=== PATIENT | male | born 1945 | race Caucasian/White ===

== ENCOUNTER 2022-11-19 08:33 | Outpatient (OUT) | payer MEDICARE, OTHER, SELFPAY ==
--- NOTE | 2022-11-19 08:50 | CT_ITS ---
The [address] [address] Patient Name: KIMMY MCARTHUR MRN: [id number] date: 1945 Sex: M Assigned Patient Location: CT Current Patient Location: CT Accession/Order Number: [id number] Exam Date: 11/19/2022 08:43 Report Date: 11/19/2022 11:11 At the request of: TIMOTEO AWAN Procedure: CT lung screening low-dose EXAMINATION: CT lung screening low-dose HISTORY: History Of Tobacco Dependence Z87.891 COMPARISON: 01/06/2022, 2016 TECHNIQUE: Axial, Coronal, and Sagittal images were created without the administration of IV contrast material. Dose reduction techniques were achieved by using automated exposure control and/or adjustment of mA and/or kV according to patient size and/or use of iterative reconstruction technique. FINDINGS: LUNGS: Moderate diffuse centrilobular and mild paraseptal emphysema. Scattered punctate pulmonary nodules the largest having both a solid and groundglass component measuring 6.9 x 5.5 mm in the right middle lobe axial image 113, grossly stable accounting for differences in slice selection from the 2017 exam. No significant new pulmonary nodule or mass PLEURA: No mass, effusion, or pneumothorax. VASCULATURE: No abnormality. RAE: No mass or pathologic adenopathy. MEDIASTINUM: No mass or pathologic adenopathy. CARDIAC: No enlargement or pericardial effusion. Moderate coronary atherosclerosis. Calcifications in contour deformity along the posterior left ventricle, grossly stable from the prior exam measuring 3.2 cm likely representing remote infarct. AORTA: No aortic aneurysm. Extensive atherosclerosis CHEST WALL: No mass or axillary adenopathy BONES: No bone lesion or fracture. LIMITED ABDOMEN: Surgical clips from cholecystectomy. 2 cm soft tissue density medial upper left renal pole, July 10, 2021 indeterminate previously. Cyst OTHER: Negative. CT/CT lung screening low-dose IMPRESSION: Stable emphysema and subcentimeter pulmonary nodules LUNG SCREENING: Lung-RADS Category 2- Benign Appearance or Behavior. Nodules with a very low likelihood of becoming a clinically active cancer due to size or lack of growth. 2. Continue annual screening with LDCT in 12 months. Electronically authenticated by: MIGUEL PLASCENCIA Date: 11/19/2022 11:11
== END 2022-11-19 08:34 | disposition home or self-care (01) ==
LOC: CT 08:33
PROVIDERS: PCP Nurse Practitioner; Visit Provider Nurse Practitioner
DX: Z87.891 Personal history of nicotine dependence (principal)
CPT/HCPCS: 71271

== ENCOUNTER 2022-12-13 12:24 | Outpatient (OUT) | payer MEDICARE, OTHER, SELFPAY ==
[2022-12-13 12:41] LABS: Basophils Percent Auto 0.7 % (0.2-2.0); Eosinophils Absolute Auto 0.3 10^3/uL (0.0-0.7); Eosinophils Percent Auto 4.9 % (0.9-7.0); Hematocrit 36.5 % (42.0-54.0); Hemoglobin 12.3 g/dL (14.0-18.0); Immature Granulocytes Abs Auto 0.03 10^3/uL (0.00-0.03); Immature Granulocytes Pct Auto 0.5 % (0.0-0.5); Lymphocytes Absolute Auto 1.5 10^3/uL (1.2-3.8); Lymphocytes Percent Auto 26.3 % (20.5-60.0); Mean Corpuscular HGB Conc 33.7 g/dL (29.9-35.2); Mean Corpuscular Hemoglobin 31.1 pg (25.9-34.0); Mean Corpuscular Volume 92.2 fL (80.0-94.0); Mean Platelet Volume 9.9 fL (9.5-13.5); Monocytes Absolute Auto 0.4 10^3/uL (0.3-0.8); Monocytes Percent Auto 6.6 % (1.7-12.0); Neutrophils Absolute Auto 3.5 10^3/uL (1.4-6.5); Platelet Count 147 10^3/uL (150-450); Red Blood Count 3.96 10^6/uL (4.70-6.10); Red Cell Distribution Width 12.9 % (11.0-15.0); White Blood Count 5.7 10^3/uL (4.0-11.0)
[2022-12-13 13:15] LABS: Estimated Average Glucose 166 mg/dL; Glycohemoglobin A1C 7.4 % (4.5-6.2)
[2022-12-13 13:36] LABS: Free T4 0.88 ng/dL (0.76-1.46)
[2022-12-13 13:41] LABS: Alanine Aminotransferase 23 U/L (16-63); Albumin Globulin Ratio 1.1; Albumin Level 3.4 g/dL (3.4-5.0); Alkaline Phosphatase 101 U/L (46-116); Anion Gap 10.7; Aspartate Amino Transferase 13 U/L (15-37); BUN Creatinine Ratio 21.3; Bilirubin Total 0.5 mg/dL (0.2-1.0); Calcium 8.5 mg/dL (8.5-10.1); Carbon Dioxide 27.7 mmol/L (21.0-32.0); Chloride 103 mmol/L (98-107); Estimated GFR (African America >60 (>=60); Estimated GFR (Non-African Ame >60 (>=60); Glucose 206 mg/dL (74-106); Potassium 4.4 mmol/L (3.5-5.1); Sodium 137 mmol/L (136-145); Thyroid Stimulating Hormone 2.277 uIU/mL (0.358-3.740); Total Protein 6.4 g/dL (6.4-8.2)
== END 2022-12-13 12:25 | disposition home or self-care (01) ==
LOC: LAB 12:25
PROVIDERS: PCP Nurse Practitioner; Visit Provider Nurse Practitioner
DX: E11.9 Type 2 diabetes mellitus without complications (principal); R53.83 Other fatigue; D64.9 Anemia, unspecified
CPT/HCPCS: 36415; 80053; 83036; 83540; 84439; 84443; 85025

== ENCOUNTER 2022-12-13 12:54 | Outpatient (OUT) | payer MEDICARE, OTHER, SELFPAY ==
--- NOTE | 2022-12-13 13:51 | CA_ITS ---
Patient: KIMMY MCARTHUR Exam Date: 12/13/2022 : 1945 Gender:M Ordering : MARCO CONDON Admission #: [id number] Family : ELO Boyce [facility] Order #: [id number] CLICK HERE TO VIEW EXAM ECHOCARDIOGRAM REPORT PROCEDURE: CA ECHO DOPPLER COMPLETE INDICATIONS: Nonrheumatic Mitral valve regurgitation COMPARISON: None. DESCRIPTION: COMPLETE ECHOCARDIOGRAM Real-time transthoracic echocardiography with 2D, M-mode, spectral and color flow Doppler performed. QUALITY: Technical quality was good. LEFT VENTRICLE: Mild dilatation. Proximal septal hypertrophy (sigmoid septum). LV EF: Global left ventricular systolic function is normal; visually estimated ejection fraction is 55 to 60%. The basal inferior, inferolateral and anterolateral vasquez are akinetic and aneurysmal. DIASTOLIC: Grade 2, moderate diastolic dysfunction. ATRIAL SEPTUM: Inadequately seen. LEFT ATRIUM: Severe dilatation. RIGHT ATRIUM: Mild dilatation. RIGHT VENTRICLE: Normal chamber size. Normal right ventricular systolic function. TRICUSPID VALVE: Normal mobility and thickness. Mild to moderate regurgitation. Mild pulmonary hypertension. RVSP 43mmHg MITRAL VALVE: Normal mobility and thickness. No evidence of mitral valve stenosis. Mild mitral annular calcification. Moderate mitral regurgitation. AORTIC VALVE: Normal trileaflet appearance. No visible sclerosis. Normal leaflet mobility. No evidence of aortic valve stenosis. No aortic regurgitation. AORTIC ROOT: Normal diameter and appearance. PULMONIC VALVE: Normal thickness and mobility. No stenosis. No regurgitation. PERICARDIUM: No evidence of pericardial effusion. IVC: Collapses with inspirations. Mild dilatation measuring 2.4cm. CONCLUSION: 1. Global ventricular systolic function is normal; visually estimated ejection fraction is 55 to 60% 2. Segmental wall motion abnormalities are seen 3. Grade 2, moderate diastolic dysfunction 4. Biatrial enlargement 5. Right ventricle is normal in size and systolic function 6. Mild to moderate tricuspid regurgitation; right ventricular systolic pressure is mildly elevated 7. Moderate mitral regurgitation Adult Echocardiography Procedure Report Left Ventricle LVEDD (3.7 - 5.6 cm): 5.86 cm LVESD (2.2 - 4.0 cm): 5.18 cm LVIVS thickness (0.6 - 1.2 cm): 1.38 cm LVPW thickness (0.5 - 1.0 cm): 0.91 cm e': 0.09 m/s E - e': 9.59 LVOT Max Gradient: 2.93 mm[Hg] LVOT Area (cm2): 0.86 m/s Peak Velocity (LVOT): 0.86 m/s Mean Velocity (LVOT): 0.62 m/s LVOT Diameter 1.90 cm Left Ventricular Ejection Fraction: 62.02 % Left Atrium LA Volume Index (2D A2C): 52.24 ml/m2 Left Atrium Systolic Dimension: 4.25 cm Mitral Valve MV E to A Ratio: 0.96 Mitral Valve A-Wave Peak Velocity: 0.86 m/s Mitral Valve E-Wave Peak Velocity: 0.83 m/s Right Ventricle RV Internal Diastolic Dimension: 3.37 cm Aorta AO Root Diam: 3.40 cm Ascending Ao Diam: 2.99 cm Aortic Valve AoV Area (Peak Jeramy): 1.92 cm2, 1.92 cm2 AoV Area (VTI): 1.84 cm2, 1.84 cm2 Peak Velocity(Antegrade Flow): 1.26 m/s Peak Gradient(Antegrade Flow): 6.34 mm[Hg] Mean Velocity(Antegrade Flow): 0.89 m/s Mean Gradient(Antegrade Flow): 3.58 mm[Hg] Velocity Time Integral: 35.54 cm Tricuspid Valve Peak Velocity (Regurgitant Flow): 2.78 m/s, 2.83 m/s, 2.96 m/s Pulmonic Valve Mean Gradient: 1.88 mm[Hg], 1.32 mm[Hg] Mean Velocity: 0.64 m/s, 0.54 m/s Peak Velocity: 0.84 m/s Peak Gradient: 3.52 mm[Hg], 2.16 mm[Hg] Right Atrium Right Atrium Systolic Pressure: 51.87 ml, 51.87 ml Dictated by: Natasha Campo M.D. on 12/17/2022 at 14:16 Approved by: Natasha Campo M.D. on 12/17/2022 at 14:45
== END 2022-12-13 12:55 | disposition home or self-care (01) ==
LOC: CARD 12:55
PROVIDERS: PCP Nurse Practitioner; Visit Provider Nurse Practitioner
DX: I34.0 Nonrheumatic mitral (valve) insufficiency (principal); I08.1 Rheumatic disorders of both mitral and tricuspid valves
CPT/HCPCS: 93306; 93356

== ENCOUNTER 2023-01-12 06:26 | Outpatient (OUT) | payer MEDICARE, OTHER, SELFPAY ==
--- NOTE | 2023-01-12 06:15 | NM_ITS ---
Patient: KIMMY MCARTHUR Exam Date: 01/12/2023 : 1945 Gender:M Ordering : DR JING CAMPO M.D. Admission #: [id number] Family : ELO Boyce [facility] Order #: [id number] CLICK HERE TO VIEW EXAM RADIOLOGY REPORT PROCEDURE: NM TONE PERF SPECT REST STR COMPARISON: None. INDICATIONS: CORONARY ARTERY DISEASE TECHNIQUE: Exam Description: Stress/Rest one day protocol gated SPECT Rest Imagin.1 mCi Tc-99m Cardiolite IV on 01/12/2023 Stress Imaging 30.9 mCi Tc-99m Cardiolite IV on 01/12/2023 Exercise Protocol: 0.4 mg Lexiscan given IV Heart Rate (bpm): Rest: 54 Max: 77 PMHR: 53 Blood Pressure: Rest: 114/68 Max: 128/66 Symptoms: Rest and peak stress ECG findings were normal and the exercise portion of the study was normal per attending physician Dr. Campo . For more details please see separate cardiac stress test report. FINDINGS: QUALITY OF STUDY: Good. PERFUSION DEFECT: LOCATION: Basal inferior. Mid-inferior. Apical inferior. SIZE: Medium (3-4 segments). SEVERITY: Moderate. TYPE: Mixed. WALL MOTION: Mild hypokinesis: LV SIZE: Enlarged; EDV 127 mL. TID / TCD: None; 0.9 LVEF: Abnormal. Calculated EF 52%. SUMMARY: Myocardial perfusion imaging study has ABNORMAL findings. CONCLUSION: 1. Moderate size moderate severity defect in the inferior wall, RCA distribution with mild redistribution on rest imaging possibly representing some reversible ischemia 2. Dilated left ventricle end-diastolic volume 127 milliliters 3. Low left ventricular ejection fraction of 52% 4. Normal exercise test Dictated by: James Sorto MD on 01/14/2023 at 08:01 Approved by: James Sorto MD on 01/14/2023 at 08:04
[2023-01-12] MEDS: REGADENOSON 0.4 MG/5 ML SYRINGE IV (08:14)
--- NOTE | 2023-01-13 | PCN_ITS ---
CARDIAC STRESS TEST Requesting Physician:? Procedure Date:? 01/13/2023 INDICATION FOR STRESS TEST:? Abnormal prior testing. METHODS:? After risks, benefits and alternatives were explained, written informed consent was obtained.? The patient was brought to the stress lab in a resting and fasting state.? He was connected to the appropriate hemodynamic and electrocardiographic monitoring. Lexiscan 0.4 mg was infused intravenously.? The patient was monitored for the standard duration, then discharged in a stable state.? He was to be transferred to Radiology for nuclear imaging.? There were no complications.? STRESS TEST INFORMATION:? HEMODYNAMICS:? Resting heart rate was 54 beats per minute, increasing to a maximum of 77 beats per minute. Resting blood pressure was 114/68, with a maximum blood pressure of 128/66.? ELECTROCARDIOGRAPHY:? Resting EKG:? Sinus bradycardia, 54 beats per minute, possible inferolateral infarct, age indeterminate.? ST-T wave abnormalities in the inferolateral leads.? Abnormal EKG. During infusion and recovery:? No significant ST-T wave changes are noted.? Infrequent premature ventricular contractions are seen.? FINAL IMPRESSIONS: 1.? No ischemic EKG changes seen on Lexiscan Pharmacological Stress Test in a patient with an abnormal resting EKG. 2.? Nuclear images are to be read, interpreted and reported in a separate dictation. [facility]
== END 2023-01-12 06:27 | disposition home or self-care (01) ==
LOC: NM 06:26
PROVIDERS: PCP Nurse Practitioner; Visit Provider Internal Medicine Interventional Cardiology
DX: R93.1 Abnormal findings on diagnostic imaging of heart and coronary circulation (principal); I25.10 Atherosclerotic heart disease of native coronary artery without angina pectoris
CPT/HCPCS: 78452; 93017; A9500; J2785

== ENCOUNTER 2023-02-22 08:19 | Outpatient (OUT) | payer MEDICARE, OTHER, SELFPAY ==
[2023-02-22 09:04] LABS: Basophils Absolute Auto 0.1 10^3/uL (0.0-0.1); Eosinophils Absolute Auto 0.3 10^3/uL (0.0-0.7); Eosinophils Percent Auto 5.1 % (0.9-7.0); Hematocrit 40.2 % (42.0-54.0); Hemoglobin 13.3 g/dL (14.0-18.0); Immature Granulocytes Abs Auto 0.04 10^3/uL (0.00-0.03); Immature Granulocytes Pct Auto 0.7 % (0.0-0.5); Lymphocytes Absolute Auto 1.8 10^3/uL (1.2-3.8); Lymphocytes Percent Auto 30.3 % (20.5-60.0); Mean Corpuscular HGB Conc 33.1 g/dL (29.9-35.2); Mean Corpuscular Hemoglobin 30.6 pg (25.9-34.0); Mean Corpuscular Volume 92.4 fL (80.0-94.0); Mean Platelet Volume 10.2 fL (9.5-13.5); Monocytes Absolute Auto 0.4 10^3/uL (0.3-0.8); Monocytes Percent Auto 7.5 % (1.7-12.0); Neutrophils Absolute Auto 3.3 10^3/uL (1.4-6.5); Neutrophils Percent Auto 55.4 % (43.0-75.0); Platelet Count 169 10^3/uL (150-450); Red Blood Count 4.35 10^6/uL (4.70-6.10); Red Cell Distribution Width 12.5 % (11.0-15.0); White Blood Count 5.9 10^3/uL (4.0-11.0)
[2023-02-22 09:13] LABS: Anion Gap 9.7; Calcium 8.9 mg/dL (8.5-10.1); Carbon Dioxide 32.3 mmol/L (21.0-32.0); Chloride 104 mmol/L (98-107); Estimated GFR (African America >60 (>=60); Estimated GFR (Non-African Ame >60 (>=60); Glucose 187 mg/dL (74-106); Sodium 142 mmol/L (136-145)
== END 2023-02-22 08:20 | disposition home or self-care (01) ==
LOC: LAB 08:20
PROVIDERS: PCP Nurse Practitioner; Visit Provider Internal Medicine Interventional Cardiology
DX: Z01.818 Encounter for other preprocedural examination (principal)
CPT/HCPCS: 36415; 80048; 85025

== ENCOUNTER 2023-09-30 09:40 | Emergency (ER) | payer MEDICARE, OTHER, SELFPAY ==
[2023-09-30] VITALS (19 sets, daily range): BP systolic 109–157; BP diastolic 60–92; PULSE 52–154; TEMP 36.4; O2SAT 94–98; BMI 23.7
--- NOTE | 2023-09-30 09:50 | XR_ITS ---
The [address] [address] Patient Name: KIMMY MCARTHUR MRN: [id number] date: 1945 Sex: M Assigned Patient Location: ER Current Patient Location: ER Accession/Order Number: [id number] Exam Date: 09/30/2023 09:55 Report Date: 09/30/2023 10:09 At the request of: GEO MORALES Procedure: XR chest 1V EXAMINATION: XR chest 1V HISTORY: Arrhythmia , chest pressure, difficulty taking deep breath COMPARISON: XR chest 09/10/2018 FINDINGS: LUNGS: No significant pulmonary parenchymal abnormalities. VASCULATURE: No increased pulmonary vasculature. PLEURA: No pneumothorax, effusion, or pleural thickening. CARDIAC: No cardiomegaly or cardiac silhouette abnormality. MEDIASTINUM: No visible mass or adenopathy. BONES: No fracture or visible bone lesion. OTHER: Negative. XR/XR chest 1V IMPRESSION: 1. No acute cardiopulmonary process. Stable chest. Electronically authenticated by: SANJAY REECE Date: 09/30/2023 10:09
--- NOTE | 2023-09-30 09:50 | ECG_ITS ---
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
--- NOTE | 2023-09-30 09:50 | ED.GENADUL1 ---
HPI HPI - General Adult General Chief complaint: Chest Pain Stated complaint: SOB, CHEST PAIN Time Seen by Provider: 09/30/23 09:48 Source: patient and family Mode of arrival: walk-in Limitations: no limitations History of Present Illness HPI narrative: Patient here complaining of palpitations. He states it woke him from sleep at approximately 6 AM and has not gotten better. He said recently he has been having some spells that only lasted about 1 minute that were similar today. He does have a history of coronary disease. He had 5 stents placed approximately 20 years ago and he had a new coronary stent last approximately 2 years ago. He has never had atrial fibrillation or arrhythmia. He does take Plavix on a daily basis. He is not having any pain pressure or discomfort in the chest neck or jaw. He does not use oxygen at home he has not been sick with recent viral illnesses or fever. Related Data Home Medications ?Medication ?Instructions ?Recorded ?Confirmed blood sugar diagnostic (OneTouch 09/30/23 09/30/23 Verio test strips) carvedilol 12.5 mg tablet 12.5 mg PO Q12H 09/30/23 09/30/23 clopidogrel 75 mg tablet 75 mg PO DAILY 09/30/23 09/30/23 dapagliflozin propanediol 10 mg 10 mg PO DAILY 09/30/23 09/30/23 tablet (Farxiga) ferrous sulfate 325 mg (65 mg 325 mg PO AC 09/30/23 09/30/23 iron) tablet (FeroSul) insulin detemir U-100 100 unit/mL 35 unit subcut DAILY 09/30/23 09/30/23 (3 mL) subcutaneous pen (Levemir FlexPen) ramipril 5 mg capsule 5 mg PO DAILY 09/30/23 09/30/23 simvastatin 40 mg tablet 40 mg PO DAILY 09/30/23 09/30/23 tamsulosin 0.4 mg capsule 0.4 mg PO DAILY 09/30/23 09/30/23 Allergies Allergy/AdvReac Type Severity Reaction Status Date / Time No Known Drug Allergies Allergy Verified 09/30/23 09:47 Opioid HPI Opioid Management Most Recent Opioid Data: No Data to Display Exam Narrative Exam Narrative: Seen initially on arrival he is awake alert pleasant his is here with him. Skin is warm and dry mucous memories are moist and pink. He says he feels like he swallowed air. He does admit that it is a discomfort in his mid chest. He does not have any nausea vomiting or diaphoresis. He is awake alert Opdyke x 3. His lungs were clear with no wheeze rales or rhonchi. Heart sounds are tachycardic with irregularity consistent with his atrial fibrillation with RVR noted on his twelve-lead monitor. He has no abdominal pain or tenderness. His extremities show no evidence of phlebitis cellulitis swelling or edema. Cognition and neurological function is completely normal. Constitutional Vital Signs, click to edit/add: Last Vital Signs Temp 97.5 F L 09/30/23 09:43 Pulse 70 09/30/23 09:43 Resp 18 09/30/23 09:43 BP 157/92 H 09/30/23 09:43 Pulse Ox 98 09/30/23 09:43 O2 Del Method Room Air 09/30/23 09:43 Course Vital Signs Vital signs: Vital Signs Temperature 97.5 F L 09/30/23 09:43 Pulse Rate 70 09/30/23 09:43 Respiratory Rate 18 09/30/23 09:43 Blood Pressure 157/92 H 09/30/23 09:43 Pulse Oximetry 98 09/30/23 09:43 Oxygen Delivery Method Room Air 09/30/23 09:43 Temperature 97.5 F L 09/30/23 09:43 Pulse Rate 70 09/30/23 09:43 Respiratory Rate 18 09/30/23 09:43 Blood Pressure 157/92 H 09/30/23 09:43 Pulse Oximetry 98 09/30/23 09:43 Oxygen Delivery Method Room Air 09/30/23 09:43 Medical Decision Making [facility] Narrative Medical decision making narrative: This patient with known coronary disease presents with new onset atrial fibrillation. He does take Plavix. He was given 20 mg Cardizem bolus followed by a drip at 10 mg/h. Approximately 10 or 15 minutes after the drip he converted to a sinus rhythm. A repeat twelve-lead EKG was done at that time and shows T wave inversion lead III and aVF and sharp symmetrical T waves lead V2 V3. We will start him on heparin at this time. I contacted his educational consultant in [place] because his troponin is now elevated at 108. He agrees with the need for transfer and the use of heparin. Lab Data Labs: Lab Results 09/30/23 Range/Units 09:50 WBC 8.8 (4.0-11.0) 10^3/uL RBC 4.83 (4.70-6.10) 10^6/uL Hgb 14.7 (14.0-18.0) g/dL Hct 44.2 (42.0-54.0) % MCV 91.5 (80.0-94.0) fL MCH 30.4 (25.9-34.0) pg MCHC 33.3 (29.9-35.2) g/dL RDW 12.9 (11.0-15.0) % Plt Count 166 (150-450) 10^3/uL MPV 10.2 (9.5-13.5) fL Neut % (Auto) 67.0 (43.0-75.0) % Lymph % (Auto) 22.4 (20.5-60.0) % [place] % (Auto) 6.2 (1.7-12.0) % Eos % (Auto) 3.1 (0.9-7.0) % Baso % (Auto) 0.7 (0.2-2.0) % Neut # (Auto) 5.9 (1.4-6.5) 10^3/uL Lymph # (Auto) 2.0 (1.2-3.8) 10^3/uL [place]dwell # (Auto) 0.6 (0.3-0.8) 10^3/uL Eos # (Auto) 0.3 (0.0-0.7) 10^3/uL Baso # (Auto) 0.1 (0.0-0.1) 10^3/uL Abs Immat Gran (auto) 0.05 H (0.00-0.03) 10^3/uL Imm/Tot Granulo (auto) 0.6 H (0.0-0.5) % Sodium 142 (136-145) mmol/L Potassium 4.0 (3.5-5.1) mmol/L Chloride 106 (98-107) mmol/L Carbon Dioxide 27.2 (21.0-32.0) mmol/L Anion Gap 12.8 BUN 17.0 (7.0-18.0) mg/dL Creatinine 1.00 (0.70-1.30) mg/dL Est GFR ( Amer) >60 (>=60) Est GFR (Non-Af Amer) >60 (>=60) BUN/Creatinine Ratio 17.0 Glucose 135 H (74-106) mg/dL Calcium 8.6 (8.5-10.1) mg/dL Total Bilirubin 0.7 (0.2-1.0) mg/dL AST 16 (15-37) U/L ALT 25 (16-63) U/L Alkaline Phosphatase 93 (46-116) U/L Troponin I High Sens 108.7 H* (4.0-76.1) pg/mL NT-Pro-B Natriuret Pep 2900.0 H* (<=1800.0) pg/mL Total Protein 6.9 (6.4-8.2) g/dL Albumin 3.6 (3.4-5.0) g/dL Globulin 3.3 g/dL Albumin/Globulin Ratio 1.1 Discharge Plan Discharge Chief Complaint: Chest Pain Clinical Impression: Non-ST elevated myocardial infarction (non-STEMI) Patient Disposition: [facility] Time of Disposition Decision: 10:53 Mode of Transportation: EMS Prescriptions / Home Meds: No Action clopidogrel 75 mg tablet 75 mg PO DAILY simvastatin 40 mg tablet 40 mg PO DAILY carvedilol 12.5 mg tablet 12.5 mg PO Q12H Print Language: Kinyarwanda Referrals: Marisol Boyce CLINICAL ADMINISTRATIVE COORDINATOR [Primary Care Provider] - 1 week
--- OUTSIDE RECORDS SUMMARY | 2023-09-30 09:55 | XMS_ITS | CCD ---
Author Organization [facility] Care Team Providers Care Javascript Web Developer Name Role Phone MARISOL BOYCE Primary Care Physician Unavaila ble AICHHOLZ, LAST MARKER MARISOL Admitting Unavailable AICHHOLZ, LAST MARKER MARISOL Attending Unavailable AICHHOLZ, LAST MARKER MARISOL Primary Care Unavailable AICHHOLZ, LAST MARKER MARISOL Consulting Unavailable AICHHOLZ, LAST MARKER MARISOL Admitting Unavailable AICHHOLZ, LAST MARKER MARISOL Attending Unavailable AICHHOLZ, LAST MARKER MARISOL Primary Care Unavailable AICHHOLZ, LAST MARKER MARISOL Consulting Unavailable DR SANJAY REECE Consulting Unavailable ROSEANNA, MARCO Admitting Unavailable ROSEANNA, MARCO Attending Unavailable AICHHOLZ, LAST MARKER MARISOL Primary Care Unavailable ROSEANNA, MARCO Consulting Unavailable AICHHOLZ, LAST MARKER MARISOL Admitting Unavailable AICHHOLZ, LAST MARKER MARISOL Attending Unavailable AICHHOLZ, LAST MARKER MARISOL Primary Care Unavailable AICHHOLZ, LAST MARKER MARISOL Consulting Unavailable FLOR, DWAIN Admitting Unavailable FLOR, DWAIN Attending Unavailable AICHHOLZ, LAST MARKER MARISOL Primary Care Unavailable FLOR, DWAIN Consulting Unavailable ELTAHAWY, EHAB Admitting Unavailable ELTAHAWY, EHAB Attending Unavailable ROSEANNA, MARCO Attending Unavailable ROSEANNA, MARCO Attending Unavailable ELTAHAWY, EHAB Referring Unavailable ELTAHAWY, EHAB Referring Unavailable ELTAHAWY, EHAB Referring Unavailable ELTAHAWY, EHAB Attending Unavailable ELTAHAWY, EHAB Attending Unavailable ELTAHAWY, EHAB Attending Unavailable Aichholz HEEL DIPPER, Marisol Unavailable Jessie QUINTANA, Prabhjot Primary Care Provider [phone] ELLA BECKER Referring Unavailable MARISOL BOYCE Primary Care Unavailable MARISOL BOYCE Referring Unavailable MARISOL BOYCE Primary Care Unavailable MARISOL BOYCE Primary Care Physician ELLA BECKER Attending Unavailable Deja Perez Attending Unavailable MRAISOL BOYCE Attending Unavailable MARISOL BOYCE Attending Unavailable MARISOL BOYCE Attending Unavailable Medications Current Medications Medication Drug Class(es) Dates Sig (Normalized) Sig (Original) aspirin 81 mg oral tablet (5 sources) Platelet Aggregation Inhibitor, Nonsteroidal Anti-inflammatory Drug Start: 03-12-2013 take 81 mg by mouth once daily aspirin 81 mg, Oral, Daily, Refills(s) 0, Blood Thinner Start Date: 03/12/13 Status: Ordered take 1 tablet by mouth in the mo rning aspirin 81 MG EC tablet Take 81 mg by mouth in the morning. 0 Active atorvastatin 80 mg oral tablet (2 sources) HMG-CoA Reductase Inhibitor take 1 tablet by mouth in the morning atorvastatin (Lipitor) 80 MG tablet Take 80 mg by mouth in the morning. 0 Active carvedilol 12.5 mg oral tablet (2 sources) alpha-Adrenergic Denice, beta-Adrenergic Denice take 6.25 mg by mouth in the morning carvedilol (Coreg) 12.5 MG tablet Take 6.25 mg by mouth in the morning and 6.25 mg at noon. 0 Active ciprofloxacin 500 mg oral tablet (2 sources) Quinolone Antimicrobial Start: 03-13-20 20 take 1 mg by mouth every twelve hours Cipro 500 mg Tab mg tab(s), Oral, q12hr, Refills(s) 0 Start Date: 03/13/20 Status: Ordered clopidogrel 75 mg oral tablet (5 sources) P2Y12 Platelet Inhibitor Start: 03-12-20 13 End: 06-23-19 24 take 1 tablet by mouth in the morning clopidogrel (Plavix) 75 MG tablet Indications: Coronary artery disease involving [place] coronary artery of [place] heart without angina pectoris (CMS/HCC) , PAD (peripheral artery disease) (CMS/HCC) Take 1 tablet (75 mg) by mouth in the morning. 90 tablet 1 03/25/2023 06/23/2023 Active dapagliflozin 10 mg oral tablet (1 source) Sodium-Glucose Cotransporter 2 Inhibitor Start: 07-11-19 24 take 1 tablet by mouth once daily Farxiga 10 mg oral tablet 10 mg = 1 tab(s), Oral, Daily, Refills(s) 0 Start Date: 07/11/23 Status: Ordered ferrous sulfate 325 mg oral tablet (2 sources) Start: 04-11-19 End: 07-10-19 take 1 tablet by mouth in the morning ferrous sulfate 325 (65 Fe) MG tablet Indications: Iron deficiency anemia, unspecified iron deficiency anemia type Take 1 tablet (325 mg) by mouth in the morning and 1 tablet (325 mg) before bedtime. 180 tablet 1 04/11/2023 07/10/2023 Active 3 ml insulin detemir 100 unt/ml pen injector (5 sources) Insulin Analog Start: 06-13-19 Levemir FlexTouch 100 units/mL subcutaneous solution Refills(s) 0 Start Date: 06/12/20 Status: Ordered Start: 06-12-2020 Levemir FlexTo uch 100 units/mL subcutaneous solution Refills(s) 0 Start Date: 06/12/20 Status: Ordered inject 50 [IU] by lane bcutaneous injection at bedtime insulin detemir (Levemir) 100 UNIT/ML injection Inject 50 Units under the skin at bedtime 0 Active 3 ml insulin glargine 100 unt/ml pen injector (2 sources) Insulin Analog Start: 03-22-2023 insulin glargine (Basaglar KwikPen) 100 UNIT/ML pen Indications: Type 2 diabetes mellitus without complication, with long-term current use of insulin ([facility]) Up to 50 units daily 15 each 1 03/22/2023 Active metFORMIN hydrochloride 1000 mg oral tablet (4 sources) Biguanide Start: 03-12-2013 take 1000 mg by mouth twice daily metformin 1,000 mg, Oral, BID, Refills(s) 0, High blood sugar Start Date: 03/12/13 Status: Ordered Metoprolol (3 sources) beta-Adrenergic Denice Start: 03-12-2013 metoprolol Oral, Daily, Refills(s) 0, High blood pressure Start Date: 03/12/13 Status: Ordered omeprazole 20 mg delayed release oral capsule (2 sources) Proton Pump Inhibitor take 1 capsule by mouth before mealtime omeprazole (PriLOSEC) [address] capsule Take 20 mg by mouth in the morning. Take before meals. Do not crush or chew.. 0 Active ramipril 5 mg oral tablet (5 sources) Angiotensin Converting Enzyme Inhibitor Start: 03-12-2013 take 5 mg by mouth once daily ramipril 5 mg, Oral, Daily, Refills(s) 0, High blood pressure Start Date: 03/12/13 Status: Ordered take 1 capsule by mouth in the m orning ramipril (Altace) 5 MG capsule Take 5 mg by mouth in the morning. 0 Active simvastatin 40 mg oral tablet (3 sources) HMG-CoA Reductase Inhibitor Start: 03-12-2013 take 40 mg by mouth once daily at bedtime simvastatin 40 mg, Oral, Once a day (at bedtime), Refills(s) 0, High cholesterol Start Date: 03/12/13 Status: Ordered SITagliptin 100 mg oral tablet (1 source) Dipeptidyl Peptidase 4 Inhibitor Start: 03-12-2013 take 100 mg by mouth once daily Januvia 100 mg, Oral, Daily, Refill(s) 0, High blood sugar Start Date: 03/12/13 Status: Ordered tamsulosin hydrochloride 0.4 mg oral capsule (5 sources) alpha-Adrenergic Denice Start: 06-18-2022 take 1 capsule by mouth once daily tamsulosin 0.4 mg Cap 0.4 mg = 1 cap(s), Oral, Daily, # 90 cap(s), Refills(s) 3, Pharmacy: [facility] #[id number], 77.8, kg, 06/18/22 9:54:00 EDT, Weight Dosing Start Date: 06/18/22 Status: Ordered Start: 06-18-2021 take 1 capsule by [facility] once daily tamsulosin 0.4 mg Cap 0.4 mg = 1 cap(s), Oral, Daily, # 90 cap(s), Refills(s) 3, Pharmacy: [facility] #[id number], 183, cm, 06/12/20 10:33:00 EDT, Height/Length Dosing, 84.5, kg, 06/12/20 10:33:00 EDT, Weight Dosing Start Date: 06/18/21 Status: Ordered take 1 capsule by [facility] every twenty-four hours at bedtime tamsulosin (Flomax) 0.4 MG 24 hr capsule Take 0.4 mg by mouth at bedtime 0 Active Completed/Discontinued Medications Medication Drug Class(es) Dates Sig (Normalized) Sig (Original) tadalafil 10 mg oral tablet (1 source) Phosphodiesterase 5 Inhibitor Start: 07-11-2023 Cialis 10 mg Tab See Instructions, PRN for erectile dysfunction, 1-2 tab(s) 30-60mins prior to sexual activity. do not exceed 20mg in 48 hrs., # 10 tab(s), Refills(s) 5, Pharmacy: [facility] #[id number], 182, cm, 07/11/23 14:01:00 EDT, Height/Length Dosing, 76, kg, 07/11/23 14:01:00 EDT, Weight Dosing Start Date: 07/11/23 Status: Ordered Problems Active Problems Problem Classification Problem Date Documented Da te Episodic/Chronic Allergic reactions (3 sources) Contact dermatitis due to plants 03-12-2020 Episodic Coronary atherosclerosis and other heart disease (17 sources) Coronary arteriosclerosis; Translations: [History of myocardial infarction] Onset: 06-11-2022 03-12-2020 Chronic Deficiency and other anemia (3 sources) Anemia 03-12-2020 Episodic Deficiency and other anemia (6 sources) Iron deficiency anemia, unspecified; Translations: [IRON DEFICIENCY ANEMIA UNSPECIFIED] Onset: 06-11-2022 Episodic Deficiency and other anemia (2 sources) Iron deficiency anemia; Translations: [Iron deficiency anemia, unspecified] Onset: 04-11-2023 04-11-2023 Episodic Diabetes mellitus without complication (11 sources) Diabetes mellitus; Translations: [Type 2 diabetes mellitus without complications] Onset: 01-06-2022 03-12-2020 Chronic Disorders of lipid metabolism (4 sources) Hyperlipidemia; Translations: [Hyperlipidemia, unspecified] Onset: 06-19-2022 03-12-2020 Chronic Essential hypertension (5 sources) Essential (primary) hypertension; Translations: [Essential hypertension] Onset: 04-30-2022 Chronic Genitourinary symptoms and ill-defined conditions (3 sources) Post-micturition incontinence 03-13-2020 Chronic Genitourinary symptoms and ill-defined conditions (13 sources) Incomplete emptying of bladder; Translations: [Nocturia] Onset: 01-05-2022 03-13-2020 Episodic Heart valve disorders (13 sources) Mitral valve regurgitation; Translations: [Nonrheumatic mitral (valve) insufficiency] Onset: 10-14-2021 03-12-2020 Chronic Hyperplasia of prostate (7 sources) Benign prostatic hypertrophy with outflow obstruction; Translations: [Benign prostatic hyperplasia with lower urinary tract symptoms] Onset: 06-18-2021 Chronic Malaise and fatigue (3 sources) Fatigue 03-12-2020 Episodic Mood disorders (3 sources) Depressive disorder 03-12-2020 Chronic Other aftercare (1 source) Long-term current use of drug therapy; Translations: [long-term (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 of antithrombotics/anti platelets] Onset: 06-18-2022 Episodic Other aftercare (1 source) 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; Translations: [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] Onset: 05-04-2023 Episodic Other and unspecified benign neoplasm (3 sources) Adenomatous polyp of colon 03-12-2020 Episodic Other circulatory disease (2 sources) Disorder of arteries and arterioles, unspecified; Translations: [Disorder of arteries and arterioles, unspecified] Onset: 06-25-2022 Chronic Other connective tissue disease (3 sources) Bursitis of elbow 03-12-2020 Episodic Other diseases of kidney and ureters (2 sources) Urinary tract obstruction; Translations: [Other obstructive and reflux uropathy] Onset: 06-18-2021 Episodic Other diseases of kidney and ureters (1 source) Other obstructive and reflux uropathy; Translations: [Other obstructive and reflux uropathy] Onset: 07-06-2023 Episodic Other inflammatory condition of skin (3 sources) Granuloma annulare 03-12-2020 Episodic Other injuries and conditions due to external causes (3 sources) At low risk for fall 03-12-2020 Episodic Other lower respiratory disease (3 sources) Snoring 03-12-2020 Episodic Other male genital disorders (7 sources) Impotence; Translations: [Male erectile dysfunction, unspecified] Onset: 06-18-2022 03-12-2020 Chronic Other male genital disorders (3 sources) Pain in testicle 03-13-2020 Episodic Other nutritional; endocrine; and metabolic disorders (1 source) Overweight in adulthood with body mass index of 25 or more but less than 30; Translations: [Body mass index (BMI) 25.0-25.9, adult] Onset: 06-18-2021 Episodic Other nutritional; endocrine; and metabolic disorders (3 sources) Body mass index 25-29 - overweight 06-18-2021 Episodic Other screening for suspected conditions (not mental disorders or infectious disease) (3 sources) Abnormal result of other cardiovascular function study; Translations: [Encounter for screening for malignant neoplasm of prostate] Onset: 02-09-2023 Episodic Other skin disorders (3 sources) Night sweats 03-12-2020 Episodic Other skin disorders (3 sources) Papule of skin 03-12-2020 Episodic Pancreatic disorders (not diabetes) (3 sources) Pseudocyst of pancreas 03-12-2020 Episodic Peripheral and visceral atherosclerosis (2 sources) Peripheral vascular disease, unspecified; Translations: [Peripheral vascular disease, unspecified] Onset: 03-25-2023 03-25-2023 Chronic Residual codes; unclassified (3 sources) Obstructive sleep apnea syndrome 03-12-2020 Chronic Residual codes; unclassified (3 sources) Family history of cancer; Translations: [Family history of malignant neoplasm of prostate] Onset: 06-18-2021 Episodic Residual codes; unclassified (3 sources) Family history of prostate cancer 03-13-2020 Episodic Residual codes; unclassified (1 source) Family history of malignant neoplasm of prostate; Translations: [Family history of malignant neoplasm of prostate] Onset: 07-06-2023 Episodic Screening and history of mental health and substance abuse codes (3 sources) Ex-smoker 03-13-2020 Episodic Spondylosis; intervertebral disc disorders; other back problems (3 sources) Lumbar spondylosis 03-12-2020 Chronic Spondylosis; intervertebral disc disorders; other back problems (2 sources) Backache; Translations: [Lumbosacral pain] Onset: 04-11-2023 04-11-2023 Episodic Unclassified (3 sources) Asymptomatic microscopic hematuria 03-13-2020 Unclassified (3 sources) Peripheral arterial disease 03-12-2020 Unclassified (2 sources) Patient encounter status 06-18-2022 Unclassified (1 source) POST COVID-19 CONDITION UNSPECIFIED; Translations: [POST COVID-19 CONDITION UNSPECIFIED] Onset: 06-19-2022 Unclassified (1 source) Post covid-19 condition, unspecified; Translations: [Post covid-19 condition, unspecified] Onset: 04-30-2022 Past or Other Problems Problem Classification Problem Date Documented Da te Episodic/Chronic Abdominal pain (1 source) Epigastric pain; Translations: [EPIGASTRIC PAIN] Onset: 01-09-2022 Episodic Other circulatory disease (2 sources) Orthostatic hypotension; Translations: [Orthostatic hypotension] Onset: 04-30-2022 Episodic Other gastrointestinal disorders (1 source) Diarrhea, unspecified; Translations: [DIARRHEA UNSPECIFIED] Onset: 01-09-2022 Episodic Other lower respiratory disease (3 sources) Other forms of dyspnea; Translations: [OTHER FORMS OF DYSPNEA] Onset: 04-30-2022 Episodic Other nutritional; endocrine; and metabolic disorders (1 source) Abnormal weight loss; Translations: [ABNORMAL WEIGHT LOSS] Onset: 01-09-2022 Episodic Unclassified (1 source) Post covid-19 condition, unspecified; Translations: [Post covid-19 condition, unspecified] Onset: 06-25-2022 Results Test Name Value Interpretation Reference Range Facility Screenson 07-14-2023 Screens [id number]# 1.00TIFF Normal [facility] Screens [id number]# 1.00TIFF [facility] Ambulatory Visit Summaryon 0 07-11-2023 Ambulatory Visit Summary JARON MCARTHUR :1945 Visit Date:07/11/2023 Ambulatory Visit Instructions Your Diagnosis BPH with urinary obstruction ED (erectile dysfunction) Family history of prostate cancer Prostate cancer screening Other obstructive and reflux uropathy Your Care Team Attending Physician - ELLA BECKER PA-C Primary Care Physician - MARISOL BOYCE CNP This Is Your Medications List aspirin clopidogrel dapagliflozin (Farxiga 10 mg oral tablet) insulin detemir (Levemir FlexTouch 100 units/mL subcutaneous solution) metoprolol ramipril simvastatin tamsulosin (tamsulosin 0.4 mg Cap) Procedures Performed Iliofemoral vein stent (02/26/2020), Injection of sacroiliac joint (08/03/2019), Cataract, Cholecystectomy, Placement of stent in cardiac conduit, Shoulder replacement. Discharge Vitals Temperature (Temporal Artery) 36.7 ?C Heart Rate (Peripheral) 67 Respiratory Rate 16 Blood Pressure 135/71 Height 182 cm Height 72 in Weight 76 kg Weight 167.2 lb BMI 22.94 What to do next Scheduled Follow-Up Appointments Tuesday 10:45 AM EDT With: Chris QUINTANA, Deja Henry Where: [facility] Ed Sigala [facility] Lab Reportson 07-11-2023 Lab Reports [id number] .00TIFF Normal [facility] Lab Reports [id number] .00TIFF Normal [facility] Patient Educationon 07-11-19 Patient Education Urology Erectile Dysfunction Erectile dysfunction (ED) is the inability to get or keep an erection in order to have sexual intercourse. ED is considered a symptom of an underlying disorder and is not considered a disease. ED may include: ? Inability to get an erection. ? Lack of enough hardness of the erection to allow penetration. ? Loss of erection before sex is finished. What are the causes? This condition may be caused by: ? Physical causes, such as: ? Artery problems. This may include heart disease, high blood pressure, atherosclerosis, and diabetes. ? Hormonal problems, such as low testosterone. ? Obesity. ? Nerve problems. This may include back or pelvic injuries, multiple sclerosis, Parkinson's disease, spinal cord injury, and stroke. ? Certain medicines, such as: ? Pain relievers. ? Antidepressants. ? Blood pressure medicines and water pills (diuretics). ? Cancer medicines. ? Antihistamines. ? Muscle relaxants. ? Lifestyle factors, such as: ? Use of drugs such as marijuana, cocaine, or opioids. ? Excessive use of alcohol. ? Smoking. ? Lack of physical activity or exercise. ? Psychological causes, such as: ? Anxiety or stress. ? Sadness or depression. ? Exhaustion. ? Fear about sexual performance. ? Guilt. What are the signs or symptoms? Symptoms of this condition include: ? Inability to get an erection. ? Lack of enough hardness of the erection to allow penetration. ? Loss of the erection before sex is finished. ? Sometimes having normal erections, but with frequent unsatisfactory episodes. ? Low sexual satisfaction in either partner due to erection problems. ? A curved penis occurring with erection. The curve may cause pain, or the penis may be too curved to allow for intercourse. ? Never having nighttime or morning erections. How is this diagnosed? This condition is often diagnosed by: ? Performing a physical exam to find other diseases or specific problems with the penis. ? Asking you detailed questions about the problem. ? Doing tests, such as: ? Blood tests to check for diabetes mellitus or high cholesterol, or to measure hormone levels. ? Other tests to check for underlying health conditions. ? An ultrasound exam to check for scarring. ? A test to check blood flow to the penis. ? Doing a sleep study at home to measure nighttime erections. How is this treated? This condition may be treated by: ? Medicines, such as: ? Medicine taken by mouth to help you achieve an erection (oral medicine). ? Hormone replacement therapy to replace low testosterone levels. ? Medicine that is injected into the penis. Your health care provider may instruct you how to give yourself these injections at home. ? Medicine that is delivered with a short applicator tube. The tube is inserted into the opening at the tip of the penis, which is the opening of the urethra. A tiny pellet of medicine is put in the urethra. The pellet dissolves and enhances erectile function. This is also called MUSE (medicated urethral system for erections) therapy. ? Vacuum pump. This is a pump with a ring on it. The pump and ring are placed on the penis and used to create pressure that helps the penis become erect. ? Penile implant surgery. In this procedure, you may receive: ? An inflatable implant. This consists of cylinders, a pump, and a reservoir. The cylinders can be inflated with a fluid that helps to create an erection, and they can be deflated after intercourse. ? A semi-rigid implant. This consists of two silicone rubber rods. The rods provide some rigidity. They are also flexible, so the penis can both curve downward in its normal position and become straight for sexual intercourse. ? Blood vessel surgery to improve blood flow to the penis. During this procedure, a blood vessel from a different part of the body is placed into the penis to allow blood to flow around (bypass) damaged or blocked blood vessels. ? Lifestyle changes, such as exercising more, losing weight, and quitting smoking. Follow these instructions at home: Medicines ? Take [id number] and prescription medicines only as told by your health care provider. Do not increase the dosage without first discussing it with your health care provider. ? If you are using self-injections, do injections as directed by your health care provider. Make sure you avoid any veins that are on the surface of the penis. After giving an injection, apply pressure to the injection site for 5 minutes. ? Talk to your health care provider about how to prevent headaches while taking ED medicines. These medicines may cause a sudden headache due to the increase in blood flow in your body. General instructions ? Exercise regularly, as directed by your health care provider. Work with your health care provider to lose weight, if needed. ? Do not use any products that contain nicotine or tobacco. These products include cig (more content not included)... Normal [facility] Urology Office/Clinic Noteon 07-11-2023 Urology Office/Clinic Note Chief Complaint 1 yr f/u w/ PSA HPI Staff Dr. Perez pt here for 1 yr with PSA. Previous DX: asymptomatic microscopic hematuria, BPH with urinary obstruction, ED, family history of prostate cancer, incomplete bladder emptying, nocturia, post-void dribbling, testicle pain, urinary urgency. Flomax 0.4 mg qd. PSA: 05/29/20 - 3.11 06/08/21 - 3.45 06/23/22- 3.19 Dysuria: denies Incomplete bladder emptying: denies Hematuria: denies Frequency: denies Urgency: denies Nocturia: 1x a night Stream: steady Leaking: denies Post void dripping: denies Wearing pads/ Depends: denies Urge incontinence: denies Stress incontinence: denies Incontinence without Sensory Awareness: denies Abdominal pain: denies Flank pain: denies Sexual complaints: _ Review of Systems PHQ Score Initial Depression Screen Score: 0 SCORE no fever, chills, malaise, myalgia. no rash/lesions. no chest pain, palpitations, or SOB. no abdominal pain, nausea, vomiting. no unilateral calf swelling, redness, pain Physical Exam Vitals & Measurements T: 36.7 ?C(Temporal Artery) HR: 67(Peripheral) RR: 16 BP: 135/71 HT: 72 in HT: 182 cm WT: 76 kg WT: 167.2 lb BMI: 22.94 General: nontoxic, NAD Mouth: moist mucosa Lungs: normal respiratory effort Cardio: regular rate, good distal perfusion Abdomen: nondistended, no suprapubic distention or tenderness, no CVA tenderness Neurologic: Grossly normal Skin: No rashes or suspicious lesions Assessment/Plan UA completed in office today shows no microhematuria or signs of infection. shows glucose but he's on Farxiga so this is expected. 1. BPH with urinary obstruction (N40.1: Benign prostatic hyperplasia with lower urinary tract symptoms) IPSS 3 (2) QOL 1 Pt is currently taking Flomax and is highly satisfied with overall symptom control. We discussed treatment options including medication (Flomax, Proscar, etc) and procedures (TURP, Rezum, Urolift) including risks and benefits of each option. Pt prefers to continue with no changes at this time. Ordered: Body Mass Index (BMI) documented 3008F Complex E&M Add on G2211 Current tobacco non-user 1036F Depression Screening Negative 3352F E&M of Est. Patient Moderate 30-39 Min 05089 Influenza immunization status assessed 1030F Medication list documented in medical record 1159F Most recent diastolic blood pressure <80 mm Hg 3078F Patient screen for fall risk: no falls in last year or 1 fall with no injury in last year 1101F Review of all meds by a prescribing practitioner or clinical pharmacist documented in EHR 1160F Systolic BP 130-139 mm Hg (Most Recent) 3075F Urnls Dip Stick Auto w/o Microscopy POC 11874 2. ED (erectile dysfunction) (N52.9: Male erectile dysfunction, unspecified) KAYE 2 not interested in med management at last ov. reports this has changed. 's health has improved and they'd like to try. previously he tried Viagra 100mg which worked about 50% but caused intolerable headache and was very expensive. Today we discussed all treatment options for ED including oral medications, erectile pumps, intracorporeal injection, and surgical options. We reviewed all of his contributing factors including those that are within his control to change and those which are not. Pt has decided that he would like to try oral medications - risks/benefits, side effects,interactions, and proper use discussed We will start with Cialis 10mg PRN, he can increase to 20mg PRN. He knows not to exceed 20mg per 48hrs. Ordered: Body Mass Index (BMI) documented 3008F Complex E&M Add on G2211 Current tobacco non-user 1036F Depression Screening Negative 3352F E&M of Est. Patient Moderate 30-39 Min 17268 Influenza immunization status assessed 1030F Medication list documented in medical record 1159F Most recent diastolic blood pressure <80 mm Hg 3078F Patient screen for fall risk: no falls in last year or 1 fall with no injury in last year 1101F Review of all meds by a prescribing practitioner or clinical pharmacist documented in EHR 1160F Systolic BP 130-139 mm Hg (Most Recent) 3075F Urnls Dip Stick Auto w/o Microscopy POC 52087 3. Family history of prostate cancer (Z80.42: Family history of malignant neoplasm of prostate) father. PSA: 05/29/20 - 3.11 06/08/21 - 3.45 06/23/22 - 3.14 June 2023 verbal report given ([facility] faxin report over) - 1.13, 34% free RWR discussed dc'ing PSAs. pt opted to continue PSA checks annually and only act if PSA should rise significantly. he still wishes to follow this plan. PSA ordered and printed for pt for next year. Ordered: Body Mass Index (BMI) documented 3008F Complex E&M Add on G2211 Current tobacco non-user 1036F Depression Screening Negative 3352F E&M of Est. Patient Moderate 30-39 Min 07784 Influenza immunization status assessed 1030F Medication list documented in medical record 1159F Most recent diastolic blood pressure <80 mm Hg 3078F Patient screen for fall (more content not included)... Normal [facility] Comment on above: Result Comment: Elec tronically Signed By: ELLA BECKER PA-C\.dominique\Date and Time Signed: 07/11/23 16:23 EDT FREE AND TOTAL PSAon 07-05- 024 % FREE PSA 34.9 Normal [facility] Comment on above: Result Comment: Percent Free PSA has been reported to have the greatest clinical utility when total PSA values are between 4.0 and 10.0 ng/mL. For men with a total PSA in this range, Percent Free PSA values of >25% are strongly associated with normal or benign prostate conditions. Percent Free PSA levels of <10% suggest that prostate cancer is more likely than BPH. For values between 10% and 25%, there is overlap of prostate cancer and BPH. Performed By: #### F TPSA #### [facility] ([id number]) [address] [address] [place] [address] FREE PSA 1.13 ng/mL Normal [facility] Comment on above: Performed By: #### F TPSA #### [facility] ([id number]) [address] [address] [place] [address] PROSTATIC SPEC ANT 3.24 ng/mL Normal 0.00-4.00 [facility] Comment on above: Result Comment: The method used for this test is Magali Flinqer DXI chemiluminescent immunoassay. Values obtained by different assay methods cannot be used interchangeably. Performed By: #### F TPSA #### [facility] ([id number]) [address] [address] CBC AND AUTO DIFFon 05-04-19 24 ABSOLUTE BASOPHIL 0.0 X10E9/L Normal 0.0-0.2 [facility] Comment on above: Performed By: #### 2 498-4, 39358-8, 227-4, CBCA, CMP #### [facility] ([id number]) [address] [address] ABSOLUTE NEUTROPHIL 3.8 X10E9/L Normal 1.5-6.6 [facility] Comment on above: Performed By: #### 2 498-4, 83094-7, 2275-4, CBCA, CMP #### [facility] ([id number]) [address] [address] Basophils/100 WBC (Bld) 0.7 % Normal [facility] Comment on above: Performed By: #### 2 498-4, 03148-4, 2276-4, CBCA, CMP #### [facility] ([id number]) [address] [address] [place] [address] Eosinophils (Bld) [#/Vol] 0.3 10*3/uL Normal 0.0-0.4 [facility] Comment on above: Performed By: #### 2 498-4, 36033-0, 2275-4, CBCA, CMP #### [facility] ([id number]) [address] [address] Eosinophils/100 WBC (Bld) 4.1 % Normal [facility] Comment on above: Performed By: #### 2 498-4, 88389-4, 2275-06, CBCA, CMP #### [facility] ([id number]) [address] [address] Erythrocyte distribution width (RBC) [Ratio] 13.4 % Normal 11.5-15.0 [facility] Comment on above: Performed By: #### 2 498-4, 99094-3, 2275-06, CBCA, CMP #### [facility] ([id number]) [address] [address] Hematocrit (Bld) [Volume fraction] 39.3 % Normal 39-49 [facility] Comment on above: Performed By: #### 2 498-4, 71233-0, 2275-06, CBCA, CMP #### [facility] ([id number]) [address] [address] Hemoglobin (Bld) [Mass/Vol] 13.5 g/dL Normal 13.0-17.0 [facility] Comment on above: Performed By: #### 2 498-4, 00300-9, 2275-4, CBCA, CMP #### [facility] ([id number]) [address] [address] Lymphocytes (Bld) [#/Vol] 2.4 10*3/uL Normal 1.0-3.5 [facility] Comment on above: Performed By: #### 2 498-4, 41689-9, 2275-06, CBCA, CMP #### [facility] ([id number]) [address] [place] [address] Lymphocytes/100 WBC (Bld) 34.3 % Normal [facility] Comment on above: Performed By: #### 2 498-4, 96924-4, 2275-06, CBCA, CMP #### [facility] ([id number]) [address] [place] [address] MCH (RBC) [Entitic mass] 30.6 pg Normal 27-34 [facility] Comment on above: Performed By: #### 2 498-4, 41988-8, 2275-06, CBCA, CMP #### [facility] ([id number]) [address] [place] [address] MCHC (RBC) [Mass/Vol] 34.3 g/dL Normal 32-36 [facility] Comment on above: Performed By: #### 2 498-4, 50678-9, 2275-06, CBCA, CMP #### [facility] ([id number]) [address] [place] [address] MCV (RBC) [Entitic vol] 89 fL Normal 80-100 [facility] Comment on above: Performed By: #### 2 498-4, 62647-9, 2275-06, CBCA, CMP #### [facility] ([id number]) [address] [place] [address] Monocytes (Bld) [#/Vol] 0.5 10*3/uL Normal 0-0.9 [facility] Comment on above: Performed By: #### 2 498-4, 56435-8, 2276-4, CBCA, CMP #### [facility] ([id number]) [address] [place] [address] Monocytes/100 WBC (Bld) 7.3 % Normal [facility] Comment on above: Performed By: #### 2 498-4, 20833-7, 2275-4, CBCA, CMP #### [facility] ([id number]) [address] [place] [address] Neutrophils/100 WBC (Bld) 53.6 % Normal [facility] Comment on above: Performed By: #### 2 498-4, 47224-1, 2275-4, CBCA, CMP #### [facility] ([id number]) [address] [place] [address] Platelet mean volume (Bld) [Entitic vol] 8.1 fL Normal 7-12 [facility] Comment on above: Performed By: #### 2 498-4, 03253-7, 2275-4, CBCA, CMP #### [facility] ([id number]) [address] [place] [address] Platelets (Bld) [#/Vol] 169 10*3/uL Normal 150-450 [facility] Comment on above: Performed By: #### 2 498-4, 67029-1, 2275-4, CBCA, CMP #### [facility] ([id number]) [address] [place] [address] RBC COUNT 4.41 X10E12/L Normal 4.10-5.70 [facility] Comment on above: Performed By: #### 2 498-4, 31714-7, 2275-4, CBCA, CMP #### [facility] ([id number]) [address] [place] [address] WBC (Bld) [#/Vol] 7.0 10*3/uL Normal 4.0-11.0 [facility] Comment on above: Performed By: #### 2 498-4, 47344-1, 227-4, CBCA, CMP #### [facility] ([id number]) [address] [place] [address] COMPREHENSIVE METABOLIC PANE Aaron 05-04-2023 Albumin [Mass/Vol] 4.0 g/dL Normal 3.2-5.3 [facility] Comment on above: Performed By: #### 2 498-4, 04668-7, 2275-4, CBCA, CMP #### [facility] ([id number]) [address] [place] [address] ALP [Catalytic activity/Vol] 89 U/L Normal 39-130 [facility] Comment on above: Performed By: #### 2 498-4, 09183-2, 2275-4, CBCA, CMP #### [facility] ([id number]) [address] [place] [address] ALT [Catalytic activity/Vol] 15 U/L Normal 0-40 [facility] Comment on above: Performed By: #### 2 498-4, 55487-0, 2275-4, CBCA, CMP #### [facility] ([id number]) [address] [place] [address] Anion gap [Moles/Vol] 9 mmol/L Normal 5-15 [facility] Comment on above: Performed By: #### 2 498-4, 81266-6, 227-4, CBCA, CMP #### [facility] ([id number]) [address] [place] [address] AST [Catalytic activity/Vol] 13 U/L Normal 0-41 [facility] Comment on above: Performed By: #### 2 498-4, 17754-0, 227-4, CBCA, CMP #### [facility] ([id number]) [address] [address] [place] [address] Bilirubin [Mass/Vol] 1.1 mg/dL Normal 0.3-1.2 [facility] Comment on above: Performed By: #### 2 498-4, 13323-0, 2275-4, CBCA, CMP #### [facility] ([id number]) [address] [address] [place] [address] Calcium [Mass/Vol] 8.9 mg/dL Normal 8.5-10.5 [facility] Comment on above: Performed By: #### 2 498-4, 15335-5, 2275-06, CBCA, CMP #### [facility] ([id number]) [address] [address] [place] [address] Chloride [Moles/Vol] 104 mmol/L Normal 98-109 [facility] Comment on above: Performed By: #### 2 498-4, 62608-6, 2275-06, CBCA, CMP #### [facility] ([id number]) [address] [address] [place] [address] CO2 [Moles/Vol] 28 mmol/L Normal 22-32 [facility] Comment on above: Performed By: #### 2 498-4, 99046-1, 2275-4, CBCA, CMP #### [facility] ([id number]) [address] [address] [place] [address] Creatinine [Mass/Vol] 0.80 mg/dL Normal 0.60-1.30 [facility] Comment on above: Result Comment: METH OD TRACEABLE TO IDMS STANDARD Performed By: #### 2 498-4, 14599-5, 2275-4, CBCA, CMP #### [facility] ([id number]) [address] [address] [place] [address] eGFR (CKD-EPI) NON-RACE DEPENDENT >90 Normal >59 [facility] Comment on above: Result Comment: Reported eGFR is based on the CKD-EPI 2020 equation that does not use a race coefficient. Performed By: #### 2 498-4, 69800-0, 2275-4, CBCA, CMP #### [facility] ([id number]) [address] [place] [address] Glucose [Mass/Vol] 90 mg/dL Normal 65-99 [facility] Comment on above: Performed By: #### 2 498-4, 23226-9, 2275-4, CBCA, CMP #### [facility] ([id number]) [address] [place] [address] Potassium [Moles/Vol] 3.2 mmol/L Low 3.5-5.0 [facility] Comment on above: Performed By: #### 2 498-4, 89742-6, 2275-4, CBCA, CMP #### [facility] ([id number]) [address] [place] [address] Protein [Mass/Vol] 6.3 g/dL Normal 6.0-8.0 [facility] Comment on above: Performed By: #### 2 498-4, 30600-2, 2275-, CBCA, CMP #### [facility] ([id number]) [address] [place] [address] Sodium [Moles/Vol] 141 mmol/L Normal 134-146 [facility] Comment on above: Performed By: #### 2 498-4, 15983-1, 2275-4, CBCA, CMP #### [facility] ([id number]) [address] [place] [address] Urea nitrogen [Mass/Vol] 20 mg/dL Normal 5-27 [facility] Comment on above: Performed By: #### 2 498-4, 48416-8, 2276-4, CBCA, CMP #### [facility] ([id number]) [address] [place] [address] Comprehensive metabolic pane [facility] 05-04-2023 Albumin [Mass/Vol] 4.0 g/dL 3.2 - 5.3 g/dL [facility] ALP [Catalytic activity/Vol] 89 U/L 39 - 130 U/L [facility] ALT No additional P-5'-P [Catalytic activity/Vol] 15 U/L 0 - 40 U/L [facility] Anion gap [Moles/Vol] 9 mmol/L 5 - 15 mmol/L [facility] AST [Catalytic activity/Vol] 13 U/L 0 - 41 U/L [facility] Bilirubin [Mass/Vol] 1.1 mg/dL 0.3 - 1 .2 mg/dL [facility] Calcium [Mass/Vol] 8.9 mg/dL 8.5 - 10. 5 mg/dL [facility] Chloride [Moles/Vol] 104 mmol/L 98 - 10 9 mmol/L [facility] CO2 [Moles/Vol] 28 mmol/L 22 - 32 mmol/L [facility] Creatine [Mass/Vol] 0.80 mg/dL 0.60 - 1 .30 mg/dL [facility] Comment on above: METHOD TRACEABLE TO [facility] STANDARD GFR/1.73 sq M.predicted among non-blacks MDRD (S/P/Bld) [Vol rate/Area] mL/min/{1.73_m2} - [facility] Comment on above: Reported eGFR is based on the CKD-EPI 2020 equation that does not use a race coefficient. PERFORMED AT [facility] [address],[place] [address] Glucose [Mass/Vol] 90 mg/dL 65 - 99 mg/dL [facility] Potassium [Moles/Vol] 3.2 mmol/L Low 3.5 - 5.0 mmol/L [facility] Protein [Mass/Vol] 6.3 g/dL 6.0 - 8.0 g/dL [facility] Sodium [Moles/Vol] 141 mmol/L 134 - 146 mmol/L [facility] Urea nitrogen [Mass/Vol] 20 mg/dL 5 - 27 mg/dL [facility] FERRITINon 05-04-2023 Ferritin [Mass/Vol] 99 ng/mL Normal 24-336 [facility] Comment on above: Performed By: #### 2 498-4, 58002-8, 2275-4, CBCA, CMP #### [facility] ([id number]) [address] [place] [address] HGB A1C (GLYCO-HGB)on 2023 Glucose [Mass/Vol] 226 mg/dL Normal [facility] Comment on above: Performed By: #### 2 498-4, 39853-9, 2275-06, CBCA, CMP #### [facility] ([id number]) [address] [place] [address] HbA1c (Bld) [Mass fraction] 9.5 % High 4.4-5.6 [facility] Comment on above: Result Comment: NOTE ADA Guidelines Result HgbA1c Normal : less than 5.7 % Prediabetes : 5.7 % to 6.4 % Diabetes : > 6.4 % Use with caution in patients with abnormal hemoglobin variants as the half-life of red blood cells and in vivo glycation rates are affected. Performed By: #### 2 498-4, 06240-9, 4, CBCA, CMP #### [facility] ([id number]) [address] [place] [address] IRONon 05-04-2023 Iron [Mass/Vol] 54 ug/dL Normal 50-212 [facility] Comment on above: Performed By: #### 2 498-4, 40369-0, 2275-4, CBCA, CMP #### [facility] ([id number]) [address] [place] [address] Lipid 1996 panelon Cholesterol [Mass/Vol] 104 mg/dL Low 150-200 [facility] Comment on above: Performed By: #### 2 498-4, 10561-0, 4, CBCA, CMP #### [facility] ([id number]) [address] [place] [address] Cholesterol in HDL [Mass/Vol] 42 mg/dL Normal >39 [facility] Comment on above: Result Comment: HDL <40 mg/dL - High Risk HDL > or = 40mg/dL- Desirable HDL >60 mg/dL - Negative Risk Performed By: #### 2 498-4, 25947-7, 2275-06, CBCA, CMP #### [facility] ([id number]) [address] [place] [address] Cholesterol in LDL [Mass/Vol] 37 mg/dL Normal <130 [facility] Comment on above: Result Comment: LDL <100 mg/dL - Desirable LDL >160 mg/dL - High Risk Performed By: #### 2 498-4, 18614-3, 4, CBCA, CMP #### [facility] ([id number]) [address] [place] [address] Cholesterol in VLDL [Mass/Vol] 25 mg/dL Normal 0-30 [facility] Comment on above: Performed By: #### 2 498-4, 12249-1, 2275-4, CBCA, CMP #### [facility] ([id number]) [address] [place] [address] CHOLESTEROL:HDL 2.5 Normal 1.0-5.0 [facility] Comment on above: Performed By: #### 2 498-4, 45114-9, 2276-4, CBCA, CMP #### [facility] ([id number]) [address] [facility] [place] [address] Triglyceride [Mass/Vol] 127 mg/dL Normal 27-150 [facility] Comment on above: Performed By: #### 2 498-4, 31963-8, 2276-4, CBCA, CMP #### [facility] ([id number]) [address] [place] [address], [facility] [address] [place] [address] MICROALBUMIN - ALBUMIN:CREAT ININE URINE RATIOon 05-04-2023 ALB/CREAT RATIO NOT CALCULATED Normal 0.0-30.0 [facility] Comment on above: Result Comment: Result for Albumin/Creatinine Ratio cannot be reliably calculated because urine albumin and or urine creatinine is below the detection limit of the assay. Performed By: #### M ALBU #### [facility] ([id number]) [address] [facility], [address] [place] [address] Albumin DL <= 20 mg/L (U) [Mass/Vol] mg/dL Normal 0.0-1.9 [facility] Comment on above: Performed By: #### M ALBU #### [facility] ([id number]) [address] [place] [address] URINE CREAT 108.56 mg/dL Normal [facility] Comment on above: Performed By: #### M ALBU #### [facility] ([id number]) [address] [place] [address], [facility] [address] [place] [address] No Panel Informationon 05-04 Interpretation and review of laboratory results Abnormal [facility] URINALYSISon 05-04-2023 Bilirubin Ql (U) Negative Normal NEG [facility] Comment on above: Performed By: #### M ALBU #### [facility] ([id number]) [address] [place] [address] [address] [place] [address] BLOOD/HGB Negative Normal NEG [facility] Comment on above: Performed By: #### M ALBU #### [facility] ([id number]) [address] [place] [address] Color (U) YELLOW Normal YELLOW [facility] Comment on above: Performed By: #### M ALBU #### [facility] ([id number]) [address] [place] [address] Glucose Ql (U) >1000 Abnormal NEG [facility] Comment on above: Performed By: #### M ALBU #### [facility] ([id number]) [address] [place] [address] Hyaline casts LM Ql (Urine sed) 1 /lpf Normal 0-2 [facility] Comment on above: Performed By: #### M ALBU #### [facility] ([id number]) [address] [place] [address] Ketones Ql (U) Negative Normal NEG [facility] Comment on above: Performed By: #### M ALBU #### [facility] ([id number]) [address] [place] [address] Leukocyte esterase Test strip Ql (U) Negative Normal NEG [facility] Comment on above: Result Comment: HIGH CONCENTRATIONS OF GLUCOSE MAY DECREASE THE REACTIVITY OF THE DIPSTICK LEUKOCYTE TEST PAD. Performed By: #### M ALBU #### [facility] ([id number]) [address] [place] [address] MUCOUS PRESENT Abnormal NONE [facility] Comment on above: Performed By: #### M ALBU #### [facility] ([id number]) [address] [place] [address] Nitrite Ql (U) Negative Normal NEG [facility] Comment on above: Performed By: #### M ALBU #### [facility] ([id number]) [address] [facility], [address] [place] [address] pH (U) 5.5 [pH] Normal 5.0-8.5 [facility] Comment on above: Performed By: #### M ALBU #### [facility] ([id number]) [address] [facility], [address] [place] [address] Protein Ql (U) Trace Abnormal NEG [facility] Comment on above: Performed By: #### M ALBU #### [facility] ([id number]) [address] [facility] [address] [place] [address] R.B.CELLS 1 /hpf Normal 0-5 [facility] Comment on above: Performed By: #### M ALBU #### [facility] ([id number]) [address] [place] [address] [address] [place] [address] Specific gravity (U) [Rel density] 1.023 Normal 1.003-1.035 [facility] Comment on above: Performed By: #### M ALBU #### [facility] ([id number]) [address] [place] [address] [address] [place] [address] SQUAMOUS EPITHELIUM <1 Normal 0-5 [facility] Comment on above: Performed By: #### M ALBU #### [facility] ([id number]) [address] [place] [address], [address] [place] [address] TURBIDITY CLEAR Normal CLEAR [facility] Comment on above: Performed By: #### M ALBU #### [facility] ([id number]) [address] [place] [address] [address] [place] [address] Urobilinogen (U) [Mass/Vol] mg/dL Normal <1.1 [facility] Comment on above: Performed By: #### M ALBU #### [facility] ([id number]) [address] [place] [address], [address] [place] [address] W.B.CELLS 1 /hpf Normal 0-5 [facility] Comment on above: Performed By: #### M MARTINEZ #### [facility] ([id number]) [address] [place] [address], [address] [place] [address] Urinalysis, manual onlyon Epithelial cells Auto (Urine sed) [#/Area] <1 [facility] Glucose (U) [Mass/Vol] mg/dL Abnormal Negative mg/dL [facility] Hemoglobin Auto test strip Ql (U) Negative Negative [facility] Hyaline casts (Urine sed) [#/Area] 1 /[LPF] [facility] Ketones (U) [Mass/Vol] Negative Negative mg/dL [facility] Leukocyte esterase Auto test strip Ql (U) Negative Negative [facility] Healthcare Comment on above: HIGH CONCENTRATIONS OF GLUCOSE MAY DECREASE THE REACTIVITY OF THE DIPSTICK LEUKOCYTE TEST PAD. Mucus Ql (Urine sed) PRESENT Abnormal NONE [facility] Nitrite Auto test strip Ql (U) Negative Negative [facility] Protein (U) [Mass/Vol] Trace Abnormal Negative mg/dL [facility] RBC Auto (Urine sed) [#/Area] 1 [facility] Specific gravity Refractometry automated (U) [Rel density] 1.023 1.003 - 1.035 [facility] Turbidity Ql (U) CLEAR CLEAR [facility] Urobilinogen Qn (U) <1.1 NINF [facility] WBC Auto (Urine sed) [#/Area] 1 [facility] Healthcare Office Visiton 04-18-2023 Follow-up visit [id number] Jaron Mcarthur 1945 M Date Provider Department Center 04/18/2023 Kacie-NATASHA CAMPO CARD [facility] Family History Problem Relation Age of Onset Cancer Father Diabetes Father Family Status - Relation Status Age at Father Level of Service:27200 [place] OFFICE/OUTPATIENT ESTABLISHED LOW MDM 20 MIN Normal [facility] Ynes 02-28-2023 ANES - Attestation signed by Natasha Campo MD at 02/28/2023 11:53 AM Natasha Campo MD, MPH, [facility], [facility], [facility] Interventional Cardiology Pager Email: [email or web address] Patient: Jaron Mcarthur Procedure Information Date/Time: 02/28/23929 Procedure: TRANSESOPHAGEAL ECHO (HARMONY) Location: [facility] Heart and Vascular Center Vascular Lab Clinical information reviewed: Tobacco Med Hx Surg Hx Fam Hx Physical Exam Airway Mallampati: III TM distance: <3 FB Neck ROM: full Cardiovascular Rhythm: regular Rate: normal Dental Pulmonary - normal exam Abdominal - normal exam Abdomen: soft Anesthesia Plan ASA 3 other (Conscious sedation) Anesthetic plan and risks discussed with patient. Use of blood products discussed with patient who consented to blood products. Plan discussed with fellow. Additional Equipment Requests Normal [facility] ANES - Attestation signed by Cecilia Peralta MD at 02/28/2023 6:33 PM By using the attestations below, the signing clinician agrees that I have read and verify that the documentation has been personally reviewed by me and ensure that the documentation accurately reflects the encounter. GC: I personally saw this patient on the day of the encounter, performed the menjivar portion(s) of the service and participated in the management and confirm the resident's documentation. Please note there may be an additional personal documentation from me. Patient: Jaron Mcarthur Procedure Information Date/Time: 02/28/23929 Procedure: TRANSESOPHAGEAL ECHO (HARMONY) Location: [facility] Heart and Vascular Center Vascular Lab Clinical information reviewed: upads Physical Exam Airway Mallampati: III TM distance: <3 FB Neck ROM: full Cardiovascular Rhythm: regular Rate: normal Dental Pulmonary - normal exam Abdominal - normal exam Abdomen: soft Anesthesia Plan ASA 3 other (Conscious sedation) Anesthetic plan and risks discussed with patient. Use of blood products discussed with patient who consented to blood products. Plan discussed with fellow. Additional Equipment Requests Normal [facility] HPon 02-28-2023 - Attestation signed by Natasha Campo MD at 02/28/2023 11:53 AM Natasha Campo MD, MPH, [facility], [facility], [facility] Interventional Cardiology Pager Email: [email or web address] History Of Present Illness Jaron Mcarthur is a 77 y.o. male for elective HARMONY and heart catheterization for Moderate to severe MR and moderate perfusion defect in the inferior wall. Past medical history of coronary artery disease and remote stent placement Was seen in cardiology clinic for MR assessment in 12/29/22. He currently is asymptomatic with no chest pain, shortness of breath or other cardiovascular symptoms, overall. He was asymptomatic prior to his previous cardiac problems. He was ordered stress test due to Segmental wall motion abnormalities seen on TTE 11/2022. Stress test in 01/14/23 was positive for moderate size inferior wall perfusion defect. Past Medical History He has a past medical history of Carotid artery disorder ([facility]), Coronary artery disease, Diabetes mellitus ([facility]), Heart valve disease, Hypertension, and PAD (peripheral artery disease) ([facility]). Surgical History He has a past surgical history that includes CTA aorta and bilateral iliofemoral runoff w and/or wo IV contrast (02/11/2020); CTA neck w and wo IV contrast (03/08/2021); Cataract extraction; Cholecystectomy; Shoulder surgery; Cardiac catheterization; Vascular surgery; and Carotid endarterectomy. Social History He reports that he quit smoking about 3 years ago. His smoking use included cigarettes. He has been exposed to tobacco smoke. He has never used smokeless tobacco. He reports current alcohol use. He reports that he does not use drugs. Allergies Patient has no known allergies. Medications Medications Prior to Admission Medication Sig Dispense Refill Last Dose aspirin 81 mg EC tablet Take 81 mg by mouth in the morning. atorvastatin (Lipitor) 80 mg tablet Take 1 tablet (80 mg) by mouth at bedtime. 90 tablet 3 carvedilol (Coreg) 12.5 mg tablet Take 1 tablet (12.5 mg) by mouth with breakfast and with evening meal. 180 tablet 3 clopidogrel (Plavix) 75 mg tablet Take 1 tablet (75 mg) by mouth once daily as directed. 90 tablet 3 ferrous sulfate 325 (65 Fe) MG tablet FeroSul 325 mg (65 mg iron) tablet TAKE 1 TABLET BY MOUTH TWICE DAILY insulin detemir (Levemir FlexPen) 100 unit/mL (3 mL) pen 35 Units at bedtime. metFORMIN (Glucophage) 1,000 mg tablet Take 1,000 mg by mouth with breakfast. ramipril (Altace) 5 mg capsule Take 1 capsule (5 mg) by mouth once daily as directed. 90 capsule 3 tamsulosin (Flomax) 0.4 mg 24 hr capsule Take 0.4 mg by mouth in the morning. Review of Systems All other systems reviewed and are negative. Physical Exam Constitutional: Appearance: Normal appearance. HENT: Head: Normocephalic and atraumatic. Mouth/Throat: Mouth: Mucous membranes are moist. Eyes: Pupils: Pupils are equal, round, and reactive to light. Cardiovascular: Rate and Rhythm: Normal rate and regular rhythm. Pulmonary: Effort: Pulmonary effort is normal. Abdominal: General: Abdomen is flat. Skin: General: Skin is warm. Capillary Refill: Capillary refill takes less than 2 seconds. Neurological: General: No focal deficit present. Mental Status: He is alert and oriented to person, place, and time. Last Recorded Vitals Blood pressure 140/72, pulse 60, resp. rate 16, SpO2 95 %. Assessment/Plan Coronary atherosclerosis - silent ischemia in the past Mitral valve regurgitation; moderate Moderate diastolic dysfunction Essential hypertension Diabetes mellitus Moderate COPD Peripheral arterial disease s/p surgical and endovascular intervention with Dr. Javed Tobacco dependence syndrome Positive stress test - plan for coronary angiogram for further assessment - procedure's risks and benefits of the procedure was explained in details and he agreed to proceed forward with the testing - further recs pending cath results Normal [facility] HP - Attestation signed by Cecilia Peralta MD at 02/28/2023 6:32 PM By using the attestations below, the signing clinician agrees that I have read and verify that the documentation has been personally reviewed by me and ensure that the documentation accurately reflects the encounter. GC: I personally saw this patient on the day of the encounter, performed the menjivar portion(s) of the service and participated in the management and confirm the resident's documentation. Please note there may be an additional personal documentation from me. History Of Present Illness Jaron Mcarthur is a 77 y.o. male for elective HARMONY and heart catheterization for Moderate to severe MR and moderate perfusion defect in the inferior wall. Past Medical History He has a past medical history of Carotid artery disorder ([facility]), Coronary artery disease, Diabetes mellitus ([facility]), Heart valve disease, Hypertension, and PAD (peripheral artery disease) ([facility]). Surgical History He has a past surgical history that includes CTA aorta and bilateral iliofemoral runoff w and/or wo IV contrast (02/11/2020); CTA neck w and wo IV contrast (03/08/2021); Cataract extraction; Cholecystectomy; Shoulder surgery; Cardiac catheterization; Vascular surgery; and Carotid endarterectomy. Social History He reports that he quit smoking about 3 years ago. His smoking use included cigarettes. He has been exposed to tobacco smoke. He has never used smokeless tobacco. He reports current alcohol use. He reports that he does not use drugs. Allergies Patient has no known allergies. Medications (Not in a hospital admission) Vascular US ankle brachial index (FADY) without exercise 03/03/2022 [id number] Final Review of Systems All other systems reviewed and are negative. Physical Exam Constitutional: Appearance: Normal appearance. HENT: Head: Normocephalic and atraumatic. Mouth/Throat: Mouth: Mucous membranes are moist. Eyes: Pupils: Pupils are equal, round, and reactive to light. Cardiovascular: Rate and Rhythm: Normal rate and regular rhythm. Pulmonary: Effort: Pulmonary effort is normal. Abdominal: General: Abdomen is flat. Skin: General: Skin is warm. Capillary Refill: Capillary refill takes less than 2 seconds. Neurological: General: No focal deficit present. Mental Status: He is alert and oriented to person, place, and time. Last Recorded Vitals Blood pressure 144/59, pulse 55, resp. rate 17, SpO2 98 %. Assessment/Plan Active Problems: There are no active Hospital Problems. Risks and benefits of the procedure was explained in details and he agreed to proceed forward with the testing. [facility] Fly 02-28-2023 [place] RN educated pt on d/ c instructions. RN encouraged pt to voice any questions or concerns. Pt verbalizes no questions or concerns at this time. Pt was wheeled off of unit with all of belongings. [facility] NURSNOTE Bedside swallow stud y completed and passed. [facility] Orders Onlyon 02-09-2023 Orders Only [id number] Jaron Mcarthur 1945 Date Provider Department Center 02/09/2023 JENNIFFER GAYTAN Family History Problem Relation Age of Onset Cancer Father Diabetes Father Family Status - Relation Status Age at Father [facility] Office Visiton 12-29-2022 Follow-up visit [id number] Jaron Mcarthur 1945 Date Provider Department Center 12/29/2022 NATASHA FAGAN Family History Problem Relation Age of Onset Cancer Father Diabetes Father Family Status - Relation Status Age at Father Level of Service:71362 [place] OFFICE/OUTPATIENT ESTABLISHED MOD MDM 30-39 MIN [facility] Office Visiton 09-20-2022 Follow-up visit [id number] Jaron Mcarthur 1945 Date Provider Department Center 09/20/2022 NATASHA FAGAN Family History Problem Relation Age of Onset Cancer Father Diabetes Father Family Status - Relation Status Age at Father Level of Service:77702 [place] OFFICE/OUTPATIENT ESTABLISHED MOD MDM 30-39 MIN [facility] Orders Onlyon 09-20-2022 Orders Only [id number] Jaron Mcarthur 1945 Date Provider Department Center 09/20/2022 JENNIFFER GAYTAN Family History Problem Relation Age of Onset Cancer Father Diabetes Father Family Status - Relation Status Age at Father [facility] 36on 08-16-2022 36 Patient's PCP's office called and wanted to know if there was any objection from a cardiac standpoint on starting him on Farxiga. Please advise. Thanks. [facility] Office Visiton 06-25-2022 Follow-up visit [id number] Jaron Mcarthur 1945 M Date Provider Department Center 06/25/2022 MARCO GASPAR CARD [facility] Family History Problem Relation Age of Onset Cancer Father Diabetes Father Family Status - Relation Status Age at Father Level of Service:02551 [place] OFFICE/OUTPATIENT ESTABLISHED MOD MDM 30-39 MIN Reason for Visit and Comments: Follow-up [006764] - Echo follow up - no other symptoms Normal [facility] Orders Onlyon 06-24-2022 Orders Only [id number] Jaron Mcarthur [place] 1945 M Date Provider Department Center 06/24/2022 KACEY HERRERA MP ORTHO MPORTHO Family History Problem Relation Age of Onset Cancer Father Diabetes Father Family Status - Relation Status Age at Father Normal [facility] CBC AUTO DIFFon 06-11-2022 BASO # 0.0 103/ul Normal 0.0-0.1 [facility] Comment on above: Performed By: #### C BC #### [facility] [address] [place] [address] Dr. Enoch Stein Basophils/100 WBC (Bld) 0.6 % Normal 0.2-2.0 [facility] Comment on above: Performed By: #### C BC #### [facility] [address] [place] [address] Dr. Enoch Stein EO # 0.2 103/ul Normal 0.0-0.7 [facility] Comment on above: Performed By: #### C BC #### [facility] [address] [place] [address] Dr. Enoch Stein Eosinophils/100 WBC (Bld) 2.9 % Normal 0.9-7.0 [facility] Comment on above: Performed By: #### C BC #### [facility] [address] [place] [address] Dr. Enoch Stein Erythrocyte distribution width (RBC) [Ratio] 13.7 % Normal 11.0-15.0 [facility] Comment on above: Performed By: #### C BC #### [facility] [address] [place] [address] Dr. Enoch Stein Hematocrit (Bld) [Volume fraction] 35.6 % Critically low 42.0-54.0 [facility] Comment on above: Performed By: #### C BC #### [facility] [address] [place] [address] Dr. Enoch Stein Hemoglobin (Bld) [Mass/Vol] 11.7 g/dL Critically low 14.0-18.0 [facility] Comment on above: Performed By: #### C BC #### [facility] [address] [place] [address] Dr. Enoch Stein IG # 0.03 10e3/ul Normal 0.00-0.03 [facility] Comment on above: Performed By: #### C BC #### [facility] [address] [place] [address] Dr. Enoch Stein IG % 0.5 % Normal 0.0-0.5 [facility] Comment on above: Performed By: #### C BC #### [facility] [address] [place] [address] Dr. Enoch Stein LYMPH # 2.2 103/ul Normal 1.2-3.8 [facility] Comment on above: Performed By: #### C BC #### [facility] [address] [place] [address] Dr. Enoch Stein Lymphocytes/100 WBC (Bld) 35.4 % Normal 20.5-60.0 [facility] Comment on above: Performed By: #### C BC #### [facility] [address] [place] [address] Dr. Enoch Stein MANUAL DIFF REQ NO Normal [facility] Comment on above: Performed By: #### C BC #### [facility] [address] [place] [address] Dr. Enoch Stein MCH (RBC) [Entitic mass] 30.5 pg Normal 25.9-34.0 [facility] Comment on above: Performed By: #### C BC #### [facility] [address] [place] [address] Dr. Enoch Stein MCHC (RBC) [Mass/Vol] 32.9 g/dL Normal 29.9-35.2 [facility] Comment on above: Performed By: #### C BC #### [facility] [address] [address] [address] Enoch Stein MCV (RBC) [Entitic vol] 92.7 fL Normal 80.0-94.0 [facility] Comment on above: Performed By: #### C BC #### [facility] [address] [address] [address] Enoch Stein MONO # 0.5 103/ul Normal 0.3-0.8 [facility] Comment on above: Performed By: #### C BC #### [facility] [address] [address] [address] Enoch Stein Monocytes/100 WBC (Bld) 7.6 % Normal 1.7-12.0 [facility] Comment on above: Performed By: #### C BC #### [facility] [address] [address] [address] Enoch Stein NEUT # 3.3 103/ul Normal 1.4-6.5 [facility] Comment on above: Performed By: #### C BC #### [facility] [address] [address] [address] Enoch Stein Neutrophils/100 WBC (Bld) 53.0 % Normal 43.0-75.0 [facility] Comment on above: Performed By: #### C BC #### [facility] [address] [address] [address] Enoch Stein Platelet mean volume (Bld) [Entitic vol] 9.4 fL Critically low 9.5-13.5 [facility] Comment on above: Performed By: #### C BC #### [facility] [address] [address] [address] Enoch Stein PLT 225 103/ul Normal 150-450 [facility] Comment on above: Performed By: #### C BC #### [facility] [address] [address] [address] Enoch Stein RBC 3.84 106/ul Critically low 4.70-6.10 [facility] Comment on above: Performed By: #### C BC #### [facility] [address] [place], [place] [address] Dr. Enoch Stein WBC 6.2 103/ul Normal 4.0-11.0 [facility] Comment on above: Performed By: #### C BC #### [facility] [address] [place], [place] [address] Dr. Enoch Stein ECHOCARDIO M/2D COMPLETEon 0 06-11-2022 ECHOCARDIO M/2D COMPLETE Patient: JARON MCARTHUR Exam Date: 06/11/2022 : 1945 Gender:M Ordering : MARCO CONDON Admission #: [id number] Family : ELO BOYCE LAST MARKER Order #: [id number] CLICK HERE TO VIEW EXAM ECHOCARDIOGRAM REPORT PROCEDURE: CARDIO PULMONARY ECHOCARDIO M/2D COMP INDICATIONS: Dyspnea on exertion, post-COVID chronic dyspnea, [place], PTCA, hypertension, diabetes COMPARISON: None. DESCRIPTION: COMPLETE ECHOCARDIOGRAM Real-time transthoracic echocardiography with 2D, M-mode, spectral and color flow Doppler performed. QUALITY: Technical quality was good. LEFT VENTRICLE: Normal chamber size. Proximal septal hypertrophy (sigmoid septum). LV EF: Normal left ventricular ejection fraction, (>55%). DIASTOLIC: Grade II diastolic dysfunction. ATRIAL SEPTUM: Visually appears intact. LEFT ATRIUM: Mild dilatation. RIGHT ATRIUM: Normal chamber size. RIGHT VENTRICLE: Normal chamber size. Normal right ventricular systolic function. TRICUSPID VALVE: Normal mobility and thickness. Mild regurgitation. Doppler studies reveal moderately (45-60) elevated right sided pressures. RVSP 52 mmHg MITRAL VALVE: Normal mobility and thickness. No evidence of mitral valve stenosis. Moderate to severe mitral regurgitation. AORTIC VALVE: Normal trileaflet appearance. No visible sclerosis. Normal leaflet mobility. No evidence of aortic valve stenosis. No aortic regurgitation. AORTIC ROOT: Normal diameter and appearance. PULMONIC VALVE: Normal thickness and mobility. No stenosis. PERICARDIUM: No evidence of pericardial effusion. IVC: Collapses with inspirations. CONCLUSION: Global left ventricular systolic function is normal; visually estimated ejection fraction is 55 to 60%. No significant wall motion abnormalities. Grade II diastolic dysfunction. The left atrium is mildly dilated. The right ventricle is normal in size and systolic function. Mild tricuspid regurgitation. Moderately elevated right-sided pressures. Moderate to severe mitral regurgitation; the severity of the mitral regurgitation may be underestimated. Consider transesophageal echocardiography as clinically warranted. Adult Echocardiography Procedure Report Left Ventricle LVEDD (3.7 - 5.6 cm): 5.75 cm LVESD (2.2 - 4.0 cm): 4.48 cm LVIVS thickness (0.6 - 1.2 cm): 1.52 cm LVPW thickness (0.5 - 1.0 cm): 0.82 cm e': 0.08 m/s E - e': 8.94 LVOT Max Gradient: 3.32 mm[Hg], 3.32 mm[Hg] Peak Velocity (LVOT): 0.91 m/s, 0.91 m/s Mean Velocity (LVOT): 0.59 m/s, 0.59 m/s LVOT Diameter 2.24 cm Left Atrium LA Volume Index (2D A2C): 75.51 ml, 75.51 ml Left Atrium Systolic Dimension: 4.40 cm Mitral Valve MV E to A Ratio: 0.72, 0.79 Mitral Valve A-Wave Peak Velocity: 0.99 m/s, 0.92 m/s Mitral Valve E-Wave Peak Velocity: 0.71 m/s, 0.72 m/s Right Ventricle Aorta AO Root Diam: 3.59 cm Aortic Valve AoV Area (Peak Jeramy): 2.97 cm2, 3.04 cm2, 2.90 cm2 AoV Area (VTI): 2.67 cm2, 2.66 cm2, 2.68 cm2 Peak Velocity(Antegrade Flow): 1.19 m/s, 1.24 m/s, 1.19 m/s, 1.24 m/s Peak Gradient(Antegrade Flow): 5.64 mm[Hg], 6.19 mm[Hg], 5.64 mm[Hg], 6.19 mm[Hg] Mean Velocity(Antegrade Flow): 0.88 m/s, 0.88 m/s, 0.88 m/s, 0.88 m/s Mean Gradient(Antegrade Flow): 3.46 mm[Hg], 3.48 mm[Hg], 3.46 mm[Hg], 3.48 mm[Hg] Velocity Time Integral: 30.53 cm, 30.23 cm, 30.53 cm, 30.23 cm Tricuspid Valve Peak Velocity (Regurgitant Flow): 4.16 m/s, 3.48 m/s Peak Velocity: 0.49 m/s Pulmonic Valve Peak Velocity: 1.05 m/s, 1.00 m/s Peak Gradient: 4.42 mm[Hg], 4.01 mm[Hg] Right Atrium Right Atrium Systolic Pressure: 41.59 ml, 41.59 ml Dictated by: Natasha Campo M.D. on 06/11/2022 at 14:27 Approved by: Natasha Campo M.D. on 06/11/2022 at 14:32 Normal [facility] FERRITINon 06-11-2022 Ferritin [Mass/Vol] 52.0 ng/mL Normal 26.0-388.0 [facility] Comment on above: Performed By: #### F ERR, IRON, VITB12 #### [facility] [address] [place] [address] Dr. Enoch Stein GLYCOHEMOGLOBIN A1Con 2022 ADA RECOMMENDATION SEE BELOW Normal [facility] Comment on above: Result Comment: ADA RECOMMENDED LIMIT 4.0 - 6.0 ADA THERAPEUTIC TARGET < 7.0 ACTION SUGGESTED > 7.0 Performed By: #### F ERR, IRON, VITB12 #### [facility] [address] [address] [address] Enoch Stein Glucose [Mass/Vol] 180 mg/dL Normal [facility] Comment on above: Performed By: #### F ERR, IRON, VITB12 #### [facility] [address] [address] [address] Enoch Stein HbA1c (Bld) [Mass fraction] 7.9 % Critically high 4.5-6.2 [facility] Comment on above: Performed By: #### F ERR, IRON, VITB12 #### [facility] [address] [address] [address] Enoch Stein IRONon 06-11-2022 Iron [Mass/Vol] 86.0 ug/dL Normal 65.0-175.0 [facility] Comment on above: Performed By: #### F ERR, IRON, VITB12 #### [facility] [address] [address] [address] Enoch Stein LIPID PROFILEon 06-11-2022 CHOL-HDL RATIO NORM SEE BELOW Normal [facility] Comment on above: Result Comment: 3.3 - 4.4 LOW RISK 4.4 - 7.1 AVERAGE RISK 7.1 - 11.0 MODERATE RISK >11.0 HIGH RISK Performed By: #### F ERR, IRON, VITB12 #### [facility] [address] [address] [address] Enoch Stein Cholesterol [Mass/Vol] 113 mg/dL Normal <=200 [facility] [place] Comment on above: Performed By: #### F ERR, IRON, VITB12 #### [facility] [address] [address] [address] Enoch Stein Cholesterol in HDL [Mass/Vol] 52 mg/dL Normal 40-60 [facility] [place] Comment on above: Performed By: #### F ERR, IRON, VITB12 #### [facility] [address] [address] [address] Enoch Stein Cholesterol in LDL [Mass/Vol] 47.0 mg/dL Normal [facility] Comment on above: Performed By: #### F ERR, IRON, VITB12 #### [facility] [address] [address] [address] Enoch Stein Cholesterol.total/Ch olesterol in HDL [Mass ratio] 2.2 {ratio} Normal [facility] [place] Comment on above: Performed By: #### F ERR, IRON, VITB12 #### [facility] [address] [place] [address] Dr. Enoch Stein HDL NORMAL > or = 60 mg/dl - LO W CARDIOVASCULAR RISK <40 mg/dl - HIGH CARDIOVASCULAR RISK Normal [facility] [place] Comment on above: Performed By: #### F ERR, IRON, VITB12 #### [facility] [address] [place] [address] Dr. Enoch Stein LDL CALC NORMAL SEE BELOW Normal [facility] Comment on above: Result Comment: <100 mg/dl OPTIMAL 100 - 129 mg/dl NEAR OR ABOVE OPTIMAL 130 - 159 mg/dl BORDERLINE HIGH 160 - 189 mg/dl HIGH >190 mg/dl VERY HIGH Performed By: #### F ERR, IRON, VITB12 #### [facility] [address] [place] [address] Dr. Enoch Stein Triglyceride [Mass/Vol] 70 mg/dL Normal <=150 [facility] [place] Comment on above: Performed By: #### F ERR, IRON, VITB12 #### [facility] [address] [place] [address] Dr. Enoch Stein VLDL CALC 14.0 mg/dL Normal [facility] [place] Comment on above: Performed By: #### F ERR, IRON, VITB12 #### [facility] [address] [place] [address] Dr. Enoch Stein MICROALBUMIN, RAND URon 05-26 mALB <1.3 Normal <=30.0 [facility] [place] Comment on above: Performed By: #### M ALBR #### [facility] [address] [place] [address] Dr. Enoch Stein PROF 14(COMP METB)on 023 Albumin [Mass/Vol] 3.7 g/dL Normal 3.4-5.0 [facility] Comment on above: Performed By: #### F ERR, IRON, VITB12 #### [facility] [address] [place] [address] Dr. Enoch Stein Albumin/Globulin [Mass ratio] 1.2 {ratio} Normal [facility] [place] Comment on above: Performed By: #### F ERR, IRON, VITB12 #### [facility] [address] [place] [address] Dr. Enoch Stein ALP [Catalytic activity/Vol] 90 U/L Normal 46-116 [facility] Comment on above: Performed By: #### F ERR, IRON, VITB12 #### [facility] [address] [place] [address] Dr. Enoch tSein ALT [Catalytic activity/Vol] 34 U/L Normal 16-63 [facility] [place] Comment on above: Performed By: #### F ERR, IRON, VITB12 #### [facility] [address] [address] [address] Enoch Stein Anion gap [Moles/Vol] 14.8 mmol/L Normal [facility] [place] Comment on above: Performed By: #### F ERR, IRON, VITB12 #### [facility] [address] [address] [address] Enoch Stein AST [Catalytic activity/Vol] 22 U/L Normal 15-37 [facility] Comment on above: Performed By: #### F ERR, IRON, VITB12 #### [facility] [address] [address] [address] Enoch Stein Bilirubin [Mass/Vol] 0.6 mg/dL Normal 0.2-1.0 [facility] Comment on above: Performed By: #### F ERR, IRON, VITB12 #### [facility] [address] [address] [address] Enoch Stein Calcium [Mass/Vol] 9.7 mg/dL Normal 8.5-10.1 [facility] Comment on above: Performed By: #### F ERR, IRON, VITB12 #### [facility] [address] [address] [address] Enoch Stein Chloride [Moles/Vol] 105 mmol/L Normal 98-107 [facility] Comment on above: Performed By: #### F ERR, IRON, VITB12 #### [facility] [address] [address] [address] Enoch Stein CO2 [Moles/Vol] 26.7 mmol/L Normal 21.0-32.0 [facility] Comment on above: Performed By: #### F ERR, IRON, VITB12 #### [facility] [address] [address] [address] Enoch Stein Creatinine [Mass/Vol] 0.78 mg/dL Normal 0.70-1.30 [facility] [place] Comment on above: Performed By: #### F ERR, IRON, VITB12 #### [facility] [address] [address] [address] Enoch Stein EGFR-AF ARGENTINE >60 Normal >=60 [facility] Comment on above: Performed By: #### F ERR, IRON, VITB12 #### [facility] [address] [address] [address] Enoch Stein EGFR-NON AF ARGENTINE >60 Normal >=60 [facility] Comment on above: Performed By: #### F ERR, IRON, VITB12 #### [facility] [address] [place] [address] Dr. Enoch Stein Globulin (S) [Mass/Vol] 3.2 g/dL Normal [facility] [place] Comment on above: Performed By: #### F ERR, IRON, VITB12 #### [facility] [address] [place] [address] Dr. Enoch Stein Glucose [Mass/Vol] 179 mg/dL Critically high 74-106 [facility] Comment on above: Performed By: #### F ERR, IRON, VITB12 #### [facility] [address] [place] [address] Dr. Enoch Stein Potassium [Moles/Vol] 4.5 mmol/L Normal 3.5-5.1 [facility] [place] Comment on above: Performed By: #### F ERR, IRON, VITB12 #### [facility] [address] [place] [address] Dr. Enoch Stein Protein [Mass/Vol] 6.9 g/dL Normal 6.4-8.2 [facility] Comment on above: Performed By: #### F ERR, IRON, VITB12 #### [facility] [address] [place] [address] Dr. Enoch Stein Sodium [Moles/Vol] 142 mmol/L Normal 136-145 [facility] Comment on above: Performed By: #### F ERR, IRON, VITB12 #### [facility] [address] [place] [address] Dr. Enoch Stein Urea nitrogen [Mass/Vol] 19.0 mg/dL Critically high 7.0-18.0 [facility] [place] Comment on above: Performed By: #### F ERR, IRON, VITB12 #### [facility] [address] [place] [address] Dr. Enoch Stein Urea nitrogen/Creatinine [Mass ratio] 24.4 mg/mg Normal [facility] Comment on above: Performed By: #### F ERR, IRON, VITB12 #### [facility] [address] [place] [address] Dr. Enoch Stein UA RANDOM W/MICROSCOPICon BACTERIA NONE SEEN Normal NONE SEEN [facility] [place] Comment on above: Performed By: #### U AMIC #### [facility] [address] [place] [address] Dr. Enoch Stein Bilirubin Ql (U) Negative Normal NEGATIVE [facility] Comment on above: Performed By: #### U AMIC #### [facility] [address] [place] [address] Dr. Enoch Stein CAST NONE SEEN Normal NONE SEEN [facility] [place] Comment on above: Performed By: #### U AMIC #### [facility] [address] [place] [address] Dr. Enoch Stein Clarity (U) CLEAR Normal CLEAR [facility] Comment on above: Performed By: #### U AMIC #### [facility] [address] [place] [address] Dr. Enoch Stein Color (U) LT. YELLOW Normal YELLOW [facility] Comment on above: Performed By: #### U AMIC #### [facility] [address] [place] [address] Dr. Enoch Stein Crystals LM Nom (Urine sed) NONE SEEN Normal NONE SEEN [facility] Comment on above: Performed By: #### U AMIC #### [facility] [address] [place] [address] Dr. Enoch Stein Epithelial cells LM Ql (Urine sed) NONE SEEN Normal NONE SEEN /RARE [facility] Comment on above: Performed By: #### U AMIC #### [facility] [address] [place] [address] Dr. Enoch Stein Glucose Ql (U) 250 mg/dl Abnormal NEGATIVE [facility] [place] [facility] Comment on above: Performed By: #### U AMIC #### [facility] [address] [address] [address] Enoch Stein Hemoglobin Ql (U) Negative Normal NEGATIVE [facility] Comment on above: Performed By: #### U AMIC #### [facility] [address] [address] [address] Enoch Stein Ketones Ql (U) Negative Normal NEGATIVE [facility] [place] [facility] Comment on above: Performed By: #### U AMIC #### [facility] [address] [address] [address] Enoch Stein LEUKOCYTES Negative Normal NEGATIVE [facility] [place] Comment on above: Performed By: #### U AMIC #### [facility] [address] [address] [address] Enoch Stein MUCOUS TRACE Abnormal NONE SEEN [facility] Comment on above: Performed By: #### U AMIC #### [facility] [address] [place] [address] Dr. Enoch Stein Nitrite Ql (U) Negative Normal NEGATIVE [facility] [place] [facility] Comment on above: Performed By: #### U AMIC #### [facility] [address] [place] [address] Dr. Enoch Stein pH (U) 5.5 [pH] Normal 5-9 [facility] Comment on above: Performed By: #### U AMIC #### [facility] [address] [place] [address] Dr. Enoch Stein RBC NONE SEEN Abnormal 0-2 [facility] Comment on above: Performed By: #### U AMIC #### [facility] [address] [address] [address] Enoch Stein SPEC GRAVITY 1.020 Normal 1.005-<=1.025 [facility] Comment on above: Performed By: #### U AMIC #### [facility] [address] [place] [address] Dr. Enoch Stein UA PROTEIN Negative Normal NEGATIVE/ TRACE [facility] Comment on above: Performed By: #### U AMIC #### [facility] [address] [place] [address] Dr. Enoch Stein Urobilinogen Qn (U) 0.2 {Reilly'U}/dL Normal 0.2 - 1. 0 [facility] [place] Comment on above: Performed By: #### U AMIC #### [facility] [address] [place] [address] Dr. Enoch Stein WBC NONE SEEN Normal NONE SEEN [facility] Comment on above: Performed By: #### U AMIC #### [facility] [address] [address] [address] Enoch Stein VITAMIN B12on 06-11-2022 Cobalamin (Vitamin B12) [Mass/Vol] 413.0 pg/mL Normal 193.0-986.0 [facility] [place] Comment on above: Performed By: #### F ERR, IRON, VITB12 #### [facility] [address] [place] [address] Dr. Enoch Stein 37on 04-30-2022 37 Hydrate 6-8 glasses per day, limit caffiene Monitor blood pressure twice a day, record on a log and bring with you to next visit Normal [facility] Office Visiton 04-30-2022 Follow-up visit [id number] LyubovJaron Laura 1945 M Date Provider Department Center 04/30/2022 MARCO GASPAR [facility] Family History Problem Relation Age of Onset Cancer Father Diabetes Father Family Status - Relation Status Age at Father Level of Service:[address] [place] OFFICE/OUTPATIENT ESTABLISHED MOD [facility] 30-39 MIN Reason for Visit and Comments: Coronary Artery Disease [187] Hypertension [146709] Valve Disorder [3372] peripheral arterial occlusive disease [Other] Normal [facility] CT ABD/PELV W CONon 01-07-[address] ABD/PELV W CON EXAMINATION: CT ABD/PELV W CON HISTORY: Epigastric pain for 10 days; new onset diarrhea COMPARISON: CT abdomen 03/09/2016 TECHNIQUE: CT images were created with IV contrast. Axial, Coronal, and Sagittal images. Dose reduction techniques were achieved by using automated exposure control and/or adjustment of mA and/or kV according to patient size and/or use of iterative reconstruction technique FINDINGS: LUNG BASES: No visible pulmonary or pleural disease. LIVER: Contains a few small nonenhancing hypodensities favoring hepatic cysts. BILIARY: Cholecystectomy. PANCREAS: No lesion, fluid collection, ductal dilatation, or atrophy. SPLEEN: No enlargement or focal lesion. ADRENALS: No mass or enlargement. KIDNEYS: Small nonobstructing stone within left kidney. Stable, chronic left renal cyst. BOWEL/MESENTERY: Moderate size hiatal hernia. Small-moderate amount stool throughout the colon. Mild diverticulosis of distal colon without acute inflammatory changes. No visible mass, obstruction, or bowel wall thickening. AORTA/VASCULAR: Marked atherosclerotic disease of aorta. Patent endovascular stents within the common and external iliac arteries bilaterally. RETROPERITONEUM: No mass or adenopathy. ABDOMINAL WALL: No mass or hernia. BONES: No bony lesion or fracture. OTHER: Negative. IMPRESSION: 1. No acute or suspicious findings to account for patient's symptoms. 2. Nonobstructing left nephrolithiasis. 3. Mild colonic diverticulosis. 4. Marked atherosclerotic disease of aorta with patent endovascular stents within the iliac arteries. Electronically authenticated by: SANJAY REECE Date: 2022-01-06 16:24 Normal [facility] AMYLASEon 01-05-2022 Amylase [Catalytic activity/Vol] 55 U/L Normal 25-115 [facility] Comment on above: Performed By: #### F ERR, IRON, VITB12 #### [facility] [address] [address] [address] Enoch Stein CBC AUTO DIFFon 01-05-2022 BASO # 0.0 103/ul Normal 0.0-0.1 [facility] [place] Comment on above: Performed By: #### F ERR, IRON, VITB12 #### [facility] [address] [address] [address] Enoch Stein Basophils/100 WBC (Bld) 0.5 % Normal 0.2-2.0 [facility] [place] Comment on above: Performed By: #### F ERR, IRON, VITB12 #### [facility] [address] [address] [address] Enoch Stein EO # 0.3 103/ul Normal 0.0-0.7 [facility] [place] Comment on above: Performed By: #### F ERR, IRON, VITB12 #### [facility] [address] [place] [address] Dr. Enoch Stein Eosinophils/100 WBC (Bld) 3.7 % Normal 0.9-7.0 [facility] [place] Comment on above: Performed By: #### F ERR, IRON, VITB12 #### [facility] [address] [place] [address] Dr. Enoch Stein Erythrocyte distribution width (RBC) [Ratio] 13.2 % Normal 11.0-15.0 [facility] [place] Comment on above: Performed By: #### F ERR, IRON, VITB12 #### [facility] [address] [place] [address] Dr. Enoch Stein Hematocrit (Bld) [Volume fraction] 39.3 % Critically low 42.0-54.0 [facility] [place] Comment on above: Performed By: #### F ERR, IRON, VITB12 #### [facility] [address] [place] [address] Dr. Enoch Stein Hemoglobin (Bld) [Mass/Vol] 13.0 g/dL Critically low 14.0-18.0 [facility] [place] Comment on above: Performed By: #### F ERR, IRON, VITB12 #### [facility] [address] [place] [address] Dr. Enoch Stein IG # 0.04 10e3/ul Critically high 0.00-0.03 [facility] Comment on above: Performed By: #### F ERR, IRON, VITB12 #### [facility] [address] [place] [address] Dr. Enoch Stein IG % 0.5 % Normal 0.0-0.5 [facility] [place] Comment on above: Performed By: #### F ERR, IRON, VITB12 #### [facility] [address] [place] [address] Dr. Enoch Stein LYMPH # 1.6 103/ul Normal 1.2-3.8 [facility] [place] Comment on above: Performed By: #### F ERR, IRON, VITB12 #### [facility] [address] [place] [address] Dr. Enoch Stein Lymphocytes/100 WBC (Bld) 20.4 % Critically low 20.5-60.0 [facility] Comment on above: Performed By: #### F ERR, IRON, VITB12 #### [facility] [address] [place] [address] Dr. Enoch Stein MANUAL DIFF REQ NO Normal [facility] Comment on above: Performed By: #### F ERR, IRON, VITB12 #### [facility] [address] [place] [address] Dr. Enoch Stein MCH (RBC) [Entitic mass] 30.5 pg Normal 25.9-34.0 [facility] Comment on above: Performed By: #### F ERR, IRON, VITB12 #### [facility] [address] [place] [address] Dr. Enoch Stein MCHC (RBC) [Mass/Vol] 33.1 g/dL Normal 29.9-35.2 [facility] Comment on above: Performed By: #### F ERR, IRON, VITB12 #### [facility] [address] [place] [address] Dr. Enoch Stein MCV (RBC) [Entitic vol] 92.3 fL Normal 80.0-94.0 [facility] Comment on above: Performed By: #### F ERR, IRON, VITB12 #### [facility] [address] [place] [address] Dr. Enoch Stein MONO # 0.4 103/ul Normal 0.3-0.8 [facility] Comment on above: Performed By: #### F ERR, IRON, VITB12 #### [facility] [address] [place] [address] Dr. Enoch Stein Monocytes/100 WBC (Bld) 4.7 % Normal 1.7-12.0 [facility] Comment on above: Performed By: #### F ERR, IRON, VITB12 #### [facility] [address] [place] [address] Dr. Enoch Stein NEUT # 5.6 103/ul Normal 1.4-6.5 [facility] Comment on above: Performed By: #### F ERR, IRON, VITB12 #### [facility] [address] [address] [address] Enoch Stein Neutrophils/100 WBC (Bld) 70.2 % Normal 43.0-75.0 [facility] [place] Comment on above: Performed By: #### F ERR, IRON, VITB12 #### [facility] [address] [place] [address] Dr. Enoch Stein Platelet mean volume (Bld) [Entitic vol] 10.2 fL Normal 9.5-13.5 [facility] [place] Comment on above: Performed By: #### F ERR, IRON, VITB12 #### [facility] [address] [place] [address] Dr. Enoch Stein PLT 192 103/ul Normal 150-450 [facility] [place] Comment on above: Performed By: #### F ERR, IRON, VITB12 #### [facility] [address] [place] [address] Dr. Enoch Stein RBC 4.26 106/ul Critically low 4.70-6.10 [facility] Comment on above: Performed By: #### F ERR, IRON, VITB12 #### [facility] [address] [place] [address] Dr. Enoch Stein WBC 8.0 103/ul Normal 4.0-11.0 [facility] [place] Comment on above: Performed By: #### F ERR, IRON, VITB12 #### [facility] [address] [place] [address] Dr. Enoch Stein CULTURE URINEon 01-05-2022 CULTURE URINE Culture Observations : NO GROWTH. Normal [facility] [place] Comment on above: Performed By: #### F ERR, IRON, VITB12 #### [facility] [address] [place] [address] Dr. Enoch Stein GLYCOHEMOGLOBIN A1Con 2021 ADA RECOMMENDATION SEE BELOW Normal [facility] Comment on above: Result Comment: ADA RECOMMENDED LIMIT 4.0 - 6.0 ADA THERAPEUTIC TARGET < 7.0 ACTION SUGGESTED > 7.0 Performed By: #### A 1C #### [facility] [address] [place] [address] Dr. Enoch Stein Glucose [Mass/Vol] 166 mg/dL Normal [facility] Comment on above: Performed By: #### A 1C #### [facility] [address] [place] [address] Dr. Enoch Stein HbA1c (Bld) [Mass fraction] 7.4 % Critically high 4.5-6.2 [facility] [place] Comment on above: Performed By: #### A 1C #### [facility] [address] [place] [address] Dr. Enoch Stein LIPASEon 01-05-2022 Lipase [Catalytic activity/Vol] 86.0 U/L Normal 73.0-393.0 [facility] [place] Comment on above: Performed By: #### F ERR, IRON, VITB12 #### [facility] [address] [place] [address] Dr. Enoch Stein PROF 14(COMP METB)on 022 Albumin [Mass/Vol] 3.8 g/dL Normal 3.4-5.0 [facility] Comment on above: Performed By: #### F ERR, IRON, VITB12 #### [facility] [address] [place] [address] Dr. Enoch Stein Albumin/Globulin [Mass ratio] 1.1 {ratio} Normal [facility] [place] Comment on above: Performed By: #### F ERR, IRON, VITB12 #### [facility] [address] [place] [address] Dr. Enoch Stein ALP [Catalytic activity/Vol] 101 U/L Normal 46-116 [facility] Comment on above: Performed By: #### F ERR, IRON, VITB12 #### [facility] [address] [place] [address] Dr. Enoch Stein ALT [Catalytic activity/Vol] 25 U/L Normal 16-63 [facility] Comment on above: Performed By: #### F ERR, IRON, VITB12 #### [facility] [address] [place] [address] Dr. Enoch Stein Anion gap [Moles/Vol] 15.2 mmol/L Normal [facility] Comment on above: Performed By: #### F ERR, IRON, VITB12 #### [facility] [address] [place] [address] Dr. Enoch Stein AST [Catalytic activity/Vol] 14 U/L Critically low 15-37 [facility] [place] Comment on above: Performed By: #### F ERR, IRON, VITB12 #### [facility] [address] [place] [address] Dr. Enoch Stein Bilirubin [Mass/Vol] 1.0 mg/dL Normal 0.2-1.0 [facility] [place] Comment on above: Performed By: #### F ERR, IRON, VITB12 #### [facility] [address] [place] [address] Dr. Enoch Stein Calcium [Mass/Vol] 9.4 mg/dL Normal 8.5-10.1 [facility] Comment on above: Performed By: #### F ERR, IRON, VITB12 #### [facility] [address] [place] [address] Dr. Enoch Stein Chloride [Moles/Vol] 104 mmol/L Normal 98-107 [facility] Comment on above: Performed By: #### F ERR, IRON, VITB12 #### [facility] [address] [place] [address] Dr. Enoch Stein CO2 [Moles/Vol] 27.1 mmol/L Normal 21.0-32.0 [facility] Comment on above: Performed By: #### F ERR, IRON, VITB12 #### [facility] [address] [place] [address] Dr. Enoch Stein Creatinine [Mass/Vol] 1.23 mg/dL Normal 0.70-1.30 [facility] Comment on above: Performed By: #### F ERR, IRON, VITB12 #### [facility] [address] [place] [address] Dr. Enoch Stein EGFR-AF ARGENTINE >60 Normal >=60 [facility] Comment on above: Performed By: #### F ERR, IRON, VITB12 #### [facility] [address] [address] [address] Enoch Stein EGFR-NON AF ARGENTINE 57 mL/min/1.73m2 Critically low >=60 [facility] [place] Comment on above: Performed By: #### F ERR, IRON, VITB12 #### [facility] [address] [address] [address] Enoch Stein Globulin (S) [Mass/Vol] 3.4 g/dL Normal [facility] [facility] [place] Comment on above: Performed By: #### F ERR, IRON, VITB12 #### [facility] [address] [address] [address] Enoch Stein Glucose [Mass/Vol] 165 mg/dL Critically high 74-106 [facility] Comment on above: Performed By: #### F ERR, IRON, VITB12 #### [facility] [address] [place] [address] Dr. Enoch Stein Potassium [Moles/Vol] 5.3 mmol/L Critically high 3.5-5.1 [facility] [place] Comment on above: Performed By: #### F ERR, IRON, VITB12 #### [facility] [address] [address] [address] Enoch Stein Protein [Mass/Vol] 7.2 g/dL Normal 6.4-8.2 [facility] Comment on above: Performed By: #### F ERR, IRON, VITB12 #### [facility] [address] [address] [address] Enoch Stein Sodium [Moles/Vol] 141 mmol/L Normal 136-145 [facility] Comment on above: Performed By: #### F ERR, IRON, VITB12 #### [facility] [address] [address] [address] Enoch Stein Urea nitrogen [Mass/Vol] 26.0 mg/dL Critically high 7.0-18.0 [facility] [place] Comment on above: Performed By: #### F ERR, IRON, VITB12 #### [facility] [address] [address] [address] Enoch Stein Urea nitrogen/Creatinine [Mass ratio] 21.1 mg/mg Normal [facility] Comment on above: Performed By: #### F ERR, IRON, VITB12 #### [facility] [address] [place] [address] Dr. Enoch Stein [facility] 4 mm/hr Normal <=20 [facility] Comment on above: Performed By: #### S EDR #### [facility] [address] [place] [address] Dr. Enoch Stein UA RANDOM W/MICROSCOPICon BACTERIA TRACE Abnormal NONE SEEN [facility] Comment on above: Performed By: #### U AMIC #### [facility] [address] [place] [address] Dr. Enoch Stein Bilirubin Ql (U) SMALL Abnormal NEGATIVE [facility] Comment on above: Performed By: #### U AMIC #### [facility] [address] [place] [address] Dr. Enoch Stein CA OX CRYSTALS FEW Normal [facility] Comment on above: Performed By: #### U AMIC #### [facility] [address] [place] [address] Dr. Enoch Stein CAST SEEN Abnormal NONE SEEN [facility] Comment on above: Performed By: #### U AMIC #### [facility] [address] [place] [address] Dr. Enoch Stein Clarity (U) CLEAR Normal CLEAR [facility] Comment on above: Performed By: #### U AMIC #### [facility] [address] [place] [address] Dr. Enoch Stein Color (U) DK. YELLOW Normal YELLOW [facility] Comment on above: Performed By: #### U AMIC #### [facility] [address] [place] [address] Dr. Enoch Stein Crystals LM Nom (Urine sed) SEEN Abnormal NONE SEEN [facility] Comment on above: Performed By: #### U AMIC #### [facility] [address] [place] [address] Dr. Enoch Stein Epithelial cells LM Ql (Urine sed) RARE Normal NONE SEEN /RARE [facility] Comment on above: Performed By: #### U AMIC #### [facility] [address] [address] [address] Enoch Stein Glucose Ql (U) Negative Normal NEGATIVE [facility] [place] Comment on above: Performed By: #### U AMIC #### [facility] [address] [address] [address] Enoch Stein Hemoglobin Ql (U) Negative Normal NEGATIVE [facility] Comment on above: Performed By: #### U AMIC #### [facility] [address] [address] [address] Enoch Stein HYALINE CAST MODERATE Normal [facility] Comment on above: Performed By: #### U AMIC #### [facility] [address] [address] [address] Enoch Stein Ketones Ql (U) 15 mg/dl Abnormal NEGATIVE [facility] Comment on above: Performed By: #### U AMIC #### [facility] [address] [address] [address] Enoch Stein LEUKOCYTES Negative Normal NEGATIVE [facility] [place] Comment on above: Performed By: #### U AMIC #### [facility] [address] [address] [address] Enoch Stein MUCOUS MODERATE Abnormal NONE SEEN [facility] Comment on above: Performed By: #### U AMIC #### [facility] [address] [address] [address] Enoch Stein Nitrite Ql (U) Negative Normal NEGATIVE [facility] Comment on above: Performed By: #### U AMIC #### [facility] [address] [address] [address] Enoch Stein pH (U) 6.0 [pH] Normal 5-9 [facility] Comment on above: Performed By: #### U AMIC #### [facility] [address] [address] [address] Enoch Stein RBC 0-2 Normal 0-2 [facility] Comment on above: Performed By: #### U AMIC #### [facility] [address] [address] [address] Enoch Stein SPEC GRAVITY >=1.030 Abnormal 1.005-<=1.025 [facility] Comment on above: Performed By: #### U AMIC #### [facility] [address] [address] [address] Enoch Stein UA PROTEIN 100 mg/dl Abnormal NEGATIVE/ TRACE [facility] Comment on above: Performed By: #### U AMIC #### [facility] [address] [address] [address] Enoch Stein Urobilinogen Qn (U) 1.0 {Reilly'U}/dL Normal 0.2 - 1. 0 [facility] Comment on above: Performed By: #### U AMIC #### [facility] [address] [address] [address] Enoch Stein WBC 0-2 Abnormal NONE SEEN [facility] Comment on above: Performed By: #### U AMIC #### [facility] [address] [address] [address] Enoch Stein ECHOCARDIO M/2D COMPLETEon 0 10-14-2021 ECHOCARDIO M/2D COMPLETE Patient: JARON MCARTHUR Exam Date: 10/14/2021 : 1945 Gender:M Ordering : DWAIN RAY [facility] Admission #: [id number] Family : ELO MARISOL BOYCE [facility] Order #: [id number] CLICK HERE TO VIEW EXAM ECHOCARDIOGRAM REPORT PROCEDURE: CARDIO PULMONARY ECHOCARDIO M/2D COMP INDICATIONS: Mitral valve regurgitation (moderate), H/O Cardiac stents COMPARISON: None. DESCRIPTION: COMPLETE ECHOCARDIOGRAM Real-time transthoracic echocardiography with 2D, M-mode, spectral and color flow Doppler performed. QUALITY: Technical quality was good. 72 174# 152/60 HR 79 LEFT VENTRICLE: Normal chamber size. Proximal septal hypertrophy (sigmoid septum). LV EF: Global left ventricular systolic function is normal. Calculated left ventricular ejection fraction is 58%. 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 The inferior wall is hypokinetic in the basal segment. DIASTOLIC: Unable to assess diastolic function due to mitral regurgitation. ATRIAL SEPTUM: Inadequately seen. LEFT ATRIUM: Severe dilatation. RIGHT ATRIUM: Normal chamber size. RIGHT VENTRICLE: Normal chamber size. Normal right ventricular systolic function. TRICUSPID VALVE: Normal mobility and thickness. No stenosis with mild regurgitation. Doppler studies reveal moderately (45-60) elevated right sided pressures. RVSP 49 mmHg. MITRAL VALVE: Normal mobility and thickness. No evidence of mitral valve stenosis. Mild mitral annular calcification. Moderate mitral regurgitation. AORTIC VALVE: Normal trileaflet appearance. No evidence of aortic valve stenosis. No aortic regurgitation. AORTIC ROOT: Normal diameter and appearance. PULMONIC VALVE: Normal thickness and mobility. No stenosis. Trivial regurgitation. PERICARDIUM: No evidence of pericardial effusion. IVC: Collapses with inspirations. IVC is normal in size. CONCLUSION: Global left ventricular systolic function is normal. Estimated ejection fraction is 55 to 60%. Segmental wall motion abnormalities seen. The left atrium is severely dilated. The right ventricle is normal in size and systolic function. Mild tricuspid regurgitation. Moderately elevated right-sided pressures. Moderate mitral regurgitation. Adult Echocardiography Procedure Report Left Ventricle Left Atrium Mitral Valve Right Ventricle Aorta Aortic Valve Peak Velocity (Antegrade Flow): 1.26 m/s AoV Area (Peak Jeramy): 2.65 cm2, 2.65 cm2 Peak Velocity(Antegrade Flow): 1.26 m/s Peak Gradient(Antegrade Flow): 6.38 mm[Hg] Tricuspid Valve Peak Velocity (Regurgitant Flow): 3.41 m/s, 2.82 m/s, 3.21 m/s Peak Velocity: 0.54 m/s Pulmonic Valve PV Max Jeramy (0.6 - 0.9 m per sec): 1.02 m/s PV Max Gradient: 4.17 mm[Hg] Right Atrium Dictated by: Natasha Campo M.D. on 10/14/2021 at 16:54 Approved by: Natasha Campo M.D. on 10/14/2021 at 16:57 Normal [facility] 03-04-2021 [facility] Department of Radiology [address] [place] [id number] Patient Name: JARON MCARTHUR : 1945 Sex: M Age: Race: White Pt. Location: [facility] Patient Status: D Ordered Date: 01/28/2021 4:35:00 PM Completed Date: 03/04/2021 10:46 AM Requesting Provider: ALEX RUIZ Attending Provider: ALEX RUIZ Report Copy To: PRABHJOT VILLATORO Signs & Symptoms: I65.29 Occlusion and stenosis of unspecified carotid artery I10 History: Keira patient will need labs Need Wed appt medicare no pc required 23581 / i65.29 med nec passed *kw 02/04/21 Comments: Exam: CTA NECK CTA NECK 03/04/2021 10:46 AM CLINICAL INDICATIONS: I65.29 Occlusion and stenosis of unspecified carotid artery I10 TECHNOLOGIST COMMENTS: Occlusion and stenosis QUESTION FOR THE RADIOLOGIST: PROTOCOL: Axial CT angiography images were obtained with IV contrast. CONTRAST: Contrast: OMNIPAQUE 300 (LOCM), 100 milliliter, Intravenous TECHNIQUE: Multi-detector CT angiography axial slices of the neck were obtained during intravenous administration of IV contrast material. Sagittal, coronal, and 3-D reconstructions were performed and viewed on a separate workstation. The [place] Symptomatic Carotid Endarterectomy Trial (NASCET) method for calculating the degree of stenosis was utilized for stenosis measurements. COMPARISON: None. FINDINGS: There is emphysema noted within the upper lungs and apices. No acute pulmonary abnormality. Bony structures are age compatible. Posterior endplate osteophytes more pronounced within the mid and lower levels with moderate anterior canal narrowing. No acute or destructive bony pathology. Standard three-vessel branch anatomy from aorta. Atherosclerotic disease of proximal left subclavian distribution with less than 50% narrowing. Mixed calcified and soft thrombus within distal common carotid artery. Less than 50% narrowing. Additional atherosclerotic plaque formation proximal left internal carotid artery also is less than 50% narrowing. Plaque formation distal common right carotid artery with some plaque irregularity. Less than 50% narrowing. Mild extension into the proximal right internal carotid artery. High-grade narrowing at the origin of the right external carotid artery. Both vertebral arteries are patent throughout their course. Dominant right vertebral artery. Visualized portions of the intracranial arteries show additional atherosclerotic disease without occlusive segment or further concerning abnormality. Surrounding soft tissue structures show no inflammatory focus or adenopathy. IMPRESSION: * Mixed soft and calcified plaque formation of both distal common and proximal internal carotid arteries with some plaque irregularity more prevalent on the right side. Narrowing less than 50%. * High-grade narrowing of right external carotid artery and additional scattered vascular disease described above. * Pulmonary emphysema within the upper lobes. All CT scans at this facility use dose modulation, iterative reconstruction, and/or weight based dosing when appropriate to reduce radiation dose to as low as reasonably achievable Electronically signed: Troy Wyatt. Transcribed by: [email or web address], User Resident: TROY WYATT Electronically Signed by: TROY WYATT @ 03/08/2021 08:19 AM I personally read this/these film(s) with this resident Normal [facility] Vital Signs Date Time Vital Sign Value Performing Clinician Facility 07-11-2023 13:56-0400 Body temperature 98.06 [degF] ELLA BECKER [facility] 07-11-2023 13:56-0400 Diastolic blood pressure 71 mm[Hg] ELLA BECKER [facility] 07-11-2023 13:56-0400 Heart rate 67 /min ELLA BECKER [facility] 07-11-2023 13:56-0400 Respiratory rate 16 /min ELLA BECKER [facility] 07-11-2023 13:56-0400 Systolic blood pressure 135 mm[Hg] ELLA BECKER [facility] 06-18-2022 09:44-0400 Blood Pressure Location Deja Lue [facility] 06-18-2022 09:44-0400 Diastolic blood pressure 67 mm[Hg] Deja Lue [facility] 06-18-2022 09:44-0400 Heart rate 87 /min Deja Lue [facility] 06-18-2022 09:44-0400 Systolic blood pressure 137 mm[Hg] Deja Lue [facility] Encounters Encounter Date Encounter Type Care Provider Facility Start: 07-04-2024 ambulatory Deja M. Lue Facility:[facility] Start: 08-09-2023 End: 08-09-2023 ambulatory MARISOL GUERAZ Not Available Start: 07-11-2023 End: 07-12-2023 ambulatory ELLA GARZARY Facility:[facility] Start: 07-11-2023 End: 07-11-2023 Patient encounter procedure ELLA BECKER [facility] Start: 07-06-2023 End: 07-07-2023 ambulatory ELLA BECKER [facility] Start: 06-07-2023 End: 06-07-2023 ambulatory MARISOL GUERAZ Not Available Start: 05-05-2023 Refill Marisol Carli [facility] Work Phone: [facility] Start: 05-04-2023 External Result Encounter Marisol Boyce HE[facility] D[employer]PER Work Phone: [facility] Unsolicited Start: 02-07-2024 External Result Encounter Marisol Carli HEEL DIPPER Work Phone: [facility] Unsolicited Start: 05-04-2023 End: 05-05-2023 ambulatory MARISOL Tolbert [facility]anchezSINC[facility] Start: 04-18-2023 End: 04-18-2023 ambulatory [facility] Start: 04-11-2023 End: 04-11-2023 ambulatory MARISOL CARLI Not Available Start: 02-28-2023 ambulatory [facility] Start: 02-28-2023 End: 02-28-2023 ambulatory [facility] Start: 12-29-2022 End: 12-29-2022 ambulatory [facility] Start: 09-20-2022 End: 09-20-2022 ambulatory [facility] Start: 06-25-2022 End: 06-25-2022 ambulatory [facility] Start: 06-18-2022 End: 06-18-2022 Patient encounter procedure Deja Perez [facility] Start: 06-11-2022 End: 06-12-2022 ambulatory ELO MAHMOOD ROSEANNESanchezSINCERE Facility:[facility] Start: 04-30-2022 End: 04-30-2022 ambulatory [facility] Start: 01-06-2022 End: 01-07-2022 ambulatory ELO MAHMOOD ROSEANNESanchezSINCERE Facility:[facility] Start: 01-05-2022 End: 01-06-2022 ambulatory ELO MAHMOOD CARLI Facility:[facility] Start: 10-14-2021 End: 10-15-2021 ambulatory DWAIN RAY Facility:[facility] Start: 06-18-2021 End: 06-18-2021 Patient encounter procedure Carlitos MAYA [facility] Procedures Date Procedure Procedure Detail Performing Clinician Start: 05-04-2023 Comprehensive metabo lic panel Marisol Boyce HE[employer] D[employer] Work Phone: Start: 05-04-2023 Urnls dip stick/tabl et rgnt non-auto w/o micrscp Marisol Boyce HE[employer] D[employer]PER Work Phone: Start: 02-26-2020 Iliofemoral vein anita nt (physical object) [facility] Start: 08-03-2019 Injection of sacroil iac joint [facility] Cataract (disorder) Carlitos R ICE Cholecystectomy [facility] Placement of stent i n cardiac conduit [facility] Prosthetic arthropla sty of shoulder [facility] Plan of Treatment Date Care Activity Detail Author Start: 05-04-2024 Urine screening for protein Diabetes: Urine Protein Screening [facility] Start: 10-27-2023 Screening for malign ant neoplasm of colon [facility] Start: 08-02-2023 Hemoglobin A1c measurement Diabetes: Hemoglobin A1C [facility] Start: 06-12-2023 Urine screening for protein Diabetes: Urine Protein Screening [facility] Start: 06-07-2023 End: 06-07-2023 Patient encounter procedure 06/07/2023 10:30 AM EDT Office Visit [facility] [address] [place] [address] Marisol Boyce, CATAL[place] [address] [place] [address] [facility] Start: 03-14-2023 Hemoglobin A1c measurement Diabetes: Hemoglobin A1C [facility] Start: 1955 Glaucoma screening Diabetes: R etinopathy Screening [facility] Start: 1945 Medicare Annual Well ness (AWV) Medicare Annual Wellness (AWV) [facility] Start: 1945 Screening for malign ant neoplasm of colon [facility] Immunizations Immunization Date Immunization Notes Care Provider Roma hernandez 01-31-2023 influenza virus vacc ine, unspecified formulation ELLA BECKER [facility] 03-11-2022 SARS-CoV-2 (COVID-19 ) [id number] Deja Lue [facility] 02-12-2022 influenza virus vacc ine, unspecified formulation Deja Lue [facility] 08-06-2021 SARS-CoV-2 mRNA (kdtagowgdqd-nnbj-puppsf e) vaccine Deja Lue [facility] 02-02-2021 influenza virus vacc ine, unspecified formulation Deja Lue [facility] 01-05-2021 SARS-CoV-2 (COVID-19 ) mRNA BNT-162b2 vax Deja Lue [facility] 05-29-2020 SARS-CoV-2 (COVID-19 ) mRNA-1273 vaccine Carlitos RICE [facility] 05-21-2020 SARS-CoV-2 (COVID-19 ) mRNA BNT-162b2 vax Deja Lue [facility] Comment on above: Result Comment: 2022: [id number] 05-08-2020 SARS-CoV-2 (COVID-19 ) mRNA-1273 vaccine Carlitos RICE [facility] 05-01-2020 SARS-CoV-2 (COVID-19 ) mRNA BNT-162b2 vax Deja Lue [facility] Comment on above: Result Comment: 2022: [id number] 11-30-2019 influenza virus vacc ine, unspecified formulation Deja Lue [facility] 11-30-2019 pneumococcal conjuga te vaccine, 13 valent Deja Lue [facility] 11-27-2019 influenza virus vacc ine, unspecified formulation Carlitos RICE [facility] 12-29-2018 influenza virus vacc ine, unspecified formulation Deja Lue [facility] 01-28-2018 influenza virus vacc ine, unspecified formulation Deja Lue [facility] 02-11-2017 influenza virus vacc ine, unspecified formulation Deja Lue [facility] 01-17-2015 influenza virus vacc ine, unspecified formulation Deja Lue [facility] 12-10-2014 pneumococcal polysaccharide vaccine, 23 valent Deja Lue [facility] 03-12-2014 influenza virus vacc ine, unspecified formulation Deja Lue [facility] 03-12-2014 zoster vaccine, live Deja L ue [facility] 01-10-2013 influenza virus vacc ine, unspecified formulation Deja Lue [facility] Payers Date Payer Category Payer Medicare [id number] 1958 Medicare [id number] 1958 Unknown [id number] 1945 Unknown [id number] 2.16.84 [id number] 1945 Unknown [id number] 2.16.84 [id number] 1945 Unknown [id number] 2.16.84 [id number] 1945 Unknown [id number] 2.16.84 [id number] 1945 Unknown [id number] 2.16.84 [id number] 1945 Unknown [id number] 2.16.8 [id number] 7 Unknown [id number] 2.16.8 [id number] 7 Unknown [id number] 2.16.8 [id number] 1945 Unknown [id number] 2.16.8 [id number] 1945 Unknown [id number] 2.16.84 [id number] 1945 Unknown [id number] 2.16.84 [id number] 1945 Unknown [id number] 2.16.84 [id number] Social History Date Type Detail Facility Start: 06-18-2021 End: 07-11-2023 Tobacco smoking status Ex-smoker (finding) [facility] Start: 04-11-2023 Sex Assigned At Male [facility] Tobacco smoking status Never [facility] History of tobacco use Current smoker [facility] History of tobacco use Cigarette Smoker [facility] Start: 04-11-2023 Tobacco use and exposure Smokeless tobacco non-user [facility] Start: 04-11-2023 Alcohol intake Current drinke r of alcohol (finding) [facility] Start: 04-11-2023 History of Social function [facility] Start: 04-10-2023 Alcohol Comment monthly or less [facility] Start: 1945 Sex Assigned At Not on file [facility] Functional Status Date Assessment Result Facility 07-11-2023 Functional Status N/A [facility] 06-18-2022 Functional Status N/A [facility] Clinical Notes 06-18-2021 to 07-11-2023 Note Date & Type Note Facility 07-11-2023 Hospital Discharge instructions Patient Education 07/11/2023 14:31:21 Erectile Dysfunction Erectile Dysfunction Erectile dysfunction (ED) is the inability to get or keep an erection in order to have sexual intercourse. ED is considered a symptom of an underlying disorder and is not considered a disease. ED may include: Inability to get an erection. Lack of enough hardness of the erection to allow penetration. Loss of erection before sex is finished. What are the causes? This condition may be caused by: Physical causes, such as: ?Artery problems. This may include heart disease, high blood pressure, atherosclerosis, and diabetes. ?Hormonal problems, such as low testosterone. ?Obesity. ?Nerve problems. This may include back or pelvic injuries, multiple sclerosis, Parkinson's disease, spinal cord injury, and stroke. Certain medicines, such as: ?Pain relievers. ?Antidepressants. ?Blood pressure medicines and water pills (diuretics). ?Cancer medicines. ?Antihistamines. ?Muscle relaxants. Lifestyle factors, such as: ?Use of drugs such as marijuana, cocaine, or opioids. ?Excessive use of alcohol. ?Smoking. ?Lack of physical activity or exercise. Psychological causes, such as: ?Anxiety or stress. ?Sadness or depression. ?Exhaustion. ?Fear about sexual performance. ?Guilt. What are the signs or symptoms? Symptoms of this condition include: Inability to get an erection. Lack of enough hardness of the erection to allow penetration. Loss of the erection before sex is finished. Sometimes having normal erections, but with frequent unsatisfactory episodes. Low sexual satisfaction in either partner due to erection problems. A curved penis occurring with erection. The curve may cause pain, or the penis may be too curved to allow for intercourse. Never having nighttime or morning erections. How is this diagnosed? This condition is often diagnosed by: Performing a physical exam to find other diseases or specific problems with the penis. Asking you detailed questions about the problem. Doing tests, such as: ?Blood tests to check for diabetes mellitus or high cholesterol, or to measure hormone levels. ?Other tests to check for underlying health conditions. ?An ultrasound exam to check for scarring. ?A test to check blood flow to the penis. Doing a sleep study at home to measure nighttime erections. How is this treated? This condition may be treated by: Medicines, such as: ?Medicine taken by mouth to help you achieve an erection (oral medicine). ?Hormone replacement therapy to replace low testosterone levels. ?Medicine that is injected into the penis. Your health care provider may instruct you how to give yourself these injections at home. ?Medicine that is delivered with a short applicator tube. The tube is inserted into the opening at the tip of the penis, which is the opening of the urethra. A tiny pellet of medicine is put in the urethra. The pellet dissolves and enhances erectile function. This is also called MUSE (medicated urethral system for erections) therapy. Vacuum pump. This is a pump with a ring on it. The pump and ring are placed on the penis and used to create pressure that helps the penis become erect. Penile implant surgery. In this procedure, you may receive: ?An inflatable implant. This consists of cylinders, a pump, and a reservoir. The cylinders can be inflated with a fluid that helps to create an erection, and they can be deflated after intercourse. ?A semi-rigid implant. This consists of two silicone rubber rods. The rods provide some rigidity. They are also flexible, so the penis can both curve downward in its normal position and become straight for sexual intercourse. Blood vessel surgery to improve blood flow to the penis. During this procedure, a blood vessel from a different part of the body is placed into the penis to allow blood to flow around (bypass) damaged or blocked blood vessels. Lifestyle changes, such as exercising more, losing weight, and quitting smoking. Follow these instructions at home: Medicines Take [id number] and prescription medicines only as told by your health care provider. Do not increase the dosage without first discussing it with your health care provider. If you are using self-injections, do injections as directed by your health care provider. Make sure you avoid any veins that are on the surface of the penis. After giving an injection, apply pressure to the injection site for 5 minutes. Talk to your health care provider about how to prevent headaches while taking ED medicines. These medicines may cause a sudden headache due to the increase in blood flow in your body. General instructions Exercise regularly, as directed by your health care provider. Work with your health care provider to lose weight, if needed. Do not use any products that contain nicotine or tobacco. These products include cigarettes, chewing tobacco, and vaping devices, such as e-cigarettes. If you need help quitting, ask your health care provider. Before using a vacuum pump, read the instructions that come with the pump and discuss any questions with your health care provider. Keep all follow-up visits. This is important. Contact a health care provider if: You feel nauseous. You are vomiting. You get sudden headaches while taking ED medicines. You have any concerns about your sexual health. Get help right away if: You are taking oral or injectable medicines and you have an erection that lasts longer than 4 hours. If your health care provider is unavailable, go to the nearest emergency room for evaluation. An erection that lasts much longer than 4 hours can result in permanent damage to your penis. You have severe pain in your groin or abdomen. You develop redness or severe swelling of your penis. You have redness spreading at your groin or lower abdomen. You are unable to urinate. You experience chest pain or a rapid heartbeat (palpitations) after taking oral medicines. These symptoms may represent a serious problem that is an emergency. Do not wait to see if the symptoms will go away. Get medical help right away. Call your local emergency services (911 in the [place] Do not drive yourself to the hospital. Summary Erectile dysfunction (ED) is the inability to get or keep an erection during sexual intercourse. This condition is diagnosed based on a physical exam, your symptoms, and tests to determine the cause. Treatment varies depending on the cause and may include medicines, hormone therapy, surgery, or a vacuum pump. You may need follow-up visits to make sure that you are using your medicines or devices correctly. Get help right away if you are taking or injecting medicines and you have an erection that lasts longer than 4 hours. This information is not intended to replace advice given to you by your health care provider. Make sure you discuss any questions you have with your health care provider. Document Revised: 06/10/2021 Document Reviewed: 06/10/2021 [employer] Patient Education 2022 [employer] App. Follow Up Care 06/18/2022 10:46:56 With:Chris QUINTANA, GEORGE Mitchell, URO Address: When:Within 1 Year(s) [facility] 04-18-2023 Note [facility] Cardiology Clinic Note Chief Complaint: Patient here for follow up heart cath w/ PCI done 02/28/2023. Still denies chest pain and SOB. Doing well. HPI: Jaron Mcarthur is a 77 y.o. male With history of coronary artery disease, silent ischemia, recent cardiac catheterization and PCI of the right coronary artery here in routine follow-up Continues to do well; Just came back from an 18-day hunting trip. States that he seems to walk easier. No real change in symptoms as he had no significant symptoms prior to PCI. Cardiology ROS: Review of Systems Hematologic/Lymphatic: Bruises/bleeds easily. Neurological: Positive for light-headedness. All other systems reviewed and are negative. Past Medical History He has a past medical history of Carotid artery disorder (CMS/HCC), Coronary artery disease, Diabetes mellitus (CMS/HCC), Heart valve disease, Hypertension, and PAD (peripheral artery disease) (CMS/HCC). Surgical History He has a past surgical history that includes CTA aorta and bilateral iliofemoral runoff w and/or wo IV contrast (02/11/2020); CTA neck w and wo IV contrast (03/08/2021); Cataract extraction; Cholecystectomy; Shoulder surgery; Cardiac catheterization; Vascular surgery; and Carotid endarterectomy. Social History He reports that he quit smoking about 4 years ago. His smoking use included cigarettes. He has been exposed to tobacco smoke. He has never used smokeless tobacco. He reports current alcohol use. He reports that he does not use drugs. Family History Family History Problem Relation Name Age of Onset Cancer Father Diabetes Father Allergies Patient has no known allergies. Medications Current Outpatient Medications: aspirin 81 mg EC tablet, Take 81 mg by mouth in the morning., Disp: , Rfl: atorvastatin (Lipitor) 80 mg tablet, Take 1 tablet (80 mg) by mouth at bedtime., Disp: 90 tablet, Rfl: 3 carvedilol (Coreg) 12.5 mg tablet, Take 1 tablet (12.5 mg) by mouth with breakfast and with evening meal., Disp: 180 tablet, Rfl: 3 clopidogrel (Plavix) 75 mg tablet, Take 1 tablet (75 mg) by mouth once daily as directed., Disp: 90 tablet, Rfl: 3 ferrous sulfate 325 (65 Fe) MG tablet, FeroSul 325 mg (65 mg iron) tablet TAKE 1 TABLET BY MOUTH TWICE DAILY, Disp: , Rfl: insulin detemir (Levemir FlexPen) 100 unit/mL (3 mL) pen, 35 Units at bedtime., Disp: , Rfl: metFORMIN (Glucophage) 1,000 mg tablet, Take 1,000 mg by mouth with breakfast., Disp: , Rfl: ramipril (Altace) 5 mg capsule, Take 1 capsule (5 mg) by mouth once daily as directed., Disp: 90 capsule, Rfl: 3 tamsulosin (Flomax) 0.4 mg 24 hr capsule, Take 0.4 mg by mouth in the morning., Disp: , Rfl: Last Recorded Vitals BP 120/60 (BP Location: Left arm, Patient Position: Sitting) Pulse 74 Ht 1.829 m (6') Wt 73.9 kg (163 lb) SpO2 97% BMI 22.11 kg/m??? Physical Examination: GENERAL: alert and oriented x3, well developed, in no acute distress. HEAD: atraumatic, normocephalic. EYES: ESCOBAR, EOMI. NECK: trachea midline, no JVD present, no carotid bruits present. CARDIAC: S1, S2 present. RRR. No murmur, rubs, or gallops. RESPIRATORY: CTAB, no increased effort of breathing, no rales, rhonchi, or wheezing. ABDOMEN: soft, nontender, nondistended. EXTREMITIES: no lower extremity edema, peripheral pulses are 2+ bilaterally. No rash/skin discoloration present. NEURO: strength/sensation equal and symmetric in bilateral upper and lower extremities. PSYCH: appropriate mood, affect, and judgement. INVESTIGATIONS: Lexiscan stress test 01/14/2023: Moderate size, moderate intensity, inferior wall ischemia EF of 52% Normal exercise Transesophageal Echocardiogram-[facility] Name: JARON MCARTHUR Study Date: 02/28/2023 09:41 AM B/P: 149 mmHg/58 mmHg HR: Date of : 1945 Location: [facility] Height: 72 in. Age: 77 year(s) Patient Room : Weight: 156 lb. Gender: Male Patient Status: OutPt BSA: 1.92 m2 Indication: Aortic Valve Stenosis Examination: HARMONY/Limited Doppler/CFI, 3D images Image Quality: Good Patient Consent: Informed, written consent was obtained for the procedure s p @ c 3 Exam Location: A HARMONY was performed in the Band Tier without complications s p @ c 3 Anesthesia Pharyngeal anesthesia with viscous Lidocaine Conclusions Left Ventricle: The left ventricle is normal size. Global left ventricular systolic function is normal. The EF is 55 % visually. Left ventricular wall thickness is normal. No regional wall motion abnormality. Right Ventricle: The right ventricle appears normal in size. Right ventricular systolic function appears normal. Left Atrium: The left atrium is normal in size. IAS: No intracardiac shunt by agitated saline injections. Mitral Valve: Moderate mitral regurgitation with a PISA of 0.8cm and abd EROA 0.22 cm2. Aortic Valve: The aortic valve is normal. Aorta: Moderate atherosc (more content not included)... [facility] 02-28-2023 Note Cardiovascular Labor atory Report FINAL IMPRESSIONS: Severe, calcific, ostial disease of the right coronary artery and proximal in-stent restenosis successfully treated by balloon angioplasty, Shockwave angioplasty/ (IVL - intravascular lithotripsy), and Synergy drug-eluting stent placement Patent stents in the midportion of the right coronary artery Mild to moderate disease of the left anterior descending and left circumflex coronary arteries Low normal global left ventricular systolic function by noninvasive imaging RECOMMENDATIONS: Aspirin 81 mg lifelong Plavix 75 mg daily for minimum of 6 months preferably long-term Aggressive cardiovascular factor modification Optimal medical therapy for coronary artery disease should include dual antiplatelet therapy, moderate intensity statin therapy, beta-denice +/- an angiotensin-converting enzyme inhibitor/receptor denice He will need serial monitoring for his mitral regurgitation which was found to be moderate by transesophageal echocardiography Follow-up with Dr. Campo in the [place] office in the next 1 to 2 months PROCEDURES: Ultrasound-guided access to the left radial artery, bilateral selective coronary angiography via a left radial approach, percutaneous balloon angioplasty, Shockwave angioplasty/intravascular lithotripsy, Synergy drug-eluting stent placement in the right coronary artery METHODS: After risks, benefits, and alternatives were explained, written informed consent was obtained. The patient was prepped and draped in usual sterile fashion over the left wrist. Local infiltration anesthesia was achieved of the left wrist. Using a micropuncture kit, access to the left radial artery was obtained. A 6 Ivorian glide sheath was inserted without difficulty. Bilateral selective coronary angiography was performed using JR 4.0 and JL 4.0 catheters. After reviewing the images, it was elected to proceed with an interventional procedure. A 6 Ivorian JR4 guide catheter with sideholes was advanced in and coaxially engaged into the right coronary ostium. A 0.014 run-through NS wire was advanced through the catheter, across the suspect stenosis and positioned distally. Balloon angioplasty was performed sequentially using a 2.5 x 15 mm noncompliant balloon and subsequently a 3.25 x 20 mm noncompliant balloon. A residual waist was seen; therefore it was elected to proceed with intravascular lithotripsy (IVL). A 3.0 x 12 mm Shockwave balloon was advanced in and across the suspect stenosis. Shockwave angioplasty was performed along the length of the lesion. Repeat angiography showed an improved appearance. An inadequate result was treated using a 3.0 x 48 mm Synergy stent with attention paid to assure coverage of the ostium. This was assisted by use of a 0.014 BMW wire to delineate the aortic cusp. Ostial flaring was performed. Repeat images showed an optimal result. Final images showed HARJIT-3 flow with no dissection thrombus or distal wire trauma. At this juncture, it was elected to conclude the procedure. The catheters were removed. The radial sheath was removed with application of a TR band per protocol to achieve optimal hemostasis. FINDINGS: Hemodynamics: AO 158/73 [90] LEFT VENTRICULOGRAPHY: This was not performed. Ejection fraction is 52% by noninvasive stress test. CORONARY ARTERIES: Left main coronary artery: This arises from the left coronary cusp and bifurcates into the left anterior descending and left circumflex coronary artery it shows calcific plaque but no significant stenoses. Left anterior descending coronary artery: This shows a 40 to 50% ostial stenosis caliber reduction throughout and evidence of left to left collaterals from the apical portion. The diagonal branches are of small caliber. No high-grade stenoses are seen Left circumflex coronary artery: This shows an ostial 30 to 40% stenosis gives rise to a minute first obtuse marginal and a moderate-sized second obtuse marginal continues in the AV groove and the mid to distal portion there is subtotal occlusion there is evidence of left to left collaterals from the left anterior descending. The vessel here is less than 2 mm in size. Right coronary artery: This is a dominant vessel arising from the right coronary cusp and giving rise to the posterior descending and posterolateral branches. Baseline imaging shows a previously placed stented segment from the proximal to midportion of the vessel. There appears to be heavily calcified, 85 to 90% ostial stenosis just prior to the previously placed stent. This was treated using balloon angioplasty, intravascular lithotripsy, and placement of a 3.0 x 48 mm Synergy stent. Final images showed HARJIT-3 flow with no dissection thrombus or distal wire trauma Fluoroscopically: There appears to be calcification at the base of the heart that may represent either pericardial thickening or a prior pseudoaneurys (more content not included)... [facility] 12-29-2022 Note [facility] Cardiology Clinic Note Chief Complaint: Patient here for 4 mo follow up CAD, mitral valve regurgitation, and hypertension. He had echo and labs last month. Still denies chest pain, SOB, and palpitations. His lightheadedness remains unchanged. HPI: Jaron Mcarthur is a 77 y.o. male With a history of coronary artery disease and remote stent placement He was asymptomatic prior to his previous cardiac problems. He currently is asymptomatic with no chest pain, shortness of breath or other cardiovascular symptoms. Cardiology ROS: Review of Systems Hematologic/Lymphatic: Bruises/bleeds easily. Neurological: Positive for light-headedness. All other systems reviewed and are negative. Past Medical History He has a past medical history of Carotid artery disorder (CMS/HCC), Coronary artery disease, Diabetes mellitus (CMS/HCC), Heart valve disease, Hypertension, and PAD (peripheral artery disease) (CMS/HCC). Surgical History He has a past surgical history that includes CTA aorta and bilateral iliofemoral runoff w and/or wo IV contrast (02/11/2020); CTA neck w and wo IV contrast (03/08/2021); Cataract extraction; Cholecystectomy; Shoulder surgery; Cardiac catheterization; Vascular surgery; and Carotid endarterectomy. Social History He reports that he quit smoking about 3 years ago. His smoking use included cigarettes. He has been exposed to tobacco smoke. He has never used smokeless tobacco. He reports current alcohol use. He reports that he does not use drugs. Family History Family History Problem Relation Name Age of Onset Cancer Father Diabetes Father Allergies Patient has no known allergies. Medications Current Outpatient Medications: aspirin 81 mg EC tablet, Take 81 mg by mouth in the morning., Disp: , Rfl: atorvastatin (Lipitor) 80 mg tablet, Take 1 tablet (80 mg) by mouth in the morning. (Patient taking differently: Take 80 mg by mouth at bedtime.), Disp: 90 tablet, Rfl: 3 carvedilol (Coreg) 12.5 mg tablet, carvedilol 12.5 mg tablet TAKE 1 TABLET BY MOUTH TWICE DAILY, Disp: , Rfl: clopidogrel (Plavix) 75 mg tablet, Take 75 mg by mouth in the morning., Disp: , Rfl: dapagliflozin (Farxiga) 5 mg, Take 5 mg by mouth in the morning., Disp: , Rfl: ferrous sulfate 325 (65 Fe) MG tablet, FeroSul 325 mg (65 mg iron) tablet TAKE 1 TABLET BY MOUTH TWICE DAILY, Disp: , Rfl: insulin detemir (Levemir FlexPen) 100 unit/mL (3 mL) pen, Levemir FlexTouch U-100 Insulin 100 unit/mL (3 mL) subcutaneous pen ADMINISTER 50 UNITS UNDER THE SKIN EVERY DAY, Disp: , Rfl: ramipril (Altace) 5 mg capsule, ramipril 5 mg capsule TAKE 1 CAPSULE BY MOUTH EVERY DAY, Disp: , Rfl: tamsulosin (Flomax) 0.4 mg 24 hr capsule, Take 0.4 mg by mouth in the morning., Disp: , Rfl: Last Recorded Vitals BP 130/73 (BP Location: Right arm, Patient Position: Sitting) Pulse 62 Ht 1.829 m (6') Wt 70.8 kg (156 lb) SpO2 94% BMI 21.16 kg/m??? Physical Examination: GENERAL: alert and oriented x3, well developed, in no acute distress. HEAD: atraumatic, normocephalic. EYES: ESCOBAR, EOMI. NECK: trachea midline, no JVD present, no carotid bruits present. CARDIAC: S1, S2 present. RRR. No murmur, rubs, or gallops. RESPIRATORY: CTAB, no increased effort of breathing, no rales, rhonchi, or wheezing. ABDOMEN: soft, nontender, nondistended. EXTREMITIES: no lower extremity edema, peripheral pulses are 2+ bilaterally. No rash/skin discoloration present. NEURO: strength/sensation equal and symmetric in bilateral upper and lower extremities. PSYCH: appropriate mood, affect, and judgement. Investigations: Echocardiogram 11/2022: Conclusion: 1. Global left ventricular systolic function is normal; visually estimated ejection fraction is 55 to 60% 2. Segmental wall motion abnormalities seen 3. Grade 2, moderate diastolic dysfunction 4. Biatrial enlargement 5. Right ventricle is normal in size and systolic function 6. Mild to moderate tricuspid regurgitation; right ventricular systolic pressure is mildly elevated 7. Moderate mitral regurgitation 8. Abnormal echocardiogram; segmental wall motion abnormalities Assessment: Coronary atherosclerosis - silent ischemia in the past Mitral valve regurgitation; moderate Moderate diastolic dysfunction Essential hypertension Diabetes mellitus Moderate COPD Peripheral arterial disease s/p surgical and endovascular intervention with Dr. Javed Tobacco dependence syndrome Plan: Continue optimal medical therapy for coronary artery disease including dual antiplatelet therapy, high intensity statin therapy, a beta-denice and an angiotensin-converting enzyme inhibitor Given diabetes mellitus, he is appropriately on an SGLT2 inhibitor as well as a RAAS inhibitor Given abnormal echocardiogram with segmental wall motion abnormalities, and no recent ischemic evaluation (2019), recommended a Lexiscan stress test If abnormal, we (more content not included)... [facility] 09-20-2022 Note echo [facility] 09-20-2022 Note [facility] Cardiology Clinic Note Chief Complaint: Patient here for 3 mo follow up CAD, mitral valve regurgitation, and hypertension. C/o lightheadedness upon standing up, but is no worse than last visit in May 2022. Denies chest pain and SOB. HPI: Jaron Mcarthur is a 77 y.o. male here for Coronary Artery Disease, Hypertension, Valve Disorder, and peripheral arterial occlusive disease He had a period of time where his shortness of breath had worsened; this was soon after nissa COVID-19 His shortness of breath is currently at baseline He denies chest pain, he has had no orthopnea, paroxysmal external dyspnea, or lower extremity edema. He becomes lightheaded if he is sitting on his recliner for too long and stands up suddenly. Otherwise denies dizziness lightheadedness or syncope. He has had no palpitations. Cardiology ROS: Review of Systems Hematologic/Lymphatic: Bruises/bleeds easily. Neurological: Positive for light-headedness. All other systems reviewed and are negative. Past Medical History He has a past medical history of Carotid artery disorder (CMS/HCC), Coronary artery disease, Diabetes mellitus (CMS/HCC), Heart valve disease, Hypertension, and PAD (peripheral artery disease) (CMS/[facility]). Surgical History He has a past surgical history that includes CTA aorta and bilateral iliofemoral runoff w and/or wo IV contrast (02/11/2020); CTA neck w and wo IV contrast (03/08/2021); Cataract extraction; Cholecystectomy; Shoulder surgery; Cardiac catheterization; Vascular surgery; and Carotid endarterectomy. Social History He reports that he quit smoking about 3 years ago. His smoking use included cigarettes. He has been exposed to tobacco smoke. He has never used smokeless tobacco. He reports current alcohol use. He reports that he does not use drugs. Family History Family History Problem Relation Name Age of Onset Cancer Father Diabetes Father Allergies Patient has no known allergies. Medications Current Outpatient Medications: aspirin 81 mg EC tablet, Take 81 mg by mouth in the morning., Disp: , Rfl: atorvastatin (Lipitor) 80 mg tablet, Take 1 tablet (80 mg) by mouth in the morning. (Patient taking differently: Take 80 mg by mouth at bedtime.), Disp: 90 tablet, Rfl: 3 carvedilol (Coreg) 12.5 mg tablet, carvedilol 12.5 mg tablet TAKE 1 TABLET BY MOUTH TWICE DAILY, Disp: , Rfl: clopidogrel (Plavix) 75 mg tablet, Take 75 mg by mouth in the morning., Disp: , Rfl: ferrous sulfate 325 (65 Fe) MG tablet, FeroSul 325 mg (65 mg iron) tablet TAKE 1 TABLET BY MOUTH TWICE DAILY, Disp: , Rfl: insulin detemir (Levemir FlexPen) 100 unit/mL (3 mL) pen, Levemir FlexTouch U-100 Insulin 100 unit/mL (3 mL) subcutaneous pen ADMINISTER 50 UNITS UNDER THE SKIN EVERY DAY, Disp: , Rfl: metFORMIN (Glucophage) 1,000 mg tablet, Take 1,000 mg by mouth with breakfast and with evening meal., Disp: , Rfl: ramipril (Altace) 5 mg capsule, ramipril 5 mg capsule TAKE 1 CAPSULE BY MOUTH EVERY DAY, Disp: , Rfl: tamsulosin (Flomax) 0.4 mg 24 hr capsule, Take 0.4 mg by mouth in the morning., Disp: , Rfl: Last Recorded Vitals BP 133/65 (BP Location: Left arm, Patient Position: Standing) Pulse 64 Ht 1.829 m (6') Wt 74.4 kg (164 lb) SpO2 97% BMI 22.24 kg/m??? Physical Examination: GENERAL: alert and oriented x3, well developed, in no acute distress. HEAD: atraumatic, normocephalic. EYES: ESCOBAR, EOMI. NECK: trachea midline, no JVD present, no carotid bruits present. CARDIAC: S1, S2 present. RRR. No murmur, rubs, or gallops. RESPIRATORY: CTAB, no increased effort of breathing, no rales, rhonchi, or wheezing. ABDOMEN: soft, nontender, nondistended. EXTREMITIES: no lower extremity edema, peripheral pulses are 2+ bilaterally. No rash/skin discoloration present. NEURO: strength/sensation equal and symmetric in bilateral upper and lower extremities. PSYCH: appropriate mood, affect, and judgement. Investigations: Echocardiogram 06/15/2022: Global left ventricular systolic function is normal; visually estimated ejection fraction is 55 to 60%. Grade 2 diastolic dysfunction. The left atrium is mildly dilated. Right ventricle is normal in size and systolic function. Mild tricuspid regurgitation. Moderately elevated right-sided pressures. Moderate to severe mitral regurgitation; the severity of the mitral regurgitation may be underestimated. Consider transesophageal echocardiography as clinically warranted. Assessment: Coronary atherosclerosis Mitral valve regurgitation; moderate 09/2021, moderate to severe 05/2022 - Asymptomatic Moderate diastolic dysfunction Essential hypertension Diabetes mellitus Moderate COPD Peripheral arterial disease s/p surgical and endovascular intervention with Dr. Javed Tobacco dependence syndrome Plan: We discussed options regarding his mitral regurgitation; in the absence of chamber enlargement, or significan (more content not included)... [facility] 06-25-2022 Note Currently patient fe els well states the symptoms have improved [facility] 06-25-2022 Note Remained stable sinc e patient denies of any worsening symptoms we will continue to monitor [facility] 06-25-2022 Note Remained stable cont inue aspirin, Plavix, Lipitor [facility] 06-25-2022 Note No concerns or sympt oms since last visit [facility] 06-25-2022 Note Normal ejection frac tion,Moderate to severe mitral valve regurg with elevated right-sided pressures noted on recent echo reviewed with patient No concerning symptoms at this time discussed with patient for symptoms to call office which included dyspnea, orthopnea, weight gain, water retention he voiced understanding [facility] 06-25-2022 Note Hypertension is Typi kyree well controlled at home per patient Continue carvedilol, ramipril [facility] 06-25-2022 Note Monitored per vascul ar surgery Dr. Ruiz [facility] 06-25-2022 Note Coronary artery dise ase is Stable without any concerning symptom Continue goal-directed medical therapy- Aspirin, Lipitor, Toprol And ramipril [facility] 06-25-2022 Note UTP CARDIOLOGY PROGR ESS NOTE HPI: Jaron Mcarthur is a 76 y.o. male here for Follow-up (Echo follow up - no other symptoms) 76 y.o. male here for Coronary Artery Disease, Hypertension, Valve Disorder- MVR, and peripheral arterial occlusive disease Patient here for follow up recent echo, CAD, hypertension, MV regurg and PAD. Had labs and several vascular tests in Dec [address] Ruiz. Denied chest pain, worsening shortness of breath with exertion, orthopnea, palpitations, syncope or Lightheadedness/dizziness. At apt in September 2021, Dr. Campo switched him from metoprolol to carvedilol. He had Covid-19 about October of 2021, and ever since then he's noticed BALBUENA. Does get chest pain, and he describes it as feels like I swallowed air . He's also noticed lightheadedness when he gets out of his recliner, while sitting with his feet elevated. Has also had night sweats a few times a week. Review of Systems All other systems reviewed and are negative. Visit Vitals BP 144/67 (BP Location: Left arm, Patient Position: Sitting) Pulse 70 Ht 1.829 m (6') Wt 76.1 kg (167 lb 12.8 oz) SpO2 97% BMI 22.76 kg/m??? Smoking Status Former BSA 1.97 m??? No Known Allergies Medications: Current Outpatient Medications on File Prior to Visit Medication Sig Dispense Refill aspirin 81 mg EC tablet Take 81 mg by mouth in the morning. atorvastatin (Lipitor) 80 mg tablet Take 1 tablet (80 mg) by mouth in the morning. (Patient taking differently: Take 80 mg by mouth at bedtime.) 90 tablet 3 carvedilol (Coreg) 12.5 mg tablet carvedilol 12.5 mg tablet TAKE 1 TABLET BY MOUTH TWICE DAILY clopidogrel (Plavix) 75 mg tablet Take 75 mg by mouth in the morning. ferrous sulfate 325 (65 Fe) MG tablet FeroSul 325 mg (65 mg iron) tablet TAKE 1 TABLET BY MOUTH TWICE DAILY insulin detemir (Levemir FlexPen) 100 unit/mL (3 mL) pen Levemir FlexTouch U-100 Insulin 100 unit/mL (3 mL) subcutaneous pen ADMINISTER 50 UNITS UNDER THE SKIN EVERY DAY metFORMIN (Glucophage) 1,000 mg tablet Take 1,000 mg by mouth with breakfast and with evening meal. ramipril (Altace) 5 mg capsule ramipril 5 mg capsule TAKE 1 CAPSULE BY MOUTH EVERY DAY tamsulosin (Flomax) 0.4 mg 24 hr capsule Take 0.4 mg by mouth in the morning. [DISCONTINUED] aspirin 81 mg chewable tablet in the morning. [DISCONTINUED] metoprolol succinate XL (Toprol-XL) 25 mg 24 hr tablet Take 25 mg by mouth in the morning. No current facility-administered medications on file prior to visit. Physical Exam: Constitutional: Appearance: Normal appearance. Without apparent distress, thin appearing HENT: Head: Normocephalic and atraumatic. Nose: Nose normal. Mouth/Throat: Mouth: Mucous membranes are moist. Eyes: Extraocular Movements: Extraocular movements intact. Conjunctiva/sclera: Conjunctivae normal. Neck: Vascular: No JVD. Cardiovascular: Rate and Rhythm: Normal rate and regular rhythm. Pulses: Dorsalis pedis pulses are 3 on the right side and 3on the left side. Posterior tibial pulses are 3 on the right side and 3 on the left side. Heart sounds: 2/6 RUSB systolic murmur, S1 normal and S2 normal. Pulmonary: Effort: Pulmonary effort is normal. Breath sounds: Normal breath sounds. Abdominal: General: Bowel sounds are normal. Palpations: Abdomen is soft. Musculoskeletal: General: Normal range of motion. Cervical back: Normal range of motion. Right lower leg: No edema. Left lower leg: No edema. Skin: General: Skin is warm and dry. Capillary Refill: Capillary refill takes less than 2 seconds. Neurological: General: No focal deficit present. Mental Status: alert and oriented to person, place, and time. Psychiatric: Mood and Affect: Mood normal. Behavior: Behavior normal. Thought Content: Thought content normal. Judgment: Judgment normal. Labs: 01/05/22 CBC normal BUN 26, CR 1.23 Liver function normal A1C 7.4- elevated 02/28/20 CBC stable Chol 117, Trig 141, HDL 37, LDL 52 Renal function normal Last lab values have been reviewed CV Testing: CV Testin06/11/22 Echo 02/05/2020 Lexiscan Conclusions Normal lexiscan myocardial perfusion study. Left ventricle ejection fraction is normal (56%) with no wall motion abnormalities. No transient ischemic dilatation seen. No ischemic ECG changes seen. 11/16/16 Echo Global left ventricular systolic function is normal (Visually estimated EF 60%). Eccentric left ventricular hypertrophy. Regional wall motion abnormalities. Grade 1, mild diastolic dysfunction (abnormal relaxation). Normal right ventricular systolic function. The left atrium is mildly to moderately enlarged. Mild to moderate mitral regurgitation. Mild tricuspid regurgitation. Doppler studies suggest normal right sided pressures. An echoluscent space is seen in the liver in the subcostal space that likely represents a hepatic cyst; recommend hepatobiliary imaging as appropriate No ec (more content not included)... [facility] 06-25-2022 Note Review of Systems All other systems reviewed and are negative. [facility] 06-16-2022 Hospital Discharge instructions Patient Education 06/16/2022 14:10:08 Benign Prostatic Hyperplasia Benign Prostatic Hyperplasia Benign prostatic hyperplasia (BPH) is an enlarged prostate gland that is caused by the normal aging process and not by cancer. The prostate is a walnut-sized gland that is involved in the production of semen. It is located in front of the rectum and below the bladder. The bladder stores urine and the urethra is the tube that carries the urine out of the body. The prostate may get bigger as a man gets older. An enlarged prostate can press on the urethra. This can make it harder to pass urine. The build-up of urine in the bladder can cause infection. Back pressure and infection may progress to bladder damage and kidney (renal) failure. What are the causes? This condition is part of a normal aging process. However, not all men develop problems from this condition. If the prostate enlarges away from the urethra, urine flow will not be blocked. If it enlarges toward the urethra and compresses it, there will be problems passing urine. What increases the risk? This condition is more likely to develop in men over the age of 50 years. What are the signs or symptoms? Symptoms of this condition include: Getting up often during the night to urinate. Needing to urinate frequently during the day. Difficulty starting urine flow. Decrease in size and strength of your urine stream. Leaking (dribbling) after urinating. Inability to pass urine. This needs immediate treatment. Inability to completely empty your bladder. Pain when you pass urine. This is more common if there is also an infection. Urinary tract infection (UTI). How is this diagnosed? This condition is diagnosed based on your medical history, a physical exam, and your symptoms. Tests will also be done, such as: A post-void bladder scan. This measures any amount of urine that may remain in your bladder after you finish urinating. A digital rectal exam. In a rectal exam, your health care provider checks your prostate by putting a lubricated, gloved finger into your rectum to feel the back of your prostate gland. This exam detects the size of your gland and any abnormal lumps or growths. An exam of your urine (urinalysis). A prostate specific antigen (PSA) screening. This is a blood test used to screen for prostate cancer. An ultrasound. This test uses sound waves to electronically produce a picture of your prostate gland. Your health care provider may refer you to a specialist in kidney and prostate diseases (urologist). How is this treated? Once symptoms begin, your health care provider will monitor your condition (active surveillance or watchful waiting). Treatment for this condition will depend on the severity of your condition. Treatment may include: Observation and yearly exams. This may be the only treatment needed if your condition and symptoms are mild. Medicines to relieve your symptoms, including: ?Medicines to shrink the prostate. ?Medicines to relax the muscle of the prostate. Surgery in severe cases. Surgery may include: ?Prostatectomy. In this procedure, the prostate tissue is removed completely through an open incision or with a laparoscope or robotics. ?Transurethral resection of the prostate (TURP). In this procedure, a tool is inserted through the opening at the tip of the penis (urethra). It is used to cut away tissue of the inner core of the prostate. The pieces are removed through the same opening of the penis. This removes the blockage. ?Transurethral incision (TUIP). In this procedure, small cuts are made in the prostate. This lessens the prostate's pressure on the urethra. ?Transurethral microwave thermotherapy (TUMT). This procedure uses microwaves to create heat. The heat destroys and removes a small amount of prostate tissue. ?Transurethral needle ablation (TUNA). This procedure uses radio frequencies to destroy and remove a small amount of prostate tissue. ?Interstitial laser coagulation (ILC). This procedure uses a laser to destroy and remove a small amount of prostate tissue. ?Transurethral electrovaporization (TUVP). This procedure uses electrodes to destroy and remove a small amount of prostate tissue. ?Prostatic urethral lift. This procedure inserts an implant to push the lobes of the prostate away from the urethra. Follow these instructions at home: Take [id number] and prescription medicines only as told by your health care provider. Monitor your symptoms for any changes. Contact your health care provider with any changes. Avoid drinking large amounts of liquid before going to bed or out in public. Avoid or reduce how much caffeine or alcohol you drink. Give yourself time when you urinate. Keep all follow-up visits as told by your health care provider. This is important. Contact a health care provider if: You have unexplained back pain. Your symptoms do not get better with treatment. You develop side effects from the medicine you are taking. Your urine becomes very dark or has a bad smell. Your lower abdomen becomes distended and you have trouble passing your urine. Get help right away if: You have a fever or chills. You suddenly cannot urinate. You feel lightheaded, or very dizzy, or you faint. There are large amounts of blood or clots in the urine. Your urinary problems become hard to manage. You develop moderate to severe low back or flank pain. The flank is the side of your body between the ribs and the hip. These symptoms may represent a serious problem that is an emergency. Do not wait to see if the symptoms will go away. Get medical help right away. Call your local emergency services (911 in the [place] Do not drive yourself to the hospital. Summary Benign prostatic hyperplasia (BPH) is an enlarged prostate that is caused by the normal aging process and not by cancer. An enlarged prostate can press on the urethra. This can make it hard to pass urine. This condition is part of a normal aging process and is more likely to develop in men over the age of 50 years. Get help right away if you suddenly cannot urinate. This information is not intended to replace advice given to you by your health care provider. Make sure you discuss any questions you have with your health care provider. Document Released: 03/14/2006 Document Revised: 02/06/2019 Document Reviewed: 04/18/2017 [employer] Patient Education 2020 [employer]. Follow Up Care 06/18/2021 11:18:31 With:Chris QUINTANA, GEORGE Mitchell, URO Address: When: Unknown [facility] 04-30-2022 Note pulm [facility] 04-30-2022 Note Referral to pulmonar y Ordered PFT to assess pulm function [facility] 04-30-2022 Note Will order echocardi ogram to assess cardiac function and Rt sided pressures [facility] 04-30-2022 Note Hypertension is 162/ 74 supine and decreased by 30 points standing to 132/67 Continue all current medications, start to record b/p at home and RTC in 1 month for review. [facility] 04-30-2022 Note incresase hydration- typically only drinks coffee and coke Change positions well [facility] 04-30-2022 Note Coronary artery dise ase is stable Continue ASA, coreg, plavix, ramipril continue risk factor modifications- heart healthy diet, regular exercise as tolerated and continue all medications. [facility] 04-30-2022 Note UTP CARDIOLOGY PROGR ESS NOTE HPI: Jaron Mcarthur is a 76 y.o. male here for Coronary Artery Disease, Hypertension, Valve Disorder, and peripheral arterial occlusive disease Patient here for 6 mo follow up CAD, hypertension, and PAD. Had labs and several vascular tests in [place] [address] Ruiz. At last apt in September 2021, Dr. Campo switched him from metoprolol to carvedilol. He had Covid-19 about 4 months ago and ever since then he's noticed BALBUENA. Does get chest pain, and he describes it as feels like I swallowed air . He's also noticed lightheadedness when he gets out of his recliner, while sitting with his feet elevated. Has also had night sweats a few times a week. Review of Systems Constitutional: Positive for night sweats. HENT: Positive for tinnitus. Cardiovascular: Positive for chest pain and dyspnea on exertion. Hematologic/Lymphatic: Bruises/bleeds easily. Musculoskeletal: Positive for arthritis, back pain and joint pain. Neurological: Positive for light-headedness. All other systems reviewed and are negative. Visit Vitals BP 132/67 (BP Location: Left arm, Patient Position: Standing) Pulse 92 Ht 1.829 m (6') Wt 74.4 kg (164 lb) BMI 22.24 kg/m??? Smoking Status Former BSA 1.94 m??? No Known Allergies Medications: Current Outpatient Medications on File Prior to Visit Medication Sig Dispense Refill aspirin 81 mg chewable tablet in the morning. atorvastatin (Lipitor) 80 mg tablet Take 1 tablet (80 mg) by mouth in the morning. (Patient taking differently: Take 80 mg by mouth at bedtime.) 90 tablet 3 carvedilol (Coreg) 12.5 mg tablet carvedilol 12.5 mg tablet TAKE 1 TABLET BY MOUTH TWICE DAILY clopidogrel (Plavix) 75 mg tablet Take 75 mg by mouth in the morning. ferrous sulfate 325 (65 Fe) MG tablet FeroSul 325 mg (65 mg iron) tablet TAKE 1 TABLET BY MOUTH TWICE DAILY insulin detemir (Levemir FlexPen) 100 unit/mL (3 mL) pen Levemir FlexTouch U-100 Insulin 100 unit/mL (3 mL) subcutaneous pen ADMINISTER 50 UNITS UNDER THE SKIN EVERY DAY metFORMIN (Glucophage) 1,000 mg tablet Take 1,000 mg by mouth with breakfast and with evening meal. ramipril (Altace) 5 mg capsule ramipril 5 mg capsule TAKE 1 CAPSULE BY MOUTH EVERY DAY tamsulosin (Flomax) 0.4 mg 24 hr capsule Take 0.4 mg by mouth in the morning. No current facility-administered medications on file prior to visit. Physical Exam: Constitutional: Appearance: Normal appearance. Without apparent distress HENT: Head: Normocephalic and atraumatic. Nose: Nose normal. Mouth/Throat: Mouth: Mucous membranes are moist. Eyes: Extraocular Movements: Extraocular movements intact. Conjunctiva/sclera: Conjunctivae normal. Neck: Vascular: No JVD. Cardiovascular: Rate and Rhythm: Normal rate and regular rhythm. Pulses: Dorsalis pedis pulses are 2 on the right side and 2on the left side. Posterior tibial pulses are 2 on the right side and 2 on the left side. Heart sounds: Normal heart sounds, S1 normal and S2 normal. Pulmonary: Effort: Pulmonary effort is normal. Breath sounds: Normal breath sounds. Abdominal: General: Bowel sounds are normal. Palpations: Abdomen is soft. Musculoskeletal: General: Normal range of motion. Cervical back: Normal range of motion. Right lower leg: No edema. Left lower leg: No edema. Skin: General: Skin is warm and dry. Capillary Refill: Capillary refill takes less than 2 seconds. Neurological: General: No focal deficit present. Mental Status: alert and oriented to person, place, and time. Psychiatric: Mood and Affect: Mood normal. Behavior: Behavior normal. Thought Content: Thought content normal. Judgment: Judgment normal. Labs: 01/05/22 CBC normal BUN 26, CR 1.23 Liver function normal A1C 7.4- elevated 02/28/20 CBC stable Chol 117, Trig 141, HDL 37, LDL 52 Renal function normal Last lab values have been reviewed CV Testin02/05/2020 Lexiscan Conclusions Normal lexiscan myocardial perfusion study. Left ventricle ejection fraction is normal (56%) with no wall motion abnormalities. No transient ischemic dilatation seen. No ischemic ECG changes seen. 11/16/16 Echo Global left ventricular systolic function is normal (Visually estimated EF 60%). Eccentric left ventricular hypertrophy. Regional wall motion abnormalities. Grade 1, mild diastolic dysfunction (abnormal relaxation). Normal right ventricular systolic function. The left atrium is mildly to moderately enlarged. Mild to moderate mitral regurgitation. Mild tricuspid regurgitation. Doppler studies suggest normal right sided pressures. An echoluscent space is seen in the liver in the subcostal space that likely represents a hepatic cyst; recommend hepatobiliary imaging as appropriate No echocardiogram results found for the past 12 months 04/13/2006 Cath Assessment/Plan: Coronary arteriosclerosis Coronary artery disease is stable Continue ASA, coreg, (more content not included)... [facility] 04-30-2022 Note Patient here for 6 m o follow up CAD, hypertension, and PAD. Had labs and several vascular tests in Dec [address] Ruiz. At last apt in September 2021, Dr. Campo switched him from metoprolol to carvedilol. He had Covid-19 about 4 months ago and ever since then he's noticed BALBUENA. Does get chest pain, and he describes it as feels like I swallowed air . He's also noticed lightheadedness when he gets out of his recliner, while sitting with his feet elevated. Has also had night sweats a few times a week. Review of Systems Constitutional: Positive for night sweats. HENT: Positive for tinnitus. Cardiovascular: Positive for chest pain and dyspnea on exertion. Hematologic/Lymphatic: Bruises/bleeds easily. Musculoskeletal: Positive for arthritis, back pain and joint pain. Neurological: Positive for light-headedness. All other systems reviewed and are negative. [facility] 06-18-2021 Hospital Discharge instructions Patient Education 06/18/2021 11:19:48 Calorie Counting for Weight Loss Calorie Counting for Weight Loss Calories are units of energy. Your body needs a certain amount of calories from food to keep you going throughout the day. When you eat more calories than your body needs, your body stores the extra calories as fat. When you eat fewer calories than your body needs, your body moore fat to get the energy it needs. Calorie counting means keeping track of how many calories you eat and drink each day. Calorie counting can be helpful if you need to lose weight. If you make sure to eat fewer calories than your body needs, you should lose weight. Ask your health care provider what a healthy weight is for you. For calorie counting to work, you will need to eat the right number of calories in a day in order to lose a healthy amount of weight per week. A dietitian can help you determine how many calories you need in a day and will give you suggestions on how to reach your calorie goal. A healthy amount of weight to lose per week is usually 1 2 lb (0.5 0.9 kg). This usually means that your daily calorie intake should be reduced by 500 750 calories. Eating 1,200 1,500 calories per day can help most women lose weight. Eating 1,500 1,800 calories per day can help most men lose weight. What is my plan? My goal is to have calories per day. If I have this many calories per day, I should lose around pounds per week. What do I need to know about calorie counting? In order to meet your daily calorie goal, you will need to: Find out how many calories are in each food you would like to eat. Try to do this before you eat. Decide how much of the food you plan to eat. Write down what you ate and how many calories it had. Doing this is called keeping a food log. To successfully lose weight, it is important to balance calorie counting with a healthy lifestyle that includes regular activity. Aim for 150 minutes of moderate exercise (such as walking) or 75 minutes of vigorous exercise (such as running) each week. Where do I find calorie information? The number of calories in a food can be found on a Nutrition Facts label. If a food does not have a Nutrition Facts label, try to look up the calories online or ask your dietitian for help. Remember that calories are listed per serving. If you choose to have more than one serving of a food, you will have to multiply the calories per serving by the amount of servings you plan to eat. For example, the label on a package of bread might say that a serving size is 1 slice and that there are 90 calories in a serving. If you eat 1 slice, you will have eaten 90 calories. If you eat 2 slices, you will have eaten 180 calories. How do I keep a food log? Immediately after each meal, record the following information in your food log: What you ate. Don't forget to include toppings, sauces, and other extras on the food. How much you ate. This can be measured in cups, ounces, or number of items. How many calories each food and drink had. The total number of calories in the meal. Keep your food log near you, such as in a small notebook in your pocket, or use a mobile dandre or website. Some programs will calculate calories for you and show you how many calories you have left for the day to meet your goal. What are some calorie counting tips? Use your calories on foods and drinks that will fill you up and not leave you hungry: ?Some examples of foods that fill you up are nuts and nut butters, vegetables, lean proteins, and high-fiber foods like whole grains. High-fiber foods are foods with more than 5 g fiber per serving. ?Drinks such as sodas, specialty coffee drinks, alcohol, and juices have a lot of calories, yet do not fill you up. Eat nutritious foods and avoid empty calories. Empty calories are calories you get from foods or beverages that do not have many vitamins or protein, such as candy, sweets, and soda. It is better to have a nutritious high-calorie food (such as an avocado) than a food with few nutrients (such as a bag of chips). Know how many calories are in the foods you eat most often. This will help you calculate calorie counts faster. Pay attention to calories in drinks. Low-calorie drinks include water and unsweetened drinks. Pay attention to nutrition labels for low fat or fat free foods. These foods sometimes have the same amount of calories or more calories than the full fat versions. They also often have added sugar, starch, or salt, to make up for flavor that was removed with the fat. Find a way of tracking calories that works for you. Get creative. Try different apps or programs if writing down calories does not work for you. What are some portion control tips? Know how many calories are in a serving. This will help you know how many servings of a certain food you can have. Use a measuring cup to measure serving sizes. You could also try weighing out portions on a kitchen scale. With time, you will be able to estimate serving sizes for some foods. Take some time to put servings of different foods on your favorite plates, bowls, and cups so you know what a serving looks like. Try not to eat straight from a bag or box. Doing this can lead to overeating. Put the amount you would like to eat in a cup or on a plate to make sure you are eating the right portion. Use smaller plates, glasses, and bowls to prevent overeating. Try not to multitask (for example, watch TV or use your computer) while eating. If it is time to eat, sit down at a table and enjoy your food. This will help you to know when you are full. It will also help you to be aware of what you are eating and how much you are eating. What are tips for following this plan? Reading food labels Check the calorie count compared to the serving size. The serving size may be smaller than what you are used to eating. Check the source of the calories. Make sure the food you are eating is high in vitamins and protein and low in saturated and trans fats. Shopping Read nutrition labels while you shop. This will help you make healthy decisions before you decide to purchase your food. Make a grocery list and stick to it. Cooking Try to cook your favorite foods in a healthier way. For example, try baking instead of frying. Use low-fat dairy products. Meal planning Use more fruits and vegetables. Half of your plate should be fruits and vegetables. Include lean proteins like poultry and fish. How do I count calories when eating out? Ask for smaller portion sizes. Consider sharing an entree and sides instead of getting your own entree. If you get your own entree, eat only half. Ask for a box at the beginning of your meal and put the rest of your entree in it so you are not tempted to eat it. If calories are listed on the menu, choose the lower calorie options. Choose dishes that include vegetables, fruits, whole grains, low-fat dairy products, and lean protein. Choose items that are boiled, broiled, grilled, or steamed. Stay away from items that are buttered, battered, fried, or served with cream sauce. Items labeled crispy are usually fried, unless stated otherwise. Choose water, low-fat milk, unsweetened iced tea, or other drinks without added sugar. If you want an alcoholic beverage, choose a lower calorie option such as a glass of wine or light beer. Ask for dressings, sauces, and syrups on the side. These are usually high in calories, so you should limit the amount you eat. If you want a salad, choose a garden salad and ask for grilled meats. Avoid extra toppings like kirby, cheese, or fried items. Ask for the dressing on the side, or ask for olive oil and vinegar or lemon to use as dressing. Estimate how many servings of a food you are given. For example, a serving of cooked rice is cup or about the size of half a baseball. Knowing serving sizes will help you be aware of how much food you are eating at restaurants. The list below tells you how big or small some common portion sizes are based on everyday objects: ?1 oz 4 stacked dice. ?3 oz 1 deck of cards. ?1 tsp 1 . ?1 Tbsp a ping-pong ball. ?2 Tbsp 1 ping-pong ball. ? cup baseball. ?1 cup 1 baseball. Summary Calorie counting means keeping track of how many calories you eat and drink each day. If you eat fewer calories than your body needs, you should lose weight. A healthy amount of weight to lose per week is usually 1 2 lb (0.5 0.9 kg). This usually means reducing your daily calorie intake by 500 750 calories. The number of calories in a food can be found on a Nutrition Facts label. If a food does not have a Nutrition Facts label, try to look up the calories online or ask your dietitian for help. Use your calories on foods and drinks that will fill you up, and not on foods and drinks that will leave you hungry. Use smaller plates, glasses, and bowls to prevent overeating. This information is not intended to replace advice given to you by your health care provider. Make sure you discuss any questions you have with your health care provider. Document Released: 03/14/2006 Document Revised: 12/01/2018 Document Reviewed: 02/11/2017 [employer] Patient Education 2020 [employer] App. 06/18/2021 11:19:47 Benign Prostatic Hyperplasia Benign Prostatic Hyperplasia Benign prostatic hyperplasia (BPH) is an enlarged prostate gland that is caused by the normal aging process and not by cancer. The prostate is a walnut-sized gland that is involved in the production of semen. It is located in front of the rectum and below the bladder. The bladder stores urine and the urethra is the tube that carries the urine out of the body. The prostate may get bigger as a man gets older. An enlarged prostate can press on the urethra. This can make it harder to pass urine. The build-up of urine in the bladder can cause infection. Back pressure and infection may progress to bladder damage and kidney (renal) failure. What are the causes? This condition is part of a normal aging process. However, not all men develop problems from this condition. If the prostate enlarges away from the urethra, urine flow will not be blocked. If it enlarges toward the urethra and compresses it, there will be problems passing urine. What increases the risk? This condition is more likely to develop in men over the age of 50 years. What are the signs or symptoms? Symptoms of this condition include: Getting up often during the night to urinate. Needing to urinate frequently during the day. Difficulty starting urine flow. Decrease in size and strength of your urine stream. Leaking (dribbling) after urinating. Inability to pass urine. This needs immediate treatment. Inability to completely empty your bladder. Pain when you pass urine. This is more common if there is also an infection. Urinary tract infection (UTI). How is this diagnosed? This condition is diagnosed based on your medical history, a physical exam, and your symptoms. Tests will also be done, such as: A post-void bladder scan. This measures any amount of urine that may remain in your bladder after you finish urinating. A digital rectal exam. In a rectal exam, your health care provider checks your prostate by putting a lubricated, gloved finger into your rectum to feel the back of your prostate gland. This exam detects the size of your gland and any abnormal lumps or growths. An exam of your urine (urinalysis). A prostate specific antigen (PSA) screening. This is a blood test used to screen for prostate cancer. An ultrasound. This test uses sound waves to electronically produce a picture of your prostate gland. Your health care provider may refer you to a specialist in kidney and prostate diseases (urologist). How is this treated? Once symptoms begin, your health care provider will monitor your condition (active surveillance or watchful waiting). Treatment for this condition will depend on the severity of your condition. Treatment may include: Observation and yearly exams. This may be the only treatment needed if your condition and symptoms are mild. Medicines to relieve your symptoms, including: ?Medicines to shrink the prostate. ?Medicines to relax the muscle of the prostate. Surgery in severe cases. Surgery may include: ?Prostatectomy. In this procedure, the prostate tissue is removed completely through an open incision or with a laparoscope or robotics. ?Transurethral resection of the prostate (TURP). In this procedure, a tool is inserted through the opening at the tip of the penis (urethra). It is used to cut away tissue of the inner core of the prostate. The pieces are removed through the same opening of the penis. This removes the blockage. ?Transurethral incision (TUIP). In this procedure, small cuts are made in the prostate. This lessens the prostate's pressure on the urethra. ?Transurethral microwave thermotherapy (TUMT). This procedure uses microwaves to create heat. The heat destroys and removes a small amount of prostate tissue. ?Transurethral needle ablation (TUNA). This procedure uses radio frequencies to destroy and remove a small amount of prostate tissue. ?Interstitial laser coagulation (ILC). This procedure uses a laser to destroy and remove a small amount of prostate tissue. ?Transurethral electrovaporization (TUVP). This procedure uses electrodes to destroy and remove a small amount of prostate tissue. ?Prostatic urethral lift. This procedure inserts an implant to push the lobes of the prostate away from the urethra. Follow these instructions at home: Take [id number] and prescription medicines only as told by your health care provider. Monitor your symptoms for any changes. Contact your health care provider with any changes. Avoid drinking large amounts of liquid before going to bed or out in public. Avoid or reduce how much caffeine or alcohol you drink. Give yourself time when you urinate. Keep all follow-up visits as told by your health care provider. This is important. Contact a health care provider if: You have unexplained back pain. Your symptoms do not get better with treatment. You develop side effects from the medicine you are taking. Your urine becomes very dark or has a bad smell. Your lower abdomen becomes distended and you have trouble passing your urine. Get help right away if: You have a fever or chills. You suddenly cannot urinate. You feel lightheaded, or very dizzy, or you faint. There are large amounts of blood or clots in the urine. Your urinary problems become hard to manage. You develop moderate to severe low back or flank pain. The flank is the side of your body between the ribs and the hip. These symptoms may represent a serious problem that is an emergency. Do not wait to see if the symptoms will go away. Get medical help right away. Call your local emergency services (911 in the [place] Do not drive yourself to the hospital. Summary Benign prostatic hyperplasia (BPH) is an enlarged prostate that is caused by the normal aging process and not by cancer. An enlarged prostate can press on the urethra. This can make it hard to pass urine. This condition is part of a normal aging process and is more likely to develop in men over the age of 50 years. Get help right away if you suddenly cannot urinate. This information is not intended to replace advice given to you by your health care provider. Make sure you discuss any questions you have with your health care provider. Document Released: 03/14/2006 Document Revised: 02/06/2019 Document Reviewed: 04/18/2017 [employer] Patient Education 2019 [employer] App. Follow Up Care 06/12/2020 11:26:53 With:ZULMA QUINTANA, Carlitos Villar, URL Address: [address] [place] [phone] When:Within 1 Year(s) Comments:w/GHAZALA [facility] Evaluation + Plan note Future Appointments Appointment Date:06/18/2022 10:00:00 AM Scheduled Provider:Chris QUINTANA, Deja Henry Location:[facility] Appointment Type:URO Office Visit Diagnostic Tests PendingPSA Total 06/18/21 [facility] Evaluation + Plan note Future Appointments Appointment Date:06/23/2023 10:00:00 AM Scheduled Provider:Deja Perez MD Location:[facility] Appointment Type:URO Office Visit Diagnostic Tests PendingPSA Free & Total 06/18/22 [facility] [employer] Evaluation + Plan note Future Appointments Appointment Date:07/04/2024 10:45:00 AM Scheduled Provider:Deja Perez MD Location:[facility] Appointment Type:URO Office Visit Diagnostic Tests PendingPSA Screen, Total 07/11/23 [facility] [employer] Hospital course Narrative No data available for this section [facility] [employer] Progress note No data available for this section [facility] [employer] Summary Purpose Family History No Family History Records FoundNo Family History Records FoundNo Family History Records FoundNo Family History Records Found No data available for this section No Family History Records FoundNo Family History Records Found Advance Directives No Advanced Directives Records FoundNo Advanced Directives Records FoundNo Advanced Directives Records FoundNo Advanced Directives Records FoundNo Advanced Directives Records FoundNo Advanced Directives Records Found Additional Source Comments (unrecognized sect ion and content) No Status Records FoundNo Status Records FoundNo Status Records FoundNo Status Records FoundNo Status Records FoundNo Status Records Found INFORMATION SOURCE (unrecogn ized section and content) DATE CREATED AUTHOR 03/08/2021 [facility] DATE CREATED AUTHOR AUTHOR'S ORGANIZ ATION 06/20/2022 [facility] DATE CREATED AUTHOR AUTHOR'S ORGANIZ ATION 04/18/2023 [facility] DATE CREATED AUTHOR AUTHOR'S ORGANIZ ATION 07/07/2023 [facility] DATE CREATED AUTHOR AUTHOR'S ORGANIZ ATION 07/15/2023 [facility] DATE CREATED AUTHOR AUTHOR'S ORGANIZ ATION 08/10/2023 [facility] EPIC Patient Care team informatio n (unrecognized section and content) Javascript Web 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 Relationship Specialty Start Date End Date Prabhjot Villatoro MD [address] [place] [phone] PCP - General Family Medicine 04/06/23 Marisol Boyce NP [address] [place] [phone] Nurse Practitioner Family Medicine 03/28/22 Javascript [employer] Developer Relationship Specialty Start Date End Date Prabhjot Villatoro MD [address] [place] [phone] PCP - General Family Medicine 04/06/23 Marisol Boyce NP [address] [place] [phone] Nurse Practitioner Family Medicine 03/28/22 FOR RECORDS PERTAINING TO PATIENTS WHO ARE OR HAVE BEEN ENROLLED IN A CHEMICAL DEPENDENCY/SUBSTANCEABUSE PROGRAM, SOME INFORMATION MAY BE OMITTED. This clinical summary was aggregated from multiple sources. Caution should be exercised in using it in the provision of clinical care. This summary normalizes information from multiple sources, and as a consequence, information in this document may materially change the coding, format and clinical context of patient data. In addition, data may be omitted in some cases. CLINICAL DECISIONS SHOULD BE BASED ON THE PRIMARY CLINICAL RECORDS. [employer] [facility]. provides no warranty or guarantee of the accuracy or completeness of information in this document.
[2023-09-30 10:05] LABS: Basophils Absolute Auto 0.1 10^3/uL (0.0-0.1); Basophils Percent Auto 0.7 % (0.2-2.0); Eosinophils Absolute Auto 0.3 10^3/uL (0.0-0.7); Eosinophils Percent Auto 3.1 % (0.9-7.0); Hematocrit 44.2 % (42.0-54.0); Hemoglobin 14.7 g/dL (14.0-18.0); Immature Granulocytes Abs Auto 0.05 10^3/uL (0.00-0.03); Immature Granulocytes Pct Auto 0.6 % (0.0-0.5); Lymphocytes Percent Auto 22.4 % (20.5-60.0); Mean Corpuscular HGB Conc 33.3 g/dL (29.9-35.2); Mean Corpuscular Hemoglobin 30.4 pg (25.9-34.0); Mean Corpuscular Volume 91.5 fL (80.0-94.0); Mean Platelet Volume 10.2 fL (9.5-13.5); Monocytes Absolute Auto 0.6 10^3/uL (0.3-0.8); Monocytes Percent Auto 6.2 % (1.7-12.0); Neutrophils Absolute Auto 5.9 10^3/uL (1.4-6.5); Platelet Count 166 10^3/uL (150-450); Red Blood Count 4.83 10^6/uL (4.70-6.10); Red Cell Distribution Width 12.9 % (11.0-15.0); White Blood Count 8.8 10^3/uL (4.0-11.0)
[2023-09-30] MEDS: DILTIAZEM HCL 25 MG/5 ML VIAL 20 MG IV (10:07)
[2023-09-30] MEDS: dilTIAZem HCL 125 MG in 0.9 % SODIUM CHLORIDE 100 ML 10 MG IV (10:14)
--- NOTE | 2023-09-30 10:31 | ECG_ITS ---
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
[2023-09-30 10:38] LABS: Alanine Aminotransferase 25 U/L (16-63); Albumin Globulin Ratio 1.1; Albumin Level 3.6 g/dL (3.4-5.0); Alkaline Phosphatase 93 U/L (46-116); Anion Gap 12.8; Aspartate Amino Transferase 16 U/L (15-37); Bilirubin Total 0.7 mg/dL (0.2-1.0); Calcium 8.6 mg/dL (8.5-10.1); Carbon Dioxide 27.2 mmol/L (21.0-32.0); Chloride 106 mmol/L (98-107); Estimated GFR (African America >60 (>=60); Estimated GFR (Non-African Ame >60 (>=60); Globulin 3.3 g/dL; Glucose 135 mg/dL (74-106); Sodium 142 mmol/L (136-145); Total Protein 6.9 g/dL (6.4-8.2)
[2023-09-30 10:40] LABS: Troponin I High Sensitivity 108.7 pg/mL (4.0-76.1)
[2023-09-30 11:20] LABS: INR 0.96; Prothrombin Time 10.2 sec (9.0-11.6)
[2023-09-30 11:23] LABS: Partial Thromboplastin Time 26.8 sec (22.3-36.2)
[2023-09-30] MEDS: HEPARIN SODIUM (PORCINE) 5,000 UNIT/ML VIAL 3100 UNIT IV (11:26)
[2023-09-30] MEDS: HEPARIN SODIUM,PORCINE/D5W 25,000 UNIT/500 ML IV.SOLN 18.5070000000000014 UNIT IV (11:26)
[2023-09-30 12:24] LABS: Troponin I High Sensitivity 1182.5 pg/mL (4.0-76.1)
== END 2023-09-30 13:27 | disposition short-term general hospital (02) ==
PROVIDERS: Emergency Provider Emergency Medicine Emergency Medical Services; PCP Nurse Practitioner
DX: I21.4 Non-ST elevation (NSTEMI) myocardial infarction (principal); I25.10 Atherosclerotic heart disease of native coronary artery without angina pectoris; Z95.5 Presence of coronary angioplasty implant and graft; Z79.02 Long term (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 of antithrombotics/antiplatelets
CPT/HCPCS: 36415; 71045; 80053; 83880; 84484; 85025; 85610; 85730; 93005; 96365; 96366; 96375; 96376; 99285; 99999; J1644

== ENCOUNTER 2023-10-21 11:07 | Outpatient (OUT) | payer MEDICARE, OTHER, SELFPAY ==
--- OUTSIDE RECORDS SUMMARY | 2023-10-21 11:17 | XMS_ITS | CCD ---
Author Organization [facility] Care Team Providers Care 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 Name Role Phone MARISOL BOYCE Primary Care Physician Unavaila ble AICHHOLZ, CINDER DUMP CRANE OPERATOR MARISOL Admitting Unavailable AICHHOLZ, CINDER DUMP CRANE OPERATOR MARISOL Attending Unavailable AICHHOLZ, CINDER DUMP CRANE OPERATOR MARISOL Primary Care Unavailable AICHHOLZ, CINDER DUMP CRANE OPERATOR MARISOL Consulting Unavailable AICHHOLZ, CINDER DUMP CRANE OPERATOR MARISOL Admitting Unavailable AICHHOLZ, CINDER DUMP CRANE OPERATOR MARISOL Attending Unavailable AICHHOLZ, CINDER DUMP CRANE OPERATOR MARISOL Primary Care Unavailable AICHHOLZ, CINDER DUMP CRANE OPERATOR MARISOL Consulting Unavailable DR SANJAY REECE Consulting Unavailable ROSEANNA, MARCO Admitting Unavailable ROSEANNA, MARCO Attending Unavailable AICHHOLZ, CINDER DUMP CRANE OPERATOR MARISOL Primary Care Unavailable ROSEANNA, MARCO Consulting Unavailable AICHHOLZ, CINDER DUMP CRANE OPERATOR MARISOL Admitting Unavailable AICHHOLZ, CINDER DUMP CRANE OPERATOR MARISOL Attending Unavailable AICHHOLZ, CINDER DUMP CRANE OPERATOR MARISOL Primary Care Unavailable AICHHOLZ, CINDER DUMP CRANE OPERATOR MARISOL Consulting Unavailable FLOR, DWAIN Admitting Unavailable FLOR, DWAIN Attending Unavailable AICHHOLZ, CINDER DUMP CRANE OPERATOR MARISOL Primary Care Unavailable FLOR, DWAIN Consulting Unavailable [employer] AUTO SERVICE DISPATCHER, Marisol Unavailable Prabhjot Villatoro MD Primary Care Provider [phone] MARISOL BOYCE Primary Care Physician ELLA BECKER Attending Unavailable Deja Perez Attending Unavailable AICHHOLZ, MARISOL Attending Unavailable AICHHOLZ, MARISOL Attending Unavailable AICHHOLZ, MARISOL Attending Unavailable AICHHOLZ, MARISOL Attending Unavailable ELLA BECKER Referring Unavailable CARLI, MARISOL Didi Primary Care Unavailable ROSEANNEHSINCERE, MARISOL J Referring Unavailable AICHHOLZ, MARISOL J Primary Care Unavailable CARLI, MARISOL Tolbert Referring Unavailable MARISOL BOYCE Primary Care Unavailable ELIZABETH, AILEEN Tolbert Referring Unavailabl e KULAKOJOANN, AILEEN Tolbert Referring Unavailabl e ZENZ, DOTTIE Referring Unavailable ELTAHAWY, EHAB Referring Unavailable KARLY, ALEKBrooklynn Referring Unavailable ELIZABETH, AILEEN Tolbert Referring Unavailabl e JN, Referring Unavailable KULAKOJOANN, AILEEN Tolbert Referring Unavailabl e KULAKOWSKI, AILEEN Tolbert Referring Unavailabl e ELTAHAWY, EHAB Attending Unavailable ELTAHAWY, EHAB Referring Unavailable ELTAHAWY, EHAB Referring Unavailable ELTAHAWY, EHAB Attending Unavailable KULAKOOTFKI, AILEEN Tolbert Referring Unavailabl e ELTAHAWY, EHAB Attending Unavailable REINGEO SALEEM Referring Unavailable CAPRIDAVID BRADSHAW Attending Unavailable DAVID FAROOQ Consulting Unavailable TWYLA POLANCO Admitting Unavailable ELTAHAWY, EHAB Attending Unavailable ELTAHAWY, EHAB Admitting Unavailable Medications Current Medications Medication Drug Class(es) [...] 12.5 mg oral tablet (2 sources) alpha-Adrenergic Cesilia, beta-Adrenergic Cesilia take 6.25 mg by mouth in the [...] (5 sources) P2Y12 Platelet Inhibitor Start: 03-12-20 End: 06-23-19 take 1 tablet by mouth in the morning clopidogrel (Plavix) 75 MG tablet Indications: Coronary artery disease involving iqugmiut coronary artery of [place]qugmiut heart without angina pectoris (CMS/HCC) , PAD (peripheral artery disease) (CMS/[facility]) Take 1 tablet (75 mg) by mouth in the morning. 90 tablet 1 03/25/2023 06/23/2023 Active dapagliflozin 10 mg oral tablet (1 source) Sodium-Glucose Cotransporter 2 Inhibitor Start: 07-11-19 take 1 tablet by mouth once daily [...] complication, with long-term current use of insulin ([facility]) Up to 50 units daily 15 each 1 03/22/2023 Active metFORMIN hydrochloride 1000 mg oral tablet (4 sources) Biguanide Start: 03-12-2013 take 1000 mg by mouth twice daily metformin 1,000 mg, Oral, BID, Refills(s) 0, High blood sugar Start Date: 03/12/13 Status: Ordered Metoprolol (3 sources) beta-Adrenergic Cesilia Start: 03-12-2013 metoprolol Oral, Daily, Refills(s) 0, [...] 0.4 mg oral capsule (5 sources) alpha-Adrenergic Cesilia Start: 06-18-2022 take 1 capsule by mouth once daily tamsulosin 0.4 mg Cap 0.4 mg = 1 cap(s), Oral, Daily, # 90 cap(s), Refills(s) 3, Pharmacy: [facility] #[id number], 77.8, kg, 06/18/22 9:54:00 EDT, Weight Dosing Start Date: 06/18/22 Status: Ordered Start: 06-18-2021 take 1 capsule by mo [facility] once daily tamsulosin 0.4 mg Cap 0.4 mg = 1 cap(s), Oral, Daily, # 90 cap(s), Refills(s) 3, Pharmacy: [facility] #[id number], 183, cm, 06/12/20 10:33:00 EDT, Height/Length Dosing, 84.5, kg, 06/12/20 10:33:00 EDT, Weight Dosing Start Date: 06/18/21 Status: Ordered take 1 capsule by [facility] every twenty-four hours at bedtime tamsulosin (Flomax) [...] hrs., # 10 tab(s), Refills(s) 5, Pharmacy: [facility] #[id number], 182, cm, 07/11/23 14:01:00 EDT, Height/Length Dosing, 76, kg, 07/11/23 14:01:00 EDT, Weight Dosing Start Date: 07/11/23 Status: Ordered Problems Active Problems Problem Classification Problem Date Documented Da te Episodic/Chronic Acute myocardial infarction (2 sources) Non-ST elevation (NSTEMI) myocardial infarction; Translations: [Non-ST elevation (NSTEMI) myocardial infarction] Onset: 09-30-2023 Chronic Allergic reactions (3 sources) Contact dermatitis due to plants 03-12-2020 Episodic Cardiac dysrhythmias (2 sources) Unspecified atrial fibrillation; Translations: [Unspecified atrial fibrillation] Onset: 09-30-2023 Chronic Coronary atherosclerosis and other heart disease (19 sources) Coronary arteriosclerosis; Translations: [History of myocardial infarction] Onset: 06-11-2022 03-12-2020 Chronic Deficiency and other anemia (3 sources) Anemia 03-12-2020 Episodic Deficiency and other anemia (2 sources) Iron deficiency anemia; Translations: [Iron deficiency anemia, unspecified] Onset: 04-11-2023 04-11-2023 Episodic Diabetes mellitus without complication (13 sources) Diabetes mellitus; Translations: [Type 2 diabetes mellitus without complications] Onset: 01-06-2022 03-12-2020 Chronic Disorders of lipid metabolism (6 sources) Hyperlipidemia; Translations: [Hyperlipidemia, unspecified] Onset: 06-19-2022 03-12-2020 Chronic Essential hypertension (5 sources) Essential hypertension; Translations: [Essential (primary) hypertension] Onset: 04-11-2023 04-11-2023 Chronic Genitourinary symptoms and ill-defined conditions (3 sources) Post-micturition incontinence 03-13-2020 Chronic Genitourinary symptoms and ill-defined conditions (13 sources) Incomplete emptying of bladder; Translations: [Nocturia] Onset: 01-05-2022 03-13-2020 Episodic Heart valve disorders (11 sources) Mitral valve regurgitation; Translations: [Nonrheumatic mitral (valve) insufficiency] Onset: 10-14-2021 03-12-2020 Chronic Hyperplasia of prostate (7 sources) Benign prostatic hypertrophy with outflow obstruction; Translations: [Benign prostatic hyperplasia with lower urinary tract symptoms] Onset: 06-18-2021 Chronic Malaise and fatigue (3 sources) Fatigue 03-12-2020 Episodic Miscellaneous mental health disorders (2 sources) Primary insomnia; Translations: [Primary insomnia] Onset: 09-30-2023 Chronic Mood disorders (3 sources) Depressive disorder 03-12-2020 Chronic Other aftercare (1 source) Long-term current use of drug therapy; Translations: [senior living (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 of antithrombotics/ant iplatelets] Onset: 06-18-2022 Episodic Other aftercare (3 sources) senior living (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 of insulin; Translations: [senior living (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 of insulin] Onset: 05-04-2023 Episodic Other and unspecified benign neoplasm (3 sources) Adenomatous polyp of colon 03-12-2020 Episodic Other connective tissue disease (3 sources) Bursitis of elbow 03-12-2020 Episodic Other diseases of kidney and ureters (2 sources) Urinary tract obstruction; Translations: [Other obstructive and reflux uropathy] Onset: 06-18-2021 Episodic Other gastrointestinal disorders (2 sources) Slow transit constipation; Translations: [Slow transit constipation] Onset: 09-30-2023 Episodic Other inflammatory condition of skin (3 sources) Granuloma annulare 03-12-2020 Episodic Other injuries and conditions due to external causes (3 sources) At low risk for fall 03-12-2020 Episodic Other lower respiratory disease (3 sources) Snoring 03-12-2020 Episodic Other lower respiratory disease (1 source) Other forms of dyspnea; Translations: [OTHER FORMS OF DYSPNEA] Onset: 06-19-2022 Episodic Other male genital disorders (7 sources) [...] index 25-29 - overweight 06-18-2021 Episodic Other skin disorders (3 sources) Night [...] Family history of prostate cancer 03-13-2020 Episodic Screening and history of mental health [...] CONDITION UNSPECIFIED] Onset: 06-19-2022 Unclassified (1 source) Acute cough; Translations: [Acute cough] Onset: 10-11-2023 Past or Other Problems Problem Classification Problem Date Documented Da te Episodic/Chronic Abdominal pain (1 source) Epigastric pain; Translations: [EPIGASTRIC PAIN] Onset: 01-09-2022 Episodic Deficiency and other anemia (6 sources) Iron deficiency anemia, unspecified; Translations: [IRON DEFICIENCY ANEMIA UNSPECIFIED] Onset: 06-11-2022 Episodic Other diseases of kidney and ureters (1 source) Other obstructive and reflux uropathy; Translations: [Other obstructive and reflux uropathy] Onset: 07-06-2023 Episodic Other gastrointestinal disorders (1 source) Diarrhea, unspecified; Translations: [DIARRHEA UNSPECIFIED] Onset: 01-09-2022 Episodic Other nutritional; endocrine; and metabolic disorders (1 source) Abnormal weight loss; Translations: [ABNORMAL WEIGHT LOSS] Onset: 01-09-2022 Episodic Other screening for suspected conditions (not mental disorders or infectious disease) (3 sources) Encounter for screening for malignant neoplasm of prostate; Translations: [Screening for malignant neoplasm done] Onset: 02-09-2023 Episodic Residual codes; unclassified (1 source) Family history of malignant neoplasm of prostate; Translations: [Family history of malignant neoplasm of prostate] Onset: 07-06-2023 Episodic Results Test Name Value Interpretation Reference Range Facility Office Visiton 10-13-2023 Follow-up visit [id number] Kimmy Mcarthur 1945 M Date Provider Department Center 10/13/2023 Kacie-NATASHA [facility]PO [facility] Family History Problem Relation Age of Onset Cancer Father Diabetes Father Family Status - Relation Status Age at Father Level of Service:76011 DE OFFICE/OUTPATIENT ESTABLISHED LOW MDM 20 MIN Normal [facility] XR CHEST 2 VWSon 10-11-2023 XR CHEST 2 VWS XR CHEST 2 VWS XR CHEST 2 VWS INDICATION: Acute cough COMPARISON: 05/13/2022 FINDINGS: Stable cardiomediastinal silhouette. Atherosclerotic aorta. Patchy interstitial opacities appear slightly increased in the right infrahilar region, left lung base. Trace effusions with hyperinflation. Degenerative changes of the spine and shoulders. IMPRESSION: Hyperinflation with coarsened interstitial markings which appear slightly increased from prior. Probable trace effusions. Correlate with any small airways disease/bronchitis. Difficult to exclude acute superimposed infectious/inflammator y pneumonitis; CT correlation may be prudent Finalized by Sabino Valentin MD on 10/11/2023 12:16 PM Normal [facility] 30on 10-07-2023 30 The patient is Moderately Stable - Low risk of patient condition declining or worsening The patient's goals for the shift include Comfort The clinical goals for the shift include VSS, safety Normal [facility] BASIC METABOLIC PANELon 09-25 Anion gap [Moles/Vol] 12 mmol/L Normal 7-20 [facility] Comment on above: Performed By: #### L [id number] #### [facility] ([facility]) [address] [place] [address] Calcium [Mass/Vol] 8.9 mg/dL Normal 8.6-10.3 [facility] Comment on above: Performed By: #### L [id number] #### [facility] ([facility]) [address] [place] [address] Chloride [Moles/Vol] 105 mmol/L Normal 98-107 [facility] Comment on above: Performed By: #### L [id number] #### [facility] ([facility]) [address] [place] [address] CO2 [Moles/Vol] 27 mmol/L Normal 21-[address] [facility] Comment on above: Performed By: #### L [id number] #### [facility] ([facility]) [address] [place] [address] Creatinine [Mass/Vol] 0.92 mg/dL Normal 0.70-1.30 [facility] Comment on above: Performed By: #### L [id number] #### [facility] ([facility]) [address] [place] [address] GLOMERULAR FILTRATION RATE ML/MIN/1.73 SQ M.PREDICTED 85.7 mL/min/1.73m*2 Normal >60.0 [facility] Comment on above: Result Comment: [facility]???s estimated glomerular filtration rate (eGFR) will no longer include consideration of race in its calculation. The National Kidney Foundation???s eGFR Task Force developed new recommendations for the estimation of the glomerular filtration rate in the [place] They recommend immediate implementation of the new equation refit without the race variable in all laboratories because the calculation does not include race. In addition to not including race in the calculation and reporting, it included diversity in its development, and has acceptable performance characteristics and potential consequences that do not disproportionately affect any one group of individuals. Performed By: #### L [id number] #### [facility] ([facility]) [address] [place] [address] Glucose [Mass/Vol] 108 mg/dL High 70-100 [facility] Comment on above: Performed By: #### L [id number] #### [facility] ([facility]) [address] [place] [address] Potassium [Moles/Vol] 4.0 mmol/L Normal 3.5-5.1 [facility] Comment on above: Performed By: #### L [id number] #### [facility] ([facility]) [address] [facility] [place] [address] Sodium [Moles/Vol] 140 mmol/L Normal 136-145 [facility] Comment on above: Performed By: #### L [id number] #### [facility] ([facility]) [address] [place] [address] Urea nitrogen [Mass/Vol] 18 mg/dL Normal 7-25 [facility] Comment on above: Performed By: #### L [id number] #### [facility] ([facility]) [address] [place] [address] UREA NITROGEN/CREATININE (MASS RATIO) IN SER/PLAS 19.6 Normal [facility] Comment on above: Performed By: #### L [id number] #### [facility] [address] [place] [address] CBC WITH AUTO DIFFERENTIALon 10-07-2023 Basophils (Bld) [#/Vol] 0.04 10*3/uL Normal 0.00-0.20 [facility] Comment on above: Performed By: #### L [id number] #### [facility] ([facility]) [address] [place] [address] Basophils/100 WBC (Bld) 0.6 % Normal 0.0-1.0 [facility] Comment on above: Performed By: #### L [id number] #### [facility] ([facility]) [address] [place] [address] Eosinophils (Bld) [#/Vol] 0.21 10*3/uL Normal 0.00-0.50 [facility] Comment on above: Performed By: #### L [id number] #### [facility] ([facility]) [address] [place] [address] Eosinophils/100 WBC (Bld) 3.2 % Normal 0.0-6.0 [facility] Comment on above: Performed By: #### L [id number] #### [facility] ([facility]) [address] [place] [address] Erythrocyte distribution width (RBC) [Ratio] 13.4 % Normal 11.5-15.0 [facility] Comment on above: Performed By: #### L [id number] #### [facility] [address] [place] [address] ERYTHROCYTE MEAN CORPUSCULAR HEMOGLOBIN CONCENTRATION (G/DL) BY AUTOMATED 33.6 g/dL Normal 32.0-35.0 [facility] Comment on above: Performed By: #### L [id number] #### [facility] [address] [place] [address] Hematocrit (Bld) [Volume fraction] 34.8 % Low 39.0-55.0 [facility] Comment on above: Performed By: #### L [id number] #### [facility] [address] [place] [address] Hemoglobin (Bld) [Mass/Vol] 11.7 g/dL Low 13.0-17.0 [facility] Comment on above: Performed By: #### L [id number] #### [facility] ([facility]) [address] [place] [address] Immature granulocytes (Bld) [#/Vol] 0.03 10*3/uL Normal 0.00-0.20 [facility] Comment on above: Performed By: #### L [id number] #### [facility] ([facility]) [address] [place] [address] Immature granulocytes/100 WBC (Bld) 0.5 % Normal 0.0-1.0 [facility] Comment on above: Performed By: #### L [id number] #### [facility] ([facility]) [address] [place] [address] Lymphocytes (Bld) [#/Vol] 1.28 10*3/uL Normal 1.20-4.00 [facility] Comment on above: Performed By: #### L [id number] #### [facility] ([facility]) [address] [place] [address] Lymphocytes/100 WBC (Bld) 19.8 % Low 20.0-45.0 [facility] Comment on above: Performed By: #### L [id number] #### [facility] ([facility]) [address] [place] [address] MCH (RBC) [Entitic mass] 30.1 pg Normal 27.0-33.0 [facility] Comment on above: Performed By: #### L [id number] #### [facility] [address] [place] [address] MCV (RBC) [Entitic vol] 89.5 fL Normal 82.0-98.0 [facility] Comment on above: Performed By: #### L [id number] #### [facility] ([facility]) [address] [place] [address] Monocytes (Bld) [#/Vol] 0.61 10*3/uL Normal 0.10-1.00 [facility] Comment on above: Performed By: #### L [id number] #### [facility] [address] [place] [address] Monocytes/100 WBC (Bld) 9.4 % Normal 5.0-12.0 [facility] Comment on above: Performed By: #### L [id number] #### [facility] ([facility]) [address] [place] [address] Neutrophils (Bld) [#/Vol] 4.30 10*3/uL Normal 1.60-7.60 [facility] Comment on above: Performed By: #### L [id number] #### [facility] ([facility]) [address] [place] [address] Neutrophils/100 WBC (Bld) 66.5 % Normal 40.0-72.0 [facility] Comment on above: Performed By: #### L [id number] #### [facility] ([facility]) [address] [place] [address] NRBC (PER 100 WBCS) BY AUTOMATED COUNT 0.0 % Normal 0 [facility] Comment on above: Performed By: #### L [id number] #### [facility] ([facility]) [address] [place] [address] PLATELETS (10*3/UL) IN BLOOD AUTOMATED COUNT 137 10*3/uL Low 150-400 [facility] Comment on above: Performed By: #### L [id number] #### [facility] [address] [place] [address] RBC (Bld) [#/Vol] 3.89 10*6/uL Low 4.20-5.[address] [facility] Comment on above: Performed By: #### L [id number] #### [facility] ([facility]) [address] [place] [address] WBC (Bld) [#/Vol] 6.47 10*3/uL Normal 4.00-10.[address] [facility] Comment on above: Performed By: #### L [id number] #### [facility] ([facility]) [address] [place] [address] POCT GLUCOSE METER UNSOLICIT ED RESULTSon 10-07-2023 Glucose [Mass/Vol] 242 mg/dL High 70-105 [facility] Comment on above: Order Comment: Waive d Testing in the ED is performed under the ED CLIA certificate #[id number]. Result Comment: [email or web address] Performed By: #### L [id number] ####[facility] ([facility])[address] [place] [address] Glucose [Mass/Vol] 119 mg/dL High 70-105 [facility] Comment on above: Order Comment: Waive d Testing in the ED is performed under the ED CLIA certificate #[id number]. Result Comment: [email or web address] Performed By: #### L [id number] ####[facility] ([facility])[address] [place] [address] 30on 10-06-2023 30 The patient is Moderately Stable - Low risk of patient condition declining or worsening The patient's goals for the shift include good nights sleep The clinical goals for the shift include stable vitals Over the shift, the patient did make progress toward the following goals. Barriers to progression include monitor alarms and hospital routine. Recommendations to address these barriers include maintain low alarm level in room for pt and promote environment Problem: Pain - Adult Goal: Verbalizes/displays adequate comfort level or baseline comfort level Outcome: Progressing for sleep. Normal [facility] 30 Daily Case Managemen t Update Multidisciplinary rounds have been completed. Barriers to Discharge et per Progress Note/s: Hep gtt remains @ 19. MRI completed. CABG tentatively planned for 10/07/2023 vs. 10/10/2023. DC plan TBD post-op. Diet: Dietary Orders (From admission, onward) Start Ordered 10/04/23 0740 Regular Diet Diabetic Male (carb 60g/meal) Diet effective now Question Answer Comment Room Service? Yes Carbohydrate restriction: Diabetic Male (carb 60g/meal) 10/04/23 0739 Physician Expected Discharge Date: Discharge Delays: Waiting on imaging result [104] PT Six Click Score: 23 OT Six Click Score: PT Recommendations: OT Recommendations: New Consults: Normal [facility] 30 The patient is Moderately Stable - Low risk of patient condition declining or worsening The patient's goals for the shift include comfort and rest The clinical goals for the shift include stable vitals Over the shift, the patient did make progress toward the following goals. Barriers to progression include monitor alarms and hospital routine. Recommendations to address these barriers include coordinate with pt and promote environment for sleep Problem: Pain - Adult Goal: Verbalizes/displays adequate comfort level or baseline comfort level Outcome: Progressing Flowsheets (Taken 10/05/20232029) Verbalizes/displays adequate comfort level or baseline comfort level: Encourage patient to monitor pain and request assistance Assess pain using appropriate pain scale Administer analgesics based on type and severity of pain and evaluate response Implement non-pharmacological measures as appropriate and evaluate response Consider cultural and social influences on pain and pain management Notify Licensed Independent Practitioner if interventions unsuccessful or patient reports new pain . Normal [facility] ANTI-XA (HEPARIN LEVEL)on HEPARIN UNFRACTIONATED (U/ML) IN PPP BY CHROMOGENIC METHOD 0.55 IU/mL Normal 0.3-0.7 [facility] Comment on above: Result Comment: [place] roxaban and Apixaban will interfere with the anti Xa assay used to monitor UFH and LMWH. Performed By: #### L [id number] ####[facility] (BEAKER)[address] [place] [address] BASIC METABOLIC PANELon 07- Anion gap [Moles/Vol] 11 mmol/L Normal 7-20 [facility] Comment on above: Performed By: #### L [id number] ####[facility] (BEAKER)[address] [place] [address] Calcium [Mass/Vol] 8.9 mg/dL Normal 8.6-10.3 [facility] Comment on above: Performed By: #### L [id number] ####[facility] (BEAKER)[address] [place] [address] Chloride [Moles/Vol] 104 mmol/L Normal 98-107 [facility] Comment on above: Performed By: #### L [id number] ####[facility] [place] [address] CO2 [Moles/Vol] 26 mmol/L Normal 21-[address] [facility] Comment on above: Performed By: #### L [id number] ####[facility] ([facility] [place] [address] Creatinine [Mass/Vol] 0.91 mg/dL Normal 0.70-1.30 [facility] Comment on above: Performed By: #### L [id number] ####[facility] ([facility])[address] [place] [address] GLOMERULAR FILTRATION RATE ML/MIN/1.73 SQ M.PREDICTED 86.8 mL/min/1.73m*2 Normal >60.0 [facility] Comment on above: Result Comment: [facility]???s estimated glomerular filtration rate (eGFR) will no longer include consideration of race in its calculation. The National Kidney Foundation???s eGFR Task Force developed new recommendations for the estimation of the glomerular filtration rate in the [place] They recommend immediate implementation of the new equation refit without the race variable in all laboratories because the calculation does not include race. In addition to not including race in the calculation and reporting, it included diversity in its development, and has acceptable performance characteristics and potential consequences that do not disproportionately affect any one group of individuals. Performed By: #### L [id number] ####[facility] ([facility] [place] [address] Glucose [Mass/Vol] 229 mg/dL High 70-100 [facility] Comment on above: Performed By: #### L [id number] ####[facility] ([facility] [place] [address] Potassium [Moles/Vol] 4.4 mmol/L Normal 3.5-5.1 [facility] Comment on above: Performed By: #### L [id number] ####[facility] (BEAKER)[address] [place] [address] Sodium [Moles/Vol] 137 mmol/L Normal 136-145 [facility] Comment on above: Performed By: #### L [id number] ####[facility] [place] [address] Urea nitrogen [Mass/Vol] 20 mg/dL Normal 7-25 [facility] Comment on above: Performed By: #### L [id number] ####[facility] [place] [address] UREA NITROGEN/CREATININE (MASS RATIO) IN SER/PLAS 22.0 Normal [facility] Comment on above: Performed By: #### L [id number] ####[facility] ([facility])[address] [place] [address] CBC WITH AUTO DIFFERENTIALon 10-06-2023 Basophils (Bld) [#/Vol] 0.04 10*3/uL Normal 0.00-0.20 [facility] Comment on above: Performed By: #### L [id number] ####[facility] [place] [address] Basophils/100 WBC (Bld) 0.8 % Normal 0.0-1.0 [facility] Comment on above: Performed By: #### L [id number] ####[facility] [place] [address] Eosinophils (Bld) [#/Vol] 0.26 10*3/uL Normal 0.00-0.50 [facility] Comment on above: Performed By: #### L [id number] ####[facility] [place] [address] Eosinophils/100 WBC (Bld) 5.0 % Normal 0.0-6.0 [facility] Comment on above: Performed By: #### L [id number] ####[facility] (BEAKER)[address] [place] [address] Erythrocyte distribution width (RBC) [Ratio] 13.3 % Normal 11.5-15.0 [facility] Comment on above: Performed By: #### L [id number] ####[facility] (BEAKER)[address] [place] [address] ERYTHROCYTE MEAN CORPUSCULAR HEMOGLOBIN CONCENTRATION (G/DL) BY AUTOMATED 33.0 g/dL Normal 32.0-35.0 [facility] Comment on above: Performed By: #### L [id number] ####[facility] [place] [address] Hematocrit (Bld) [Volume fraction] 34.9 % Low 39.0-55.0 [facility] Comment on above: Performed By: #### L [id number] ####[facility] (BEAKER)[address] [place] [address] Hemoglobin (Bld) [Mass/Vol] 11.5 g/dL Low 13.0-17.0 [facility] Comment on above: Performed By: #### L [id number] ####[facility] (BEAKER)[address] [place] [address] Immature granulocytes (Bld) [#/Vol] 0.03 10*3/uL Normal 0.00-0.20 [facility] Comment on above: Performed By: #### L [id number] ####[facility] (BEAKER)[address] [place] [address] Immature granulocytes/100 WBC (Bld) 0.6 % Normal 0.0-1.0 [facility] Comment on above: Performed By: #### L [id number] ####[facility] (BEAKER)[address] [place] [address] Lymphocytes (Bld) [#/Vol] 1.38 10*3/uL Normal 1.20-4.00 [facility] Comment on above: Performed By: #### L [id number] ####[facility] (BEAKER)[address] [place] [address] Lymphocytes/100 WBC (Bld) 26.6 % Normal 20.0-45.0 [facility] Comment on above: Performed By: #### L [id number] ####[facility] [place] [address] MCH (RBC) [Entitic mass] 29.6 pg Normal 27.0-33.0 [facility] Comment on above: Performed By: #### L [id number] ####[facility] [place] [address] MCV (RBC) [Entitic vol] 89.9 fL Normal 82.0-98.0 [facility] Comment on above: Performed By: #### L [id number] ####[facility] [place] [address] Monocytes (Bld) [#/Vol] 0.45 10*3/uL Normal 0.10-1.00 [facility] Comment on above: Performed By: #### L [id number] ####[facility] (BEAKER)[address] [place] [address] Monocytes/100 WBC (Bld) 8.7 % Normal 5.0-12.0 [facility] Comment on above: Performed By: #### L [id number] ####[facility] (BEAKER)[address] [place] [address] Neutrophils (Bld) [#/Vol] 3.02 10*3/uL Normal 1.60-7.60 [facility] Comment on above: Performed By: #### L [id number] ####[facility] (BEAKER)[address] [place] [address] Neutrophils/100 WBC (Bld) 58.3 % Normal 40.0-72.0 [facility] Comment on above: Performed By: #### L [id number] ####[facility] (BEAKER)[address] [place] [address] NRBC (PER 100 WBCS) BY AUTOMATED COUNT 0.0 % Normal 0 [facility] Comment on above: Performed By: #### L [id number] ####[facility] ([facility])[address] [place] [address] PLATELETS (10*3/UL) IN BLOOD AUTOMATED COUNT 128 10*3/uL Low 150-400 [facility] Comment on above: Performed By: #### L [id number] ####[facility] ([facility])[address] [place] [address] RBC (Bld) [#/Vol] 3.88 10*6/uL Low 4.20-5.[address] [facility] Comment on above: Performed By: #### L [id number] ####[facility] ([facility])[address] [place] [address] WBC (Bld) [#/Vol] 5.18 10*3/uL Normal 4.00-10.[address] [facility] Comment on above: Performed By: #### L [id number] ####[facility] ([facility])[address] [place] [address] MAGNESIUMon 10-06-2023 Magnesium [Mass/Vol] 1.7 mg/dL Low 1.9-2.7 [facility] Comment on above: Performed By: #### L [id number] #### [facility] ([facility]) [address] [place] [address] POCT GLUCOSE METER UNSOLICIT ED RESULTSon 10-06-2023 Glucose [Mass/Vol] 149 mg/dL High 70-105 [facility] Comment on above: Order Comment: Waive d Testing in the ED is performed under the ED CLIA certificate #[id number]. Result Comment: [email or web address] Performed By: #### L [id number] ####[facility] ([facility])[address] [place] [address] Glucose [Mass/Vol] 124 mg/dL High 70-105 [facility] Comment on above: Order Comment: Waive d Testing in the ED is performed under the ED CLIA certificate #[id number]. Result Comment: [email or web address] Performed By: #### L [id number] #### [facility] (BEAKER) [address] [place] [address] Glucose [Mass/Vol] 216 mg/dL High 70-105 [facility] Comment on above: Order Comment: Waive d Testing in the ED is performed under the ED CLIA certificate #[id number]. Result Comment: [email or web address] Performed By: #### L [id number] ####[facility] [place] [address] Glucose [Mass/Vol] 196 mg/dL High 70-105 [facility] Comment on above: Order Comment: Waive d Testing in the ED is performed under the ED CLIA certificate #[id number]. Result Comment: [email or web address] Performed By: #### L [id number] ####[facility] ([facility])[address] [place] [address] 30on 10-05-2023 30 The patient is Moderately Unstable - Medium risk of patient condition declining or worsening The patient's goals for the shift include comfort The clinical goals for the shift include vss Over the shift, the patient did make progress toward the following goals. Problem: Pain - Adult Goal: Verbalizes/displays adequate comfort level or baseline comfort level Outcome: Progressing Problem: Safety - Adult Goal: Free from fall injury Outcome: Progressing Problem: Discharge Planning Goal: Discharge to home or other facility with appropriate resources Outcome: Progressing Normal [facility] 30 Daily Case Managemen t Update Multidisciplinary rounds have been completed. Barriers to Discharge: Pending clinical course and improvement in clinical condition. 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 CABG tentatively planned for 10/07/2023 vs. 10/10/2023. Discharge plan is pending clinical course after surgical intervention. Diet: Dietary Orders (From admission, onward) Start Ordered 10/04/23 0740 Regular Diet Diabetic Male (carb 60g/meal) Diet effective now Question Answer Comment Room Service? Yes Carbohydrate restriction: Diabetic Male (carb 60g/meal) 10/04/23 0739 Physician Expected Discharge Date: Discharge Delays: Waiting on imaging result [104] PT Six Click Score: 23 OT Six Click Score: PT Recommendations: OT Recommendations: New Consults: Normal [facility] ANTI-XA (HEPARIN LEVEL)on HEPARIN UNFRACTIONATED (U/ML) IN PPP BY CHROMOGENIC METHOD 0.42 IU/mL Normal 0.3-0.7 [facility] Comment on above: Result Comment: [place] roxaban and Apixaban will interfere with the anti Xa assay used to monitor UFH and LMWH. Performed By: #### L [id number] #### [facility] [address] [place] [address] BASIC METABOLIC PANELon 09-25 Anion gap [Moles/Vol] 10 mmol/L Normal 7-20 [facility] Comment on above: Performed By: #### L [id number] ####[facility] [place] [address] Calcium [Mass/Vol] 8.5 mg/dL Low 8.6-10.3 [facility] Comment on above: Performed By: #### L [id number] ####[facility] [place] [address] Chloride [Moles/Vol] 104 mmol/L Normal 98-107 [facility] Comment on above: Performed By: #### L [id number] ####[facility] (BEAKER)[address] [place] [address] CO2 [Moles/Vol] 27 mmol/L Normal 21-[address] [facility] Comment on above: Performed By: #### L [id number] ####[facility] [place] [address] Creatinine [Mass/Vol] 0.92 mg/dL Normal 0.70-1.30 [facility] Comment on above: Performed By: #### L [id number] ####[facility] [place] [address] GLOMERULAR FILTRATION RATE ML/MIN/1.73 SQ M.PREDICTED 85.7 mL/min/1.73m*2 Normal >60.0 [facility] Comment on above: Result Comment: [facility]???s estimated glomerular filtration rate (eGFR) will no longer include consideration of race in its calculation. The National Kidney Foundation???s eGFR Task Force developed new recommendations for the estimation of the glomerular filtration rate in the [place] They recommend immediate implementation of the new equation refit without the race variable in all laboratories because the calculation does not include race. In addition to not including race in the calculation and reporting, it included diversity in its development, and has acceptable performance characteristics and potential consequences that do not disproportionately affect any one group of individuals. Performed By: #### L [id number] ####[facility] ([facility])[address] [place] [address] Glucose [Mass/Vol] 197 mg/dL High 70-100 [facility] Comment on above: Performed By: #### L [id number] ####[facility] ([facility])[address] [place] [address] Potassium [Moles/Vol] 4.1 mmol/L Normal 3.5-5.1 [facility] Comment on above: Performed By: #### L [id number] ####[facility] [place] [address] Sodium [Moles/Vol] 137 mmol/L Normal 136-145 [facility] Comment on above: Performed By: #### L [id number] ####[facility] (BEAKER)[address] [place] [address] Urea nitrogen [Mass/Vol] 17 mg/dL Normal 7-25 [facility] Comment on above: Performed By: #### L [id number] ####[facility] (BEAKER)[address] [place] [address] UREA NITROGEN/CREATININE (MASS RATIO) IN SER/PLAS 18.5 Normal [facility] Comment on above: Performed By: #### L [id number] ####[facility] (BEAKER)[address] [place] [address] CBC WITH AUTO DIFFERENTIALon 10-05-2023 Basophils (Bld) [#/Vol] 0.03 10*3/uL Normal 0.00-0.20 [facility] Comment on above: Performed By: #### L [id number] ####[facility] (BEAKER)[address] [place] [address] Basophils/100 WBC (Bld) 0.6 % Normal 0.0-1.0 [facility] Comment on above: Performed By: #### L [id number] ####[facility] (BEAKER)[address] [place] [address] Eosinophils (Bld) [#/Vol] 0.27 10*3/uL Normal 0.00-0.50 [facility] Comment on above: Performed By: #### L [id number] ####[facility] (BEAKER)[address] [place] [address] Eosinophils/100 WBC (Bld) 5.7 % Normal 0.0-6.0 [facility] Comment on above: Performed By: #### L [id number] ####[facility] (BEAKER)[address] [place] [address] Erythrocyte distribution width (RBC) [Ratio] 13.4 % Normal 11.5-15.0 [facility] Comment on above: Performed By: #### L [id number] ####[facility] (BEAKER)[address] [place] [address] ERYTHROCYTE MEAN CORPUSCULAR HEMOGLOBIN CONCENTRATION (G/DL) BY AUTOMATED 32.9 g/dL Normal 32.0-35.0 [facility] Comment on above: Performed By: #### L [id number] ####[facility] (BEAKER)[address] [place] [address] Hematocrit (Bld) [Volume fraction] 35.3 % Low 39.0-55.0 [facility] Comment on above: Performed By: #### L [id number] ####[facility] (BEAKER)[address] [place] [address] Hemoglobin (Bld) [Mass/Vol] 11.6 g/dL Low 13.0-17.0 [facility] Comment on above: Performed By: #### L [id number] ####[facility] (BEAKER)[address] [place] [address] Immature granulocytes (Bld) [#/Vol] 0.03 10*3/uL Normal 0.00-0.20 [facility] Comment on above: Performed By: #### L [id number] ####[facility] ([facility])[address] [place] [address] Immature granulocytes/100 WBC (Bld) 0.6 % Normal 0.0-1.0 [facility] Comment on above: Performed By: #### L [id number] ####[facility] ([facility])[address] [place] [address] Lymphocytes (Bld) [#/Vol] 1.30 10*3/uL Normal 1.20-4.00 [facility] Comment on above: Performed By: #### L [id number] ####[facility] ([facility])[address] [place] [address] Lymphocytes/100 WBC (Bld) 27.4 % Normal 20.0-45.0 [facility] Comment on above: Performed By: #### L [id number] ####[facility] ([facility])[address] [place] [address] MCH (RBC) [Entitic mass] 29.9 pg Normal 27.0-33.0 [facility] Comment on above: Performed By: #### L [id number] ####[facility] [place] [address] MCV (RBC) [Entitic vol] 91.0 fL Normal 82.0-98.0 [facility] Comment on above: Performed By: #### L [id number] ####[facility] (BEAKER)[address] [place] [address] Monocytes (Bld) [#/Vol] 0.41 10*3/uL Normal 0.10-1.00 [facility] Comment on above: Performed By: #### L [id number] ####[facility] (BEAKER)[address] [place] [address] Monocytes/100 WBC (Bld) 8.6 % Normal 5.0-12.0 [facility] Comment on above: Performed By: #### L [id number] ####[facility] (BEAKER)[address] [place] [address] Neutrophils (Bld) [#/Vol] 2.71 10*3/uL Normal 1.60-7.60 [facility] Comment on above: Performed By: #### L [id number] ####[facility] (BEAKER)[address] [place] [address] Neutrophils/100 WBC (Bld) 57.1 % Normal 40.0-72.0 [facility] Comment on above: Performed By: #### L [id number] ####[facility] [place] [address] NRBC (PER 100 WBCS) BY AUTOMATED COUNT 0.0 % Normal 0 [facility] Comment on above: Performed By: #### L [id number] ####[facility] (BEAKER)[address] [place] [address] PLATELETS (10*3/UL) IN BLOOD AUTOMATED COUNT 132 10*3/uL Low 150-400 [facility] Comment on above: Performed By: #### L [id number] ####[facility] (BEAKER)[address] [place] [address] RBC (Bld) [#/Vol] 3.88 10*6/uL Low 4.20-5.[address] [facility] Comment on above: Performed By: #### L [id number] ####[facility] (BEAKER)[address] [place] [address] WBC (Bld) [#/Vol] 4.75 10*3/uL Normal 4.00-10.[address] [facility] Comment on above: Performed By: #### L [id number] ####[facility] (BEAKER)[address] [place] [address] POCT GLUCOSE METER UNSOLICIT ED RESULTSon 10-05-2023 Glucose [Mass/Vol] 126 mg/dL High 70-105 [facility] Comment on above: Order Comment: Waive d Testing in the ED is performed under the ED CLIA certificate #[id number]. Result Comment: [email or web address] Performed By: #### L [id number] #### [facility] ([facility]) [address] [place] [address] Glucose [Mass/Vol] 204 mg/dL High 70-105 [facility] Comment on above: Order Comment: Waive d Testing in the ED is performed under the ED CLIA certificate #[id number]. Result Comment: [email or web address] Performed By: #### L [id number] ####[facility] ([employer])[address] [place] [address] Glucose [Mass/Vol] 277 mg/dL High 70-105 [facility] Comment on above: Order Comment: Waive d Testing in the ED is performed under the ED CLIA certificate #[id number]. Result Comment: [email or web address] Performed By: #### L [id number] #### [facility] ([facility]) [address] [place] [address] Glucose [Mass/Vol] 205 mg/dL High 70-105 [facility] Comment on above: Order Comment: Waive d Testing in the ED is performed under the ED CLIA certificate #[id number]. Result Comment: [email or web address] Performed By: #### L [id number] #### [facility] ([facility]) [address] [place] [address] 30on 10-04-2023 30 The patient is Moderately Stable - Low risk of patient condition declining or worsening The patient's goals for the shift include comfort The clinical goals for the shift include VSS Problem: Pain - Adult Goal: Verbalizes/displays adequate comfort level or baseline comfort level Outcome: Progressing Flowsheets (Taken 10/03/2023 055) Verbalizes/displays adequate comfort level or baseline comfort level: Encourage patient to monitor pain and request assistance Administer analgesics based on type and severity of pain and evaluate response Consider cultural and social influences on pain and pain management Assess pain using appropriate pain scale Implement non-pharmacological measures as appropriate and evaluate response Notify Licensed Independent Practitioner if interventions unsuccessful or patient reports new pain Problem: Safety - Adult Goal: Free from fall injury Outcome: Progressing Flowsheets (Taken 10/03/2023 0051) Free from fall injury: [place] fall precautions as indicated by assessment Assess patient frequently for physical needs Instruct patient to call for assistance with activity based on assessment Consider OT/PT consult to assist with strengthening/mobility Identify cognitive and physical deficits and behaviors that affect risk of falls Educate patient/family on patient safety, including physical limitations Modify environment to reduce risk of injury Problem: Discharge Planning Goal: Discharge to home or other facility with appropriate resources Outcome: Progressing Flowsheets (Taken 10/03/2023 0730 by Elma Paez, RN) Discharge to home or other facility with appropriate resources: Identify barriers to discharge with patient and caregiver Arrange for needed discharge resources and transportation as appropriate Problem: Chronic Conditions and Co-morbidities Goal: Patient's chronic conditions and co-morbidity symptoms are monitored and maintained or improved Outcome: Progressing Flowsheets (Taken 10/03/202330 by Elma Paez RN) Care Plan - Patient's Chronic Conditions and Co-Morbidity Symptoms are Monitored and Maintained or Improved: Monitor and assess patient's chronic conditions and comorbid symptoms for stability, deterioration, or improvement Collaborate with multidisciplinary team to address chronic and comorbid conditions and prevent exacerbation or deterioration Normal [facility] 30 Daily Case Managemen t Update Multidisciplinary rounds have been completed. Barriers to Discharge: Pending clinical course and improvement in clinical condition. Per Cardiothoracic Surgery patient will need coronary artery revascularization, PVI, MARY GRACE exclusion and possible MVR. Pending workup. Discharge plan is pending clinical course. Diet: Dietary Orders (From admission, onward) Start Ordered 10/04/23 0740 Regular Diet Diabetic Male (carb 60g/meal) Diet effective now Question Answer Comment Room Service? Yes Carbohydrate restriction: Diabetic Male (carb 60g/meal) 10/04/23 0739 Physician Expected Discharge Date: Discharge Delays: PT Six Click Score: 23 OT Six Click Score: PT Recommendations: OT Recommendations: New Consults: Ancillary Consults (From admission, onward) Start Ordered 10/01/23 1037 Inpatient consult to Social Work Once Provider: (Not yet assigned) Question Answer Comment Select all services needed for the patient Other Other: discharge planning 10/01/23 1036 Normal [facility] 30 The patient is Moderately Stable - Low risk of patient condition declining or worsening The patient's goals for the shift include comfort The clinical goals for the shift include vss Over the shift, the patient did make progress toward the following goals. Problem: Pain - Adult Goal: Verbalizes/displays adequate comfort level or baseline comfort level Outcome: Progressing Problem: Safety - Adult Goal: Free from fall injury Outcome: Progressing Problem: Discharge Planning Goal: Discharge to home or other facility with appropriate resources Outcome: Progressing Problem: Chronic Conditions and Co-morbidities Goal: Patient's chronic conditions and co-morbidity symptoms are monitored and maintained or improved Outcome: Progressing Problem: Pain Goal: LTG-Verbalize decrease in pain Outcome: Progressing Goal: LTG-Demostrate that the pain does not impair ADLs Outcome: Progressing Goal: STG-Pt will verbalize decreased discomfort Outcome: Progressing Normal [facility] ANTI-XA (HEPARIN LEVEL)on HEPARIN UNFRACTIONATED (U/ML) IN PPP BY CHROMOGENIC METHOD 0.41 IU/mL Normal 0.3-0.7 [facility] Comment on above: Result Comment: [place] roxaban and Apixaban will interfere with the anti Xa assay used to monitor UFH and LMWH. Performed By: #### L [id number] ####[facility] (AKER)[address] [place] [address] HEPARIN UNFRACTIONATED (U/ML) IN PPP BY CHROMOGENIC METHOD 0.24 IU/mL Low 0.3-0.7 [facility] Comment on above: Result Comment: [place] roxaban and Apixaban will interfere with the anti Xa assay used to monitor UFH and LMWH. Performed By: #### L [id number] ####[facility] (BEAKER)[address] [place] [address] HEPARIN UNFRACTIONATED (U/ML) IN PPP BY CHROMOGENIC METHOD 0.17 IU/mL Low 0.3-0.7 [facility] Comment on above: Result Comment: [place] roxaban and Apixaban will interfere with the anti Xa assay used to monitor UFH and LMWH. Performed By: #### L [id number] #### [facility] ([facility]) [address] [place] [address] BASIC METABOLIC PANELon 07-0 Anion gap [Moles/Vol] 9 mmol/L Normal 7-20 [facility] Comment on above: Performed By: #### L [id number] #### [facility] ([facility]) [address] [place] [address] Calcium [Mass/Vol] 8.7 mg/dL Normal 8.6-10.3 [facility] Comment on above: Performed By: #### L [id number] #### [facility] ([facility]) [address] [place] [address] Chloride [Moles/Vol] 104 mmol/L Normal 98-107 [facility] Comment on above: Performed By: #### L [id number] #### [facility] ([facility]) [address] [place] [address] CO2 [Moles/Vol] 27 mmol/L Normal 21-[address] [facility] Comment on above: Performed By: #### L [id number] #### [facility] ([facility]) [address] [place] [address] Creatinine [Mass/Vol] 0.88 mg/dL Normal 0.70-1.30 [facility] Comment on above: Performed By: #### L [id number] #### [facility] ([facility]) [address] [place] [address] GLOMERULAR FILTRATION RATE ML/MIN/1.73 SQ M.PREDICTED 88.6 mL/min/1.73m*2 Normal >60.0 [facility] Comment on above: Result Comment: [facility]???s estimated glomerular filtration rate (eGFR) will no longer include consideration of race in its calculation. The National Kid[employer] Foundation???s eGFR Task Force developed new recommendations for the estimation of the glomerular filtration rate in the [place] They recommend immediate implementation of the new equation refit without the race variable in all laboratories because the calculation does not include race. In addition to not including race in the calculation and reporting, it included diversity in its development, and has acceptable performance characteristics and potential consequences that do not disproportionately affect any one group of individuals. Performed By: #### L [id number] #### [facility] ([facility]) [address] [place] [address] Glucose [Mass/Vol] 207 mg/dL High 70-100 [facility] Comment on above: Performed By: #### L [id number] #### [facility] ([facility]) [address] [place] [address] Potassium [Moles/Vol] 4.2 mmol/L Normal 3.5-5.1 [facility] Comment on above: Performed By: #### L [id number] #### [facility] ([facility]) [address] [place] [address] Sodium [Moles/Vol] 136 mmol/L Normal 136-145 [facility] Comment on above: Performed By: #### L [id number] #### [facility] ([facility]) [address] [place] [address] Urea nitrogen [Mass/Vol] 15 mg/dL Normal 7-25 [facility] Comment on above: Performed By: #### L [id number] #### [facility] ([facility]) [address] [place] [address] UREA NITROGEN/CREATININE (MASS RATIO) IN SER/PLAS 17.0 Normal [facility] Comment on above: Performed By: #### L [id number] #### [facility] ([facility]) [address] [place] [address] CBC WITH AUTO DIFFERENTIALon 10-04-2023 Basophils (Bld) [#/Vol] 0.04 10*3/uL Normal 0.00-0.20 [facility] Comment on above: Performed By: #### L [id number] #### [facility] ([facility]) [address] [place] [address] Basophils/100 WBC (Bld) 0.8 % Normal 0.0-1.0 [facility] Comment on above: Performed By: #### L [id number] #### [facility] [address] [place] [address] Eosinophils (Bld) [#/Vol] 0.24 10*3/uL Normal 0.00-0.50 [facility] Comment on above: Performed By: #### L [id number] #### [facility] ([facility]) [address] [place] [address] Eosinophils/100 WBC (Bld) 4.9 % Normal 0.0-6.0 [facility] Comment on above: Performed By: #### L [id number] #### [facility] ([facility]) [address] [place] [address] Erythrocyte distribution width (RBC) [Ratio] 13.2 % Normal 11.5-15.0 [facility] Comment on above: Performed By: #### L [id number] #### [facility] ([facility]) [address] [place] [address] ERYTHROCYTE MEAN CORPUSCULAR HEMOGLOBIN CONCENTRATION (G/DL) BY AUTOMATED 33.3 g/dL Normal 32.0-35.0 [facility] Comment on above: Performed By: #### L [id number] #### [facility] ([facility]) [address] [place] [address] Hematocrit (Bld) [Volume fraction] 36.9 % Low 39.0-55.0 [facility] Comment on above: Performed By: #### L [id number] #### [facility] ([facility]) [address] [place] [address] Hemoglobin (Bld) [Mass/Vol] 12.3 g/dL Low 13.0-17.0 [facility] Comment on above: Performed By: #### L [id number] #### [facility] [address] [place] [address] Immature granulocytes (Bld) [#/Vol] 0.04 10*3/uL Normal 0.00-0.20 [facility] Comment on above: Performed By: #### L [id number] #### [facility] ([facility]) [address] [place] [address] Immature granulocytes/100 WBC (Bld) 0.8 % Normal 0.0-1.0 [facility] Comment on above: Performed By: #### L [id number] #### [facility] ([facility]) [address] [place] [address] Lymphocytes (Bld) [#/Vol] 1.22 10*3/uL Normal 1.20-4.00 [facility] Comment on above: Performed By: #### L [id number] #### [facility] ([facility]) [address] [place] [address] Lymphocytes/100 WBC (Bld) 25.0 % Normal 20.0-45.0 [facility] Comment on above: Performed By: #### L [id number] #### [facility] ([facility]) [address] [place] [address] MCH (RBC) [Entitic mass] 29.6 pg Normal 27.0-33.0 [facility] Comment on above: Performed By: #### L [id number] #### [facility] ([facility]) [address] [place] [address] MCV (RBC) [Entitic vol] 88.7 fL Normal 82.0-98.0 [facility] Comment on above: Performed By: #### L [id number] #### [facility] ([facility]) [address] [place] [address] Monocytes (Bld) [#/Vol] 0.44 10*3/uL Normal 0.10-1.00 [facility] Comment on above: Performed By: #### L [id number] #### [facility] [address] [place] [address] Monocytes/100 WBC (Bld) 9.0 % Normal 5.0-12.0 [facility] Comment on above: Performed By: #### L [id number] #### [facility] ([facility]) [address] [place] [address] Neutrophils (Bld) [#/Vol] 2.90 10*3/uL Normal 1.60-7.60 [facility] Comment on above: Performed By: #### L [id number] #### [facility] ([facility]) [address] [address] Neutrophils/100 WBC (Bld) 59.5 % Normal 40.0-72.0 [facility] Comment on above: Performed By: #### L [id number] #### [facility] ([facility]) [address] [place] [address] NRBC (PER 100 WBCS) BY AUTOMATED COUNT 0.0 % Normal 0 [facility] Comment on above: Performed By: #### L [id number] #### [facility] ([facility]) [address] [place] [address] PLATELETS (10*3/UL) IN BLOOD AUTOMATED COUNT 136 10*3/uL Low 150-400 [facility] Comment on above: Performed By: #### L [id number] #### [facility] ([facility]) [address] [place] [address] RBC (Bld) [#/Vol] 4.16 10*6/uL Low 4.20-5.[address] [facility] Comment on above: Performed By: #### L [id number] #### [facility] ([facility]) [address] [place] [address] WBC (Bld) [#/Vol] 4.88 10*3/uL Normal 4.00-10.[address] [facility] Comment on above: Performed By: #### L [id number] #### [facility] ([facility]) [address] [place] [address] [place] HEAD WO IV CONTRASTon CT HEAD WO IV CONTRAST STUDY: CT HEAD WITHOUT CONTRAST CLINICAL HISTORY: Transient ischemic attack (TIA) Hx of TIA Hx of TIA COMPARISON: None. TECHNIQUE: CT head was performed without contrast using the standard protocol. Automated exposure control was utilized. All CT scans at this facility use dose modulation, iterative reconstruction, and/or weight based dosing when appropriate to reduce radiation dose to as low as reasonably achievable. FINDINGS: No acute intracranial hemorrhage, mass effect, midline shift or extra axial fluid collection. Solomon-white matter differentiation is broadly preserved by technique. Mild to moderate diffuse cortical atrophy. Mild chronic microangiopathic ischemic changes in the deep white matter. Bilateral lens replacements. No focal soft tissue abnormality. Visualized paranasal sinuses and mastoid air cells are clear. Intracranial atherosclerosis of the carotid siphons. IMPRESSION: *No acute intracranial abnormality, by CT. MRI is more sensitive to assess for acute ischemia, if clinically warranted. Electronically signed: FAUZIA RODRÍGUEZ MD. 8 Invalid Interpretation Code [facility] MRI CARDIAC MORPHOLOGY AND F UNCTION W AND WO IV CONTRASTon 10-04-2023 MRI CARDIAC MORPHOLOGY AND FUNCTION W AND WO IV CONTRAST STUDY: Cardiac MRI without and with contrast CLINICAL HISTORY: Left ventricular pseudoaneurysm, mural thrombus, nonischemic adenopathy COMPARISON: None. TECHNIQUE: Multiplanar multisequence gated cardiac MRI was performed with steady state free precession imaging and pre- and postcontrast delayed myocardial enhancement views obtained prior to and following the uneventful ministration of intravenous gadolinium contrast. FINDINGS: Mildly diminished left ventricular systolic function. There is global left ventricular hypokinesis. There is akinesis of the basal inferior wall. Left ventricular quantitative parameters as follows: Ejection Fraction 49% (normal: male = 49-79 %; female = 52-79 %). End Diastolic Diameter is 56 mm (normal: Male: 42 -62 mm, female 39-59 mm). Stroke Volume 82 mL. End Diastolic Volume 166 mL (normal: male = 95-215 ml; female = 78-1 67 ml). End Systolic Volume 84 mL (normal: male = 25-85 ml, female = 21-64 ml). Anteroseptal wall thickness: 1.4 cm. Posterolateral wall thickness: 1.0 cm. There is transmural infarct of the basal inferolateral wall with focal outpouching compatible with pseudoaneurysm. There is some linear nonenhancing thrombus along the peripheral aspect of the pseudoaneurysm noted. No left ventricular apical thrombus identified. Left atrium is mildly dilated. Mild mitral regurgitation. Right atrium is mildly dilated. Mild tricuspid regurgitation. Normal right ventricular wall motion, function and size. Small bilateral pleural effusions. No pericardial effusion. Dependent changes and atelectasis in both lungs. Thoracic aorta and pulmonary artery are normal in caliber. Extracardiac Findings: None. IMPRESSION: Impression: 1. Mildly diminished left jugular systolic function. There is akinesis of the basal inferior lateral wall. 2. Transmural infarct of the basal inferolateral wall with focal outpouching and pseudoaneurysm formation. There is a small nonenhancing adherent thrombus of the left ventricular pseudoaneurysm. No left ventricular apical aneurysm identified. 3. Small bilateral pleural effusions. Electronically signed: Sabino Chapman. Not Vldtd Invalid Interpretation Code [facility] POCT GLUCOSE METER UNSOLICIT ED RESULTSon 10-04-2023 Glucose [Mass/Vol] 267 mg/dL High 70-105 [facility] Comment on above: Order Comment: Waive d Testing in the ED is performed under the ED CLIA certificate #[id number]. Result Comment: [email or web address] Performed By: #### L [id number] #### [facility] ([facility]) [address] [place] [address] Glucose [Mass/Vol] 190 mg/dL High 70-105 [facility] Comment on above: Order Comment: Waive d Testing in the ED is performed under the ED CLIA certificate #[id number]. Result Comment: [email or web address] Performed By: #### L [id number] ####[facility] ([facility])[address] [place] [address] Glucose [Mass/Vol] 236 mg/dL High 70-105 [facility] Comment on above: Order Comment: Waive d Testing in the ED is performed under the ED CLIA certificate #[id number]. Result Comment: [email or web address] Performed By: #### L [id number] #### [facility] ([facility]) [address] [place] [address] Glucose [Mass/Vol] 203 mg/dL High 70-105 [facility] Comment on above: Order Comment: Waive d Testing in the ED is performed under the ED CLIA certificate #[id number]. Result Comment: [email or web address] Performed By: #### L [id number] #### [facility] ([place]) [address] [place] [address] 30on 10-03-2023 30 The patient is Moderately Stable - Low risk of patient condition declining or worsening The patient's goals for the shift include comfort The clinical goals for the shift include VSS Problem: Pain - Adult Goal: Verbalizes/displays adequate comfort level or baseline comfort level Outcome: Progressing Flowsheets (Taken 10/03/2023 2259) Verbalizes/displays adequate comfort level or baseline comfort level: Encourage patient to monitor pain and request assistance Administer analgesics based on type and severity of pain and evaluate response Consider cultural and social influences on pain and pain management Assess pain using appropriate pain scale Implement non-pharmacological measures as appropriate and evaluate response Notify Licensed Independent Practitioner if interventions unsuccessful or patient reports new pain Problem: Safety - Adult Goal: Free from fall injury Outcome: Progressing Flowsheets (Taken 10/03/2023 0051) Free from fall injury: [place] fall precautions as indicated by assessment Assess patient frequently for physical needs Instruct patient to call for assistance with activity based on assessment Consider OT/PT consult to assist with strengthening/mobility Identify cognitive and physical deficits and behaviors that affect risk of falls Educate patient/family on patient safety, including physical limitations Modify environment to reduce risk of injury Problem: Discharge Planning Goal: Discharge to home or other facility with appropriate resources Outcome: Progressing Flowsheets (Taken 10/03/2023729 by Elma Paez RN) Discharge to home or other facility with appropriate resources: Identify barriers to discharge with patient and caregiver Arrange for needed discharge resources and transportation as appropriate Problem: Chronic Conditions and Co-morbidities Goal: Patient's chronic conditions and co-morbidity symptoms are monitored and maintained or improved Outcome: Progressing Flowsheets (Taken 10/03/2023729 by Elma Paez RN) Care Plan - Patient's Chronic Conditions and Co-Morbidity Symptoms are Monitored and Maintained or Improved: Monitor and assess patient's chronic conditions and comorbid symptoms for stability, deterioration, or improvement Collaborate with multidisciplinary team to address chronic and comorbid conditions and prevent exacerbation or deterioration Normal [facility] 30 The patient is The patient's goals for the shift include comfort The clinical goals for the shift include VSS Over the shift, the patient did not make progress toward the following goals. Barriers to progression include . Recommendations to address these barriers include . Normal [facility] 30 The patient is Moderately Stable - Low risk of patient condition declining or worsening The patient's goals for the shift include comfort The clinical goals for the shift include VSS Problem: Pain - Adult Goal: Verbalizes/displays adequate comfort level or baseline comfort level Outcome: Progressing Flowsheets (Taken 10/03/202350) Verbalizes/displays adequate comfort level or baseline comfort level: Encourage patient to monitor pain and request assistance Administer analgesics based on type and severity of pain and evaluate response Consider cultural and social influences on pain and pain management Assess pain using appropriate pain scale Implement non-pharmacological measures as appropriate and evaluate response Notify Licensed Independent Practitioner if interventions unsuccessful or patient reports new pain Problem: Safety - Adult Goal: Free from fall injury Outcome: Progressing Flowsheets (Taken 10/03/202350) Free from fall injury: [place] fall precautions as indicated by assessment Assess patient frequently for physical needs Instruct patient to call for assistance with activity based on assessment Consider OT/PT consult to assist with strengthening/mobility Identify cognitive and physical deficits and behaviors that affect risk of falls Educate patient/family on patient safety, including physical limitations Modify environment to reduce risk of injury Problem: Discharge Planning Goal: Discharge to home or other facility with appropriate resources Outcome: Progressing Flowsheets (Taken 10/03/202350) Discharge to home or other facility with appropriate resources: Identify barriers to discharge with patient and caregiver Identify discharge learning needs (meds, wound care, etc) Refer to discharge planning if patient needs post-hospital services based on physician order or complex needs related to functional status, cognitive ability or social support system Arrange for needed discharge resources and transportation as appropriate Arrange for interpreters to assist at discharge as needed Problem: Chronic Conditions and Co-morbidities Goal: Patient's chronic conditions and co-morbidity symptoms are monitored and maintained or improved Outcome: Progressing Flowsheets (Taken 10/03/202350) Care Plan - Patient's Chronic Conditions and Co-Morbidity Symptoms are Monitored and Maintained or Improved: Monitor and assess patient's chronic conditions and comorbid symptoms for stability, deterioration, or improvement Collaborate with multidisciplinary team to address chronic and comorbid conditions and prevent exacerbation or deterioration Update acute care plan with appropriate goals if chronic or comorbid symptoms are exacerbated and prevent overall improvement and discharge Normal [facility] ANTI-XA (HEPARIN LEVEL)on HEPARIN UNFRACTIONATED (U/ML) IN PPP BY CHROMOGENIC METHOD 0.20 IU/mL Low 0.3-0.7 [facility] Comment on above: Result Comment: [place] roxaban and Apixaban will interfere with the anti Xa assay used to monitor UFH and LMWH. Performed By: #### L [id number] #### [facility] ([facility]) [address] [place] [address] HEPARIN UNFRACTIONATED (U/ML) IN PPP BY CHROMOGENIC METHOD 0.23 IU/mL Low 0.3-0.7 [facility] Comment on above: Result Comment: [place] roxaban and Apixaban will interfere with the anti Xa assay used to monitor UFH and LMWH. Performed By: #### L [id number] ####[facility] ([facility])[address] [place] [address] BASIC METABOLIC PANELon 07 Anion gap [Moles/Vol] 11 mmol/L Normal 7-20 [facility] Comment on above: Performed By: #### L [id number] #### [facility] ([facility]) [address] [place] [address] Calcium [Mass/Vol] 8.8 mg/dL Normal 8.6-10.3 [facility] Comment on above: Performed By: #### L [id number] #### [facility] ([facility]) [address] [place] [address] Chloride [Moles/Vol] 105 mmol/L Normal 98-107 [facility] Comment on above: Performed By: #### L [id number] #### [facility] ([facility]) [address] [place] [address] CO2 [Moles/Vol] 27 mmol/L Normal 21-[address] [facility] Comment on above: Performed By: #### L [id number] #### [facility] ([facility]) [address] [place] [address] Creatinine [Mass/Vol] 0.85 mg/dL Normal 0.70-1.30 [facility] Comment on above: Performed By: #### L [id number] #### [facility] ([facility]) [address] [place] [address] GLOMERULAR FILTRATION RATE ML/MIN/1.73 SQ M.PREDICTED 89.5 mL/min/1.73m*2 Normal >60.0 [facility] Comment on above: Result Comment: [facility]???s estimated glomerular filtration rate (eGFR) will no longer include consideration of race in its calculation. The National Kidney Foundation???s eGFR Task Force developed new recommendations for the estimation of the glomerular filtration rate in the [place] They recommend immediate implementation of the new equation refit without the race variable in all laboratories because the calculation does not include race. In addition to not including race in the calculation and reporting, it included diversity in its development, and has acceptable performance characteristics and potential consequences that do not disproportionately affect any one group of individuals. Performed By: #### L [id number] #### [facility] ([facility]) [address] [place] [address] Glucose [Mass/Vol] 164 mg/dL High 70-100 [facility] Comment on above: Performed By: #### L [id number] #### [facility] ([facility]) [address] [place] [address] Potassium [Moles/Vol] 3.9 mmol/L Normal 3.5-5.1 [facility] Comment on above: Performed By: #### L [id number] #### [facility] ([facility]) [address] [place] [address] Sodium [Moles/Vol] 139 mmol/L Normal 136-145 [facility] Comment on above: Performed By: #### L [id number] #### [facility] ([facility]) [address] [place] [address] Urea nitrogen [Mass/Vol] 17 mg/dL Normal 7-25 [facility] Comment on above: Performed By: #### L [id number] #### [facility] ([facility]) [address] [place] [address] UREA NITROGEN/CREATININE (MASS RATIO) IN SER/PLAS 20.0 Normal [facility] Comment on above: Performed By: #### L [id number] #### [facility] ([facility]) [address] [place] [address] CBC WITH AUTO DIFFERENTIALon 10-03-2023 Basophils (Bld) [#/Vol] 0.05 10*3/uL Normal 0.00-0.20 [facility] Comment on above: Performed By: #### L [id number] #### [facility] ([facility]) [address] [place] [address] Basophils/100 WBC (Bld) 0.8 % Normal 0.0-1.0 [facility] Comment on above: Performed By: #### L [id number] #### [facility] ([facility]) [address] [place] [address] Eosinophils (Bld) [#/Vol] 0.22 10*3/uL Normal 0.00-0.50 [facility] Comment on above: Performed By: #### L [id number] #### [facility] ([facility]) [address] [place] [address] Eosinophils/100 WBC (Bld) 3.7 % Normal 0.0-6.0 [facility] Comment on above: Performed By: #### L [id number] #### [facility] ([facility]) [address] [facility] [place] [address] Erythrocyte distribution width (RBC) [Ratio] 13.2 % Normal 11.5-15.0 [facility] Comment on above: Performed By: #### L [id number] #### [facility] ([facility]) [address] [place] [address] ERYTHROCYTE MEAN CORPUSCULAR HEMOGLOBIN CONCENTRATION (G/DL) BY AUTOMATED 33.4 g/dL Normal 32.0-35.0 [facility] Comment on above: Performed By: #### L [id number] #### [facility] [address] [place] [address] Hematocrit (Bld) [Volume fraction] 38.9 % Low 39.0-55.0 [facility] Comment on above: Performed By: #### L [id number] #### [facility] ([facility]) [address] [place] [address] Hemoglobin (Bld) [Mass/Vol] 13.0 g/dL Normal 13.0-17.0 [facility] Comment on above: Performed By: #### L [id number] #### [facility] ([facility]) [address] [place] [address] Immature granulocytes (Bld) [#/Vol] 0.03 10*3/uL Normal 0.00-0.20 [facility] Comment on above: Performed By: #### L [id number] #### [facility] ([facility]) [address] [place] [address] Immature granulocytes/100 WBC (Bld) 0.5 % Normal 0.0-1.0 [facility] Comment on above: Performed By: #### L [id number] #### [facility] ([facility]) [address] [place] [address] Lymphocytes (Bld) [#/Vol] 1.61 10*3/uL Normal 1.20-4.00 [facility] Comment on above: Performed By: #### L [id number] #### [facility] ([facility]) [address] [place] [address] Lymphocytes/100 WBC (Bld) 26.9 % Normal 20.0-45.0 [facility] Comment on above: Performed By: #### L [id number] #### [facility] [address] [place] [address] MCH (RBC) [Entitic mass] 29.7 pg Normal 27.0-33.0 [facility] Comment on above: Performed By: #### L [id number] #### [facility] [address] [place] [address] MCV (RBC) [Entitic vol] 88.8 fL Normal 82.0-98.0 [facility] Comment on above: Performed By: #### L [id number] #### [facility] ([facility]) [address] [place] [address] Monocytes (Bld) [#/Vol] 0.45 10*3/uL Normal 0.10-1.00 [facility] Comment on above: Performed By: #### L [id number] #### [facility] ([facility]) [address] [place] [address] Monocytes/100 WBC (Bld) 7.5 % Normal 5.0-12.0 [facility] Comment on above: Performed By: #### L [id number] #### [facility] ([facility]) [address] [place] [address] Neutrophils (Bld) [#/Vol] 3.62 10*3/uL Normal 1.60-7.60 [facility] Comment on above: Performed By: #### L [id number] #### [facility] ([facility]) [address] [place] [address] Neutrophils/100 WBC (Bld) 60.6 % Normal 40.0-72.0 [facility] Comment on above: Performed By: #### L [id number] #### [facility] ([facility]) [address] [place] [address] NRBC (PER 100 WBCS) BY AUTOMATED COUNT 0.0 % Normal 0 [facility] Comment on above: Performed By: #### L [id number] #### [facility] ([facility]) [address] [place] [address] PLATELETS (10*3/UL) IN BLOOD AUTOMATED COUNT 135 10*3/uL Low 150-400 [facility] Comment on above: Performed By: #### L [id number] #### [facility] [address] [place] [address] RBC (Bld) [#/Vol] 4.38 10*6/uL Normal 4.20-5.[address] [facility] Comment on above: Performed By: #### L [id number] #### [facility] ([facility]) [address] [place] [address] WBC (Bld) [#/Vol] 5.98 10*3/uL Normal 4.00-10.[address] [facility] Comment on above: Performed By: #### L [id number] #### [facility] ([facility]) [address] [place] [address] HEMOGLOBIN A1Con 10-03-2023 Glucose [Mass/Vol] 197 mg/dL Normal [facility] Comment on above: Performed By: #### L [id number] #### [facility] ([facility]) [address] [place] [address] HbA1c (Bld) [Mass fraction] 8.5 % High 4.0-6.0 [facility] Comment on above: Performed By: #### L [id number] #### [facility] ([facility]) [address] [place] [address] HPon 10-03-2023 HP H&P reviewed. The patient was examined and there are no changes to the H&P. Kimmy Mcarthur is a 78 y.o. 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 Patient will undergo CORS. Normal [facility] LIPID PANELon 10-03-2023 CHOL/HDL 3.1 mg/dL Normal [facility] Comment on above: Performed By: #### L [id number] #### [facility] ([facility]) [address] [place] [address] Cholesterol [Mass/Vol] 157 mg/dL Normal 120-200 [facility] Comment on above: Performed By: #### L [id number] #### [facility] [address] [place] [address] Magnesium [Mass/Vol] 124 mg/dL Normal 40-149 [facility] Comment on above: Result Comment: TRIG LYCERIDE REFERENCE RANGE: 20 YEARS AND OLDER CARDIOVASCULAR RISK LESS THAN 150 mg/dL LOW RISK 150 TO 199 mg/dL BORDERLINE RISK 200 mg/dL AND GREATER HIGH RISK Performed By: #### L [id number] #### [facility] ([facility]) [address] [place] [address] Magnesium [Mass/Vol] 82 mg/dL Normal 0-160 [facility] Comment on above: Performed By: #### L [id number] #### [facility] ([facility]) [address] [place] [address] Magnesium [Mass/Vol] 50 mg/dL Normal 23-92 [facility] Comment on above: Performed By: #### L [id number] #### [facility] ([facility]) [address] [place] [address] NON HDL CHOL. (LDL+VLDL) 107 Normal [facility] Comment on above: Performed By: #### L [id number] #### [facility] ([facility]) [address] [place] [address] TOTAL VLDL-C 25 mg/dL Normal 0-40 [facility] Comment on above: Performed By: #### L [id number] #### [facility] ([facility]) [address] [place] [address] MRSA/MSSA DNA NASALon 2023 MRSA DNA Negative Normal Negative [facility] Comment on above: Order Comment: Testi ng methodology is an automated qualitative in vitro diagnostic test for the directdetection and differentiation of Staphylococcus aureus (SA) DNA and methicillin-resistant Staphylococcus aureus (MRSA) DNA from nasal swabs in patients at risk for nasal colonization. The test utilizes real-time polymerase chain reaction (PCR) for the amplification of MRSA/SA DNA and fluorogenic target-specific hybridization probes for the detection of the amplified DNA. A negative result does not preclude nasal colonization. Performed By: #### L [id number] ####[facility] ([facility])[address] [place] [address] MSSA DNA Negative Normal Negative [facility] Comment on above: Order Comment: Testi ng methodology is an automated qualitative in vitro diagnostic test for the directdetection and differentiation of Staphylococcus aureus (SA) DNA and methicillin-resistant Staphylococcus aureus (MRSA) DNA from nasal swabs in patients at risk for nasal colonization. The test utilizes real-time polymerase chain reaction (PCR) for the amplification of MRSA/SA DNA and fluorogenic target-specific hybridization probes for the detection of the amplified DNA. A negative result does not preclude nasal colonization. Performed By: #### L [id number] ####[facility] ([facility])[address] [place] [address] POCT GLUCOSE METER UNSOLICIT ED RESULTSon 10-03-2023 Glucose [Mass/Vol] 173 mg/dL High 70-105 [facility] Comment on above: Order Comment: Waive d Testing in the ED is performed under the ED CLIA certificate #[id number]. Result Comment: [email or web address] Performed By: #### L [id number] #### [facility] ([facility]) [address] [place] [address] Glucose [Mass/Vol] 223 mg/dL High 70-105 [facility] Comment on above: Order Comment: Waive d Testing in the ED is performed under the ED CLIA certificate #[id number]. Result Comment: [email or web address] Performed By: #### L [id number] #### [facility] ([facility]) [address] [place] [address] Glucose [Mass/Vol] 173 mg/dL High 70-105 [facility] Comment on above: Order Comment: Waive d Testing in the ED is performed under the ED CLIA certificate #[id number]. Result Comment: [email or web address] Performed By: #### L [id number] #### [facility] ([facility]) [address] [place] [address] Glucose [Mass/Vol] 163 mg/dL High 70-105 [facility] Comment on above: Order Comment: Waive d Testing in the ED is performed under the ED CLIA certificate #[id number]. Result Comment: [email or web address] Performed By: #### L [id number] #### [facility] ([facility]) [address] [place] [address] TSHon 10-03-2023 THYROTROPIN (MIU/L) IN SER/PLAS BY DETECTION LIMIT <= 0.05 MIU/L 6.07 mIU/L High 0.34-5.60 [facility] Comment on above: Performed By: #### L [id number] #### [facility] ([facility]) [address] [place] [address] URINALYSISon 10-03-2023 BILIRUBIN, TOTAL PRESENCE IN URINE Negative Normal Negative [facility] Comment on above: Order Comment: Micro scopics not performed on urines with negative chemical reactions unless requested on original order. Performed By: #### L [id number] #### [facility] ([facility]) [address] [place] [address] Clarity (U) Clear Normal Clear [facility] Comment on above: Order Comment: Micro scopics not performed on urines with negative chemical reactions unless requested on original order. Performed By: #### L [id number] #### [facility] ([facility]) [address] [place] [address] Color (U) Straw Abnormal Yellow [facility] Comment on above: Order Comment: Micro scopics not performed on urines with negative chemical reactions unless requested on original order. Performed By: #### L [id number] #### [facility] ([facility]) [address] [place] [address] Glucose (U) [Mass/Vol] mg/dL Abnormal Negative [facility] Comment on above: Order Comment: Micro scopics not performed on urines with negative chemical reactions unless requested on original order. Performed By: #### L [id number] #### [facility] ([facility]) [address] [place] [address] HEMOGLOBIN PRESENCE IN URINE Negative Normal Negative [facility] Comment on above: Order Comment: Micro scopics not performed on urines with negative chemical reactions unless requested on original order. Performed By: #### L [id number] #### [facility] ([facility]) [address] [place] [address] Ketones Ql (U) Negative Normal Negative [facility] Comment on above: Order Comment: Micro scopics not performed on urines with negative chemical reactions unless requested on original order. Performed By: #### L [id number] #### [facility] ([facility]) [address] [place] [address] LEUKOCYTE ESTERASE PRESENCE IN URINE BY TEST STRIP Negative Normal Negative [facility] Comment on above: Order Comment: Micro scopics not performed on urines with negative chemical reactions unless requested on original order. Performed By: #### L [id number] #### [facility] ([facility]) [address] [place] [address] NITRITE PRESENCE IN URINE Negative Normal Negative [facility] Comment on above: Order Comment: Micro scopics not performed on urines with negative chemical reactions unless requested on original order. Performed By: #### L [id number] #### [facility] ([facility]) [address] [facility] [place] [address] pH (U) 6.0 [pH] Normal 5.0-8.0 [facility] Comment on above: Order Comment: Micro scopics not performed on urines with negative chemical reactions unless requested on original order. Performed By: #### L [id number] #### [facility] ([facility]) [address] [facility] [address] Protein (U) [Mass/Vol] Negative Normal Negative [facility] Comment on above: Order Comment: Micro scopics not performed on urines with negative chemical reactions unless requested on original order. Performed By: #### L [id number] #### [facility] ([facility]) [address] [facility] [address] Specific gravity (U) [Rel density] 1.011 Low 1.015-1.020 [facility] Comment on above: Order Comment: Micro scopics not performed on urines with negative chemical reactions unless requested on original order. Performed By: #### L [id number] #### [facility] ([facility]) [address] [place] [address] 30on 10-02-2023 30 The patient is Moderately Stable - Low risk of patient condition declining or worsening The patient's goals for the shift include comfort and rest The clinical goals for the shift include stable VS Over the shift, the patient did not make progress toward the following goals. Barriers to progression include . Recommendations to address these barriers include . Normal [facility] ANTI-XA (HEPARIN LEVEL)on HEPARIN UNFRACTIONATED (U/ML) IN PPP BY CHROMOGENIC METHOD 0.44 IU/mL Normal 0.3-0.7 [facility] Comment on above: Result Comment: Erika roxaban and Apixaban will interfere with the anti Xa assay used to monitor UFH and LMWH. Performed By: #### L [id number] #### [facility] ([facility]) [address] [place] [address] BASIC METABOLIC PANELon Anion gap [Moles/Vol] 10 mmol/L Normal 7-20 [facility] Comment on above: Performed By: #### L [id number] #### [facility] ([facility]) [address] [place] [address] Calcium [Mass/Vol] 8.6 mg/dL Normal 8.6-10.3 [facility] Comment on above: Performed By: #### L [id number] #### [facility] ([facility]) [address] [place] [address] Chloride [Moles/Vol] 105 mmol/L Normal 98-107 [facility] Comment on above: Performed By: #### L [id number] #### [facility] [address] [place] [address] CO2 [Moles/Vol] 27 mmol/L Normal 21-[address] [facility] Comment on above: Performed By: #### L [id number] #### [facility] [address] [place] [address] Creatinine [Mass/Vol] 0.77 mg/dL Normal 0.70-1.30 [facility] Comment on above: Performed By: #### L [id number] #### [facility] ([facility]) [address] [place] [address] GLOMERULAR FILTRATION RATE ML/MIN/1.73 SQ M.PREDICTED 92.2 mL/min/1.73m*2 Normal >60.0 [facility] Comment on above: Result Comment: [facility]???s estimated glomerular filtration rate (eGFR) will no longer include consideration of race in its calculation. The National Kidney Foundation???s eGFR Task Force developed new recommendations for the estimation of the glomerular filtration rate in the [place] They recommend immediate implementation of the new equation refit without the race variable in all laboratories because the calculation does not include race. In addition to not including race in the calculation and reporting, it included diversity in its development, and has acceptable performance characteristics and potential consequences that do not disproportionately affect any one group of individuals. Performed By: #### L [id number] #### [facility] ([facility]) [address] [place] [address] Glucose [Mass/Vol] 153 mg/dL High 70-100 [facility] Comment on above: Performed By: #### L [id number] #### [facility] ([facility]) [address] [place] [address] Potassium [Moles/Vol] 3.8 mmol/L Normal 3.5-5.1 [facility] Comment on above: Performed By: #### L [id number] #### [facility] ([facility]) [address] [place] [address] Sodium [Moles/Vol] 138 mmol/L Normal 136-145 [facility] Comment on above: Performed By: #### L [id number] #### [facility] ([facility]) [address] [place] [address] Urea nitrogen [Mass/Vol] 16 mg/dL Normal 7-25 [facility] Comment on above: Performed By: #### L [id number] #### [facility] ([facility]) [address] [place] [address] UREA NITROGEN/CREATININE (MASS RATIO) IN SER/PLAS 20.8 [facility] Comment on above: Performed By: #### L [id number] #### [facility] ([facility]) [address] [place] [address] CBC WITH AUTO DIFFERENTIALon 10-02-2023 Basophils (Bld) [#/Vol] 0.04 10*3/uL Normal 0.00-0.20 [facility] Comment on above: Performed By: #### L [id number] #### [facility] ([facility]) [address] [place] [address] Basophils/100 WBC (Bld) 0.6 % Normal 0.0-1.0 [facility] Comment on above: Performed By: #### L [id number] #### [facility] ([facility]) [address] [place] [address] Eosinophils (Bld) [#/Vol] 0.22 10*3/uL Normal 0.00-0.50 [facility] Comment on above: Performed By: #### L [id number] #### [facility] ([facility]) [address] [place] [address] Eosinophils/100 WBC (Bld) 3.2 % Normal 0.0-6.0 [facility] Comment on above: Performed By: #### L [id number] #### [facility] ([facility]) [address] [place] [address] Erythrocyte distribution width (RBC) [Ratio] 13.2 % Normal 11.5-15.0 [facility] Comment on above: Performed By: #### L [id number] #### [facility] ([facility]) [address] [place] [address] ERYTHROCYTE MEAN CORPUSCULAR HEMOGLOBIN CONCENTRATION (G/DL) BY AUTOMATED 34.0 g/dL Normal 32.0-35.0 [facility] Comment on above: Performed By: #### L [id number] #### [facility] ([facility]) [address] [place] [address] Hematocrit (Bld) [Volume fraction] 38.5 % Low 39.0-55.0 [facility] Comment on above: Performed By: #### L [id number] #### [facility] ([facility]) [address] [place] [address] Hemoglobin (Bld) [Mass/Vol] 13.1 g/dL Normal 13.0-17.0 [facility] Comment on above: Performed By: #### L [id number] #### [facility] ([facility]) [address] [place] [address] Immature granulocytes (Bld) [#/Vol] 0.02 10*3/uL Normal 0.00-0.20 [facility] Comment on above: Performed By: #### L [id number] #### [facility] [address] [place] [address] Immature granulocytes/100 WBC (Bld) 0.3 % Normal 0.0-1.0 [facility] Comment on above: Performed By: #### L [id number] #### [facility] ([facility]) [address] [place] [address] IMMATURE PLATELET FRACTION % 2.6 % Normal 0.8-6.3 [facility] Comment on above: Performed By: #### L [id number] #### [facility] ([facility]) [address] [place] [address] Lymphocytes (Bld) [#/Vol] 1.45 10*3/uL Normal 1.20-4.00 [facility] Comment on above: Performed By: #### L [id number] #### [facility] ([facility]) [address] [place] [address] Lymphocytes/100 WBC (Bld) 21.1 % Normal 20.0-45.0 [facility] Comment on above: Performed By: #### L [id number] #### [facility] ([facility]) [address] [place] [address] MCH (RBC) [Entitic mass] 29.8 pg Normal 27.0-33.0 [facility] Comment on above: Performed By: #### L [id number] #### [facility] [address] [place] [address] MCV (RBC) [Entitic vol] 87.5 fL Normal 82.0-98.0 [facility] Comment on above: Performed By: #### L [id number] #### [facility] ([facility]) [address] [place] [address] Monocytes (Bld) [#/Vol] 0.50 10*3/uL Normal 0.10-1.00 [facility] Comment on above: Performed By: #### L [id number] #### [facility] ([facility]) [address] [place] [address] Monocytes/100 WBC (Bld) 7.3 % Normal 5.0-12.0 [facility] Comment on above: Performed By: #### L [id number] #### [facility] ([facility]) [address] [place] [address] Neutrophils (Bld) [#/Vol] 4.64 10*3/uL Normal 1.60-7.60 [facility] Comment on above: Performed By: #### L [id number] #### [facility] ([facility]) [address] [place] [address] Neutrophils/100 WBC (Bld) 67.5 % Normal 40.0-72.0 [facility] Comment on above: Performed By: #### L [id number] #### [facility] [address] [place] [address] NRBC (PER 100 WBCS) BY AUTOMATED COUNT 0.0 % Normal 0 [facility] Comment on above: Performed By: #### L [id number] #### [facility] ([facility]) [address] [place] [address] PLATELETS (10*3/UL) IN BLOOD AUTOMATED COUNT 134 10*3/uL Low 150-400 [facility] Comment on above: Performed By: #### L [id number] #### [facility] ([facility]) [address] [place] [address] RBC (Bld) [#/Vol] 4.40 10*6/uL Normal 4.20-5.[address] [facility] Comment on above: Performed By: #### L [id number] #### [facility] ([facility]) [address] [place] [address] WBC (Bld) [#/Vol] 6.87 10*3/uL Normal 4.00-10.[address] [facility] Comment on above: Performed By: #### L [id number] #### [facility] ([facility]) [address] [place] [address] POCT GLUCOSE METER UNSOLICIT ED RESULTSon 10-02-2023 Glucose [Mass/Vol] 241 mg/dL High 70-105 [facility] Comment on above: Order Comment: Waive d Testing in the ED is performed under the ED CLIA certificate #[id number]. Result Comment: [email or web address] Performed By: #### L [id number] #### [facility] ([facility]) [address] [place] [address] Glucose [Mass/Vol] 176 mg/dL High 70-105 [facility] Comment on above: Order Comment: Waive d Testing in the ED is performed under the ED CLIA certificate #[id number]. Result Comment: [email or web address] Performed By: #### L [id number] #### [facility] ([facility]) [address] [place] [address] Glucose [Mass/Vol] 237 mg/dL High 70-105 [facility] Comment on above: Order Comment: Waive d Testing in the ED is performed under the ED CLIA certificate #[id number]. Result Comment: [email or web address] Performed By: #### L [id number] #### [facility] ([facility]) [address] [place] [address] Glucose [Mass/Vol] 136 mg/dL High 70-105 [facility] Comment on above: Order Comment: Waive d Testing in the ED is performed under the ED CLIA certificate #[id number]. Result Comment: [email or web address] Performed By: #### L [id number] #### [facility] [address] [place] [address] Glucose [Mass/Vol] 156 mg/dL High 70-105 [facility] Comment on above: Order Comment: Waive d Testing in the ED is performed under the ED CLIA certificate #[id number]. Result Comment: [email or web address] Performed By: #### L [id number] #### [facility] ([facility]) [address] [place] [address] 30on 10-01-2023 30 The patient is Moderately Stable - Low risk of patient condition declining or worsening The patient's goals for the shift include comfort and rest The clinical goals for the shift include stable VS Over the shift, the patient did make progress toward his goals. Normal [facility] 30 The patient is Moderately Stable - Low risk of patient condition declining or worsening The patient's goals for the shift include comfort and rest The clinical goals for the shift include stable VS Over the shift, the patient did not make progress toward the following goals. Barriers to progression include . Recommendations to address these barriers include . Normal [facility] ANTI-XA (HEPARIN LEVEL)on HEPARIN UNFRACTIONATED (U/ML) IN PPP BY CHROMOGENIC METHOD 0.44 IU/mL Normal 0.3-0.7 [facility] Comment on above: Result Comment: Erika roxaban and Apixaban will interfere with the anti Xa assay used to monitor UFH and LMWH. Performed By: #### L [id number] #### [facility] ([facility]) [address] [place] [address] HEPARIN UNFRACTIONATED (U/ML) IN PPP BY CHROMOGENIC METHOD 0.32 IU/mL Normal 0.3-0.7 [facility] Comment on above: Result Comment: Erika roxaban and Apixaban will interfere with the anti Xa assay used to monitor UFH and LMWH. Performed By: #### L [id number] #### [facility] ([facility]) [address] [place] [address] HEPARIN UNFRACTIONATED (U/ML) IN PPP BY CHROMOGENIC METHOD 0.29 IU/mL Low 0.3-0.7 [facility] Comment on above: Result Comment: Erika roxaban and Apixaban will interfere with the anti Xa assay used to monitor UFH and LMWH. Performed By: #### L [id number] ####[facility] [place] [address] BASIC METABOLIC PANELon 07-0 -2023 Anion gap [Moles/Vol] 11 mmol/L Normal 7-20 [facility] Comment on above: Performed By: #### L [id number] #### [facility] [address] [place] [address] Calcium [Mass/Vol] 8.7 mg/dL Normal 8.6-10.3 [facility] Comment on above: Performed By: #### L [id number] #### [facility] [address] [place] [address] Chloride [Moles/Vol] 105 mmol/L Normal 98-107 [facility] Comment on above: Performed By: #### L [id number] #### [facility] ([facility]) [address] [place] [address] CO2 [Moles/Vol] 25 mmol/L Normal 21-[address] [facility] Comment on above: Performed By: #### L [id number] #### [facility] ([facility]) [address] [place] [address] Creatinine [Mass/Vol] 0.82 mg/dL Normal 0.70-1.30 [facility] Comment on above: Performed By: #### L [id number] #### [facility] ([facility]) [address] [place] [address] GLOMERULAR FILTRATION RATE ML/MIN/1.73 SQ M.PREDICTED 90.5 mL/min/1.73m*2 Normal >60.0 [facility] Comment on above: Result Comment: [facility]???s estimated glomerular filtration rate (eGFR) will no longer include consideration of race in its calculation. The [employer]???s eGFR Task Force developed new recommendations for the estimation of the glomerular filtration rate in the [place] They recommend immediate implementation of the new equation refit without the race variable in all laboratories because the calculation does not include race. In addition to not including race in the calculation and reporting, it included diversity in its development, and has acceptable performance characteristics and potential consequences that do not disproportionately affect any one group of individuals. Performed By: #### L [id number] #### [facility] ([facility]) [address] [place] [address] Glucose [Mass/Vol] 154 mg/dL High 70-100 [facility] Comment on above: Performed By: #### L [id number] #### [facility] ([facility]) [address] [place] [address] Potassium [Moles/Vol] 4.1 mmol/L Normal 3.5-5.1 [facility] Comment on above: Performed By: #### L [id number] #### [facility] ([facility]) [address] [place] [address] Sodium [Moles/Vol] 137 mmol/L Normal 136-145 [facility] Comment on above: Performed By: #### L [id number] #### [facility] ([facility]) [address] [place] [address] Urea nitrogen [Mass/Vol] 18 mg/dL Normal 7-25 [facility] Comment on above: Performed By: #### L [id number] #### [facility] ([facility]) [address] [place] [address] UREA NITROGEN/CREATININE (MASS RATIO) IN SER/PLAS 22.0 Normal [facility] Comment on above: Performed By: #### L [id number] #### [facility] ([facility]) [address] [place] [address] CBCon 10-01-2023 Erythrocyte distribution width (RBC) [Ratio] 13.2 % Normal 11.5-15.0 [facility] Comment on above: Performed By: #### L [id number] #### [facility] ([facility]) [address] [place] [address] ERYTHROCYTE MEAN CORPUSCULAR HEMOGLOBIN CONCENTRATION (G/DL) BY AUTOMATED 33.4 g/dL Normal 32.0-35.0 [facility] Comment on above: Performed By: #### L [id number] #### [facility] ([facility]) [address] [place] [address] Hematocrit (Bld) [Volume fraction] 36.5 % Low 39.0-55.0 [facility] Comment on above: Performed By: #### L [id number] #### [facility] ([facility]) [address] [place] [address] Hemoglobin (Bld) [Mass/Vol] 12.2 g/dL Low 13.0-17.0 [facility] Comment on above: Performed By: #### L [id number] #### [facility] ([facility]) [address] [place] [address] MCH (RBC) [Entitic mass] 29.7 pg Normal 27.0-33.0 [facility] Comment on above: Performed By: #### L [id number] #### [facility] ([facility]) [address] [place] [address] MCV (RBC) [Entitic vol] 88.8 fL Normal 82.0-98.0 [facility] Comment on above: Performed By: #### L [id number] #### [facility] ([facility]) [address] [place] [address] PLATELETS (10*3/UL) IN BLOOD AUTOMATED COUNT 141 10*3/uL Low 150-400 [facility] Comment on above: Performed By: #### L [id number] #### [facility] ([facility]) [address] [place] [address] RBC (Bld) [#/Vol] 4.11 10*6/uL Low 4.20-5.[address] [facility] Comment on above: Performed By: #### L [id number] #### [facility] ([facility]) [address] [place] [address] WBC (Bld) [#/Vol] 6.46 10*3/uL Normal 4.00-10.[address] [facility] Comment on above: Performed By: #### L [id number] #### [facility] ([facility]) [address] [place] [address] POCT GLUCOSE METER UNSOLICIT ED RESULTSon 10-01-2023 Glucose [Mass/Vol] 265 mg/dL High 70-105 [facility] Comment on above: Order Comment: Waive d Testing in the ED is performed under the ED CLIA certificate #[id number]. Result Comment: [email or web address] Performed By: #### L [id number] #### [facility] ([facility]) [address] [place] [address] Glucose [Mass/Vol] 223 mg/dL High 70-105 [facility] Comment on above: Order Comment: Waive d Testing in the ED is performed under the ED CLIA certificate #[id number]. Result Comment: [email or web address] dic Performed By: #### L [id number] #### [facility] ([facility]) [address] [place] [address] Glucose [Mass/Vol] 115 mg/dL High 70-105 [facility] Comment on above: Order Comment: Waive d Testing in the ED is performed under the ED CLIA certificate #[id number]. Result Comment: [email or web address] dic Performed By: #### L [id number] #### [facility] ([facility]) [address] [place] [address] Glucose [Mass/Vol] 162 mg/dL High 70-105 [facility] Comment on above: Order Comment: Waive d Testing in the ED is performed under the ED CLIA certificate #[id number]. Result Comment: [email or web address] dic Performed By: #### L [id number] #### [facility] ([facility]) [address] [place] [address] TROPONIN Ion 10-01-2023 Troponin I.cardiac [Mass/Vol] 0.55 ng/mL Critically high 0.00-0.04 [facility] Comment on above: Result Comment: M-DE EVIOUS CRITICAL RESULT Previous result verified on 10/01/2023 0205 on specimen/case [id number] called with component Troponin I for procedure Troponin I with value 0.85 ng/mL. Performed By: #### L [id number] #### [facility] ([facility]) [address] [place] [address] Troponin I.cardiac [Mass/Vol] 0.55 ng/mL Critically high 0.00-0.04 [facility] Comment on above: Result Comment: M-DE EVIOUS CRITICAL RESULT Previous result verified on 10/01/2023 0205 on specimen/case [id number] called with component Troponin I for procedure Troponin I with value 0.85 ng/mL. Performed By: #### L [id number] #### [facility] ([facility]) [address] [place] [address] 30on 09-30-2023 30 The patient is Moderately Stable - Low risk of patient condition declining or worsening The patient's goals for the shift include comfort and rest The clinical goals for the shift include stable VS Over the shift, the patient did make progress toward his goals. Normal [facility] 30 The patient is Moderately Unstable - Medium risk of patient condition declining or worsening The patient's goals for the shift include The clinical goals for the shift include comfort Over the shift, the patient did make progress toward the following goals. Problem: Pain - Adult Goal: Verbalizes/displays adequate comfort level or baseline comfort level Outcome: Progressing Problem: Safety - Adult Goal: Free from fall injury Outcome: Progressing Problem: Discharge Planning Goal: Discharge to home or other facility with appropriate resources Outcome: Progressing Problem: Chronic Conditions and Co-morbidities Goal: Patient's chronic conditions and co-morbidity symptoms are monitored and maintained or improved Outcome: Progressing Problem: Pain Goal: LTG-Verbalize decrease in pain Outcome: Progressing Goal: LTG-Demostrate that the pain does not impair ADLs Outcome: Progressing Goal: STG-Pt will verbalize decreased discomfort Outcome: Progressing Normal [facility] APTTon 09-30-2023 ACTIVATED PARTIAL THROMBOPLASTIN TIME IN PPP BY COAGULATION ASSAY 29.9 Seconds Normal 25.0-35.0 [facility] Comment on above: Order Comment: Waive d Testing in the ED is performed under the ED CLIA certificate #[id number]. Result Comment: Clin ical significance of the APTT is questionable in the presence of heparin. Performed By: #### L [id number] #### [facility] ([facility]) [address] [place] [address] CBCon 09-30-2023 Erythrocyte distribution width (RBC) [Ratio] 13.2 % Normal 11.5-15.0 [facility] Comment on above: Performed By: #### L [id number] ####[facility] ([facility])[address] [place] [address] ERYTHROCYTE MEAN CORPUSCULAR HEMOGLOBIN CONCENTRATION (G/DL) BY AUTOMATED 33.0 g/dL Normal 32.0-35.0 [facility] Comment on above: Performed By: #### L [id number] ####[facility] ([facility])[address] [place] [address] Hematocrit (Bld) [Volume fraction] 37.0 % Low 39.0-55.0 [facility] Comment on above: Performed By: #### L [id number] ####[facility] ([facility])[address] [place] [address] Hemoglobin (Bld) [Mass/Vol] 12.2 g/dL Low 13.0-17.0 [facility] Comment on above: Performed By: #### L [id number] ####[facility] ([facility])[address] [place] [address] MCH (RBC) [Entitic mass] 29.4 pg Normal 27.0-33.0 [facility] Comment on above: Performed By: #### L [id number] ####[facility] [place] [address] MCV (RBC) [Entitic vol] 89.2 fL Normal 82.0-98.0 [facility] Comment on above: Performed By: #### L [id number] ####[facility] ([facility])[address] [place] [address] PLATELETS (10*3/UL) IN BLOOD AUTOMATED COUNT 135 10*3/uL Low 150-400 [facility] Comment on above: Performed By: #### L [id number] ####[facility] ([facility])[address] [place] [address] RBC (Bld) [#/Vol] 4.15 10*6/uL Low 4.20-5.[address] [facility] Comment on above: Performed By: #### L [id number] ####[facility] ([facility])[address] [place] [address] WBC (Bld) [#/Vol] 5.43 10*3/uL Normal 4.00-10.[address] [facility] Comment on above: Performed By: #### L [id number] ####[facility] ([facility])[address] [place] [address] COMPREHENSIVE METABOLIC PANE Aaron 09-30-2023 Albumin [Mass/Vol] 3.5 g/dL Normal 3.5-5.7 [facility] Comment on above: Performed By: #### L [id number] ####[facility] ([facility])[address] [place] [address] ALP [Catalytic activity/Vol] 66 U/L Normal 34-104 [facility] Comment on above: Performed By: #### L [id number] ####[facility] [place] [address] ALT [Catalytic activity/Vol] 11 U/L Normal 7-52 [facility] Comment on above: Performed By: #### L [id number] ####[facility] ([facility])[address] [place] [address] Anion gap [Moles/Vol] 11 mmol/L Normal 7-20 [facility] Comment on above: Performed By: #### L [id number] ####[facility] ([facility])[address] [place] [address] AST [Catalytic activity/Vol] 13 U/L Normal 13-39 [facility] Comment on above: Performed By: #### L [id number] ####[facility] [place] [address] Bilirubin [Mass/Vol] 0.6 mg/dL Normal 0.3-1.0 [facility] Comment on above: Performed By: #### L [id number] ####[facility] [place] [address] Calcium [Mass/Vol] 8.9 mg/dL Normal 8.6-10.3 [facility] Comment on above: Performed By: #### L [id number] ####[facility] [place] [address] Chloride [Moles/Vol] 103 mmol/L Normal 98-107 [facility] Comment on above: Performed By: #### L [id number] ####[facility] [facility] ([facility]AKER)[address] [place] [address] CO2 [Moles/Vol] 27 mmol/L Normal 21-[address] [facility] Comment on above: Performed By: #### L [id number] ####[facility] (BEAKER)[address] [place] [address] Creatinine [Mass/Vol] 0.96 mg/dL Normal 0.70-1.30 [facility] Comment on above: Performed By: #### L [id number] ####[facility] (BEAKER)[address] [place] [address] GLOMERULAR FILTRATION RATE ML/MIN/1.73 SQ M.PREDICTED 81.4 mL/min/1.73m*2 Normal >60.0 [facility] Comment on above: Result Comment: [facility]???s estimated glomerular filtration rate (eGFR) will no longer include consideration of race in its calculation. The National Kidney Foundation???s eGFR Task Force developed new recommendations for the estimation of the glomerular filtration rate in the [place] They recommend immediate implementation of the new equation refit without the race variable in all laboratories because the calculation does not include race. In addition to not including race in the calculation and reporting, it included diversity in its development, and has acceptable performance characteristics and potential consequences that do not disproportionately affect any one group of individuals. Performed By: #### L [id number] ####[facility] (AKER)[address] [place] [address] Glucose [Mass/Vol] 253 mg/dL High 70-100 [facility] Comment on above: Performed By: #### L [id number] ####[facility] (AKER)[address] [place] [address] Potassium [Moles/Vol] 4.3 mmol/L Normal 3.5-5.1 [facility] Comment on above: Performed By: #### L [id number] ####[facility] (BEAKER)[address] [place] [address] Protein [Mass/Vol] 5.4 g/dL Low 6.0-8.3 [facility] Comment on above: Performed By: #### L [id number] ####[facility] (BEAKER)[address] [place] [address] Sodium [Moles/Vol] 137 mmol/L Normal 136-145 [facility] Comment on above: Performed By: #### L [id number] ####[facility] (BEAKER)[address] [place] [address] Urea nitrogen [Mass/Vol] 20 mg/dL Normal 7-25 [facility] Comment on above: Performed By: #### L [id number] ####[facility] (BEAKER)[address] [place] [address] UREA NITROGEN/CREATININE (MASS RATIO) IN SER/PLAS 20.8 Normal [facility] Comment on above: Performed By: #### L [id number] ####[facility] (ALBERTA)[address] [place] [address] CONSULTon 09-30-2023 CONSULT Cardiology Consult Note Reason for Consult: afib HPI: Kimmy Mcarthur is a 78 y.o. male with history of coronary artery disease, peripheral artery disease, history of balloon angioplasty of RCA stent here and February 2023 was referred from other facility the patient went there with chest discomfort found to have atrial fibrillation with rapid ventricular response heart rate was in the 150s, high-sensitivity troponin was elevated at 100, patient was given Cardizem and converted to sinus rhythm, he was referred here for further evaluation as the patient presented he was feeling well denied any chest discomfort denies shortness of breath lower extremity swelling PND's or orthopnea he noticed he gets short of breath sometimes but he has been doing well for the last few weeks Cardiology ROS: GENERAL: Denies fever, chills, night sweats, weight loss. CARDIOVASCULAR: Denies chest pain, exertional dyspnea, orthopnea/PND, lower extremity edema, palpitations, lightheadedness/dizzin ess, syncope. RESPIRATORY: Denies SOB, coughing, wheezing GI: Denies abdominal pain, nausea/vomiting. PSYCH: Denies anxiety. Past Medical History He has a past medical history of Carotid artery disorder ([facility]), Coronary artery disease, Diabetes mellitus ([facility]), Heart valve disease, Hypertension, and PAD (peripheral artery disease) ([facility]). Surgical History He has a past surgical history that includes CTA Aorta And Bilateral Iliofemoral Runoff W IV Contrast (02/11/2020); CTA Neck W IV Contrast (03/08/2021); Cataract extraction; Cholecystectomy; Shoulder surgery; Cardiac catheterization; Vascular surgery; Carotid endarterectomy; and Coronary stent placement. Social History He reports that he quit [...] 81 mg by mouth in the morning. 09/29/2023 atorvastatin (Lipitor) 80 mg tablet Take 1 tablet (80 mg) by mouth at bedtime. 90 tablet 3 09/29/2023 carvedilol (Coreg) 12.5 mg tablet Take 1 tablet (12.5 mg) by mouth with breakfast and with evening meal. 180 tablet 3 09/29/2023 clopidogrel (Plavix) 75 mg tablet Take 1 tablet (75 mg) by mouth once daily as directed. 90 tablet 3 09/29/2023 dapagliflozin propanediol (Farxiga) 10 mg Take 10 mg by mouth in the morning. 09/29/2023 ferrous sulfate 325 (65 Fe) MG tablet FeroSul 325 mg (65 mg iron) tablet TAKE 1 TABLET BY MOUTH TWICE DAILY 09/29/2023 insulin detemir (Levemir FlexPen) 100 unit/mL (3 mL) pen 35 Units at bedtime. 09/29/2023 metFORMIN (Glucophage) 1,000 mg tablet Take 1,000 mg by mouth with breakfast. ramipril (Altace) 5 mg capsule Take 1 capsule (5 mg) by mouth once daily as directed. 90 capsule 3 09/29/2023 tamsulosin (Flomax) 0.4 mg 24 hr capsule Take 0.4 mg by mouth in the morning. 09/29/2023 Last Recorded Vitals Patient Vitals for the past 24 hrs: BP Temp Temp src Pulse Resp SpO2 Height Weight 09/30/23 1516 -- 36.2 ???C (97.2 ???F) Temporal -- -- -- -- 76.2 kg (168 lb) 09/30/23 1513 134/60 -- -- 54 15 98 % 1.829 m (6' 0.01 ) -- Physical Examination: GENERAL: AOx3, in no acute distress. HEAD: Atraumatic, normocephalic. EYES: ESCOBAR, EOMI. NECK: No JVD present. CARDIAC: RRR. No murmur, rubs, or gallops. RESPIRATORY: CTAB, no increased effort of breathing. ABDOMEN: Soft, nontender, nondistended. EXTREMITIES: No lower extremity edema, peripheral pulses are 2+ bilaterally. NEURO: No focal deficits Relevant Lab Results @LABRESULTS@ No results found for this or any previous visit (from the past 4464 hour(s)). No results found for: CKTOTAL , CKMB , CKMBINDEX , TROPONINI Transesophageal echo (HARMONY) Result Date: 02/28/2023 1 [facility] Heart Station [address] [place] [address] [phone] (fax) Transesophageal Echocardiogram-[facility] Name: KIMMY MCARTHUR Study Date: 02/28/2023 09:41 AM B/P: 149 mmHg/58 mmHg HR: Date of : 1945 Location: [facility] Height: 72 in. Age: 77 year(s) Patient Room: Weight: 156 lb. Gender: Male Patient Status: OutPt BSA: 1.92 m2 Indication: Aortic Valve Stenosis Examination: HARMONY/Limited Doppler/CFI, 3D images Image Quality: Good Patient Consent: Informed, written consent was obtained for the procedure Exam Location: A HARMONY was performed in the [facility] without complications Anesthesia Pharyngeal anesthesia with viscous Lidocaine Conclusions Left Ventricle: The left ventricle is normal size. Global left ventricular systolic function is normal. The EF is 55 % visually. (more content not included)... Normal [facility] MAGNESIUMon 09-30-2023 Magnesium [Mass/Vol] 2.0 mg/dL Normal 1.9-2.7 [facility] Comment on above: Performed By: #### L [id number] #### [facility] (BEAKER) [address] [place] [address] NURSNOTEon 09-30-2023 NURSNOTE Pt update: Pt has orders to start amio and heparin drip. Semi Conductor Assembler waited for lab to draw baseline aptt. Semi Conductor Assembler started amio gtt in right AC. Semi Conductor Assembler attempted twice to start an IV. After two failed attempts, charge nurse for [facility] also tried to start an IV twice. All times were unsuccessful by both television script writer and charge nurse. PICC team was called for ultrasound IV. Normal [facility] PHOSPHORUSon 09-30-2023 Magnesium [Mass/Vol] 4.3 mg/dL Normal 2.5-5.0 [facility] Comment on above: Performed By: #### L [id number] #### [facility] ([facility]) [address] [place] [address] PLATELET COUNTon 09-30-2023 IMMATURE PLATELET FRACTION % 2.9 % Normal 0.8-6.3 [facility] Comment on above: Performed By: #### L [id number] ####[facility] ([facility])[address] [place] [address] PLATELETS (10*3/UL) IN BLOOD AUTOMATED COUNT 135 10*3/uL Low 150-400 [facility] Comment on above: Performed By: #### L [id number] ####[facility] ([facility])[address] [place] [address] POCT GLUCOSE METER UNSOLICIT ED RESULTSon 09-30-2023 Glucose [Mass/Vol] 214 mg/dL High 70-105 [facility] Comment on above: Order Comment: Waive d Testing in the ED is performed under the ED CLIA certificate #[id number]. Result Comment: miguel som3 Performed By: #### L [id number] ####[facility] ([facility])[address] [place] [address] Glucose [Mass/Vol] 192 mg/dL High 70-105 [facility] Comment on above: Order Comment: Waive d Testing in the ED is performed under the ED CLIA certificate #[id number]. Result Comment: [email or web address] [email or web address] Performed By: #### L [id number] #### [facility] ([facility]) [address] [place] [address] TROPONIN Ion 09-30-2023 Troponin I.cardiac [Mass/Vol] 0.85 ng/mL Critically high 0.00-0.04 [facility] Comment on above: Result Comment: M-DE EVIOUS CRITICAL RESULT Previous result verified on 09/30/2023 2258 on specimen/case [id number] called with component Troponin I for procedure Troponin I with value 1.20 ng/mL. Performed By: #### L [id number] #### [facility] ([facility]) [address] [place] [address] Troponin I.cardiac [Mass/Vol] 1.20 ng/mL Critically high 0.00-0.04 [facility] Comment on above: Result Comment: SERGIO EVIOUS CRITICAL RESULT Previous result verified on 09/30/2023 1903 on specimen/case [id number] called with component Troponin I for procedure Troponin I with value 1.18 ng/mL. Performed By: #### L [id number] #### [facility] (BEAKER) [address] [place] [address] Troponin I.cardiac [Mass/Vol] 1.18 ng/mL Critically high 0.00-0.04 [facility] Comment on above: Result Comment: FAN OPONIN INITIAL CRITICAL HIGH; RESPUN AND RETESTED Performed By: #### L [id number] ####[facility] (BEAKER)[address] [place] [address] Screenson 07-14-2023 Screens [id number]#1. 00TIFF Normal [facility] Screens [id number]#1. 00TIFF Normal [facility] Ambulatory Visit Summaryon 0 07-11-2023 Ambulatory Visit Summary KIMMY MCARTHUR :1945 Visit Date:07/11/2023 Ambulatory Visit Instructions [...] Follow-Up Appointments Tuesday 10:45 AM EDT With: Deja Perez MD Where: [facility] [place] Normal [facility] Lab Reportson 07-11-2023 Lab Reports [id number]#1.0 0TIFF Normal [facility] Lab Reports [id number]#1.0 0TIFF Normal [facility] Patient Educationon 07-11-19 Patient Education Urology Erectile [...] these instructions at home: Medicines ? Take aegs-prl-mqdfrer and prescription medicines only as told by [...] include cig (more content not included)... Normal [facility] Urology Office/Clinic Noteon 07-11-2023 Urology Office/Clinic Note [...] E&M of Est. Patient Moderate 30-39 Min 19260 Influenza immunization status assessed 1030F Medication list [...] Urnls Dip Stick Auto w/o Microscopy POC 57961 2. ED (erectile dysfunction) (N52.9: Male erectile [...] E&M of Est. Patient Moderate 30-39 Min 55129 Influenza immunization status assessed 1030F Medication list [...] Urnls Dip Stick Auto w/o Microscopy POC 08883 3. Family history of prostate cancer (Z80.42: Family history of malignant neoplasm of prostate) father. PSA: 05/29/20 - 3.11 06/08/21 - 3.45 06/23/22 - 3.14 June 2023 verbal report given ([facility] faxin report over) - 1.13, 34% free [...] E&M of Est. Patient Moderate 30-39 Min 43457 Influenza immunization status assessed 1030F Medication list documented in medical record 1159F Most recent diastolic blood pressure <80 mm Hg 3078F Patient screen for fall (more content not included)... Normal [facility] Comment on above: Result Comment: Elec tronically Signed By: ELLA BECKER PA-C\.dominique\Date and Time Signed: 07/11/23 16:23 EDT FREE AND TOTAL PSAon 024 % FREE PSA 34.9 Normal [facility] Comment on above: Result Comment: Percent Free [...] BPH. Performed By: #### F TPSA #### [facility] ([id number]) [address] [address] [place] [address] FREE PSA 1.13 ng/mL Normal [facility] Comment on above: Performed By: #### F TPSA #### [facility] ([id number]) [address] [address] PROSTATIC SPEC ANT 3.24 ng/mL Normal 0.00-4.00 [facility] Comment on above: Result Comment: The method used for this test is Magali Dozier DXI chemiluminescent immunoassay. Values obtained by different assay methods cannot be used interchangeably. Performed By: #### F TPSA #### [facility] ([id number]) [address] [address] [place] [address] CBC AND AUTO DIFFon 05-04-19 24 ABSOLUTE BASOPHIL 0.0 X10E9/L Normal 0.0-0.2 [facility] Comment on above: Performed By: #### C MP, 2498-4, 50470-4, 2276-4, CBCA #### [facility] ([id number]) [address] [address] ABSOLUTE NEUTROPHIL 3.8 X10E9/L Normal 1.5-6.6 [facility] Comment on above: Performed By: #### C MP, 2498-4, 00633-2, 2276-4, CBCA #### [facility] ([id number]) [address] [address] Basophils/100 WBC (Bld) 0.7 % Normal [facility] Comment on above: Performed By: #### C MP, 2498-4, 30219-6, 2276-4, CBCA #### [facility] ([id number]) [address] [place] [address] Eosinophils (Bld) [#/Vol] 0.3 10*3/uL Normal 0.0-0.4 [facility] Comment on above: Performed By: #### C MP, 2498-4, 64018-2, 2276-4, CBCA #### [facility] ([id number]) [address], [facility] [address] [place] [address] Eosinophils/100 WBC (Bld) 4.1 % Normal [facility] Comment on above: Performed By: #### C ROHINI, 2498-4, 64799-9, 2276-4, CBCA #### [facility] ([id number]) [address], [facility] [address] [place] [address] Erythrocyte distribution width (RBC) [Ratio] 13.4 % Normal 11.5-15.0 [facility] Comment on above: Performed By: #### C ROHINI, 2498-4, 04316-5, 2275-4, CBCA #### [facility] ([id number]) [address] [address] [place] [address] Hematocrit (Bld) [Volume fraction] 39.3 % Normal 39-49 [facility] Comment on above: Performed By: #### C MP, 2498-4, 62045-3, 2276-4, CBCA #### [facility] ([id number]) [address] [address] [place] [address] Hemoglobin (Bld) [Mass/Vol] 13.5 g/dL Normal 13.0-17.0 [facility] Comment on above: Performed By: #### C MP, 2498-4, 76618-0, 2276-4, CBCA #### [facility] ([id number]) [address], [address] [place] [address] Lymphocytes (Bld) [#/Vol] 2.4 10*3/uL Normal 1.0-3.5 [facility] Comment on above: Performed By: #### C ROHINI, 2498-4, 65188-9, 2276-4, CBCA #### [facility] ([id number]) [address], [facility] [address] [place] [address] Lymphocytes/100 WBC (Bld) 34.3 % Normal [facility] Comment on above: Performed By: #### C ROHINI, 2498-4, 70169-5, 2275-4, CBCA #### [facility] ([id number]) [address], [facility] [address] [place] [address] MCH (RBC) [Entitic mass] 30.6 pg Normal 27-34 [facility] Comment on above: Performed By: #### C ROHINI, 2498-4, 58056-5, 2275-4, CBCA #### [facility] ([id number]) [address] [address] [place] [address] MCHC (RBC) [Mass/Vol] 34.3 g/dL Normal 32-36 [facility] Comment on above: Performed By: #### C ROHINI, 2498-4, 13997-3, 2275-4, CBCA #### [facility] ([id number]) [address], [address] [place] [address] MCV (RBC) [Entitic vol] 89 fL Normal 80-100 [facility] Comment on above: Performed By: #### C ROHINI, 2498-4, 93928-2, 2276-4, CBCA #### [facility] ([id number]) [address], [address] [place] [address] Monocytes (Bld) [#/Vol] 0.5 10*3/uL Normal 0-0.9 [facility] Comment on above: Performed By: #### C MP, 2498-4, 26734-5, 2276-4, CBCA #### [facility] ([id number]) [address], [address] [place] [address] Monocytes/100 WBC (Bld) 7.3 % Normal [facility] Comment on above: Performed By: #### C MP, 2498-4, 99773-4, 2276-4, CBCA #### [facility] ([id number]) [address], [address] [place] [address] Neutrophils/100 WBC (Bld) 53.6 % Normal [facility] Comment on above: Performed By: #### C MP, 2498-4, 91033-5, 2276-4, CBCA #### [facility] ([id number]) [address], [address] [place] [address] Platelet mean volume (Bld) [Entitic vol] 8.1 fL Normal 7-12 [facility] Comment on above: Performed By: #### C MP, 2498-4, 46606-2, 2276-4, CBCA #### [facility] ([id number]) [address], [address] [place] [address] Platelets (Bld) [#/Vol] 169 10*3/uL Normal 150-450 [facility] Comment on above: Performed By: #### C MP, 2498-4, 37511-5, 2276-4, CBCA #### [facility] ([id number]) [address], [address] [place] [address] RBC COUNT 4.41 X10E12/L Normal 4.10-5.70 [facility] Comment on above: Performed By: #### C MP, 2498-4, 08181-8, 2276-4, CBCA #### [facility] ([id number]) [address], [address] [place] [address] WBC (Bld) [#/Vol] 7.0 10*3/uL Normal 4.0-11.0 [facility] Comment on above: Performed By: #### C MP, 2498-4, 98009-9, 2276-4, CBCA #### [facility] ([id number]) [address], [address] [place] [address] COMPREHENSIVE METABOLIC PANE Aaron 05-04-2023 Albumin [Mass/Vol] 4.0 g/dL Normal 3.2-5.3 [facility] Comment on above: Performed By: #### C ROHINI, 2498-4, 10438-8, 2276-4, CBCA #### [facility] ([id number]) [address], [address] [place] [address] ALP [Catalytic activity/Vol] 89 U/L Normal 39-130 [facility] Comment on above: Performed By: #### C ROHINI, 2498-4, 69664-3, 2276-4, CBCA #### [facility] ([id number]) [address], [address] [place] [address] ALT [Catalytic activity/Vol] 15 U/L Normal 0-40 [facility] Comment on above: Performed By: #### C MP, 2498-4, 33706-4, 2276-4, CBCA #### [facility] ([id number]) [address], [address] [place] [address] Anion gap [Moles/Vol] 9 mmol/L Normal 5-15 [facility] Comment on above: Performed By: #### C MP, 2498-4, 78070-4, 2276-4, CBCA #### [facility] ([id number]) [address], [address] [place] [address] AST [Catalytic activity/Vol] 13 U/L Normal 0-41 [facility] Comment on above: Performed By: #### C MP, 2498-4, 51041-1, 2276-4, CBCA #### [facility] ([id number]) [address], [address] [place] [address] Bilirubin [Mass/Vol] 1.1 mg/dL Normal 0.3-1.2 [facility] Comment on above: Performed By: #### C MP, 2498-4, 42970-9, 2276-4, CBCA #### [facility] ([id number]) [address] [place] [address] Calcium [Mass/Vol] 8.9 mg/dL Normal 8.5-10.5 [facility] Comment on above: Performed By: #### C ROHINI, 2498-4, 50308-7, 2276-4, CBCA #### [facility] ([id number]) [address] [place] [address] Chloride [Moles/Vol] 104 mmol/L Normal 98-109 [facility] Comment on above: Performed By: #### C ROHINI, 2498-4, 02624-7, 2276-4, CBCA #### [facility] ([id number]) [address] [place] [address] CO2 [Moles/Vol] 28 mmol/L Normal 22-32 [facility] Comment on above: Performed By: #### C MP, 2498-4, 33180-0, 2276-4, CBCA #### [facility] ([id number]) [address] [place] [address] Creatinine [Mass/Vol] 0.80 mg/dL Normal 0.60-1.30 [facility] Comment on above: Result Comment: METH OD TRACEABLE TO IDMS STANDARD Performed By: #### C ROHINI, 2498-4, 75227-0, 2276-4, CBCA #### [facility] ([id number]) [address] [place] [address] eGFR (CKD-EPI) NON-RACE DEPENDENT >90 Normal >59 [facility] Comment on above: Result Comment: Reported eGFR is based on the CKD-EPI 2020 equation that does not use a race coefficient. Performed By: #### C ROHINI, 2498-4, 49858-9, 2276-4, CBCA #### [facility] ([id number]) [address], [address] [place] [address] Glucose [Mass/Vol] 90 mg/dL Normal 65-99 [facility] Comment on above: Performed By: #### C ROHINI, 2498-4, 78516-7, 2275-4, CBCA #### [facility] ([id number]) [address], [address] [place] [address] Potassium [Moles/Vol] 3.2 mmol/L Low 3.5-5.0 [facility] Comment on above: Performed By: #### C ROHINI, 2498-4, 31569-8, 2275-, CBCA #### [facility] ([id number]) [address] [address] [address] [place] [address] Protein [Mass/Vol] 6.3 g/dL Normal 6.0-8.0 [facility] Comment on above: Performed By: #### C ROHINI, 2498-4, 75031-8, 2275-4, CBCA #### [facility] ([id number]) [address] [place] [address] Sodium [Moles/Vol] 141 mmol/L Normal 134-146 [facility] Comment on above: Performed By: #### C ROHINI, 2498-4, 04865-5, 6-4, CBCA #### [facility] ([id number]) [address] [address] [place] [address] Urea nitrogen [Mass/Vol] 20 mg/dL Normal 5-27 [facility] Comment on above: Performed By: #### C MP, 2498-4, 68838-4, 2276-4, CBCA #### [facility] ([id number]) [address] [place] [address] Comprehensive metabolic pane aaron 05-04-2023 Albumin [Mass/Vol] 4.0 g/dL 3.2 - 5.3 g[facility]P [Catalytic activity/Vol] 89 U/L 39 - 130 U/L [facility] ALT No additional P-5'-P [Catalytic activity/Vol] 15 U/L 0 - 40 U[facility] Anion gap [Moles/Vol] 9 mmol/L 5 - 15 mmol/L [facility] AST [Catalytic activity/Vol] 13 U/L 0 - 41 U/L [facility] Bilirubin [Mass/Vol] 1.1 mg/dL 0.3 - 1.2 [facility] Calcium [Mass/Vol] 8.9 mg/dL 8.5 - 10. 5 mg/dL [facility] Chloride [Moles/Vol] 104 mmol/L 98 - 109 mmol/L [facility] CO2 [Moles/Vol] 28 mmol/L 22 - 32 mmol/L [facility] Creatine [Mass/Vol] 0.80 mg/dL 0.60 - 1 .30 mg/dL [facility] Comment on above: METHOD TRACEABLE TO [facility] STANDARD GFR/1.73 sq M.predicted among non-blacks MDRD (S/P/Bld) [Vol rate/Area] mL/min/{1.73_m2} - [facility] Comment on above: Reported eGFR is based on the CKD-EPI 2020 equation that does not use a race coefficient. PERFORMED AT [facility] [address],[place] [address] Glucose [Mass/Vol] 90 mg/dL 65 - 99 mg/dL [facility] Potassium [Moles/Vol] 3.2 mmol/L Low 3.5 - 5.0 mmol/L [facility] Protein [Mass/Vol] 6.3 g/dL 6.0 - 8.0 g/dL [facility] Sodium [Moles/Vol] 141 mmol/L 134 - 146 mmol/L [facility] Urea nitrogen [Mass/Vol] 20 mg/dL 5 - 27 mg/dL [facility] FERRITINon 05-04-2023 Ferritin [Mass/Vol] 99 ng/mL Normal 24-336 [facility] Comment on above: Performed By: #### C ROHINI, 2498-4, 53194-7, 2276-4, CBCA #### [facility] ([id number]) [address] [facility] [address] [place] [address] HGB A1C (GLYCO-HGB)on 2023 Glucose [Mass/Vol] 226 mg/dL Normal [facility] Comment on above: Performed By: #### C ROHINI, 2498-4, 19387-8, 2275-4, CBCA #### [facility] ([id number]) [address] [address] HbA1c (Bld) [Mass fraction] 9.5 % High 4.4-5.6 [facility] Comment on above: Result Comment: NOTE ADA Guidelines Result HgbA1c Normal : less than 5.7 % Prediabetes : 5.7 % to 6.4 % Diabetes : > 6.4 % Use with caution in patients with abnormal hemoglobin variants as the half-life of red blood cells and in vivo glycation rates are affected. Performed By: #### C ROHINI, 2498-4, 50034-6, 2275-4, CBCA #### [facility] ([id number]) [address] [facility] [address] [place] [address] IRONon 05-04-2023 Iron [Mass/Vol] 54 ug/dL Normal 50-212 [facility] Comment on above: Performed By: #### David NOVA, 2498-4, 78449-0, 2276-4, CBCA #### [facility] ([id number]) [address] [place] [address] Lipid 1996 panelon 4 Cholesterol [Mass/Vol] 104 mg/dL Low 150-200 [facility] Comment on above: Performed By: #### David NOVA, 2498-4, 07204-9, 2276-4, CBCA #### [facility] ([id number]) [address] [place] [address] Cholesterol in HDL [Mass/Vol] 42 mg/dL Normal >39 [facility] Comment on above: Result Comment: HDL <40 mg/dL - High Risk HDL > or = 40mg/dL- Desirable HDL >60 mg/dL - Negative Risk Performed By: ###Erik Hernandez MP, 2498-4, 40281-8, 2275-4, CBCA #### [facility] ([id number]) [address] [place] [address] Cholesterol in LDL [Mass/Vol] 37 mg/dL Normal <130 [facility] Comment on above: Result Comment: LDL <100 mg/dL - Desirable LDL >160 mg/dL - High Risk Performed By: #### David NOVA, 2498-4, 14735-7, 2276-4, CBCA #### [facility] ([id number]) [address] [place] [address] Cholesterol in VLDL [Mass/Vol] 25 mg/dL Normal 0-30 [facility] Comment on above: Performed By: #### David NOVA, 2498-4, 27424-0, 2276-4, CBCA #### [facility] ([id number]) [address] [place] [address] CHOLESTEROL:HDL 2.5 Normal 1.0-5.0 [facility] Comment on above: Performed By: #### C ROHINI, 2498-4, 02235-8, 2276-4, CBCA #### [facility] ([id number]) [address] [address] Triglyceride [Mass/Vol] 127 mg/dL Normal 27-150 [facility] Comment on above: Performed By: #### C MP, 2498-4, 35079-7, 2276-4, CBCA #### [facility] ([id number]) [address] [place] [address] MICROALBUMIN - ALBUMIN:CREAT ININE URINE RATIOon 05-04-2023 ALB/CREAT RATIO NOT CALCULATED Normal 0.0-30.0 [facility] Comment on above: Result Comment: Result for Albumin/Creatinine Ratio cannot be reliably calculated because urine albumin and or urine creatinine is below the detection limit of the assay. Performed By: #### M ALBU #### [facility] ([id number]) [address] [place] [address] Albumin DL <= 20 mg/L (U) [Mass/Vol] mg/dL Normal 0.0-1.9 [facility] Comment on above: Performed By: #### M ALBU #### [facility] ([id number]) [address] [place] [address] URINE CREAT 108.56 mg/dL Normal [facility] Comment on above: Performed By: #### M ALBU #### [facility] ([id number]) [address] [place] [address] No Panel Informationon 05-04 Interpretation and review of laboratory results Abnormal [facility] URINALYSISon 05-04-2023 Bilirubin Ql (U) Negative Normal NEG [facility] Comment on above: Performed By: #### M ALBU #### [facility] ([id number]) [address] [place] [address] BLOOD/HGB Negative Normal NEG [facility] Comment on above: Performed By: #### M ALBU #### [facility] ([id number]) [address] [place] [address] Color (U) YELLOW Normal YELLOW [facility] Comment on above: Performed By: #### M ALBU #### [facility] ([id number]) [address] [place] [address] Glucose Ql (U) >1000 Abnormal NEG [facility] Comment on above: Performed By: #### M ALBU #### [facility] ([id number]) [address] [place] [address] Hyaline casts LM Ql (Urine sed) 1 /lpf Normal 0-2 [facility] Comment on above: Performed By: #### M ALBU #### [facility] ([id number]) [address] [place] [address] Ketones Ql (U) Negative Normal NEG [facility] Comment on above: Performed By: #### M ALBU #### [facility] ([id number]) [address] [place] [address] Leukocyte esterase Test strip Ql (U) Negative Normal NEG [facility] Comment on above: Result Comment: HIGH CONCENTRATIONS OF GLUCOSE MAY DECREASE THE REACTIVITY OF THE DIPSTICK LEUKOCYTE TEST PAD. Performed By: #### M ALBU #### [facility] ([id number]) [address] [place] [address] MUCOUS PRESENT Abnormal NONE [facility] Comment on above: Performed By: #### M ALBU #### [facility] ([id number]) [address] [place] [address] Nitrite Ql (U) Negative Normal NEG [facility] Comment on above: Performed By: #### M ALBU #### [facility] ([id number]) [address] [place] [address] pH (U) 5.5 [pH] Normal 5.0-8.5 [facility] Comment on above: Performed By: #### M ALBU #### [facility] ([id number]) [address] [place] [address] Protein Ql (U) Trace Abnormal NEG [facility] Comment on above: Performed By: #### M ALBU #### [facility] ([id number]) [address] [place] [address] R.B.CELLS 1 /hpf Normal 0-5 [facility] Comment on above: Performed By: #### Brionna ALBU #### [facility] ([id number]) [address] [place] [address] Specific gravity (U) [Rel density] 1.023 Normal 1.003-1.035 [facility] Comment on above: Performed By: #### M ALBU #### [facility] ([id number]) [address] [place] [address] SQUAMOUS EPITHELIUM <1 Normal 0-5 [facility] Comment on above: Performed By: #### M ALBU #### [facility] ([id number]) [address] [place] [address] TURBIDITY CLEAR Normal CLEAR [facility] Comment on above: Performed By: #### M ALBU #### [facility] ([id number]) [address] [place] [address] Urobilinogen (U) [Mass/Vol] mg/dL Normal <1.1 [facility] Comment on above: Performed By: #### Brionna ALBU #### [facility] ([id number]) [address] [facility] [place] [address] W.B.CELLS 1 /hpf Normal 0-5 [facility] Comment on above: Performed By: #### Brionna ALBU #### [facility] ([id number]) [address] [facility] [place] [address] Urinalysis, manual onlyon Epithelial cells Auto (Urine sed) [#/Area] <1 [facility] Glucose (U) [Mass/Vol] mg/dL Abnormal Negative mg/dL [facility] Hemoglobin Auto test strip Ql (U) Negative Negative [facility] Hyaline casts (Urine sed) [#/Area] 1 /[LPF] [facility] Ketones (U) [Mass/Vol] Negative Negative mg/dL [facility] Leukocyte esterase Auto test strip Ql (U) Negative Negative [facility] Comment on above: HIGH CONCENTRATIONS OF GLUCOSE MAY DECREASE THE REACTIVITY OF THE DIPSTICK LEUKOCYTE TEST PAD. Mucus Ql (Urine sed) PRESENT Abnormal NONE [facility] Nitrite Auto test strip Ql (U) Negative Negative [facility] Protein (U) [Mass/Vol] Trace Abnormal Negative mg/dL [facility] RBC Auto (Urine sed) [#/Area] 1 [facility] Specific gravity Refractometry automated (U) [Rel density] 1.023 1.003 - 1.035 [facility] Turbidity Ql (U) CLEAR CLEAR [facility] Urobilinogen Qn (U) <1.1 NINF [facility] WBC Auto (Urine sed) [#/Area] 1 [facility] Office Visiton 04-18-2023 Follow-up visit [id number] Kimmy Mcarthur 1945 M Date Provider Department Center 04/18/2023 NATASHA FAGAN Family History Problem Relation Age of Onset Cancer Father Diabetes Father Family Status - Relation Status Age at Father Level of Service:86015 DE OFFICE/OUTPATIENT ESTABLISHED LOW MDM 20 MIN Normal [facility] ANEAquiles 02-28-2023 ANES -- Attestation signed by Natasha Campo MD at 02/28/2023 11:53 AM Natasha Campo MD, MPH, [facility], [facility], [facility] Interventional Cardiology Pager Email: [email or web address] Patient: Kimmy Mcarthur Procedure Information Date/Time: 02/28/23929 Procedure: TRANSESOPHAGEAL ECHO (HARMONY) Location: [facility] Vascular Lab Clinical [...] discussed with fellow. Additional Equipment Requests Normal [facility] ANES -- Attestation signed by Cecilia Mathis MD at 02/28/2023 6:33 PM By using [...] an additional personal documentation from me. Patient: Kimmy Mcarthur Procedure Information Date/Time: 02/28/23929 Procedure: TRANSESOPHAGEAL ECHO (HARMONY) Location: [facility] Vascular Lab Clinical information reviewed: [facility] Meds Physical Exam Airway Mallampati: III TM distance: <3 FB Neck ROM: full Cardiovascular Rhythm: regular Rate: normal Dental Pulmonary - normal exam Abdominal - normal exam Abdomen: soft Anesthesia Plan ASA 3 other (Conscious sedation) Anesthetic plan and risks discussed with patient. Use of blood products discussed with patient who consented to blood products. Plan discussed with fellow. Additional Equipment Requests Normal [facility] HPon 02-28-2023 HP -- Attestation signed by Natasha Campo MD at 02/28/2023 11:53 AM Natasha Campo MD, MPH, [facility], [facility], [facility] Interventional Cardiology Pager Email: [email or web address] History Of Present Illness Kimmy Mcarthur is a 77 y.o. male for [...] past medical history of Carotid artery disorder ([facility]), Coronary artery disease, Diabetes mellitus ([facility]), Heart valve disease, Hypertension, and PAD (peripheral artery disease) ([facility]). Surgical History He has a past surgical [...] further recs pending cath results Normal [facility] -- Attestation signed by Cecilia Mathis MD at 02/28/2023 6:32 PM By using [...] documentation from me. History Of Present Illness Kimmy Mcarthur is a 77 y.o. male for elective HARMONY and heart catheterization for Moderate to severe MR and moderate perfusion defect in the inferior wall. Past Medical History He has a past medical history of Carotid artery disorder ([facility]), Coronary artery disease, Diabetes mellitus ([facility]), Heart valve disease, Hypertension, and PAD (peripheral artery disease) ([facility]). Surgical History He has a past surgical [...] ankle brachial index (FADY) without exercise 03/03/2022 [id number] Final Review of Systems All other systems [...] agreed to proceed forward with the testing. [facility] NURSNOTEon 12-04-2023 NURSNOTE RN educated pt on d/ c instructions. RN encouraged pt to voice any questions or concerns. Pt verbalizes no questions or concerns at this time. Pt was wheeled off of unit with all of belongings. [facility] NURSNOTE Bedside swallow stud y completed and passed. [facility] Orders Onlyon 02-09-2023 Orders Only [id number] Kimmy Mcarthur 1945 M Pending Sale To [facility] Provider Department Center 02/09/2023 JENNIFFER GAYTAN [facility] Family History Problem Relation Age of Onset Cancer Father Diabetes Father Family Status - Relation Status Age at Father [facility] Office Visiton 12-29-2022 Follow-up visit [id number] Kimmy Mcarthur 1945 M Date Provider Department Center 12/29/2022 Kacie-NATASHA CAMPO CARD [facility] Family History Problem Relation Age of Onset Cancer Father Diabetes Father Family Status - Relation Status Age at Father Level of Service:46454 DE OFFICE/OUTPATIENT ESTABLISHED MOD MDM 30-39 MIN [facility] CBC AUTO DIFFon 06-11-2022 BASO # 0.0 103/ul Normal 0.0-0.1 [facility] Comment on above: Performed By: #### C BC #### [facility] [address] [address] [address] Enoch Stein Basophils/100 WBC (Bld) 0.6 % Normal 0.2-2.0 [facility] Comment on above: Performed By: #### C BC #### [facility] [address] [address] [address] Enoch Stein EO # 0.2 103/ul Normal 0.0-0.7 [facility] Comment on above: Performed By: #### C BC #### [facility] [address] [address] [address] Enoch Stein Eosinophils/100 WBC (Bld) 2.9 % Normal 0.9-7.0 [facility] Comment on above: Performed By: #### C BC #### [facility] [address] [place] [address] Dr. Enoch Stein Erythrocyte distribution width (RBC) [Ratio] 13.7 % Normal 11.0-15.0 [facility] Comment on above: Performed By: #### C BC #### [facility] [address] [place] [address] Dr. Enoch Stein Hematocrit (Bld) [Volume fraction] 35.6 % Critically low 42.0-54.0 [facility] Comment on above: Performed By: #### C BC #### [facility] [address] [place] [address] Dr. Enoch Stein Hemoglobin (Bld) [Mass/Vol] 11.7 g/dL Critically low 14.0-18.0 [facility] Comment on above: Performed By: #### C BC #### [facility] [address] [place] [address] Dr. Enoch Stein IG # 0.03 10e3/ul Normal 0.00-0.03 [facility] Comment on above: Performed By: #### C BC #### [facility] [address] [place] [address] Dr. Enoch Stein IG % 0.5 % Normal 0.0-0.5 [facility] Comment on above: Performed By: #### C BC #### [facility] [address] [place] [address] Dr. Enoch Stein LYMPH # 2.2 103/ul Normal 1.2-3.8 [facility] Comment on above: Performed By: #### C BC #### [facility] [address] [place] [address] Dr. Enoch Stein Lymphocytes/100 WBC (Bld) 35.4 % Normal 20.5-60.0 [facility] Comment on above: Performed By: #### C BC #### [facility] [address] [place] [address] Dr. Enoch Stein MANUAL DIFF REQ NO Normal [facility] Comment on above: Performed By: #### C BC #### [facility] [address] [place] [address] Dr. Enoch Stein MCH (RBC) [Entitic mass] 30.5 pg Normal 25.9-34.0 [facility] Comment on above: Performed By: #### C BC #### [facility] [address] [place] [address] Dr. Enoch Stein MCHC (RBC) [Mass/Vol] 32.9 g/dL Normal 29.9-35.2 [facility] Comment on above: Performed By: #### C BC #### [facility] [address] [place] [address] Dr. Enoch Stein MCV (RBC) [Entitic vol] 92.7 fL Normal 80.0-94.0 [facility] Comment on above: Performed By: #### C BC #### [facility] [address] [place] [address] Dr. Enoch Stein MONO # 0.5 103/ul Normal 0.3-0.8 [facility] Comment on above: Performed By: #### C BC #### [facility] [address] [place] [address] Dr. Enoch Stein Monocytes/100 WBC (Bld) 7.6 % Normal 1.7-12.0 [facility] Comment on above: Performed By: #### C BC #### [facility] [address] [place] [address] Dr. Enoch Stein NEUT # 3.3 103/ul Normal 1.4-6.5 [facility] Comment on above: Performed By: #### C BC #### [facility] [address] [place] [address] Dr. Enoch Stein Neutrophils/100 WBC (Bld) 53.0 % Normal 43.0-75.0 [facility] Comment on above: Performed By: #### C BC #### [facility] [address] [place] [address] Dr. Enoch Stein Platelet mean volume (Bld) [Entitic vol] 9.4 fL Critically low 9.5-13.5 [facility] Comment on above: Performed By: #### C BC #### [facility] [address] [place] [address] Dr. Enoch Stein PLT 225 103/ul Normal 150-450 [facility] Comment on above: Performed By: #### C BC #### [facility] [address] [address] [address] Enoch Stein RBC 3.84 106/ul Critically low 4.70-6.10 [facility] Comment on above: Performed By: #### C BC #### [facility] [id number] Enoch Stein WBC 6.2 103/ul Normal 4.0-11.0 [facility] Comment on above: Performed By: #### C BC #### [facility] [address] [address] [address] 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 DESCRIPTION: COMPLETE [...] Campo M.D. on 06/11/2022 at 14:32 Normal [facility] FERRITINon 06-11-2022 Ferritin [Mass/Vol] 52.0 ng/mL Normal 26.0-388.0 [facility] Comment on above: Performed By: #### F ERR, IRON, VITB12 #### [facility] [address] [address] [address] Enoch Stein GLYCOHEMOGLOBIN A1Con 2022 ADA RECOMMENDATION SEE BELOW Normal [facility] Comment on above: Result Comment: ADA RECOMMENDED LIMIT 4.0 - 6.0 ADA THERAPEUTIC TARGET < 7.0 ACTION SUGGESTED > 7.0 Performed By: #### F ERR, IRON, VITB12 #### [facility] [address] [address] [address] Enoch Stein Glucose [Mass/Vol] 180 mg/dL Normal [facility] Comment on above: Performed By: #### F ERR, IRON, VITB12 #### [facility] [address] [address] [address] Enoch Stein HbA1c (Bld) [Mass fraction] 7.9 % Critically high 4.5-6.2 [facility] Comment on above: Performed By: #### F ERR, IRON, VITB12 #### [facility] [address] [address] [address] Enoch Stein IRONon 06-11-2022 Iron [Mass/Vol] 86.0 ug/dL Normal 65.0-175.0 [facility] Comment on above: Performed By: #### F ERR, IRON, VITB12 #### [facility] [address] [address] [address] Enoch Stein LIPID PROFILEon 06-11-2022 CHOL-HDL RATIO NORM SEE BELOW Normal [facility] Comment on above: Result Comment: 3.3 - 4.4 LOW RISK 4.4 - 7.1 AVERAGE RISK 7.1 - 11.0 MODERATE RISK >11.0 HIGH RISK Performed By: #### F ERR, IRON, VITB12 #### [facility] [address] [address] [address] Enoch Stein Cholesterol [Mass/Vol] 113 mg/dL Normal <=200 [facility] Comment on above: Performed By: #### F ERR, IRON, VITB12 #### [facility] [address] [address] [address] Enoch Stein Cholesterol in HDL [Mass/Vol] 52 mg/dL Normal 40-60 [facility] Comment on above: Performed By: #### F ERR, IRON, VITB12 #### [facility] [address] [address] [address] Enoch Stein Cholesterol in LDL [Mass/Vol] 47.0 mg/dL Normal [facility] Comment on above: Performed By: #### F ERR, IRON, VITB12 #### [facility] [address] [address] [address] Enoch Stein Cholesterol.total/C holesterol in HDL [Mass ratio] 2.2 {ratio} Normal [facility] Comment on above: Performed By: #### F ERR, IRON, VITB12 #### [facility] [address] [address] [address] Enoch Stein HDL NORMAL > or = 60 mg/dl - LO W CARDIOVASCULAR RISK <40 mg/dl - HIGH CARDIOVASCULAR RISK Normal [facility] Comment on above: Performed By: #### F ERR, IRON, VITB12 #### [facility] [address] [address] [address] Enoch Stein LDL CALC NORMAL SEE BELOW Normal [facility] Comment on above: Result Comment: <100 mg/dl OPTIMAL 100 - 129 mg/dl NEAR OR ABOVE OPTIMAL 130 - 159 mg/dl BORDERLINE HIGH 160 - 189 mg/dl HIGH >190 mg/dl VERY HIGH Performed By: #### F ERR, IRON, VITB12 #### [facility] [address] [address] [address] Enoch Stein Triglyceride [Mass/Vol] 70 mg/dL Normal <=150 [facility] Comment on above: Performed By: #### F ERR, IRON, VITB12 #### [facility] [address] [address] [address] Enoch Stein VLDL CALC 14.0 mg/dL Normal [facility] Comment on above: Performed By: #### F ERR, IRON, VITB12 #### [facility] [address] [address] [address] Enoch Stein MICROALBUMIN, RAND URon 05-26 mALB <1.3 Normal <=30.0 [facility] Comment on above: Performed By: #### M ALBR #### [facility] [address] [address] [address] Enoch Stein PROF 14(COMP METB)on 023 Albumin [Mass/Vol] 3.7 g/dL Normal 3.4-5.0 [facility] Comment on above: Performed By: #### F ERR, IRON, VITB12 #### [facility] [address] [address] [address] Enoch Stein Albumin/Globulin [Mass ratio] 1.2 {ratio} Normal [facility] Comment on above: Performed By: #### F ERR, IRON, VITB12 #### [facility] [address] [address] [address] Enoch Stein ALP [Catalytic activity/Vol] 90 U/L Normal 46-116 [facility] Comment on above: Performed By: #### F ERR, IRON, VITB12 #### [facility] [address] [address] [address] Enoch Stein ALT [Catalytic activity/Vol] 34 U/L Normal 16-63 [facility] Comment on above: Performed By: #### F ERR, IRON, VITB12 #### [facility] [address] [place] [address] Dr. Enoch Stein Anion gap [Moles/Vol] 14.8 mmol/L Normal [facility] Comment on above: Performed By: #### F ERR, IRON, VITB12 #### [facility] [address] [place] [address] Dr. Enoch Stein AST [Catalytic activity/Vol] 22 U/L Normal 15-37 [facility] Comment on above: Performed By: #### F ERR, IRON, VITB12 #### [facility] [address] [place] [address] Dr. Enoch Stein Bilirubin [Mass/Vol] 0.6 mg/dL Normal 0.2-1.0 [facility] Comment on above: Performed By: #### F ERR, IRON, VITB12 #### [facility] [address] [place] [address] Dr. Enoch Stein Calcium [Mass/Vol] 9.7 mg/dL Normal 8.5-10.1 [facility] Comment on above: Performed By: #### F ERR, IRON, VITB12 #### [facility] [address] [place] [address] Dr. Enoch Stein Chloride [Moles/Vol] 105 mmol/L Normal 98-107 [facility] Comment on above: Performed By: #### F ERR, IRON, VITB12 #### [facility] [address] [place] [address] Dr. Enoch Stein CO2 [Moles/Vol] 26.7 mmol/L Normal 21.0-32.0 [facility] Comment on above: Performed By: #### F ERR, IRON, VITB12 #### [facility] [address] [address] [address] Enoch Stein Creatinine [Mass/Vol] 0.78 mg/dL Normal 0.70-1.30 [facility] Comment on above: Performed By: #### F ERR, IRON, VITB12 #### [facility] [address] [place] [address] Dr. Enoch Stein EGFR-AF CUBAN >60 Normal >=60 [facility] Comment on above: Performed By: #### F ERR, IRON, VITB12 #### [facility] [address] [place] [address] Dr. Enoch Stein EGFR-NON AF CUBAN >60 Normal >=60 [facility] Comment on above: Performed By: #### F ERR, IRON, VITB12 #### [facility] [address] [place] [address] Dr. Enoch Stein Globulin (S) [Mass/Vol] 3.2 g/dL Normal [facility] Comment on above: Performed By: #### F ERR, IRON, VITB12 #### [facility] [address] [place] [address] Dr. Enoch Stein Glucose [Mass/Vol] 179 mg/dL Critically high 74-106 [facility] Comment on above: Performed By: #### F ERR, IRON, VITB12 #### [facility] [address] [place] [address] Dr. Enoch Stein Potassium [Moles/Vol] 4.5 mmol/L Normal 3.5-5.1 [facility] Comment on above: Performed By: #### F ERR, IRON, VITB12 #### [facility] [address] [place] [address] Dr. Enoch Stein Protein [Mass/Vol] 6.9 g/dL Normal 6.4-8.2 [facility] Comment on above: Performed By: #### F ERR, IRON, VITB12 #### [facility] [address] [place] [address] Dr. Enoch Stein Sodium [Moles/Vol] 142 mmol/L Normal 136-145 [facility] Comment on above: Performed By: #### F ERR, IRON, VITB12 #### [facility] [address] [place] [address] Dr. Enoch Stein Urea nitrogen [Mass/Vol] 19.0 mg/dL Critically high 7.0-18.0 [facility] Comment on above: Performed By: #### F ERR, IRON, VITB12 #### [facility] [address] [place] [address] Dr. Enoch Stein Urea nitrogen/Creatinine [Mass ratio] 24.4 mg/mg Normal [facility] Comment on above: Performed By: #### F ERR, IRON, VITB12 #### [facility] [address] [place] [address] Dr. Enoch Stein UA RANDOM W/MICROSCOPICon BACTERIA NONE SEEN Normal NONE SEEN [facility] Comment on above: Performed By: #### U AMIC #### [facility] [address] [place] [address] Dr. Enoch Stein Bilirubin Ql (U) Negative Normal NEGATIVE [facility] Comment on above: Performed By: #### U AMIC #### [facility] [address] [place] [address] Dr. Enoch Stein CAST NONE SEEN Normal NONE SEEN [facility] Comment on above: Performed By: #### U AMIC #### [facility] [address] [place] [address] Dr. Enoch Stein Clarity (U) CLEAR Normal CLEAR [facility] Comment on above: Performed By: #### U AMIC #### [facility] [address] [place] [address] Dr. Enoch Stein Color (U) LT. YELLOW Normal YELLOW [facility] Comment on above: Performed By: #### U AMIC #### [facility] [address] [place] [address] Dr. Enoch Stein Crystals LM Nom (Urine sed) NONE SEEN Normal NONE SEEN [facility] Comment on above: Performed By: #### U AMIC #### [facility] [address] [place] [address] Dr. Enoch Stein Epithelial cells LM Ql (Urine sed) NONE SEEN Normal NONE SEEN /RARE [facility] Comment on above: Performed By: #### U AMIC #### [facility] [address] [place] [address] Dr. Enoch Steni Glucose Ql (U) 250 mg/dl Abnormal NEGATIVE [facility] Comment on above: Performed By: #### U AMIC #### [facility] [address] [address] [address] Enoch Stein Hemoglobin Ql (U) Negative Normal NEGATIVE [facility] Comment on above: Performed By: #### U AMIC #### [facility] [address] [address] [address] Enoch Stein Ketones Ql (U) Negative Normal NEGATIVE [facility] Comment on above: Performed By: #### U AMIC #### [facility] [address] [place] [address] Dr. Enoch Stein LEUKOCYTES Negative Normal NEGATIVE [facility] Comment on above: Performed By: #### U AMIC #### [facility] [address] [place] [address] Dr. Enoch Stein MUCOUS TRACE Abnormal NONE SEEN [facility] Comment on above: Performed By: #### U AMIC #### [facility] [address] [address] [address] Enoch Stein Nitrite Ql (U) Negative Normal NEGATIVE [facility] Comment on above: Performed By: #### U AMIC #### [facility] [address] [place] [address] Dr. Enoch Stein pH (U) 5.5 [pH] Normal 5-9 [facility] Comment on above: Performed By: #### U AMIC #### [facility] [address] [address] [address] Enoch Stein RBC NONE SEEN Abnormal 0-2 [facility] Comment on above: Performed By: #### U AMIC #### [facility] [address] [place] [address] Dr. Enoch Stein SPEC GRAVITY 1.020 Normal 1.005-<=1.025 [facility] Comment on above: Performed By: #### U AMIC #### [facility] [address] [address] [address] Enoch Stein UA PROTEIN Negative Normal NEGATIVE/ TRACE [facility] Comment on above: Performed By: #### U AMIC #### [facility] [address] [address] [address] Enoch Stein Urobilinogen Qn (U) 0.2 {Reilly'U}/dL Normal 0.2 - 1. 0 [facility] Comment on above: Performed By: #### U AMIC #### [facility] [address] [address] [address] Enoch Stein WBC NONE SEEN Normal NONE SEEN [facility] Comment on above: Performed By: #### U AMIC #### [facility] [address] [address] [address] Enoch Stein VITAMIN B12on 06-11-2022 Cobalamin (Vitamin B12) [Mass/Vol] 413.0 pg/mL Normal 193.0-986.0 [facility] Comment on above: Performed By: #### F ERR, IRON, VITB12 #### [facility] [address] [address] [address] ABD/PELV W CONon 01-07-20 CT ABD/PELV W CON EXAMINATION: CT ABD/PELV [...] SANJAY REECE Date: 2022-01-06 16:24 Normal [facility] AMYLASEon 01-05-2022 Amylase [Catalytic activity/Vol] 55 U/L Normal 25-115 [facility] Comment on above: Performed By: #### F ERR, IRON, VITB12 #### [facility] [address] [place] [address] Dr. Enoch Stein CBC AUTO DIFFon 01-05-2022 BASO # 0.0 103/ul Normal 0.0-0.1 [facility] Comment on above: Performed By: #### F ERR, IRON, VITB12 #### [facility] [address] [place] [address] Dr. Enoch Stein Basophils/100 WBC (Bld) 0.5 % Normal 0.2-2.0 [facility] Comment on above: Performed By: #### F ERR, IRON, VITB12 #### [facility] [address] [place] [address] Dr. Enoch Stein EO # 0.3 103/ul Normal 0.0-0.7 [facility] Comment on above: Performed By: #### F ERR, IRON, VITB12 #### [facility] [address] [place] [address] Dr. Enoch Stein Eosinophils/100 WBC (Bld) 3.7 % Normal 0.9-7.0 [facility] Comment on above: Performed By: #### F ERR, IRON, VITB12 #### [facility] [address] [place] [address] Dr. Enoch Stein Erythrocyte distribution width (RBC) [Ratio] 13.2 % Normal 11.0-15.0 [facility] Comment on above: Performed By: #### F ERR, IRON, VITB12 #### [facility] [address] [place] [address] Dr. Enoch Stein Hematocrit (Bld) [Volume fraction] 39.3 % Critically low 42.0-54.0 [facility] Comment on above: Performed By: #### F ERR, IRON, VITB12 #### [facility] [address] [place] [address] Dr. Enoch Stein Hemoglobin (Bld) [Mass/Vol] 13.0 g/dL Critically low 14.0-18.0 [facility] Comment on above: Performed By: #### F ERR, IRON, VITB12 #### [facility] [address] [place] [address] Dr. Enoch Stein IG # 0.04 10e3/ul Critically high 0.00-0.03 [facility] Comment on above: Performed By: #### F ERR, IRON, VITB12 #### [facility] [address] [place] [address] Dr. Enoch Stein IG % 0.5 % Normal 0.0-0.5 [facility] Comment on above: Performed By: #### F ERR, IRON, VITB12 #### [facility] [address] [place] [address] Dr. Enoch Stein LYMPH # 1.6 103/ul Normal 1.2-3.8 [facility] Comment on above: Performed By: #### F ERR, IRON, VITB12 #### [facility] [address] [place] [address] Dr. Enoch Stein Lymphocytes/100 WBC (Bld) 20.4 % Critically low 20.5-60.0 [facility] Comment on above: Performed By: #### F ERR, IRON, VITB12 #### [facility] [address] [place] [address] Dr. Enoch Stein MANUAL DIFF REQ NO Normal [facility] Comment on above: Performed By: #### F ERR, IRON, VITB12 #### [facility] [address] [place] [address] Dr. Enoch Stein MCH (RBC) [Entitic mass] 30.5 pg Normal 25.9-34.0 [facility] Comment on above: Performed By: #### F ERR, IRON, VITB12 #### [facility] [address] [place] [address] Dr. Enoch Stein MCHC (RBC) [Mass/Vol] 33.1 g/dL Normal 29.9-35.2 [facility] Comment on above: Performed By: #### F ERR, IRON, VITB12 #### [facility] [address] [place] [address] Dr. Enoch Stein MCV (RBC) [Entitic vol] 92.3 fL Normal 80.0-94.0 [facility] Comment on above: Performed By: #### F ERR, IRON, VITB12 #### [facility] [address] [place] [address] Dr. Enoch Stein MONO # 0.4 103/ul Normal 0.3-0.8 [facility] Comment on above: Performed By: #### F ERR, IRON, VITB12 #### [facility] [address] [place] [address] Dr. Enoch Stein Monocytes/100 WBC (Bld) 4.7 % Normal 1.7-12.0 [facility] Comment on above: Performed By: #### F ERR, IRON, VITB12 #### [facility] [address] [place] [address] Dr. Enoch Stein NEUT # 5.6 103/ul Normal 1.4-6.5 [facility] Comment on above: Performed By: #### F ERR, IRON, VITB12 #### [facility] [address] [place] [address] Dr. Enoch Stein Neutrophils/100 WBC (Bld) 70.2 % Normal 43.0-75.0 [facility] Comment on above: Performed By: #### F ERR, IRON, VITB12 #### [facility] [address] [address] [address] Enoch Stein Platelet mean volume (Bld) [Entitic vol] 10.2 fL Normal 9.5-13.5 [facility] Comment on above: Performed By: #### F ERR, IRON, VITB12 #### [facility] [address] [address] [address] Enoch Stein PLT 192 103/ul Normal 150-450 [facility] Comment on above: Performed By: #### F ERR, IRON, VITB12 #### [facility] [address] [place] [address] Dr. Enoch Stein RBC 4.26 106/ul Critically low 4.70-6.10 [facility] Comment on above: Performed By: #### F ERR, IRON, VITB12 #### [facility] [address] [place] [address] Dr. Enoch Stein WBC 8.0 103/ul Normal 4.0-11.0 [facility] Comment on above: Performed By: #### F ERR, IRON, VITB12 #### [facility] [address] [place] [address] Dr. Enoch Stein CULTURE URINEon 01-05-2022 CULTURE URINE Culture Observations : NO GROWTH. Normal [facility] Comment on above: Performed By: #### F ERR, IRON, VITB12 #### [facility] [address] [place] [address] Dr. Enoch Stein GLYCOHEMOGLOBIN A1Con 2021 ADA RECOMMENDATION SEE BELOW Normal [facility] Comment on above: Result Comment: ADA RECOMMENDED LIMIT 4.0 - 6.0 ADA THERAPEUTIC TARGET < 7.0 ACTION SUGGESTED > 7.0 Performed By: #### A 1C #### [facility] [address] [place] [address] Dr. Enoch Stein Glucose [Mass/Vol] 166 mg/dL Normal [facility] Comment on above: Performed By: #### A 1C #### [facility] [address] [place] [address] Dr. Enoch Stein HbA1c (Bld) [Mass fraction] 7.4 % Critically high 4.5-6.2 [facility] Comment on above: Performed By: #### A 1C #### [facility] [address] [place] [address] Dr. Enoch Stein LIPASEon 01-05-2022 Lipase [Catalytic activity/Vol] 86.0 U/L Normal 73.0-393.0 [facility] Comment on above: Performed By: #### F ERR, IRON, VITB12 #### [facility] [address] [place] [address] Dr. Enoch Stein PROF 14(COMP METB)on 022 Albumin [Mass/Vol] 3.8 g/dL Normal 3.4-5.0 [facility] Comment on above: Performed By: #### F ERR, IRON, VITB12 #### [facility] [address] [place] [address] Dr. Enoch Stein Albumin/Globulin [Mass ratio] 1.1 {ratio} Normal [facility] Comment on above: Performed By: #### F ERR, IRON, VITB12 #### [facility] [address] [place] [address] Dr. Enoch Stein ALP [Catalytic activity/Vol] 101 U/L Normal 46-116 [facility] Comment on above: Performed By: #### F ERR, IRON, VITB12 #### [facility] [address] [place] [address] Dr. Enoch Stein ALT [Catalytic activity/Vol] 25 U/L Normal 16-63 [facility] Comment on above: Performed By: #### F ERR, IRON, VITB12 #### [facility] [address] [place] [address] Dr. Enoch Stein Anion gap [Moles/Vol] 15.2 mmol/L Normal [facility] Comment on above: Performed By: #### F ERR, IRON, VITB12 #### [facility] [address] [place] [address] Dr. Enoch Stein AST [Catalytic activity/Vol] 14 U/L Critically low 15-37 [facility] Comment on above: Performed By: #### F ERR, IRON, VITB12 #### [facility] [address] [place] [address] Dr. Enoch Stein Bilirubin [Mass/Vol] 1.0 mg/dL Normal 0.2-1.0 [facility] Comment on above: Performed By: #### F ERR, IRON, VITB12 #### [facility] [address] [place] [address] Dr. Enoch Stein Calcium [Mass/Vol] 9.4 mg/dL Normal 8.5-10.1 [facility] Comment on above: Performed By: #### F ERR, IRON, VITB12 #### [facility] [address] [place] [address] Dr. Enoch Stein Chloride [Moles/Vol] 104 mmol/L Normal 98-107 [facility] Comment on above: Performed By: #### F ERR, IRON, VITB12 #### [facility] [address] [place] [address] Dr. Enoch Stein CO2 [Moles/Vol] 27.1 mmol/L Normal 21.0-32.0 [facility] Comment on above: Performed By: #### F ERR, IRON, VITB12 #### [facility] [address] [place] [address] Dr. Enoch Stein Creatinine [Mass/Vol] 1.23 mg/dL Normal 0.70-1.30 [facility] Comment on above: Performed By: #### F ERR, IRON, VITB12 #### [facility] [address] [place] [address] Dr. Enoch Stein EGFR-AF CUBAN >60 Normal >=60 [facility] Comment on above: Performed By: #### F ERR, IRON, VITB12 #### [facility] [address] [place] [address] Dr. Enoch Stein EGFR-NON AF CUBAN 57 mL/min/1.73m2 Critically low >=60 [facility] Comment on above: Performed By: #### F ERR, IRON, VITB12 #### [facility] [address] [place] [address] Dr. Enoch Stein Globulin (S) [Mass/Vol] 3.4 g/dL Normal [facility] Comment on above: Performed By: #### F ERR, IRON, VITB12 #### [facility] [address] [address] [address] Enoch Stein Glucose [Mass/Vol] 165 mg/dL Critically high 74-106 [facility] Comment on above: Performed By: #### F ERR, IRON, VITB12 #### [facility] [address] [address] [address] Enoch Stein Potassium [Moles/Vol] 5.3 mmol/L Critically high 3.5-5.1 [facility] Comment on above: Performed By: #### F ERR, IRON, VITB12 #### [facility] [address] [place] [address] Dr. Enoch Stein Protein [Mass/Vol] 7.2 g/dL Normal 6.4-8.2 [facility] Comment on above: Performed By: #### F ERR, IRON, VITB12 #### [facility] [address] [place] [address] Dr. Enoch Stein Sodium [Moles/Vol] 141 mmol/L Normal 136-145 [facility] Comment on above: Performed By: #### F ERR, IRON, VITB12 #### [facility] [address] [place] [address] Dr. Enoch Stein Urea nitrogen [Mass/Vol] 26.0 mg/dL Critically high 7.0-18.0 [facility] Comment on above: Performed By: #### F ERR, IRON, VITB12 #### [facility] [address] [place] [address] Dr. Enoch Stein Urea nitrogen/Creatinine [Mass ratio] 21.1 mg/mg Normal [facility] Comment on above: Performed By: #### F ERR, IRON, VITB12 #### [facility] [address] [place] [address] Dr. Enoch Stein SED RATE [facility] 2021 SED RATE 4 mm/hr Normal <=20 [facility] Comment on above: Performed By: #### S EDR #### [facility] [address] [address] [address] Enoch Stein UA RANDOM W/MICROSCOPICon BACTERIA TRACE Abnormal NONE SEEN [facility] Comment on above: Performed By: #### U AMIC #### [facility] [address] [address] [address] Enoch Stein Bilirubin Ql (U) SMALL Abnormal NEGATIVE [facility] Comment on above: Performed By: #### U AMIC #### [facility] [address] [address] [address] Enoch Stein CA OX CRYSTALS FEW Normal [facility] Comment on above: Performed By: #### U AMIC #### [facility] [address] [address] [address] Enoch Stein CAST SEEN Abnormal NONE SEEN The [facility] Comment on above: Performed By: #### U AMIC #### [facility] [address] [address] [address] Enoch Stein Clarity (U) CLEAR Normal CLEAR [facility] Comment on above: Performed By: #### U AMIC #### [facility] [address] [address] [address] Enoch Stein Color (U) DK. YELLOW Normal YELLOW [facility] Comment on above: Performed By: #### U AMIC #### [facility] [address] [address] [address] Enoch Stein Crystals LM Nom (Urine sed) SEEN Abnormal NONE SEEN [facility] Comment on above: Performed By: #### U AMIC #### [facility] [address] [address] [address] Enoch Stein Epithelial cells LM Ql (Urine sed) RARE Normal NONE SEEN /RARE [facility] Comment on above: Performed By: #### U AMIC #### [facility] [address] [address] [address] Enoch Stein Glucose Ql (U) Negative Normal NEGATIVE The [facility] Comment on above: Performed By: #### U AMIC #### [facility] [address] [address] [address] Enoch Stein Hemoglobin Ql (U) Negative Normal NEGATIVE [facility] Comment on above: Performed By: #### U AMIC #### [facility] [address] [address] [address] Enoch Stein HYALINE CAST MODERATE Normal [facility] Comment on above: Performed By: #### U AMIC #### [facility] [address] [address] [address] Enoch Stein Ketones Ql (U) 15 mg/dl Abnormal NEGATIVE [facility] Comment on above: Performed By: #### U AMIC #### [facility] [address] [place] [address] Dr. Enoch Stein LEUKOCYTES Negative Normal NEGATIVE [facility] Comment on above: Performed By: #### U AMIC #### [facility] [address] [place] [address] Dr. Enoch Stein MUCOUS MODERATE Abnormal NONE SEEN [facility] Comment on above: Performed By: #### U AMIC #### [facility] [address] [address] [address] Enoch Stein Nitrite Ql (U) Negative Normal NEGATIVE [facility] Comment on above: Performed By: #### U AMIC #### [facility] [address] [place] [address] Dr. Enoch Stein pH (U) 6.0 [pH] Normal 5-9 [facility] Comment on above: Performed By: #### U AMIC #### [facility] [address] [place] [address] Dr. Enoch Stein RBC 0-2 Normal 0-2 [facility] Comment on above: Performed By: #### U AMIC #### [facility] [address] [place] [address] Dr. Enoch Stein SPEC GRAVITY >=1.030 Abnormal 1.005-<=1.025 [facility] Comment on above: Performed By: #### U AMIC #### [facility] [address] [place] [address] Dr. Enoch Stein UA PROTEIN 100 mg/dl Abnormal NEGATIVE/ TRACE [facility] Comment on above: Performed By: #### U AMIC #### [facility] [address] [address] [address] Enoch Stein Urobilinogen Qn (U) 1.0 {Reilly'U}/dL Normal 0.2 - 1. 0 [facility] Comment on above: Performed By: #### U AMIC #### [facility] [address] [address] [address] Enoch Stein WBC 0-2 Abnormal NONE SEEN [facility] Comment on above: Performed By: #### U AMIC #### [facility] [address] [address] [address] Enoch Stein ECHOCARDIO M/2D COMPLETEon 0 10-14-2021 ECHOCARDIO M/2D COMPLETE Patient: KIMMY MCARTHUR Exam Date: 10/14/2021 : 1945 Gender:M Ordering : DWAIN RAY [facility] Admission #: [id number] Family : ELO MARISOL BOYCE [facility] Order #: [id number] CLICK HERE TO VIEW EXAM ECHOCARDIOGRAM REPORT [...] Campo M.D. on 10/14/2021 at 16:57 Normal [facility] CTA [facility] 03-04-2021 CTA [facility] Department of Radiology [address] [place] [id number] ======== Patient Name: KIMMY MCARTHUR : 1945 Sex: M Age: Race: White Pt. Location: [facility] Patient Status: D Ordered Date: 01/28/2021 4:35:00 PM Completed Date: 03/04/2021 10:46 AM Requesting Provider: ALEX REECE Attending Provider: ALEX REECE Report Copy To: PRABHJOT VILLATORO Signs & Symptoms: I65.29 Occlusion and stenosis of unspecified carotid artery I10 History: Keira patient will need labs Need Wed appt medicare no pc required 12032 / i65.29 med nec passed *kw 02/04/21 Comments: Exam: CTA NECK ======== CTA NECK 03/04/2021 10:46 AM CLINICAL INDICATIONS: [...] viewed on a separate workstation. The [place] Symptomatic Carotid Endarterectomy Trial (NASCET) method for [...] low as reasonably achievable Electronically signed: Troy Wadsworth. Transcribed by: [email or web address], User Resident: TROY WADSWORTH Electronically Signed by: TROY WADSWORTH @ 03/08/2021 08:19 AM I personally read this/these film(s) with this resident Normal The [facility] Vital Signs Date Time Vital Sign Value Performing Clinician Facility 07-11-2023 13:56-0400 Body temperature 98.06 [degF] ELLA BECKER [facility] 07-11-2023 13:56-0400 Diastolic blood pressure 71 mm[Hg] ELAL GARZARY [facility] 07-11-2023 13:56-0400 Heart rate 67 /min ELLA EUGENIO [facility] 07-11-2023 13:56-0400 Respiratory rate 16 /min ELLA BECKER [facility] 07-11-2023 13:56-0400 Systolic blood pressure 135 mm[Hg] ELLA EUGENIO [facility] 06-18-2022 09:44-0400 Blood Pressure Location Deja Perez [facility] 06-18-2022 09:44-0400 Diastolic blood pressure 67 mm[Hg] Deja Jaegere [facility] 06-18-2022 09:44-0400 Heart rate 87 /min Deja Lue [facility] 06-18-2022 09:44-0400 Systolic blood pressure 137 mm[Hg] Deja Lue [facility] Encounters Encounter Date Encounter Type Care Provider Facility Start: 07-04-2024 ambulatory Deaj Perez Facility:[facility] Start: 10-13-2023 End: 10-13-2023 ambulatory NOELLEAB [facility] Start: 10-11-2023 End: 10-11-2023 ambulatory MARISOL BOYCE [facility] Start: 10-11-2023 End: 10-11-2023 ambulatory MARISOL BOYCE Not Available Start: 10-06-2023 [facility] Start: 10-05-2023 Evaluation and management of inpatient JOY RAGSDALE [facility] Start: 10-05-2023 Evaluation and management of inpatient AILEEN Tolbert [facility] Start: 10-04-2023 Evaluation and management of inpatient AILEEN LARKINNMRKPEPE [facility] Start: 10-03-2023 Evaluation and management of inpatient AILEEN LARKINNMRKPEPE [facility] Start: 09-30-2023 Evaluation and management of inpatient DOTTIE MAX [facility] Start: 09-30-2023 Evaluation and management of inpatient GUTIERREZ BRANDT [facility] Start: 09-30-2023 End: 10-07-2023 Evaluation and management of inpatient GEO MORALES [facility] Start: 08-09-2023 End: 08-09-2023 ambulatory MARISOL BOYCE Not Available Start: 07-11-2023 End: 07-12-2023 ambulatory ELLA BECKER Facility: [facility] Start: 07-11-2023 End: 07-11-2023 Patient encounter procedure ELLA BECKER [facility] Start: 07-06-2023 End: 07-06-2023 ambulatory ELLA BECKER [facility] Start: 06-07-2023 End: 06-07-2023 ambulatory MARISOL CARLI Not Available Start: 05-05-2023 Refill Marisol Carli [employer] Work Phone: [facility] Start: 05-04-2023 External Result Encounter Marisol Carli [employer]ATCH[employer] Work Phone: [facility] External Department Unsolicited Start: 05-04-2023 External Result Encounter Marisol Carli [employer]PATCH[employer] Work Phone: [facility] External [facility] Unsolicited Start: 05-04-2023 End: 05-04-2023 [facility] Start: 04-18-2023 End: 04-18-2023 ambulatory [facility] Start: 04-11-2023 End: 04-11-2023 ambulatory MARISOL ROSEANNEHHOLZ Not Available Start: 02-28-2023 ambulatory [facility] Start: 02-28-2023 End: 02-28-2023 ambulatory [facility] Start: 12-29-2022 End: 12-29-2022 ambulatory [facility] Start: 06-18-2022 End: 06-18-2022 Patient encounter procedure Deja Perez [facility] Eliel Start: 06-11-2022 End: 06-12-2022 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 MARISOL AICHHOLZ Facility: Start: 01-06-2022 End: 01-07-2022 ambulatory ELO MAHMOOD ROSEANNESanchezSINCERE Facility:[facility] Start: 01-05-2022 End: 01-06-2022 ambulatory ELO MAHMOOD CARLI Facility:[facility] Start: 10-14-2021 End: 10-15-2021 ambulatory DWAIN RAY Facility:[facility] Start: 06-18-2021 End: 06-18-2021 Patient encounter procedure Carlitos MAYA [facility]iel Procedures Date Procedure Procedure Detail Performing Clinician Start: 05-04-2023 Comprehensive metabo lic panel Marisol Boyce [employer]ATCH[employer] Work Phone: Start: 05-04-2023 Urnls dip stick/tabl et rgnt non-auto w/o micrscp Marisol Boyce [employer]PATCH[employer] Work Phone: Start: 02-26-2020 Iliofemoral vein anita nt (physical object) Carlitos MAYA Start: 08-03-2019 Injection of sacroil iac joint Carlitos MAYA Cataract (disorder) Carlitos R HANSEL Cholecystectomy Carlitos MAYA Placement of stent i n cardiac conduit Carlitos MAYA Prosthetic arthropla sty of shoulder Carlitos MAYA Plan of Treatment Date Care Activity Detail Author Start: 05-04-2024 Urine screening for protein Diabetes: Urine Protein Screening [facility] Start: 10-27-2023 Screening for malign ant neoplasm of colon [facility] Start: 08-02-2023 Hemoglobin A1c measurement Diabetes: Hemoglobin A1C [facility] Start: 06-12-2023 Urine screening for protein Diabetes: Urine Protein Screening [facility] Start: 06-07-2023 End: 06-07-2023 Patient encounter procedure 06/07/2023 10:30 AM EDT Office Visit [facility] [address] [place] [address] Marisol Boyce, CATALINA [address] [place] [id number] [facility] Start: 03-14-2023 Hemoglobin A1c measurement Diabetes: Hemoglobin A1C [facility] Start: 1955 Glaucoma screening Diabetes: R etinopathy Screening [facility] Start: 1945 Medicare Annual Well ness (AWV) Medicare Annual Wellness (AWV) [facility] Start: 1945 Screening for malign ant neoplasm of colon [facility] Immunizations Immunization Date Immunization Notes Care Provider [facility] 01-31-2023 influenza virus vacc ine, unspecified formulation ELLA BECKER [facility] 03-11-2022 SARS-CoV-2 (COVID-19 ) [id number] Deja Lue [facility] 02-12-2022 influenza virus vacc ine, unspecified formulation Deja Lue [facility] 08-06-2021 SARS-CoV-2 mRNA (qbjonidqabl-kcsv-tkoyot e) vaccine Deja Lue [facility] 02-02-2021 influenza virus vacc ine, unspecified formulation Deja Lue [facility] 01-05-2021 SARS-CoV-2 (COVID-19 ) mRNA BNT-162b2 vax Deja Lue [facility] 05-29-2020 SARS-CoV-2 (COVID-19 ) mRNA-1273 vaccine Carlitos RICE [facility] 05-21-2020 SARS-CoV-2 (COVID-19 ) mRNA BNT-162b2 vax Deja Lue [facility] Comment on above: Result Comment: 2022: [id number] 05-08-2020 SARS-CoV-2 (COVID-19 ) mRNA-1273 vaccine Carlitos RICE [facility] 05-01-2020 SARS-CoV-2 (COVID-19 ) mRNA BNT-162b2 vax Deja Lue [facility] Comment on above: Result Comment: 2022: [id number] 11-30-2019 influenza virus vacc ine, unspecified formulation Deja Lue [facility] 11-30-2019 pneumococcal conjuga te vaccine, 13 valent Deja Lue [facility] 11-27-2019 influenza virus vacc ine, unspecified formulation Carlitos RICE [facility] 12-29-2018 influenza virus vacc ine, unspecified formulation Deja Lue [facility] 01-28-2018 influenza virus vacc ine, unspecified formulation Deja Lue [facility] 02-11-2017 influenza virus vacc ine, unspecified formulation Deja Lue [facility] 01-17-2015 influenza virus vacc ine, unspecified formulation Deja Lue [facility] 12-10-2014 pneumococcal polysaccharide vaccine, 23 valent Deja Lue [facility] 03-12-2014 influenza virus vacc ine, unspecified formulation Deja Lue [facility] 03-12-2014 zoster vaccine, live Deja L ue [facility] 01-10-2013 influenza virus vacc ine, unspecified formulation Deja Luemmanuel [facility] Payers Date Payer Category Payer Medicare [id number] 1958 Medicare [id number] 1958 Unknown [id number] 1945 Unknown [id number] 2.16.84 [id number] 1945 Unknown [id number] 2.16.84 [id number] 1945 Unknown [id number] 2.16.84 [id number] 1945 Unknown [id number] 2.16.84 [id number] 1945 Unknown [id number] 2.16.84 0.1.273618.3.579.2.593 1945 Unknown [id number] 2.16.8 [id number] 1945 Unknown [id number] 2.16.8 [id number] 1945 Unknown [id number] 2.16.84 0.1.789157.3.579.2.1259 1945 Unknown [id number] 2.16.84 0.1.878419.3.579.2.1259 1945 Unknown [id number] 2.16.84 0.1.868588.3.579.2.1259 1945 Unknown [id number] 2.16.84 0.1.392506.3.579.2.1259 1945 Unknown [id number] 2.16.8 40.1.623675.3.579.2.1286 1945 Unknown [id number] 2.16.8 [id number] 1945 Unknown [id number] 2.16.8 [id number] Social History Date Type Detail Facility Start: 06-18-2021 End: 07-11-2023 Tobacco smoking status Ex-smoker (finding) [facility] Start: 04-11-2023 Sex Assigned At Male [facility] Tobacco smoking status Never [facility] History of tobacco use Current smoker [...] Facility 07-11-2023 Functional Status N/A [facility] 06-18-2022 Functional Status N/A [facility] Clinical Notes 06-18-2021 to 10-13-2023 Note Date & Type Note Facility 10-13-2023 Note [facility] Cardiology Clinic Note Chief Complaint: Patient here for follow up heart cath HPI: Kimmy Mcarthur is a 78 y.o. male With history of coronary artery disease, silent ischemia, recent cardiac catheterization and PCI of the right coronary artery here in routine follow-up Continues to do well; Just came back from an 18-day hunting trip. States that he seems to walk easier. No real change in symptoms as he had no significant symptoms prior to PCI. UPDATE 10/13/2023 Hospital Medicine Discharge Summary Final Discharge Diagnosis: Coronary artery disease of [place] artery of [place] heart with stable angina pectoris ([facility]) Admission Diagnosis: A-fib ([facility]) [I48.91] Hospital course: 78 yo M with history of multivessel CAD s/p RCA stent 2022, HFpEF, MVR, HTN, PAD, IDDM2 who presented to outside ED with chest pressure and was found to be in Afib with RVR with rates up to 150s. Troponin was elevated at 100. He was given Cardizem, which converted him to sinus, and he was transferred to [facility]. He was placed on ASA/Plavix as well as heparin infusion. He was also started on amiodarone infusion with eventual transition to oral. Echo showed EF 60%, and the patient did not exhibit signs of acute exacerbation of HF. He underwent coronary angiogram due to NSTEMI and was found to have severe triple vessel CAD. Cardiothoracic Surgery was consulted for evaluation of CABG. 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 It was decided to treat with anticoagulation, for which he would already qualify for considering atrial fibrillation, and undergo repeat MRI for reassessment of CABG viability [address]. Patient was discharged in stable condition on 10/07/23. Dear Dr. Carli MD, Kimmy is advised to follow up with you within 1-2 weeks. Follow-up with: Cardiology, CHF clinic, and CT Surgery Scheduled appointments: Future Appointments Date Time Provider Department Center 10/13/2023 11:00 AM Natasha Campo MD CARD [facility] 11/07/2023 7:30 AM [facility] MR 2 [facility] ORTH MR MPORTHO 11/08/2023 2:00 PM [facility]anco [facility] Your medication list START taking these medications Instructions Last Dose Given Next Dose Due amiodarone 200 mg tablet Commonly known as: Pacerone Take 1 tablet (200 mg) by mouth with breakfast for 97 doses. amLODIPine 5 mg tablet Commonly known as: Norvasc Take 1 tablet (5 mg) by mouth in the morning for 99 doses. apixaban 5 mg tablet Commonly known as: Eliquis Take 1 tablet (5 mg) by mouth in the morning and at bedtime for 196 doses. aspirin 81 mg chewable tablet Replaces: aspirin 81 mg EC tablet Chew 1 tablet (81 mg) in the morning for 93 doses. ezetimibe 10 mg tablet Commonly known as: Zetia Take 1 tablet (10 mg) by mouth at bedtime for 97 doses. lisinopril 20 mg tablet Take 1 tablet (20 mg) by mouth in the morning for 180 doses. melatonin 3 mg tablet Take 2 tablets (6 mg) by mouth if needed at bedtime for sleep. sennosides 8.6 mg tablet Commonly known as: Senokot Take 1 tablet (8.6 mg) by mouth in the morning and at bedtime for 196 doses. CHANGE how you take these medications Instructions Last Dose Given Next Dose Due carvedilol 3.125 mg tablet Commonly known as: Coreg What changed: ??? medication strength ??? how much to take Take 1 tablet (3.125 mg) by mouth with breakfast and with evening meal for 190 doses. Levemir FlexPen 100 unit/mL (3 mL) injection pen Generic drug: insulin detemir What changed: ??? how much to take ??? how to take this Inject 20 Units under the skin at bedtime. CONTINUE taking these medications Instructions Last Dose Given Next Dose Due atorvastatin 80 mg tablet Commonly known as: Lipitor Take 1 tablet (80 mg) by mouth at bedtime. Farxiga 10 mg Generic drug: dapagliflozin propanediol tamsulosin 0.4 mg 24 hr capsule Commonly known as: Flomax STOP taking these medications aspirin 81 mg EC tablet Replaced by: aspirin 81 mg chewable tablet clopidogrel 75 mg tablet Commonly known as: Plavix ferrous sulfate 325 (65 Fe) MG tablet metFORMIN 1,000 mg tablet Commonly known as: Glucophage ramipril 5 mg capsule Commonly known as: Altace Where to Get Your Medications These medications were sent to [facility], [address] [place] [address] ??? amiodarone 200 mg tablet ??? carvedilol 3.125 mg tablet ??? lisinopril 20 mg tablet These medications were sent to [facility] - [place], [place] - [address] [place] [address] [place] [address], [facility] [address] ??? amLODIPine 5 mg tablet ??? apixaban 5 mg tablet ??? aspirin 81 mg chewable tablet ??? ezetimibe 10 mg tablet ??? Levemir FlexPen (more content not included)... [facility] 10-07-2023 Note [facility] CARDIOLOGY INPAT IENT PROGRESS NOTE Reason for follow up: Afib RVR, NSTEMI s/p cardiac cath with severe 3 vessel CAD Subjective HPI: Kimmy Mcarthur is a 78 y.o. male with history of coronary artery disease, peripheral artery disease, history of balloon angioplasty of RCA stent here and February 2023 was referred from other facility the patient went there with chest discomfort found to have atrial fibrillation with rapid ventricular response heart rate was in the 150s, high-sensitivity troponin was elevated at 100, patient was given Cardizem and converted to sinus rhythm, he was referred here for further evaluation as the patient presented he was feeling well denied any chest discomfort denies shortness of breath lower extremity swelling PND's or orthopnea he noticed he gets short of breath sometimes but he has been doing well for the last few weeks. Underwent coronary angiogram on 10/03/[address] Twyla Polanco with findings of severe triple vessel CAD. Cardiothoracic surgery consulted. Interval: Patient resting in bed, is at bedside. Patient denies cp, sob, edema, dizziness or light headedness. Plan is for discharge today. Discussed initiation of eliquis for Afib and thrombus. Patient denies any history of bleeding. He reports dark stools at baseline due to ferrous sulfate supplement. Patient and express concerns with cost of Eliquis. Discharge planning working on patient assistance. Tele: 52-58 ALLERGIES No Known Allergies CURRENT MEDS amiodarone, 200 mg, oral, Daily with breakfast amLODIPine, 5 mg, oral, Daily apixaban, 5 mg, oral, BID aspirin, 81 mg, oral, Daily atorvastatin, 80 mg, oral, Nightly carvedilol, 3.125 mg, oral, BID with meals dapagliflozin propanediol, 10 mg, oral, Daily docusate sodium, 200 mg, oral, BID ezetimibe, 10 mg, oral, Nightly insulin glargine, 20 Units, subcutaneous, Nightly insulin lispro, 0-14 Units, subcutaneous, With meals & nightly lisinopril, 20 mg, oral, Daily sennosides, 1 tablet, oral, BID tamsulosin, 0.4 mg, oral, Daily PRN medications: acetaminophen, glucose OR dextrose 50 % in water (D50W), lactulose, melatonin, sennosides-docusate sodium Objective Patient Vitals for the past 24 hrs: BP Temp Temp src Pulse Resp SpO2 Weight 10/07/23 0710 132/51 36.8 ???C (98.2 ???F) Temporal 53 16 93 % -- 10/07/23 0423 -- -- -- -- -- -- 76.9 kg (169 lb 9.6 oz) 10/07/23 0400 135/55 36.8 ???C (98.2 ???F) Temporal 54 14 96 % -- 10/07/23 0000 141/51 36.7 ???C (98.1 ???F) Temporal 58 15 93 % -- 10/06/23 2000 97/59 36.6 ???C (97.9 ???F) Temporal 54 18 95 % -- 10/06/23 1725 139/61 -- -- 57 19 93 % -- 10/06/23 1600 139/58 -- -- 56 20 92 % -- 10/06/23 1205 149/54 -- -- 59 20 99 % -- 10/06/23 0810 153/60 36.7 ???C (98.1 ???F) Temporal 66 18 99 % -- BP 132/51 (BP Location: Left arm, Patient Position: Lying) Pulse 53 Temp 36.8 ???C (98.2 ???F) (Temporal) Resp 16 Ht 1.829 m (6' 0.01 ) Wt 76.9 kg (169 lb 9.6 oz) SpO2 93% BMI 23.00 kg/m??? Wt Readings from Last 3 Encounters: 10/07/23 76.9 kg (169 lb 9.6 oz) 04/18/23 73.9 kg (163 lb) 12/29/22 70.8 kg (156 lb) General: Awake, alert, appropriate mood/affect, NAD Eyes: anicteric sclera. Non-injected conjunctiva. Neck: No elevated JVP. No carotid bruit Pulm: Breath sounds clear to ascultation bilaterally with no wheeze, crackles or rhonchi Cards: regular rhythm with bradycardia, NL S1, S2. No S3 or S4 gallop. Murmur: none Abd: Soft, Nontender, physiologic bowel sounds are present Extr: Lower extremity edema: none. DP pulses present bilaterally Skin: warm, dry, well perfused Neuro: A&Ox3, No gross deficits Lab Results Component Value Date NA 140 10/07/2023 K 4.0 10/07/2023 CL 105 10/07/2023 ANIONGAP 12 10/07/2023 BUN 18 10/07/2023 CREATININE 0.92 10/07/2023 CALCIUM 8.9 10/07/2023 MG 1.7 (L) 10/06/2023 PHOS 4.3 09/30/2023 Lab Results Component Value Date BILITOT 0.6 09/30/2023 ALKPHOS 66 09/30/2023 AST 13 09/30/2023 ALT 11 09/30/2023 PROT 5.4 (L) 09/30/2023 ALBUMIN 3.5 09/30/2023 Lab Results Component Value Date CHOLESTEROL 157 10/03/2023 TRIGLYCERIDES 124 10/03/2023 HDL 50 10/03/2023 LDL CHOLESTEROL 52 02/27/2020 LDL CALC 82 10/03/2023 No results found for: BNP Lab Results Component Value Date TSH 6.07 (H) 10/03/2023 No results found for: DIGOXIN LVL Lab Results Component Value Date HGBA1C 8.5 (H) 10/03/2023 Lab Results Component Value Date WBC 6.47 10/07/2023 RBC 3.89 (L) 10/07/2023 HGB 11.7 (L) 10/07/2023 HCT 34.8 (L) 10/07/2023 MCV 89.5 10/07/2023 MCH 30.1 10/07/2023 MCHC 33.6 10/07/2023 RDW 13.4 10/07/2023 NEUTOPHILPCT 66.5 10/07/2023 LYMPHOPCT 19.8 (L) 10/07/2023 MONOPCT 9.4 10/07/2023 EOSPCT 3.2 10/07/2023 BASOPCT 0.6 10/07/2023 NEUTROABS 4.30 10/07/2023 LYMPHSABS 1.28 10/07/2023 MONOSABS 0.61 10/07/2023 EOSABS 0.21 10/07/2023 BASOSABS 0.04 10/07/2023 PLT 137 (L) (more content not included)... [facility] 10-07-2023 Note Hospital Medicine Discharge Summary Final Discharge Diagnosis: Coronary artery disease of [place] artery of [place] heart with stable angina pectoris ([facility]) Admission Diagnosis: A-fib ([facility]) [I48.91] Hospital course: 78yoM with history of multivessel CAD s/p RCA stent 2022, HFpEF, MVR, HTN, PAD, IDDM2 who presented to outside ED with chest pressure and was found to be in Afib with RVR with rates up to 150s. Troponin was elevated at 100. He was given Cardizem, which converted him to sinus, and he was transferred to [facility]. He was placed on ASA/Plavix as well as heparin infusion. He was also started on amiodarone infusion with eventual transition to oral. Echo showed EF 60%, and the patient did not exhibit signs of acute exacerbation of HF. He underwent coronary angiogram due to NSTEMI and was found to have severe triple vessel CAD. Cardiothoracic Surgery was consulted for evaluation of CABG. 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 It was decided to treat with anticoagulation, for which he would already qualify for considering atrial fibrillation, and undergo repeat MRI for reassessment of CABG viability [address]. Patient was discharged in stable condition on 10/07/23. Dear Dr. MD Boyce Timothy is advised to follow up with you within 1-2 weeks. Follow-up with: Cardiology, CHF clinic, and CT Surgery Scheduled appointments: Future Appointments Date Time Provider Department Center 10/13/2023 11:00 AM Natasha Campo MD [facility] 11/07/2023 7:30 AM [facility] MR 2 [facility] MR [facility] 11/08/2023 2:00 PM [facility] Your medication list START taking these medications Instructions Last Dose Given Next Dose Due amiodarone 200 mg tablet Commonly known as: Pacerone Take 1 tablet (200 mg) by mouth with breakfast for 97 doses. amLODIPine 5 mg tablet Commonly known as: Norvasc Take 1 tablet (5 mg) by mouth in the morning for 99 doses. apixaban 5 mg tablet Commonly known as: Eliquis Take 1 tablet (5 mg) by mouth in the morning and at bedtime for 196 doses. aspirin 81 mg chewable tablet Replaces: aspirin 81 mg EC tablet Chew 1 tablet (81 mg) in the morning for 93 doses. ezetimibe 10 mg tablet Commonly known as: Zetia Take 1 tablet (10 mg) by mouth at bedtime for 97 doses. lisinopril 20 mg tablet Take 1 tablet (20 mg) by mouth in the morning for 180 doses. melatonin 3 mg tablet Take 2 tablets (6 mg) by mouth if needed at bedtime for sleep. sennosides 8.6 mg tablet Commonly known as: Senokot Take 1 tablet (8.6 mg) by mouth in the morning and at bedtime for 196 doses. CHANGE how you take these medications Instructions Last Dose Given Next Dose Due carvedilol 3.125 mg tablet Commonly known as: Coreg What changed: medication strength how much to take Take 1 tablet (3.125 mg) by mouth with breakfast and with evening meal for 190 doses. Levemir FlexPen 100 unit/mL (3 mL) injection pen Generic drug: insulin detemir What changed: how much to take how to take this Inject 20 Units under the skin at bedtime. CONTINUE taking these medications Instructions Last Dose Given Next Dose Due atorvastatin 80 mg tablet Commonly known as: Lipitor Take 1 tablet (80 mg) by mouth at bedtime. Farxiga 10 mg Generic drug: dapagliflozin propanediol tamsulosin 0.4 mg 24 hr capsule Commonly known as: Flomax STOP taking these medications aspirin 81 mg EC tablet Replaced by: aspirin 81 mg chewable tablet clopidogrel 75 mg tablet Commonly known as: Plavix ferrous sulfate 325 (65 Fe) MG tablet metFORMIN 1,000 mg tablet Commonly known as: Glucophage ramipril 5 mg capsule Commonly known as: Altace Where to Get Your Medications These medications were sent to [facility] - [place], [place] - [address] [facility] [address] [facility] [id number] amiodarone 200 mg tablet carvedilol 3.125 mg tablet lisinopril 20 mg tablet These medications were sent to [facility] - [place], [place] - [address] [place] [address] [place] [address] [facility] [address] amLODIPine 5 mg tablet apixaban 5 mg tablet aspirin 81 mg chewable tablet ezetimibe 10 mg tablet Levemir FlexPen 100 unit/mL (3 mL) injection pen melatonin 3 mg tablet sennosides 8.6 mg tablet Kimmy has No Known Allergies. Disposition: Home or Self Care () Discharge Condition: Stable Code Status: Full Code Diagnostic Results Hematology: Results from last 7 days Lab Units 10/07/2341210/06/23 0411 WBC AUTO 10*3/uL 6.47 5.18 HEMOGLOBIN g/dL 11.7* 11.5* HEMATOCRIT % 34.8* 34.9* MCV fL 89.5 89.9 PLATELETS AUTO 10*3/uL 137* 128* Chemistry: Results from last 7 days Lab Units 10/07/23 0413 10/06/23 0411 10/05/23 0406 0 (more content not included)... [facility] 10-06-2023 Note Subjective Sitting up in chair without complaints. Denies chest pain. No shortness of breath. States that he is feeling well. No new or worsening symptoms. Objective Patient Vitals for the past 24 hrs: BP Temp Temp src Pulse Resp SpO2 Weight 10/06/23 0810 153/60 36.7 ???C (98.1 ???F) Temporal 66 18 99 % -- 10/06/23 0547 -- -- -- -- -- -- 78.6 kg (173 lb 3.2 oz) 10/06/23 0400 135/55 36.6 ???C (97.9 ???F) Temporal 55 16 96 % -- 10/06/23 0000 133/67 36.7 ???C (98.1 ???F) Temporal 54 19 95 % -- 10/05/23 2000 151/65 36.6 ???C (97.9 ???F) Temporal 57 21 96 % -- 10/05/23 1600 148/60 36.5 ???C (97.7 ???F) Temporal 52 11 97 % -- Physical Exam Constitutional: Appearance: Normal appearance. HENT: Head: Normocephalic. Eyes: Extraocular Movements: Extraocular movements intact. Cardiovascular: Rate and Rhythm: Normal rate and regular rhythm. Pulses: Normal pulses. Pulmonary: Effort: Pulmonary effort is normal. No respiratory distress. Breath sounds: No wheezing or rales. Abdominal: General: There is no distension. Palpations: Abdomen is soft. Musculoskeletal: General: No swelling or tenderness. Normal range of motion. Cervical back: Normal range of motion. Skin: General: Skin is warm and dry. Capillary Refill: Capillary refill takes less than 2 seconds. Coloration: Skin is not jaundiced or pale. Neurological: Mental Status: He is alert and oriented to person, place, and time. Psychiatric: Mood and Affect: Mood normal. Behavior: Behavior normal. Lab Results Component Value Date NA 137 10/06/2023 K 4.4 10/06/2023 CL 104 10/06/2023 ANIONGAP 11 10/06/2023 BUN 20 10/06/2023 CREATININE 0.91 10/06/2023 CALCIUM 8.9 10/06/2023 MG 2.0 09/30/2023 PHOS 4.3 09/30/2023 Lab Results Component Value Date BILITOT 0.6 09/30/2023 ALKPHOS 66 09/30/2023 AST 13 09/30/2023 ALT 11 09/30/2023 PROT 5.4 (L) 09/30/2023 ALBUMIN 3.5 09/30/2023 Lab Results Component Value Date WBC 5.18 10/06/2023 RBC 3.88 (L) 10/06/2023 HGB 11.5 (L) 10/06/2023 HCT 34.9 (L) 10/06/2023 MCV 89.9 10/06/2023 MCH 29.6 10/06/2023 MCHC 33.0 10/06/2023 RDW 13.3 10/06/2023 NEUTOPHILPCT 58.3 10/06/2023 LYMPHOPCT 26.6 10/06/2023 MONOPCT 8.7 10/06/2023 EOSPCT 5.0 10/06/2023 BASOPCT 0.8 10/06/2023 NEUTROABS 3.02 10/06/2023 LYMPHSABS 1.38 10/06/2023 MONOSABS 0.45 10/06/2023 EOSABS 0.26 10/06/2023 BASOSABS 0.04 10/06/2023 PLT 128 (L) 10/06/2023 NRBC 0.0 10/06/2023 XR chest 1 view Result Date: 10/06/2023 No radiographically evident acute process. Approved by:Robinson Evans10/06/2023 12:33 AM. I, Maite Franklin,have reviewed the image(s) and agree with the findings in this report. Electronically signed: Maite Franklin. MR cardiac morphology and function w and wo IV contrast Result Date: 10/06/2023 Impression: 1. Mildly diminished left jugular systolic function. There is akinesis of the basal inferior lateral wall. 2. Transmural infarct of the basal inferolateral wall with focal outpouching and pseudoaneurysm formation. There is a small nonenhancing adherent thrombus of the left ventricular pseudoaneurysm. No left ventricular apical aneurysm identified. 3. Small bilateral pleural effusions. Electronically signed: Sabino Chapman. No CT results found for the past 24 hours Encounter Date: 09/30/23 ECG 12 lead Result Value Ventricular Rate 60 Atrial Rate 59 DE Interval 138 QRS DURATION 116 QT Interval 452 QTC CALCULATION(BAZETT) 452 P [place] 72 R-[place] 62 T Wave [place] -14 Impression Sinus bradycardia with Premature atrial complexes Possible Inferior infarct (cited on or before 07-JAN-2005) Abnormal ECG When compared with ECG of 30-SEP-2023 18:16, (unconfirmed) Premature atrial complexes are now Present Confirmed by Wan MATHIS, CECILIA Garcia ([id number]) on 10/01/2023 12:21:12 PM Nutrition Screen Assessment/Plan Principal Problem: Coronary artery disease of [place] artery of [place]mi[place] heart with stable angina pectoris (CMS/HCC) Active Problems: Nonrheumatic mitral valve regurgitation Primary hypertension Peripheral arterial occlusive disease (CMS/HCC) Tobacco dependence syndrome COPD, moderate (CMS/HCC) Type 2 diabetes mellitus without complication, with long-term current use of insulin (CMS/HCC) A-fib (CMS/HCC) Other specified hypothyroidism NSTEMI (non-ST elevated myocardial infarction) (CMS/HCC) Plan: -Cardiac MRI completed. There is a transmural infarct of the basal inferolateral wall with focal outpouching and pseudoaneurysm formation. There is a small nonenhancing adherent thrombus of the left ventricular pseudoaneurysm. We recommend full anticoagulation for 4 weeks, then repeat MRI and follow up with CT Surgery. -Plan of care discussed with the patient and his . Time allowed for questions and concerns. Okay to discharge from CT Surger standpoint. We will schedule the follow-up MRI and appointment with CT Surgery for 1 (more content not included)... [facility] 10-06-2023 Note [facility] CARDIOLOGY INPAT IENT PROGRESS NOTE Reason for follow up: Afib RVR, NSTEMI s/p cardiac cath with severe 3 vessel CAD Subjective HPI: Kimmy Mcarthur is a 78 y.o. male with history of coronary artery disease, peripheral artery disease, history of balloon angioplasty of RCA stent here and February 2023 was referred from other facility the patient went there with chest discomfort found to have atrial fibrillation with rapid ventricular response heart rate was in the 150s, high-sensitivity troponin was elevated at 100, patient was given Cardizem and converted to sinus rhythm, he was referred here for further evaluation as the patient presented he was feeling well denied any chest discomfort denies shortness of breath lower extremity swelling PND's or orthopnea he noticed he gets short of breath sometimes but he has been doing well for the last few weeks. Underwent coronary angiogram on 10/03/[address] Twyla Polanco with findings of severe triple vessel CAD. Cardiothoracic surgery consulted. Interval: Patient down for testing this morning. Examined at bedside this afternoon. He denies sob, cp, dizziness or light headedness. Denies edema or bleeding. Tele: [phone] ALLERGIES No Known Allergies CURRENT MEDS amiodarone, 200 mg, oral, Daily with breakfast aspirin, 81 mg, oral, Daily atorvastatin, 80 mg, oral, Nightly carvedilol, 3.125 mg, oral, BID with meals docusate sodium, 200 mg, oral, BID ezetimibe, 10 mg, oral, Nightly insulin lispro, 0-14 Units, subcutaneous, With meals & nightly lisinopril, 20 mg, oral, Daily sennosides, 1 tablet, oral, BID tamsulosin, 0.4 mg, oral, Daily heparin, 0-28 Units/kg/hr, Last Rate: 19 Units/kg/hr (10/05/232037) PRN medications: acetaminophen, glucose OR dextrose 50 % in water (D50W), lactulose, melatonin, sennosides-docusate sodium Objective Patient Vitals for the past 24 hrs: BP Temp Temp src Pulse Resp SpO2 Weight 10/06/23 0547 -- -- -- -- -- -- 78.6 kg (173 lb 3.2 oz) 10/06/23 0400 135/55 36.6 ???C (97.9 ???F) Temporal 55 16 96 % -- 10/06/23 0000 133/67 36.7 ???C (98.1 ???F) Temporal 54 19 95 % -- 10/05/23 2000 151/65 36.6 ???C (97.9 ???F) Temporal 57 21 96 % -- 10/05/23 1600 148/60 36.5 ???C (97.7 ???F) Temporal 52 11 97 % -- 10/05/23 1200 (!) 134/47 -- -- 52 16 100 % -- BP 135/55 (BP Location: Left arm, Patient Position: Lying) Pulse 55 Temp 36.6 ???C (97.9 ???F) (Temporal) Resp 16 Ht 1.829 m (6' 0.01 ) Wt 78.6 kg (173 lb 3.2 oz) SpO2 96% BMI 23.48 kg/m??? Wt Readings from Last 3 Encounters: 10/06/23 78.6 kg (173 lb 3.2 oz) 04/18/23 73.9 kg (163 lb) 12/29/22 70.8 kg (156 lb) General: Awake, alert, appropriate mood/affect, NAD Eyes: anicteric sclera. Non-injected conjunctiva. Neck: No elevated JVP. No carotid bruit Pulm: Breath sounds clear to ascultation bilaterally with no wheeze, crackles or rhonchi Cards: regular rhythm with bradycardia, NL S1, S2. No S3 or S4 gallop. Murmur: none Abd: Soft, Nontender, physiologic bowel sounds are present Extr: Lower extremity edema: none. DP pulses present bilaterally Skin: warm, dry, well perfused Neuro: A&Ox3, No gross deficits Lab Results Component Value Date NA 137 10/06/2023 K 4.4 10/06/2023 CL 104 10/06/2023 ANIONGAP 11 10/06/2023 BUN 20 10/06/2023 CREATININE 0.91 10/06/2023 CALCIUM 8.9 10/06/2023 MG 2.0 09/30/2023 PHOS 4.3 09/30/2023 Lab Results Component Value Date BILITOT 0.6 09/30/2023 ALKPHOS 66 09/30/2023 AST 13 09/30/2023 ALT 11 09/30/2023 PROT 5.4 (L) 09/30/2023 ALBUMIN 3.5 09/30/2023 Lab Results Component Value Date CHOLESTEROL 157 10/03/2023 TRIGLYCERIDES 124 10/03/2023 HDL 50 10/03/2023 LDL CHOLESTEROL 52 02/27/2020 LDL CALC 82 10/03/2023 No results found for: BNP Lab Results Component Value Date TSH 6.07 (H) 10/03/2023 No results found for: DIGOXIN LVL Lab Results Component Value Date HGBA1C 8.5 (H) 10/03/2023 Lab Results Component Value Date WBC 5.18 10/06/2023 RBC 3.88 (L) 10/06/2023 HGB 11.5 (L) 10/06/2023 HCT 34.9 (L) 10/06/2023 MCV 89.9 10/06/2023 MCH 29.6 10/06/2023 MCHC 33.0 10/06/2023 RDW 13.3 10/06/2023 NEUTOPHILPCT 58.3 10/06/2023 LYMPHOPCT 26.6 10/06/2023 MONOPCT 8.7 10/06/2023 EOSPCT 5.0 10/06/2023 BASOPCT 0.8 10/06/2023 NEUTROABS 3.02 10/06/2023 LYMPHSABS 1.38 10/06/2023 MONOSABS 0.45 10/06/2023 EOSABS 0.26 10/06/2023 BASOSABS 0.04 10/06/2023 PLT 128 (L) 10/06/2023 NRBC 0.0 10/06/2023 XR chest 1 view Result Date: 10/06/2023 No radiographically evident acute process. Approved by:Robinson Evans10/06/2023 12:33 AM. I, Maite Franklin,have reviewed the image(s) and agree with the findings in this report. Electronically signed: Maite Franklin. CTA chest with IV contrast 10/04/23: IMPRESSION: *Pseudoaneurysm arising from the inferior left ventricular wall measuring approximately 3.7 x 2.3 x 3.8 cm, which contains wall calcifications and mural (more content not included)... [facility] 10-06-2023 Note Hospital Medicine Daily Progress Note - 10/06/2023 7:16 AM; Room: [address] [place] [address] Admission: 09/30/2023 2:57 PM; Length of stay: 6 days THE HOSPITALIST TEAM PREFERS TO USE [employer] FOR COMMUNICATION 7AM-7PM. IF I DO NOT RESPOND WITHIN 15 MINUTES, PLEASE PAGE ME/CALL THROUGH THE MEDICAL RECORD CONSULTANT. FROM 7PM-7AM, PLEASE PAGE [phone](COVR) Code Status: Full Code Barriers to Discharge: tentative CABG for multivessel coronary disease; cardiac MRI Expected Discharge Date: TBD Discharge Destination: TBD Overview Patient is seen for evaluation and management of atrial fibrillation with rapid ventricular response. Multivessel disease found on angiography; now CTS following for CABG planning. Subjective Patient was seen and evaluated at bedside. Doing well post-MRI. No acute complaints. Slept better overnight. Denies chest pain, SOB, palpitations, edema Physical Exam Visit Vitals BP 135/55 (BP Location: Left arm, Patient Position: Lying) Pulse 55 Temp 36.6 ???C (97.9 ???F) (Temporal) Resp 16 Intake/Output Summary (Last 24 hours) at 10/06/2023 0716 Last data filed at 10/06/2023 0500 Gross per 24 hour Intake 1620 ml Output -- Net 1620 ml Estimated body mass index is 23.48 kg/m??? as calculated from the following: Height as of this encounter: 1.829 m (6' 0.01 ). Weight as of this encounter: 78.6 kg (173 lb 3.2 oz). GENERAL: The patient is well developed and nontoxic. Sittng in bed. No apparent distress. VITAL SIGNS: Reviewed in the EMR. HEENT: Nonicteric sclerae, EOMI. Oropharynx clear. Moist mucous membranes. Conjunctivae appear well perfused. HEART: Bradycardic with normal rhythm without murmurs LUNGS: Clear to auscultation bilaterally. No wheezing and crackles. ABDOMEN: Soft, positive bowel sounds, nontender, no organomegaly. SKIN: No rash, no excessive bruising, petechiae, or purpura. NEUROLOGIC: Cranial nerves II-XII intact without motor/sensory deficit. MSK: No lower extremity edema Active Inpatient Problems Principal Problem: Coronary artery disease of [place] artery of [place] heart with stable angina pectoris ([facility]) Active Problems: Nonrheumatic mitral valve regurgitation Primary hypertension Peripheral arterial occlusive disease ([facility]) Tobacco dependence syndrome COPD, moderate ([facility]) Type 2 diabetes mellitus without complication, with long-term current use of insulin ([facility]) A-fib ([facility]) Other specified hypothyroidism NSTEMI (non-ST elevated myocardial infarction) (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 Pursuing cardiac MRI for eval of pseudoaneurysm; HARMONY not an option. Hopefully will be obtaining MRI soon so that pt may proceed with CABG which is tentative for Tuesday vs Tuesday -Continue ASA, hold Plavix -Continue Coreg 3.125 BID, lisinopril 20 every day, and statin. Initiative amlodipine 5 qd -Continue telemetry -MRI 10/05 exhibiting basal inferolateral LV pseudoaneurysm with adherent mural thrombus. Will have follow up cardiac MRI in 4 weeks while patient is on anticoagulation Paroxysmal Afib Asymptomatic bradycardia -Converted to sinus -On PO amiodarone 200 qd -Transition to PO AC with Eliquis 5 BID to be given at time of heparin dc Hyperlipidemia -Zetia added Type 2 DM, uncontrolled -A1c 8.5 on 10/03/23 -Will resume home Farxiga -Sugars suboptimally controlled with SSI (upper 100s lower 200s) with about 20 U daily. Will start with glargine 20 U tonight to see response. Likely discharge on home 35 U Bilateral hilar lymph nodes -Found on CTA chest on 10/03 -Repeat recommended 3 months Tobacco use disorder Emphysema Scheduled Meds amiodarone, 200 mg, oral, Daily with breakfast aspirin, 81 mg, oral, Daily atorvastatin, 80 mg, oral, Nightly carvedilol, 3.125 mg, oral, BID with meals docusate sodium, 200 mg, oral, BID ezetimibe, 10 mg, oral, Nightly insulin lispro, 0-14 Units, subcutaneous, With meals & nightly lisinopril, 20 mg, oral, Daily sennosides, 1 tablet, oral, BID tamsulosin, 0.4 mg, oral, Daily heparin, 0-28 Units/kg/hr, Last Rate: 19 Units/kg/hr (10/05/232037) Pertinent Investigations Hematology: Results from last 7 days Lab Units 10/06/23 0411 10/05/23 0406 WBC AUTO 10*3/uL 5.18 4.75 HEMOGLOBIN g/dL 11.5* 11.6* HEMATOCRIT % 34.9* 35.3* MCV fL 89.9 91.0 PLATELETS AUTO 10*3/uL 128* 132* Chemistry: Results from last 7 days Lab Units 10/06/23 0411 10/05/23 0406 10/04/23 0455 10/01/23 0548 09/30/23 2356 SODIUM mmol/L 137 137 136 < > 137 POTASSIUM mmol/L 4.4 4.1 4.2 < > 4.3 CHLORIDE mmol/L 104 104 104 (more content not included)... [facility] 10-05-2023 Note [facility] CARDIOLOGY INPAT IENT PROGRESS NOTE Reason for follow up: Afib RVR, NSTEMI s/p cardiac cath with severe 3 vessel CAD Subjective HPI: Kimmy Mcarthur is a 78 y.o. male with history of coronary artery disease, peripheral artery disease, history of balloon angioplasty of RCA stent here and February 2023 was referred from other facility the patient went there with chest discomfort found to have atrial fibrillation with rapid ventricular response heart rate was in the 150s, high-sensitivity troponin was elevated at 100, patient was given Cardizem and converted to sinus rhythm, he was referred here for further evaluation as the patient presented he was feeling well denied any chest discomfort denies shortness of breath lower extremity swelling PND's or orthopnea he noticed he gets short of breath sometimes but he has been doing well for the last few weeks. Underwent coronary angiogram on 10/03/[address] Twyla Polanco with findings of severe triple vessel CAD. Cardiothoracic surgery consulted. Interval: Patient sitting up in bed and eating breakfast. Denies any chest pain, shortness of breath, dizziness or light headedness. Family at bedside. Tele: [phone] ALLERGIES No Known Allergies CURRENT MEDS amiodarone, 200 mg, oral, Daily with breakfast aspirin, 81 mg, oral, Daily atorvastatin, 80 mg, oral, Nightly carvedilol, 3.125 mg, oral, BID with meals ezetimibe, 10 mg, oral, Nightly insulin lispro, 0-13 Units, subcutaneous, With meals & nightly lisinopril, 20 mg, oral, Daily tamsulosin, 0.4 mg, oral, Daily heparin, 0-28 Units/kg/hr, Last Rate: 19 Units/kg/hr (10/05/23 0555) PRN medications: acetaminophen, glucose OR dextrose 50 % in water (D50W), lactulose, melatonin, sennosides-docusate sodium Objective Patient Vitals for the past 24 hrs: BP Temp Temp src Pulse Resp SpO2 Weight 10/05/23 0800 145/58 36.7 ???C (98.1 ???F) Temporal 50 17 94 % -- 10/05/23 0502 -- -- -- -- -- -- 78.5 kg (173 lb) 10/05/23 0400 131/57 36.8 ???C (98.2 ???F) Temporal (!) 46 15 95 % -- 10/04/232009 134/50 36.7 ???C (98.1 ???F) Temporal 56 21 96 % -- 10/04/23 1641 124/84 -- -- 53 15 96 % -- 10/04/23 1240 (!) 144/46 -- -- 55 20 98 % -- BP 145/58 (BP Location: Left arm, Patient Position: Lying) Pulse 50 Temp 36.7 ???C (98.1 ???F) (Temporal) Resp 17 Ht 1.829 m (6' 0.01 ) Wt 78.5 kg (173 lb) SpO2 94% BMI 23.46 kg/m??? Wt Readings from Last 3 Encounters: 10/05/23 78.5 kg (173 lb) 04/18/23 73.9 kg (163 lb) 12/29/22 70.8 kg (156 lb) General: Awake, alert, appropriate mood/affect, NAD Eyes: anicteric sclera. Non-injected conjunctiva. Neck: No elevated JVP. No carotid bruit Pulm: Breath sounds clear to ascultation bilaterally with no wheeze, crackles or rhonchi Cards: regular rhythm with bradycardia, NL S1, S2. No S3 or S4 gallop. Murmur: present Abd: Soft, Nontender, physiologic bowel sounds are present Extr: Lower extremity edema: none. DP pulses present bilaterally Skin: warm, dry, well perfused Right radial cardiac cath site: dressing removed, site is soft, clean, dry, no hematoma or eccymosis. Radial pulse +2, applied bandage over site. Neuro: A&Ox3, No gross deficits Lab Results Component Value Date NA 137 10/05/2023 K 4.1 10/05/2023 CL 104 10/05/2023 ANIONGAP 10 10/05/2023 BUN 17 10/05/2023 CREATININE 0.92 10/05/2023 CALCIUM 8.5 (L) 10/05/2023 MG 2.0 09/30/2023 PHOS 4.3 09/30/2023 Lab Results Component Value Date BILITOT 0.6 09/30/2023 ALKPHOS 66 09/30/2023 AST 13 09/30/2023 ALT 11 09/30/2023 PROT 5.4 (L) 09/30/2023 ALBUMIN 3.5 09/30/2023 Lab Results Component Value Date CHOLESTEROL 157 10/03/2023 TRIGLYCERIDES 124 10/03/2023 HDL 50 10/03/2023 LDL CHOLESTEROL 52 02/27/2020 LDL CALC 82 10/03/2023 No results found for: BNP Lab Results Component Value Date TSH 6.07 (H) 10/03/2023 No results found for: DIGOXIN LVL Lab Results Component Value Date HGBA1C 8.5 (H) 10/03/2023 Lab Results Component Value Date WBC 4.75 10/05/2023 RBC 3.88 (L) 10/05/2023 HGB 11.6 (L) 10/05/2023 HCT 35.3 (L) 10/05/2023 MCV 91.0 10/05/2023 MCH 29.9 10/05/2023 MCHC 32.9 10/05/2023 RDW 13.4 10/05/2023 NEUTOPHILPCT 57.1 10/05/2023 LYMPHOPCT 27.4 10/05/2023 MONOPCT 8.6 10/05/2023 EOSPCT 5.7 10/05/2023 BASOPCT 0.6 10/05/2023 NEUTROABS 2.71 10/05/2023 LYMPHSABS 1.30 10/05/2023 MONOSABS 0.41 10/05/2023 EOSABS 0.27 10/05/2023 BASOSABS 0.03 10/05/2023 PLT 132 (L) 10/05/2023 NRBC 0.0 10/05/2023 No X-ray results found for the past 24 hours CTA chest with IV contrast 10/04/23: IMPRESSION: *Pseudoaneurysm arising from the inferior left ventricular wall measuring approximately 3.7 x 2.3 x 3.8 cm, which contains wall calcifications and mural thrombus. *Diffuse atherosclerotic disease throughout the thoracic aorta and in the great vessels with ulcerated plaque in the proximal aspect of the left subclavian artery. No t (more content not included)... [facility] 10-05-2023 Note Subjective Sitting up in chair without complaints. Denies chest pain. No exertional dyspnea while ambulating in room. Denies dizziness lightheadedness. Remains in normal sinus rhythm with heart rate 74. Blood pressure remains stable. Objective Patient Vitals for the past 24 hrs: BP Temp Temp src Pulse Resp SpO2 Weight 10/05/23 1200 (!) 134/47 -- -- 52 16 100 % -- 10/05/23 0800 145/58 36.7 ???C (98.1 ???F) Temporal 50 17 94 % -- 10/05/23 0502 -- -- -- -- -- -- 78.5 kg (173 lb) 10/05/23 0400 131/57 36.8 ???C (98.2 ???F) Temporal (!) 46 15 95 % -- 10/04/232009 134/50 36.7 ???C (98.1 ???F) Temporal 56 21 96 % -- 10/04/23 1641 124/84 -- -- 53 15 96 % -- Physical Exam Constitutional: Appearance: Normal appearance. HENT: Head: Normocephalic. Mouth/Throat: Mouth: Mucous membranes are moist. Eyes: Pupils: Pupils are equal, round, and reactive to light. Cardiovascular: Rate and Rhythm: Normal rate and regular rhythm. Pulmonary: Effort: Pulmonary effort is normal. No respiratory distress. Breath sounds: No wheezing or rales. Abdominal: General: There is no distension. Palpations: Abdomen is soft. Musculoskeletal: General: No swelling or tenderness. Normal range of motion. Cervical back: Normal range of motion. Skin: General: Skin is warm and dry. Capillary Refill: Capillary refill takes less than 2 seconds. Coloration: Skin is not jaundiced or pale. Neurological: General: No focal deficit present. Mental Status: He is alert and oriented to person, place, and time. Psychiatric: Mood and Affect: Mood normal. Behavior: Behavior normal. Lab Results Component Value Date NA 137 10/05/2023 K 4.1 10/05/2023 CL 104 10/05/2023 ANIONGAP 10 10/05/2023 BUN 17 10/05/2023 CREATININE 0.92 10/05/2023 CALCIUM 8.5 (L) 10/05/2023 MG 2.0 09/30/2023 PHOS 4.3 09/30/2023 Lab Results Component Value Date BILITOT 0.6 09/30/2023 ALKPHOS 66 09/30/2023 AST 13 09/30/2023 ALT 11 09/30/2023 PROT 5.4 (L) 09/30/2023 ALBUMIN 3.5 09/30/2023 Lab Results Component Value Date WBC 4.75 10/05/2023 RBC 3.88 (L) 10/05/2023 HGB 11.6 (L) 10/05/2023 HCT 35.3 (L) 10/05/2023 MCV 91.0 10/05/2023 MCH 29.9 10/05/2023 MCHC 32.9 10/05/2023 RDW 13.4 10/05/2023 NEUTOPHILPCT 57.1 10/05/2023 LYMPHOPCT 27.4 10/05/2023 MONOPCT 8.6 10/05/2023 EOSPCT 5.7 10/05/2023 BASOPCT 0.6 10/05/2023 NEUTROABS 2.71 10/05/2023 LYMPHSABS 1.30 10/05/2023 MONOSABS 0.41 10/05/2023 EOSABS 0.27 10/05/2023 BASOSABS 0.03 10/05/2023 PLT 132 (L) 10/05/2023 NRBC 0.0 10/05/2023 No X-ray results found for the past 24 hoursNo MRI results found for the past [address] results found for the past 24 hours Encounter Date: 09/30/23 ECG 12 lead Result Value Ventricular Rate 60 Atrial Rate 59 DE Interval 138 QRS DURATION 116 QT Interval 452 QTC CALCULATION(BAZETT) 452 P [place] 72 R-[place] 62 T Wave [place] -14 Impression Sinus bradycardia with Premature atrial complexes Possible Inferior infarct (cited on or before 07-JAN-2005) Abnormal ECG When compared with ECG of 30-SEP-2023 18:16, (unconfirmed) Premature atrial complexes are now Present Confirmed by Wan MATHIS, CECILIA Garcia ([id number]) on 10/01/2023 12:21:12 PM Nutrition Screen Assessment/Plan Principal Problem: Coronary artery disease of [place] artery of [place] heart with stable angina pectoris (CMS/HCC) Active Problems: Nonrheumatic mitral valve regurgitation Primary hypertension Peripheral arterial occlusive disease (CMS/HCC) Tobacco dependence syndrome COPD, moderate (CMS/HCC) Type 2 diabetes mellitus without complication, with long-term current use of insulin (CMS/HCC) A-fib (CMS/HCC) Other specified hypothyroidism NSTEMI (non-ST elevated myocardial infarction) (CMS/HCC) Plan: - Cardiac MRI pending. This will likely be done in the morning, as the MRI department cannot accommodate this patient on the schedule today - Continue current medications. Medical management per primary and cardiology teams - Surgical plans will be based on findings on cardiac MRI. Patient to remain off Plavix. [facility] 10-05-2023 Note Hospital Medicine Daily Progress Note - 10/05/2023 9:23 AM; Room: [address] [place] [address] Admission: 09/30/2023 2:57 PM; Length of stay: 5 days THE HOSPITALIST TEAM PREFERS TO USE [employer] FOR COMMUNICATION 7AM-7PM. IF I DO NOT RESPOND WITHIN 15 MINUTES, PLEASE PAGE ME/CALL THROUGH THE MEDICAL RECORD CONSULTANT. FROM 7PM-7AM, PLEASE PAGE [phone](COVR) Code Status: Full Code Barriers to Discharge: tentative CABG for multivessel coronary disease Expected Discharge Date: TBD Discharge Destination: TBD Overview Patient is seen for evaluation and management of atrial fibrillation with rapid ventricular response. Multivessel disease found on angiography; now CTS following for CABG planning. Subjective Patient was seen and evaluated at bedside. No new concerns. Doing well but not liking being woken up and poked often. CTS pushing for cMRI which will determine viability of CABG in setting of pseudoaneurysm. Pt and frustrated with delay of MRI. Physical Exam Visit Vitals BP 145/58 (BP Location: Left arm, Patient Position: Lying) Pulse 50 Temp 36.7 ???C (98.1 ???F) (Temporal) Resp 17 Intake/Output Summary (Last 24 hours) at 10/05/2023 0923 Last data filed at 10/04/2023 1800 Gross per 24 hour Intake 490 ml Output -- Net 490 ml Estimated body mass index is 23.46 kg/m??? as calculated from the following: Height as of this encounter: 1.829 m (6' 0.01 ). Weight as of this encounter: 78.5 kg (173 lb). GENERAL: The patient is well developed and nontoxic. Sittng in bed. No apparent distress. VITAL SIGNS: Reviewed in the EMR. HEENT: Nonicteric sclerae, EOMI. Oropharynx clear. Moist mucous membranes. Conjunctivae appear well perfused. HEART: Bradycardic with normal rhythm without murmurs LUNGS: Clear to auscultation bilaterally. No wheezing and crackles. ABDOMEN: Soft, positive bowel sounds, nontender, no organomegaly. SKIN: No rash, no excessive bruising, petechiae, or purpura. NEUROLOGIC: Cranial nerves II-XII intact without motor/sensory deficit. MSK: No lower extremity edema Active Inpatient Problems Principal Problem: Coronary artery disease of [place] artery of [place] heart with stable angina pectoris ([facility]) Active Problems: Nonrheumatic mitral valve regurgitation Primary hypertension Peripheral arterial occlusive disease ([facility]) Tobacco dependence syndrome COPD, moderate ([facility]) Type 2 diabetes mellitus without complication, with long-term current use of insulin ([facility]) A-fib ([facility]) Other specified hypothyroidism NSTEMI (non-ST elevated myocardial infarction) (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 Pursuing cardiac MRI for eval of pseudoaneurysm; HARMONY not an option. Hopefully will be obtaining MRI soon so that pt may proceed with CABG which is tentative for Tuesday vs Tuesday -Continue ASA, hold Plavix -Continue Coreg 3.125 BID, lisinopril 20 every day, and statin -Continue telemetry Paroxysmal Afib Asymptomatic bradycardia -Converted to sinus -On PO amiodarone 200 qd -Continue heparin infusion Hyperlipidemia -Zetia added Type 2 DM, uncontrolled -A1c 8.5 on 10/03/23 -Continue SSI Bilateral hilar lymph nodes -Found on CTA chest on 10/03 -Repeat recommended 3 months Tobacco use disorder Emphysema Scheduled Meds amiodarone, 200 mg, oral, Daily with breakfast aspirin, 81 mg, oral, Daily atorvastatin, 80 mg, oral, Nightly carvedilol, 3.125 mg, oral, BID with meals ezetimibe, 10 mg, oral, Nightly insulin lispro, 0-13 Units, subcutaneous, With meals & nightly iohexol, 130 mL, intravenous, Once in imaging lisinopril, 20 mg, oral, Daily tamsulosin, 0.4 mg, oral, Daily heparin, 0-28 Units/kg/hr, Last Rate: 19 Units/kg/hr (10/05/23 0555) Pertinent Investigations Hematology: Results from last 7 days Lab Units 10/05/23 0406 10/04/23 0455 WBC AUTO 10*3/uL 4.75 4.88 HEMOGLOBIN g/dL 11.6* 12.3* HEMATOCRIT % 35.3* 36.9* MCV fL 91.0 88.7 PLATELETS AUTO 10*3/uL 132* 136* Chemistry: Results from last 7 days Lab Units 10/05/23 0406 10/04/23 0455 10/03/23 0622 10/01/23 0548 09/30/23 2356 SODIUM mmol/L 137 136 139 < > 137 POTASSIUM mmol/L 4.1 4.2 3.9 < > 4.3 CHLORIDE mmol/L 104 104 105 < > 103 CO2 mmol/L 27 27 27 < > 27 BUN mg/dL 17 15 17 < > 20 CREATININE mg/dL 0.92 0.88 0.85 < > 0.96 GLUCOSE mg/dL 197* 207* 164* < > 253* MAGNESIUM mg/dL -- -- -- -- 2.0 CALCIUM mg/dL 8.5* 8.7 8.8 < > 8.9 PHOSPHORUS mg/dL -- -- -- -- 4.3 < > = values in this interval not displayed. Results from last 7 days Lab Units 09/30/23 2356 AST U/L 13 ALT U/L 11 ALK (more content not included)... [facility] 10-04-2023 Note CTA CHEST HISTORY: Preop evaluation and surgical planning for coronary artery bypass graft and possible mitral valve replacement COMPARISON: None TECHNIQUE: Routine CTA chest. 3-D maximum intensity projection reconstructions constructed under concurrent physician supervision on a independent workstation. 3-D images obtained to improve visualization of vascular detail. All CT scans at this facility use dose modulation, iterative reconstruction, and/or weight based dosing when appropriate to reduce radiation dose to as low as reasonably achievable. FINDINGS: Please refer to separate report for abdominal findings. Calcified and noncalcified atherosclerotic plaque throughout the thoracic aorta without evidence of aneurysm or dissection. Normal three-vessel branching pattern from the aortic arch. There is ulcerated plaque in the proximal aspect of the left subclavian artery. Moderate coronary artery calcifications. The central pulmonary arteries are unremarkable. Prominent bilateral hilar lymph nodes. Visualized structures in the lower neck are unremarkable. Visualized chest wall structures are unremarkable. Trace right pleural effusion. No left pleural effusion or pericardial effusion. There is a peripherally calcified pseudoaneurysm arising from the inferior left ventricular wall containing mural thrombus, measuring approximately 3.7 x 2.3 x 3.8 cm (series 5, image 345; series 7, image 102). Emphysema. Mild right lower lobe atelectasis. No airspace disease/consolidation. No acute osseous abnormalities or aggressive osseous lesions. Hiatal hernia. 3D reformatted images confirm the source data findings. IMPRESSION: *Pseudoaneurysm arising from the inferior left ventricular wall measuring approximately 3.7 x 2.3 x 3.8 cm, which contains wall calcifications and mural thrombus. *Diffuse atherosclerotic disease throughout the thoracic aorta and in the great vessels with ulcerated plaque in the proximal aspect of the left subclavian artery. No thoracic aortic aneurysm or dissection. *Coronary artery calcifications. *Prominent bilateral hilar lymph nodes, which are indeterminate. Follow-up chest CT suggested in 3 months to reassess. *Trace right pleural effusion. *Emphysema. Electronically signed: Shahbaz Ramos MD. 3 [facility] 10-04-2023 Note CTA ABDOMEN/PELVIS W ITH LOWER EXTREMITY RUNOFF HISTORY: Preop evaluation and surgical planning for coronary artery bypass graft and possible mitral valve replacement COMPARISON: 02/01/2020 TECHNIQUE: Multidetector CT angiogram through the abdomen, pelvis and lower extremities performed following the uncomplicated intravenous administration of 100 mL Omnipaque 350. 3-D maximum intensity projection reconstructions constructed under concurrent physician supervision on a independent workstation. 3-D images obtained to visualization of vascular detail. FINDINGS: Please refer to separate report for chest findings. Severe predominately calcified atherosclerotic plaque in the abdominal aorta with no evidence of abdominal aortic aneurysm or dissection. Diffuse atherosclerotic disease in the mesenteric vessels. Celiac axis, SMA, and SHARON are patent. There appears to be narrowing at the origin of the SHARON. Moderate narrowing in the proximal aspect of the left renal artery and moderate to severe narrowing in the proximal right renal artery. Patent right common and external iliac artery stents. Severe stenosis at the origin of the right internal iliac artery with mild post stenotic dilatation. Right common femoral, deep femoral, and superficial femoral arteries are patent. There is calcified plaque scattered throughout the right SFA. The right popliteal artery, tibioperoneal trunk, anterior tibial widely patent. Proximal aspect of the right anterior tibial and posterior tibial arteries are patent though these vessels become diminutive in the mid calf. Patent left common and external iliac artery stents. Severe disease in the left internal iliac artery. Left common femoral, deep femoral, and superficial femoral arteries are patent. Scattered atherosclerotic disease in the left SFA. Left popliteal artery, tibioperoneal trunk, posterior tibial artery, and peroneal artery are widely patent. Proximal aspect of the left anterior tibial artery is patent though this artery becomes diminutive at the level of the midcalf. The liver is unremarkable. Status post cholecystectomy. The spleen, adrenal glands are unremarkable. There is air within the pancreatic duct, slightly increased in amount when comparing with previous study. Periampullary duodenal diverticulum. Unchanged left renal cystic lesion. No enlarged abdominal or pelvic lymph nodes. Enlarged prostate gland. The bladder is unremarkable. No free fluid in the abdomen or pelvis. No free intraperitoneal air. No acute osseous abnormalities or aggressive osseous lesions. 3D reformatted images confirm the source data findings. IMPRESSION: *Study performed for preoperative planning purposes. *Please refer to separate report for chest findings, including description of left ventricular pseudoaneurysm. *Diffuse atherosclerotic disease in the abdominal aorta, iliofemoral vessels, and vessels of the lower extremities as described above. All CT scans at this facility use dose modulation, iterative reconstruction, and/or weight based dosing when appropriate to reduce radiation dose to as low as reasonably achievable. Electronically signed: Shahbaz Ramos MD. 8 [facility] 10-04-2023 Note 10/04/23 0953 Admission Assessment Questions Verify insurance with patient Yes Do you understand medical disease or what brought you into the hospital? Yes Who is your current PCP? Marisol Boyce MD Can I schedule a follow up appointment for you at the time of discharge? No Do you understand why you are taking your current medications? Yes Are you taking your medications as prescribed? Yes Did patient provide teach back? Yes Pharmacy Bedside Delivery Status Not Interested Does the patient have a watch case polisher assigned to them through their insurance? No Living Arrangement (Current/Prior to Hospitalization) Private residence;Home self care (lives w/ in one story home. 3 entry stairs) Does the patient have history of HHC or SNF? No Assistive Device Grab bars;Other (Comment) (shower chair) Patient's goal for discharge home Was patient reminded that goal for discharge is 11am? No Does the patient have transportation at discharge? Yes Type of Residence Private residence Is PT/OT appropriate? No Is PT/OT ordered? No Is SW consult appropriate? No Is SW consult ordered? No Do you understand the benefits of MyChart? Yes Were you able to send link and activate MyChart? Yes [facility] 10-04-2023 Note Cardiothoracic Surge ry Progress Note 10/04/2023 Room: [facility] Subjective Kimmy Mcarthur is a 78 y.o. male with PMH of multivessel coronary artery disease s/p RCA balloon angioplasty 2022 with stent, HFpEF, moderate MR, HTN, PAD, DM who presented for Afib with RVR and NSTEMI on 09/30/2023 to [facility]. He was experiencing chest pain and increased fatigue over the past week. When evaluated in [place] ED he was in AFIB RVR- HR 150s and troponin was elevated at 100. He received Cardizem and converted to NSR then sent to [facility] for further evaluation. Underwent cardiac catherization with Dr. Twyla Polanco today and was found to have LAD 70% stenosis mid segment, LCX 70% at second OM, RCA previously placed stents with 100% occlusion at ostium. CT Surgery was consulted for surgical evaluation and recommendations. As for PMH he endorses he underwent carotid endarterectomy multiple years ago on the right side by Dr. Cantu at [facility]- he was told his has a history of TIA's but has never fully been evaluated by CT or MRI. He endorses he continues to smoke, about 1 pack per week. Stays fairly active, but has been sleeping more lately. Underwent HARMONY year ago that showed moderate MR, he does endorse he has been experiencing increased swelling and episodes of dizziness recently. Interval: No acute events over night. Sitting on the edge of his bed with his in the room. Remains on heparin and amiodarone continuous infusion. Underwent echocardiogram yesterday. Denies chest pain, SOB, fevers, or chills. Denies dizziness or swelling of lower extremities. Objective Patient Vitals for the past 24 hrs: BP Temp Temp src Pulse Resp SpO2 Weight 10/04/23 0508 -- -- -- -- -- -- 35.5 kg (78 lb 3.2 oz) 10/04/23 0000 138/58 36.8 ???C (98.2 ???F) Temporal 52 16 97 % -- 10/03/23 2245 (!) 142/44 36.5 ???C (97.7 ???F) Temporal 54 18 99 % -- 10/03/23 1700 141/66 -- -- 56 -- 98 % -- 10/03/23 1600 (!) 128/42 36.4 ???C (97.5 ???F) Temporal 53 16 98 % -- 10/03/23 1500 114/52 -- -- 54 -- 96 % -- 10/03/23 1300 150/55 -- -- 50 -- 100 % -- 10/03/23 1230 142/58 36.3 ???C (97.3 ???F) Temporal 52 -- 98 % -- 10/03/23 1200 139/62 36.2 ???C (97.2 ???F) Temporal 52 16 96 % -- 10/03/23 1145 131/64 -- -- (!) 49 16 97 % -- 10/03/23 1130 119/63 -- -- (!) 49 17 94 % -- 10/03/23 1115 120/81 36.2 ???C (97.2 ???F) Temporal 52 17 95 % -- 10/03/23 1112 127/86 -- -- -- -- -- -- 10/03/23 1100 127/86 -- -- 53 13 95 % -- 10/03/23 1045 124/65 -- -- 55 14 94 % -- 10/03/23 1022 -- -- -- -- -- 98 % -- 10/03/23 1021 133/62 -- -- 59 19 96 % -- 10/03/23 0954 170/75 -- -- 68 16 99 % -- 10/03/23 0951 -- -- -- -- -- 99 % -- Physical Exam Vitals reviewed. Constitutional: General: He is not in acute distress. Appearance: Normal appearance. He is normal weight. He is not ill-appearing. HENT: Head: Normocephalic and atraumatic. Mouth/Throat: Mouth: Mucous membranes are moist. Pharynx: Oropharynx is clear. Eyes: Extraocular Movements: Extraocular movements intact. Conjunctiva/sclera: Conjunctivae normal. Pupils: Pupils are equal, round, and reactive to light. Neck: Vascular: No carotid bruit. Comments: Right neck scar. Cardiovascular: Rate and Rhythm: Regular rhythm. Bradycardia present. Pulses: Normal pulses. Heart sounds: Murmur heard. Pulmonary: Effort: Pulmonary effort is normal. No respiratory distress. Breath sounds: Normal breath sounds. Abdominal: General: Abdomen is flat. There is no distension. Palpations: Abdomen is soft. Musculoskeletal: General: Normal range of motion. Cervical back: Normal range of motion. Right lower leg: No edema. Left lower leg: No edema. Skin: General: Skin is warm and dry. Capillary Refill: Capillary refill takes less than 2 seconds. Coloration: Skin is not pale. Neurological: General: No focal deficit present. Mental Status: He is alert and oriented to person, place, and time. Mental status is at baseline. Psychiatric: Mood and Affect: Mood normal. Behavior: Behavior normal. Thought Content: Thought content normal. Judgment: Judgment normal. Lab Results Component Value Date NA 136 10/04/2023 K 4.2 10/04/2023 CL 104 10/04/2023 ANIONGAP 9 10/04/2023 BUN 15 10/04/2023 CREATININE 0.88 10/04/2023 CALCIUM 8.7 10/04/2023 MG 2.0 09/30/2023 PHOS 4.3 09/30/2023 Lab Results Component Value Date BILITOT 0.6 09/30/2023 ALKPHOS 66 09/30/2023 AST 13 09/30/2023 ALT 11 09/30/2023 PROT 5.4 (L) 09/30/2023 ALBUMIN 3.5 09/30/2023 Lab Results Component Value Date WBC 4.88 10/04/2023 RBC 4.16 (L) 10/04/2023 HGB 12.3 (L) 10/04/2023 HCT 36.9 (L) 10/04/2023 PLT 136 (L) 10/04/2023 NRBC 0.0 10/04/2023 Cardiac Catherization (10/03/2023 Dr. Polanco): Coronary Angiogram: Left main: the left main is patent LAD: the LAD is a large vessel. The ostial segment has calcified 40% stenosis. The proximal segment has calcified 10 to 2 (more content not included)... [facility] 10-04-2023 Note [facility] CARDIOLOGY INPAT IENT PROGRESS NOTE Reason for follow up: Afib RVR, NSTEMI s/p cardiac cath with severe 3 vessel CAD Subjective HPI: Kimmy Mcarthur is a 78 y.o. male with history of coronary artery disease, peripheral artery disease, history of balloon angioplasty of RCA stent here and February 2023 was referred from other facility the patient went there with chest discomfort found to have atrial fibrillation with rapid ventricular response heart rate was in the 150s, high-sensitivity troponin was elevated at 100, patient was given Cardizem and converted to sinus rhythm, he was referred here for further evaluation as the patient presented he was feeling well denied any chest discomfort denies shortness of breath lower extremity swelling PND's or orthopnea he noticed he gets short of breath sometimes but he has been doing well for the last few weeks. Underwent coronary angiogram on 10/03/[address] Twyla Polanco with findings of severe triple vessel CAD. Cardiothoracic surgery consulted. Interval: Patient with family at bedside. He denies CP, SOB, edema. He is s/p cardiac cath from yesterday. Right radial site is dry, intact, no hematoma. Tele: SR 49-68 bpm ALLERGIES No Known Allergies CURRENT MEDS aspirin, 81 mg, oral, Daily atorvastatin, 80 mg, oral, Nightly carvedilol, 3.125 mg, oral, BID with meals insulin lispro, 0-13 Units, subcutaneous, With meals & nightly lisinopril, 20 mg, oral, Daily tamsulosin, 0.4 mg, oral, Daily amiodarone, 0.5 mg/min, Last Rate: 0.5 mg/min (10/04/23 0136) heparin, 0-28 Units/kg/hr, Last Rate: 18 Units/kg/hr (10/04/23 0630) PRN medications: acetaminophen, glucose OR dextrose 50 % in water (D50W), lactulose, sennosides-docusate sodium Objective Patient Vitals for the past 24 hrs: BP Temp Temp src Pulse Resp SpO2 Weight 10/04/23 0508 -- -- -- -- -- -- 35.5 kg (78 lb 3.2 oz) 10/04/23 0000 138/58 36.8 ???C (98.2 ???F) Temporal 52 16 97 % -- 10/03/23 2245 (!) 142/44 36.5 ???C (97.7 ???F) Temporal 54 18 99 % -- 10/03/23 1700 141/66 -- -- 56 -- 98 % -- 10/03/23 1600 (!) 128/42 36.4 ???C (97.5 ???F) Temporal 53 16 98 % -- 10/03/23 1500 114/52 -- -- 54 -- 96 % -- 10/03/23 1300 150/55 -- -- 50 -- 100 % -- 10/03/23 1230 142/58 36.3 ???C (97.3 ???F) Temporal 52 -- 98 % -- 10/03/23 1200 139/62 36.2 ???C (97.2 ???F) Temporal 52 16 96 % -- 10/03/23 1145 131/64 -- -- (!) 49 16 97 % -- 10/03/23 1130 119/63 -- -- (!) 49 17 94 % -- 10/03/23 1115 120/81 36.2 ???C (97.2 ???F) Temporal 52 17 95 % -- 10/03/23 1112 127/86 -- -- -- -- -- -- 10/03/23 1100 127/86 -- -- 53 13 95 % -- 10/03/23 1045 124/65 -- -- 55 14 94 % -- 10/03/23 1022 -- -- -- -- -- 98 % -- 10/03/23 1021 133/62 -- -- 59 19 96 % -- 10/03/23 0954 170/75 -- -- 68 16 99 % -- 10/03/23 0951 -- -- -- -- -- 99 % -- BP 138/58 Pulse 52 Temp 36.8 ???C (98.2 ???F) (Temporal) Resp 16 Ht 1.829 m (6' 0.01 ) Wt 35.5 kg (78 lb 3.2 oz) SpO2 97% BMI 10.60 kg/m??? Wt Readings from Last 3 Encounters: 10/04/23 35.5 kg (78 lb 3.2 oz) 04/18/23 73.9 kg (163 lb) 12/29/22 70.8 kg (156 lb) General: Awake, alert, appropriate mood/affect, NAD Eyes: anicteric sclera. Non-injected conjunctiva. Neck: No elevated JVP. No carotid bruit Pulm: Breath sounds clear to ascultation bilaterally with no wheeze, crackles or rhonchi Cards: regular rhythm with bradycardia, NL S1, S2. No S3 or S4 gallop. Murmur: present Abd: Soft, Nontender, physiologic bowel sounds are present Extr: Lower extremity edema: none. DP pulses present bilaterally Skin: warm, dry, well perfused Right radial cardiac cath site: dressing removed, site is soft, clean, dry, no hematoma or eccymosis. Radial pulse +2, applied bandage over site. Neuro: A&Ox3, No gross deficits Lab Results Component Value Date NA 136 10/04/2023 K 4.2 10/04/2023 CL 104 10/04/2023 ANIONGAP 9 10/04/2023 BUN 15 10/04/2023 CREATININE 0.88 10/04/2023 CALCIUM 8.7 10/04/2023 MG 2.0 09/30/2023 PHOS 4.3 09/30/2023 Lab Results Component Value Date BILITOT 0.6 09/30/2023 ALKPHOS 66 09/30/2023 AST 13 09/30/2023 ALT 11 09/30/2023 PROT 5.4 (L) 09/30/2023 ALBUMIN 3.5 09/30/2023 Lab Results Component Value Date CHOLESTEROL 157 10/03/2023 TRIGLYCERIDES 124 10/03/2023 HDL 50 10/03/2023 LDL CHOLESTEROL 52 02/27/2020 LDL CALC 82 10/03/2023 No results found for: BNP Lab Results Component Value Date TSH 6.07 (H) 10/03/2023 No results found for: DIGOXIN LVL Lab Results Component Value Date HGBA1C 8.5 (H) 10/03/2023 Lab Results Component Value Date WBC 4.88 10/04/2023 RBC 4.16 (L) 10/04/2023 HGB 12.3 (L) 10/04/2023 HCT 36.9 (L) 10/04/2023 MCV 88.7 10/04/2023 MCH 29.6 10/04/2023 MCHC 33.3 10/04/2023 RDW 13.2 10/04/2023 NEUTOPHILPCT 59.5 10/04/2023 LYMPHOPCT 25.0 10/04/2023 MONOPCT 9.0 10/04/2023 EOSPCT 4.9 10/04/2023 BASOPCT 0.8 10/04/2023 NEUTROABS 2.90 10/04/2023 LYMPHSABS 1.22 (more content not included)... [facility] 10-04-2023 Note Hospital Medicine Daily Progress Note - 10/04/2023 7:48 AM; Room: 3111/3111-01 Admission: 09/30/2023 2:57 PM; Length of stay: 4 days THE HOSPITALIST TEAM PREFERS TO USE [employer] CH[employer] FOR COMMUNICATION 7AM-7PM. IF I DO NOT RESPOND WITHIN 15 MINUTES, PLEASE PAGE ME/CALL THROUGH THE MEDICAL RECORD CONSULTANT. FROM 7PM-7AM, PLEASE PAGE [phone](COVR) Code Status: Full Code Barriers to Discharge: tentative CABG for multivessel coronary disease Expected Discharge Date: TBD Discharge Destination: TBD Overview Patient is seen for evaluation and management of atrial fibrillation with rapid ventricular response. Multivessel disease found on angiography; now CTS following for CABG planning. Subjective Patient was seen and evaluated at bedside. No new concerns. He is doing well overall, but does state that he is getting poor sleep. Eager to speak with Cardiothoracic surgeon regarding his CABG. No chest pressure, palpitations, SOB. Physical Exam Visit Vitals BP 138/58 Pulse 52 Temp 36.8 ???C (98.2 ???F) (Temporal) Resp 16 Intake/Output Summary (Last 24 hours) at 10/04/2023 0748 Last data filed at 10/03/2023 2259 Gross per 24 hour Intake 3369.67 ml Output 1455 ml Net 1914.67 ml Estimated body mass index is 10.6 kg/m??? as calculated from the following: Height as of this encounter: 1.829 m (6' 0.01 ). Weight as of this encounter: 35.5 kg (78 lb 3.2 oz). GENERAL: The patient is well developed and nontoxic. Sittng in bed. No apparent distress. VITAL SIGNS: Reviewed in the EMR. HEENT: Nonicteric sclerae, EOMI. Oropharynx clear. Moist mucous membranes. Conjunctivae appear well perfused. HEART: Bradycardic with normal rhythm without murmurs. occasional added beats LUNGS: Clear to auscultation bilaterally. No wheezing and crackles. ABDOMEN: Soft, positive bowel sounds, nontender, no organomegaly. SKIN: No rash, no excessive bruising, petechiae, or purpura. NEUROLOGIC: Cranial nerves II-XII intact without motor/sensory deficit. MSK: No lower extremity edema Active Inpatient Problems Principal Problem: Coronary artery disease of [place] artery of [place] heart with stable angina pectoris ([facility]) Active Problems: Nonrheumatic mitral valve regurgitation Primary hypertension Peripheral arterial occlusive disease ([facility]) Tobacco dependence syndrome COPD, moderate ([facility]) Type 2 diabetes mellitus without complication, with long-term current use of insulin ([facility]) A-fib ([facility]) NSTEMI (non-ST elevated myocardial infarction) ([facility]) history of coronary artery disease Assessment and Plan NSTEMI Severe triple vessel CAD History of CAD s/p balloon angioplasty of RCA stent 02/2023 Chronic HFpEF NYHA II, not in exacerbation Mitral Regurgitation Primary hypertension PAD Tobacco use disorder -s/p Cardiac cath showing multivessel disease -CTS consulted, anticipating CABG early next week -Continue ASA, hold Plavix -Continue Coreg 3.125 BID, lisinopril 20 every day, and statin -Continue telemetry Paroxysmal Afib Asymptomatic bradycardia -Converted to sinus -Currently on Amiodarone drip -Will be converted to PO amiodarone starting tomorrow -Continue heparin infusion Hyperlipidemia -Zetia added Type 2 DM, uncontrolled -A1c 8.5 on 10/03/23 -Continue SSI Scheduled Meds aspirin, 81 mg, oral, Daily atorvastatin, 80 mg, oral, Nightly carvedilol, 3.125 mg, oral, BID with meals insulin lispro, 0-13 Units, subcutaneous, With meals & nightly lisinopril, 20 mg, oral, Daily tamsulosin, 0.4 mg, oral, Daily amiodarone, 0.5 mg/min, Last Rate: 0.5 mg/min (10/04/23 0136) heparin, 0-28 Units/kg/hr, Last Rate: 18 Units/kg/hr (10/04/23 0630) Pertinent Investigations Hematology: Results from last 7 days Lab Units 10/04/23 0455 10/03/23 0622 WBC AUTO 10*3/uL 4.88 5.98 HEMOGLOBIN g/dL 12.3* 13.0 HEMATOCRIT % 36.9* 38.9* MCV fL 88.7 88.8 PLATELETS AUTO 10*3/uL 136* 135* Chemistry: Results from last 7 days Lab Units 10/04/23 0455 10/03/23 0622 10/02/23 0746 10/01/23 0548 09/30/23 2356 SODIUM mmol/L 136 139 138 < > 137 POTASSIUM mmol/L 4.2 3.9 3.8 < > 4.3 CHLORIDE mmol/L 104 105 105 < > 103 CO2 mmol/L 27 27 27 < > 27 BUN mg/dL 15 17 16 < > 20 CREATININE mg/dL 0.88 0.85 0.77 < > 0.96 GLUCOSE mg/dL 207* 164* 153* < > 253* MAGNESIUM mg/dL -- -- -- -- 2.0 CALCIUM mg/dL 8.7 8.8 8.6 < > 8.9 PHOSPHORUS mg/dL -- -- -- -- 4.3 < > = values in this interval not displayed. Results from last 7 days Lab Units 09/30/23 2356 AST U/L 13 ALT U/L 11 ALK PHOS U/L 66 BILIRUBIN TOTAL mg/dL 0.6 Results from last 7 days Lab Units 10/04/23 0710 10/03/23 2017 10/03/23 1735 10/03/23 1121 10/03/23 0731 10/02/23 2109 POCT GLUCOSE mg/dL 203* 173* 223* 173* 163* 241* Historical Values: (Includes values prior to this admission) Lab Results Component Value Date TSH 6.07 (H) 10/03/2023 HDL 50 10/03/2023 LDL 107 10/03/2023 No results found (more content not included)... [facility] 10-03-2023 Note Hospital Medicine Daily Progress Note - 10/03/2023 1:40 PM; Room: [address] [place] [address] Admission: 09/30/2023 2:57 PM; Length of stay: 3 days THE HOSPITALIST TEAM PREFERS TO USE [employer] FOR COMMUNICATION 7AM-7PM. IF I DO NOT RESPOND WITHIN 15 MINUTES, PLEASE PAGE ME/CALL THROUGH THE MEDICAL RECORD CONSULTANT. FROM 7PM-7AM, PLEASE PAGE [phone](COVR) Code Status: Full Code Barriers to Discharge: coronary angiogram and echocardiogram planned on Tuesday Expected Discharge Date: 3 to 4 days Discharge Destination: home Overview Patient is seen for evaluation and management of atrial fibrillation with rapid ventricular response. Subjective Patient was seen and evaluated at bedside. No new concerns. Patient had angiogram today which showed severe triple-vessel disease, CT surgery was consulted for CABG Physical Exam Visit Vitals BP 142/58 Pulse 52 Temp 36.2 ???C (97.2 ???F) (Temporal) Resp 16 Intake/Output Summary (Last 24 hours) at 10/03/2023 1340 Last data filed at 10/03/2023 1249 Gross per 24 hour Intake 1402.94 ml Output 5 ml Net 1397.94 ml Estimated body mass index is 22.78 kg/m??? as calculated from the following: Height as of this encounter: 1.829 m (6' 0.01 ). Weight as of this encounter: 76.2 kg (168 lb). GENERAL: The patient is well developed and nontoxic. Sittng in bed. No apparent distress. VITAL SIGNS: Reviewed in the EMR. HEENT: Nonicteric sclerae, EOMI. Oropharynx clear. Moist mucous membranes. Conjunctivae appear well perfused. HEART: Regular rate and rhythm without murmurs. occasional added beats LUNGS: Clear to auscultation bilaterally. No wheezing and crackles. ABDOMEN: Soft, positive bowel sounds, nontender, no organomegaly. SKIN: No rash, no excessive bruising, petechiae, or purpura. NEUROLOGIC: Cranial nerves II-XII intact without motor/sensory deficit. MSK: No lower extremity edema Active Inpatient Problems Principal Problem: Coronary artery disease of [place] artery of [place] heart with stable angina pectoris ([facility]) Active Problems: Nonrheumatic mitral valve regurgitation Primary hypertension Peripheral arterial occlusive disease ([facility]) Tobacco dependence syndrome COPD, moderate ([facility]) Type 2 diabetes mellitus without complication, with long-term current use of insulin ([facility]) A-fib ([facility]) NSTEMI (non-ST elevated myocardial infarction) ([facility]) history of coronary artery disease Assessment and Plan - continue amiodarone and heparin drips - CT surgery consulted due to triple-vessel disease found on coronary angiogram - Telemetry, vitals per unit protocol, continuous pulse ox, Q4 I&O's - continue heparin drip for A-fib with RVR [id number] score at least 4 IV heparin Scheduled Meds aspirin, 81 mg, oral, Daily atorvastatin, 80 mg, oral, Nightly carvedilol, 3.125 mg, oral, BID with meals insulin lispro, 0-13 Units, subcutaneous, With meals & nightly lisinopril, 20 mg, oral, Daily tamsulosin, 0.4 mg, oral, Daily amiodarone, 0.5 mg/min, Last Rate: 0.5 mg/min (10/03/23 1249) heparin, 0-28 Units/kg/hr, Last Rate: Stopped (10/03/23 0800) Pertinent Investigations Hematology: Results from last 7 days Lab Units 10/03/23 0622 10/02/23 0746 WBC AUTO 10*3/uL 5.98 6.87 HEMOGLOBIN g/dL 13.0 13.1 HEMATOCRIT % 38.9* 38.5* MCV fL 88.8 87.5 PLATELETS AUTO 10*3/uL 135* 134* Chemistry: Results from last 7 days Lab Units 10/03/23 0622 10/02/23 0746 10/01/23 0548 09/30/23 2356 SODIUM mmol/L 139 138 137 137 POTASSIUM mmol/L 3.9 3.8 4.1 4.3 CHLORIDE mmol/L 105 105 105 103 CO2 mmol/L 27 27 25 27 BUN mg/dL 17 16 18 20 CREATININE mg/dL 0.85 0.77 0.82 0.96 GLUCOSE mg/dL 164* 153* 154* 253* MAGNESIUM mg/dL -- -- -- 2.0 CALCIUM mg/dL 8.8 8.6 8.7 8.9 PHOSPHORUS mg/dL -- -- -- 4.3 Results from last 7 days Lab Units 09/30/23 2356 AST U/L 13 ALT U/L 11 ALK PHOS U/L 66 BILIRUBIN TOTAL mg/dL 0.6 Results from last 7 days Lab Units 10/03/23 1121 10/03/23 0731 10/02/23 2109 10/02/23 1802 10/02/23 1637 10/02/23 1119 POCT GLUCOSE mg/dL 173* 163* 241* 176* 237* 136* Historical Values: (Includes values prior to this admission) Lab Results Component Value Date TSH 6.07 (H) 10/03/2023 HDL 50 10/03/2023 LDL 107 10/03/2023 No results found for: [id number] , IRON , TIBC , C3 , C4 , HO , CANCA , ASO , PSA , CEA , CA125 , CA199 , AFP , CA153 Imaging Cardiac catheterization PROCEDURE PHYSICIAN: Twyla Polanco MD Clinical Presentation: 78 y.o. Male with history of CAD status post prior PCI RCA, hypertension, hyperlipidemia, PAD, and active smoking. Patient admitted with chest pain and diagnosed NSTEMI and A-fib with RVR. Final Impression: 1) severe triple-vessel CAD Plan: 1) consult CT surgery for CABG / MAZE / LAAO 2) optimal med therapy for CAD; Aspirin, high intensity statin therapy, and beta-cesilia as tolerated for CAD Procedures Performed: coronary angiogram, conscious (more content not included)... [facility] 10-03-2023 Note Cardiothoracic Surge ry Consultation Note 10/03/2023 Room: [address] [place] [address] Reason For Consult CABG Referring Provider: Dr. Twyla Polanco History Of Present Illness Kimmy Mcarthur is a 78 y.o. male with PMH of multivessel coronary artery disease s/p RCA balloon angioplasty 2022 with stent, HFpEF, moderate MR, HTN, PAD, DM who presented for Afib with RVR and NSTEMI on 09/30/2023 to [facility]. He was experiencing chest pain and increased fatigue over the past week. When evaluated in [place] ED he was in AFIB RVR- HR 150s and troponin was elevated at 100. He received Cardizem and converted to NSR then sent to [facility] for further evaluation. Underwent cardiac catherization with Dr. Twyla Polanco today and was found to have LAD 70% stenosis mid segment, LCX 70% at second OM, RCA previously placed stents with 100% occlusion at ostium. CT Surgery was consulted for surgical evaluation and recommendations. Seen bedside with present. Appears to be in no acute distress. Bradycardia present on ECG monitor. As for PMH he endorses he underwent carotid endarterectomy multiple years ago on the right side by Dr. Cantu at [facility]- he was told his has a history of TIA's but has never fully been evaluated by CT or MRI. He endorses he continues to smoke, about 1 pack per week. Stays fairly active, but has been sleeping more lately. Underwent HARMONY year ago that showed moderate MR, he does endorse he has been experiencing increased swelling and episodes of dizziness recently. Past Medical History He has a past medical history of Carotid artery disorder ([facility]), Coronary artery disease, Diabetes mellitus ([facility]), Heart valve disease, Hypertension, and PAD (peripheral artery disease) ([facility]). Surgical History He has a past surgical history that includes CTA Aorta And Bilateral Iliofemoral Runoff W IV Contrast (02/11/2020); CTA Neck W IV Contrast (03/08/2021); Cataract extraction; Cholecystectomy; Shoulder surgery; Cardiac catheterization; Vascular surgery; Carotid endarterectomy; and Coronary stent placement. Family History Family History Problem Relation Name Age of Onset Cancer Father Diabetes Father Social History He reports that he quit [...] 81 mg by mouth in the morning. 09/29/2023 atorvastatin (Lipitor) 80 mg tablet Take 1 tablet (80 mg) by mouth at bedtime. 90 tablet 3 09/29/2023 carvedilol (Coreg) 12.5 mg tablet Take 1 tablet (12.5 mg) by mouth with breakfast and with evening meal. 180 tablet 3 09/29/2023 clopidogrel (Plavix) 75 mg tablet Take 1 tablet (75 mg) by mouth once daily as directed. 90 tablet 3 09/29/2023 dapagliflozin propanediol (Farxiga) 10 mg Take 10 mg by mouth in the morning. 09/29/2023 ferrous sulfate 325 (65 Fe) MG tablet FeroSul 325 mg (65 mg iron) tablet TAKE 1 TABLET BY MOUTH TWICE DAILY 09/29/2023 insulin detemir (Levemir FlexPen) 100 unit/mL (3 mL) pen 35 Units at bedtime. 09/29/2023 metFORMIN (Glucophage) 1,000 mg tablet Take 1,000 mg by mouth with breakfast. ramipril (Altace) 5 mg capsule Take 1 capsule (5 mg) by mouth once daily as directed. 90 capsule 3 09/29/2023 tamsulosin (Flomax) 0.4 mg 24 hr capsule Take 0.4 mg by mouth in the morning. 09/29/2023 Active Hospital Medications Medication Dose Route Frequency Last Admin acetaminophen 650 mg oral q6h PRN amiodarone 0.5 mg/min intravenous Continuous 0.5 mg/min at 10/03/23 0232 aspirin 81 mg oral Daily 81 mg at 10/03/23 1113 atorvastatin 80 mg oral Nightly 80 mg at 10/02/23 2144 carvedilol 3.125 mg oral BID with meals glucose 24 g oral q15 min PRN Or dextrose 50 % in water (D50W) 25 g intravenous q15 min PRN heparin 0-28 Units/kg/hr intravenous Continuous 16 Units/kg/hr at 10/02/23 1149 insulin lispro 0-13 Units subcutaneous With meals & nightly 2 Units at 10/02/23 2144 lactulose 10 g oral Daily PRN lisinopril 20 mg oral Daily 20 mg at 10/03/23 1112 sennosides-docusate sodium 1 tablet oral Daily PRN tamsulosin 0.4 mg oral Daily 0.4 mg at 10/03/23 1113 Review of Systems Review of Systems: All 14 Systems Reviewed and Negative unless otherwise indicated in the above HPI. Last Recorded Vitals Patient Vitals for the past 24 hrs: BP Temp Temp src Pulse Resp SpO2 Weight 10/03/23 1230 142/58 -- -- 52 -- 98 % -- 10/03/23 1200 139/62 -- -- 52 -- 96 % -- 10/03/23 1145 131/64 -- -- (!) 49 16 97 % -- 10/03/23 1130 119/63 -- -- (!) 49 17 94 % -- 10/03/23 1115 120/81 36.2 ???C (97.2 ???F) Temporal 52 17 95 % -- 10/03/23 1112 127/86 -- -- -- -- -- -- 10/03/23 1100 127/86 -- -- 53 13 95 % -- 10/03/23 1045 124/65 -- -- 55 14 94 % (more content not included)... [facility] 10-03-2023 Note Patient: Kimmy singh Procedure Information Date/Time: 10/03/23 0930 Procedure: Coronary angiography Location: [facility]BAC[facility] 3 / [facility] (Cath) Providers: Twyla Polanco MD Clinical information reviewed: Allergies Meds Physical Exam Airway Mallampati: III TM distance: >3 FB Neck ROM: full Cardiovascular Rhythm: regular Rate: normal (+) murmur Dental Pulmonary Breath sounds clear to auscultation Abdominal Abdomen: soft Bowel sounds: normal Anesthesia Plan ASA 3 other (Conscious sedation) Anesthetic plan and risks discussed with patient. Use of blood products discussed with patient who consented to blood products. Plan discussed with attending. Additional Equipment Requests [facility] 10-03-2023 Note Attestation signed by Cecilia Mathis MD at 10/03/2023 5:15 PM GC: I saw this patient. I personally performed the critical/menjivar portions that determines the level of service. I was directly involved in the management and treatment plan of the patient. I reviewed resident Dr. Hernandez's note and agree with the documentation Cardiology Progress Note REASON FOR CONSULT Reason for Consult: afib SUBJECTIVE Interval History: Patient seen and examined at bedside. No overnight events. They have no complaints at this time and are doing well. Patient is afebrile and hemodynamically stable. Physical exam unchanged. HPI: Kimmy Mcarthur is a 78 y.o. male with history of coronary artery disease, peripheral artery disease, history of balloon angioplasty of RCA stent here and February 2023 was referred from other facility the patient went there with chest discomfort found to have atrial fibrillation with rapid ventricular response heart rate was in the 150s, high-sensitivity troponin was elevated at 100, patient was given Cardizem and converted to sinus rhythm, he was referred here for further evaluation as the patient presented he was feeling well denied any chest discomfort denies shortness of breath lower extremity swelling PND's or orthopnea he noticed he gets short of breath sometimes but he has been doing well for the last few weeks OBJECTIVE Objective: Visit Vitals BP 142/58 Pulse 52 Temp 36.2 ???C (97.2 ???F) (Temporal) Resp 16 Physical Examination: GENERAL: AOx3, in no acute distress. HEAD: Atraumatic, normocephalic. EYES: ESCOBAR, EOMI. NECK: No JVD present. CARDIAC: RRR. No murmur, rubs, or gallops. RESPIRATORY: CTAB, no increased effort of breathing. ABDOMEN: Soft, nontender, nondistended. EXTREMITIES: No lower extremity edema, peripheral pulses are 2+ bilaterally. NEURO: No focal deficits Current Meds: Current Facility-Administered Medications: acetaminophen (Tylenol) tablet 650 mg, 650 mg, oral, q6h PRN, Nixon Kent MD amiodarone (Nexterone) infusion, 0.5 mg/min, intravenous, Continuous, Donte Rainey MD, Last Rate: 16.67 mL/hr at 10/03/23 1249, 0.5 mg/min at 10/03/23 1249 aspirin chewable tablet 81 mg, 81 mg, oral, Daily, Donte Rainey MD, 81 mg at 10/03/23 1113 atorvastatin (Lipitor) tablet 80 mg, 80 mg, oral, Nightly, Donte Rainey MD, 80 mg at 10/02/23 2144 carvedilol (Coreg) tablet 3.125 mg, 3.125 mg, oral, BID with meals, Shoaib Hernandez glucose chewable tablet 24 g, 24 g, oral, q15 min PRN OR dextrose 50 % in water (D50W) syringe 25 g, 25 g, intravenous, q15 min PRN, Nixon Ketn MD heparin infusion 100 units/mL in D5W, 0-28 Units/kg/hr, intravenous, Continuous, Donte Rainey MD, Stopped at 10/03/23 0800 insulin lispro (HumaLOG) injection 0-13 Units, 0-13 Units, subcutaneous, With meals & nightly, Nixon Kent MD, 9 Units at 10/03/23 1259 lactulose (Chronulac) 10 gram/15 mL solution 10 g, 10 g, oral, Daily PRN, Nixon Kent MD lisinopril tablet 20 mg, 20 mg, oral, Daily, Donte Rainey MD, 20 mg at 10/03/23 1112 sennosides-docusate sodium (Susan-Colace) 8.6-50 mg per tablet 1 tablet, 1 tablet, oral, Daily PRN, Nixon Kent MD tamsulosin (Flomax) 24 hr capsule 0.4 mg, 0.4 mg, oral, Daily, Nixon Kent MD, 0.4 mg at 10/03/23 1113 Relevant Lab Results: Encounter Date: 09/30/23 ECG 12 lead Result Value Ventricular Rate 60 Atrial Rate 59 DE Interval 138 QRS DURATION 116 QT Interval 452 QTC CALCULATION(BAZETT) 452 P [place] 72 R-[place] 62 T Wave [place] -14 Impression Sinus bradycardia with Premature atrial complexes Possible Inferior infarct (cited on or before 07-JAN-2005) Abnormal ECG When compared with ECG of 30-SEP-2023 18:16, (unconfirmed) Premature atrial complexes are now Present Confirmed by Wan MATHIS, CECILIA Garcia ([id number]) on 10/01/2023 12:21:12 PM Lab Results Component Value Date TROPONINI 0.55 (HH) 10/01/2023 Transesophageal echo (HARMONY) Result Date: 02/28/2023 [facility] [address] [place] [address] [phone] (fax) Transesophageal Echocardiogram-[facility] Name: KIMMY MCARTHUR Study Date: 02/28/2023 09:41 AM B/P: 149 mmHg/58 mmHg HR: Date of : 1945 Location: [facility] Height: 72 in. Age: 77 year(s) Patient Room: Weight: 156 lb. Gender: Male Patient Status: OutPt BSA: 1.92 m2 Indication: Aortic Valve Stenosis Examination: HARMONY/Limited Doppler/CFI, 3D images Image Quality: Good Patient Consent: Informed, written consent was obtained for the procedure Exam Location: A HARMONY was performed in the [facility] without complications Anesthesia Pharyngeal anesthesia with viscous Lidocaine Conclusions Left Ventricle: The left ventric (more content not included)... [facility] 10-02-2023 Note Hospital Medicine Daily Progress Note - 10/02/2023 1:23 PM; Room: [id number] Admission: 09/30/2023 2:57 PM; Length of stay: 2 days THE HOSPITALIST TEAM PREFERS TO USE [employer] FOR COMMUNICATION 7AM-7PM. IF I DO NOT RESPOND WITHIN 15 MINUTES, PLEASE PAGE ME/CALL THROUGH THE MEDICAL RECORD CONSULTANT. FROM 7PM-7AM, PLEASE PAGE [phone](COVR) Code Status: Full Code Barriers to Discharge: coronary angiogram and echocardiogram planned on Tuesday Expected Discharge Date: 3 to 4 days Discharge Destination: home Overview Patient is seen for evaluation and management of atrial fibrillation with rapid ventricular response. Subjective Stable overnight no new concerns. Physical Exam Visit Vitals BP (!) 124/49 Pulse 51 Temp 36.3 ???C (97.3 ???F) (Temporal) Resp 19 Intake/Output Summary (Last 24 hours) at 10/02/2023 1323 Last data filed at 10/02/2023 1149 Gross per 24 hour Intake 1745.38 ml Output -- Net 1745.38 ml Estimated body mass index is 23.02 kg/m??? as calculated from the following: Height as of this encounter: 1.829 m (6' 0.01 ). Weight as of this encounter: 77 kg (169 lb 12.8 oz). GENERAL: The patient is well developed and nontoxic. Sittng in bed. No apparent distress. VITAL SIGNS: Reviewed in the EMR. HEENT: Nonicteric sclerae, EOMI. Oropharynx clear. Moist mucous membranes. Conjunctivae appear well perfused. HEART: Regular rate and rhythm without murmurs. occasional added beats LUNGS: Clear to auscultation bilaterally. No wheezing and crackles. ABDOMEN: Soft, positive bowel sounds, nontender, no organomegaly. SKIN: No rash, no excessive bruising, petechiae, or purpura. NEUROLOGIC: Cranial nerves II-XII intact without motor/sensory deficit. MSK: No lower extremity edema Active Inpatient Problems Principal Problem: A-fib ([facility]) Active Problems: NSTEMI (non-ST elevated myocardial infarction) ([facility]) history of coronary artery disease Assessment and Plan - continue amiodarone and heparin drips - cardiology planning echo and coronary angiography on Tuesday - patient has some PVCs otherwise is in normal sinus rhythm - Telemetry, vitals per unit protocol, continuous pulse ox, Q4 I&O's - continue heparin drip for A-fib with RVR [id number] score at least 4 IV heparin Scheduled Meds aspirin, 81 mg, oral, Daily atorvastatin, 80 mg, oral, Nightly carvedilol, 12.5 mg, oral, BID with meals clopidogrel, 75 mg, oral, Daily insulin lispro, 0-13 Units, subcutaneous, With meals & nightly tamsulosin, 0.4 mg, oral, Daily amiodarone, 0.5 mg/min, Last Rate: 0.5 mg/min (10/02/23 0106) heparin, 0-28 Units/kg/hr, Last Rate: 16 Units/kg/hr (10/02/23 1149) Pertinent Investigations Hematology: Results from last 7 days Lab Units 10/02/23 0746 10/01/23 0548 WBC AUTO 10*3/uL 6.87 6.46 HEMOGLOBIN g/dL 13.1 12.2* HEMATOCRIT % 38.5* 36.5* MCV fL 87.5 88.8 PLATELETS AUTO 10*3/uL 134* 141* Chemistry: Results from last 7 days Lab Units 10/02/23 0746 10/01/23 0548 09/30/23 2356 SODIUM mmol/L 138 137 137 POTASSIUM mmol/L 3.8 4.1 4.3 CHLORIDE mmol/L 105 105 103 CO2 mmol/L 27 25 27 BUN mg/dL 16 18 20 CREATININE mg/dL 0.77 0.82 0.96 GLUCOSE mg/dL 153* 154* 253* MAGNESIUM mg/dL -- -- 2.0 CALCIUM mg/dL 8.6 8.7 8.9 PHOSPHORUS mg/dL -- -- 4.3 Results from last 7 days Lab Units 09/30/23 2356 AST U/L 13 ALT U/L 11 ALK PHOS U/L 66 BILIRUBIN TOTAL mg/dL 0.6 Results from last 7 days Lab Units 10/02/23 1119 10/02/23 0658 10/01/23 2037 10/01/23 1645 10/01/23 1130 10/01/23 0700 POCT GLUCOSE mg/dL 136* 156* 265* 223* 115* 162* Historical Values: (Includes values prior to this admission) Lab Results Component Value Date HDL 37 02/27/2020 LDL 52 02/27/2020 LDL 80 02/27/2020 No results found for: [id number] , IRON , TIBC , C3 , C4 , HO , CANCA , ASO , PSA , CEA , CA125 , CA199 , AFP , CA153 Imaging ECG 12 lead Sinus bradycardia with Premature atrial complexes Possible Inferior infarct (cited on or before 07-JAN-2005) Abnormal ECG When compared with ECG of 30-SEP-2023 18:16, (unconfirmed) Premature atrial complexes are now Present Confirmed by Wan MATHIS, CECILIA Garcia ([id number]) on 10/01/2023 12:21:12 PM ECG 12 lead Sinus bradycardia Possible Inferior infarct (cited on or before 07-JAN-2005) Abnormal ECG When compared with ECG of 28-FEB-2023 14:09, Nonspecific T wave abnormality now evident in Lateral Confirmed by Wan MATHIS, CECILIA aGrcia ([id number]) on 10/01/2023 12:17:40 PM Discharge Planning Signed Nixon Kent MD [facility] 10/02/2023 1:23 PM [facility] 10-02-2023 Note Attestation signed by Cecilia Mathis MD at 10/03/2023 9:30 AM GC: I saw this patient. I personally performed the critical/menjivar portions that determines the level of service. I was directly involved in the management and treatment plan of the patient. I reviewed fellow Dr. Rainey's note and agree with the documentation Cardiology Progress Note Subjective Subjective: Kimmy Mcarthur is a 78 y.o. male with history of coronary artery disease, was transferred from outside facility due to episode of A-fib with RVR converted to sinus rhythm, patient also noticed recent episodes of chest pain with exertion, troponin was slightly elevated peaked at 1.2, no acute events overnight no new complaints patient remains in sinus rhythm and feels fine Objective Objective: Patient Vitals for the past 24 hrs: BP Temp Temp src Pulse Resp SpO2 Weight 10/02/23 0800 163/56 36.3 ???C (97.3 ???F) Temporal 64 10 96 % -- 10/02/23 0407 -- -- -- -- -- -- 77 kg (169 lb 12.8 oz) 10/02/23 0400 153/71 36.4 ???C (97.6 ???F) Temporal 54 17 95 % -- 10/02/23 0000 146/72 -- -- 50 19 94 % -- 10/01/23 2000 147/66 36.4 ???C (97.6 ???F) Temporal 50 20 98 % -- 10/01/23 1600 128/54 36.5 ???C (97.7 ???F) Temporal (!) 49 21 99 % -- 10/01/23 1240 116/65 36.4 ???C (97.5 ???F) Temporal (!) 46 19 96 % -- Physical Examination: GENERAL: AOx3, in no acute distress. HEAD: Atraumatic, normocephalic. EYES: ESCOBAR, EOMI. NECK: No JVD present. CARDIAC: RRR. No murmur, rubs, or gallops. RESPIRATORY: CTAB, no increased effort of breathing. ABDOMEN: Soft, nontender, nondistended. EXTREMITIES: No lower extremity edema, peripheral pulses are 2+ bilaterally. NEURO: No focal deficits Relevant Lab Results Encounter Date: 09/30/23 ECG 12 lead Result Value Ventricular Rate 60 Atrial Rate 59 DE Interval 138 QRS DURATION 116 QT Interval 452 QTC CALCULATION(BAZETT) 452 P [place] 72 R-[place] 62 T Wave [place] -14 Impression Sinus bradycardia with Premature atrial complexes Possible Inferior infarct (cited on or before 07-JAN-2005) Abnormal ECG When compared with ECG of 05-NERI-2024 18:16, (unconfirmed) Premature atrial complexes are now Present Confirmed by Wan MATHIS, CECILIA Garcia ([id number]) on 10/01/2023 12:21:12 PM Lab Results Component Value Date TROPONINI 0.55 (HH) 10/01/2023 Transesophageal echo (HARMONY) Result Date: 02/28/2023 1 [facility] [address] [place] [address] [phone] (fax) Transesophageal Echocardiogram-[facility] Name: KIMMY MCARTHUR Study Date: 02/28/2023 09:41 AM B/P: 149 mmHg/58 mmHg HR: Date of : 1945 Location: [facility] Height: 72 in. Age: 77 year(s) Patient Room: Weight: 156 lb. Gender: Male Patient Status: OutPt BSA: 1.92 m2 Indication: Aortic Valve Stenosis Examination: HARMONY/Limited Doppler/CFI, 3D images Image Quality: Good Patient Consent: Informed, written consent was obtained for the procedure Exam Location: A HARMONY was performed in the [facility] without complications Anesthesia Pharyngeal anesthesia with viscous Lidocaine Conclusions [...] The aortic valve is normal. Aorta: Moderate atherosclerotic plaque is seen in the aorta. Medications Date Time Name Route Form Dose Units Ordered By Given By Comment 02/28/2023 10:41 AM Midazolam HCL (Versed) 6 milligrams 02/28/2023 10:41 AM Fentanyl (Opiates) 50 micrograms Measurements Left Ventricle Label Value Normal Value LVEF visual 55 % Valvular Assessment LVOT 0.7 - 1.1 m/sec Aortic Valve 1.0 - 1.7 m/sec Mitral Valve 0.6 - 1.3 m/sec Tricuspid Valve 0.3 - 0.7 m/sec Pulmonic Valve 0.6 - 0.9 m/sec Regurgitation No Mod No Findings Left Ventricle: The left ventricle is normal size. Global left ventricular systolic function is normal. EF evaluated by visual assessment. The EF is 55 % visually. Left ventricular wall thickness is normal. No regional wall motion abnormality. Right Ventricle: The right ventricle appears normal in size. Right ventricular systolic function appears normal. Left Atrium: The left atrium is normal in size. Left Atrium Appendage: Normal left atrial appendage, no thrombus seen. IAS: No intracardiac shunt by agitated saline injections. Right Atri (more content not included)... [facility] 10-01-2023 Note Hospital Medicine Daily Progress Note - 10/01/2023 10:36 AM; Room: [address] [place] [address] Admission: 09/30/2023 2:57 PM; Length of stay: 1 days THE HOSPITALIST TEAM PREFERS TO USE [employer] FOR COMMUNICATION 7AM-7PM. IF I DO NOT RESPOND WITHIN 15 MINUTES, PLEASE PAGE ME/CALL THROUGH THE MEDICAL RECORD CONSULTANT. FROM 7PM-7AM, PLEASE PAGE [phone](COVR) Code Status: Full Code Barriers to Discharge: coronary angiogram and echocardiogram planned on Tuesday Expected Discharge Date: 3 to 4 days Discharge Destination: home Overview Patient is seen for evaluation and management of atrial fibrillation with rapid ventricular response. Subjective patient was seen and evaluated at bedside. Denies headache vision changes chest pain shortness of breath cough sputum nausea vomiting. Physical Exam Visit Vitals BP 109/55 (BP Location: Left arm, Patient Position: Sitting) Pulse 69 Temp 36.3 ???C (97.3 ???F) (Temporal) Resp 20 Intake/Output Summary (Last 24 hours) at 10/01/2023 1036 Last data filed at 10/01/2023 0800 Gross per 24 hour Intake 533.86 ml Output 1050 ml Net -516.14 ml Estimated body mass index is 23.19 kg/m??? as calculated from the following: Height as of this encounter: 1.829 m (6' 0.01 ). Weight as of this encounter: 77.6 kg (171 lb). GENERAL: The patient is well developed and nontoxic. Sittng in bed. No apparent distress. VITAL SIGNS: Reviewed in the EMR. HEENT: Nonicteric sclerae, EOMI. Oropharynx clear. Moist mucous membranes. Conjunctivae appear well perfused. HEART: Regular rate and rhythm without murmurs. occasional added beats LUNGS: Clear to auscultation bilaterally. No wheezing and crackles. ABDOMEN: Soft, positive bowel sounds, nontender, no organomegaly. SKIN: No rash, no excessive bruising, petechiae, or purpura. NEUROLOGIC: Cranial nerves II-XII intact without motor/sensory deficit. MSK: No lower extremity edema Active Inpatient Problems Principal Problem: A-fib (CMS/HCC) history of coronary artery disease Assessment and Plan - continue amiodarone and heparin - cardiology planning echo and coronary angiography on Tuesday - patient has some PVCs otherwise is in normal sinus rhythm - Telemetry, vitals per unit protocol, continuous pulse ox, Q4 I&O's - continue heparin drip for A-fib with RVR [id number] score at least 4 - resume home medications once med rec is complete IV heparin Scheduled Meds aspirin, 81 mg, oral, Daily atorvastatin, 80 mg, oral, Nightly clopidogrel, 75 mg, oral, Daily insulin lispro, 0-13 Units, subcutaneous, With meals & nightly metoprolol tartrate, 25 mg, oral, BID tamsulosin, 0.4 mg, oral, Daily amiodarone, 1 mg/min, Last Rate: 1 mg/min (10/01/23 0923) heparin, 0-28 Units/kg/hr, Last Rate: 16 Units/kg/hr (10/01/23 0730) Pertinent Investigations Hematology: Results from last 7 days Lab Units 10/01/23 0548 09/30/23 2356 WBC AUTO 10*3/uL 6.46 5.43 HEMOGLOBIN g/dL 12.2* 12.2* HEMATOCRIT % 36.5* 37.0* MCV fL 88.8 89.2 PLATELETS AUTO 10*3/uL 141* 135* Chemistry: Results from last 7 days Lab Units 10/01/23 0548 09/30/23 2356 SODIUM mmol/L 137 137 POTASSIUM mmol/L 4.1 4.3 CHLORIDE mmol/L 105 103 CO2 mmol/L 25 27 BUN mg/dL 18 20 CREATININE mg/dL 0.82 0.96 GLUCOSE mg/dL 154* 253* MAGNESIUM mg/dL -- 2.0 CALCIUM mg/dL 8.7 8.9 PHOSPHORUS mg/dL -- 4.3 Results from last 7 days Lab Units 09/30/23 2356 AST U/L 13 ALT U/L 11 ALK PHOS U/L 66 BILIRUBIN TOTAL mg/dL 0.6 Results from last 7 days Lab Units 10/01/23 0700 09/30/23201609/30/23 1855 POCT GLUCOSE mg/dL 162* 214* 192* Historical Values: (Includes values prior to this admission) Lab Results Component Value Date HDL 37 02/27/2020 LDL 52 02/27/2020 LDL 80 02/27/2020 No results found for: [id number] , IRON , TIBC , C3 , C4 , HO , CANCA , ASO , PSA , CEA , CA125 , CA199 , AFP , CA153 Imaging ECG 12 lead Sinus bradycardia with Premature atrial complexes Possible Inferior infarct (cited on or before 07-JAN-2005) Abnormal ECG When compared with ECG of 30-SEP-2023 18:16, (unconfirmed) Premature atrial complexes are now Present Discharge Planning Signed Nixon Kent MD [facility] 10/01/2023 10:36 AM [facility] 10-01-2023 Note Attestation signed by Cecilia Mathis MD at 10/01/2023 1:01 PM GC: I saw this patient. I personally performed the critical/menjivar portions that determines the level of service. I was directly involved in the management and treatment plan of the patient. I reviewed fellow Dr. Rainey 's note and agree with the documentation Cardiology Progress Note Subjective Subjective: Kimmy Mcarthur is a 78 y.o. male with history of coronary artery disease, was transferred from outside facility due to episode of A-fib with RVR converted to sinus rhythm, patient also noticed recent episodes of chest pain with exertion, troponin was slightly elevated peaked at 1.2, no acute events overnight no new complaints patient remains in sinus rhythm and feels fine Objective Objective: Patient Vitals for the past 24 hrs: BP Temp Temp src Pulse Resp SpO2 Height Weight 10/01/23 0820 109/55 36.3 ???C (97.3 ???F) Temporal 69 20 98 % -- -- 10/01/23 0441 -- -- -- -- -- -- -- 77.6 kg (171 lb) 10/01/23 0400 125/53 36.3 ???C (97.4 ???F) Temporal 60 15 93 % -- -- 09/30/23 2000 105/50 36.4 ???C (97.5 ???F) Temporal 51 14 95 % -- -- 09/30/23 1800 -- -- -- 55 20 97 % -- -- 09/30/23 1700 129/56 -- -- 65 20 97 % -- -- 09/30/23 1600 132/58 36.2 ???C (97.2 ???F) Temporal 71 17 99 % -- -- 09/30/23 1516 -- 36.2 ???C (97.2 ???F) Temporal -- -- -- -- 76.2 kg (168 lb) 09/30/23 1513 134/60 -- -- 54 15 98 % 1.829 m (6' 0.01 ) -- Physical Examination: GENERAL: AOx3, in no acute distress. HEAD: Atraumatic, normocephalic. EYES: ESCOBAR, EOMI. NECK: No JVD present. CARDIAC: RRR. No murmur, rubs, or gallops. RESPIRATORY: CTAB, no increased effort of breathing. ABDOMEN: Soft, nontender, nondistended. EXTREMITIES: No lower extremity edema, peripheral pulses are 2+ bilaterally. NEURO: No focal deficits Relevant Lab Results Encounter Date: 09/30/23 ECG 12 lead Result Value Ventricular Rate 60 Atrial Rate 59 DE Interval 138 QRS DURATION 116 QT Interval 452 QTC CALCULATION(BAZETT) 452 P [place] 72 R-[place] 62 T Wave [place] -14 Impression Sinus bradycardia with Premature atrial complexes Possible Inferior infarct (cited on or before 07-JAN-2005) Abnormal ECG When compared with ECG of 30-SEP-2023 18:16, (unconfirmed) Premature atrial complexes are now Present Lab Results Component Value Date TROPONINI 0.55 (HH) 10/01/2023 Transesophageal echo (HARMONY) Result Date: 02/28/2023 1 [facility] [address] [place], [place] [id number] (fax) Transesophageal Echocardiogram-[facility] Name: KIMMY MCARTHUR Study Date: 02/28/2023 09:41 AM B/P: 149 mmHg/58 mmHg HR: Date of : 1945 Location: [facility] Height: 72 in. Age: 77 year(s) Patient Room: Weight: 156 lb. Gender: Male Patient Status: OutPt BSA: 1.92 m2 Indication: Aortic Valve Stenosis Examination: HARMONY/Limited Doppler/CFI, 3D images Image Quality: Good Patient Consent: Informed, written consent was obtained for the procedure Exam Location: A HARMONY was performed in the [facility] without complications Anesthesia Pharyngeal anesthesia with viscous Lidocaine Conclusions [...] The aortic valve is normal. Aorta: Moderate atherosclerotic plaque is seen in the aorta. Medications Date Time Name Route Form Dose Units Ordered By Given By Comment 02/28/2023 10:41 AM Midazolam HCL (Versed) 6 milligrams 02/28/2023 10:41 AM Fentanyl (Opiates) 50 micrograms Measurements Left Ventricle Label Value Normal Value LVEF visual 55 % Valvular Assessment LVOT 0.7 - 1.1 m/sec Aortic Valve 1.0 - 1.7 m/sec Mitral Valve 0.6 - 1.3 m/sec Tricuspid Valve 0.3 - 0.7 m/sec Pulmonic Valve 0.6 - 0.9 m/sec Regurgitation No Mod No Findings Left Ventricle: The left ventricle is normal size. Global left ventricular systolic function is normal. EF evaluated by visual assessment. The EF is 55 % visually. Left ventricular wall thickness is normal. No regional wall motion abnormality. Right Ventricle: The right ventricle appears normal in size. Right ventricular systolic function appears normal. Left Atrium: The left atrium is normal in size. Left Atrium Appendage: Normal left atrial appendage, no thrombus seen. IAS: No in (more content not included)... [facility] 09-30-2023 Note Hospital Medicine History and Physical 09/30/2023 6:16 PM THE HOSPITALIST TEAM PREFERS TO USE [employer] FOR COMMUNICATION 7AM-7PM. IF I DO NOT RESPOND WITHIN 15 MINUTES, PLEASE PAGE ME/CALL THROUGH THE MEDICAL RECORD CONSULTANT. FROM 7PM-7AM, PLEASE PAGE [phone](COVR). SUBJECTIVE: Chief Complaint atrial fibrillation with rapid ventricular response History of Present Illness Kimmy Mcarthur is a 78 y.o. male with a past medical history of coronary artery disease peripheral arterial disease balloon angioplasty of RCA stent in February 2023. Patient presented to outside facility with chest discomfort, was found to have A-fib with RVR, his heart rate was in the 150s and his troponin was elevated at 100. Patient was given Cardizem, and he converted to sinus rhythm. Outside ER spoke with Dr. Velez from cardiology who wanted the patient transferred to [facility] for further cardiac workup. Chest pain started around 6 AM with chest pressure. Patient is on aspirin and Plavix. Currently he is on heparin drip as well. Patient has been having intermittent palpitation over the last week. Allergy saw the patient, started on amiodarone, recommended continuing Plavix and heparin drip Past Medical History Past Medical History: Diagnosis Date Carotid artery disorder (CMS/HCC) Coronary artery disease Diabetes mellitus (CMS/HCC) Heart valve disease Hypertension PAD (peripheral artery disease) (CMS/HCC) Past Surgical History Past Surgical History: Procedure Laterality Date CARDIAC CATHETERIZATION CAROTID ENDARTERECTOMY CATARACT EXTRACTION CHOLECYSTECTOMY CORONARY STENT PLACEMENT CT AORTA AND BILATERAL ILIOFEMORAL RUNOFF ANGIOGRAM W AND/OR WO IV CONTRAST 02/11/2020 CT AORTA AND BILATERAL ILIOFEMORAL RUNOFF ANGIOGRAM W AND/OR WO IV CONTRAST TAVERA CONVERSION CT NECK ANGIO W AND WO IV CONTRAST 03/08/2021 CT NECK ANGIO W AND WO IV CONTRAST TAVERA CONVERSION SHOULDER SURGERY VASCULAR SURGERY Social History Social History Socioeconomic History Marital status: Spouse name: Not on file Number of children: Not on file Years of education: Not on file Highest education level: Not on file Occupational History Not on file Tobacco Use Smoking status: Former Types: Cigarettes Quit date: 2019 Years since quittin.5 Passive exposure: Past (As a kid) Smokeless tobacco: Never Substance and Sexual Activity Alcohol use: Yes Comment: occasional Drug use: Never Sexual activity: Not on file Other Topics Concern Not on file Social History Narrative Not on file Social Determinants of Health Financial Resource Strain: Low Risk (09/30/2023) Overall Financial Resource Strain (CARDIA) Difficulty of Paying Living Expenses: Not hard at all Food Insecurity: No Food Insecurity (09/30/2023) Hunger Vital Sign Worried About Running Out of Food in the Last Year: Never true Ran Out of Food in the Last Year: Not on file Transportation Needs: No Transportation Needs (09/30/2023) Transportation Lack of Transportation (Medical): No Lack of Transportation (Non-Medical): Not on file Physical Activity: Not on file Stress: Not on file Social Connections: Not on file Intimate Partner Violence: Unknown (09/30/2023) Humiliation, Afraid, Rape, and Kick questionnaire Fear of Current or Ex-Partner: No Emotionally Abused: Not on file Physically Abused: Not on file Sexually Abused: Not on file Housing Stability: Low Risk (09/30/2023) Housing Stability Vital Sign Unable to Pay for Housing in the Last Year: Not on file Number of Places Lived in the Last Year: Not on file Unstable Housing in the Last Year: No Family History family history includes Cancer in his father; Diabetes in his father. Allergies has No Known Allergies. Prior to Admission Medications Medications Prior to Admission Medication Sig Dispense Refill Last Dose aspirin 81 mg EC tablet Take 81 mg by mouth in the morning. 09/29/2023 atorvastatin (Lipitor) 80 mg tablet Take 1 tablet (80 mg) by mouth at bedtime. 90 tablet 3 09/29/2023 carvedilol (Coreg) 12.5 mg tablet Take 1 tablet (12.5 mg) by mouth with breakfast and with evening meal. 180 tablet 3 09/29/2023 clopidogrel (Plavix) 75 mg tablet Take 1 tablet (75 mg) by mouth once daily as directed. 90 tablet 3 09/29/2023 dapagliflozin propanediol (Farxiga) 10 mg Take 10 mg by mouth in the morning. 09/29/2023 ferrous sulfate 325 (65 Fe) MG tablet FeroSul 325 mg (65 mg iron) tablet TAKE 1 TABLET BY MOUTH TWICE DAILY 09/29/2023 insulin detemir (Levemir FlexPen) 100 unit/mL (3 mL) pen 35 Units at bedtime. 09/29/2023 metFORMIN (Glucophage) 1,000 mg tablet Take 1,000 mg by mouth with breakfast. ramipril (Altace) 5 mg capsule Take 1 capsule (5 mg) by mouth once daily as directed. 90 capsule 3 09/29/2023 tamsulosin (Flomax) 0.4 mg 24 hr capsule Take 0.4 mg by mouth in the morning. 09/29/2023 Review of System 12 Point ROS was obtained and is negative except for the pe (more content not included)... [facility] 07-11-2023 Hospital Discharge instructions Patient Education 07/11/2023 [...] Follow these instructions at home: Medicines Take [id number] and prescription medicines only as told by [...] provider. Document Revised: 06/10/2021 Document Reviewed: 06/10/2021 [employer] Patient Education 2022 [employer]. Follow Up Care 06/18/2022 10:46:56 With:Chris QUINTANA, GEORGE Mitchell, [facility] Address: When:Within 1 Year(s) [facility] 04-18-2023 Note [facility] Cardiology Clinic Note Chief Complaint: Patient here for follow up heart cath w/ PCI done 02/28/2023. Still denies chest pain and SOB. Doing well. HPI: Kimmy Mcarthur is a 77 y.o. male With [...] ischemia EF of 52% Normal exercise Transesophageal Echocardiogram-[facility] Name: KIMMY MCARTHUR Study Date: 02/28/2023 09:41 AM B/P: 149 mmHg/58 mmHg HR: Date of : 1945 Location: [facility] Height: 72 in. Age: 77 year(s) Patient Room : Weight: 156 lb. Gender: Male Patient Status: OutPt BSA: 1.92 m2 Indication: Aortic Valve Stenosis Examination: HARMONY/Limited Doppler/CFI, 3D images Image Quality: Good Patient Consent: Informed, written consent was obtained for the procedure s p @ c 3 Exam Location: A HARMONY was performed in the [facility] without complications s p @ c 3 [...] Aorta: Moderate atherosc (more content not included)... [facility] 02-28-2023 Note Cardiovascular Labor atory Report [...] dual antiplatelet therapy, moderate intensity statin therapy, beta-cesilia +/- an angiotensin-converting enzyme inhibitor/receptor cesilia He will need serial monitoring for his mitral regurgitation which was found to be moderate by transesophageal echocardiography Follow-up with Dr. Campo in the [place] office in the next 1 to 2 [...] left radial artery was obtained. A 6 Japanese glide sheath was inserted without difficulty. Bilateral selective coronary angiography was performed using JR 4.0 and JL 4.0 catheters. After reviewing the images, it was elected to proceed with an interventional procedure. A 6 Japanese JR4 guide catheter with sideholes was advanced [...] a prior pseudoaneurys (more content not included)... [facility] 12-29-2022 Note [facility] Cardiology Clinic Note Chief Complaint: Patient here for 4 mo follow up CAD, mitral valve regurgitation, and hypertension. He had echo and labs last month. Still denies chest pain, SOB, and palpitations. His lightheadedness remains unchanged. HPI: Kimmy Mcarthur is a 77 y.o. male With [...] antiplatelet therapy, high intensity statin therapy, a beta-cesilia and an angiotensin-converting enzyme inhibitor Given diabetes mellitus, he is appropriately on an SGLT2 inhibitor as well as a RAAS inhibitor Given abnormal echocardiogram with segmental wall motion abnormalities, and no recent ischemic evaluation (2019), recommended a Lexiscan stress test If abnormal, we (more content not included)... [facility] 06-16-2022 Hospital Discharge instructions Patient Education [...] urethra. Follow these instructions at home: Take gnvt-hsa-iupgjks and prescription medicines only as told by [...] 03/14/2006 Document Revised: 02/06/2019 Document Reviewed: 04/18/2017 [employer] Patient Education 2020 [employer]. Follow Up Care 06/18/2021 11:18:31 With:Chris QUINTANA, GEORGE Mitchell, URO Address: When: Unknown [facility] 06-18-2021 Hospital Discharge instructions Patient Education [...] 03/14/2006 Document Revised: 12/01/2018 Document Reviewed: 02/11/2017 [employer] Patient Education 2020 [employer]. 06/18/2021 11:19:47 Benign Prostatic Hyperplasia Benign Prostatic [...] urethra. Follow these instructions at home: Take fgal-tom-wzwtmvv and prescription medicines only as told by [...] 03/14/2006 Document Revised: 02/06/2019 Document Reviewed: 04/18/2017 [employer] Patient Education 2020 [employer]. Follow Up Care 06/12/2020 11:26:53 With:ZULMA QUINTANA, Carlitos Villar, URL Address: [address] [place] [phone] When:Within 1 Year(s) Comments:w/GHAZALA [facility] Evaluation + Plan note Future Appointments Appointment Date:06/18/2022 10:00:00 AM Scheduled Provider:Deja Perez MD Location:[facility] Appointment Type:URO Office Visit Diagnostic Tests PendingPSA Total 06/18/21 [facility] Evaluation + Plan note Future Appointments Appointment Date:06/23/2023 10:00:00 AM Scheduled Provider:Deja Perez MD Location:[facility] Appointment Type:URO Office Visit Diagnostic Tests PendingPSA Free & Total 06/18/22 [facility] Evaluation + Plan note Future Appointments Appointment Date:07/04/2024 10:45:00 AM Scheduled Provider:Deja Perez MD Location:[facility] Appointment Type:URO Office Visit Diagnostic Tests PendingPSA Screen, Total 07/11/23 [facility] course Narrative No data available for this section [facility] Progress note No data available for this section [facility] Summary Purpose Family History No Family History [...] section and content) DATE CREATED AUTHOR 03/08/2021 [facility] DATE CREATED AUTHOR AUTHOR'S ORGANIZ ATION 06/20/2022 [facility] DATE CREATED AUTHOR AUTHOR'S ORGANIZ ATION 07/15/2023 [facility] DATE CREATED AUTHOR AUTHOR'S ORGANIZ ATION 10/15/2023 [facility] EPIC DATE CREATED AUTHOR AUTHOR'S ORGANIZ ATION 10/15/2023 [facility] DATE CREATED AUTHOR AUTHOR'S ORGANIZ ATION 10/15/2023 [facility] Patient Care team informatio n (unrecognized section and content) 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 Relationship Specialty Start Date End Date Prabhjot Villatoro MD [address] [place] [id number] PCP - General Family Medicine 1/10/24 Marisol Boyce NP [address] [place] [phone] Nurse Practitioner Family Medicine 03/28/22 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 Relationship Specialty Start Date End Date Prabhjot Villatoro MD [address] [place] [phone] PCP - General [facility] 04/06/23 Marisol Boyce NP [address] [place] [phone] Nurse Practitioner [facility] 03/28/22 FOR RECORDS PERTAINING TO PATIENTS WHO [...] BE BASED ON THE PRIMARY CLINICAL RECORDS. [facility] [employer] [facility]. provides no warranty or guarantee of the accuracy or completeness of information in this document.
[2023-10-21 11:33] LABS: Anion Gap 11.6; BUN Creatinine Ratio 27.5; Calcium 8.9 mg/dL (8.5-10.1); Carbon Dioxide 27.7 mmol/L (21.0-32.0); Chloride 104 mmol/L (98-107); Estimated GFR (African America >60 (>=60); Estimated GFR (Non-African Ame >60 (>=60); Glucose 129 mg/dL (74-106); Potassium 4.3 mmol/L (3.5-5.1); Sodium 139 mmol/L (136-145)
[2023-10-21 11:46] LABS: Basophils Absolute Auto 0.1 10^3/uL (0.0-0.1); Basophils Percent Auto 0.7 % (0.2-2.0); Eosinophils Absolute Auto 0.3 10^3/uL (0.0-0.7); Eosinophils Percent Auto 3.3 % (0.9-7.0); Hematocrit 41.9 % (42.0-54.0); Hemoglobin 13.7 g/dL (14.0-18.0); Immature Granulocytes Abs Auto 0.04 10^3/uL (0.00-0.03); Immature Granulocytes Pct Auto 0.5 % (0.0-0.5); Lymphocytes Absolute Auto 1.9 10^3/uL (1.2-3.8); Lymphocytes Percent Auto 23.4 % (20.5-60.0); Mean Corpuscular HGB Conc 32.7 g/dL (29.9-35.2); Mean Corpuscular Hemoglobin 29.3 pg (25.9-34.0); Mean Corpuscular Volume 89.7 fL (80.0-94.0); Mean Platelet Volume 9.7 fL (9.5-13.5); Monocytes Absolute Auto 0.5 10^3/uL (0.3-0.8); Monocytes Percent Auto 6.1 % (1.7-12.0); Neutrophils Absolute Auto 5.3 10^3/uL (1.4-6.5); Platelet Count 214 10^3/uL (150-450); Red Blood Count 4.67 10^6/uL (4.70-6.10); Red Cell Distribution Width 13.2 % (11.0-15.0); White Blood Count 8.1 10^3/uL (4.0-11.0)
== END 2023-10-21 11:08 | disposition home or self-care (01) ==
LOC: LAB 11:09
PROVIDERS: PCP Nurse Practitioner; Visit Provider Hospitalist
DX: I25.118 Atherosclerotic heart disease of native coronary artery with other forms of angina pectoris (principal); I48.91 Unspecified atrial fibrillation
CPT/HCPCS: 36415; 80048; 85025

== ENCOUNTER 2023-12-09 08:27 | Outpatient (OUT) | payer MEDICARE, OTHER, SELFPAY ==
--- NOTE | 2023-12-09 | NM_ITS ---
Patient Name: KIMMY MCARTHUR MR#: [id number] : 1945 Exam Date: 12/09/2023 Ordering Doctor: DR Natasha Campo M.D. RADIOLOGY REPORT PROCEDURE: NM TONE PERF SPECT REST STR COMPARISON: NM TONE PERF SPECT REST STR, 01/12/2023. 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 NAGY . For more details please see separate cardiac stress test report. FINDINGS: QUALITY OF STUDY: PERFUSION DEFECT: LOCATION: Basal inferior. Mid-inferior. [place]. SIZE: Medium (3-4 segments). SEVERITY: Moderate. TYPE: Persistent. WALL MOTION: Mild hypokinesis: LV SIZE: Enlarged; EDV 135 mL. TID / TCD: None; 1.1 LVEF: Abnormal. Calculated EF 49%. SUMMARY: Myocardial perfusion imaging study has ABNORMAL findings. CONCLUSION: 1. Fixed defect inferior wall, RCA distribution with no redistribution to suggest reversible ischemia 2. Large left ventricle, EDV 135 milliliters 3. Low left ventricular ejection fraction of 49% 4. Pending exercise test results Dictated by: James Sorto MD on 12/09/2023 at 14:50 Approved by: James Sorto MD on 12/09/2023 at 14:53
[2023-12-09] MEDS: REGADENOSON 0.4 MG/5 ML SYRINGE IV (09:54)
== END 2023-12-09 08:28 | disposition home or self-care (01) ==
LOC: NM 08:27
PROVIDERS: PCP Nurse Practitioner; Visit Provider Internal Medicine Interventional Cardiology
DX: I25.10 Atherosclerotic heart disease of native coronary artery without angina pectoris (principal); I25.83 Coronary atherosclerosis due to lipid rich plaque; E78.5 Hyperlipidemia, unspecified
CPT/HCPCS: 78452; 93017; A9500; J2785

== ENCOUNTER 2023-12-12 14:00 | Outpatient (OUT) | payer MEDICARE, OTHER, SELFPAY ==
--- OUTSIDE RECORDS SUMMARY | 2023-12-13 10:25 | XMS_ITS | CCD ---
Author Organization [facility] ion [facility] Care Team Providers Care Outside Medical Sales Representative Name Role Phone MARISOL BOYCE Primary Care Physician Unavaila ble AICHHOLZ, COPIER TECHNICIAN MARISOL Admitting Unavailable AICHHOLZ, COPIER TECHNICIAN MARISOL Attending Unavailable AICHHOLZ, COPIER TECHNICIAN MARISOL Primary Care Unavailable AICHHOLZ, COPIER TECHNICIAN MARISOL Consulting Unavailable AICHHOLZ, COPIER TECHNICIAN MARISOL Admitting Unavailable AICHHOLZ, COPIER TECHNICIAN MARISOL Attending Unavailable AICHHOLZ, COPIER TECHNICIAN MARISOL Primary Care Unavailable AICHHOLZ, COPIER TECHNICIAN MARISOL Consulting Unavailable DR SANJAY REECE Consulting Unavailable ROSEANNA, MARCO Admitting Unavailable ROSEANNA, MARCO Attending Unavailable AICHHOLZ, COPIER TECHNICIAN MARISOL Primary Care Unavailable ROSEANNA, MARCO Consulting Unavailable AICHHOLZ, COPIER TECHNICIAN MARISOL Admitting Unavailable AICHHOLZ, COPIER TECHNICIAN MARISOL Attending Unavailable AICHHOLZ, COPIER TECHNICIAN MARISOL Primary Care Unavailable AICHHOLZ, COPIER TECHNICIAN MARISOL Consulting Unavailable FLOR, DWAIN Admitting Unavailable FLOR, DWAIN Attending Unavailable AICHHOLZ, COPIER TECHNICIAN MARISOL Primary Care Unavailable FLOR, DWAIN Consulting Unavailable Aichholz WASHER MACHINE, Marisol Unavailable Prabhjot Villatoro MD Primary Care Provider MARISOL BOYCE Primary Care Physician ELLA BECKER Attending Unavailable Deja Perez Attending Unavailable AICHHOLZ, MARISOL Attending Unavailable AICHHOLZ, MARISOL Attending Unavailable AICHHOLZ, MARISOL Attending Unavailable AICHHOLZ, MARISOL Attending Unavailable AICHHOLZ, MARISOL Attending Unavailable AILEEN JOHNSON Referring UnavailGEO Moya Referring Unavailable TWYLA POLANCO Admitting Unavailable CAPRI, DAVID T Consulting Unavailable DAVID FAROOQ T Attending Unavailable DOTTIE MAX Referring Unavailable ELIZABETH, AILEEN Tolbert Referring Unavailabl e ELTAHAWY, EHAB Referring Unavailable JN, Referring Unavailable KARLY, GUTIERREZ Referring Unavailable ELTAHAWY, EHAB Admitting Unavailable ELTAHAWY, EHAB Attending Unavailable ELIZABETH, AILEEN Tolbert Referring Unavailabl e KULAKOWSKI, AILEEN Tolbert Referring Unavailabl e ELTAHAWY, EHAB Attending Unavailable ELTAHAWY, EHAB Attending Unavailable ELTAHAWY, EHAB Attending Unavailable ELTAHAWY, EHAB Attending Unavailable JN, Attending Unavailable JN, Referring Unavailable ELTAHAWY, EHAB Referring Unavailable ELTAHAWY, EHAB Referring Unavailable KULAKOJOANN, AILEEN Tolbert Referring Unavailabl e KULAKOOTFKI, AILEEN Tolbert Referring Unavailabl e EUGENIO, ELLA E Referring Unavailable AICHHOLZ, MARISOL J Primary Care Unavailable AICHHOLZ, MARISOL J Referring Unavailable AICHHOLZ, MARISOL J Primary Care Unavailable AICHHOLZ, MARISOL J Referring Unavailable AICHHOLZ, MARISOL J Primary Care Unavailable ELTAHAWY, EHAB A Referring Unavailable AICHHOLZ, MARISOL J Primary Care Unavailable AICHHOLZ, MARISOL J Referring Unavailable AICHHOLZ, MARISOL J Primary Care Unavailable Medications Current Medications Medication Drug Class(es) [...] tablet (2 sources) Quinolone Antimicrobial Start: 03-13-20 take 1 mg by mouth every twelve hours Cipro 500 mg Tab mg tab(s), Oral, q12hr, Refills(s) 0 Start Date: 03/13/20 Status: Ordered clopidogrel 75 mg oral tablet (5 sources) P2Y12 Platelet Inhibitor Start: 03-12-20 End: 06-23-19 take 1 tablet by mouth in the morning clopidogrel (Plavix) 75 MG tablet Indications: 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 (CMS/HCC) , PAD [...] complication, with long-term current use of insulin ([facility]) Up to 50 units daily 15 each [...] Daily, # 90 cap(s), Refills(s) 3, Pharmacy: [id number], 77.8, kg, 06/18/22 9:54:00 EDT, Weight Dosing Start Date: 06/18/22 Status: Ordered Start: 06-18-2021 take 1 capsule by [facility] once daily tamsulosin 0.4 mg Cap 0.4 mg = 1 cap(s), Oral, Daily, # 90 cap(s), Refills(s) 3, Pharmacy: [facility] #[id number], 183, cm, 06/12/20 10:33:00 EDT, Height/Length Dosing, 84.5, kg, 06/12/20 10:33:00 EDT, Weight Dosing Start Date: 06/18/21 Status: Ordered take 1 capsule by [facility] every twenty-four hours at bedtime tamsulosin (Flomax) [...] hrs., # 10 tab(s), Refills(s) 5, Pharmacy: [facility] #[id number], 182, cm, 07/11/23 14:01:00 EDT, Height/Length Dosing, [...] 01-06-2022 03-12-2020 Chronic Disorders of lipid metabolism (7 sources) Hyperlipidemia; Translations: [Hyperlipidemia, unspecified] Onset: 06-19-2022 [...] Long-term current use of drug therapy; Translations: [[employer] (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 of antithrombotics/ant iplatelets] Onset: 06-18-2022 Episodic Other aftercare (3 sources) penitentiary (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 of insulin; Translations: [penitentiary (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 of insulin] Onset: 09-30-2023 Episodic Other and unspecified benign neoplasm (3 [...] conditions (not mental disorders or infectious disease) (4 sources) Encounter for screening for malignant neoplasm of prostate; Translations: [Screening for malignant neoplasm done] Onset: 02-09-2023 Episodic Other skin disorders (3 [...] Translations: [ABNORMAL WEIGHT LOSS] Onset: 01-09-2022 Episodic Residual codes; unclassified (1 source) Family history of malignant neoplasm of prostate; Translations: [Family history of malignant neoplasm of prostate] Onset: 07-06-2023 Episodic Results Test Name Value Interpretation Reference Range Facility LIVER PANELon 12-07-2023 Albumin [Mass/Vol] 4.0 g/dL Normal 3.2-5.3 [facility] Comment on above: Performed By: #### M ALBU #### [facility] ([id number]) [address] [place] [address], [address] [place] [address] ALP [Catalytic activity/Vol] 63 U/L Normal 39-130 [facility] Comment on above: Performed By: #### M ALBU #### [facility] ([id number]) [address], [address] [place] [address] ALT [Catalytic activity/Vol] 39 U/L Normal 0-40 [facility] Comment on above: Performed By: #### M ALBU #### [facility] ([id number]) [address], [address] [place] [address] AST [Catalytic activity/Vol] 18 U/L Normal 0-41 [facility] Comment on above: Performed By: #### M ALBU #### [facility] ([id number]) [address], [address] [place] [address] Bilirubin [Mass/Vol] 1.1 mg/dL Normal 0.3-1.2 [facility] Comment on above: Performed By: #### M ALBU #### [facility] ([id number]) [address], [address] [place] [address] Bilirubin.direct [Mass/Vol] 0.2 mg/dL Normal 0.0-0.4 [facility] Comment on above: Performed By: #### M ALBU #### [facility] ([id number]) [address], [address] [place] [address] Protein [Mass/Vol] 6.4 g/dL Normal 6.0-8.0 [facility] Comment on above: Performed By: #### M ALBU #### [facility] ([id number]) [address], [address] [place] [address] Lipid 1996 panelon 4 Cholesterol [Mass/Vol] 108 mg/dL Low 150-200 [facility] Comment on above: Performed By: #### M ALBU #### [facility] ([id number]) [address], [address] [place] [address] Cholesterol in HDL [Mass/Vol] 43 mg/dL Normal >39 [facility] Comment on above: Result Comment: HDL <40 mg/dL - High Risk HDL > or = 40mg/dL- Desirable HDL >60 mg/dL - Negative Risk Performed By: #### M ALBU #### [facility] ([id number]) [address], [address] [place] [address] Cholesterol in LDL [Mass/Vol] 46 mg/dL Normal <130 [facility] Comment on above: Result Comment: LDL <100 mg/dL - Desirable LDL >160 mg/dL - High Risk Performed By: #### M ALBU #### [facility] ([id number]) [address], [address] [place] [address] Cholesterol in VLDL [Mass/Vol] 19 mg/dL Normal 0-30 [facility] Comment on above: Performed By: #### Brionna ALBU #### [facility] ([id number]) [address], [address] [place] [address] CHOLESTEROL:HDL 2.5 Normal 1.0-5.0 [facility] Comment on above: Performed By: #### Brionna ALBU #### [facility] ([id number]) [address], [address] [place] [address] Triglyceride [Mass/Vol] 95 mg/dL Normal 27-150 [facility] Comment on above: Performed By: #### Brionna ALBU #### [facility] ([id number]) [address], [address] [place] [address] BASIC METABOLIC PANLon 11-28 Anion gap [Moles/Vol] 8 mmol/L Normal 5-15 [facility] Comment on above: Performed By: #### M ALBU #### [facility] ([id number]) [address], [address] [place] [address] Calcium [Mass/Vol] 9.2 mg/dL Normal 8.5-10.5 [facility] Comment on above: Performed By: #### M ALBU #### [facility] ([id number]) [address], [facility] [address] [place] [address] Chloride [Moles/Vol] 104 mmol/L Normal 98-109 [facility] Comment on above: Performed By: #### M ALBU #### [facility] ([id number]) [address], [address] [place] [address] CO2 [Moles/Vol] 27 mmol/L Normal 22-32 [facility] Comment on above: Performed By: #### M ALBU #### [facility] ([id number]) [address], [facility] [address] [place] [address] Creatinine [Mass/Vol] 1.01 mg/dL Normal 0.60-1.30 [facility] Comment on above: Result Comment: METH OD TRACEABLE TO IDMS STANDARD Performed By: #### M ALBU #### [facility] ([id number]) [address], [address] [place] [address] GFR/1.73 sq M.predicted among non-blacks MDRD (S/P/Bld) [Vol rate/Area] 77 mL/min/{1.73_m2} Normal >59 [facility] Comment on above: Result Comment: Reported eGFR is based on the CKD-EPI 2020 equation that does not use a race coefficient. Performed By: #### M ALBU #### [facility] ([id number]) [address], [address] [place] [address] Glucose [Mass/Vol] 187 mg/dL High 65-99 [facility] Comment on above: Performed By: #### M ALBU #### [facility] ([id number]) [address], [address] [place] [address] Potassium [Moles/Vol] 4.2 mmol/L Normal 3.5-5.0 [facility] Comment on above: Performed By: #### M ALBU #### [facility] ([id number]) [address], [address] [place] [address] Sodium [Moles/Vol] 139 mmol/L Normal 134-146 [facility] Comment on above: Performed By: #### M ALBU #### [facility] ([id number]) [address], [address] [place] [address] Urea nitrogen [Mass/Vol] 22 mg/dL Normal 5-27 [facility] Comment on above: Performed By: #### M ALBU #### [facility] ([id number]) [address], [address] [place] [address] HGB A1C (GLYCO-HGB)on 2023 Glucose [Mass/Vol] 192 mg/dL Normal [facility] Comment on above: Performed By: #### M ALBU #### [facility] ([id number]) [address], [address] [place] [address] HbA1c (Bld) [Mass fraction] 8.3 % High 4.4-5.6 [facility] Comment on above: Result Comment: NOTE ADA Guidelines Result HgbA1c Normal : less than 5.7 % Prediabetes : 5.7 % to 6.4 % Diabetes : > 6.4 % Use with caution in patients with abnormal hemoglobin variants as the half-life of red blood cells and in vivo glycation rates are affected. Performed By: #### M ZINAU #### [facility] ([id number]) [address] [facility], [address] [place] [address] Office Visiton 11-29-2023 Follow-up visit [id number] Kimmy Mcarthur 1945 M Date Provider Department Center 11/29/2023 [facility]HA [facility] Family History Problem Relation Age of Onset Cancer Father Diabetes Father Family Status - Relation Status Age at Father Level of Service:09635 [place] OFFICE/OUTPATIENT ESTABLISHED MOD MDM 30 MIN Normal [facility] Prostate specific Ag [Mass/V ol]on 11-29-2023 PROSTATIC SPEC ANT 3.12 ng/mL Normal 0.00-4.00 [facility] Comment on above: Result Comment: The method used for this test is Magali G5 DXI chemiluminescent immunoassay. Values obtained by different assay methods cannot be used interchangeably. Performed By: #### M MARTINEZ #### [facility] ([id number]) [address] [facility], [address] [place] [address] 36on 11-14-2023 36 Spoke with patients per Dr. Polanco gave Mr. Mcarthur telemed visit for 12/08/2023 at 1pm. Also gave patient our office number and told her to call us Tuesday if she had not heard anything from Cardiology from Dr. Twyla Polanco as both Discussed pci plan for patient versus surgical intervention. Normal [facility] MRI CARDIAC MORPHOLOGY AND F UNCTION W AND WO IV CONTRASTon 11-07-2023 MRI CARDIAC MORPHOLOGY AND FUNCTION W AND WO IV CONTRAST STUDY: Cardiac MRI without and with contrast CLINICAL HISTORY: Nonrheumatic mitral valve regurgitation. Left ventricular thrombus. Nonischemic cardiomyopathy. COMPARISON: 10/06/2023 TECHNIQUE: Multiplanar multisequence gated cardiac MRI was performed with steady state free precession imaging and pre- and postcontrast delayed myocardial enhancement views obtained prior to and following the uneventful ministration of intravenous gadolinium contrast. FINDINGS: Globally diminished left ventricular systolic function. 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 There is no definitive filling defect or thrombus within the aneurysm. Left ventricular quantitative parameters as follows: Ejection Fraction 46% (normal: male = 49-79 %; female = 52-79 %). End Diastolic Diameter is 56 mm (normal: Male: 42 -62 mm, female 39-59 mm). Stroke Volume 80 mL. End Diastolic Volume 175 mL (normal: male = 95-215 ml; female = 78-1 67 ml). End Systolic Volume 95 mL (normal: male = 25-85 ml, female = 21-64 ml). Anteroseptal wall thickness: 1.6 cm. Posterolateral wall thickness: 0.9 cm. There is transmural delayed enhancement of the basal inferior lateral wall aneurysm. There is small filling defect within the aneurysmal segment measuring 6 to 7 mm is may represent a small amount of thrombus which is decreased from the prior examination. Mild dilatation of the left atrium. There is mild to moderate mitral regurgitation. Mild dilatation of the right atrium. There is mild tricuspid regurgitation. Normal wall motion, function and size. No pleural or pericardial effusion. Extracardiac Findings: Thoracic aorta and pulmonary artery are normal in caliber. IMPRESSION: Impression: 1. Mildly diminished left ventricular systolic function with mild akinesis of the basal inferolateral wall. 2. 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 There is a small filling defect within the pseudoaneurysm adherent to the inferior wall which may represent a small adherent thrombus measuring 6 to 7 mm which is decreased from the prior examination. Electronically signed: Sabino Chapman. Not Vlwinnie Invalid Interpretation Code [facility] Office Visiton 10-13-2023 Follow-up visit [id number] Kimmy Mcarthur 1945 M Date Provider Department Center 10/13/2023 [facility] Family History Problem Relation Age of Onset Cancer Father Diabetes Father Family Status - Relation Status Age at Father Level of Service:87841 [place] OFFICE/OUTPATIENT ESTABLISHED LOW MDM 20 MIN Normal [facility] XR CHEST 2 VWSon 10-11-2023 XR [...] Valentin MD on 10/11/2023 12:16 PM Normal [facility] 30on 10-07-2023 30 The patient is Moderately Stable - Low risk of patient condition declining or worsening The patient's goals for the shift include Comfort The clinical goals for the shift include VSS, safety Normal [facility] BASIC METABOLIC PANELon 09-25 Anion gap [Moles/Vol] 12 mmol/L Normal 7-20 [facility] Comment on above: Performed By: #### L [id number] #### [facility] ([facility]AKER) [address] [facility] [place] [address] Calcium [Mass/Vol] 8.9 mg/dL Normal 8.6-10.3 [facility] Comment on above: Performed By: #### L [id number] #### [facility] (BEAKER) [address] [facility] [place] [address] Chloride [Moles/Vol] 105 mmol/L Normal 98-107 [facility] Comment on above: Performed By: #### L [id number] #### [facility] ([facility]ER) [address] [place] [address] CO2 [Moles/Vol] 27 mmol/L Normal 21-31 [facility] Comment on above: Performed By: #### L [id number] #### [facility] (BEAKER) [address] [place] [address] Creatinine [Mass/Vol] 0.92 mg/dL Normal 0.70-1.30 [facility] Comment on above: Performed By: #### L [id number] #### [facility] (BEAKER) [address] [place] [address] GLOMERULAR FILTRATION RATE ML/MIN/1.73 SQ M.PREDICTED 85.7 mL/min/1.73m*2 Normal >60.0 [facility] Comment on above: Result Comment: The [facility]???s estimated glomerular filtration rate (eGFR) will [...] group of individuals. Performed By: #### L [id number] #### [facility] ([facility]) [address] [place] [address] Glucose [Mass/Vol] 108 mg/dL High 70-100 [facility] Comment on above: Performed By: #### L [id number] #### [facility] ([facility]) [address] [place] [address] Potassium [Moles/Vol] 4.0 mmol/L Normal 3.5-5.1 [facility] Comment on above: Performed By: #### L [id number] #### [facility] ([facility]) [address] [place] [address] Sodium [Moles/Vol] 140 mmol/L Normal 136-145 [facility] Comment on above: Performed By: #### L [id number] #### [facility] ([facility]) [address] [place] [address] Urea nitrogen [Mass/Vol] 18 mg/dL Normal 7-25 [facility] Comment on above: Performed By: #### L [id number] #### [facility] ([facility]) [address] [place] [address] UREA NITROGEN/CREATININE (MASS RATIO) IN SER/PLAS 19.6 Normal [facility] Comment on above: Performed By: #### L [id number] #### [facility] ([facility]) [address] [place] [address] CBC WITH AUTO DIFFERENTIALon 10-07-2023 Basophils (Bld) [#/Vol] 0.04 10*3/uL Normal 0.00-0.20 [facility] Comment on above: Performed By: #### L [id number] #### [facility] [address] [place] [address] Basophils/100 WBC (Bld) 0.6 % Normal 0.0-1.0 [facility] Comment on above: Performed By: #### L [id number] #### [facility] ([facility]) [address] [place] [address] Eosinophils (Bld) [#/Vol] 0.21 10*3/uL Normal 0.00-0.50 [facility] Comment on above: Performed By: #### L [id number] #### [facility] ([facility]) [address] [place] [address] Eosinophils/100 WBC (Bld) 3.2 % Normal 0.0-6.0 [facility] Comment on above: Performed By: #### L [id number] #### [facility] ([facility]) [address] [place] [address] Erythrocyte distribution width (RBC) [Ratio] 13.4 % Normal 11.5-15.0 [facility] Comment on above: Performed By: #### L [id number] #### [facility] [address] [place] [address] ERYTHROCYTE MEAN CORPUSCULAR HEMOGLOBIN CONCENTRATION (G/DL) BY AUTOMATED 33.6 g/dL Normal 32.0-35.0 [facility] Comment on above: Performed By: #### L [id number] #### [facility] [address] [place] [address] Hematocrit (Bld) [Volume fraction] 34.8 % Low 39.0-55.0 [facility] Comment on above: Performed By: #### L [id number] #### [facility] [address] [place] [address] Hemoglobin (Bld) [Mass/Vol] 11.7 g/dL Low 13.0-17.0 [facility] Comment on above: Performed By: #### L [id number] #### [facility] ([facility]) [address] [place] [address] Immature granulocytes (Bld) [#/Vol] 0.03 10*3/uL Normal 0.00-0.20 [facility] Comment on above: Performed By: #### L [id number] #### [facility] ([facility]) [address] [place] [address] Immature granulocytes/100 WBC (Bld) 0.5 % Normal 0.0-1.0 [facility] Comment on above: Performed By: #### L [id number] #### [facility] ([facility]) [address] [place] [address] Lymphocytes (Bld) [#/Vol] 1.28 10*3/uL Normal 1.20-4.00 [facility] Comment on above: Performed By: #### L [id number] #### [facility] ([facility]) [address] [place] [address] Lymphocytes/100 WBC (Bld) 19.8 % Low 20.0-45.0 [facility] Comment on above: Performed By: #### L [id number] #### [facility] ([facility]) [address] [place] [address] MCH (RBC) [Entitic mass] 30.1 pg Normal 27.0-33.0 [facility] Comment on above: Performed By: #### L [id number] #### [facility] ([facility]) [address] [place] [address] MCV (RBC) [Entitic vol] 89.5 fL Normal 82.0-98.0 [facility] Comment on above: Performed By: #### L [id number] #### [facility] [address] [place] [address] Monocytes (Bld) [#/Vol] 0.61 10*3/uL Normal 0.10-1.00 [facility] Comment on above: Performed By: #### L [id number] #### [facility] (BEAKER) [address] [address] Monocytes/100 WBC (Bld) 9.4 % Normal 5.0-12.0 [facility] Comment on above: Performed By: #### L [id number] #### [facility] (BEAKER) [address] [place] [address] Neutrophils (Bld) [#/Vol] 4.30 10*3/uL Normal 1.60-7.60 [facility] Comment on above: Performed By: #### L [id number] #### [facility] ([facility]) [address] [address] Neutrophils/100 WBC (Bld) 66.5 % Normal 40.0-72.0 [facility] Comment on above: Performed By: #### L [id number] #### [facility] [address] [place] [address] NRBC (PER 100 WBCS) BY AUTOMATED COUNT 0.0 % Normal 0 [facility] Comment on above: Performed By: #### L [id number] #### [facility] (BEAKER) [address] [place] [address] PLATELETS (10*3/UL) IN BLOOD AUTOMATED COUNT 137 10*3/uL Low 150-400 [facility] Comment on above: Performed By: #### L [id number] #### [facility] ([facility]) [address] [place] [address] RBC (Bld) [#/Vol] 3.89 10*6/uL Low 4.20-5.70 [facility] Comment on above: Performed By: #### L [id number] #### [facility] ([facility]) [address] [place] [address] WBC (Bld) [#/Vol] 6.47 10*3/uL Normal 4.00-10.60 [facility] Comment on above: Performed By: #### L [id number] #### [facility] ([facility]) [address] [place] [address] POCT GLUCOSE METER UNSOLICIT ED RESULTSon 10-07-2023 Glucose [Mass/Vol] 242 mg/dL High 70-105 [facility] Comment on above: Order Comment: Waive d Testing in the ED is performed under the ED CLIA certificate #[id number]. Result Comment: [email or web address] Performed By: #### L [id number] #### [facility] ([facility]) [address] [place] [address] Glucose [Mass/Vol] 119 mg/dL High 70-105 [facility] Comment on above: Order Comment: Waive d Testing in the ED is performed under the ED CLIA certificate #[id number]. Result Comment: [email or web address] Performed By: #### L [id number] #### [facility] ([facility]) [address] [place] [address] 30on 10-06-2023 30 The patient is Moderately [...] comfort level Outcome: Progressing for sleep. Normal [facility] 30 Daily Case Managemen t Update [...] PT Recommendations: OT Recommendations: New Consults: Normal [facility] 30 The patient is Moderately Stable [...] or patient reports new pain . Normal [facility] ANTI-XA (HEPARIN LEVEL)on HEPARIN UNFRACTIONATED (U/ML) IN PPP BY CHROMOGENIC METHOD 0.55 IU/mL Normal 0.3-0.7 [facility] Comment on above: Result Comment: Erika roxaban and Apixaban will interfere with the anti Xa assay used to monitor UFH and LMWH. Performed By: #### L [id number] ####[facility] ([facility])[address] [place] [address] BASIC METABOLIC PANELon 09-25 Anion gap [Moles/Vol] 11 mmol/L Normal 7-20 [facility] Comment on above: Performed By: #### L [id number] #### [facility] ([facility]) [address] [place] [address] Calcium [Mass/Vol] 8.9 mg/dL Normal 8.6-10.3 [facility] Comment on above: Performed By: #### L [id number] #### [facility] ([facility]) [address] [place] [address] Chloride [Moles/Vol] 104 mmol/L Normal 98-107 [facility] Comment on above: Performed By: #### L [id number] #### [facility] ([facility]) [address] [place] [address] CO2 [Moles/Vol] 26 mmol/L Normal 21-31 [facility] Comment on above: Performed By: #### L [id number] #### [facility] ([facility]) [address] [place] [address] Creatinine [Mass/Vol] 0.91 mg/dL Normal 0.70-1.30 [facility] Comment on above: Performed By: #### L [id number] #### [facility] ([facility]) [address] [place] [address] GLOMERULAR FILTRATION RATE ML/MIN/1.73 SQ M.PREDICTED 86.8 mL/min/1.73m*2 Normal >60.0 [facility] Comment on above: Result Comment: [facility]???s estimated glomerular filtration rate (eGFR) will [...] group of individuals. Performed By: #### L [id number] #### [facility] ([facility]) [address] [place] [address] Glucose [Mass/Vol] 229 mg/dL High 70-100 [facility] Comment on above: Performed By: #### L [id number] #### [facility] ([facility]) [address] [place] [address] Potassium [Moles/Vol] 4.4 mmol/L Normal 3.5-5.1 [facility] Comment on above: Performed By: #### L [id number] #### [facility] [address] [place] [address] Sodium [Moles/Vol] 137 mmol/L Normal 136-145 [facility] Comment on above: Performed By: #### L [id number] #### [facility] ([facility]) [address] [place] [address] Urea nitrogen [Mass/Vol] 20 mg/dL Normal 7-25 [facility] Comment on above: Performed By: #### L [id number] #### [facility] ([facility]) [address] [place] [address] UREA NITROGEN/CREATININE (MASS RATIO) IN SER/PLAS 22.0 Normal [facility] Comment on above: Performed By: #### L [id number] #### [facility] ([facility]) [address] [place] [address] CBC WITH AUTO DIFFERENTIALon 10-06-2023 Basophils (Bld) [#/Vol] 0.04 10*3/uL Normal 0.00-0.20 [facility] Comment on above: Performed By: #### L [id number] #### [facility] ([facility]) [address] [place] [address] Basophils/100 WBC (Bld) 0.8 % Normal 0.0-1.0 [facility] Comment on above: Performed By: #### L [id number] #### [facility] [address] [place] [address] Eosinophils (Bld) [#/Vol] 0.26 10*3/uL Normal 0.00-0.50 [facility] Comment on above: Performed By: #### L [id number] #### [facility] [address] [place] [address] Eosinophils/100 WBC (Bld) 5.0 % Normal 0.0-6.0 [facility] Comment on above: Performed By: #### L [id number] #### [facility] [address] [place] [address] Erythrocyte distribution width (RBC) [Ratio] 13.3 % Normal 11.5-15.0 [facility] Comment on above: Performed By: #### L [id number] #### [facility] ([facility]) [address] [place] [address] ERYTHROCYTE MEAN CORPUSCULAR HEMOGLOBIN CONCENTRATION (G/DL) BY AUTOMATED 33.0 g/dL Normal 32.0-35.0 [facility] Comment on above: Performed By: #### L [id number] #### [facility] ([facility]) [address] [place] [address] Hematocrit (Bld) [Volume fraction] 34.9 % Low 39.0-55.0 [facility] Comment on above: Performed By: #### L [id number] #### [facility] ([facility]) [address] [place] [address] Hemoglobin (Bld) [Mass/Vol] 11.5 g/dL Low 13.0-17.0 [facility] Comment on above: Performed By: #### L [id number] #### [facility] ([facility]) [address] [place] [address] Immature granulocytes (Bld) [#/Vol] 0.03 10*3/uL Normal 0.00-0.20 [facility] Comment on above: Performed By: #### L [id number] #### [facility] ([facility]) [address] [place] [address] Immature granulocytes/100 WBC (Bld) 0.6 % Normal 0.0-1.0 [facility] Comment on above: Performed By: #### L [id number] #### [facility] ([facility]) [address] [place] [address] Lymphocytes (Bld) [#/Vol] 1.38 10*3/uL Normal 1.20-4.00 [facility] Comment on above: Performed By: #### L [id number] #### [facility] (BEAKER) [address] [place] [address] Lymphocytes/100 WBC (Bld) 26.6 % Normal 20.0-45.0 [facility] Comment on above: Performed By: #### L [id number] #### [facility] [address] [place] [address] MCH (RBC) [Entitic mass] 29.6 pg Normal 27.0-33.0 [facility] Comment on above: Performed By: #### L [id number] #### [facility] [address] [place] [address] MCV (RBC) [Entitic vol] 89.9 fL Normal 82.0-98.0 [facility] Comment on above: Performed By: #### L [id number] #### [facility] ([facility]) [address] [place] [address] Monocytes (Bld) [#/Vol] 0.45 10*3/uL Normal 0.10-1.00 [facility] Comment on above: Performed By: #### L [id number] #### [facility] ([facility]) [address] [place] [address] Monocytes/100 WBC (Bld) 8.7 % Normal 5.0-12.0 [facility] Comment on above: Performed By: #### L [id number] #### [facility] [address] [place] [address] Neutrophils (Bld) [#/Vol] 3.02 10*3/uL Normal 1.60-7.60 [facility] Comment on above: Performed By: #### L [id number] #### [facility] [address] [place] [address] Neutrophils/100 WBC (Bld) 58.3 % Normal 40.0-72.0 [facility] Comment on above: Performed By: #### L [id number] #### [facility] ([facility]AKER) [address] [place] [address] NRBC (PER 100 WBCS) BY AUTOMATED COUNT 0.0 % Normal 0 [facility] Comment on above: Performed By: #### L [id number] #### [facility] ([facility]) [address] [place] [address] PLATELETS (10*3/UL) IN BLOOD AUTOMATED COUNT 128 10*3/uL Low 150-400 [facility] Comment on above: Performed By: #### L [id number] #### [facility] ([facility]) [address] [place] [address] RBC (Bld) [#/Vol] 3.88 10*6/uL Low 4.20-5.70 [facility] Comment on above: Performed By: #### L [id number] #### [facility] ([facility]) [address] [place] [address] WBC (Bld) [#/Vol] 5.18 10*3/uL Normal 4.00-10.60 [facility] Comment on above: Performed By: #### L [id number] #### [facility] ([facility]) [address] [place] [address] MAGNESIUMon 10-06-2023 Magnesium [Mass/Vol] 1.7 mg/dL Low 1.9-2.7 [facility] Comment on above: Performed By: #### L [id number] #### [facility] ([facility]) [address] [place] [address] POCT GLUCOSE METER UNSOLICIT ED RESULTSon 10-06-2023 Glucose [Mass/Vol] 149 mg/dL High 70-105 [facility] Comment on above: Order Comment: Waive d Testing in the ED is performed under the ED CLIA certificate #[id number]. Result Comment: [email or web address] Performed By: #### L [id number] #### [facility] ([facility]) [address] [place] [address] Glucose [Mass/Vol] 124 mg/dL High 70-105 [facility] Comment on above: Order Comment: Waive d Testing in the ED is performed under the ED CLIA certificate #[id number]. Result Comment: [email or web address] Performed By: #### L [id number] ####[facility] [place] [address] Glucose [Mass/Vol] 216 mg/dL High 70-105 [facility] Comment on above: Order Comment: Waive d Testing in the ED is performed under the ED CLIA certificate #[id number]. Result Comment: [email or web address] Performed By: #### L [id number] ####[facility] ([facility]ER)[address] [facility] [address] Glucose [Mass/Vol] 196 mg/dL High 70-105 [facility] Comment on above: Order Comment: Waive d Testing in the ED is performed under the ED CLIA certificate #[id number]. Result Comment: [email or web address] Performed By: #### L [id number] ####[facility] ([facility])[address] [place] [address] 30on 10-05-2023 30 The patient is Moderately [...] facility with appropriate resources Outcome: Progressing Normal [facility] 30 Daily Case Managemen t Update [...] PT Recommendations: OT Recommendations: New Consults: Normal [facility] ANTI-XA (HEPARIN LEVEL)on HEPARIN UNFRACTIONATED (U/ML) IN PPP BY CHROMOGENIC METHOD 0.42 IU/mL Normal 0.3-0.7 [facility] Comment on above: Result Comment: Erika roxaban and Apixaban will interfere with the anti Xa assay used to monitor UFH and LMWH. Performed By: #### L [id number] #### [facility] ([facility]) [address] [place] [address] BASIC METABOLIC PANELon 09-25 Anion gap [Moles/Vol] 10 mmol/L Normal 7-20 [facility] Comment on above: Performed By: #### L [id number] #### [facility] ([facility]) [address] [place] [address] Calcium [Mass/Vol] 8.5 mg/dL Low 8.6-10.3 [facility] Comment on above: Performed By: #### L [id number] #### [facility] [address] [place] [address] Chloride [Moles/Vol] 104 mmol/L Normal 98-107 [facility] Comment on above: Performed By: #### L [id number] #### [facility] ([facility]) [address] [place] [address] CO2 [Moles/Vol] 27 mmol/L Normal 21-31 [facility] Comment on above: Performed By: #### L [id number] #### [facility] (BEAKER) [address] [place] [address] Creatinine [Mass/Vol] 0.92 mg/dL Normal 0.70-1.30 [facility] Comment on above: Performed By: #### L [id number] #### [facility] ([facility]) [address] [place] [address] GLOMERULAR FILTRATION RATE ML/MIN/1.73 SQ M.PREDICTED 85.7 mL/min/1.73m*2 Normal >60.0 [facility] Comment on above: Result Comment: [facility]???s estimated glomerular filtration rate (eGFR) will [...] group of individuals. Performed By: #### L [id number] #### [facility] ([facility]) [address] [place] [address] Glucose [Mass/Vol] 197 mg/dL High 70-100 [facility] Comment on above: Performed By: #### L [id number] #### [facility] ([facility]) [address] [place] [address] Potassium [Moles/Vol] 4.1 mmol/L Normal 3.5-5.1 [facility] Comment on above: Performed By: #### L [id number] #### [facility] ([facility]) [address] [place] [address] Sodium [Moles/Vol] 137 mmol/L Normal 136-145 [facility] Comment on above: Performed By: #### L [id number] #### [facility] [address] [place] [address] Urea nitrogen [Mass/Vol] 17 mg/dL Normal 7-25 [facility] Comment on above: Performed By: #### L [id number] #### [facility] ([facility]) [address] [place] [address] UREA NITROGEN/CREATININE (MASS RATIO) IN SER/PLAS 18.5 Normal [facility] Comment on above: Performed By: #### L [id number] #### [facility] ([facility]) [address] [place] [address] CBC WITH AUTO DIFFERENTIALon 10-05-2023 Basophils (Bld) [#/Vol] 0.03 10*3/uL Normal 0.00-0.20 [facility] Comment on above: Performed By: #### L [id number] #### [facility] ([facility]) [address] [facility] [place] [address] Basophils/100 WBC (Bld) 0.6 % Normal 0.0-1.0 [facility] Comment on above: Performed By: #### L [id number] #### [facility] ([facility]) [address] [place] [address] Eosinophils (Bld) [#/Vol] 0.27 10*3/uL Normal 0.00-0.50 [facility] Comment on above: Performed By: #### L [id number] #### [facility] ([facility]) [address] [place] [address] Eosinophils/100 WBC (Bld) 5.7 % Normal 0.0-6.0 [facility] Comment on above: Performed By: #### L [id number] #### [facility] ([facility]) [address] [place] [address] Erythrocyte distribution width (RBC) [Ratio] 13.4 % Normal 11.5-15.0 [facility] Comment on above: Performed By: #### L [id number] #### [facility] ([facility]) [address] [place] [address] ERYTHROCYTE MEAN CORPUSCULAR HEMOGLOBIN CONCENTRATION (G/DL) BY AUTOMATED 32.9 g/dL Normal 32.0-35.0 [facility] Comment on above: Performed By: #### L [id number] #### [facility] ([facility]) [address] [place] [address] Hematocrit (Bld) [Volume fraction] 35.3 % Low 39.0-55.0 [facility] Comment on above: Performed By: #### L [id number] #### [facility] (BEAKER) [address] [place] [address] Hemoglobin (Bld) [Mass/Vol] 11.6 g/dL Low 13.0-17.0 [facility] Comment on above: Performed By: #### L [id number] #### [facility] (BEAKER) [address] [place] [address] Immature granulocytes (Bld) [#/Vol] 0.03 10*3/uL Normal 0.00-0.20 [facility] Comment on above: Performed By: #### L [id number] #### [facility] [address] [place] [address] Immature granulocytes/100 WBC (Bld) 0.6 % Normal 0.0-1.0 [facility] Comment on above: Performed By: #### L [id number] #### [facility] ([facility]) [address] [place] [address] Lymphocytes (Bld) [#/Vol] 1.30 10*3/uL Normal 1.20-4.00 [facility] Comment on above: Performed By: #### L [id number] #### [facility] [address] [place] [address] Lymphocytes/100 WBC (Bld) 27.4 % Normal 20.0-45.0 [facility] Comment on above: Performed By: #### L [id number] #### [facility] [address] [place] [address] MCH (RBC) [Entitic mass] 29.9 pg Normal 27.0-33.0 [facility] Comment on above: Performed By: #### L [id number] #### [facility] (BEAKER) [address] [place] [address] MCV (RBC) [Entitic vol] 91.0 fL Normal 82.0-98.0 [facility] Comment on above: Performed By: #### L [id number] #### [facility] ([facility]ER) [address] [place] [address] Monocytes (Bld) [#/Vol] 0.41 10*3/uL Normal 0.10-1.00 [facility] Comment on above: Performed By: #### L [id number] #### [facility] [address] [place] [address] Monocytes/100 WBC (Bld) 8.6 % Normal 5.0-12.0 [facility] Comment on above: Performed By: #### L [id number] #### [facility] ([facility]) [address] [place] [address] Neutrophils (Bld) [#/Vol] 2.71 10*3/uL Normal 1.60-7.60 [facility] Comment on above: Performed By: #### L [id number] #### [facility] ([facility]) [address] [place] [address] Neutrophils/100 WBC (Bld) 57.1 % Normal 40.0-72.0 [facility] Comment on above: Performed By: #### L [id number] #### [facility] ([facility]) [address] [place] [address] NRBC (PER 100 WBCS) BY AUTOMATED COUNT 0.0 % Normal 0 [facility] Comment on above: Performed By: #### L [id number] #### [facility] ([facility]) [address] [place] [address] PLATELETS (10*3/UL) IN BLOOD AUTOMATED COUNT 132 10*3/uL Low 150-400 [facility] Comment on above: Performed By: #### L [id number] #### [facility] ([facility]) [address] [place] [address] RBC (Bld) [#/Vol] 3.88 10*6/uL Low 4.20-5.70 [facility] Comment on above: Performed By: #### L [id number] #### [facility] [address] [place] [address] WBC (Bld) [#/Vol] 4.75 10*3/uL Normal 4.00-10.60 [facility] Comment on above: Performed By: #### L [id number] #### [facility] ([facility]) [address] [place] [address] POCT GLUCOSE METER UNSOLICIT ED RESULTSon 10-05-2023 Glucose [Mass/Vol] 126 mg/dL High 70-105 [facility] Comment on above: Order Comment: Waive d Testing in the ED is performed under the ED CLIA certificate #[id number]. Result Comment: [email or web address] Performed By: #### L [id number] #### [facility] ([facility]) [address] [place] [address] Glucose [Mass/Vol] 204 mg/dL High 70-105 [facility] Comment on above: Order Comment: Waive d Testing in the ED is performed under the ED CLIA certificate #[id number]. Result Comment: [email or web address] Performed By: #### L [id number] #### [facility] ([facility]) [address] [place] [address] Glucose [Mass/Vol] 277 mg/dL High 70-105 [facility] Comment on above: Order Comment: Waive d Testing in the ED is performed under the ED CLIA certificate #[id number]. Result Comment: [email or web address] Performed By: #### L [id number] #### [facility] ([facility]) [address] [place] [address] Glucose [Mass/Vol] 205 mg/dL High 70-105 [facility] Comment on above: Order Comment: Waive d Testing in the ED is performed under the ED CLIA certificate #[id number]. Result Comment: [email or web address] Performed By: #### L [id number] #### [facility] ([facility]) [address] [place] [address] 30on 10-04-2023 30 The patient is Moderately Stable - Low risk of patient condition declining or worsening The patient's goals for the shift include comfort The clinical goals for the shift include VSS Problem: Pain - Adult Goal: Verbalizes/displays adequate comfort level or baseline comfort level Outcome: Progressing Flowsheets (Taken 10/03/2023 8578) Verbalizes/displays adequate comfort level or baseline comfort [...] (Taken 10/03/2023 0051) Free from fall injury: [place] fall precautions as indicated by assessment Assess [...] Progressing Flowsheets (Taken 10/03/2023 0730 by Elma Paez RN) Discharge to home or other facility with appropriate resources: Identify barriers to discharge with patient and caregiver Arrange for needed discharge resources and transportation as appropriate Problem: Chronic Conditions and Co-morbidities Goal: Patient's chronic conditions and co-morbidity symptoms are monitored and maintained or improved Outcome: Progressing Flowsheets (Taken 10/03/2023 07 by Elma Paez RN) Care Plan - Patient's Chronic Conditions and Co-Morbidity Symptoms are Monitored and Maintained or Improved: Monitor and assess patient's chronic conditions and comorbid symptoms for stability, deterioration, or improvement Collaborate with multidisciplinary team to address chronic and comorbid conditions and prevent exacerbation or deterioration Normal [facility] 30 Daily Case Managemen t Update [...] Other Other: discharge planning 10/01/23 1036 Normal [facility] 30 The patient is Moderately Stable [...] will verbalize decreased discomfort Outcome: Progressing Normal [facility] ANTI-XA (HEPARIN LEVEL)on HEPARIN UNFRACTIONATED (U/ML) IN PPP BY CHROMOGENIC METHOD 0.41 IU/mL Normal 0.3-0.7 [facility] Comment on above: Result Comment: [place] roxaban and Apixaban will interfere with the anti Xa assay used to monitor UFH and LMWH. Performed By: #### L [id number] #### [facility] ([facility]AKER) [address] [place] [address] HEPARIN UNFRACTIONATED (U/ML) IN PPP BY CHROMOGENIC METHOD 0.24 IU/mL Low 0.3-0.7 [facility] Comment on above: Result Comment: Erika roxaban and Apixaban will interfere with the anti Xa assay used to monitor UFH and LMWH. Performed By: #### L [id number] #### [facility] (BEAKER) [address] [place] [address] HEPARIN UNFRACTIONATED (U/ML) IN PPP BY CHROMOGENIC METHOD 0.17 IU/mL Low 0.3-0.7 [facility] Comment on above: Result Comment: Erika roxaban and Apixaban will interfere with the anti Xa assay used to monitor UFH and LMWH. Performed By: #### L [id number] #### [facility] ([facility]) [address] [place] [address] BASIC METABOLIC PANELon 07-0 Anion gap [Moles/Vol] 9 mmol/L Normal 7-20 [facility] Comment on above: Performed By: #### L [id number] #### [facility] ([facility]) [address] [place] [address] Calcium [Mass/Vol] 8.7 mg/dL Normal 8.6-10.3 [facility] Comment on above: Performed By: #### L [id number] #### [facility] ([facility]) [address] [place] [address] Chloride [Moles/Vol] 104 mmol/L Normal 98-107 [facility] Comment on above: Performed By: #### L [id number] #### [facility] ([facility]) [address] [place] [address] CO2 [Moles/Vol] 27 mmol/L Normal 21-31 [facility] Comment on above: Performed By: #### L [id number] #### [facility] ([facility]) [address] [place] [address] Creatinine [Mass/Vol] 0.88 mg/dL Normal 0.70-1.30 [facility] Comment on above: Performed By: #### L [id number] #### [facility] ([facility]) [address] [place] [address] GLOMERULAR FILTRATION RATE ML/MIN/1.73 SQ M.PREDICTED 88.6 mL/min/1.73m*2 Normal >60.0 [facility] Comment on above: Result Comment: [facility]???s estimated glomerular filtration rate (eGFR) will [...] group of individuals. Performed By: #### L [id number] #### [facility] ([facility]) [address] [place] [address] Glucose [Mass/Vol] 207 mg/dL High 70-100 [facility] Comment on above: Performed By: #### L [id number] #### [facility] ([facility]) [address] [place] [address] Potassium [Moles/Vol] 4.2 mmol/L Normal 3.5-5.1 [facility] Comment on above: Performed By: #### L [id number] #### [facility] ([facility]) [address] [place] [address] Sodium [Moles/Vol] 136 mmol/L Normal 136-145 [facility] Comment on above: Performed By: #### L [id number] #### [facility] ([facility]) [address] [place] [address] Urea nitrogen [Mass/Vol] 15 mg/dL Normal 7-25 [facility] Comment on above: Performed By: #### L [id number] #### [facility] ([facility]) [address] [place] [address] UREA NITROGEN/CREATININE (MASS RATIO) IN SER/PLAS 17.0 Normal [facility] Comment on above: Performed By: #### L [id number] #### [facility] ([facility]) [address] [facility] [place] [address] CBC WITH AUTO DIFFERENTIALon 10-04-2023 Basophils (Bld) [#/Vol] 0.04 10*3/uL Normal 0.00-0.20 [facility] Comment on above: Performed By: #### L [id number] #### [facility] (BEAKER) [address] [place] [address] Basophils/100 WBC (Bld) 0.8 % Normal 0.0-1.0 [facility] Comment on above: Performed By: #### L [id number] #### [facility] ([facility]) [address] [place] [address] Eosinophils (Bld) [#/Vol] 0.24 10*3/uL Normal 0.00-0.50 [facility] Comment on above: Performed By: #### L [id number] #### [facility] [address] [place] [address] Eosinophils/100 WBC (Bld) 4.9 % Normal 0.0-6.0 [facility] Comment on above: Performed By: #### L [id number] #### [facility] ([facility]) [address] [place] [address] Erythrocyte distribution width (RBC) [Ratio] 13.2 % Normal 11.5-15.0 [facility] Comment on above: Performed By: #### L [id number] #### [facility] ([facility]) [address] [place] [address] ERYTHROCYTE MEAN CORPUSCULAR HEMOGLOBIN CONCENTRATION (G/DL) BY AUTOMATED 33.3 g/dL Normal 32.0-35.0 [facility] Comment on above: Performed By: #### L [id number] #### [facility] (BEAKER) [address] [place] [address] Hematocrit (Bld) [Volume fraction] 36.9 % Low 39.0-55.0 [facility] Comment on above: Performed By: #### L [id number] #### [facility] (BEAKER) [address] [place] [address] Hemoglobin (Bld) [Mass/Vol] 12.3 g/dL Low 13.0-17.0 [facility] Comment on above: Performed By: #### L [id number] #### [facility] [address] [place] [address] Immature granulocytes (Bld) [#/Vol] 0.04 10*3/uL Normal 0.00-0.20 [facility] Comment on above: Performed By: #### L [id number] #### [facility] ([facility]) [address] [place] [address] Immature granulocytes/100 WBC (Bld) 0.8 % Normal 0.0-1.0 [facility] Comment on above: Performed By: #### L [id number] #### [facility] ([facility]) [address] [place] [address] Lymphocytes (Bld) [#/Vol] 1.22 10*3/uL Normal 1.20-4.00 [facility] Comment on above: Performed By: #### L [id number] #### [facility] ([facility]) [address] [place] [address] Lymphocytes/100 WBC (Bld) 25.0 % Normal 20.0-45.0 [facility] Comment on above: Performed By: #### L [id number] #### [facility] ([facility]) [address] [place] [address] MCH (RBC) [Entitic mass] 29.6 pg Normal 27.0-33.0 [facility] Comment on above: Performed By: #### L [id number] #### [facility] [address] [place] [address] MCV (RBC) [Entitic vol] 88.7 fL Normal 82.0-98.0 [facility] Comment on above: Performed By: #### L [id number] #### [facility] (BEAKER) [address] [place] [address] Monocytes (Bld) [#/Vol] 0.44 10*3/uL Normal 0.10-1.00 [facility] Comment on above: Performed By: #### L [id number] #### [facility] ([facility]) [address] [place] [address] Monocytes/100 WBC (Bld) 9.0 % Normal 5.0-12.0 [facility] Comment on above: Performed By: #### L [id number] #### [facility] ([facility]) [address] [place] [address] Neutrophils (Bld) [#/Vol] 2.90 10*3/uL Normal 1.60-7.60 [facility] Comment on above: Performed By: #### L [id number] #### [facility] ([facility]) [address] [place] [address] Neutrophils/100 WBC (Bld) 59.5 % Normal 40.0-72.0 [facility] Comment on above: Performed By: #### L [id number] #### [facility] ([facility]) [address] [place] [address] NRBC (PER 100 WBCS) BY AUTOMATED COUNT 0.0 % Normal 0 [facility] Comment on above: Performed By: #### L [id number] #### [facility] ([facility]) [address] [place] [address] PLATELETS (10*3/UL) IN BLOOD AUTOMATED COUNT 136 10*3/uL Low 150-400 [facility] Comment on above: Performed By: #### L [id number] #### [facility] ([facility]) [address] [place] [address] RBC (Bld) [#/Vol] 4.16 10*6/uL Low 4.20-5.70 [facility] Comment on above: Performed By: #### L [id number] #### [facility] ([facility]) [address] [place] [address] WBC (Bld) [#/Vol] 4.88 10*3/uL Normal 4.00-10.60 [facility] Comment on above: Performed By: #### L [id number] #### [facility] ([facility]AKER) [address] [place] [address] CT HEAD WO IV CONTRASTon CT HEAD [...] FAUZIA RODRÍGUEZ MD. 8 Invalid Interpretation Code [facility] MRI CARDIAC MORPHOLOGY AND F UNCTION [...] Sabino Chapman. Not Vldtd Invalid Interpretation Code [facility] POCT GLUCOSE METER UNSOLICIT ED RESULTSon 10-04-2023 Glucose [Mass/Vol] 267 mg/dL High 70-105 [facility] Comment on above: Order Comment: Basel ine aPTT before initiating heparin infusion. Result Comment: [email or web address] [email or web address] Performed By: #### L [id number] #### [facility] (BEAKER) [address] [place] [address] Glucose [Mass/Vol] 190 mg/dL High 70-105 [facility] Comment on above: Order Comment: Waive d Testing in the ED is performed under the ED CLIA certificate #[id number]. Result Comment: [email or web address] [email or web address] Performed By: #### L [id number] #### [facility] (BEAKER) [address] [place] [address] Glucose [Mass/Vol] 236 mg/dL High 70-105 [facility] Comment on above: Order Comment: Waive d Testing in the ED is performed under the ED CLIA certificate #[id number]. Result Comment: cfet [email or web address] Performed By: #### L [id number] #### [facility] (BEAKER) [address] [place] [address] Glucose [Mass/Vol] 203 mg/dL High 70-105 [facility] Comment on above: Order Comment: Waive d Testing in the ED is performed under the ED CLIA certificate #[id number]. Result Comment: cfet [email or web address] Performed By: #### L [id number] #### [facility] (BEAKER) [address] [facility] [facility] [place] [address] 30on 10-03-2023 30 The patient is Moderately [...] (Taken 10/03/2023 0051) Free from fall injury: [place] fall precautions as indicated by assessment Assess [...] comorbid conditions and prevent exacerbation or deterioration [facility] 30 The patient is The patient's goals for the shift include comfort The clinical goals for the shift include VSS Over the shift, the patient did not make progress toward the following goals. Barriers to progression include . Recommendations to address these barriers include . Normal [facility] 30 The patient is Moderately Stable [...] Flowsheets (Taken 10/03/202350) Free from fall injury: [place] fall precautions as indicated by assessment Assess [...] and prevent overall improvement and discharge Normal [facility] ANTI-XA (HEPARIN LEVEL)on HEPARIN UNFRACTIONATED (U/ML) IN PPP BY CHROMOGENIC METHOD 0.20 IU/mL Low 0.3-0.7 [facility] Comment on above: Result Comment: Erika roxaban and Apixaban will interfere with the anti Xa assay used to monitor UFH and LMWH. Performed By: #### L [id number] ####[facility] ([facility])[address] [place] [address] HEPARIN UNFRACTIONATED (U/ML) IN PPP BY CHROMOGENIC METHOD 0.23 IU/mL Low 0.3-0.7 [facility] Comment on above: Result Comment: Erika roxaban and Apixaban will interfere with the anti Xa assay used to monitor UFH and LMWH. Performed By: #### L [id number] ####[facility] ([facility])[address] [place] [address] BASIC METABOLIC PANELon 07-0 Anion gap [Moles/Vol] 11 mmol/L Normal 7-20 [facility] Comment on above: Performed By: #### L [id number] #### [facility] ([facility]) [address] [place] [address] Calcium [Mass/Vol] 8.8 mg/dL Normal 8.6-10.3 [facility] Comment on above: Performed By: #### L [id number] #### [facility] ([facility]) [address] [place] [address] Chloride [Moles/Vol] 105 mmol/L Normal 98-107 [facility] Comment on above: Performed By: #### L [id number] #### [facility] ([facility]) [address] [place] [address] CO2 [Moles/Vol] 27 mmol/L Normal 21-31 [facility] Comment on above: Performed By: #### L [id number] #### [facility] ([facility]) [address] [place] [address] Creatinine [Mass/Vol] 0.85 mg/dL Normal 0.70-1.30 [facility] Comment on above: Performed By: #### L [id number] #### [facility] ([facility]) [address] [place] [address] GLOMERULAR FILTRATION RATE ML/MIN/1.73 SQ M.PREDICTED 89.5 mL/min/1.73m*2 Normal >60.0 [facility] Comment on above: Result Comment: [facility]???s estimated glomerular filtration rate (eGFR) will [...] group of individuals. Performed By: #### L [id number] #### [facility] ([facility]) [address] [place] [address] Glucose [Mass/Vol] 164 mg/dL High 70-100 [facility] Comment on above: Performed By: #### L [id number] #### [facility] ([facility]) [address] [place] [address] Potassium [Moles/Vol] 3.9 mmol/L Normal 3.5-5.1 [facility] Comment on above: Performed By: #### L [id number] #### [facility] ([facility]) [address] [facility] [place] [address] Sodium [Moles/Vol] 139 mmol/L Normal 136-145 [facility] Comment on above: Performed By: #### L [id number] #### [facility] ([facility]) [address] [place] [address] Urea nitrogen [Mass/Vol] 17 mg/dL Normal 7-25 [facility] Comment on above: Performed By: #### L [id number] #### [facility] ([facility]) [address] [place] [address] UREA NITROGEN/CREATININE (MASS RATIO) IN SER/PLAS 20.0 Normal [facility] Comment on above: Performed By: #### L [id number] #### [facility] ([facility]) [address] [place] [address] CBC WITH AUTO DIFFERENTIALon 10-03-2023 Basophils (Bld) [#/Vol] 0.05 10*3/uL Normal 0.00-0.20 [facility] Comment on above: Performed By: #### L [id number] #### [facility] ([facility]) [address] [place] [address] Basophils/100 WBC (Bld) 0.8 % Normal 0.0-1.0 [facility] Comment on above: Performed By: #### L [id number] #### [facility] ([facility]) [address] [place] [address] Eosinophils (Bld) [#/Vol] 0.22 10*3/uL Normal 0.00-0.50 [facility] Comment on above: Performed By: #### L [id number] #### [facility] ([facility]) [address] [place] [address] Eosinophils/100 WBC (Bld) 3.7 % Normal 0.0-6.0 [facility] Comment on above: Performed By: #### L [id number] #### [facility] ([facility]) [address] [place] [address] Erythrocyte distribution width (RBC) [Ratio] 13.2 % Normal 11.5-15.0 [facility] Comment on above: Performed By: #### L [id number] #### [facility] (BEAKER) [address] [place] [address] ERYTHROCYTE MEAN CORPUSCULAR HEMOGLOBIN CONCENTRATION (G/DL) BY AUTOMATED 33.4 g/dL Normal 32.0-35.0 [facility] Comment on above: Performed By: #### L [id number] #### [facility] (BEAKER) [address] [place] [address] Hematocrit (Bld) [Volume fraction] 38.9 % Low 39.0-55.0 [facility] Comment on above: Performed By: #### L [id number] #### [facility] (BEAKER) [address] [place] [address] Hemoglobin (Bld) [Mass/Vol] 13.0 g/dL Normal 13.0-17.0 [facility] Comment on above: Performed By: #### L [id number] #### [facility] (BEAKER) [address] [place] [address] Immature granulocytes (Bld) [#/Vol] 0.03 10*3/uL Normal 0.00-0.20 [facility] Comment on above: Performed By: #### L [id number] #### [facility] (BEAKER) [address] [place] [address] Immature granulocytes/100 WBC (Bld) 0.5 % Normal 0.0-1.0 [facility] Comment on above: Performed By: #### L [id number] #### [facility] (BEAKER) [address] [place] [address] Lymphocytes (Bld) [#/Vol] 1.61 10*3/uL Normal 1.20-4.00 [facility] Comment on above: Performed By: #### L [id number] #### [facility] (BEAKER) [address] [place] [address] Lymphocytes/100 WBC (Bld) 26.9 % Normal 20.0-45.0 [facility] Comment on above: Performed By: #### L [id number] #### [facility] ([facility]ER) [address] [place] [address] MCH (RBC) [Entitic mass] 29.7 pg Normal 27.0-33.0 [facility] Comment on above: Performed By: #### L [id number] #### [facility] [address] [place] [address] MCV (RBC) [Entitic vol] 88.8 fL Normal 82.0-98.0 [facility] Comment on above: Performed By: #### L [id number] #### [facility] ([facility]) [address] [place] [address] Monocytes (Bld) [#/Vol] 0.45 10*3/uL Normal 0.10-1.00 [facility] Comment on above: Performed By: #### L [id number] #### [facility] ([facility]) [address] [place] [address] Monocytes/100 WBC (Bld) 7.5 % Normal 5.0-12.0 [facility] Comment on above: Performed By: #### L [id number] #### [facility] ([facility]) [address] [place] [address] Neutrophils (Bld) [#/Vol] 3.62 10*3/uL Normal 1.60-7.60 [facility] Comment on above: Performed By: #### L [id number] #### [facility] [address] [place] [address] Neutrophils/100 WBC (Bld) 60.6 % Normal 40.0-72.0 [facility] Comment on above: Performed By: #### L [id number] #### [facility] [address] [place] [address] NRBC (PER 100 WBCS) BY AUTOMATED COUNT 0.0 % Normal 0 [facility] Comment on above: Performed By: #### L [id number] #### [facility] (BEAKER) [address] [place] [address] PLATELETS (10*3/UL) IN BLOOD AUTOMATED COUNT 135 10*3/uL Low 150-400 [facility] Comment on above: Performed By: #### L [id number] #### [facility] ([facility]) [address] [place] [address] RBC (Bld) [#/Vol] 4.38 10*6/uL Normal 4.20-5.70 [facility] Comment on above: Performed By: #### L [id number] #### [facility] ([facility]) [address] [place] [address] WBC (Bld) [#/Vol] 5.98 10*3/uL Normal 4.00-10.60 [facility] Comment on above: Performed By: #### L [id number] #### [facility] ([facility]) [address] [place] [address] HEMOGLOBIN A1Con 10-03-2023 Glucose [Mass/Vol] 197 mg/dL Normal [facility] Comment on above: Performed By: #### L [id number] #### [facility] ([facility]) [address] [place] [address] HbA1c (Bld) [Mass fraction] 8.5 % High 4.0-6.0 [facility] Comment on above: Performed By: #### L [id number] #### [facility] ([facility]) [address] [place] [address] HPon 10-03-2023 HP H&P reviewed. The patient was examined and there are no changes to the H&P. Kimmy Mcarthur is a 78 y.o. 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 Patient will undergo CORS. Normal [facility] LIPID PANELon 10-03-2023 CHOL/HDL 3.1 mg/dL Normal [facility] Comment on above: Performed By: #### L [id number] #### [facility] ([facility]) [address] [place] [address] Cholesterol [Mass/Vol] 157 mg/dL Normal 120-200 [facility] Comment on above: Performed By: #### L [id number] #### [facility] ([facility]) [address] [place] [address] Magnesium [Mass/Vol] 124 mg/dL Normal 40-149 [facility] Comment on above: Result Comment: TRIG LYCERIDE REFERENCE RANGE: 20 YEARS AND OLDER CARDIOVASCULAR RISK LESS THAN 150 mg/dL LOW RISK 150 TO 199 mg/dL BORDERLINE RISK 200 mg/dL AND GREATER HIGH RISK Performed By: #### L [id number] #### [facility] ([facility]) [address] [place] [address] Magnesium [Mass/Vol] 82 mg/dL Normal 0-160 [facility] Comment on above: Performed By: #### L [id number] #### [facility] ([facility]) [address] [place] [address] Magnesium [Mass/Vol] 50 mg/dL Normal 23-92 [facility] Comment on above: Performed By: #### L [id number] #### [facility] ([facility]) [address] [place] [address] NON HDL CHOL. (LDL+VLDL) 107 Normal [facility] Comment on above: Performed By: #### L [id number] #### [facility] ([facility]) [address] [place] [address] TOTAL VLDL-C 25 mg/dL Normal 0-40 [facility] Comment on above: Performed By: #### L [id number] #### [facility] ([facility]) [address] [place] [address] MRSA/MSSA DNA NASALon 2023 MRSA DNA Negative Normal Negative [facility] Comment on above: Order Comment: Testi [...] preclude nasal colonization. Performed By: #### L [id number] ####[facility] ([facility])[address] [place] [address] MSSA DNA Negative Normal Negative [facility] Comment on above: Order Comment: Testi [...] preclude nasal colonization. Performed By: #### L [id number] ####[facility] ([facility])[address] [place] [address] POCT GLUCOSE METER UNSOLICIT ED RESULTSon 10-03-2023 Glucose [Mass/Vol] 173 mg/dL High 70-105 [facility] Comment on above: Order Comment: Waive d Testing in the ED is performed under the ED CLIA certificate #[id number]. Result Comment: [email or web address] [email or web address] Performed By: #### L [id number] #### [facility] ([facility]) [address] [place] [address] Glucose [Mass/Vol] 223 mg/dL High 70-105 [facility] Comment on above: Order Comment: Waive d Testing in the ED is performed under the ED CLIA certificate #[id number]. Result Comment: [email or web address] [email or web address] Performed By: #### L [id number] #### [facility] ([facility]) [address] [facility] [place] [address] Glucose [Mass/Vol] 173 mg/dL High 70-105 [facility] Comment on above: Order Comment: Basel ine aPTT before initiating heparin infusion. Result Comment: [email or web address] Performed By: #### L [id number] #### [facility] ([facility]) [address] [place] [address] Glucose [Mass/Vol] 163 mg/dL High 70-105 [facility] Comment on above: Order Comment: Waive d Testing in the ED is performed under the ED CLIA certificate #[id number]. Result Comment: [email or web address] Performed By: #### L [id number] ####[facility] ([facility])[address] [place] [address] TSHon 10-03-2023 THYROTROPIN (MIU/L) IN SER/PLAS BY DETECTION LIMIT <= 0.05 MIU/L 6.07 mIU/L High 0.34-5.60 [facility] Comment on above: Performed By: #### L [id number] #### [facility] ([facility]) [address] [place] [address] URINALYSISon 10-03-2023 BILIRUBIN, TOTAL PRESENCE IN URINE Negative Normal Negative [facility] Comment on above: Order Comment: Basel ine aPTT before initiating heparin infusion. Performed By: #### L [id number] #### [facility] ([facility]) [address] [place] [address] Clarity (U) Clear Normal Clear [facility] Comment on above: Order Comment: Basel ine aPTT before initiating heparin infusion. Performed By: #### L [id number] #### [facility] ([facility]) [address] [place] [address] Color (U) Straw Abnormal Yellow [facility] Comment on above: Order Comment: Basel ine aPTT before initiating heparin infusion. Performed By: #### L [id number] #### [facility] ([facility]) [address] [place] [address] Glucose (U) [Mass/Vol] mg/dL Abnormal Negative [facility] Comment on above: Order Comment: Basel ine aPTT before initiating heparin infusion. Performed By: #### L [id number] #### [facility] ([facility]) [address] [place] [address] HEMOGLOBIN PRESENCE IN URINE Negative Normal Negative [facility] Comment on above: Order Comment: Basel ine aPTT before initiating heparin infusion. Performed By: #### L [id number] #### [facility] [address] [place] [address] Ketones Ql (U) Negative Normal Negative [facility] Comment on above: Order Comment: Basel ine aPTT before initiating heparin infusion. Performed By: #### L [id number] #### [facility] ([facility]) [address] [place] [address] LEUKOCYTE ESTERASE PRESENCE IN URINE BY TEST STRIP Negative Normal Negative [facility] Comment on above: Order Comment: Basel ine aPTT before initiating heparin infusion. Performed By: #### L [id number] #### [facility] ([facility]) [address] [place] [address] NITRITE PRESENCE IN URINE Negative Normal Negative [facility] Comment on above: Order Comment: Basel ine aPTT before initiating heparin infusion. Performed By: #### L [id number] #### [facility] ([facility]) [address] [place] [address] pH (U) 6.0 [pH] Normal 5.0-8.0 [facility] Comment on above: Order Comment: Basel ine aPTT before initiating heparin infusion. Performed By: #### L [id number] #### [facility] ([facility]) [address] [place] [address] Protein (U) [Mass/Vol] Negative Normal Negative [facility] Comment on above: Order Comment: Basel ine aPTT before initiating heparin infusion. Performed By: #### L [id number] #### [facility] [address] [place] [address] Specific gravity (U) [Rel density] 1.011 Low 1.015-1.020 [facility] Comment on above: Order Comment: Basel ine aPTT before initiating heparin infusion. Performed By: #### L [id number] #### [facility] [address] [place] [address] 30on 10-02-2023 30 The patient is Moderately Stable - Low risk of patient condition declining or worsening The patient's goals for the shift include comfort and rest The clinical goals for the shift include stable VS Over the shift, the patient did not make progress toward the following goals. Barriers to progression include . Recommendations to address these barriers include . Normal [facility] ANTI-XA (HEPARIN LEVEL)on HEPARIN UNFRACTIONATED (U/ML) IN PPP BY CHROMOGENIC METHOD 0.44 IU/mL Normal 0.3-0.7 [facility] Comment on above: Result Comment: [place] roxaban and Apixaban will interfere with the anti Xa assay used to monitor UFH and LMWH. Performed By: #### L [id number] ####[facility] ([facility])[address] [place] [address] BASIC METABOLIC PANELon Anion gap [Moles/Vol] 10 mmol/L Normal 7-20 [facility] Comment on above: Performed By: #### L [id number] ####[facility] [place] [address] Calcium [Mass/Vol] 8.6 mg/dL Normal 8.6-10.3 [facility] Comment on above: Performed By: #### L [id number] ####[facility] ([facility])[address] [place] [address] Chloride [Moles/Vol] 105 mmol/L Normal 98-107 [facility] Comment on above: Performed By: #### L [id number] ####[facility] ([facility])[address] [place] [address] CO2 [Moles/Vol] 27 mmol/L Normal 21-31 [facility] Comment on above: Performed By: #### L [id number] ####[facility] ([facility])[address] [place] [address] Creatinine [Mass/Vol] 0.77 mg/dL Normal 0.70-1.30 [facility] Comment on above: Performed By: #### L [id number] ####[facility] [place] [address] GLOMERULAR FILTRATION RATE ML/MIN/1.73 SQ M.PREDICTED 92.2 mL/min/1.73m*2 Normal >60.0 [facility] Comment on above: Result Comment: [facility]???s estimated glomerular filtration rate (eGFR) will [...] of individuals. Performed By: #### L [id number] ####[facility] ([facility])[address] [place] [address] Glucose [Mass/Vol] 153 mg/dL High 70-100 [facility] Comment on above: Performed By: #### L [id number] ####[facility] ([facility])[address] [place] [address] Potassium [Moles/Vol] 3.8 mmol/L Normal 3.5-5.1 [facility] Comment on above: Performed By: #### L [id number] ####[facility] ([facility])[address] [place] [address] Sodium [Moles/Vol] 138 mmol/L Normal 136-145 [facility] Comment on above: Performed By: #### L [id number] ####[facility] ([facility])[address] [place] [address] Urea nitrogen [Mass/Vol] 16 mg/dL Normal 7-25 [facility] Comment on above: Performed By: #### L [id number] ####[facility] ([facility])[address] [place] [address] UREA NITROGEN/CREATININE (MASS RATIO) IN SER/PLAS 20.8 Normal [facility] Comment on above: Performed By: #### L [id number] ####[facility] [place] [address] CBC WITH AUTO DIFFERENTIALon 10-02-2023 Basophils (Bld) [#/Vol] 0.04 10*3/uL Normal 0.00-0.20 [facility] Comment on above: Performed By: #### L [id number] #### [facility] ([facility]) [address] [place] [address] Basophils/100 WBC (Bld) 0.6 % Normal 0.0-1.0 [facility] Comment on above: Performed By: #### L [id number] #### [facility] ([facility]) [address] [place] [address] Eosinophils (Bld) [#/Vol] 0.22 10*3/uL Normal 0.00-0.50 [facility] Comment on above: Performed By: #### L [id number] #### [facility] ([facility]) [address] [place] [address] Eosinophils/100 WBC (Bld) 3.2 % Normal 0.0-6.0 [facility] Comment on above: Performed By: #### L [id number] #### [facility] ([facility]) [address] [place] [address] Erythrocyte distribution width (RBC) [Ratio] 13.2 % Normal 11.5-15.0 [facility] Comment on above: Performed By: #### L [id number] #### [facility] ([facility]) [address] [place] [address] ERYTHROCYTE MEAN CORPUSCULAR HEMOGLOBIN CONCENTRATION (G/DL) BY AUTOMATED 34.0 g/dL Normal 32.0-35.0 [facility] Comment on above: Performed By: #### L [id number] #### [facility] [address] [place] [address] Hematocrit (Bld) [Volume fraction] 38.5 % Low 39.0-55.0 [facility] Comment on above: Performed By: #### L [id number] #### [facility] [address] [place] [address] Hemoglobin (Bld) [Mass/Vol] 13.1 g/dL Normal 13.0-17.0 [facility] Comment on above: Performed By: #### L [id number] #### [facility] ([facility]) [address] [place] [address] Immature granulocytes (Bld) [#/Vol] 0.02 10*3/uL Normal 0.00-0.20 [facility] Comment on above: Performed By: #### L [id number] #### [facility] ([facility]) [address] [place] [address] Immature granulocytes/100 WBC (Bld) 0.3 % Normal 0.0-1.0 [facility] Comment on above: Performed By: #### L [id number] #### [facility] ([facility]) [address] [place] [address] IMMATURE PLATELET FRACTION % 2.6 % Normal 0.8-6.3 [facility] Comment on above: Performed By: #### L [id number] #### [facility] ([facility]) [address] [place] [address] Lymphocytes (Bld) [#/Vol] 1.45 10*3/uL Normal 1.20-4.00 [facility] Comment on above: Performed By: #### L [id number] #### [facility] ([facility]) [address] [place] [address] Lymphocytes/100 WBC (Bld) 21.1 % Normal 20.0-45.0 [facility] Comment on above: Performed By: #### L [id number] #### [facility] ([facility]) [address] [place] [address] MCH (RBC) [Entitic mass] 29.8 pg Normal 27.0-33.0 [facility] Comment on above: Performed By: #### L [id number] #### [facility] ([facility]) [address] [place] [address] MCV (RBC) [Entitic vol] 87.5 fL Normal 82.0-98.0 [facility] Comment on above: Performed By: #### L [id number] #### [facility] ([facility]) [address] [place] [address] Monocytes (Bld) [#/Vol] 0.50 10*3/uL Normal 0.10-1.00 [facility] Comment on above: Performed By: #### L [id number] #### [facility] ([facility]) [address] [place] [address] Monocytes/100 WBC (Bld) 7.3 % Normal 5.0-12.0 [facility] Comment on above: Performed By: #### L [id number] #### [facility] ([facility]) [address] [place] [address] Neutrophils (Bld) [#/Vol] 4.64 10*3/uL Normal 1.60-7.60 [facility] Comment on above: Performed By: #### L [id number] #### [facility] ([facility]) [address] [place] [address] Neutrophils/100 WBC (Bld) 67.5 % Normal 40.0-72.0 [facility] Comment on above: Performed By: #### L [id number] #### [facility] ([facility]) [address] [place] [address] NRBC (PER 100 WBCS) BY AUTOMATED COUNT 0.0 % Normal 0 [facility] Comment on above: Performed By: #### L [id number] #### [facility] ([facility]) [address] [place] [address] PLATELETS (10*3/UL) IN BLOOD AUTOMATED COUNT 134 10*3/uL Low 150-400 [facility] Comment on above: Performed By: #### L [id number] #### [facility] ([facility]) [address] [place] [address] RBC (Bld) [#/Vol] 4.40 10*6/uL Normal 4.20-5.70 [facility] Comment on above: Performed By: #### L [id number] #### [facility] ([facility]) [address] [place] [address] WBC (Bld) [#/Vol] 6.87 10*3/uL Normal 4.00-10.60 [facility] Comment on above: Performed By: #### L [id number] #### [facility] ([facility]) [address] [place] [address] POCT GLUCOSE METER UNSOLICIT ED RESULTSon 10-02-2023 Glucose [Mass/Vol] 241 mg/dL High 70-105 [facility] Comment on above: Order Comment: Waive d Testing in the ED is performed under the ED CLIA certificate #[id number]. Result Comment: [email or web address] Performed By: #### L [id number] ####[facility] ([facility])[address] [place] [address] Glucose [Mass/Vol] 176 mg/dL High 70-105 [facility] Comment on above: Order Comment: Waive d Testing in the ED is performed under the ED CLIA certificate #[id number]. Result Comment: [email or web address] Performed By: #### L [id number] #### [facility] ([facility]) [address] [place] [address] Glucose [Mass/Vol] 237 mg/dL High 70-105 [facility] Comment on above: Order Comment: Waive d Testing in the ED is performed under the ED CLIA certificate #[id number]. Result Comment: [email or web address] Performed By: #### L [id number] #### [facility] ([facility]) [address] [place] [address] Glucose [Mass/Vol] 136 mg/dL High 70-105 [facility] Comment on above: Order Comment: Waive d Testing in the ED is performed under the ED CLIA certificate #[id number]. Result Comment: [email or web address] Performed By: #### L [id number] #### [facility] [address] [place] [address] Glucose [Mass/Vol] 156 mg/dL High 70-105 [facility] Comment on above: Order Comment: Waive d Testing in the ED is performed under the ED CLIA certificate #[id number]. Result Comment: [email or web address] Performed By: #### L [id number] ####[facility] ([facility])[address] [place] [address] 30on 10-01-2023 30 The patient is Moderately Stable - Low risk of patient condition declining or worsening The patient's goals for the shift include comfort and rest The clinical goals for the shift include stable VS Over the shift, the patient did make progress toward his goals. Normal [facility] 30 The patient is Moderately Stable - Low risk of patient condition declining or worsening The patient's goals for the shift include comfort and rest The clinical goals for the shift include stable VS Over the shift, the patient did not make progress toward the following goals. Barriers to progression include . Recommendations to address these barriers include . Normal [facility] ANTI-XA (HEPARIN LEVEL)on HEPARIN UNFRACTIONATED (U/ML) IN PPP BY CHROMOGENIC METHOD 0.44 IU/mL Normal 0.3-0.7 [facility] Comment on above: Result Comment: [place] roxaban and Apixaban will interfere with the anti Xa assay used to monitor UFH and LMWH. Performed By: #### L [id number] #### [facility] ([facility]) [address] [place] [address] HEPARIN UNFRACTIONATED (U/ML) IN PPP BY CHROMOGENIC METHOD 0.32 IU/mL Normal 0.3-0.7 [facility] Comment on above: Result Comment: [place] roxaban and Apixaban will interfere with the anti Xa assay used to monitor UFH and LMWH. Performed By: #### L [id number] #### [facility] ([facility]) [address] [place] [address] HEPARIN UNFRACTIONATED (U/ML) IN PPP BY CHROMOGENIC METHOD 0.29 IU/mL Low 0.3-0.7 [facility] Comment on above: Result Comment: [place] roxaban and Apixaban will interfere with the anti Xa assay used to monitor UFH and LMWH. Performed By: #### L [id number] ####[facility] ([facility])[address] [place] [address] BASIC METABOLIC PANELon 07-0 Anion gap [Moles/Vol] 11 mmol/L Normal 7-20 [facility] Comment on above: Performed By: #### L [id number] #### [facility] [address] [place] [address] Calcium [Mass/Vol] 8.7 mg/dL Normal 8.6-10.3 [facility] Comment on above: Performed By: #### L [id number] #### [facility] [address] [place] [address] Chloride [Moles/Vol] 105 mmol/L Normal 98-107 [facility] Comment on above: Performed By: #### L [id number] #### [facility] [address] [place] [address] CO2 [Moles/Vol] 25 mmol/L Normal 21-31 [facility] Comment on above: Performed By: #### L [id number] #### [facility] ([facility]) [address] [place] [address] Creatinine [Mass/Vol] 0.82 mg/dL Normal 0.70-1.30 [facility] Comment on above: Performed By: #### L [id number] #### [facility] [address] [place] [address] GLOMERULAR FILTRATION RATE ML/MIN/1.73 SQ M.PREDICTED 90.5 mL/min/1.73m*2 Normal >60.0 [facility] Comment on above: Result Comment: [facility]???s estimated glomerular filtration rate (eGFR) will [...] group of individuals. Performed By: #### L [id number] #### [facility] ([facility]) [address] [place] [address] Glucose [Mass/Vol] 154 mg/dL High 70-100 [facility] Comment on above: Performed By: #### L [id number] #### [facility] ([facility]) [address] [place] [address] Potassium [Moles/Vol] 4.1 mmol/L Normal 3.5-5.1 [facility] Comment on above: Performed By: #### L [id number] #### [facility] ([facility]) [address] [place] [address] Sodium [Moles/Vol] 137 mmol/L Normal 136-145 [facility] Comment on above: Performed By: #### L [id number] #### [facility] ([facility]) [address] [place] [address] Urea nitrogen [Mass/Vol] 18 mg/dL Normal 7-25 [facility] Comment on above: Performed By: #### L [id number] #### [facility] ([facility]) [address] [place] [address] UREA NITROGEN/CREATININE (MASS RATIO) IN SER/PLAS 22.0 Normal [facility] Comment on above: Performed By: #### L [id number] #### [facility] ([facility]) [address] [place] [address] CBCon 10-01-2023 Erythrocyte distribution width (RBC) [Ratio] 13.2 % Normal 11.5-15.0 [facility] Comment on above: Performed By: #### L [id number] #### [facility] ([facility]) [address] [place] [address] ERYTHROCYTE MEAN CORPUSCULAR HEMOGLOBIN CONCENTRATION (G/DL) BY AUTOMATED 33.4 g/dL Normal 32.0-35.0 [facility] Comment on above: Performed By: #### L [id number] #### [facility] ([facility]) [address] [place] [address] Hematocrit (Bld) [Volume fraction] 36.5 % Low 39.0-55.0 [facility] Comment on above: Performed By: #### L [id number] #### [facility] ([facility]) [address] [place] [address] Hemoglobin (Bld) [Mass/Vol] 12.2 g/dL Low 13.0-17.0 [facility] Comment on above: Performed By: #### L [id number] #### [facility] ([facility]) [address] [place] [address] MCH (RBC) [Entitic mass] 29.7 pg Normal 27.0-33.0 [facility] Comment on above: Performed By: #### L [id number] #### [facility] ([facility]) [address] [place] [address] MCV (RBC) [Entitic vol] 88.8 fL Normal 82.0-98.0 [facility] Comment on above: Performed By: #### L [id number] #### [facility] ([facility]) [address] [place] [address] PLATELETS (10*3/UL) IN BLOOD AUTOMATED COUNT 141 10*3/uL Low 150-400 [facility] Comment on above: Performed By: #### L [id number] #### [facility] ([facility]) [address] [place] [address] RBC (Bld) [#/Vol] 4.11 10*6/uL Low 4.20-5.70 [facility] Comment on above: Performed By: #### L [id number] #### [facility] ([facility]) [address] [place] [address] WBC (Bld) [#/Vol] 6.46 10*3/uL Normal 4.00-10.60 [facility] Comment on above: Performed By: #### L [id number] #### [facility] ([facility]) [address] [place] [address] POCT GLUCOSE METER UNSOLICIT ED RESULTSon 10-01-2023 Glucose [Mass/Vol] 265 mg/dL High 70-105 [facility] Comment on above: Order Comment: Waive d Testing in the ED is performed under the ED CLIA certificate #[id number]. Result Comment: [email or web address] Performed By: #### L [id number] #### [facility] ([facility]) [address] [place] [address] Glucose [Mass/Vol] 223 mg/dL High 70-105 [facility] Comment on above: Order Comment: Waive d Testing in the ED is performed under the ED CLIA certificate #[id number]. Result Comment: dcun dic Performed By: #### L [id number] ####[facility] ([facility])[address] [place] [address] Glucose [Mass/Vol] 115 mg/dL High 70-105 [facility] Comment on above: Order Comment: Basel ine aPTT before initiating heparin infusion. Result Comment: dcun dic Performed By: #### L [id number] #### [facility] ([facility]) [address] [place] [address] Glucose [Mass/Vol] 162 mg/dL High 70-105 [facility] Comment on above: Order Comment: Waive d Testing in the ED is performed under the ED CLIA certificate #[id number]. Result Comment: dcun dic Performed By: #### L [id number] ####[facility] ([facility])[address] [place] [address] TROPONIN Ion 10-01-2023 Troponin I.cardiac [Mass/Vol] 0.55 ng/mL Critically high 0.00-0.04 [facility] Comment on above: Result Comment: M-TX EVIOUS CRITICAL RESULT Previous result verified on 10/01/2023204 on specimen/case [id number] called with component Troponin I for procedure Troponin I with value 0.85 ng/mL. Performed By: #### L [id number] ####[facility] ([facility])[address] [place] [address] Troponin I.cardiac [Mass/Vol] 0.55 ng/mL Critically high 0.00-0.04 [facility] Comment on above: Result Comment: M-TX EVIOUS CRITICAL RESULT Previous result verified on 10/01/2023 020 on specimen/case [id number] called with component Troponin I for procedure Troponin I with value 0.85 ng/mL. Performed By: #### L [id number] ####[facility] ([facility])[address] [place] [address] 30on 09-30-2023 30 The patient is Moderately Stable - Low risk of patient condition declining or worsening The patient's goals for the shift include comfort and rest The clinical goals for the shift include stable VS Over the shift, the patient did make progress toward his goals. Normal [facility] 30 The patient is Moderately Unstable [...] will verbalize decreased discomfort Outcome: Progressing Normal [facility] APTTon 09-30-2023 ACTIVATED PARTIAL THROMBOPLASTIN TIME IN PPP BY COAGULATION ASSAY 29.9 Seconds Normal 25.0-35.0 [facility] Comment on above: Order Comment: Basel ine aPTT before initiating heparin infusion. Result Comment: Clin ical significance of the APTT is questionable in the presence of heparin. Performed By: #### L [id number] #### [facility] ([facility]) [address] [place] [address] CBCon 09-30-2023 Erythrocyte distribution width (RBC) [Ratio] 13.2 % Normal 11.5-15.0 [facility] Comment on above: Performed By: #### L [id number] #### [facility] ([facility]) [address] [place] [address] ERYTHROCYTE MEAN CORPUSCULAR HEMOGLOBIN CONCENTRATION (G/DL) BY AUTOMATED 33.0 g/dL Normal 32.0-35.0 [facility] Comment on above: Performed By: #### L [id number] #### [facility] ([facility]) [address] [place] [address] Hematocrit (Bld) [Volume fraction] 37.0 % Low 39.0-55.0 [facility] Comment on above: Performed By: #### L [id number] #### [facility] ([facility]) [address] [place] [address] Hemoglobin (Bld) [Mass/Vol] 12.2 g/dL Low 13.0-17.0 [facility] Comment on above: Performed By: #### L [id number] #### [facility] ([facility]) [address] [place] [address] MCH (RBC) [Entitic mass] 29.4 pg Normal 27.0-33.0 [facility] Comment on above: Performed By: #### L [id number] #### [facility] ([facility]) [address] [place] [address] MCV (RBC) [Entitic vol] 89.2 fL Normal 82.0-98.0 [facility] Comment on above: Performed By: #### L [id number] #### [facility] ([facility]) [address] [place] [address] PLATELETS (10*3/UL) IN BLOOD AUTOMATED COUNT 135 10*3/uL Low 150-400 [facility] Comment on above: Performed By: #### L [id number] #### [facility] ([facility]) [address] [place] [address] RBC (Bld) [#/Vol] 4.15 10*6/uL Low 4.20-5.70 [facility] Comment on above: Performed By: #### L [id number] #### [facility] ([facility]) [address] [place] [address] WBC (Bld) [#/Vol] 5.43 10*3/uL Normal 4.00-10.60 [facility] Comment on above: Performed By: #### L [id number] #### [facility] ([facility]) [address] [place] [address] COMPREHENSIVE METABOLIC PANE Aaron 09-30-2023 Albumin [Mass/Vol] 3.5 g/dL Normal 3.5-5.7 [facility] Comment on above: Performed By: #### L [id number] #### [facility] ([facility]) [address] [place] [address] ALP [Catalytic activity/Vol] 66 U/L Normal 34-104 [facility] Comment on above: Performed By: #### L [id number] #### [facility] ([facility]) [address] [place] [address] ALT [Catalytic activity/Vol] 11 U/L Normal 7-52 [facility] Comment on above: Performed By: #### L [id number] #### [facility] ([facility]) [address] [place] [address] Anion gap [Moles/Vol] 11 mmol/L Normal 7-20 [facility] Comment on above: Performed By: #### L [id number] #### [facility] ([facility]) [address] [place] [address] AST [Catalytic activity/Vol] 13 U/L Normal 13-39 [facility] Comment on above: Performed By: #### L [id number] #### [facility] [address] [place] [address] Bilirubin [Mass/Vol] 0.6 mg/dL Normal 0.3-1.0 [facility] Comment on above: Performed By: #### L [id number] #### [facility] [address] [place] [address] Calcium [Mass/Vol] 8.9 mg/dL Normal 8.6-10.3 [facility] Comment on above: Performed By: #### L [id number] #### [facility] ([facility]) [address] [place] [address] Chloride [Moles/Vol] 103 mmol/L Normal 98-107 [facility] Comment on above: Performed By: #### L [id number] #### [facility] ([facility]) [address] [place] [address] CO2 [Moles/Vol] 27 mmol/L Normal 21-31 [facility] Comment on above: Performed By: #### L [id number] #### [facility] ([facility]) [address] [place] [address] Creatinine [Mass/Vol] 0.96 mg/dL Normal 0.70-1.30 [facility] Comment on above: Performed By: #### L [id number] #### [facility] [address] [place] [address] GLOMERULAR FILTRATION RATE ML/MIN/1.73 SQ M.PREDICTED 81.4 mL/min/1.73m*2 Normal >60.0 [facility] Comment on above: Result Comment: [facility]???s estimated glomerular filtration rate (eGFR) will [...] group of individuals. Performed By: #### L [id number] #### [facility] ([facility]) [address] [place] [address] Glucose [Mass/Vol] 253 mg/dL High 70-100 [facility] Comment on above: Performed By: #### L [id number] #### [facility] ([facility]) [address] [place] [address] Potassium [Moles/Vol] 4.3 mmol/L Normal 3.5-5.1 [facility] Comment on above: Performed By: #### L [id number] #### [facility] ([facility]) [address] [place] [address] Protein [Mass/Vol] 5.4 g/dL Low 6.0-8.3 [facility] Comment on above: Performed By: #### L [id number] #### [facility] ([facility]) [address] [place] [address] Sodium [Moles/Vol] 137 mmol/L Normal 136-145 [facility] Comment on above: Performed By: #### L [id number] #### [facility] ([facility]) [address] [place] [address] Urea nitrogen [Mass/Vol] 20 mg/dL Normal 7-25 [facility] Comment on above: Performed By: #### L [id number] #### [facility] ([facility]) [address] [place] [address] UREA NITROGEN/CREATININE (MASS RATIO) IN SER/PLAS 20.8 Normal [facility] Comment on above: Performed By: #### L [id number] #### [facility] ([facility]) [address] [place] [address] CONSULTon 09-30-2023 CONSULT Cardiology Consult Note Reason [...] past medical history of Carotid artery disorder ([facility]), Coronary artery disease, Diabetes mellitus ([facility]), Heart valve disease, Hypertension, and PAD (peripheral artery disease) ([facility]). Surgical History He has a past surgical [...] Transesophageal echo (HARMONY) Result Date: 02/28/2023 1 [facility] Heart Station [address] [place] [address] [phone] (fax) Transesophageal Echocardiogram-[facility] Name: KIMMY MCARTHUR Study Date: 02/28/2023 09:41 AM B/P: 149 mmHg/58 mmHg HR: Date of : 1945 Location: [facility] Height: 72 in. Age: 77 year(s) Patient Room: Weight: 156 lb. Gender: Male Patient Status: OutPt BSA: 1.92 m2 Indication: Aortic Valve Stenosis Examination: HARMONY/Limited Doppler/CFI, 3D images Image Quality: Good Patient Consent: Informed, written consent was obtained for the procedure Exam Location: A HARMONY was performed in the [facility] without complications Anesthesia Pharyngeal anesthesia with viscous Lidocaine Conclusions Left Ventricle: The left ventricle is normal size. Global left ventricular systolic function is normal. The EF is 55 % visually. (more content not included)... Normal [facility] MAGNESIUMon 09-30-2023 Magnesium [Mass/Vol] 2.0 mg/dL Normal 1.9-2.7 [facility] Comment on above: Performed By: #### L [id number] #### [facility] ([facility]) [address] [place] [address] NURSNOTEon 09-30-2023 NURSNOTE Pt update: Pt has orders to start amio and heparin drip. Compensation And Benefits Manager waited for lab to draw baseline aptt. Compensation And Benefits Manager started amio gtt in right AC. Compensation And Benefits Manager attempted twice to start an IV. After two failed attempts, charge nurse for [facility] also tried to start an IV twice. All times were unsuccessful by both greeting card writer and charge nurse. PICC team was called for ultrasound IV. Normal [facility] PHOSPHORUSon 09-30-2023 Magnesium [Mass/Vol] 4.3 mg/dL Normal 2.5-5.0 [facility] Comment on above: Performed By: #### L [id number] #### [facility] ([facility]) [address] [place] [address] PLATELET COUNTon 09-30-2023 IMMATURE PLATELET FRACTION % 2.9 % Normal 0.8-6.3 [facility] Comment on above: Performed By: #### L [id number] ####[facility] ([facility])[address] [place] [address] PLATELETS (10*3/UL) IN BLOOD AUTOMATED COUNT 135 10*3/uL Low 150-400 [facility] Comment on above: Performed By: #### L [id number] ####[facility] ([facility])[address] [place] [address] POCT GLUCOSE METER UNSOLICIT ED RESULTSon 09-30-2023 Glucose [Mass/Vol] 214 mg/dL High 70-105 [facility] Comment on above: Order Comment: Waive d Testing in the ED is performed under the ED CLIA certificate #[id number]. Result Comment: [email or web address] Performed By: #### L [id number] ####[facility] ([facility])[address] [place] [address] Glucose [Mass/Vol] 192 mg/dL High 70-105 [facility] Comment on above: Order Comment: Waive d Testing in the ED is performed under the ED CLIA certificate #[id number]. Result Comment: [email or web address] Performed By: #### L [id number] ####[facility] ([facility])[address] [place] [address] TROPONIN Ion 09-30-2023 Troponin I.cardiac [Mass/Vol] 0.85 ng/mL Critically high 0.00-0.04 [facility] Comment on above: Result Comment: M-TX EVIOUS CRITICAL RESULT Previous result verified on 09/30/2023 2258 on specimen/case [id number] called with component Troponin I for procedure Troponin I with value 1.20 ng/mL. Performed By: #### L [id number] ####[facility] ([facility])[address] [place] [address] Troponin I.cardiac [Mass/Vol] 1.20 ng/mL Critically high 0.00-0.04 [facility] Comment on above: Result Comment: M-TX EVIOUS CRITICAL RESULT Previous result verified on 09/30/2023 1903 on specimen/case [id number] called with component Troponin I for procedure Troponin I with value 1.18 ng/mL. Performed By: #### L [id number] #### [facility] ([facility]) [address] [place] [address] Troponin I.cardiac [Mass/Vol] 1.18 ng/mL Critically high 0.00-0.04 [facility] Comment on above: Result Comment: FAN BHATTI INITIAL CRITICAL HIGH; RESPUN AND RETESTED Performed By: #### L [id number] ####[facility] ([facility])[address] [place] [address] Screenson 07-14-2023 Screens [id number]#1. 00TIFF Normal [facility] Screens [id number]#1. 00TIFF Normal [facility] Ambulatory Visit Summaryon 0 07-11-2023 Ambulatory [...] [place], Deja Henry Where: [facility] Ed Normal [facility] Lab Reportson 07-11-2023 Lab Reports [id number]#1.0 0TIFF Normal [facility] Lab Reports [id number]#1.0 0TIFF Normal [facility] Patient Educationon 07-11-19 Patient Education Urology [...] these instructions at home: Medicines ? Take rxic-imb-pudcqwn and prescription medicines only as told by [...] include cig (more content not included)... Normal [facility] Urology Office/Clinic Noteon 07-11-2023 Urology Office/Clinic [...] E&M of Est. Patient Moderate 30-39 Min 22531 Influenza immunization status assessed 1030F Medication list [...] Urnls Dip Stick Auto w/o Microscopy POC 97409 2. ED (erectile dysfunction) (N52.9: Male erectile [...] E&M of Est. Patient Moderate 30-39 Min 57351 Influenza immunization status assessed 1030F Medication list [...] Urnls Dip Stick Auto w/o Microscopy POC 97407 3. Family history of prostate cancer (Z80.42: Family history of malignant neoplasm of prostate) father. PSA: 05/29/20 - 3.11 06/08/21 - 3.45 06/23/22 - 3.14 June 2023 verbal report given ([facility] report over) - 1.13, 34% free RWR [...] E&M of Est. Patient Moderate 30-39 Min 61137 Influenza immunization status assessed 1030F Medication list documented in medical record 1159F Most recent diastolic blood pressure <80 mm Hg 3078F Patient screen for fall (more content not included)... Normal [facility] Comment on above: Result Comment: Elec tronically Signed By: ELLA BECKER PA-C\.br\Date and Time Signed: 07/11/23 16:23 EDT FREE AND TOTAL PSAon 07-05- 024 % FREE PSA 34.9 Normal [facility] Comment on above: Result Comment: Percent [...] BPH. Performed By: #### F TPSA #### [facility] ([id number]) [address] [address] [place] [address] FREE PSA 1.13 ng/mL Normal [facility] Comment on above: Performed By: #### F TPSA #### [facility] ([id number]) [address] [address] [place] [address] PROSTATIC SPEC ANT 3.24 ng/mL Normal 0.00-4.00 [facility] Comment on above: Result Comment: The method used for this test is Magali G5 DXI chemiluminescent immunoassay. Values obtained by different assay methods cannot be used interchangeably. Performed By: #### F TPSA #### [facility] ([id number]) [address] [address] CBC AND AUTO DIFFon 05-04-19 24 ABSOLUTE BASOPHIL 0.0 X10E9/L Normal 0.0-0.2 [facility] Comment on above: Performed By: #### C MP, 2498-4, 80992-9, 2276-4, CBCA #### [facility] ([id number]) [address] [address] ABSOLUTE NEUTROPHIL 3.8 X10E9/L Normal 1.5-6.6 [facility] Comment on above: Performed By: #### C MP, 2498-4, 22531-2, 2276-4, CBCA #### [facility] ([id number]) [address] [address] Basophils/100 WBC (Bld) 0.7 % Normal [facility] Comment on above: Performed By: #### C MP, 2498-4, 32736-6, 2276-4, CBCA #### [facility] ([id number]) [address] [address] [place] [address] Eosinophils (Bld) [#/Vol] 0.3 10*3/uL Normal 0.0-0.4 [facility] Comment on above: Performed By: #### C ROHINI, 2498-4, 46064-0, 2276-4, CBCA #### [facility] ([id number]) [address] [address] Eosinophils/100 WBC (Bld) 4.1 % Normal [facility] Comment on above: Performed By: #### C ROHINI, 2498-4, 50210-6, 2275-, CBCA #### [facility] ([id number]) [address] [address] Erythrocyte distribution width (RBC) [Ratio] 13.4 % Normal 11.5-15.0 [facility] Comment on above: Performed By: #### C ROHINI, 2498-4, 20912-5, 2275-, CBCA #### [facility] ([id number]) [address] [address] [place] [address] Hematocrit (Bld) [Volume fraction] 39.3 % Normal 39-49 [facility] Comment on above: Performed By: #### C ROHINI, 2498-4, 30390-6, 227-4, CBCA #### [facility] ([id number]) [address] [address] Hemoglobin (Bld) [Mass/Vol] 13.5 g/dL Normal 13.0-17.0 [facility] Comment on above: Performed By: #### C ROHINI, 2498-4, 30337-6, 2276-4, CBCA #### [facility] ([id number]) [address] [address] Lymphocytes (Bld) [#/Vol] 2.4 10*3/uL Normal 1.0-3.5 [facility] Comment on above: Performed By: #### C ROHINI, 2498-4, 90651-6, 6-4, CBCA #### [facility] ([id number]) [address] [facility] [address] [place] [address] Lymphocytes/100 WBC (Bld) 34.3 % Normal [facility] Comment on above: Performed By: #### C ROHINI, 2498-4, 67895-9, 2275-4, CBCA #### [facility] ([id number]) [address] [facility] [address] [place] [address] MCH (RBC) [Entitic mass] 30.6 pg Normal 27-34 [facility] Comment on above: Performed By: #### C ROHINI, 2498-4, 39563-7, 6-4, CBCA #### [facility] ([id number]) [address] [facility] [address] [place] [address] MCHC (RBC) [Mass/Vol] 34.3 g/dL Normal 32-36 [facility] Comment on above: Performed By: #### C ROHINI, 2498-4, 58785-3, 2275-4, CBCA #### [facility] ([id number]) [address] [facility] [address] [place] [address] MCV (RBC) [Entitic vol] 89 fL Normal 80-100 [facility] Comment on above: Performed By: #### C ROHINI, 2498-4, 24393-7, 2275-4, CBCA #### [facility] ([id number]) [address] [address] [place] [address] Monocytes (Bld) [#/Vol] 0.5 10*3/uL Normal 0-0.9 [facility] Comment on above: Performed By: #### C ROHINI, 2498-4, 10041-4, 6-4, CBCA #### [facility] ([id number]) [address] [place] [address] Monocytes/100 WBC (Bld) 7.3 % Normal [facility] Comment on above: Performed By: #### C MP, 2498-4, 06838-3, 2276-4, CBCA #### [facility] ([id number]) [address] [place] [address] Neutrophils/100 WBC (Bld) 53.6 % Normal [facility] Comment on above: Performed By: #### C ROHINI, 2498-4, 36031-8, 2276-4, CBCA #### [facility] ([id number]) [address] [place] [address] Platelet mean volume (Bld) [Entitic vol] 8.1 fL Normal 7-12 [facility] Comment on above: Performed By: #### C ROHINI, 2498-4, 49454-9, 2276-4, CBCA #### [facility] ([id number]) [address] [place] [address] Platelets (Bld) [#/Vol] 169 10*3/uL Normal 150-450 [facility] Comment on above: Performed By: #### C MP, 2498-4, 30746-6, 2276-4, CBCA #### [facility] ([id number]) [address] [place] [address] RBC COUNT 4.41 X10E12/L Normal 4.10-5.70 [facility] Comment on above: Performed By: #### C MP, 2498-4, 57740-2, 2276-4, CBCA #### [facility] ([id number]) [address] [place] [address] WBC (Bld) [#/Vol] 7.0 10*3/uL Normal 4.0-11.0 [facility] Comment on above: Performed By: #### C MP, 2498-4, 20192-9, 2276-4, CBCA #### [facility] ([id number]) [address] [place] [address] COMPREHENSIVE METABOLIC PANE Aaron 05-04-2023 Albumin [Mass/Vol] 4.0 g/dL Normal 3.2-5.3 [facility] Comment on above: Performed By: #### C MP, 2498-4, 50477-1, 2276-4, CBCA #### [facility] ([id number]) [address] [place] [address] ALP [Catalytic activity/Vol] 89 U/L Normal 39-130 [facility] Comment on above: Performed By: #### C ROHINI, 2498-4, 23449-9, 2276-4, CBCA #### [facility] ([id number]) [address] [place] [address] ALT [Catalytic activity/Vol] 15 U/L Normal 0-40 [facility] Comment on above: Performed By: #### C MP, 2498-4, 91672-5, 2276-4, CBCA #### [facility] ([id number]) [address] [place] [address] Anion gap [Moles/Vol] 9 mmol/L Normal 5-15 [facility] Comment on above: Performed By: #### C MP, 2498-4, 17573-4, 2276-4, CBCA #### [facility] ([id number]) [address] [place] [address] AST [Catalytic activity/Vol] 13 U/L Normal 0-41 [facility] Comment on above: Performed By: #### C MP, 2498-4, 01403-6, 2276-4, CBCA #### [facility] ([id number]) [address] [address] [place] [address] Bilirubin [Mass/Vol] 1.1 mg/dL Normal 0.3-1.2 [facility] Comment on above: Performed By: #### C MP, 2498-4, 05040-8, 2276-4, CBCA #### [facility] ([id number]) [address] [facility] [address] [place] [address] Calcium [Mass/Vol] 8.9 mg/dL Normal 8.5-10.5 [facility] Comment on above: Performed By: #### C ROHINI, 2498-4, 33887-3, 2276-4, CBCA #### [facility] ([id number]) [address] [address] [place] [address] Chloride [Moles/Vol] 104 mmol/L Normal 98-109 [facility] Comment on above: Performed By: #### C ROHINI, 2498-4, 14458-6, 2276-4, CBCA #### [facility] ([id number]) [address] [address] [place] [address] CO2 [Moles/Vol] 28 mmol/L Normal 22-32 [facility] Comment on above: Performed By: #### C MP, 2498-4, 88891-7, 2276-4, CBCA #### [facility] ([id number]) [address] [address] [place] [address] Creatinine [Mass/Vol] 0.80 mg/dL Normal 0.60-1.30 [facility] Comment on above: Result Comment: METH OD TRACEABLE TO IDMS STANDARD Performed By: #### C MP, 2498-4, 62594-8, 2276-4, CBCA #### [facility] ([id number]) [address] [address] [place] [address] eGFR (CKD-EPI) NON-RACE DEPENDENT >90 Normal >59 [facility] Comment on above: Result Comment: Reported eGFR is based on the CKD-EPI 2020 equation that does not use a race coefficient. Performed By: #### C ROHINI, 2498-4, 43275-8, 2276-4, CBCA #### [facility] ([id number]) [address] [place] [address] Glucose [Mass/Vol] 90 mg/dL Normal 65-99 [facility] Comment on above: Performed By: #### C ROHINI, 2498-4, 30213-3, 2276-4, CBCA #### [facility] ([id number]) [address], [address] [place] [address] Potassium [Moles/Vol] 3.2 mmol/L Low 3.5-5.0 [facility] Comment on above: Performed By: #### C ROHINI, 2498-4, 84169-6, 2276-4, CBCA #### [facility] ([id number]) [address] [place] [address] Protein [Mass/Vol] 6.3 g/dL Normal 6.0-8.0 [facility] Comment on above: Performed By: #### C ROHINI, 2498-4, 90818-0, 2276-4, CBCA #### [facility] ([id number]) [address], [address] [place] [address] Sodium [Moles/Vol] 141 mmol/L Normal 134-146 [facility] Comment on above: Performed By: #### C ROHINI, 2498-4, 29133-8, 2276-4, CBCA #### [facility] ([id number]) [address], [address] [place] [address] Urea nitrogen [Mass/Vol] 20 mg/dL Normal 5-27 [facility] Comment on above: Performed By: #### C ROHINI, 2498-4, 53065-8, 2276-4, CBCA #### [facility] ([id number]) [address] [place] [address] Comprehensive metabolic pane aaron 05-04-2023 Albumin [Mass/Vol] 4.0 g/dL 3.2 - 5.3 g/dL [facility] ALP [Catalytic activity/Vol] 89 U/L 39 - 130 U/L [facility] ALT No additional P-5'-P [Catalytic activity/Vol] 15 U/L 0 - 40 U/L [facility] Anion gap [Moles/Vol] 9 mmol/L 5 - 15 mmol/L [facility] AST [Catalytic activity/Vol] 13 U/L 0 - 41 U/L [facility] Bilirubin [Mass/Vol] 1.1 mg/dL 0.3 - 1.2 mg/dL [facility] Calcium [Mass/Vol] 8.9 mg/dL 8.5 - 10. 5 mg/dL [facility] Chloride [Moles/Vol] 104 mmol/L 98 - 109 mmol/L [facility] CO2 [Moles/Vol] 28 mmol/L 22 - 32 mmol/L [facility] Creatine [Mass/Vol] 0.80 mg/dL 0.60 - 1 .30 mg/dL [facility] Comment on above: METHOD TRACEABLE TO IDWA STANDARD GFR/1.73 sq M.predicted among non-blacks MDRD (S/P/Bld) [Vol rate/Area] mL/min/{1.73_m2} - [facility] Comment on above: Reported eGFR is based on the CKD-EPI 2020 equation that does not use a race coefficient. PERFORMED AT [facility] [address],[place] [address] Glucose [Mass/Vol] 90 mg/dL 65 - 99 mg/dL [facility] Potassium [Moles/Vol] 3.2 mmol/L Low 3.5 - 5.0 mmol/L [facility] Protein [Mass/Vol] 6.3 g/dL 6.0 - 8.0 g/dL [facility] Sodium [Moles/Vol] 141 mmol/L 134 - 146 mmol/L [facility] Urea nitrogen [Mass/Vol] 20 mg/dL 5 - 27 mg/dL [facility] FERRITINon 05-04-2023 Ferritin [Mass/Vol] 99 ng/mL Normal 24-336 [facility] Comment on above: Performed By: #### C ROHINI, 2498-4, 73709-0, 2276-4, CBCA #### [facility] ([id number]) [address] [place] [address] HGB A1C (GLYCO-HGB)on 2023 Glucose [Mass/Vol] 226 mg/dL Normal [facility] Comment on above: Performed By: #### C ROHINI, 2498-4, 50310-9, 2275-4, CBCA #### [facility] ([id number]) [address] [facility] [address] [place] [address] HbA1c (Bld) [Mass fraction] 9.5 % High 4.4-5.6 [facility] Comment on above: Result Comment: NOTE ADA Guidelines Result HgbA1c Normal : less than 5.7 % Prediabetes : 5.7 % to 6.4 % Diabetes : > 6.4 % Use with caution in patients with abnormal hemoglobin variants as the half-life of red blood cells and in vivo glycation rates are affected. Performed By: #### David NOVA, 2498-4, 10665-8, 6-4, CBCA #### [facility] ([id number]) [address], [address] [place] [address] IRONon 05-04-2023 Iron [Mass/Vol] 54 ug/dL Normal 50-212 [facility] Comment on above: Performed By: #### David NOVA, 2498-4, 13045-8, 2276-4, CBCA #### [facility] ([id number]) [address] [place] [address] Lipid 1996 panelon Cholesterol [Mass/Vol] 104 mg/dL Low 150-200 [facility] Comment on above: Performed By: ###Erki Hernandez MP, 8-4, 46714-2, 2275-4, CBCA #### [facility] ([id number]) [address] [place] [address] Cholesterol in HDL [Mass/Vol] 42 mg/dL Normal >39 [facility] Comment on above: Result Comment: HDL <40 mg/dL - High Risk HDL > or = 40mg/dL- Desirable HDL >60 mg/dL - Negative Risk Performed By: ###Erik Hernandez MP, 2497-4, 17796-8, 2275-06, CBCA #### [facility] ([id number]) [address] [place] [address] Cholesterol in LDL [Mass/Vol] 37 mg/dL Normal <130 [facility] Comment on above: Result Comment: LDL <100 mg/dL - Desirable LDL >160 mg/dL - High Risk Performed By: #### David NOVA, 2497-4, 49097-3, 2275-4, CBCA #### [facility] ([id number]) [address] [place] [address] Cholesterol in VLDL [Mass/Vol] 25 mg/dL Normal 0-30 [facility] Comment on above: Performed By: ###Erik Hernandez MP, 8-4, 36983-7, 2275-, CBCA #### [facility] ([id number]) [address], [address] [place] [address] CHOLESTEROL:HDL 2.5 Normal 1.0-5.0 [facility] Comment on above: Performed By: #### C MP, 2498-4, 68124-6, 2276-4, CBCA #### [facility] ([id number]) [address] [place] [address] Triglyceride [Mass/Vol] 127 mg/dL Normal 27-150 [facility] Comment on above: Performed By: #### C MP, 2498-4, 87852-6, 2276-4, CBCA #### [facility] ([id number]) [address] [facility], [address] [place] [address] MICROALBUMIN - ALBUMIN:CREAT ININE URINE RATIOon 05-04-2023 ALB/CREAT RATIO NOT CALCULATED Normal 0.0-30.0 [facility] Comment on above: Result Comment: Result for Albumin/Creatinine Ratio cannot be reliably calculated because urine albumin and or urine creatinine is below the detection limit of the assay. Performed By: #### M ALBU #### [facility] ([id number]) [address] [facility], [address] [place] [address] Albumin DL <= 20 mg/L (U) [Mass/Vol] mg/dL Normal 0.0-1.9 [facility] Comment on above: Performed By: #### M ALBU #### [facility] ([id number]) [address] [facility], [address] [address] URINE CREAT 108.56 mg/dL Normal [facility] Comment on above: Performed By: #### M ALBU #### [facility] ([id number]) [address] [facility] [address] [place] [address] No Panel Informationon 05-04 Interpretation and review of laboratory results Abnormal [facility] URINALYSISon 05-04-2023 Bilirubin Ql (U) Negative Normal NEG [facility] Comment on above: Performed By: #### M ALBU #### [facility] ([id number]) [address] [facility] [address] [place] [address] BLOOD/HGB Negative Normal NEG [facility] Comment on above: Performed By: #### M ALBU #### [facility] ([id number]) [address] [place] [address] Color (U) YELLOW Normal YELLOW [facility] Comment on above: Performed By: #### M ALBU #### [facility] ([id number]) [address] [place] [address] Glucose Ql (U) >1000 Abnormal NEG [facility] Comment on above: Performed By: #### M ALBU #### [facility] ([id number]) [address] [place] [address] Hyaline casts LM Ql (Urine sed) 1 /lpf Normal 0-2 [facility] Comment on above: Performed By: #### M ALBU #### [facility] ([id number]) [address] [place] [address] Ketones Ql (U) Negative Normal NEG [facility] Comment on above: Performed By: #### M ALBU #### [facility] ([id number]) [address] [place] [address] Leukocyte esterase Test strip Ql (U) Negative Normal NEG [facility] Comment on above: Result Comment: HIGH CONCENTRATIONS OF GLUCOSE MAY DECREASE THE REACTIVITY OF THE DIPSTICK LEUKOCYTE TEST PAD. Performed By: #### M ALBU #### [facility] ([id number]) [address] [place] [address] MUCOUS PRESENT Abnormal NONE [facility] Comment on above: Performed By: #### M ALBU #### [facility] ([id number]) [address] [place] [address] Nitrite Ql (U) Negative Normal NEG [facility] Comment on above: Performed By: #### M ALBU #### [facility] ([id number]) [address] [place] [address] pH (U) 5.5 [pH] Normal 5.0-8.5 [facility] Comment on above: Performed By: #### M ALBU #### [facility] ([id number]) [address] [place] [address] Protein Ql (U) Trace Abnormal NEG [facility] Comment on above: Performed By: #### M ALBU #### [facility] ([id number]) [address] [place] [address] R.B.CELLS 1 /hpf Normal 0-5 [facility] Comment on above: Performed By: #### M ALBU #### [facility] ([id number]) [address] [place] [address] Specific gravity (U) [Rel density] 1.023 Normal 1.003-1.035 [facility] Comment on above: Performed By: #### M ALBU #### [facility] ([id number]) [address] [place] [address] SQUAMOUS EPITHELIUM <1 Normal 0-5 [facility] Comment on above: Performed By: #### M ALBU #### [facility] ([id number]) [address] [place] [address] TURBIDITY CLEAR Normal CLEAR [facility] Comment on above: Performed By: #### M ALBU #### [facility] ([id number]) [address] [place] [address] Urobilinogen (U) [Mass/Vol] mg/dL Normal <1.1 [facility] Comment on above: Performed By: #### M ALBU #### [facility] ([id number]) [address] [place] [address] W.B.CELLS 1 /hpf Normal 0-5 [facility] Comment on above: Performed By: #### M ALBU #### [facility] ([id number]) [address] [place] [address], [address] [place] [address] Urinalysis, manual onlyon Epithelial cells Auto (Urine sed) [#/Area] <1 [facility] Glucose (U) [Mass/Vol] mg/dL Abnormal Negative mg/dL [facility] Hemoglobin Auto test strip Ql (U) Negative Negative [facility] Hyaline casts (Urine sed) [#/Area] 1 /[LPF] [facility] Ketones (U) [Mass/Vol] Negative Negative mg/dL [facility] Leukocyte esterase Auto test strip Ql (U) Negative Negative [facility] Comment on above: HIGH CONCENTRATIONS OF GLUCOSE MAY DECREASE THE REACTIVITY OF THE DIPSTICK LEUKOCYTE TEST PAD. Mucus Ql (Urine sed) PRESENT Abnormal NONE [facility] Nitrite Auto test strip Ql (U) Negative Negative [facility] Protein (U) [Mass/Vol] Trace Abnormal Negative mg/dL [facility] RBC Auto (Urine sed) [#/Area] 1 [facility] Specific gravity Refractometry automated (U) [Rel density] 1.023 1.003 - 1.035 [facility] Turbidity Ql (U) CLEAR CLEAR [facility] Urobilinogen Qn (U) <1.1 NINF [facility] WBC Auto (Urine sed) [#/Area] 1 [facility] Office Visiton 04-18-2023 Follow-up visit [id number] Kimmy Mcarthur 1945 M Date Provider Department Center 04/18/2023 Kacie-NATASHA CAMPO [facility] Ed Roland Family History Problem Relation Age of Onset Cancer Father Diabetes Father Family Status - Relation Status Age at Father Level of Service:59794 [place] OFFICE/OUTPATIENT ESTABLISHED LOW MDM 20 MIN Normal [facility] Ynes 02-28-2023 GINGERS -- Attestation signed by Natasha Campo MD at 02/28/2023 11:53 AM Natasha Campo MD, MPH, [facility], [facility], [facility] Interventional Cardiology Pager Email: [email or web address] Patient: Kimmy Mcarthur Procedure Information Date/Time: 02/28/23929 Procedure: TRANSESOPHAGEAL ECHO (HARMONY) Location: [facility] V[facility] Vascular Lab [...] discussed with fellow. Additional Equipment Requests Normal [facility] ANES -- Attestation signed by Cecilia [...] Date/Time: 02/28/23929 Procedure: TRANSESOPHAGEAL ECHO (HARMONY) Location: [facility] Vascular Lab Clinical information reviewed: [facility] Meds Physical Exam Airway Mallampati: III TM distance: <3 FB Neck ROM: full Cardiovascular Rhythm: regular Rate: normal Dental Pulmonary - normal exam Abdominal - normal exam Abdomen: soft Anesthesia Plan ASA 3 other (Conscious sedation) Anesthetic plan and risks discussed with patient. Use of blood products discussed with patient who consented to blood products. Plan discussed with fellow. Additional Equipment Requests Normal [facility] HPon 02-28-2023 -- Attestation signed by Natasha Campo MD at 02/28/2023 11:53 AM Natasha Campo MD, MPH, [facility], [facility], [facility] Interventional Cardiology Pager Email: [email or web address] History Of Present Illness Kimmy Mcarthur is [...] past medical history of Carotid artery disorder ([facility]), Coronary artery disease, Diabetes mellitus ([facility]), Heart valve disease, Hypertension, and PAD (peripheral artery disease) ([facility]). Surgical History He has a past surgical [...] - further recs pending cath results Normal [facility] HP -- Attestation signed by Cecilia Mathis MD [...] past medical history of Carotid artery disorder ([facility]), Coronary artery disease, Diabetes mellitus ([facility]), Heart valve disease, Hypertension, and PAD (peripheral artery disease) ([facility]). Surgical History He has a past surgical [...] ankle brachial index (FADY) without exercise 03/03/2022 [id number] Final Review of Systems All other systems [...] agreed to proceed forward with the testing. [facility] Fly 02-28-2023 SHIRANOTEmmanuel RN educated pt on d/ c instructions. RN encouraged pt to voice any questions or concerns. Pt verbalizes no questions or concerns at this time. Pt was wheeled off of unit with all of belongings. [facility] NURSNOTE Bedside swallow stud y completed and passed. [facility] Orders Onlyon 02-09-2023 Orders Only [id number] Kimmy Mcarthur 1945 M Date Provider Department Center 02/09/2023 JENNIFFER GAYTAN EBONY [facility] Family History Problem Relation Age of Onset Cancer Father Diabetes Father Family Status - Relation Status Age at Father [facility] Office Visiton 12-29-2022 Follow-up visit [id number] Kimmy Mcarthur 1945 M Date Provider Department Center 12/29/2022 Kacie-NATASHA CAMPO [facility] Family History Problem Relation Age of Onset Cancer Father Diabetes Father Family Status - Relation Status Age at Father Level of Service:04919 [place] OFFICE/OUTPATIENT ESTABLISHED MOD MDM 30-39 MIN [facility] CBC AUTO DIFFon 06-11-2022 BASO # 0.0 103/ul Normal 0.0-0.1 [facility] Comment on above: Performed By: #### C BC #### [facility] [address] [place] [address] Dr. Enohc Stein Basophils/100 WBC (Bld) 0.6 % Normal 0.2-2.0 [facility] Comment on above: Performed By: #### C BC #### [facility] [address] [place] [address] Dr. Enoch Stein EO # 0.2 103/ul Normal 0.0-0.7 [facility] Comment on above: Performed By: #### C BC #### [facility] [address] [address] [address] Enoch Stein Eosinophils/100 WBC (Bld) 2.9 % Normal 0.9-7.0 [facility] Comment on above: Performed By: #### C BC #### [facility] [address] [place] [address] Dr. Enoch Stein Erythrocyte distribution width (RBC) [Ratio] 13.7 % Normal 11.0-15.0 [facility] Comment on above: Performed By: #### C BC #### [facility] [address] [place] [address] Dr. Enoch Stein Hematocrit (Bld) [Volume fraction] 35.6 % Critically low 42.0-54.0 [facility] Comment on above: Performed By: #### C BC #### [facility] [address] [place] [address] Dr. Enoch Stein Hemoglobin (Bld) [Mass/Vol] 11.7 g/dL Critically low 14.0-18.0 [facility] Comment on above: Performed By: #### C BC #### [facility] [address] [place] [address] Dr. Enoch Stein IG # 0.03 10e3/ul Normal 0.00-0.03 [facility] Comment on above: Performed By: #### C BC #### [facility] [address] [place] [address] Dr. Enoch Stein IG % 0.5 % Normal 0.0-0.5 [facility] Comment on above: Performed By: #### C BC #### [facility] [address] [place] [address] Dr. Enoch Stein LYMPH # 2.2 103/ul Normal 1.2-3.8 [facility] Comment on above: Performed By: #### C BC #### [facility] [address] [place] [address] Dr. Enoch Stein Lymphocytes/100 WBC (Bld) 35.4 % Normal 20.5-60.0 [facility] Comment on above: Performed By: #### C BC #### [facility] [address] [place] [address] Dr. Enoch Stein MANUAL DIFF REQ NO Normal [facility] Comment on above: Performed By: #### C BC #### [facility] [address] [place] [address] Dr. Enoch Stein MCH (RBC) [Entitic mass] 30.5 pg Normal 25.9-34.0 [facility] Comment on above: Performed By: #### C BC #### [facility] [address] [address] [address] Enoch Stein MCHC (RBC) [Mass/Vol] 32.9 g/dL Normal 29.9-35.2 [facility] Comment on above: Performed By: #### C BC #### [facility] [address] [address] [address] Enoch Stein MCV (RBC) [Entitic vol] 92.7 fL Normal 80.0-94.0 [facility] Comment on above: Performed By: #### C BC #### [facility] [address] [address] [address] Enoch Stein MONO # 0.5 103/ul Normal 0.3-0.8 [facility] Comment on above: Performed By: #### C BC #### [facility] [address] [place] [address] Dr. Enoch Stein Monocytes/100 WBC (Bld) 7.6 % Normal 1.7-12.0 [facility] Comment on above: Performed By: #### C BC #### [facility] [address] [place] [address] Dr. Enoch Stein NEUT # 3.3 103/ul Normal 1.4-6.5 [facility] Comment on above: Performed By: #### C BC #### [facility] [address] [place] [address] Dr. Enoch Stein Neutrophils/100 WBC (Bld) 53.0 % Normal 43.0-75.0 [facility] Comment on above: Performed By: #### C BC #### [facility] [address] [place] [address] Dr. Enoch Stein Platelet mean volume (Bld) [Entitic vol] 9.4 fL Critically low 9.5-13.5 [facility] Comment on above: Performed By: #### C BC #### [facility] [address] [place] [address] Dr. Enoch Stein PLT 225 103/ul Normal 150-450 [facility] Comment on above: Performed By: #### C BC #### [facility] [address] [place], [place] [address] Dr. Enoch Stein RBC 3.84 106/ul Critically low 4.70-6.10 [facility] Comment on above: Performed By: #### C BC #### [facility] [address] [place], [place] [address] Dr. Enoch Stein WBC 6.2 103/ul Normal 4.0-11.0 [facility] Comment on above: Performed By: #### C BC #### [facility] [address] [place], [place] [address] Dr. Enoch Stein ECHOCARDIO M/2D COMPLETEon 0 06-11-2022 ECHOCARDIO M/2D COMPLETE Patient: KIMMY MCARTHUR Exam Date: 06/11/2022 : 1945 Gender:M Ordering : MARCO LalitaJose Juan CONDON Admission #: [id number] Family : ELO BOYCE COPIER TECHNICIAN Order #: [id number] CLICK HERE TO VIEW EXAM ECHOCARDIOGRAM REPORT PROCEDURE: CARDIO PULMONARY ECHOCARDIO M/2D COMP INDICATIONS: Dyspnea on exertion, post-COVID chronic dyspnea, MO, PTCA, hypertension, diabetes COMPARISON: None. DESCRIPTION: COMPLETE [...] Campo M.D. on 06/11/2022 at 14:32 Normal [facility] FERRITINon 06-11-2022 Ferritin [Mass/Vol] 52.0 ng/mL Normal 26.0-388.0 [facility] Comment on above: Performed By: #### F ERR, IRON, VITB12 #### [facility] [address] [address] [address] Enoch Stein GLYCOHEMOGLOBIN A1Con 2022 ADA RECOMMENDATION SEE BELOW Normal [facility] Comment on above: Result Comment: ADA RECOMMENDED LIMIT 4.0 - 6.0 ADA THERAPEUTIC TARGET < 7.0 ACTION SUGGESTED > 7.0 Performed By: #### F ERR, IRON, VITB12 #### [facility] [address] [address] [address] Enoch Stein Glucose [Mass/Vol] 180 mg/dL Normal [facility] Comment on above: Performed By: #### F ERR, IRON, VITB12 #### [facility] [address] [address] [address] Enoch Stein HbA1c (Bld) [Mass fraction] 7.9 % Critically high 4.5-6.2 [facility] Comment on above: Performed By: #### F ERR, IRON, VITB12 #### [facility] [address] [address] [address] Enoch Stein IRONon 06-11-2022 Iron [Mass/Vol] 86.0 ug/dL Normal 65.0-175.0 [facility] Comment on above: Performed By: #### F ERR, IRON, VITB12 #### [facility] [address] [address] [address] Enoch Stein LIPID PROFILEon 06-11-2022 CHOL-HDL RATIO NORM SEE BELOW Normal [facility] Comment on above: Result Comment: 3.3 - 4.4 LOW RISK 4.4 - 7.1 AVERAGE RISK 7.1 - 11.0 MODERATE RISK >11.0 HIGH RISK Performed By: #### F ERR, IRON, VITB12 #### [facility] [address] [address] [address] Enoch Stein Cholesterol [Mass/Vol] 113 mg/dL Normal <=200 [facility] Comment on above: Performed By: #### F ERR, IRON, VITB12 #### [facility] [address] [address] [address] Enoch Stein Cholesterol in HDL [Mass/Vol] 52 mg/dL Normal 40-60 [facility] Comment on above: Performed By: #### F ERR, IRON, VITB12 #### [facility] [address] [address] [address] Enoch Stein Cholesterol in LDL [Mass/Vol] 47.0 mg/dL Normal [facility] Comment on above: Performed By: #### F ERR, IRON, VITB12 #### [facility] [address] [address] [address] Enoch Stein Cholesterol.total/C holesterol in HDL [Mass ratio] 2.2 {ratio} Normal [facility] Comment on above: Performed By: #### F ERR, IRON, VITB12 #### [facility] [address] [address] [address] Enoch Stein HDL NORMAL > or = 60 mg/dl - LO W CARDIOVASCULAR RISK <40 mg/dl - HIGH CARDIOVASCULAR RISK Normal [facility] Comment on above: Performed By: #### F ERR, IRON, VITB12 #### [facility] [address] [address] [address] Enoch Stein LDL CALC NORMAL SEE BELOW Normal [facility] Comment on above: Result Comment: <100 mg/dl OPTIMAL 100 - 129 mg/dl NEAR OR ABOVE OPTIMAL 130 - 159 mg/dl BORDERLINE HIGH 160 - 189 mg/dl HIGH >190 mg/dl VERY HIGH Performed By: #### F ERR, IRON, VITB12 #### [facility] [address] [address] [address] Enoch Stein Triglyceride [Mass/Vol] 70 mg/dL Normal <=150 [facility] Comment on above: Performed By: #### F ERR, IRON, VITB12 #### [facility] [address] [address] [address] Enoch Stein VLDL CALC 14.0 mg/dL Normal [facility] Comment on above: Performed By: #### F ERR, IRON, VITB12 #### [facility] [address] [place] [address] Dr. Enoch Stein MICROALBUMIN, RAND URon 05-26 mALB <1.3 Normal <=30.0 [facility] Comment on above: Performed By: #### M ALBR #### [facility] [address] [place] [address] Dr. Enoch Stein PROF 14(COMP METB)on 023 Albumin [Mass/Vol] 3.7 g/dL Normal 3.4-5.0 [facility] Comment on above: Performed By: #### F ERR, IRON, VITB12 #### [facility] [address] [place] [address] Dr. Enoch Stein Albumin/Globulin [Mass ratio] 1.2 {ratio} Normal [facility] Comment on above: Performed By: #### F ERR, IRON, VITB12 #### [facility] [address] [place] [address] Dr. Enoch Stein ALP [Catalytic activity/Vol] 90 U/L Normal 46-116 [facility] Comment on above: Performed By: #### F ERR, IRON, VITB12 #### [facility] [address] [place] [address] Dr. Enoch Stein ALT [Catalytic activity/Vol] 34 U/L Normal 16-63 [facility] Comment on above: Performed By: #### F ERR, IRON, VITB12 #### [facility] [address] [address] [address] Enoch Stein Anion gap [Moles/Vol] 14.8 mmol/L Normal [facility] Comment on above: Performed By: #### F ERR, IRON, VITB12 #### [facility] [address] [address] [address] Enoch Stein AST [Catalytic activity/Vol] 22 U/L Normal 15-37 [facility] Comment on above: Performed By: #### F ERR, IRON, VITB12 #### [facility] [address] [place] [address] Dr. Enoch Stein Bilirubin [Mass/Vol] 0.6 mg/dL Normal 0.2-1.0 [facility] Comment on above: Performed By: #### F ERR, IRON, VITB12 #### [facility] [address] [place] [address] Dr. Enoch Stein Calcium [Mass/Vol] 9.7 mg/dL Normal 8.5-10.1 [facility] Comment on above: Performed By: #### F ERR, IRON, VITB12 #### [facility] [address] [place] [address] Dr. Eonch Stein Chloride [Moles/Vol] 105 mmol/L Normal 98-107 [facility] Comment on above: Performed By: #### F ERR, IRON, VITB12 #### [facility] [address] [place] [address] Dr. Enoch Stein CO2 [Moles/Vol] 26.7 mmol/L Normal 21.0-32.0 [facility] Comment on above: Performed By: #### F ERR, IRON, VITB12 #### [facility] [address] [place] [address] Dr. Enoch Stein Creatinine [Mass/Vol] 0.78 mg/dL Normal 0.70-1.30 [facility] Comment on above: Performed By: #### F ERR, IRON, VITB12 #### [facility] [address] [address] [address] Enoch Stein EGFR-AF MEXICAN >60 Normal >=60 [facility] Comment on above: Performed By: #### F ERR, IRON, VITB12 #### [facility] [address] [address] [address] Enoch Stein EGFR-NON AF MEXICAN >60 Normal >=60 [facility] Comment on above: Performed By: #### F ERR, IRON, VITB12 #### [facility] [address] [address] [address] Enoch Stein Globulin (S) [Mass/Vol] 3.2 g/dL Normal [facility] Comment on above: Performed By: #### F ERR, IRON, VITB12 #### [facility] [address] [place] [address] Dr. Enoch Stein Glucose [Mass/Vol] 179 mg/dL Critically high 74-106 [facility] Comment on above: Performed By: #### F ERR, IRON, VITB12 #### [facility] [address] [address] [address] Enoch Stein Potassium [Moles/Vol] 4.5 mmol/L Normal 3.5-5.1 [facility] Comment on above: Performed By: #### F ERR, IRON, VITB12 #### [facility] [address] [address] [address] Enoch Stein Protein [Mass/Vol] 6.9 g/dL Normal 6.4-8.2 [facility] Comment on above: Performed By: #### F ERR, IRON, VITB12 #### [facility] [address] [address] [address] Enoch Stein Sodium [Moles/Vol] 142 mmol/L Normal 136-145 [facility] Comment on above: Performed By: #### F ERR, IRON, VITB12 #### [facility] [address] [address] [address] Enoch Stein Urea nitrogen [Mass/Vol] 19.0 mg/dL Critically high 7.0-18.0 [facility] Comment on above: Performed By: #### F ERR, IRON, VITB12 #### [facility] [address] [place] [address] Dr. Enoch Stein Urea nitrogen/Creatinine [Mass ratio] 24.4 mg/mg Normal [facility] Comment on above: Performed By: #### F ERR, IRON, VITB12 #### [facility] [address] [place] [address] Dr. Enoch Stein UA RANDOM W/MICROSCOPICon BACTERIA NONE SEEN Normal NONE SEEN [facility] Comment on above: Performed By: #### U AMIC #### [facility] [address] [place] [address] Dr. Enoch Stein Bilirubin Ql (U) Negative Normal NEGATIVE [facility] Comment on above: Performed By: #### U AMIC #### [facility] [address] [place] [address] Dr. Enoch Stein CAST NONE SEEN Normal NONE SEEN [facility] Comment on above: Performed By: #### U AMIC #### [facility] [address] [place] [address] Dr. Enoch Stein Clarity (U) CLEAR Normal CLEAR [facility] Comment on above: Performed By: #### U AMIC #### [facility] [address] [place] [address] Dr. Enoch Stein Color (U) LT. YELLOW Normal YELLOW [facility] Comment on above: Performed By: #### U AMIC #### [facility] [address] [place] [address] Dr. Enoch Stein Crystals LM Nom (Urine sed) NONE SEEN Normal NONE SEEN [facility] Comment on above: Performed By: #### U AMIC #### [facility] [address] [place] [address] Dr. Enoch Stein Epithelial cells LM Ql (Urine sed) NONE SEEN Normal NONE SEEN /RARE [facility] Comment on above: Performed By: #### U AMIC #### [facility] [address] [place] [address] Dr. Enoch Stein Glucose Ql (U) 250 mg/dl Abnormal NEGATIVE [facility] Comment on above: Performed By: #### U AMIC #### [facility] [address] [address] [address] Enoch Stein Hemoglobin Ql (U) Negative Normal NEGATIVE [facility] Comment on above: Performed By: #### U AMIC #### [facility] [address] [address] [address] Enoch Stein Ketones Ql (U) Negative Normal NEGATIVE [facility] Comment on above: Performed By: #### U AMIC #### [facility] [address] [address] [address] Enoch Stein LEUKOCYTES Negative Normal NEGATIVE [facility] Comment on above: Performed By: #### U AMIC #### [facility] [address] [place] [address] Dr. Enoch Stein MUCOUS TRACE Abnormal NONE SEEN [facility] Comment on above: Performed By: #### U AMIC #### [facility] [address] [address] [address] Enoch Stein Nitrite Ql (U) Negative Normal NEGATIVE [facility] Comment on above: Performed By: #### U AMIC #### [facility] [address] [address] [address] Enoch Stein pH (U) 5.5 [pH] Normal 5-9 [facility] Comment on above: Performed By: #### U AMIC #### [facility] [address] [address] [address] Enoch Stein RBC NONE SEEN Abnormal 0-2 [facility] Comment on above: Performed By: #### U AMIC #### [facility] [address] [address] [address] Enoch Stein SPEC GRAVITY 1.020 Normal 1.005-<=1.025 [facility] Comment on above: Performed By: #### U AMIC #### [facility] [address] [address] [address] Enoch Stein UA PROTEIN Negative Normal NEGATIVE/ TRACE [facility] Comment on above: Performed By: #### U AMIC #### [facility] [address] [address] [address] Enoch Stein Urobilinogen Qn (U) 0.2 {Reilly'U}/dL Normal 0.2 - 1. 0 [facility] Comment on above: Performed By: #### U AMIC #### [facility] [address] [address] [address] Enoch Stein WBC NONE SEEN Normal NONE SEEN [facility] Comment on above: Performed By: #### U AMIC #### [facility] [address] [address] [address] Enoch Stein VITAMIN B12on 06-11-2022 Cobalamin (Vitamin B12) [Mass/Vol] 413.0 pg/mL Normal 193.0-986.0 [facility] Comment on above: Performed By: #### F ERR, IRON, VITB12 #### [facility] [address] [place] [address] ABD/PELV W CONon [...] SANJAY REECE Date: 2022-01-06 16:24 Normal [facility] AMYLASEon 01-05-2022 Amylase [Catalytic activity/Vol] 55 U/L Normal 25-115 [facility] Comment on above: Performed By: #### F ERR, IRON, VITB12 #### [facility] [address] [place] [address] Dr. Enoch Stein CBC AUTO DIFFon 01-05-2022 BASO # 0.0 103/ul Normal 0.0-0.1 [facility] Comment on above: Performed By: #### F ERR, IRON, VITB12 #### [facility] [address] [place] [address] Dr. Enoch Stein Basophils/100 WBC (Bld) 0.5 % Normal 0.2-2.0 [facility] Comment on above: Performed By: #### F ERR, IRON, VITB12 #### [facility] [address] [place] [address] Dr. Enoch Stein EO # 0.3 103/ul Normal 0.0-0.7 [facility] Comment on above: Performed By: #### F ERR, IRON, VITB12 #### [facility] [address] [place] [address] Dr. Enoch Stein Eosinophils/100 WBC (Bld) 3.7 % Normal 0.9-7.0 [facility] Comment on above: Performed By: #### F ERR, IRON, VITB12 #### [facility] [address] [place] [address] Dr. Enoch Stein Erythrocyte distribution width (RBC) [Ratio] 13.2 % Normal 11.0-15.0 [facility] Comment on above: Performed By: #### F ERR, IRON, VITB12 #### [facility] [address] [place] [address] Dr. Enoch Stein Hematocrit (Bld) [Volume fraction] 39.3 % Critically low 42.0-54.0 [facility] Comment on above: Performed By: #### F ERR, IRON, VITB12 #### [facility] [address] [place] [address] Dr. Enoch Stein Hemoglobin (Bld) [Mass/Vol] 13.0 g/dL Critically low 14.0-18.0 [facility] Comment on above: Performed By: #### F ERR, IRON, VITB12 #### [facility] [address] [place] [address] Dr. Enoch Stein IG # 0.04 10e3/ul Critically high 0.00-0.03 [facility] Comment on above: Performed By: #### F ERR, IRON, VITB12 #### [facility] [address] [place] [address] Dr. Enoch Stein IG % 0.5 % Normal 0.0-0.5 [facility] Comment on above: Performed By: #### F ERR, IRON, VITB12 #### [facility] [address] [place] [address] Dr. Enoch Stein LYMPH # 1.6 103/ul Normal 1.2-3.8 [facility] Comment on above: Performed By: #### F ERR, IRON, VITB12 #### [facility] [address] [place] [address] Dr. Enoch Stein Lymphocytes/100 WBC (Bld) 20.4 % Critically low 20.5-60.0 [facility] Comment on above: Performed By: #### F ERR, IRON, VITB12 #### [facility] [address] [place] [address] Dr. Enoch Stein MANUAL DIFF REQ NO Normal [facility] Comment on above: Performed By: #### F ERR, IRON, VITB12 #### [facility] [address] [place] [address] Dr. Enoch Stein MCH (RBC) [Entitic mass] 30.5 pg Normal 25.9-34.0 [facility] Comment on above: Performed By: #### F ERR, IRON, VITB12 #### [facility] [address] [place] [address] Dr. Enoch Stein MCHC (RBC) [Mass/Vol] 33.1 g/dL Normal 29.9-35.2 [facility] Comment on above: Performed By: #### F ERR, IRON, VITB12 #### [facility] [address] [place] [address] Dr. Enoch Stein MCV (RBC) [Entitic vol] 92.3 fL Normal 80.0-94.0 [facility] Comment on above: Performed By: #### F ERR, IRON, VITB12 #### [facility] [address] [place] [address] Dr. Enoch Stein MONO # 0.4 103/ul Normal 0.3-0.8 [facility] Comment on above: Performed By: #### F ERR, IRON, VITB12 #### [facility] [address] [place] [address] Dr. Enoch Stein Monocytes/100 WBC (Bld) 4.7 % Normal 1.7-12.0 [facility] Comment on above: Performed By: #### F ERR, IRON, VITB12 #### [facility] [address] [place] [address] Dr. Enoch Stein NEUT # 5.6 103/ul Normal 1.4-6.5 [facility] Comment on above: Performed By: #### F ERR, IRON, VITB12 #### [facility] [address] [place] [address] Dr. Enoch Stein Neutrophils/100 WBC (Bld) 70.2 % Normal 43.0-75.0 [facility] Comment on above: Performed By: #### F ERR, IRON, VITB12 #### [facility] [address] [place] [address] Dr. Enoch Stein Platelet mean volume (Bld) [Entitic vol] 10.2 fL Normal 9.5-13.5 [facility] Comment on above: Performed By: #### F ERR, IRON, VITB12 #### [facility] [address] [address] [address] Enoch Stein PLT 192 103/ul Normal 150-450 [facility] Comment on above: Performed By: #### F ERR, IRON, VITB12 #### [facility] [address] [address] [address] Enoch Stein RBC 4.26 106/ul Critically low 4.70-6.10 [facility] Comment on above: Performed By: #### F ERR, IRON, VITB12 #### [facility] [address] [address] [address] Enoch Stein WBC 8.0 103/ul Normal 4.0-11.0 [facility] Comment on above: Performed By: #### F ERR, IRON, VITB12 #### [facility] [address] [place] [address] Dr. Enoch Stein CULTURE URINEon 01-05-2022 CULTURE URINE Culture Observations : NO GROWTH. Normal [facility] Comment on above: Performed By: #### F ERR, IRON, VITB12 #### [facility] [address] [place] [address] Dr. Enoch Stein GLYCOHEMOGLOBIN A1Con 2021 ADA RECOMMENDATION SEE BELOW Normal [facility] Comment on above: Result Comment: ADA RECOMMENDED LIMIT 4.0 - 6.0 ADA THERAPEUTIC TARGET < 7.0 ACTION SUGGESTED > 7.0 Performed By: #### A 1C #### [facility] [address] [place] [address] Dr. Enoch Stein Glucose [Mass/Vol] 166 mg/dL Normal [facility] Comment on above: Performed By: #### A 1C #### [facility] [address] [place] [address] Dr. Enoch Stein HbA1c (Bld) [Mass fraction] 7.4 % Critically high 4.5-6.2 [facility] Comment on above: Performed By: #### A 1C #### [facility] [address] [place] [address] Dr. Enoch Stein LIPASEon 01-05-2022 Lipase [Catalytic activity/Vol] 86.0 U/L Normal 73.0-393.0 [facility] Comment on above: Performed By: #### F ERR, IRON, VITB12 #### [facility] [address] [address] [address] Enoch Stein PROF 14(COMP METB)on 022 Albumin [Mass/Vol] 3.8 g/dL Normal 3.4-5.0 [facility] Comment on above: Performed By: #### F ERR, IRON, VITB12 #### [facility] [address] [address] [address] Enoch Stein Albumin/Globulin [Mass ratio] 1.1 {ratio} Normal [facility] Comment on above: Performed By: #### F ERR, IRON, VITB12 #### [facility] [address] [address] [address] Enoch Stein ALP [Catalytic activity/Vol] 101 U/L Normal 46-116 [facility] Comment on above: Performed By: #### F ERR, IRON, VITB12 #### [facility] [address] [address] [address] Enoch Stein ALT [Catalytic activity/Vol] 25 U/L Normal 16-63 [facility] Comment on above: Performed By: #### F ERR, IRON, VITB12 #### [facility] [address] [address] [address] Enoch Stein Anion gap [Moles/Vol] 15.2 mmol/L Normal [facility] Comment on above: Performed By: #### F ERR, IRON, VITB12 #### [facility] [address] [address] [address] Enoch Stein AST [Catalytic activity/Vol] 14 U/L Critically low 15-37 [facility] Comment on above: Performed By: #### F ERR, IRON, VITB12 #### [facility] [address] [address] [address] Enoch Stein Bilirubin [Mass/Vol] 1.0 mg/dL Normal 0.2-1.0 [facility] Comment on above: Performed By: #### F ERR, IRON, VITB12 #### [facility] [address] [place] [address] Dr. Enoch Stein Calcium [Mass/Vol] 9.4 mg/dL Normal 8.5-10.1 [facility] Comment on above: Performed By: #### F ERR, IRON, VITB12 #### [facility] [address] [place] [address] Dr. Enoch Stein Chloride [Moles/Vol] 104 mmol/L Normal 98-107 [facility] Comment on above: Performed By: #### F ERR, IRON, VITB12 #### [facility] [address] [place] [address] Dr. Enoch Stein CO2 [Moles/Vol] 27.1 mmol/L Normal 21.0-32.0 [facility] Comment on above: Performed By: #### F ERR, IRON, VITB12 #### [facility] [address] [place] [address] Dr. Enoch Stein Creatinine [Mass/Vol] 1.23 mg/dL Normal 0.70-1.30 [facility] Comment on above: Performed By: #### F ERR, IRON, VITB12 #### [facility] [address] [place] [address] Dr. Enoch Stein EGFR-AF MEXICAN >60 Normal >=60 [facility] Comment on above: Performed By: #### F ERR, IRON, VITB12 #### [facility] [address] [place] [address] Dr. Enoch Stein EGFR-NON AF MEXICAN 57 mL/min/1.73m2 Critically low >=60 [facility] Comment on above: Performed By: #### F ERR, IRON, VITB12 #### [facility] [address] [place] [address] Dr. Enoch Stein Globulin (S) [Mass/Vol] 3.4 g/dL Normal [facility] Comment on above: Performed By: #### F ERR, IRON, VITB12 #### [facility] [address] [address] [address] Enoch Stein Glucose [Mass/Vol] 165 mg/dL Critically high 74-106 [facility] Comment on above: Performed By: #### F ERR, IRON, VITB12 #### [facility] [facility] [address] [place] [address] Dr. Enoch Stein Potassium [Moles/Vol] 5.3 mmol/L Critically high 3.5-5.1 [facility] Comment on above: Performed By: #### F ERR, IRON, VITB12 #### [facility] [address] [address] [address] Enoch Stein Protein [Mass/Vol] 7.2 g/dL Normal 6.4-8.2 [facility] Comment on above: Performed By: #### F ERR, IRON, VITB12 #### [facility] [address] [place] [address] Dr. Enoch Stein Sodium [Moles/Vol] 141 mmol/L Normal 136-145 [facility] Comment on above: Performed By: #### F ERR, IRON, VITB12 #### [facility] [address] [address] [address] Enoch Stein Urea nitrogen [Mass/Vol] 26.0 mg/dL Critically high 7.0-18.0 [facility] Comment on above: Performed By: #### F ERR, IRON, VITB12 #### [facility] [address] [place] [address] Dr. Enoch Stein Urea nitrogen/Creatinine [Mass ratio] 21.1 mg/mg Normal [facility] Comment on above: Performed By: #### F ERR, IRON, VITB12 #### [facility] [address] [address] [address] Enoch Stein SED RATE WESTERGRENon 2021 SED RATE 4 mm/hr Normal <=20 [facility] Comment on above: Performed By: #### S EDR #### [facility] [address] [place] [address] Dr. Enoch Stein UA RANDOM W/MICROSCOPICon BACTERIA TRACE Abnormal NONE SEEN The [facility] Comment on above: Performed By: #### U AMIC #### [facility] [address] [address] [address] Enoch Stein Bilirubin Ql (U) SMALL Abnormal NEGATIVE The [facility] Comment on above: Performed By: #### U AMIC #### [facility] [address] [address] [address] Enoch Stein CA OX CRYSTALS FEW Normal The [facility] Comment on above: Performed By: #### U AMIC #### [facility] [address] [address] [address] Enoch Stein CAST SEEN Abnormal NONE SEEN The [facility] Comment on above: Performed By: #### U AMIC #### [facility] [address] [address] [address] Enoch Stein Clarity (U) CLEAR Normal CLEAR The [facility] Comment on above: Performed By: #### U AMIC #### [facility] [address] [address] [address] Enoch Stein Color (U) DK. YELLOW Normal YELLOW The [facility] Comment on above: Performed By: #### U AMIC #### [facility] [address] [address] [address] Enoch Stein Crystals LM Nom (Urine sed) SEEN Abnormal NONE SEEN The [facility] Comment on above: Performed By: #### U AMIC #### [facility] [address] [address] [address] Enoch Stein Epithelial cells LM Ql (Urine sed) RARE Normal NONE SEEN /RARE The [facility] Comment on above: Performed By: #### U AMIC #### [facility] [address] [address] [address] Enoch Stein Glucose Ql (U) Negative Normal NEGATIVE The [facility] Comment on above: Performed By: #### U AMIC #### [facility] [address] [address] [address] Enoch Stein Hemoglobin Ql (U) Negative Normal NEGATIVE The [facility] Comment on above: Performed By: #### U AMIC #### [facility] [address] [address] [address] Enoch Stein HYALINE CAST MODERATE Normal [facility] Comment on above: Performed By: #### U AMIC #### [facility] [address] [address] [address] Enoch Stein Ketones Ql (U) 15 mg/dl Abnormal NEGATIVE The [facility] Comment on above: Performed By: #### U AMIC #### [facility] [address] [address] [address] Enoch Stein LEUKOCYTES Negative Normal NEGATIVE [facility] Comment on above: Performed By: #### U AMIC #### [facility] [address] [address] [address] Enoch Stein MUCOUS MODERATE Abnormal NONE SEEN The [facility] Comment on above: Performed By: #### U AMIC #### [facility] [address] [address] [address] Enoch Stein Nitrite Ql (U) Negative Normal NEGATIVE [facility] Comment on above: Performed By: #### U AMIC #### [facility] [address] [place] [address] Dr. Enoch Stein pH (U) 6.0 [pH] Normal 5-9 [facility] Comment on above: Performed By: #### U AMIC #### [facility] [address] [place] [address] Dr. Enoch Stein RBC 0-2 Normal 0-2 The [facility] Comment on above: Performed By: #### U AMIC #### [facility] [address] [place] [address] Dr. Enoch Stein SPEC GRAVITY >=1.030 Abnormal 1.005-<=1.025 The [facility] Comment on above: Performed By: #### U AMIC #### [facility] [address] [place] [address] Dr. Enoch Stein UA PROTEIN 100 mg/dl Abnormal NEGATIVE/ TRACE The [facility] Comment on above: Performed By: #### U AMIC #### [facility] [address] [place] [address] Dr. Enoch Stein Urobilinogen Qn (U) 1.0 {Reilly'U}/dL Normal 0.2 - 1. 0 The [facility] Comment on above: Performed By: #### U AMIC #### [facility] [address] [address] [address] Enoch Stein WBC 0-2 Abnormal NONE SEEN The [facility] Comment on above: Performed By: #### U AMIC #### [facility] [address] [address] [address] Enoch Stein ECHOCARDIO M/2D COMPLETEon 0 10-14-2021 ECHOCARDIO M/2D COMPLETE Patient: KIMMY MCARTHUR Exam Date: 10/14/2021 : 1945 Gender:M Ordering : DWAIN RAY [facility] Admission #: [id number] Family : COPIER TECHNICIAN MARISOL BOYCE COPIER TECHNICIAN Order #: [id number] CLICK HERE TO VIEW EXAM ECHOCARDIOGRAM REPORT [...] Campo M.D. on 10/14/2021 at 16:57 Normal [facility] 03-04-2021 CTA [facility] Department of Radiology [address] [place] [id number] ======== Patient Name: KIMMY MCARTHUR : 1945 Sex: M Age: Race: White Pt. Location: [facility] Patient Status: D Ordered Date: 01/28/2021 4:35:00 PM Completed Date: 03/04/2021 10:46 AM Requesting Provider: ALEX REECE Attending Provider: ALEX REECE Report Copy To: PRABHJOT VILLATORO Signs & Symptoms: I65.29 Occlusion and stenosis of unspecified carotid artery I10 History: [place] patient will need labs Need Wed appt medicare no pc required [address]70 / i65.29 med nec passed *kw 02/04/21 [...] viewed on a separate workstation. The [place] Symptomatic Carotid Endarterectomy Trial (NASCET) method for [...] upper lobes. All CT scans at this [facility] use dose modulation, iterative reconstruction, and/or weight based dosing when appropriate to reduce radiation dose to as low as reasonably achievable Electronically signed: Troy Wadsworth. Transcribed by: [email or web address], User Resident: TROY WADSWORTH Electronically Signed by: TROY WADSWORTH @ 03/08/2021 08:19 AM I personally read this/these film(s) with this resident Normal The [facility] Vital Signs Date Time Vital Sign Value Performing Clinician Facility 07-11-2023 13:56-0400 Body temperature 98.06 [degF] ELLA EUGENIO [facility] 07-11-2023 13:56-0400 Diastolic blood pressure 71 mm[Hg] ELLA EUGENIO [facility] 07-11-2023 13:56-0400 Heart rate 67 /min ELLA EUGENIO [facility] 07-11-2023 13:56-0400 Respiratory rate 16 /min ELLA EUGENIO [facility] 07-11-2023 13:56-0400 Systolic blood pressure 135 mm[Hg] ELLA EUGENIO [facility] 06-18-2022 09:44-0400 Blood Pressure Location Deja Lue [facility] 06-18-2022 09:44-0400 Diastolic blood pressure 67 mm[Hg] Deja Lue [facility] 06-18-2022 09:44-0400 Heart rate 87 /min Deja Perez [facility] 06-18-2022 09:44-0400 Systolic blood pressure 137 mm[Hg] Deja Perez [facility] Encounters Encounter Date Encounter Type Care Provider Facility Start: 07-04-2024 ambulatory Deja BrionnaJose Juan Jaegeremmanuel Facility:[facility] Start: 12-07-2023 End: 12-07-2023 ambulatory [facility] Start: 11-29-2023 End: 11-29-20[facility] Start: 11-29-2023 End: 11-29-2023 ambulatory [facility] Start: 11-22-2023 End: 11-22-2023 ambulatory MARISOL BOYCE Not Available Start: 11-10-2023 ambulatory [facility] Start: 11-07-2023 End: 11-07-2023 ambulatory [facility] Start: 10-13-2023 End: 10-13-2023 ambulatory [facility] Start: 10-11-2023 End: 10-11-2023 ambulatory MARISOL Tolbert [facility] Start: 10-11-2023 End: 10-11-2023 ambulatory MARISOL BOYCE Not Available Start: 10-06-2023 [facility]: 10-05-2023 Evaluation and management of inpatient [facility] Start: 10-05-2023 Evaluation and management of inpatient AILEEN Tolbert [facility] Start: 10-04-2023 [facility] Start: 10-03-2023 [facility] Start: 09-30-2023 Evaluation and management of inpatient DOTTIE MAX [facility] Start: 09-30-2023 Evaluation and management of inpatient GUTIERREZ BRANDT [facility] Start: 09-30-2023 End: 10-07-2023 Evaluation and management of inpatient GEO MORALES [facility] Start: 08-09-2023 End: 08-09-2023 ambulatory MARISOL CARLI Not Available Start: 07-11-2023 End: 07-12-2023 ambulatory ELLA BECKER Facility:[facility] Start: 07-11-2023 End: 07-11-2023 Patient encounter procedure ELLA BECKER [facility] Start: 07-06-2023 End: 07-06-2023 ambulatory ELLA BECKER [facility] Start: 06-07-2023 End: 06-07-2023 ambulatory MARISOL JACKLYNHOLZ Not Available Start: 05-05-2023 Refill Marisol Carli WASHER MACHINE Work Phone: [facility] Start: 05-04-2023 External Result Encounter Marisol Candelarioz WASHER MACHINE Work Phone: [facility] Unsolicited Start: 05-04-2023 External Result Encounter Marisol Candelarioz WASHER MACHINE Work Phone: [facility] Unsolicited Start: 05-04-2023 End: 05-04-2023 ambulatory MARISOL Didi BOYCE [facility] Start: 04-18-2023 End: 04-18-2023 ambulatory [facility] Start: 04-11-2023 End: 04-11-2023 ambulatory MARISOL ROSEANNEHHOLZ Not Available Start: 02-28-2023 ambulatory [facility] Start: 02-28-2023 End: 02-28-2023 ambulatory [facility] Start: 12-29-2022 End: 12-29-2022 ambulatory EHAB [facility] Start: 06-18-2022 End: 06-18-2022 Patient encounter procedure Deja StatonJose Juan Jeageremmanuel [facility] Start: 06-11-2022 End: 06-12-2022 ambulatory ELO MAHMOOD ROSEANNESanchezSINCERE Facility:[facility] Start: 01-06-2022 End: 01-07-2022 ambulatory COPIER TECHNICIAN MARISOL ROSEANNESanchezBROWNTu Facility:[facility] Start: 01-05-2022 End: 01-06-2022 ambulatory ELO MAHMOOD ROSEANNESanchezBROWNTu Facility:[facility] Start: 10-14-2021 End: 10-15-2021 ambulatory DWAIN RAY Facility:[facility] Start: 06-18-2021 End: 06-18-2021 Patient encounter procedure Carlitos MAYA [facility] Procedures Date Procedure Procedure Detail Performing Clinician Start: 05-04-2023 Comprehensive metabo lic panel Marisol Boyce WASHER MACHINE Work Phone: Start: 05-04-2023 Urnls dip stick/tabl et rgnt non-auto w/o micrscp Marisol Boyce WASHER MACHINE Work Phone: Start: 02-26-2020 Iliofemoral vein anita nt (physical object) Carlitos MAYA Start: 08-03-2019 Injection of sacroil iac joint Carlitos RICE Cataract (disorder) Carlitos R HANSEL Cholecystectomy Carlitos RICE Placement of stent i n cardiac conduit Carlitos MAYA Prosthetic arthropla sty of shoulder Carlitos MAYA Plan of Treatment Date Care Activity Detail Author Start: 05-04-2024 Urine screening for protein Diabetes: Urine Protein Screening [facility] Start: 10-27-2023 Screening for malign ant neoplasm of colon [facility] Start: 08-02-2023 Hemoglobin A1c measurement Diabetes: Hemoglobin A1C [facility] Start: 06-12-2023 Urine screening for protein Diabetes: Urine Protein Screening [facility] Start: 06-07-2023 End: 06-07-2023 Patient encounter procedure 06/07/2023 10:30 AM EDT Office Visit [facility] [address] [place] [address] Marisol Boyce, CATALINA [address] [place] [address] [facility] Start: 03-14-2023 Hemoglobin A1c measurement Diabetes: Hemoglobin A1C [facility] Start: 1955 Glaucoma screening Diabetes: R etinopathy Screening [facility] Start: 1945 Medicare Annual Well ness (AWV) Medicare Annual Wellness (AWV) [facility] Start: 1945 Screening for malign ant neoplasm of colon [facility] Immunizations Immunization Date Immunization Notes Care Provider Fa [facility] 01-31-2023 influenza virus vacc ine, unspecified formulation ELLA BECKER [facility] 03-11-2022 SARS-CoV-2 (COVID-19 ) [id number] Deja Perez [facility] 02-12-2022 influenza virus vacc ine, unspecified formulation Deja Luemmanuel [facility] 08-06-2021 SARS-CoV-2 mRNA (jsqnuneymur-ergc-qsxkjd e) vaccine Deja Lue [facility] 02-02-2021 influenza virus vacc ine, unspecified formulation Dejairene Perez [facility] 01-05-2021 SARS-CoV-2 (COVID-19 ) mRNA BNT-162b2 vax Deja Lue [facility] 05-29-2020 SARS-CoV-2 (COVID-19 ) mRNA-1273 vaccine Carlitos RICE [facility] 05-21-2020 SARS-CoV-2 (COVID-19 ) mRNA BNT-162b2 vax Deja Lue [facility] Comment on above: Result Comment: 2022: [id number] 05-08-2020 SARS-CoV-2 (COVID-19 ) mRNA-1273 vaccine Carlitos [employer] [facility] 05-01-2020 SARS-CoV-2 (COVID-19 ) mRNA BNT-[id number] vax Deja Lue [facility] Comment on above: Result Comment: 2022: TPV70 11-30-2019 influenza virus vacc ine, unspecified formulation Deja Lue [facility] 11-30-2019 pneumococcal conjuga te vaccine, 13 valent Deja Lue [facility] 11-27-2019 influenza virus vacc ine, unspecified formulation Carlitos [employer] [facility] 12-29-2018 influenza virus vacc ine, unspecified formulation Deja Lue [facility] 01-28-2018 influenza virus vacc ine, unspecified formulation Deja Lue [facility] 02-11-2017 influenza virus vacc ine, unspecified formulation Deja Lue [facility] 01-17-2015 influenza virus vacc ine, unspecified formulation Deja Lue [facility] 12-10-2014 pneumococcal polysaccharide vaccine, 23 valent Deja Lue [facility] 03-12-2014 influenza virus vacc ine, unspecified formulation Deja Lue [facility] 03-12-2014 zoster vaccine, live Deja L ue [facility] 01-10-2013 influenza virus vacc ine, unspecified formulation Deja Lue [facility] Payers Date Payer Category Payer Medicare [id number] 1958 Medicare [id number] 1958 Unknown [id number] 1945 Unknown [id number] 2.16.84 0.1.968371.3.579.2.593 1945 Unknown [id number] 2.16.84 0.1.248908.3.579.2.593 1945 Unknown [id number] 2.16.84 0.1.765233.3.579.2.593 1945 Unknown [id number] 2.16.84 0.1.697705.3.579.2.593 1945 Unknown [id number] 2.16.84 0.1.927952.3.579.2.593 1945 Unknown [id number] 2.16.8 40.1.830163.3.579.2.727 1945 Unknown [id number] 2.16.8 40.1.532514.3.579.2.727 1945 Unknown [id number] 2.16.84 0.1.031545.3.579.2.1259 1945 Unknown [id number] 2.16.84 0.1.063895.3.579.2.1259 1945 Unknown [id number] 2.16.84 0.1.703906.3.579.2.1259 1945 Unknown [id number] 2.16.84 0.1.187667.3.579.2.1259 1945 Unknown [id number] 2.16.84 0.1.855170.3.579.2.1259 1945 Unknown [id number] 2.16.8 40.1.092410.3.579.2.1286 1945 Unknown [id number] 2.16.8 40.1.088541.3.579.2.1286 1945 Unknown [id number] 2.16.8 40.1.510917.3.579.2.1286 7 Unknown [id number] 2.16.8 40.1.973884.3.579.2.1286 1945 Unknown [id number] 2.16.8 40.1.657989.3.579.2.1286 Social History Date Type Detail Facility Start: 06-18-2021 End: 07-11-2023 Tobacco smoking status Ex-smoker (finding) [facility] Start: 04-11-2023 Sex Assigned At Male [facility] Tobacco smoking status Never [facility] History of tobacco use Current smoker [...] Facility 07-11-2023 Functional Status N/A [facility] 06-18-2022 Functional Status N/A [facility] Clinical Notes 06-18-2021 to 11-29-2023 Note Date & Type Note Facility 11-29-2023 Note lis [facility] 11-29-2023 Note ho [facility] 11-29-2023 Note [facility] Cardiology Clinic Note Chief Complaint: Pt is here due to having a heart cath in September. HPI: Kimmy Mcarthur is a 78 y.o. male With a history of coronary artery disease He is doing well; he is asymptomatic He states that he is somewhat fatigued and his is concerned that he sleeps a lot Pertinently, he denies exertional chest pain, shortness of breath, palpitations, lightheadedness or dizziness Cardiology ROS:Review of Systems Hematologic/Lymphatic: Bruises/bleeds easily. Neurological: Positive for dizziness and light-headedness. All other systems reviewed and are negative. 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 Troponin was elevated at 100. He was given Cardizem, which converted him to sinus, and he was transferred to [facility]. He was placed on ASA/Plavix as [...] Center 10/13/2023 11:00 AM Natasha Campo MD [facility] 11/07/2023 7:30 AM [facility] MR 2 [facility] MR MPORTHO 11/08/2023 2:00 PM Peter Polanco MD [facility] Your medication list START taking these medications [...] Your Medications These medications were sent to [facility] - [address] [address] ??? amiodarone 200 mg tablet ??? carvedilol 3.125 mg tablet ??? lisinopril 20 mg tablet These medications were sent to [facility] - [address] [place] [address] [address] [facility] [place] [address] [address] (more content not included)... [facility] 10-13-2023 Note [facility] Cardiology Clinic Note Chief Complaint: Patient here for follow up heart cath HPI: Kimmy Mcarthru is a 78 y.o. 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 Troponin was elevated at 100. He was given Cardizem, which converted him to sinus, and he was transferred to [facility]. He was placed on ASA/Plavix as [...] Center 10/13/2023 11:00 AM Natasha Campo MD [facility] 11/07/2023 7:30 AM [facility] MR 2 [facility] MR MPORTHO 11/08/2023 2:00 PM Peter Polanco MD [facility] Your medication list START taking these medications [...] Your Medications These medications were sent to [facility] - [address] [address] ??? amiodarone 200 mg tablet ??? carvedilol 3.125 mg tablet ??? lisinopril 20 mg tablet These medications were sent to [facility] - [place] [address] [place] [address] [place] [address], [facility] [address] ??? amLODIPine 5 mg tablet ??? apixaban 5 mg tablet ??? aspirin 81 mg chewable tablet ??? ezetimibe 10 mg tablet ??? Levemir FlexPen (more content not included)... [facility] 10-07-2023 Note [facility] C[facility]IOLOGY INPAT IENT [...] PLT 137 (L) (more content not included)... 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 Troponin was elevated at 100. He was given Cardizem, which converted him to sinus, and he was transferred to [facility]. He was placed on ASA/Plavix as [...] Center 10/13/2023 11:00 AM Natasha Campo MD [facility] 11/07/2023 7:30 AM [facility] MR 2 [facility] MR MPORTHO 11/08/2023 2:00 PM Peter Polanco MD [facility] Your medication list START taking these medications [...] Your Medications These medications were sent to [facility] - [place], [place] - [address] [facility] [address] [facility] [address] amiodarone 200 mg tablet carvedilol 3.125 mg tablet lisinopril 20 mg tablet These medications were sent to [facility] - [place], [place] - [address], [facility] [address] amLODIPine 5 mg tablet apixaban 5 mg tablet aspirin 81 mg chewable tablet ezetimibe 10 mg tablet Levemir FlexPen 100 unit/mL (3 mL) injection pen melatonin 3 mg tablet sennosides 8.6 mg tablet Kimmy has No Known Allergies. Disposition: Home or Self Care () Discharge Condition: Stable Code Status: Full Code Diagnostic Results Hematology: Results from last 7 days Lab Units 10/07/233 10/06/23 0411 WBC AUTO 10*3/uL 6.47 5.18 HEMOGLOBIN g/dL 11.7* 11.5* HEMATOCRIT % 34.8* 34.9* MCV fL 89.5 89.9 PLATELETS AUTO 10*3/uL 137* 128* Chemistry: Results from last 7 days Lab Units 10/07/23 0413 10/06/23 0411 10/05/23 0406 0 (more content not included)... 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 (CMS/HCC) Active Problems: Nonrheumatic mitral valve regurgitation Primary hypertension Peripheral arterial occlusive disease ([facility]) Tobacco dependence syndrome COPD, moderate ([facility]) Type 2 diabetes mellitus without complication, with long-term current use of insulin ([facility]) A-fib ([facility]) Other specified hypothyroidism NSTEMI (non-ST elevated myocardial infarction) ([facility]) Plan: -Cardiac MRI completed. There is a [...] Surgery for 1 (more content not included)... [facility] 10-06-2023 Note [facility] CARDIOLOGY INPAT IENT [...] light headedness. Denies edema or bleeding. Tele: 47-64 ALLERGIES No Known Allergies CURRENT MEDS [...] calcifications and mural (more content not included)... [facility] 10-06-2023 Note Hospital Medicine Daily Progress Note - 10/06/2023 7:16 AM; Room: [address] [place] [address] Admission: 09/30/2023 2:57 PM; Length of stay: 6 days THE HOSPITALIST TEAM PREFERS TO USE Engage CHAT FOR COMMUNICATION 7AM-7PM. IF I DO NOT RESPOND WITHIN 15 MINUTES, PLEASE PAGE ME/CALL THROUGH THE COUNSELOR AID. 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 ([facility]) Active Problems: Nonrheumatic mitral valve regurgitation Primary hypertension Peripheral arterial occlusive disease ([facility]) Tobacco dependence syndrome COPD, moderate ([facility]) Type 2 diabetes mellitus without complication, with long-term current use of insulin ([facility]) A-fib ([facility]) Other specified hypothyroidism NSTEMI (non-ST elevated myocardial infarction) ([facility]) history of coronary artery disease Assessment and [...] 104 104 104 (more content not included)... [facility] 10-05-2023 Note [facility] CARDIOLOGY INPAT IENT [...] artery. No t (more content not included)... 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 (CMS/HCC) Active Problems: Nonrheumatic mitral valve regurgitation Primary hypertension Peripheral arterial occlusive disease ([facility]/HCC) Tobacco dependence syndrome COPD, moderate ([facility]) Type 2 diabetes mellitus without complication, with long-term current use of insulin ([facility] A-fib ([facility]) Other specified hypothyroidism NSTEMI (non-ST elevated myocardial infarction) ([facility]) Plan: - Cardiac MRI pending. This will likely be done in the morning, as the MRI department cannot accommodate this patient on the schedule today - Continue current medications. Medical management per primary and cardiology teams - Surgical plans will be based on findings on cardiac MRI. Patient to remain off Plavix. [facility] 10-05-2023 Note Hospital Medicine Daily Progress Note - 10/05/2023 9:23 AM; Room: [address] [place] [address] Admission: 09/30/2023 2:57 PM; Length of stay: 5 days THE HOSPITALIST TEAM PREFERS TO USE Engage CHAT FOR COMMUNICATION 7AM-7PM. IF I DO NOT RESPOND WITHIN 15 MINUTES, PLEASE PAGE ME/CALL THROUGH THE COUNSELOR AID. 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 ([facility]) Active Problems: Nonrheumatic mitral valve regurgitation Primary hypertension Peripheral arterial occlusive disease ([facility]) Tobacco dependence syndrome COPD, moderate ([facility]) Type 2 diabetes mellitus without complication, with long-term current use of insulin ([facility]) A-fib ([facility]) Other specified hypothyroidism NSTEMI (non-ST elevated myocardial infarction) ([facility]) history of coronary artery disease Assessment and [...] U/L 11 ALK (more content not included)... [facility] 10-04-2023 Note CTA CHEST HISTORY: Preop [...] *Emphysema. Electronically signed: Shahbaz Ramos MD. 3 [facility] 10-04-2023 Note CTA ABDOMEN/PELVIS W ITH [...] achievable. Electronically signed: Shahbaz Ramos MD. 8 [facility] 10-04-2023 Note 10/04/23 0953 Admission Assessment [...] Not Interested Does the patient have a binder caser assigned to them through their insurance? No [...] to send link and activate MyChart? Yes [facility] 10-04-2023 Note Cardiothoracic Surge ry Progress Note 10/04/2023 Room: [address] [place] [address] Subjective Kimmy Mcarthur is a 78 y.o. male with PMH of multivessel coronary artery disease s/p RCA balloon angioplasty 2022 with stent, HFpEF, moderate MR, HTN, PAD, DM who presented for Afib with RVR and NSTEMI on 09/30/2023 to [facility]. He was experiencing chest pain and increased fatigue over the past week. When evaluated in [facility] ED he was in AFIB RVR- HR 150s and troponin was elevated at 100. He received Cardizem and converted to NSR then sent to [facility] for further evaluation. Underwent cardiac catherization [...] the right side by Dr. Cantu at [facility]- he was told his has a [...] 10 to 2 (more content not included)... [facility] 10-04-2023 Note [facility] CARDIOLOGY INPAT IENT [...] 10/04/2023 LYMPHSABS 1.22 (more content not included)... [facility] 10-04-2023 Note Hospital Medicine Daily Progress Note - 10/04/2023 7:48 AM; Room: [address] [place] [address] Admission: 09/30/2023 2:57 PM; Length of stay: 4 days THE HOSPITALIST TEAM PREFERS TO USE Engage CHAT FOR COMMUNICATION 7AM-7PM. IF I DO NOT RESPOND WITHIN 15 MINUTES, PLEASE PAGE ME/CALL THROUGH THE COUNSELOR AID. 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 ([facility]) Active Problems: Nonrheumatic mitral valve regurgitation Primary hypertension Peripheral arterial occlusive disease ([facility]) Tobacco dependence syndrome COPD, moderate ([facility]) Type 2 diabetes mellitus without complication, with long-term current use of insulin ([facility]) A-fib ([facility]) NSTEMI (non-ST elevated myocardial infarction) ([facility]) history of coronary artery disease Assessment and [...] last 7 days Lab Units 10/04/23 0710 10/03/23201610/03/23 1735 10/03/23 1121 10/03/23 0731 10/02/23 2109 POCT GLUCOSE mg/dL 203* 173* 223* 173* 163* 241* Historical Values: (Includes values prior to this admission) Lab Results Component Value Date TSH 6.07 (H) 10/03/2023 HDL 50 10/03/2023 LDL 107 10/03/2023 No results found (more content not included)... [facility] 10-03-2023 Note Hospital Medicine Daily Progress Note - 10/03/2023 1:40 PM; Room: [facility]- Admission: 09/30/2023 2:57 PM; Length of stay: 3 days THE HOSPITALIST TEAM PREFERS TO USE Eng[employer] CHAT FOR COMMUNICATION 7AM-7PM. IF I DO NOT RESPOND WITHIN 15 MINUTES, PLEASE PAGE ME/CALL THROUGH THE COUNSELOR AID. 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 ([facility]) Active Problems: Nonrheumatic mitral valve regurgitation Primary hypertension Peripheral arterial occlusive disease ([facility]) Tobacco dependence syndrome COPD, moderate ([facility]) Type 2 diabetes mellitus without complication, with long-term current use of insulin ([facility]) A-fib ([facility]) NSTEMI (non-ST elevated myocardial infarction) ([facility]) history of coronary artery disease Assessment and Plan - continue amiodarone and heparin drips - CT surgery consulted due to triple-vessel disease found on coronary angiogram - Telemetry, vitals per unit protocol, continuous pulse ox, Q4 I&O's - continue heparin drip for A-fib with RVR [id number] score at least 4 IV heparin Scheduled [...] LDL 107 10/03/2023 No results found for: [id number] , IRON , TIBC , C3 , [...] coronary angiogram, conscious (more content not included)... [facility] 10-03-2023 Note Cardiothoracic Surge ry Consultation Note 10/03/2023 Room: 3111/3111-01 Reason For Consult CABG Referring Provider: Dr. Twyla Polanco History Of Present Illness Kimmy Mcarthur is a 78 y.o. male with PMH of multivessel coronary artery disease s/p RCA balloon angioplasty 2022 with stent, HFpEF, moderate MR, HTN, PAD, DM who presented for Afib with RVR and NSTEMI on 09/30/2023 to [facility]. He was experiencing chest pain and increased fatigue over the past week. When evaluated in [facility] ED he was in AFIB RVR- HR 150s and troponin was elevated at 100. He received Cardizem and converted to NSR then sent to [facility] for further evaluation. Underwent cardiac catherization [...] the right side by Dr. Cantu at [facility]- he was told his has a [...] past medical history of Carotid artery disorder ([facility]), Coronary artery disease, Diabetes mellitus ([facility]), Heart valve disease, Hypertension, and PAD (peripheral artery disease) ([facility]). Surgical History He has a past surgical [...] 80 mg oral Nightly 80 mg at 10/02/232143 carvedilol 3.125 mg oral BID with meals glucose 24 g oral q15 min PRN Or dextrose 50 % in water (D50W) 25 g intravenous q15 min PRN heparin 0-28 Units/kg/hr intravenous Continuous 16 Units/kg/hr at 10/02/23 1149 insulin lispro 0-13 Units subcutaneous With meals & nightly 2 Units at 10/02/232143 lactulose 10 g oral Daily PRN lisinopril [...] 14 94 % (more content not included)... [facility] 10-03-2023 Note Patient: Kimmy singh Procedure Information Date/Time: 10/03/23 0930 Procedure: Coronary angiography Location: [facility] 3 / [facility] (Cath) Providers: Twyla Polanco MD [...] Plan discussed with attending. Additional Equipment Requests [facility] 10-03-2023 Note Attestation signed by Cecilia [...] 25 g, intravenous, q15 min PRN, Nixon Kent MD heparin infusion 100 units/mL in D5W, [...] Value Ventricular Rate 60 Atrial Rate 59 TX Interval 138 QRS DURATION 116 QT Interval 452 QTC CALCULATION(BAZETT) 452 P [place] 72 R-[place] 62 T Wave [place] -14 Impression Sinus bradycardia with Premature atrial complexes Possible Inferior infarct (cited on or before 07-JAN-2005) Abnormal ECG When compared with ECG of 30-SEP-2023 18:16, (unconfirmed) Premature atrial complexes are now Present Confirmed by Wan MATHIS, CECILIA Garcia (58) on 10/01/2023 12:21:12 PM Lab Results Component Value Date TROPONINI 0.55 (HH) 10/01/2023 Transesophageal echo (HARMONY) Result Date: 02/28/2023 [facility] [address] [place] [address] [phone] (fax) Transesophageal Echocardiogram-[facility] Name: KIMMY MCARTHUR Study Date: 02/28/2023 09:41 AM B/P: 149 mmHg/58 mmHg HR: Date of : 1945 Location: [facility] Height: 72 in. Age: 77 year(s) Patient Room: Weight: 156 lb. Gender: Male Patient Status: OutPt BSA: 1.92 m2 Indication: Aortic Valve Stenosis Examination: HARMONY/Limited Doppler/CFI, 3D images Image Quality: Good Patient Consent: Informed, written consent was obtained for the procedure Exam Location: A HARMONY was performed in the [facility] without complications Anesthesia Pharyngeal anesthesia with viscous Lidocaine Conclusions Left Ventricle: The left ventric (more content not included)... [facility] 10-02-2023 Note Hospital Medicine Daily Progress Note - 10/02/2023 1:23 PM; Room: 3111/3111-01 Admission: 09/30/2023 2:57 PM; Length of stay: 2 days THE HOSPITALIST TEAM PREFERS TO USE Engage CHAT FOR COMMUNICATION 7AM-7PM. IF I DO NOT RESPOND WITHIN 15 MINUTES, PLEASE PAGE ME/CALL THROUGH THE COUNSELOR AID. FROM 7PM-7AM, PLEASE PAGE [phone](COVR) Code Status: Full Code Barriers to Discharge: [...] edema Active Inpatient Problems Principal Problem: A-fib ([facility]) Active Problems: NSTEMI (non-ST elevated myocardial infarction) ([facility]) history of coronary artery disease Assessment and Plan - continue amiodarone and heparin drips - cardiology planning echo and coronary angiography on Tuesday - patient has some PVCs otherwise is in normal sinus rhythm - Telemetry, vitals per unit protocol, continuous pulse ox, Q4 I&O's - continue heparin drip for A-fib with RVR [id number] score at least 4 IV heparin Scheduled [...] LDL 80 02/27/2020 No results found for: [id number] , IRON , TIBC , C3 , [...] in Lateral Confirmed by Wan MATHIS, CECILIA Garcia ([id number]) on 10/01/2023 12:17:40 PM Discharge Planning Signed Nixon Kent MD [facility] 10/02/2023 1:23 PM [facility] 10-02-2023 Note Attestation signed by Cecilia [...] Value Ventricular Rate 60 Atrial Rate 59 TX Interval 138 QRS DURATION 116 QT Interval 452 QTC CALCULATION(BAZETT) 452 P [place] 72 R-[place] 62 T Wave [place] -14 Impression Sinus bradycardia with Premature atrial complexes Possible Inferior infarct (cited on or before 07-JAN-2005) Abnormal ECG When compared with ECG of 30-SEP-2023 18:16, (unconfirmed) Premature atrial complexes are now Present Confirmed by Wan MATHIS, CECILIA Garcia ([id number]) on 10/01/2023 12:21:12 PM Lab Results Component Value Date TROPONINI 0.55 (HH) 10/01/2023 Transesophageal echo (HARMONY) Result Date: 02/28/2023 [facility] [address] [place] [address] [phone] (fax) Transesophageal Echocardiogram-[facility] Name: KIMMY MCARTHUR Study Date: 02/28/2023 09:41 AM B/P: 149 mmHg/58 mmHg HR: Date of : 1945 Location: [facility] Height: 72 in. Age: 77 year(s) Patient Room: Weight: 156 lb. Gender: Male Patient Status: OutPt BSA: 1.92 m2 Indication: Aortic Valve Stenosis Examination: HARMONY/Limited Doppler/CFI, 3D images Image Quality: Good Patient Consent: Informed, written consent was obtained for the procedure Exam Location: A HARMONY was performed in the [facility] without complications Anesthesia Pharyngeal anesthesia with viscous [...] injections. Right Atri (more content not included)... [facility] 10-01-2023 Note [facility] Medicine Daily Progress Note - 10/01/2023 10:36 AM; Room: [address] [place] [address] Admission: 09/30/2023 2:57 PM; Length of stay: 1 days THE HOSPITALIST TEAM PREFERS TO USE Engage CHAT FOR COMMUNICATION 7AM-7PM. IF I DO NOT RESPOND WITHIN 15 MINUTES, PLEASE PAGE ME/CALL THROUGH THE COUNSELOR AID. FROM 7PM-7AM, PLEASE PAGE [phone](COVR) Code Status: Full Code Barriers to Discharge: [...] continue heparin drip for A-fib with RVR [id number] score at least 4 - resume home medications once med rec is complete IV heparin Scheduled Meds aspirin, 81 mg, oral, Daily atorvastatin, 80 mg, oral, Nightly clopidogrel, 75 mg, oral, Daily insulin lispro, 0-13 Units, subcutaneous, With meals & nightly metoprolol tartrate, 25 mg, oral, BID tamsulosin, 0.4 mg, oral, Daily amiodarone, 1 mg/min, Last Rate: 1 mg/min (10/01/23 09) heparin, 0-28 Units/kg/hr, Last Rate: 16 Units/kg/hr (10/01/23729) Pertinent Investigations Hematology: Results from last 7 [...] from last 7 days Lab Units 10/01/23 0709/30/23201609/30/23 1855 POCT GLUCOSE mg/dL 162* 214* 192* Historical Values: (Includes values prior to this admission) Lab Results Component Value Date HDL 37 02/27/2020 LDL 52 02/27/2020 LDL 80 02/27/2020 No results found for: [id number] , IRON , TIBC , C3 , [...] Present Discharge Planning Signed Nixon Kent MD [facility] 10/01/2023 10:36 AM [facility] 10-01-2023 Note Attestation signed by Cecilia Mathis MD at 10/01/2023 1:01 PM GC: I saw this patient. I personally performed the critical/menjivar portions that determines the level of service. I was directly involved in the management and treatment plan of the patient. I reviewed fellow Dr. Rainey 's note and agree with the documentation Cardiology Progress Note Subjective Subjective: Kimmy Mcarthru is a 78 y.o. male with history [...] Value Ventricular Rate 60 Atrial Rate 59 TX Interval 138 QRS DURATION 116 QT Interval 452 QTC CALCULATION(BAZETT) 452 P [place] 72 R-[place] 62 T Wave [place] -14 Impression Sinus bradycardia with Premature atrial complexes Possible Inferior infarct (cited on or before 07-JAN-2005) Abnormal ECG When compared with ECG of 30-SEP-2023 18:16, (unconfirmed) Premature atrial complexes are now Present Lab Results Component Value Date TROPONINI 0.55 (HH) 10/01/2023 Transesophageal echo (HARMONY) Result Date: 02/28/2023 1 [facility] [address] [place] [address] [phone] (fax) Transesophageal Echocardiogram-[facility] Name: KIMMY MCARTHUR Study Date: 02/28/2023 09:41 AM B/P: 149 mmHg/58 mmHg HR: Date of : 1945 Location: [facility] Height: 72 in. Age: 77 year(s) Patient Room: Weight: 156 lb. Gender: Male Patient Status: OutPt BSA: 1.92 m2 Indication: Aortic Valve Stenosis Examination: HARMONY/Limited Doppler/CFI, 3D images Image Quality: Good Patient Consent: Informed, written consent was obtained for the procedure Exam Location: A HARMONY was performed in the [facility] without complications Anesthesia Pharyngeal anesthesia with viscous [...] IAS: No in (more content not included)... [facility] 09-30-2023 Note Hospital Medicine History and Physical 09/30/2023 6:16 PM THE HOSPITALIST TEAM PREFERS TO USE [employer] FOR COMMUNICATION 7AM-7PM. IF I DO NOT RESPOND WITHIN 15 MINUTES, PLEASE PAGE ME/CALL THROUGH THE COUNSELOR AID. FROM 7PM-7AM, PLEASE PAGE [phone](COVR). SUBJECTIVE: Chief Complaint atrial fibrillation with rapid [...] cardiology who wanted the patient transferred to [facility] for further cardiac workup. Chest pain [...] for the pe (more content not included)... [facility] 07-11-2023 Hospital Discharge instructions Patient Education [...] Follow these instructions at home: Medicines Take gtbo-[id number] and prescription medicines only as told by [...] provider. Document Revised: 06/10/2021 Document Reviewed: 06/10/2021 [facility] Patient Education 2022 Xyo[employer] Follow Up Care 06/18/2022 10:46:56 With:Chris QUINTANA, GEORGE Mitchell, [facility] Address: When:Within 1 Year(s) [facility] 04-18-2023 Note [facility] Cardiology Clinic Note Chief Complaint: Patient here [...] past medical history of Carotid artery disorder ([facility]), Coronary artery disease, Diabetes mellitus (CMS/HCC), Heart valve disease, Hypertension, and PAD (peripheral artery disease) (CMS/[facility]). Surgical History He has a past surgical [...] ischemia EF of 52% Normal exercise Transesophageal Echocardiogram-[facility] Name: KIMMY MCARTHUR Study Date: 02/28/2023 09:41 AM B/P: 149 mmHg/58 mmHg HR: Date of : 1945 Location: [facility] Height: 72 in. Age: 77 year(s) Patient Room : Weight: 156 lb. Gender: Male Patient Status: OutPt BSA: 1.92 m2 Indication: Aortic Valve Stenosis Examination: HARMONY/Limited Doppler/CFI, 3D images Image Quality: Good Patient Consent: Informed, written consent was obtained for the procedure s p @ c 3 Exam Location: A HARMONY was performed in the [facility] without complications s p @ c 3 [...] Aorta: Moderate atherosc (more content not included)... [facility] 02-28-2023 Note Cardiovascular Labor atory Report [...] echocardiography Follow-up with Dr. Campo in the [place] office in the next 1 to 2 [...] left radial artery was obtained. A 6 Guyanese glide sheath was inserted without difficulty. Bilateral selective coronary angiography was performed using JR 4.0 and JL 4.0 catheters. After reviewing the images, it was elected to proceed with an interventional procedure. A 6 Guyanese JR4 guide catheter with sideholes was advanced [...] a prior pseudoaneurys (more content not included)... [facility] 12-29-2022 Note [facility] Cardiology Clinic Note Chief Complaint: Patient here [...] disease, Hypertension, and PAD (peripheral artery disease) (CMS/[facility]). Surgical History He has a past surgical [...] If abnormal, we (more content not included)... [facility] 06-16-2022 Hospital Discharge instructions Patient Education [...] urethra. Follow these instructions at home: Take vltu-vov-gvbiqhp and prescription medicines only as told by [...] 03/14/2006 Document Revised: 02/06/2019 Document Reviewed: 04/18/2017 [facility] Patient Education 2020 [email or web address] Follow Up Care 06/18/2021 11:18:31 With:Chris QUINTANA, GEORGE Mitchell, URO Address: When: Unknown [facility] [place] 06-18-2021 Hospital Discharge instructions Patient Education 06/18/2021 [...] 03/14/2006 Document Revised: 12/01/2018 Document Reviewed: 02/11/2017 [facility] Patient Education 2020 [employer] 06/18/2021 11:19:47 Benign Prostatic Hyperplasia Benign Prostatic [...] urethra. Follow these instructions at home: Take fgxr-woy-pztqulz and prescription medicines only as told by [...] 03/14/2006 Document Revised: 02/06/2019 Document Reviewed: 04/18/2017 [facility] Patient Education 2020 [employer] Follow Up Care 06/12/2020 11:26:53 With:ZULMA QUINTANA, Carlitos Villar, URL Address: [address] [place] [id number] [phone] When:Within 1 Year(s) Comments:w/PSA [facility] Evaluation + Plan note Future Appointments Appointment Date:06/18/2022 10:00:00 AM Scheduled Provider:Deja Perez MD Location:[facility] Appointment Type:URO Office Visit Diagnostic Tests PendingPSA Total 06/18/21 [facility] Evaluation + Plan note Future Appointments Appointment Date:06/23/2023 10:00:00 AM Scheduled Provider:Deja Perez MD Location:[facility] Appointment Type:URO Office Visit Diagnostic Tests PendingPSA Free & Total 06/18/22 [facility] Evaluation + Plan note Future Appointments Appointment Date:07/04/2024 10:45:00 AM Scheduled Provider:Deja Perez MD Location:[facility] Appointment Type:URO Office Visit Diagnostic Tests PendingPSA Screen, Total 07/11/23 [facility] Hospital course Narrative No data available for this section [facility] Progress note No data available for this section [facility] Summary Purpose Family History No Family [...] section and content) DATE CREATED AUTHOR 03/08/2021 [facility] DATE CREATED AUTHOR AUTHOR'S ORGANIZ ATION 06/20/2022 [facility] DATE CREATED AUTHOR AUTHOR'S ORGANIZ ATION 07/15/2023 [facility] DATE CREATED AUTHOR AUTHOR'S ORGANIZ ATION 11/24/2023 [facility] DATE CREATED AUTHOR AUTHOR'S ORGANIZ ATION 11/30/2023 [facility] DATE CREATED AUTHOR AUTHOR'S ORGANIZ ATION 12/09/2023 [facility] Patient Care team informatio n (unrecognized section and content) Outside Medical Sales Representative Relationship Specialty Start Date End Date Prabhjot Villatoro MD [address] [place] [address] PCP - General Family Medicine 04/06/23 Marisol Boyce NP [address] [place] [address] Nurse Practitioner Family Medicine 03/28/22 Outside Medical Sales Representative Relationship Specialty Start Date End Date Prabhjot Villatoro MD [address] [place] [phone] PCP - General Family Medicine 04/06/23 Marisol Boyce NP [address] [place] [phone] Nurse Practitioner Family Medicine 03/28/22 FOR RECORDS [...] BE BASED ON THE PRIMARY CLINICAL RECORDS. [facility] [address] [employer] [facility]. provides no warranty or guarantee of the accuracy or completeness of information in this document.
== END 2023-12-12 14:01 | disposition home or self-care (01) ==
LOC: SLEEP 12-13 10:07
PROVIDERS: PCP Internal Medicine Interventional Cardiology; Visit Provider Internal Medicine Interventional Cardiology
DX: G47.33 Obstructive sleep apnea (adult) (pediatric) (principal)
CPT/HCPCS: 95806

== ENCOUNTER 2024-03-13 09:06 | Outpatient (OUT) | payer MEDICARE, OTHER, SELFPAY ==
[2024-03-13 10:12] LABS: Estimated Average Glucose 180 mg/dL; Glycohemoglobin A1C 7.9 % (4.5-6.2)
== END 2024-03-13 09:07 | disposition home or self-care (01) ==
LOC: LAB 09:07
PROVIDERS: PCP Nurse Practitioner; Visit Provider Nurse Practitioner
DX: Z79.4 Long term (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 of insulin (principal); E11.9 Type 2 diabetes mellitus without complications
CPT/HCPCS: 36415; 83036

== ENCOUNTER 2024-03-19 12:45 | Outpatient (OUT) | payer MEDICARE, OTHER, SELFPAY ==
--- NOTE | 2024-03-19 13:00 | CA_ITS ---
Patient Name: KIMMY MCARTHUR MR#: [id number] : 1945 Exam Date: 03/19/2024 Ordering Doctor: DR JING CARTER M.D. ECHOCARDIOGRAM REPORT 8 PROCEDURE: CA ECHO DOPPLER COMPLETE INDICATIONS: Mitral valve regurgitation COMPARISON: None. DESCRIPTION: COMPLETE ECHOCARDIOGRAM Real-time transthoracic echocardiography with 2D, M-mode, spectral and color flow Doppler performed. QUALITY: Technical quality was good. LEFT VENTRICLE: Mild chamber dilatation. Proximal septal hypertrophy (sigmoid septum). Global left ventricular systolic function is at the lower limits of normal. 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 The remaining segments contract well. LV EF: Visual estimation of left ventricular ejection fraction is 50%. DIASTOLIC: Grade I diastolic dysfunction. ATRIAL SEPTUM: LEFT ATRIUM: Moderate dilatation. RIGHT ATRIUM: Mild dilatation. Normal systolic function. RIGHT VENTRICLE: Normal chamber size. Normal right ventricular systolic function. TRICUSPID VALVE: Normal mobility and thickness. No stenosis with mild to moderate regurgitation. Mild pulmonary hypertension. RVSP 41 mmHg MITRAL VALVE: Normal mobility. No evidence of mitral valve stenosis. There is moderate posterior mitral annular calcification. Moderate mitral regurgitation. AORTIC VALVE: Normal trileaflet appearance. No visible sclerosis. Normal leaflet mobility. No evidence of aortic valve stenosis. No aortic regurgitation. AORTIC ROOT: Normal diameter and appearance. PULMONIC VALVE: Normal thickness and mobility. No stenosis. No regurgitation. PERICARDIUM: No evidence of pericardial effusion. IVC: Collapses with inspirations. Normal size PLEURA: CONCLUSION: 1. The left ventricle is mildly dilated. 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 Global left ventricular systolic function is at the lower limits of normal. Estimated LVEF is 50%. 2. Normal right ventricular size and systolic function. 3. Mild to moderate biatrial dilatation. 4. Grade 1 diastolic dysfunction. 5. Moderate mitral regurgitation. 6. Mild to moderate tricuspid regurgitation. 7. Mildly elevated right-sided pressures. Adult Echocardiography Procedure Report Left Ventricle LVEDD (3.7 - 5.6 cm): 6.23 cm LVESD (2.2 - 4.0 cm): 5.28 cm LVIVS thickness (0.6 - 1.2 cm): 1.31 cm LVPW thickness (0.5 - 1.0 cm): 1.06 cm e': 0.07 m/s E - e': 9.93 LVOT Max Gradient: 2.96 mm[Hg] LVOT Area (cm2): 0.86 m/s Peak Velocity (LVOT): 0.86 m/s Mean Velocity (LVOT): 0.62 m/s LVOT Diameter 2.07 cm Left Ventricular Ejection Fraction: 50 % Left Atrium LA Volume Index (2D A2C): 38.07 ml/m2 Left Atrium Systolic Dimension: 4.70 cm Mitral Valve MV E to A Ratio: 0.84 Mitral Valve A-Wave Peak Velocity: 0.85 m/s Mitral Valve E-Wave Peak Velocity: 0.72 m/s Right Ventricle RV Internal Diastolic Dimension: 3.71 cm Aorta AO Root Diam: 3.55 cm Ascending Ao Diam: 3.01 cm Aortic Valve AoV Area (Peak Jeramy): 2.70 cm2, 2.70 cm2 AoV Area (VTI): 2.57 cm2, 2.57 cm2 Peak Velocity(Antegrade Flow): 1.07 m/s Peak Gradient(Antegrade Flow): 4.60 mm[Hg] Mean Velocity(Antegrade Flow): 0.78 m/s Mean Gradient(Antegrade Flow): 2.75 mm[Hg] Velocity Time Integral: 30.42 cm Tricuspid Valve Peak Velocity (Regurgitant Flow): 3.06 m/s, 3.09 m/s, 3.09 m/s Pulmonic Valve Mean Gradient: 1.58 mm[Hg], 1.34 mm[Hg] Mean Velocity: 0.59 m/s, 0.54 m/s Peak Velocity: 0.81 m/s Peak Gradient: 2.80 mm[Hg], 2.43 mm[Hg] Right Atrium Right Atrium Systolic Pressure: 78.48 ml, 78.48 ml Dictated by: Eliezer Silveira M.D. on 03/19/2024 at 18:45 Approved by: Eliezer Silveira M.D. on 03/19/2024 at 18:57
== END 2024-03-19 12:46 | disposition home or self-care (01) ==
LOC: CARD 12:46
PROVIDERS: PCP Nurse Practitioner; Visit Provider Internal Medicine Interventional Cardiology
DX: I34.0 Nonrheumatic mitral (valve) insufficiency (principal)
CPT/HCPCS: 93306; 93356

== ENCOUNTER 2024-03-29 12:47 | Outpatient (OUT) | payer MEDICARE, OTHER, SELFPAY ==
--- NOTE | 2024-03-29 12:49 | VEIN_ITS ---
The [address] [address] Patient Name: KIMMY MCARTHUR MRN: [id number] date: 1945 Sex: M Assigned Patient Location: Current Patient Location: Accession/Order Number: [id number] Exam Date: 03/29/2024 12:49 Report Date: 03/29/2024 13:54 At the request of: JING CARTER Procedure: VC SEGMENTAL PRESSURES EXAM: VC SEGMENTAL PRESSURES HISTORY: I73.9 COMPARISON: None. FINDINGS: Segmental pressures presented as follows (right, left) in mmHg. Brachial: 151, 152 Upper thigh: 176, 173 Lower thigh: 192, 171 Calf: 168, 199 DPA: 146, 160 BIZTALK CONSULTANT: 161, 157 1st Toe: 155, 127 FADY: 1.06, 1.05 TBI: 1.02, 0.84 The ABIs are Normal The TBI's are Acceptable PVR waveforms: Right leg: Thigh: Normal Above knee: Normal Below knee: Normal Right ankle: Normal Left leg: Thigh: Normal Above knee: Normal Below knee: Normal Right ankle: Normal VEIN/VC SEGMENTAL PRESSURES IMPRESSION: Normal exam Electronically authenticated by: MIGUEL PLASCENCIA Date: 03/29/2024 13:54
== END 2024-03-29 12:48 | disposition home or self-care (01) ==
LOC: VC 12:47
PROVIDERS: PCP Nurse Practitioner; Visit Provider Internal Medicine Interventional Cardiology
DX: I73.9 Peripheral vascular disease, unspecified (principal)
CPT/HCPCS: 93923

== ENCOUNTER 2024-04-05 09:01 | Outpatient (OUT) | payer MEDICARE, OTHER, SELFPAY | END 2024-04-05 09:02 | disposition home or self-care (01) | LOC: PST 09:01 | PROVIDERS: PCP Nurse Practitioner; Visit Provider Surgery | DX: Z12.11 Encounter for screening for malignant neoplasm of colon (principal) ==

== ENCOUNTER 2024-04-11 10:05 | Day surgery (SDC) | payer MEDICARE, OTHER, SELFPAY ==
[2024-04-11 10:28] VITALS: BP 181/77; PULSE 73; TEMP 36.4; O2SAT 96; BMI 22.8
--- NOTE | 2024-04-11 10:35 | PC.NURSE ---
2 previous IV attempts
[2024-04-11] MEDS: 0.9 % SODIUM CHLORIDE 500 ML 50 ML IV (10:40)
--- NOTE | 2024-04-11 11:11 | PM.GSPRC ---
Date of procedure: 04/11/24 Indications for Procedure: History of Palmer's esophagus/history of colon polyps Pre-op diagnosis: History of Palmer's esophagus/history of colon polyps Procedure: EGD with biopsy distal esophagus Colonoscopy with snare polyp rectosigmoid junction less than 1 cm Findings: Hiatal hernia moderate-sized Rectosigmoid polyp Extensive diverticulosis transverse descending and sigmoid colon Anesthesia: MAC Surgeon: Sabino Mauricio Procedure Summary: PROCEDURE: Patient was taken to the endoscopy suite placed in left lateral recumbent position given IV sedation as above. The Olympus video endoscope was advanced under direct visualization into the pharynx esophagus stomach through the pylorus into the first second and third fourth portions of the duodenum. The duodenum was normal. The scope was returned to the stomach retroflexed on itself look at the GE junction. The stomach was completely normal. There were no ulcers polyps or tumors seen. There was a medium sized hiatal hernia noted. The distal esophagus had findings of Palmer's esophagus minimal at 40 cm from the mouth and biopsies were taken and hemostasis maintained. The rest of the esophagus was normal and the scope was removed from the mouth. A rectal digital exam was performed. The sphincter tone was found to be normal. No rectal masses were appreciated. The Olympus video colonoscope was advanced under direct visualization to the rectum, sigmoid colon, descending colon, transverse colon and ascending colon to the ileocecal valve. The underside of the valve was seen. Appendiceal lumen was visualized. The scope was slowly withdrawn with air being desufflated as it was withdrawn. Prep was adequate but not the best and no gross tumors were seen. Extensive diverticulosis throughout the transverse descending and a sigmoid colon were seen. A polyp was encountered at the rectosigmoid junction and was snared and retrieved. The patient tolerated the procedure well and went to the Recovery Area in satisfactory condition. I recommend the patient return in 5 years for surveillance if he was so wishes at age 83 and is healthy. Or he may choose not to have another colonoscopy unless problems. Estimated blood loss (mL): 0 Specimens: Distal esophageal biopsy; rectosigmoid polyp Complications: No Condition: stable Disposition: PACU
[2024-04-11 11:54] VITALS: BP 129/65; PULSE 71; TEMP 36.3; O2SAT 95
[2024-04-11 12:09] VITALS: BP 115/56; PULSE 60; O2SAT 98
[2024-04-11 12:24] VITALS: BP 151/70; PULSE 65; O2SAT 96
== END 2024-04-11 12:30 | disposition home or self-care (01) ==
PROVIDERS: PCP Nurse Practitioner; Visit Provider Surgery
PROC: (CPT 43239; principal; 2024-04-11 11:15)
DX: K57.30 Diverticulosis of large intestine without perforation or abscess without bleeding (principal); D12.7 Benign neoplasm of rectosigmoid junction; K44.9 Diaphragmatic hernia without obstruction or gangrene; K22.70 Barrett's esophagus without dysplasia; K21.00 Gastro-esophageal reflux disease with esophagitis, without bleeding; Z95.5 Presence of coronary angioplasty implant and graft; I25.2 Old myocardial infarction; I48.91 Unspecified atrial fibrillation; Z79.82 Long term (current) use of aspirin; Z79.01 Long term (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 of anticoagulants; Z90.49 Acquired absence of other specified parts of digestive tract; Z87.891 Personal history of nicotine dependence; G47.33 Obstructive sleep apnea (adult) (pediatric); J44.9 Chronic obstructive pulmonary disease, unspecified; I25.10 Atherosclerotic heart disease of native coronary artery without angina pectoris; I50.9 Heart failure, unspecified; I34.0 Nonrheumatic mitral (valve) insufficiency; E11.9 Type 2 diabetes mellitus without complications; Z79.4 Long term (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 of insulin; Z79.84 Long term (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 of oral hypoglycemic drugs; Z86.0100 Personal history of colon polyps, unspecified
CPT/HCPCS: 43239; 45385; 88305; J2371; J2704

== ENCOUNTER 2024-11-27 11:11 | Inpatient (IN) | payer MEDICARE, OTHER, SELFPAY ==
[2024-11-27] VITALS (28 sets, daily range): BP systolic 88–157; BP diastolic 44–73; PULSE 49–61; TEMP 36.4–36.6; O2SAT 95–98; BMI 22.8; BMI 23.0
--- OUTSIDE RECORDS SUMMARY | 2024-11-27 11:19 | XMS_ITS | Clinical Summary ---
Author Organization [facility] Address [address] [place] [address] Care Team Providers Care Control Panel Operator Name Role Phone Marisol Boyce PACKER FUSER Unavailable [phone] Prabhjot Roman MD Primary Care Provider [phone] Marisol Boyce PACKER FUSER Unavailable [phone] Marisol Boyce NP Unavailable [phone] Allergies No known active allergies Medications atorvastatin (Lipitor) 80 MG tablet Take 80 mg by mouth in the morning. Active dapagliflozin (Farxiga) 5 MG Take by mouth Active Aspirin Low Dose 81 MG chewable tablet Chew 81 mg Daily 4 Active carvedilol (Coreg) 3.125 MG tablet Take 3.125 mg by mouth in the morning and 3.125 mg in the evening. Take with meals. 4 Active OneTouch Verio test strip 1 each by Other route Daily 4 Active amiodarone (Pacerone) 200 MG tablet Take 200 mg by mouth Daily 4 Active insulin glargine (Lantus SoloStar) 100 UNIT/ML penIndications:Type 2 diabetes mellitus without complication, with long-term current use of insulin (HCC) Inject 50 Units under the skin Daily Pt to take up to a total of 50 units daily 45 mL 3 5 Active lisinopril 20 MG tablet 20 mg Daily 5 Active metFORMIN (Glucophage) 500 MG tabletIndications:T ype 2 Diabetes Mellitus Take 1 tablet (500 mg) by mouth in the morning and 1 tablet (500 mg) in the evening. Take with meals. 180 tablet 5 Active omeprazole (PriLOSEC) [address] capsuleIndications: Palmer's esophagus with dysplasia Take 1 capsule (40 mg) by mouth in the morning. Take before meals. 90 capsule 1 5 12/26/19 25 Active apixaban (Eliquis) 5 MG tabletIndications:P AD (peripheral artery disease),Paroxysmal atrial fibrillation (HCC) Take 1 tablet (5 mg) by mouth in the morning and 1 tablet (5 mg) before bedtime. 180 tablet 1 5 01/02/20 25 Active ezetimibe (Zetia) 10 MG tabletIndications:M ixed hyperlipidemia Take 1 tablet (10 mg) by mouth at bedtime 90 tablet 1 5 01/24/20 25 Active Active Problems Problem Noted Date Diagnosed Date Dizziness and giddiness 08/15/2024 Assessment & Plan (09/26/2024 10:14 AM EDT): Last appt had some mild orthostatic changes in BP Cardiology had him stop amlodipine No orthostatics today ?side effect meds, vs cervical pathology, vascular? Send to see neuro Assessment & Plan (08/15/2024 12:52 PM EDT): Only notes when getting up from sitting to standing Orthostatics in office: [id number] Sittin/56 Standin/54 I will reach out to cardiology to see if they feel an adjustment is needed in his blood pressure meds: He is also encouraged to drink more water daily Drinks decaf coffee, as well as 2 diet cokes daily Does not like the taste of water Centrilobular emphysema 05/15/2024 Assessment & Plan (08/15/2024 6:43 AM EDT): Noted on imaging, does not take any medications on a regular basis Assessment & Plan (05/15/2024 6:27 AM EST): Noted on imaging, does not take any medications on a regular basis Type 2 diabetes mellitus with other specified co mplication 05/15/2024 Assessment & Plan (08/15/2024 6:44 AM EDT): PAD, CAD, ED Assessment & Plan (05/15/2024 6:36 AM EST): PAD, CAD, ED Type 2 diabetes mellitus wit h diabetic peripheral angiopathy without gangrene 05/15/2024 Primary insomnia 05/15/2024 Assessment & Plan (05/15/2024 10:27 AM EST): Recommend no napping during the day, can try melatonin up to 10mg at bedtime If not helpful consider trazadone, will call if he needs it Hiatal hernia 04/11/2024 Overview (04/11/2024): Noted on EGD 04/11/24 Colon cancer screening 02/15/2024 Assessment & Plan (02/15/2024 7:38 AM EST): Colon cancer screening options were discussed with patient, as well as why colon cancer screening is indicated. Options are Colonoscopy: direct visualization, every 10 years (unless indicated more frequently), risks and benefits were discussed Cologuard: every 3 years, risks and benefits were discussed , contraindications were discussed (family hx of colon cancer, colon polyps) Patient has elected to: Chronic thoracic back pain 01/04/2024 Other thrombophilia ([facility]) 11/22/2023 Assessment & Plan (11/22/2023 7:27 AM EDT): D/t blood thinners Left ventricular thrombus 11/10/2023 Pseudoaneurysm of left ventricle of heart 2023 Assessment & Plan (11/22/2023 1:00 PM EDT): Per cardiology Acute cough 10/11/2023 Assessment & Plan (10/11/2023 12:48 PM EDT): Will check xray, no s/s heart failure Will order health trax testing, but suspect more related to colleen inhibitor change from ramipril to lisinopril If worsening contact office Other specified hypothyroidism 10/04/2023 A-fib 09/30/2023 Assessment & Plan (08/15/2024 6:43 AM EDT): Is on amiodirone as well as anti coagulation NSR today Cont with cardiology Assessment & Plan (05/15/2024 6:27 AM EST): Is on amiodirone as well as anti coagulation NSR today Cont with cardiology Assessment & Plan (10/11/2023 12:48 PM EDT): Is on amiodirone as well as anti coagulation NSR today Cont with cardiology NSTEMI (non-ST elevated myocardial infarction) 0 09/30/2023 CORNELIA (obstructive sleep apnea) 06/07/2023 Assessment & Plan (08/15/2024 6:43 AM EDT): You have a diagnosis of obstructive sleep apnea. It is recommended that you wear your PAP device any time while in bed sleeping. Not using the PAP device can increase your risk of elevated/uncontrolled high blood pressure, atrial fibrillation, heart attack, stroke, or sudden . Compliance with PAP: How many hours of use per night: Do you feel more refreshed in the morning: Company that supplies your machine and tubing/filters etc: Doctor that manages your CORNELIA: Encounter for subsequent [facility] wellness visit (AWV) in Medicare patient 06/07/2023 Assessment & Plan (08/15/2024 6:45 AM EDT): Reviewed Ht/Wt/BMI Recommend eye exam yearly Recommend dental exams twice a year Balance work/leisure activities Exercises is recommended most days of the week (appropriate as chronic conditions allow) Follow up yearly and prn Also gave info on advanced directives as well Assessment & Plan (06/07/2023 11:38 AM EDT): Reviewed Ht/Wt/BMI Recommend eye exam yearly Recommend dental exams twice a year Balance work/leisure activities Exercises is recommended most days of the week (appropriate as chronic conditions allow) Follow up yearly and prn Also gave info on advanced directives as well Hyperlipidemia 06/07/2023 Assessment & Plan (08/15/2024 6:45 AM EDT): Continue statin Check labs yearly, and prn dose changes Assessment & Plan (05/15/2024 6:38 AM EST): Continue statin Check labs yearly, and prn dose changes Assessment & Plan (06/07/2023 11:38 AM EDT): Continue statin Cervical spinal stenosis 06/07/2023 Bilateral carotid artery disease, unspecified ty pe 06/07/2023 Assessment & Plan (08/15/2024 6:44 AM EDT): Cont asa, statin Periodic monitoring with US 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 Assessment & Plan (02/15/2024 1:57 PM EST): Refer back to ольга 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 Overview (04/11/2024): EGD 04/11/24: osvaldos Assessment & Plan (02/15/2024 7:37 AM EST): Needs repeat EGD Ольга Assessment & Plan (06/07/2023 11:43 AM EDT): Will need to have repeat EGD, discussed that today, will wait and revisit in August appt d/t 's medical issues going on BPH (benign prostatic hyperplasia) 06/07/2023 Overview (11/29/2023): 2022: 3.12 11/29/23: 3.19 Assessment & Plan (02/15/2024 7:35 AM EST): Continue with flomax Assessment & Plan (06/07/2023 11:43 AM EDT): Has upcoming appt with urology Erectile dysfunction 06/07/2023 Primary hypertension 04/11/2023 Assessment & Plan (09/26/2024 10:19 AM EDT): Please check blood pressure daily and record DASH diet Limit caffeine Take medication as directed Contact office if chest pain, pressure, dizziness, shortness of breath, swelling legs Recommend slow position changes Cont current meds: lisinopril, carvedilol Clarification with Erich at [facility] , lisinopril dose is 20mg daily, should not be filling lisinopril 5mg dose Also contacted the [facility]'s pharmacy to have them deactivate the lisinopril 5mg script spoke with Juliet at 10:18am Assessment & Plan (08/15/2024 6:44 AM EDT): Please check blood pressure daily and record DASH diet Limit caffeine Take medication as directed Contact office if chest pain, pressure, dizziness, shortness of breath, swelling legs Recommend slow position changes Cont current meds: lisinopril, carvedilol Assessment & Plan (05/15/2024 6:35 AM EST): Please check blood pressure daily and record DASH diet Limit caffeine Take medication as directed Contact office if chest pain, pressure, dizziness, shortness of breath, swelling legs Recommend slow position changes Cont current meds: lisinopril, carvedilol Assessment & Plan (02/15/2024 1:55 PM EST): Please check blood pressure daily and record DASH diet Limit caffeine Take medication as directed Contact office if chest pain, pressure, dizziness, shortness of breath, swelling legs Recommend slow position changes Cont current meds Assessment & Plan (01/04/2024 6:49 PM EDT): Stable today in office, suspicion the intermittent dizziness he gets with a position changes is more of an orthostatic change Slow position changes Reviewing his med list: out list says lisinopril 20mg and amolodipine 5mg, he thinks his lisinopril is only 5 or 10mg and he does not think he is taking his amlodipine, I did call Joan at [facility] cardiology and she will verify Assessment & Plan (11/22/2023 1:00 PM EDT): No med dose changes at this time Assessment & Plan (10/11/2023 12:48 PM EDT): At goal Assessment & Plan (08/09/2023 9:58 AM EDT): Stable, no changes in meds Check chem 8 Assessment & Plan (06/07/2023 11:40 AM EDT): No changes in meds at this time Assessment & Plan (04/11/2023 8:51 AM EST): Stable, check labs WESTLEY (iron deficiency anemia) 04/11/2023 Assessment & Plan (05/15/2024 6:37 AM EST): Check labs in 06/19 Assessment & Plan (06/07/2023 11:39 AM EDT): Continue current meds Assessment & Plan (04/11/2023 8:52 AM EST): Check labs Lumbosacral pain 04/11/2023 Assessment & Plan (04/11/2023 8:53 AM EST): Follow with pain mgmt in the past, not currently If he decides we can try PT he will let me know PAD (peripheral artery disease) 03/25/2023 Assessment & Plan (05/15/2024 6:35 AM EST): Continue asa and statin Assessment & Plan (02/15/2024 7:34 AM EST): Continue asa and statin Assessment & Plan (06/07/2023 11:41 AM EDT): Continue statin and plavix, tight sugar and blood pressure control Assessment & Plan (04/11/2023 8:51 AM EST): Continue with cardiology and current meds Type 2 diabetes mellitus wit hout complication, with long-term current use of insulin 03/22/2023 Overview (02/22/2024): Per insurance approved insulin after 03/28/24: insulin glargine -yfgn (semglee) but order the insulin glargine Assessment & Plan (09/26/2024 10:15 AM EDT): Check blood sugars daily, notify if <70 or >200. Take medications (pills or insulin) as directed. Monitor for s/s of hypoglycemia (sweaty, dizziness, nausea, vomiting, or shakiness). Watch for increase in thirst, urination, or appetite. Inspect feet frequently monitoring for open wounds , and also recommend yearly eye exam. Pt should attempt to remain as physically active as chronic conditions allow, as well as trying to follow a diet low in carbohydrates, and simple sugars. No GLP-1 d/t hx of documented pancreatitis this patient is using his CGM (as evidenced by his above readings that are documented in the HPI section of the note), he is compliant with use, he benefits from the daily use of this device so that it can better notify him of fluctuations in his blood sugars so that adjustments can be made if needed in insulin dosing, or even po food/drink consumption as well Current meds: asa, statin, colleen, farxiga, insulin, metformin A1c: 6.3% 07/11/24 Assessment & Plan (08/15/2024 6:46 AM EDT): Check blood sugars daily, notify if <70 or >200. Take medications (pills or insulin) as directed. Monitor for s/s of hypoglycemia (sweaty, dizziness, nausea, vomiting, or shakiness). Watch for increase in thirst, urination, or appetite. Inspect feet frequently monitoring for open wounds , and also recommend yearly eye exam. Pt should attempt to remain as physically active as chronic conditions allow, as well as trying to follow a diet low in carbohydrates, and simple sugars. No GLP-1 d/t hx of documented pancreatitis this patient is using his CGM (as evidenced by his above readings that are documented in the HPI section of the note), he is compliant with use, he benefits from the daily use of this device so that it can better notify him of fluctuations in his blood sugars so that adjustments can be made if needed in insulin dosing, or even po food/drink consumption as well Current meds: asa, statin, colleen, farxiga, insulin, metformin A1c: 6.3% 07/11/24 Assessment & Plan (05/15/2024 10:27 AM EST): Check blood sugars daily, notify if <70 or >200. Take medications (pills or insulin) as directed. Monitor for s/s of hypoglycemia (sweaty, dizziness, nausea, vomiting, or shakiness). Watch for increase in thirst, urination, or appetite. Inspect feet frequently monitoring for open wounds , and also recommend yearly eye exam. Pt should attempt to remain as physically active as chronic conditions allow, as well as trying to follow a diet low in carbohydrates, and simple sugars. No GLP-1 d/t hx of documented pancreatitis this patient is using his CGM (as evidenced by his above readings that are documented in the HPI section of the note), he is compliant with use, he benefits from the daily use of this device so that it can better notify him of fluctuations in his blood sugars so that adjustments can be made if needed in insulin dosing, or even po food/drink consumption as well Current meds: asa, statin, colleen, farxiga, insulin, metformin Bump up dose of metformin to 500mg BID Assessment & Plan (04/24/2024 6:03 AM EST): Check blood sugars daily, notify if <70 or >200. Take medications (pills or insulin) as directed. Monitor for s/s of hypoglycemia (sweaty, dizziness, nausea, vomiting, or shakiness). Watch for increase in thirst, urination, or appetite. Inspect feet frequently monitoring for open wounds , and also recommend yearly eye exam. Pt should attempt to remain as physically active as chronic conditions allow, as well as trying to follow a diet low in carbohydrates, and simple sugars. No GLP-1 d/t hx of documented pancreatitis No obvious reason that he is off metformin, I did verify with cardiology We will trial a restart of this metfromin 500mg daily Fu in 3 months Addendum placed on this note on 04/24/24: this patient is using his CGM (as evidenced by his above readings that are documented in the HPI section of the note), he is compliant with use, he benefits from the daily use of this device so that it can better notify him of fluctuations in his blood sugars so that adjustments can be made if needed in insulin dosing, or even po food/drink consumption as well Assessment & Plan (01/04/2024 6:50 PM EDT): Consider GLP 1 possible hx of Pancreatitis but not totally sure, will look back in records If no GLP 1, consider bolus insulin with meals See list of blood sugar reads Assessment & Plan (10/11/2023 12:51 PM EDT): Reviewed his A1c 8.5% Dexcom 7 sample activities leader and sensor given: Lot [id number] 10/25/22, sensors #2: [id number] exp 07/25/24 Currently taking 20 units of insulin, metformin has been stopped as well Assessment & Plan (08/09/2023 10:05 AM EDT): Check blood sugars daily, notify if <70 or >200. Take medications (pills or insulin) as directed. Monitor for s/s of hypoglycemia (sweaty, dizziness, nausea, vomiting, or shakiness). Watch for increase in thirst, urination, or appetite. Inspect feet frequently monitoring for open wounds , and also recommend yearly eye exam. Pt should attempt to remain as physically active as chronic conditions allow, as well as trying to follow a diet low in carbohydrates, and simple sugars. Assessment & Plan (06/07/2023 11:40 AM EDT): Check blood sugars daily, notify if <70 or >200. Take medications (pills or insulin) as directed. Monitor for s/s of hypoglycemia (sweaty, dizziness, nausea, vomiting, or shakiness). Watch for increase in thirst, urination, or appetite. Inspect feet frequently monitoring for open wounds , and also recommend yearly eye exam. Pt should attempt to remain as physically active as chronic conditions allow, as well as trying to follow a diet low in carbohydrates, and simple sugars. Recommend eye examination to get scheduled Assessment & Plan (04/11/2023 8:52 AM EST): No changes in dose of insulin or meds Check labs Check blood sugars daily, notify if <70 or >200. Take medications (pills or insulin) as directed. Monitor for s/s of hypoglycemia (sweaty, dizziness, nausea, vomiting, or shakiness). Watch for increase in thirst, urination, or appetite. Inspect feet frequently monitoring for open wounds , and also recommend yearly eye exam. Pt should attempt to remain as physically active as chronic conditions allow, as well as trying to follow a diet low in carbohydrates, and simple sugars. Coronary artery disease invo lving [place] coronary artery of [place] heart without angina pectoris 03/02/2023 Overview (03/02/2023): Had heart cath on 02/28/23: RCA and proximal in stent restenosis synergy stent Plavix for at least 6 months, ending 09/18 81mg asa life long Assessment & Plan (05/15/2024 6:34 AM EST): Follows with cardiology Current meds: asa, statin, b cesilia, Assessment & Plan (04/11/2023 8:52 AM EST): Had recent cath, cont asa and plavix, and statin No acute symptoms at this time COPD, moderate 07/01/2022 Assessment & Plan (06/07/2023 11:40 AM EDT): Stable, Nonrheumatic mitral valve regurgitation 06/26/19 Overview (06/07/2023): Last Assessment & Plan: Normal ejection fraction,Moderate to severe mitral valve regurg with elevated right-sided pressures noted on recent echo reviewed with patient No concerning symptoms at this time discussed with patient for symptoms to call office which included dyspnea, orthopnea, weight gain, water retention he voiced understanding Assessment & Plan (11/22/2023 1:00 PM EDT): Cont with cardiology for recommendations Assessment & Plan (06/07/2023 11:41 AM EDT): Cont with cardiology 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 In-stent occlusion of the left common and external iliac arteries with reconstitution at the level of the left common femoral artery. 2. Severe disease of the right external and internal iliac arteries including aneurysmal disease of the internal iliac. 3. Moderate disease of the right superficial femoral artery. 4. Two-vessel runoff of the right lower extremity with severe ostial disease involving the anterior tibial artery. RECOMMENDATIONS: 1. Will refer the patient to Vascular Surgery; a hybrid approach involving open surgery and endovascular techniques is recommended given combined long segment chronic total occlusion of the iliac arteries as well as severe disease extending into the common femoral artery. 2. Risk stratification prior to open vascular surgery; a Lexiscan stress test has been ordered. 3. A CTA of the abdominal aorta and bilateral lower extremities to evaluate the left lower extremity vascular supply. 4. Aggressive cardiovascular risk factor modification. 5. Optimization of medical management; aspirin, high intensity statin therapy, a beta cesilia, plus or minus an angiotensin-converting enzyme inhibitor are indicated. 6. Follow up with Dr. Campo in the next several weeks. 7. Follow up with Dr. Ruiz, Vascular Surgery as well as the patient's family physician. Last Assessment & Plan: Coronary artery disease is Stable without any concerning symptom Continue goal-directed medical therapy- Aspirin, Lipitor, Toprol And ramipril Assessment & Plan (02/15/2024 7:35 AM EST): Cont with asa, statin, b cesilia And cardiology Assessment & Plan (10/11/2023 12:55 PM EDT): Continue current meds Tight sugar control as well as bp control Is to have fu MRI in about 4 weeks and plan will be fore [facility] as well as possible ablation? Reviewed notes, labs, and med changes Lumbosacral spondylosis without myelopathy 09/19 Overview (06/07/2023): Added automatically from request for surgery Added automatically from request for surgery Assessment & Plan (02/15/2024 1:59 PM EST): Will call his pain mgmt to schedule Disc displacement, lumbar 06/07/2019 Overview (06/07/2023): Added automatically from request for surgery [id number] Added automatically from request for surgery [id number] Resolved Problems Problem Noted Date Diagnosed Date Resolved Date Cough 10/11/2023 10/11/2023 Overview (10/11/2023): Common respiratory bacterial/viral infection (HTRX) Specimen swab (nasal) [id number] Lot # [id number] EXP. 11/17/2023 Tobacco user 06/07/2023 06/07/2023 Encounters Date Type Department Care Team Description 10/24/2024 Refill [facility] [address] [place] [address] Marisol Boyce NP Mixed hyperlipidemia (Primary Dx) 10/03/2024 Refill [facility] [address] [place] [address] Marisol Boyce NP PAD (peripheral artery disease) (Primary Dx); Paroxysmal atrial fibrillation (HCC) 09/26/2024 9:00 AM EDT Office Visit [facility] [address] [place] [address] Marisol Boyce NP Dizziness and giddiness (Primary Dx); Pulmonary hypertension, unspecified (HCC); Primary hypertension ; Palmer's esophagus with dysplasia; Type 2 diabetes mellitus without complication, with long-term current use of insulin (HCC) 09/26/2024 Telephone [facility] [address] [place] [id number] Marisol Boyce NP 09/26/2024 Bamboo flowsheet [facility] [address] [place] [address] Marisol Boyce NP from Last 3 Months Immunizations Immunization Administration Dates Next Due Influenza, High Dose Seasona l, Preservative Free 02/09/2024,01/28/2018,01/17/2015 Influenza, High-dose Seasona l, Quadrivalent, Preservative Free 01/31/2023,02/12/2022,02/02/2021,11/29 Influenza, Unspecified 02/15/2023,10/17/2021 Influenza, seasonal, injectable 03/12/2014,01/10 Influenza, trivalent, adjuvanted 12/29/2018,01/26 Pneumococcal Conjugate PCV 13 11/30/2019 Pneumococcal Polysaccharide PPSV23 02/15/2023,,12/10/2014 Zoster, live 03/12/2014 Family History Medical History Relation Name Comments Cancer Father Diabetes Father Heart disease Father Relation Name Status Comments Father Mother Alive Social History Tobacco Use Types Packs/Day Years Used Date Smoking Tobacco: Former Cigarettes Smokeless Tobacco: Never Tobacco Cessation:Counseling Given: Not Answered Alcohol Use Standard Drinks/Week Comments Yes 0 (1 standard drink = 0.6 oz pur e alcohol) monthly or less Humiliation, Afraid, Rape, and Kick questionnair e Answer Date Recorded Within the last year, have y ou been afraid of your partner or ex-partner? No 06/07/2023 Within the last year, have y ou been humiliated or emotionally abused in other ways by your partner or ex-partner? No Within the last year, have y ou been kicked, hit, slapped, or otherwise physically hurt by your partner or ex-partner? No 06/07/2023 Within the last year, have y ou been raped or forced to have any kind of sexual activity by your partner or ex-partner? No 06/07/2023 Social Connection and Isolat ion Panel [NHANES] Answer Date Recorded In a typical week, how many times do you talk on the phone with family, friends, or neighbors? More than three times a week 06/07/2023 How often do you get togethe r with friends or relatives? Once a week 06/07/2023 How often do you attend chur ch or tenriism services? More than 4 times per year 06/07/2023 Do you belong to any clubs o r organizations such as alevism groups, unions, fraternal or athletic groups, or school groups? No 06/07/2023 How often do you attend meet ings of the clubs or organizations you belong to? Never 06/07/2023 Are you , , di vorced, , never , or living with a partner? 06/07/2023 AUDIT-C Answer Date Recorded Q1: How often do you have a drink containing alcohol? Monthly or less 06/07/2023 Q2: How many drinks containi ng alcohol do you have on a typical day when you are drinking? Patient does not drink Q3: How often do you have si x or more drinks on one occasion? Never 06/07/2023 Overall Financial Resource Strain (CARDIA) Answe r Date Recorded How hard is it for you to pa y for the very basics like food, housing, medical care, and heating? Not hard at all 06/07/2023 PHQ-2 Answer Date Recorded Patient Health Questionnaire-2 Score 0 08/15/2024 [facility] - Occupational Stress Questionnaire Answer Date Recorded Do you feel stress - tense, restless, nervous, or anxious, or unable to sleep at night because your mind is troubled all the time - these days? To some extent 06/07/2023 Exercise Vital Sign Answer Date Recorde d On average, how many days pe r week do you engage in moderate to strenuous exercise (like a brisk walk)? 0 days 06/07/2023 On average, how many minutes do you engage in exercise at this level? 0 min 06/07/2023 Hunger Vital Sign Answer Date Recorded Within the past 12 months, y ou worried that your food would run out before you got the money to buy more. Never true 06/07/19 24 Within the past 12 months, t he food you bought just didn't last and you didn't have money to get more. Never true 06/07/2023 PRAPARE - Transportation Answer Date Re corded In the past 12 months, has l ack of transportation kept you from medical appointments or from getting medications? No 05/26 In the past 12 months, has l ack of transportation kept you from meetings, work, or from getting things needed for daily living? No 06/07/2023 Housing Stability Vital Sign Answer Jasper e Recorded In the last 12 months, was t here a time when you were not able to pay the mortgage or rent on time? No 06/07/2023 In the last 12 months, how many places have you lived? 1 06/07/2023 In the last 12 months, was t here a time when you did not have a steady place to sleep or slept in a residential (including now)? No 06/07/2023 Sex and Gender Information Value Date Recorded Sex Assigned at Not on file Legal Sex Male 6:36 PM EDT Gender Identity Not on file Sexual Orientation Not on file Last Filed Vital Signs Vital Sign Reading Time Taken Comments Blood Pressure 128/60 09/26/2024 8:53 AM EDT Pulse 60 09/26/2024 8:53 AM EDT Temperature 36.6 C (97.8 F) 09/26/2024 8:53 AM EDT Respiratory Rate 18 09/26/2024 8:53 AM EDT Oxygen Saturation 98% 09/26/2024 8:53 AM EDT Inhaled Oxygen Concentration - - Weight 76.1 kg (167 lb 12.8 oz) 09/26/2024 8:53 AM EDT Height 182.9 cm (6') 05/15/2024 9:26 AM EST Body Mass Index 22.76 05/15/2024 9:26 AM EST Plan of Treatment Health Maintenance Due Date Last Done Comments CT Colonography 1945 FIT-DNA 1945 FIT 1945 Sigmoidoscopy 1945 FOBT 06/24/2023 06/23/2022 Diabetes: Hemoglobin A1C 10/10/2024 025, 03/13/2024, 11/29/2023, Additional history exists Influenza Vaccine (#1) 2024 4, 02/15/2023, 01/31/2023, Additional history exists Diabetes: Urine Protein Screening 07/11/2025 07/11/2024, 05/04/2023, 05/04/2023, Additional history exists Medicare Annual Wellness (AWV) 08/15/2025 0 08/15/2024, 08/15/2024, 06/07/2023, Additional history exists Diabetes: Retinopathy Screening 09/26/2026 Colonoscopy 04/11/2029 04/11/2024, 10/26/2018 Colorectal Cancer Screening 04/11/2029 Pneumococcal Vaccine: 65+ Years Completed 02/15/2023, 10/17/2021, 11/30/2019, Additional history exists Procedures Procedure Name Priority Date/Time Associated Diagnosis Comments [facility] [place] Routine 07/11/2024 1:55 PM EDT MICROALBUMIN / CREATININE URINE RATIO Routine 05/04/2023 8:58 AM EST from Last 3 Months or Most Recently Relevant to Health Maintenance Results * (ABNORMAL) [facility] [place] (07/11/2024 1:55 PM EDT) [facility] HEMOGLOBIN A1C/HEMOGLOBIN. TOTAL:MFR:PT:BL D:QN: 6.3(H) <=5.9 % [facility] Blood 07/11/2024 1:55 PM EDT 07/11/2024 5:55 PM EDT Narrative [facility] - 07/11/2024 9:48 PM EDT Original Ordering Provider: ELO BOYCE us Marisol Boyce NP [facility] Final Result [facility] [place] Microalbumin / creatinine urine ratio (05/04/2023 8:58 AM EST) MICROALBUMIN, URINE <0.7 0.0 - 1.9 mg/dL [facility] URINE CREAT 108.56 mg/dL [facility] ALB/CREAT RATIO NOT CALCULATED 0.0 - 30.0 mg/g creat [facility] Comment: Result for Albumin/Creatinine Ratio cannot be reliably calculated because urine albumin and or urine creatinine is below the detection limit of the assay. PERFORMED AT [facility] [address],[place] [address] 05/04/2023 8:58 AM EST 05/04/2023 9:00 AM EST us Marisol Boyce [facility] URINE ORDERABLES Final Resu lt [facility] from Last 3 Months or Most Recently Relevant to Health Maintenance Insurance [employer] Care Teams Control Panel Operator Relationship Specialty Start Date End Date Prabhjot Roman MD [address] [place] [address] PCP - General Family Medicine 06/07/23 Marisol Boyce NP [address] [place] [address] PCP - O [facility] 05/04/24 Marisol Boyce NP Nurse Practitioner Family Medicine 03/28/22 Marisol Boyce NP Nurse Practitioner Family Medicine 06/07/23
--- OUTSIDE RECORDS SUMMARY | 2024-11-27 11:19 | XMS_ITS | Encounter Summary ---
Author Organization [facility] Address [address] [place] [address] Care Team Providers Care Graining Operator Name Role Phone Marisol Boyce CARDIOPULMONARY TECHNOLOGIST CHIEF Unavailable [phone] Prabhjot Roman MD Primary Care Provider [phone] Marisol Boyce NP Unavailable [phone] Marisol Boyce NP Unavailable [phone] Encounter Details Date Type Department Care Team (Late st Contact Info) Description 03/19/2024 [facility] Result Encounter [facility] External Department Unsolicited Provider, Generic External Data Social History Tobacco Use Types Packs/Day Years Used Date Smoking Tobacco: Former Cigarettes Smokeless Tobacco: Never Alcohol Use Standard Drinks/Week Comments Yes 0 [...] 06/07/2023 How often do you attend chur or roman catholic services? More than 4 times per year 06/07/2023 Do you belong to any clubs o r organizations such as latter-day groups, unions, fraternal or athletic groups, or [...] Date Recorded Patient Health Questionnaire-2 Score 0 06/07/2023 [facility] - Occupational Stress [...] place to sleep or slept in a long term (including now)? No 06/07/2023 Sex and Gender Information Value Date Recorded Sex Assigned at Not on file Legal Sex Male 6:36 PM EDT Gender Identity Not on file Sexual Orientation Not on file documented as of this encounter Plan of Treatment Not on file documented as of this encounter Procedures Procedure Name Priority Date/Time Associated Diagnosis Comments CA ECHO DOPPLER COMPLETE 03/19/2024 6:57 PM EST documented in this encounter Results * CA ECHO DOPPLER COMPLETE (03/19/2024 6:57 PM EST) Anatomical Region Laterality Modality Other 03/19/2024 6:57 PM EST Narrative 03/19/2024 6:58 [place] [address] Cardiology Report Signed Patient: JARON MCARTHUR MR#: [id number] : 1945 Acct:[id number] Age/Sex: 78 / M ADM Date: 03/19/24 Loc: CARD Attending Dr: Jing Carter M.D. Ordering Physician: Jing Carter M.D. Date of Service: 03/19/24 Procedure(s): CA echo doppler complete Accession Number(s): [id number] cc: Marisol Boyce CARDIOPULMONARY TECHNOLOGIST CHIEF; Jing Carter M.D. Patient Name: JARON MCARTHUR MR#: [id number] : 1945 Exam Date: 03/19/2024 Ordering Doctor: DR JING CARTER M.D. ECHOCARDIOGRAM REPORT 8 PROCEDURE: CA ECHO DOPPLER COMPLETE INDICATIONS: Mitral valve regurgitation COMPARISON: None. DESCRIPTION: COMPLETE ECHOCARDIOGRAM Real-time transthoracic echocardiography with 2D, M-mode, spectral and color flow Doppler performed. QUALITY: Technical quality was good. LEFT VENTRICLE: Mild chamber dilatation. Proximal septal hypertrophy (sigmoid septum). Global left ventricular systolic function is at the lower limits of normal. 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 The remaining segments contract well. LV EF: Visual estimation of left ventricular ejection fraction is 50%. DIASTOLIC: Grade I diastolic dysfunction. ATRIAL SEPTUM: LEFT ATRIUM: Moderate dilatation. RIGHT ATRIUM: Mild dilatation. Normal systolic function. RIGHT VENTRICLE: Normal chamber size. Normal right ventricular systolic function. TRICUSPID VALVE: Normal mobility and thickness. No stenosis with mild to moderate regurgitation. Mild pulmonary hypertension. RVSP 41 mmHg MITRAL VALVE: Normal mobility. No evidence of mitral valve stenosis. There is moderate posterior mitral annular calcification. Moderate mitral regurgitation. AORTIC VALVE: Normal trileaflet appearance. No visible sclerosis. Normal leaflet mobility. No evidence of aortic valve stenosis. No aortic regurgitation. AORTIC ROOT: Normal diameter and appearance. PULMONIC VALVE: Normal thickness and mobility. No stenosis. No regurgitation. PERICARDIUM: No evidence of pericardial effusion. IVC: Collapses with inspirations. Normal size PLEURA: CONCLUSION: 1. The left ventricle is mildly dilated. 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 Global left ventricular systolic function is at the lower limits of normal. Estimated LVEF is 50%. 2. Normal right ventricular size and systolic function. 3. Mild to moderate biatrial dilatation. 4. Grade 1 diastolic dysfunction. 5. Moderate mitral regurgitation. 6. Mild to moderate tricuspid regurgitation. 7. Mildly elevated right-sided pressures. Adult Echocardiography Procedure Report Left Ventricle LVEDD (3.7 - 5.6 cm): 6.23 cm LVESD (2.2 - 4.0 cm): 5.28 cm LVIVS thickness (0.6 - 1.2 cm): 1.31 cm LVPW thickness (0.5 - 1.0 cm): 1.06 cm e': 0.07 m/s E - e': 9.93 LVOT Max Gradient: 2.96 mm[Hg] LVOT Area (cm2): 0.86 m/s Peak Velocity (LVOT): 0.86 m/s Mean Velocity (LVOT): 0.62 m/s LVOT Diameter 2.07 cm Left Ventricular Ejection Fraction: 50 % Left Atrium LA Volume Index (2D A2C): 38.07 ml/m2 Left Atrium Systolic Dimension: 4.70 cm Mitral Valve MV E to A Ratio: 0.84 Mitral Valve A-Wave Peak Velocity: 0.85 m/s Mitral Valve E-Wave Peak Velocity: 0.72 m/s Right Ventricle RV Internal Diastolic Dimension: 3.71 cm Aorta AO Root Diam: 3.55 cm Ascending Ao Diam: 3.01 cm Aortic Valve AoV Area (Peak Jeramy): 2.70 cm2, 2.70 cm2 AoV Area (VTI): 2.57 cm2, 2.57 cm2 Peak Velocity(Antegrade Flow): 1.07 m/s Peak Gradient(Antegrade Flow): 4.60 mm[Hg] Mean Velocity(Antegrade Flow): 0.78 m/s Mean Gradient(Antegrade Flow): 2.75 mm[Hg] Velocity Time Integral: 30.42 cm Tricuspid Valve Peak Velocity (Regurgitant Flow): 3.06 m/s, 3.09 m/s, 3.09 m/s Pulmonic Valve Mean Gradient: 1.58 mm[Hg], 1.34 mm[Hg] Mean Velocity: 0.59 m/s, 0.54 m/s Peak Velocity: 0.81 m/s Peak Gradient: 2.80 mm[Hg], 2.43 mm[Hg] Right Atrium Right Atrium Systolic Pressure: 78.48 ml, 78.48 ml Dictated by: Eliezer Silveira M.D. on 03/19/2024 at 18:45 Approved by: Eliezer Silveira M.D. on 03/19/2024 at 18:57 Dictated By: ELIEZER SILVEIRA Signed By: 03/19/241857 DD/ 56 TD/TT: Freelance Operator: Procedure Note Radiology, Radiologist, MD - 03/19/2024 [facility] [place] [id number] Cardiology Report Signed Patient: JARON MCARTHUR AMR#: [id number] : 1945cct:[id number] Age/Sex: 78 / MADM Date: 03/19/24 Loc: CARD Attending Dr: Jing Carter M.D. Ordering Physician: Jing Carter M.D. Date of Service: 03/19/24 Procedure(s): CA echo doppler complete Accession Number(s): [id number] cc: Marisol Boyce NP; Jing Carter M.D. Patient Name: JARON MCARTHUR MR#: [id number] : 1945 Exam Date: 03/19/2024 Ordering Doctor: DR JING CARTER M.D. ECHOCARDIOGRAM REPORT 8 PROCEDURE: CA ECHO DOPPLER COMPLETE INDICATIONS: Mitral valve regurgitation COMPARISON: None. DESCRIPTION: COMPLETE ECHOCARDIOGRAM Real-time transthoracic echocardiography with 2D, M-mode, spectral and color flow Dopplerperformed. QUALITY: Technical quality was good. LEFT VENTRICLE: Mild chamber dilatation. Proximal septal hypertrophy (sigmoid septum). Global left ventricular systolic function is at thelower limits of normal. The basal inferior and inferolateral vasquez areaneurysmal. The remaining segments contract well. LV EF: Visual estimation of left ventricular ejection fraction is 50%. DIASTOLIC: Grade I diastolic dysfunction. ATRIAL SEPTUM: LEFT ATRIUM: Moderate dilatation. RIGHT ATRIUM: Mild dilatation. Normal systolic function. RIGHT VENTRICLE: Normal chamber size. Normal right ventricularsystolic function. TRICUSPID VALVE: Normal mobility and thickness. No stenosis with mild to moderate regurgitation. Mild pulmonary hypertension. RVSP 41 mmHg MITRAL VALVE: Normal mobility. No evidence of mitral valve stenosis. There is moderate posterior mitral annular calcification. Moderate mitral regurgitation. AORTIC VALVE: Normal trileaflet appearance. No visible sclerosis.Normal leaflet mobility. No evidence of aortic valve stenosis. No aortic regurgitation. AORTIC ROOT: Normal diameter and appearance. PULMONIC VALVE: Normal thickness and mobility. No stenosis. Noregurgitation. PERICARDIUM: No evidence of pericardial effusion. IVC: Collapses with inspirations. Normal size PLEURA: CONCLUSION: 1. The left ventricle is mildly dilated. The basal inferior andinferolateral segments are aneurysmal. Global left ventricular systolic function is atthe lower limits of normal. Estimated LVEF is 50%. 2. Normal right ventricular size and systolic function. 3. Mild to moderate biatrial dilatation. 4. Grade 1 diastolic dysfunction. 5. Moderate mitral regurgitation. 6. Mild to moderate tricuspid regurgitation. 7. Mildly elevated right-sided pressures. Adult Echocardiography Procedure Report Left Ventricle LVEDD (3.7 - 5.6 cm): 6.23 cm LVESD (2.2 - 4.0 cm): 5.28 cm LVIVS thickness (0.6 - 1.2 cm): 1.31 cm LVPW thickness (0.5 - 1.0 cm): 1.06 cm e': 0.07 m/s E - e': 9.93 LVOT Max Gradient: 2.96 mm[Hg] LVOT Area (cm2): 0.86 m/s Peak Velocity (LVOT): 0.86 m/s Mean Velocity (LVOT): 0.62 m/s LVOT Diameter 2.07 cm Left Ventricular Ejection Fraction: 50 % Left Atrium LA Volume Index (2D A2C): 38.07 ml/m2 Left Atrium Systolic Dimension: 4.70 cm Mitral Valve MV E to A Ratio: 0.84 Mitral Valve A-Wave Peak Velocity: 0.85 m/s Mitral Valve E-Wave Peak Velocity: 0.72 m/s Right Ventricle RV Internal Diastolic Dimension: 3.71 cm Aorta AO Root Diam: 3.55 cm Ascending Ao Diam: 3.01 cm Aortic Valve AoV Area (Peak Jeramy): 2.70 cm2, 2.70 cm2 AoV Area (VTI): 2.57 cm2, 2.57 cm2 Peak Velocity(Antegrade Flow): 1.07 m/s Peak Gradient(Antegrade Flow): 4.60 mm[Hg] Mean Velocity(Antegrade Flow): 0.78 m/s Mean Gradient(Antegrade Flow): 2.75 mm[Hg] Velocity Time Integral: 30.42 cm Tricuspid Valve Peak Velocity (Regurgitant Flow): 3.06 m/s, 3.09 m/s, 3.09 m/s Pulmonic Valve Mean Gradient: 1.58 mm[Hg], 1.34 mm[Hg] Mean Velocity: 0.59 m/s, 0.54 m/s Peak Velocity: 0.81 m/s Peak Gradient: 2.80 mm[Hg], 2.43 mm[Hg] Right Atrium Right Atrium Systolic Pressure: 78.48 ml, 78.48 ml Dictated by: Eliezer Silveira M.D. on 03/19/2024 at 18:45 Approved by: Eliezer Silveira M.D. on 03/19/2024 at 18:57 Dictated By: ELIEZER SILVEIRA Signed By:03/19/241857 DD/ 56 TD/TT: Freelance Operator: us Generic External Data Provider [facility] Final Result documented in this encounter Visit Diagnoses Not on filedocumented in this encounter Additional Health Concerns Assessment Noted Time PHQ-9 Depression Total Score: 1 06/07/19 10:36 AM EDT documented as of this encounter Care Teams Graining Operator Relationship Specialty Start Date End Date Prabhjot Roman MD [address] [place] [address] PCP - General Family Medicine 06/07/23 Marisol oByce NP [address] [place] [address] PCP - [facility] 05/04/24 Marisol Boyce NP Nurse Practitioner Family Medicine 03/28/22 Marisol Boyce NP Nurse Practitioner Family Medicine 06/07/23 documented as of this encounter
--- OUTSIDE RECORDS SUMMARY | 2024-11-27 11:19 | XMS_ITS | Encounter Summary ---
Author Organization [facility] Address [address] [place] [address] Care Team Providers Care Cardiovascular Or Nurse Name Role Phone Marisol Boyce NP Unavailable [phone] Prabhjot Roman MD Primary Care Provider [phone] Marisol Boyce NP Unavailable [phone] Marisol Boyce NP Unavailable [phone] Encounter Details Date Type Department Care Team (Late st Contact Info) Description 07/12/2024 Orders Only [facility] [address] [place] [address] Marisol Boyce NP [address] [place] [address] Social History Tobacco Use Types Packs/Day Years [...] week 06/07/2023 How often do you attend [facility] or evangelical services? More than 4 times per year 06/07/2023 Do you belong to any clubs o r organizations such as pentecostalism groups, unions, fraternal or athletic groups, or [...] Recorded Patient Health Questionnaire-2 Score 0 06/07/2023 [facility] - Occupational Stress [...] money to buy more. Never true 06/07/19 Within the past 12 months, t he [...] place to sleep or slept in a group home (including now)? No 06/07/2023 Sex and Gender Information Value Date Recorded Sex Assigned at Not on file Legal Sex Male 6:36 PM EDT Gender Identity Not on file Sexual Orientation Not on file documented as of this encounter Plan of Treatment Not on file documented as of this encounter Procedures Procedure Name Priority Date/Time Associated Diagnosis Comments SCANNED LABS Routine 07/12/2024 10:28 AM EDT SCANNED LABS Routine 07/12/2024 10:18 AM EDT documented in this encounter Results * SCANNED LABS (07/12/2024 10:28 AM EDT) Marisol Boyce NP LAB CHG PERFORMABLES Final Resu lt * SCANNED LABS (07/12/2024 10:18 AM EDT) Marisol Boyce SENIOR GAMEMASTER LAB CHG PERFORMABLES Final Resu lt documented in this encounter Visit Diagnoses Not on filedocumented in this encounter Additional Health Concerns Assessment Noted Time PHQ-9 Depression Total Score: 1 06/07/19 24 10:36 AM EDT documented as of this encounter Care Teams Cardiovascular Or Nurse Relationship Specialty Start Date End Date Prabhjot Roman MD [address] [place] [address] PCP - General Family Medicine 06/07/23 Marisol Boyce NP [address] [place] [address] PCP - [facility] 05/04/24 Marisol Boyce NP Nurse Practitioner Family Medicine 03/28/22 Marisol Boyce NP Nurse Practitioner Family Medicine 06/07/23 documented as of this encounter
--- OUTSIDE RECORDS SUMMARY | 2024-11-27 11:19 | XMS_ITS | Encounter Summary ---
Author Organization [facility] Address [address] [place] [address] Care Team Providers Care [address] Mechanical Engineer Name Role Phone Marisol Boyce MECHANICAL SPECIALIST Unavailable [phone] Prabhjot Roman MD Primary Care Provider [phone] Prabhjot Roman MD Primary Care Provider [phone] Marisol Boyce MECHANICAL SPECIALIST Unavailable [phone] Marisol Boyce MECHANICAL SPECIALIST Unavailable [phone] Encounter Details Date Type Department Care Team (Late st Contact Info) Description 04/10/2023 Abstract [facility] [address] [place] [address] Marisol Boyce, MECHANICAL SPECIALIST [address] [place] [address] Social History Tobacco Use Types Packs/Day Years Used Date Smoking Tobacco: Former Cigarettes Tobacco Cessation:Counseling Given: Not Answered Alcohol Use Standard Drinks/Week Comments Yes 0 (1 standard drink = 0.6 oz pur e alcohol) monthly or less Sex and Gender Information Value Date Recorded Sex Assigned at Not on file Legal Sex Male 6:36 PM EDT Gender Identity Not on file Sexual Orientation Not on file documented as of this encounter Plan of Treatment Not on file documented as of this encounter Visit Diagnoses Not on filedocumented in this encounter Care Teams Rd Mechanical Engineer Relationship Specialty Start Date End Date Prabhjot Roman MD PCP - General Family Medicine 04/06/23 06/06/23 Prabhjot Roman MD [address] [place] [address] PCP - General Family Medicine 06/07/23 Marisol Boyce NP [address] [place] [address] PCP - [facility] 05/04/24 Marisol Boyce NP Nurse Practitioner Family Medicine 03/28/22 Mairsol Boyce NP Nurse Practitioner Family Medicine 06/07/23 documented as of this encounter
--- OUTSIDE RECORDS SUMMARY | 2024-11-27 11:19 | XMS_ITS | Clinical Summary ---
Author Organization [facility] Address [address] [place], [place] [address] Care Team Providers Care Insurance Loss Assessor Name Role Phone Unavailable Primary Care Provider Unavailabl e Social History Tobacco Use Types Packs/Day Years Used Date Smoking Tobacco: Never Assessed Sex and Gender Information Value Date Recorded Sex Assigned at Not on file Legal Sex Male 12:00 PM EST Gender Identity Not on file Sexual Orientation Not on file Plan of Treatment Health Maintenance Due Date Last Done Comments Anxiety Screening 1963 Depression Screening 1963 Hepatitis C Screening 1963 DTaP,Tdap,Td Vaccine (1 - Tdap) 1965 Diabetes Screening 09/14/1991 Shingrix Vaccine (2 of 3) 05/07/2014 03/12/2014 Pneumococcal Vaccine: 50+ (2 of 2 - PCV) 12/11/2015 12/10/2014 RSV Vaccine (1 - 1-dose 75+ series) 2021 Advance Directive Discussion 03/28/2024 Influenza Vaccine (#1) 2024 9, 01/28/2018, 02/11/2017, Additional history exists Insurance MEDICARE
--- OUTSIDE RECORDS SUMMARY | 2024-11-27 11:19 | XMS_ITS | Encounter Summary ---
Author Organization [facility] Address [address] [place] [address] Care Team Providers Care Match Marker Name Role Phone Marisol Boyce WARP DYEING TENDER Unavailable [phone] Prabhjot Roman MD Primary Care Provider [phone] Marisol Boyce NP Unavailable [phone] Marisol Boyce NP Unavailable [phone] Encounter Details Date Type Department Care Team (Late st Contact Info) Description 12/09/2023 Clinisync Result Encounter [facility] External Department Unsolicited [...] How often do you attend chur or taoist services? More than 4 times per year 06/07/2023 Do you belong to any clubs o r organizations such as gnosticist groups, unions, fraternal or athletic groups, or [...] Recorded Patient Health Questionnaire-2 Score 0 06/07/2023 [facility] - [...] place to sleep or slept in a custodial (including now)? No 06/07/2023 Sex and Gender Information Value Date Recorded Sex Assigned at Not on file Legal Sex Male 6:36 PM EDT Gender Identity Not on file Sexual Orientation Not on file documented as of this encounter Plan of Treatment Not on file documented as of this encounter Procedures Procedure Name Priority Date/Time Associated Diagnosis Comments NM TONE PERF SPECT REST STR 12/09/2023 2:53 PM EDT documented in this encounter Results * NM TONE PERF SPECT REST STR (12/09/2023 2:53 PM EDT) Anatomical Region Laterality Modality Other 12/09/2023 2:53 PM EDT Narrative 12/09/2023 2:54 [place] [address] Nuclear Medicine Report Signed Patient: JARON MCARTHUR MR#: [id number] : 1945 Acct:[id number] Age/Sex: 78 / M ADM Date: 12/09/23 Loc: [place] Attending Dr: Natasha Campo M.D. Ordering Physician: Natasha Campo M.D. Date of Service: 12/09/23 Procedure(s): NM tone perf SPECT rest str Accession Number(s): [id number] cc: Marisol Boyce WARP DYEING TENDER; Natasha Campo M.D. Patient Name: JARON BREWER#: [id number] : 1945 Exam Date: 12/09/2023 Ordering Doctor: DR Natasha Campo M.D. RADIOLOGY REPORT PROCEDURE: NM TONE PERF SPECT REST STR COMPARISON: NM TONE PERF SPECT REST STR, 01/12/2023. 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 NAGY . For more details please see separate cardiac stress test report. FINDINGS: QUALITY OF STUDY: PERFUSION DEFECT: LOCATION: Basal inferior. Mid-inferior. [place]. SIZE: Medium (3-4 segments). SEVERITY: Moderate. TYPE: Persistent. WALL MOTION: Mild hypokinesis: LV SIZE: Enlarged; EDV 135 mL. TID / TCD: None; 1.1 LVEF: Abnormal. Calculated EF 49%. SUMMARY: Myocardial perfusion imaging study has ABNORMAL findings. CONCLUSION: 1. Fixed defect inferior wall, RCA distribution with no redistribution to suggest reversible ischemia 2. Large left ventricle, EDV 135 milliliters 3. Low left ventricular ejection fraction of 49% 4. Pending exercise test results Dictated by: James Sorto MD on 12/09/2023 at 14:50 Approved by: James Sorto MD on 12/09/2023 at 14:53 Dictated By: James Sorto M.D. Signed By: 12/09/23 1454 DD/ 52 TD/TT: Hand Mixer: Procedure Note Radiology, Radiologist, - 12/09/2023 [place] [address] Nuclear Medicine Report Signed Patient: JARON MCARTHUR AMR#: [id number] : 1945cct:[id number] Age/Sex: 78 / MADM Date: 12/09/23 Loc: [place] Attending Dr: Natasha Campo M.D. Ordering Physician: Natasha Campo M.D. Date of Service: 12/09/23 Procedure(s): NM tone perf SPECT rest str Accession Number(s): [id number] cc: Marisol Boyce WARP DYEING TENDER; Natasha Campo M.D. Patient Name: JARON MCARTHUR MR#: [id number] : 1945 Exam Date: 12/09/2023 Ordering Doctor: DR Natasha Campo M.D. RADIOLOGY REPORT PROCEDURE: NM TONE PERF SPECT REST STR COMPARISON: OK TONE PERF SPECT REST STR, 01/12/2023. 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 NAGY . For more detailsplease see separate cardiac stress test report. FINDINGS: QUALITY OF STUDY: PERFUSION DEFECT: LOCATION: Basal inferior. Mid-inferior. [place]. SIZE: Medium (3-4 segments). SEVERITY: Moderate. TYPE: Persistent. WALL MOTION: Mild hypokinesis: LV SIZE: Enlarged; EDV 135 mL. TID / TCD: None; 1.1 LVEF: Abnormal. Calculated EF 49%. SUMMARY: Myocardial perfusion imaging study has ABNORMAL findings. CONCLUSION: 1. Fixed defect inferior wall, RCA distribution with no redistribution to suggest reversible ischemia 2. Large left ventricle, EDV 135 milliliters 3. Low left ventricular ejection fraction of 49% 4. Pending exercise test results Dictated by: James Sorto MD on 12/09/2023 at 14:50 Approved by: James Sorto MD on 12/09/2023 at 14:53 Dictated By: James Sorto M.D. Signed By:12/09/23 1454 DD/ 1453 TD/TT: Hand Mixer: us Generic External Data Provider [facility] Final Result documented in this encounter Visit Diagnoses Not on filedocumented in this encounter Additional Health Concerns Assessment Noted Time PHQ-9 Depression Total Score: 1 06/07/19 24 10:36 AM EDT documented as of this encounter Care Teams Match Marker Relationship Specialty Start Date End Date Prabhjot Roman MD [address] [place] [address] PCP - General Family Medicine 06/07/23 Marisol Boyce NP [address] [place] [address] PCP - ACO Reach 05/04/24 Marisol Boyce NP Nurse Practitioner Family Medicine 03/28/22 Marisol Boyce NP Nurse Practitioner Family Medicine 06/07/23 documented as of this encounter
--- OUTSIDE RECORDS SUMMARY | 2024-11-27 11:19 | XMS_ITS | Encounter Summary ---
Author Organization [facility] Address [address] [place] [address] Care Team Providers Care Cold Rolling Supervisor Name Role Phone Marisol Boyce RESEARCH NURSE PRACTITIONER Unavailable [phone] Prabhjot Roman MD Primary Care Provider [phone] Marisol Boyce NP Unavailable [phone] Marisol Boyce NP Unavailable [phone] Encounter Details Date Type Department Care Team (Late st Contact Info) Description 03/29/2024 Clinisync Result Encounter [facility] External Department Unsolicited [...] How often do you attend chur or buddhist services? More than 4 times per year 06/07/2023 Do you belong to any clubs o r organizations such as buddhism groups, unions, fraternal or athletic groups, or [...] Recorded Patient Health Questionnaire-2 Score 0 06/07/2023 [facility] - Occupational [...] place to sleep or slept in a longterm (including now)? No 06/07/2023 Sex and Gender Information Value Date Recorded Sex Assigned at Not on file Legal Sex Male 6:36 PM EDT Gender Identity Not on file Sexual Orientation Not on file documented as of this encounter Plan of Treatment Not on file documented as of this encounter Procedures Procedure Name Priority Date/Time Associated Diagnosis Comments SEGMENTAL BLOOD PRESSURE 03/29/2024 1:54 PM EST documented in this encounter Results * SEGMENTAL BLOOD PRESSURE (03/29/2024 1:54 PM EST) Anatomical Region Laterality Modality Radiographic Carly ging 03/29/2024 1:54 PM EST Narrative 03/29/2024 1:56 [place] [address] Vein Report Signed Patient: JARON CMARTHUR MR#: [id number] : 1945 Acct:[id number] Age/Sex: 78 / M ADM Date: 03/29/24 Loc: VC Attending Dr: Jing Carter M.D. Ordering Physician: Jing Carter M.D. Date of Service: 03/29/24 Procedure(s): VC SEGMENTAL PRESSURES Accession Number(s): [id number] cc: Marisol Boyce RESEARCH NURSE PRACTITIONER; Jing Carter M.D. The [address] [address] Patient Name: JARON MCARTHUR MRN: [id number] date: 1945 Sex: M Assigned Patient Location: Current Patient Location: VC Accession/Order Number: [id number] Exam Date: 03/29/2024 12:49 Report Date: 03/29/2024 13:54 At the request of: JING CARTER Procedure: VC SEGMENTAL PRESSURES EXAM: VC SEGMENTAL PRESSURES HISTORY: I73.9 COMPARISON: None. FINDINGS: Segmental pressures presented as follows (right, left) in mmHg. Brachial: 151, 152 Upper thigh: 176, 173 Lower thigh: 192, 171 Calf: 168, 199 DPA: 146, 160 TEXTILE MACHINERY SALES REPRESENTATIVE: 161, 157 1st Toe: 155, 127 FADY: 1.06, 1.05 TBI: 1.02, 0.84 The ABIs are Normal The TBI's are Acceptable PVR waveforms: Right leg: Thigh: Normal Above knee: Normal Below knee: Normal Right ankle: Normal Left leg: Thigh: Normal Above knee: Normal Below knee: Normal Right ankle: Normal VEIN/VC SEGMENTAL PRESSURES IMPRESSION: Normal exam Electronically authenticated by: MIGUEL PLASCENCIA Date: 03/29/2024 13:54 Dictated By: Miguel Plascencia M.D. Signed By: 03/29/24 1356 DD/ 1354 TD/TT: Process Cheese Cooker: Procedure Note Radiology, Radiologist, MD - 03/29/2024 [facility] [place] [id number] Vein Report Signed Patient: JARON MCARHTUR AMR#: [id number] : 1945cct:[id number] Age/Sex: 78 / MADM Date: 03/29/24 Loc: VC Attending Dr: Jing Carter M.D. Ordering Physician: Jing Carter M.D. Date of Service: 03/29/24 Procedure(s): VC SEGMENTAL PRESSURES Accession Number(s): [id number] cc: Marisol Boyce RESEARCH NURSE PRACTITIONER; Jing Carter M.D. [facility] [place] [id number] Patient Name: JARON MCARTHUR MRN: [id number] date: 1945 Sex: M Assigned Patient Location: VC Current Patient Location: Accession/Order Number: [id number] Exam Date: 03/29/2024 12:49 Report Date: 03/29/2024 13:54 At the request of: JING CARTER Procedure: VC SEGMENTAL PRESSURES EXAM: VC SEGMENTAL PRESSURES HISTORY: I73.9 COMPARISON: None. FINDINGS: Segmental pressures presented as follows (right, left) in mmHg. Brachial: 151, 152 Upper thigh: 176, 173 Lower thigh: 192, 171 Calf: 168, 199 DPA: 146, 160 TEXTILE MACHINERY SALES REPRESENTATIVE: 161, 157 1st Toe: 155, 127 FADY: 1.06, 1.05 TBI: 1.02, 0.84 The ABIs are Normal The TBI's are Acceptable PVR waveforms: Right leg: Thigh: Normal Above knee: Normal Below knee: Normal Right ankle: Normal Left leg: Thigh: Normal Above knee: Normal Below knee: Normal Right ankle: Normal VEIN/VC SEGMENTAL PRESSURES IMPRESSION: Normal exam Electronically authenticated by: MIGUEL PLASCENCIA Date: 03/29/2024 13:54 Dictated By: Miguel Plascencia M.D. Signed By:03/29/24 1356 DD/ 1354 TD/TT: Process Cheese Cooker: us Generic External Data Provider IMG XR PROCEDURES Final Result documented in this encounter Visit Diagnoses Not on filedocumented in this encounter Additional Health Concerns Assessment Noted Time PHQ-9 Depression Total Score: 1 06/07/19 24 10:36 AM EDT documented as of this encounter Care Teams Cold Rolling Supervisor Relationship Specialty Start Date End Date Prabhjot Roman MD [address] [place] [address] PCP - General Family Medicine 06/07/23 Marisol Boyce NP [address] [place] [address] PCP - ACO Reach 05/04/24 Marisol Boyce NP Nurse Practitioner Family Medicine 03/28/22 Marisol Boyce NP Nurse Practitioner Family Medicine 06/07/23 documented as of this encounter
--- OUTSIDE RECORDS SUMMARY | 2024-11-27 11:19 | XMS_ITS | Encounter Summary ---
Author Organization [facility] Address [id number] [address] [place] [address] Care Team Providers Care Relief Driller Name Role Phone Marisol Boyce APRN-X RAY TECH Primary Care Provider Encounter Details Date Type Department Care Team (Late st Contact Info) Description 08/28/2020 Orders Only [facility] [address] [place] [address] Ref Prov, [place] [address] Social History Tobacco Use Types Packs/Day Years Used Date Smoking Tobacco: Every Day Cigarettes Smokeless Tobacco: Never Alcohol Use Standard Drinks/Week Comments Yes 0 (1 standard drink = 0.6 oz pur e alcohol) rare Childcare Answer Date Recorded Childcare Unknown 09/06/2018 Employment Answer Date Recorded Employment Unknown 09/06/2018 Purpose - Life Answer Date Recorded Purpose and direction in life Unknown Sex and Gender Information Value Date Recorded Sex Assigned at Not on file Legal Sex Male 11:28 AM EDT Gender Identity Not on file Sexual Orientation Not on file COVID-19 Exposure Response Date Recorded In the last month, have you been in contact with someone who was confirmed or suspected to have Coronavirus / COVID-19? No / Unsure 08/26/2020 12:16 PM EDT documented as of this encounter Plan of Treatment Not on file documented as of this encounter Procedures Procedure Name Priority Date/Time Associated Diagnosis Comments MR THORACIC SPINE WO CONT Routine 08/12/2020 MR LUMBAR SPINE WO CONT Routine 08/12/2020 documented in this encounter Results * MR thoracic spine without contrast (08/12/2020) Anatomical Region Laterality Modality MSK, Neuro, Spine, T-spine, Spine Covera N/A Magnetic Resonance us Not In System Ref Prov IMG MRI ORDERABLES Final Result * MR lumbar without contrast (08/12/2020) Anatomical Region Laterality Modality MSK, Neuro, Spine, L-spine, Spine Covera N/A Magnetic Resonance us Not In System Ref Prov IMG MRI ORDERABLES Final Result documented in this encounter Visit Diagnoses Not on filedocumented in this encounter Care Teams Relief Driller Relationship Specialty Start Date End Date Marisol Boyce APRN-X RAY TECH PCP - General Nurse Practitioner 10/16/18 documented as of this encounter
--- OUTSIDE RECORDS SUMMARY | 2024-11-27 11:19 | XMS_ITS | Encounter Summary ---
Author Organization [facility] Address [address] [place] [facility] [place] [address] Care Team Providers Care Psychologist Name Role Phone Marisol Boyce NP Unavailable [phone] Prabhjot Roman MD Primary Care Provider [phone] Marisol Boyce NP Unavailable [phone] Marisol Boyce NP Unavailable [phone] Encounter Details Date Type Department Care Team (Late st Contact Info) Description 10/11/2023 Orders Only [facility] [address] [place] [address] Marisol Boyce NP [address] [place] [address] Social History Tobacco Use Types Packs/Day Years [...] week 06/07/2023 How often do you attend [facility] or tenriism services? More than 4 times per year 06/07/2023 Do you belong to any clubs o r organizations such as holiness groups, unions, fraternal or athletic groups, or [...] Recorded Patient Health Questionnaire-2 Score 0 06/07/2023 [facility] - Occupational [...] place to sleep or slept in a chcf (including now)? No 06/07/2023 Sex and Gender Information Value Date Recorded Sex Assigned at Not on file Legal Sex Male 6:36 PM EDT Gender Identity Not on file Sexual Orientation Not on file documented as of this encounter Plan of Treatment Not on file documented as of this encounter Procedures Procedure Name Priority Date/Time Associated Diagnosis Comments X RAY : CHEST 2V Routine 10/11/2023 1:13 PM EDT documented in this encounter Results * X RAY : CHEST 2V (10/11/2023 1:13 PM EDT) Anatomical Region Laterality Modality Radiographic Carly ging us Marisol Boyce INSTRUCTIONAL COACH IMG XR PROCEDURES Final Result documented in this encounter Visit Diagnoses Not on filedocumented in this encounter Additional Health Concerns Assessment Noted Time PHQ-9 Depression Total Score: 1 06/07/19 10:36 AM EDT documented as of this encounter Care Teams Psychologist Relationship Specialty Start Date End Date Prabhjot Roman MD [address] [place] [address] PCP - General Family Medicine 06/07/23 Marisol Boyce NP [address] [facility] [place] [address] PCP - ACO Reach 05/04/24 Marisol Boyce NP Nurse Practitioner Family Medicine 03/28/22 Marisol Boyce NP Nurse Practitioner Family Medicine 06/07/23 documented as of this encounter
--- OUTSIDE RECORDS SUMMARY | 2024-11-27 11:19 | XMS_ITS | Encounter Summary ---
Author Organization [facility] Address [address] [place] [address] Care Team Providers Care Environmental Emergencies Planner Name Role Phone Marisol Boyce MD Primary Care Provider [phone] Reason for Visit * Reason Comments Med Refill Encounter Details Date Type Department Care Team (Late st Contact Info) Description 03/21/2022 Refill [facility] [address] [place] [address] Itzel Portillo, LOGISTICS TECHNICIAN [address] [place] [address] Coronary artery disease due to lipid rich plaque Social History Tobacco Use Types Packs/Day Years Used Date Smoking Tobacco: Never Assessed Sex and Gender Information Value Date Recorded Sex Assigned at Male 10/03/2024 10:56 AM EDT Legal Sex Male 10:16 PM EDT Gender Identity Male 10/03/2024 10:56 AM EDT Sexual Orientation Heterosexual or Straight 11/2024 10:56 AM EDT COVID-19 Exposure Response Date Recorded In the last 10 days, have yo u been in contact with someone who was confirmed or suspected to have Coronavirus/COVID-19? No / Unsure 03/03/2022 8:34 AM EST documented as of this encounter Plan of Treatment Upcoming Encounters Date Type Department Care Team (Late st Contact Info) Description 12/24/2024 11:00 AM EDT Office Visit [facility] [address] [place] [address] Natasha Campo MD [address] [facility] [place] [address] documented as of this encounter Visit Diagnoses Diagnosis Coronary artery disease due to lipid rich plaque documented in this encounter Care Teams Environmental Emergencies Planner Relationship Specialty Start Date End Date Marisol Boyce MD [address] [place], [place] [id number] PCP - General 04/29/22 documented as of this encounter
--- OUTSIDE RECORDS SUMMARY | 2024-11-27 11:19 | XMS_ITS | Clinical Summary ---
Author Organization [facility] Address [address] [place] [address] Phone Care Team Providers Care Naval Marine Engineer Name Role Phone Unavailable Primary Care Provider Unavailabl e Social History Tobacco Use Types Packs/Day Years Used Date Smoking Tobacco: Never Assessed Sex and Gender Information Value Date Recorded Sex Assigned at Not on file Legal Sex Male 11:59 AM EST Gender Identity Not on file Sexual Orientation Not on file Plan of Treatment Not on file
--- OUTSIDE RECORDS SUMMARY | 2024-11-27 11:19 | XMS_ITS | Encounter Summary ---
Author Organization [facility] Address [address] [facility] [address] Care Team Providers Care Biofuels Plant Manager Name Role Phone Marisol Boyce NP Unavailable [phone] Prabhjot Roman MD Primary Care Provider [phone] Marisol Boyce NP Unavailable [phone] Marisol Boyce NP Unavailable [phone] Encounter Details Date Type Department Care Team (Late st Contact Info) Description 10/03/2023 Orders Only [facility] [address] [place] [address] Marisol Boyce NP [address] [place] [address] Social History Tobacco Use Types Packs/Day Years [...] week 06/07/2023 How often do you attend [facility] or advent services? More than 4 times per year [...] Recorded Patient Health Questionnaire-2 Score 0 06/07/2023 [facility] - Occupational [...] Date/Time Associated Diagnosis Comments SCANNED LABS Routine 10/03/2023 9:54 AM EDT documented in this encounter Results * SCANNED LABS (10/03/2023 9:54 AM EDT) Marisol Boyce NP LAB CHG PERFORMABLES Final Resu lt documented in this encounter Visit Diagnoses Not on filedocumented in this encounter Additional Health Concerns Assessment Noted Time PHQ-9 Depression Total Score: 1 06/07/19 10:36 AM EDT documented as of this encounter Care Teams Biofuels Plant Manager Relationship Specialty Start Date End Date Prabhjot Roman MD [address] [place] [address] PCP - General Family Medicine 06/07/23 Marisol Boyce NP [address] [place] [address] PCP - ACO Reach 05/04/24 Marisol Boyce NP Nurse Practitioner Family Medicine 03/28/22 Marisol Boyce NP Nurse Practitioner Family Medicine 06/07/23 documented as of this encounter
--- OUTSIDE RECORDS SUMMARY | 2024-11-27 11:19 | XMS_ITS | Encounter Summary ---
Author Organization [facility] Address [id number] [address] 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; Encounter for colonoscopy due to history of colonic polyp Social History Tobacco Use Types Packs/Day Years Used Date Smoking Tobacco: Every Day Cigarettes Last attempted to quit: 2020 Smokeless Tobacco: Never Comments:Pack every 3 weeks as of 04/04/24 Alcohol Use Standard Drinks/Week Comments Not Currently 0 (1 standard drink = 0.6 oz pur e alcohol) rare Childcare Answer Date Recorded Childcare Unknown 09/06/2018 Employment Answer Date Recorded Employment Unknown 09/06/2018 Hunger Screening Answer Date Recorded Within the past 12 months we worried whether our food would run out before we got money to buy more. Never True 04/04/2024 Within the past 12 months th e food we bought just didn't last and we didn't have money to get more. 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 COLONOSCOPY Routine 04/11/2024 Encounter for colonoscopy due to history of colonic polyp SURGICAL PATHOLOGY Routine 04/11/2024 documented in this encounter Results * Colonoscopy (04/11/2024) us Marlin Koch APRN-CLAY MACHINE OPERATOR GI PROCEDURE ORDERABL ES Final Result MANUALLY TRANSCRIBED RESULTS * EGD (04/11/2024) us Marlin Koch APRN-CLAY MACHINE OPERATOR GI PROCEDURE ORDERABL ES Final Result Performing Organization Address [facility]/ZIP Co de Phone Number MANUALLY TRANSCRIBED RESULTS * Surgical Pathology (04/11/2024) us Not In System Ref Prov PATHOLOGY/CYTOLOGY ORDERA BLES Edited Result - Final MANUALLY TRANSCRIBED RESULTS documented in this encounter Visit Diagnoses Diagnosis ERRONEOUS ENCOUNTER--DISREGARD- Primary 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
--- OUTSIDE RECORDS SUMMARY | 2024-11-27 11:19 | XMS_ITS | Encounter Summary ---
Author Organization [facility] Address [address] [facility] [place] [address] Care Team Providers Care Hcc Coders Name Role Phone Marisol Boyce NP Unavailable [phone] Prabhjot Roman MD Primary Care Provider [phone] Marisol Boyce NP Unavailable [phone] Marisol Boyce NP Unavailable [phone] Encounter Details Date Type Department Care Team (Late st Contact Info) Description 01/11/2024 External Result Encounter [facility] [address] [place] [address] Marisol Boyce NP [address] [place] [address] Social History Tobacco Use Types Packs/Day Years [...] week 06/07/2023 How often do you attend [facility] or temple services? More than 4 times per year 06/07/2023 Do you belong to any clubs o r organizations such as taoist groups, unions, fraternal or athletic groups, or [...] Recorded Patient Health Questionnaire-2 Score 0 06/07/2023 [facility] - Occupational [...] place to sleep or slept in a fpc (including now)? No 06/07/2023 Sex and Gender Information Value Date Recorded Sex Assigned at Not on file Legal Sex Male 6:36 PM EDT Gender Identity Not on file Sexual Orientation Not on file documented as of this encounter Plan of Treatment Not on file documented as of this encounter Procedures Procedure Name Priority Date/Time Associated Diagnosis Comments XR THORACIC SPINE 3 VIEWS 01/11/2024 4:28 PM EDT documented in this encounter Results * XR thoracic spine 3 views (01/11/2024 4:28 PM EDT) Anatomical Region Laterality Modality Spine, T-spine Radiographic Carly ging 01/11/2024 4:28 PM EDT Narrative 01/11/2024 4:27 PM EDT THIS EXAM WAS PERFORMED AT [employer] XR SPINE THORACIC 3 VWS: 01/11/2024 PROVIDED HISTORY: * 78 years old Male * Chronic thoracic back pain, unspecified back pain laterality COMPARISON: Chest radiograph 10/11/2023 TECHNIQUE: Five views of the thoracic spine were obtained. FINDINGS: No evidence of acute fracture or dislocation. Multilevel degenerative changes throughout the thoracic and partially visualized cervical spine. Course interstitial pulmonary markings partially visualized lungs. IMPRESSION: No acute osseus process. Multilevel degenerative changes. Finalized by Jami Ko MD on 01/11/2024 4:27 PM Procedure Note Radiology, Radiologist, MD - 01/11/2024 THIS EXAM WAS PERFORMED AT [facility] SPINE THORACIC 3 VWS: 01/11/2024 PROVIDED HISTORY: * 78 years old Male * Chronic thoracic back pain, unspecified back pain laterality COMPARISON: Chest radiograph 10/11/2023 TECHNIQUE: Five views of the thoracic spine were obtained. FINDINGS: No evidence of acute fracture or dislocation. Multilevel degenerative changes throughout the thoracic and partiallyvisualized cervical spine. Course interstitial pulmonary markings partially visualized lungs. IMPRESSION: No acute osseus process. Multilevel degenerative changes. Finalized by Jami Ko MD on 01/11/2024 4:27 PM Marisol Boyce NP IMG XR PROCEDURES Final Result documented in this encounter Visit Diagnoses Not on filedocumented in this encounter Additional Health Concerns Assessment Noted Time PHQ-9 Depression Total Score: 1 06/07/19 24 10:36 AM EDT documented as of this encounter Care Teams Hcc Coders Relationship Specialty Start Date End Date Prabhjot Roman MD [address] [place] [address] PCP - General Family Medicine 06/07/23 Marisol Boyce NP [address] [place] [address] PCP - ACO Reach 05/04/24 Marisol Boyce NP Nurse Practitioner Family Medicine 03/28/22 Marisol Boyce NP Nurse Practitioner Family Medicine 06/07/23 documented as of this encounter
--- OUTSIDE RECORDS SUMMARY | 2024-11-27 11:19 | XMS_ITS | Encounter Summary ---
Author Organization [facility] Address [address] [place] [facility] [place] [address] Care Team Providers Care Surgical Appliance Fitter Name Role Phone Marisol Boyce NP Unavailable [phone] Prabhjot Roman MD Primary Care Provider [phone] Marisol Boyce NP Unavailable [phone] Marisol Boyce NP Unavailable [phone] Encounter Details Date Type Department Care Team (Late st Contact Info) Description 04/11/2024 Orders Only [facility] [address] [place] [address] Marisol Boyce NP [address] [place] [address] Social History Tobacco Use Types Packs/Day Years [...] week 06/07/2023 How often do you attend [facility] or sikh services? More than 4 times per year 06/07/2023 Do you belong to any clubs o r organizations such as oriental orthodox groups, unions, fraternal or athletic groups, or [...] Patient Health Questionnaire-2 Score 0 06/07/2023 [facility] - Occupational [...] documented as of this encounter Care Teams Surgical Appliance Fitter Relationship Specialty Start Date End Date Prabhjot Roman MD [address] [place] [address] PCP - General Family Medicine 06/07/23 Marisol Boyce NP [address] [place] [address] PCP - ACO Reach 05/04/24 Marisol Boyce NP Nurse Practitioner Family Medicine 03/28/22 Marisol Boyce NP Nurse Practitioner Family Medicine 06/07/23 documented as of this encounter
--- OUTSIDE RECORDS SUMMARY | 2024-11-27 11:19 | XMS_ITS | Encounter Summary ---
Author Organization [facility] Address [address] [place] [address] Care Team Providers Care Production Stage Manager Name Role Phone Marisol Boyce MD Primary Care Provider Encounter Details Date Type Department Care Team (Late st Contact Info) Description 11/21/2024 Orders Only [facility] [place] [facility] [address] [place] [address] ProviderJosephine MD [address] [place] [id number] Social History Tobacco Use Types Packs/Day Years Used Date Smoking Tobacco: Former Cigarettes Q uit: 2020 Passive Smoke Exposure: Past Smokeless Tobacco: Never Passive Exposure Comments:As a kid Alcohol Use Standard Drinks/Week Comments Yes 0 (1 standard drink = 0.6 oz pur e alcohol) occasional C Utilities Answer Date Recorded In the past 12 months has [facility] [email or web address], gas, oil, or water [employer] threatened to shut off services in your home? No 11/10/2023 Humiliation, Afraid, Rape, and Kick questionnair e Answer Date Recorded Within the last year, have y ou been afraid of your partner or ex-partner? No 11/10/2023 Within the last year, have y ou been humiliated or emotionally abused in other ways by your partner or ex-partner? No Within the last year, have y ou been kicked, hit, slapped, or otherwise physically hurt by your partner or ex-partner? No 11/10/2023 Within the last year, have y ou been raped or forced to have any kind of sexual activity by your partner or ex-partner? No 11/10/2023 Overall Financial Resource Strain (CARDIA) Answe r Date Recorded How hard is it for you to pa y for the very basics like food, housing, medical care, and heating? Not hard at all 11/10/2023 PHQ-2 Answer Date Recorded Patient Health Questionnaire-2 Score 0 11/10/2023 Transportation Answer Date Recorded In the past 12 months, has l ack of transportation kept you from medical appointments or from getting medications? No 11/10/2023 Lack of Transportation (Non-Medical) Not on file 11/10/2023 Housing Stability Vital Sign Answer Jasper e Recorded Unable to Pay for Housing in the Last Year Not o n file 11/10/2023 Number of Places Lived in the Last Year Not on f ile 11/10/2023 In the last 12 months, was t here a time when you did not have a steady place to sleep or slept in a prison (including now)? No 11/10/2023 Hunger Vital Sign Answer Date Recorded Within the past 12 months, y ou worried that your food would run out before you got the money to buy more. Never true 11/10/19 24 Ran Out of Food in the Last Year Not on file 11/10/2023 Sex and Gender Information Value Date Recorded Sex Assigned at Male 10/03/2024 10:56 AM EDT Legal Sex Male 10:16 PM EDT Gender Identity Male 10/03/2024 10:56 AM EDT Sexual Orientation Heterosexual or Straight 11/2024 10:56 AM EDT documented as of this encounter Plan of Treatment Upcoming Encounters Date Type Department Care Team (Late st Contact Info) Description 12/24/2024 11:00 AM EDT Office Visit [facility] [place] [facility] [address] [place] [address] Natasha Campo MD [address] [facility] [place] [place] [address] documented as of this encounter Procedures Procedure Name Priority Date/Time Associated Diagnosis Comments CARDIAC EVENT MONITOR Routine 11/07/2024 9:48 AM EDT documented in this encounter Results * Cardiac event monitor (11/07/2024 9:48 AM EDT) Anatomical Region Laterality Modality Other us Historical Provider [facility] MRALA RADER Final Result documented in this encounter Visit Diagnoses Not on filedocumented in this encounter Care Teams Production Stage Manager Relationship Specialty Start Date End Date Marisol Boyce MD [facility] [place] [address] PCP - General 04/29/22 documented as of this encounter
--- OUTSIDE RECORDS SUMMARY | 2024-11-27 11:19 | XMS_ITS | Encounter Summary ---
Author Organization [facility] Address [address] [facility] [place] [address] Care Team Providers Care Educational Manager Name Role Phone Marisol Boyce NP Unavailable [phone] Prabhjot Roman MD Primary Care Provider [phone] Marisol Boyce NP Unavailable [phone] Marisol Boyce NP Unavailable [phone] Encounter Details Date Type Department Care Team (Late st Contact Info) Description 10/11/2023 External Result Encounter [facility] [address] [place] [address] Marisol Boyce NP [address] [place] [address] Social History Tobacco Use Types Packs/Day Years [...] week 06/07/2023 How often do you attend [facility] or sabianism services? More than 4 times per year [...] Recorded Patient Health Questionnaire-2 Score 0 06/07/2023 [facility] - [...] Name Priority Date/Time Associated Diagnosis Comments XR CHEST 2 VIEWS STAT 10/11/2023 12:1 8 PM EDT documented in this encounter Results * XR chest 2 views (10/11/2023 12:18 PM EDT) Anatomical Region Laterality Modality Chest Radiographic Carly ging 10/11/2023 12:1 8 PM EDT Narrative 10/11/2023 12:16 PM EDT THIS EXAM WAS PERFORMED AT [facility] XR CHEST 2 VWS INDICATION: Acute cough [...] airways disease/bronchitis. Difficult to exclude acute superimposed infectious/inflammatory pneumonitis; CT correlation may be prudent Finalized by Sabino Valentin MD on 10/11/2023 12:16 PM Procedure Note Radiology, Radiologist, - 10/11/2023 THIS EXAM WAS PERFORMED AT [facility] XR CHEST 2 VWS INDICATION: Acute cough COMPARISON: 05/13/2022 FINDINGS: Stable cardiomediastinal silhouette. Atherosclerotic aorta. Patchyinterstitial opacities appear slightly increased in the right infrahilarregion, left lung base. Trace effusions with hyperinflation.Degenerative changes of the spine and shoulders. IMPRESSION: Hyperinflation with coarsened interstitial markings which appear slightlyincreased from prior. Probable trace effusions. Correlate with any smallairways disease/bronchitis. Difficult to exclude acute superimposedinfectious/inflammatory pneumonitis; CT correlation may be prudent Finalized by Sabino Valentin MD on 10/11/2023 12:16 PM Marisol Boyce EDI ANALYST IMG XR PROCEDURES Final Result documented in this encounter Visit Diagnoses Not on filedocumented in this encounter Additional Health Concerns Assessment Noted Time PHQ-9 Depression Total Score: 1 06/07/19 24 10:36 AM EDT documented as of this encounter Care Teams Educational Manager Relationship Specialty Start Date End Date Prabhjot Roman MD [address] [place] [address] PCP - General Family Medicine 06/07/23 Marisol Boyce NP [address] [place] [address] PCP - ACO Reach 05/04/24 Marisol Boyce NP Nurse Practitioner Family Medicine 03/28/22 Marisol Boyce NP Nurse Practitioner Family Medicine 06/07/23 documented as of this encounter
--- OUTSIDE RECORDS SUMMARY | 2024-11-27 11:19 | XMS_ITS | Encounter Summary ---
Author Organization [employer] Address [id number] [address] [place] [address] Care Team Providers Care Vocational Rehabilitation Specialist Name Role Phone Marisol Boyce ANTIQUE FURNITURE REPAIRER-FOOD AND DRUG INSPECTOR Primary Care Provider Reason for Visit * Reason Comments Med Refill Encounter Details Date Type Department Care Team ([facility] Contact Info) Description 06/18/2024 Refill [facility] [address] [phone] Sabino Mauricio DO [address] [place] [address] Social History Tobacco Use Types Packs/Day Years [...] on filedocumented in this encounter Care Teams Vocational Rehabilitation Specialist Relationship Specialty Start Date End Date Marisol Boyce, ANTIQUE FURNITURE REPAIRER-FOOD AND DRUG INSPECTOR PCP - General Nurse Practitioner 10/16/18 documented as of this encounter
--- OUTSIDE RECORDS SUMMARY | 2024-11-27 11:19 | XMS_ITS | Encounter Summary ---
Author Organization [facility] Address [address] [place] [address] Care Team Providers Care Marsh Buggy Operator Name Role Phone Marisol Boyce MD Primary Care Provider [phone] Encounter Details Date Type Department Care Team (Late st Contact Info) Description 11/27/[address] [facility] [address] [place] [address] Joan Rooney MA Social History Tobacco Use Types Packs/Day Years Used Date Smoking Tobacco: Former Cigarettes Q uit: 2020 Passive Smoke Exposure: Past Smokeless Tobacco: Never Passive Exposure Comments:As a kid Alcohol Use Standard Drinks/Week Comments Yes 0 (1 standard drink = 0.6 oz pur e alcohol) occasional [facility] Utilities Answer Date Recorded In the past 12 months has e electric, gas, oil, or water [employer] threatened to shut off services in your [...] place to sleep or slept in a penitentiary (including now)? No 11/10/2023 Hunger Vital Sign [...] AM EDT documented as of this encounter Miscellaneous Notes * Telephone Encounter - Joan Rooney MA - 11/27/2024 10:15 AM EDT Patient's called stating Rush is very lightheaded and tired. She said she's scared to leave himalone in fear she'll come home and find him . Says his BP is always very low, around 70's/40's.I told her he needs taken to the ED for evaluation. Dr. Campo is not in the [place] office for another 4 weeks, and Rush is already scheduled that day with him. Vianney thanked me for the advice and agreed to take him to the ED. I asked her to call me with updates and I would contact Dr. Campo if needed. She verbalized understanding. documented in this encounter Plan of Treatment Upcoming Encounters Date Type Department Care Team (Late st Contact Info) Description 12/24/2024 11:00 AM EDT Office Visit [facility] [address] [place] [address] Natasha Campo MD [address] [facility] [address] [facility] [place] [address] documented as of this encounter Visit Diagnoses Not on filedocumented in this encounter Care Teams Marsh Buggy Operator Relationship Specialty Start Date End Date Marisol Boyce MD [address] [place] [address] PCP - General 04/29/22 documented as of this encounter
--- OUTSIDE RECORDS SUMMARY | 2024-11-27 11:19 | XMS_ITS | Clinical Summary ---
Author Organization [facility] Address [address] [place] [address] Care Team Providers Care Receptionist Scheduler Name Role Phone Marisol Boyce MD Primary Care Provider [phone] Allergies No known active allergies Medications tamsulosin (Flomax) 0.4 mg 24 hr capsule Take 0.4 mg by mouth in the morning. Active dapagliflozin propanediol (Farxiga) 10 mg Take 10 mg by mouth in the morning. Active amLODIPine (Norvasc) 5 mg tabletIndications:Prima ry hypertension Take 1 tablet (5 mg) by mouth in the morning for 99 doses. 30 tablet 3 Active Additional Information Patient not taking.Reported on 10/09/2024 insulin detemir (Levemir FlexPen) 100 unit/mL (3 mL) injection penIndications:Type 2 diabetes mellitus without complication, with long-term current use of insulin ([facility]) Inject 20 Units under the skin at bedtime. 6 mL Active atorvastatin (Lipitor) 80 mg tabletIndications:Coron ac artery disease due to lipid rich plaque Take 1 tablet (80 mg) by mouth at bedtime. 90 tablet 3 024 2024 Active lisinopril 5 mg tabletIndications:Essen tial hypertension Take 1 tablet (5 mg) by mouth in the morning. 90 tablet 3 024 2024 Active Additional Information Patient not taking.Reported on 10/09/2024 apixaban (Eliquis) 5 mg tabletIndications:A-fib (CMS/HCC) Take 1 tablet (5 mg) by mouth two times daily. 180 tablet 3 024 2024 Active aspirin 81 mg EC tablet Take 81 mg by mouth in the morning. Active Basaglar KwikPen U-100 Insulin 100 unit/mL (3 mL) injection pen ADMINISTER UP TO 50 UNITS UNDER THE SKIN DAILY Active lisinopril 20 mg tabletIndications:Prima ry hypertension Take 1 tablet (20 mg) by mouth in the morning. 90 tablet 3 025 2025 Active carvedilol (Coreg) 3.125 mg tabletIndications:Prima ry hypertension Take 1 tablet (3.125 mg) by mouth with breakfast and with evening meal. 180 tablet 3 025 2025 Active amiodarone (Pacerone) 200 mg tabletIndications:A-fib (CMS/HCC) Take 1 tablet (200 mg) by mouth with breakfast for 180 doses. 90 tablet 2 Active rivaroxaban (Xarelto) 20 mg tabletIndications:Persi stent atrial fibrillation (CMS/HCC) Take 1 tablet (20 mg) by mouth daily with evening meal. Take with food. 90 tablet 3 Active ezetimibe (Zetia) 10 mg tabletIndications:Pure hypercholesterolemia Take 1 tablet (10 mg) by mouth at bedtime. 90 tablet 3 025 2025 Active ezetimibe (Zetia) 10 mg tabletIndications:Pure hypercholesterolemia Take 1 tablet (10 mg) by mouth at bedtime. 30 tablet 11 024 2024 Discontin ued(Reord er) metFORMIN (Glucophage) 500 mg tablet Take 500 mg by mouth with breakfast and with evening meal. 025 2024 Active Problems Problem Noted Date Diagnosed Date Centrilobular emphysema 05/15/2024 Primary insomnia 05/15/2024 Type 2 diabetes mellitus wit h diabetic peripheral angiopathy without gangrene 05/15/2024 Hiatal hernia 04/11/2024 Overview (10/09/2024): Noted on EGD 04/11/24 Chronic thoracic back pain 01/04/2024 Other thrombophilia 11/22/2023 Left ventricular thrombus 11/10/2023 Pseudoaneurysm of left ventricle of heart 2023 Acute cough 10/11/2023 Overview (11/22/2023): Last Assessment & Plan: Will check xray, no s/s heart failure Will order health trax testing, but suspect more related to colleen inhibitor change from ramipril to lisinopril If worsening contact office Other specified hypothyroidism 10/04/2023 A-fib 09/30/2023 NSTEMI (non-ST elevated myocardial infarction) 0 09/30/2023 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 Overview (11/22/2023): Last Assessment & Plan: Will need to have repeat EGD, discussed that today, will wait and revisit in August appt d/t 's medical issues going on BPH (benign prostatic hyperplasia) 06/07/2023 Overview (11/22/2023): Last Assessment & Plan: Has upcoming appt with urology Cervical spinal stenosis 06/07/2023 Encounter for subsequent erich ual wellness visit (AWV) in Medicare patient 06/07/2023 Overview (11/22/2023): Last Assessment & Plan: Reviewed Ht/Wt/BMI Recommend eye exam yearly Recommend dental exams twice a year Balance work/leisure activities Exercises is recommended most days of the week (appropriate as chronic conditions allow) Follow up yearly and prn Also gave info on advanced directives as well Erectile dysfunction 06/07/2023 Hyperlipidemia 06/07/2023 Overview (11/22/2023): Last Assessment & Plan: Continue statin CORNELIA (obstructive sleep apnea) 06/07/2023 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 WESTLEY (iron deficiency anemia) 04/11/2023 Overview (04/18/2023): Last Assessment & Plan: Check labs Lumbosacral pain 04/11/2023 04/18/2023 Overview (04/18/2023): Last Assessment & Plan: Follow with pain mgmt in the past, not currently If he decides we can try PT he will let me know Type 2 diabetes mellitus wit hout complication, with long-term current use of insulin 03/22/2023 04/18/2023 Overview (04/18/2023): Last Assessment & Plan: No changes in dose of insulin or [...] diet low in carbohydrates, and simple sugars. 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 Assessment & Plan (06/25/2022 2:42 PM EDT): Coronary artery disease is Stable without any concerning symptom Continue goal-directed medical therapy- Aspirin, Lipitor, Toprol And ramipril Assessment & Plan (04/30/2022 10:29 AM EST): Coronary artery disease is stable Continue ASA, coreg, plavix, ramipril continue risk factor modifications- heart healthy diet, regular exercise as tolerated and continue all medications. Diabetes mellitus 04/30/2022 Disorder of carotid artery 04/30/2022 Overview (06/25/2022): Images from the original note were not included. 04/22/2006 Assessment & Plan (06/25/2022 2:42 PM EDT): Monitored per vascular surgery Dr. Joseph steele 04/30/2022 Primary hypertension 04/30/2022 Assessment & Plan (06/25/2022 2:44 PM EDT): Hypertension is Typically well controlled at home per patient Continue carvedilol, ramipril Assessment & Plan (04/30/2022 10:31 AM EST): Hypertension is 162/74 supine and decreased by 30 points standing to 132/67 Continue all current medications, start to record b/p at home and RTC in 1 month for review. Peripheral arterial occlusive disease 04/30/2022 Assessment & Plan (06/25/2022 2:48 PM EDT): Remained stable continue aspirin, Plavix, Lipitor Tobacco dependence syndrome 04/30/2022 Orthostatic hypotension 04/30/2022 Assessment & Plan (06/25/2022 2:48 PM EDT): No concerns or symptoms since last visit Assessment & Plan (04/30/2022 10:28 AM EST): incresase hydration- typically only drinks coffee and coke Change positions well BALBUENA (dyspnea on exertion) 04/30/2022 Assessment & Plan (06/25/2022 2:48 PM EDT): Remained stable since patient denies of any worsening symptoms we will continue to monitor Assessment & Plan (04/30/2022 12:58 PM EST): Will order echocardiogram to assess cardiac function and Rt sided pressures Post-COVID chronic dyspnea 04/30/2022 Assessment & Plan (06/25/2022 2:49 PM EDT): Currently patient feels well states the symptoms have improved Assessment & Plan (04/30/2022 12:59 PM EST): Referral to pulmonary Ordered PFT to assess pulm function Thoracic spondylosis without myelopathy 01/08/20 Overview (04/30/2022): Added automatically from request for surgery [id number] Lumbosacral spondylosis without myelopathy 09/19 Overview (04/30/2022): Added automatically from request for surgery [id number] Disc displacement, lumbar 06/07/2019 Overview (04/30/2022): Added automatically from request for surgery [id number] Osteoarthritis of left hip 04/05/2019 Overview (04/30/2022): Added automatically from request for surgery [id number] Iliac crest bone pain 01/10/2019 Lumbar neuritis 01/10/2019 Trochanteric bursitis of left hip 11/29/2018 Disorder of sacrum 10/16/2018 Overview (04/30/2022): Added automatically from request for surgery [id number] Encounters Date Type Department Care Team Description 11/27/[address] [address] Joan Rooney MA 11/21/2024 Orders Only [address] [place] [address] Josephine Botello MD 11/02/[address] [place] [address] Erich Valenzuela MA Pure hypercholesterolemia 10/09/2024 10:45 AM EDT Office Visit [address] [place] [address] Natasha Campo MD Dizziness (Primary Dx); Palpitations; Coronary artery disease of port lions artery of [place] lions heart with stable angina pectoris; PAD (peripheral artery disease); Primary hypertension; Paroxysmal atrial fibrillation (CMS/HCC); Essential hypertension 10/09/2024 Orders Only [facility] [address] [place] [address] Toribio, SHAUN Franco Persistent atrial fibrillation (CMS/HCC) (Primary Dx) from Last 3 Months Immunizations Immunization Administration Dates Next Due Covid (Pfizer) Bivalent Emil ter =>12 YRS 03/11/2022 Influenza, High Dose Seasona l, Preservative Free 01/28/2018,01/17/2015 Influenza, High-dose Seasona l, Quadrivalent, Preservative Free 02/12/2022,02/02/2021,11/30/2019 Influenza, seasonal, injectable 03/12/2014,01/10 Influenza, trivalent, adjuvanted 12/29/2018,01/26 Pfizer SARS-CoV-2 Vaccination 08/06/2021 ,01/05/2021,05/21/2020,05/01 Pneumococcal Conjugate PCV 13 11/30/2019 Pneumococcal Polysaccharide PPV23 12/10/2014 Zoster, live 03/12/2014 Family History Medical History Relation Name Comments Cancer Father Diabetes Father Relation Name Status Comments Father Social History Tobacco Use Types Packs/Day Years Used Date Smoking Tobacco: Former Cigarettes Q uit: 2020 Passive Smoke Exposure: Past Smokeless Tobacco: Never Tobacco Cessation:Counseling Given: Not Answered Passive Exposure Comments:As a kid Alcohol Use Standard Drinks/Week Comments Yes 0 (1 standard drink = 0.6 oz pur e alcohol) occasional [employer] Utilities Answer Date Recorded In the past 12 months has e [employer] gas, oil, or water [employer] threatened to shut off services in your [...] place to sleep or slept in a [place] facility (including now)? No 11/10/2023 Hunger Vital Sign [...] Heterosexual or Straight 11/2024 10:56 AM EDT Last Filed Vital Signs Vital Sign Reading Time Taken Comments Blood Pressure 128/60 10/09/2024 10:58 AM EDT Pulse 59 10/09/2024 10:58 AM EDT Temperature 36.6 C (97.9 F) 10/07/2023 11:10 AM EDT Respiratory Rate 18 10/13/2023 10:57 AM EDT Oxygen Saturation 98% 10/09/2024 10:58 AM EDT Inhaled Oxygen Concentration - - Weight 76.2 kg (168 lb) 10/09/2024 10:58 AM EDT Height 182.9 cm (6') 10/09/2024 10:58 AM EDT Body Mass Index 22.78 10/09/2024 10:58 AM EDT Plan of Treatment Upcoming Encounters Date Type Department Care Team (Late st Contact Info) Description 12/24/2024 11:00 AM EDT Office Visit [facility] [address] [place] [address] Natasha Campo MD [address] [address] [facility] [place] [address] Health Maintenance Due Date Last Done Comments Medicare Annual Wellness (AWV) 1945 Diabetes: Retinopathy Screening 1956 Depression Screening 1958 Adult Tetanus 1968 Zoster Vaccines (1 of 2) 1996 03/12/2014 Fall Risk Screening 09/14/2011 Diabetes: Hemoglobin A1C 02/28/2024 024, 10/03/2023, 10/03/2023, Additional history exists Diabetes: Urine Protein Screening 05/04/2024 05/04/2023 COVID-19 Vaccine ( season) 2024 02/09/2024, 04/19/2023, 03/11/2022, Additional history exists Influenza Vaccine (#1) 2024 , 02/15/2023, 01/31/2023, Additional history exists Pneumococcal Vaccine: 50+ Years Completed 02/15/2023, 10/17/2021, 11/30/2019, Additional history exists HIB Vaccines Aged Out No longer eligi ble based on patient's age to complete this topic HPV Vaccines Aged Out No longer eligi ble based on patient's age to complete this topic IPV Vaccines Aged Out No longer eligi ble based on patient's age to complete this topic Meningococcal B Vaccine Aged Out No l onger eligible based on patient's age to complete this topic Meningococcal Vaccine Aged Out No minerva patience eligible based on patient's age to complete this topic Rotavirus Vaccines Aged Out No longer eligible based on patient's age to complete this topic Medical Devices Implanted Type Area Fresh Work Wrapper Layer Device Identifier Shelf Expiration Date Model / Serial / Lot Stent,Synergy Xd Mr [id number] - [id number] - [id number] Implanted:Qty: 1 on 02/28/2023 by Natasha Campo MD at [facility] [employer] [id number] 05/04/2024 [id number] / [id number] / [id number] Procedures Procedure Name Priority Date/Time Associated Diagnosis Comments CARDIAC EVENT MONITOR Routine 11/07/2024 9:48 AM EDT HEMOGLOBIN A1C Add-On 10/03/2023 6:22 AM EDT from Last 3 Months or Most Recently Relevant to Health Maintenance Results * Cardiac event monitor (11/07/2024 9:48 AM EDT) Anatomical Region Laterality Modality Other us Historical Provider [facility] MARLA RADER Final Result * (ABNORMAL) Hemoglobin A1c (10/03/2023 6:22 AM EDT) Hemoglobin A1C 8.5(H) 4.0 - 6.0 % 10/03/2023 12:43 PM EDT [facility] ([facility]) Estimated Average Glucose 197 mg/dL 10/03/2023 12:43 PM EDT [facility] ([facility] Blood Venous blood specimen / Unknown Arterial Line / Unknown 10/03/2023 6:22 AM EDT 10/03/2023 6:32 AM EDT Josh Murphy VENEREAL DISEASE INVESTIGATOR LAB BLOOD ORDERABLES Fi nal Result [facility] ([facility]) [address] [place] [address] from Last 3 Months or Most Recently Relevant to Health Maintenance Insurance [employer] Advance Directives * Full Code (Latest Code Status on File) Date Activated Date Inactivated Comments 09/30/2023 6:16 PM 10/07/2023 3:06 PM * Full Code Date Activated Date Inactivated Comments 02/28/2023 12:54 PM 02/28/2023 8:03 PM Care Teams Receptionist Scheduler Relationship Specialty Start Date End Date Marisol Boyce MD [facility] [place] [address] PCP - General 04/29/22
--- OUTSIDE RECORDS SUMMARY | 2024-11-27 11:19 | XMS_ITS | Clinical Summary ---
Author Organization [employer] Address [id number] [address] [place] [address] Care Team Providers Care Handle Sander Operator Name Role Phone Marisol Boyce APRN-N[employer]S AND B[employer]TS ASSEMBLER Primary Care Provider Allergies No known active allergies Medications aspirin 81 mg Take 1 tablet (81 mg total) by mouth in the morning. Active insulin detemir (LEVEMIR) 100 unit/mL injection Inject under the skin nightly. Active metFORMIN (GLUCOPHAGE) 500 mg tablet Take 1 tablet (500 mg total) by mouth daily with breakfast. Active atorvastatin (LIPITOR) 80 mg tablet atorvastatin 80 mg tablet Active tamsulosin (FLOMAX) 0.4 mg capsule tamsulosin 0.4 mg capsule TAKE 1 CAPSULE BY MOUTH DAILY Active albuterol (PROVENTIL HFA;VENTOLIN HFA) 90 mcg/actuation inhalerIndicati ons:COPD, moderate (CMS-HCC) INHALE 2 PUFFS BY MOUTH EVERY 6 HOURS NEEDED FOR WHEEZING 54 g 1 3 Active amiodarone (PACERONE) 200 mg tablet Take 1 tablet (200 mg total) by mouth in the morning. Active apixaban (ELIQUIS) 5 mg tablet Take by mouth 2 (two) times a day. Active carvediloL (COREG) 3.125 mg tablet Take 1 tablet (3.125 mg total) by mouth in the morning and 1 tablet (3.125 mg total) in the evening. Take with meals. Active ezetimibe (ZETIA) 10 mg tablet Take 1 tablet (10 mg total) by mouth in the morning. Active dapagliflozin propanediol (FARXIGA) 10 mg tablet Take 1 tablet (10 mg total) by mouth in the morning. Active lisinopriL (PRINIVIL,ZESTR IL) 5 mg tablet Take 1 tablet (5 mg total) by mouth in the morning. Active senna (SENOKOT) 8.6 mg tablet Take 1 tablet (8.6 mg total) by mouth in the morning. Active insulin glargine,hum.re c.anlog (BASAGLAR KWIKPEN U-100 INSULIN) 100 unit/mL (3 mL) insulin pen Inject 35 Units under the skin nightly. 4 Active omeprazole (PriLOSEC) 40 mg capsule Take 1 capsule (40 mg total) by mouth in the morning. 30 capsule 1 5 Active Active Problems Problem Noted Date Diagnosed Date COPD, moderate 07/01/2022 Thoracic spondylosis without myelopathy 01/08/20 Overview (01/07/2022): Added automatically from request for surgery [id number] Lumbosacral spondylosis without myelopathy 09/19 Overview (09/20/2019): Added automatically from request for surgery [id number] Disc displacement, lumbar 06/07/2019 Overview (06/07/2019): Added automatically from request for surgery [id number] Osteoarthritis of left hip 04/05/2019 Overview (04/05/2019): Added automatically from request for surgery [id number] Iliac crest bone pain 01/10/2019 Lumbar neuritis 01/10/2019 Trochanteric bursitis of left hip 11/29/2018 Disorder of sacrum 10/16/2018 Overview (10/16/2018): Added automatically from request for surgery [id number] Family History Medical History Relation Name Comments Arthritis Father Diabetes Father Lung cancer Father Diabetes Maternal Grandfather No Known Problems Mother Relation Name Status Comments Father Maternal Grandfather Mother Social History Tobacco Use Types Packs/Day Years Used Date Smoking Tobacco: Every Day Cigarettes Last attempted to quit: 2020 Smokeless Tobacco: Never Tobacco Cessation:Ready to Q uit: Not Asked; Counseling Given: Not Answered Comments:Pack every 3 weeks as of 04/04/24 [...] Sign Reading Time Taken Comments Blood Pressure 131/46 04/04/2024 11:42 AM EST Pulse 64 04/04/2024 11:42 AM EST Temperature 36 C (96.8 F) 04/23/2022 7:46 AM EST Respiratory Rate 16 07/22/2022 8:35 AM EDT Oxygen Saturation 97% 07/22/2022 8:35 AM EDT Inhaled Oxygen Concentration - - Weight 79.6 kg (175 lb 6.4 oz) 04/04/2024 11:42 AM EST Height 182.9 cm (6') 04/04/2024 11:42 AM EST Body Mass Index 23.79 04/04/2024 11:42 AM EST Plan of Treatment Health Maintenance Due Date Last Done Comments Tobacco Counseling 1945 Depression Screening 1958 DTaP,Tdap and Td Vaccines (1 - Tdap) 1965 Abdominal Aortic Aneurysm (A AA) Screen 09/14/2011 Fall Risk Screening 09/14/2011 Zoster (Shingles) Vaccine (2 of 3) 05/07/2014 03/12/2014 COVID-19 Vaccine ( season) 2024 02/09/2024, 04/19/2023, 03/11/2022, Additional history exists Influenza Vaccine 11/26/2024 02/09/2024, , 02/12/2022, Additional history exists Tobacco Screening 04/04/2025 04/04/2024 Colonoscopy 04/11/2029 04/11/2024, 08/03/2018, 10/26/2018, Additional history exists Medical Devices Not on file Procedures Procedure Name Priority Date/Time Associated Diagnosis Comments COLONOSCOPY Routine 04/11/2024 Encounter for colonoscopy due to history of colonic polyp from Last 3 Months or Most Recently Relevant to Health Maintenance Results * Colonoscopy (04/11/2024) us Marlin Koch APRN-NUTS AND BOLTS ASSEMBLER GI PROCEDURE ORDERABL ES Final Result MANUALLY TRANSCRIBED RESULTS from Last 3 Months or Most Recently Relevant to Health Maintenance Insurance [employer] Care Teams Handle Sander Operator Relationship Specialty Start Date End Date Marisol Boyce APRN-CNP PCP - General Nurse Practitioner 10/16/18
--- OUTSIDE RECORDS SUMMARY | 2024-11-27 11:26 | XMS_ITS | CCD ---
Author Organization [facility] Care Team Providers Care Tank Filler Name Role Phone MARISOL BOYCE Primary Care Physician Unavaila ble MEDARDOHHOLTu, MACHINE BOBBIN WINDER MARISOL Admitting Unavailable AICHHOLZ, MACHINE BOBBIN WINDER MARISOL Attending Unavailable AICHHOLZ, MACHINE BOBBIN WINDER MARISOL Primary Care Unavailable AICHHOLZ, MACHINE BOBBIN WINDER MARISOL Consulting Unavailable AICHHOLZ, MACHINE BOBBIN WINDER MARISOL Admitting Unavailable AICHHOLZ, MACHINE BOBBIN WINDER MARISOL Attending Unavailable AICHHOLZ, MACHINE BOBBIN WINDER MARISOL Primary Care Unavailable AICHHOLZ, MACHINE BOBBIN WINDER MARISOL Consulting Unavailable DR ASNJAY REECE Consulting Unavailable ROSEANNA, MARCO Admitting Unavailable ROSEANNA, MARCO Attending Unavailable AICHHOLZ, MACHINE BOBBIN WINDER MARISOL Primary Care Unavailable ROSEANNA, MARCO Consulting Unavailable AICHHOLZ, MACHINE BOBBIN WINDER MARISOL Admitting Unavailable AICHHOLZ, MACHINE BOBBIN WINDER MARISOL Attending Unavailable AICHHOLZ, MACHINE BOBBIN WINDER MARISOL Primary Care Unavailable AICHHOLZ, MACHINE BOBBIN WINDER MARISOL Consulting Unavailable FLOR, DWAIN Admitting Unavailable FLOR, DWAIN Attending Unavailable AICHHOLZ, MACHINE BOBBIN WINDER MARISOL Primary Care Unavailable FLOR, DWAIN Consulting Unavailable Aichholz PRESS BRAKE OPERATOR, Marisol Unavailable Prabhjot Villatoro MD Primary Care Provider MARISOL BOYCE Primary Care Physician Aicmirian PRESS BRAKE OPERATOR, Marisol Unavailable Prabhjot Villatoro MD Primary Care Provider Aichholtu PRESS BRAKE OPERATOR, Marisol Unavailable Carli GROUNDS SUPERVISOR-Marisol GASCA Primary Care Provider YAMILEX ARMSTRONG Referring Unavailable CHINOHOLMARISOL Mae Primary Care Unavailable AICHHOLTu, MARISOL J Referring Unavailable AICHHOLTu, MARISOL J Primary Care Unavailable AICHHOLTu, MARISOL J Referring Unavailable AICHHOLZ, MARISOL J Primary Care Unavailable ELTAHAWY, EHAB A Referring Unavailable AICHHOLTuMARISOL J Primary Care Unavailable ELTAHAWY, EHAB A [...] Care Unavailable ELTAHAWY, EHAB A Referring Unavailable AICHHOLTu, MARISOL J Primary Care Unavailable ELTAHAWY, EHAB A Referring Unavailable AICHHOLTu, MARISOL J Primary Care Unavailable ELTAHAWY, EHAB A Referring Unavailable AICHHOLTu, MARISOL J Primary Care Unavailable ELTAHAWY, EHAB A Referring Unavailable AICHHOLTu, MARISOL J Primary Care Unavailable ELTAHAWY, EHAB A Referring Unavailable AICHHOLTu, MARISOL J Primary Care Unavailable ELTAHAWY, EHAB A Referring Unavailable AICHSINCERE, MARISOL J Primary Care Unavailable ELTAHAWY, EHAB A Referring Unavailable MEDARDOHSINCERE, MARISOL J Primary Care Unavailable MEDARDOHMARISOL POST J Referring Unavailable AICHHOLZ, MARISOL J Primary Care Unavailable ELTAHAWY, EHAB A Referring Unavailable AICHHOLZ, MARISOL J Primary Care Unavailable ELTAHAWY, EHAB A Referring Unavailable AICHHOLZ, MARISOL J Primary Care Unavailable ELTAHAWY, EHAB A Referring Unavailable AICHHOLZ, MARISOL J Primary Care Unavailable ELTAHAWY, EHAB A Referring Unavailable AICHHOLZ, MARISOL J Primary Care Unavailable ELTAHAWY, EHAB A Referring Unavailable AICHHOLTu, MARISOL J Primary Care Unavailable ELTAHAWY, EHAB [...] Care Unavailable ELTAHAWY, EHAB A Referring Unavailable AICHHOLTu, MARISOL J Primary Care Unavailable MARLIN KOCH Attending Unavailable MARISOL BOYCE J Referring Unavailable AICHHOLTu, MARISOL J Primary Care Unavailable MARLIN KOCH Attending Unavailable CARLI, MARISOL J Referring Unavailable AICHHOLZ, MARISOL J Primary Care Unavailable Sabino Mauricio DO Attending Provider Sabino Mauricio Attending Unavailable Sabino Mauricio Admitting Unavailable Aichholz PRESS BRAKE OPERATOR, Marisol Unavailable Deja Perez Attending Unavailable MARISOL BOYCE Admitting Unavailable MARISOL BOYCE Attending Unavailable YAMILEX ARMSTRONG Admitting Unavailable YAMILEX ARMSTRONG Attending Unavailable Fiona Beaver Attending Unavailable YAMILEX ARMSTRONG Attending Unavailable YAMILEX ARMSTRONG Admitting Unavailable MARISOL BOYCE Attending Unavailable CARLI MARISOL J Admitting Unavailable AICHHOLZ, MARISOL Attending Unavailable AICHHOLZ, MARISOL Attending Unavailable AICHHOLZ, MARISOL Attending Unavailable AICHHOLZ, MARISOL Attending Unavailable AICHHOLZ, MARISOL Attending Unavailable MEDARDOHHOLZ, MARISOL Attending Unavailable MEDARDOHHOLZ, MARISOL Attending Unavailable ELTAHAWKervin, EHAB Attending Unavailable ELTAHAWY, EHAB Attending Unavailable ELTAHAWKervin, EHAB Attending Unavailable Medications Current Medications Medication Drug Class(es) Dates Sig (Normalized) Sig (Original) [id number] 200 actuat albuterol 0.09 mg/actuat metered dose inhaler (20 sources) beta2-Adrenergic Agonist Start: 07-01-2022 take 2 puff(s) by mouth every six hours as needed for wheezing albuterol (PROVENTIL HFA;VENTOLIN HFA) 90 mcg/actuation inhaler Indications: COPD, moderate ([facility]) INHALE 2 PUFFS BY MOUTH EVERY 6 HOURS NEEDED FOR WHEEZING 54 g 1 07/01/2022 Active amiodarone hydrochloride 200 mg oral tablet (20 sources) Antiarrhythmic Start: 10-07-2023 End: 01-12-2024 take 1 tablet by mouth once daily amiodarone (Pacerone) 200 MG tablet Take 200 mg by mouth Daily 01/02/2024 Active amLODIPine 5 mg oral tablet (8 sources) Dihydropyridine Calcium Channel Cesilia Start: 10-07-2023 End: 01-14-2024 take 1 tablet by mouth in the morning amLODIPine (Norvasc) 5 MG tablet Take 5 mg by mouth in the morning. 10/07/2023 01/14/2024 Active apixaban 5 mg oral tablet (20 sources) Factor Xa Inhibitor Start: 03-14-2024 End: 03-14-2025 take 1 tablet by mouth in the morning apixaban (Eliquis) 5 MG tablet Indications: PAD (peripheral artery disease) , Paroxysmal atrial fibrillation (HCC) Take 1 tablet (5 mg) by mouth in the morning and 1 tablet (5 mg) before bedtime. 180 tablet 1 10/03/2024 01/01/2025 Active Start: 10-07-2023 End: 01-13-2024 take 1 tablet by mouth in the morning apixaban (Eliquis) 5 MG tablet Take 5 mg by mouth in the morning and 5 mg in the evening. 10/07/2023 01/13/2024 Active aspirin 81 mg chewable tablet (20 sources) Platelet Aggregation Inhibitor, Nonsteroidal Anti-inflammatory Drug Start: 10-07-2023 Aspirin Low Dose 81 MG chewable tablet Chew 81 mg Daily 10/07/2023 Active Start: 03-12-2013 take 81 mg by mouth once daily aspirin 81 mg, Oral, Daily, Refills(s) 0, Blood Thinner Start Date: 03/12/13 Status: Ordered Repeat number: 1 take 1 tablet by allyn th in the morning aspirin 81 mg Take 1 tablet (81 mg total) by mouth in the morning. Active atorvastatin 80 mg oral tablet (20 sources) HMG-CoA Reductase Inhibitor take 1 tablet by mouth in the morning atorvastatin (Lipitor) 80 MG tablet Take 80 mg by mouth in the morning. Active carvedilol 3.125 mg oral tablet (20 sources) alpha-Adrenergic Cesilia, beta-Adrenergic Cesilia Start: take 1 tablet by mouth in the morning carvedilol (Coreg) 3.125 MG tablet Take 3.125 mg by mouth in the morning and 3.125 mg in the evening. Take with meals. 10/07/2023 Active Start: 10-19-2021 End: 03-05-2024 take 1 tablet by mouth in the morning, then take 1 tablet by mouth at bedtime carvediloL (COREG) 12.5 mg tablet Take 1 tablet (12.5 mg total) by mouth in the morning and 1 tablet (12.5 mg total) before bedtime. 10/19/2021 03/05/2024 Discontinued (Therapy completed) take 6.25 mg by mout h in the morning carvedilol (Coreg) 12.5 MG tablet Take 6.25 mg by mouth in the morning and 6.25 mg at noon. 0 Active ciprofloxacin 500 mg oral tablet (2 sources) Quinolone Antimicrobial Start: 03-13-2020 take 1 mg by mouth every twelve hours Cipro 500 mg Tab mg tab(s), Oral, q12hr, Refills(s) 0 Start Date: 03/13/20 Status: Ordered clopidogrel 75 mg oral tablet (20 sources) P2Y12 Platelet Inhibitor Start: 03-12-2013 End: 03-05-2024 take 75 mg by mouth once daily clopidogrel 75 mg, Oral, Daily, Refills(s) 0, Blood Thinner Start Date: 03/12/13 Status: Ordered Repeat number: 1 Continuous Glucose Cane Loader (Dexcom G7 Cane Loader) device (8 sources) Start: 10-20-2023 End: 01-28-2024 Continuous Glucose Cane Loader (Dexcom G7 Cane Loader) device Indications: Type 2 diabetes mellitus without complication, with long-term current use of insulin ([facility]) 1 each Daily 1 each 1 10/20/2023 01/28/2024 Active Continuous Glucose Sensor (Dexcom G7 Sensor) misc (8 sources) Start: 10-20-2023 End: 01-18-2024 Continuous Glucose Sensor (Dexcom G7 Sensor) misc Indications: Type 2 diabetes mellitus without complication, with long-term current use of insulin ([facility]) 1 each Daily 12 each 4 10/20/2023 01/18/2024 Active dapagliflozin 10 mg oral tablet (20 sources) Sodium-Glucose Cotransporter 2 Inhibitor Start: 07-11-2023 take 1 tablet by mouth once daily Farxiga 10 mg oral tablet 10 mg = 1 tab(s), Oral, Daily, Refills(s) 0 Start Date: 07/11/23 Status: Ordered Repeat number: 1 dapagliflozin (F arxiga) 5 MG Take by mouth Active ezetimibe 10 mg oral tablet (20 sources) Dietary Cholesterol Absorption Inhibitor Start: 02-13-2024 End: 02-12-2025 take 1 tablet by mouth at bedtime ezetimibe (Zetia) 10 MG tablet Indications: Mixed hyperlipidemia Take 1 tablet (10 mg) by mouth at bedtime 90 tablet 1 10/25/2024 01/23/2025 Active Start: 10-07-2023 End: 01-12-2024 take 1 tablet by mouth at bedtime ezetimibe (Zetia) 10 MG tablet Take 10 mg by mouth at bedtime 10/07/2023 01/12/2024 Active ferrous sulfate 325 mg oral tablet (20 sources) Start: 10-19-2023 End: 01-17-2024 take 1 tablet by mouth in the morning ferrous sulfate (FeroSul) 325 (65 Fe) MG tablet Indications: Iron deficiency anemia, unspecified iron deficiency anemia type Take 1 tablet (325 mg) by mouth in the morning and 1 tablet (325 mg) in the evening. Take with meals. 180 tablet 1 10/19/2023 01/17/2024 Active Start: 04-11-2023 End: 07-10-2023 take 1 tablet by mouth in the morning ferrous sulfate 325 (65 Fe) MG tablet Indications: Iron deficiency anemia, unspecified iron deficiency anemia type Take 1 tablet (325 mg) by mouth in the morning and 1 tablet (325 mg) before bedtime. 180 tablet 1 04/11/2023 07/10/2023 Active End: 03-05-2024 take 1 tablet by mouth twice daily ferrous sulfate 325 (65 FE) mg tablet ferrous sulfate 325 mg (65 mg iron) tablet TAKE 1 TABLET BY MOUTH TWICE DAILY. MAY CAUSE DISCOLORATION OF STOOL 03/05/2024 Discontinued (Therapy completed) 3 ml insulin detemir 100 unt/ml pen injector (20 sources) Insulin Analog Start: 06-12-2020 Levemir FlexTo uch 100 units/mL subcutaneous solution Refills(s) 0 Start Date: 06/12/20 Status: Ordered Repeat number: 1 Start: 06-12-2020 Levemir FlexTo uch 100 units/mL subcutaneous solution Refills(s) 0 Start Date: 06/12/20 Status: Ordered insulin detemir (LEVEMIR) 100 unit/mL injection Inject under the skin nightly. Active End: 03-05-2024 insulin detemir U-100 (LEVEM IR) 100 unit/mL (3 mL) insulin pen 03/05/2024 Discontinued (Therapy completed) inject 50 [IU] by lane bcutaneous injection at bedtime insulin detemir (Levemir) 100 UNIT/ML injection Inject 50 Units under the skin at bedtime 0 Active 3 ml insulin glargine 100 unt/ml pen injector (20 sources) Insulin Analog Start: 04-04-2024 End: 07-03-2024 inject 50 [IU] by subcutaneous injection once daily, then inject 50 [IU] by subcutaneous injection once daily insulin glargine (Lantus SoloStar) 100 UNIT/ML pen Indications: Type 2 diabetes mellitus without complication, with long-term current use of insulin (HCC) Inject 50 Units under the skin Daily Pt to take up to a total of 50 units daily 45 mL 3 04/04/2024 Active Start: 02-15-2024 insulin glargi ne,hum.rec.anlog (BASAGLAR KWIKPEN U-100 INSULIN) 100 unit/mL (3 mL) insulin pen Inject 35 Units under the skin nightly. 02/15/2024 Active Start: 03-22-2023 End: 04-04-2024 insulin glargine (Basaglar K Vereniceen) 100 UNIT/ML pen Indications: Type 2 diabetes mellitus without complication, with long-term current use of insulin (CMS/HCC) Up to 50 units daily 15 each 1 02/15/2024 04/04/2024 Discontinued (Cost of medication) insulin glargine-yfgn (Semglee-yfgn) 100 UNIT/ML pen (2 sources) Start: 03-29-2024 End: 04-04-2024 insulin glargine-yfgn (Semglee-yfgn) 100 UNIT/ML pen Indications: Type 2 diabetes mellitus without complication, with long-term current use of insulin (CMS/HCC) Will use up to 50 units daily 45 mL 1 03/29/2024 04/04/2024 Discontinued (Cost of medication) Start: 03-29-2024 insulin glargi ne-yfgn (Semglee-yfgn) 100 UNIT/ML pen Indications: Type 2 diabetes mellitus without complication, with long-term current use of insulin (CMS/HCC) Will use up to 50 units daily 45 mL 1 03/29/2024 Active lisinopril 20 mg oral tablet (20 sources) Angiotensin Converting Enzyme Inhibitor Start: 04-10-2024 lisinopril 20 MG tablet 20 mg Daily 04/10/2024 Active Start: 02-25-2024 End: 05-15-2024 lisinopril 5 MG tablet 11/30 /2024 05/15/2024 Discontinued (Therapy completed) Start: 10-07-2023 End: 04-04-2024 take 1 tablet by mouth in the morning lisinopril 20 MG tablet Take 20 mg by mouth in the morning. 10/07/2023 04/04/2024 Active metFORMIN hydrochloride 500 mg oral tablet (20 sources) Biguanide Start: 02-15-2024 End: 11-08-2024 take 1 tablet by mouth in the morning metFORMIN (Glucophage) 500 MG tablet Indications: Type 2 Diabetes Mellitus Take 1 tablet (500 mg) by mouth in the morning and 1 tablet (500 mg) in the evening. Take with meals. 180 tablet 08/10/2024 11/08/2024 Active Start: 03-12-2013 take 1000 mg by mouth twice da roxana metformin 1,000 mg, Oral, BID, Refills(s) 0, High blood sugar Start Date: 03/12/13 Status: Ordered take 1 tablet by allyn th once daily at breakfast metFORMIN (GLUCOPHAGE) 1000 mg tablet Take 1 tablet (1,000 mg total) by mouth daily with breakfast. Active Metoprolol (20 sources) beta-Adrenergic Cesilia Start: 03-12-2013 metopr olol Oral, Daily, Refills(s) 0, High blood pressure Start Date: 03/12/13 Status: Ordered Repeat number: 1 Start: 03-12-2013 metoprolol Ora l, Daily, Refills(s) 0, High blood pressure Start Date: 03/12/13 Status: Ordered End: 03-05-2024 take 1 tablet by mouth every twenty-four hours in the morning metoprolol succinate XL (TOPROL-XL) 25 mg 24 hr tablet Take 1 tablet (25 mg total) by mouth in the morning. 03/05/2024 Discontinued (Therapy completed) omeprazole 40 mg delayed release oral capsule (20 sources) Proton Pump Inhibitor Start: 04-16-2024 End: 12-25-2024 take 1 capsule by mouth before mealtime omeprazole (PriLOSEC) [address] capsule Indications: Riley's esophagus with dysplasia Take 1 capsule (40 mg) by mouth in the morning. Take before meals. 90 capsule 1 09/26/2024 12/25/2024 Active Start: 01-05-2022 End: 03-05-2024 take 1 capsule by mouth in the morning omeprazole (PriLOSEC) 20 mg capsule Take 1 capsule (20 mg total) by mouth in the morning. 01/05/2022 03/05/2024 Discontinued (Therapy completed) ONETOUCH VERIO FLEX misc (20 sources) Start: 04-20-2019 End: 03-05-2024 ONETOUCH VERIO FLEX misc USE TO TEST BLOOD SUGAR TID DIRECTED 04/20/2019 03/05/2024 Discontinued (Therapy completed) Start: 04-20-2019 ONETOUCH VERIO FLEX misc USE TO TEST BLOOD SUGAR TID DIRECTED 04/20/2019 Active peg 3350-sod sulf,ehpj-gvb-rwj 178.7-7.3-0.5 gram recon soln (1 source) Start: 03-05-2024 End: 03-06-2024 peg 3350-sod sulf,kgsw-nrx-woc 178.7-7.3-0.5 gram recon soln Indications: Encounter for colonoscopy due to history of colonic polyp Take 1 kit by mouth once daily for 1 dose. Please see instructional sheet given by physicians office. 1 each 03/05/2024 03/06/2024 Active ramipril 5 mg oral tablet (20 sources) Angiotensin Converting Enzyme Inhibitor Start: 03-12-2013 take 5 mg by mouth once daily ramipril 5 mg, Oral, Daily, Refills(s) 0, High blood pressure Start Date: 03/12/13 Status: Ordered Repeat number: 1 End: 03-05-2024 take 1 capsule by mouth in the morning ramipril (ALTACE) 5 mg capsule Take 1 capsule (5 mg total) by mouth in the morning. 03/05/2024 Discontinued (Therapy completed) Semglee, yfgn, 100 UNIT/ML pen (13 sources) Start: 04-04-2024 End: 09-26-2024 inject 50 [IU] by subcutaneous injection once daily Semglee, yfgn, 100 UNIT/ML pen INJECT UP TO 50 UNITS UNDER THE SKIN EVERY DAY 04/04/2024 09/26/2024 Discontinued (Therapy completed) Start: 04-04-2024 inject 50 [IU] by lane bcutaneous injection once daily Semglee, yfgn, 100 UNIT/ML pen INJECT UP TO 50 UNITS UNDER THE SKIN EVERY DAY 04/04/2024 Active sennosides, half-way 8.6 mg oral tablet (15 sources) Start: 10-07-2023 End: 01-13-2024 take 1 tablet by mouth in the morning sennosides (Senokot) 8.6 MG tablet Take 8.6 mg by mouth in the morning and 8.6 mg in the evening. 10/07/2023 01/13/2024 Active simvastatin 40 mg oral tablet (20 sources) HMG-CoA Reductase Inhibitor Start: 03-12-2013 End: 03-05-2024 take 40 mg by mouth once daily at bedtime simvastatin 40 mg, Oral, Once a day (at bedtime), Refills(s) 0, High cholesterol Start Date: 03/12/13 Status: Ordered Repeat number: 1 SITagliptin 100 mg oral tablet (1 source) Dipeptidyl Peptidase 4 Inhibitor Start: 03-12-2013 take 100 mg by mouth once daily Januvia 100 mg, Oral, Daily, Refill(s) 0, High blood sugar Start Date: 03/12/13 Status: Ordered tamsulosin hydrochloride 0.4 mg oral capsule (20 sources) alpha-Adrenergic Cesilia Start: 07-05-2024 End: 10-03-2024 take 1 capsule by mouth every twenty-four hours at bedtime tamsulosin (Flomax) 0.4 MG 24 hr capsule Indications: Benign prostatic hyperplasia with lower urinary tract symptoms, symptom details unspecified Take 1 capsule (0.4 mg) by mouth at bedtime 90 capsule 3 07/05/2024 10/03/2024 Active Start: 06-18-2021 End: 07-05-2024 take 1 capsule by mouth once daily tamsulosin 0.4 mg Cap 0.4 mg = 1 cap(s), Oral, Daily, # 90 cap(s), Refills(s) 3, Pharmacy: [facility] #[id number], 77.8, kg, 06/18/22 9:54:00 EDT, Weight Dosing Start Date: 06/18/22 Status: Ordered Quantity: 90.0 Unit: cap(s) Repeat number: 4 take 1 capsule by mo [facility] every twenty-four hours at bedtime tamsulosin (Flomax) 0.4 MG 24 hr capsule Take 0.4 mg by mouth at bedtime 0 Active 30 actuat umeclidinium 0.0625 mg/actuat / vilanterol 0.025 mg/actuat dry powder inhaler (20 sources) Anticholinergic, beta2-Adrenergic Agonist Start: 07-01-2022 End: 03-05-2024 take 1 puff(s) by inhalation in the morning umeclidinium-vilanteroL (ANORO ELLIPTA) 62.5-25 mcg/actuation blister with device Inhale 1 puff in the morning. 60 each 10 07/01/2022 03/05/2024 Discontinued (Therapy completed) Completed/Discontinued Medications Medication Drug Class(es) Dates Sig (Normalized) Sig (Original) tadalafil 10 mg oral tablet (3 sources) Phosphodiesterase 5 Inhibitor Start: 07-11-2023 Cialis 10 mg Tab See Instructions, PRN for erectile dysfunction, 1-2 tab(s) 30-60mins prior to sexual activity. do not exceed 20mg in 48 hrs., # 10 tab(s), Refills(s) 5, Pharmacy: [facility] #[id number], 182, cm, 07/11/23 14:01:00 EDT, Height/Length Dosing, 76, kg, 07/11/23 14:01:00 EDT, Weight Dosing Start Date: 07/11/23 Status: Ordered Quantity: 10.0 Unit: tab(s) Repeat number: 6 Problems Active Problems Problem Classification Problem Date Documented Da te Episodic/Chronic Acute myocardial infarction (20 sources) Myocardial infarction; Translations: [Non-ST elevation (NSTEMI) myocardial infarction] Onset: 09-30-2023 10-11-2023 Chronic Allergic reactions (5 sources) Contact dermatitis due to plants 03-12-2020 Episodic Cardiac dysrhythmias (20 sources) Atrial fibrillation; Translations: [Unspecified atrial fibrillation] Onset: 09-30-2023 10-11-2023 Chronic Cardiac dysrhythmias (2 sources) Palpitations; Translations: [Palpitations] Onset: 10-09-2024 Episodic Chronic obstructive pulmonary disease and bronchiectasis (20 sources) Moderate chronic obstructive pulmonary disease; Translations: [Chronic obstructive pulmonary disease, unspecified] Onset: 07-01-2022 06-07-2023 Chronic Coagulation and hemorrhagic disorders (20 sources) Thrombophilia; Translations: [Other thrombophilia] Onset: 11-22-2023 11-22-2023 Chronic Conditions associated with dizziness or vertigo (16 sources) Dizziness and giddiness; Translations: [Dizziness and giddiness] Onset: 08-15-2024 08-15-2024 Episodic Coronary atherosclerosis and other heart disease (20 sources) Coronary arteriosclerosis; Translations: [History of myocardial infarction] Onset: 04-30-2022 03-12-2020 Chronic Deficiency and other anemia (5 sources) Anemia 03-12-2020 Episodic Diabetes mellitus with complications (20 sources) Type 2 diabetes mellitus; Translations: [Type 2 diabetes mellitus with other specified complication] Onset: 05-15-2024 05-15-2024 Chronic Diabetes mellitus without complication (20 sources) Diabetes mellitus; Translations: [Type 2 diabetes mellitus without complications] Onset: 01-06-2022 03-12-2020 Chronic Disorders of lipid metabolism (20 sources) Hyperlipidemia; Translations: [Hyperlipidemia, unspecified] Onset: 06-19-2022 03-12-2020 Chronic Esophageal disorders (20 sources) Riley's esophagus; Translations: [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] Onset: 06-07-2023 06-07-2023 Chronic Essential hypertension (20 sources) Essential hypertension; Translations: [Essential (primary) hypertension] Onset: 04-11-2023 04-11-2023 Chronic Genitourinary symptoms and ill-defined conditions (5 sources) Post-micturition incontinence 03-13-2020 Chronic Genitourinary symptoms and ill-defined conditions (19 sources) Incomplete emptying of bladder; Translations: [Nocturia] Onset: 01-05-2022 03-13-2020 Episodic Heart valve disorders (20 sources) Mitral valve regurgitation; Translations: [Nonrheumatic mitral (valve) insufficiency] Onset: 10-14-2021 03-12-2020 Chronic Hyperplasia of prostate (20 sources) Benign prostatic hypertrophy with outflow obstruction; Translations: [Benign prostatic hyperplasia with lower urinary tract symptoms] Onset: 06-18-2021 Chronic Malaise and fatigue (5 sources) Fatigue 03-12-2020 Episodic Miscellaneous mental health disorders (17 sources) Primary insomnia; Translations: [Primary insomnia] Onset: 05-15-2024 05-15-2024 Chronic Mood disorders (5 sources) Depressive disorder 03-12-2020 Chronic Osteoarthritis (20 sources) Osteoarthritis of left hip joint; Translations: [Unilateral primary osteoarthritis, left hip] Onset: 04-05-2019 04-05-2019 Chronic Other aftercare (1 source) Long-term current use of drug therapy; Translations: [[employer] (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 of antithrombotics/anti platelets] Onset: 06-18-2022 Episodic Other and ill-defined heart disease (20 sources) Left ventricular thrombus; Translations: [Intracardiac thrombosis, not elsewhere classified] Onset: 11-10-2023 11-22-2023 Chronic Other and ill-defined heart disease (20 sources) Left ventricular aneurysm; Translations: [Aneurysm of heart] Onset: 11-10-2023 11-22-2023 Chronic Other circulatory disease (20 sources) Disorder of carotid artery; Translations: [Disorder of arteries and arterioles, unspecified] Onset: 06-07-2023 06-07-2023 Chronic Other connective tissue disease (5 sources) Bursitis of elbow 03-12-2020 Episodic Other diseases of kidney and ureters (2 sources) Urinary tract obstruction; Translations: [Other obstructive and reflux uropathy] Onset: 06-18-2021 Episodic Other inflammatory condition of skin (5 sources) Granuloma annulare 03-12-2020 Episodic Other injuries and conditions due to external causes (5 sources) At low risk for fall 03-12-2020 Episodic Other lower respiratory disease (5 sources) Snoring 03-12-2020 Episodic Other lower respiratory disease (1 source) Other forms of dyspnea; Translations: [OTHER FORMS OF DYSPNEA] Onset: 06-19-2022 Episodic Other male genital disorders (20 sources) Impotence; Translations: [Male erectile dysfunction, unspecified] Onset: 06-18-2022 03-12-2020 Chronic Other male genital disorders (4 sources) Secondary erectile dysfunction; Translations: [Erectile dysfunction due to diseases classified elsewhere] 02-15-2024 Chronic Other male genital disorders (5 sources) Pain in testicle 03-13-2020 Episodic Other nervous system disorders (1 source) Other chronic pain; Translations: [Other chronic pain] Onset: 01-11-2024 Chronic Other nutritional; endocrine; and metabolic disorders (1 source) Overweight in adulthood with body mass index of 25 or more but less than 30; Translations: [Body mass index (BMI) 25.0-25.9, adult] Onset: 06-18-2021 Episodic Other nutritional; endocrine; and metabolic disorders (5 sources) Body mass index 25-29 - overweight 06-18-2021 Episodic Other skin disorders (5 sources) Night sweats 03-12-2020 Episodic Other skin disorders (5 sources) Papule of skin 03-12-2020 Episodic Pancreatic disorders (not diabetes) (5 sources) Pseudocyst of pancreas 03-12-2020 Episodic Peripheral and visceral atherosclerosis (20 sources) Peripheral vascular disease, unspecified; Translations: [Peripheral vascular disease, unspecified] Onset: 03-25-2023 03-25-2023 Chronic Pulmonary heart disease (2 sources) Pulmonary hypertension; Translations: [Pulmonary hypertension, unspecified] 09-26-2024 Chronic Residual codes; unclassified (20 sources) Obstructive sleep apnea syndrome; Translations: [Obstructive sleep apnea (adult) (pediatric)] Onset: 06-07-2023 03-12-2020 Chronic Residual codes; unclassified (2 sources) Obstructive sleep apnea (adult) (pediatric); Translations: [Obstructive sleep apnea (adult) (pediatric)] Onset: 11-22-2023 Chronic Residual codes; unclassified (3 sources) Family history of cancer; Translations: [Family history of malignant neoplasm of prostate] Onset: 06-18-2021 Episodic Residual codes; unclassified (5 sources) Family history of prostate cancer 03-13-2020 Episodic Screening and history of mental health and substance abuse codes (5 sources) Ex-smoker 03-13-2020 Episodic Spondylosis; intervertebral disc disorders; other back problems (20 sources) Lumbar spondylosis; Translations: [Herniation of nucleus pulposus of lumbar intervertebral disc] Onset: 06-07-2019 03-12-2020 Chronic Thyroid disorders (20 sources) Hypothyroidism; Translations: [Other specified hypothyroidism] Onset: 10-04-2023 10-11-2023 Chronic Unclassified (5 sources) Asymptomatic microscopic hematuria 03-13-2020 Unclassified (5 sources) Peripheral arterial disease 03-12-2020 Unclassified (6 sources) Patient encounter status 06-18-2022 Unclassified (1 source) POST COVID-19 CONDITION UNSPECIFIED; Translations: [POST COVID-19 CONDITION UNSPECIFIED] Onset: 06-19-2022 Unclassified (1 source) Acute cough; Translations: [Acute cough] Onset: 10-11-2023 Unclassified (1 source) Personal history of colon polyps, unspecified; Translations: [Personal history of colon polyps, unspecified] Onset: 03-05-2024 Unclassified (1 source) Colon Cancer Screening Onset: 03-05-2024 Past or Other Problems Problem Classification Problem Date Documented Da te Episodic/Chronic Abdominal hernia (17 sources) Hiatal hernia; Translations: [Diaphragmatic hernia without obstruction or gangrene] Onset: 04-11-2024 04-11-2024 Episodic Abdominal pain (1 source) Epigastric pain; Translations: [EPIGASTRIC PAIN] Onset: 01-09-2022 Episodic Coronary atherosclerosis and other heart disease (1 source) Presence of coronary angioplasty implant and graft; Translations: [Presence of coronary angioplasty implant and graft] Onset: 12-16-2023 Episodic Deficiency and other anemia (6 sources) Iron deficiency anemia, unspecified; Translations: [IRON DEFICIENCY ANEMIA UNSPECIFIED] Onset: 06-11-2022 Episodic Deficiency and other anemia (20 sources) Iron deficiency anemia; Translations: [Iron deficiency anemia, unspecified] Onset: 04-11-2023 04-11-2023 Episodic Mood disorders (20 sources) Mood disorders Onset: 06-07-2023 Resolved: 08-15-2024 06-07-2023 Other aftercare (1 source) [facility] (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 of insulin; 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] Onset: 11-29-2023 Episodic Other and unspecified benign neoplasm (20 sources) Adenomatous polyp of colon ; Translations: [Benign neoplasm of colon, unspecified] Onset: 06-07-2023 03-12-2020 Episodic Other bone disease and musculoskeletal deformities (20 sources) Bone pain; Translations: [Other specified disorders of bone, other site] Onset: 01-10-2019 01-10-2019 Episodic Other connective tissue disease (20 sources) Trochanteric bursitis of left hip; Translations: [Trochanteric bursitis, left hip] Onset: 11-29-2018 11-29-2018 Episodic Other diseases of kidney and ureters (1 source) Other obstructive and reflux uropathy; Translations: [Other obstructive and reflux uropathy] Onset: 07-06-2023 Episodic Other gastrointestinal disorders (1 source) Diarrhea, unspecified; Translations: [DIARRHEA UNSPECIFIED] Onset: 01-09-2022 Episodic Other lower respiratory disease (20 sources) Cough; Translations: [Acute cough] Onset: 10-11-2023 10-11-2023 Episodic Other lower respiratory disease (20 sources) Cough; Translations: [Cough] Onset: 10-11-2023 Resolved: 10-11-2023 10-11-2023 Episodic Other nutritional; endocrine; and metabolic disorders (1 source) Abnormal weight loss; Translations: [ABNORMAL WEIGHT LOSS] Onset: 01-09-2022 Episodic Other screening for suspected conditions (not mental disorders or infectious disease) (20 sources) Encounter for screening for malignant neoplasm of prostate; Translations: [Screening for malignant neoplasm done] Onset: 07-11-2023 Episodic Residual codes; unclassified (20 sources) Tobacco user; Translations: [Tobacco use] Onset: 06-07-2023 Resolved: 06-07-2023 06-07-2023 Episodic Residual codes; unclassified (1 source) Family history of malignant neoplasm of prostate; Translations: [Family history of malignant neoplasm of prostate] Onset: 07-06-2023 Episodic Spondylosis; intervertebral disc disorders; other back problems (20 sources) Backache; Translations: [Lumbosacral pain] Onset: 10-16-2018 04-11-2023 Episodic Results Test Name Value Interpretation Reference Range Facility Orders Onlyon 11-21-2024 Orders Only [id number] Kimmy Mcarthur 1945 M Date Provider Department Center 11/21/2024 [id number], HISTORICAL ALEX Roland Family History Problem Relation Age of Onset Cancer Father Diabetes Father Family Status - Relation Status Age at Father [facility] Office Visiton 10-09-2024 Follow-up visit [id number] Kimmy Mcarthur 1945 M Date Provider Department Center 10/09/2024 [id number], [facility] Family History Problem Relation Age of Onset Cancer Father Diabetes Father Family Status - Relation Status Age at Father Level of Service:[id number] [place] OFFICE/OUTPATIENT ESTABLISHED MOD MDM 30 MIN [facility] 36on 08-16-2024 36 Pt informed they smiley l call sleep study place as they never followed up w sleep study, they will stop amlodipine [facility] Ambulatory Visit Summaryon 0 07-18-2024 Ambulatory Visit Summary Ambulatory Visit Summary KIMMY MCARTHUR :1945 Visit Date:07/18/2024 Ambulatory Visit Instructions Your Diagnosis BPH with urinary obstruction Family history of prostate cancer ED (erectile dysfunction) Your Care Team Attending Physician - Chris QUINTANA, Deja Henry Primary Care Physician - MARISOL BOYCE CNP This Is Your Medications List Contact prescribing physician if questions or concerns amiodarone (amiodarone 200 mg Tab) aspirin atorvastatin (atorvastatin 80 mg Tab) carvedilol (carvedilol 3.125 mg Tab) clopidogrel dapagliflozin (Farxiga 10 mg oral tablet) insulin glargine (Basaglar KwikPen 100 units/mL subcutaneous solution) lisinopril (lisinopril 20 mg Tab) metformin (metformin 500 mg Tab) omeprazole (omeprazole 40 mg Cap-DR) ramipril simvastatin tadalafil (Cialis 10 mg Tab) tamsulosin (tamsulosin 0.4 mg Cap) Procedures Performed Iliofemoral vein stent (02/26/2020), Injection of sacroiliac joint (08/03/2019), Colonoscopy (10/26/2018), Cataract, Cholecystectomy, History of carotid endarterectomy, Placement of stent in cardiac conduit, Shoulder replacement. Discharge Vitals Height 182 cm Height 72 in Weight 75.0 kg Weight 165.347 lb BMI 22.64 What to do next You Need to Schedule the Following Appointments Follow Up with Chris QUINTANA, Deja Henry, URL, URO When: Where: Medications What How Much When Instructions Unchanged amiodarone (amiodarone 200 mg Tab) 1 Tablets Contact prescribing physician if questions or concerns Unchanged aspirin 81 Milligram By Mouth Every day Contact prescribing physician if questions or concerns Unchanged atorvastatin (atorvastatin 80 mg Tab) 1 Tablets Contact prescribing physician if questions or concerns Unchanged carvedilol (carvedilol 3.125 mg Tab) 1 Tablets Contact prescribing physician if questions or concerns Unchanged clopidogrel 75 Milligram By Mouth Every day Contact prescribing physician if questions or concerns Unchanged dapagliflozin (Farxiga 10 mg oral tablet) 1 Tablets By Mouth Every day Contact prescribing physician if questions or concerns Unchanged insulin glargine (Basaglar KwikPen 100 units/ mL subcutaneous solution) Contact prescribing physician if questions or concerns Unchanged lisinopril (lisinopril 20 mg Tab) 1 Tablets Contact prescribing physician if questions or concerns Unchanged metformin (metformin 500 mg Tab) 1 Tablets Contact prescribing physician if questions or concerns Unchanged omeprazole (omeprazole 40 mg Cap-DR) 1 Capsules Contact prescribing physician if questions or concerns Unchanged ramipril 5 Milligram By Mouth Every day Contact prescribing physician if questions or concerns Unchanged simvastatin 40 Milligram By Mouth Once a day (at bedtime) Contact prescribing physician if questions or concerns Unchanged tadalafil (Cialis 10 mg Tab) See instructions 1-2 tab(s) 30-60mins prior to sexual activity. do not exceed 20mg in 48 hrs. Contact prescribing physician if questions or concerns Unchanged tamsulosin (tamsulosin 0.4 mg Cap) 1 Capsules By Mouth Every day Contact prescribing physician if questions or concerns Allergies No Known Allergies Problems Ongoing - Any problem that you are currently receiving treatment for. Acute myocardial infarct greater than 3 months ago Anemia Antiplatelet or antithrombotic long-term use Asymptomatic microscopic hematuria At low risk for fall BMI 25.0-25.9,adult BPH with urinary obstruction Bursitis of elbow CAD (coronary artery disease) Controlled diabetes mellitus without complication, with long-term current use of insulin Depression Dermatitis due to plants, including poison elif, sumac, and oak ED (erectile dysfunction) Family history of prostate cancer Fatigue Former smoker Granuloma annulare Hyperlipidemia Incomplete bladder emptying Loud snoring Lumbar spondylosis Mitral valve regurgitation Night sweat CORNELIA (obstructive sleep apnea) PAD (peripheral artery disease) Papule of skin Testicle pain Tubulovillous adenoma of colon Historical - Any problem that you are no longer receiving treatment for. Erectile dysfunction Nocturia Post-void dribbling Pseudocyst of pancreas Urinary urgency Patient Survey You may receive a survey via text or e-mail asking about your office visit. Please share your experience with us by completing your survey. We appreciate your feedback and thank you for choosing us for your care. Education Materials Benign Prostatic Hyperplasia Benign prostatic hyperplasia (BPH) is an enlarged prostate gland that is caused by the normal aging process. The prostate may get bigger as a man gets older. The condition is not caused by cancer. The prostate is a walnut-sized gland that is involved in the production of semen. It is located in front of the rectum and below the bladder. The bladder stores urine. The urethra carries stored urine out (more content not included)... Normal [facility] Urology Office/Clinic Noteon 07-18-2024 Urology Office/Clinic Note Urology Office/Clinic Note Chief Complaint 1 year with PSA HPI Staff 78 year old male patient here for 1 year follow up with PSA. Previous Dx: other obstructive and reflux uropathy, prostate cancer screening, BPH with urinary obstruction, ED, family hx of prostate cancer * flomax 0.4 mg, Cialis 20 mg prn PSA: 05/29/20 - 3.11 06/08/21 - 3.45 06/23/22- 3.19 07/06/23- 3.24 & 34.9% 07/11/24- 2.7 & 33.3% IPSS 4 Pt. denies having pain with urination or gross hematuria Pt. denies having abd or flank pain History of Present Illness Tests reviewed: reviewed UA and PSA. I have reviewed the previous health record information and history for this patient from Yamilex Armstrong PA-C and Dr. Perez I have reviewed and verified the staff HPI to be accurate for this encounter. There have been no associated fever, chills, flank pain, or blood in the urine. Denies any urinary infections since last encounter. Review of Systems PHQ Score Initial Depression Screen Score: 0 SCORE ROS - Provider Constitutional: denies weight loss, denies hot flashes. Eyes: denies eye problems. Gastrointestinal: denies nausea, denies vomiting. Cardiovascular: denies chest pain or angina. Integumentary: no dryness Musculoskeletal: denies musculoskeletal symptoms. ENMT: denies otolaryngeal symptoms. Respiratory: no shortness of breath. Heme/Lymph: denies easy bleeding tendency, denies easy bruising tendency. Psychiatric: no confusion, no anxiety. Genitourinary: See HPI. Physical Exam Vitals & Measurements HT: 72 in HT: 182 cm WT: 75.0 kg WT: 165.347 lb BMI: 22.64 General Appearance: alert, no distress, well nourished, well developed male. Assessment/Plan Prior Dr. Maya pt. Saw Ada Armstrong 07/11/23 for annual visit. Here for PSA, BPH and ED follow up. 1. BPH with urinary obstruction (N40.1: Benign prostatic hyperplasia with lower urinary tract symptoms) PSA 05/29/20 - 3.11 06/08/21 - 3.45 06/23/22 - 3.19 07/06/23 - 3.24 & 34.9% 11/29/23 - 3.12 07/11/24 - 2.7 & 33% Dr. Maya previously discussed dc'ing PSAs. Pt opted to continue PSA checks annually and only act if PSA should rise significantly. He still wishes to follow this plan. PSA remains low along with favorable percent free. UA today negative for blood or infection. IPSS 4 (3) Taking Flomax 0.4mg qd. No bothersome urinary complaints. Declines changes at this time Discussed having primary care check PSA given decreasing and to follow up with our office PRN. He agrees with plan. -Cont prostate cancer screening through primary care -F/up PRN, call if he needs to be seen 2. Family history of prostate cancer (Z80.42: Family history of malignant neoplasm of prostate) Father. Increased risk for prostate CA. See #1. 3. ED (erectile dysfunction) (N52.9: Male erectile dysfunction, unspecified) KAYE 1 (2) Trialed Viagra 100mg in the past which worked about 50% but caused intolerable headache and was very expensive. Prescribed Cialis 10mg prn at prior OV. Pt was advised that he could increase to 20mg. Pt states he has been 50 years and his is not interested in coitus. Does not feel med is necessary at this time. -Follow up if further treatment or workup is desired Follow-up With When Contact Information Chris QUINTANA, Deja Henry, URL, URO Additional Instructions: PRN Patient Education Benign Prostatic Hyperplasia Amalia Overton, personally scribed for Dr. Perez on 07/18/2024 09:13:10. . Documentation recorded by the scribAmalia bean, accurately reflects the services(s) I performed and decisions made by me. Authenticated by Dr. Perez on 07/18/2024 09:18:55. Problem List/Past Medical History Ongoing Acute myocardial infarct greater than 3 months ago Anemia Antiplatelet or antithrombotic long-term use Asymptomatic microscopic hematuria At low risk for fall BMI 25.0-25.9,adult BPH with urinary obstruction Bursitis of elbow CAD (coronary artery disease) Controlled diabetes mellitus without complication, with long-term current use of insulin Depression Dermatitis due to plants, including poison elif, sumac, and oak ED (erectile dysfunction) Family history of prostate cancer Fatigue Former smoker Granuloma annulare Hyperlipidemia Incomplete bladder emptying Loud snoring Lumbar spondylosis Mitral valve regurgitation Night sweat CORNELIA (obstructive sleep apnea) PAD (peripheral artery disease) Papule of skin Testicle pain Tubulovillous adenoma of colon Historical Erectile dysfunction Nocturia Post-void dribbling Pseudocyst of pancreas Urinary urgency Procedure/Surgical History Iliofemoral vein stent (02/26/2020), Injection of sacroiliac joint (08/03/2019), Colonoscopy (10/26/2018), Cataract, Cholecystectomy, History of carotid endarterectomy, Placement of stent in cardiac conduit, Shoulder replacement. Medications amiodarone 200 mg (more content not included)... Normal [facility] Comment on above: Result Comment: Elec tronically Signed By: Chris QUINTANA, Deja Henry\.br\Date and Time Signed: 07/18/24 09:19 EDT\.br\Electronically Co-Signed By: Amalia Herring.br\Date and Time Co-Signed: 07/18/24 09:13 EDT CBC w/ Auto Diffon 5 Basophils/100 WBC (Bld) 0.8 % Normal 0.0-2.0 [facility] Comment on above: Performed By: #### 2 [id number] #### [facility] [address] [place] [address] Erythrocyte distribution width (RBC) [Ratio] 15.6 % High 10.9-14.2 [facility] Comment on above: Performed By: #### 2 [id number] #### [facility] [address] [place] [address] Hematocrit (Bld) [Volume fraction] 32.5 % Low 37.7-49.0 [facility] Comment on above: Performed By: #### 2 [id number] #### [facility] [address] [place] [address] Lymphocytes/100 WBC (Bld) 22.2 % Normal 14.0-50.0 [facility] Comment on above: Performed By: #### 2 [id number] #### [facility] [address] [place] [address] Neutrophils/100 WBC (Bld) 65.2 % Normal 36.0-75.0 [facility] Comment on above: Performed By: #### 2 [id number] #### [facility] [address] [place] [address] Platelet mean volume (Bld) [Entitic vol] 8.3 fL Normal 6.4-10.8 [facility] Comment on above: Performed By: #### 2 [id number] #### [facility] [address] [place] [address] Basophils/Leukocytes Auto (Bld) [Pure # fraction] 0.0 E9/L Normal 0.0-0.2 [facility] Comment on above: Performed By: #### 2 [id number] #### [facility] [address] [place] [address] Eosinophils (Bld) [#/Vol] 0.2 E9/L Normal 0.0-0.5 [facility] Comment on above: Performed By: #### 2 [id number] #### [facility] [address] [place] [address] Eosinophils/100 WBC (Bld) 3.5 % Normal 0.0-8.0 [facility] Comment on above: Performed By: #### 2 [id number] #### [facility] [address] [place] [address] Hemoglobin (Bld) [Mass/Vol] 11.1 g/dL Low 13.5-17.5 [facility] Comment on above: Performed By: #### 2 [id number] #### [facility] [address] [place] [address] Lymphocytes (Bld) [#/Vol] 1.3 E9/L Normal 1.0-4.0 [facility] Comment on above: Performed By: #### 2 [id number] #### [facility] [address] [place] [address] MCH (RBC) [Entitic mass] 30.5 pg Normal 27.0-34.0 [facility] Comment on above: Performed By: #### 2 [id number] #### [facility] [address] [place] [address] MCHC (RBC) [Mass/Vol] 34.1 g/dL Normal 31.4-36.0 [facility] Comment on above: Performed By: #### 2 [id number] #### [facility] [address] [place] [address] MCV (RBC) [Entitic vol] 89.5 fL Normal 80.0-100.0 [facility] Comment on above: Performed By: #### 2 [id number] #### [facility] [address] [place] [address] Monocytes (Bld) [#/Vol] 0.5 E9/L Normal 0.2-1.0 [facility] Comment on above: Performed By: #### 2 [id number] #### [facility] [address] [place] [address] Neutrophils (Bld) [#/Vol] 3.8 E9/L Normal 2.0-7.5 [facility] Comment on above: Performed By: #### 2 [id number] #### [facility] [address] [place] [address] Platelet 203.0 E9/L Normal 150.0-500.0 [facility] Comment on above: Performed By: #### 2 [id number] #### [facility] [address] [place] [address] RBC (Bld) [#/Vol] 3.6 E12/L Low 4.3-5.9 [facility] Comment on above: Performed By: #### 2 [id number] #### [facility] [address] [place] [address] WBC corrected for nucl RBC Auto (Bld) [#/Vol] 5.8 E9/L Normal 4.0-11.0 [facility] Comment on above: Performed By: #### 2 [id number] #### [facility] [address] [place] [address] CHEMISTRYOrdered By: SYSTEM SYSTEM on 07-11-2024 Albumin [Mass/Vol] 4.1 g/dL Normal 3.3 - 5.0 gm/dL [facility] Albumin DL <= 20 mg/L (U) [Mass/Vol] 0.8 mg/dL Normal 0.0 - 1.9 mg/dL [facility] Albumin/Globulin [Mass ratio] 1.8 {ratio} Normal 1.1 - 2.2 [facility] ALP [Catalytic activity/Vol] 73 [iU]/d Normal 21 - 98 Int._Unit/L [facility] ALT No additional P-5'-P [Catalytic activity/Vol] 16 [iU]/d Normal 6 - 46 Int._Unit/L [facility] Anion gap [Moles/Vol] 12 mmol/L Normal 6 - 16 mEq/L R [facility] AST [Catalytic activity/Vol] 15 [iU]/d Normal 5 - 43 Int._Unit/L [facility] Bilirubin [Mass/Vol] 0.9 mg/dL Normal 0.0 - 1 .1 mg/dL [facility] Calcium [Mass/Vol] 9.2 mg/dL Normal 8.9 - 11. 1 mg/dL [facility] Chloride [Moles/Vol] 106 mmol/L Normal 101 - 1 11 mmol/L [facility] Cholesterol [Mass/Vol] 96 mg/dL Low 120 - 200 mg/dL [facility] Cholesterol in HDL [Mass/Vol] 38 mg/dL Invalid Interpretation Code [facility] Comment on above: Result Comment: '>= 60 LOW RISK' '<= 40 HIGH RISK' Cholesterol in LDL [Mass/Vol] 44 mg/dL Normal <=129mg/dL [facility] Cholesterol in VLDL [Mass/Vol] 14 mg/dL Normal 7 - 40 mg/dL [facility] CO2 [Moles/Vol] 24 mmol/L Normal 21 - 31 mmol/L [facility] Creatinine [Mass/Vol] 0.9 mg/dL Normal 0.5 - 1.3 mg/dL [facility] eGFR 87 mL/min/1.73 m2 Normal >=59mL/min /1 .73 m2 [facility] Globulin (S) [Mass/Vol] 2.3 g/dL Normal 1.4 - 4.0 gm/dL [facility] Glucose [Mass/Vol] 119 mg/dL Normal 55 - 199 mg/dL [facility] Iron [Mass/Vol] 38 ug/dL Normal 35 - 153 mcg/dL [facility] Potassium [Moles/Vol] 4.0 mmol/L Normal 3.5 - 5.3 mmol/L [facility] Protein [Mass/Vol] 6.4 g/dL Normal 6.0 - 7.8 gm/dL [facility] Sodium [Moles/Vol] 138 mmol/L Normal 135 - 145 mmol/L [facility] Triglyceride [Mass/Vol] 68 mg/dL Normal <=149mg/dL [facility] Urea nitrogen [Mass/Vol] 28 mg/dL High 5 - 21 mg/dL [facility] Urea nitrogen/Creatinine [Mass ratio] 31 mg/mg High 10 - 20 [facility] Free PSA [Mass/Vol] 0.9 ng/mL Invalid Interpretation Code [facility] Comment on above: Interpretive Data: T he concentration of free PSA and total PSA determined with assays from different manufacturers can vary due to differences in assay methods and specificity. Values obtained with different mercury cell cleaner's assays cannot be used interchangeably. The methodology used to obtain this result was chemiluminescence using [employer] Huron's Access Hybritech PSA reagent and Access Hybritech free PSA reagent. Free PSA/Total PSA [Mass fraction] 33.3 % Normal >=25.0% [facility] Prostate specific Ag [Mass/Vol] 2.7 ng/mL Normal 0.1 - 3.5 ng/mL [facility] Comment on above: Interpretive Data: T he concentration of PSA determined by different manufacturers can vary due to differences in assay methods and reagent specificity. Values obtained from different assay methods cannot be used interchangeably. The methodology used for this result was chemiluminescence using Magali Parrish's Access Hybritech PSA reagent. CHEMISTRYOrdered By: Chrissy Holder on 07-11-2024 HbA1c (Bld) [Mass fraction] 6.3 % High <=5.9% [facility] ChemAutoSS CMPon 07-11-2024 Albumin [Mass/Vol] 4.1 g/dL Normal 3.3-5.0 [facility] Comment on above: Performed By: #### 2 [id number] #### [facility] [address] [place] [address] Albumin/Globulin (S) [Mass conc ratio] 1.8 Normal 1.1-2.2 [facility] Comment on above: Performed By: #### 2 [id number] #### [facility] [address] [place] [address] ALP [Catalytic activity/Vol] 73 Int._Unit/L Normal 21-98 [facility] Comment on above: Performed By: #### 2 [id number] #### [facility] [address] [place] [address] ALT No additional P-5'-P [Catalytic activity/Vol] 16 Int._Unit/L Normal 6-46 [facility] Comment on above: Performed By: #### 2 [id number] #### [facility] [address] [place] [address] Anion gap [Moles/Vol] 12 mmol/L Normal 6-16 [facility] Comment on above: Performed By: #### 2 [id number] #### [facility] [address] [place] [address] AST [Catalytic activity/Vol] 15 Int._Unit/L Normal 5-43 [facility] Comment on above: Performed By: #### 2 [id number] #### [facility] [address] [place] [address] Bilirubin [Mass/Vol] 0.9 mg/dL Normal 0.0-1.1 [facility] Comment on above: Performed By: #### 2 [id number] #### [facility] [address] [place] [address] Calcium [Mass/Vol] 9.2 mg/dL Normal 8.9-11.1 [facility] Comment on above: Performed By: #### 2 [id number] #### [facility] [address] [place] [address] Chloride [Moles/Vol] 106 mmol/L Normal 101-111 [facility] Comment on above: Performed By: #### 2 [id number] #### [facility] [address] [place] [address] CO2 [Moles/Vol] 24 mmol/L Normal 21-31 [facility] Comment on above: Performed By: #### 2 [id number] #### [facility] [address] [place] [address] Creatinine [Mass/Vol] 0.9 mg/dL Normal 0.5-1.3 [facility] Comment on above: Performed By: #### 2 [id number] #### [facility] [address] [place] [address] Globulin (S) [Mass/Vol] 2.3 g/dL Normal 1.4-4.0 [facility] Comment on above: Performed By: #### 2 [id number] #### [facility] [address] [place] [address] Glucose [Mass/Vol] 119 mg/dL Normal 55-199 [facility] Comment on above: Performed By: #### 2 [id number] #### [facility] [address] [place] [address] Potassium [Moles/Vol] 4.0 mmol/L Normal 3.5-5.3 [facility] Comment on above: Performed By: #### 2 [id number] #### [facility] [address] [place] [address] Protein [Mass/Vol] 6.4 g/dL Normal 6.0-7.8 [facility] Comment on above: Performed By: #### 2 [id number] #### [facility] [address] [place] [address] Sodium [Moles/Vol] 138 mmol/L Normal 135-145 [facility] Comment on above: Performed By: #### 2 [id number] #### [facility] [address] [place] [address] Urea nitrogen [Mass/Vol] 28 mg/dL High 5-21 [facility] Comment on above: Performed By: #### 2 [id number] #### [facility] [address] [place] [address] Urea nitrogen/Creatinine [Mass ratio] 31 No Units High 10-20 [facility] Comment on above: Performed By: #### 2 [id number] #### [facility] [address] [place] [address] [facility] CBC W/ AUTO DIFFon 06-26 EOSINOPHILS/100 LEUKOCYTES:NFR:PT:BLD: QN:AUTOMATED COUNT 3.5 % 0.0 - 8.0 % [facility] EOSINOPHILS:NCNC:PT:BL D:QN: 0.2 [facility] BASOPHILS/LEUKOCYTES:N FR.DF:PT:BLD:QN:AUTOMA BETHEL COUNT 0 [facility] ERYTHROCYTE MEAN CORPUSCULAR HEMOGLOBIN CONCENTRATION:MCNC:PT: RBC:QN 34.1 [facility] ERYTHROCYTE MEAN CORPUSCULAR HEMOGLOBIN:ENTMASS:PT: RBC:QN 30.5 pg 27.0 - 34.0 pg [facility] ERYTHROCYTE MEAN CORPUSCULAR VOLUME:ENTVOL:PT:RBC:Q N:AUTOMATED COUNT 89.5 fL 80.0 - 100.0 fL [facility] ERYTHROCYTES:NCNC:PT:B LD:QN:AUTOMATED COUNT 3.6 Low [facility] HEMOGLOBIN:MCNC:PT:BLD :QN: 11.1 Low [facility] LEUKOCYTES 5.8 [facility] MONOCYTES:NCNC:PT:BLD: QN:AUTOMATED COUNT 0.5 [facility] NEUTROPHILS:NCNC:PT:BL D:QN:AUTOMATED COUNT 3.8 [facility] Interpretation and review of laboratory results Abnormal [facility] LYMPHOCYTES:NCNC:PT:BL D:QN: 1.3 [facility] Platelets (Bld) [#/Vol] 203 10*3/uL [facility] Original Ordering Provider: ELO WILLS [facility] HEMATOLOGYOrdered By: SYSTEM SYSTEM on 07-11-2024 Basophils/100 WBC (Bld) 0.8 % Normal 0.0 - 2.0 % [facility] Basophils/Leukocytes Auto (Bld) [Pure # fraction] 0.0 E9/L Normal 0.0 - 0.2 E9/L [facility] Eosinophils (Bld) [#/Vol] 0.2 E9/L Normal 0.0 - 0.5 E9/L [facility] Eosinophils/100 WBC (Bld) 3.5 % Normal 0.0 - 8.0 % [facility] Erythrocyte distribution width (RBC) [Ratio] 15.6 % High 10.9 - 14.2 % [facility] Hematocrit (Bld) [Volume fraction] 32.5 % Low 37.7 - 49.0 % [facility] Hemoglobin (Bld) [Mass/Vol] 11.1 g/dL Low 13.5 - 17.5 gm/dL [facility] Lymphocytes (Bld) [#/Vol] 1.3 E9/L Normal 1.0 - 4.0 E9/L [facility] Lymphocytes/100 WBC (Bld) 22.2 % Normal 14.0 - 50.0 % [facility] MCH (RBC) [Entitic mass] 30.5 pg Normal 27.0 - 34.0 pg [facility] MCHC (RBC) [Mass/Vol] 34.1 g/dL Normal 31.4 - 36.0 gm/dL [facility] MCV (RBC) [Entitic vol] 89.5 fL Normal 80.0 - 100.0 fL [facility] Monocytes (Bld) [#/Vol] 0.5 E9/L Normal 0.2 - 1.0 E9/L [facility] Monocytes/100 WBC (Bld) 8.3 % Normal 4.0 - 14.0 % [facility] Neutrophils (Bld) [#/Vol] 3.8 E9/L Normal 2.0 - 7.5 E9/L [facility] Neutrophils/100 WBC (Bld) 65.2 % Normal 36.0 - 75.0 % [facility] Platelet 203.0 E9/L Normal 150.0 - 500.0 E9/L [facility] Platelet mean volume (Bld) [Entitic vol] 8.3 fL Normal 6.4 - 10.8 fL [facility] RBC (Bld) [#/Vol] 3.6 E12/L Low 4.3 - 5.9 E12/L [facility] WBC corrected for nucl RBC Auto (Bld) [#/Vol] 5.8 E9/L Normal 4.0 - 11.0 E9/L [facility] [id number] 07-11-2024 HbA1c (Bld) [Mass fraction] 6.3 % High <=5.9 [facility] Comment on above: Performed By: #### 7 [id number] #### [facility] [address] [place] [address] Ironon 07-11-2024 Iron [Mass/Vol] 38 microgram/dL Normal 35-153 [facility] Comment on above: Performed By: #### 2 [id number] #### [facility] [address] [place] [address] Laboratory - Chemistry and C hemistry - challengeOrdered By: SYSTEM SYSTEM on 07-11-2024 Bilirubin Ql (U) Negative Normal Negativemg/ d L [facility] UA Auto SS Glucose Ql (U) 4+ mg/dL Invalid Interpretation Code Negativemg/d L [facility] UA Auto SS pH (U) 5.5 *NA* (07/11/24 1:55 PM) Invalid Interpretation Code 5.0 - 9.0 [facility] UA Auto SS Specific gravity (U) [Rel density] 1.023 *NA* (07/11/24 1:55 PM) Invalid Interpretation Code 1.005 - 1.030 [facility] UA Auto SS Urobilinogen (U) [Mass/Vol] Negative Normal Negativemg/d L [facility] UA Auto SS Laboratory - Specimen inform ationOrdered By: SYSTEM SYSTEM on 07-11-2024 Clarity (U) Clear (07/11/24 1:55 PM) Normal Clear [facility] UA Auto SS Laboratory - UrinalysisOrder ed By: SYSTEM SYSTEM on 07-11-2024 Hemoglobin Auto test strip (U) [Mass/Vol] Negative Normal Negativemg/d L [facility] UA Auto SS Ketones Auto test strip Ql (U) Negative Normal Negativemg/d L [facility] UA Auto SS Leukocyte esterase Auto test strip Ql (U) Negative Normal NegativeLeu/ uL [facility] UA Auto SS Nitrite Auto test strip Ql (U) Negative Normal Negativemg/d L [facility] UA Auto SS Protein Ql (U) Negative Normal Negativemg/d L [facility] UA Auto SS Lipid Panelon 07-11-2024 Cholesterol [Mass/Vol] 96 mg/dL Low 120-200 [facility] Comment on above: Performed By: #### 2 [id number] #### [facility] [address] [place] [address] Cholesterol in HDL [Mass/Vol] 38 mg/dL Invalid Interpretation Code [facility] Comment on above: Result Comment: '>= 60 LOW RISK' '<= 40 HIGH RISK' Performed By: #### 2 [id number] #### [facility] [address] [place] [address] Cholesterol in LDL [Mass/Vol] 44 mg/dL Normal <=129 [facility] Comment on above: Performed By: #### 2 [id number] #### [facility] [address] [place] [address] Cholesterol in VLDL [Mass/Vol] 14 mg/dL Normal 7-40 [facility] Comment on above: Performed By: #### 2 [id number] #### [facility] [address] [place] [address] Triglyceride [Mass/Vol] 68 mg/dL Normal <=149 [facility] Comment on above: Performed By: #### 2 [id number] #### [facility] [address] [place] [address] No Panel InformationOrdered By: Talita Candelario on 07-11-2024 UA Spec Desc Clean Catch (07/11/24 1:55 PM) Normal [facility] UA Auto SS U Microalbon 07-11-2024 Albumin DL <= 20 mg/L (U) [Mass/Vol] 0.8 mg/dL Normal 0.0-1.9 [facility] Comment on above: Performed By: #### 1 [id number] #### [facility] [address] [place] [address] UA with Cult Rflxon 07-12-19 Bilirubin Ql (U) Negative Normal Negative [facility] Comment on above: Performed By: #### 4 [id number] #### [facility] [address] [place] [address] Order Comment: Farhan daly, screen shot this page and put a note on it to be credited.07/11/2024 18:05:55 EDT [id number] Performed By: #### 4 [id number] #### [facility] [address] [place] [address] Clarity (U) Clear Normal Clear [facility] Comment on above: Performed By: #### 4 [id number] #### [facility] [address] [place] [address] Order Comment: Farhan daly, screen shot this page and put a note on it to be credited.07/11/2024 18:05:55 EDT [id number] Performed By: #### 4 [id number] #### [facility] [address] [place] [address] Color (U) Yellow Normal Yellow [facility] Comment on above: Result Comment: Micr oscopic readings are only performed on those samples that meet specific criteria set forth by [facility]. Performed By: #### 4 [id number] #### [facility] [address] [place] [address] Order Comment: Farhan daly, screen shot this page and put a note on it to be credited.07/11/2024 18:05:55 EDT [id number] Performed By: #### 4 [id number] #### [facility] [address] [place] [address] Glucose Ql (U) 4+ mg/dL Abnormal Negative [facility] Comment on above: Performed By: #### 4 [id number] #### [facility] [address] [place] [address] Order Comment: Farhan daly, screen shot this page and put a note on it to be credited.07/11/2024 18:05:55 EDT [id number] Performed By: #### 4 [id number] #### [facility] [address] [place] [address] Hemoglobin Auto test strip (U) [Mass/Vol] Negative Normal Negative [facility] Comment on above: Performed By: #### 4 [id number] #### [facility] [address] [place] [address] Order Comment: Dupli shweta order, screen shot this page and put a note on it to be credited.07/11/2024 18:05:55 EDT [id number] Performed By: #### 4 [id number] #### [facility] [address] [place] [address] Ketones Auto test strip Ql (U) Negative Normal Negative [facility] Comment on above: Performed By: #### 4 [id number] #### [facility] [address] [place] [address] Order Comment: Dupli shweta order, screen shot this page and put a note on it to be credited.07/11/2024 18:05:55 EDT [id number] Performed By: #### 4 [id number] #### [facility] [address] [place] [address] Leukocyte esterase Auto test strip Ql (U) Negative Normal Negative [facility] Comment on above: Performed By: #### 4 [id number] #### [facility] [address] [place] [address] Order Comment: Dupli shweta order, screen shot this page and put a note on it to be credited.07/11/2024 18:05:55 EDT [id number] Performed By: #### 4 [id number] #### [facility] [address] [place] [address] Nitrite Auto test strip Ql (U) Negative Normal Negative [facility] Comment on above: Performed By: #### 4 [id number] #### [facility] [address] [place] [address] Order Comment: Dupli shweta order, screen shot this page and put a note on it to be credited.07/11/2024 18:05:55 EDT [id number] Performed By: #### 4 [id number] #### [facility] [address] [place] [address] pH (U) 5.5 [pH] Invalid Interpretation Code 5.0-9.0 [facility] Comment on above: Performed By: #### 4 [id number] #### [facility] [address] [place] [address] Order Comment: Farhan daly, screen shot this page and put a note on it to be credited.07/11/2024 18:05:55 EDT [id number] Performed By: #### 4 [id number] #### [facility] [address] [place] [address] Protein Ql (U) Negative Normal Negative [facility] Comment on above: Performed By: #### 4 [id number] #### [facility] [address] [place] [address] Order Comment: Farhan daly, screen shot this page and put a note on it to be credited.07/11/2024 18:05:55 EDT [id number] Performed By: #### 4 [id number] #### [facility] [address] [place] [address] Specific gravity (U) [Rel density] 1.023 Invalid Interpretation Code 1.005-1.030 [facility] Comment on above: Performed By: #### 4 [id number] #### [facility] [address] [place] [address] Order Comment: Farhan daly, screen shot this page and put a note on it to be credited.07/11/2024 18:05:55 EDT [id number] Performed By: #### 4 [id number] #### [facility] [address] [place] [address] Urobilinogen (U) [Mass/Vol] Negative Normal Negative [facility] Comment on above: Performed By: #### 4 [id number] #### [facility] [address] [place] [address] Order Comment: Farhan daly, screen shot this page and put a note on it to be credited.07/11/2024 18:05:55 EDT [id number] Performed By: #### 4 [id number] #### [facility] [address] [place] [address] Type of Urine collection method Clean Catch Normal [facility] Comment on above: Performed By: #### 4 [id number] #### [facility] [address] [place] [address] Order Comment: Farhan daly, screen shot this page and put a note on it to be credited.07/11/2024 18:05:55 EDT [id number] Performed By: #### 4 [id number] #### [facility] [address] [place], [place] [address] URINALYSISOrdered By: SYSTEM SYSTEM on 07-11-2024 Color (U) Yellow 1 (07/11/24 1:55 PM) Normal Yellow [facility] UA Auto SS Comment on above: Interpretive Data: M icroscopic readings are only performed on those samples that meet specific criteria set forth by [facility]. Color (U) Yellow 2 (07/11/24 1:55 PM) Normal Yellow [facility] UA Auto SS Comment on above: Interpretive Data: M icroscopic readings are only performed on those samples that meet specific criteria set forth by [facility]. eGFRon 07-11-2024 eGFR 87 mL/min/1.73 m2 Normal >=59 [facility] Comment on above: Performed By: #### 1 [id number] #### [facility] [address] [place] [address] Aaron 04-11-2024 L - -------- Specimen: [id number] Received: 04/12/24 Status: SULY Mendez Num: [id number] Spec Type: Surgical Subm Dr: Sabino Mauricio DO Tissues: A Esophagus Biopsy (DISTAL ESOPHAGUS BX X2) B Colon Biopsy (RECTAL SIGMOID JUNCTION POLY) Procedures: HE/4, Gross/Micro L4/2 -------- Age/ Patient Sex Location Account Attending Physician -------- Kimmy Mcarthur 78/ LABEL [id number] Sabino Mauricio DO -------- SPEC NUM: [id number] RECD: 04/12/24 STATUS: SULY MENDEZ NUM: [id number] MALKA: 04/11/24-[address]: Sabino Mauricio DO ENTERED: 04/12/[address] [facility] [address]: Raza Ward SPEC TYPE: Surgical DEPT: [facility]IN DICKERSON ENTERED BY: [id number] RECV BY: [id number] ORDERED: HE/4, Gross/Micro L4/2 ORDERED: HE/4, Gross/Micro L4/2 Pathological Diagnosis A. 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 - No evidence of dysplasia or malignancy identified. B. Colon, rectosigmoid junction, polypectomy: - Tubular adenoma. Clinical Information Hiatal hernia, rectal sigmoid polyp, diverticulosis Gross Description Part A is received in formalin labeled with the patients name, date of , and distal esophagus biopsy are two pale ivan, focally erythematous, feathery, 0.4 and 0.6 cm in greatest dimension tissue bits. The specimen is entirely submitted in a single cassette. (1, ns, 2530 A) Part B is received in formalin labeled with the patients name, date of , and rectal sigmoid junction polypectomy is a patel-ivan, focally erythematous, friable, 0.4 cm in greatest dimension polypoid fragment. The specimen is entirely submitted in a single cassette. (1, ns, 25 B) -------- Specimen: [id number] Received: 04/12/24 Status: SULY Mendez Num: [id number] Spec Type: Surgical Subm Dr: Sabino Mauricio DO Tissues: A Esophagus Biopsy (DISTAL ESOPHAGUS BX X2) B Colon Biopsy (RECTAL SIGMOID JUNCTION POLY) Procedures: HE/4, Gross/Micro L4/2 -------- Patient: Kimmy Mcarthur [id number] (Continued) -------- Specimen: [id number] Received: 04/12/24 (Continued) Signed (signature on file) Jasiel Sanon MD 04/13/24 1225 -------- Specimen: [id number] Received: 04/12/24 Status: SULY Mendez Num: [id number] Spec Type: Surgical Subm Dr: Sabino Mauricio DO Tissues: A Esophagus Biopsy (DISTAL ESOPHAGUS BX X2) B Colon Biopsy (RECTAL SIGMOID JUNCTION POLY) Procedures: HE/Polly, Gross/Micro L4/2 -------- Patient: LyubovKimmy A [id number] (Continued) -------- Specimen: [id number] Received: 04/12/24 (Continued) Microscopic Description A B:Microscopic examination is performed. CPT Codes 98020 x2 -------- -------- Specimen: [id number] Received: 04/12/240716 Status: SULY Mendez Num: [id number] Spec Type: Surgical Subm Dr: Sabino Mauricio DO Tissues: A Esophagus Biopsy (DISTAL ESOPHAGUS BX X2) B Colon Biopsy (RECTAL SIGMOID JUNCTION POLY) Procedures: BENIGNO/Polly Gross/Micro L4/2 -------- Patient: Kimmy Mcarthur [id number] (Continued) -------- Signed (signature on file) Jasiel Sanon MD 04/13/24 1225 Normal [facility] Office Visiton 03-14-2024 Follow-up visit [id number] Kimmy Mcarthur 1945 M Date Provider Department Center 03/14/2024 Kacie-NATASHA CAMPO EBONY Roland Family History Problem Relation Age of Onset Cancer Father Diabetes Father Family Status - Relation Status Age at Father Level of Service:65945 CA OFFICE/OUTPATIENT ESTABLISHED MOD MDM 30 MIN Normal [facility] MLR HEMOGLOBIN A1Con 024 Glucose [Mass/Vol] 180 mg/dL [facility] HbA1c (Bld) [Mass fraction] 7.9 % High 4.5 - 6.2 % [facility] Comment on above: ADA RECOMMENDED LIMI T 4.0 - 6.0 ADA THERAPEUTIC TARGET < 7.0 ACTION SUGGESTED > 7.0 Interpretation and review of laboratory results Abnormal [facility] CLINISYNC [facility] 36on 02-13-2024 36 His LDL from 12/07/2023 is 46. Would you still like for me to try to get LeOcscvio approved for him? Normal [facility] XR SPINE THORACIC 3 VWSon XR SPINE THORACIC 3 VWS XR SPINE THORACIC 3 VWS XR SPINE THORACIC 3 VWS: 01/11/2024 PROVIDED [...] Jami Ko MD on 01/11/2024 4:27 PM [facility] 36on 01-04-2024 36 PCP Marisol Boyce called and said she saw patient today and he reported dizziness with position changes. His med list said lisinopril 5mg but she saw our last office note has him on 20mg. Can you please call him and have him get his bottles and go over exactly what he's taking over the phone? Once you get what dose of lisinopril he's taking, can you please call Marisol at [phone] and let her know. THANKS!!! 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 There were no other areas of concern. I would recommend continued medical therapy with no interventions needed at this time. Thank you Patient's made aware. Normal [facility] LIVER PANELon 12-07-2023 Albumin [Mass/Vol] 4.0 g/dL Normal 3.2-5.3 [facility] Comment on above: Performed By: #### M ALBU #### [facility] ([id number]) [address], [address] [place] [address] ALP [Catalytic activity/Vol] 63 U/L Normal 39-130 [facility] Comment on above: Performed By: #### M ALBU #### [facility] ([id number]) [address], [address] [place] [address] ALT [Catalytic activity/Vol] 39 U/L Normal 0-40 [facility] Comment on above: Performed By: #### M ALBU #### [facility] ([id number]) [address], [address] [place] [address] AST [Catalytic activity/Vol] 18 U/L Normal 0-41 [facility] Comment on above: Performed By: #### M ALBU #### [facility] ([id number]) [address], [address] [place] [address] Bilirubin [Mass/Vol] 1.1 mg/dL Normal 0.3-1.2 [facility] Comment on above: Performed By: #### M ALBU #### [facility] ([id number]) [address], [address] [place] [address] Bilirubin.direct [Mass/Vol] 0.2 mg/dL Normal 0.0-0.4 [facility] Comment on above: Performed By: ###Erik HENRIQUEZ #### [facility] ([id number]) [address], [address] [place] [address] Protein [Mass/Vol] 6.4 g/dL Normal 6.0-8.0 [facility] Comment on above: Performed By: ###Erik HENRIQUEZ #### [facility] ([id number]) [address], [address] [place] [address] Lipid 1996 panelon 4 Cholesterol [Mass/Vol] 108 mg/dL Low 150-200 [facility] Comment on above: Performed By: ###Erik HENRIQUEZ #### [facility] ([id number]) [address], [address] [place] [address] Cholesterol in HDL [Mass/Vol] 43 mg/dL Normal >39 [facility] Comment on above: Result Comment: HDL <40 mg/dL - High Risk HDL > or = 40mg/dL- Desirable HDL >60 mg/dL - Negative Risk Performed By: #### Brionna HENRIQUEZ #### [facility] ([id number]) [address], [address] [place] [address] Cholesterol in LDL [Mass/Vol] 46 mg/dL Normal <130 [facility] Comment on above: Result Comment: LDL <100 mg/dL - Desirable LDL >160 mg/dL - High Risk Performed By: #### Brionna HENRIQUEZ #### [facility] ([id number]) [address], [address] [place] [address] Cholesterol in VLDL [Mass/Vol] 19 mg/dL Normal 0-30 [facility] Comment on above: Performed By: #### M ALBU #### [facility] ([id number]) [address], [address] [place] [address] CHOLESTEROL:HDL 2.5 Normal 1.0-5.0 [facility] Comment on above: Performed By: #### M ALBU #### [facility] ([id number]) [address], [address] [place] [address] Triglyceride [Mass/Vol] 95 mg/dL Normal 27-150 [facility] Comment on above: Performed By: #### M ALBU #### [facility] ([id number]) [address], [address] [place] [address] BASIC METABOLIC PANLon 11-28 Anion gap [Moles/Vol] 8 mmol/L Normal 5-15 [facility] Comment on above: Performed By: #### M ALBU #### [facility] ([id number]) [address], [address] [place] [address] Calcium [Mass/Vol] 9.2 mg/dL Normal 8.5-10.5 [facility] Comment on above: Performed By: #### M ALBU #### [facility] ([id number]) [address], [address] [place] [address] Chloride [Moles/Vol] 104 mmol/L Normal 98-109 [facility] Comment on above: Performed By: #### M ALBU #### [facility] ([id number]) [address], [address] [place] [address] CO2 [Moles/Vol] 27 mmol/L Normal 22-32 [facility] Comment on above: Performed By: #### M ALBU #### [facility] ([id number]) [address], [address] [place] [address] Creatinine [Mass/Vol] 1.01 mg/dL Normal 0.60-1.30 [facility] Comment on above: Result Comment: METH OD TRACEABLE TO IDMS STANDARD Performed By: #### M ALBU #### [facility] ([id number]) [address], [address] [place] [address] GFR/1.73 sq M.predicted among non-blacks MDRD (S/P/Bld) [Vol rate/Area] 77 mL/min/{1.73_m2} Normal >59 [facility] Comment on above: Result Comment: Reported eGFR is based on the CKD-EPI 2020 equation that does not use a race coefficient. Performed By: #### M ALBU #### [facility] ([id number]) [address], [address] [place] [address] Glucose [Mass/Vol] 187 mg/dL High 65-99 [facility] Comment on above: Performed By: #### M ALBU #### [facility] ([id number]) [address], [address] [place] [address] Potassium [Moles/Vol] 4.2 mmol/L Normal 3.5-5.0 [facility] Comment on above: Performed By: #### M ALBU #### [facility] ([id number]) [address], [address] [place] [address] Sodium [Moles/Vol] 139 mmol/L Normal 134-146 [facility] Comment on above: Performed By: #### M ALBU #### [facility] ([id number]) [address], [address] [place] [address] Urea nitrogen [Mass/Vol] 22 mg/dL Normal 5-27 [facility] Comment on above: Performed By: #### M ALBU #### [facility] ([id number]) [address], [address] [place] [address] Basic metabolic 1998 panelon 11-29-2023 Anion gap [Moles/Vol] 8 mmol/L 5 - 15 mmol/L [facility] Calcium [Mass/Vol] 9.2 mg/dL 8.5 - 10. 5 mg/dL [facility] Chloride [Moles/Vol] 104 mmol/L 98 - 10 9 mmol/L [facility] CO2 [Moles/Vol] 27 mmol/L 22 - 32 mmol/L [facility] Creatine [Mass/Vol] 1.01 mg/dL 0.60 - 1 .30 mg/dL [facility] Comment on above: METHOD TRACEABLE TO IDVA STANDARD GFR/1.73 sq M.predicted among non-blacks MDRD (S/P/Bld) [Vol rate/Area] 77 mL/min/{1.73_m2} - PINF [facility] Comment on above: Reported eGFR is based on the CKD-EPI 2020 equation that does not use a race coefficient. PERFORMED AT [facility] [address],[place] [address] Glucose [Mass/Vol] 187 mg/dL High 65 - 99 mg/dL [facility] Interpretation and review of laboratory results Abnormal [facility] Potassium [Moles/Vol] 4.2 mmol/L 3.5 - 5.0 mmol/L [facility] Sodium [Moles/Vol] 139 mmol/L 134 - 146 mmol/L [facility] Urea nitrogen [Mass/Vol] 22 mg/dL 5 - 27 mg/dL [facility] HGB A1C (GLYCO-HGB)on 2023 Glucose [Mass/Vol] 192 mg/dL Normal [facility] Comment on above: Performed By: #### M MARTINEZ #### [facility] ([id number]) [address], [address] [place] [address] HbA1c (Bld) [Mass fraction] 8.3 % High 4.4-5.6 [facility] Comment on above: Result Comment: NOTE ADA Guidelines Result HgbA1c Normal : less than 5.7 % Prediabetes : 5.7 % to 6.4 % Diabetes : > 6.4 % Use with caution in patients with abnormal hemoglobin variants as the half-life of red blood cells and in vivo glycation rates are affected. Performed By: #### M MARTINEZ #### [facility] ([id number]) [address], [address] [place] [address] Office Visiton 11-29-2023 Follow-up visit [id number] Rush Mcarthurothy Laura 1945 Date Provider Department Center 11/29/[address] [facility] CAMPO CARD [facility] Family History Problem Relation Age of Onset Cancer Father Diabetes Father Family Status - Relation Status Age at Father Level of Service:83403 CA OFFICE/OUTPATIENT ESTABLISHED MOD MDM 30 MIN Normal [facility] Prostate specific Ag [Mass/V ol]on 11-29-2023 PROSTATIC SPEC ANT 3.12 ng/mL Normal 0.00-4.00 [facility] Comment on above: Result Comment: The method used for this test is [employer] DXI chemiluminescent immunoassay. Values obtained by different assay methods cannot be used interchangeably. Performed By: #### M MARTINEZ #### [facility] ([id number]) [address] [place] [address], [address] [place] [address] XR CHEST 2 VWSon 10-11-2023 XR CHEST [...] airways disease/bronchitis. Difficult to exclude acute superimposed infectious/inflammato ry pneumonitis; CT correlation may be prudent Finalized by Sabino Valentin MD on 10/11/2023 12:16 PM Normal [facility] FREE AND TOTAL PSAon 024 % FREE PSA 34.9 Normal [facility] Comment on above: Result Comment: Percent [...] BPH. Performed By: #### F TPSA #### [facility] ([id number]) [address] [place] [address] FREE PSA 1.13 ng/mL Normal [facility] Comment on above: Performed By: #### F TPSA #### [facility] ([id number]) [address] [place] [address] PROSTATIC SPEC ANT 3.24 ng/mL Normal 0.00-4.00 [facility] Comment on above: Result Comment: The method used for this test is [employer] DXI chemiluminescent immunoassay. Values obtained by different assay methods cannot be used interchangeably. Performed By: #### F TPSA #### [facility] ([id number]) [address] [place] [address] CBC AND AUTO DIFFon 05-04-19 24 ABSOLUTE BASOPHIL 0.0 X10E9/L Normal 0.0-0.2 [facility] Comment on above: Performed By: #### C MP, 2498-4, 34054-1, 2276-4, CBCA #### [facility] ([id number]) [address] [place] [address] ABSOLUTE NEUTROPHIL 3.8 X10E9/L Normal 1.5-6.6 [facility] Comment on above: Performed By: #### C MP, 2498-4, 34039-5, 2276-4, CBCA #### [facility] ([id number]) [address], [facility] [address] [place] [address] Basophils/100 WBC (Bld) 0.7 % Normal [facility] Comment on above: Performed By: #### C MP, 2498-4, 90842-0, 2276-4, CBCA #### [facility] ([id number]) [address], [facility] [address] [place] [address] Eosinophils (Bld) [#/Vol] 0.3 10*3/uL Normal 0.0-0.4 [facility] Comment on above: Performed By: #### C ROHINI, 2498-4, 08775-6, 2276-4, CBCA #### [facility] ([id number]) [address], [facility] [address] [place] [address] Eosinophils/100 WBC (Bld) 4.1 % Normal [facility] Comment on above: Performed By: #### C ROHINI, 2498-4, 40665-1, 2275-, CBCA #### [facility] ([id number]) [address] [place] [address] Erythrocyte distribution width (RBC) [Ratio] 13.4 % Normal 11.5-15.0 [facility] Comment on above: Performed By: #### C ROHINI, 2498-4, 65900-5, 6-4, CBCA #### [facility] ([id number]) [address] [place] [address] Hematocrit (Bld) [Volume fraction] 39.3 % Normal 39-49 [facility] Comment on above: Performed By: #### C MP, 2498-4, 65452-6, 2276-4, CBCA #### [facility] ([id number]) [address], [facility] [address] [place] [address] Hemoglobin (Bld) [Mass/Vol] 13.5 g/dL Normal 13.0-17.0 [facility] Comment on above: Performed By: #### C ROHINI, 2498-4, 62679-9, 2276-4, CBCA #### [facility] ([id number]) [address], [facility] [address] [place] [address] Lymphocytes (Bld) [#/Vol] 2.4 10*3/uL Normal 1.0-3.5 [facility] Comment on above: Performed By: #### C ROHINI, 2498-4, 60657-1, 2276-4, CBCA #### [facility] ([id number]) [address], [facility] [address] [place] [address] Lymphocytes/100 WBC (Bld) 34.3 % Normal [facility] Comment on above: Performed By: #### C ROHINI, 2498-4, 16433-8, 2275-4, CBCA #### [facility] ([id number]) [address], [facility] [address] [place] [address] MCH (RBC) [Entitic mass] 30.6 pg Normal 27-34 [facility] Comment on above: Performed By: #### C ROHINI, 2498-4, 59255-5, 2275-4, CBCA #### [facility] ([id number]) [address], [facility] [address] [place] [address] MCHC (RBC) [Mass/Vol] 34.3 g/dL Normal 32-36 [facility] Comment on above: Performed By: #### C ROHINI, 2498-4, 41656-4, 2276-4, CBCA #### [facility] ([id number]) [address], [facility] [address] [place] [address] MCV (RBC) [Entitic vol] 89 fL Normal 80-100 [facility] Comment on above: Performed By: #### C MP, 2498-4, 70153-4, 2276-4, CBCA #### [facility] ([id number]) [address], [address] [place] [address] Monocytes (Bld) [#/Vol] 0.5 10*3/uL Normal 0-0.9 [facility] Comment on above: Performed By: #### C MP, 2498-4, 70998-2, 2276-4, CBCA #### [facility] ([id number]) [address], [address] [place] [address] Monocytes/100 WBC (Bld) 7.3 % Normal [facility] Comment on above: Performed By: #### C MP, 2498-4, 38200-4, 2276-4, CBCA #### [facility] ([id number]) [address], [facility] [address] [place] [address] Neutrophils/100 WBC (Bld) 53.6 % Normal [facility] Comment on above: Performed By: #### C MP, 2498-4, 75832-3, 2276-4, CBCA #### [facility] ([id number]) [address], [facility] [address] [place] [address] Platelet mean volume (Bld) [Entitic vol] 8.1 fL Normal 7-12 [facility] Comment on above: Performed By: #### C MP, 2498-4, 93494-6, 2276-4, CBCA #### [facility] ([id number]) [address], [address] [place] [address] Platelets (Bld) [#/Vol] 169 10*3/uL Normal 150-450 [facility] Comment on above: Performed By: #### C MP, 2498-4, 67245-1, 2276-4, CBCA #### [facility] ([id number]) [address], [address] [place] [address] RBC COUNT 4.41 X10E12/L Normal 4.10-5.70 [facility] Comment on above: Performed By: #### C ROHINI, 2498-4, 76412-0, 2276-4, CBCA #### [facility] ([id number]) [address], [address] [place] [address] WBC (Bld) [#/Vol] 7.0 10*3/uL Normal 4.0-11.0 [facility] Comment on above: Performed By: #### C ROHINI, 2498-4, 37983-4, 2276-4, CBCA #### [facility] ([id number]) [address], [address] [place] [address] COMPREHENSIVE METABOLIC PANE Aaron 05-04-2023 Albumin [Mass/Vol] 4.0 g/dL Normal 3.2-5.3 [facility] Comment on above: Performed By: #### C ROHINI, 2498-4, 90075-3, 2276-4, CBCA #### [facility] ([id number]) [address], [address] [place] [address] ALP [Catalytic activity/Vol] 89 U/L Normal 39-130 [facility] Comment on above: Performed By: #### C ROHINI, 2498-4, 24529-0, 2276-4, CBCA #### [facility] ([id number]) [address], [address] [place] [address] ALT [Catalytic activity/Vol] 15 U/L Normal 0-40 [facility] Comment on above: Performed By: #### C ROHINI, 2498-4, 88682-0, 2276-4, CBCA #### [facility] ([id number]) [address], [address] [place] [address] Anion gap [Moles/Vol] 9 mmol/L Normal 5-15 [facility] Comment on above: Performed By: #### C MP, 2498-4, 34007-5, 2276-4, CBCA #### [facility] ([id number]) [address], [address] [place] [address] AST [Catalytic activity/Vol] 13 U/L Normal 0-41 [facility] Comment on above: Performed By: #### C ROHINI, 2498-4, 32090-9, 2276-4, CBCA #### [facility] ([id number]) [address], [address] [place] [address] Bilirubin [Mass/Vol] 1.1 mg/dL Normal 0.3-1.2 [facility] Comment on above: Performed By: #### C ROHINI, 2498-4, 17620-1, 2276-4, CBCA #### [facility] ([id number]) [address], [address] [place] [address] Calcium [Mass/Vol] 8.9 mg/dL Normal 8.5-10.5 [facility] Comment on above: Performed By: #### C ROHINI, 2498-4, 23108-8, 2276-4, CBCA #### [facility] ([id number]) [address], [address] [place] [address] Chloride [Moles/Vol] 104 mmol/L Normal 98-109 [facility] Comment on above: Performed By: #### C ROHINI, 2498-4, 80846-4, 2276-4, CBCA #### [facility] ([id number]) [address], [address] [place] [address] CO2 [Moles/Vol] 28 mmol/L Normal 22-32 [facility] Comment on above: Performed By: #### C ROHINI, 2498-4, 34816-2, 2276-4, CBCA #### [facility] ([id number]) [address], [address] [place] [address] Creatinine [Mass/Vol] 0.80 mg/dL Normal 0.60-1.30 [facility] Comment on above: Result Comment: METH OD TRACEABLE TO IDMS STANDARD Performed By: #### C ROHINI, 2498-4, 85652-7, 2276-4, CBCA #### [facility] ([id number]) [address], [address] [place] [address] eGFR (CKD-EPI) NON-RACE DEPENDENT >90 Normal >59 [facility] Comment on above: Result Comment: Reported eGFR is based on the CKD-EPI 2020 equation that does not use a race coefficient. Performed By: #### C ROHINI, 2498-4, 05712-3, 2275-4, CBCA #### [facility] ([id number]) [address], [address] [place] [address] Glucose [Mass/Vol] 90 mg/dL Normal 65-99 [facility] Comment on above: Performed By: #### C ROHINI, 2498-4, 72495-3, 2275-4, CBCA #### [facility] ([id number]) [address], [address] [place] [address] Potassium [Moles/Vol] 3.2 mmol/L Low 3.5-5.0 [facility] Comment on above: Performed By: #### C ROHINI, 2498-4, 34475-8, 2275-4, CBCA #### [facility] ([id number]) [address], [address] [place] [address] Protein [Mass/Vol] 6.3 g/dL Normal 6.0-8.0 [facility] Comment on above: Performed By: #### C ROHINI, 2498-4, 13964-2, 2276-4, CBCA #### [facility] ([id number]) [address], [address] [place] [address] Sodium [Moles/Vol] 141 mmol/L Normal 134-146 [facility] Comment on above: Performed By: #### C MP, 2498-4, 41138-4, 2276-4, CBCA #### [facility] ([id number]) [address], [address] [place] [address] Urea nitrogen [Mass/Vol] 20 mg/dL Normal 5-27 [facility] Comment on above: Performed By: #### C MP, 2498-4, 83170-5, 2276-4, CBCA #### [facility] ([id number]) [address], [address] [place] [address] Comprehensive metabolic pane aaron 05-04-2023 Albumin [Mass/Vol] 4.0 g/dL 3.2 - 5.3 g/dL [facility] ALP [Catalytic activity/Vol] 89 U/L 39 - 130 U/L [facility] ALT No additional P-5'-P [Catalytic activity/Vol] 15 U/L 0 - 40 U/L [facility] Anion gap [Moles/Vol] 9 mmol/L 5 - 15 mmol/L [facility] AST [Catalytic activity/Vol] 13 U/L 0 - 41 U/L [facility] Bilirubin [Mass/Vol] 1.1 mg/dL 0.3 - 1 .2 mg/dL [facility] Calcium [Mass/Vol] 8.9 mg/dL 8.5 - 10. 5 mg/dL [facility] Chloride [Moles/Vol] 104 mmol/L 98 - 10 9 mmol/L [facility] CO2 [Moles/Vol] 28 mmol/L 22 - 32 mmol/L [facility] Creatine [Mass/Vol] 0.80 mg/dL 0.60 - 1 .30 mg/dL [facility] Comment on above: METHOD TRACEABLE TO IDMS STANDARD GFR/1.73 sq M.predicted among non-blacks MDRD (S/P/Bld) [Vol rate/Area] mL/min/{1.73_m2} - PINF [facility] Comment on above: Reported eGFR is based on the CKD-EPI 2020 equation that does not use a race coefficient. PERFORMED AT [facility] [address],[place] [address] Glucose [Mass/Vol] 90 mg/dL 65 - 99 mg/dL [facility] Potassium [Moles/Vol] 3.2 mmol/L Low 3.5 - 5.0 mmol/L [facility] Protein [Mass/Vol] 6.3 g/dL 6.0 - 8.0 g/dL [facility] Sodium [Moles/Vol] 141 mmol/L 134 - 146 mmol/L [facility] Urea nitrogen [Mass/Vol] 20 mg/dL 5 - 27 mg/dL [facility] FERRITINon 05-04-2023 Ferritin [Mass/Vol] 99 ng/mL Normal 24-336 [facility] Comment on above: Performed By: #### David NOVA, 2498-4, 93533-0, 2276-4, CBCA #### [facility] ([id number]) [address], [address] [place] [address] HGB A1C (GLYCO-HGB)on 2023 Glucose [Mass/Vol] 226 mg/dL Normal [facility] Comment on above: Performed By: #### David NOVA, 2498-4, 28151-4, 2276-4, CBCA #### [facility] ([id number]) [address], [address] [place] [address] HbA1c (Bld) [Mass fraction] 9.5 % High 4.4-5.6 [facility] Comment on above: Result Comment: NOTE ADA Guidelines Result HgbA1c Normal : less than 5.7 % Prediabetes : 5.7 % to 6.4 % Diabetes : > 6.4 % Use with caution in patients with abnormal hemoglobin variants as the half-life of red blood cells and in vivo glycation rates are affected. Performed By: #### David NOVA, 2498-4, 80062-3, 2276-4, CBCA #### [facility] ([id number]) [address], [address] [place] [address] IRONon 05-04-2023 Iron [Mass/Vol] 54 ug/dL Normal 50-212 [facility] Comment on above: Performed By: #### David NOVA, 2498-4, 67054-6, 227-4, CBCA #### [facility] ([id number]) [address], [address] [place] [address] Lipid 1996 panelon Cholesterol [Mass/Vol] 104 mg/dL Low 150-200 [facility] Comment on above: Performed By: #### David NOVA, 2498-4, 01987-7, 2275-4, CBCA #### [facility] ([id number]) [address], [address] [place] [address] Cholesterol in HDL [Mass/Vol] 42 mg/dL Normal >39 [facility] Comment on above: Result Comment: HDL <40 mg/dL - High Risk HDL > or = 40mg/dL- Desirable HDL >60 mg/dL - Negative Risk Performed By: #### David NOVA, 2498-4, 78421-5, 2275-4, CBCA #### [facility] ([id number]) [address], [address] [place] [address] Cholesterol in LDL [Mass/Vol] 37 mg/dL Normal <130 [facility] Comment on above: Result Comment: LDL <100 mg/dL - Desirable LDL >160 mg/dL - High Risk Performed By: #### David NOVA, 2498-4, 40164-5, 6-4, CBCA #### [facility] ([id number]) [address], [address] [place] [address] Cholesterol in VLDL [Mass/Vol] 25 mg/dL Normal 0-30 [facility] Comment on above: Performed By: #### C ROHINI, 2498-4, 05499-7, 2276-4, CBCA #### [facility] ([id number]) [address], [address] [place] [address] CHOLESTEROL:HDL 2.5 Normal 1.0-5.0 [facility] Comment on above: Performed By: #### C MP, 2498-4, 83052-1, 2276-4, CBCA #### [facility] ([id number]) [address] [facility], [address] [address] Triglyceride [Mass/Vol] 127 mg/dL Normal 27-150 [facility] Comment on above: Performed By: #### C ROHINI, 2498-4, 07627-8, 2276-4, CBCA #### [facility] ([id number]) [address], [address] [place] [address] MICROALBUMIN - ALBUMIN:CREAT ININE URINE RATIOon 05-04-2023 ALB/CREAT RATIO NOT CALCULATED Normal 0.0-30.0 [facility] Comment on above: Result Comment: Result for Albumin/Creatinine Ratio cannot be reliably calculated because urine albumin and or urine creatinine is below the detection limit of the assay. Performed By: #### M ALBU #### [facility] ([id number]) [address], [address] [place] [address] Albumin DL <= 20 mg/L (U) [Mass/Vol] mg/dL Normal 0.0-1.9 [facility] Comment on above: Performed By: #### M ALBU #### [facility] ([id number]) [address] [facility] [facility], [address] [place] [address] URINE CREAT 108.56 mg/dL Normal [facility] Comment on above: Performed By: #### M ALBU #### [facility] ([id number]) [address], [address] [place] [address] No Panel Informationon 05-04 Interpretation and review of laboratory results Abnormal [facility] URINALYSISon 05-04-2023 Bilirubin Ql (U) Negative Normal NEG [facility] Comment on above: Performed By: #### M ALBU #### [facility] ([id number]) [address], [address] [place] [address] BLOOD/HGB Negative Normal NEG [facility] Comment on above: Performed By: #### M ALBU #### [facility] ([id number]) [address] [facility], [address] [place] [address] Color (U) YELLOW Normal YELLOW [facility] Comment on above: Performed By: #### M ALBU #### [facility] ([id number]) [address], [address] [place] [address] Glucose Ql (U) >1000 Abnormal NEG [facility] Comment on above: Performed By: #### M ALBU #### [facility] ([id number]) [address], [address] [place] [address] Hyaline casts LM Ql (Urine sed) 1 /lpf Normal 0-2 [facility] Comment on above: Performed By: #### M ALBU #### [facility] ([id number]) [address], [address] [place] [address] Ketones Ql (U) Negative Normal NEG [facility] Comment on above: Performed By: #### M ALBU #### [facility] ([id number]) [address] [address] [place] [address] Leukocyte esterase Test strip Ql (U) Negative Normal NEG [facility] Comment on above: Result Comment: HIGH CONCENTRATIONS OF GLUCOSE MAY DECREASE THE REACTIVITY OF THE DIPSTICK LEUKOCYTE TEST PAD. Performed By: #### M ALBU #### [facility] ([id number]) [address], [address] [place] [address] MUCOUS PRESENT Abnormal NONE [facility] Comment on above: Performed By: #### M ALBU #### [facility] ([id number]) [address], [address] [place] [address] Nitrite Ql (U) Negative Normal NEG [facility] Comment on above: Performed By: #### M ALBU #### [facility] ([id number]) [address] [place] [address] pH (U) 5.5 [pH] Normal 5.0-8.5 [facility] Comment on above: Performed By: #### Brionna ALBU #### [facility] ([id number]) [address] [place] [address] Protein Ql (U) Trace Abnormal NEG [facility] Comment on above: Performed By: #### Brionna ALBU #### [facility] ([id number]) [address], [address] [place] [address] R.B.CELLS 1 /hpf Normal 0-5 [facility] Comment on above: Performed By: #### Brionna ALBU #### [facility] ([id number]) [address] [place] [address] Specific gravity (U) [Rel density] 1.023 Normal 1.003-1.035 [facility] Comment on above: Performed By: #### M ALBU #### [facility] ([id number]) [address] [place] [address] SQUAMOUS EPITHELIUM <1 Normal 0-5 [facility] Comment on above: Performed By: #### Brionna ALBU #### [facility] ([id number]) [address], [address] [place] [address] TURBIDITY CLEAR Normal CLEAR [facility] Comment on above: Performed By: #### Brionna ALBU #### [facility] ([id number]) [address], [address] [place] [address] Urobilinogen (U) [Mass/Vol] mg/dL Normal <1.1 [facility] Comment on above: Performed By: #### M ALBU #### [facility] ([id number]) [address], [address] [place] [address] W.B.CELLS 1 /hpf Normal 0-5 [facility] Comment on above: Performed By: #### M ALBU #### [facility] ([id number]) [address], [address] [place] [address] Urinalysis, manual onlyon Epithelial cells Auto (Urine sed) [#/Area] <1 [facility] Glucose (U) [Mass/Vol] mg/dL Abnormal Negat bossman mg/dL [facility] Hemoglobin Auto test strip Ql (U) Negative Negative [facility] Hyaline casts (Urine sed) [#/Area] 1 /[LPF] [facility] Ketones (U) [Mass/Vol] Negative Negat bossman mg/dL [facility] Leukocyte esterase Auto test strip Ql (U) Negative Negative [facility] Healthcare Comment on above: HIGH CONCENTRATIONS OF GLUCOSE MAY DECREASE THE REACTIVITY OF THE DIPSTICK LEUKOCYTE TEST PAD. Mucus Ql (Urine sed) PRESENT Abnormal NONE [facility] Nitrite Auto test strip Ql (U) Negative Negative [facility] Protein (U) [Mass/Vol] Trace Abnormal Negat bossman mg/dL [facility] Healthcare RBC Auto (Urine sed) [#/Area] 1 [facility] Specific gravity Refractometry automated (U) [Rel density] 1.023 1.003 - 1.035 [facility] Healthcare Turbidity Ql (U) CLEAR CLEAR [facility] Urobilinogen Qn (U) <1.1 NINF [facility] WBC Auto (Urine sed) [#/Area] 1 [facility] CBC AUTO DIFFon 06-11-2022 BASO # 0.0 103/ul Normal 0.0-0.1 [facility] Comment on above: Performed By: #### C BC #### [facility] [address] [place] [address] Dr. Enoch Stein Basophils/100 WBC (Bld) 0.6 % Normal 0.2-2.0 [facility] Comment on above: Performed By: #### C BC #### [facility] [address] [place] [address] Dr. Enoch Stein EO # 0.2 103/ul Normal 0.0-0.7 [facility] Comment on above: Performed By: #### C BC #### [facility] [address] [place] [address] Dr. Enoch Stein Eosinophils/100 WBC (Bld) 2.9 % Normal 0.9-7.0 [facility] Comment on above: Performed By: #### C BC #### [facility] [address] [place] [address] Dr. Enoch Stein Erythrocyte distribution width (RBC) [Ratio] 13.7 % Normal 11.0-15.0 [facility] Comment on above: Performed By: #### C BC #### [facility] [address] [place] [address] Dr. Enoch Stein Hematocrit (Bld) [Volume fraction] 35.6 % Critically low 42.0-54.0 [facility] Comment on above: Performed By: #### C BC #### [facility] [address] [place] [address] Dr. Enoch Stein Hemoglobin (Bld) [Mass/Vol] 11.7 g/dL Critically low 14.0-18.0 [facility] Comment on above: Performed By: #### C BC #### [facility] [address] [place] [address] Dr. Enoch Stein IG # 0.03 10e3/ul Normal 0.00-0.03 [facility] Comment on above: Performed By: #### C BC #### [facility] [address] [place] [address] Dr. Enoch Stein IG % 0.5 % Normal 0.0-0.5 [facility] Comment on above: Performed By: #### C BC #### [facility] [address] [address] [address] Enoch Stein LYMPH # 2.2 103/ul Normal 1.2-3.8 [facility] Comment on above: Performed By: #### C BC #### [facility] [address] [place] [address] Dr. Enoch Stein Lymphocytes/100 WBC (Bld) 35.4 % Normal 20.5-60.0 [facility] Comment on above: Performed By: #### C BC #### [facility] [address] [place] [address] Dr. Enoch Stein MANUAL DIFF REQ NO Normal [facility] Comment on above: Performed By: #### C BC #### [facility] [address] [place] [address] Dr. Enoch Stein MCH (RBC) [Entitic mass] 30.5 pg Normal 25.9-34.0 [facility] Comment on above: Performed By: #### C BC #### [facility] [address] [place] [address] Dr. Enoch Stein MCHC (RBC) [Mass/Vol] 32.9 g/dL Normal 29.9-35.2 [facility] Comment on above: Performed By: #### C BC #### [facility] [address] [place] [address] Dr. Enoch Stein MCV (RBC) [Entitic vol] 92.7 fL Normal 80.0-94.0 [facility] Comment on above: Performed By: #### C BC #### [facility] [address] [place] [address] Dr. Enoch Stein MONO # 0.5 103/ul Normal 0.3-0.8 [facility] Comment on above: Performed By: #### C BC #### [facility] [address] [place] [address] Dr. Enoch Stein Monocytes/100 WBC (Bld) 7.6 % Normal 1.7-12.0 [facility] Comment on above: Performed By: #### C BC #### [facility] [address] [place], [place] [id number] Dr. Enoch Stein NEUT # 3.3 103/ul Normal 1.4-6.5 [facility] Comment on above: Performed By: #### C BC #### [facility] [address] [address] [address] Enoch Stein Neutrophils/100 WBC (Bld) 53.0 % Normal 43.0-75.0 [facility] Comment on above: Performed By: #### C BC #### [facility] [address] [address] [address] Enoch Stein Platelet mean volume (Bld) [Entitic vol] 9.4 fL Critically low 9.5-13.5 [facility] Comment on above: Performed By: #### C BC #### [facility] [address] [place] [address] Dr. Enoch Stein PLT 225 103/ul Normal 150-450 [facility] Comment on above: Performed By: #### C BC #### [facility] [address] [address] [address] Enoch Stein RBC 3.84 106/ul Critically low 4.70-6.10 [facility] Comment on above: Performed By: #### C BC #### [facility] [address] [address] [address] Enoch Stein WBC 6.2 103/ul Normal 4.0-11.0 [facility] Comment on above: Performed By: #### C BC #### [facility] [address] [place] [address] Dr. Enoch Stein ECHOCARDIO M/2D COMPLETEon 0 06-11-2022 ECHOCARDIO M/2D COMPLETE Patient: KIMMY MCARTHUR Exam Date: 06/11/2022 : 1945 Gender:M Ordering : MARCO CONDON Admission #: [id number] Family : ELO MARISOL GUERATu MACHINE BOBBIN WINDER Order #: [id number] CLICK HERE TO VIEW EXAM ECHOCARDIOGRAM REPORT PROCEDURE: CARDIO PULMONARY ECHOCARDIO M/2D COMP INDICATIONS: Dyspnea on exertion, post-COVID chronic dyspnea, MT, PTCA, hypertension, diabetes COMPARISON: None. DESCRIPTION: COMPLETE [...] Campo M.D. on 06/11/2022 at 14:32 Normal [facility] FERRITINon 06-11-2022 Ferritin [Mass/Vol] 52.0 ng/mL Normal 26.0-388.0 [facility] Comment on above: Performed By: #### F ERR, IRON, VITB12 #### [facility] [address] [place] [address] Dr. Enoch Stein GLYCOHEMOGLOBIN A1Con 2022 ADA RECOMMENDATION SEE BELOW Normal [facility] Comment on above: Result Comment: ADA RECOMMENDED LIMIT 4.0 - 6.0 ADA THERAPEUTIC TARGET < 7.0 ACTION SUGGESTED > 7.0 Performed By: #### F ERR, IRON, VITB12 #### [facility] [address] [address] [address] Enoch Stein Glucose [Mass/Vol] 180 mg/dL Normal [facility] Comment on above: Performed By: #### F ERR, IRON, VITB12 #### [facility] [address] [address] [address] Enoch Stein HbA1c (Bld) [Mass fraction] 7.9 % Critically high 4.5-6.2 [facility] Comment on above: Performed By: #### F ERR, IRON, VITB12 #### [facility] [address] [address] [address] Enoch Stein IRONon 06-11-2022 Iron [Mass/Vol] 86.0 ug/dL Normal 65.0-175.0 [facility] Comment on above: Performed By: #### F ERR, IRON, VITB12 #### [facility] [address] [address] [address] Enoch Stein LIPID PROFILEon 06-11-2022 CHOL-HDL RATIO NORM SEE BELOW Normal [facility] Comment on above: Result Comment: 3.3 - 4.4 LOW RISK 4.4 - 7.1 AVERAGE RISK 7.1 - 11.0 MODERATE RISK >11.0 HIGH RISK Performed By: #### F ERR, IRON, VITB12 #### [facility] [address] [address] [address] Enoch Stein Cholesterol [Mass/Vol] 113 mg/dL Normal <=200 [facility] Comment on above: Performed By: #### F ERR, IRON, VITB12 #### [facility] [address] [address] [address] Enoch Stein Cholesterol in HDL [Mass/Vol] 52 mg/dL Normal 40-60 [facility] Comment on above: Performed By: #### F ERR, IRON, VITB12 #### [facility] [address] [address] [address] Enoch Stein Cholesterol in LDL [Mass/Vol] 47.0 mg/dL Normal [facility] Comment on above: Performed By: #### F ERR, IRON, VITB12 #### [facility] [address] [address] [address] Enoch Stein Cholesterol.total/Chol esterol in HDL [Mass ratio] 2.2 {ratio} Normal [facility] Comment on above: Performed By: #### F ERR, IRON, VITB12 #### [facility] [address] [address] [address] Enoch Stein HDL NORMAL > or = 60 mg/dl - LO W CARDIOVASCULAR RISK <40 mg/dl - HIGH CARDIOVASCULAR RISK Normal [facility] Comment on above: Performed By: #### F ERR, IRON, VITB12 #### [facility] [address] [address] [address] Enoch Stein LDL CALC NORMAL SEE BELOW Normal [facility] Comment on above: Result Comment: <100 mg/dl OPTIMAL 100 - 129 mg/dl NEAR OR ABOVE OPTIMAL 130 - 159 mg/dl BORDERLINE HIGH 160 - 189 mg/dl HIGH >190 mg/dl VERY HIGH Performed By: #### F ERR, IRON, VITB12 #### [facility] [address] [address] [address] Enoch Stein Triglyceride [Mass/Vol] 70 mg/dL Normal <=150 [facility] Comment on above: Performed By: #### F ERR, IRON, VITB12 #### [facility] [address] [address] [address] Enoch Stein VLDL CALC 14.0 mg/dL Normal [facility] Comment on above: Performed By: #### F ERR, IRON, VITB12 #### [facility] [address] [place] [address] Dr. Enoch Stein MICROALBUMIN, RAND URon 03-1 mALB <1.3 Normal <=30.0 [facility] Comment on above: Performed By: #### M ALBR #### [facility] [address] [place] [address] Dr. Enoch Stein PROF 14(COMP METB)on 023 Albumin [Mass/Vol] 3.7 g/dL Normal 3.4-5.0 [facility] Comment on above: Performed By: #### F ERR, IRON, VITB12 #### [facility] [address] [place] [address] Dr. Enoch Stein Albumin/Globulin [Mass ratio] 1.2 {ratio} Normal [facility] Comment on above: Performed By: #### F ERR, IRON, VITB12 #### [facility] [address] [place] [address] Dr. Enoch Stein ALP [Catalytic activity/Vol] 90 U/L Normal 46-116 [facility] Comment on above: Performed By: #### F ERR, IRON, VITB12 #### [facility] [address] [place] [address] Dr. Enoch Stein ALT [Catalytic activity/Vol] 34 U/L Normal 16-63 [facility] Comment on above: Performed By: #### F ERR, IRON, VITB12 #### [facility] [address] [place] [address] Dr. Enoch Stein Anion gap [Moles/Vol] 14.8 mmol/L Normal [facility] Comment on above: Performed By: #### F ERR, IRON, VITB12 #### [facility] [address] [place] [address] Dr. Enoch Stein AST [Catalytic activity/Vol] 22 U/L Normal 15-37 [facility] Comment on above: Performed By: #### F ERR, IRON, VITB12 #### [facility] [address] [place] [address] Dr. Enoch Stein Bilirubin [Mass/Vol] 0.6 mg/dL Normal 0.2-1.0 [facility] Comment on above: Performed By: #### F ERR, IRON, VITB12 #### [facility] [address] [place] [address] Dr. Enoch Stein Calcium [Mass/Vol] 9.7 mg/dL Normal 8.5-10.1 [facility] Comment on above: Performed By: #### F ERR, IRON, VITB12 #### [facility] [address] [address] [address] Enoch Stein Chloride [Moles/Vol] 105 mmol/L Normal 98-107 [facility] Comment on above: Performed By: #### F ERR, IRON, VITB12 #### [facility] [address] [address] [address] Enoch Stein CO2 [Moles/Vol] 26.7 mmol/L Normal 21.0-32.0 [facility] Comment on above: Performed By: #### F ERR, IRON, VITB12 #### [facility] [address] [place] [address] Dr. Enoch Stein Creatinine [Mass/Vol] 0.78 mg/dL Normal 0.70-1.30 [facility] Comment on above: Performed By: #### F ERR, IRON, VITB12 #### [facility] [address] [place] [address] Dr. Enoch Stein EGFR-AF MARTINIQUAIS >60 Normal >=60 [facility] Comment on above: Performed By: #### F ERR, IRON, VITB12 #### [facility] [address] [place] [address] Dr. Enoch Stein EGFR-NON AF MARTINIQUAIS >60 Normal >=60 [facility] Comment on above: Performed By: #### F ERR, IRON, VITB12 #### [facility] [address] [place] [address] Dr. Enoch Stein Globulin (S) [Mass/Vol] 3.2 g/dL Normal [facility] Comment on above: Performed By: #### F ERR, IRON, VITB12 #### [facility] [address] [place] [address] Dr. Enoch Stein Glucose [Mass/Vol] 179 mg/dL Critically high 74-106 [facility] Comment on above: Performed By: #### F ERR, IRON, VITB12 #### [facility] [address] [place] [address] Dr. Enoch Stein Potassium [Moles/Vol] 4.5 mmol/L Normal 3.5-5.1 [facility] Comment on above: Performed By: #### F ERR, IRON, VITB12 #### [facility] [address] [place] [address] Dr. Enoch Stein Protein [Mass/Vol] 6.9 g/dL Normal 6.4-8.2 [facility] Comment on above: Performed By: #### F ERR, IRON, VITB12 #### [facility] [address] [place] [address] Dr. Enoch Stein Sodium [Moles/Vol] 142 mmol/L Normal 136-145 [facility] Comment on above: Performed By: #### F ERR, IRON, VITB12 #### [facility] [address] [place] [address] Dr. Enoch Stein Urea nitrogen [Mass/Vol] 19.0 mg/dL Critically high 7.0-18.0 [facility] Comment on above: Performed By: #### F ERR, IRON, VITB12 #### [facility] [address] [place] [address] Dr. Enoch Stein Urea nitrogen/Creatinine [Mass ratio] 24.4 mg/mg Normal [facility] Comment on above: Performed By: #### F ERR, IRON, VITB12 #### [facility] [address] [place] [address] Dr. Enoch Stein UA RANDOM W/MICROSCOPICon BACTERIA NONE SEEN Normal NONE SEEN [facility] Comment on above: Performed By: #### U AMIC #### [facility] [address] [place] [address] Dr. Enoch Stein Bilirubin Ql (U) Negative Normal NEGATIVE [facility] Comment on above: Performed By: #### U AMIC #### [facility] [address] [place] [address] Dr. Enoch Stein CAST NONE SEEN Normal NONE SEEN [facility] Comment on above: Performed By: #### U AMIC #### [facility] [address] [address] [address] Enoch Stein Clarity (U) CLEAR Normal CLEAR [facility] Comment on above: Performed By: #### U AMIC #### [facility] [address] [place] [address] Dr. Enoch Stein Color (U) LT. YELLOW Normal YELLOW [facility] Comment on above: Performed By: #### U AMIC #### [facility] [address] [address] [address] Enoch Stein Crystals LM Nom (Urine sed) NONE SEEN Normal NONE SEEN [facility] Comment on above: Performed By: #### U AMIC #### [facility] [address] [place] [address] Dr. Enoch Stein Epithelial cells LM Ql (Urine sed) NONE SEEN Normal NONE SEEN /RARE [facility] Comment on above: Performed By: #### U AMIC #### [facility] [address] [place] [address] Dr. Enoch Stein Glucose Ql (U) 250 mg/dl Abnormal NEGATIVE [facility] Comment on above: Performed By: #### U AMIC #### [facility] [address] [place] [address] Dr. Enoch Stein Hemoglobin Ql (U) Negative Normal NEGATIVE [facility] Comment on above: Performed By: #### U AMIC #### [facility] [address] [place] [address] Dr. Enoch Stein Ketones Ql (U) Negative Normal NEGATIVE [facility] Comment on above: Performed By: #### U AMIC #### [facility] [address] [place] [address] Dr. Enoch Stein LEUKOCYTES Negative Normal NEGATIVE [facility] Comment on above: Performed By: #### U AMIC #### [facility] [address] [place] [address] Dr. Enoch Stein MUCOUS TRACE Abnormal NONE SEEN [facility] Comment on above: Performed By: #### U AMIC #### [facility] [address] [place] [address] Dr. Enoch Stein Nitrite Ql (U) Negative Normal NEGATIVE [facility] Comment on above: Performed By: #### U AMIC #### [facility] [address] [address] [address] Enoch Stein pH (U) 5.5 [pH] Normal 5-9 [facility] Comment on above: Performed By: #### U AMIC #### [facility] [address] [address] [address] Enoch Stein RBC NONE SEEN Abnormal 0-2 [facility] Comment on above: Performed By: #### U AMIC #### [facility] [address] [address] [address] Enoch Stein SPEC GRAVITY 1.020 Normal 1.005-<=1.02 5 [facility] Comment on above: Performed By: #### U AMIC #### [facility] [address] [place] [address] Dr. Enoch Stein UA PROTEIN Negative Normal NEGATIVE/ TRACE [facility] Comment on above: Performed By: #### U AMIC #### [facility] [address] [place] [address] Dr. Enoch Stein Urobilinogen Qn (U) 0.2 {Reilly'U}/dL Normal 0.2 - 1. 0 [facility] Comment on above: Performed By: #### U AMIC #### [facility] [address] [place] [address] Dr. Enoch Stein WBC NONE SEEN Normal NONE SEEN [facility] Comment on above: Performed By: #### U AMIC #### [facility] [address] [place] [address] Dr. Enoch Stein VITAMIN B12on 06-11-2022 Cobalamin (Vitamin B12) [Mass/Vol] 413.0 pg/mL Normal 193.0-986.0 [facility] Comment on above: Performed By: #### F ERR, IRON, VITB12 #### [facility] [address] [place] [address] ABD/PELV W CONon [...] SANJAY REECE Date: 2022-01-06 16:24 Normal [facility] AMYLASEon 01-05-2022 Amylase [Catalytic activity/Vol] 55 U/L Normal 25-115 [facility] Comment on above: Performed By: #### F ERR, IRON, VITB12 #### [facility] [address] [address] [address] Enoch Stein CBC AUTO DIFFon 01-05-2022 BASO # 0.0 103/ul Normal 0.0-0.1 [facility] Comment on above: Performed By: #### F ERR, IRON, VITB12 #### [facility] [address] [address] [address] Enoch Stein Basophils/100 WBC (Bld) 0.5 % Normal 0.2-2.0 [facility] Comment on above: Performed By: #### F ERR, IRON, VITB12 #### [facility] [address] [place] [address] Dr. Enoch Stein EO # 0.3 103/ul Normal 0.0-0.7 [facility] Comment on above: Performed By: #### F ERR, IRON, VITB12 #### [facility] [address] [place] [address] Dr. Enoch Stein Eosinophils/100 WBC (Bld) 3.7 % Normal 0.9-7.0 [facility] Comment on above: Performed By: #### F ERR, IRON, VITB12 #### [facility] [address] [place] [address] Dr. Enoch Stein Erythrocyte distribution width (RBC) [Ratio] 13.2 % Normal 11.0-15.0 [facility] Comment on above: Performed By: #### F ERR, IRON, VITB12 #### [facility] [address] [place] [address] Dr. Enoch Stein Hematocrit (Bld) [Volume fraction] 39.3 % Critically low 42.0-54.0 [facility] Comment on above: Performed By: #### F ERR, IRON, VITB12 #### [facility] [address] [place] [address] Dr. Enoch Stein Hemoglobin (Bld) [Mass/Vol] 13.0 g/dL Critically low 14.0-18.0 [facility] Comment on above: Performed By: #### F ERR, IRON, VITB12 #### [facility] [address] [place] [address] Dr. Enoch Stein IG # 0.04 10e3/ul Critically high 0.00-0.03 [facility] Comment on above: Performed By: #### F ERR, IRON, VITB12 #### [facility] [address] [place] [address] Dr. Enoch Stein IG % 0.5 % Normal 0.0-0.5 [facility] Comment on above: Performed By: #### F ERR, IRON, VITB12 #### [facility] [address] [place] [address] Dr. Enoch Stein LYMPH # 1.6 103/ul Normal 1.2-3.8 [facility] Comment on above: Performed By: #### F ERR, IRON, VITB12 #### [facility] [address] [place] [address] Dr. Enoch Stein Lymphocytes/100 WBC (Bld) 20.4 % Critically low 20.5-60.0 [facility] Comment on above: Performed By: #### F ERR, IRON, VITB12 #### [facility] [address] [place] [address] Dr. Enoch Stein MANUAL DIFF REQ NO Normal [facility] Comment on above: Performed By: #### F ERR, IRON, VITB12 #### [facility] [address] [place] [address] Dr. Enoch Stein MCH (RBC) [Entitic mass] 30.5 pg Normal 25.9-34.0 [facility] Comment on above: Performed By: #### F ERR, IRON, VITB12 #### [facility] [address] [place] [address] Dr. Enoch Stein MCHC (RBC) [Mass/Vol] 33.1 g/dL Normal 29.9-35.2 [facility] Comment on above: Performed By: #### F ERR, IRON, VITB12 #### [facility] [address] [place] [address] Dr. Enoch Stein MCV (RBC) [Entitic vol] 92.3 fL Normal 80.0-94.0 [facility] Comment on above: Performed By: #### F ERR, IRON, VITB12 #### [facility] [address] [place] [address] Dr. Enoch Stein MONO # 0.4 103/ul Normal 0.3-0.8 [facility] Comment on above: Performed By: #### F ERR, IRON, VITB12 #### [facility] [address] [place] [address] Dr. Enoch Stein Monocytes/100 WBC (Bld) 4.7 % Normal 1.7-12.0 [facility] Comment on above: Performed By: #### F ERR, IRON, VITB12 #### [facility] [address] [place] [address] Dr. Enoch Stein NEUT # 5.6 103/ul Normal 1.4-6.5 [facility] Comment on above: Performed By: #### F ERR, IRON, VITB12 #### [facility] [address] [place] [address] Dr. Enoch Stein Neutrophils/100 WBC (Bld) 70.2 % Normal 43.0-75.0 [facility] Comment on above: Performed By: #### F ERR, IRON, VITB12 #### [facility] [address] [place] [address] Dr. Enoch Stein Platelet mean volume (Bld) [Entitic vol] 10.2 fL Normal 9.5-13.5 [facility] Comment on above: Performed By: #### F ERR, IRON, VITB12 #### [facility] [address] [place] [address] Dr. Enoch Stein PLT 192 103/ul Normal 150-450 [facility] Comment on above: Performed By: #### F ERR, IRON, VITB12 #### [facility] [address] [place] [address] Dr. Enoch Stein RBC 4.26 106/ul Critically low 4.70-6.10 [facility] Comment on above: Performed By: #### F ERR, IRON, VITB12 #### [facility] [address] [place] [address] Dr. Enoch Stein WBC 8.0 103/ul Normal 4.0-11.0 [facility] Comment on above: Performed By: #### F ERR, IRON, VITB12 #### [facility] [address] [place], [place] [address] Dr. Enoch Stein CULTURE URINEon 01-05-2022 CULTURE URINE Culture Observations : NO GROWTH. Normal [facility] Comment on above: Performed By: #### F ERR, IRON, VITB12 #### [facility] [address] [place] [address] Dr. Enoch Stein GLYCOHEMOGLOBIN A1Con 2021 ADA RECOMMENDATION SEE BELOW Normal [facility] Comment on above: Result Comment: ADA RECOMMENDED LIMIT 4.0 - 6.0 ADA THERAPEUTIC TARGET < 7.0 ACTION SUGGESTED > 7.0 Performed By: #### A 1C #### [facility] [address] [place] [address] Dr. Enoch Stein Glucose [Mass/Vol] 166 mg/dL Normal [facility] Comment on above: Performed By: #### A 1C #### [facility] [address] [place] [address] Dr. Enoch Stein HbA1c (Bld) [Mass fraction] 7.4 % Critically high 4.5-6.2 [facility] Comment on above: Performed By: #### A 1C #### [facility] [address] [place] [address] Dr. Enoch Stein LIPASEon 01-05-2022 Lipase [Catalytic activity/Vol] 86.0 U/L Normal 73.0-393.0 [facility] Comment on above: Performed By: #### F ERR, IRON, VITB12 #### [facility] [address] [place] [address] Dr. Enoch Stein PROF 14(COMP METB)on 022 Albumin [Mass/Vol] 3.8 g/dL Normal 3.4-5.0 [facility] Comment on above: Performed By: #### F ERR, IRON, VITB12 #### [facility] [address] [place] [address] Dr. Enoch Stein Albumin/Globulin [Mass ratio] 1.1 {ratio} Normal [facility] Comment on above: Performed By: #### F ERR, IRON, VITB12 #### [facility] [address] [place] [address] Dr. Enoch Stein ALP [Catalytic activity/Vol] 101 U/L Normal 46-116 [facility] Comment on above: Performed By: #### F ERR, IRON, VITB12 #### [facility] [address] [place] [address] Dr. Enoch Stein ALT [Catalytic activity/Vol] 25 U/L Normal 16-63 [facility] Comment on above: Performed By: #### F ERR, IRON, VITB12 #### [facility] [address] [place] [address] Dr. Enoch Stein Anion gap [Moles/Vol] 15.2 mmol/L Normal [facility] Comment on above: Performed By: #### F ERR, IRON, VITB12 #### [facility] [address] [place] [address] Dr. Enoch Stein AST [Catalytic activity/Vol] 14 U/L Critically low 15-37 [facility] Comment on above: Performed By: #### F ERR, IRON, VITB12 #### [facility] [address] [place] [address] Dr. Enoch Stein Bilirubin [Mass/Vol] 1.0 mg/dL Normal 0.2-1.0 [facility] Comment on above: Performed By: #### F ERR, IRON, VITB12 #### [facility] [address] [place] [address] Dr. Enoch Stein Calcium [Mass/Vol] 9.4 mg/dL Normal 8.5-10.1 [facility] Comment on above: Performed By: #### F ERR, IRON, VITB12 #### [facility] [address] [place] [address] Dr. Enoch Stein Chloride [Moles/Vol] 104 mmol/L Normal 98-107 [facility] Comment on above: Performed By: #### F ERR, IRON, VITB12 #### [facility] [address] [place] [address] Dr. Enoch Stein CO2 [Moles/Vol] 27.1 mmol/L Normal 21.0-32.0 [facility] Comment on above: Performed By: #### F ERR, IRON, VITB12 #### [facility] [address] [place] [address] Dr. Enoch Stein Creatinine [Mass/Vol] 1.23 mg/dL Normal 0.70-1.30 [facility] Comment on above: Performed By: #### F ERR, IRON, VITB12 #### [facility] [address] [address] [address] Enoch Stein EGFR-AF MARTINIQUAIS >60 Normal >=60 [facility] Comment on above: Performed By: #### F ERR, IRON, VITB12 #### [facility] [address] [address] [address] Enoch Stein EGFR-NON AF MARTINIQUAIS 57 mL/min/1.73m2 Critically low >=60 [facility] Comment on above: Performed By: #### F ERR, IRON, VITB12 #### [facility] [address] [place] [address] Dr. Enoch Stein Globulin (S) [Mass/Vol] 3.4 g/dL Normal [facility] Comment on above: Performed By: #### F ERR, IRON, VITB12 #### [facility] [address] [place] [address] Dr. Enoch Stein Glucose [Mass/Vol] 165 mg/dL Critically high 74-106 [facility] Comment on above: Performed By: #### F ERR, IRON, VITB12 #### [facility] [address] [place] [address] Dr. Enoch Stein Potassium [Moles/Vol] 5.3 mmol/L Critically high 3.5-5.1 [facility] Comment on above: Performed By: #### F ERR, IRON, VITB12 #### [facility] [address] [place] [address] Dr. Enoch Stein Protein [Mass/Vol] 7.2 g/dL Normal 6.4-8.2 [facility] Comment on above: Performed By: #### F ERR, IRON, VITB12 #### [facility] [address] [place] [address] Dr. Enoch Stein Sodium [Moles/Vol] 141 mmol/L Normal 136-145 [facility] Comment on above: Performed By: #### F ERR, IRON, VITB12 #### [facility] [address] [place] [address] Dr. Enoch Stein Urea nitrogen [Mass/Vol] 26.0 mg/dL Critically high 7.0-18.0 [facility] Comment on above: Performed By: #### F ERR, IRON, VITB12 #### [facility] [address] [place] [address] Dr. Enoch Stein Urea nitrogen/Creatinine [Mass ratio] 21.1 mg/mg Normal [facility] Comment on above: Performed By: #### F ERR, IRON, VITB12 #### [facility] [address] [place] [address] Dr. Enoch Stein SED RATE [facility] 2021 SED RATE 4 mm/hr Normal <=20 [facility] Comment on above: Performed By: #### S EDR #### [facility] [address] [place] [address] Dr. Enoch Stein UA RANDOM W/MICROSCOPICon BACTERIA TRACE Abnormal NONE SEEN [facility] Comment on above: Performed By: #### U AMIC #### [facility] [address] [place] [address] Dr. Enoch Stein Bilirubin Ql (U) SMALL Abnormal NEGATIVE [facility] Comment on above: Performed By: #### U AMIC #### [facility] [address] [place] [address] Dr. Enoch Stein CA OX CRYSTALS FEW Normal [facility] Comment on above: Performed By: #### U AMIC #### [facility] [address] [place] [address] Dr. Enoch Stein CAST SEEN Abnormal NONE SEEN [facility] Comment on above: Performed By: #### U AMIC #### [facility] [address] [place] [address] Dr. Enoch Stein Clarity (U) CLEAR Normal CLEAR [facility] Comment on above: Performed By: #### U AMIC #### [facility] [address] [place] [address] Dr. Enoch Stein Color (U) DK. YELLOW Normal YELLOW [facility] Comment on above: Performed By: #### U AMIC #### [facility] [address] [address] [address] Enoch Stein Crystals LM Nom (Urine sed) SEEN Abnormal NONE SEEN [facility] Comment on above: Performed By: #### U AMIC #### [facility] [address] [address] [address] Enoch Stein Epithelial cells LM Ql (Urine sed) RARE Normal NONE SEEN /RARE [facility] Comment on above: Performed By: #### U AMIC #### [facility] [address] [address] [address] Enoch Stein Glucose Ql (U) Negative Normal NEGATIVE [facility] Comment on above: Performed By: #### U AMIC #### [facility] [address] [address] [address] Enoch Stein Hemoglobin Ql (U) Negative Normal NEGATIVE [facility] Comment on above: Performed By: #### U AMIC #### [facility] [address] [address] [address] Enoch Stein HYALINE CAST MODERATE Normal [facility] Comment on above: Performed By: #### U AMIC #### [facility] [address] [address] [address] Enoch Stein Ketones Ql (U) 15 mg/dl Abnormal NEGATIVE [facility] Comment on above: Performed By: #### U AMIC #### [facility] [address] [address] [address] Enoch Stein LEUKOCYTES Negative Normal NEGATIVE [facility] Comment on above: Performed By: #### U AMIC #### [facility] [address] [address] [address] Enoch Stein MUCOUS MODERATE Abnormal NONE SEEN [facility] Comment on above: Performed By: #### U AMIC #### [facility] [address] [address] [address] Enoch Stein Nitrite Ql (U) Negative Normal NEGATIVE [facility] Comment on above: Performed By: #### U AMIC #### [facility] [address] [address] [address] Enoch Stein pH (U) 6.0 [pH] Normal 5-9 [facility] Comment on above: Performed By: #### U AMIC #### [facility] [address] [address] [address] Enoch Stein RBC 0-2 Normal 0-2 [facility] Comment on above: Performed By: #### U AMIC #### [facility] [address] [address] [address] Enoch Stein SPEC GRAVITY >=1.030 Abnormal 1.005-<=1.02 5 [facility] Comment on above: Performed By: #### U AMIC #### [facility] [address] [place] [address] Dr. Enoch Stein UA PROTEIN 100 mg/dl Abnormal NEGATIVE/ TRACE [facility] Comment on above: Performed By: #### U AMIC #### [facility] [address] [address] [address] Enoch Stein Urobilinogen Qn (U) 1.0 {Reilly'U}/dL Normal 0.2 - 1. 0 [facility] Comment on above: Performed By: #### U AMIC #### [facility] [address] [place] [address] Dr. Enoch Stein WBC 0-2 Abnormal NONE SEEN [facility] Comment on above: Performed By: #### U AMIC #### [facility] [address] [place] [address] Dr. Enoch Stein ECHOCARDIO M/2D COMPLETEon 0 10-14-2021 ECHOCARDIO M/2D COMPLETE Patient: KIMMY MCARTHUR Exam Date: 10/14/2021 : 1945 Gender:M [facility] #: [id number] Family : ELO MARISOL BOYCE MACHINE BOBBIN WINDER Order #: [id number] CLICK HERE TO VIEW EXAM ECHOCARDIOGRAM REPORT [...] Campo M.D. on 10/14/2021 at 16:57 Normal [facility] CTA NECKon 03-04-2021 CTA NECK [facility] Department of Radiology [address] [place] [id number] Patient Name: KIMMY MCARTHUR : 1945 Sex: M Age: Race: White Pt. Location: [facility] Patient Status: D Ordered Date: 01/28/2021 4:35:00 PM Completed Date: 03/04/2021 10:46 AM Requesting Provider: ALEX REECE Attending Provider: ALEX REECE Report Copy To: PRABHJOT VILLATORO Signs & Symptoms: I65.29 Occlusion and stenosis of unspecified carotid artery I10 History: Keira patient will need labs Need Wed appt medicare [place] required [address] / i65.29 med nec passed *kw 02/04/21 [...] viewed on a separate workstation. [facility] [place] Symptomatic Carotid Endarterectomy Trial (NASCET) method for [...] achievable Electronically signed: Troy Wadsworth. Transcribed by: [email or web address], User Resident: TROY WADSWORTH Electronically Signed by: TROY WADSWORTH @ 03/08/2021 08:19 AM I personally read this/these film(s) with this resident Normal [facility] Vital Signs Date Time Vital Sign Value Performing Clinician Facility 09-26-2024 08:53-0400 Body mass index (BMI) [Ratio] 22.76 kg/m2 Marisol Boyce NP Work Phone: [facility] 09-26-2024 08:53-0400 Body temperature 97.81 [degF] Marisol Boyce NP Work Phone: [facility] 09-26-2024 08:53-0400 Body weight 76.11 kg Marisol Aichholz PRESS BRAKE OPERATOR Work Phone: [facility] 09-26-2024 08:53-0400 Diastolic blood pressure 60 mm[Hg] Marisol Aichholz PRESS BRAKE OPERATOR Work Phone: [facility] 09-26-2024 08:53-0400 Heart rate 60 /min Marisol Aichholz PRESS BRAKE OPERATOR Work Phone: [facility] 09-26-2024 08:53-0400 Respiratory rate 18 /min Marisol Aichholz PRESS BRAKE OPERATOR Work Phone: [facility] 09-26-2024 08:53-0400 SaO2% (BldA) [Mass fraction] 98 % Marisol Aichholz PRESS BRAKE OPERATOR Work Phone: [facility] 09-26-2024 08:53-0400 Systolic blood pressure 128 mm[Hg] Marisol Aichholz PRESS BRAKE OPERATOR Work Phone: [facility] 08-15-2024 10:37-0400 Body mass index (BMI) [Ratio] 22.43 kg/m2 Marisol Aichholz PRESS BRAKE OPERATOR Work Phone: [facility] 08-15-2024 10:37-0400 Body temperature 98.49 [degF] Marisol Aichholz PRESS BRAKE OPERATOR Work Phone: [facility] 08-15-2024 10:37-0400 Body weight 75.03 kg Marisol Aichholz PRESS BRAKE OPERATOR Work Phone: [facility] 08-15-2024 10:37-0400 Diastolic blood pressure 68 mm[Hg] Marisol Aichholz PRESS BRAKE OPERATOR Work Phone: [facility] 08-15-2024 10:37-0400 Heart rate 51 /min Marisol Aichholz PRESS BRAKE OPERATOR Work Phone: [facility] 08-15-2024 10:37-0400 Respiratory rate 18 /min Marisol Aichholz PRESS BRAKE OPERATOR Work Phone: [facility] 08-15-2024 10:37-0400 SaO2% (BldA) [Mass fraction] 96 % Marisol Chinoholz PRESS BRAKE OPERATOR Work Phone: [facility] 08-15-2024 10:37-0400 Systolic blood pressure 108 mm[Hg] Marisol Medardohholz PRESS BRAKE OPERATOR Work Phone: [facility] 05-15-2024 09:26-0500 Body height 182.9 cm Marisol Aichholz PRESS BRAKE OPERATOR Work Phone: [facility] 05-15-2024 09:26-0500 Body mass index (BMI) [Ratio] 23.22 kg/m2 Marisol Aichholz PRESS BRAKE OPERATOR Work Phone: [facility] 05-15-2024 09:26-0500 Body temperature 98.1 [degF] Marisol Medardohholz PRESS BRAKE OPERATOR Work Phone: [facility] 05-15-2024 09:26-0500 Body weight 77.66 kg Marisol Medardohholz PRESS BRAKE OPERATOR Work Phone: [facility] 05-15-2024 09:26-0500 Diastolic blood pressure 62 mm[Hg] Marisol Medardohholz PRESS BRAKE OPERATOR Work Phone: [facility] 05-15-2024 09:26-0500 Heart rate 57 /min Marisol Medardohholz PRESS BRAKE OPERATOR Work Phone: [facility] 05-15-2024 09:26-0500 Respiratory rate 18 /min Marisol Chinoholz PRESS BRAKE OPERATOR Work Phone: [facility] 05-15-2024 09:26-0500 SaO2% (BldA) [Mass fraction] 98 % Marisol Aichholz PRESS BRAKE OPERATOR Work Phone: [facility] 05-15-2024 09:26-0500 Systolic blood pressure 140 mm[Hg] Marisol Aichholz PRESS BRAKE OPERATOR Work Phone: [facility] 04-04-2024 11:42-0500 Body height 182.9 cm Marlin MATAMOROS Work Phone: [facility] 04-04-2024 11:42-0500 Body mass index (BMI) [Ratio] 23.79 kg/m2 Marlin Koch GROUNDS SUPERVISOR-MACHINE BOBBIN WINDER Work Phone: [facility] 04-04-2024 11:42-0500 Body weight 79.56 kg Marlin Koch GROUNDS SUPERVISOR-MACHINE BOBBIN WINDER Work Phone: [facility] 04-04-2024 11:42-0500 Diastolic blood pressure 46 mm[Hg] Marlin Koch GROUNDS SUPERVISOR-MACHINE BOBBIN WINDER Work Phone: [facility] 04-04-2024 11:42-0500 Heart rate 64 /min Marlin Koch GROUNDS SUPERVISOR-MACHINE BOBBIN WINDER Work Phone: [facility] 04-04-2024 11:42-0500 Systolic blood pressure 131 mm[Hg] Marlin Koch GROUNDS SUPERVISOR-MACHINE BOBBIN WINDER Work Phone: [facility] 03-05-2024 11:51-0500 Body height 182.9 cm Marlin Koch GROUNDS SUPERVISOR-MACHINE BOBBIN WINDER Work Phone: [facility] 03-05-2024 11:51-0500 Body mass index (BMI) [Ratio] 23.46 kg/m2 Marlin Koch GROUNDS SUPERVISOR-MACHINE BOBBIN WINDER Work Phone: [facility] 03-05-2024 11:51-0500 Body weight 78.47 kg Marlin Koch GROUNDS SUPERVISOR-MACHINE BOBBIN WINDER Work Phone: [facility] 03-05-2024 11:51-0500 Diastolic blood pressure 52 mm[Hg] Marlin Koch GROUNDS SUPERVISOR-MACHINE BOBBIN WINDER Work Phone: [facility] 03-05-2024 11:51-0500 Systolic blood pressure 135 mm[Hg] Marlin Koch GROUNDS SUPERVISOR-MACHINE BOBBIN WINDER Work Phone: [facility] 02-15-2024 13:15-0500 Body height 182.9 cm Marisol Boyce NP Work Phone: [facility] 02-15-2024 13:15-0500 Body mass index (BMI) [Ratio] 23.57 kg/m2 Marisollaura Maganaholz PRESS BRAKE OPERATOR Work Phone: [facility] 02-15-2024 13:15-0500 Body temperature 98.49 [degF] Marisol Medardohholz PRESS BRAKE OPERATOR Work Phone: [facility] 02-15-2024 13:15-0500 Body weight 78.83 kg Marisol Medardohholz PRESS BRAKE OPERATOR Work Phone: [facility] 02-15-2024 13:15-0500 Diastolic blood pressure 64 mm[Hg] Marisol Aichholz PRESS BRAKE OPERATOR Work Phone: [facility] 02-15-2024 13:15-0500 Heart rate 51 /min Marisol Medradohholz PRESS BRAKE OPERATOR Work Phone: [facility] 02-15-2024 13:15-0500 Respiratory rate 19 /min Marisol Medardohholz PRESS BRAKE OPERATOR Work Phone: [facility] 02-15-2024 13:15-0500 SaO2% (BldA) [Mass fraction] 100 % Marisol Medardohholz PRESS BRAKE OPERATOR Work Phone: [facility] 02-15-2024 13:15-0500 Systolic blood pressure 112 mm[Hg] Marisol Medardohholz PRESS BRAKE OPERATOR Work Phone: [facility] 01-04-2024 09:05-0400 Body mass index (BMI) [Ratio] 23.41 kg/m2 Marisol Aichholz PRESS BRAKE OPERATOR Work Phone: [facility] 01-04-2024 09:05-0400 Body temperature 98.1 [degF] Marisol Aichholz PRESS BRAKE OPERATOR Work Phone: [facility] 01-04-2024 09:05-0400 Body weight 78.29 kg Marisol Medardohholz PRESS BRAKE OPERATOR Work Phone: [facility] 01-04-2024 09:05-0400 Diastolic blood pressure 78 mm[Hg] Marisol Medardohholz PRESS BRAKE OPERATOR Work Phone: [facility] 01-04-2024 09:05-0400 Heart rate 79 /min Marisol Aichholz PRESS BRAKE OPERATOR Work Phone: [facility] 01-04-2024 09:05-0400 Respiratory rate 19 /min Marisol Aichholz PRESS BRAKE OPERATOR Work Phone: [facility] 01-04-2024 09:05-0400 SaO2% (BldA) [Mass fraction] 97 % Marisol Aichholz PRESS BRAKE OPERATOR Work Phone: [facility] 01-04-2024 09:05-0400 Systolic blood pressure 124 mm[Hg] Marisol Aichholz PRESS BRAKE OPERATOR Work Phone: [facility] 11-22-2023 11:27-0400 Body height 182.9 cm Marisol Aichholz PRESS BRAKE OPERATOR Work Phone: [facility] 11-22-2023 11:27-0400 Body mass index (BMI) [Ratio] 23.16 kg/m2 Marisol Aichholz PRESS BRAKE OPERATOR Work Phone: [facility] 11-22-2023 11:27-0400 Body temperature 97.81 [degF] Marisol Aichholz PRESS BRAKE OPERATOR Work Phone: [facility] 11-22-2023 11:27-0400 Body weight 77.47 kg Marisol Aichholz PRESS BRAKE OPERATOR Work Phone: [facility] 11-22-2023 11:27-0400 Diastolic blood pressure 64 mm[Hg] Marisol Aichholz PRESS BRAKE OPERATOR Work Phone: [facility] 11-22-2023 11:27-0400 Heart rate 56 /min Marisol Aichholz PRESS BRAKE OPERATOR Work Phone: [facility] 11-22-2023 11:27-0400 Respiratory rate 18 /min Marisol Aichholz PRESS BRAKE OPERATOR Work Phone: [facility] 11-22-2023 11:27-0400 SaO2% (BldA) [Mass fraction] 96 % Marisol Carli PRESS BRAKE OPERATOR Work Phone: [facility] 11-22-2023 11:27-0400 Systolic blood pressure 98 mm[Hg] Marisol Carli PRESS BRAKE OPERATOR Work Phone: [facility] 07-11-2023 13:56-0400 Body temperature 98.06 [degF] YAMILEX EUGENIO [facility] 07-11-2023 13:56-0400 Diastolic blood pressure 71 mm[Hg] YAMILEX EUGENIO [facility] 07-11-2023 13:56-0400 Heart rate 67 /min YAMILEX EUGENIO [facility] 07-11-2023 13:56-0400 Respiratory rate 16 /min YAMILEX EUGENIO [facility] 07-11-2023 13:56-0400 Systolic blood pressure 135 mm[Hg] YAMILEX EUGENIO [facility] 06-18-2022 09:44-0400 Blood Pressure Location Deja Lue [facility] 06-18-2022 09:44-0400 Diastolic blood pressure 67 mm[Hg] Deja Lue [facility] 06-18-2022 09:44-0400 Heart rate 87 /min Deja Lue [facility] 06-18-2022 09:44-0400 Systolic blood pressure 137 mm[Hg] Deja Lue [facility] Encounters Encounter Date Encounter Type Care Provider Facility Start: 10-24-2024 End: 10-25-2024 Refill Marisol Aichholz PRESS BRAKE OPERATOR Work Phone: [facility] Comment on above: Mixed hyperlipidemia (Primary Dx) Start: 10-09-2024 End: 10-09-2024 ambulatory EHAB [facility] Start: 10-03-2024 End: 10-03-2024 Refill Marisol Aichholz PRESS BRAKE OPERATOR Work Phone: [facility] Comment on above: PAD (peripheral christianne ry disease) (Primary Dx); Paroxysmal atrial fibrillation (HCC) Start: 09-26-2024 End: 09-26-2024 Bamboo flowsheet Marisol Aichholz PRESS BRAKE OPERATOR Work Phone: [facility] Start: 09-26-2024 End: 09-26-2024 Bamboo flowsheet Marisol Aichholz PRESS BRAKE OPERATOR Work Phone: [facility] Start: 09-26-2024 End: 09-26-2024 Telephone encounter Marisol Aichholz PRESS BRAKE OPERATOR Work Phone: [facility] Start: 09-26-2024 End: 09-26-2024 Office outpatient visit 25 minutes Marisol Aichholz PRESS BRAKE OPERATOR Work Phone: [facility] Comment on above: Dizziness and giddin ess (Primary Dx); Pulmonary hypertension, unspecified (HCC); Primary hypertension ; Riley's esophagus with dysplasia; Type 2 diabetes mellitus without complication, with long-term current use of insulin (HCC) Start: 09-26-2024 End: 09-26-2024 ambulatory MARISOL AICHHOLZ Not Available Start: 08-15-2024 End: 08-15-2024 Bamboo flowsheet Marisol Aichholz PRESS BRAKE OPERATOR Work Phone: [facility] Start: 08-15-2024 End: 08-15-2024 Bamboo flowsheet Marisol Aichholz PRESS BRAKE OPERATOR Work Phone: [facility] Start: 08-15-2024 End: 08-15-2024 Patient encounter procedure Marisol Aichholz PRESS BRAKE OPERATOR Work Phone: [facility] Comment on above: Encounter for subseq uent annual wellness visit (AWV) in Medicare patient (Primary Dx); Centrilobular emphysema ([facility]/HCC); Paroxysmal atrial fibrillation (CMS/HCC); Bilateral carotid artery disease, unspecified type ([facility]/HCC); Primary hypertension ([facility]); Type 2 diabetes mellitus without complication, with long-term current use of insulin; Type 2 diabetes mellitus with other specified complication, with long-term current use of insulin; Mixed hyperlipidemia ([facility]); Dizziness and giddiness Start: 08-15-2024 End: 08-15-2024 ambulatory MARISOL AICHHOLZ Not Available Start: 08-10-2024 End: 08-10-2024 Refill Marisol Aichholz PRESS BRAKE OPERATOR Work Phone: [facility] Comment on above: Type 2 diabetes maddie itus without complication, with long-term current use of insulin Start: 07-18-2024 End: 07-18-2024 ambulatory Deja Perez Facility:[facility] Start: 07-11-2024 End: 07-11-2024 Clinisync Result Encounter Marisol Aichholz PRESS BRAKE OPERATOR Work Phone: [facility] External Department Unsolicited Start: 07-11-2024 End: 07-11-2024 Clinisync Result Encounter Marisol Aichholz PRESS BRAKE OPERATOR Work Phone: [facility] External Department Unsolicited Start: 07-11-2024 End: 07-11-2024 Lab Drop off YAMILEX ARMSTRONG [facility] Start: 07-11-2024 End: 07-11-2024 ambulatory Fiona Beaver Facility:[facility] Start: 07-05-2024 End: 07-05-2024 Refill Marisol Aichholz PRESS BRAKE OPERATOR Work Phone: [facility] Comment on above: Benign prostatic hyp erplasia with lower urinary tract symptoms, symptom details unspecified (Primary Dx) Start: 06-20-2024 End: 06-20-2024 Refill Marisol Aichholz PRESS BRAKE OPERATOR Work Phone: [facility] Comment on above: Riley's esophagus with dysplasia (Primary Dx) Start: 05-15-2024 End: 05-15-2024 Bamboo flowsheet Marisol Aichholz PRESS BRAKE OPERATOR Work Phone: [facility] Start: 05-15-2024 End: 05-15-2024 Bamboo flowsheet Marisol Aichholz PRESS BRAKE OPERATOR Work Phone: [facility] Start: 05-15-2024 End: 05-15-2024 Office outpatient visit 25 minutes Marisol Aichholz PRESS BRAKE OPERATOR Work Phone: [facility] Comment on above: Type 2 diabetes maddie itus without complication, with long-term current use of insulin (CMS/HCC) (Primary Dx); Centrilobular emphysema (CMS/HCC); Type 2 diabetes mellitus with other specified complication (CMS/HCC); Erectile dysfunction due to diseases classified elsewhere; Type 2 diabetes mellitus 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 (CMS/HCC); Paroxysmal atrial fibrillation (CMS/HCC); Coronary artery disease 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 angina pectoris (CMS/HCC); Primary hypertension (CMS/HCC); PAD (peripheral artery disease) (CMS/HCC); Iron deficiency anemia, unspecified iron deficiency anemia type; Mixed hyperlipidemia (CMS/HCC); Primary insomnia Start: 05-15-2024 End: 05-15-2024 ambulatory MARISOL AICHHOLZ Not Available Start: 05-13-2024 End: 05-13-2024 Refill Marisol Aichholz PRESS BRAKE OPERATOR Work Phone: [facility] Comment on above: Type 2 diabetes maddie itus without complication, with long-term current use of insulin (CMS/HCC) Start: 04-18-2024 End: 04-18-2024 Telephone encounter Fiona Miguel CMA [facility] Start: 04-16-2024 End: 04-16-2024 Orders Only Sabino Mauricio DO [facility] Start: 04-11-2024 End: 04-11-2024 ambulatory Sabino Mauricio [facility] Work Phone: Start: 04-11-2024 End: 04-11-2024 Departed Referred Sabino Mauricio DO Work Phone: [facility] Start: 04-04-2024 End: 04-04-2024 Office outpatient visit 15 minutes Marlin Koch GROUNDS SUPERVISOR-MACHINE BOBBIN WINDER Work Phone: [facility] Comment on above: Encounter for colono scopy due to history of colonic polyp (Primary Dx); 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 Start: 04-04-2024 End: 04-04-2024 Refill Marisol Boyce NP Work Phone: [facility] Comment on above: Type 2 diabetes maddie itus without complication, with long-term current use of insulin ([facility]) (Primary Dx) Start: 03-29-2024 End: 03-29-2024 Telephone encounter Marisol Boyce NP Work Phone: [facility] Start: 03-26-2024 End: 03-26-2024 ambulatory [facility] Start: 03-22-2024 End: 03-22-2024 Clinical Support [facility] Comment on above: Arrived Start: 03-19-2024 End: 03-19-2024 Clinical Support [facility] Start: 03-15-2024 End: 03-15-2024 ambulatory [facility] Start: 03-14-2024 End: 03-14-2024 ambulatory E[facility]AB [facility] Start: 03-13-2024 End: 03-13-2024 Clinisync Result Encounter Marisol Boyce NP Work Phone: [facility] External Department Unsolicited Start: 03-13-2024 End: 03-13-2024 Clinisync Result Encounter Marisol Boyce PRESS BRAKE OPERATOR Work Phone: [facility] External [facility] Unsolicited Start: 03-12-2024 End: 03-12-2024 ambulatory AB [facility] Start: 03-08-2024 End: 03-08-[address] [facility] Start: 03-07-2024 End: 03-07-2024 ambulatory AB [facility] Start: 03-05-2024 End: 03-05-2024 Office outpatient new 30 minutes Marlin JHAMACHINE BOBBIN WINDER Work Phone: [facility] Comment on above: Encounter for colono scopy due to history of colonic polyp (Primary Dx); 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 Start: 03-05-2024 End: 03-05-2024 ambulatory [facility] Start: 02-22-2024 End: 02-22-[address] [facility] Start: 02-20-2024 End: 02-20-[address] [facility] Start: 02-16-2024 End: 02-16-[address] [facility] Start: 02-15-2024 End: 02-15-2024 Bamboo flowsheet Marisol Boyce PRESS BRAKE OPERATOR Work Phone: [facility] Start: 02-15-2024 End: 02-15-2024 Bamboo flowsheet Marisol Boyce PRESS BRAKE OPERATOR Work Phone: [facility] Start: 02-15-2024 End: 02-15-2024 Office outpatient visit 25 minutes Marisol Boyce PRESS BRAKE OPERATOR Work Phone: [facility] Comment on above: Type 2 diabetes maddie itus without complication, with long-term current use of insulin ([facility]/HCC) (Primary Dx); Primary hypertension (CMS/HCC); PAD (peripheral artery disease) (CMS/HCC); 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 pectoris (CMS/HCC); Riley's esophagus with dysplasia; Erectile dysfunction due to diseases classified elsewhere; Benign prostatic hyperplasia with lower urinary tract symptoms, symptom details unspecified; Colon cancer screening; Tubulovillous adenoma of colon; Lumbosacral spondylosis without myelopathy Start: 02-15-2024 End: 02-15-2024 ambulatory MARISOL BOYCE Not Available Start: 02-15-2024 End: 02-15-[address] [facility] Start: 02-13-2024 End: 02-13-2024 ambulatory E[facility]AB [facility] Start: 02-09-2024 End: 02-09-[address] [facility] Start: 02-08-2024 End: 02-08-2024 ambulatory E[facility]AB [facility] Start: 02-06-2024 End: 02-06-[address] [facility] Start: 02-02-2024 End: 02-02-2024 Telephone encounter Marisol Boyce PRESS BRAKE OPERATOR Work Phone: [facility] Start: 02-02-2024 End: 02-02-2024 ambulatory EHAB [facility] Start: 02-01-2024 End: 02-01-2024 ambulatory EHAB [facility] Start: 01-30-2024 End: 01-30-2024 ambulatory EHAB [facility] Start: 01-26-2024 End: 01-26-2024 ambulatory EHAB [facility] Start: 01-25-2024 End: 01-25-2024 ambulatory E[facility]AB [facility] Start: 01-23-2024 End: 01-23-2024 ambulatory EHAB [facility] Start: 01-19-2024 End: 01-19-[address] [facility] Start: 01-18-2024 End: 01-18-[address] [facility] Start: 01-16-2024 End: 01-16-[address] [facility] Start: 01-12-2024 End: 01-12-[address] [facility] Comment on above: Arrived Start: 01-11-2024 End: 01-11-2024 [facility] Start: 01-11-2024 End: 01-11-[address] [facility] Start: 01-09-2024 End: 01-09-2024 ambulatory AB [facility] Start: 01-05-2024 End: 01-05-[address] [facility] Start: 01-04-2024 End: 01-04-2024 Bamboo flowsheet Marisol Boyce PRESS BRAKE OPERATOR Work Phone: [facility] Start: 01-04-2024 End: 01-04-2024 Bamboo flowsheet Marisol Boyce PRESS BRAKE OPERATOR Work Phone: [facility] Start: 01-04-2024 End: 01-04-[address] [facility] Start: 01-04-2024 End: 01-04-2024 Office outpatient visit 25 minutes Marisol Boyce PRESS BRAKE OPERATOR Work Phone: [facility] Comment on above: Type 2 diabetes maddie itus without complication, with long-term current use of insulin (CMS/HCC) (Primary Dx); Chronic thoracic back pain, unspecified back pain laterality; Primary hypertension (CMS/HCC) Start: 01-04-2024 End: 01-04-2024 ambulatory MARISOL BOYCE Not Available Start: 01-02-2024 End: 01-02-[address] [facility] Start: 12-29-2023 End: 12-29-2023 ambulatory AB [facility] Start: 12-28-2023 End: 12-28-[address] [facility] Start: 12-26-2023 End: 12-26-[address] [facility] Start: 12-22-2023 End: 12-22-[address] [facility] Start: 12-21-2023 End: 12-21-2023 Refill Marisol Boyce NP Work Phone: [facility] Comment on above: Benign prostatic hyp erplasia with lower urinary tract symptoms, symptom details unspecified (Primary Dx) Start: 12-21-2023 End: 12-21-2023 ambulatory [facility] Start: 12-19-2023 End: 12-19-[address] [facility] Start: 12-16-2023 End: 12-16-2023 ambulatory [facility] Start: 12-07-2023 End: 12-07-2023 ambulatory [facility] Start: 11-29-2023 End: 11-29-2023 External Result Encounter Marisol Boyce NP Work Phone: [facility] External [facility] Unsolicited Start: 11-29-2023 End: 11-29-2023 External Result Encounter Marisol Boyce NP Work Phone: [facility] External [facility] Unsolicited Start: 11-29-2023 End: 11-29-2023 [facility] Start: 11-29-2023 End: 11-29-2023 ambulatory AB [facility] Start: 11-22-2023 End: 11-22-2023 Bamboo flowsheet Marisol Boyce NP Work Phone: [facility] Start: 11-22-2023 End: 11-22-2023 Bamboo flowsheet Marisol Boyce PRESS BRAKE OPERATOR Work Phone: [facility] Start: 11-22-2023 End: 11-22-2023 Office outpatient visit 15 minutes Marisol Boyce PRESS BRAKE OPERATOR Work Phone: [facility] Comment on above: Coronary artery dise ase 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 angina pectoris (CMS/HCC) (Primary Dx); Other thrombophilia (CMS/HCC); Paroxysmal atrial fibrillation (CMS/HCC); Nonrheumatic mitral valve regurgitation; Primary hypertension (CMS/HCC); 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) Start: 11-22-2023 End: 11-22-2023 ambulatory MARISOL BOYCE Not Available Start: 10-11-2023 End: 10-11-2023 ambulatory [facility] Start: 10-11-2023 End: 10-11-2023 ambulatory MARISOL CARLI Not Available Start: 07-11-2023 End: 07-11-2023 Patient encounter procedure YAMILEX ARMSTRONG [facility] Start: 07-06-2023 End: 07-06-2023 ambulatory [facility] Start: 06-07-2023 Patient encounter procedure Marisol Boyce PRESS BRAKE OPERATOR Work Phone: [facility] Start: 05-05-2023 Refill Marisol Boyce PRESS BRAKE OPERATOR Work Phone: [facility] Start: 05-04-2023 External Result Encounter Marisol Boyce PRESS BRAKE OPERATOR Work Phone: [facility] External Department Unsolicited Start: 05-04-2023 External Result Encounter Marisol Boyce PRESS BRAKE OPERATOR Work Phone: [facility] External Department Unsolicited Start: 05-04-2023 End: 05-04-2023 ambulatory [facility] Start: 06-18-2022 End: 06-18-2022 Patient encounter procedure Deja StatonJose Juan Jaegeremmanuel [facility] Start: 06-11-2022 End: 06-12-2022 ambulatory MACHINE BOBBIN WINDER MARISOL BOYCE Facility:[facility] Start: 01-06-2022 End: 01-07-2022 ambulatory MACHINE BOBBIN WINDER MARISOL CARLI Facility:[facility] Start: 01-05-2022 End: 01-06-2022 ambulatory MACHINE BOBBIN WINDER MARISOL BOYCE Facility:[facility] Start: 10-14-2021 End: 10-15-2021 ambulatory DWAIN RAY Facility:[facility] Start: 06-18-2021 End: 06-18-2021 Patient encounter procedure Carlitos MAYA [facility] Procedures Date Procedure Procedure Detail Performing Clinician Start: 07-11-2024 [facility] CBC W/ AUTO DIFF L abhinav Carli PRESS BRAKE OPERATOR Work Phone: Start: 04-11-2024 Colonoscopy Sabino eller DO Work Phone: Start: 04-04-2024 Follow-up visit Follow-up MARLIN KOCH Start: 03-13-2024 MLR HEMOGLOBIN A1C Marisol Carli PRESS BRAKE OPERATOR Work Phone: Start: 11-29-2023 Basic metabolic pane l calcium total Marisol Carli PRESS BRAKE OPERATOR Work Phone: Start: 05-04-2023 Comprehensive metabo lic panel Marisol Carli PRESS BRAKE OPERATOR Work Phone: Start: 05-04-2023 Urnls dip stick/tabl et rgnt non-auto w/o micrscp Marisol Carli PRESS BRAKE OPERATOR Work Phone: Start: 02-26-2020 Iliofemoral vein anita nt (physical object) Carlitos MAYA Start: 08-03-2019 Injection of sacroil iac joint Carlitos MAYA Start: 10-26-2018 Colonoscopy Marisol mann PRESS BRAKE OPERATOR Work Phone: Cataract (disorder) Carlitos HAMM Cholecystectomy Carlitos MAYA Placement of stent i n cardiac conduit Carlitos MAYA Prosthetic arthropla sty of shoulder Carlitos MAYA Plan of Treatment Date Care Activity Detail Author Start: 04-11-2029 Screening for malignant neoplasm of colon [facility] Start: 04-11-2027 Screening for malignant neoplasm of colon Colonoscopy [facility] Start: 09-26-2026 Glaucoma screening Diabetes: Retinopathy Screening [facility] Start: 08-21-2025 End: 08-21-2025 Patient encounter procedure 08/21/2025 10:00 AM EDT Office Visit [facility] [address] [place] [address] Marisol Boyce, CATALINA [address] [place] [address] [facility] Start: 08-15-2025 Medicare Annual Wellness (AWV) Medicare Annual Wellness (AWV) [facility] Start: 07-11-2025 Urine screening for protein Diabetes: Urine Protein Screening [facility] Start: 04-04-2025 Tobacco Screening Tobacco Screening [facility] Start: 03-05-2025 Tobacco Screening Tobacco Screening [facility] Start: 11-29-2024 End: 11-29-2024 Patient encounter procedure [facility] Start: 11-26-2024 Influenza vaccination Influenza Vaccine (#1) [facility] Start: 10-10-2024 Hemoglobin A1c measurement Diabetes: Hemoglobin A1C [facility] Start: 10-06-2024 Urine screening for protein Diabetes: Urine Protein Screening [facility] Start: 09-26-2024 End: 09-26-2024 Patient encounter procedure [facility] Comment on above: Dizziness and giddiness (Primary Dx); Pulmonary hypertension, unspecified (HCC); Primary hypertension Start: 08-15-2024 End: 08-15-2024 Patient encounter procedure [facility] Comment on above: Encounter for subsequent annual wellness visit (AWV) in Medicare patient (Primary Dx); CORNELIA (obstructive sleep apnea); Centrilobular emphysema (CMS/HCC); Paroxysmal atrial fibrillation (CMS/HCC); Bilateral carotid artery disease, unspecified type ([facility]/HCC); Primary hypertension ([facility]/HCC); Type 2 diabetes mellitus without complication, with long-term current use of insulin; Type 2 diabetes mellitus with other specified complication, with long-term current use of insulin; Mixed hyperlipidemia (CMS/HCC) Start: 06-12-2024 End: 05-15-2025 CBC W Auto Differential panel - Blood CBC and differential Lab Routine Paroxysmal atrial fibrillation (CMS/HCC) Iron deficiency anemia, unspecified iron deficiency anemia type Expected: 06/12/2024 (Approximate), Expires: 05/15/2025 [facility] Work Phone: Comment on above: Expected: 06/12/2024 (Approximate), Expi res: 05/15/2025 Start: 06-12-2024 End: 05-15-2025 Comprehensive metabolic 2000 panel - Serum or Plasma Comprehensive metabolic panel Lab Routine Type 2 diabetes mellitus with other specified complication ([facility]/HCC) Coronary artery disease 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 angina pectoris ([facility]/HCC) Primary hypertension ([facility]/HCC) Mixed hyperlipidemia ([facility]/HCC) Expected: 06/12/2024 (Approximate), Expires: 05/15/2025 [facility] Comment on above: Expected: 06/12/2024 (Approximate), Expi res: 05/15/2025 Start: 06-12-2024 End: 05-15-2025 Hemoglobin A1c/Hemoglobin.total in Blood Hemoglobin A1c Lab Routine Type 2 diabetes mellitus without complication, with long-term current use of insulin ([facility]/HCC) Expected: 06/12/2024 (Approximate), Expires: 05/15/2025 [facility] Comment on above: Expected: 06/12/2024 (Approximate), Expi res: 05/15/2025 Start: 06-12-2024 End: 05-15-2025 Iron and Iron binding capacity panel - Serum or Plasma Iron level Lab Routine Iron deficiency anemia, unspecified iron deficiency anemia type Expected: 06/12/2024 (Approximate), Expires: 05/15/2025 [facility] Comment on above: Expected: 06/12/2024 (Approximate), Expi res: 05/15/2025 Start: 06-12-2024 End: 05-15-2025 Lipid 1996 panel - Serum or Plasma Lipid panel Lab Routine Mixed hyperlipidemia (CMS/HCC) Expected: 06/12/2024 (Approximate), Expires: 05/15/2025 [facility] Comment on above: Expected: 06/12/2024 (Approximate), Expi res: 05/15/2025 Start: 06-12-2024 End: 05-15-2025 Microalbumin/Creatinine panel in random Urine Microalbumin / creatinine, urine ratio Lab Routine Primary hypertension (CMS/HCC) Type 2 diabetes mellitus without complication, with long-term current use of insulin (CMS/HCC) Expected: 06/12/2024 (Approximate), Expires: 05/15/2025 [facility] Comment on above: Expected: 06/12/2024 (Approximate), Expi res: 05/15/2025 Start: 06-12-2024 End: 05-15-2025 Urinalysis complete panel - Urine Urinalysis with refl ex microscopic (clean catch) Lab Routine Primary hypertension (CMS/HCC) Type 2 diabetes mellitus without complication, with long-term current use of insulin (CMS/HCC) Expected: 06/12/2024 (Approximate), Expires: 05/15/2025 [facility] Comment on above: Expected: 06/12/2024 (Approximate), Expi res: 05/15/2025 Start: 06-11-2024 Hemoglobin A1c measurement Diabetes: Hemoglobin A1C [facility] Start: 06-06-2024 Medicare Annual Wellness (AWV) Medicare Annual Wellness (AWV) [facility] Start: 05-15-2024 End: 05-15-2024 Patient encounter procedure [facility] Comment on above: Coronary artery disease 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 angina pectoris (CMS/HCC) (Primary Dx); Centrilobular emphysema (CMS/HCC); Type 2 diabetes mellitus with other specified complication ([facility]/HCC); Erectile dysfunction due to diseases classified elsewhere; Type 2 diabetes mellitus 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 ([facility]/HCC); Paroxysmal atrial fibrillation ([facility]/HCC); Primary hypertension ([facility]/HCC); PAD (peripheral artery disease) ([facility]/HCC); Type 2 diabetes mellitus without complication, with long-term current use of insulin ([facility]/HCC); Iron deficiency anemia, unspecified iron deficiency anemia type; Mixed hyperlipidemia ([facility]/HCC) Start: 05-04-2024 Urine screening for protein Diabetes: Urine Protein Screening [facility] Start: 04-03-2024 End: 04-03-2024 Patient encounter procedure 04/03/2024 10:30 AM EST Office Visit [facility] General Surgery [address] [place] [address] Marlin Koch APRN-MACHINE BOBBIN WINDER [address] [place] [address] [facility] Start: 03-26-2024 End: 03-26-2024 Clinical Support 03/26/2024 10:30 AM EST Clinical Support [facility] [address] [place] [address] [facility] Start: 03-22-2024 End: 03-22-2024 Clinical Support 03/22/2024 10:30 AM EST Clinical Support [facility] [address] [place] [address] [facility] Start: 03-12-2024 End: 03-12-2024 Clinical Support 03/12/2024 10:30 AM EST Clinical Support [facility] [address] [place] [address] [facility] Start: 03-08-2024 End: 03-08-2024 Clinical Support 03/08/2024 10:30 AM EST Clinical Support [facility] [address] [place] [address] [facility] Start: 03-07-2024 End: 03-07-2024 Clinical Support 03/07/2024 10:30 AM EST Clinical Support [facility] [address] [place] [address] [facility] Start: 03-05-2024 End: 03-05-2024 Patient encounter procedure 03/05/2024 11:45 AM EST Office Visit [facility] General Surgery [address] [place] [address] Marlin Koch, GROUNDS SUPERVISOR-MACHINE BOBBIN WINDER [address] [place] [address] [facility] Start: 03-05-2024 End: 03-05-2024 Clinical Support 03/05/2024 10:30 AM EST Clinical Support [facility] [address] [place] [address] [facility] Start: 03-01-2024 End: 03-01-2024 Clinical Support 03/01/2024 10:30 AM EST Clinical Support [facility] [address] [place] [address] [facility] Start: 02-29-2024 End: 02-14-2025 Hemoglobin A1c/Hemoglobin.total in Blood Hemoglobin A1c Lab Routine Type 2 diabetes mellitus without complication, with long-term current use of insulin ([facility]) Expected: 02/29/2024 (Approximate), Expires: 02/14/2025 [facility] Work Phone: Comment on above: Expected: 02/29/2024 (Approximate), Expi res: 02/14/2025 Start: 02-29-2024 End: 02-29-2024 Clinical Support 02/29/2024 10:30 AM EST Clinical Support [facility] [address] [place] [address] [facility] Start: 02-28-2024 Hemoglobin A1c measurement Diabetes: Hemoglobin A1C [facility] Start: 02-27-2024 End: 02-27-2024 Clinical Support 02/27/2024 10:30 AM EST Clinical Support [facility] [address] [place] [address] [facility] Start: 02-22-2024 End: 02-22-2024 Clinical Support 02/22/2024 10:30 AM EST Clinical Support [facility] [address] [place] [address] [facility] Start: 02-20-2024 End: 02-20-2024 Clinical Support 02/20/2024 10:30 AM EST Clinical Support [facility] [address] [place] [address] [facility] Start: 02-16-2024 End: 02-16-2024 Clinical Support 02/16/2024 10:30 AM EST Clinical Support [facility] [address] [place] [address] [facility] Start: 02-15-2024 End: 02-15-2024 Patient encounter procedure [facility] Comment on above: Primary hypertension (CMS/HCC) (Primary Dx); PAD (peripheral artery disease) (CMS/HCC); 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 pectoris (CMS/HCC); Riley's esophagus with dysplasia; Erectile dysfunction due to diseases classified elsewhere; Benign prostatic hyperplasia with lower urinary tract symptoms, symptom details unspecified; Type 2 diabetes mellitus without complication, with long-term current use of insulin (CMS/HCC); Colon cancer screening Start: 02-15-2024 End: 02-15-2024 Clinical Support 02/15/2024 10:30 AM EST Clinical Support [facility] [address] [place] [address] [facility] Start: 02-13-2024 End: 02-13-2024 Clinical Support 02/13/2024 10:30 AM EST Clinical Support [facility] [address] [place] [address] [facility] Start: 02-09-2024 End: 02-09-2024 Clinical Support 02/09/2024 10:30 AM EST Clinical Support [facility] [address] [place] [address] [facility] Start: 02-08-2024 End: 02-08-2024 Clinical Support 02/08/2024 10:30 AM EST Clinical Support [facility] [address] [place] [address] [facility] Start: 02-06-2024 End: 02-06-2024 Clinical Support 02/06/2024 10:30 AM EST Clinical Support [facility] [address] [place] [address] [facility] Start: 02-02-2024 End: 02-02-2024 Clinical Support 02/02/2024 10:30 AM EST Clinical Support [facility] [address] [place] [address] [facility] Start: 02-01-2024 End: 02-01-2024 Clinical Support 02/01/2024 10:30 AM EST Clinical Support [facility] [address] [place] [address] [facility] Start: 01-30-2024 End: 01-30-2024 Clinical Support 01/30/2024 10:30 AM EST Clinical Support [facility] [address] [place] [address] [facility] Start: 01-26-2024 End: 01-26-2024 Clinical Support 01/26/2024 10:30 AM EDT Clinical Support [facility] [address] [place] [address] [facility] Start: 01-25-2024 End: 01-25-2024 Clinical Support 01/25/2024 10:30 AM EDT Clinical Support [facility] [address] [place] [address] [facility] Start: 01-23-2024 End: 01-23-2024 Clinical Support 01/23/2024 10:30 AM EDT Clinical Support [facility] [address] [place] [address] [facility] Start: 01-19-2024 End: 01-19-2024 Clinical Support 01/19/2024 10:30 AM EDT Clinical Support [facility] [address] [place] [address] [facility] Start: 01-18-2024 End: 01-18-2024 Clinical Support 01/18/2024 10:30 AM EDT Clinical Support [facility] [address] [facility] [facility] [place] [address] [facility] Start: 01-16-2024 End: 01-16-2024 Clinical Support 01/16/2024 10:30 AM EDT Clinical Support [facility] [address] [place] [address] [facility] Start: 01-12-2024 End: 01-12-2024 Clinical Support 01/12/2024 10:30 AM EDT Clinical Support [facility] [address] [place] [address] [facility] Start: 01-11-2024 End: 01-11-2024 Clinical Support 01/11/2024 10:30 AM EDT Clinical Support [facility] [address] [place] [address] [facility] Start: 01-09-2024 End: 01-09-2024 Clinical Support 01/09/2024 10:30 AM EDT Clinical Support [facility] [address] [place] [address] [facility] Start: 01-05-2024 End: 01-05-2024 Clinical Support 01/05/2024 10:30 AM EDT Clinical Support [facility] [address] [place] [address] [facility] Start: 01-04-2024 End: 01-03-2025 XR Thoracic spine 3 Views XR thoracic spine 3 views Imaging Routine Chronic thoracic back pain, unspecified back pain laterality Expected: 01/04/2024, Expires: 01/03/2025 [facility] Work Phone: Comment on above: Expected: 01/04/2024, Expires: Start: 01-04-2024 End: 01-04-2024 Patient encounter procedure [facility] Comment on above: Arrived Start: 01-03-2024 Hemoglobin A1c measurement Diabetes: Hemoglobin A1C [facility] Start: 01-02-2024 End: 01-02-2024 Clinical Support 01/02/2024 10:30 AM EDT Clinical Support [facility] [address] [place] [address] [facility] Start: 12-29-2023 End: 12-29-2023 Clinical Support 12/29/2023 10:30 AM EDT Clinical Support [facility] [address] [place] [address] [facility] Start: 12-28-2023 End: 12-28-2023 Clinical Support 12/28/2023 10:30 AM EDT Clinical Support [facility] [address] [place] [address] [facility] Start: 12-26-2023 End: 12-26-2023 Clinical Support 12/26/2023 10:30 AM EDT Clinical Support [facility] [address] [place] [address] [facility] Start: 12-22-2023 End: 12-22-2023 Clinical Support 12/22/2023 10:30 AM EDT Clinical Support [facility] [address] [place] [address] [facility] Start: 12-21-2023 End: 12-21-2023 Clinical Support 12/21/2023 10:30 AM EDT Clinical Support [facility] [address] [place] [address] [facility] Start: 11-28-2023 Glaucoma screening Diabetes: Retinopathy Screening [facility] Comment on above: Postponed from 1956 (Other Patient Reasons) Start: 11-27-2023 COVID-19 Vaccine ( season) COVID-19 Vaccine () [facility] Start: 11-27-2023 COVID-19 Vaccine () COVID-19 Vaccine () [facility] Start: 11-27-2023 Influenza vaccination [facility] Start: 11-22-2023 End: 11-22-2023 Patient encounter procedure 11/22/2023 11:20 AM EDT [facility] [address] [place] [address] Marisol Boyce, CATALINA [address] [place] [id number] Other thrombophilia (CMS/HCC) [facility] Comment on above: Other thrombophilia (CMS/HCC) Start: 10-27-2023 Screening for malignant neoplasm of colon [facility] Start: 08-02-2023 Hemoglobin A1c measurement Diabetes: Hemoglobin A1C [facility] Start: 07-23-2023 Adult BMI Screening Adult BMI Screening [facility] Start: 07-23-2023 Tobacco Screening Tobacco Screening [facility] Start: 06-24-2023 Screening for malignant neoplasm of colon [facility] Start: 06-12-2023 Urine screening for protein Diabetes: Urine Protein Screening [facility] Start: 06-07-2023 End: 06-07-2023 Patient encounter procedure 06/07/2023 10:30 AM EDT [facility] [address] [place] [id number] Marisol Boyce, PRESS BRAKE OPERATOR [address] [place] [address] [facility] Start: 03-14-2023 Hemoglobin A1c measurement Diabetes: Hemoglobin A1C [facility] Start: 10-26-2021 Screening for malignant neoplasm of colon Colonoscopy [facility] Start: 05-07-2014 Administration of varicella zoster vaccine Zoster (Shingles) Vaccine (2 of 3) [facility] Start: 09-14-2011 Abdominal aortic aneurysm screening Abdominal Aortic Aneurysm (AAA) Screen [facility] Start: 09-14-2011 Fall Risk Screening Fall Risk Screening [facility] Start: 1965 DTaP,Tdap and Td Vaccines (1 - Tdap) DTaP,Tdap and Td Vaccines (1 - Tdap) [facility] Start: 1958 Depression Screening Depression Screening [facility] Start: 1956 Glaucoma screening Diabetes: Retinopathy Screening [facility] Start: 1946 Medicare Annual Wellness (AWV) Medicare Annual Wellness (AWV) [facility] Start: 1946 Medicare Annual Wellness Visit Medicare Annual Wellness Visit [facility] Start: 1946 Screening for malignant neoplasm of colon [facility] Start: 1946 Tobacco Counseling Tobacco Counseling [facility] Cardiopulmonary rehabilitation [facility] Ordered: 03/19/2024 [facility] Comment on above: Ordered: 03/19/2024 Cardiopulmonary rehabilitation [facility] Ordered: 03/22/2024 [facility] Comment on above: Ordered: 03/22/2024 Cardiopulmonary rehabilitation [facility] Ordered: 12/26/2023 [facility] Comment on above: Ordered: 12/26/2023 Cardiopulmonary rehabilitation [facility] Ordered: 12/28/2023 [facility] Comment on above: Ordered: 12/28/2023 Cardiopulmonary rehabilitation [facility] Ordered: 01/02/2024 [facility] Comment on above: Ordered: 01/02/2024 Cardiopulmonary rehabilitation [facility] Ordered: 01/04/2024 [facility] Comment on above: Ordered: 01/04/2024 Cardiopulmonary rehabilitation [facility] Ordered: 01/05/2024 [facility] Comment on above: Ordered: 01/05/2024 Cardiopulmonary rehabilitation [facility] Ordered: 01/11/2024 [facility] Comment on above: Ordered: 01/11/2024 Cardiopulmonary rehabilitation [facility] Ordered: 01/12/2024 [facility] Comment on above: Ordered: 01/12/2024 Cardiopulmonary rehabilitation [facility] Ordered: 12/19/2023 [facility] Comment on above: Ordered: 12/19/2023 Cardiopulmonary rehabilitation [facility] Ordered: 01/16/2024 [facility] Comment on above: Ordered: 01/16/2024 Cardiopulmonary rehabilitation [facility] Ordered: 12/21/2023 [facility] Comment on above: Ordered: 12/21/2023 Cardiopulmonary rehabilitation [facility] Ordered: 01/19/2024 [facility] Comment on above: Ordered: 01/19/2024 Cardiopulmonary rehabilitation [facility] Ordered: 12/22/2023 [facility] Comment on above: Ordered: 12/22/2023 Cardiopulmonary rehabilitation [facility] Ordered: 01/18/2024 [facility] Comment on above: Ordered: 01/18/2024 Cardiopulmonary rehabilitation [facility] Ordered: 01/25/2024 [facility] Comment on above: Ordered: 01/25/2024 Cardiopulmonary rehabilitation [facility] Ordered: 01/26/2024 [facility] Comment on above: Ordered: 01/26/2024 Cardiopulmonary rehabilitation [facility] Ordered: 02/02/2024 [facility] Comment on above: Ordered: 02/02/2024 Cardiopulmonary rehabilitation [facility] Ordered: 02/08/2024 [facility] Comment on above: Ordered: 02/08/2024 Cardiopulmonary rehabilitation [facility] Ordered: 02/06/2024 [facility] Comment on above: Ordered: 02/06/2024 Cardiopulmonary rehabilitation [facility] Ordered: 02/09/2024 [facility] Comment on above: Ordered: 02/09/2024 Cardiopulmonary rehabilitation [facility] Ordered: 02/13/2024 [facility] Comment on above: Ordered: 02/13/2024 Cardiopulmonary rehabilitation [facility] Ordered: 02/15/2024 [facility] Comment on above: Ordered: 02/15/2024 Cardiopulmonary rehabilitation [facility] Ordered: 02/16/2024 [facility] Comment on above: Ordered: 02/16/2024 Cardiopulmonary rehabilitation [facility] Ordered: 02/20/2024 [facility] Comment on above: Ordered: 02/20/2024 Cardiopulmonary rehabilitation [facility] Ordered: 02/22/2024 [facility] Comment on above: Ordered: 02/22/2024 Cardiopulmonary rehabilitation [facility] Ordered: 03/08/2024 [facility] Comment on above: Ordered: 03/08/2024 End: 03-05-2025 Colonoscopy Colonoscopy GI Routine Encounter for colonoscopy due to history of colonic polyp 1 Occurrences starting 03/05/2024 until 03/05/2025 [facility] Work Phone: Comment on above: 1 Occurrences starting 03/05/2024 until 03/05/2025 End: 03-05-2025 Esophagogastroduodenoscopy EGD GI Routine 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 1 Occurrences starting 03/05/2024 until 03/05/2025 [facility] Comment on above: 1 Occurrences starting 03/05/2024 until 03/05/2025 Immunizations Immunization Date Immunization Notes Care Provider Roma espinosa 02-09-2024 influenza, high dose seasonal, preservative-free Marisol Aichholz PRESS BRAKE OPERATOR Work Phone: [facility] 02-09-2024 influenza virus vacc ine, unspecified formulation [facility] 02-15-2023 influenza virus vacc ine, unspecified formulation Marisol Aichholz PRESS BRAKE OPERATOR Work Phone: [facility] 02-15-2023 pneumococcal polysaccharide vaccine, 23 valent Marisol Aichholz PRESS BRAKE OPERATOR Work Phone: [facility] 01-31-2023 influenza virus vacc ine, unspecified formulation YAMILEX ARMSTRONG [facility] 01-31-2023 Influenza, High-dose Seasonal, Quadrivalent, Preservative Free Marisol Aichholz PRESS BRAKE OPERATOR Work Phone: [facility] 03-11-2022 SARS-CoV-2 (COVID-19 ) [id number] Deja Luemmanuel [facility] 02-12-2022 influenza virus vacc ine, unspecified formulation Deja Lue [facility] 02-12-2022 Influenza, High-dose Seasonal, Quadrivalent, Preservative Free Marisol Aichholz PRESS BRAKE OPERATOR Work Phone: [facility] 10-17-2021 influenza virus vacc ine, unspecified formulation Marisol Aichholz PRESS BRAKE OPERATOR Work Phone: [facility] 10-17-2021 pneumococcal polysaccharide vaccine, 23 valent Marisol Aichholz PRESS BRAKE OPERATOR Work Phone: [facility] 08-06-2021 SARS-CoV-2 mRNA (iuyuirenqin-[id number]-dcdlhi e) vaccine Deja Perez [facility] 02-02-2021 influenza virus vacc ine, unspecified formulation Deja Perez [facility] 02-02-2021 Influenza, High-dose Seasonal, Quadrivalent, Preservative Free Marisol Aichholz PRESS BRAKE OPERATOR Work Phone: [facility] 01-05-2021 SARS-CoV-2 (COVID-19 ) mRNA BNT-162b2 vax Deja Perez [facility] 05-29-2020 SARS-CoV-2 (COVID-19 ) mRNA-1273 vaccine Carlitos RICE [facility] 05-21-2020 SARS-CoV-2 (COVID-19 ) mRNA BNT-162b2 vax Deja Lue [facility] Comment on above: Result Comment: 2022: [id number] 05-08-2020 SARS-CoV-2 (COVID-19 ) mRNA-1273 vaccine Carlitos MAYA [facility] 05-01-2020 SARS-CoV-2 (COVID-19 ) mRNA BNT-162b2 vax Deja Lue [facility] Comment on above: Result Comment: 2022: [id number] 11-30-2019 influenza virus vacc ine, unspecified formulation Deja Lue [facility] 11-30-2019 Influenza, High-dose Seasonal, Quadrivalent, Preservative Free Marisol Aichholz PRESS BRAKE OPERATOR Work Phone: [facility] 11-30-2019 pneumococcal conjuga te vaccine, 13 valent Deja Lue [facility] 11-27-2019 influenza virus vacc ine, unspecified formulation Carlitos ZULMA [facility] 12-29-2018 influenza virus vacc ine, unspecified formulation Deja Lue [facility] 12-29-2018 Seasonal trivalent influenza vaccine, adjuvanted, preservative free Marisol Aichholz PRESS BRAKE OPERATOR Work Phone: [facility] 01-28-2018 influenza virus vacc ine, unspecified formulation Deja Lue [facility] 01-28-2018 influenza, high dose seasonal, preservative-free Marisol Aichholz PRESS BRAKE OPERATOR Work Phone: [facility] 02-11-2017 influenza virus vacc ine, unspecified formulation Deja Lue [facility] 02-11-2017 Seasonal trivalent influenza vaccine, adjuvanted, preservative free Marisol Aichholz PRESS BRAKE OPERATOR Work Phone: [facility] 01-17-2015 influenza virus vacc ine, unspecified formulation Deja Lue [facility] 01-17-2015 influenza, high dose seasonal, preservative-free Marisol Aichholz PRESS BRAKE OPERATOR Work Phone: [facility] 12-10-2014 pneumococcal polysaccharide vaccine, 23 valent Deja Lue [facility] 03-12-2014 influenza virus vacc ine, unspecified formulation Deja Lue [facility] 03-12-2014 influenza, seasonal, injectable Marisol Aichholz PRESS BRAKE OPERATOR Work Phone: [facility] 03-12-2014 zoster vaccine, live Deja L ue [facility] 03-12-2014 zoster vaccine, unspecified formulation [facility] 01-10-2013 influenza virus vacc ine, unspecified formulation Deja Lue [facility] 01-10-2013 influenza, seasonal, injectable Marisol Aichholz PRESS BRAKE OPERATOR Work Phone: [facility] Payers Date Payer Category Payer Self-pay 2021 Private Health Insurance [employer] [id number] 2018 [facility] Member Subscriber Plan / Payer (Effective 2018-Present) Name: Kimmy Mcarthur Relation to Subscriber: Self Name: Kimmy Mcarthur Payer ID: Not on file Type: Not on file Address: [place] [id number] 2018 Unknown [id number] 2012 Medicare [id number]. [id number] 1959 Medicare [id number] 1959 Unknown [id number] 1946 Unknown [id number] .840.1.282987.3.579.2. 593 1946 Unknown [id number] 2.840.1.048321.3.579.2. 593 1946 Unknown [id number] 2.840.1.716678.3.579.2. 59 1946 Unknown [id number] .840.1.505270.3.579.2. 593 1946 Unknown [id number] 2.840.1.759315.3.579.2. 593 1946 Unknown [id number] 2.16.840.1.976340.3.579.2. 1285 1946 Unknown [id number] 2.16.840.1.210674.3.579.2. 1285 1946 Unknown [id number] 2.16.840.1.823795.3.579.2. 1285 1946 Unknown [id number] 2.16.840.1.788314.3.579.2. 1285 1946 Unknown [id number] 2.16.840.1.345687.3.579.2. 1285 1946 Unknown [id number] 2.840.1.365722.3.579.2. 1285 1946 Unknown [id number] 2.840.1.899577.3.579.2. 1285 1946 Unknown [id number] 2.16840.1.841893.3.579.2. 1285 1946 Unknown [id number] 2.840.1.919487.3.579.2. 1285 1946 Unknown [id number] 2.16.840.1.019005.3.579.2. 1285 1946 Unknown [id number] 2.16840.1.024133.3.579.2. 1285 1946 Unknown [id number] 2.16.840.1.760988.3.579.2. 1285 1946 Unknown [id number] 2.16840.1.405327.3.579.2. 1285 1946 Unknown [id number] 2.16.840.1.176988.3.579.2. 1285 1946 Unknown [id number] 2.16.840.1.743028.3.579.2. 1285 1946 Unknown [id number] 2.16.840.1.115431.3.579.2. 1285 1946 Unknown [id number] 2.16.840.1.818513.3.579.2. 1285 1946 Unknown [id number] 2.16.840.1.789866.3.579.2. 1285 1946 Unknown [id number] 2.16840.1.046163.3.579.2. 1285 1946 Unknown [id number] 2.16840.1.775598.3.579.2. 1285 1946 Unknown [id number] 2.840.1.665138.3.579.2. 1285 1946 Unknown [id number] 2.840.1.522275.3.579.2. 1285 1946 Unknown [id number] 2.840.1.043285.3.579.2. 1285 1946 Unknown [id number] 2.840.1.212452.3.579.2. 1285 1946 Unknown [id number] 2.840.1.045201.3.579.2. 1285 1946 Unknown [id number] 2.840.1.405596.3.579.2. 1285 1946 Unknown [id number] 2.840.1.994563.3.579.2. 1285 1946 Unknown [id number] 2.840.1.143191.3.579.2. 1285 1946 Unknown [id number] 2.16840.1.792049.3.579.2. 1285 1946 Unknown [id number] 2.16840.1.104493.3.579.2. 1285 1946 Unknown [id number] 2.16840.1.260859.3.579.2. 1285 1946 Unknown [id number] 2.16.840.1.453333.3.579.2. 1285 1946 Unknown [id number] 2.16.840.1.620936.3.579.2. 1285 1946 Unknown [id number] 2.16.840.1.147145.3.579.2. 1285 1946 Unknown [id number] 2.16.840.1.443673.3.579.2. 1285 1946 Unknown [id number] 2..840.1.352227.3.579.2. 1285 1946 Unknown [id number] 2.840.1.149681.3.579.2. 1285 1946 Unknown [id number] 2.840.1.489237.3.579.2. 1285 1946 Unknown [id number] 2.840.1.279243.3.579.2. 1285 1946 Unknown [id number] 2.840.1.712874.3.579.2. 1285 1946 Unknown [id number] 2.840.1.156977.3.579.2. 1285 1946 Unknown [id number] 2.840.1.434261.3.579.2. 1285 1946 Unknown [id number] 2.16.840.1.979006.3.579.2. 1285 1946 Unknown [id number] 2.16.840.1.992749.3.579.2. 1285 1946 Unknown [id number] 2.16.840.1.072028.3.579.2. 1285 1946 Unknown [id number] 2.16.840.1.866705.3.579.2. 727 1946 Unknown [id number] 2.16.840.1.480332.3.579.2. 727 1946 Unknown [id number] 2.16.840.1.997339.3.579.2. 727 1946 Unknown [id number] 2.16.840.1.468744.3.579.2. 727 1946 Unknown [id number] 2.16.840.1.253435.3.579.2. 1259 1946 Unknown [id number] 2.16.840.1.277050.3.579.2. 9 1946 Unknown [id number] 2.16.840.1.989201.3.579.2. 9 1946 Unknown [id number] 2.16.840.1.528168.3.579.2. 1259 1946 Unknown [id number] 2.16.840.1.613238.3.579.2. 1259 1946 Unknown [id number] 2.16.840.1.712972.3.579.2. 9 1946 Unknown [id number] 2.16.840.1.271349.3.579.2. 1259 Unknown [id number] 2.16.840.1.195191.3.579.2. 531 Social History Date Type Detail Facility Start: 06-18-2021 End: 04-11-2023 Tobacco smoking status Ex-smoker (finding) [facility] Start: 04-11-2023 End: 06-07-2023 Sex Assigned At Male [facility] Tobacco smoking status Never [facility] End: 03-28-2020 History of tobacco use Current smoker [facility] End: 03-28-2020 History of tobacco use Cigarette Smoker [facility] Start: 04-11-2023 End: 03-05-2024 Tobacco use and exposure Smokeless tobacco non-user [facility] Start: 04-11-2023 End: 09-26-2024 Alcohol intake Current drinker of alcohol (finding) [facility] Start: 04-11-2023 End: 06-07-2023 History of Social function [facility] Start: 04-10-2023 Alcohol Comment monthly or less [facility] Start: 1945 Sex Assigned At Not on file [facility] Within the last year , have you been afraid of your partner or ex-partner? No [facility] Are you now , , , , never or living with a partner? [facility] How often to you hav e a drink containing alcohol? Monthly or less [facility] How often do you hav e 6 or more drinks on 1 occasion? Never [facility] Do you feel stress - tense, restless, nervous, or anxious, or unable to sleep at night because your mind is troubled all the time - these days [OSQ] To some extent [facility] (I/We) worried wheth er (my/our) food would run out before (I/we) got money to buy more. Never true [facility] Start: 01-04-2017 Alcohol Comment [facility] Start: 03-05-2013 End: 10-31-2014 Sex Male (finding) [facility] Start: 04-04-2024 [facility] Start: 04-04-2024 Alcoholic beverage intake Ex-drinker (finding) [facility] Start: 04-04-2024 Tobacco Comment Pack every 3 w eeks as of 04/04/24 [facility] if ever smoked [facility] Work Phone: Start: 1945 Sex Assigned At Male F [facility] Sexual Orientation [facility] Medical Equipment Procedure Code Equipment Code Equipment Origin al Text Equipment Identifier Dates Start: 04-14-2019 End: 03-05-2024 Functional Status Date Assessment Result Facility 08-15-2024 Patient Health Questionnaire 2 item (PHQ-2) [Reported] [facility] 08-15-2024 How difficult have t hese problems made it for you to do your work, take care of things at home, or get along with other people? Not difficult at all 08/15/2024 10:50 AM EDT AB GRIFFITH Not difficult at all [facility] 07-11-2023 Functional Status N/A [facility] 06-18-2022 Functional Status N/A [facility] Clinical Notes 06-18-2021 to 10-09-2024 Marisol Boyce NP - 09/26/2024 10:15 AM EDAB RAPP - 09/26/2024 9:00 AM Cristiano Boyce, CATALINA - 09/26/2024 9:00 AM Cristiano Boyce NP - 09/26/2024 6:02 AM EDTPatient Instructions Note Date & Type Note Facility 10-09-2024 Note [facility] Cardiology Clinic Note Chief Complaint: Patient here for 6 mo follow up CAD, PAF, HFpEF, PAD, and valve disorder. Had FADY's in Mar 2024, and labs with lipid panel in June 2024. Denies chest pain and SOB. C/o dizziness. HPI: Kimmy Mcarthur is a 78 y.o. male With a history of coronary artery disease He is doing well; he is asymptomatic He states that he is somewhat fatigued and his is concerned that he sleeps a lot Pertinently, he denies exertional chest pain, shortness of breath, palpitations, lightheadedness or dizziness UPDATE 03/14/2024 Cardiology ROS:Review of Systems Hematologic/Lymphatic: Bruises/bleeds easily. Neurological: Positive for dizziness and light-headedness. All other systems reviewed and are negative. UPDATE 10/13/2023 Hospital Medicine Discharge Summary Final Discharge Diagnosis: 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 pectoris ([facility]/HCC) Admission Diagnosis: A-fib (CMS/[facility]) [I48.91] Hospital course: 78 yo M with history of multivessel CAD s/p RCA stent 2022, HFpEF, MVR, HTN, PAD, IDDM2 who presented to outside ED with chest pressure and was found to be in Afib with RVR with rates up to 150s. Troponin was elevated at 100. He was given Cardizem, which converted him to sinus, and he was transferred to [facility]. He was placed on ASA/Plavix as well [...] in stable condition on 10/07/23. Dear Dr. aCrli MD Kimmy is advised to follow up with you within 1-2 weeks. Follow-up with: Cardiology, CHF clinic, and CT Surgery Scheduled appointments: Future Appointments Date Time Provider Department Center 10/13/2023 11:00 AM Natasha Campo MD [facility] 11/07/2023 7:30 AM [facility] MR 2 [facility] ORTH MR MPORTHO 11/08/2023 2:00 PM [facility] Christensen MD [facility] Your medication list START taking [...] Your Medications These medications were sent to [facility] [address] [address] ??? amiodarone 200 mg tablet ??? carvedilol 3.125 mg tablet ??? lisinopril 20 mg tablet These medications were sent to [facility] (more content not included)... [facility] 09-26-2024 History of Present illness Narrative Associated Problem(s): Type 2 diabetes mellitus without complication, with long-term current use of insulin (HCC) Check blood sugars daily, notify if <70 [...] colleen, farxiga, insulin, metformin A1c: 6.3% 07/11/24 Pt would like to discuss his dizziness he states it does not seem to be getting any better and he has not noticed any changes. Pt states he's unsure if it is vertigo or medication induced. He usually is fine when sitting its about every time he stands up. It use to go away after about 15-20 sec however he has noticed that it seems to be lasting longer maybe for a minute or so. Images from the original note were not included. Kimmy Mcarthur is a 79 y.o. male presents with chief complaint of Diabetes HPI: CGM reads: 7 day: avg 180, 51% in range, 34% high, 13% very high 14 day: avg 171, 59% in range, 31% high, 9% very high GMI 7.4% 30 day: avg 158, 64% in range, 28% high, 6% very high, GMI 7.1% 90 day: avg 162, 62% in range, 27% high, 8% very high, GMI 7.2% Dizziness: feeling on boat, only with standing and starting to walk, used to last a few seconds now about a minute No weakness, or stroke type sxs, Ortho statics: lyin/60, sitting 142/68, standing 142/62, left arm regular cuff Diabetes He presents for his follow-up diabetic visit. He has type 2 diabetes mellitus. His disease course has been fluctuating. Hypoglycemia symptoms include dizziness. Pertinent negatives for hypoglycemia include no nervousness/anxiousness, seizures or tremors. Pertinent negatives for diabetes include no polydipsia, no polyphagia and no polyuria. There are no hypoglycemic complications. Symptoms are stable. Diabetic complications include heart disease and PVD. Risk factors for coronary artery disease include diabetes mellitus, dyslipidemia, hypertension and male sex. Current diabetic treatment includes oral agent (triple therapy). SUBJECTIVE: MEDICATIONS: Current Outpatient Medications Medication Instructions amiodarone (PACERONE) 200 mg, Daily apixaban (ELIQUIS) 5 mg, 2 times daily Aspirin Low Dose 81 mg, Daily atorvastatin (LIPITOR) 80 mg, Daily carvedilol (COREG) 3.125 mg, 2 times daily with meals dapagliflozin (Farxiga) 5 MG Take by mouth ezetimibe (ZETIA) 10 mg, Nightly Lantus SoloStar 50 Units, Subcutaneous, Daily, Pt to take up to a total of 50 units daily lisinopril 20 mg, Daily metFORMIN (GLUCOPHAGE) 500 mg, Oral, 2 times daily with meals omeprazole (PRILOSEC) 40 mg, Oral, Daily before breakfast OneTouch Verio test strip 1 each, Daily tamsulosin (FLOMAX) 0.4 mg, Oral, Nightly ALLERGIES: No Known Allergies REVIEW OF SYMPTOMS: Review of Systems Constitutional: Negative for activity change, appetite change and unexpected weight change. HENT: Negative for ear pain, nosebleeds, sneezing, trouble swallowing and voice change. Eyes: Negative for pain, discharge and visual disturbance. Respiratory: Negative for apnea, chest tightness and wheezing. Cardiovascular: Negative for leg swelling. Gastrointestinal: Negative for abdominal distention, blood in stool, constipation and diarrhea. Genitourinary: Negative for decreased urine volume, difficulty urinating, dysuria and hematuria. Skin: Negative for color change. Neurological: Positive for dizziness. Negative for tremors and seizures. Psychiatric/Behavioral: Negative for agitation, decreased concentration, hallucinations, self-injury and suicidal ideas. The patient is not nervous/anxious. Hematological: Negative for adenopathy. Does not bruise/bleed easily. Endocrine: Negative for cold intolerance, heat intolerance, polydipsia, polyphagia and polyuria. Allergic/Immunologic: Negative for environmental allergies and food allergies. 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 Bilateral carotid artery disease, unspecified type 06/07/2023 BPH (benign prostatic hyperplasia) 06/07/2023 Cervical spinal stenosis 06/07/2023 Coronary artery disease 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 angina pectoris 03/02/2023 COVID-19 virus detected Depression Erectile dysfunction 06/07/2023 Fatigue Granuloma annulare Hearing loss, bilateral Hyperlipidemia 06/07/2023 WESTLEY (iron deficiency anemia) 04/11/2023 Lumbar spondylosis Lumbosacral pain 04/11/2023 CORNELIA (obstructive sleep apnea) 06/07/2023 PAD (peripheral artery disease) 03/25/2023 Primary hypertension 04/11/2023 Tobacco user 06/07/2023 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) 03/22/2023 Past Surgical History: Procedure Laterality Date CATARACT EXTRACTION, BILATERAL CHOLECYSTECTOMY CORONARY STENT PLACEMENT CT ANGIOGRAM HEART CORONARY 10/04/2023 CT ANGIOGRAM TAVR 10/04/2023 CT ANGIOGRAM NECK 03/08/2021 CT ANGIOGRAM NECK family history includes Cancer in his father; Diabetes in his father; Heart disease in his father. OBJECTIVE: Visit Vitals BP 128/60 (BP Location: Left arm, Patient Position: Sitting, BP Cuff Size: Adult long) Pulse 60 Temp 97.8 F (Temporal) Resp 18 Wt 167 lb 12.8 oz SpO2 98% BMI 22.76 kg/m Smoking Status Former BSA 1.97 m Physical Exam Vitals and nursing note reviewed. Constitutional: Appearance: Normal appearance. HENT: Head: Normocephalic. Right Ear: Tympanic membrane, ear canal and external ear normal. Left Ear: Tympanic membrane, ear canal and external ear normal. Nose: Nose normal. No congestion or rhinorrhea. Mouth/Throat: Mouth: Mucous membranes are moist. Pharynx: Oropharynx is clear. No posterior oropharyngeal erythema. Eyes: Extraocular Movements: Extraocular movements intact. Conjunctiva/sclera: Conjunctivae normal. Neck: Vascular: Carotid bruit (left) present. Cardiovascular: Rate and Rhythm: Normal rate and regular rhythm. Pulses: Normal pulses. Heart sounds: Murmur heard. Pulmonary: Effort: Pulmonary effort is normal. Breath sounds: Normal breath sounds. No wheezing or rhonchi. Abdominal: General: Bowel sounds are normal. Palpations: Abdomen is soft. Musculoskeletal: Cervical back: Neck supple. Right lower leg: No edema. Left lower leg: No edema. Lymphadenopathy: Cervical: No cervical adenopathy. Skin: General: Skin is warm and dry. Capillary Refill: Capillary refill takes 2 to 3 seconds. Neurological: General: No focal deficit present. Mental Status: He is alert. Cranial Nerves: No cranial nerve deficit. Coordination: Coordination normal. Gait: Gait normal. Comments: Neg romberg and ulnar drift Psychiatric: Mood and Affect: Mood normal. Behavior: Behavior normal. Thought Content: Thought content normal. Judgment: Judgment normal. ASSESSMENT AND PLAN: Follow up in about 2 months (around 11/27/2024) for Recheck. Problem List Items Addressed This Visit Type 2 diabetes mellitus without complication, with long-term current use of insulin ([facility]) Check blood sugars daily, notify if <70 [...] colleen, farxiga, insulin, metformin A1c: 6.3% 07/11/24 Primary hypertension Please check blood pressure daily and record DASH diet Limit caffeine Take medication as directed Contact office if chest pain, pressure, dizziness, shortness of breath, swelling legs Recommend slow position changes Cont current meds: lisinopril, carvedilol Clarification with [facility] at [facility] , lisinopril dose is 20mg daily, should not be filling lisinopril 5mg dose Also contacted the [facility] pharmacy to have them deactivate the lisinopril 5mg script spoke with Juliet at 10:18am Riley esophagus Relevant Medications omeprazole (PriLOSEC) [address] capsule Dizziness and giddiness - Primary Last appt had some mild orthostatic changes in BP Cardiology had him stop amlodipine No orthostatics today ?side effect meds, vs cervical pathology, vascular? Send to see neuro Relevant Orders Ambulatory referral to Neurology Other Visit Diagnoses Pulmonary hypertension, unspecified (HCC) Associated Problem(s): Primary hypertension Please check blood pressure daily and record DASH diet Limit caffeine Take medication as directed Contact office if chest pain, pressure, dizziness, shortness of breath, swelling legs Recommend slow position changes Cont current meds: lisinopril, carvedilol Clarification with [facility] at [facility] , lisinopril dose is 20mg daily, should not be filling lisinopril 5mg dose Also contacted the [facility] pharmacy to have them deactivate the lisinopril 5mg script spoke with Juliet at 10:18am Associated Problem(s): Dizziness and giddiness Last appt had some mild orthostatic changes in BP Cardiology had him stop amlodipine No orthostatics today ?side effect meds, vs cervical pathology, vascular? Send to see neuro documented in this encounter [facility] 09-26-2024 Telephone encounter Note Please contact company regarding his eliquis to see why he has not received it yet?? Also call pt let him know do NOT take the 5mg lisinopril, he should only be taking the 20mg lisinopril dose LA [facility] 09-26-2024 Miscellaneous Notes Please contact company regarding his eliquis to see why he has not received it yet?? Also call pt let him know do NOT take the 5mg lisinopril, he should only be taking the 20mg lisinopril dose LA documented in this encounter [facility] 09-26-2024 Instructions Marisol Boyce NP - 09/26/2024 9:00 AM EDT Neurology: will call you, Ed office We will clarify the lisinopril dose with heart doctor documented in this encounter [facility] 08-15-2024 History of Present illness Narrative Associated Problem(s): Dizziness and giddiness Only notes when getting up from sitting to standing Orthostatics in office: [id number] Sittin/56 Standin/54 I will reach out to cardiology to see if they feel an adjustment is needed in his blood pressure meds: He is also encouraged to drink more water daily Drinks decaf coffee, as well as 2 diet cokes daily Does not like the taste of water Pt states that his dizziness has gotten worse. 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 Kimmy Mcarthur is a 78 y.o. male presents with chief complaint of Medicare Annual Wellness Visit Initial HPI: Diet: tires Activity: not really Mental Health Concerns: none Falls in the last year: no Still driving:yes Do you pay your bills: yes Any hearing problems:no Any Vision problems: wears glasses, has upcoming eye appt Any Hospitalizations in the last year: no Specialist: HCPOA/Living Will: no Concerns: Pt states that his dizziness has gotten worse.: wobbly feeling, only with standing, usually last 5 minutes, not related with standing up. Never had vertigo He does physical activities such as mowing and moving furniture around- causing more back pain he knows that he does have herniated discs Pt states he was up in [place] for pain mgmt for injections that helped and he wouldn't mind getting a referral to do again Pt needs a refill on his metformin Pt states he has not heard from the [facility] Pt seen urologist Pt also had colonoscopy done [employer] Director October 09 CGM: 3 173 avg, 58% range, 36% high, 6 % very high 7 171avg, 61% range, 30% high, 9% very high 14 167 avg, GMI 7.3%, range63%, 31% high, 6% very high 30 158 avg, GMI 7,1%, range 64%, 26% high, 7% very high 90 164avg, 7.2% GMI, 60% range, 28% high, and 9% very high Diabetes He presents for his follow-up diabetic visit. He has type 2 diabetes mellitus. His disease course has been stable. Hypoglycemia symptoms include dizziness. Pertinent negatives for hypoglycemia include no nervousness/anxiousness, seizures or tremors. Pertinent negatives for diabetes include no blurred vision, no foot paresthesias, no polydipsia and no polyuria. There are no hypoglycemic complications. Diabetic complications include heart disease and PVD. Pertinent negatives for diabetic complications include no nephropathy or peripheral neuropathy. Risk factors for coronary artery disease include diabetes mellitus, dyslipidemia, hypertension and male sex. Current diabetic treatment includes insulin injections and oral agent (dual therapy). He is compliant with treatment all of the time. When asked about meal planning, he reported none. He rarely participates in exercise. His overall blood glucose range is 140-180 mg/dl. An COLLEEN inhibitor/angiotensin II receptor cesilia is being taken. 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 Hypertension This is a chronic problem. The current episode started more than 1 year ago. The problem is unchanged. The problem is controlled. Pertinent negatives include no blurred vision, palpitations, peripheral edema or shortness of breath. There are no associated agents to hypertension. Risk factors for coronary artery disease include diabetes mellitus, dyslipidemia, male gender and sedentary lifestyle. Past treatments include calcium channel blockers and COLLEEN inhibitors. There are no compliance problems. Hypertensive end-organ damage includes CAD/MT and PVD. There is no history of heart failure. SUBJECTIVE: MEDICATIONS: Current Outpatient Medications Medication Instructions amiodarone (PACERONE) 200 mg, Daily apixaban (ELIQUIS) 5 mg, 2 times daily Aspirin Low Dose 81 mg, Daily atorvastatin (LIPITOR) 80 mg, Daily carvedilol (COREG) 3.125 mg, 2 times daily with meals dapagliflozin (Farxiga) 5 MG Take by mouth ezetimibe (ZETIA) 10 mg, Nightly Lantus SoloStar 50 Units, Subcutaneous, Daily, Pt to take up to a total of 50 units daily lisinopril 20 mg, Daily metFORMIN (GLUCOPHAGE) 500 mg, Oral, 2 times daily with meals omeprazole (PRILOSEC) 40 mg, Oral, Daily before breakfast OneTouch Verio test strip 1 each, Other, Daily Semglee, yfgn, 100 UNIT/ML pen INJECT UP TO 50 UNITS UNDER THE SKIN EVERY DAY tamsulosin (FLOMAX) 0.4 mg, Oral, Nightly ALLERGIES: No Known Allergies REVIEW OF SYMPTOMS: Review of Systems Constitutional: Negative for activity change, appetite change and unexpected weight change. HENT: Negative for ear pain, nosebleeds, sneezing, trouble swallowing and voice change. Eyes: Negative for blurred vision, pain, discharge and visual disturbance. Respiratory: Negative for apnea, chest tightness, shortness of breath and wheezing. Cardiovascular: Negative for palpitations and leg swelling. Gastrointestinal: Negative for abdominal distention, blood in stool, constipation and diarrhea. Genitourinary: Negative for decreased urine volume, difficulty urinating, dysuria and hematuria. Skin: Negative for color change, rash and wound. Neurological: Positive for dizziness and numbness. Negative for tremors and seizures. Psychiatric/Behavioral: Negative for agitation, decreased concentration, hallucinations, self-injury and suicidal ideas. The patient is not nervous/anxious. Hematological: Negative for adenopathy. Does not bruise/bleed easily. Endocrine: Negative for cold intolerance, heat intolerance, polydipsia and polyuria. Allergic/Immunologic: Negative for environmental allergies and food allergies. 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) 06/07/2023 BPH (benign prostatic hyperplasia) 06/07/2023 Cervical spinal stenosis 06/07/2023 Coronary artery disease 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 angina pectoris ([facility]) 03/02/2023 COVID-19 virus detected Depression ([facility]) Erectile dysfunction 06/07/2023 Fatigue Granuloma annulare Hearing loss, bilateral Hyperlipidemia ([facility]) 06/07/2023 WESTLEY (iron deficiency anemia) 04/11/2023 Lumbar spondylosis Lumbosacral pain 04/11/2023 CORNELIA (obstructive sleep apnea) 06/07/2023 PAD (peripheral artery disease) ([facility]) 03/25/2023 Primary hypertension (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 OBJECTIVE: Visit Vitals BP 108/68 (BP Location: Left arm, Patient Position: Sitting, BP Cuff Size: Adult long) Pulse 51 Temp 98.5 F (Temporal) Resp 18 Wt 165 lb 6.4 oz SpO2 96% BMI 22.43 kg/m Smoking Status Former BSA 1.95 m Physical Exam Vitals and nursing note reviewed. Constitutional: Appearance: Normal appearance. He is not ill-appearing. HENT: Head: Normocephalic. Right Ear: External ear normal. Left Ear: External ear normal. Nose: Nose normal. Mouth/Throat: Mouth: Mucous membranes are moist. Pharynx: Oropharynx is clear. Eyes: Extraocular Movements: Extraocular movements intact. Conjunctiva/sclera: Conjunctivae normal. Neck: Vascular: Carotid bruit (left) present. Cardiovascular: Rate and Rhythm: Normal rate and regular rhythm. Pulses: Normal pulses. Heart sounds: Normal heart sounds. Pulmonary: Effort: Pulmonary effort is normal. Breath sounds: Normal breath sounds. No wheezing or rhonchi. Abdominal: General: Bowel sounds are normal. Palpations: Abdomen is soft. Musculoskeletal: Cervical back: Neck supple. Right lower leg: No edema. Left lower leg: No edema. Skin: General: Skin is warm and dry. Capillary Refill: Capillary refill takes 2 to 3 seconds. Neurological: General: No focal deficit present. Mental Status: He is alert. Psychiatric: Mood and Affect: Mood normal. Behavior: Behavior normal. Thought Content: Thought content normal. Judgment: Judgment normal. ASSESSMENT AND PLAN: No follow-ups on file. Problem List Items Addressed This Visit Type 2 diabetes mellitus without complication, with long-term current use of insulin Check blood sugars daily, notify if <70 [...] colleen, farxiga, insulin, metformin A1c: 6.3% 07/11/24 Primary hypertension ([facility]) Please check blood pressure daily and record DASH diet Limit caffeine Take medication as directed Contact office if chest pain, pressure, dizziness, shortness of breath, swelling legs Recommend slow position changes Cont current meds: lisinopril, carvedilol Encounter for subsequent annual wellness visit (AWV) in Medicare patient - Primary Reviewed Ht/Wt/BMI Recommend eye exam yearly Recommend dental exams twice a year Balance work/leisure activities Exercises is recommended most days of the week (appropriate as chronic conditions allow) Follow up yearly and prn Also gave info on advanced directives as well Hyperlipidemia ([facility]) Continue statin Check labs yearly, and prn dose changes Bilateral carotid artery disease, unspecified type ([facility]) Cont asa, statin Periodic monitoring with US A-fib ([facility]) Is on amiodirone as well as anti coagulation NSR today Cont with cardiology Centrilobular emphysema ([facility] [facility]) Noted on imaging, does not take any medications on a regular basis Type 2 diabetes mellitus with other specified complication PAD, CAD, ED Dizziness and giddiness Only notes when getting up from sitting to standing Orthostatics in office: [id number] Sittin/56 Standin/54 I will reach out to cardiology to see if they feel an adjustment is needed in his blood pressure meds: He is also encouraged to drink more water daily Drinks decaf coffee, as well as 2 diet cokes daily Does not like the taste of water Associated Problem(s): Encounter for subsequent annual wellness visit (AWV) in Medicare patient Reviewed Ht/Wt/BMI Recommend eye exam yearly Recommend dental exams twice a year Balance work/leisure activities Exercises is recommended most days of the week (appropriate as chronic conditions allow) Follow up yearly and prn Also gave info on advanced directives as well Associated Problem(s): Hyperlipidemia (CMS/HCC) Continue statin Check labs yearly, and prn dose changes Associated Problem(s): Type 2 diabetes mellitus without complication, with long-term current use of insulin Check blood sugars daily, notify if <70 [...] colleen, farxiga, insulin, metformin A1c: 6.3% 07/11/24 Associated Problem(s): Type 2 diabetes mellitus with other specified complication PAD, CAD, ED Associated Problem(s): Primary hypertension (CMS/HCC) Please check blood pressure daily and record DASH diet Limit caffeine Take medication as directed Contact office if chest pain, pressure, dizziness, shortness of breath, swelling legs Recommend slow position changes Cont current meds: lisinopril, carvedilol Associated Problem(s): Bilateral carotid artery disease, unspecified type (CMS/HCC) Cont asa, statin Periodic monitoring with US Associated Problem(s): A-fib (CMS/HCC) Is on amiodirone as well as anti coagulation NSR today Cont with cardiology Associated Problem(s): Centrilobular emphysema (CMS/HCC) Noted on imaging, does not take any medications on a regular basis Associated Problem(s): CORNELIA (obstructive sleep apnea) You have a diagnosis of obstructive sleep [...] tubing/filters etc: Doctor that manages your CORNELIA: documented in this encounter [facility] 08-15-2024 Instructions Marisol Boyce NP - 08/15/2024 10:30 AM EDT Drink more fluids, will reach out to cardiology for advice on BP documented in this encounter [facility] 07-18-2024 Note Patient Education Urology Benign Prostatic Hyperplasia Benign prostatic hyperplasia (BPH) is an enlarged prostate gland that is caused by the normal aging process. The prostate may get bigger as a man gets older. The condition is not caused by cancer. The prostate is a walnut-sized gland that is involved in the production of semen. It is located in front of the rectum and below the bladder. The bladder stores urine. The urethra carries stored urine out of the body. An enlarged prostate can press on the urethra. This can make it harder to pass urine. The buildup of urine in the bladder can cause infection. Back pressure and infection may progress to bladder damage and kidney (renal) failure. What are the causes? This condition is part of the normal aging process. However, not all men develop problems from this condition. If the prostate enlarges away from the urethra, urine flow will not be blocked. If it enlarges toward the urethra and compresses it, there will be problems passing urine. What increases the risk? This condition is more likely to develop in men older than 50 years. What are the signs or symptoms? Symptoms of this condition include: ??? Getting up often during the night to urinate. ??? Needing to urinate frequently during the day. ??? Difficulty starting urine flow. ??? Decrease in size and strength of your urine stream. ??? Leaking (dribbling) after urinating. ??? Inability to pass urine. This needs immediate treatment. ??? Inability to completely empty your bladder. ??? Pain when you pass urine. This is more common if there is also an infection. ??? Urinary tract infection (UTI). How is this diagnosed? This condition is diagnosed based on your medical history, a physical exam, and your symptoms. Tests will also be done, such as: ??? A post-void bladder scan. This measures any amount of urine that may remain in your bladder after you finish urinating. ??? A digital rectal exam. In a rectal exam, your health care provider checks your prostate by putting a lubricated, gloved finger into your rectum to feel the back of your prostate gland. This exam detects the size of your gland and any abnormal lumps or growths. ??? An exam of your urine (urinalysis). ??? A prostate specific antigen (PSA) screening. This is a blood test used to screen for prostate cancer. ??? An ultrasound. This test uses sound waves [...] severity of your condition. Treatment may include: ??? Observation and yearly exams. This may be the only treatment needed if your condition and symptoms are mild. ??? Medicines to relieve your symptoms, including: ? Medicines to shrink the prostate. ? Medicines to relax the muscle of the prostate. ??? Surgery in severe cases. Surgery may include: ? Prostatectomy. In this procedure, the prostate tissue is removed completely through an open incision or with a laparoscope or robotics. ? Transurethral resection of the prostate (TURP). In this procedure, a tool is inserted through the opening at the tip of the penis (urethra). It is used to cut away tissue of the inner core of the prostate. The pieces are removed through the same opening of the penis. This removes the blockage. ? Transurethral incision (TUIP). In this procedure, small cuts are made in the prostate. This lessens the prostate's pressure on the urethra. ? Transurethral microwave thermotherapy (TUMT). This procedure uses microwaves to create heat. The heat destroys and removes a small amount of prostate tissue. ? Transurethral needle ablation (TUNA). This procedure uses radio frequencies to destroy and remove a small amount of prostate tissue. ? Interstitial laser coagulation (ILC). This procedure uses a laser to destroy and remove a small amount of prostate tissue. ? Transurethral electrovaporization (TUVP). This procedure uses electrodes to destroy and remove a small amount of prostate tissue. ? Prostatic urethral lift. This procedure inserts an implant to push the lobes of the prostate away from the urethra. Follow these instructions at home: ??? Take [id number] and prescription medicines only as told by your health care provider. ??? Monitor your symptoms for any changes. Contact your health care provider with any changes. ??? Avoid drinking large amounts of liquid before going to bed or out in public. ??? Avoid or reduce how much caffeine or alcohol you drink. ??? Give yourself time when you urinate. ??? Keep all follow-up visits. This is important. Contact a health care provider if: ??? You have unexplained back pain. ??? Your symptoms do not get (more content not included)... [facility] 05-15-2024 History of Present illness Narrative Associated Problem(s): Primary insomnia Recommend no napping during the day, can try melatonin up to 10mg at bedtime If not helpful consider trazadone, will call if he needs it 110-250 after he eats 80-100 for fasting sugar Pt has been taking the metformin 500mg 1x daily wants to know if he needs to take more; before he was taking 1000mg 2x daily Current 126 after eating 1 piece of toast. Pt would like to note that he is not active with it being cold. Images from the original note were not included. Kimmy Mcarthur is a 78 y.o. male presents with chief complaint of No chief complaint on file. HPI: CGM reads: 90 day av, GMI 7.5, 55% in range, 31% high, 11% very high 30 day avg: GMI 7.6%, 50% in range, 37% high, 10% very high 14 day avg: GMI 7.5%, 53% in range, 35% high, 10% very high 7 day: avg 192, 42% in range, 41% high, and 16% very high 3 day av, 37% in range, 46% hihg, and 17% very high Is using his CGM daily, benefits from use, helps recognize possible causes to elevated sugars: lack of exercise, when doing cardiac rehab numbers were better Insomnia: 3 weeks, trouble falling and staying asleep, some life stressors, melatonin not really helping. Does fall asleep during the day at times as well. Diabetes He presents for his follow-up diabetic visit. He has type 2 diabetes mellitus. His disease course has been stable. Hypoglycemia symptoms include dizziness. Pertinent negatives for hypoglycemia include no nervousness/anxiousness, seizures or tremors. Associated symptoms include polydipsia and polyuria. Pertinent negatives for diabetes include no polyphagia. There are no hypoglycemic complications. Symptoms are stable. Diabetic complications include heart disease and PVD. Risk factors for coronary artery disease include diabetes mellitus, dyslipidemia, hypertension, male sex and sedentary lifestyle. Current diabetic treatment includes oral agent (dual therapy) and insulin injections. He is compliant with treatment all of the time. An COLLEEN inhibitor/angiotensin II receptor cesilia is being taken. 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 Hypertension This is a chronic problem. The current episode started more than 1 year ago. The problem is unchanged. The problem is controlled. Pertinent negatives include no orthopnea, peripheral edema or shortness of breath. (Dizziness at times, position changes) There are no associated agents to hypertension. Risk factors for coronary artery disease include diabetes mellitus, dyslipidemia, male gender and sedentary lifestyle. Past treatments include beta blockers and COLLEEN inhibitors. The current treatment provides significant improvement. There are no compliance problems. Hypertensive end-organ damage includes CAD/MT, heart failure and PVD. There is no history of kidney disease. SUBJECTIVE: MEDICATIONS: Current Outpatient Medications Medication Instructions amiodarone (PACERONE) 200 mg, Daily apixaban (ELIQUIS) 5 mg, 2 times daily Aspirin Low Dose 81 mg, Daily atorvastatin (LIPITOR) 80 mg, Daily carvedilol (COREG) 3.125 mg, 2 times daily with meals dapagliflozin (Farxiga) 5 MG Take by mouth ezetimibe (ZETIA) 10 mg, Nightly Lantus SoloStar 50 Units, Subcutaneous, Daily, Pt to take up to a total of 50 units daily lisinopril 20 mg, Daily metFORMIN (GLUCOPHAGE) 500 mg, Oral, 2 times daily with meals omeprazole (PRILOSEC) 40 mg, Daily RT OneTouch Verio test strip 1 each, Other, Daily Semglee, yfgn, 100 UNIT/ML pen INJECT UP TO 50 UNITS UNDER THE SKIN EVERY DAY tamsulosin (FLOMAX) 0.4 mg, Daily ALLERGIES: No Known Allergies REVIEW OF SYMPTOMS: Review of Systems Constitutional: Negative for activity change, appetite change and unexpected weight change. HENT: Negative for ear pain, nosebleeds, sneezing, trouble swallowing and voice change. Eyes: Negative for pain, discharge and visual disturbance. Respiratory: Negative for apnea, chest tightness, shortness of breath and wheezing. Cardiovascular: Negative for orthopnea and leg swelling. Gastrointestinal: Negative for abdominal distention, blood in stool, constipation and diarrhea. Genitourinary: Negative for decreased urine volume, difficulty urinating, dysuria and hematuria. Skin: Negative for color change. Neurological: Positive for dizziness. Negative for tremors and seizures. Psychiatric/Behavioral: Positive for sleep disturbance. Negative for agitation, decreased concentration, hallucinations, self-injury and suicidal ideas. The patient is not nervous/anxious. Hematological: Negative for adenopathy. Does not bruise/bleed easily. Endocrine: Positive for polydipsia and polyuria. Negative for cold intolerance, heat intolerance and polyphagia. Allergic/Immunologic: Negative for environmental allergies and food allergies. 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) 06/07/2023 BPH (benign prostatic hyperplasia) 06/07/2023 Cervical spinal stenosis 06/07/2023 Coronary artery disease 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 angina pectoris ([facility]) 03/02/2023 COVID-19 virus detected Depression ([facility]) Erectile dysfunction 06/07/2023 Fatigue Granuloma annulare Hearing loss, bilateral Hyperlipidemia ([facility]) 06/07/2023 WESTLEY (iron deficiency anemia) 04/11/2023 Lumbar spondylosis Lumbosacral pain 04/11/2023 CORNELIA (obstructive sleep apnea) 06/07/2023 PAD (peripheral artery disease) ([facility]) 03/25/2023 Primary hypertension (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) 03/22/2023 Past Surgical History: Procedure Laterality Date CATARACT EXTRACTION, BILATERAL CHOLECYSTECTOMY CORONARY STENT PLACEMENT CT ANGIOGRAM HEART CORONARY 10/04/2023 CT ANGIOGRAM TAVR 10/04/2023 CT ANGIOGRAM NECK 03/08/2021 CT ANGIOGRAM NECK family history includes Cancer in his father; Diabetes in his father; Heart disease in his father. OBJECTIVE: Visit Vitals BP 140/62 (BP Location: Left arm, Patient Position: Sitting, BP Cuff Size: Adult long) Pulse 57 Temp 98.1 F (Temporal) Resp 18 Ht 6' Wt 171 lb 3.2 oz SpO2 98% BMI 23.22 kg/m Smoking Status Former BSA 1.99 m Physical Exam Vitals and nursing note reviewed. Constitutional: General: He is not in acute distress. Appearance: Normal appearance. He is not ill-appearing, toxic-appearing or diaphoretic. HENT: Head: Normocephalic. Right Ear: External ear normal. Left Ear: External ear normal. Nose: Nose normal. Mouth/Throat: Mouth: Mucous membranes are moist. Pharynx: Oropharynx is clear. Eyes: Extraocular Movements: Extraocular movements intact. Conjunctiva/sclera: Conjunctivae normal. Neck: Vascular: Carotid bruit (left) present. Cardiovascular: Rate and Rhythm: Normal rate and regular rhythm. Pulses: Normal pulses. Heart sounds: Normal heart sounds. No murmur heard. Pulmonary: Effort: Pulmonary effort is normal. Breath sounds: Normal breath sounds. No wheezing or rales. Abdominal: General: Bowel sounds are normal. There is no distension. Palpations: Abdomen is soft. There is no mass. Tenderness: There is no abdominal tenderness. Hernia: No hernia is present. Musculoskeletal: Cervical back: Neck supple. Right lower leg: No edema. Left lower leg: No edema. Skin: General: Skin is warm and dry. Capillary Refill: Capillary refill takes 2 to 3 seconds. Comments: Senile purpura noted Neurological: General: No focal deficit present. Mental Status: He is alert. Psychiatric: Mood and Affect: Mood normal. Behavior: Behavior normal. Thought Content: Thought content normal. Judgment: Judgment normal. ASSESSMENT AND PLAN: Follow up in about 3 months (around 08/12/2024) for Recheck. Problem List Items Addressed This Visit Coronary artery disease 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 angina pectoris (CMS/HCC) - Primary Follows with cardiology Current meds: asa, statin, b cesilia, Relevant Orders Comprehensive metabolic panel Type 2 diabetes mellitus without complication, with long-term current use of insulin ([facility]) Check blood sugars daily, notify if <70 [...] up dose of metformin to 500mg BID Relevant Medications metFORMIN (Glucophage) 500 MG tablet Other Relevant Orders Urinalysis with reflex microscopic (clean catch) Microalbumin / creatinine, urine ratio Hemoglobin A1c PAD (peripheral artery disease) ([facility]) Continue asa and statin Primary hypertension ([facility]) Please check blood pressure daily and record DASH diet Limit caffeine Take medication as directed Contact office if chest pain, pressure, dizziness, shortness of breath, swelling legs Recommend slow position changes Cont current meds: lisinopril, carvedilol Relevant Orders Comprehensive metabolic panel Urinalysis with reflex microscopic (clean catch) Microalbumin / creatinine, urine ratio WESTLEY (iron deficiency anemia) Check labs in 06/19 Relevant Orders CBC and differential Iron level Hyperlipidemia ([facility]) Continue statin Check labs yearly, and prn dose changes Relevant Orders Comprehensive metabolic panel Lipid panel Erectile dysfunction A-fib ([facility]) Is on amiodirone as well as anti coagulation NSR today Cont with cardiology Relevant Orders CBC and differential Centrilobular emphysema ([facility]) Noted on imaging, does not take any medications on a regular basis Type 2 diabetes mellitus with other specified complication ([facility]) PAD, CAD, ED Relevant Orders Comprehensive metabolic panel Type 2 diabetes mellitus 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 ([facility]) Primary insomnia Recommend no napping during the day, can try melatonin up to 10mg at bedtime If not helpful consider trazadone, will call if he needs it Associated Problem(s): Hyperlipidemia ([facility]) Continue statin Check labs yearly, and prn dose changes Associated Problem(s): WESTLEY (iron deficiency anemia) Check labs in 06/19 Associated Problem(s): Type 2 diabetes mellitus without complication, with long-term current use of insulin ([facility]) Check blood sugars daily, notify if <70 [...] up dose of metformin to 500mg BID Associated Problem(s): Type 2 diabetes mellitus with other specified complication ([facility]) PAD, CAD, ED Associated Problem(s): Primary hypertension ([facility]) Please check blood pressure daily and record DASH diet Limit caffeine Take medication as directed Contact office if chest pain, pressure, dizziness, shortness of breath, swelling legs Recommend slow position changes Cont current meds: lisinopril, carvedilol Associated Problem(s): PAD (peripheral artery disease) ([facility]) Continue asa and statin Associated Problem(s): Coronary artery disease 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 angina pectoris ([facility]) Follows with cardiology Current meds: asa, statin, b cesilia, Associated Problem(s): A-fib ([facility]) Is on amiodirone as well as anti coagulation NSR today Cont with cardiology Associated Problem(s): Centrilobular emphysema ([facility]) Noted on imaging, does not take any medications on a regular basis documented in this encounter [facility] 05-15-2024 Instructions Marisol Boyce NP - 05/15/2024 9:20 AM EST Melatonin: you can go up to about 10mg at night, if that does not help then call me and we can add trazodone for sleep. Avoid napping during the day Bloody nose: humidification, and can try nasal saline nasal spray Diabetes: eye exam yearly, increase metformin to 500mg TWICE a day Labs due AFTER 06/14/24 documented in this encounter [facility] 04-18-2024 Miscellaneous Notes ----- Message from Dr. Sabino Mauricio, sent at 04/16/2024 10:07 AM EST ----- Please let patient know that he has Barretts esophagus and I recommend handout on Barretts esophagus and let him know that this is increased risk of cancer 1-2% and I recommend surveillance endoscopy in 5 years. He also had a tubular adenoma in the colon which is precancerous and I recommend colonoscopy in 5 years if he so wishes again. I am also going to send in a prescription for omeprazole 40 mg daily for 6-8 weeks. If he needs it after that he may get it from his PCP. ThanksDr. Mcgarry documented in this encounter [facility] 04-18-2024 Telephone encounter Note ----- Message from Dr. Sabino Mauricio DO sent at 04/16/2024 10:07 AM EST ----- Please let patient know that he has Barretts esophagus and I recommend handout on Barretts esophagus and let him know that this is increased risk of cancer 1-2% and I recommend surveillance endoscopy in 5 years. He also had a tubular adenoma in the colon which is precancerous and I recommend colonoscopy in 5 years if he so wishes again. I am also going to send in a prescription for omeprazole 40 mg daily for 6-8 weeks. If he needs it after that he may get it from his PCP. ThanksDr. Mcgarry [facility] 04-04-2024 History of Present illness Narrative Images from the original note were not included. Chief Complaint: EGD/Colonoscopy History of Present Illness Kimmy Mcarthur is a 78 y.o. male who presents to the office for surveillance EGD/colonoscopy. His last EGD was in 2019 significant for riley's esophagus. He denies heartburn, nausea and vomiting. His last colonoscopy was in 2018 significant for tubular adenoma. He denies diarrhea, constipation, abdominal pain, rectal bleeding, unexplained weight loss. There is no family history of colon cancer. He was hospitalized in September at [facility] for NSTEMI and a-fib. He is on aspirin and Eliquis daily. He denies chest pain and shortness of breath. 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 Review of Systems Constitutional: Negative for fever and unexpected weight change. HENT: Negative for trouble swallowing. Respiratory: Negative for shortness of breath. Cardiovascular: Negative for chest pain. Gastrointestinal: Negative for nausea, vomiting, abdominal pain, diarrhea, constipation, blood in stool and black tarry stool. Genitourinary: Negative for dysuria and difficulty urinating. Musculoskeletal: Negative for gait problem. Skin: Negative for rash and wound. Neurological: Negative for dizziness, weakness and light-headedness. Hematological: Does not bruise/bleed easily. Psychiatric/Behavioral: Negative for confusion. Past Medical History: Diagnosis Date Anemia Bursitis 2019 right elbow Coronary artery disease COVID-19 11/2021 Diabetes mellitus type 2, controlled ([facility]) Dizziness HL (hearing loss) hearing aid both ears Hyperlipidemia Hypertension Injury of back Low back pain Myocardial infarction ([facility]) 2004 Pancreatitis 2017 Peripheral arterial occlusive disease ([facility]) Visual impairment glasses Wears dentures Past Surgical History: Procedure Laterality Date ARTHROSCOPY SHOULDER WITH SUBACROMIAL DECOMPRESSION AND DEBRIDEMENT TYPE 1 SLAP LESION Left 01/11/2017 Performed by Jr Eliezer Gifford DO at [facility] CARDIAC CATHETERIZATION 5 stents, most recent placed 12/2004 CATARACT EXTRACTION CHOLECYSTECTOMY COLONOSCOPY N/A 10/26/2018 Performed by Sabino Mauricio DO at [facility] EGD N/A 05/03/2019 Performed by Sabino Mauricio DO at [facility] EGD, DILATATION N/A 05/03/2019 Performed by Sabino Mauricio DO at [facility] INJECTION BLOCK NERVE MEDIAL BRANCH: bilat T 10/02/9 Bilateral 03/05/2022 Performed by Gabriel Hanson MD at [facility] INJECTION BLOCK NERVE MEDIAL BRANCH: bilat T 7/8 8/9 Bilateral 01/29/2022 Performed by Gabriel Hanson MD at [facility] INJECTION BLOCK NERVE MEDIAL BRANCH: right L 3/4 4/5 Right 09/05/2020 Performed by Gabriel Hanson MD at [facility] INJECTION BLOCK NERVE MEDIAL BRANCH: right L34 45 Right 10/10/2020 Performed by Gabriel Hanson MD at [facility] LARGE JOINT BURSA: left hip Left 04/13/2019 Performed by Gabriel Hanson MD at [facility] MEDIAL BRANCH NERVE BLOCK: left [id number] Left 10/26/2019 Performed by Gabriel Hanson MD at [facility] SI JOINT-Left Left 10/20/2018 Performed by Gabriel Hanson MD at [facility] INJECTION STEROID EPI 1 WITH SEDATION: left [id number] Left 08/03/2019 Performed by Gabriel Hanson MD at [facility] INJECTION STEROID EPI 1 WITH SEDATION: left [id number] Left 09/03/2019 Performed by Gabriel Hanson MD at [facility] ADELE PROCEDURE SHOULDER Left 01/11/2017 Performed by Jr Eliezer Gifford DO at [facility] RADIOFREQUENCY ABLATION SPINAL: Left T 7/8 8/9 Left 04/23/2022 Performed by Gabriel Hanson MD at [facility] RADIOFREQUENCY ABLATION SPINAL: Right T 7/8 8/9 Right 04/09/2022 Performed by Gabriel Hanson MD at [facility] No Known Allergies Current Outpatient Medications: albuterol (PROVENTIL HFA;VENTOLIN HFA) 90 mcg/actuation inhaler, INHALE 2 PUFFS BY MOUTH EVERY 6 HOURS NEEDED FOR WHEEZING, Disp: 54 g, Rfl: 1 amiodarone (PACERONE) 200 mg tablet, Take 1 tablet (200 mg total) by mouth in the morning., Disp: , Rfl: apixaban (ELIQUIS) 5 mg tablet, Take by mouth 2 (two) times a day., Disp: , Rfl: aspirin 81 mg, Take 1 tablet (81 mg total) by mouth in the morning., Disp: , Rfl: atorvastatin (LIPITOR) 80 mg tablet, atorvastatin 80 mg tablet, Disp: , Rfl: carvediloL (COREG) 3.125 mg tablet, Take 1 tablet (3.125 mg total) by mouth in the morning and 1 tablet (3.125 mg total) in the evening. Take with meals., Disp: , Rfl: dapagliflozin propanediol (FARXIGA) 10 mg tablet, Take 1 tablet (10 mg total) by mouth in the morning., Disp: , Rfl: ezetimibe (ZETIA) 10 mg tablet, Take 1 tablet (10 mg total) by mouth in the morning., Disp: , Rfl: insulin glargine,hum.rec.anlog (BASAGLAR KWIKPEN U-100 INSULIN) 100 unit/mL (3 mL) insulin pen, Inject 35 Units under the skin nightly., Disp: , Rfl: lisinopriL (PRINIVIL,ZESTRIL) 5 mg tablet, Take 1 tablet (5 mg total) by mouth in the morning., Disp: , Rfl: metFORMIN (GLUCOPHAGE) 500 mg tablet, Take 1 tablet (500 mg total) by mouth daily with breakfast., Disp: , Rfl: senna (SENOKOT) 8.6 mg tablet, Take 1 tablet (8.6 mg total) by mouth in the morning., Disp: , Rfl: tamsulosin (FLOMAX) 0.4 mg capsule, tamsulosin 0.4 mg capsule TAKE 1 CAPSULE BY MOUTH DAILY, Disp: , Rfl: insulin detemir (LEVEMIR) 100 unit/mL injection, Inject under the skin nightly. (Patient not taking: Reported on 04/04/2024), Disp: , Rfl: Social History Socioeconomic History Marital status: Spouse name: Not on file Number of children: Not on file Years of education: Not on file Highest education level: Not on file Occupational History Not on file Tobacco Use Smoking status: Every Day Current packs/day: 0.00 Types: Cigarettes Last attempt to quit: 2020 Years since quittin.0 Smokeless tobacco: Never Tobacco comments: Pack every 3 weeks as of 04/04/24 Vaping Use Vaping status: Never Used Substance and Sexual Activity Alcohol use: Not Currently Comment: rare Drug use: No Sexual activity: Defer Other Topics Concern Not on file Social History Narrative Not on file Social Drivers of Health Financial Resource Strain: Low Risk (11/10/2023) Received from [facility] Overall Financial Resource Strain (CARDIA) Difficulty of Paying Living Expenses: Not hard at all Food Insecurity: No Food Insecurity (04/04/2024) Hunger Screening Food Insecurity - Worry: Never True Food Insecurity - Inability: Never True Transportation Needs: No Transportation Needs (11/10/2023) Received from [facility] Transportation In the past 12 months, has lack of transportation kept you from medical appointments or from getting medications?: No Lack of Transportation (Non-Medical): Not on file Physical Activity: Inactive (06/07/2023) Received from [facility] Exercise Vital Sign Days of Exercise per Week: 0 days Minutes of Exercise per Session: 0 min Stress: Stress Concern Present (06/07/2023) Received from [facility] [place] [facility] Occupational Health - Occupational Stress Questionnaire Feeling of Stress : To some extent Social Connections: Moderately Integrated (06/07/2023) Received from [facility] Social Connection and Isolation Panel [NHANES] Frequency of Communication with Friends and Family: More than three times a week Frequency of Social Gatherings with Friends and Family: Once a week Attends [employer] Services: More than 4 times per year Active Member of Clubs or Organizations: No Attends Club or Organization Meetings: Never Marital Status: Interpersonal Safety: Not At Risk (11/10/2023) Received from [facility] Humiliation, Afraid, Rape, and Kick questionnaire Fear of Current or Ex-Partner: No Emotionally Abused: No Physically Abused: No Sexually Abused: No Housing Instability: Low Risk (11/10/2023) Received from [facility] Housing Stability Vital Sign Unable to Pay for Housing in the Last Year: Not on file Number of Places Lived in the Last Year: Not on file In the last 12 months, was there a time when you did not have a steady place to sleep or slept in a prison (including now)?: No Family History Problem Relation Age of Onset No Known Problems Mother Diabetes Father Arthritis Father Lung cancer Father Diabetes Maternal Grandfather Objective Physical Exam Constitutional: General: He is not in acute distress. Appearance: Normal appearance. He is not ill-appearing. HENT: Head: Normocephalic and atraumatic. Mouth/Throat: Mouth: Mucous membranes are moist. Eyes: Pupils: Pupils are equal, round, and reactive to light. Cardiovascular: Rate and Rhythm: Normal rate and regular rhythm. Pulmonary: Effort: Pulmonary effort is normal. No respiratory distress. Abdominal: General: There is no distension. Palpations: Abdomen is soft. Tenderness: There is no abdominal tenderness. There is no guarding. Musculoskeletal: General: Normal range of motion. Skin: General: Skin is warm and dry. Neurological: Mental Status: He is alert and oriented to person, place, and time. Mental status is at baseline. Vital Signs: Blood pressure 131/46, pulse 64, height 182.9 cm (6'), weight 79.6 kg (175 lb 6.4 oz). Respiratory Source: No data recorded Admission Weight: Weight: 79.6 kg (175 lb 6.4 oz) Labs Lab Results Component Value Date WBC 7.0 05/04/2023 HGB 13.5 05/04/2023 HCT 39.3 05/04/2023 MCV 89 05/04/2023 PLT 169 05/04/2023 Lab Results Component Value Date GLU 187 (H) 11/29/2023 CALCIUM 9.2 11/29/2023 K 4.2 11/29/2023 CO2 27 11/29/2023 CL 104 11/29/2023 BUN 22 11/29/2023 CREATININE 1.01 11/29/2023 No results found for: AMYLASE No results found for: LIPASE Lab Results Component Value Date ALT 39 12/07/2023 AST 18 12/07/2023 ALKPHOS 89 05/04/2023 Lab Results Component Value Date INR 1.0 01/04/2017 PROTIME 11.5 01/04/2017 Assessment History of Barretts esophagus History of colon polyps Plan EGD and colonoscopy with possible biopsy and/or polypectomy. Risks, benefits, and alternatives discussed with patient. Educated on bowel evacuation preparation. Patient verbalizes understanding and wishes to proceed. Hold aspirin 7 days prior and Eliquis 2 days prior, office will check with Cardiology. Evaluation included: Preparing to see the patient (e.g., review of tests) Obtaining and/or reviewing separately obtained history Performing a medically appropriate examination and/or evaluation Counseling and educating the patient/family/caregiver Referring and communicating with other health healthcare interpreter Encounter for colonoscopy due to history of colonic polyp [Z12.11, Z86.0100] SATURNINO BHANDARI [facility] [place] This note was created with the assistance of a speech recognition program. While intending to generate a timely document that accurately reflects the content of the visit, no guarantee can be provided that every grammatical or spelling mistake has been or will be identified or corrected. Thank you for your understanding. SATURNINO Bhandari 04/04/24 1156 documented in this encounter [facility] 03-14-2024 Note [facility] Cardiology Clinic Note Chief Complaint: Patient here for 3 mo follow up CAD, PAF, HFpEF, PAD, and valve disorder. He had stress test back in Nov 2023 after last apt. Thinks he's almost done with rehab. Does still get thigh burning during rehab. He denies chest pain, SOB, and palpitations. Gets lightheaded once in awhile . Denies syncope and bleeding on Eliquis. HPI: Kimmy Mcarthur is a 78 y.o. male With a history of coronary artery disease He is doing well; he is asymptomatic He states that he is somewhat fatigued and his is concerned that he sleeps a lot Pertinently, he denies exertional chest pain, shortness of breath, palpitations, lightheadedness or dizziness UPDATE 03/14/2024 Cardiology ROS:Review of Systems Hematologic/Lymphatic: Bruises/bleeds easily. Neurological: Positive for dizziness and light-headedness. All other systems reviewed and are negative. UPDATE 10/13/2023 Hospital Medicine Discharge Summary Final Discharge Diagnosis: 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 pectoris ([facility]) Admission Diagnosis: A-fib ([facility]) [I48.91] Hospital course: 78 yo M with history of multivessel CAD s/p RCA stent 2022, HFpEF, MVR, HTN, PAD, IDDM2 who presented to outside ED with chest pressure and was found to be in Afib with RVR with rates up to 150s. Troponin was elevated at 100. He was given Cardizem, which converted him to sinus, and he was transferred to [facility]. He was placed on ASA/Plavix as well [...] Center 10/13/2023 11:00 AM Natasha Campo MD [facility] [place] [facility] 11/07/2023 7:30 AM [facility] MR 2 [facility] ORTH MR MPORTHO 11/08/2023 2:00 PM Peter Christensen MD [facility] Your medication list START taking [...] Your Medications These medications were sent to [facility] [address] [address] Phone: [phone] (more content not included)... [facility] 03-05-2024 History of Present illness Narrative Images from the original note were not included. Chief Complaint: EGD/Colonoscopy History of Present Illness Kimmy Mcarthur is a 78 y.o. male who presents to the office for surveillance EGD/colonoscopy. His last EGD was in 2019 significant for riley's esophagus. He denies heartburn, nausea and vomiting. His last colonoscopy was in 2019 significant for tubular adenoma. He denies diarrhea, constipation, abdominal pain, rectal bleeding, unexplained weight loss. There is no family history of colon cancer. He was hospitalized in September at [facility] for NSTEMI and a-fib. He is on aspirin and Eliquis daily. He denies chest pain and shortness of breath. 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 Review of Systems Constitutional: Negative for fever and unexpected weight change. HENT: Negative for trouble swallowing. Respiratory: Negative for shortness of breath. Cardiovascular: Negative for chest pain. Gastrointestinal: Negative for nausea, vomiting, abdominal pain, diarrhea, constipation, blood in stool and black tarry stool. Genitourinary: Negative for dysuria and difficulty urinating. Musculoskeletal: Negative for gait problem. Skin: Negative for rash and wound. Neurological: Negative for dizziness, weakness and light-headedness. Hematological: Does not bruise/bleed easily. Psychiatric/Behavioral: Negative for confusion. Past Medical History: Diagnosis Date Anemia Bursitis 2019 right elbow Coronary artery disease COVID-19 11/2021 Diabetes mellitus type 2, controlled ([facility]) Dizziness HL (hearing loss) hearing aid left ear Hyperlipidemia Hypertension Injury of back Low back pain Myocardial infarction ([facility]) 2004 Pancreatitis 2017 Peripheral arterial occlusive disease ([facility]) Visual impairment glasses Wears dentures Past Surgical History: Procedure Laterality Date ARTHROSCOPY SHOULDER WITH SUBACROMIAL DECOMPRESSION AND DEBRIDEMENT TYPE 1 SLAP LESION Left 01/11/2017 Performed by Jr Eliezer Gifford DO at [facility] CARDIAC CATHETERIZATION 5 stents, most recent placed 12/2004 CATARACT EXTRACTION CHOLECYSTECTOMY COLONOSCOPY N/A 10/26/2018 Performed by Sabino Mauricio DO at [facility] EGD N/A 05/03/2019 Performed by Sabino Mauricio DO at [facility] EGD, DILATATION N/A 05/03/2019 Performed by Sabino Mauricio DO at [facility] INJECTION BLOCK NERVE MEDIAL BRANCH: bilat T 10/02 8/9 Bilateral 03/05/2022 Performed by Gabriel Hanson MD at [facility] INJECTION BLOCK NERVE MEDIAL BRANCH: bilat T 78 8/9 Bilateral 01/29/2022 Performed by Gabriel Hanson MD at [facility] INJECTION BLOCK NERVE MEDIAL BRANCH: right L 3/4 4/5 Right 09/05/2020 Performed by Gabriel Hanson MD at [facility] INJECTION BLOCK NERVE MEDIAL BRANCH: right L34 45 Right 10/10/2020 Performed by Gabriel Hanson MD at [facility] LARGE JOINT BURSA: left hip Left 04/13/2019 Performed by Gabriel Hanson MD at [facility] MEDIAL BRANCH NERVE BLOCK: left [id number] Left 10/26/2019 Performed by Gabriel Hanson MD at [facility] INJECTION SI JOINT-Left Left 10/20/2018 Performed by Gabriel Hanson MD at [facility] INJECTION STEROID EPI 1 WITH SEDATION: left [id number] Left 08/03/2019 Performed by Gabriel Hanson MD at [facility] INJECTION STEROID EPI 1 WITH SEDATION: left [id number] Left 09/03/2019 Performed by Gabriel Hanson MD at [facility] ADELE PROCEDURE SHOULDER Left 01/11/2017 Performed by Jr Eliezer Gifford DO at [facility] RADIOFREQUENCY ABLATION SPINAL: Left T 7/8 8/9 Left 04/23/2022 Performed by Gabriel Hanson MD at [facility] RADIOFREQUENCY ABLATION SPINAL: Right T 7/8 8/9 Right 04/09/2022 Performed by Gabriel Hanson MD at [facility] No Known Allergies Current Outpatient Medications: albuterol (PROVENTIL HFA;VENTOLIN HFA) 90 mcg/actuation inhaler, INHALE 2 PUFFS BY MOUTH EVERY 6 HOURS NEEDED FOR WHEEZING, Disp: 54 g, Rfl: 1 amiodarone (PACERONE) 200 mg tablet, Take 1 tablet (200 mg total) by mouth in the morning., Disp: , Rfl: apixaban (ELIQUIS) 5 mg tablet, Take by mouth 2 (two) times a day., Disp: , Rfl: aspirin 81 mg, Take 1 tablet (81 mg total) by mouth in the morning., Disp: , Rfl: atorvastatin (LIPITOR) 80 mg tablet, atorvastatin 80 mg tablet, Disp: , Rfl: carvediloL (COREG) 3.125 mg tablet, Take 1 tablet (3.125 mg total) by mouth in the morning and 1 tablet (3.125 mg total) in the evening. Take with meals., Disp: , Rfl: dapagliflozin propanediol (FARXIGA) 10 mg tablet, Take 1 tablet (10 mg total) by mouth in the morning., Disp: , Rfl: ezetimibe (ZETIA) 10 mg tablet, Take 1 tablet (10 mg total) by mouth in the morning., Disp: , Rfl: insulin detemir (LEVEMIR) 100 unit/mL injection, Inject under the skin nightly. (Patient taking differently: Inject 0.35 mL (35 Units total) under the skin nightly.), Disp: , Rfl: lisinopriL (PRINIVIL,ZESTRIL) 5 mg tablet, Take 1 tablet (5 mg total) by mouth in the morning., Disp: , Rfl: metFORMIN (GLUCOPHAGE) 1000 mg tablet, Take 1 tablet (1,000 mg total) by mouth daily with breakfast., Disp: , Rfl: senna (SENOKOT) 8.6 mg tablet, Take 1 tablet (8.6 mg total) by mouth in the morning., Disp: , Rfl: tamsulosin (FLOMAX) 0.4 mg capsule, tamsulosin 0.4 mg capsule TAKE 1 CAPSULE BY MOUTH DAILY, Disp: , Rfl: peg 3350-sod sulf,ttmc-bqz-ybt 178.7-7.3-0.5 gram recon soln, Take 1 kit by mouth once daily for 1 dose. Please see instructional sheet given by physicians office., Disp: 1 each, Rfl: 0 Social History Socioeconomic History Marital status: Spouse name: Not on file Number of children: Not on file Years of education: Not on file Highest education level: Not on file Occupational History Not on file Tobacco Use Smoking status: Former Current packs/day: 0.00 Types: Cigarettes Quit date: 2020 Years since quittin.9 Smokeless tobacco: Never Vaping Use Vaping status: Never Used Substance and Sexual Activity Alcohol use: Yes Comment: rare Drug use: No Sexual activity: Defer Other Topics Concern Not on file Social History Narrative Not on file Social Drivers of Health Financial Resource Strain: Low Risk (11/10/2023) Received from [facility] Overall Financial Resource Strain (CARDIA) Difficulty of Paying Living Expenses: Not hard at all Food Insecurity: No Food Insecurity (11/10/2023) Received from [facility] Hunger Vital Sign Within the past 12 months, you worried that your food would run out before you got the money to buy more.: Never true Ran Out of Food in the Last Year: Not on file Transportation Needs: No Transportation Needs (11/10/2023) Received from [facility] Transportation In the past 12 months, has lack of transportation kept you from medical appointments or from getting medications?: No Lack of Transportation (Non-Medical): Not on file Physical Activity: Inactive (06/07/2023) Received from [facility] Exercise Vital Sign Days of Exercise per Week: 0 days Minutes of Exercise per Session: 0 min Stress: Stress Concern Present (06/07/2023) Received from [facility] [place] of Occupational Health - Occupational Stress Questionnaire Feeling of Stress : To some extent Social Connections: Moderately Integrated (06/07/2023) Received from [facility] Social Connection and Isolation Panel [NHANES] Frequency of Communication with Friends and Family: More than three times a week Frequency of Social Gatherings with Friends and Family: Once a week Attends [employer] Services: More than 4 times per year Active Member of Clubs or Organizations: No Attends Club or Organization Meetings: Never Marital Status: Interpersonal Safety: Not At Risk (11/10/2023) Received from [facility] Humiliation, Afraid, Rape, and Kick questionnaire Fear of Current or Ex-Partner: No Emotionally Abused: No Physically Abused: No Sexually Abused: No Housing Instability: Low Risk (11/10/2023) Received from [facility] Housing Stability Vital Sign Unable to Pay for Housing in the Last Year: Not on file Number of Places Lived in the Last Year: Not on file In the last 12 months, was there a time when you did not have a steady place to sleep or slept in a prison (including now)?: No Family History Problem Relation Age of Onset Diabetes Father Arthritis Father Lung cancer Father Diabetes Maternal Grandfather Objective Physical Exam Constitutional: General: He is not in acute distress. Appearance: Normal appearance. He is not ill-appearing. HENT: Head: Normocephalic and atraumatic. Mouth/Throat: Mouth: Mucous membranes are moist. Eyes: Pupils: Pupils are equal, round, and reactive to light. Cardiovascular: Rate and Rhythm: Normal rate. Pulmonary: Effort: Pulmonary effort is normal. No respiratory distress. Abdominal: General: There is no distension. Musculoskeletal: General: Normal range of motion. Skin: General: Skin is warm and dry. Neurological: Mental Status: He is alert and oriented to person, place, and time. Mental status is at baseline. Vital Signs: Blood pressure 135/52, height 182.9 cm (6'), weight 78.5 kg (173 lb). Respiratory Source: No data recorded Admission Weight: Weight: 78.5 kg (173 lb) Labs Lab Results Component Value Date WBC 7.0 05/04/2023 HGB 13.5 05/04/2023 HCT 39.3 05/04/2023 MCV 89 05/04/2023 PLT 169 05/04/2023 Lab Results Component Value Date GLU 187 (H) 11/29/2023 CALCIUM 9.2 11/29/2023 K 4.2 11/29/2023 CO2 27 11/29/2023 CL 104 11/29/2023 BUN 22 11/29/2023 CREATININE 1.01 11/29/2023 No results found for: AMYLASE No results found for: LIPASE Lab Results Component Value Date ALT 39 12/07/2023 AST 18 12/07/2023 ALKPHOS 89 05/04/2023 Lab Results Component Value Date INR 1.0 01/04/2017 PROTIME 11.5 01/04/2017 Assessment History of Barretts esophagus History of colon polyps Plan EGD and colonoscopy with possible biopsy and/or polypectomy. Risks, benefits, and alternatives discussed with patient. Educated on bowel evacuation preparation. Patient verbalizes understanding and wishes to proceed. Hold aspirin 7 days prior and Eliquis 2 days prior, office will check with Cardiology. Evaluation included: Preparing to see the patient (e.g., review of tests) Obtaining and/or reviewing separately obtained history Performing a medically appropriate examination and/or evaluation Counseling and educating the patient/family/caregiver Referring and communicating with other health healthcare interpreter Encounter for colonoscopy due to history of colonic polyp [Z12.11, Z86.0100] SATURNINO BHANDARI [facility] General Surgery [place] This note was created with the assistance of a speech recognition program. While intending to generate a timely document that accurately reflects the content of the visit, no guarantee can be provided that every grammatical or spelling mistake has been or will be identified or corrected. Thank you for your understanding. SATURNINO Bhandari 03/05/24 1215 documented in this encounter [facility] 02-15-2024 History of Present illness Narrative Associated Problem(s): Lumbosacral spondylosis without myelopathy Will call his pain mgmt to schedule Associated Problem(s): Tubulovillous adenoma of colon Refer back to [facility] Pt is in cardiac therapy three times a week- he is having some soreness Pt states his insurance is not going to cover the basaglar anymore He only has one pen left Pt is still on the farxiga He still has dizzy spells once in a while That lasts 5-10sec average Pt does not remember why the hospital took him off the metformin he might have had loose stools at the hospital however his sugars have been good going up after he eats Currently at 115 9pm-250 However usually 150-180 Fasting sugars are 110-120 Dizziness is only when he stands up and not during sugar spikes Does pt need referral to pain management? It has been 3-4 years and was getting injections that did not help The pain originally started in his hips however the pain in more towards the middle/upper back Cardiac therapy was this morning-leg/thigh pain only then Pt is not taking otc meds he relaxes or naps then pain in his back goes away Pt is not wanting to take another pill and he is unsure if any otc meds would interact what he already takes Images from the original note were not included. Kimmy Mcarthur is a 78 y.o. male presents with chief complaint of No chief complaint on file. HPI: Blood sugars: 90 day average 189, GMI 7.8%, time in range 47%, high 31% and very high 20% 30 day av, GNI 7.7%, time in range: 48%, high 31%, and very high 19% 14 day av, GMI 7.5%, time in range 53%, high 32%, and very high 13% 7 day av, time in range 61%, high 33%, and very high 4% Started cardiac rehab: about a month ago Hypertension This is a chronic problem. The current episode started more than 1 year ago. The problem is unchanged. The problem is controlled. Pertinent negatives include no anxiety, blurred vision, chest pain, neck pain, peripheral edema or shortness of breath. There are no associated agents to hypertension. Risk factors for coronary artery disease include diabetes mellitus, dyslipidemia and male gender. Past treatments include beta blockers and COLLEEN inhibitors. The current treatment provides significant improvement. There are no compliance problems. Hypertensive end-organ damage includes CAD/MT, heart failure and PVD. Diabetes He has type 2 diabetes mellitus. His disease course has been stable. Hypoglycemia symptoms include dizziness. Pertinent negatives for hypoglycemia include no nervousness/anxiousness, seizures or tremors. Associated symptoms include fatigue. Pertinent negatives for diabetes include no blurred vision, no chest pain, no foot paresthesias, no polydipsia, no polyphagia, no polyuria and no weakness. There are no hypoglycemic complications. Symptoms are stable. Diabetic complications include heart disease and PVD. Risk factors for coronary artery disease include diabetes mellitus, dyslipidemia, hypertension and male sex. Current diabetic treatment includes oral agent (dual therapy) (insulin). An COLLEEN inhibitor/angiotensin II receptor cesilia is being taken. 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 SUBJECTIVE: MEDICATIONS: Current Outpatient Medications Medication Instructions amiodarone (PACERONE) 200 mg, Daily Aspirin Low Dose 81 mg, Oral, Daily atorvastatin (LIPITOR) 80 mg, Oral, Daily carvedilol (COREG) 3.125 mg, Oral, 2 times daily with meals dapagliflozin (Farxiga) 5 MG Oral ezetimibe (ZETIA) 10 mg, Nightly insulin glargine (Basaglar KwikPen) 100 UNIT/ML pen Up to 50 units daily lisinopril 20 mg, Oral, Daily RT metFORMIN (GLUCOPHAGE) 500 mg, Oral, Daily with breakfast OneTouch Verio test strip 1 each, Other, Daily tamsulosin (FLOMAX) 0.4 mg, Oral, Daily ALLERGIES: No Known Allergies REVIEW OF SYMPTOMS: Review of Systems Constitutional: Positive for fatigue. Negative for activity change, appetite change and unexpected weight change. HENT: Negative for ear pain, nosebleeds, sneezing, trouble swallowing and voice change. Eyes: Negative for blurred vision, pain, discharge and visual disturbance. Respiratory: Negative for apnea, chest tightness, shortness of breath and wheezing. Cardiovascular: Negative for chest pain and leg swelling. Gastrointestinal: Negative for abdominal distention, blood in stool, constipation and diarrhea. Genitourinary: Negative for decreased urine volume, difficulty urinating, dysuria and hematuria. Musculoskeletal: Positive for back pain. Negative for neck pain. Skin: Negative for color change. Neurological: Positive for dizziness. Negative for tremors, seizures and weakness. Psychiatric/Behavioral: Negative for agitation, decreased concentration, hallucinations, self-injury and suicidal ideas. The patient is not nervous/anxious. Hematological: Negative for adenopathy. Does not bruise/bleed easily. Endocrine: Negative for cold intolerance, heat intolerance, polydipsia, polyphagia and polyuria. Allergic/Immunologic: Negative for environmental allergies and food allergies. 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) 06/07/2023 BPH (benign prostatic hyperplasia) 06/07/2023 Cervical spinal stenosis 06/07/2023 Coronary artery disease 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 angina pectoris ([facility]) 03/02/2023 COVID-19 virus detected Depression [place] Erectile dysfunction 06/07/2023 Fatigue Granuloma annulare Hearing loss, bilateral Hyperlipidemia ([facility]) 06/07/2023 WESTLEY (iron deficiency anemia) 04/11/2023 Lumbar spondylosis Lumbosacral pain 04/11/2023 CORNELIA (obstructive sleep apnea) 06/07/2023 PAD (peripheral artery disease) ([facility]) 03/25/2023 Primary hypertension (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) 03/22/2023 Past Surgical History: Procedure Laterality Date CATARACT EXTRACTION, BILATERAL CHOLECYSTECTOMY CORONARY STENT PLACEMENT CT ANGIOGRAM HEART CORONARY 10/04/2023 CT ANGIOGRAM TAVR 10/04/2023 CT ANGIOGRAM NECK 03/08/2021 CT ANGIOGRAM NECK family history includes Cancer in his father; Diabetes in his father; Heart disease in his father. OBJECTIVE: Visit Vitals BP 112/64 (BP Location: Left arm, Patient Position: Sitting, BP Cuff Size: Adult long) Pulse 51 Temp 98.5 F (Temporal) Resp 19 Ht 6' Wt 173 lb 12.8 oz SpO2 100% BMI 23.57 kg/m Smoking Status Former BSA 2 m Physical Exam Vitals and nursing note reviewed. Constitutional: Appearance: Normal appearance. HENT: Head: Normocephalic. Right Ear: External ear normal. Left Ear: External ear normal. Nose: Nose normal. Mouth/Throat: Mouth: Mucous membranes are moist. Pharynx: Oropharynx is clear. Eyes: Extraocular Movements: Extraocular movements intact. Conjunctiva/sclera: Conjunctivae normal. Neck: Vascular: Carotid bruit present. Cardiovascular: Rate and Rhythm: Normal rate and regular rhythm. Pulses: Normal pulses. Heart sounds: Normal heart sounds. Pulmonary: Effort: Pulmonary effort is normal. No respiratory distress. Breath sounds: Normal breath sounds. No wheezing. Abdominal: General: Bowel sounds are normal. Palpations: Abdomen is soft. Musculoskeletal: General: No tenderness. Cervical back: Neck supple. Right lower leg: No edema. Left lower leg: No edema. Comments: Lumbar full flexion -SLR x2 DTR s 2+ bilat patellar/achilles MMT 5/5 bilat Skin: General: Skin is warm and dry. Capillary Refill: Capillary refill takes 2 to 3 seconds. Neurological: General: No focal deficit present. Mental Status: He is alert. Deep Tendon Reflexes: Reflexes normal. Psychiatric: Mood and Affect: Mood normal. Behavior: Behavior normal. Thought Content: Thought content normal. Judgment: Judgment normal. ASSESSMENT AND PLAN: Follow up in about 3 months (around 05/17/2024) for Recheck. Problem List Items Addressed This Visit Type 2 diabetes mellitus without complication, with long-term current use of insulin ([facility]) - Primary Check blood sugars daily, notify if <70 [...] metfromin 500mg daily Fu in 3 months Relevant Medications metFORMIN (Glucophage) 500 MG tablet Other Relevant Orders Hemoglobin A1c PAD (peripheral artery disease) (CMS/HCC) Continue asa and statin Primary hypertension (CMS/HCC) Please check blood pressure daily and record DASH diet Limit caffeine Take medication as directed Contact office if chest pain, pressure, dizziness, shortness of breath, swelling legs Recommend slow position changes Cont current meds Lumbosacral spondylosis without myelopathy Will call his pain mgmt to schedule Tubulovillous adenoma of colon Refer back to ольга Relevant Orders Ambulatory referral to General Surgery Riley esophagus Needs repeat EGD Ольга BPH (benign prostatic hyperplasia) Continue with flomax Erectile dysfunction 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 pectoris (CMS/HCC) Cont with asa, statin, b cesilia And cardiology Colon cancer screening Colon cancer screening options were discussed with patient, as well as why colon cancer screening is indicated. Options are Colonoscopy: direct visualization, every 10 years (unless indicated more frequently), risks and benefits were discussed Cologuard: every 3 years, risks and benefits were discussed , contraindications were discussed (family hx of colon cancer, colon polyps) Patient has elected to: Relevant Orders Ambulatory referral to General Surgery Associated Problem(s): Colon cancer screening Colon cancer screening options were discussed with patient, as well as why colon cancer screening is indicated. Options are Colonoscopy: direct visualization, every 10 years (unless indicated more frequently), risks and benefits were discussed Cologuard: every 3 years, risks and benefits were discussed , contraindications were discussed (family hx of colon cancer, colon polyps) Patient has elected to: Associated Problem(s): Riley esophagus Needs repeat EGD Magdalenes Associated Problem(s): Type 2 diabetes mellitus without complication, with long-term current use of insulin ([facility]) Check blood sugars daily, notify if <70 [...] metfromin 500mg daily Fu in 3 months Associated Problem(s): BPH (benign prostatic hyperplasia) Continue with flomax Associated Problem(s): 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 pectoris ([facility]) Cont with asa, statin, b cesilia And cardiology Associated Problem(s): PAD (peripheral artery disease) ([facility]) Continue asa and statin Associated Problem(s): Primary hypertension ([facility]) Please check blood pressure daily and record DASH diet Limit caffeine Take medication as directed Contact office if chest pain, pressure, dizziness, shortness of breath, swelling legs Recommend slow position changes Cont current meds documented in this encounter [facility] 02-15-2024 Instructions Marisol Boyce NP - 02/15/2024 1:20 PM EST Restart metformin at 500mg once a day in morning, will call you in a month to see how sugars are doing: goal is at least 75-80% of time in range Refer to Dr Mauricio for EGD/Colonoscopy, NOT DURING [facility]!!! Keep up with cardiac rehab Schedule diabetic eye exam documented in this encounter [facility] 02-02-2024 Telephone encounter Note Have we heard any reponse on a note I sent to you a few weeks ago about his metfromin?? LA [facility] 02-02-2024 Miscellaneous Notes Have we heard any reponse on a note I sent to you a few weeks ago about his metfromin?? [place] documented in this encounter [facility] 01-04-2024 History of Present illness Narrative Associated Problem(s): Type 2 diabetes mellitus without complication, with long-term current use of insulin (CMS/HCC) Consider GLP 1 possible hx of Pancreatitis but not totally sure, will look back in records If no GLP 1, consider bolus insulin with meals See list of blood sugar reads Associated Problem(s): Primary hypertension (CMS/HCC) Stable today in office, suspicion the intermittent dizziness he gets with a position changes is more of an orthostatic change Slow position changes Reviewing his med list: out list says lisinopril 20mg and amolodipine 5mg, he thinks his lisinopril is only 5 or 10mg and he does not think he is taking his amlodipine, I did call Joan at [facility] cardiology and she will verify Pt is concerned about his blood sugars- Images from the original note were not included. Kimmy Mcarthur is a 78 y.o. male presents with chief complaint of No chief complaint on file. HPI: See list for blood sugar goals Diabetes He presents for his follow-up diabetic visit. He has type 2 diabetes mellitus. His disease course has been fluctuating. Hypoglycemia symptoms include dizziness. Pertinent negatives for hypoglycemia include no nervousness/anxiousness, seizures or tremors. Associated symptoms include fatigue. Pertinent negatives for diabetes include no chest pain, no foot paresthesias, no polydipsia, no polyphagia, no polyuria, no visual change and no weakness. There are no hypoglycemic complications. Diabetic complications include heart disease and PVD. Pertinent negatives for diabetic complications include no peripheral neuropathy. Risk factors for coronary artery disease include diabetes mellitus, dyslipidemia, male sex and sedentary lifestyle. Current diabetic treatment includes oral agent (dual therapy) and insulin injections. He is compliant with treatment all of the time. His home blood glucose trend is increasing steadily. His breakfast blood glucose range is generally 110-130 mg/dl. An COLLEEN inhibitor/angiotensin II receptor cesilia is being taken. Hypertension This is a chronic problem. The current episode started more than 1 year ago. The problem is unchanged. The problem is controlled. Pertinent negatives include no chest pain or shortness of breath. There are no associated agents to hypertension. Risk factors for coronary artery disease include diabetes mellitus, dyslipidemia and male gender. Past treatments include COLLEEN inhibitors and beta blockers. The current treatment provides significant improvement. There are no compliance problems. Hypertensive end-organ damage includes CAD/MT and PVD. SUBJECTIVE: MEDICATIONS: Current Outpatient Medications Medication Instructions amiodarone (PACERONE) 200 mg, Oral, Daily with breakfast amLODIPine (NORVASC) 5 mg, Oral, Daily RT apixaban (ELIQUIS) 5 mg, Oral, 2 times daily Aspirin Low Dose 81 mg, Oral, Daily atorvastatin (LIPITOR) 80 mg, Oral, Daily carvedilol (COREG) 3.125 mg, Oral, 2 times daily with meals Continuous Glucose Cane Loader (Dexcom G7 Cane Loader) device 1 each, Does not apply, Daily Continuous Glucose Sensor (Dexcom G7 Sensor) misc 1 each, Does not apply, Daily dapagliflozin (Farxiga) 5 MG Oral ezetimibe (ZETIA) 10 mg, Oral, Nightly ferrous sulfate (FEROSUL) 325 mg, Oral, 2 times daily with meals insulin glargine (Basaglar KwikPen) 100 UNIT/ML pen Up to 50 units daily lisinopril 20 mg, Oral, Daily RT OneTouch Verio test strip 1 each, Other, Daily sennosides (SENOKOT) 8.6 mg, Oral, 2 times daily tamsulosin (FLOMAX) 0.4 mg, Oral, Daily ALLERGIES: No Known Allergies REVIEW OF SYMPTOMS: Review of Systems Constitutional: Positive for fatigue. Negative for activity change, appetite change and unexpected weight change. HENT: Negative for ear pain, nosebleeds, sneezing, trouble swallowing and voice change. Eyes: Negative for pain, discharge and visual disturbance. Respiratory: Negative for apnea, chest tightness, shortness of breath and wheezing. Cardiovascular: Negative for chest pain and leg swelling. Gastrointestinal: Negative for abdominal distention, blood in stool, constipation and diarrhea. Genitourinary: Negative for decreased urine volume, difficulty urinating, dysuria and hematuria. Skin: Negative for color change. Neurological: Positive for dizziness. Negative for tremors, seizures and weakness. Psychiatric/Behavioral: Negative for agitation, decreased concentration, hallucinations, self-injury and suicidal ideas. The patient is not nervous/anxious. Hematological: Negative for adenopathy. Does not bruise/bleed easily. Endocrine: Negative for cold intolerance, heat intolerance, polydipsia, polyphagia and polyuria. Allergic/Immunologic: Negative for environmental allergies and food allergies. 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) 03/02/2023 COVID-19 virus detected Depression ([facility]) Erectile dysfunction 06/07/2023 Fatigue Granuloma annulare Hearing loss, bilateral Hyperlipidemia ([facility]) 06/07/2023 WESTLEY (iron deficiency anemia) 04/11/2023 Lumbar spondylosis Lumbosacral pain 04/11/2023 CORNELIA (obstructive sleep apnea) 06/07/2023 PAD (peripheral artery disease) ([facility]) 03/25/2023 Primary hypertension ([facility]) 04/11/2023 Tobacco user 06/07/2023 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 Type 2 diabetes mellitus without complication, with long-term current use of insulin [place] 03/22/2023 Past Surgical History: Procedure Laterality Date CATARACT EXTRACTION, BILATERAL CHOLECYSTECTOMY CORONARY STENT PLACEMENT CT ANGIOGRAM HEART CORONARY 10/04/2023 CT ANGIOGRAM TAVR 10/04/2023 CT ANGIOGRAM NECK 03/08/2021 CT ANGIOGRAM NECK family history includes Cancer in his father; Diabetes in his father; Heart disease in his father. OBJECTIVE: Visit Vitals BP 124/78 (BP Location: Left arm, Patient Position: Sitting, BP Cuff Size: Adult long) Pulse 79 Temp 98.1 F (Temporal) Resp 19 Wt 172 lb 9.6 oz SpO2 97% BMI 23.41 kg/m Smoking Status Former BSA 1.99 m Physical Exam Vitals and nursing note reviewed. Constitutional: Appearance: Normal appearance. HENT: Head: Normocephalic. Right Ear: External ear normal. Left Ear: External ear normal. Nose: Nose normal. Mouth/Throat: Mouth: Mucous membranes are moist. Pharynx: Oropharynx is clear. Eyes: Extraocular Movements: Extraocular movements intact. Conjunctiva/sclera: Conjunctivae normal. Neck: Vascular: No carotid bruit. Cardiovascular: Rate and Rhythm: Normal rate and regular rhythm. Pulses: Normal pulses. Heart sounds: Normal heart sounds. Pulmonary: Effort: Pulmonary effort is normal. Breath sounds: Normal breath sounds. No wheezing or rales. Abdominal: General: Bowel sounds are normal. Palpations: Abdomen is soft. Tenderness: There is no abdominal tenderness. There is no guarding. Musculoskeletal: Cervical back: Neck supple. Right lower leg: No edema. Left lower leg: No edema. Lymphadenopathy: Cervical: No cervical adenopathy. Skin: General: Skin is warm and dry. Capillary Refill: Capillary refill takes 2 to 3 seconds. Neurological: General: No focal deficit present. Mental Status: He is alert. Psychiatric: Mood and Affect: Mood normal. Behavior: Behavior normal. Thought Content: Thought content normal. Judgment: Judgment normal. ASSESSMENT AND PLAN: No follow-ups on file. Problem List Items Addressed This Visit Type 2 diabetes mellitus without complication, with long-term current use of insulin ([facility]) Consider GLP 1 possible hx of Pancreatitis but not totally sure, will look back in records If no GLP 1, consider bolus insulin with meals See list of blood sugar reads Primary hypertension (CMS/HCC) Stable today in office, suspicion the intermittent dizziness he gets with a position changes is more of an orthostatic change Slow position changes Reviewing his med list: out list says lisinopril 20mg and amolodipine 5mg, he thinks his lisinopril is only 5 or 10mg and he does not think he is taking his amlodipine, I did call Joan at [facility] cardiology and she will verify Chronic thoracic back pain - Primary Relevant Orders XR thoracic spine 3 views documented in this encounter [facility] 11-29-2023 Note lis [facility] 11-29-2023 Note [facility] 11-29-2023 Note [facility] Cardiology Clinic Note Chief Complaint: Pt is [...] Final Discharge Diagnosis: 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 pectoris ([facility]) Admission Diagnosis: A-fib ([facility]) [I48.91] Hospital course: 78 yo M with history of multivessel CAD s/p RCA stent 2022, HFpEF, MVR, HTN, PAD, IDDM2 who presented to outside ED with chest pressure and was found to be in Afib with RVR with rates up to 150s. Troponin was elevated at 100. He was given Cardizem, which converted him to sinus, and he was transferred to [facility]. He was placed on ASA/Plavix as well [...] Center 10/13/2023 11:00 AM Natasha Campo MD [facility] 11/07/2023 7:30 AM [facility] MR 2 [facility] ORTH MR MPORTHO 11/08/2023 2:00 PM Peter Christensen MD [facility] Your medication list START taking [...] Your Medications These medications were sent to [facility] - [place], [place] - [facility] [address] [facility] [id number] ??? amiodarone 200 mg tablet ??? carvedilol 3.125 mg tablet ??? lisinopril 20 mg tablet These medications were sent to [facility] [place] [address] [address] [place] [address] [facility] [place] [address] [place] [id number] (more content not included)... 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 Kimmy Mcarthur is a 78 y.o. male presents with chief complaint of No chief complaint on file. HPI: Here to discuss his cardiovascular status. He is in need of bypass surgery and valve repair as well. However it was determined that he had a pseudoaneurysm He was to wait for a month and had fu testing and aneurysm had shank in size but was still present. Ultimately it was decided that after all of this, he is now going to be managed medically and not surgically. He and his present today frustrated at the process and want to discuss this. He denies chest pain, does have dizziness and fatigue, no acute shortness of breath. Sm amount of swelling to legs as well SUBJECTIVE: MEDICATIONS: Current Outpatient Medications Medication Instructions amiodarone (PACERONE) 200 mg, Oral, Daily with breakfast amLODIPine (NORVASC) 5 mg, Oral, Daily RT apixaban (ELIQUIS) 5 mg, Oral, 2 times daily Aspirin Low Dose 81 mg, Oral, Daily atorvastatin (LIPITOR) 80 mg, Oral, Daily carvedilol (COREG) 3.125 mg, Oral, 2 times daily with meals Continuous Glucose Cane Loader (Dexcom G7 Cane Loader) device 1 each, Does not apply, Daily Continuous Glucose Sensor (Dexcom G7 Sensor) misc 1 each, Does not apply, Daily dapagliflozin (Farxiga) 5 MG Oral ezetimibe (ZETIA) 10 mg, Oral, Nightly ferrous sulfate (FEROSUL) 325 mg, Oral, 2 times daily with meals insulin glargine (Basaglar KwikPen) 100 UNIT/ML pen Up to 50 units daily lisinopril 20 mg, Oral, Daily RT OneTouch Verio test strip 1 each, Other, Daily sennosides (SENOKOT) 8.6 mg, Oral, 2 times daily tamsulosin (FLOMAX) 0.4 mg, Oral, Daily ALLERGIES: No Known Allergies REVIEW OF SYMPTOMS: Review of Systems Constitutional: Positive for fatigue. Negative for activity change, appetite change and unexpected weight change. HENT: Negative for ear pain, nosebleeds, sneezing, trouble swallowing and voice change. Eyes: Negative for pain, discharge and visual disturbance. Respiratory: Negative for apnea, chest tightness and wheezing. Cardiovascular: Positive for leg swelling. Gastrointestinal: Negative for abdominal distention, blood in stool, constipation and diarrhea. Genitourinary: Negative for decreased urine volume, difficulty urinating, dysuria and hematuria. Skin: Negative for color change. Neurological: Negative for dizziness, tremors and seizures. Psychiatric/Behavioral: Negative for agitation, decreased concentration, hallucinations, self-injury and suicidal ideas. The patient is not nervous/anxious. Hematological: Negative for adenopathy. Does not bruise/bleed easily. Endocrine: Negative for cold intolerance, heat intolerance, polydipsia and polyuria. Allergic/Immunologic: Negative for environmental allergies and food allergies. 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) 06/07/2023 BPH (benign prostatic hyperplasia) 06/07/2023 Cervical spinal stenosis 06/07/2023 Coronary artery disease 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 angina pectoris ([facility]) 03/02/2023 COVID-19 virus detected Depression ([facility]) Erectile dysfunction 06/07/2023 Fatigue Granuloma annulare Hearing loss, bilateral Hyperlipidemia ([facility]) 06/07/2023 WESTLEY (iron deficiency anemia) 04/11/2023 Lumbar spondylosis Lumbosacral pain 04/11/2023 CORNELIA (obstructive sleep apnea) 06/07/2023 PAD (peripheral artery disease) ([facility]) 03/25/2023 Primary hypertension (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) 03/22/2023 Past Surgical History: Procedure Laterality Date CATARACT EXTRACTION, BILATERAL CHOLECYSTECTOMY CORONARY STENT PLACEMENT CT ANGIOGRAM HEART CORONARY 10/04/2023 CT ANGIOGRAM TAVR 10/04/2023 CT ANGIOGRAM NECK 03/08/2021 CT ANGIOGRAM NECK family history includes Cancer in his father; Diabetes in his father; Heart disease in his father. OBJECTIVE: Visit Vitals BP 98/64 (BP Location: Left arm, Patient Position: Sitting, BP Cuff Size: Adult long) Pulse 56 Temp 97.8 F (Temporal) Resp 18 Ht 6' Wt 170 lb 12.8 oz SpO2 96% BMI 23.16 kg/m Smoking Status Former BSA 1.98 m Physical Exam Vitals and nursing note reviewed. Constitutional: Appearance: Normal appearance. HENT: Head: Normocephalic. Right Ear: External ear normal. Left Ear: External ear normal. Nose: Nose normal. Mouth/Throat: Mouth: Mucous membranes are moist. Pharynx: Oropharynx is clear. Eyes: Extraocular Movements: Extraocular movements intact. Conjunctiva/sclera: Conjunctivae normal. Neck: Vascular: No carotid bruit. Cardiovascular: Rate and Rhythm: Normal rate and regular rhythm. Pulses: Normal pulses. Heart sounds: Normal heart sounds. Pulmonary: Effort: Pulmonary effort is normal. Breath sounds: Normal breath sounds. Abdominal: General: Bowel sounds are normal. Palpations: Abdomen is soft. Musculoskeletal: Cervical back: Neck supple. Right lower leg: Edema present. Left lower leg: Edema present. Comments: Trace pre tibial bilat Skin: General: Skin is warm and dry. Capillary Refill: Capillary refill takes 2 to 3 seconds. Neurological: General: No focal deficit present. Mental Status: He is alert. Psychiatric: Mood and Affect: Mood normal. Behavior: Behavior normal. Thought Content: Thought content normal. Judgment: Judgment normal. ASSESSMENT AND PLAN: No follow-ups on file. Problem List Items Addressed This Visit Coronary artery disease 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 angina pectoris ([facility]) - Primary Primary hypertension ([facility]) No med dose changes at this time Nonrheumatic mitral valve regurgitation Cont with cardiology for recommendations A-fib (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 Document Revised: 06/10/2021 Document Reviewed: 06/10/2021 [employer] Patient Education 2022 Immediately. Follow Up Care 06/18/2022 10:46:56 With:Chris QUINTANA, GEORGE Mitchell, URO Address: When:Within 1 Year(s) [facility] 06-16-2022 Hospital Discharge instructions Patient Education 06/16/2022 [...] urethra. Follow these instructions at home: Take heaz-toy-filvyvg and prescription medicines only as told by [...] 03/14/2006 Document Revised: 02/06/2019 Document Reviewed: 04/18/2017 [employer] Patient Education 2020 [employer] Follow Up Care 06/18/2021 11:18:31 With:Chris QUINTANA, GEORGE Mitchell, URO Address: When: Unknown [facility] 06-18-2021 Hospital Discharge instructions Patient Education 06/18/2021 [...] 03/14/2006 Document Revised: 12/01/2018 Document Reviewed: 02/11/2017 [employer] Patient Education 2020 [employer] 06/18/2021 11:19:47 Benign Prostatic Hyperplasia Benign Prostatic [...] urethra. Follow these instructions at home: Take qhzm-azd-ixwabvd and prescription medicines only as told by [...] 03/14/2006 Document Revised: 02/06/2019 Document Reviewed: 04/18/2017 [employer] Patient Education 2020 [employer] Follow Up Care 06/12/2020 11:26:53 With:ZULMA QUINTANA, Carlitos Villar, URL Address: [address] [place] [id number] [phone] When:Within 1 Year(s) Comments:[place]/GHAZALA [facility] Evaluation + Plan note Future Appointments Appointment Date:06/18/2022 10:00:00 AM Scheduled Provider:Deja Perez MD Location:[facility] Appointment Type:URO Office Visit Diagnostic Tests PendingPSA Total 06/18/21 [facility] Evaluation + Plan note Future Appointments Appointment Date:06/23/2023 10:00:00 AM Scheduled Provider:Deja Perez MD Location:[facility] Appointment Type:URO Office Visit Diagnostic Tests PendingPSA Free & Total 06/18/22 [facility] Evaluation + Plan note Future Appointments Appointment Date:07/04/2024 10:45:00 AM Scheduled Provider:Deja Perez MD Location:[facility] Appointment Type:URO Office Visit Diagnostic Tests PendingPSA Screen, Total 07/11/23 [facility] Evaluation + Plan note Future Appointments Appointment Date:07/18/2024 08:15:00 AM Scheduled Provider:Deja Perez MD Location:[facility] Appointment Type:URO Office Visit [facility] Evaluation note Diagnosis Type 2 diabetes mellitus without complication, with long-term current use of insulin ([facility])- Primary Chronic thoracic back pain, unspecified back pain laterality Primary hypertension ([facility]) Unspecified essential hypertension [facility] Diagnosis Type 2 diabetes mellitus without complication, with long-term current use of insulin ([facility])- Primary Primary hypertension (CMS/HCC) Unspecified essential hypertension Coronary artery disease 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 angina pectoris ([facility]) PAD (peripheral artery disease) (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) Peripheral vascular disease, unspecified (I73.9) Peripheral vascular disease, unspecified Mixed hyperlipidemia (CMS/HCC) Mixed hyperlipidemia Iron deficiency anemia, unspecified iron deficiency anemia type Type 2 diabetes mellitus without complication, with long-term current use of insulin (CMS/HCC) COPD, moderate (CMS/HCC) Primary hypertension (CMS/HCC) Unspecified essential hypertension Coronary artery disease 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 angina pectoris (CMS/HCC) PAD (peripheral artery disease) (CMS/HCC) Unspecified peripheral vascular disease Nonrheumatic mitral valve regurgitation Riley's esophagus with dysplasia Benign prostatic hyperplasia with lower urinary tract symptoms, symptom details unspecified Primary hypertension (CMS/HCC)- Primary Unspecified essential hypertension Type 2 diabetes mellitus without complication, with long-term current use of insulin (CMS/HCC) 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 pectoris (CMS/HCC)- Primary Type 2 diabetes mellitus with other specified complication (CMS/HCC) Male erectile dysfunction, unspecified Type 2 diabetes mellitus 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 (CMS/HCC) Acute cough Primary hypertension (CMS/HCC) Unspecified essential hypertension Paroxysmal atrial fibrillation (CMS/HCC) Atrial fibrillation Type 2 diabetes mellitus without complication, with long-term current use of insulin (CMS/HCC) Coronary artery disease 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 angina pectoris (CMS/HCC)- Primary Other thrombophilia (CMS/HCC) Paroxysmal atrial fibrillation (CMS/HCC) Atrial fibrillation Nonrheumatic mitral valve regurgitation Primary hypertension (CMS/HCC) Unspecified essential hypertension 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) Type 2 diabetes mellitus without complication, with long-term current use of insulin (CMS/HCC)- Primary Chronic thoracic back pain, unspecified back pain laterality Primary hypertension (CMS/HCC) Unspecified essential hypertension Type 2 diabetes mellitus without complication, with long-term current use of insulin (CMS/HCC)- Primary Primary hypertension (CMS/HCC) Unspecified essential hypertension PAD (peripheral artery disease) (CMS/HCC) Unspecified peripheral vascular disease 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 pectoris (CMS/HCC) Riley's esophagus with dysplasia Erectile dysfunction due to diseases classified elsewhere Benign prostatic hyperplasia with lower urinary tract symptoms, symptom details unspecified Colon cancer screening Special screening for malignant neoplasms, colon Tubulovillous adenoma of colon Lumbosacral spondylosis without myelopathy documented in this encounter [facility] HealthcareEvaluation note* Diagnosis Coronary artery disease 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 angina pectoris (CMS/HCC)- Primary Other thrombophilia (CMS/HCC) Paroxysmal atrial fibrillation (CMS/HCC) Atrial fibrillation Nonrheumatic mitral valve regurgitation Primary hypertension (CMS/HCC) Unspecified essential hypertension 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) documented in this encounter [facility] HealthcareEvaluation note* Diagnosis Benign prostatic hyperplasia with lower urinary tract symptoms, symptom details unspecified- Primary documented in this encounter [facility] HealthcareEvaluation note* Diagnosis Type 2 diabetes mellitus without complication, with long-term current use of insulin (CMS/HCC)- Primary Primary hypertension (CMS/HCC) Unspecified essential hypertension Coronary artery disease 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 angina pectoris (CMS/HCC) PAD (peripheral artery disease) (CMS/HCC) Unspecified peripheral vascular disease Iron deficiency anemia, unspecified iron deficiency anemia type Lumbosacral pain Encounter for subsequent annual wellness visit (AWV) in 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) Peripheral vascular disease, unspecified (I73.9) Peripheral vascular disease, unspecified Mixed hyperlipidemia (CMS/HCC) Mixed hyperlipidemia Iron deficiency anemia, unspecified iron deficiency anemia type Type 2 diabetes mellitus without complication, with long-term current use of insulin (/HCC) COPD, moderate (CMS/HCC) Primary hypertension (CMS/HCC) Unspecified essential hypertension Coronary artery disease 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 angina pectoris (CMS/HCC) PAD (peripheral artery disease) (CMS/HCC) Unspecified peripheral vascular disease Nonrheumatic mitral valve regurgitation Riley's esophagus with dysplasia Benign prostatic hyperplasia with lower urinary tract symptoms, symptom details unspecified Primary hypertension (CMS/HCC)- Primary Unspecified essential hypertension Type 2 diabetes mellitus without complication, with long-term current use of insulin (CMS/HCC) 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 pectoris (CMS/HCC)- Primary Type 2 diabetes mellitus with other specified complication (CMS/HCC) Male erectile dysfunction, unspecified Type 2 diabetes mellitus 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 (CMS/HCC) Acute cough Primary hypertension (CMS/HCC) Unspecified essential hypertension Paroxysmal atrial fibrillation (CMS/HCC) Atrial fibrillation Type 2 diabetes mellitus without complication, with long-term current use of insulin (CMS/HCC) Coronary artery disease 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 angina pectoris (CMS/HCC)- Primary Other thrombophilia (CMS/HCC) Paroxysmal atrial fibrillation (CMS/HCC) Atrial fibrillation Nonrheumatic mitral valve regurgitation Primary hypertension (CMS/HCC) Unspecified essential hypertension 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) Type 2 diabetes mellitus without complication, with long-term current use of insulin (CMS/HCC)- Primary Chronic thoracic back pain, unspecified back pain laterality Primary hypertension (CMS/HCC) Unspecified essential hypertension Type 2 diabetes mellitus without complication, with long-term current use of insulin (/HCC)- Primary Primary hypertension (CMS/HCC) Unspecified essential hypertension PAD (peripheral artery disease) (CMS/HCC) Unspecified peripheral vascular disease 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 pectoris (/) Riley's esophagus with dysplasia Erectile dysfunction due to diseases classified elsewhere Benign prostatic hyperplasia with lower urinary tract symptoms, symptom details unspecified Colon cancer screening Special screening for malignant neoplasms, colon Tubulovillous adenoma of colon Lumbosacral spondylosis without myelopathy Type 2 diabetes mellitus without complication, with long-term current use of insulin (/HCC)- Primary documented in this encounter [facility] HealthcareEvaluation note* Diagnosis Encounter for colonoscopy due to history of colonic polyp- Primary 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 [facility]* Diagnosis Type 2 diabetes mellitus without complication, with long-term current use of insulin (/)- Primary Primary hypertension (/HCC) Unspecified essential hypertension Coronary artery disease 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 angina pectoris (CMS/HCC) PAD (peripheral artery disease) (/) Unspecified peripheral vascular disease Iron deficiency anemia, unspecified iron deficiency anemia type Lumbosacral pain Encounter for subsequent annual wellness visit (AWV) in 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) Peripheral vascular disease, unspecified (I73.9) Peripheral vascular disease, unspecified Mixed hyperlipidemia (/HCC) Mixed hyperlipidemia Iron deficiency anemia, unspecified iron deficiency anemia type Type 2 diabetes mellitus without complication, with long-term current use of insulin (/HCC) COPD, moderate (CMS/HCC) Primary hypertension (CMS/HCC) Unspecified essential hypertension Coronary artery disease 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 angina pectoris (CMS/HCC) PAD (peripheral artery disease) (CMS/HCC) Unspecified peripheral vascular disease Nonrheumatic mitral valve regurgitation Riley's esophagus with dysplasia Benign prostatic hyperplasia with lower urinary tract symptoms, symptom details unspecified Primary hypertension (CMS/HCC)- Primary Unspecified essential hypertension Type 2 diabetes mellitus without complication, with long-term current use of insulin (CMS/HCC) 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 pectoris (CMS/HCC)- Primary Type 2 diabetes mellitus with other specified complication (CMS/HCC) Male erectile dysfunction, unspecified Type 2 diabetes mellitus 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 (CMS/HCC) Acute cough Primary hypertension (CMS/HCC) Unspecified essential hypertension Paroxysmal atrial fibrillation (CMS/HCC) Atrial fibrillation Type 2 diabetes mellitus without complication, with long-term current use of insulin (CMS/HCC) Coronary artery disease 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 angina pectoris (CMS/HCC)- Primary Other thrombophilia (CMS/HCC) Paroxysmal atrial fibrillation (CMS/HCC) Atrial fibrillation Nonrheumatic mitral valve regurgitation Primary hypertension (CMS/HCC) Unspecified essential hypertension 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) Type 2 diabetes mellitus without complication, with long-term current use of insulin (CMS/HCC)- Primary Chronic thoracic back pain, unspecified back pain laterality Primary hypertension (CMS/HCC) Unspecified essential hypertension Type 2 diabetes mellitus without complication, with long-term current use of insulin (CMS/HCC)- Primary Primary hypertension (CMS/HCC) Unspecified essential hypertension PAD (peripheral artery disease) (CMS/HCC) Unspecified peripheral vascular disease 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 pectoris (CMS/HCC) Riley's esophagus with dysplasia Erectile dysfunction due to diseases classified elsewhere Benign prostatic hyperplasia with lower urinary tract symptoms, symptom details unspecified Colon cancer screening Special screening for malignant neoplasms, colon Tubulovillous adenoma of colon Lumbosacral spondylosis without myelopathy Type 2 diabetes mellitus without complication, with long-term current use of insulin (CMS/HCC)- Primary documented in this encounter [facility] HealthcareEvaluation noteNo assessment information availableSelect Medical Special[facility] Work Phone: Evaluation note* Diagnosis Type 2 diabetes mellitus without complication, with long-term current use of insulin (CMS/HCC)- Primary Primary hypertension (CMS/HCC) Unspecified essential hypertension Coronary artery disease 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 angina pectoris (CMS/HCC) PAD (peripheral artery disease) (CMS/HCC) Unspecified peripheral vascular disease Iron deficiency anemia, unspecified iron deficiency anemia type Lumbosacral pain Encounter for subsequent annual wellness visit (AWV) in 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) Peripheral vascular disease, unspecified (I73.9) Peripheral vascular disease, unspecified Mixed hyperlipidemia (CMS/HCC) Mixed hyperlipidemia Iron deficiency anemia, unspecified iron deficiency anemia type Type 2 diabetes mellitus without complication, with long-term current use of insulin (CMS/HCC) COPD, moderate (CMS/HCC) Primary hypertension (CMS/HCC) Unspecified essential hypertension Coronary artery disease 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 angina pectoris (CMS/HCC) PAD (peripheral artery disease) (CMS/HCC) Unspecified peripheral vascular disease Nonrheumatic mitral valve regurgitation Riley's esophagus with dysplasia Benign prostatic hyperplasia with lower urinary tract symptoms, symptom details unspecified Primary hypertension (CMS/HCC)- Primary Unspecified essential hypertension Type 2 diabetes mellitus without complication, with long-term current use of insulin (CMS/HCC) 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 pectoris (CMS/HCC)- Primary Type 2 diabetes mellitus with other specified complication (CMS/HCC) Male erectile dysfunction, unspecified Type 2 diabetes mellitus 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 (CMS/HCC) Acute cough Primary hypertension (CMS/HCC) Unspecified essential hypertension Paroxysmal atrial fibrillation (CMS/HCC) Atrial fibrillation Type 2 diabetes mellitus without complication, with long-term current use of insulin (CMS/HCC) Coronary artery disease 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 angina pectoris (CMS/HCC)- Primary Other thrombophilia (CMS/HCC) Paroxysmal atrial fibrillation (CMS/HCC) Atrial fibrillation Nonrheumatic mitral valve regurgitation Primary hypertension (CMS/HCC) Unspecified essential hypertension 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) Type 2 diabetes mellitus without complication, with long-term current use of insulin (CMS/HCC)- Primary Chronic thoracic back pain, unspecified back pain laterality Primary hypertension (CMS/HCC) Unspecified essential hypertension Type 2 diabetes mellitus without complication, with long-term current use of insulin (CMS/HCC)- Primary Primary hypertension (CMS/HCC) Unspecified essential hypertension PAD (peripheral artery disease) (CMS/HCC) Unspecified peripheral vascular disease 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 pectoris (CMS/HCC) Riley's esophagus with dysplasia Erectile dysfunction due to diseases classified elsewhere Benign prostatic hyperplasia with lower urinary tract symptoms, symptom details unspecified Colon cancer screening Special screening for malignant neoplasms, colon Tubulovillous adenoma of colon Lumbosacral spondylosis without myelopathy Type 2 diabetes mellitus without complication, with long-term current use of insulin (CMS/HCC) documented in this encounter [facility] HealthcareEvaluation note* Diagnosis Encounter for colonoscopy due to history of colonic polyp- Primary 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 documented in this encounter [facility] SystemEvaluation [facility]* Diagnosis Type 2 diabetes mellitus without complication, with long-term current use of insulin (CMS/HCC)- Primary Primary hypertension (CMS/HCC) Unspecified essential hypertension Coronary artery disease 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 angina pectoris (CMS/HCC) PAD (peripheral artery disease) (CMS/HCC) Unspecified peripheral vascular disease Iron deficiency anemia, unspecified iron deficiency anemia type Lumbosacral pain Encounter for subsequent annual wellness visit (AWV) in Medicare patient- Primary [facility] (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 of insulin (Z79.4) Peripheral vascular disease, unspecified (I73.9) Peripheral vascular disease, unspecified Mixed hyperlipidemia (CMS/HCC) Mixed hyperlipidemia Iron deficiency anemia, unspecified iron deficiency anemia type Type 2 diabetes mellitus without complication, with long-term current use of insulin (CMS/HCC) COPD, moderate (CMS/HCC) Primary hypertension (CMS/HCC) Unspecified essential hypertension Coronary artery disease 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 angina pectoris (CMS/HCC) PAD (peripheral artery disease) (CMS/HCC) Unspecified peripheral vascular disease Nonrheumatic mitral valve regurgitation Riley's esophagus with dysplasia Benign prostatic hyperplasia with lower urinary tract symptoms, symptom details unspecified Primary hypertension (CMS/HCC)- Primary Unspecified essential hypertension Type 2 diabetes mellitus without complication, with long-term current use of insulin (CMS/HCC) 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 pectoris (CMS/HCC)- Primary Type 2 diabetes mellitus with other specified complication (CMS/HCC) Male erectile dysfunction, unspecified Type 2 diabetes mellitus 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 (CMS/HCC) Acute cough Primary hypertension (CMS/HCC) Unspecified essential hypertension Paroxysmal atrial fibrillation (CMS/HCC) Atrial fibrillation Type 2 diabetes mellitus without complication, with long-term current use of insulin (CMS/HCC) Coronary artery disease 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 angina pectoris (CMS/HCC)- Primary Other thrombophilia (CMS/HCC) Paroxysmal atrial fibrillation (CMS/HCC) Atrial fibrillation Nonrheumatic mitral valve regurgitation Primary hypertension (CMS/HCC) Unspecified essential hypertension 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) Type 2 diabetes mellitus without complication, with long-term current use of insulin (CMS/HCC)- Primary Chronic thoracic back pain, unspecified back pain laterality Primary hypertension (CMS/HCC) Unspecified essential hypertension Type 2 diabetes mellitus without complication, with long-term current use of insulin (CMS/HCC)- Primary Primary hypertension (CMS/HCC) Unspecified essential hypertension PAD (peripheral artery disease) (CMS/HCC) Unspecified peripheral vascular disease 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 pectoris (CMS/HCC) Riley's esophagus with dysplasia Erectile dysfunction due to diseases classified elsewhere Benign prostatic hyperplasia with lower urinary tract symptoms, symptom details unspecified Colon cancer screening Special screening for malignant neoplasms, colon Tubulovillous adenoma of colon Lumbosacral spondylosis without myelopathy Type 2 diabetes mellitus without complication, with long-term current use of insulin (CMS/HCC)- Primary Centrilobular emphysema (CMS/HCC) Type 2 diabetes mellitus with other specified complication (CMS/HCC) Erectile dysfunction due to diseases classified elsewhere Type 2 diabetes mellitus 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 (CMS/HCC) Paroxysmal atrial fibrillation (CMS/HCC) Atrial fibrillation Coronary artery disease 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 angina pectoris (CMS/HCC) Primary hypertension (CMS/HCC) Unspecified essential hypertension PAD (peripheral artery disease) (CMS/HCC) Unspecified peripheral vascular disease Iron deficiency anemia, unspecified iron deficiency anemia type Mixed hyperlipidemia (CMS/HCC) Mixed hyperlipidemia Primary insomnia Persistent disorder of initiating or maintaining sleep documented in this encounter [facility] HealthcareEvaluation note* Diagnosis Type 2 diabetes mellitus without complication, with long-term current use of insulin (CMS/HCC)- Primary Primary hypertension (CMS/HCC) Unspecified essential hypertension Coronary artery disease 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 angina pectoris (CMS/HCC) PAD (peripheral artery disease) (CMS/HCC) Unspecified peripheral vascular disease Iron deficiency anemia, unspecified iron deficiency anemia type Lumbosacral pain Encounter for subsequent annual wellness visit (AWV) in Medicare patient- Primary [facility] (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 of insulin (Z79.4) Peripheral vascular disease, unspecified (I73.9) Peripheral vascular disease, unspecified Mixed hyperlipidemia (CMS/HCC) Mixed hyperlipidemia Iron deficiency anemia, unspecified iron deficiency anemia type Type 2 diabetes mellitus without complication, with long-term current use of insulin (CMS/HCC) COPD, moderate (CMS/HCC) Primary hypertension (CMS/HCC) Unspecified essential hypertension Coronary artery disease 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 angina pectoris (CMS/HCC) PAD (peripheral artery disease) (CMS/HCC) Unspecified peripheral vascular disease Nonrheumatic mitral valve regurgitation Riley's esophagus with dysplasia Benign prostatic hyperplasia with lower urinary tract symptoms, symptom details unspecified Primary hypertension (CMS/HCC)- Primary Unspecified essential hypertension Type 2 diabetes mellitus without complication, with long-term current use of insulin (/HCC) 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 pectoris (CMS/HCC)- Primary Type 2 diabetes mellitus with other specified complication (CMS/HCC) Male erectile dysfunction, unspecified Type 2 diabetes mellitus 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 (CMS/HCC) Acute cough Primary hypertension (CMS/HCC) Unspecified essential hypertension Paroxysmal atrial fibrillation (CMS/HCC) Atrial fibrillation Type 2 diabetes mellitus without complication, with long-term current use of insulin (/HCC) Coronary artery disease 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 angina pectoris (CMS/HCC)- Primary Other thrombophilia (CMS/HCC) Paroxysmal atrial fibrillation (CMS/HCC) Atrial fibrillation Nonrheumatic mitral valve regurgitation Primary hypertension (CMS/HCC) Unspecified essential hypertension 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) Type 2 diabetes mellitus without complication, with long-term current use of insulin (/HCC)- Primary Chronic thoracic back pain, unspecified back pain laterality Primary hypertension (CMS/HCC) Unspecified essential hypertension Type 2 diabetes mellitus without complication, with long-term current use of insulin (CMS/HCC)- Primary Primary hypertension (CMS/HCC) Unspecified essential hypertension PAD (peripheral artery disease) (CMS/HCC) Unspecified peripheral vascular disease 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 pectoris (CMS/HCC) Riley's esophagus with dysplasia Erectile dysfunction due to diseases classified elsewhere Benign prostatic hyperplasia with lower urinary tract symptoms, symptom details unspecified Colon cancer screening Special screening for malignant neoplasms, colon Tubulovillous adenoma of colon Lumbosacral spondylosis without myelopathy Type 2 diabetes mellitus without complication, with long-term current use of insulin (CMS/HCC)- Primary Centrilobular emphysema (CMS/HCC) Type 2 diabetes mellitus with other specified complication (CMS/HCC) Erectile dysfunction due to diseases classified elsewhere Type 2 diabetes mellitus 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 (CMS/HCC) Paroxysmal atrial fibrillation (CMS/HCC) Atrial fibrillation Coronary artery disease 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 angina pectoris (CMS/HCC) Primary hypertension (CMS/HCC) Unspecified essential hypertension PAD (peripheral artery disease) (CMS/HCC) Unspecified peripheral vascular disease Iron deficiency anemia, unspecified iron deficiency anemia type Mixed hyperlipidemia (CMS/HCC) Mixed hyperlipidemia Primary insomnia 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- Primary documented in this encounter [facility] HealthcareEvaluation note* Diagnosis Type 2 diabetes mellitus without complication, with long-term current use of insulin- Primary Primary hypertension (CMS/HCC) Unspecified essential hypertension Coronary artery disease 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 angina pectoris (CMS/HCC) PAD (peripheral artery disease) (CMS/HCC) Unspecified peripheral vascular disease Iron deficiency anemia, unspecified iron deficiency anemia type Lumbosacral pain Encounter for subsequent annual wellness visit (AWV) in 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) Peripheral vascular disease, unspecified (I73.9) Peripheral vascular disease, unspecified Mixed hyperlipidemia (CMS/HCC) Mixed hyperlipidemia Iron deficiency anemia, unspecified iron deficiency anemia type Type 2 diabetes mellitus without complication, with long-term current use of insulin COPD, moderate (CMS/HCC) Primary hypertension (CMS/HCC) Unspecified essential hypertension Coronary artery disease 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 angina pectoris (CMS/HCC) PAD (peripheral artery disease) (CMS/HCC) Unspecified peripheral vascular disease Nonrheumatic mitral valve regurgitation Riley's esophagus with dysplasia Benign prostatic hyperplasia with lower urinary tract symptoms, symptom details unspecified Primary hypertension (CMS/HCC)- Primary Unspecified essential hypertension Type 2 diabetes mellitus without complication, with long-term current use of insulin 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 pectoris (CMS/HCC)- Primary Type 2 diabetes mellitus with other specified complication Male erectile dysfunction, unspecified Type 2 diabetes mellitus 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 (CMS/HCC) Acute cough Primary hypertension (CMS/HCC) Unspecified essential hypertension Paroxysmal atrial fibrillation (CMS/HCC) Atrial fibrillation Type 2 diabetes mellitus without complication, with long-term current use of insulin Coronary artery disease 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 angina pectoris (CMS/HCC)- Primary Other thrombophilia Paroxysmal atrial fibrillation (CMS/HCC) Atrial fibrillation Nonrheumatic mitral valve regurgitation Primary hypertension (CMS/HCC) Unspecified essential hypertension 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) Type 2 diabetes mellitus without complication, with long-term current use of insulin- Primary Chronic thoracic back pain, unspecified back pain laterality Primary hypertension (CMS/HCC) Unspecified essential hypertension Type 2 diabetes mellitus without complication, with long-term current use of insulin- Primary Primary hypertension (CMS/HCC) Unspecified essential hypertension PAD (peripheral artery disease) (CMS/HCC) Unspecified peripheral vascular disease 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 pectoris (CMS/HCC) Riley's esophagus with dysplasia Erectile dysfunction due to diseases classified elsewhere Benign prostatic hyperplasia with lower urinary tract symptoms, symptom details unspecified Colon cancer screening Special screening for malignant neoplasms, colon Tubulovillous adenoma of colon Lumbosacral spondylosis without myelopathy Type 2 diabetes mellitus without complication, with long-term current use of insulin- Primary Centrilobular emphysema (CMS/HCC) Type 2 diabetes mellitus with other specified complication Erectile dysfunction due to diseases classified elsewhere Type 2 diabetes mellitus 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 (CMS/HCC) Paroxysmal atrial fibrillation (CMS/HCC) Atrial fibrillation Coronary artery disease 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 angina pectoris (CMS/HCC) Primary hypertension (CMS/HCC) Unspecified essential hypertension PAD (peripheral artery disease) (CMS/HCC) Unspecified peripheral vascular disease Iron deficiency anemia, unspecified iron deficiency anemia type Mixed hyperlipidemia (CMS/HCC) Mixed hyperlipidemia Primary insomnia Persistent disorder of initiating or maintaining sleep Benign prostatic hyperplasia with lower urinary tract symptoms, symptom details unspecified- Primary documented in this encounter [facility] HealthcareEvaluation note* Diagnosis Type 2 diabetes mellitus without complication, with long-term current use of insulin- Primary Primary hypertension (CMS/HCC) Unspecified essential hypertension Coronary artery disease 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 angina pectoris (CMS/HCC) PAD (peripheral artery disease) (CMS/HCC) Unspecified peripheral vascular disease Iron deficiency anemia, unspecified iron deficiency anemia type Lumbosacral pain Encounter for subsequent annual wellness visit (AWV) in 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) Peripheral vascular disease, unspecified (I73.9) Peripheral vascular disease, unspecified Mixed hyperlipidemia (CMS/HCC) Mixed hyperlipidemia Iron deficiency anemia, unspecified iron deficiency anemia type Type 2 diabetes mellitus without complication, with long-term current use of insulin COPD, moderate (CMS/HCC) Primary hypertension (CMS/HCC) Unspecified essential hypertension Coronary artery disease 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 angina pectoris (CMS/HCC) PAD (peripheral artery disease) (CMS/HCC) Unspecified peripheral vascular disease Nonrheumatic mitral valve regurgitation Riley's esophagus with dysplasia Benign prostatic hyperplasia with lower urinary tract symptoms, symptom details unspecified Primary hypertension (CMS/HCC)- Primary Unspecified essential hypertension Type 2 diabetes mellitus without complication, with long-term current use of insulin 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 pectoris (CMS/HCC)- Primary Type 2 diabetes mellitus with other specified complication Male erectile dysfunction, unspecified Type 2 diabetes mellitus 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 (CMS/HCC) Acute cough Primary hypertension (CMS/HCC) Unspecified essential hypertension Paroxysmal atrial fibrillation (CMS/HCC) Atrial fibrillation Type 2 diabetes mellitus without complication, with long-term current use of insulin Coronary artery disease 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 angina pectoris (CMS/HCC)- Primary Other thrombophilia Paroxysmal atrial fibrillation (CMS/HCC) Atrial fibrillation Nonrheumatic mitral valve regurgitation Primary hypertension (CMS/HCC) Unspecified essential hypertension 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) Type 2 diabetes mellitus without complication, with long-term current use of insulin- Primary Chronic thoracic back pain, unspecified back pain laterality Primary hypertension (CMS/HCC) Unspecified essential hypertension Type 2 diabetes mellitus without complication, with long-term current use of insulin- Primary Primary hypertension (CMS/HCC) Unspecified essential hypertension PAD (peripheral artery disease) (CMS/HCC) Unspecified peripheral vascular disease 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 pectoris (CMS/HCC) Riley's esophagus with dysplasia Erectile dysfunction due to diseases classified elsewhere Benign prostatic hyperplasia with lower urinary tract symptoms, symptom details unspecified Colon cancer screening Special screening for malignant neoplasms, colon Tubulovillous adenoma of colon Lumbosacral spondylosis without myelopathy Type 2 diabetes mellitus without complication, with long-term current use of insulin- Primary Centrilobular emphysema (CMS/HCC) Type 2 diabetes mellitus with other specified complication Erectile dysfunction due to diseases classified elsewhere Type 2 diabetes mellitus 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 (CMS/HCC) Paroxysmal atrial fibrillation (CMS/HCC) Atrial fibrillation Coronary artery disease 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 angina pectoris (CMS/HCC) Primary hypertension (CMS/HCC) Unspecified essential hypertension PAD (peripheral artery disease) (CMS/HCC) Unspecified peripheral vascular disease Iron deficiency anemia, unspecified iron deficiency anemia type Mixed hyperlipidemia (CMS/HCC) Mixed hyperlipidemia Primary insomnia Persistent disorder of initiating or maintaining sleep Type 2 diabetes mellitus without complication, with long-term current use of insulin documented in this encounter [facility] HealthcareEvaluation note* Diagnosis Type 2 diabetes mellitus without complication, with long-term current use of insulin- Primary Primary hypertension (CMS/HCC) Unspecified essential hypertension Coronary artery disease 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 angina pectoris (CMS/HCC) PAD (peripheral artery disease) (CMS/HCC) Unspecified peripheral vascular disease Iron deficiency anemia, unspecified iron deficiency anemia type Lumbosacral pain Encounter for subsequent annual wellness visit (AWV) in Medicare patient- Primary [facility] (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 of insulin (Z79.4) Peripheral vascular disease, unspecified (I73.9) Peripheral vascular disease, unspecified Mixed hyperlipidemia (CMS/HCC) Mixed hyperlipidemia Iron deficiency anemia, unspecified iron deficiency anemia type Type 2 diabetes mellitus without complication, with long-term current use of insulin COPD, moderate (CMS/HCC) Primary hypertension (CMS/HCC) Unspecified essential hypertension Coronary artery disease 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 angina pectoris (CMS/HCC) PAD (peripheral artery disease) (CMS/HCC) Unspecified peripheral vascular disease Nonrheumatic mitral valve regurgitation Riley's esophagus with dysplasia Benign prostatic hyperplasia with lower urinary tract symptoms, symptom details unspecified Primary hypertension (CMS/HCC)- Primary Unspecified essential hypertension Type 2 diabetes mellitus without complication, with long-term current use of insulin 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 pectoris (CMS/HCC)- Primary Type 2 diabetes mellitus with other specified complication Male erectile dysfunction, unspecified Type 2 diabetes mellitus 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 (CMS/HCC) Acute cough Primary hypertension (CMS/HCC) Unspecified essential hypertension Paroxysmal atrial fibrillation (CMS/HCC) Atrial fibrillation Type 2 diabetes mellitus without complication, with long-term current use of insulin Coronary artery disease 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 angina pectoris (CMS/HCC)- Primary Other thrombophilia Paroxysmal atrial fibrillation (CMS/HCC) Atrial fibrillation Nonrheumatic mitral valve regurgitation Primary hypertension (CMS/HCC) Unspecified essential hypertension 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) Type 2 diabetes mellitus without complication, with long-term current use of insulin- Primary Chronic thoracic back pain, unspecified back pain laterality Primary hypertension (CMS/HCC) Unspecified essential hypertension Type 2 diabetes mellitus without complication, with long-term current use of insulin- Primary Primary hypertension (CMS/HCC) Unspecified essential hypertension PAD (peripheral artery disease) (CMS/HCC) Unspecified peripheral vascular disease 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 pectoris (CMS/HCC) Riley's esophagus with dysplasia Erectile dysfunction due to diseases classified elsewhere Benign prostatic hyperplasia with lower urinary tract symptoms, symptom details unspecified Colon cancer screening Special screening for malignant neoplasms, colon Tubulovillous adenoma of colon Lumbosacral spondylosis without myelopathy Type 2 diabetes mellitus without complication, with long-term current use of insulin- Primary Centrilobular emphysema (CMS/HCC) Type 2 diabetes mellitus with other specified complication Erectile dysfunction due to diseases classified elsewhere Type 2 diabetes mellitus 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 (CMS/HCC) Paroxysmal atrial fibrillation (CMS/HCC) Atrial fibrillation Coronary artery disease 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 angina pectoris (CMS/HCC) Primary hypertension ([facility]/HCC) Unspecified essential hypertension PAD (peripheral artery disease) ([facility]/HCC) Unspecified peripheral vascular disease Iron deficiency anemia, unspecified iron deficiency anemia type Mixed hyperlipidemia (CMS/HCC) Mixed hyperlipidemia Primary insomnia Persistent disorder of initiating or maintaining sleep Encounter for subsequent annual wellness visit (AWV) in Medicare patient- Primary Centrilobular emphysema (CMS/HCC) Paroxysmal atrial fibrillation ([facility]/HCC) Atrial fibrillation Bilateral carotid artery disease, unspecified type ([facility]) Primary hypertension ([facility]) Unspecified essential hypertension Type 2 diabetes mellitus without complication, with long-term current use of insulin Type 2 diabetes mellitus with other specified complication, with long-term current use of insulin Mixed hyperlipidemia ([facility]) Mixed hyperlipidemia Dizziness and giddiness documented in this encounter [facility] HealthcareEvaluation note* Diagnosis Type 2 diabetes mellitus without complication, with long-term current use of insulin (HCC)- Primary Primary hypertension Unspecified essential hypertension Coronary artery disease 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 angina pectoris PAD (peripheral artery disease) Unspecified peripheral vascular disease Iron deficiency anemia, unspecified iron deficiency anemia type Lumbosacral pain Encounter for subsequent annual wellness visit (AWV) in Medicare patient- Primary [facility] (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 of insulin (Z79.4) Peripheral vascular disease, unspecified (I73.9) Peripheral vascular disease, unspecified Mixed hyperlipidemia Mixed hyperlipidemia Iron deficiency anemia, unspecified iron deficiency anemia type Type 2 diabetes mellitus without complication, with long-term current use of insulin (HCC) COPD, moderate (HCC) Primary hypertension Unspecified essential hypertension Coronary artery disease 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 angina pectoris PAD (peripheral artery disease) Unspecified peripheral vascular disease Nonrheumatic mitral valve regurgitation Riley's esophagus with dysplasia Benign prostatic hyperplasia with lower urinary tract symptoms, symptom details unspecified Primary hypertension- Primary Unspecified essential hypertension Type 2 diabetes mellitus without complication, with long-term current use of insulin (HCC) 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 pectoris- Primary Type 2 diabetes mellitus with other specified complication (HCC) Male erectile dysfunction, unspecified Type 2 diabetes mellitus 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 (HCC) Acute cough Primary hypertension Unspecified essential hypertension Paroxysmal atrial fibrillation (HCC) Atrial fibrillation Type 2 diabetes mellitus without complication, with long-term current use of insulin (HCC) Coronary artery disease 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 angina pectoris- Primary Other thrombophilia (HHS-HCC) Paroxysmal atrial fibrillation (HCC) Atrial fibrillation Nonrheumatic mitral valve regurgitation Primary hypertension Unspecified essential hypertension 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) Type 2 diabetes mellitus without complication, with long-term current use of insulin (HCC)- Primary Chronic thoracic back pain, unspecified back pain laterality Primary hypertension Unspecified essential hypertension Type 2 diabetes mellitus without complication, with long-term current use of insulin (HCC)- Primary Primary hypertension Unspecified essential hypertension PAD (peripheral artery disease) Unspecified peripheral vascular disease 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 Erectile dysfunction due to diseases classified elsewhere Benign prostatic hyperplasia with lower urinary tract symptoms, symptom details unspecified Colon cancer screening Special screening for malignant neoplasms, colon Tubulovillous adenoma of colon Lumbosacral spondylosis without myelopathy Type 2 diabetes mellitus without complication, with long-term current use of insulin (HCC)- Primary Centrilobular emphysema (HCC) Type 2 diabetes mellitus with other specified complication (HCC) Erectile dysfunction due to diseases classified elsewhere Type 2 diabetes mellitus 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 (HCC) Paroxysmal atrial fibrillation (HCC) Atrial fibrillation Coronary artery disease 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 angina pectoris Primary hypertension Unspecified essential hypertension PAD (peripheral artery disease) Unspecified peripheral vascular disease Iron deficiency anemia, unspecified iron deficiency anemia type Mixed hyperlipidemia Mixed hyperlipidemia Primary insomnia Persistent disorder of initiating or maintaining sleep Encounter for subsequent annual wellness visit (AWV) in Medicare patient- Primary Centrilobular emphysema (HCC) Paroxysmal atrial fibrillation (HCC) Atrial fibrillation Bilateral carotid artery disease, unspecified type Primary hypertension Unspecified essential hypertension Type 2 diabetes mellitus without complication, with long-term current use of insulin (HCC) Type 2 diabetes mellitus with other specified complication, with long-term current use of insulin (HCC) Mixed hyperlipidemia Mixed hyperlipidemia Dizziness and giddiness Dizziness and giddiness- Primary Pulmonary hypertension, unspecified (HCC) Primary hypertension Unspecified essential hypertension Riley's esophagus with dysplasia Type 2 diabetes mellitus without complication, with long-term current use of insulin (HCC) documented in this encounter [facility] HealthcareEvaluation note* Diagnosis Type 2 diabetes mellitus without complication, with long-term current use of insulin (HCC)- Primary Primary hypertension Unspecified essential hypertension Coronary artery disease 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 angina pectoris PAD (peripheral artery disease) Unspecified peripheral vascular disease Iron deficiency anemia, unspecified iron deficiency anemia type Lumbosacral pain Encounter for subsequent annual wellness visit (AWV) in Medicare patient- Primary [facility] (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 of insulin (Z79.4) Peripheral vascular disease, unspecified (I73.9) Peripheral vascular disease, unspecified Mixed hyperlipidemia Mixed hyperlipidemia Iron deficiency anemia, unspecified iron deficiency anemia type Type 2 diabetes mellitus without complication, with long-term current use of insulin (HCC) COPD, moderate (HCC) Primary hypertension Unspecified essential hypertension Coronary artery disease 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 angina pectoris PAD (peripheral artery disease) Unspecified peripheral vascular disease Nonrheumatic mitral valve regurgitation Riley's esophagus with dysplasia Benign prostatic hyperplasia with lower urinary tract symptoms, symptom details unspecified Primary hypertension- Primary Unspecified essential hypertension Type 2 diabetes mellitus without complication, with long-term current use of insulin (HCC) 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 pectoris- Primary Type 2 diabetes mellitus with other specified complication (HCC) Male erectile dysfunction, unspecified Type 2 diabetes mellitus 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 (HCC) Acute cough Primary hypertension Unspecified essential hypertension Paroxysmal atrial fibrillation (HCC) Atrial fibrillation Type 2 diabetes mellitus without complication, with long-term current use of insulin (HCC) Coronary artery disease 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 angina pectoris- Primary Other thrombophilia (HHS-HCC) Paroxysmal atrial fibrillation (HCC) Atrial fibrillation Nonrheumatic mitral valve regurgitation Primary hypertension Unspecified essential hypertension 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) Type 2 diabetes mellitus without complication, with long-term current use of insulin (HCC)- Primary Chronic thoracic back pain, unspecified back pain laterality Primary hypertension Unspecified essential hypertension Type 2 diabetes mellitus without complication, with long-term current use of insulin (HCC)- Primary Primary hypertension Unspecified essential hypertension PAD (peripheral artery disease) Unspecified peripheral vascular disease 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 Erectile dysfunction due to diseases classified elsewhere Benign prostatic hyperplasia with lower urinary tract symptoms, symptom details unspecified Colon cancer screening Special screening for malignant neoplasms, colon Tubulovillous adenoma of colon Lumbosacral spondylosis without myelopathy Type 2 diabetes mellitus without complication, with long-term current use of insulin (HCC)- Primary Centrilobular emphysema (HCC) Type 2 diabetes mellitus with other specified complication (HCC) Erectile dysfunction due to diseases classified elsewhere Type 2 diabetes mellitus 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 (HCC) Paroxysmal atrial fibrillation (HCC) Atrial fibrillation Coronary artery disease 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 angina pectoris Primary hypertension Unspecified essential hypertension PAD (peripheral artery disease) Unspecified peripheral vascular disease Iron deficiency anemia, unspecified iron deficiency anemia type Mixed hyperlipidemia Mixed hyperlipidemia Primary insomnia Persistent disorder of initiating or maintaining sleep Encounter for subsequent annual wellness visit (AWV) in Medicare patient- Primary Centrilobular emphysema (HCC) Paroxysmal atrial fibrillation (HCC) Atrial fibrillation Bilateral carotid artery disease, unspecified type Primary hypertension Unspecified essential hypertension Type 2 diabetes mellitus without complication, with long-term current use of insulin (HCC) Type 2 diabetes mellitus with other specified complication, with long-term current use of insulin (HCC) Mixed hyperlipidemia Mixed hyperlipidemia Dizziness and giddiness Dizziness and giddiness- Primary Pulmonary hypertension, unspecified (HCC) Primary hypertension Unspecified essential hypertension Riley's esophagus with dysplasia Type 2 diabetes mellitus without complication, with long-term current use of insulin (HCC) PAD (peripheral artery disease)- Primary Unspecified peripheral vascular disease Paroxysmal atrial fibrillation (HCC) Atrial fibrillation documented in this encounter [facility] HealthcareEvaluation note* Diagnosis Type 2 diabetes mellitus without complication, with long-term current use of insulin (HCC)- Primary Primary hypertension Unspecified essential hypertension Coronary artery disease 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 angina pectoris PAD (peripheral artery disease) Unspecified peripheral vascular disease Iron deficiency anemia, unspecified iron deficiency anemia type Lumbosacral pain Encounter for subsequent annual wellness visit (AWV) in 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) Peripheral vascular disease, unspecified (I73.9) Peripheral vascular disease, unspecified Mixed hyperlipidemia Mixed hyperlipidemia Iron deficiency anemia, unspecified iron deficiency anemia type Type 2 diabetes mellitus without complication, with long-term current use of insulin (HCC) COPD, moderate (HCC) Primary hypertension Unspecified essential hypertension Coronary artery disease 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 angina pectoris PAD (peripheral artery disease) Unspecified peripheral vascular disease Nonrheumatic mitral valve regurgitation Riley's esophagus with dysplasia Benign prostatic hyperplasia with lower urinary tract symptoms, symptom details unspecified Primary hypertension- Primary Unspecified essential hypertension Type 2 diabetes mellitus without complication, with long-term current use of insulin (HCC) 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 pectoris- Primary Type 2 diabetes mellitus with other specified complication (HCC) Male erectile dysfunction, unspecified Type 2 diabetes mellitus 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 (HCC) Acute cough Primary hypertension Unspecified essential hypertension Paroxysmal atrial fibrillation (HCC) Atrial fibrillation Type 2 diabetes mellitus without complication, with long-term current use of insulin (HCC) Coronary artery disease 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 angina pectoris- Primary Other thrombophilia (HHS-HCC) Paroxysmal atrial fibrillation (HCC) Atrial fibrillation Nonrheumatic mitral valve regurgitation Primary hypertension Unspecified essential hypertension 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) Type 2 diabetes mellitus without complication, with long-term current use of insulin (HCC)- Primary Chronic thoracic back pain, unspecified back pain laterality Primary hypertension Unspecified essential hypertension Type 2 diabetes mellitus without complication, with long-term current use of insulin (HCC)- Primary Primary hypertension Unspecified essential hypertension PAD (peripheral artery disease) Unspecified peripheral vascular disease 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 Erectile dysfunction due to diseases classified elsewhere Benign prostatic hyperplasia with lower urinary tract symptoms, symptom details unspecified Colon cancer screening Special screening for malignant neoplasms, colon Tubulovillous adenoma of colon Lumbosacral spondylosis without myelopathy Type 2 diabetes mellitus without complication, with long-term current use of insulin (HCC)- Primary Centrilobular emphysema (HCC) Type 2 diabetes mellitus with other specified complication (HCC) Erectile dysfunction due to diseases classified elsewhere Type 2 diabetes mellitus 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 (HCC) Paroxysmal atrial fibrillation (HCC) Atrial fibrillation Coronary artery disease 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 angina pectoris Primary hypertension Unspecified essential hypertension PAD (peripheral artery disease) Unspecified peripheral vascular disease Iron deficiency anemia, unspecified iron deficiency anemia type Mixed hyperlipidemia Mixed hyperlipidemia Primary insomnia Persistent disorder of initiating or maintaining sleep Encounter for subsequent annual wellness visit (AWV) in Medicare patient- Primary Centrilobular emphysema (HCC) Paroxysmal atrial fibrillation (HCC) Atrial fibrillation Bilateral carotid artery disease, unspecified type Primary hypertension Unspecified essential hypertension Type 2 diabetes mellitus without complication, with long-term current use of insulin (HCC) Type 2 diabetes mellitus with other specified complication, with long-term current use of insulin (HCC) Mixed hyperlipidemia Mixed hyperlipidemia Dizziness and giddiness Dizziness and giddiness- Primary Pulmonary hypertension, unspecified (HCC) Primary hypertension Unspecified essential hypertension Riley's esophagus with dysplasia Type 2 diabetes mellitus without complication, with long-term current use of insulin (HCC) Mixed hyperlipidemia- Primary Mixed hyperlipidemia documented in this encounter [facility] Narrative No data available for this section [facility] Hospital Discharge instructions No data available for this section [facility] InstructionsNot on filedocumented in this encounter [facility]Not on filedocumented in this encounter [facility]Not on filedocumented in this encounter [facility]Not on filedocumented in this encounter [facility]ructionsNot on filedocumented in this encounter [facility] System[facility] note No data available for this section [facility] Reason for visit Narrative* Consultation (Routine) - Pending Review Specialty Diagnoses / Procedures Referred By Kendra healy Referred To Contact Cardiac Rehabilitation Diagnoses Stented coronary artery Procedures Ambulatory referral to Cardiac Rehabilitation ([facility]) Natasha Campo MD [address] [facility] [address] [facility] [place] [address] Phone: tel: fax: [facility] [address] [place] [address] Phone: tel:[phone] fax:[phone] Referral ID Status Reason Start Date Expiration Date Visits Requested Visits Authorized [id number] Pending Review Specialty Services Required 12/06/2023 12/05/2024 36 36 [facility] Narrative* Consultation (Routine) - Closed Specialty Diagnoses / Procedures Referred By Contac t Referred To Contact Cardiac Rehabilitation Diagnoses Stented coronary artery Procedures Ambulatory referral to Cardiac Rehabilitation ([facility]) Natasha Campo MD [address] [facility] [address] [place] [address] Phone: tel: fax: [facility] [address] [place] [address] Phone: tel:[phone] fax:[phone] Referral ID Status Reason Start Date Expiration Date V isits Requested Visits Authorized [id number] Closed Specialty Services Required 12/06/2023 12/05/2024 36 36 [facility] for visit Narrative* Consultation (Routine) - Authorized Specialty Diagnoses / Procedures Referred By Contac t Referred To Contact Cardiac Rehabilitation Diagnoses Stented coronary artery Procedures Ambulatory referral to Cardiac Rehabilitation ([facility]) Natasha Campo MD [address] [facility] [address] [place] [address] [facility] Re[facility] Billing [address] [place] [address] Referral ID Status Reason Start Date Expiration Date Visits Requested Visits Authorized [id number] Authorized Specialty Services Required 12/06/2023 12/05/2024 36 36 [facility] for visit Narrative* Consultation (Routine) - Authorized Specialty Diagnoses / Procedures Referred By Contac t Referred To Contact Cardiac Rehabilitation Diagnoses Stented coronary artery Procedures Ambulatory referral to Cardiac Rehabilitation ([facility]) Natasha Campo MD [address] [facility] [address] [place] [address] Phone: tel: fax: [facility] [address] [place] [address] Phone: tel:[phone] fax:[phone] Referral ID Status Reason Start Date Expiration Date Visits Requested Visits Authorized [id number] Authorized Specialty Services Required 12/06/2023 12/05/2024 36 36 [facility] Summary Purpose Family History No Family History Records FoundNo Family History Records Found No data available for this section No Family History Records FoundNo Family History Records FoundNo Family History Records Found No data available for this section No data available for this section No [...] Found Advance Directives No Advanced Directives Records Found Advance Directive Response Recorded Date/ Time Advance Directives No November 24, 2023 10:10am Additional Source Comments (unrecognized sect ion and [...] and content) DATE CREATED AUTHOR 03/08/[address] [facility] DATE CREATED AUTHOR AUTHOR'S ORGANIZ ATION 06/20/[address] [facility] DATE CREATED AUTHOR AUTHOR'S ORGANIZ ATION 03/27/2024 [facility] DATE CREATED AUTHOR AUTHOR'S ORGANIZ ATION 04/10/2024 [facility] DATE CREATED AUTHOR AUTHOR'S ORGANIZ ATION 04/15/2024 [facility] DATE CREATED AUTHOR AUTHOR'S ORGANIZ ATION 07/14/2024 [employer] [facility] DATE CREATED AUTHOR AUTHOR'S ORGANIZ ATION 07/19/2024 [employer] [facility] DATE CREATED AUTHOR AUTHOR'S ORGANIZ ATION 07/22/2024 Carrera Sylvester [facility] DATE CREATED AUTHOR AUTHOR'S ORGANIZ ATION 07/23/2024 Carrera [place] [facility] DATE CREATED AUTHOR AUTHOR'S ORGANIZ ATION 09/28/2024 [facility] DATE CREATED AUTHOR AUTHOR'S ORGANIZ ATION 11/26/2024 [facility] Patient Care team informatio n (unrecognized section and content) Tank Filler Relationship Specialty Start Date End Date Prabhjot Villatoro MD [address] [place] [address] PCP - General Family Medicine 04/06/23 Marisol Boyce NP [address] [place] [address] Nurse Practitioner Family Medicine 03/28/22 Tank Filler Relationship Specialty Start Date End Date Prabhjot Villatoro MD [address] [place] [id number] PCP - General Family Medicine 04/06/23 Marisol Boyce NP [address] [place] [address] Nurse Practitioner Family Medicine 03/28/22 Tank Filler Relationship Specialty Start Date End Date Prabhjot Villatoro MD [address] [place] [address] PCP - General Family Medicine 06/07/23 Marisol Boyce NP [address] [place] [address] Nurse Practitioner Family Medicine 03/28/22 Marisol Boyce NP [address] [place] [address] Nurse Practitioner Family Medicine 06/07/23 Tank Filler Relationship Specialty Start Date End Date Prabhjot Villatoro MD [address] [place] [address] PCP - General Family Medicine 06/07/23 Marisol Boyce NP [address] [place] [address] Nurse Practitioner Family Medicine 03/28/22 Marisol Boyce NP [address] [place] [address] Nurse Practitioner Family Medicine 06/07/23 Tank Filler Relationship Specialty Start Date End Date Prabhjot Villatoro MD [address] [place] [address] PCP - General Family Medicine 06/07/23 Marisol Boyce NP [address] [place] [address] Nurse Practitioner Family Medicine 03/28/22 Marisol Boyce NP [address] [place] [address] Nurse Practitioner Family Medicine 06/07/23 Tank Filler Relationship Specialty Start Date End Date Prabhjot Villatoro MD [address] [place] [address] PCP - General Family Medicine 06/07/23 Marisol Boyce NP [address] [place] [address] Nurse Practitioner Family Medicine 03/28/22 Marisol Boyce NP [address] [place] [address] Nurse Practitioner Family Medicine 06/07/23 Tank Filler Relationship Specialty Start Date End Date Prabhjot Villatoro MD [address] [place] [address] PCP - General Family Medicine 06/07/23 Marisol Boyce NP [address] [place] [address] Nurse Practitioner Family Medicine 03/28/22 Marisol Boyce NP [address] [place] [address] Nurse Practitioner Family Medicine 06/07/23 Tank Filler Relationship Specialty Start Date End Date Prabhjot Villatoro MD [address] [place] [address] PCP - General Family Medicine 06/07/23 Marisol Boyce NP [address] [place] [address] Nurse Practitioner Family Medicine 03/28/22 Marisol Boyce NP [address] [place] [address] Nurse Practitioner Family Medicine 06/07/23 Tank Filler Relationship Specialty Start Date End Date Prabhjot Villatoro MD [address] [place] [address] PCP - General Family Medicine 06/07/23 Marisol Boyce NP [address] [place] [address] Nurse Practitioner Family Medicine 03/28/22 Marisol Boyce NP [address] [place] [address] Nurse Practitioner Family Medicine 06/07/23 Tank Filler Relationship Specialty Start Date End Date Prabhjot Villatoro MD [address] [place] [address] PCP - General Family Medicine 06/07/23 Marisol Boyce NP [address] [place] [address] Nurse Practitioner Family Medicine 03/28/22 Marisol Boyce NP [address] [place] [address] Nurse Practitioner Family Medicine 06/07/23 Tank Filler Relationship Specialty Start Date End Date Prabhjot Villatoro MD [address] [place] [address] PCP - General Family Medicine 06/07/23 Marisol Boyce NP [address] [place] [address] Nurse Practitioner Family Medicine 03/28/22 Marisol Boyce NP [address] [place] [address] Nurse Practitioner Family Medicine 06/07/23 Tank Filler Relationship Specialty Start Date End Date Prabhjot Villatoro MD [address] [place] [address] PCP - General Family Medicine 06/07/23 Marisol Boyce NP [address] [place] [address] Nurse Practitioner Family Medicine 03/28/22 Marisol Boyce NP [address] [place] [address] Nurse Practitioner Family Medicine 06/07/23 Tank Filler Relationship Specialty Start Date End Date Marisol Boyce APRN-MACHINE BOBBIN WINDER PCP - General Nurse Practitioner 10/16/18 Tank Filler Relationship Specialty Start Date End Date Marisol Boyce, GROUNDS SUPERVISOR-MACHINE [employer]OBBIN WINDER PCP - General Nurse Practitioner 10/16/18 Tank Filler Relationship Specialty Start Date End Date Prabhjot Villatoro MD [address] [place] [address] PCP - General Family Medicine 06/07/23 Marisol Boyce NP [address] [place] [phone] Nurse Practitioner Family Medicine 03/28/22 Marisol Boyce NP [address] [place] [address] Nurse Practitioner Family Medicine 06/07/23 Tank Filler Relationship Specialty Start Date End Date Marisol Boyce APRN-MACHINE [employer] PCP - General Nurse Practitioner 10/16/18 Tank Filler Relationship Specialty Start Date End Date Prabhjot Villatoro MD [address] [place] [phone] PCP - General Family Medicine 06/07/23 Marisol Boyce NP [address] [place] [address] Nurse Practitioner Family [facility] 03/28/22 Marisol Boyce NP [address] [place] [phone] Nurse Practitioner Family Medicine 06/07/23 Team Status: Inactive Member Role Status Dawson Mauricio DO Attending Provider Active Start: April 11, 2024 End: April 11, 2024 Tank Filler Relationship Specialty Start Date End Date Marisol Boyce APRN-CNP PCP - General Nurse Practitioner 10/16/18 Tank Filler Relationship Specialty Start Date End Date Marisol Boyce APRN-MACHINE [employer] PCP - General Nurse Practitioner 10/16/18 Tank Filler Relationship Specialty Start Date End Date [facility] - General Nurse Practitioner 10/16/18 Tank Filler Relationship Specialty Start Date End Date [facility] PCP [facility] General Nurse Practitioner 10/16/18 Tank Filler Relationship Specialty Start Date End Date [facility] PCP - General Nurse Practitioner 10/16/18 Tank Filler Relationship Specialty Start Date End Date [facility] PCP - General Nurse Practitioner 10/16/18 Tank Filler Relationship Specialty Start Date End Date [facility] PCP - General Nurse Practitioner 10/16/18 Tank Filler Relationship Specialty Start Date End Date [facility] PCP - General Nurse Practitioner 10/16/18 Tank Filler Relationship Specialty Start Date End Date [facility] PCP - General Nurse Practitioner 10/16/18 Tank Filler Relationship Specialty Start Date End Date [facility] PCP - General Nurse Practitioner 10/16/18 Tank Filler Relationship Specialty Start Date End Date Prabhjot Villatoro MD [address] [place] [phone] PCP - General Family Medicine 06/07/23 Marisol Boyce NP [address] [place] [phone] PCP - ACO Reach 05/04/24 Marisol Boyce NP [address] [place] [phone] Nurse Practitioner Family Medicine 03/28/22 Marisol Boyce NP [address] [place] [address] Nurse Practitioner Family Medicine 06/07/23 Tank Filler Relationship Specialty Start Date End Date Marisol Boyce APRN-MACHINE [employer] PCP - General Nurse Practitioner 10/16/18 Tank Filler Relationship Specialty Start Date End Date Marisol Boyce APRN-MACHINE [employer] PCP - General Nurse Practitioner 10/16/18 Tank Filler Relationship Specialty Start Date End Date Marisol Boyce GROUNDS SUPERVISOR-MACHINE [employer] PCP - General Nurse Practitioner 10/16/18 Tank Filler Relationship Specialty Start Date End Date Marisol Boyce APRN-MACHINE [employer] PCP - General Nurse Practitioner 10/16/18 Tank Filler Relationship Specialty Start Date End Date Marisol Boyce, GROUNDS SUPERVISOR-MACHINE [employer] PCP - General Nurse Practitioner 10/16/18 Tank Filler Relationship Specialty Start Date End Date [facility] P[facility] - General Nurse Practitioner 10/16/18 Tank Filler Relationship Specialty Start Date End Date Marisol Boyce, [facility] PCP - General Nurse Practitioner 10/16/18 Tank Filler Relationship Specialty Start Date End Date Marisol Boyce, [facility] PCP - General Nurse Practitioner 10/16/18 Tank Filler Relationship Specialty Start Date End Date Prabhjot Villatoro MD [address] [place] [phone] PCP - General Family Medicine 06/07/23 Marisol Boyce NP [address] [place] [phone] PCP - ACO Reach 05/04/24 Marisol Boyce NP [address] [place] [address] Nurse Practitioner Family Medicine 03/28/22 Marisol Boyce NP [address] [place] [phone] Nurse Practitioner Family Medicine 06/07/23 Tank Filler Relationship Specialty Start Date End Date Prabhjot Villatoro MD [address] [place] [phone] PCP - General Family Medicine 06/07/23 Marisol Boyce NP [address] [place] [phone] PCP - ACO Reach 05/04/24 Marisol Boyce NP [address] [place] [address] Nurse Practitioner Family Medicine 03/28/22 Marisol Boyce NP [address] [place] [address] Nurse Practitioner Family Medicine 06/07/23 Tank Filler Relationship Specialty Start Date End Date Prabhjot Villatoro MD [address] [place] [phone] PCP - General Family Medicine 06/07/23 Marisol Boyce NP [address] [place] [phone] PCP - ACO Reach 05/04/24 Marisol Boyce NP [address] [place] [phone] Nurse Practitioner Family Medicine 03/28/22 Marisol Boyce NP [address] [place] [address] Nurse Practitioner Family Medicine 06/07/23 Tank Filler Relationship Specialty Start Date End Date Prabhjot Villatoro MD [address] [place] [phone] PCP - General Family Medicine 06/07/23 Marisol Boyce NP [address] [place] [phone] PCP - ACO Reach 05/04/24 Marisol Boyce NP [address] [place] [phone] Nurse Practitioner Family Medicine 03/28/22 Marisol Boyce NP [address] [place] [address] Nurse Practitioner Family Medicine 06/07/23 Tank Filler Relationship Specialty Start Date End Date Prabhjot Villatoro MD [address] [place] [phone] PCP - General Family Medicine 06/07/23 Marisol Boyce NP [address] [place] [phone] PCP - ACO Reach 05/04/24 Marisol Boyce NP [address] [place] [address] Nurse Practitioner Family Medicine 03/28/22 Marisol Boyce NP [address] [place] [address] Nurse Practitioner Family Medicine 06/07/23 Tank Filler Relationship Specialty Start Date End Date Prabhjot Villatoro MD [address] [place] [phone] PCP - General Family Medicine 06/07/23 Marisol Boyce NP [address] [place] [phone] PCP - ACO Reach 05/04/24 Marisol Boyce NP [address] [place] [address] Nurse Practitioner Family Medicine 03/28/22 Marisol Boyce NP [address] [place] [address] Nurse Practitioner Family Medicine 06/07/23 Tank Filler Relationship Specialty Start Date End Date Prabhjot Villatoro MD [address] [place] [phone] PCP - General Family Medicine 06/07/23 Marisol Boyce NP [address] [place] [phone] PCP - ACO Reach 05/04/24 Marisol Boyce NP [address] [place] [phone] Nurse Practitioner Family Medicine 03/28/22 Marisol Boyce NP [address] [place] [address] Nurse Practitioner Family Medicine 06/07/23 Tank Filler Relationship Specialty Start Date End Date Prabhjot Villatoro MD [address] [place] [phone] PCP - General Family Medicine 06/07/23 Marisol Boyce NP [address] [place] [phone] PCP - ACO Reach 05/04/24 Marisol Boyce NP [address] [place] [address] Nurse Practitioner Family Medicine 03/28/22 Marisol Boyce NP [address] [place] [address] Nurse Practitioner Family Medicine 06/07/23 Tank Filler Relationship Specialty Start Date End Date Prabhjot Villatoro MD [address] [place] [phone] PCP - General Family Medicine 06/07/23 Marisol Boyce NP [address] [place] [address] PCP - ACO Reach 05/04/24 Marisol Boyce NP [address] [place] [address] Nurse Practitioner Family Medicine 03/28/22 Marisol Boyce NP [address] [place] [address] Nurse Practitioner Family Medicine 06/07/23 Tank Filler Relationship Specialty Start Date End Date Prabhjot Villatoro MD [address] [place] [phone] PCP - General Family Medicine 06/07/23 Marisol Boyce NP [address] [place] [address] PCP - ACO Reach 05/04/24 Marisol Boyce NP [address] [place] [address] Nurse Practitioner Family Medicine 03/28/22 Marisol Boyce NP [address] [place] [address] Nurse Practitioner Family Medicine 06/07/23 Tank Filler Relationship Specialty Start Date End Date Prabhjot Villatoro MD [address] [place] [phone] PCP - General Family Medicine 06/07/23 Marisol Boyce NP [address] [place] [address] PCP - ACO Reach 05/04/24 Marisol Boyce NP [address] [place] [address] Nurse Practitioner Family Medicine 03/28/22 Marisol Boyce NP [address] [place] [address] Nurse Practitioner Family Medicine 06/07/23 Tank Filler Relationship Specialty Start Date End Date Prabhjot Villatoro MD [address] [place] [address] PCP - General Family Medicine 06/07/23 Marisol Boyce NP [address] [place] [address] PCP - ACO Reach 05/04/24 Marisol Boyce NP [address] [place] [address] Nurse Practitioner Family Medicine 03/28/22 Marisol Boyce NP [address] [place] [address] Nurse Practitioner Family Medicine 06/07/23 Reason for Visit (unrecogniz ed section and content) Reason Comments Med Refill Reason Comments Follow-up Update H&P, EGD/[place] n scheduled 04/11/24 at [facility] Reason Comments Colon Cancer Screening DUE FOR 5 YEAR RE CALL, LAST COLON 10-26-18 Specialty Diagnoses / Procedures Referred By Kendra healy Referred To Contact General Surgery Diagnoses Colon cancer screening Tubulovillous adenoma of colon Procedures CA OFFICE OUTPATIENT VISIT 60-74 MINS HIGH MDM [id number] (SNOMED CT) - AMB REFERRAL TO GENERAL SURGERY Marisol Boyce, GROUNDS SUPERVISOR-MACHINE [employer]BIN WINDER [address] [place] [address] Phone: tel: fax: Sabino Mauricio DO [facility] [place] [address] Phone: tel: fax: Referral ID Status Reason Start Date Expiration Date Visits Re quested Visits Authorized [id number] Closed 02/15/2024 08/13/2024 1 1 Reason Comments Medicare Annual Wellness Visit Initial Reason Comments Diabetes Reason Onset Date Comments Med Refill 10/24/2024 Goals (unrecognized section and content) Goals may be documented in a n alternate section FOR RECORDS PERTAINING TO PATIENTS WHO ARE [...] BE BASED ON THE PRIMARY CLINICAL RECORDS. [employer] provides no warranty or guarantee of the accuracy or completeness of information in this document.
--- NOTE | 2024-11-27 11:31 | ECG_ITS ---
[facility] Test Date: 2024-11-27 Pat Name: KIMMY MCARTHUR Department: Room: - Gender: Male Oven Tender: : 1945 Requested By: [id number] Order Number: [id number] Reading MD: JING CATRER Measurements Intervals Carey Rate: 57 P: 73 NC: 132 QRS: 82 QRSD: 106 T: 270 QT: 368 QTc: 363 Interpretive Statements [address] T wave abnormality possible inferior ischemia 9150 abnormal ECG Compared to ECG 09/30/2023 10:28:50 Short NC interval no longer present ST (T wave) deviation still present Electronically Signed On 11-28-2024 13:53:32 EDT by JING CARTER
--- NOTE | 2024-11-27 11:38 | ED.GENADUL1 ---
HPI HPI - General Adult General Chief complaint: Chest Pain Stated complaint: WEAKNESS SOB CHEST PAIN Time Seen by Provider: 11/27/24 11:14 Source: patient Limitations: no limitations History of Present Illness HPI narrative: Patient is a 79-year-old male presenting to the emergency department for 3-week history of multiple complaints. The patient states that progressively over the last few weeks he has been becoming more weak. He states when he stands up, feels like he has no energy and his legs give out. He also has been fatigued and sleeping more often than usual. He states that his feet have become swollen over the last couple weeks as well. Additionally, he feels lightheaded, dizzy, and somewhat short of breath when he exerts himself. States he has some mild chest discomfort over the last few days as well. He denies any fevers or chills. No infectious-like symptoms or URI symptoms. No abdominal pain, nausea, or vomiting. States he takes all of his medications as prescribed without any missed doses. He is on Xarelto and ambulatory for atrial fibrillation. States he had multiple coronary stents placed in the past as well. Additionally, patient states he had a colonoscopy earlier this year which was normal. He denies any melena or hematochezia or coffee-ground emesis. Related Data Home Medications ?Medication ?Instructions ?Recorded ?Confirmed aspirin 81 mg capsule 81 mg PO BEDTIME 09/30/23 11/27/24 blood sugar diagnostic ([facility] 09/30/23 09/30/23 Verio test strips) dapagliflozin propanediol 10 mg 10 mg PO DAILY 09/30/23 11/27/24 tablet (Farxiga) tamsulosin 0.4 mg capsule 0.4 mg PO BEDTIME 09/30/23 11/27/24 amiodarone 200 mg tablet 200 mg PO DAILY 04/04/24 11/27/24 apixaban 5 mg tablet (Eliquis) 5 mg PO Q12H 04/04/24 04/11/24 atorvastatin 80 mg tablet 80 mg PO BEDTIME 04/04/24 11/27/24 carvedilol 3.125 mg tablet 3.125 mg PO Q12H 04/04/24 11/27/24 ezetimibe 10 mg tablet 10 mg PO BEDTIME 04/04/24 11/27/24 lisinopril 5 mg tablet 5 mg PO DAILY 04/04/24 11/27/24 metformin 500 mg tablet 500 mg PO BID 04/04/24 11/27/24 insulin glargine-yfgn 100 unit/mL 30 unit subcut BEDTIME 11/27/24 11/27/24 (3 mL) subcutaneous pen (Semglee (insulin glargine-yfgn) Pen) omeprazole 40 mg capsule,delayed 40 mg PO DAILY 11/27/24 11/27/24 release rivaroxaban 20 mg tablet 20 mg PO QPM 11/27/24 11/27/24 Allergies Allergy/AdvReac Type Severity Reaction Status Date / Time No Known Drug Allergies Allergy Verified 11/27/24 11:16 Opioid HPI Opioid Management Most Recent Opioid Data: Last Pain Scale 8 Today, 11:16 Review of Systems ROS Status of ROS 10 or more systems reviewed and unremarkable except as noted in history and below [facility] Medical History (Updated 11/27/24 @ 13:09 by Clem Daniels DO) COVID-19 ?U07.1 - COVID-19 (ICD-10) Back pain ?M54.9 - Dorsalgia, unspecified (ICD-10) Arthritis ?M19.90 - Unspecified osteoarthritis, unspecified site (ICD-10) Anemia ?D64.9 - Anemia, unspecified (ICD-10) Sleep apnea ?G47.30 - Sleep apnea, unspecified (ICD-10) High cholesterol ?E78.00 - Pure hypercholesterolemia, unspecified (ICD-10) Myocardial infarction ?I21.9 - Acute myocardial infarction, unspecified (ICD-10) Barretts esophagus ?K22.70 - Palmer's esophagus without dysplasia (ICD-10) Colon polyp ?K63.5 - Polyp of colon (ICD-10) COPD (chronic obstructive pulmonary disease) ?J44.9 - Chronic obstructive pulmonary disease, unspecified (ICD-10) Mitral valve regurgitation ?I34.0 - Nonrheumatic mitral (valve) insufficiency (ICD-10) Chronic heart failure ?I50.9 - Heart failure, unspecified (ICD-10) Coronary atherosclerosis ?I25.10 - Atherosclerotic heart disease of elim ira coronary artery without angina pectoris (ICD-10) Peripheral artery disease ?I73.9 - Peripheral vascular disease, unspecified (ICD-10) Hypertension ?I10 - Essential (primary) hypertension (ICD-10) 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 - Endocarditis, valve unspecified (ICD-10) Diabetes ?E11.9 - Type 2 diabetes mellitus without complications (ICD-10) Atrial fibrillation ?I48.91 - Unspecified atrial fibrillation (ICD-10) Fatigue ?R53.83 - Other fatigue (ICD-10) Non-ST elevated myocardial infarction (non-STEMI) ?I21.4 - Non-ST elevation (NSTEMI) myocardial infarction (ICD-10) CAD (coronary artery disease) ?I25.10 - Atherosclerotic heart disease of elim ira coronary artery without angina pectoris (ICD-10) Surgical History (Updated 04/11/24 @ 10:21 by Kelly Mcnulty) History of esophagogastroduodenoscopy (EGD) ?Z98.890 - Other specified postprocedural states (ICD-10) History of colonoscopy ?Z98.890 - Other specified postprocedural states (ICD-10) H/O carotid endarterectomy ?Z98.890 - Other specified postprocedural states (ICD-10) H/O vascular surgery ?Z98.890 - Other specified postprocedural states (ICD-10) History of cardiac catheterization ?Z98.890 - Other specified postprocedural states (ICD-10) H/O shoulder surgery ?Z98.890 - Other specified postprocedural states (ICD-10) History of cholecystectomy ?Z90.49 - Acquired absence of other specified parts of digestive tract (ICD-10) S/P arterial stent ?Z95.9 - Presence of cardiac and vascular implant and graft, unspecified (ICD-10) Family History (Updated 04/04/24 @ 13:52 by Merissa Altamirano NP) Other Family history of diabetes mellitus Family history of heart disease Family history of lung cancer Social History (Updated 04/04/24 @ 13:41 by Merissa Altamirano NP) Within the past year, how often did you have a drink containing alcohol: monthly or less Smoking status: Current some day smoker Non-prescribed substance use: denies use Highest level of school completed/degree received: Associate degree: occupational, technical, vocational program Little interest or pleasure in doing things: not at all Feeling down, depressed, or hopeless: not at all Exam Narrative Exam Narrative: CONSTITUTIONAL: Patient appears fatigued, but nontoxic and mentating appropriately. Answering questions and following commands. SKIN: Was warm and dry, looks generally pale. EYES: Mild conjunctival pal.yoel EARS, NOSE, THROAT: No JVD RESPIRATORY: Clear to auscultation bilaterally, no wheezes, crackles, or stridor, no use of accessory muscles CARDIOVASCULAR: Normal rate and regular rhythm. There is no S3, S4, murmur, rub. Radial pulses are 2+ and symmetrical. GASTROINTESTINAL: Abdomen was soft, non-tender, and non-distended. There is no guarding or rebound tenderness MUSCULOSKELETAL: The feet are mildly edematous but no significant lower extremity edema, erythema, or tenderness. NEUROLOGIC: Patient is awake and alert. Equal strength in all extremities. Facies were symmetrical. Constitutional Vital Signs, click to edit/add: Last Vital Signs Temp 97.6 F 11/27/24 11:16 Pulse 52 L 11/27/24 11:16 Resp 15 11/27/24 11:16 BP 123/49 11/27/24 11:41 Pulse Ox 98 11/27/24 11:33 O2 Del Method Room Air 11/27/24 11:33 Course Vital Signs Vital signs: Vital Signs Temperature 97.6 F 11/27/24 11:16 Pulse Rate 52 L 11/27/24 11:16 Respiratory Rate 15 11/27/24 11:16 Blood Pressure 100/48 L 11/27/24 11:16 Pulse Oximetry 98 11/27/24 11:16 Oxygen Delivery Method Room Air 11/27/24 11:16 Temperature 97.6 F 11/27/24 11:16 Pulse Rate 52 L 11/27/24 11:16 Respiratory Rate 15 11/27/24 11:16 Blood Pressure 123/49 11/27/24 11:41 Pulse Oximetry 98 11/27/24 11:33 Oxygen Delivery Method Room Air 11/27/24 11:33 Medical Decision Making MDM Narrative Medical decision making narrative: Patient is a 79-year-old male, history significant for atrial fibrillation and CAD, presenting to the emergency department with a 3-week history of generalized fatigue, weakness, shortness of breath, and chest pain. Vital signs on arrival are within acceptable limits, he has a somewhat soft blood pressure to 100/48. Orthostatic vital signs were negative, but he did feel dizzy when he stood up. Examination as noted above, however was generally unremarkable other than looking pale. POCUS bedside ultrasound of the heart and lungs were unremarkable. His ejection fraction appears normal, no pericardial effusion, no RV dilation, and no B-lines throughout the lung palmer bilaterally. Differential diagnosis includes ACS, arrhythmia, symptomatic anemia, underlying infection such as UTI/pneumonia, CHF, or other electrolyte/metabolic derangement. IV was established and laboratory studies were obtained. 12 Lead EKG: Sinus bradycardia at a rate of 57 bpm. Normal axis. There are T wave inversions in the inferior leads II, III, aVF that are unchanged compared to prior EKGs. No ST segment elevations. QRS, MS, and QTc interval within normal limits. Unchanged compared to prior EKG from 09/30/2023. Final impression: sinus bradycardia without evidence of acute myocardial ischemia. Laboratory studies were significant for normocytic anemia, which is new compared to laboratory studies from the last few years. Troponin and BNP negative. No other significant electrolyte or metabolic strain. He is hyperglycemic without anion gap acidosis. No evidence of acute kidney injury. Mild transaminitis, may be related to amiodarone use. Fecal occult blood test negative. Chest x-ray independently reviewed/interpreted by myself demonstrated no acute cardiopulmonary process. Given that the patient is newly anemic and symptomatic because of it, I do believe he warrants admission to the hospital for further workup. Unclear as to the exact etiology behind the patient's anemia. States he had a normal colonoscopy earlier this year and his fecal occult blood test is negative, making a GI source of lower likelihood. Could possibly be related to iron deficiency, though his MCV is normal. I did discuss the patient with hospitalist, Dr. Carbajal, who accepted the patient to his service. FINAL IMPRESSION: #Acute symptomatic anemia DISPOSITION: Admitted to the hospital CONDITION: Fair Medical Records Medical records reviewed: Yes I reviewed the patient's medical records Lab Data Lab results reviewed: Yes I reviewed the patient's lab results Labs: Lab Results 11/27/24 11/27/24 Range/Units 11:27 12:17 WBC 5.7 (4.0-11.0) 10^3/uL RBC 2.83 L (4.70-6.10) 10^6/uL Hgb 7.1 L (14.0-18.0) g/dL Hct 24.2 L (42.0-54.0) % MCV 85.5 (80.0-94.0) fL MCH 25.1 L (25.9-34.0) pg MCHC 29.3 L (29.9-35.2) g/dL RDW 17.8 H (11.0-15.0) % Plt Count 178 (150-450) 10^3/uL MPV 10.9 (9.5-13.5) fL Neut % (Auto) 61.3 (43.0-75.0) % Lymph % (Auto) 26.7 (20.5-60.0) % Sully % (Auto) 7.8 (1.7-12.0) % Eos % (Auto) 3.0 (0.9-7.0) % Baso % (Auto) 0.9 (0.2-2.0) % Neut # (Auto) 3.5 (1.4-6.5) 10^3/uL Lymph # (Auto) 1.5 (1.2-3.8) 10^3/uL Sully # (Auto) 0.5 (0.3-0.8) 10^3/uL Eos # (Auto) 0.2 (0.0-0.7) 10^3/uL Baso # (Auto) 0.1 (0.0-0.1) 10^3/uL Abs Immat Gran (auto) 0.02 (0.00-0.03) 10^3/uL Imm/Tot Granulo (auto) 0.3 (0.0-0.5) % Sodium 142 (136-145) mmol/L Potassium 4.2 (3.5-5.1) mmol/L Chloride 106 (98-107) mmol/L Carbon Dioxide 25.8 (21.0-32.0) mmol/L Anion Gap 14.4 BUN 30.0 H (7.0-18.0) mg/dL Creatinine 1.18 (0.70-1.30) mg/dL Est GFR ( Amer) >60 (>=60 mL/min/1.73m^2) Est GFR (Non-Af Amer) 60 (>=60 mL/min/1.73m^2) BUN/Creatinine Ratio 25.4 Glucose 310 H (74-106) mg/dL Calcium 8.5 (8.5-10.1) mg/dL Magnesium 2.2 (1.8-2.4) mg/dL Total Bilirubin 0.7 (0.2-1.0) mg/dL AST 72 H (15-37) U/L ALT 173 H (16-63) U/L Alkaline Phosphatase 108 (46-116) U/L Troponin I High Sens 14.7 (4.0-76.1) pg/mL NT-Pro-B Natriuret Pep 823.0 (<=1800.0) pg/mL Total Protein 6.2 L (6.4-8.2) g/dL Albumin 3.0 L (3.4-5.0) g/dL Globulin 3.2 g/dL Albumin/Globulin Ratio 0.9 Stool Occult Blood Negative Imaging Data Chest x-ray: Attestation: I personally reviewed and interpreted this imaging study as follows: Radiologist's impression: ITS Impressions Chest X-Ray 11/27/24 11:50 IMPRESSION: NO ACUTE CARDIOPULMONARY ABNORMALITY. Impression dictated by: Lizz Queen M.D. 11/27/2024 11:53 AM Dictation Location: [place] [address] Electronically authenticated by: [id number] Y Date: 11/27/2024 11:53 ECG Data Attestation: I personally reviewed and interpreted this ECG as follows: Discharge Plan Discharge Chief Complaint: Chest Pain Clinical Impression: Symptomatic anemia Patient Disposition: Admitted As Inpatient Time of Disposition Decision: 13:09 Condition: Fair
[2024-11-27 11:39] LABS: Hematocrit 24.2 % (42.0-54.0); Hemoglobin 7.1 g/dL (14.0-18.0); Immature Granulocytes Abs Auto 0.02 10^3/uL (0.00-0.03); Immature Granulocytes Pct Auto 0.3 % (0.0-0.5); Lymphocytes Absolute Auto 1.5 10^3/uL (1.2-3.8); Mean Corpuscular HGB Conc 29.3 g/dL (29.9-35.2); Mean Corpuscular Hemoglobin 25.1 pg (25.9-34.0); Mean Corpuscular Volume 85.5 fL (80.0-94.0); Platelet Count 178 10^3/uL (150-450); Red Blood Count 2.83 10^6/uL (4.70-6.10); White Blood Count 5.7 10^3/uL (4.0-11.0)
--- NOTE | 2024-11-27 11:50 | XR_ITS ---
The [address] [address] Patient Name: KIMMY MCARTHUR MRN: [id number] date: 1945 Sex: M Assigned Patient Location: ER Current Patient Location: ER Accession/Order Number: [id number] Exam Date: 11/27/2024 11:42 Report Date: 11/27/2024 11:53 At the request of: BUFFY VALDES DO Procedure: XR chest 2V PA AND LATERAL CHEST: CLINICAL HISTORY: Shortness of breath, chest pressure and dizziness. Prior tobacco use. COMPARISON: 09/30/2023 There is slight hyperinflation. There is no focal parenchymal consolidation, effusion or pneumothorax. The cardiac, hilar and mediastinal silhouettes are within normal limits. Coronary artery stents are seen. There is no vascular congestion. The visualized bony thorax is intact. Mild endplate spurring is present at the spine. XR/XR chest 2V IMPRESSION: NO ACUTE CARDIOPULMONARY ABNORMALITY. Impression dictated by: Lizz Queen M.D. 11/27/2024 11:53 AM Dictation Location: [facility] [address] Electronically authenticated by: [id number] Date: 11/27/2024 11:53
[2024-11-27 11:55] LABS: Alanine Aminotransferase 173 U/L (16-63); Albumin Globulin Ratio 0.9; Albumin Level 3.0 g/dL (3.4-5.0); Alkaline Phosphatase 108 U/L (46-116); Anion Gap 14.4; Aspartate Amino Transferase 72 U/L (15-37); Blood Urea Nitrogen 30.0 mg/dL (7.0-18.0); Calcium 8.5 mg/dL (8.5-10.1); Carbon Dioxide 25.8 mmol/L (21.0-32.0); Chloride 106 mmol/L (98-107); Estimated GFR (African America >60 (>=60 mL/min/1.73m^2); Estimated GFR (Non-African Ame 60 (>=60 mL/min/1.73m^2); Globulin 3.2 g/dL; Glucose 310 mg/dL (74-106); Potassium 4.2 mmol/L (3.5-5.1); Sodium 142 mmol/L (136-145); Total Protein 6.2 g/dL (6.4-8.2)
[2024-11-27 12:02] LABS: Magnesium 2.2 mg/dL (1.8-2.4); NT Pro B Type Natriuretic Pept 823.0 pg/mL (<=1800.0)
[2024-11-27 14:06] LABS: Reticulocyte Pct Auto 2.53 % (0.60-3.10)
--- OUTSIDE RECORDS SUMMARY | 2024-11-27 14:16 | XMS_ITS | CCD ---
Author Organization [facility] Care Team Providers Care Rooms Director Name Role Phone MARISOL BOYCE Primary Care Physician Unavaila ble MEDARDOHHOLTu, CRIMPING PRESS OPERATOR MARISOL Admitting Unavailable AICHHOLZ, CRIMPING PRESS OPERATOR MARISOL Attending Unavailable AICHHOLZ, CRIMPING PRESS OPERATOR MARISOL Primary Care Unavailable AICHHOLZ, CRIMPING PRESS OPERATOR MARISOL Consulting Unavailable AICHHOLZ, CRIMPING PRESS OPERATOR MARISOL Admitting Unavailable AICHHOLZ, CRIMPING PRESS OPERATOR MARISOL Attending Unavailable AICHHOLZ, CRIMPING PRESS OPERATOR MARISOL Primary Care Unavailable AICHHOLZ, CRIMPING PRESS OPERATOR MARISOL Consulting Unavailable DR SANJAY REECE Consulting Unavailable ROSEANNA, MARCO Admitting Unavailable ROSEANNA, MARCO Attending Unavailable AICHHOLZ, CRIMPING PRESS OPERATOR MARISOL Primary Care Unavailable ROSEANNA, MARCO Consulting Unavailable AICHHOLZ, CRIMPING PRESS OPERATOR MARISOL Admitting Unavailable AICHHOLZ, CRIMPING PRESS OPERATOR MARISOL Attending Unavailable AICHHOLZ, CRIMPING PRESS OPERATOR MARISOL Primary Care Unavailable AICHHOLZ, CRIMPING PRESS OPERATOR MARISOL Consulting Unavailable FLOR, DWAIN Admitting Unavailable FLOR, DWAIN Attending Unavailable AICHHOLZ, CRIMPING PRESS OPERATOR MARISOL Primary Care Unavailable FLOR, DWAIN Consulting Unavailable Aichholz GUEST RELATIONS OFFICER, Marisol Unavailable Prabhjot Villatoro MD Primary Care Provider MARISOL BOYCE Primary Care Physician [phone] Aicmirian GUEST RELATIONS OFFICER, Marisol Unavailable Prabhjot Villatoro MD Primary Care Provider [phone] Aichholtu GUEST RELATIONS OFFICER, Marisol Unavailable Carli TIMBER FALLER-Marisol GASCA Primary Care Provider YAMILEX ARMSTRONG Referring [...] Unavailable ELTAHAWY, EHAB A Referring Unavailable MEDARDOHSINCERE, MARIOSL J Primary Care Unavailable MEDARDOHMARISOL POST J [...] Attending Unavailable Sabino Mauricio Admitting Unavailable Aichholz GUEST RELATIONS OFFICER, Marisol Unavailable Deja Perez Attending Unavailable MARISOL [...] Drug Class(es) Dates Sig (Normalized) Sig (Original) [id number] 200 actuat albuterol 0.09 mg/actuat metered dose inhaler (20 sources) beta2-Adrenergic Agonist Start: 07-01-2022 take 2 puff(s) by mouth every six hours as needed for wheezing albuterol (PROVENTIL HFA;VENTOLIN HFA) 90 mcg/actuation inhaler Indications: COPD, moderate ([facility]) INHALE 2 PUFFS BY MOUTH EVERY 6 [...] Status: Ordered Repeat number: 1 Continuous Glucose Electronic Calibration Technician (Dexcom G7 Electronic Calibration Technician) device (8 sources) Start: 10-20-2023 End: 01-28-2024 Continuous Glucose Electronic Calibration Technician (Dexcom G7 Electronic Calibration Technician) device Indications: Type 2 diabetes mellitus without complication, with long-term current use of insulin ([facility]) 1 each Daily 1 each 1 10/20/2023 01/28/2024 Active Continuous Glucose Sensor (Dexcom G7 Sensor) misc (8 sources) Start: 10-20-2023 End: 01-18-2024 Continuous Glucose Sensor (Dexcom G7 Sensor) misc Indications: Type 2 diabetes mellitus without complication, with long-term current use of insulin ([facility]) 1 each Daily 12 each 4 10/20/2023 [...] SUGAR TID DIRECTED 04/20/2019 Active peg 3350-sod sulf,joxl-khk-vxh 178.7-7.3-0.5 gram recon soln (1 source) Start: 03-05-2024 End: 03-06-2024 peg 3350-sod sulf,yzva-zkg-tvj 178.7-7.3-0.5 gram recon soln Indications: Encounter for [...] THE SKIN EVERY DAY 04/04/2024 Active sennosides, halfway 8.6 mg oral tablet (15 sources) Start: [...] Daily, # 90 cap(s), Refills(s) 3, Pharmacy: [id number], 77.8, kg, 06/18/22 9:54:00 EDT, Weight Dosing Start Date: 06/18/22 Status: Ordered Quantity: 90.0 Unit: cap(s) Repeat number: 4 take 1 capsule by mo [facility] every twenty-four hours [...] hrs., # 10 tab(s), Refills(s) 5, [facility]: [id number], 182, cm, 07/11/23 14:01:00 EDT, Height/Length Dosing, [...] Long-term current use of drug therapy; Translations: [intermediate card tender (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 of antithrombotics/anti platelets] Onset: 06-18-2022 [...] Resolved: 08-15-2024 06-07-2023 Other aftercare (1 source) custodial (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 of insulin; Translations: [intermediate card tender (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 of insulin] Onset: 11-29-2023 Episodic [...] Range Facility Orders Onlyon 11-21-2024 Orders Only [id number] Kimmy Mcarthur 1945 M Date Provider Department Center 11/21/2024 [id number], HISTORICAL ALEX Roland Family History Problem Relation Age of Onset Cancer Father Diabetes Father Family Status - Relation Status Age at Father [facility] Office Visiton 10-09-2024 Follow-up visit [id number] Kimmy Mcarthur 1945 M Date Provider Department Center 10/09/2024 [id number], EHAB CARD [facility] Family History Problem Relation Age of Onset Cancer Father Diabetes Father Family Status - Relation Status Age at Father Level of Service:99881 [place] OFFICE/OUTPATIENT ESTABLISHED MOD MDM 30 MIN [facility] 36on 08-16-2024 36 Pt informed they smiley l call sleep study place as they never followed up w sleep study, they will stop amlodipine [facility] Ambulatory Visit Summaryon 0 07-18-2024 Ambulatory [...] out (more content not included)... Normal [facility] Urology Office/Clinic Noteon 07-18-2024 Urology [...] 200 mg (more content not included)... Normal [facility] Comment on above: Result Comment: Elec tronically Signed By: Chris QUINTANA, Deja Henry\.br\Date and Time Signed: 07/18/24 09:19 EDT\.br\Electronically Co-Signed By: Amalia Herring.br\Date and Time Co-Signed: 07/18/24 09:13 EDT CBC w/ Auto Diffon 5 Basophils/100 WBC (Bld) 0.8 % Normal 0.0-2.0 [facility] Comment on above: Performed By: #### 2 [id number] #### [facility] [address] [place] [address] Erythrocyte distribution width (RBC) [Ratio] 15.6 % High 10.9-14.2 [facility] Comment on above: Performed By: #### 2 [id number] #### [facility] [address] [place] [address] Hematocrit (Bld) [Volume fraction] 32.5 % Low 37.7-49.0 [facility] Comment on above: Performed By: #### 2 [id number] #### [facility] [address] [place] [address] Lymphocytes/100 WBC (Bld) 22.2 % Normal 14.0-50.0 [facility] Comment on above: Performed By: #### 2 [id number] #### [facility] [address] [place] [address] Neutrophils/100 WBC (Bld) 65.2 % Normal 36.0-75.0 [facility] Comment on above: Performed By: #### 2 [id number] #### [facility] [address] [place] [address] Platelet mean volume (Bld) [Entitic vol] 8.3 fL Normal 6.4-10.8 [facility] Comment on above: Performed By: #### 2 [id number] #### [facility] [address] [place] [address] Basophils/Leukocytes Auto (Bld) [Pure # fraction] 0.0 E9/L Normal 0.0-0.2 [facility] Comment on above: Performed By: #### 2 [id number] #### [facility] [address] [place] [address] Eosinophils (Bld) [#/Vol] 0.2 E9/L Normal 0.0-0.5 [facility] Comment on above: Performed By: #### 2 [id number] #### [facility] [address] [place] [address] Eosinophils/100 WBC (Bld) 3.5 % Normal 0.0-8.0 [facility] Comment on above: Performed By: #### 2 [id number] #### [facility] [address] [place] [address] Hemoglobin (Bld) [Mass/Vol] 11.1 g/dL Low 13.5-17.5 [facility] Comment on above: Performed By: #### 2 [id number] #### [facility] [address] [place] [address] Lymphocytes (Bld) [#/Vol] 1.3 E9/L Normal 1.0-4.0 [facility] Comment on above: Performed By: #### 2 [id number] #### [facility] [address] [place] [address] MCH (RBC) [Entitic mass] 30.5 pg Normal 27.0-34.0 [facility] Comment on above: Performed By: #### 2 [id number] #### [facility] [address] [place] [address] MCHC (RBC) [Mass/Vol] 34.1 g/dL Normal 31.4-36.0 [facility] Comment on above: Performed By: #### 2 514115 #### [facility] [address] [place] [address] MCV (RBC) [Entitic vol] 89.5 fL Normal 80.0-100.0 [facility] Comment on above: Performed By: #### 2 [id number] #### [facility] [address] [place] [address] Monocytes (Bld) [#/Vol] 0.5 E9/L Normal 0.2-1.0 [facility] Comment on above: Performed By: #### 2 [id number] #### [facility] [address] [place] [address] Neutrophils (Bld) [#/Vol] 3.8 E9/L Normal 2.0-7.5 [facility] Comment on above: Performed By: #### 2 068721 #### [facility] [address] [place] [address] Platelet 203.0 E9/L Normal 150.0-500.0 [facility] Comment on above: Performed By: #### 2 384852 #### [facility] [address] [place] [address] RBC (Bld) [#/Vol] 3.6 E12/L Low 4.3-5.9 [facility] Comment on above: Performed By: #### 2 825814 #### [facility] [address] [place] [address] WBC corrected for nucl RBC Auto (Bld) [#/Vol] 5.8 E9/L Normal 4.0-11.[address] [facility] Comment on above: Performed By: #### 2 950796 #### [facility] [address] [place] [address] CHEMISTRYOrdered By: SYSTEM SYSTEM on 07-11-2024 Albumin [...] methods and specificity. Values obtained with different desk operator's assays cannot be used interchangeably. The methodology used to obtain this result was chemiluminescence using [employer] [place]'s Access Hybritech PSA reagent and Access Hybritech [...] (Bld) [Mass fraction] 6.3 % High <=5.9% [facility] ChemAutoSS CMPon 07-11-2024 Albumin [Mass/Vol] 4.1 g/dL Normal 3.3-5.0 [facility] Comment on above: Performed By: #### 2 [id number] #### [facility] [address] [place] [address] Albumin/Globulin (S) [Mass conc ratio] 1.8 Normal 1.1-2.2 [facility] Comment on above: Performed By: #### 2 678225 #### [facility] [address] [place] [address] ALP [Catalytic activity/Vol] 73 Int._Unit/L Normal 21-98 [facility] Comment on above: Performed By: #### 2 [id number] #### [facility] [address] [place] [address] ALT No additional P-5'-P [Catalytic activity/Vol] 16 Int._Unit/L Normal 6-46 [facility] Comment on above: Performed By: #### 2 527654 #### [facility] [address] [place] [address] Anion gap [Moles/Vol] 12 mmol/L Normal 6-16 [facility] Comment on above: Performed By: #### 2 146394 #### [facility] [address] [place] [address] AST [Catalytic activity/Vol] 15 Int._Unit/L Normal 5-43 [facility] Comment on above: Performed By: #### 2 166766 #### [facility] [address] [place] [address] Bilirubin [Mass/Vol] 0.9 mg/dL Normal 0.0-1.1 [facility] Comment on above: Performed By: #### 2 473912 #### [facility] [address] [place] [address] Calcium [Mass/Vol] 9.2 mg/dL Normal 8.9-11.1 [facility] Comment on above: Performed By: #### 2 648131 #### [facility] [address] [place] [address] Chloride [Moles/Vol] 106 mmol/L Normal 101-111 [facility] Comment on above: Performed By: #### 2 379278 #### [facility] [address] [place] [address] CO2 [Moles/Vol] 24 mmol/L Normal 21-[address] [facility] Comment on above: Performed By: #### 2 675801 #### [facility] [address] [place] [address] Creatinine [Mass/Vol] 0.9 mg/dL Normal 0.5-1.3 [facility] Comment on above: Performed By: #### 2 605331 #### [facility] [address] [place] [address] Globulin (S) [Mass/Vol] 2.3 g/dL Normal 1.4-4.0 [facility] Comment on above: Performed By: #### 2 829599 #### [facility] [address] [place] [address] Glucose [Mass/Vol] 119 mg/dL Normal 55-199 [facility] Comment on above: Performed By: #### 2 091656 #### [facility] [address] [place] [address] Potassium [Moles/Vol] 4.0 mmol/L Normal 3.5-5.3 [facility] Comment on above: Performed By: #### 2 734948 #### [facility] [address] [place] [address] Protein [Mass/Vol] 6.4 g/dL Normal 6.0-7.8 [facility] Comment on above: Performed By: #### 2 713995 #### [facility] [address] [place] [address] Sodium [Moles/Vol] 138 mmol/L Normal 135-145 [facility] Comment on above: Performed By: #### 2 611524 #### [facility] [address] [place] [address] Urea nitrogen [Mass/Vol] 28 mg/dL High 5-21 [facility] Comment on above: Performed By: #### 2 654816 #### [facility] [address] [place] [address] Urea nitrogen/Creatinine [Mass ratio] 31 No Units High 10-20 [facility] Comment on above: Performed By: #### 2 178759 #### [facility] [address] [place] [address] [facility] CBC W/ AUTO DIFFon 06-26 EOSINOPHILS/100 LEUKOCYTES:NFR:PT:BLD: QN:AUTOMATED COUNT 3.5 % 0.0 - 8.0 % [facility] EOSINOPHILS:NCNC:PT:BL D:QN: 0.2 [facility] BASOPHILS/LEUKOCYTES:N FR.DF:PT:BLD:QN:AUTOMA BETHEL COUNT 0 [facility] ERYTHROCYTE MEAN CORPUSCULAR HEMOGLOBIN CONCENTRATION:MCNC:PT: RBC:QN 34.1 [facility] ERYTHROCYTE MEAN CORPUSCULAR HEMOGLOBIN:ENTMASS:PT: RBC:QN 30.5 pg 27.0 - 34.0 pg [facility] ERYTHROCYTE MEAN CORPUSCULAR VOLUME:ENTVOL:PT:RBC:Q N:AUTOMATED COUNT 89.5 fL 80.0 - 100.0 fL [facility] ERYTHROCYTES:NCNC:PT:B LD:QN:AUTOMATED COUNT 3.6 Low [facility] HEMOGLOBIN:MCNC:PT:BLD :QN: 11.1 Low [facility] LEUKOCYTES 5.8 [facility] MONOCYTES:NCNC:PT:BLD: QN:AUTOMATED COUNT 0.5 [facility] NEUTROPHILS:NCNC:PT:BL D:QN:AUTOMATED COUNT 3.8 [facility] Interpretation and review of laboratory results Abnormal [facility] LYMPHOCYTES:NCNC:PT:BL D:QN: 1.3 [facility] Platelets (Bld) [#/Vol] 203 10*3/uL [facility] Original Ordering Provider: ELO WILLS [facility] HEMATOLOGYOrdered By: SYSTEM SYSTEM on 07-11-2024 [...] Normal 4.0 - 11.0 E9/L Remisol Heme [id number] 07-11-2024 HbA1c (Bld) [Mass fraction] 6.3 % High <=5.9 [facility] Comment on above: Performed By: #### 7 [id number] #### [facility] [address] [place] [address] Ironon 07-11-2024 Iron [Mass/Vol] 38 microgram/dL Normal 35-153 [facility] Comment on above: Performed By: #### 2 534009 #### [facility] [address] [place] [address] Laboratory - Chemistry and C hemistry - [...] 07-11-2024 Cholesterol [Mass/Vol] 96 mg/dL Low 120-200 [facility] Comment on above: Performed By: #### 2 134240 #### [facility] [address] [place] [address] Cholesterol in HDL [Mass/Vol] 38 mg/dL Invalid Interpretation Code [facility] Comment on above: Result Comment: '>= 60 LOW RISK' '<= 40 HIGH RISK' Performed By: #### 2 [id number] #### [facility] [address] [place] [address] Cholesterol in LDL [Mass/Vol] 44 mg/dL Normal <=129 [facility] Comment on above: Performed By: #### 2 655779 #### [facility] [address] [place] [address] Cholesterol in VLDL [Mass/Vol] 14 mg/dL Normal 7-40 [facility] Comment on above: Performed By: #### 2 660245 #### [facility] [address] [place] [address] Triglyceride [Mass/Vol] 68 mg/dL Normal <=149 [facility] Comment on above: Performed By: #### 2 241552 #### [facility] [address] [place] [address] No Panel InformationOrdered By: Talita Candelario on 07-11-2024 UA Spec Desc Clean Catch (07/11/24 1:55 PM) Normal [facility] UA Auto SS U Microalbon 07-11-2024 Albumin DL <= 20 mg/L (U) [Mass/Vol] 0.8 mg/dL Normal 0.0-1.9 [facility] Comment on above: Performed By: #### 1 [id number] #### [facility] [address] [place] [address] UA with Cult Rflxon 07-12-19 Bilirubin Ql (U) Negative Normal Negative [facility] Comment on above: Performed By: #### 4 [id number] #### [facility] [address] [place] [address] Order Comment: Farhan daly, screen shot this page and put a note on it to be credited.07/11/2024 18:05:55 EDT [id number] Performed By: #### 4 [id number] #### [facility] [address] [place] [address] Clarity (U) Clear Normal Clear [facility] Comment on above: Performed By: #### 4 [id number] #### [facility] [address] [place] [address] Order Comment: Farhan daly, screen shot this page and put a note on it to be credited.07/11/2024 18:05:55 EDT [id number] Performed By: #### 4 [id number] #### [facility] [address] [place] [address] Color (U) Yellow Normal Yellow [facility] Comment on above: Result Comment: Micr oscopic readings are only performed on those samples that meet specific criteria set forth by [facility]. Performed By: #### 4 [id number] #### [facility] [address] [place] [address] Order Comment: Farhan daly, screen shot this page and put a note on it to be credited.07/11/2024 18:05:55 EDT [id number] Performed By: #### 4 [id number] #### [facility] [address] [place] [address] Glucose Ql (U) 4+ mg/dL Abnormal Negative [facility] Comment on above: Performed By: #### 4 [id number] #### [facility] [address] [place] [address] Order Comment: Farhan daly, screen shot this page and put a note on it to be credited.07/11/2024 18:05:55 EDT [id number] Performed By: #### 4 [id number] #### [facility] [address] [place] [address] Hemoglobin Auto test strip (U) [Mass/Vol] Negative Normal Negative [facility] Comment on above: Performed By: #### 4 [id number] #### [facility] [address] [place] [address] Order Comment: Dupli shweta order, screen shot this page and put a note on it to be credited.07/11/2024 18:05:55 EDT [id number] Performed By: #### 4 [id number] #### [facility] [address] [place] [address] Ketones Auto test strip Ql (U) Negative Normal Negative [facility] Comment on above: Performed By: #### 4 [id number] #### [facility] [address] [place] [address] Order Comment: Dupli shweta order, screen shot this page and put a note on it to be credited.07/11/2024 18:05:55 EDT [id number] Performed By: #### 4 [id number] #### [facility] [address] [place] [address] Leukocyte esterase Auto test strip Ql (U) Negative Normal Negative [facility] Comment on above: Performed By: #### 4 [id number] #### [facility] [address] [place] [address] Order Comment: Dupli shweta order, screen shot this page and put a note on it to be credited.07/11/2024 18:05:55 EDT [id number] Performed By: #### 4 [id number] #### [facility] [address] [place] [address] Nitrite Auto test strip Ql (U) Negative Normal Negative [facility] Comment on above: Performed By: #### 4 [id number] #### [facility] [address] [place] [address] Order Comment: Dupli shweta order, screen shot this page and put a note on it to be credited.07/11/2024 18:05:55 EDT [id number] Performed By: #### 4 [id number] #### [facility] [address] [place] [address] pH (U) 5.5 [pH] Invalid Interpretation Code 5.0-9.0 [facility] Comment on above: Performed By: #### 4 [id number] #### [facility] [address] [place] [address] Order Comment: Farhan daly, screen shot this page and put a note on it to be credited.07/11/2024 18:05:55 EDT [id number] Performed By: #### 4 [id number] #### [facility] [address] [place] [address] Protein Ql (U) Negative Normal Negative [facility] Comment on above: Performed By: #### 4 [id number] #### [facility] [address] [place] [address] Order Comment: Farhan daly, screen shot this page and put a note on it to be credited.07/11/2024 18:05:55 EDT [id number] Performed By: #### 4 [id number] #### [facility] [address] [place] [address] Specific gravity (U) [Rel density] 1.023 Invalid Interpretation Code 1.005-1.030 [facility] Comment on above: Performed By: #### 4 [id number] #### [facility] [address] [place] [address] Order Comment: Farhna daly, screen shot this page and put a note on it to be credited.07/11/2024 18:05:55 EDT [id number] Performed By: #### 4 [id number] #### [facility] [address] [place] [address] Urobilinogen (U) [Mass/Vol] Negative Normal Negative [facility] Comment on above: Performed By: #### 4 [id number] #### [facility] [address] [place] [address] Order Comment: Farhan daly, screen shot this page and put a note on it to be credited.07/11/2024 18:05:55 EDT [id number] Performed By: #### 4 [id number] #### [facility] [address] [place] [address] Type of Urine collection method Clean Catch Normal [facility] Comment on above: Performed By: #### 4 [id number] #### [facility] [address] [place] [address] Order Comment: Farhan daly, screen shot this page and put a note on it to be credited.07/11/2024 18:05:55 EDT [id number] Performed By: #### 4 [id number] #### [facility] [address] [place], [place] [id number] URINALYSISOrdered By: SYSTEM SYSTEM on 07-11-2024 Color (U) Yellow 1 (07/11/24 1:55 PM) Normal Yellow [facility] UA Auto SS Comment on above: Interpretive Data: M icroscopic readings are only performed on those samples that meet specific criteria set forth by [facility]. Color (U) Yellow 2 (07/11/24 1:55 PM) Normal Yellow [facility] UA Auto SS Comment on above: Interpretive Data: M icroscopic readings are only performed on those samples that meet specific criteria set forth by [facility]. eGFRon 07-11-2024 eGFR 87 mL/min/1.73 m2 Normal >=59 [facility] Comment on above: Performed By: #### 1 [id number] #### [facility] [address] [place] [address] Aaron 04-11-2024 L - -------- Specimen: [id number] Received: 04/12/24 Status: SULY Mendez Num: [id number] Spec Type: Surgical Subm Dr: Sabino Mauricio DO Tissues: A Esophagus Biopsy (DISTAL ESOPHAGUS BX X2) B Colon Biopsy (RECTAL SIGMOID JUNCTION POLY) Procedures: HE/4, Gross/Micro L4/2 -------- Age/ Patient Sex Location Account Attending Physician -------- Kimmy Mcarthur 78/ LABEL [id number] Sabino Mauricio DO -------- SPEC NUM: [id number] RECD: 04/12/24 STATUS: SULY MENDEZ NUM: [id number] MALKA: 04/11/24-[address]: Sabino Mauricio DO ENTERED: 04/12/[address] [facility] [address]: Raza Ward SPEC TYPE: Surgical DEPT: BRAIN DICKERSON ENTERED BY: [id number] RECV BY: [id number] ORDERED: HE/4, Gross/Micro L4/2 ORDERED: HE/4, Gross/Micro [...] [id number] Received: 04/12/24 Status: SULY Mendez Num: [id number] Spec Type: Surgical Subm Dr: Sabino Mauricio DO Tissues: A Esophagus Biopsy (DISTAL ESOPHAGUS BX X2) B Colon Biopsy (RECTAL SIGMOID JUNCTION POLY) Procedures: HE/4, Gross/Micro L4/2 -------- Patient: Kimmy Mcarthur [id number] (Continued) -------- Specimen: [id number] Received: 04/12/24 (Continued) Signed (signature on file) Jasiel Sanon MD 04/13/24 1225 -------- Specimen: [id number] Received: 04/12/24 Status: SULY Mendez Num: [id number] Spec Type: Surgical Subm Dr: Sabino Mauricio DO Tissues: A Esophagus Biopsy (DISTAL ESOPHAGUS BX X2) B Colon Biopsy (RECTAL SIGMOID JUNCTION POLY) Procedures: HE/Polly, Gross/Micro L4/2 -------- Patient: LyubovKimmy A [id number] (Continued) -------- Specimen: [id number] Received: 04/12/24 (Continued) Microscopic Description A B:Microscopic examination is performed. CPT Codes 23613 x2 -------- -------- Specimen: [id number] Received: 04/12/240878 Status: SULY Mendez Num: [id number] Spec Type: Surgical Subm Dr: Sabino Mauricio DO Tissues: A Esophagus Biopsy (DISTAL ESOPHAGUS BX X2) B Colon Biopsy (RECTAL SIGMOID JUNCTION POLY) Procedures: BENIGNO/Polly Gross/Micro L4/2 -------- Patient: Kimmy Mcarthur [id number] (Continued) -------- Signed (signature on file) Jasiel Sanon MD 04/13/24 1225 Normal [facility] Office Visiton 03-14-2024 Follow-up visit [id number] Kimmy Mcarthur 1945 M Date Provider Department Center 03/14/2024 Kacie-NATASHA CAMPO EBONY Roland Family History Problem Relation Age of Onset Cancer Father Diabetes Father Family Status - Relation Status Age at Father Level of Service:29641 [place] OFFICE/OUTPATIENT ESTABLISHED MOD MDM 30 MIN Normal [facility] MLR HEMOGLOBIN A1Con 024 Glucose [Mass/Vol] 180 mg/dL [facility] HbA1c (Bld) [Mass fraction] 7.9 % High 4.5 - 6.2 % [facility] Comment on above: ADA RECOMMENDED LIMI T 4.0 - 6.0 ADA THERAPEUTIC TARGET < 7.0 ACTION SUGGESTED > 7.0 Interpretation and review of laboratory results Abnormal [facility] 36on 02-13-2024 36 His LDL from 12/07/2023 is 46. Would you still like for me to try to get [employer] approved for him? Normal [facility] XR SPINE THORACIC 3 VWSon XR [...] Jami Ko MD on 01/11/2024 4:27 PM [facility] 36on 01-04-2024 36 PCP Marisol Boyce [...] taking, can you please call Marisol at [phone] and let her know. THANKS!!! Normal [facility] 36on 12-16-2023 36 Regarding stress marysol [...] time. Thank you Patient's made aware. Normal [facility] LIVER PANELon 12-07-2023 Albumin [Mass/Vol] 4.0 g/dL Normal 3.2-5.3 [facility] Comment on above: Performed By: #### M ALBU #### [facility] ([id number]) [address], [address] [place] [address] ALP [Catalytic activity/Vol] 63 U/L Normal 39-130 [facility] Comment on above: Performed By: #### M ALBU #### [facility] ([id number]) [address], [address] [place] [address] ALT [Catalytic activity/Vol] 39 U/L Normal 0-40 [facility] Comment on above: Performed By: #### M ALBU #### [facility] ([id number]) [address], [address] [place] [address] AST [Catalytic activity/Vol] 18 U/L Normal 0-41 [facility] Comment on above: Performed By: #### M ALBU #### [facility] ([id number]) [address], [address] [place] [address] Bilirubin [Mass/Vol] 1.1 mg/dL Normal 0.3-1.2 [facility] Comment on above: Performed By: #### M ALBU #### [facility] ([id number]) [address], [address] [place] [address] Bilirubin.direct [Mass/Vol] 0.2 mg/dL Normal 0.0-0.4 [facility] Comment on above: Performed By: ###Erik HENRIQUEZ #### [facility] ([id number]) [address], [address] [place] [address] Protein [Mass/Vol] 6.4 g/dL Normal 6.0-8.0 [facility] Comment on above: Performed By: ###Erik HENRIQUEZ #### [facility] ([id number]) [address] [facility] [address], [address] [place] [address] Lipid 1996 panelon 4 Cholesterol [Mass/Vol] 108 mg/dL Low 150-200 [facility] Comment on above: Performed By: ###Erik HENRIQUEZ #### [facility] ([id number]) [address], [address] [place] [address] Cholesterol in HDL [Mass/Vol] 43 mg/dL Normal >39 [facility] Comment on above: Result Comment: HDL <40 mg/dL - High Risk HDL > or = 40mg/dL- Desirable HDL >60 mg/dL - Negative Risk Performed By: #### Brionna HENRIQUEZ #### [facility] ([id number]) [address], [address] [place] [address] Cholesterol in LDL [Mass/Vol] 46 mg/dL Normal <130 [facility] Comment on above: Result Comment: LDL <100 mg/dL - Desirable LDL >160 mg/dL - High Risk Performed By: #### Brionna HENRIQUEZ #### [facility] ([id number]) [address], [address] [place] [address] Cholesterol in VLDL [Mass/Vol] 19 mg/dL Normal 0-30 [facility] Comment on above: Performed By: #### M ALBU #### [facility] ([id number]) [address], [address] [place] [address] CHOLESTEROL:HDL 2.5 Normal 1.0-5.0 [facility] Comment on above: Performed By: #### M ALBU #### [facility] ([id number]) [address], [address] [place] [address] Triglyceride [Mass/Vol] 95 mg/dL Normal 27-150 [facility] Comment on above: Performed By: #### M ALBU #### [facility] ([id number]) [address], [address] [place] [address] BASIC METABOLIC PANLon 11-28 Anion gap [Moles/Vol] 8 mmol/L Normal 5-15 [facility] Comment on above: Performed By: #### M ALBU #### [facility] ([id number]) [address], [address] [place] [address] Calcium [Mass/Vol] 9.2 mg/dL Normal 8.5-10.5 [facility] Comment on above: Performed By: #### M ALBU #### [facility] ([id number]) [address], [address] [place] [address] Chloride [Moles/Vol] 104 mmol/L Normal 98-109 [facility] Comment on above: Performed By: #### M ALBU #### [facility] ([id number]) [address], [address] [place] [address] CO2 [Moles/Vol] 27 mmol/L Normal 22-32 [facility] Comment on above: Performed By: #### M ALBU #### [facility] ([id number]) [address], [address] [place] [address] Creatinine [Mass/Vol] 1.01 mg/dL Normal 0.60-1.30 [facility] Comment on above: Result Comment: METH OD TRACEABLE TO IDMS STANDARD Performed By: #### M ALBU #### [facility] ([id number]) [address] [place] [address] GFR/1.73 sq M.predicted among non-blacks MDRD (S/P/Bld) [Vol rate/Area] 77 mL/min/{1.73_m2} Normal >59 [facility] Comment on above: Result Comment: Reported eGFR is based on the CKD-EPI 2020 equation that does not use a race coefficient. Performed By: #### M ALBU #### [facility] ([id number]) [address], [address] [place] [address] Glucose [Mass/Vol] 187 mg/dL High 65-99 [facility] Comment on above: Performed By: #### M ALBU #### [facility] ([id number]) [address] [place] [address] Potassium [Moles/Vol] 4.2 mmol/L Normal 3.5-5.0 [facility] Comment on above: Performed By: #### M ALBU #### [facility] ([id number]) [address], [address] [place] [address] Sodium [Moles/Vol] 139 mmol/L Normal 134-146 [facility] Comment on above: Performed By: #### M ALBU #### [facility] ([id number]) [address], [address] [place] [address] Urea nitrogen [Mass/Vol] 22 mg/dL Normal 5-27 [facility] Comment on above: Performed By: #### M ALBU #### [facility] ([id number]) [address] [facility], [address] [place] [address] Basic metabolic 1998 panelon 11-29-2023 Anion gap [Moles/Vol] 8 mmol/L 5 - 15 mmol/L [facility] Calcium [Mass/Vol] 9.2 mg/dL 8.5 - 10. 5 mg/dL [facility] Chloride [Moles/Vol] 104 mmol/L 98 - 10 9 mmol/L [facility] CO2 [Moles/Vol] 27 mmol/L 22 - 32 mmol/L [facility] Creatine [Mass/Vol] 1.01 mg/dL 0.60 - 1 .30 mg/dL [facility] Comment on above: METHOD TRACEABLE TO IDCT STANDARD GFR/1.73 sq M.predicted among non-blacks MDRD (S/P/Bld) [Vol rate/Area] 77 mL/min/{1.73_m2} - PINF [facility] Comment on above: Reported eGFR is based on the CKD-EPI 2020 equation that does not use a race coefficient. PERFORMED AT [facility] [address],[place] [address] Glucose [Mass/Vol] 187 mg/dL High 65 - 99 mg/dL [facility] Interpretation and review of laboratory results Abnormal [facility] Potassium [Moles/Vol] 4.2 mmol/L 3.5 - 5.0 mmol/L [facility] Sodium [Moles/Vol] 139 mmol/L 134 - 146 mmol/L [facility] Urea nitrogen [Mass/Vol] 22 mg/dL 5 - 27 mg/dL [facility] HGB A1C (GLYCO-HGB)on 2023 Glucose [Mass/Vol] 192 mg/dL Normal [facility] Comment on above: Performed By: #### M MARTINEZ #### [facility] ([id number]) [address], [address] [place] [address] HbA1c (Bld) [Mass fraction] 8.3 % High 4.4-5.6 [facility] Comment on above: Result Comment: NOTE ADA Guidelines Result HgbA1c Normal : less than 5.7 % Prediabetes : 5.7 % to 6.4 % Diabetes : > 6.4 % Use with caution in patients with abnormal hemoglobin variants as the half-life of red blood cells and in vivo glycation rates are affected. Performed By: #### M MARTINEZ #### [facility] ([id number]) [address], [address] [place] [address] Office Visiton 11-29-2023 Follow-up visit [id number] Rsuh Mcarthurothy Laura 1945 Date Provider Department Center 11/29/2023 [facility]PO [facility] Family History Problem Relation Age of Onset Cancer Father Diabetes Father Family Status - Relation Status Age at Father Level of Service:[address]014 [place] OFFICE/OUTPATIENT ESTABLISHED MOD MDM 30 MIN Normal [facility] Prostate specific Ag [Mass/V ol]on 11-29-2023 PROSTATIC SPEC ANT 3.12 ng/mL Normal 0.00-4.00 [facility] Comment on above: Result Comment: The method used for this test is [employer] DXI chemiluminescent immunoassay. Values obtained by different assay methods cannot be used interchangeably. Performed By: #### M MARTINEZ #### [facility] ([id number]) [address] [place] [address], [address] [place] [address] XR CHEST 2 VWSon 10-11-2023 XR CHEST [...] Valentin MD on 10/11/2023 12:16 PM Normal [facility] FREE AND TOTAL PSAon 024 % FREE PSA 34.9 Normal [facility] Comment on above: Result Comment: [...] BPH. Performed By: #### F TPSA #### [facility] ([id number]) [address] [place] [address] FREE PSA 1.13 ng/mL Normal [facility] Comment on above: Performed By: #### F TPSA #### [facility] ([id number]) [address] [place] [address] PROSTATIC SPEC ANT 3.24 ng/mL Normal 0.00-4.00 [facility] Comment on above: Result Comment: The method used for this test is [employer] [place] DXI chemiluminescent immunoassay. Values obtained by different assay methods cannot be used interchangeably. Performed By: #### F TPSA #### [facility] ([id number]) [address] [place] [address] CBC AND AUTO DIFFon 05-04-19 24 ABSOLUTE BASOPHIL 0.0 X10E9/L Normal 0.0-0.2 [facility] Comment on above: Performed By: #### C MP, 2498-4, 03056-4, 2276-4, CBCA #### [facility] ([id number]) [address] [place] [address] ABSOLUTE NEUTROPHIL 3.8 X10E9/L Normal 1.5-6.6 [facility] Comment on above: Performed By: #### C MP, 2498-4, 01376-1, 2276-4, CBCA #### [facility] ([id number]) [address], [facility] [address] [place] [address] Basophils/100 WBC (Bld) 0.7 % Normal [facility] Comment on above: Performed By: #### C MP, 2498-4, 13310-5, 2276-4, CBCA #### [facility] ([id number]) [address], [facility] [address] [place] [address] Eosinophils (Bld) [#/Vol] 0.3 10*3/uL Normal 0.0-0.4 [facility] Comment on above: Performed By: #### C ROHINI, 2498-4, 84210-2, 2276-4, CBCA #### [facility] ([id number]) [address], [facility] [address] [place] [address] Eosinophils/100 WBC (Bld) 4.1 % Normal [facility] Comment on above: Performed By: #### C ROHINI, 2498-4, 03919-4, 2275-, CBCA #### [facility] ([id number]) [address] [address] [place] [address] Erythrocyte distribution width (RBC) [Ratio] 13.4 % Normal 11.5-15.0 [facility] Comment on above: Performed By: #### C ROHINI, 2498-4, 92672-5, 6-4, CBCA #### [facility] ([id number]) [address] [address] [place] [address] Hematocrit (Bld) [Volume fraction] 39.3 % Normal 39-49 [facility] Comment on above: Performed By: #### C MP, 2498-4, 50219-9, 2276-4, CBCA #### [facility] ([id number]) [address], [facility] [address] [place] [address] Hemoglobin (Bld) [Mass/Vol] 13.5 g/dL Normal 13.0-17.0 [facility] Comment on above: Performed By: #### C ROHINI, 2498-4, 86302-5, 2276-4, CBCA #### [facility] ([id number]) [address], [facility] [address] [place] [address] Lymphocytes (Bld) [#/Vol] 2.4 10*3/uL Normal 1.0-3.5 [facility] Comment on above: Performed By: #### C ROHINI, 2498-4, 29773-9, 2276-4, CBCA #### [facility] ([id number]) [address], [facility] [address] [place] [address] Lymphocytes/100 WBC (Bld) 34.3 % Normal [facility] Comment on above: Performed By: #### C ROHINI, 2498-4, 80355-0, 2275-4, CBCA #### [facility] ([id number]) [address], [facility] [address] [place] [address] MCH (RBC) [Entitic mass] 30.6 pg Normal 27-34 [facility] Comment on above: Performed By: #### C ROHINI, 2498-4, 25900-2, 2275-4, CBCA #### [facility] ([id number]) [address], [facility] [address] [place] [address] MCHC (RBC) [Mass/Vol] 34.3 g/dL Normal 32-36 [facility] Comment on above: Performed By: #### C ROHINI, 2498-4, 40563-0, 2276-4, CBCA #### [facility] ([id number]) [address], [facility] [address] [place] [address] MCV (RBC) [Entitic vol] 89 fL Normal 80-100 [facility] Comment on above: Performed By: #### C MP, 2498-4, 46842-1, 2276-4, CBCA #### [facility] ([id number]) [address] [place] [address] Monocytes (Bld) [#/Vol] 0.5 10*3/uL Normal 0-0.9 [facility] Comment on above: Performed By: #### C MP, 2498-4, 44659-9, 2276-4, CBCA #### [facility] ([id number]) [address], [address] [place] [address] Monocytes/100 WBC (Bld) 7.3 % Normal [facility] Comment on above: Performed By: #### C MP, 2498-4, 87003-3, 2276-4, CBCA #### [facility] ([id number]) [address], [facility] [address] [place] [address] Neutrophils/100 WBC (Bld) 53.6 % Normal [facility] Comment on above: Performed By: #### C MP, 2498-4, 37007-4, 2276-4, CBCA #### [facility] ([id number]) [address], [facility] [address] [place] [address] Platelet mean volume (Bld) [Entitic vol] 8.1 fL Normal 7-12 [facility] Comment on above: Performed By: #### C MP, 2498-4, 83770-1, 2276-4, CBCA #### [facility] ([id number]) [address], [address] [place] [address] Platelets (Bld) [#/Vol] 169 10*3/uL Normal 150-450 [facility] Comment on above: Performed By: #### C MP, 2498-4, 26620-4, 2276-4, CBCA #### [facility] ([id number]) [address], [address] [place] [address] RBC COUNT 4.41 X10E12/L Normal 4.10-5.70 [facility] Comment on above: Performed By: #### C ROHINI, 2498-4, 64021-6, 2276-4, CBCA #### [facility] ([id number]) [address], [address] [place] [address] WBC (Bld) [#/Vol] 7.0 10*3/uL Normal 4.0-11.0 [facility] Comment on above: Performed By: #### C ROHINI, 2498-4, 92886-6, 2276-4, CBCA #### [facility] ([id number]) [address], [address] [place] [address] COMPREHENSIVE METABOLIC PANE Aaron 05-04-2023 Albumin [Mass/Vol] 4.0 g/dL Normal 3.2-5.3 [facility] Comment on above: Performed By: #### C ROHINI, 2498-4, 49614-8, 2276-4, CBCA #### [facility] ([id number]) [address], [address] [place] [address] ALP [Catalytic activity/Vol] 89 U/L Normal 39-130 [facility] Comment on above: Performed By: #### C ROHINI, 2498-4, 29982-5, 2276-4, CBCA #### [facility] ([id number]) [address], [address] [place] [address] ALT [Catalytic activity/Vol] 15 U/L Normal 0-40 [facility] Comment on above: Performed By: #### C ROHINI, 2498-4, 63166-2, 2276-4, CBCA #### [facility] ([id number]) [address], [address] [place] [address] Anion gap [Moles/Vol] 9 mmol/L Normal 5-15 [facility] Comment on above: Performed By: #### C MP, 2498-4, 16177-2, 2276-4, CBCA #### [facility] ([id number]) [address] [place] [address] AST [Catalytic activity/Vol] 13 U/L Normal 0-41 [facility] Comment on above: Performed By: #### C ROHINI, 2498-4, 88477-9, 2276-4, CBCA #### [facility] ([id number]) [address], [address] [place] [address] Bilirubin [Mass/Vol] 1.1 mg/dL Normal 0.3-1.2 [facility] Comment on above: Performed By: #### C ROHINI, 2498-4, 38554-5, 2276-4, CBCA #### [facility] ([id number]) [address] [place] [address] Calcium [Mass/Vol] 8.9 mg/dL Normal 8.5-10.5 [facility] Comment on above: Performed By: #### C ROHINI, 2498-4, 29805-3, 2276-4, CBCA #### [facility] ([id number]) [address], [address] [place] [address] Chloride [Moles/Vol] 104 mmol/L Normal 98-109 [facility] Comment on above: Performed By: #### C ROHINI, 2498-4, 13902-9, 2276-4, CBCA #### [facility] ([id number]) [address] [place] [address] CO2 [Moles/Vol] 28 mmol/L Normal 22-32 [facility] Comment on above: Performed By: #### C ROHINI, 2498-4, 92910-3, 2276-4, CBCA #### [facility] ([id number]) [address] [place] [address] Creatinine [Mass/Vol] 0.80 mg/dL Normal 0.60-1.30 [facility] Comment on above: Result Comment: METH OD TRACEABLE TO IDMS STANDARD Performed By: #### C ROHINI, 2498-4, 68555-3, 2276-4, CBCA #### [facility] ([id number]) [address] [place] [address] eGFR (CKD-EPI) NON-RACE DEPENDENT >90 Normal >59 [facility] Comment on above: Result Comment: Reported eGFR is based on the CKD-EPI 2020 equation that does not use a race coefficient. Performed By: #### C ROHINI, 2498-4, 75576-5, 2275-4, CBCA #### [facility] ([id number]) [address] [place] [address] Glucose [Mass/Vol] 90 mg/dL Normal 65-99 [facility] Comment on above: Performed By: #### C ROHINI, 2498-4, 55006-0, 2275-4, CBCA #### [facility] ([id number]) [address] [place] [address] Potassium [Moles/Vol] 3.2 mmol/L Low 3.5-5.0 [facility] Comment on above: Performed By: #### C ROHINI, 2498-4, 14603-2, 2275-4, CBCA #### [facility] ([id number]) [address] [place] [address] Protein [Mass/Vol] 6.3 g/dL Normal 6.0-8.0 [facility] Comment on above: Performed By: #### C ROHINI, 2498-4, 03410-2, 2276-4, CBCA #### [facility] ([id number]) [address], [address] [place] [address] Sodium [Moles/Vol] 141 mmol/L Normal 134-146 [facility] Comment on above: Performed By: #### C MP, 2498-4, 54218-3, 2276-4, CBCA #### [facility] ([id number]) [address], [address] [place] [address] Urea nitrogen [Mass/Vol] 20 mg/dL Normal 5-27 [facility] Comment on above: Performed By: #### C MP, 2498-4, 86027-7, 2276-4, CBCA #### [facility] ([id number]) [address] [place] [address] Comprehensive metabolic pane aaron 05-04-2023 Albumin [Mass/Vol] 4.0 g/dL 3.2 - 5.3 g/dL [facility] ALP [Catalytic activity/Vol] 89 U/L 39 - 130 U/L [facility] ALT No additional P-5'-P [Catalytic activity/Vol] 15 U/L 0 - 40 U/L [facility] Anion gap [Moles/Vol] 9 mmol/L 5 - 15 mmol/L [facility] AST [Catalytic activity/Vol] 13 U/L 0 - 41 U/L [facility] Bilirubin [Mass/Vol] 1.1 mg/dL 0.3 - 1 .2 mg/dL [facility] Calcium [Mass/Vol] 8.9 mg/dL 8.5 - 10. 5 mg/dL [facility] Chloride [Moles/Vol] 104 mmol/L 98 - 10 9 mmol/L [facility] CO2 [Moles/Vol] 28 mmol/L 22 - 32 mmol/L [facility] Creatine [Mass/Vol] 0.80 mg/dL 0.60 - 1 .30 mg/dL [facility] Comment on above: METHOD TRACEABLE TO IDMS STANDARD GFR/1.73 sq M.predicted among non-blacks MDRD (S/P/Bld) [Vol rate/Area] mL/min/{1.73_m2} - PINF [facility] Comment on above: Reported eGFR is based on the CKD-EPI 2020 equation that does not use a race coefficient. PERFORMED AT [facility] [address],[place] [address] Glucose [Mass/Vol] 90 mg/dL 65 - 99 mg/dL [facility] Potassium [Moles/Vol] 3.2 mmol/L Low 3.5 - 5.0 mmol/L [facility] Protein [Mass/Vol] 6.3 g/dL 6.0 - 8.0 g/dL [facility] Sodium [Moles/Vol] 141 mmol/L 134 - 146 mmol/L [facility] Urea nitrogen [Mass/Vol] 20 mg/dL 5 - 27 mg/dL [facility] FERRITINon 05-04-2023 Ferritin [Mass/Vol] 99 ng/mL Normal 24-336 [facility] Comment on above: Performed By: #### David NOVA, 2498-4, 21401-4, 2276-4, CBCA #### [facility] ([id number]) [address] [place] [address] HGB A1C (GLYCO-HGB)on 2023 Glucose [Mass/Vol] 226 mg/dL Normal [facility] Comment on above: Performed By: #### David NOVA, 2498-4, 37391-5, 2276-4, CBCA #### [facility] ([id number]) [address] [place] [address] HbA1c (Bld) [Mass fraction] 9.5 % High 4.4-5.6 [facility] Comment on above: Result Comment: NOTE ADA Guidelines Result HgbA1c Normal : less than 5.7 % Prediabetes : 5.7 % to 6.4 % Diabetes : > 6.4 % Use with caution in patients with abnormal hemoglobin variants as the half-life of red blood cells and in vivo glycation rates are affected. Performed By: #### David NOVA, 2498-4, 14366-4, 2276-4, CBCA #### [facility] ([id number]) [address] [place] [address] IRONon 05-04-2023 Iron [Mass/Vol] 54 ug/dL Normal 50-212 [facility] Comment on above: Performed By: #### David NOVA, 2498-4, 48363-5, 227-4, CBCA #### [facility] ([id number]) [address] [place] [address] Lipid 1996 panelon Cholesterol [Mass/Vol] 104 mg/dL Low 150-200 [facility] Comment on above: Performed By: #### David NOVA, 2498-4, 34793-8, 2275-4, CBCA #### [facility] ([id number]) [address] [place] [address] Cholesterol in HDL [Mass/Vol] 42 mg/dL Normal >39 [facility] Comment on above: Result Comment: HDL <40 mg/dL - High Risk HDL > or = 40mg/dL- Desirable HDL >60 mg/dL - Negative Risk Performed By: #### David NOVA, 2498-4, 64314-3, 2275-4, CBCA #### [facility] ([id number]) [address], [address] [place] [address] Cholesterol in LDL [Mass/Vol] 37 mg/dL Normal <130 [facility] Comment on above: Result Comment: LDL <100 mg/dL - Desirable LDL >160 mg/dL - High Risk Performed By: #### David NOVA, 2498-4, 19436-8, 6-4, CBCA #### [facility] ([id number]) [address], [address] [place] [address] Cholesterol in VLDL [Mass/Vol] 25 mg/dL Normal 0-30 [facility] Comment on above: Performed By: #### C ROHNII, 2498-4, 76688-9, 2276-4, CBCA #### [facility] ([id number]) [address], [address] [place] [address] CHOLESTEROL:HDL 2.5 Normal 1.0-5.0 [facility] Comment on above: Performed By: #### C MP, 2498-4, 70031-6, 2276-4, CBCA #### [facility] ([id number]) [address] [facility], [address] [address] Triglyceride [Mass/Vol] 127 mg/dL Normal 27-150 [facility] Comment on above: Performed By: #### C ROHINI, 2498-4, 63751-5, 2276-4, CBCA #### [facility] ([id number]) [address], [address] [place] [id number] MICROALBUMIN - ALBUMIN:CREAT ININE URINE RATIOon 05-04-2023 ALB/CREAT RATIO NOT CALCULATED Normal 0.0-30.0 [facility] Comment on above: Result Comment: Result for Albumin/Creatinine Ratio cannot be reliably calculated because urine albumin and or urine creatinine is below the detection limit of the assay. Performed By: #### M ALBU #### [facility] ([id number]) [address], [address] [place], [place] [address] Albumin DL <= 20 mg/L (U) [Mass/Vol] mg/dL Normal 0.0-1.9 [facility] Comment on above: Performed By: #### M ALBU #### [facility] ([id number]) [address] [address], [address] [place] [address] URINE CREAT 108.56 mg/dL Normal [facility] Comment on above: Performed By: #### M ALBU #### [facility] ([id number]) [address], [address] [place] [address] No Panel Informationon 05-04 Interpretation and review of laboratory results Abnormal [facility] URINALYSISon 05-04-2023 Bilirubin Ql (U) Negative Normal NEG [facility] Comment on above: Performed By: #### M ALBU #### [facility] ([id number]) [address], [address] [place] [address] BLOOD/HGB Negative Normal NEG [facility] Comment on above: Performed By: #### M ALBU #### [facility] ([id number]) [address] [address], [address] [place] [address] Color (U) YELLOW Normal YELLOW [facility] Comment on above: Performed By: #### M ALBU #### [facility] ([id number]) [address] [place] [address] Glucose Ql (U) >1000 Abnormal NEG [facility] Comment on above: Performed By: #### M ALBU #### [facility] ([id number]) [address], [address] [place] [address] Hyaline casts LM Ql (Urine sed) 1 /lpf Normal 0-2 [facility] Comment on above: Performed By: #### M ALBU #### [facility] ([id number]) [address] [place] [address] Ketones Ql (U) Negative Normal NEG [facility] Comment on above: Performed By: #### M ALBU #### [facility] ([id number]) [address] [address] [place] [address] Leukocyte esterase Test strip Ql (U) Negative Normal NEG [facility] Comment on above: Result Comment: HIGH CONCENTRATIONS OF GLUCOSE MAY DECREASE THE REACTIVITY OF THE DIPSTICK LEUKOCYTE TEST PAD. Performed By: #### M ALBU #### [facility] ([id number]) [address], [address] [place] [address] MUCOUS PRESENT Abnormal NONE [facility] Comment on above: Performed By: #### M ALBU #### [facility] ([id number]) [address], [address] [place] [address] Nitrite Ql (U) Negative Normal NEG [facility] Comment on above: Performed By: #### M ALBU #### [facility] ([id number]) [address], [address] [place] [address] pH (U) 5.5 [pH] Normal 5.0-8.5 [facility] Comment on above: Performed By: #### Brionna ALBU #### [facility] ([id number]) [address] [place] [address] Protein Ql (U) Trace Abnormal NEG [facility] Comment on above: Performed By: #### Brionna ALBU #### [facility] ([id number]) [address] [place] [address] R.B.CELLS 1 /hpf Normal 0-5 [facility] Comment on above: Performed By: #### Brionna ALBU #### [facility] ([id number]) [address] [place] [address] Specific gravity (U) [Rel density] 1.023 Normal 1.003-1.035 [facility] Comment on above: Performed By: #### M ALBU #### [facility] ([id number]) [address], [address] [place] [address] SQUAMOUS EPITHELIUM <1 Normal 0-5 [facility] Comment on above: Performed By: #### Brionna ALBU #### [facility] ([id number]) [address], [address] [place] [address] TURBIDITY CLEAR Normal CLEAR [facility] Comment on above: Performed By: #### Brionna ALBU #### [facility] ([id number]) [address], [address] [place] [address] Urobilinogen (U) [Mass/Vol] mg/dL Normal <1.1 [facility] Comment on above: Performed By: #### M ALBU #### [facility] ([id number]) [address] [address], [address] [place] [address] W.B.CELLS 1 /hpf Normal 0-5 [facility] Comment on above: Performed By: #### M ALBU #### [facility] ([id number]) [address] [place] [address] Urinalysis, manual onlyon Epithelial cells Auto (Urine sed) [#/Area] <1 [facility] Glucose (U) [Mass/Vol] mg/dL Abnormal Negat bossman mg/dL [facility] Hemoglobin Auto test strip Ql (U) Negative Negative [facility] Hyaline casts (Urine sed) [#/Area] 1 /[LPF] [facility] Ketones (U) [Mass/Vol] Negative Negat bossman mg/dL [facility] Leukocyte esterase Auto test strip Ql (U) Negative Negative [facility] Comment on above: HIGH CONCENTRATIONS OF GLUCOSE MAY DECREASE THE REACTIVITY OF THE DIPSTICK LEUKOCYTE TEST PAD. Mucus Ql (Urine sed) PRESENT Abnormal NONE [facility] Nitrite Auto test strip Ql (U) Negative Negative [facility] Protein (U) [Mass/Vol] Trace Abnormal Negat bossman mg/dL [facility] RBC Auto (Urine sed) [#/Area] 1 [facility] Specific gravity Refractometry automated (U) [Rel density] 1.023 1.003 - 1.035 [facility] Turbidity Ql (U) CLEAR CLEAR [facility] Urobilinogen Qn (U) <1.1 NINF [facility] WBC Auto (Urine sed) [#/Area] 1 [facility] CBC AUTO DIFFon 06-11-2022 BASO # 0.0 103/ul Normal 0.0-0.1 [facility] Comment on above: Performed By: #### C BC #### [facility] [address] [place] [address] Dr. Enoch Stein Basophils/100 WBC (Bld) 0.6 % Normal 0.2-2.0 [facility] Comment on above: Performed By: #### C BC #### [facility] [address] [place] [address] Dr. Enoch Stein EO # 0.2 103/ul Normal 0.0-0.7 [facility] Comment on above: Performed By: #### C BC #### [facility] [address] [place] [address] Dr. Enoch Stein Eosinophils/100 WBC (Bld) 2.9 % Normal 0.9-7.0 [facility] Comment on above: Performed By: #### C BC #### [facility] [address] [place] [address] Dr. Enoch Stein Erythrocyte distribution width (RBC) [Ratio] 13.7 % Normal 11.0-15.0 [facility] Comment on above: Performed By: #### C BC #### [facility] [address] [place] [address] Dr. Enoch Stein Hematocrit (Bld) [Volume fraction] 35.6 % Critically low 42.0-54.0 [facility] Comment on above: Performed By: #### C BC #### [facility] [address] [place] [address] Dr. Enoch Stein Hemoglobin (Bld) [Mass/Vol] 11.7 g/dL Critically low 14.0-18.0 [facility] Comment on above: Performed By: #### C BC #### [facility] [address] [place] [address] Dr. Enoch Stein IG # 0.03 10e3/ul Normal 0.00-0.03 [facility] Comment on above: Performed By: #### C BC #### [facility] [address] [place] [address] Dr. Enoch Stein IG % 0.5 % Normal 0.0-0.5 [facility] Comment on above: Performed By: #### C BC #### [facility] [address] [address] [address] Enoch Stein LYMPH # 2.2 103/ul Normal 1.2-3.8 [facility] Comment on above: Performed By: #### C BC #### [facility] [address] [place] [address] Dr. Enoch Stein Lymphocytes/100 WBC (Bld) 35.4 % Normal 20.5-60.0 [facility] Comment on above: Performed By: #### C BC #### [facility] [address] [place] [address] Dr. Enoch Stein MANUAL DIFF REQ NO Normal [facility] Comment on above: Performed By: #### C BC #### [facility] [address] [place] [address] Dr. Enoch Stein MCH (RBC) [Entitic mass] 30.5 pg Normal 25.9-34.0 [facility] Comment on above: Performed By: #### C BC #### [facility] [address] [place] [address] Dr. Enoch Stein MCHC (RBC) [Mass/Vol] 32.9 g/dL Normal 29.9-35.2 [facility] Comment on above: Performed By: #### C BC #### [facility] [address] [place] [address] Dr. Enoch Stein MCV (RBC) [Entitic vol] 92.7 fL Normal 80.0-94.0 [facility] Comment on above: Performed By: #### C BC #### [facility] [address] [place] [address] Dr. Enoch Stein MONO # 0.5 103/ul Normal 0.3-0.8 [facility] Comment on above: Performed By: #### C BC #### [facility] [address] [place] [address] Dr. Enoch Stein Monocytes/100 WBC (Bld) 7.6 % Normal 1.7-12.0 [facility] Comment on above: Performed By: #### C BC #### [facility] [address] [place], [place] [address] Dr. Enoch Stein NEUT # 3.3 103/ul Normal 1.4-6.5 [facility] Comment on above: Performed By: #### C BC #### [facility] [address] [address] [address] Enoch Stein Neutrophils/100 WBC (Bld) 53.0 % Normal 43.0-75.0 [facility] Comment on above: Performed By: #### C BC #### [facility] [address] [address] [address] Enoch Stein Platelet mean volume (Bld) [Entitic vol] 9.4 fL Critically low 9.5-13.5 [facility] Comment on above: Performed By: #### C BC #### [facility] [address] [place] [address] Dr. Enoch Stein PLT 225 103/ul Normal 150-450 [facility] Comment on above: Performed By: #### C BC #### [facility] [address] [address] [address] Enoch Stein RBC 3.84 106/ul Critically low 4.70-6.10 [facility] Comment on above: Performed By: #### C BC #### [facility] [address] [address] [address] Enoch Stein WBC 6.2 103/ul Normal 4.0-11.0 [facility] Comment on above: Performed By: #### C BC #### [facility] [address] [place] [address] Dr. Enoch Stein ECHOCARDIO M/2D COMPLETEon 0 06-11-2022 ECHOCARDIO M/2D COMPLETE Patient: KIMMY MCARTHUR Exam Date: 06/11/2022 : 1945 Gender:M Ordering : MARCO CONDON Admission #: [id number] Family : ELO MARISOL GUERATu [employer] Order #: [id number] CLICK HERE TO VIEW EXAM ECHOCARDIOGRAM REPORT [...] M.D. on 06/11/2022 at 14:32 Normal [facility] FERRITINon 06-11-2022 Ferritin [Mass/Vol] 52.0 ng/mL Normal 26.0-388.0 [facility] Comment on above: Performed By: #### F ERR, IRON, VITB12 #### [facility] [address] [place] [address] Dr. Enoch Stein GLYCOHEMOGLOBIN A1Con 2022 ADA RECOMMENDATION SEE BELOW Normal [facility] Comment on above: Result Comment: ADA RECOMMENDED LIMIT 4.0 - 6.0 ADA THERAPEUTIC TARGET < 7.0 ACTION SUGGESTED > 7.0 Performed By: #### F ERR, IRON, VITB12 #### [facility] [address] [address] [address] Enoch Stein Glucose [Mass/Vol] 180 mg/dL Normal [facility] Comment on above: Performed By: #### F ERR, IRON, VITB12 #### [facility] [address] [address] [address] Enoch Stein HbA1c (Bld) [Mass fraction] 7.9 % Critically high 4.5-6.2 [facility] Comment on above: Performed By: #### F ERR, IRON, VITB12 #### [facility] [address] [address] [address] Enoch Stein IRONon 06-11-2022 Iron [Mass/Vol] 86.0 ug/dL Normal 65.0-175.0 [facility] Comment on above: Performed By: #### F ERR, IRON, VITB12 #### [facility] [address] [address] [address] Enoch Stein LIPID PROFILEon 06-11-2022 CHOL-HDL RATIO NORM SEE BELOW Normal [facility] Comment on above: Result Comment: 3.3 - 4.4 LOW RISK 4.4 - 7.1 AVERAGE RISK 7.1 - 11.0 MODERATE RISK >11.0 HIGH RISK Performed By: #### F ERR, IRON, VITB12 #### [facility] [address] [address] [address] Enoch Stein Cholesterol [Mass/Vol] 113 mg/dL Normal <=200 [facility] Comment on above: Performed By: #### F ERR, IRON, VITB12 #### [facility] [address] [address] [address] Enoch Stein Cholesterol in HDL [Mass/Vol] 52 mg/dL Normal 40-60 [facility] Comment on above: Performed By: #### F ERR, IRON, VITB12 #### [facility] [address] [address] [address] Enoch Stein Cholesterol in LDL [Mass/Vol] 47.0 mg/dL Normal [facility] Comment on above: Performed By: #### F ERR, IRON, VITB12 #### [facility] [address] [address] [address] Enoch Stein Cholesterol.total/Chol esterol in HDL [Mass ratio] 2.2 {ratio} Normal [facility] Comment on above: Performed By: #### F ERR, IRON, VITB12 #### [facility] [address] [address] [address] Enoch Stein HDL NORMAL > or = 60 mg/dl - LO W CARDIOVASCULAR RISK <40 mg/dl - HIGH CARDIOVASCULAR RISK Normal [facility] Comment on above: Performed By: #### F ERR, IRON, VITB12 #### [facility] [address] [address] [address] Enoch Stein LDL CALC NORMAL SEE BELOW Normal [facility] Comment on above: Result Comment: <100 mg/dl OPTIMAL 100 - 129 mg/dl NEAR OR ABOVE OPTIMAL 130 - 159 mg/dl BORDERLINE HIGH 160 - 189 mg/dl HIGH >190 mg/dl VERY HIGH Performed By: #### F ERR, IRON, VITB12 #### [facility] [address] [address] [address] Enoch Stein Triglyceride [Mass/Vol] 70 mg/dL Normal <=150 [facility] Comment on above: Performed By: #### F ERR, IRON, VITB12 #### [facility] [address] [address] [address] Enoch Stein VLDL CALC 14.0 mg/dL Normal [facility] Comment on above: Performed By: #### F ERR, IRON, VITB12 #### [facility] [address] [place] [address] Dr. nEoch Stein MICROALBUMIN, RAND URon 03-1 mALB <1.3 Normal <=30.0 [facility] Comment on above: Performed By: #### M ALBR #### [facility] [address] [place] [address] Dr. Enoch Stein PROF 14(COMP METB)on 023 Albumin [Mass/Vol] 3.7 g/dL Normal 3.4-5.0 [facility] Comment on above: Performed By: #### F ERR, IRON, VITB12 #### [facility] [address] [place] [address] Dr. Enoch Stein Albumin/Globulin [Mass ratio] 1.2 {ratio} Normal [facility] Comment on above: Performed By: #### F ERR, IRON, VITB12 #### [facility] [address] [place] [address] Dr. Enoch Stein ALP [Catalytic activity/Vol] 90 U/L Normal 46-116 [facility] Comment on above: Performed By: #### F ERR, IRON, VITB12 #### [facility] [address] [place] [address] Dr. Enoch Stein ALT [Catalytic activity/Vol] 34 U/L Normal 16-63 [facility] Comment on above: Performed By: #### F ERR, IRON, VITB12 #### [facility] [address] [place] [address] Dr. Enoch Stein Anion gap [Moles/Vol] 14.8 mmol/L Normal [facility] Comment on above: Performed By: #### F ERR, IRON, VITB12 #### [facility] [address] [place] [address] Dr. Enoch Stein AST [Catalytic activity/Vol] 22 U/L Normal 15-37 [facility] Comment on above: Performed By: #### F ERR, IRON, VITB12 #### [facility] [address] [place] [address] Dr. Enoch Stein Bilirubin [Mass/Vol] 0.6 mg/dL Normal 0.2-1.0 [facility] Comment on above: Performed By: #### F ERR, IRON, VITB12 #### [facility] [address] [place] [address] Dr. Enoch Stein Calcium [Mass/Vol] 9.7 mg/dL Normal 8.5-10.1 [facility] Comment on above: Performed By: #### F ERR, IRON, VITB12 #### [facility] [address] [address] [address] Enoch Stein Chloride [Moles/Vol] 105 mmol/L Normal 98-107 [facility] Comment on above: Performed By: #### F ERR, IRON, VITB12 #### [facility] [address] [address] [address] Enoch Stein CO2 [Moles/Vol] 26.7 mmol/L Normal 21.0-32.0 [facility] Comment on above: Performed By: #### F ERR, IRON, VITB12 #### [facility] [address] [place] [address] Dr. Enoch Stein Creatinine [Mass/Vol] 0.78 mg/dL Normal 0.70-1.30 [facility] Comment on above: Performed By: #### F ERR, IRON, VITB12 #### [facility] [address] [place] [address] Dr. Enoch Stein EGFR-AF CUBAN >60 Normal >=60 [facility] Comment on above: Performed By: #### F ERR, IRON, VITB12 #### [facility] [address] [place] [address] Dr. Enoch Stein EGFR-NON AF CUBAN >60 Normal >=60 [facility] Comment on above: Performed By: #### F ERR, IRON, VITB12 #### [facility] [address] [place] [address] Dr. Enoch Stein Globulin (S) [Mass/Vol] 3.2 g/dL Normal [facility] Comment on above: Performed By: #### F ERR, IRON, VITB12 #### [facility] [address] [place] [address] Dr. Enoch Stein Glucose [Mass/Vol] 179 mg/dL Critically high 74-106 [facility] Comment on above: Performed By: #### F ERR, IRON, VITB12 #### [facility] [address] [place] [address] Dr. Enoch Stein Potassium [Moles/Vol] 4.5 mmol/L Normal 3.5-5.1 [facility] Comment on above: Performed By: #### F ERR, IRON, VITB12 #### [facility] [address] [place] [address] Dr. Enoch Stein Protein [Mass/Vol] 6.9 g/dL Normal 6.4-8.2 [facility] Comment on above: Performed By: #### F ERR, IRON, VITB12 #### [facility] [address] [place] [address] Dr. Enoch Stein Sodium [Moles/Vol] 142 mmol/L Normal 136-145 [facility] Comment on above: Performed By: #### F ERR, IRON, VITB12 #### [facility] [address] [place] [address] Dr. Enoch Stein Urea nitrogen [Mass/Vol] 19.0 mg/dL Critically high 7.0-18.0 [facility] Comment on above: Performed By: #### F ERR, IRON, VITB12 #### [facility] [address] [place] [address] Dr. Enoch Stein Urea nitrogen/Creatinine [Mass ratio] 24.4 mg/mg Normal [facility] Comment on above: Performed By: #### F ERR, IRON, VITB12 #### [facility] [address] [place] [address] Dr. Enoch Stein UA RANDOM W/MICROSCOPICon BACTERIA NONE SEEN Normal NONE SEEN [facility] Comment on above: Performed By: #### U AMIC #### [facility] [address] [place] [address] Dr. Enoch Stein Bilirubin Ql (U) Negative Normal NEGATIVE [facility] Comment on above: Performed By: #### U AMIC #### [facility] [address] [place] [address] Dr. Enoch Stein CAST NONE SEEN Normal NONE SEEN [facility] Comment on above: Performed By: #### U AMIC #### [facility] [address] [address] [address] Enoch Stein Clarity (U) CLEAR Normal CLEAR [facility] Comment on above: Performed By: #### U AMIC #### [facility] [address] [place] [address] Dr. Enoch Stein Color (U) LT. YELLOW Normal YELLOW [facility] Comment on above: Performed By: #### U AMIC #### [facility] [address] [address] [address] Enoch Stein Crystals LM Nom (Urine sed) NONE SEEN Normal NONE SEEN [facility] Comment on above: Performed By: #### U AMIC #### [facility] [address] [place] [address] Dr. Enoch Stein Epithelial cells LM Ql (Urine sed) NONE SEEN Normal NONE SEEN /RARE [facility] Comment on above: Performed By: #### U AMIC #### [facility] [address] [place] [address] Dr. Enoch Stein Glucose Ql (U) 250 mg/dl Abnormal NEGATIVE [facility] Comment on above: Performed By: #### U AMIC #### [facility] [address] [place] [address] Dr. Enoch Stein Hemoglobin Ql (U) Negative Normal NEGATIVE [facility] Comment on above: Performed By: #### U AMIC #### [facility] [address] [place] [address] Dr. Enoch Stein Ketones Ql (U) Negative Normal NEGATIVE [facility] Comment on above: Performed By: #### U AMIC #### [facility] [address] [place] [address] Dr. Enoch Stein LEUKOCYTES Negative Normal NEGATIVE [facility] Comment on above: Performed By: #### U AMIC #### [facility] [address] [place] [address] Dr. Enoch Stein MUCOUS TRACE Abnormal NONE SEEN [facility] Comment on above: Performed By: #### U AMIC #### [facility] [address] [place] [address] Dr. Enoch Stein Nitrite Ql (U) Negative Normal NEGATIVE [facility] Comment on above: Performed By: #### U AMIC #### [facility] [address] [address] [address] Enoch Stein pH (U) 5.5 [pH] Normal 5-9 [facility] Comment on above: Performed By: #### U AMIC #### [facility] [address] [address] [address] Enoch Stein RBC NONE SEEN Abnormal 0-2 [facility] Comment on above: Performed By: #### U AMIC #### [facility] [address] [address] [address] Enoch Stein SPEC GRAVITY 1.020 Normal 1.005-<=1.02 5 [facility] Comment on above: Performed By: #### U AMIC #### [facility] [address] [place] [address] Dr. Enoch Stein UA PROTEIN Negative Normal NEGATIVE/ TRACE [facility] Comment on above: Performed By: #### U AMIC #### [facility] [address] [place] [address] Dr. Enoch Stein Urobilinogen Qn (U) 0.2 {Reilly'U}/dL Normal 0.2 - 1. 0 [facility] Comment on above: Performed By: #### U AMIC #### [facility] [address] [place] [address] Dr. Enoch Stein WBC NONE SEEN Normal NONE SEEN [facility] Comment on above: Performed By: #### U AMIC #### [facility] [address] [place] [address] Dr. Enoch Stein VITAMIN B12on 06-11-2022 Cobalamin (Vitamin B12) [Mass/Vol] 413.0 pg/mL Normal 193.0-986.0 [facility] Comment on above: Performed By: #### F ERR, IRON, VITB12 #### [facility] [address] [place] [address] ABD/PELV W CONon [...] SANJAY REECE Date: 2022-01-06 16:24 Normal [facility] AMYLASEon 01-05-2022 Amylase [Catalytic activity/Vol] 55 U/L Normal 25-115 [facility] Comment on above: Performed By: #### F ERR, IRON, VITB12 #### [facility] [address] [address] [address] Enoch Stein CBC AUTO DIFFon 01-05-2022 BASO # 0.0 103/ul Normal 0.0-0.1 [facility] Comment on above: Performed By: #### F ERR, IRON, VITB12 #### [facility] [address] [address] [address] Enoch Stein Basophils/100 WBC (Bld) 0.5 % Normal 0.2-2.0 [facility] Comment on above: Performed By: #### F ERR, IRON, VITB12 #### [facility] [address] [place] [address] Dr. Enoch Stein EO # 0.3 103/ul Normal 0.0-0.7 [facility] Comment on above: Performed By: #### F ERR, IRON, VITB12 #### [facility] [address] [place] [address] Dr. Enoch Stein Eosinophils/100 WBC (Bld) 3.7 % Normal 0.9-7.0 [facility] Comment on above: Performed By: #### F ERR, IRON, VITB12 #### [facility] [address] [place] [address] Dr. Enoch Stein Erythrocyte distribution width (RBC) [Ratio] 13.2 % Normal 11.0-15.0 [facility] Comment on above: Performed By: #### F ERR, IRON, VITB12 #### [facility] [address] [place] [address] Dr. Enoch Stein Hematocrit (Bld) [Volume fraction] 39.3 % Critically low 42.0-54.0 [facility] Comment on above: Performed By: #### F ERR, IRON, VITB12 #### [facility] [address] [place] [address] Dr. Enoch Steni Hemoglobin (Bld) [Mass/Vol] 13.0 g/dL Critically low 14.0-18.0 [facility] Comment on above: Performed By: #### F ERR, IRON, VITB12 #### [facility] [address] [place] [address] Dr. Enoch Stein IG # 0.04 10e3/ul Critically high 0.00-0.03 [facility] Comment on above: Performed By: #### F ERR, IRON, VITB12 #### [facility] [address] [place] [address] Dr. Enoch Stein IG % 0.5 % Normal 0.0-0.5 [facility] Comment on above: Performed By: #### F ERR, IRON, VITB12 #### [facility] [address] [place] [address] Dr. Enoch Stein LYMPH # 1.6 103/ul Normal 1.2-3.8 [facility] Comment on above: Performed By: #### F ERR, IRON, VITB12 #### [facility] [address] [place] [address] Dr. Enoch Stein Lymphocytes/100 WBC (Bld) 20.4 % Critically low 20.5-60.0 [facility] Comment on above: Performed By: #### F ERR, IRON, VITB12 #### [facility] [address] [place] [address] Dr. Enoch Stein MANUAL DIFF REQ NO Normal [facility] Comment on above: Performed By: #### F ERR, IRON, VITB12 #### [facility] [address] [place] [address] Dr. Enoch Stein MCH (RBC) [Entitic mass] 30.5 pg Normal 25.9-34.0 [facility] Comment on above: Performed By: #### F ERR, IRON, VITB12 #### [facility] [address] [place] [address] Dr. Enoch Stein MCHC (RBC) [Mass/Vol] 33.1 g/dL Normal 29.9-35.2 [facility] Comment on above: Performed By: #### F ERR, IRON, VITB12 #### [facility] [address] [place] [address] Dr. Enoch Stein MCV (RBC) [Entitic vol] 92.3 fL Normal 80.0-94.0 [facility] Comment on above: Performed By: #### F ERR, IRON, VITB12 #### [facility] [address] [place] [address] Dr. Enoch Stein MONO # 0.4 103/ul Normal 0.3-0.8 [facility] Comment on above: Performed By: #### F ERR, IRON, VITB12 #### [facility] [address] [place] [address] Dr. Enoch Stein Monocytes/100 WBC (Bld) 4.7 % Normal 1.7-12.0 [facility] Comment on above: Performed By: #### F ERR, IRON, VITB12 #### [facility] [address] [place] [address] Dr. Enoch Stein NEUT # 5.6 103/ul Normal 1.4-6.5 [facility] Comment on above: Performed By: #### F ERR, IRON, VITB12 #### [facility] [address] [place] [address] Dr. Enoch Stein Neutrophils/100 WBC (Bld) 70.2 % Normal 43.0-75.0 [facility] Comment on above: Performed By: #### F ERR, IRON, VITB12 #### [facility] [address] [place] [address] Dr. Enoch Stein Platelet mean volume (Bld) [Entitic vol] 10.2 fL Normal 9.5-13.5 [facility] Comment on above: Performed By: #### F ERR, IRON, VITB12 #### [facility] [address] [place] [address] Dr. Enoch Stein PLT 192 103/ul Normal 150-450 [facility] Comment on above: Performed By: #### F ERR, IRON, VITB12 #### [facility] [address] [place] [address] Dr. Enoch Stein RBC 4.26 106/ul Critically low 4.70-6.10 [facility] Comment on above: Performed By: #### F ERR, IRON, VITB12 #### [facility] [address] [place] [address] Dr. Enoch Stein WBC 8.0 103/ul Normal 4.0-11.0 [facility] Comment on above: Performed By: #### F ERR, IRON, VITB12 #### [facility] [address] [place] [address] Dr. Enoch Stein CULTURE URINEon 01-05-2022 CULTURE URINE Culture Observations : NO GROWTH. Normal [facility] Comment on above: Performed By: #### F ERR, IRON, VITB12 #### [facility] [address] [place] [address] Dr. Enoch Stein GLYCOHEMOGLOBIN A1Con 2021 ADA RECOMMENDATION SEE BELOW Normal [facility] Comment on above: Result Comment: ADA RECOMMENDED LIMIT 4.0 - 6.0 ADA THERAPEUTIC TARGET < 7.0 ACTION SUGGESTED > 7.0 Performed By: #### A 1C #### [facility] [address] [place] [address] Dr. Enoch Stein Glucose [Mass/Vol] 166 mg/dL Normal [facility] Comment on above: Performed By: #### A 1C #### [facility] [address] [place] [address] Dr. Enoch Stein HbA1c (Bld) [Mass fraction] 7.4 % Critically high 4.5-6.2 [facility] Comment on above: Performed By: #### A 1C #### [facility] [address] [place] [address] Dr. Enoch Stein LIPASEon 01-05-2022 Lipase [Catalytic activity/Vol] 86.0 U/L Normal 73.0-393.0 [facility] Comment on above: Performed By: #### F ERR, IRON, VITB12 #### [facility] [address] [place] [address] Dr. Enoch Stein PROF 14(COMP METB)on 022 Albumin [Mass/Vol] 3.8 g/dL Normal 3.4-5.0 [facility] Comment on above: Performed By: #### F ERR, IRON, VITB12 #### [facility] [address] [place] [address] Dr. Enoch Stein Albumin/Globulin [Mass ratio] 1.1 {ratio} Normal [facility] Comment on above: Performed By: #### F ERR, IRON, VITB12 #### [facility] [address] [place] [address] Dr. Enoch Stein ALP [Catalytic activity/Vol] 101 U/L Normal 46-116 [facility] Comment on above: Performed By: #### F ERR, IRON, VITB12 #### [facility] [address] [place] [address] Dr. Enoch Stein ALT [Catalytic activity/Vol] 25 U/L Normal 16-63 [facility] Comment on above: Performed By: #### F ERR, IRON, VITB12 #### [facility] [address] [place] [address] Dr. Enoch Stein Anion gap [Moles/Vol] 15.2 mmol/L Normal [facility] Comment on above: Performed By: #### F ERR, IRON, VITB12 #### [facility] [address] [place] [address] Dr. Enoch Stein AST [Catalytic activity/Vol] 14 U/L Critically low 15-37 [facility] Comment on above: Performed By: #### F ERR, IRON, VITB12 #### [facility] [address] [place] [address] Dr. Enoch Stein Bilirubin [Mass/Vol] 1.0 mg/dL Normal 0.2-1.0 [facility] Comment on above: Performed By: #### F ERR, IRON, VITB12 #### [facility] [address] [place] [address] Dr. Enoch Stein Calcium [Mass/Vol] 9.4 mg/dL Normal 8.5-10.1 [facility] Comment on above: Performed By: #### F ERR, IRON, VITB12 #### [facility] [address] [place] [address] Dr. Enoch Stein Chloride [Moles/Vol] 104 mmol/L Normal 98-107 [facility] Comment on above: Performed By: #### F ERR, IRON, VITB12 #### [facility] [address] [place] [address] Dr. Enoch Stein CO2 [Moles/Vol] 27.1 mmol/L Normal 21.0-32.0 [facility] Comment on above: Performed By: #### F ERR, IRON, VITB12 #### [facility] [address] [place] [address] Dr. Enoch Stein Creatinine [Mass/Vol] 1.23 mg/dL Normal 0.70-1.30 [facility] Comment on above: Performed By: #### F ERR, IRON, VITB12 #### [facility] [address] [address] [address] Enoch Stein EGFR-AF CUBAN >60 Normal >=60 [facility] Comment on above: Performed By: #### F ERR, IRON, VITB12 #### [facility] [address] [address] [address] Enoch Stein EGFR-NON AF CUBAN 57 mL/min/1.73m2 Critically low >=60 [facility] Comment on above: Performed By: #### F ERR, IRON, VITB12 #### [facility] [address] [place] [address] Dr. Enoch Stein Globulin (S) [Mass/Vol] 3.4 g/dL Normal [facility] Comment on above: Performed By: #### F ERR, IRON, VITB12 #### [facility] [address] [place] [address] Dr. Enoch Stein Glucose [Mass/Vol] 165 mg/dL Critically high 74-106 [facility] Comment on above: Performed By: #### F ERR, IRON, VITB12 #### [facility] [address] [place] [address] Dr. Enoch Stein Potassium [Moles/Vol] 5.3 mmol/L Critically high 3.5-5.1 [facility] Comment on above: Performed By: #### F ERR, IRON, VITB12 #### [facility] [address] [place] [address] Dr. Enoch Stein Protein [Mass/Vol] 7.2 g/dL Normal 6.4-8.2 [facility] Comment on above: Performed By: #### F ERR, IRON, VITB12 #### [facility] [address] [place] [address] Dr. Enoch Stein Sodium [Moles/Vol] 141 mmol/L Normal 136-145 [facility] Comment on above: Performed By: #### F ERR, IRON, VITB12 #### [facility] [address] [place] [address] Dr. Enoch Stein Urea nitrogen [Mass/Vol] 26.0 mg/dL Critically high 7.0-18.0 [facility] Comment on above: Performed By: #### F ERR, IRON, VITB12 #### [facility] [address] [place] [address] Dr. Enoch Stein Urea nitrogen/Creatinine [Mass ratio] 21.1 mg/mg Normal [facility] Comment on above: Performed By: #### F ERR, IRON, VITB12 #### [facility] [address] [place] [address] Dr. Enoch Stein SED RATE [facility] 2021 SED RATE 4 mm/hr Normal <=20 [facility] Comment on above: Performed By: #### S EDR #### [facility] [address] [place] [address] Dr. Enoch Stein UA RANDOM W/MICROSCOPICon BACTERIA TRACE Abnormal NONE SEEN [facility] Comment on above: Performed By: #### U AMIC #### [facility] [address] [place] [address] Dr. Enoch Stein Bilirubin Ql (U) SMALL Abnormal NEGATIVE [facility] Comment on above: Performed By: #### U AMIC #### [facility] [address] [place] [address] Dr. Enoch Stein CA OX CRYSTALS FEW Normal [facility] Comment on above: Performed By: #### U AMIC #### [facility] [address] [place] [address] Dr. Enoch Stein CAST SEEN Abnormal NONE SEEN [facility] Comment on above: Performed By: #### U AMIC #### [facility] [address] [place] [address] Dr. Enoch Stein Clarity (U) CLEAR Normal CLEAR [facility] Comment on above: Performed By: #### U AMIC #### [facility] [address] [place] [address] Dr. Enoch Stein Color (U) DK. YELLOW Normal YELLOW [facility] Comment on above: Performed By: #### U AMIC #### [facility] [address] [address] [address] Enoch Stein Crystals LM Nom (Urine sed) SEEN Abnormal NONE SEEN [facility] Comment on above: Performed By: #### U AMIC #### [facility] [address] [address] [address] Enoch Stein Epithelial cells LM Ql (Urine sed) RARE Normal NONE SEEN /RARE [facility] Comment on above: Performed By: #### U AMIC #### [facility] [address] [address] [address] Enoch Stein Glucose Ql (U) Negative Normal NEGATIVE [facility] Comment on above: Performed By: #### U AMIC #### [facility] [address] [address] [address] Enoch Stein Hemoglobin Ql (U) Negative Normal NEGATIVE [facility] Comment on above: Performed By: #### U AMIC #### [facility] [address] [address] [address] Enoch Stein HYALINE CAST MODERATE Normal [facility] Comment on above: Performed By: #### U AMIC #### [facility] [address] [address] [address] Encoh Stein Ketones Ql (U) 15 mg/dl Abnormal NEGATIVE [facility] Comment on above: Performed By: #### U AMIC #### [facility] [address] [address] [address] Enoch Stein LEUKOCYTES Negative Normal NEGATIVE [facility] Comment on above: Performed By: #### U AMIC #### [facility] [address] [address] [address] Enoch Stein MUCOUS MODERATE Abnormal NONE SEEN [facility] Comment on above: Performed By: #### U AMIC #### [facility] [address] [address] [address] Enoch Stein Nitrite Ql (U) Negative Normal NEGATIVE [facility] Comment on above: Performed By: #### U AMIC #### [facility] [address] [address] [address] Enoch Stein pH (U) 6.0 [pH] Normal 5-9 [facility] Comment on above: Performed By: #### U AMIC #### [facility] [address] [address] [address] Enoch Stein RBC 0-2 Normal 0-2 [facility] Comment on above: Performed By: #### U AMIC #### [facility] [address] [address] [address] Enoch Stein SPEC GRAVITY >=1.030 Abnormal 1.005-<=1.02 5 [facility] Comment on above: Performed By: #### U AMIC #### [facility] [address] [place] [address] Dr. Enoch Stein UA PROTEIN 100 mg/dl Abnormal NEGATIVE/ TRACE [facility] Comment on above: Performed By: #### U AMIC #### [facility] [address] [address] [address] Enoch Stein Urobilinogen Qn (U) 1.0 {Reilly'U}/dL Normal 0.2 - 1. 0 [facility] Comment on above: Performed By: #### U AMIC #### [facility] [address] [place] [address] Dr. Enoch Stein WBC 0-2 Abnormal NONE SEEN [facility] Comment on above: Performed By: #### U AMIC #### [facility] [address] [place] [address] Dr. Enoch Stein ECHOCARDIO M/2D COMPLETEon 0 10-14-2021 ECHOCARDIO M/2D COMPLETE Patient: KIMMY MCARTHUR Exam Date: 10/14/2021 : 1945 Gender:M Ordering : [facility] Admission #: [id number] Family : ELO MARISOL BOYCE [employer]IMPING [employer]ESS OPERATOR Order #: [id number] CLICK HERE TO VIEW EXAM ECHOCARDIOGRAM REPORT [...] Campo M.D. on 10/14/2021 at 16:57 Normal [facility] CTA NECKon 03-04-2021 CTA NECK [facility] Department of Radiology [address] [place] [id number] Patient Name: KIMMY MCARTHUR : 1945 Sex: M Age: Race: White Pt. Location: [facility] Patient Status: D Ordered Date: 01/28/2021 4:35:00 PM Completed Date: 03/04/2021 10:46 AM Requesting Provider: ALEX REECE Attending Provider: ALEX REECE Report Copy To: PRABHJOT VILLATORO Signs & Symptoms: I65.29 Occlusion and stenosis of unspecified carotid artery I10 History: Keira patient will need labs Need Wed appt medicare no pc required [address] / i65.29 med nec passed *kw 02/04/21 [...] viewed on a separate workstation. The [place] Symptomatic Carotid Endarterectomy Trial (NASCET) method for [...] achievable Electronically signed: Troy Wadsworth. Transcribed by: [email or web address], User Resident: TROY WADSWORTH Electronically Signed by: TROY WADSWORTH @ 03/08/2021 08:19 AM I personally read this/these film(s) with this resident Normal [facility] Vital Signs Date Time Vital Sign Value Performing Clinician Facility 09-26-2024 08:53-0400 Body mass index (BMI) [Ratio] 22.76 kg/m2 Marisol Boyce NP Work Phone: [facility] 09-26-2024 08:53-0400 Body temperature 97.81 [degF] Marisol Boyce NP Work Phone: [facility] 09-26-2024 08:53-0400 Body weight 76.11 kg Marisol Aichholz GUEST RELATIONS OFFICER Work Phone: [facility] 09-26-2024 08:53-0400 Diastolic blood pressure 60 mm[Hg] Marisol Aichholz GUEST RELATIONS OFFICER Work Phone: [facility] 09-26-2024 08:53-0400 Heart rate 60 /min Marisol Aichholz G[employer] RELATIONS OFFICER Work Phone: [facility] 09-26-2024 08:53-0400 Respiratory rate 18 /min Marisol Aichholz G[employer]ST RELATIONS OFFICER Work Phone: [facility] 09-26-2024 08:53-0400 SaO2% (BldA) [Mass fraction] 98 % Mariosl Aichholz GUEST RELATIONS OFFICER Work Phone: [facility] 09-26-2024 08:53-0400 Systolic blood pressure 128 mm[Hg] Marisol Aichholz GUEST RELATIONS OFFICER Work Phone: [facility] 08-15-2024 10:37-0400 Body mass index (BMI) [Ratio] 22.43 kg/m2 Marisol Aichholz GUEST RELATIONS OFFICER Work Phone: [facility] 08-15-2024 10:37-0400 Body temperature 98.49 [degF] Marisol Aichholz GUEST RELATIONS OFFICER Work Phone: [facility] 08-15-2024 10:37-0400 Body weight 75.03 kg Marisol Aichholz GUEST RELATIONS OFFICER Work Phone: [facility] 08-15-2024 10:37-0400 Diastolic blood pressure 68 mm[Hg] Marisol Aichholz GUEST RELATIONS OFFICER Work Phone: [facility] 08-15-2024 10:37-0400 Heart rate 51 /min Marisol Aichholz GUEST RELATIONS OFFICER Work Phone: [facility] 08-15-2024 10:37-0400 Respiratory rate 18 /min Marisol Aichholz GUEST RELATIONS OFFICER Work Phone: [facility] 08-15-2024 10:37-0400 SaO2% (BldA) [Mass fraction] 96 % Marisol Chinoholz G[employer]ST RELATIONS OFFICER Work Phone: [facility] 08-15-2024 10:37-0400 Systolic blood pressure 108 mm[Hg] Marisol Medardohholz GUEST RELATIONS OFFICER Work Phone: [facility] 05-15-2024 09:26-0500 Body height 182.9 cm Marisol Aichholz GUEST RELATIONS OFFICER Work Phone: [facility] 05-15-2024 09:26-0500 Body mass index (BMI) [Ratio] 23.22 kg/m2 Marisol Aichholz GUEST RELATIONS OFFICER Work Phone: [facility] 05-15-2024 09:26-0500 Body temperature 98.1 [degF] Marisol Medardohholz GUEST RELATIONS OFFICER Work Phone: [facility] 05-15-2024 09:26-0500 Body weight 77.66 kg Marisol Medardohholz GUEST RELATIONS OFFICER Work Phone: [facility] 05-15-2024 09:26-0500 Diastolic blood pressure 62 mm[Hg] Marisol Medardohholz GUEST RELATIONS OFFICER Work Phone: [facility] 05-15-2024 09:26-0500 Heart rate 57 /min Marisol Medardohholz GUEST RELATIONS OFFICER Work Phone: [facility] 05-15-2024 09:26-0500 Respiratory rate 18 /min Marisol Chinoholz GUEST RELATIONS OFFICER Work Phone: [facility] 05-15-2024 09:26-0500 SaO2% (BldA) [Mass fraction] 98 % Marisol Aichholz GUEST RELATIONS OFFICER Work Phone: [facility] 05-15-2024 09:26-0500 Systolic blood pressure 140 mm[Hg] Marisol Aichholz GUEST RELATIONS OFFICER Work Phone: [facility] 04-04-2024 11:42-0500 Body height 182.9 cm Marlin MATAMOROS Work Phone: [facility] 04-04-2024 11:42-0500 Body mass index (BMI) [Ratio] 23.79 kg/m2 Marlin Koch [employer]BER [employer]ALLER[employer]ING PR[employer] OPERATOR Work Phone: [facility] 04-04-2024 11:42-0500 Body weight 79.56 kg Marlin Koch [employer]BER FALLER[employer]ING PR[employer] OPERATOR Work Phone: [facility] 04-04-2024 11:42-0500 Diastolic blood pressure 46 mm[Hg] Marlin Koch TIMBER FALLER[employer]ING PR[employer] OPERATOR Work Phone: [facility] 04-04-2024 11:42-0500 Heart rate 64 /min Marlin Koch TIMBER FALLER[employer]IMPING PR[employer] OPERATOR Work Phone: [facility] 04-04-2024 11:42-0500 Systolic blood pressure 131 mm[Hg] Marlin Koch TIMBER FALLER[employer]IMPING PR[employer] OPERATOR Work Phone: [facility] 03-05-2024 11:51-0500 Body height 182.9 cm Marlin Koch TIMBER FALLER[employer]IMPING PR[employer] OPERATOR Work Phone: [facility] 03-05-2024 11:51-0500 Body mass index (BMI) [Ratio] 23.46 kg/m2 Marlin Koch TIMBER FALLER[employer]IMPING PR[employer] OPERATOR Work Phone: [facility] 03-05-2024 11:51-0500 Body weight 78.47 kg Marlin Koch TIMBER FALLER[employer]IMPING PR[employer] OPERATOR Work Phone: [facility] 03-05-2024 11:51-0500 Diastolic blood pressure 52 mm[Hg] Marlin Koch TIMBER FALLER[employer]IMPING PRESS OPERATOR Work Phone: [facility] 03-05-2024 11:51-0500 Systolic blood pressure 135 mm[Hg] Marlin Koch TIMBER FALLER[employer]IMPING PRESS OPERATOR Work Phone: [facility] 02-15-2024 13:15-0500 Body height 182.9 cm Marisol Boyce NP Work Phone: [facility] 02-15-2024 13:15-0500 Body mass index (BMI) [Ratio] 23.57 kg/m2 Marisollaura Maganaholz GUEST RELATIONS OFFICER Work Phone: [facility] 02-15-2024 13:15-0500 Body temperature 98.49 [degF] Marisol Medardohholz GUEST RELATIONS OFFICER Work Phone: [facility] 02-15-2024 13:15-0500 Body weight 78.83 kg Marisol Medardohholz GUEST RELATIONS OFFICER Work Phone: [facility] 02-15-2024 13:15-0500 Diastolic blood pressure 64 mm[Hg] Marisol Aichholz GUEST RELATIONS OFFICER Work Phone: [facility] 02-15-2024 13:15-0500 Heart rate 51 /min Marisol Medardohholz GUEST RELATIONS OFFICER Work Phone: [facility] 02-15-2024 13:15-0500 Respiratory rate 19 /min Marisol Medardohholz GUEST RELATIONS OFFICER Work Phone: [facility] 02-15-2024 13:15-0500 SaO2% (BldA) [Mass fraction] 100 % Marisol Medardohholz GUEST RELATIONS OFFICER Work Phone: [facility] 02-15-2024 13:15-0500 Systolic blood pressure 112 mm[Hg] Marisol Medardohholz GUEST RELATIONS OFFICER Work Phone: [facility] 01-04-2024 09:05-0400 Body mass index (BMI) [Ratio] 23.41 kg/m2 Marisol Aichholz GUEST RELATIONS OFFICER Work Phone: [facility] 01-04-2024 09:05-0400 Body temperature 98.1 [degF] Marisol Aichholz GUEST RELATIONS OFFICER Work Phone: [facility] 01-04-2024 09:05-0400 Body weight 78.29 kg Marisol Medardohholz GUEST RELATIONS OFFICER Work Phone: [facility] 01-04-2024 09:05-0400 Diastolic blood pressure 78 mm[Hg] Marisol Medardohholz GUEST RELATIONS OFFICER Work Phone: [facility] 01-04-2024 09:05-0400 Heart rate 79 /min Marisol Aichholz GUEST RELATIONS OFFICER Work Phone: [facility] 01-04-2024 09:05-0400 Respiratory rate 19 /min Marisol Aichholz GUEST RELATIONS OFFICER Work Phone: [facility] 01-04-2024 09:05-0400 SaO2% (BldA) [Mass fraction] 97 % Marisol Aichholz GUEST RELATIONS OFFICER Work Phone: [facility] 01-04-2024 09:05-0400 Systolic blood pressure 124 mm[Hg] Marisol Aichholz GUEST RELATIONS OFFICER Work Phone: [facility] 11-22-2023 11:27-0400 Body height 182.9 cm Marisol Aichholz GUEST RELATIONS OFFICER Work Phone: [facility] [facility]-22-2023 11:27-0400 Body mass index (BMI) [Ratio] 23.16 kg/m2 Marisol Aichholz GUEST RELATIONS OFFICER Work Phone: [facility] 11-22-2023 11:27-0400 Body temperature 97.81 [degF] Marisol Aichholz GUEST RELATIONS OFFICER Work Phone: [facility] 11-22-2023 11:27-0400 Body weight 77.47 kg Marisol Aichholz GUEST RELATIONS OFFICER Work Phone: [facility] 11-22-2023 11:27-0400 Diastolic blood pressure 64 mm[Hg] Marisol Aichholz GUEST RELATIONS OFFICER Work Phone: [facility] 11-22-2023 11:27-0400 Heart rate 56 /min Marisol Aichholz GUEST RELATIONS OFFICER Work Phone: [facility] 11-22-2023 11:27-0400 Respiratory rate 18 /min Marisol Aichholz GUEST RELATIONS OFFICER Work Phone: [facility] 11-22-2023 11:27-0400 SaO2% (BldA) [Mass fraction] 96 % Marisol Carli GUEST RELATIONS OFFICER Work Phone: [facility] 11-22-2023 11:27-0400 Systolic blood pressure 98 mm[Hg] Marisol Carli GUEST RELATIONS OFFICER Work Phone: [facility] 07-11-2023 13:56-0400 Body temperature 98.06 [degF] YAMILEX EUGENIO [facility] 07-11-2023 13:56-0400 Diastolic blood pressure 71 mm[Hg] YAMILEX EUGENIO [facility] 07-11-2023 13:56-0400 Heart rate 67 /min YAMILEX EUGENIO [facility] 07-11-2023 13:56-0400 Respiratory rate 16 /min YAMILEX EUGENIO [facility] 07-11-2023 13:56-0400 Systolic blood pressure 135 mm[Hg] YAMILEX EUGENIO [facility] 06-18-2022 09:44-0400 Blood Pressure Location Deja Lue [facility] 06-18-2022 09:44-0400 Diastolic blood pressure 67 mm[Hg] Deja Lue [facility] 06-18-2022 09:44-0400 Heart rate 87 /min Deja Lue [facility] 06-18-2022 09:44-0400 Systolic blood pressure 137 mm[Hg] Deja Lue [facility] Encounters Encounter Date Encounter Type Care Provider Facility Start: 10-24-2024 End: 10-25-2024 Refill Marisol Aichholz GUEST RELATIONS OFFICER Work Phone: [facility] Comment on above: Mixed hyperlipidemia (Primary Dx) Start: 10-09-2024 End: 10-09-2024 ambulatory EHAB [facility] Start: 10-03-2024 End: 10-03-2024 Refill Marisol Aichholz GUEST RELATIONS OFFICER Work Phone: [facility] Comment on above: PAD (peripheral christianne ry disease) (Primary Dx); Paroxysmal atrial fibrillation (HCC) Start: 09-26-2024 End: 09-26-2024 Bamboo flowsheet Marisol Aichholz GUEST RELATIONS OFFICER Work Phone: [facility] Start: 09-26-2024 End: 09-26-2024 Bamboo flowsheet Marisol Aichholz GUEST RELATIONS OFFICER Work Phone: [facility] Start: 09-26-2024 End: 09-26-2024 Telephone encounter Marisol Aichholz GUEST RELATIONS OFFICER Work Phone: [facility] Start: 09-26-2024 End: 09-26-2024 Office outpatient visit 25 minutes Marisol Aichholz GUEST RELATIONS OFFICER Work Phone: [facility] Comment on above: Dizziness and giddin ess (Primary Dx); Pulmonary hypertension, unspecified (HCC); Primary hypertension ; Riley's esophagus with dysplasia; Type 2 diabetes mellitus without complication, with long-term current use of insulin (HCC) Start: 09-26-2024 End: 09-26-2024 ambulatory MARISOL AICHHOLZ Not Available Start: 08-15-2024 End: 08-15-2024 Bamboo flowsheet Marisol Aichholz GUEST RELATIONS OFFICER Work Phone: [facility] Start: 08-15-2024 End: 08-15-2024 Bamboo flowsheet Marisol Aichholz GUEST RELATIONS OFFICER Work Phone: [facility] Start: 08-15-2024 End: 08-15-2024 Patient encounter procedure Marisol Aichholz GUEST RELATIONS OFFICER Work Phone: [facility] Comment on above: Encounter for subseq uent annual wellness visit (AWV) in Medicare patient (Primary Dx); Centrilobular emphysema ([facility]/HCC); Paroxysmal atrial fibrillation (CMS/HCC); Bilateral carotid artery disease, unspecified type ([facility]/HCC); Primary hypertension ([facility]); Type 2 diabetes mellitus without complication, with long-term current use of insulin; Type 2 diabetes mellitus with other specified complication, with long-term current use of insulin; Mixed hyperlipidemia ([facility]); Dizziness and giddiness Start: 08-15-2024 End: 08-15-2024 ambulatory MARISOL AICHHOLZ Not Available Start: 08-10-2024 End: 08-10-2024 Refill Marisol Aichholz GUEST RELATIONS OFFICER Work Phone: [facility] Comment on above: Type 2 diabetes maddie itus without complication, with long-term current use of insulin Start: 07-18-2024 End: 07-18-2024 ambulatory Deja Perez Facility:[facility] Start: 07-11-2024 End: 07-11-2024 Clinisync Result Encounter Marisol Aichholz GUEST RELATIONS OFFICER Work Phone: [facility] External Department Unsolicited Start: 07-11-2024 End: 07-11-2024 Clinisync Result Encounter Marisol Aichholz GUEST RELATIONS OFFICER Work Phone: [facility] External Department Unsolicited Start: 07-11-2024 End: 07-11-2024 Lab Drop off YAMILEX ARMSTRONG [facility] Start: 07-11-2024 End: 07-11-2024 ambulatory Fiona Beaver Facility:[facility] Start: 07-05-2024 End: 07-05-2024 Refill Marisol Aichholz GUEST RELATIONS OFFICER Work Phone: [facility] Comment on above: Benign prostatic hyp erplasia with lower urinary tract symptoms, symptom details unspecified (Primary Dx) Start: 06-20-2024 End: 06-20-2024 Refill Marisol Aichholz GUEST RELATIONS OFFICER Work Phone: [facility] Comment on above: Riley's esophagus with dysplasia (Primary Dx) Start: 05-15-2024 End: 05-15-2024 Bamboo flowsheet Marisol Aichholz GUEST RELATIONS OFFICER Work Phone: [facility] Start: 05-15-2024 End: 05-15-2024 Bamboo flowsheet Marisol Aichholz GUEST RELATIONS OFFICER Work Phone: [facility] Start: 05-15-2024 End: 05-15-2024 Office outpatient visit 25 minutes Marisol Aichholz GUEST RELATIONS OFFICER Work Phone: 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 (CMS/HCC); Primary hypertension (CMS/HCC); PAD (peripheral artery disease) (CMS/HCC); Iron deficiency anemia, unspecified iron deficiency anemia type; Mixed hyperlipidemia (CMS/HCC); Primary insomnia Start: 05-15-2024 End: 05-15-2024 ambulatory MARISOL AICHHOLZ Not Available Start: 05-13-2024 End: 05-13-2024 Refill Marisol Aichholz GUEST RELATIONS OFFICER Work Phone: [facility] Comment on above: Type 2 diabetes maddie itus without complication, with long-term current use of insulin (CMS/HCC) Start: 04-18-2024 End: 04-18-2024 Telephone encounter Fiona Miguel CMA [facility] Start: 04-16-2024 End: 04-16-2024 Orders Only Sabino Mauricio DO [facility] Start: 04-11-2024 End: 04-11-2024 ambulatory Sabino Mauricio [facility] Work Phone: Start: 04-11-2024 End: 04-11-2024 Departed Referred Sabino Mauricio DO Work Phone: [facility] Start: 04-04-2024 End: 04-04-2024 Office outpatient visit 15 minutes Marlin Koch TIMBER FALLER-[employer]ING PRESS OPERATOR Work Phone: [facility] Comment on above: Encounter for colono scopy due to history of colonic polyp (Primary Dx); 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 Start: 04-04-2024 End: 04-04-2024 Refill Marisol Boyce NP Work Phone: [facility] Comment on above: Type 2 diabetes maddie itus without complication, with long-term current use of insulin ([facility]) (Primary Dx) Start: 03-29-2024 End: 03-29-2024 Telephone encounter Marisol Boyce NP Work Phone: [facility] Start: 03-26-2024 End: 03-26-2024 ambulatory [facility] Start: 03-22-2024 End: 03-22-2024 Clinical Support Pm 30 [facility] Re[facility] Comment on above: Arrived Start: 03-19-2024 End: 03-19-2024 Clinical Support Pmh 30 Cardiac Rehab [facility] Start: 03-15-2024 End: 03-15-2024 ambulatory [facility] Start: 03-14-2024 End: 03-14-2024 ambulatory EHAB [facility] Start: 03-13-2024 End: 03-13-2024 Clinisync Result Encounter Marisol Boyce NP Work Phone: [facility] External Department Unsolicited Start: 03-13-2024 End: 03-13-2024 Clinisync Result Encounter Marisol Boyce GUEST RELATIONS OFFICER Work Phone: [facility] External Department Unsolicited Start: 03-12-2024 End: 03-12-2024 ambulatory AB [facility] Start: 03-08-2024 End: 03-08-2024 ambulatory AB [facility] Start: 03-07-2024 End: 03-07-2024 ambulatory AB [facility] Start: 03-05-2024 End: 03-05-2024 Office outpatient new 30 minutes Marlin JHACRIMPING PRESS OPERATOR Work Phone: [facility] Comment on above: Encounter for colono scopy due to history of colonic polyp (Primary Dx); 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 Start: 03-05-2024 End: 03-05-2024 ambulatory [facility] Start: 02-22-2024 End: 02-22-2024 ambulatory AB [facility] Start: 02-20-2024 End: 02-20-2024 ambulatory AB [facility] Start: 02-16-2024 End: 02-16-2024 ambulatory AB [facility] Start: 02-15-2024 End: 02-15-2024 Bamboo flowsheet Marisol Boyce GUEST RELATIONS OFFICER Work Phone: [facility] Start: 02-15-2024 End: 02-15-2024 Bamboo flowsheet Marisol Boyce GUEST RELATIONS OFFICER Work Phone: [facility] Start: 02-15-2024 End: 02-15-2024 Office outpatient visit 25 minutes Marisol Boyce GUEST RELATIONS OFFICER Work Phone: [facility] Comment on above: Type 2 diabetes maddie itus without complication, with long-term current use of insulin ([facility]/HCC) (Primary Dx); Primary hypertension (CMS/HCC); PAD (peripheral artery disease) (CMS/HCC); 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 (CMS/HCC); Riley's esophagus with dysplasia; Erectile dysfunction due to diseases classified elsewhere; Benign prostatic hyperplasia with lower urinary tract symptoms, symptom details unspecified; Colon cancer screening; Tubulovillous adenoma of colon; Lumbosacral spondylosis without myelopathy Start: 02-15-2024 End: 02-15-2024 ambulatory MARISOL BOYCE Not Available Start: 02-15-2024 End: 02-15-2024 ambulatory EHAB [facility] Start: 02-13-2024 End: 02-13-2024 ambulatory EHAB [facility] Start: 02-09-2024 End: 02-09-2024 ambulatory EHAB [facility] Start: 02-08-2024 End: 02-08-2024 ambulatory EHAB A [facility] Start: 02-06-2024 End: 02-06-2024 ambulatory EHAB [facility] Start: 02-02-2024 End: 02-02-2024 Telephone encounter Marisol Boyce GUEST RELATIONS OFFICER Work Phone: [facility] Start: 02-02-2024 End: 02-02-2024 ambulatory EHAB [facility] Start: 02-01-2024 End: 02-01-2024 ambulatory EHAB A [facility] Start: 01-30-2024 End: 01-30-2024 ambulatory EHAB [facility] Start: 01-26-2024 End: 01-26-2024 ambulatory EHAB A [facility] Start: 01-25-2024 End: 01-25-2024 ambulatory EHAB A [facility] Start: 01-23-2024 End: 01-23-2024 ambulatory EHAB [facility] Start: 01-19-2024 End: 01-19-2024 ambulatory EHAB [facility] Start: 01-18-2024 End: 01-18-2024 ambulatory EHAB [facility] Start: 01-16-2024 End: 01-16-2024 ambulatory AB [facility] Start: 01-12-2024 End: 01-12-2024 ambulatory AB [facility] Comment on above: Arrived Start: 01-11-2024 End: 01-11-2024 [facility] Start: 01-11-2024 End: 01-11-2024 ambulatory AB [facility] Start: 01-09-2024 End: 01-09-2024 ambulatory AB [facility] Start: 01-05-2024 End: 01-05-2024 ambulatory AB [facility] Start: 01-04-2024 End: 01-04-2024 Bamboo flowsheet Marisol Boyce GUEST RELATIONS OFFICER Work Phone: [facility] Start: 01-04-2024 End: 01-04-2024 Bamboo flowsheet Marisol Boyce GUEST RELATIONS OFFICER Work Phone: [facility] Start: 01-04-2024 End: 01-04-2024 ambulatory AB [facility] Start: 01-04-2024 End: 01-04-2024 Office outpatient visit 25 minutes Marisol Boyce GUEST RELATIONS OFFICER Work Phone: [facility] Comment on above: Type 2 diabetes maddie itus without complication, with long-term current use of insulin (CMS/HCC) (Primary Dx); Chronic thoracic back pain, unspecified back pain laterality; Primary hypertension (CMS/HCC) Start: 01-04-2024 End: 01-04-2024 ambulatory MARISOL BOYCE Not Available Start: 01-02-2024 End: 01-02-2024 ambulatory EHAB [facility] Start: 12-29-2023 End: 12-29-2023 ambulatory AB [facility] Start: 12-28-2023 End: 12-28-2023 ambulatory AB [facility] Start: 12-26-2023 End: 12-26-2023 ambulatory AB [facility] Start: 12-22-2023 End: 12-22-2023 ambulatory AB [facility] Start: 12-21-2023 End: 12-21-2023 Refill Marisol Boyce NP Work Phone: [facility] Comment on above: Benign prostatic hyp erplasia with lower urinary tract symptoms, symptom details unspecified (Primary Dx) Start: 12-21-2023 End: 12-21-2023 ambulatory [facility] Start: 12-19-2023 End: 12-19-2023 ambulatory AB [facility] Start: 12-16-2023 End: 12-16-2023 ambulatory [facility] Start: 12-07-2023 End: 12-07-2023 ambulatory [facility] Start: 11-29-2023 End: 11-29-2023 External Result Encounter Marisol Boyce NP Work Phone: [facility] External [facility] Unsolicited Start: 11-29-2023 End: 11-29-2023 External Result Encounter Marisol Boyce NP Work Phone: [facility] External Department Unsolicited Start: 11-29-2023 End: 11-29-2023 [facility] Start: 11-29-2023 End: 11-29-2023 ambulatory AB [facility] Start: 11-22-2023 End: 11-22-2023 Bamboo flowsheet Marisol Boyce NP Work Phone: [facility] Start: 11-22-2023 End: 11-22-2023 Bamboo flowsheet Marisol Boyce GUEST RELATIONS OFFICER Work Phone: [facility] Start: 11-22-2023 End: 11-22-2023 Office outpatient visit 15 minutes Marisol Boyce GUEST RELATIONS OFFICER Work Phone: [facility] Comment on above: Coronary artery dise ase involving sun'aq coronary artery of sun'aq heart without angina pectoris (CMS/HCC) (Primary Dx); Other thrombophilia (CMS/HCC); Paroxysmal atrial fibrillation (CMS/HCC); Nonrheumatic mitral valve regurgitation; Primary hypertension (CMS/HCC); 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) Start: 11-22-2023 End: 11-22-2023 ambulatory MARISOL BOYCE Not Available Start: 10-11-2023 End: 10-11-2023 ambulatory [facility] Start: 10-11-2023 End: 10-11-2023 ambulatory MARISOL CARLI Not Available Start: 07-11-2023 End: 07-11-2023 Patient encounter procedure YAMILEX ARMSTRONG [facility] Start: 07-06-2023 End: 07-06-2023 ambulatory [facility] Emmanuel [facility] Start: 06-07-2023 Patient encounter procedure Marisol Boyce GUEST RELATIONS OFFICER Work Phone: [facility] Start: 05-05-2023 Refill Marisol Boyce GUEST RELATIONS OFFICER Work Phone: [facility] Start: 05-04-2023 External Result Encounter Marisol Boyce GUEST RELATIONS OFFICER Work Phone: [facility] External Department Unsolicited Start: 05-04-2023 External Result Encounter Marisol Boyce GUEST RELATIONS OFFICER Work Phone: [facility] External Department Unsolicited Start: 05-04-2023 End: 05-04-2023 ambulatory [facility] Start: 06-18-2022 End: 06-18-2022 Patient encounter procedure Deja StatonJose Juan Jaegeremmanuel [facility] Start: 06-11-2022 End: 06-12-2022 ambulatory [employer]ING [employer] OPERATOR MARISOL BOYCE Facility:[facility] Start: 01-06-2022 End: 01-07-2022 ambulatory [employer]ING PR[employer] OPERATOR MARISOL CARLI Facility:[facility] Start: 01-05-2022 End: 01-06-2022 ambulatory CR[employer]ING PR[employer] OPERATOR MARISOL BOYCE Facility:[facility] Start: 10-14-2021 End: 10-15-2021 ambulatory DWAIN RAY Facility:[facility] Start: 06-18-2021 End: 06-18-2021 Patient encounter procedure Carlitos MAYA [facility] Procedures Date Procedure Procedure Detail Performing Clinician Start: 07-11-2024 [facility] CBC W/ AUTO DIFF L abhinav Carli GUEST RELATIONS OFFICER Work Phone: Start: 04-11-2024 Colonoscopy Sabino eller DO Work Phone: Start: 04-04-2024 Follow-up visit Follow-up MARLIN KOCH Start: 03-13-2024 MLR HEMOGLOBIN A1C Marisol Carli GUEST RELATIONS OFFICER Work Phone: Start: 11-29-2023 Basic metabolic pane l calcium total Marisol Carli GUEST RELATIONS OFFICER Work Phone: Start: 05-04-2023 Comprehensive metabo lic panel Marisol Carli GUEST RELATIONS OFFICER Work Phone: Start: 05-04-2023 Urnls dip stick/tabl et rgnt non-auto w/o micrscp Marisol Carli GUEST RELATIONS OFFICER Work Phone: Start: 02-26-2020 Iliofemoral vein anita nt (physical object) Carlitos MAYA Start: 08-03-2019 Injection of sacroil iac joint Carlitos MAYA Start: 10-26-2018 Colonoscopy Marisol mann GUEST RELATIONS OFFICER Work Phone: Cataract (disorder) Carlitos HAMM Cholecystectomy Carlitos MAYA Placement of stent i n cardiac conduit Carlitos MAYA Prosthetic arthropla sty of shoulder Carlitos MAYA Plan of Treatment Date Care Activity Detail Author Start: 04-11-2029 Screening for malignant neoplasm of colon [facility] Start: 04-11-2027 Screening for malignant neoplasm of colon Colonoscopy [facility] Start: 09-26-2026 Glaucoma screening Diabetes: Retinopathy Screening [facility] Start: 08-21-2025 End: 08-21-2025 Patient encounter procedure 08/21/2025 10:00 AM EDT Office Visit [facility] [address] [place] [address] Marisol Boyce, CATALINA [address] [place] [address] [facility] Start: 08-15-2025 Medicare Annual Wellness (AWV) Medicare Annual Wellness (AWV) [facility] Start: 07-11-2025 Urine screening for protein Diabetes: Urine Protein Screening [facility] Start: 04-04-2025 Tobacco Screening Tobacco Screening [facility] Start: 03-05-2025 Tobacco Screening Tobacco Screening [facility] Start: 11-29-2024 End: 11-29-2024 Patient encounter procedure [facility] Start: 11-26-2024 Influenza vaccination Influenza Vaccine (#1) [facility] Start: 10-10-2024 Hemoglobin A1c measurement Diabetes: Hemoglobin A1C [facility] Start: 10-06-2024 Urine screening for protein Diabetes: Urine Protein Screening [facility] Start: 09-26-2024 End: 09-26-2024 Patient encounter procedure [facility] Comment on above: Dizziness and giddiness (Primary Dx); Pulmonary hypertension, unspecified (HCC); Primary hypertension Start: 08-15-2024 End: 08-15-2024 Patient encounter procedure [facility] Comment on above: Encounter for subsequent annual wellness visit (AWV) in Medicare patient (Primary Dx); CORNELIA (obstructive sleep apnea); Centrilobular emphysema (CMS/HCC); Paroxysmal atrial fibrillation (CMS/HCC); Bilateral carotid artery disease, unspecified type ([facility]/HCC); Primary hypertension ([facility]/HCC); Type 2 diabetes mellitus without complication, with long-term current use of insulin; Type 2 diabetes mellitus with other specified complication, with long-term current use of insulin; Mixed hyperlipidemia (CMS/HCC) Start: 06-12-2024 End: 05-15-2025 CBC W Auto Differential panel - Blood CBC and differential Lab Routine Paroxysmal atrial fibrillation (CMS/HCC) Iron deficiency anemia, unspecified iron deficiency anemia type Expected: 06/12/2024 (Approximate), Expires: 05/15/2025 [facility] Work Phone: Comment on above: Expected: 06/12/2024 (Approximate), Expi res: 05/15/2025 Start: 06-12-2024 End: 05-15-2025 Comprehensive metabolic 2000 panel - Serum or Plasma Comprehensive metabolic panel Lab Routine Type 2 diabetes mellitus with other specified complication ([facility]/HCC) 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 ([facility]/HCC) Primary hypertension ([facility]/HCC) Mixed hyperlipidemia ([facility]/HCC) Expected: 06/12/2024 (Approximate), Expires: 05/15/2025 [facility] Comment on above: Expected: 06/12/2024 (Approximate), Expi res: 05/15/2025 Start: 06-12-2024 End: 05-15-2025 Hemoglobin A1c/Hemoglobin.total in Blood Hemoglobin A1c Lab Routine Type 2 diabetes mellitus without complication, with long-term current use of insulin ([facility]/HCC) Expected: 06/12/2024 (Approximate), Expires: 05/15/2025 [facility] Comment on above: Expected: 06/12/2024 (Approximate), Expi res: 05/15/2025 Start: 06-12-2024 End: 05-15-2025 Iron and Iron binding capacity panel - Serum or Plasma Iron level Lab Routine Iron deficiency anemia, unspecified iron deficiency anemia type Expected: 06/12/2024 (Approximate), Expires: 05/15/2025 [facility] Comment on above: Expected: 06/12/2024 (Approximate), Expi res: 05/15/2025 Start: 06-12-2024 End: 05-15-2025 Lipid 1996 panel - Serum or Plasma Lipid panel Lab Routine Mixed hyperlipidemia (CMS/HCC) Expected: 06/12/2024 (Approximate), Expires: 05/15/2025 [facility] Comment on above: Expected: 06/12/2024 (Approximate), Expi res: 05/15/2025 Start: 06-12-2024 End: 05-15-2025 Microalbumin/Creatinine panel in random Urine Microalbumin / creatinine, urine ratio Lab Routine Primary hypertension (CMS/HCC) Type 2 diabetes mellitus without complication, with long-term current use of insulin (CMS/HCC) Expected: 06/12/2024 (Approximate), Expires: 05/15/2025 [facility] Comment on above: Expected: 06/12/2024 (Approximate), Expi res: 05/15/2025 Start: 06-12-2024 End: 05-15-2025 Urinalysis complete panel - Urine Urinalysis with refl ex microscopic (clean catch) Lab Routine Primary hypertension (CMS/HCC) Type 2 diabetes mellitus without complication, with long-term current use of insulin (CMS/HCC) Expected: 06/12/2024 (Approximate), Expires: 05/15/2025 [facility] Comment on above: Expected: 06/12/2024 (Approximate), Expi res: 05/15/2025 Start: 06-11-2024 Hemoglobin A1c measurement Diabetes: Hemoglobin A1C [facility] Start: 06-06-2024 Medicare Annual Wellness (AWV) Medicare Annual Wellness (AWV) [facility] Start: 05-15-2024 End: 05-15-2024 Patient encounter procedure [facility] Comment on above: 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 (CMS/HCC) (Primary Dx); Centrilobular emphysema (CMS/HCC); Type 2 diabetes mellitus with other specified complication ([facility]/HCC); Erectile dysfunction due to diseases classified elsewhere; Type 2 diabetes mellitus 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 ([facility]/HCC); Paroxysmal atrial fibrillation ([facility]/HCC); Primary hypertension ([facility]/HCC); PAD (peripheral artery disease) ([facility]/HCC); Type 2 diabetes mellitus without complication, with long-term current use of insulin ([facility]/HCC); Iron deficiency anemia, unspecified iron deficiency anemia type; Mixed hyperlipidemia ([facility]/HCC) Start: 05-04-2024 Urine screening for protein Diabetes: Urine Protein Screening [facility] Start: 04-03-2024 End: 04-03-2024 Patient encounter procedure 04/03/2024 10:30 AM EST Office Visit [facility] General Surgery [address] [place] [address] Marlin Koch APRN-CRIMPING PRESS OPERATOR [address] [place] [address] [facility] General Surgery Start: 03-26-2024 End: 03-26-2024 Clinical Support 03/26/2024 10:30 AM EST Clinical Support [facility] [address] [place] [address] [facility] Start: 03-22-2024 End: 03-22-2024 Clinical Support 03/22/2024 10:30 AM EST Clinical Support [facility] [address] [place] [address] [facility] Start: 03-12-2024 End: 03-12-2024 Clinical Support 03/12/2024 10:30 AM EST Clinical Support [facility] [address] [place] [address] [facility] Start: 03-08-2024 End: 03-08-2024 Clinical Support 03/08/2024 10:30 AM EST Clinical Support [facility] [address] [place] [address] [facility] Start: 03-07-2024 End: 03-07-2024 Clinical Support 03/07/2024 10:30 AM EST Clinical Support [facility] [address] [place] [address] [facility] Start: 03-05-2024 End: 03-05-2024 Patient encounter procedure 03/05/2024 11:45 AM EST Office Visit [facility] General Surgery [address] [place] [address] Marlin Koch, TIMBER FALLER-CRIMPING PRESS OPERATOR [address] [place] [address] [facility] General Surgery Start: 03-05-2024 End: 03-05-2024 Clinical Support 03/05/2024 10:30 AM EST Clinical Support [facility] [address] [place] [address] [facility] Start: 03-01-2024 End: 03-01-2024 Clinical Support 03/01/2024 10:30 AM EST Clinical Support [facility] [address] [place] [address] [facility] Start: 02-29-2024 End: 02-14-2025 Hemoglobin A1c/Hemoglobin.total in Blood Hemoglobin A1c Lab Routine Type 2 diabetes mellitus without complication, with long-term current use of insulin ([facility]) Expected: 02/29/2024 (Approximate), Expires: 02/14/2025 [facility] Work Phone: Comment on above: Expected: 02/29/2024 (Approximate), Expi res: 02/14/2025 Start: 02-29-2024 End: 02-29-2024 Clinical Support 02/29/2024 10:30 AM EST Clinical Support [facility] [address] [place] [address] [facility] Start: 02-28-2024 Hemoglobin A1c measurement Diabetes: Hemoglobin A1C [facility] Start: 02-27-2024 End: 02-27-2024 Clinical Support 02/27/2024 10:30 AM EST Clinical Support [facility] [address] [place] [address] [facility] Start: 02-22-2024 End: 02-22-2024 Clinical Support 02/22/2024 10:30 AM EST Clinical Support [facility] [address] [place] [address] [facility] Start: 02-20-2024 End: 02-20-2024 Clinical Support 02/20/2024 10:30 AM EST Clinical Support [facility] [address] [place] [address] [facility] Start: 02-16-2024 End: 02-16-2024 Clinical Support 02/16/2024 10:30 AM EST Clinical Support [facility] [address] [place] [address] [facility] Start: 02-15-2024 End: 02-15-2024 Patient encounter procedure [facility] Comment on above: Primary hypertension (CMS/HCC) (Primary Dx); PAD (peripheral artery disease) (CMS/HCC); 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 (CMS/HCC); Riley's esophagus with dysplasia; Erectile dysfunction due to diseases classified elsewhere; Benign prostatic hyperplasia with lower urinary tract symptoms, symptom details unspecified; Type 2 diabetes mellitus without complication, with long-term current use of insulin (CMS/HCC); Colon cancer screening Start: 02-15-2024 End: 02-15-2024 Clinical Support 02/15/2024 10:30 AM EST Clinical Support [facility] [address] [place] [address] [facility] Start: 02-13-2024 End: 02-13-2024 Clinical Support 02/13/2024 10:30 AM EST Clinical Support [facility] [address] [place] [address] [facility] Start: 02-09-2024 End: 02-09-2024 Clinical Support 02/09/2024 10:30 AM EST Clinical Support [facility] [address] [place] [address] [facility] Start: 02-08-2024 End: 02-08-2024 Clinical Support 02/08/2024 10:30 AM EST Clinical Support [facility] [address] [place] [address] [facility] Start: 02-06-2024 End: 02-06-2024 Clinical Support 02/06/2024 10:30 AM EST Clinical Support [facility] [address] [place] [address] [facility] Start: 02-02-2024 End: 02-02-2024 Clinical Support 02/02/2024 10:30 AM EST Clinical Support [facility] [address] [place] [address] [facility] Start: 02-01-2024 End: 02-01-2024 Clinical Support 02/01/2024 10:30 AM EST Clinical Support [facility] [address] [place] [address] [facility] Start: 01-30-2024 End: 01-30-2024 Clinical Support 01/30/2024 10:30 AM EST Clinical Support [facility] [address] [place] [address] [facility] Start: 01-26-2024 End: 01-26-2024 Clinical Support 01/26/2024 10:30 AM EDT Clinical Support [facility] [address] [place] [address] [facility] Start: 01-25-2024 End: 01-25-2024 Clinical Support 01/25/2024 10:30 AM EDT Clinical Support [facility] [address] [place] [address] [facility] Start: 01-23-2024 End: 01-23-2024 Clinical Support 01/23/2024 10:30 AM EDT Clinical Support [facility] [address] [place] [address] [facility] Start: 01-19-2024 End: 01-19-2024 Clinical Support 01/19/2024 10:30 AM EDT Clinical Support [facility] [address] [place] [address] [facility] Start: 01-18-2024 End: 01-18-2024 Clinical Support 01/18/2024 10:30 AM EDT Clinical Support [facility] [address] [facility] [address] [facility] Start: 01-16-2024 End: 01-16-2024 Clinical Support 01/16/2024 10:30 AM EDT Clinical Support [facility] [address] [place] [address] [facility] Start: 01-12-2024 End: 01-12-2024 Clinical Support 01/12/2024 10:30 AM EDT Clinical Support [facility] [address] [place] [address] [facility] Start: 01-11-2024 End: 01-11-2024 Clinical Support 01/11/2024 10:30 AM EDT Clinical Support [facility] [address] [place] [address] [facility] Start: 01-09-2024 End: 01-09-2024 Clinical Support 01/09/2024 10:30 AM EDT Clinical Support [facility] [address] [place] [address] [facility] Start: 01-05-2024 End: 01-05-2024 Clinical Support 01/05/2024 10:30 AM EDT Clinical Support [facility] [address] [place] [address] [facility] Start: 01-04-2024 End: 01-03-2025 XR Thoracic spine 3 Views XR thoracic spine 3 views Imaging Routine Chronic thoracic back pain, unspecified back pain laterality Expected: 01/04/2024, Expires: 01/03/2025 [facility] Work Phone: Comment on above: Expected: 01/04/2024, Expires: Start: 01-04-2024 End: 01-04-2024 Patient encounter procedure [facility] Comment on above: Arrived Start: 01-03-2024 Hemoglobin A1c measurement Diabetes: Hemoglobin A1C [facility] Start: 01-02-2024 End: 01-02-2024 Clinical Support 01/02/2024 10:30 AM EDT Clinical Support [facility] [address] [place] [address] [facility] Start: 12-29-2023 End: 12-29-2023 Clinical Support 12/29/2023 10:30 AM EDT Clinical Support [facility] [address] [place] [address] [facility] Start: 12-28-2023 End: 12-28-2023 Clinical Support 12/28/2023 10:30 AM EDT Clinical Support [facility] [address] [place] [address] [facility] Start: 12-26-2023 End: 12-26-2023 Clinical Support 12/26/2023 10:30 AM EDT Clinical Support [facility] [address] [place] [address] [facility] Start: 12-22-2023 End: 12-22-2023 Clinical Support 12/22/2023 10:30 AM EDT Clinical Support [facility] [address] [place] [address] [facility] Start: 12-21-2023 End: 12-21-2023 Clinical Support 12/21/2023 10:30 AM EDT Clinical Support [facility] [address] [place] [address] [facility] Start: 11-28-2023 Glaucoma screening Diabetes: Retinopathy Screening [facility] Comment on above: Postponed from 1956 (Other Patient Reasons) Start: 11-27-2023 COVID-19 Vaccine ( season) COVID-19 Vaccine () [facility] Start: 11-27-2023 COVID-19 Vaccine () COVID-19 Vaccine () [facility] Start: 11-27-2023 Influenza vaccination [facility] Start: 11-22-2023 End: 11-22-2023 Patient encounter procedure 11/22/2023 11:20 AM EDT [facility] [address] [place] [address] Marisol Boyce, CATAL[place] [address] [place] [address] Other thrombophilia (CMS/HCC) [facility] Comment on above: Other thrombophilia (CMS/HCC) Start: 10-27-2023 Screening for malignant neoplasm of colon [facility] Start: 08-02-2023 Hemoglobin A1c measurement Diabetes: Hemoglobin A1C [facility] Start: 07-23-2023 Adult BMI Screening Adult BMI Screening [facility] Start: 07-23-2023 Tobacco Screening Tobacco Screening [facility] Start: 06-24-2023 Screening for malignant neoplasm of colon FOBT [facility] Start: 06-12-2023 Urine screening for protein Diabetes: Urine Protein Screening [facility] Start: 06-07-2023 End: 06-07-2023 Patient encounter procedure 06/07/2023 10:30 AM EDT Office [facility] [address] [place] [phone] Marisol Boyce, GUEST RELATIONS OFFICER [address] [place] [address] [facility] Start: 03-14-2023 Hemoglobin A1c measurement Diabetes: Hemoglobin A1C [facility] Start: 10-26-2021 Screening for malignant neoplasm of colon Colonoscopy [facility] Start: 05-07-2014 Administration of varicella zoster vaccine Zoster (Shingles) Vaccine (2 of 3) [facility] Start: 09-14-2011 Abdominal aortic aneurysm screening Abdominal Aortic Aneurysm (AAA) Screen [facility] Start: 09-14-2011 Fall Risk Screening Fall Risk Screening [facility] Start: 1965 DTaP,Tdap and Td Vaccines (1 - Tdap) DTaP,Tdap and Td Vaccines (1 - Tdap) [facility] Start: 1958 Depression Screening Depression Screening [facility] Start: 1956 Glaucoma screening Diabetes: Retinopathy Screening [facility] Start: 1946 Medicare Annual Wellness (AWV) Medicare Annual Wellness (AWV) [facility] Start: 1946 Medicare Annual Wellness Visit Medicare Annual Wellness Visit [facility] Start: 1946 Screening for malignant neoplasm of colon [facility] Start: 1946 Tobacco Counseling Tobacco Counseling [facility] Cardiopulmonary rehabilitation C ardiopulmonary rehabilitation Cardiac Services [...] dysplasia 1 Occurrences starting 03/05/2024 until 03/05/2025 [facility] Comment on above: 1 Occurrences starting 03/05/2024 until 03/05/2025 Immunizations Immunization Date Immunization Notes Care Provider Roma espinosa 02-09-2024 influenza, high dose seasonal, preservative-free Marisol Aichholz GUEST RELATIONS OFFICER Work Phone: [facility] 02-09-2024 influenza virus vacc ine, unspecified formulation [facility] 02-15-2023 influenza virus vacc ine, unspecified formulation Marisol Aichholz GUEST RELATIONS OFFICER Work Phone: [facility] 02-15-2023 pneumococcal polysaccharide vaccine, 23 valent Marisol Aichholz GUEST RELATIONS OFFICER Work Phone: [facility] 01-31-2023 influenza virus vacc ine, unspecified formulation YAMILEX ARMSTRONG [facility] 01-31-2023 Influenza, High-dose Seasonal, Quadrivalent, Preservative Free Marisol Aichholz GUEST RELATIONS OFFICER Work Phone: [facility] 03-11-2022 SARS-CoV-2 (COVID-19 ) [id number] Deja Luemmanuel [facility] 02-12-2022 influenza virus vacc ine, unspecified formulation Deja Lue [facility] 02-12-2022 Influenza, High-dose Seasonal, Quadrivalent, Preservative Free Marisol Aichholz GUEST RELATIONS OFFICER Work Phone: [facility] 10-17-2021 influenza virus vacc ine, unspecified formulation Marisol Aichholz GUEST RELATIONS OFFICER Work Phone: [facility] 10-17-2021 pneumococcal polysaccharide vaccine, 23 valent Marisol Aichholz GUEST RELATIONS OFFICER Work Phone: [facility] 08-06-2021 SARS-CoV-2 mRNA (qwwdmepywis-[id number]-[id number] e) vaccine Deja Perez [facility] 02-02-2021 influenza virus vacc ine, unspecified formulation Deja Perez [facility] 02-02-2021 Influenza, High-dose Seasonal, Quadrivalent, Preservative Free Marisol Aichholz GUEST RELATIONS OFFICER Work Phone: [facility] 01-05-2021 SARS-CoV-2 (COVID-19 ) mRNA BNT-162b2 vax Deja Perez [facility] 05-29-2020 SARS-CoV-2 (COVID-19 ) mRNA-1273 vaccine Carlitos RICE [facility] 05-21-2020 SARS-CoV-2 (COVID-19 ) mRNA BNT-162b2 vax Deja Lue [facility] Comment on above: Result Comment: 2022: [id number] 05-08-2020 SARS-CoV-2 (COVID-19 ) mRNA-1273 vaccine Carlitos MAYA [facility] 05-01-2020 SARS-CoV-2 (COVID-19 ) mRNA BNT-162b2 vax Deja Lue [facility] Comment on above: Result Comment: 2022: [id number] 11-30-2019 influenza virus vacc ine, unspecified formulation Deja Lue [facility] 11-30-2019 Influenza, High-dose Seasonal, Quadrivalent, Preservative Free Marisol Aichholz GUEST RELATIONS OFFICER Work Phone: [facility] 11-30-2019 pneumococcal conjuga te vaccine, 13 valent Deja Lue [facility] 11-27-2019 influenza virus vacc ine, unspecified formulation Carlitos ZULMA [facility] 12-29-2018 influenza virus vacc ine, unspecified formulation Deja Lue [facility] 12-29-2018 Seasonal trivalent influenza vaccine, adjuvanted, preservative free Marisol Aichholz GUEST RELATIONS OFFICER Work Phone: [facility] 01-28-2018 influenza virus vacc ine, unspecified formulation Deja Lue [facility] 01-28-2018 influenza, high dose seasonal, preservative-free Marisol Aichholz GUEST RELATIONS OFFICER Work Phone: [facility] 02-11-2017 influenza virus vacc ine, unspecified formulation Deja Lue [facility] 02-11-2017 Seasonal trivalent influenza vaccine, adjuvanted, preservative free Marisol Aichholz GUEST RELATIONS OFFICER Work Phone: [facility] 01-17-2015 influenza virus vacc ine, unspecified formulation Deja Lue [facility] 01-17-2015 influenza, high dose seasonal, preservative-free Marisol Aichholz GUEST RELATIONS OFFICER Work Phone: [facility] 12-10-2014 pneumococcal polysaccharide vaccine, 23 valent Deja Lue [facility] 03-12-2014 influenza virus vacc ine, unspecified formulation Deja Lue [facility] 03-12-2014 influenza, seasonal, injectable Marisol Aichholz GUEST RELATIONS OFFICER Work Phone: [facility] 03-12-2014 zoster vaccine, live Deja L ue [facility] 03-12-2014 zoster vaccine, unspecified formulation [facility] 01-10-2013 influenza virus vacc ine, unspecified formulation Deja Lue [facility] 01-10-2013 influenza, seasonal, injectable Marisol Aichholz GUEST RELATIONS OFFICER Work Phone: [facility] Payers Date Payer Category Payer Self-pay 2021 Private Health Insurance [employer] [id number] 2018 [facility] Member Subscriber Plan / Payer (Effective 2018-Present) Name: Kimmy Mcarthur Relation to Subscriber: Self Name: Kimmy Mcarthur Payer ID: Not on file Type: Not on file Address: [place] [id number] 2018 Unknown [id number] 2012 Medicare [id number]. [id number] 1959 Medicare [id number] 1959 Unknown [id number] 1946 Unknown [id number] .840.1.268395.3.579.2. 593 1946 Unknown [id number] 2.840.1.212590.3.579.2. 593 1946 Unknown [id number] 2.840.1.720587.3.579.2. 59 1946 Unknown [id number] .840.1.031790.3.579.2. 593 1946 Unknown [id number] 2.840.1.472411.3.579.2. 593 1946 Unknown [id number] 2.16.840.1.546840.3.579.2. 1285 1946 Unknown [id number] 2.16.840.1.712194.3.579.2. 1285 1946 Unknown [id number] 2.16.840.1.436253.3.579.2. 1285 1946 Unknown [id number] 2.16.840.1.958326.3.579.2. 1285 1946 Unknown [id number] 2.16.840.1.140068.3.579.2. 1285 1946 Unknown [id number] 2.840.1.866031.3.579.2. 1285 1946 Unknown [id number] 2.840.1.247052.3.579.2. 1285 1946 Unknown [id number] 2.16840.1.965604.3.579.2. 1285 1946 Unknown [id number] 2.840.1.143422.3.579.2. 1285 1946 Unknown [id number] 2.16.840.1.776643.3.579.2. 1285 1946 Unknown [id number] 2.16840.1.474050.3.579.2. 1285 1946 Unknown [id number] 2.16.840.1.227161.3.579.2. 1285 1946 Unknown [id number] 2.16840.1.124794.3.579.2. 1285 1946 Unknown [id number] 2.16.840.1.347589.3.579.2. 1285 1946 Unknown [id number] 2.16.840.1.471490.3.579.2. 1285 1946 Unknown [id number] 2.16.840.1.715773.3.579.2. 1285 1946 Unknown [id number] 2.16.840.1.053495.3.579.2. 1285 1946 Unknown [id number] 2.16.840.1.366454.3.579.2. 1285 1946 Unknown [id number] 2.16840.1.077868.3.579.2. 1285 1946 Unknown [id number] 2.16840.1.339308.3.579.2. 1285 1946 Unknown [id number] 2.840.1.040661.3.579.2. 1285 1946 Unknown [id number] 2.840.1.349978.3.579.2. 1285 1946 Unknown [id number] 2.840.1.030940.3.579.2. 1285 1946 Unknown [id number] 2.840.1.196147.3.579.2. 1285 1946 Unknown [id number] 2.840.1.485176.3.579.2. 1285 1946 Unknown [id number] 2.840.1.460023.3.579.2. 1285 1946 Unknown [id number] 2.840.1.867133.3.579.2. 1285 1946 Unknown [id number] 2.840.1.391481.3.579.2. 1285 1946 Unknown [id number] 2.16840.1.581724.3.579.2. 1285 1946 Unknown [id number] 2.16840.1.380256.3.579.2. 1285 1946 Unknown [id number] 2.16840.1.488931.3.579.2. 1285 1946 Unknown [id number] 2.16.840.1.421780.3.579.2. 1285 1946 Unknown [id number] 2.16.840.1.966482.3.579.2. 1285 1946 Unknown [id number] 2.16.840.1.757827.3.579.2. 1285 1946 Unknown [id number] 2.16.840.1.208553.3.579.2. 1285 1946 Unknown [id number] 2..840.1.577901.3.579.2. 1285 1946 Unknown [id number] 2.840.1.942120.3.579.2. 1285 1946 Unknown [id number] 2.840.1.308094.3.579.2. 1285 1946 Unknown [id number] 2.840.1.357946.3.579.2. 1285 1946 Unknown [id number] 2.840.1.198618.3.579.2. 1285 1946 Unknown [id number] 2.840.1.873126.3.579.2. 1285 1946 Unknown [id number] 2.840.1.807889.3.579.2. 1285 1946 Unknown [id number] 2.16.840.1.206276.3.579.2. 1285 1946 Unknown [id number] 2.16.840.1.702203.3.579.2. 1285 1946 Unknown [id number] 2.16.840.1.134700.3.579.2. 1285 1946 Unknown [id number] 2.16.840.1.896763.3.579.2. 727 1946 Unknown [id number] 2.16.840.1.779440.3.579.2. 727 1946 Unknown [id number] 2.16.840.1.606348.3.579.2. 727 1946 Unknown [id number] 2.16.840.1.791089.3.579.2. 727 1946 Unknown [id number] 2.16.840.1.945593.3.579.2. 1259 1946 Unknown [id number] 2.16.840.1.267462.3.579.2. 9 1946 Unknown [id number] 2.16.840.1.289314.3.579.2. 9 1946 Unknown [id number] 2.16.840.1.673761.3.579.2. 1259 1946 Unknown [id number] 2.16.840.1.791580.3.579.2. 1259 1946 Unknown [id number] 2.16.840.1.947616.3.579.2. 9 1946 Unknown [id number] 2.16.840.1.803792.3.579.2. 1259 Unknown [id number] 2.16.840.1.793980.3.579.2. 531 Social History Date Type Detail Facility Start: 06-18-2021 End: 04-11-2023 Tobacco smoking status Ex-smoker (finding) [facility] Start: 04-11-2023 End: 06-07-2023 Sex Assigned At Male [facility] Tobacco smoking status Never [facility] End: 03-28-2020 History of tobacco use Current smoker [facility] End: 03-28-2020 History of tobacco use Cigarette Smoker [facility] Start: 04-11-2023 End: 03-05-2024 Tobacco use and exposure Smokeless tobacco non-user [facility] Start: 04-11-2023 End: 09-26-2024 Alcohol intake Current drinker of alcohol (finding) [facility] Start: 04-11-2023 End: 06-07-2023 History of Social function [facility] Start: 04-10-2023 Alcohol Comment monthly or less [facility] Start: 1945 Sex Assigned At Not [...] [facility] Start: 01-04-2017 Alcohol Comment rare [facility] [facility] Start: 03-05-2013 End: 10-31-2014 Sex Male (finding) [facility] Start: 04-04-2024 [facility] Start: 04-04-2024 Alcoholic beverage intake Ex-drinker (finding) [facility] Start: 04-04-2024 Tobacco Comment Pack every 3 w eeks as of 04/04/24 [facility] Unknown if ever smoked [facility] Work Phone: Start: 1945 Sex Assigned At Male F [facility] Sexual Orientation [facility] Medical Equipment Procedure Code Equipment Code Equipment Origin al Text Equipment Identifier Dates Start: 04-14-2019 End: 03-05-2024 Functional Status Date Assessment Result Facility 08-15-2024 Patient Health Questionnaire 2 item (PHQ-2) [Reported] [facility] 08-15-2024 How difficult have t hese problems made it for you to do your work, take care of things at home, or get along with other people? Not difficult at all 08/15/2024 10:50 AM EDT AB GRIFFITH Not difficult at all [facility] 07-11-2023 Functional Status N/A [facility] 06-18-2022 Functional Status N/A [facility] Clinical Notes 06-18-2021 to 10-09-2024 Marisol Boyce NP - 09/26/2024 10:15 AM EDAB RAPP - 09/26/2024 9:00 AM Cristiano Boyce, CATALINA - 09/26/2024 9:00 AM Cristiano Boyce NP - 09/26/2024 6:02 AM EDTPatient Instructions Note Date & Type Note Facility 10-09-2024 Note [facility] Cardiology Clinic Note Chief Complaint: Patient [...] Final Discharge Diagnosis: 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 ([facility]/HCC) Admission Diagnosis: A-fib (CMS/[facility]) [I48.91] Hospital course: 78 yo M with history of multivessel CAD s/p RCA stent 2022, HFpEF, MVR, HTN, PAD, IDDM2 who presented to outside ED with chest pressure and was found to be in Afib with RVR with rates up to 150s. Troponin was elevated at 100. He was given Cardizem, which converted him to sinus, and he was transferred to [facility]. He was placed on ASA/Plavix as [...] stable condition on 10/07/23. Dear Dr. Carli MD Kimmy is advised to follow up with you within 1-2 weeks. Follow-up with: Cardiology, CHF clinic, and CT Surgery Scheduled appointments: Future Appointments Date Time Provider Department Center 10/13/2023 11:00 AM Natasha Campo MD [facility] 11/07/2023 7:30 AM [facility] MR 2 [facility] ORTH MR [facility] 11/08/2023 2:00 PM [facility] Christensen [facility] Your medication list START taking these medications [...] Your Medications These medications were sent to [facility] [address] [address] ??? amiodarone 200 mg tablet ??? carvedilol 3.125 mg tablet ??? lisinopril 20 mg tablet These medications were sent to [facility] (more content not included)... [facility] 09-26-2024 History of Present illness Narrative [...] spinal stenosis 06/07/2023 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 03/02/2023 COVID-19 virus detected Depression Erectile dysfunction 06/07/2023 Fatigue Granuloma annulare Hearing loss, bilateral Hyperlipidemia 06/07/2023 WESTLEY (iron deficiency anemia) 04/11/2023 Lumbar spondylosis Lumbosacral pain 04/11/2023 CORNELIA (obstructive sleep apnea) 06/07/2023 PAD (peripheral artery disease) 03/25/2023 Primary hypertension 04/11/2023 Tobacco user 06/07/2023 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 Type 2 diabetes mellitus without complication, with long-term current use of insulin ([facility]) 03/22/2023 Past Surgical History: Procedure Laterality Date [...] complication, with long-term current use of insulin ([facility]) Check blood sugars daily, notify if <70 [...] meds: lisinopril, carvedilol Clarification with Zenobia at [facility] , lisinopril dose is 20mg daily, should not be filling lisinopril 5mg dose Also contacted the [facility] pharmacy to have them deactivate the lisinopril [...] meds: lisinopril, carvedilol Clarification with Zenobia at [facility] , lisinopril dose is 20mg daily, should not be filling lisinopril 5mg dose Also contacted the [facility] pharmacy to have them deactivate the lisinopril 5mg script spoke with Juliet at 10:18am Associated Problem(s): Dizziness and giddiness Last appt had some mild orthostatic changes in BP Cardiology had him stop amlodipine No orthostatics today ?side effect meds, vs cervical pathology, vascular? Send to see neuro documented in this encounter [facility] 09-26-2024 Telephone encounter Note Please contact company regarding his eliquis to see why he has not received it yet?? Also call pt let him know do NOT take the 5mg lisinopril, he should only be taking the 20mg lisinopril dose LA [facility] 09-26-2024 Miscellaneous Notes Please contact company regarding his eliquis to see why he has not received it yet?? Also call pt let him know do NOT take the 5mg lisinopril, he should only be taking the 20mg lisinopril dose LA documented in this encounter [facility] 09-26-2024 Instructions Marisol Boyce NP - 09/26/2024 9:00 AM EDT Neurology: will call you, Ed office We will clarify the lisinopril dose with heart doctor documented in this encounter [facility] 08-15-2024 History of Present illness Narrative Associated Problem(s): Dizziness and giddiness Only notes when getting up from sitting to standing Orthostatics in office: [id number] Sittin/56 Standin/54 I will reach out to [...] discs Pt states he was up in [place] for pain mgmt for injections that helped and he wouldn't mind getting a referral to do again Pt needs a refill on his metformin Pt states he has not heard from the [facility] Pt seen urologist Pt also had colonoscopy done [employer] October 09 Images from the original note [...] discs Pt states he was up in [place] for pain mgmt for injections that helped and he wouldn't mind getting a referral to do again Pt needs a refill on his metformin Pt states he has not heard from the [employer] Pt seen urologist Pt also had colonoscopy done [employer] October 09 CGM: 3 173 avg, 58% [...] being taken. He does not see a can pusher.Eye exam is not current. Hypertension This is [...] no compliance problems. Hypertensive end-organ damage includes CAD/[place]J and PVD. There is no history of [...] 06/07/2023 Bilateral carotid artery disease, unspecified type ([facility]) 06/07/2023 BPH (benign prostatic hyperplasia) 06/07/2023 Cervical spinal stenosis 06/07/2023 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 ([facility]) 03/02/2023 COVID-19 virus detected Depression ([facility]) Erectile dysfunction 06/07/2023 Fatigue Granuloma annulare Hearing loss, bilateral Hyperlipidemia ([facility]) 06/07/2023 WESTLEY (iron deficiency anemia) 04/11/2023 Lumbar spondylosis Lumbosacral pain 04/11/2023 CORNELIA (obstructive sleep apnea) 06/07/2023 PAD (peripheral artery disease) ([facility]) 03/25/2023 Primary hypertension ([facility]) 04/11/2023 Tobacco user 06/07/2023 Tubulovillous adenoma of [...] insulin, metformin A1c: 6.3% 07/11/24 Primary hypertension ([facility]) Please check blood pressure daily and record [...] info on advanced directives as well Hyperlipidemia ([facility]) Continue statin Check labs yearly, and prn dose changes Bilateral carotid artery disease, unspecified type ([facility]) Cont asa, statin Periodic monitoring with US A-fib ([facility]) Is on amiodirone as well as anti coagulation NSR today Cont with cardiology Centrilobular emphysema ([facility]) Noted on imaging, does not take any medications on a regular basis Type 2 diabetes mellitus with other specified complication PAD, CAD, ED Dizziness and giddiness Only notes when getting up from sitting to standing Orthostatics in office: [id number] Sittin/56 Standin/54 I will reach out to [...] manages your CORNELIA: documented in this encounter [facility] 08-15-2024 Instructions Marisol Boyce NP - 08/15/2024 10:30 AM EDT Drink more fluids, will reach out to cardiology for advice on BP documented in this encounter [facility] 07-18-2024 Note Patient Education Urology Benign [...] Follow these instructions at home: ??? Take ergn-rvf-rgkdikm and prescription medicines only as told by [...] do not get (more content not included)... [facility] 05-15-2024 History of Present illness Narrative [...] being taken. He does not see a can pusher.Eye exam is not current. Hypertension This is [...] no compliance problems. Hypertensive end-organ damage includes CAD/NJ, heart failure and PVD. There is no [...] 06/07/2023 Bilateral carotid artery disease, unspecified type ([facility]) 06/07/2023 BPH (benign prostatic hyperplasia) 06/07/2023 Cervical spinal stenosis 06/07/2023 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 ([facility]) 03/02/2023 COVID-19 virus detected Depression ([facility]) Erectile dysfunction 06/07/2023 Fatigue Granuloma annulare Hearing loss, bilateral Hyperlipidemia ([facility]) 06/07/2023 WESTLEY (iron deficiency anemia) 04/11/2023 Lumbar spondylosis Lumbosacral pain 04/11/2023 CORNELIA (obstructive sleep apnea) 06/07/2023 PAD (peripheral artery disease) ([facility]) 03/25/2023 Primary hypertension ([facility]) 04/11/2023 Tobacco user 06/07/2023 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 Type 2 diabetes mellitus without complication, with long-term current use of insulin ([facility]) 03/22/2023 Past Surgical History: Procedure Laterality Date [...] Addressed This Visit 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 (CMS/HCC) - Primary Follows with cardiology Current meds: asa, statin, b cesilia, Relevant Orders Comprehensive metabolic panel Type 2 diabetes mellitus without complication, with long-term current use of insulin ([facility]) Check blood sugars daily, notify if <70 [...] ratio Hemoglobin A1c PAD (peripheral artery disease) ([facility]) Continue asa and statin Primary hypertension ([facility]) Please check blood pressure daily and record [...] Orders CBC and differential Iron level Hyperlipidemia ([facility]) Continue statin Check labs yearly, and prn dose changes Relevant Orders Comprehensive metabolic panel Lipid panel Erectile dysfunction A-fib ([facility]) Is on amiodirone as well as anti coagulation NSR today Cont with cardiology Relevant Orders CBC and differential Centrilobular emphysema ([facility]) Noted on imaging, does not take any medications on a regular basis Type 2 diabetes mellitus with other specified complication ([facility]) PAD, CAD, ED Relevant Orders Comprehensive metabolic panel Type 2 diabetes mellitus 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 ([facility]) Primary insomnia Recommend no napping during the day, can try melatonin up to 10mg at bedtime If not helpful consider trazadone, will call if he needs it Associated Problem(s): Hyperlipidemia ([facility]/HCC) Continue statin Check labs yearly, and prn dose changes Associated Problem(s): WESTLEY (iron deficiency anemia) Check labs in 06/19 Associated Problem(s): Type 2 diabetes mellitus without complication, with long-term current use of insulin ([facility]) Check blood sugars daily, notify if <70 [...] 2 diabetes mellitus with other specified complication ([facility]/HCC) PAD, CAD, ED Associated Problem(s): Primary hypertension ([facility]/HCC) Please check blood pressure daily and record DASH diet Limit caffeine Take medication as directed Contact office if chest pain, pressure, dizziness, shortness of breath, swelling legs Recommend slow position changes Cont current meds: lisinopril, carvedilol Associated Problem(s): PAD (peripheral artery disease) ([facility]) Continue asa and statin Associated Problem(s): 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 ([facility]) Follows with cardiology Current meds: asa, statin, b cesilia, Associated Problem(s): A-fib ([facility]) Is on amiodirone as well as anti coagulation NSR today Cont with cardiology Associated Problem(s): Centrilobular emphysema ([facility]) Noted on imaging, does not take any medications on a regular basis documented in this encounter [facility] 05-15-2024 Instructions Marisol Boyce NP - [...] due AFTER 06/14/24 documented in this encounter [facility] 04-18-2024 Miscellaneous Notes ----- Message from [...] PCP. ThanksDr. Mcgarry documented in this encounter [facility] 04-18-2024 Telephone encounter Note ----- Message from [...] get it from his PCP. ThanksDr. Mcgarry [facility] 04-04-2024 History of Present illness Narrative Images [...] cancer. He was hospitalized in September at [facility] for NSTEMI and a-fib. He is on aspirin and Eliquis daily. He denies chest pain and shortness of breath. His asset protection specialist is Dr. Campo in [place]. Review of Systems Constitutional: Negative for fever [...] COVID-19 11/2021 Diabetes mellitus type 2, controlled ([facility]) Dizziness HL (hearing loss) hearing aid both ears Hyperlipidemia Hypertension Injury of back Low back pain Myocardial infarction ([facility]) 2004 Pancreatitis 2017 Peripheral arterial occlusive disease ([facility]) Visual impairment glasses Wears dentures Past Surgical History: Procedure Laterality Date ARTHROSCOPY SHOULDER WITH SUBACROMIAL DECOMPRESSION AND DEBRIDEMENT TYPE 1 SLAP LESION Left 01/11/2017 Performed by Jr Eliezer Gifford DO at [facility] CARDIAC CATHETERIZATION 5 stents, most recent placed 12/2004 CATARACT EXTRACTION CHOLECYSTECTOMY COLONOSCOPY N/A 10/26/2018 Performed by Sabino Mauricio DO at [facility] EGD N/A 05/03/2019 Performed by Sabino Mauricio DO at [facility] EGD, DILATATION N/A 05/03/2019 Performed by Sabino Mauricio DO at [facility] INJECTION BLOCK NERVE MEDIAL BRANCH: bilat T 10/02/9 Bilateral 03/05/2022 Performed by Gabriel Hanson MD at [facility] INJECTION BLOCK NERVE MEDIAL BRANCH: bilat T 7/8 8/9 Bilateral 01/29/2022 Performed by Gabriel Hanson MD at [facility] INJECTION BLOCK NERVE MEDIAL BRANCH: right L 3/4 4/5 Right 09/05/2020 Performed by Gabriel Hanson MD at [facility] INJECTION BLOCK NERVE MEDIAL BRANCH: right [id number] Right 10/10/2020 Performed by Gabriel Hanson MD at [facility] LARGE JOINT BURSA: left hip Left 04/13/2019 Performed by Gabriel Hanson MD at [facility] MEDIAL BRANCH NERVE BLOCK: left [id number] Left 10/26/2019 Performed by Gabriel Hanson MD at [facility] SI JOINT-Left Left 10/20/2018 Performed by Gabriel Hanson MD at [facility] INJECTION STEROID EPI 1 WITH SEDATION: left [id number] Left 08/03/2019 Performed by Gabriel Hanson MD at [facility] INJECTION STEROID EPI 1 WITH SEDATION: left [id number] Left 09/03/2019 Performed by Gabriel Hanson MD at [facility] ADELE PROCEDURE SHOULDER Left 01/11/2017 Performed by Jr Eliezer Gifford DO at [facility] RADIOFREQUENCY ABLATION SPINAL: Left T 7/8 8/9 Left 04/23/2022 Performed by Gabriel Hanson MD at [facility] RADIOFREQUENCY ABLATION SPINAL: Right T 7/8 8/9 Right 04/09/2022 Performed by Gabriel Hanson MD at [facility] No Known Allergies Current Outpatient Medications: albuterol [...] Strain: Low Risk (11/10/2023) Received from [facility] Overall Financial Resource Strain (CARDIA) Difficulty of Paying Living Expenses: Not hard at all Food Insecurity: No Food Insecurity (04/04/2024) Hunger Screening Food Insecurity - Worry: Never True Food Insecurity - Inability: Never True Transportation Needs: No Transportation Needs (11/10/2023) Received from [facility] Transportation In the past 12 months, has lack of transportation kept you from medical appointments or from getting medications?: No Lack of Transportation (Non-Medical): Not on file Physical Activity: Inactive (06/07/2023) Received from [facility] Exercise Vital Sign Days of Exercise per Week: 0 days Minutes of Exercise per Session: 0 min Stress: Stress Concern Present (06/07/2023) Received from [facility] - Occupational Stress Questionnaire Feeling of Stress : To some extent Social Connections: Moderately Integrated (06/07/2023) Received from [facility] Social Connection and Isolation Panel [NHANES] Frequency of Communication with Friends and Family: More than three times a week Frequency of Social Gatherings with Friends and Family: Once a week Attends Pentec[employer]al Services: More than 4 times per year Active Member of Clubs or Organizations: No Attends Club or Organization Meetings: Never Marital Status: Interpersonal Safety: Not At Risk (11/10/2023) Received from [facility] Humiliation, Afraid, Rape, and Kick questionnaire Fear of Current or Ex-Partner: No Emotionally Abused: No Physically Abused: No Sexually Abused: No Housing Instability: Low Risk (11/10/2023) Received from [facility] Housing Stability Vital Sign Unable to Pay for Housing in the Last Year: Not on file Number of Places Lived in the Last Year: Not on file In the last 12 months, was there a time when you did not have a steady place to sleep or slept in a half-way (including now)?: No Family History Problem Relation [...] patient/family/caregiver Referring and communicating with other health animal caretaker supervisor Encounter for colonoscopy due to history of colonic polyp [Z12.11, Z86.0100] SATURNINO BHANDARI [facility] [place] This note was created with the assistance of a speech recognition program. While intending to generate a timely document that accurately reflects the content of the visit, no guarantee can be provided that every grammatical or spelling mistake has been or will be identified or corrected. Thank you for your understanding. SATURNINO Bhandari 04/04/24 [id number] documented in this encounter [facility] 03-14-2024 Note [facility] Cardiology Clinic Note Chief Complaint: Patient [...] Final Discharge Diagnosis: 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 ([facility]) Admission Diagnosis: A-fib (CMS/[facility]) [I48.91] Hospital course: 78 yo M with history of multivessel CAD s/p RCA stent 2022, HFpEF, MVR, HTN, PAD, IDDM2 who presented to outside ED with chest pressure and was found to be in Afib with RVR with rates up to 150s. Troponin was elevated at 100. He was given Cardizem, which converted him to sinus, and he was transferred to [facility]. He was placed on ASA/Plavix as [...] Center 10/13/2023 11:00 AM Natasha Campo MD [facility] [place] [facility] 11/07/2023 7:30 AM [facility] MR 2 [facility] ORTH MR MPORTHO 11/08/2023 2:00 PM Peter Christensen [facility] Your medication list START taking these medications [...] Your Medications These medications were sent to [facility] [address] [address] Phone: [phone] (more content not included)... [facility] 03-05-2024 History of Present illness Narrative [...] cancer. He was hospitalized in September at [facility] for NSTEMI and a-fib. He is on aspirin and Eliquis daily. He denies chest pain and shortness of breath. His asset protection specialist is Dr. Campo in [place]. Review of Systems Constitutional: Negative for fever [...] COVID-19 11/2021 Diabetes mellitus type 2, controlled ([facility]) Dizziness HL (hearing loss) hearing aid left ear Hyperlipidemia Hypertension Injury of back Low back pain Myocardial infarction ([facility]) 2004 Pancreatitis 2017 Peripheral arterial occlusive disease ([facility]) Visual impairment glasses Wears dentures Past Surgical History: Procedure Laterality Date ARTHROSCOPY SHOULDER WITH SUBACROMIAL DECOMPRESSION AND DEBRIDEMENT TYPE 1 SLAP LESION Left 01/11/2017 Performed by Jr Eliezer Gifford DO at [facility] CARDIAC CATHETERIZATION 5 stents, most recent placed 12/2004 CATARACT EXTRACTION CHOLECYSTECTOMY COLONOSCOPY N/A 10/26/2018 Performed by Sabino Mauricio DO at [facility] EGD N/A 05/03/2019 Performed by Sabino Mauricio DO at [facility] EGD, DILATATION N/A 05/03/2019 Performed by Sabino Mauricio DO at [facility] INJECTION BLOCK NERVE MEDIAL BRANCH: bilat T 10/02 8/9 Bilateral 03/05/2022 Performed by Gabriel Hanson MD at [facility] INJECTION BLOCK NERVE MEDIAL BRANCH: bilat T 78 8/9 Bilateral 01/29/2022 Performed by Gabriel Hanson MD at [facility] NERVE MEDIAL BRANCH: right L 3/4 4/5 Right 09/05/2020 Performed by Gabriel Hanson MD at [facility] N[facility]E MEDIAL [facility]AN[facility]: right [id number] Right 10/10/2020 Performed by Gabriel Hanson MD at [facility] LARGE JOINT BURSA: left hip Left 04/13/2019 Performed by Gabriel Hanson MD at [facility] MEDIAL BRANCH NERVE BLOCK: left [id number] Left 10/26/2019 Performed by Gabriel Hanson MD at [facility] INJECTION SI JOINT-Left Left 10/20/2018 Performed by Gabriel Hanson MD at [facility] INJECTION STEROID EPI 1 WITH SEDATION: left [id number] Left 08/03/2019 Performed by Gabriel Hanson MD at [facility] INJECTION STEROID EPI 1 WITH SEDATION: left [id number] Left 09/03/2019 Performed by Gabriel Hanson MD at [facility] ADELE PROCEDURE SHOULDER Left 01/11/2017 Performed by Jr Eliezer Gifford DO at [facility] RADIOFREQUENCY ABLATION SPINAL: Left T 7/8 8/9 Left 04/23/2022 Performed by Gabriel Hanson MD at [facility] RADIOFREQUENCY ABLATION SPINAL: Right T 7/8 8/9 Right 04/09/2022 Performed by Gabriel Hanson MD at [facility] No Known Allergies Current Outpatient Medications: albuterol [...] MOUTH DAILY, Disp: , Rfl: peg 3350-sod sulf,lbvt-kcc-wgo 178.7-7.3-0.5 gram recon soln, Take 1 kit [...] Strain: Low Risk (11/10/2023) Received from [facility] Overall Financial Resource Strain (CARDIA) Difficulty of Paying Living Expenses: Not hard at all Food Insecurity: No Food Insecurity (11/10/2023) Received from [facility] Hunger Vital Sign Within the past 12 months, you worried that your food would run out before you got the money to buy more.: Never true Ran Out of Food in the Last Year: Not on file Transportation Needs: No Transportation Needs (11/10/2023) Received from [facility] Transportation In the past 12 months, has lack of transportation kept you from medical appointments or from getting medications?: No Lack of Transportation (Non-Medical): Not on file Physical Activity: Inactive (06/07/2023) Received from [facility] Exercise Vital Sign Days of Exercise per Week: 0 days Minutes of Exercise per Session: 0 min Stress: Stress Concern Present (06/07/2023) Received from [facility] [employer] - Occupational Stress Questionnaire Feeling of Stress : To some extent Social Connections: Moderately Integrated (06/07/2023) Received from [facility] Social Connection and Isolation Panel [NHANES] Frequency of Communication with Friends and Family: More than three times a week Frequency of Social Gatherings with Friends and Family: Once a week Attends Pentec[employer]al Services: More than 4 times per year Active Member of Clubs or Organizations: No Attends Club or Organization Meetings: Never Marital Status: Interpersonal Safety: Not At Risk (11/10/2023) Received from [facility] Humiliation, Afraid, Rape, and Kick questionnaire Fear of Current or Ex-Partner: No Emotionally Abused: No Physically Abused: No Sexually Abused: No Housing Instability: Low Risk (11/10/2023) Received from [facility] Housing Stability Vital Sign Unable to Pay for Housing in the Last Year: Not on file Number of Places Lived in the Last Year: Not on file In the last 12 months, was there a time when you did not have a steady place to sleep or slept in a half-way (including now)?: No Family History Problem Relation [...] patient/family/caregiver Referring and communicating with other health animal caretaker supervisor Encounter for colonoscopy due to history of colonic polyp [Z12.11, Z86.0100] SATURNINO BHANDARI [facility] [place] This note was created with the assistance of a speech recognition program. While intending to generate a timely document that accurately reflects the content of the visit, no guarantee can be provided that every grammatical or spelling mistake has been or will be identified or corrected. Thank you for your understanding. SATURNINO Bhandari 03/05/24 1215 documented in this encounter [facility] 02-15-2024 History of Present illness Narrative Associated [...] no compliance problems. Hypertensive end-organ damage includes CAD/[place]J, heart failure and PVD. Diabetes He has [...] being taken. He does not see a can pusher.Eye exam is not current. SUBJECTIVE: MEDICATIONS: Current [...] 06/07/2023 Bilateral carotid artery disease, unspecified type ([facility]) 06/07/2023 BPH (benign prostatic hyperplasia) 06/07/2023 Cervical spinal stenosis 06/07/2023 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 ([facility]) 03/02/2023 COVID-19 virus detected Depression ([facility]) Erectile dysfunction 06/07/2023 Fatigue Granuloma annulare Hearing loss, bilateral Hyperlipidemia ([facility]) 06/07/2023 WESTLEY (iron deficiency anemia) 04/11/2023 Lumbar spondylosis Lumbosacral pain 04/11/2023 CORNELIA (obstructive sleep apnea) 06/07/2023 PAD (peripheral artery disease) ([facility]) 03/25/2023 Primary hypertension ([facility]) 04/11/2023 Tobacco user 06/07/2023 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 Type 2 diabetes mellitus without complication, with long-term current use of insulin ([facility]) 03/22/2023 Past Surgical History: Procedure Laterality Date [...] complication, with long-term current use of insulin ([facility]) - Primary Check blood sugars daily, notify [...] flomax Erectile dysfunction 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 (CMS/HCC) Cont [...] complication, with long-term current use of insulin ([facility]) Check blood sugars daily, notify if <70 [...] flomax Associated Problem(s): 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 ([facility]) Cont with asa, statin, b cesilia And cardiology Associated Problem(s): PAD (peripheral artery disease) ([facility]) Continue asa and statin Associated Problem(s): Primary hypertension ([facility]) Please check blood pressure daily and record DASH diet Limit caffeine Take medication as directed Contact office if chest pain, pressure, dizziness, shortness of breath, swelling legs Recommend slow position changes Cont current meds documented in this encounter [facility] 02-15-2024 Instructions Marisol Boyce NP - [...] diabetic eye exam documented in this encounter [facility] 02-02-2024 Telephone encounter Note Have we heard any reponse on a note I sent to you a few weeks ago about his metfromin?? [place] [facility] 02-02-2024 Miscellaneous Notes Have we heard any reponse on a note I sent to you a few weeks ago about his metfromin?? [place] documented in this encounter [facility] 01-04-2024 History of Present illness Narrative [...] his amlodipine, I did call Joan at [facility] cardiology and she will verify Pt is [...] no compliance problems. Hypertensive end-organ damage includes CAD/NJ and PVD. SUBJECTIVE: MEDICATIONS: Current Outpatient Medications Medication Instructions amiodarone (PACERONE) 200 mg, Oral, Daily with breakfast amLODIPine (NORVASC) 5 mg, Oral, Daily RT apixaban (ELIQUIS) 5 mg, Oral, 2 times daily Aspirin Low Dose 81 mg, Oral, Daily atorvastatin (LIPITOR) 80 mg, Oral, Daily carvedilol (COREG) 3.125 mg, Oral, 2 times daily with meals Continuous Glucose Electronic Calibration Technician (Dexcom G7 Electronic Calibration Technician) device 1 each, Does not apply, Daily [...] spinal stenosis 06/07/2023 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 ([facility]) 03/02/2023 COVID-19 virus detected Depression ([facility]) Erectile dysfunction 06/07/2023 Fatigue Granuloma annulare Hearing loss, bilateral Hyperlipidemia ([facility]) 06/07/2023 WESTLEY (iron deficiency anemia) 04/11/2023 Lumbar spondylosis Lumbosacral pain 04/11/2023 CORNELIA (obstructive sleep apnea) 06/07/2023 PAD (peripheral artery disease) ([facility]) 03/25/2023 Primary hypertension ([facility]) 04/11/2023 Tobacco user 06/07/2023 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 Type 2 diabetes mellitus without complication, with long-term current use of insulin ([facility]) 03/22/2023 Past Surgical History: Procedure Laterality Date [...] complication, with long-term current use of insulin ([facility]) Consider GLP 1 possible hx of Pancreatitis [...] his amlodipine, I did call Joan at [facility] cardiology and she will verify Chronic thoracic back pain - Primary Relevant Orders XR thoracic spine 3 views documented in this encounter [facility] 11-29-2023 Note lis [facility] 11-29-2023 Note [facility] 11-29-2023 Note [facility] Cardiology Clinic Note Chief Complaint: Pt [...] Final Discharge Diagnosis: 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 Troponin was elevated at 100. He was given Cardizem, which converted him to sinus, and he was transferred to [facility]. He was placed on ASA/Plavix as [...] Center 10/13/2023 11:00 AM Natasha Campo MD [facility] 11/07/2023 7:30 AM [facility] MR 2 [facility] ORTH MR MPORTHO 11/08/2023 2:00 PM Peter Christensen MD [facility] Your medication list START taking these medications [...] Your Medications These medications were sent to [facility] - [place], [place] - [facility] [address] [facility] [id number] ??? amiodarone 200 mg tablet ??? carvedilol 3.125 mg tablet ??? lisinopril 20 mg tablet These medications were sent to [facility] [place] [address] [address] [place] [address] [place] [address] [place] [phone] (more content not included)... [facility] 11-22-2023 History of Present illness Narrative [...] 2 times daily with meals Continuous Glucose Electronic Calibration Technician (Dexcom G7 Electronic Calibration Technician) device 1 each, Does not apply, Daily [...] 06/07/2023 Bilateral carotid artery disease, unspecified type ([facility]) 06/07/2023 BPH (benign prostatic hyperplasia) 06/07/2023 Cervical spinal stenosis 06/07/2023 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 ([facility]) 03/02/2023 COVID-19 virus detected Depression ([facility]) Erectile dysfunction 06/07/2023 Fatigue Granuloma annulare Hearing loss, bilateral Hyperlipidemia ([facility]) 06/07/2023 WESTLEY (iron deficiency anemia) 04/11/2023 Lumbar spondylosis Lumbosacral pain 04/11/2023 CORNELIA (obstructive sleep apnea) 06/07/2023 PAD (peripheral artery disease) ([facility]) 03/25/2023 Primary hypertension ([facility]) 04/11/2023 Tobacco user 06/07/2023 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 Type 2 diabetes mellitus without complication, with long-term current use of insulin ([facility]) 03/22/2023 Past Surgical History: Procedure Laterality Date [...] Addressed This Visit 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 ([facility]) - Primary Primary hypertension ([facility] No med dose changes at this time Nonrheumatic mitral valve regurgitation Cont with cardiology for recommendations A-fib ([facility]) 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 Document Revised: 06/10/2021 Document Reviewed: 06/10/2021 [employer] Patient Education 2022 [employer]. Follow Up Care 06/18/2022 10:46:56 With:Chris QUINTANA, GEORGE Mitchell, URO Address: When:Within 1 Year(s) [facility] 06-16-2022 Hospital Discharge instructions Patient Education [...] urethra. Follow these instructions at home: Take meai-nka-kifonup and prescription medicines only as told by [...] 03/14/2006 Document Revised: 02/06/2019 Document Reviewed: 04/18/2017 [employer] Patient Education 2020 [employer] Follow Up Care 06/18/2021 11:18:31 With:Chris QUINTANA, GEORGE Mitchell, URO Address: When: Unknown [facility] [place] 06-18-2021 Hospital Discharge instructions Patient Education [...] 03/14/2006 Document Revised: 12/01/2018 Document Reviewed: 02/11/2017 [employer] Patient Education 2020 [employer] 06/18/2021 11:19:47 Benign Prostatic Hyperplasia Benign Prostatic [...] urethra. Follow these instructions at home: Take gnxz-vkv-rclbtuz and prescription medicines only as told by [...] 03/14/2006 Document Revised: 02/06/2019 Document Reviewed: 04/18/2017 [employer]eds Patient Education 2020 [employer] Follow Up Care 06/12/2020 11:26:53 With:ZULMA QUINTANA, Carlitos Villar, URL Address: [address] [place] [id number] [phone] When:Within 1 Year(s) Comments:[place]/GHAZALA [facility] Evaluation + Plan note Future Appointments Appointment Date:06/18/2022 10:00:00 AM Scheduled Provider:Deja Perez MD Location:[facility] Appointment Type:URO Office Visit Diagnostic Tests PendingPSA Total 06/18/21 [facility] Evaluation + Plan note Future Appointments Appointment Date:06/23/2023 10:00:00 AM Scheduled Provider:Deja Perez MD Location:[facility] Appointment Type:URO Office Visit Diagnostic Tests PendingPSA Free & Total 06/18/22 [facility] Evaluation + Plan note Future Appointments Appointment Date:07/04/2024 10:45:00 AM Scheduled Provider:Deja Perez MD Location:[facility] Appointment Type:URO Office Visit Diagnostic Tests PendingPSA Screen, Total 07/11/23 [facility] Evaluation + Plan note Future Appointments Appointment Date:07/18/2024 08:15:00 AM Scheduled Provider:Deja Perez MD Location:[facility] Appointment Type:URO Office Visit [facility] Evaluation note Diagnosis Type 2 diabetes mellitus without complication, with long-term current use of insulin ([facility])- Primary Chronic thoracic back pain, unspecified back pain laterality Primary hypertension ([facility]) Unspecified essential hypertension documented in [facility] encounter [facility] Diagnosis Type 2 diabetes mellitus without complication, with long-term current use of insulin ([facility])- Primary Primary hypertension (CMS/HCC) Unspecified essential hypertension 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 (CMS/[facility]) PAD (peripheral artery disease) (CMS/[facility]) Unspecified peripheral vascular disease Iron deficiency anemia, unspecified iron deficiency anemia type Lumbosacral pain Encounter for subsequent annual wellness visit (AWV) in Medicare patient- Primary intermediate card tender (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 of insulin (Z79.4) Peripheral vascular disease, unspecified (I73.9) Peripheral vascular disease, unspecified Mixed hyperlipidemia (CMS/HCC) Mixed hyperlipidemia Iron deficiency anemia, unspecified iron deficiency anemia type Type 2 diabetes mellitus without complication, with long-term current use of insulin (CMS/HCC) COPD, moderate (CMS/HCC) Primary hypertension (CMS/HCC) Unspecified essential hypertension 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 (CMS/HCC) PAD (peripheral artery disease) (CMS/HCC) Unspecified peripheral vascular disease Nonrheumatic mitral valve regurgitation Riley's esophagus with dysplasia Benign prostatic hyperplasia with lower urinary tract symptoms, symptom details unspecified Primary hypertension (CMS/HCC)- Primary Unspecified essential hypertension Type 2 diabetes mellitus without complication, with long-term current use of insulin (CMS/HCC) 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 (CMS/HCC)- Primary Type 2 diabetes mellitus with other specified complication (CMS/HCC) Male erectile dysfunction, unspecified Type 2 diabetes mellitus 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 (CMS/HCC) Acute cough Primary hypertension (CMS/HCC) Unspecified essential hypertension Paroxysmal atrial fibrillation (CMS/HCC) Atrial fibrillation Type 2 diabetes mellitus without complication, with long-term current use of insulin (CMS/HCC) 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 (CMS/HCC)- Primary Other [...] peripheral vascular disease 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 (CMS/HCC) Riley's esophagus with dysplasia Erectile dysfunction due to diseases classified elsewhere Benign prostatic hyperplasia with lower urinary tract symptoms, symptom details unspecified Colon cancer screening Special screening for malignant neoplasms, colon Tubulovillous adenoma of colon Lumbosacral spondylosis without myelopathy documented in this encounter [facility]* Diagnosis 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 (CMS/HCC)- Primary Other thrombophilia (CMS/HCC) Paroxysmal atrial fibrillation (CMS/HCC) Atrial fibrillation Nonrheumatic mitral valve regurgitation Primary hypertension (CMS/HCC) Unspecified essential hypertension 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) documented in this encounter [facility]* Diagnosis Benign prostatic hyperplasia with lower urinary tract symptoms, symptom details unspecified- Primary documented in this encounter [facility]* Diagnosis Type 2 diabetes mellitus without complication, with long-term current use of insulin (CMS/HCC)- Primary Primary hypertension (CMS/HCC) Unspecified essential hypertension 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 (CMS/HCC) PAD (peripheral artery disease) (CMS/HCC) Unspecified peripheral vascular disease Iron deficiency anemia, unspecified iron deficiency anemia type Lumbosacral pain Encounter for subsequent annual wellness visit (AWV) in Medicare patient- Primary intermediate card tender (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 of insulin (Z79.4) Peripheral vascular disease, unspecified (I73.9) Peripheral vascular disease, unspecified Mixed hyperlipidemia (CMS/HCC) Mixed hyperlipidemia Iron deficiency anemia, unspecified iron deficiency anemia type Type 2 diabetes mellitus without complication, with long-term current use of insulin (/HCC) COPD, moderate (CMS/HCC) Primary hypertension (CMS/HCC) Unspecified essential hypertension 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 (CMS/HCC) PAD (peripheral artery disease) (CMS/HCC) Unspecified peripheral vascular disease Nonrheumatic mitral valve regurgitation Riley's esophagus with dysplasia Benign prostatic hyperplasia with lower urinary tract symptoms, symptom details unspecified Primary hypertension (CMS/HCC)- Primary Unspecified essential hypertension Type 2 diabetes mellitus without complication, with long-term current use of insulin (CMS/HCC) 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 (CMS/HCC)- Primary Type 2 diabetes mellitus with other specified complication (CMS/HCC) Male erectile dysfunction, unspecified Type 2 diabetes mellitus 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 (CMS/HCC) Acute cough Primary hypertension (CMS/HCC) Unspecified essential hypertension Paroxysmal atrial fibrillation (CMS/HCC) Atrial fibrillation Type 2 diabetes mellitus without complication, with long-term current use of insulin (CMS/HCC) 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 (CMS/HCC)- Primary Other [...] peripheral vascular disease 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 (/) Riley's esophagus with dysplasia Erectile dysfunction due to diseases classified elsewhere Benign prostatic hyperplasia with lower urinary tract symptoms, symptom details unspecified Colon cancer screening Special screening for malignant neoplasms, colon Tubulovillous adenoma of colon Lumbosacral spondylosis without myelopathy Type 2 diabetes mellitus without complication, with long-term current use of insulin (/HCC)- Primary documented in this encounter [facility]* Diagnosis Encounter for colonoscopy due to history of colonic polyp- Primary 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 [facility] Diagnosis Type 2 diabetes mellitus without complication, with long-term current use of insulin (/)- Primary Primary hypertension (/HCC) Unspecified essential hypertension 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 (CMS/HCC) PAD (peripheral artery disease) (/) Unspecified peripheral vascular disease Iron deficiency anemia, unspecified iron deficiency anemia type Lumbosacral pain Encounter for subsequent annual wellness visit (AWV) in Medicare patient- Primary intermediate card tender (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 of insulin (Z79.4) Peripheral vascular disease, unspecified (I73.9) Peripheral vascular disease, unspecified Mixed hyperlipidemia (/HCC) Mixed hyperlipidemia Iron deficiency anemia, unspecified iron deficiency anemia type Type 2 diabetes mellitus without complication, with long-term current use of insulin (/HCC) COPD, moderate (CMS/HCC) Primary hypertension (CMS/HCC) Unspecified essential hypertension 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 (CMS/HCC) PAD (peripheral artery disease) (CMS/HCC) Unspecified peripheral vascular disease Nonrheumatic mitral valve regurgitation Riley's esophagus with dysplasia Benign prostatic hyperplasia with lower urinary tract symptoms, symptom details unspecified Primary hypertension (CMS/HCC)- Primary Unspecified essential hypertension Type 2 diabetes mellitus without complication, with long-term current use of insulin (CMS/HCC) 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 (CMS/HCC)- Primary Type 2 diabetes mellitus with other specified complication (CMS/HCC) Male erectile dysfunction, unspecified Type 2 diabetes mellitus 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 (CMS/HCC) Acute cough Primary hypertension (CMS/HCC) Unspecified essential hypertension Paroxysmal atrial fibrillation (CMS/HCC) Atrial fibrillation Type 2 diabetes mellitus without complication, with long-term current use of insulin (CMS/HCC) 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 (CMS/HCC)- Primary Other [...] peripheral vascular disease 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 (CMS/HCC) Riley's esophagus with dysplasia Erectile dysfunction due to diseases classified elsewhere Benign prostatic hyperplasia with lower urinary tract symptoms, symptom details unspecified Colon cancer screening Special screening for malignant neoplasms, colon Tubulovillous adenoma of colon Lumbosacral spondylosis without myelopathy Type 2 diabetes mellitus without complication, with long-term current use of insulin (CMS/HCC)- Primary documented in this encounter [facility] HealthcareEvaluation noteNo assessment information availableRegency Hospital Company Work Phone: Evaluation note* Diagnosis Type 2 diabetes mellitus without complication, with long-term current use of insulin (CMS/HCC)- Primary Primary hypertension (CMS/HCC) Unspecified essential hypertension 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 (CMS/HCC) PAD (peripheral artery disease) (CMS/HCC) Unspecified peripheral vascular disease Iron deficiency anemia, unspecified iron deficiency anemia type Lumbosacral pain Encounter for subsequent annual wellness visit (AWV) in Medicare patient- Primary intermediate card tender (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 of insulin (Z79.4) Peripheral vascular disease, unspecified (I73.9) Peripheral vascular disease, unspecified Mixed hyperlipidemia (CMS/HCC) Mixed hyperlipidemia Iron deficiency anemia, unspecified iron deficiency anemia type Type 2 diabetes mellitus without complication, with long-term current use of insulin (CMS/HCC) COPD, moderate (CMS/HCC) Primary hypertension (CMS/HCC) Unspecified essential hypertension 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 (CMS/HCC) PAD (peripheral artery disease) (CMS/HCC) Unspecified peripheral vascular disease Nonrheumatic mitral valve regurgitation Riley's esophagus with dysplasia Benign prostatic hyperplasia with lower urinary tract symptoms, symptom details unspecified Primary hypertension (CMS/HCC)- Primary Unspecified essential hypertension Type 2 diabetes mellitus without complication, with long-term current use of insulin (CMS/HCC) 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 (CMS/HCC)- Primary Type 2 diabetes mellitus with other specified complication (CMS/HCC) Male erectile dysfunction, unspecified Type 2 diabetes mellitus 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 (CMS/HCC) Acute cough Primary hypertension (CMS/HCC) Unspecified essential hypertension Paroxysmal atrial fibrillation (CMS/HCC) Atrial fibrillation Type 2 diabetes mellitus without complication, with long-term current use of insulin (CMS/HCC) 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 (CMS/HCC)- Primary Other [...] peripheral vascular disease 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 (CMS/HCC) Riley's esophagus with dysplasia Erectile dysfunction due to diseases classified elsewhere Benign prostatic hyperplasia with lower urinary tract symptoms, symptom details unspecified Colon cancer screening Special screening for malignant neoplasms, colon Tubulovillous adenoma of colon Lumbosacral spondylosis without myelopathy Type 2 diabetes mellitus without complication, with long-term current use of insulin (CMS/HCC) documented in this encounter [facility] HealthcareEvaluation note* Diagnosis Encounter for colonoscopy due to history of colonic polyp- Primary 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 [facility]* Diagnosis Type 2 diabetes mellitus without complication, with long-term current use of insulin (CMS/HCC)- Primary Primary hypertension (CMS/HCC) Unspecified essential hypertension 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 (CMS/HCC) PAD (peripheral artery disease) (CMS/HCC) Unspecified peripheral vascular disease Iron deficiency anemia, unspecified iron deficiency anemia type Lumbosacral pain Encounter for subsequent annual wellness visit (AWV) in Medicare patient- Primary custodial (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 of insulin (Z79.4) Peripheral vascular disease, unspecified (I73.9) Peripheral vascular disease, unspecified Mixed hyperlipidemia (CMS/HCC) Mixed hyperlipidemia Iron deficiency anemia, unspecified iron deficiency anemia type Type 2 diabetes mellitus without complication, with long-term current use of insulin (CMS/HCC) COPD, moderate (CMS/HCC) Primary hypertension (CMS/HCC) Unspecified essential hypertension 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 (CMS/HCC) PAD (peripheral artery disease) (CMS/HCC) Unspecified peripheral vascular disease Nonrheumatic mitral valve regurgitation Riley's esophagus with dysplasia Benign prostatic hyperplasia with lower urinary tract symptoms, symptom details unspecified Primary hypertension (CMS/HCC)- Primary Unspecified essential hypertension Type 2 diabetes mellitus without complication, with long-term current use of insulin (CMS/HCC) 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 (CMS/HCC)- Primary Type 2 diabetes mellitus with other specified complication (CMS/HCC) Male erectile dysfunction, unspecified Type 2 diabetes mellitus 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 (CMS/HCC) Acute cough Primary hypertension (CMS/HCC) Unspecified essential hypertension Paroxysmal atrial fibrillation (CMS/HCC) Atrial fibrillation Type 2 diabetes mellitus without complication, with long-term current use of insulin (CMS/HCC) 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 (CMS/HCC)- Primary Other [...] peripheral vascular disease 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 (CMS/HCC) Riley's [...] (CMS/HCC) Atrial fibrillation 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 (CMS/HCC) Primary hypertension (CMS/HCC) Unspecified essential hypertension PAD (peripheral artery disease) (CMS/HCC) Unspecified peripheral vascular disease Iron deficiency anemia, unspecified iron deficiency anemia type Mixed hyperlipidemia (CMS/HCC) Mixed hyperlipidemia Primary insomnia Persistent disorder of initiating or maintaining sleep documented in this encounter [facility] HealthcareEvaluation note* Diagnosis Type 2 diabetes mellitus without complication, with long-term current use of insulin (CMS/HCC)- Primary Primary hypertension (CMS/HCC) Unspecified essential hypertension 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 (CMS/HCC) PAD (peripheral artery disease) (CMS/HCC) Unspecified peripheral vascular disease Iron deficiency anemia, unspecified iron deficiency anemia type Lumbosacral pain Encounter for subsequent annual wellness visit (AWV) in Medicare patient- Primary custodial (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 of insulin (Z79.4) Peripheral vascular disease, unspecified (I73.9) Peripheral vascular disease, unspecified Mixed hyperlipidemia (CMS/HCC) Mixed hyperlipidemia Iron deficiency anemia, unspecified iron deficiency anemia type Type 2 diabetes mellitus without complication, with long-term current use of insulin (CMS/HCC) COPD, moderate (CMS/HCC) Primary hypertension (CMS/HCC) Unspecified essential hypertension 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 (CMS/HCC) PAD (peripheral artery disease) (CMS/HCC) Unspecified peripheral vascular disease Nonrheumatic mitral valve regurgitation Riley's esophagus with dysplasia Benign prostatic hyperplasia with lower urinary tract symptoms, symptom details unspecified Primary hypertension (CMS/HCC)- Primary Unspecified essential hypertension Type 2 diabetes mellitus without complication, with long-term current use of insulin (/HCC) 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 (CMS/HCC)- Primary Type 2 diabetes mellitus with other specified complication (CMS/HCC) Male erectile dysfunction, unspecified Type 2 diabetes mellitus 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 (CMS/HCC) Acute cough Primary hypertension (CMS/HCC) Unspecified essential hypertension Paroxysmal atrial fibrillation (CMS/HCC) Atrial fibrillation Type 2 diabetes mellitus without complication, with long-term current use of insulin (/HCC) 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 (CMS/HCC)- Primary Other [...] peripheral vascular disease 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 (CMS/HCC) Riley's [...] (CMS/HCC) Atrial fibrillation 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 (CMS/HCC) Primary hypertension (CMS/HCC) Unspecified essential hypertension PAD (peripheral artery disease) (CMS/HCC) Unspecified peripheral vascular disease Iron deficiency anemia, unspecified iron deficiency anemia type Mixed hyperlipidemia (CMS/HCC) Mixed hyperlipidemia Primary insomnia 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- Primary documented in this encounter [facility] HealthcareEvaluation note* Diagnosis Type 2 diabetes mellitus without complication, with long-term current use of insulin- Primary Primary hypertension (CMS/HCC) Unspecified essential hypertension 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 (CMS/HCC) PAD (peripheral artery disease) (CMS/HCC) Unspecified peripheral vascular disease Iron deficiency anemia, unspecified iron deficiency anemia type Lumbosacral pain Encounter for subsequent annual wellness visit (AWV) in Medicare patient- Primary intermediate card tender (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 of insulin (Z79.4) Peripheral vascular disease, unspecified (I73.9) Peripheral vascular disease, unspecified Mixed hyperlipidemia (CMS/HCC) Mixed hyperlipidemia Iron deficiency anemia, unspecified iron deficiency anemia type Type 2 diabetes mellitus without complication, with long-term current use of insulin COPD, moderate (CMS/HCC) Primary hypertension (CMS/HCC) Unspecified essential hypertension 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 (CMS/HCC) PAD (peripheral artery disease) (CMS/HCC) Unspecified peripheral vascular disease Nonrheumatic mitral valve regurgitation Riley's esophagus with dysplasia Benign prostatic hyperplasia with lower urinary tract symptoms, symptom details unspecified Primary hypertension (CMS/HCC)- Primary Unspecified essential hypertension Type 2 diabetes mellitus without complication, with long-term current use of insulin 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 (CMS/HCC)- Primary Type 2 diabetes mellitus with other specified complication Male erectile dysfunction, unspecified Type 2 diabetes mellitus 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 (CMS/HCC) Acute cough Primary hypertension (CMS/HCC) Unspecified essential hypertension Paroxysmal atrial fibrillation (CMS/HCC) Atrial fibrillation Type 2 diabetes mellitus without complication, with long-term current use of insulin 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 (CMS/HCC)- Primary Other [...] peripheral vascular disease 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 (CMS/HCC) Riley's [...] (CMS/HCC) Atrial fibrillation 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 (CMS/HCC) Primary hypertension [...] Unspecified essential hypertension 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 (CMS/HCC) PAD (peripheral artery disease) (CMS/HCC) Unspecified peripheral vascular disease Iron deficiency anemia, unspecified iron deficiency anemia type Lumbosacral pain Encounter for subsequent annual wellness visit (AWV) in Medicare patient- Primary intermediate card tender (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 of insulin (Z79.4) Peripheral vascular disease, unspecified (I73.9) Peripheral vascular disease, unspecified Mixed hyperlipidemia (CMS/HCC) Mixed hyperlipidemia Iron deficiency anemia, unspecified iron deficiency anemia type Type 2 diabetes mellitus without complication, with long-term current use of insulin COPD, moderate (CMS/HCC) Primary hypertension (CMS/HCC) Unspecified essential hypertension 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 (CMS/HCC) PAD (peripheral artery disease) (CMS/HCC) Unspecified peripheral vascular disease Nonrheumatic mitral valve regurgitation Riley's esophagus with dysplasia Benign prostatic hyperplasia with lower urinary tract symptoms, symptom details unspecified Primary hypertension (CMS/HCC)- Primary Unspecified essential hypertension Type 2 diabetes mellitus without complication, with long-term current use of insulin 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 (CMS/HCC)- Primary Type 2 diabetes mellitus with other specified complication Male erectile dysfunction, unspecified Type 2 diabetes mellitus 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 (CMS/HCC) Acute cough Primary hypertension (CMS/HCC) Unspecified essential hypertension Paroxysmal atrial fibrillation (CMS/HCC) Atrial fibrillation Type 2 diabetes mellitus without complication, with long-term current use of insulin 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 (CMS/HCC)- Primary Other [...] peripheral vascular disease 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 (CMS/HCC) Riley's [...] (CMS/HCC) Atrial fibrillation 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 (CMS/HCC) Primary hypertension (CMS/HCC) Unspecified essential hypertension PAD (peripheral artery disease) (CMS/HCC) Unspecified peripheral vascular disease Iron deficiency anemia, unspecified iron deficiency anemia type Mixed hyperlipidemia (CMS/HCC) Mixed hyperlipidemia Primary insomnia Persistent disorder of initiating or maintaining sleep Type 2 diabetes mellitus without complication, with long-term current use of insulin documented in this encounter [facility] HealthcareEvaluation note* Diagnosis Type 2 diabetes mellitus without complication, with long-term current use of insulin- Primary Primary hypertension (CMS/HCC) Unspecified essential hypertension 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 (CMS/HCC) PAD (peripheral artery disease) (CMS/HCC) Unspecified peripheral vascular disease Iron deficiency anemia, unspecified iron deficiency anemia type Lumbosacral pain Encounter for subsequent annual wellness visit (AWV) in Medicare patient- Primary custodial (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 of insulin (Z79.4) Peripheral vascular disease, unspecified (I73.9) Peripheral vascular disease, unspecified Mixed hyperlipidemia (CMS/HCC) Mixed hyperlipidemia Iron deficiency anemia, unspecified iron deficiency anemia type Type 2 diabetes mellitus without complication, with long-term current use of insulin COPD, moderate (CMS/HCC) Primary hypertension (CMS/HCC) Unspecified essential hypertension 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 (CMS/HCC) PAD (peripheral artery disease) (CMS/HCC) Unspecified peripheral vascular disease Nonrheumatic mitral valve regurgitation Riley's esophagus with dysplasia Benign prostatic hyperplasia with lower urinary tract symptoms, symptom details unspecified Primary hypertension (CMS/HCC)- Primary Unspecified essential hypertension Type 2 diabetes mellitus without complication, with long-term current use of insulin 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 (CMS/HCC)- Primary Type 2 diabetes mellitus with other specified complication Male erectile dysfunction, unspecified Type 2 diabetes mellitus 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 (CMS/HCC) Acute cough Primary hypertension (CMS/HCC) Unspecified essential hypertension Paroxysmal atrial fibrillation (CMS/HCC) Atrial fibrillation Type 2 diabetes mellitus without complication, with long-term current use of insulin 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 (CMS/HCC)- Primary Other [...] peripheral vascular disease 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 (CMS/HCC) Riley's [...] (CMS/HCC) Atrial fibrillation 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 (CMS/HCC) Primary hypertension ([facility]/HCC) Unspecified essential hypertension PAD (peripheral artery disease) ([facility]/HCC) Unspecified peripheral vascular disease Iron deficiency anemia, unspecified iron deficiency anemia type Mixed hyperlipidemia (CMS/HCC) Mixed hyperlipidemia Primary insomnia Persistent disorder of initiating or maintaining sleep Encounter for subsequent annual wellness visit (AWV) in Medicare patient- Primary Centrilobular emphysema (CMS/HCC) Paroxysmal atrial fibrillation ([facility]/HCC) Atrial fibrillation Bilateral carotid artery disease, unspecified type ([facility]) Primary hypertension ([facility]) Unspecified essential hypertension Type 2 diabetes mellitus without complication, with long-term current use of insulin Type 2 diabetes mellitus with other specified complication, with long-term current use of insulin Mixed hyperlipidemia ([facility]) Mixed hyperlipidemia Dizziness and giddiness documented in this encounter [facility] HealthcareEvaluation note* Diagnosis Type 2 diabetes mellitus without complication, with long-term current use of insulin (HCC)- Primary Primary hypertension Unspecified essential hypertension 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 PAD (peripheral artery disease) Unspecified peripheral vascular disease Iron deficiency anemia, unspecified iron deficiency anemia type Lumbosacral pain Encounter for subsequent annual wellness visit (AWV) in Medicare patient- Primary custodial (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 of insulin (Z79.4) Peripheral vascular disease, unspecified (I73.9) Peripheral vascular disease, unspecified Mixed hyperlipidemia Mixed hyperlipidemia Iron deficiency anemia, unspecified iron deficiency anemia type Type 2 diabetes mellitus without complication, with long-term current use of insulin (HCC) COPD, moderate (HCC) Primary hypertension Unspecified essential hypertension 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 PAD (peripheral artery disease) Unspecified peripheral vascular disease Nonrheumatic mitral valve regurgitation Riley's esophagus with dysplasia Benign prostatic hyperplasia with lower urinary tract symptoms, symptom details unspecified Primary hypertension- Primary Unspecified essential hypertension Type 2 diabetes mellitus without complication, with long-term current use of insulin (HCC) 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- Primary Type 2 diabetes mellitus with other specified complication (HCC) Male erectile dysfunction, unspecified Type 2 diabetes mellitus 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 (HCC) Acute cough Primary hypertension Unspecified essential hypertension Paroxysmal atrial fibrillation (HCC) Atrial fibrillation Type 2 diabetes mellitus without complication, with long-term current use of insulin (HCC) 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- Primary Other thrombophilia [...] peripheral vascular disease 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 Riley's esophagus [...] (HCC) Atrial fibrillation 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 Primary hypertension Unspecified [...] of insulin (HCC) documented in this encounter [facility] HealthcareEvaluation note* Diagnosis Type 2 diabetes mellitus without complication, with long-term current use of insulin (HCC)- Primary Primary hypertension Unspecified essential hypertension 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 PAD (peripheral artery disease) Unspecified peripheral vascular disease Iron deficiency anemia, unspecified iron deficiency anemia type Lumbosacral pain Encounter for subsequent annual wellness visit (AWV) in Medicare patient- Primary custodial (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 of insulin (Z79.4) Peripheral vascular disease, unspecified (I73.9) Peripheral vascular disease, unspecified Mixed hyperlipidemia Mixed hyperlipidemia Iron deficiency anemia, unspecified iron deficiency anemia type Type 2 diabetes mellitus without complication, with long-term current use of insulin (HCC) COPD, moderate (HCC) Primary hypertension Unspecified essential hypertension 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 PAD (peripheral artery disease) Unspecified peripheral vascular disease Nonrheumatic mitral valve regurgitation Riley's esophagus with dysplasia Benign prostatic hyperplasia with lower urinary tract symptoms, symptom details unspecified Primary hypertension- Primary Unspecified essential hypertension Type 2 diabetes mellitus without complication, with long-term current use of insulin (HCC) 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- Primary Type 2 diabetes mellitus with other specified complication (HCC) Male erectile dysfunction, unspecified Type 2 diabetes mellitus 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 (HCC) Acute cough Primary hypertension Unspecified essential hypertension Paroxysmal atrial fibrillation (HCC) Atrial fibrillation Type 2 diabetes mellitus without complication, with long-term current use of insulin (HCC) 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- Primary Other thrombophilia [...] peripheral vascular disease 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 Riley's esophagus [...] (HCC) Atrial fibrillation 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 Primary hypertension Unspecified [...] (HCC) Atrial fibrillation documented in this encounter [facility] HealthcareEvaluation note* Diagnosis Type 2 diabetes mellitus without complication, with long-term current use of insulin (HCC)- Primary Primary hypertension Unspecified essential hypertension 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 PAD (peripheral artery disease) Unspecified peripheral vascular disease Iron deficiency anemia, unspecified iron deficiency anemia type Lumbosacral pain Encounter for subsequent annual wellness visit (AWV) in Medicare patient- Primary intermediate card tender (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 of insulin (Z79.4) Peripheral vascular disease, unspecified (I73.9) Peripheral vascular disease, unspecified Mixed hyperlipidemia Mixed hyperlipidemia Iron deficiency anemia, unspecified iron deficiency anemia type Type 2 diabetes mellitus without complication, with long-term current use of insulin (HCC) COPD, moderate (HCC) Primary hypertension Unspecified essential hypertension 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 PAD (peripheral artery disease) Unspecified peripheral vascular disease Nonrheumatic mitral valve regurgitation Riley's esophagus with dysplasia Benign prostatic hyperplasia with lower urinary tract symptoms, symptom details unspecified Primary hypertension- Primary Unspecified essential hypertension Type 2 diabetes mellitus without complication, with long-term current use of insulin (HCC) 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- Primary Type 2 diabetes mellitus with other specified complication (HCC) Male erectile dysfunction, unspecified Type 2 diabetes mellitus 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 (HCC) Acute cough Primary hypertension Unspecified essential hypertension Paroxysmal atrial fibrillation (HCC) Atrial fibrillation Type 2 diabetes mellitus without complication, with long-term current use of insulin (HCC) 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- Primary Other thrombophilia [...] peripheral vascular disease 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 Riley's esophagus [...] (HCC) Atrial fibrillation 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 Primary hypertension Unspecified [...] this section [facility] Discharge instructions No data available for this section [facility] InstructionsNot on filedocumented in this encounter [facility] filed[facility]ructionsNot on filedocumented in this encounter [facility]ructionsNot on filedocumented in this encounter [facility]ructionsNot on filedocumented in this encounter [facility] System[facility]ructionsNot on filedocumented in this encounter [facility] note No data available for this section [facility] Reason for visit Narrative* Consultation (Routine) - Pending Review Specialty Diagnoses / Procedures Referred By Kendra healy Referred To Contact Cardiac Rehabilitation Diagnoses Stented coronary artery Procedures Ambulatory referral to Cardiac Rehabilitation ([facility]) Natasha Campo MD [address] [facility] [address] [facility] [place] [address] Phone: tel: fax: [facility] [address] [place] [address] Phone: tel:[phone] fax:[phone] Referral ID Status Reason Start Date Expiration Date Visits Requested Visits Authorized [id number] Pending Review Specialty Services Required 12/06/2023 12/05/2024 36 36 [facility] Narrative* Consultation (Routine) - Closed Specialty Diagnoses / Procedures Referred By Contac t Referred To Contact Cardiac Rehabilitation Diagnoses Stented coronary artery Procedures Ambulatory referral to Cardiac Rehabilitation ([facility]) Natasha Campo MD [address] [facility] [address] [place] [address] Phone: tel: fax: [facility] [address] [place] [address] Phone: tel:[phone] fax:[phone] Referral ID Status Reason Start Date Expiration Date V isits Requested Visits Authorized [id number] Closed Specialty Services Required 12/06/2023 12/05/2024 36 36 [facility] for visit Narrative* Consultation (Routine) - Authorized Specialty Diagnoses / Procedures Referred By Contac t Referred To Contact Cardiac Rehabilitation Diagnoses Stented coronary artery Procedures Ambulatory referral to Cardiac Rehabilitation ([facility]) Natasha Campo MD [address] [facility] [address] [place] [address] [facility] Billing [address] [place] [address] Referral ID Status Reason Start Date Expiration Date Visits Requested Visits Authorized [id number] Authorized Specialty Services Required 12/06/2023 12/05/2024 36 36 [facility] for visit Narrative* Consultation (Routine) - Authorized Specialty Diagnoses / Procedures Referred By Contac t Referred To Contact Cardiac Rehabilitation Diagnoses Stented coronary artery Procedures Ambulatory referral to Cardiac Rehabilitation ([facility]) Natasha Campo MD [address] [facility] [address] [place] [address] Phone: tel: fax: [facility] [address] [place] [address] Phone: tel:[phone] fax:[phone] Referral ID Status Reason Start Date Expiration Date Visits Requested Visits Authorized [id number] Authorized Specialty Services Required 12/06/2023 12/05/2024 36 [...] and content) DATE CREATED AUTHOR 03/08/2021 [facility] DATE CREATED AUTHOR AUTHOR'S ORGANIZ ATION 06/20/[address] [facility] DATE CREATED AUTHOR AUTHOR'S ORGANIZ ATION 03/27/2024 [facility] DATE CREATED AUTHOR AUTHOR'S ORGANIZ ATION 04/10/2024 [facility] DATE CREATED AUTHOR AUTHOR'S ORGANIZ ATION 04/15/2024 [facility] DATE CREATED AUTHOR AUTHOR'S ORGANIZ ATION 07/14/2024 [facility] DATE CREATED AUTHOR AUTHOR'S ORGANIZ ATION 07/19/2024 [employer] [facility] DATE CREATED AUTHOR AUTHOR'S ORGANIZ ATION 07/22/2024 [facility] Sylvester [facility] DATE CREATED AUTHOR AUTHOR'S ORGANIZ ATION 07/23/2024 [employer] Brooks [facility] DATE CREATED AUTHOR AUTHOR'S ORGANIZ ATION 09/28/2024 [facility] DATE CREATED AUTHOR AUTHOR'S ORGANIZ ATION 11/26/2024 [facility] Patient Care team informatio n (unrecognized section and content) Rooms Director Relationship Specialty Start Date End Date Prabhjot Villatoor MD [address] [place] [address] PCP - General Family Medicine 04/06/23 Marisol Boyce NP [address] [place] [address] Nurse Practitioner Family Medicine 03/28/22 Rooms Director Relationship Specialty Start Date End Date Prabhjot Villatoro MD [address] [place] [phone] PCP - General Family Medicine 04/06/23 Marisol Boyce NP [address] [place] [address] Nurse Practitioner Family Medicine 03/28/22 Rooms Director Relationship Specialty Start Date End Date Prabhjot Villatoro MD [address] [place] [address] PCP - General Family Medicine 06/07/23 Marisol Boyce NP [address] [place] [address] Nurse Practitioner Family Medicine 03/28/22 Marisol Boyce NP [address] [place] [address] Nurse Practitioner Family Medicine 06/07/23 Rooms Director Relationship Specialty Start Date End Date Prabhjot Villatoro MD [address] [place] [address] PCP - General Family Medicine 06/07/23 Marisol Boyce NP [address] [place] [address] Nurse Practitioner Family Medicine 03/28/22 Marisol Boyce NP [address] [place] [address] Nurse Practitioner Family Medicine 06/07/23 Rooms Director Relationship Specialty Start Date End Date Prabhjot Villatoro MD [address] [place] [address] PCP - General Family Medicine 06/07/23 Marisol Boyce NP [address] [place] [address] Nurse Practitioner Family Medicine 03/28/22 Marisol Boyce NP [address] [place] [address] Nurse Practitioner Family Medicine 06/07/23 Rooms Director Relationship Specialty Start Date End Date Prabhjot Villatoro MD [address] [place] [address] PCP - General Family Medicine 06/07/23 Marisol Boyce NP [address] [place] [address] Nurse Practitioner Family Medicine 03/28/22 Marisol Boyce NP [address] [place] [address] Nurse Practitioner Family Medicine 06/07/23 Rooms Director Relationship Specialty Start Date End Date Prabhjot Villatoro MD [address] [place] [address] PCP - General Family Medicine 06/07/23 Marisol Boyce NP [address] [place] [address] Nurse Practitioner Family Medicine 03/28/22 Marisol Boyce NP [address] [place] [address] Nurse Practitioner Family Medicine 06/07/23 Rooms Director Relationship Specialty Start Date End Date Prabhjot Villatoro MD [address] [place] [address] PCP - General Family Medicine 06/07/23 Marisol Boyce NP [address] [place] [address] Nurse Practitioner Family Medicine 03/28/22 Marisol Boyce NP [address] [place] [address] Nurse Practitioner Family Medicine 06/07/23 Rooms Director Relationship Specialty Start Date End Date Prabhjot Villatoro MD [address] [place] [address] PCP - General Family Medicine 06/07/23 Marisol Boyce NP [address] [place] [address] Nurse Practitioner Family Medicine 03/28/22 Marisol Boyce NP [address] [place] [address] Nurse Practitioner Family Medicine 06/07/23 Rooms Director Relationship Specialty Start Date End Date Prabhjot Villatoro MD [address] [place] [address] PCP - General Family Medicine 06/07/23 Marisol Boyce NP [address] [place] [address] Nurse Practitioner Family Medicine 03/28/22 Marisol Boyce NP [address] [place] [address] Nurse Practitioner Family Medicine 06/07/23 Rooms Director Relationship Specialty Start Date End Date Prabhjot Villatoro MD [address] [place] [address] PCP - General Family Medicine 06/07/23 Marisol Boyce NP [address] [place] [address] Nurse Practitioner Family Medicine 03/28/22 Marisol Boyce NP [address] [place] [address] Nurse Practitioner Family Medicine 06/07/23 Rooms Director Relationship Specialty Start Date End Date Prabhjot Villatoro MD [address] [place] [address] PCP - General Family Medicine 06/07/23 Marisol Boyce NP [address] [place] [address] Nurse Practitioner Family Medicine 03/28/22 Marisol Boyce NP [address] [place] [address] Nurse Practitioner Family Medicine 06/07/23 Rooms Director Relationship Specialty Start Date End Date Marisol Boyce APRN-CRIMPING PRESS OPERATOR PCP - General Nurse Practitioner 10/16/18 Rooms Director Relationship Specialty Start Date End Date Marisol Boyce, TIMBER FALLER-CRIMPING PRESS OPERATOR PCP - General Nurse Practitioner 10/16/18 Rooms Director Relationship Specialty Start Date End Date Prabhjot Villatoro MD [address] [place] [address] PCP - General Family Medicine 06/07/23 Marisol Boyce NP [address] [place] [address] Nurse Practitioner Family Medicine 03/28/22 Marisol Boyce NP [address] [place] [address] Nurse Practitioner Family Medicine 06/07/23 Rooms Director Relationship Specialty Start Date End Date Marisol Boyce APRN-CRIMPING PRESS OPERATOR PCP - General Nurse Practitioner 10/16/18 Rooms Director Relationship Specialty Start Date End Date Prabhjot Villatoro MD [address] [place] [address] PCP - General Family Medicine 06/07/23 Marisol Boyce NP [address] [place] [address] Nurse Practitioner Family [facility] 03/28/22 Marisol Boyce NP [address] [place] [address] Nurse Practitioner Family Medicine 06/07/23 Team Status: Inactive Member Role Status Dawson Mauricio DO Attending Provider Active Start: April 11, 2024 End: April 11, 2024 Rooms Director Relationship Specialty Start Date End Date Marisol Boyce APRN-CNP PCP - General Nurse Practitioner 10/16/18 Rooms Director Relationship Specialty Start Date End Date Marisol Boyce APRN-CRIMPING PRESS OPERATOR PCP - General Nurse Practitioner 10/16/18 Rooms Director Relationship Specialty Start Date End Date [facility] PCP - General Nurse Practitioner 10/16/18 Rooms Director Relationship Specialty Start Date End Date [facility] PCP - General Nurse Practitioner 10/16/18 Rooms Director Relationship Specialty Start Date End Date [facility] PCP - General Nurse Practitioner 10/16/18 Rooms Director Relationship Specialty Start Date End Date [facility] PCP - General Nurse Practitioner 10/16/18 Rooms Director Relationship Specialty Start Date End Date [facility] PCP - General Nurse Practitioner 10/16/18 Rooms Director Relationship Specialty Start Date End Date [facility] PCP - General Nurse Practitioner 10/16/18 Rooms Director Relationship Specialty Start Date End Date [facility] PCP - General Nurse Practitioner 10/16/18 Rooms Director Relationship Specialty Start Date End Date [facility] PCP - General Nurse Practitioner 10/16/18 Rooms Director Relationship Specialty Start Date End Date Prabhjot Villatoro MD [address] [place] [address] PCP - General Family Medicine 06/07/23 Marisol Boyce NP [address] [place] [address] PCP - ACO Reach 05/04/24 Marisol Boyce NP [address] [place] [address] Nurse Practitioner Family Medicine 03/28/22 Marisol Boyce NP [address] [place] [address] Nurse Practitioner Family Medicine 06/07/23 Rooms Director Relationship Specialty Start Date End Date Marisol Boyce APRN-CRIMPING PRESS OPERATOR PCP - General Nurse Practitioner 10/16/18 Rooms Director Relationship Specialty Start Date End Date Marisol Boyce APRN-CRIMPING PRESS OPERATOR PCP - General Nurse Practitioner 10/16/18 Rooms Director Relationship Specialty Start Date End Date Marisol Boyce TIMBER FALLER-CRIMPING PRESS OPERATOR PCP - General Nurse Practitioner 10/16/18 Rooms Director Relationship Specialty Start Date End Date Marisol Boyce APRN-CRIMPING PRESS OPERATOR PCP - General Nurse Practitioner 10/16/18 Rooms Director Relationship Specialty Start Date End Date Marisol Boyce, TIMBER FALLER-CRIMPING PRESS OPERATOR PCP - General Nurse Practitioner 10/16/18 Rooms Director Relationship Specialty Start Date End Date [facility] P[facility] - General Nurse Practitioner 10/16/18 Rooms Director Relationship Specialty Start Date End Date Marisol Boyce, [facility] PCP - General Nurse Practitioner 10/16/18 Rooms Director Relationship Specialty Start Date End Date Marisol Boyce, [facility] PCP - General Nurse Practitioner 10/16/18 Rooms Director Relationship Specialty Start Date End Date Prabhjot Villatoro MD [address] [place] [address] PCP - General Family Medicine 06/07/23 Marisol Boyce NP [address] [place] [address] PCP - ACO Reach 05/04/24 Marisol Boyce NP [address] [place] [address] Nurse Practitioner Family Medicine 03/28/22 Marisol Boyce NP [address] [place] [address] Nurse Practitioner Family Medicine 06/07/23 Rooms Director Relationship Specialty Start Date End Date Prabhjot Villatoro MD [address] [place] [address] PCP - General Family Medicine 06/07/23 Marisol Boyce NP [address] [place] [address] PCP - ACO Reach 05/04/24 Marisol Boyce NP [address] [place] [address] Nurse Practitioner Family Medicine 03/28/22 Marisol Boyce NP [address] [place] [address] Nurse Practitioner Family Medicine 06/07/23 Rooms Director Relationship Specialty Start Date End Date Prabhjot Villatoro MD [address] [place] [address] PCP - General Family Medicine 06/07/23 Marisol Boyce NP [address] [place] [address] PCP - ACO Reach 05/04/24 Marisol Boyce NP [address] [place] [address] Nurse Practitioner Family Medicine 03/28/22 Marisol Boyce NP [address] [place] [address] Nurse Practitioner Family Medicine 06/07/23 Rooms Director Relationship Specialty Start Date End Date Prabhjot Villatoro MD [address] [place] [address] PCP - General Family Medicine 06/07/23 Marisol Byoce NP [address] [place] [address] PCP - ACO Reach 05/04/24 Marisol Boyce NP [address] [place] [address] Nurse Practitioner Family Medicine 03/28/22 Marisol Boyce NP [address] [place] [address] Nurse Practitioner Family Medicine 06/07/23 Rooms Director Relationship Specialty Start Date End Date Prabhjot Villatoro MD [address] [place] [address] PCP - General Family Medicine 06/07/23 Marisol Boyce NP [address] [place] [address] PCP - ACO Reach 05/04/24 Marisol Boyce NP [address] [place] [address] Nurse Practitioner Family Medicine 03/28/22 Marisol Boyce NP [address] [place] [address] Nurse Practitioner Family Medicine 06/07/23 Rooms Director Relationship Specialty Start Date End Date Prabhjot Villatoro MD [address] [place] [address] PCP - General Family Medicine 06/07/23 Marisol Boyce NP [address] [place] [address] PCP - ACO Reach 05/04/24 Marisol Boyce NP [address] [place] [address] Nurse Practitioner Family Medicine 03/28/22 Marisol Boyce NP [address] [place] [address] Nurse Practitioner Family Medicine 06/07/23 Rooms Director Relationship Specialty Start Date End Date Prabhjot Villatoro MD [address] [place] [address] PCP - General Family Medicine 06/07/23 Marisol Boyce NP [address] [place] [address] PCP - ACO Reach 05/04/24 Marisol Boyce NP [address] [place] [address] Nurse Practitioner Family Medicine 03/28/22 Marisol Boyce NP [address] [place] [address] Nurse Practitioner Family Medicine 06/07/23 Rooms Director Relationship Specialty Start Date End Date Prabhjot Villatoro MD [address] [place] [address] PCP - General Family Medicine 06/07/23 Marisol Boyce NP [address] [place] [address] PCP - ACO Reach 05/04/24 Marisol Boyce NP [address] [place] [address] Nurse Practitioner Family Medicine 03/28/22 Marisol Boyce NP [address] [place] [address] Nurse Practitioner Family Medicine 06/07/23 Rooms Director Relationship Specialty Start Date End Date Prabhjot Villatoro MD [address] [place] [address] PCP - General Family Medicine 06/07/23 Marisol Boyce NP [address] [place] [address] PCP - ACO Reach 05/04/24 Marisol Boyce NP [address] [place] [address] Nurse Practitioner Family Medicine 03/28/22 Marisol Boyce NP [address] [place] [address] Nurse Practitioner Family Medicine 06/07/23 Rooms Director Relationship Specialty Start Date End Date Prabhjot Villatoro MD [address] [place] [address] PCP - General Family Medicine 06/07/23 Marisol Boyce NP [address] [place] [address] PCP - ACO Reach 05/04/24 Marisol Boyce NP [address] [place] [address] Nurse Practitioner Family Medicine 03/28/22 Marisol Boyce NP [address] [place] [address] Nurse Practitioner Family Medicine 06/07/23 Rooms Director Relationship Specialty Start Date End Date Prabhjot Villatoro MD [address] [place] [address] PCP - General Family Medicine 06/07/23 Marisol Boyce NP [address] [place] [address] PCP - ACO Reach 05/04/24 Marisol Boyce NP [address] [place] [address] Nurse Practitioner Family Medicine 03/28/22 Marisol Boyce NP [address] [place] [address] Nurse Practitioner Family Medicine 06/07/23 Rooms Director Relationship Specialty Start Date End Date Prabhjot Villatoro MD [address] [place] [address] PCP - General Family Medicine 06/07/23 Marisol Boyce NP [address] [place] [address] PCP - ACO Reach 05/04/24 Marisol Boyce NP [address] [place] [address] Nurse Practitioner Family Medicine 03/28/22 Marisol Boyce NP [address] [place] [address] Nurse Practitioner Family Medicine 06/07/23 Reason for Visit (unrecogniz ed section and content) Reason Comments Med Refill Reason Comments Follow-up Update H&P, EGD/[place] n scheduled 04/11/24 at [facility] Reason Comments Colon Cancer Screening DUE FOR 5 YEAR RE CALL, LAST COLON 10-26-18 Specialty Diagnoses / Procedures Referred By Kendra healy Referred To Contact General Surgery Diagnoses Colon cancer screening Tubulovillous adenoma of colon Procedures [place] OFFICE OUTPATIENT VISIT 60-74 MINS HIGH MDM [id number] (SNOMED CT) - AMB REFERRAL TO GENERAL SURGERY Marisol Boyce, TIMBER FALLER-CRIMPING PRESS OPERATOR [address] [place] [address] Phone: tel: fax: Sabino Mauricio DO [facility] [place] [address] Phone: tel: fax: Referral ID Status Reason Start Date Expiration Date Visits Re quested Visits Authorized [id number] Closed 02/15/2024 08/13/2024 1 1 Reason Comments [...] BE BASED ON THE PRIMARY CLINICAL RECORDS. [employer] provides no warranty or guarantee of the accuracy or completeness of information in this document.
[2024-11-27 14:26] LABS: Iron 14.0 ug/dL (65.0-175.0); Percent Iron Saturation 4.1 %; Total Iron Binding Capacity 339.0 ug/dL (250.0-450.0)
[2024-11-27 15:15] LABS: Glucose Urine UA >=1000 mg/dL (NEGATIVE)
[2024-11-27 15:21] LABS: Crystals Seen? None Seen #/HPF (None Seen)
[2024-11-27 15:22] LABS: Cast Seen? NONE SEEN #/LPF (NONE SEEN); Urine Culture Indicated NO
--- NOTE | 2024-11-27 15:51 | PM.IMHP1 ---
Internal Medicine - H&P: HPI History of Present Illness Chief complaint: WEAKNESS SOB CHEST PAIN, [facility]IA [facility] History (Updated 11/27/24 @ 13:09 by Clem Daniels DO) COVID-19 ?U07.1 - COVID-19 (ICD-10) Back pain ?M54.9 - Dorsalgia, unspecified (ICD-10) Arthritis ?M19.90 - Unspecified osteoarthritis, unspecified site (ICD-10) Anemia ?D64.9 - Anemia, unspecified (ICD-10) Sleep apnea ?G47.30 - Sleep apnea, unspecified (ICD-10) High cholesterol ?E78.00 - Pure hypercholesterolemia, unspecified (ICD-10) Myocardial infarction ?I21.9 - Acute myocardial infarction, unspecified (ICD-10) Barretts esophagus ?K22.70 - Palmer's esophagus without dysplasia (ICD-10) Colon polyp ?K63.5 - Polyp of colon (ICD-10) COPD (chronic obstructive pulmonary disease) ?J44.9 - Chronic obstructive pulmonary disease, unspecified (ICD-10) Mitral valve regurgitation ?I34.0 - Nonrheumatic mitral (valve) insufficiency (ICD-10) Chronic heart failure ?I50.9 - Heart failure, unspecified (ICD-10) Coronary atherosclerosis ?I25.10 - Atherosclerotic heart disease of [place] coronary artery without angina pectoris (ICD-10) Peripheral artery disease ?I73.9 - Peripheral vascular disease, unspecified (ICD-10) Hypertension ?I10 - Essential (primary) hypertension (ICD-10) 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 - Endocarditis, valve unspecified (ICD-10) Diabetes ?E11.9 - Type 2 diabetes mellitus without complications (ICD-10) Atrial fibrillation ?I48.91 - Unspecified atrial fibrillation (ICD-10) Fatigue ?R53.83 - Other fatigue (ICD-10) Non-ST elevated myocardial infarction (non-STEMI) ?I21.4 - Non-ST elevation (NSTEMI) myocardial infarction (ICD-10) CAD (coronary artery disease) ?I25.10 - Atherosclerotic heart disease of [place] coronary artery without angina pectoris (ICD-10) Surgical History (Updated 04/11/24 @ 10:21 by Kelly Mcnulty) History of esophagogastroduodenoscopy (EGD) ?Z98.890 - Other specified postprocedural states (ICD-10) History of colonoscopy ?Z98.890 - Other specified postprocedural states (ICD-10) H/O carotid endarterectomy ?Z98.890 - Other specified postprocedural states (ICD-10) H/O vascular surgery ?Z98.890 - Other specified postprocedural states (ICD-10) History of cardiac catheterization ?Z98.890 - Other specified postprocedural states (ICD-10) H/O shoulder surgery ?Z98.890 - Other specified postprocedural states (ICD-10) History of cholecystectomy ?Z90.49 - Acquired absence of other specified parts of digestive tract (ICD-10) S/P arterial stent ?Z95.9 - Presence of cardiac and vascular implant and graft, unspecified (ICD-10) Family History (Updated 04/04/24 @ 13:52 by Merissa Altamirano NP) Other Family history of diabetes mellitus Family history of heart disease Family history of lung cancer Social History (Updated 04/04/24 @ 13:41 by Merissa Altamirano NP) Within the past year, how often did you have a drink containing alcohol: monthly or less Smoking status: Current some day smoker Non-prescribed substance use: denies use Highest level of school completed/degree received: Associate degree: academic program Little interest or pleasure in doing things: not at all Feeling down, depressed, or hopeless: not at all Meds Home Medications and Allergies Home Medications ?Medication ?Instructions ?Recorded ?Confirmed ?Type aspirin 81 mg capsule 81 mg PO BEDTIME 09/30/23 11/27/24 History blood sugar diagnostic (OneTouch 09/30/23 11/27/24 History Verio test strips) dapagliflozin propanediol 10 mg 10 mg PO DAILY 09/30/23 11/27/24 History tablet (Farxiga) tamsulosin 0.4 mg capsule 0.4 mg PO BEDTIME 09/30/23 11/27/24 History amiodarone 200 mg tablet 200 mg PO DAILY 04/04/24 11/27/24 History atorvastatin 80 mg tablet 80 mg PO BEDTIME 04/04/24 11/27/24 History carvedilol 3.125 mg tablet 3.125 mg PO Q12H 04/04/24 11/27/24 History ezetimibe 10 mg tablet 10 mg PO BEDTIME 04/04/24 11/27/24 History lisinopril 5 mg tablet 5 mg PO DAILY 04/04/24 11/27/24 History metformin 500 mg tablet 500 mg PO BID 04/04/24 04/11/24 History insulin glargine-yfgn 100 unit/mL 30 unit subcut BEDTIME 11/27/24 11/27/24 History (3 mL) subcutaneous pen (Semglee (insulin glargine-yfgn) Pen) lisinopril 20 mg tablet 20 mg PO DAILY 11/27/24 11/27/24 History omeprazole 40 mg capsule,delayed 40 mg PO DAILY 11/27/24 11/27/24 History release rivaroxaban 20 mg tablet 20 mg PO QPM 11/27/24 11/27/24 History Allergies Allergy/AdvReac Type Severity Reaction Status Date / Time No Known Drug Allergies Allergy Verified 11/27/24 11:16 Exam Constitutional Vital Signs, click to edit/add: Last Vital Signs Temp 97.7 F 11/27/24 15:36 Pulse 55 L 11/27/24 15:36 Resp 18 11/27/24 15:36 BP 157/53 H 11/27/24 15:36 Pulse Ox 98 11/27/24 15:36 O2 Del Method Room Air 11/27/24 15:36 Internal Medicine - H&P: Reslt Labs Labs: Short CBC 11/27/24 Range/Units 11:27 WBC 5.7 (4.0-11.0) 10^3/uL Hgb 7.1 L (14.0-18.0) g/dL Hct 24.2 L (42.0-54.0) % Plt Count 178 (150-450) 10^3/uL BMP 11/27/24 11:27 Sodium 142 Potassium 4.2 Chloride 106 Carbon Dioxide 25.8 BUN 30.0 H Creatinine 1.18 Glucose 310 H Calcium 8.5 Liver Function 11/27/24 Range/Units 11:27 Total Bilirubin 0.7 (0.2-1.0) mg/dL AST 72 H (15-37) U/L ALT 173 H (16-63) U/L Alkaline Phosphatase 108 (46-116) U/L Albumin 3.0 L (3.4-5.0) g/dL Urine 11/27/24 Range/Units 15:00 Urine Color Lt. yellow (YELLOW) Urine Clarity Clear (CLEAR) Urine pH 6.0 (5.0-9.0) Ur Specific Powers 1.010 (1.005-1.025) Urine Protein Negative (NEG/TRACE) mg/dL Urine Glucose (UA) >=1000 A (NEGATIVE) mg/dL
[2024-11-27] MEDS: RIVAROXABAN 10 MG TABLET 20 MG PO (17:55)
[2024-11-27] MEDS: ENSURE HP 237 ML LIQUID PO (17:55)
[2024-11-27 20:07] LABS: Hematocrit 27.0 % (42.0-54.0); Hemoglobin 8.2 g/dL (14.0-18.0)
[2024-11-27] MEDS: ATORVASTATIN CALCIUM 40 MG TABLET 80 MG PO (22:28)
[2024-11-27] MEDS: TAMSULOSIN HCL 0.4 MG CAPSULE PO (22:28)
[2024-11-27] MEDS: ASPIRIN 81 MG TAB.CHEW PO (22:28)
[2024-11-28] VITALS (10 sets, daily range): BP systolic 121–178; BP diastolic 52–72; PULSE 58–69; TEMP 36.3–36.8; O2SAT 90–94
[2024-11-28 05:23] LABS: Hematocrit 26.0 % (42.0-54.0); Hemoglobin 8.0 g/dL (14.0-18.0); Immature Granulocytes Abs Auto 0.02 10^3/uL (0.00-0.03); Immature Granulocytes Pct Auto 0.3 % (0.0-0.5); Lymphocytes Absolute Auto 1.5 10^3/uL (1.2-3.8); Mean Corpuscular HGB Conc 30.8 g/dL (29.9-35.2); Mean Corpuscular Hemoglobin 25.9 pg (25.9-34.0); Mean Corpuscular Volume 84.1 fL (80.0-94.0); Platelet Count 168 10^3/uL (150-450); Red Blood Count 3.09 10^6/uL (4.70-6.10); White Blood Count 6.2 10^3/uL (4.0-11.0)
[2024-11-28 05:43] LABS: Alanine Aminotransferase 135 U/L (16-63); Albumin Globulin Ratio 1.0; Albumin Level 3.1 g/dL (3.4-5.0); Alkaline Phosphatase 105 U/L (46-116); Anion Gap 9.2; Aspartate Amino Transferase 30 U/L (15-37); Blood Urea Nitrogen 29.0 mg/dL (7.0-18.0); Calcium 8.6 mg/dL (8.5-10.1); Carbon Dioxide 28.3 mmol/L (21.0-32.0); Chloride 108 mmol/L (98-107); Cholesterol 78 mg/dL (<=200); Estimated GFR (African America >60 (>=60 mL/min/1.73m^2); Estimated GFR (Non-African Ame >60 (>=60 mL/min/1.73m^2); Globulin 3.1 g/dL; Glucose 175 mg/dL (74-106); HDL Cholesterol 44 mg/dL (40-60); Magnesium 2.2 mg/dL (1.8-2.4); Potassium 4.5 mmol/L (3.5-5.1); Sodium 141 mmol/L (136-145); Total Protein 6.2 g/dL (6.4-8.2); Triglycerides 45 mg/dL (<=150); VLDL CHOLESTEROL 9.0 mg/dL
[2024-11-28] MEDS: PANTOPRAZOLE SODIUM 40 MG TABLET.DR PO (06:03)
[2024-11-28 06:06] LABS: Folate 23.80 ng/mL (8.60-58.90)
--- OUTSIDE RECORDS SUMMARY | 2024-11-28 06:35 | XMS_ITS | CCD ---
Author Organization [facility] Care Team Providers Care High Worker Name Role Phone MARISOL BOYCE Primary Care Physician Unavaila ble MEDARDOHHOLTu, POINT OF CARE SPECIALIST MARISOL Admitting Unavailable AICHHOLZ, POINT OF CARE SPECIALIST MARISOL Attending Unavailable AICHHOLZ, POINT OF CARE SPECIALIST MARISOL Primary Care Unavailable AICHHOLZ, POINT OF CARE SPECIALIST MARISOL Consulting Unavailable AICHHOLZ, POINT OF CARE SPECIALIST MARISOL Admitting Unavailable AICHHOLZ, POINT OF CARE SPECIALIST MARISOL Attending Unavailable AICHHOLZ, POINT OF CARE SPECIALIST MARISOL Primary Care Unavailable AICHHOLZ, POINT OF CARE SPECIALIST MARISOL Consulting Unavailable DR SANJAY REECE Consulting Unavailable ROSEANNA, MARCO Admitting Unavailable ROSEANNA, MARCO Attending Unavailable AICHHOLZ, POINT OF CARE SPECIALIST MARISOL Primary Care Unavailable ROSEANNA, MARCO Consulting Unavailable AICHHOLZ, POINT OF CARE SPECIALIST MARISOL Admitting Unavailable AICHHOLZ, POINT OF CARE SPECIALIST MARISOL Attending Unavailable AICHHOLZ, POINT OF CARE SPECIALIST MARISOL Primary Care Unavailable AICHHOLZ, POINT OF CARE SPECIALIST MARISOL Consulting Unavailable FLOR, WDAIN Admitting Unavailable FLOR, DWAIN Attending Unavailable AICHHOLZ, POINT OF CARE SPECIALIST MARISOL Primary Care Unavailable FLOR, DWAIN Consulting Unavailable Aichholz SENSITOMETRIST, Marisol Unavailable Prabhjot Villatoro MD Primary Care Provider [phone] MARISOL BOYCE Primary Care Physician [phone] Aicmirian SENSITOMETRIST, Marisol Unavailable Prabhjot Villatoro MD Primary Care Provider Aichholtu SENSITOMETRIST, Marisol Unavailable Carli LOSS PREVENTION AND SAFETY MANAGER-Marisol GASCA Primary Care Provider YAMILEX ARMSTRONG Referring [...] Attending Unavailable Sabino Mauricio Admitting Unavailable Aichholz SENSITOMETRIST, Marisol Unavailable eDja Perez Attending Unavailable MARISOL BOYCE Admitting Unavailable [...] Drug Class(es) Dates Sig (Normalized) Sig (Original) [id number] actuat albuterol 0.09 mg/actuat metered dose inhaler (20 sources) beta2-Adrenergic Agonist Start: 07-01-2022 take 2 puff(s) by mouth every six hours as needed for wheezing albuterol (PROVENTIL HFA;VENTOLIN HFA) 90 mcg/actuation inhaler Indications: COPD, moderate ([facility]) INHALE 2 PUFFS BY MOUTH EVERY 6 [...] Status: Ordered Repeat number: 1 Continuous Glucose Content Checker (Dexcom G7 Content Checker) device (8 sources) Start: 10-20-2023 End: 01-28-2024 Continuous Glucose Content Checker (Dexcom G7 Content Checker) device Indications: Type 2 diabetes mellitus without complication, with long-term current use of insulin ([facility]) 1 each Daily 1 each 1 10/20/2023 01/28/2024 Active Continuous Glucose Sensor (Dexcom G7 Sensor) misc (8 sources) Start: 10-20-2023 End: 01-18-2024 Continuous Glucose Sensor (Dexcom G7 Sensor) misc Indications: Type 2 diabetes mellitus without complication, with long-term current use of insulin ([facility]) 1 each Daily 12 each 4 10/20/2023 [...] SUGAR TID DIRECTED 04/20/2019 Active peg 3350-sod sulf,luxn-vdq-yri 178.7-7.3-0.5 gram recon soln (1 source) Start: 03-05-2024 End: 03-06-2024 peg 3350-sod sulf,tlcr-edd-sce 178.7-7.3-0.5 gram recon soln Indications: Encounter for [...] THE SKIN EVERY DAY 04/04/2024 Active sennosides, chcf 8.6 mg oral tablet (15 sources) Start: [...] Daily, # 90 cap(s), Refills(s) 3, Pharmacy: [id number], 77.8, kg, 06/18/22 9:54:00 EDT, Weight Dosing Start Date: 06/18/22 Status: Ordered Quantity: 90.0 Unit: cap(s) Repeat number: 4 take 1 capsule by mo [facility] every twenty-four hours at bedtime tamsulosin [...] hrs., # 10 tab(s), Refills(s) 5, Pharmacy: [facility] #[id number], 182, cm, 07/11/23 14:01:00 EDT, Height/Length Dosing, [...] Long-term current use of drug therapy; Translations: [lobsterman (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 of antithrombotics/anti platelets] Onset: 06-18-2022 [...] Resolved: 08-15-2024 06-07-2023 Other aftercare (1 source) assisted (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 of insulin; Translations: [lobsterman (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 of insulin] Onset: 11-29-2023 Episodic [...] Range Facility Orders Onlyon 11-21-2024 Orders Only [id number] Kimmy Mcarthur 1945 M Date Provider Department Center 11/21/2024 [id number], HISTORICAL ALEX Roland Family History Problem Relation Age of Onset Cancer Father Diabetes Father Family Status - Relation Status Age at Father [facility] Office Visiton 10-09-2024 Follow-up visit [id number] Kimmy Mcarthur 1945 M Date Provider Department Center 10/09/2024 [id number], EHAB CARD [facility] Family History Problem Relation Age of Onset Cancer Father Diabetes Father Family Status - Relation Status Age at Father Level of Service:47424 AR OFFICE/OUTPATIENT ESTABLISHED MOD MDM 30 MIN [facility] 36on 08-16-2024 36 Pt informed they smiley l call sleep study place as they never followed up w sleep study, they will stop amlodipine [facility] Ambulatory Visit Summaryon 0 07-18-2024 Ambulatory [...] out (more content not included)... Normal [facility] Urology Office/Clinic Noteon 07-18-2024 Urology [...] 200 mg (more content not included)... Normal [facility] Comment on above: Result Comment: Elec tronically Signed By: Chris QUINTANA, Deja Henry\.br\Date and Time Signed: 07/18/24 09:19 EDT\.br\Electronically Co-Signed By: Amalia Herring.br\Date and Time Co-Signed: 07/18/24 09:13 EDT CBC w/ Auto Diffon 5 Basophils/100 WBC (Bld) 0.8 % Normal 0.0-2.0 [facility] Comment on above: Performed By: #### 2 [id number] #### [facility] [address] [place] [address] Erythrocyte distribution width (RBC) [Ratio] 15.6 % High 10.9-14.2 [facility] Comment on above: Performed By: #### 2 [id number] #### [facility] [address] [place] [address] Hematocrit (Bld) [Volume fraction] 32.5 % Low 37.7-49.0 [facility] Comment on above: Performed By: #### 2 [id number] #### [facility] [address] [place] [address] Lymphocytes/100 WBC (Bld) 22.2 % Normal 14.0-50.0 [facility] Comment on above: Performed By: #### 2 [id number] #### [facility] [address] [place] [address] Neutrophils/100 WBC (Bld) 65.2 % Normal 36.0-75.0 [facility] Comment on above: Performed By: #### 2 [id number] #### [facility] [address] [place] [address] Platelet mean volume (Bld) [Entitic vol] 8.3 fL Normal 6.4-10.8 [facility] Comment on above: Performed By: #### 2 [id number] #### [facility] [address] [place] [address] Basophils/Leukocytes Auto (Bld) [Pure # fraction] 0.0 E9/L Normal 0.0-0.2 [facility] Comment on above: Performed By: #### 2 [id number] #### [facility] [address] [place] [address] Eosinophils (Bld) [#/Vol] 0.2 E9/L Normal 0.0-0.5 [facility] Comment on above: Performed By: #### 2 [id number] #### [facility] [address] [place] [address] Eosinophils/100 WBC (Bld) 3.5 % Normal 0.0-8.0 [facility] Comment on above: Performed By: #### 2 [id number] #### [facility] [address] [place] [address] Hemoglobin (Bld) [Mass/Vol] 11.1 g/dL Low 13.5-17.5 [facility] Comment on above: Performed By: #### 2 [id number] #### [facility] [address] [place] [address] Lymphocytes (Bld) [#/Vol] 1.3 E9/L Normal 1.0-4.0 [facility] Comment on above: Performed By: #### 2 [id number] #### [facility] [address] [place] [address] MCH (RBC) [Entitic mass] 30.5 pg Normal 27.0-34.0 [facility] Comment on above: Performed By: #### 2 [id number] #### [facility] [address] [place] [address] MCHC (RBC) [Mass/Vol] 34.1 g/dL Normal 31.4-36.0 [facility] Comment on above: Performed By: #### 2 000656 #### [facility] [address] [place] [address] MCV (RBC) [Entitic vol] 89.5 fL Normal 80.0-100.0 [facility] Comment on above: Performed By: #### 2 [id number] #### [facility] [address] [place] [address] Monocytes (Bld) [#/Vol] 0.5 E9/L Normal 0.2-1.0 [facility] Comment on above: Performed By: #### 2 853161 #### [facility] [address] [place] [address] Neutrophils (Bld) [#/Vol] 3.8 E9/L Normal 2.0-7.5 [facility] Comment on above: Performed By: #### 2 [id number] #### [facility] [address] [place] [address] Platelet 203.0 E9/L Normal 150.0-500.0 [facility] Comment on above: Performed By: #### 2 668486 #### [facility] [address] [place] [address] RBC (Bld) [#/Vol] 3.6 E12/L Low 4.3-5.9 [facility] Comment on above: Performed By: #### 2 [id number] #### [facility] [address] [place] [address] WBC corrected for nucl RBC Auto (Bld) [#/Vol] 5.8 E9/L Normal 4.0-11.0 [facility] Comment on above: Performed By: #### 2 604310 #### [facility] [address] [place] [address] CHEMISTRYOrdered By: SYSTEM SYSTEM on 07-11-2024 Albumin [...] methods and specificity. Values obtained with different material assistant's assays cannot be used interchangeably. The methodology used to obtain this result was chemiluminescence using [employer] [place]'s Access Hybritech PSA reagent and Access Hybritech [...] (Bld) [Mass fraction] 6.3 % High <=5.9% [facility] ChemAutoSS CMPon 07-11-2024 Albumin [Mass/Vol] 4.1 g/dL Normal 3.3-5.0 [facility] Comment on above: Performed By: #### 2 [id number] #### [facility] [address] [place] [address] Albumin/Globulin (S) [Mass conc ratio] 1.8 Normal 1.1-2.2 [facility] Comment on above: Performed By: #### 2 [id number] #### [facility] [address] [place] [address] ALP [Catalytic activity/Vol] 73 Int._Unit/L Normal 21-98 [facility] Comment on above: Performed By: #### 2 [id number] #### [facility] [address] [place] [address] ALT No additional P-5'-P [Catalytic activity/Vol] 16 Int._Unit/L Normal 6-46 [facility] Comment on above: Performed By: #### 2 [id number] #### [facility] [address] [place] [address] Anion gap [Moles/Vol] 12 mmol/L Normal 6-16 [facility] Comment on above: Performed By: #### 2 [id number] #### [facility] [address] [place] [address] AST [Catalytic activity/Vol] 15 Int._Unit/L Normal 5-43 [facility] Comment on above: Performed By: #### 2 [id number] #### [facility] [address] [place] [address] Bilirubin [Mass/Vol] 0.9 mg/dL Normal 0.0-1.1 [facility] Comment on above: Performed By: #### 2 962140 #### [facility] [address] [place] [address] Calcium [Mass/Vol] 9.2 mg/dL Normal 8.9-11.1 [facility] Comment on above: Performed By: #### 2 726535 #### [facility] [address] [place] [address] Chloride [Moles/Vol] 106 mmol/L Normal 101-111 [facility] Comment on above: Performed By: #### 2 [id number] #### [facility] [address] [place] [address] CO2 [Moles/Vol] 24 mmol/L Normal 21-31 [facility] Comment on above: Performed By: #### 2 161115 #### [facility] [address] [place] [address] Creatinine [Mass/Vol] 0.9 mg/dL Normal 0.5-1.3 [facility] Comment on above: Performed By: #### 2 [id number] #### [facility] [address] [place] [address] Globulin (S) [Mass/Vol] 2.3 g/dL Normal 1.4-4.0 [facility] Comment on above: Performed By: #### 2 834636 #### [facility] [address] [place] [address] Glucose [Mass/Vol] 119 mg/dL Normal 55-199 [facility] Comment on above: Performed By: #### 2 [id number] #### [facility] [address] [place] [address] Potassium [Moles/Vol] 4.0 mmol/L Normal 3.5-5.3 [facility] Comment on above: Performed By: #### 2 [id number] #### [facility] [address] [place] [address] Protein [Mass/Vol] 6.4 g/dL Normal 6.0-7.8 [facility] Comment on above: Performed By: #### 2 [id number] #### [facility] [address] [place] [address] Sodium [Moles/Vol] 138 mmol/L Normal 135-145 [facility] Comment on above: Performed By: #### 2 396412 #### [facility] [address] [place] [address] Urea nitrogen [Mass/Vol] 28 mg/dL High 5-21 [facility] Comment on above: Performed By: #### 2 [id number] #### [facility] [address] [place] [address] Urea nitrogen/Creatinine [Mass ratio] 31 No Units High 10-20 [facility] Comment on above: Performed By: #### 2 [id number] #### [facility] [address] [place] [address] [facility] CBC W/ AUTO DIFFon 06-26 EOSINOPHILS/100 LEUKOCYTES:NFR:PT:BLD: QN:AUTOMATED COUNT 3.5 % 0.0 - 8.0 % [facility] EOSINOPHILS:NCNC:PT:BL D:QN: 0.2 [facility] BASOPHILS/LEUKOCYTES:N FR.DF:PT:BLD:QN:AUTOMA BETHEL COUNT 0 [facility] ERYTHROCYTE MEAN CORPUSCULAR HEMOGLOBIN CONCENTRATION:MCNC:PT: RBC:QN 34.1 [facility] ERYTHROCYTE MEAN CORPUSCULAR HEMOGLOBIN:ENTMASS:PT: RBC:QN 30.5 pg 27.0 - 34.0 pg [facility] ERYTHROCYTE MEAN CORPUSCULAR VOLUME:ENTVOL:PT:RBC:Q N:AUTOMATED COUNT 89.5 fL 80.0 - 100.0 fL [facility] ERYTHROCYTES:NCNC:PT:B LD:QN:AUTOMATED COUNT 3.6 [facility] HEMOGLOBIN:MCNC:PT:BLD :QN: 11.1 [facility] LEUKOCYTES 5.8 [facility] MONOCYTES:NCNC:PT:BLD: QN:AUTOMATED COUNT 0.5 [facility] NEUTROPHILS:NCNC:PT:BL D:QN:AUTOMATED COUNT 3.8 [facility] Interpretation and review of laboratory results Abnormal [facility] LYMPHOCYTES:NCNC:PT:BL D:QN: 1.3 [facility] Platelets (Bld) [#/Vol] 203 10*3/uL [facility] Original Ordering Provider: ELO WILLS [facility] HEMATOLOGYOrdered By: SYSTEM SYSTEM on 07-11-2024 [...] Normal 4.0 - 11.0 E9/L Remisol Heme [id number] 07-11-2024 HbA1c (Bld) [Mass fraction] 6.3 % High <=5.9 [facility] Comment on above: Performed By: #### 7 [id number] #### [facility] [address] [place] [address] Ironon 07-11-2024 Iron [Mass/Vol] 38 microgram/dL Normal 35-153 [facility] Comment on above: Performed By: #### 2 [id number] #### [facility] [address] [place] [address] Laboratory - Chemistry and C hemistry - [...] 07-11-2024 Cholesterol [Mass/Vol] 96 mg/dL Low 120-200 [facility] Comment on above: Performed By: #### 2 190767 #### [facility] [address] [place] [address] Cholesterol in HDL [Mass/Vol] 38 mg/dL Invalid Interpretation Code [facility] Comment on above: Result Comment: '>= 60 LOW RISK' '<= 40 HIGH RISK' Performed By: #### 2 697195 #### [facility] [address] [place] [address] Cholesterol in LDL [Mass/Vol] 44 mg/dL Normal <=129 [facility] Comment on above: Performed By: #### 2 355215 #### [facility] [address] [place] [address] Cholesterol in VLDL [Mass/Vol] 14 mg/dL Normal 7-40 [facility] Comment on above: Performed By: #### 2 285457 #### [facility] [address] [place] [address] Triglyceride [Mass/Vol] 68 mg/dL Normal <=149 [facility] Comment on above: Performed By: #### 2 [id number] #### [facility] [address] [place] [address] No Panel InformationOrdered By: Talita Candelario on 07-11-2024 UA Spec Desc Clean Catch (07/11/24 1:55 PM) Normal [facility] UA Auto SS U Microalbon 07-11-2024 Albumin DL <= 20 mg/L (U) [Mass/Vol] 0.8 mg/dL Normal 0.0-1.9 [facility] Comment on above: Performed By: #### 1 [id number] #### [facility] [address] [place] [address] UA with Cult Rflxon 07-12-19 Bilirubin Ql (U) Negative Normal Negative [facility] Comment on above: Performed By: #### 4 [id number] #### [facility] [address] [place] [address] Order Comment: Farhan daly, screen shot this page and put a note on it to be credited.07/11/2024 18:05:55 EDT [id number] Performed By: #### 4 [id number] #### [facility] [address] [place] [address] Clarity (U) Clear Normal Clear [facility] Comment on above: Performed By: #### 4 [id number] #### [facility] [address] [place] [address] Order Comment: Farhan daly, screen shot this page and put a note on it to be credited.07/11/2024 18:05:55 EDT [id number] Performed By: #### 4 [id number] #### [facility] [address] [place] [address] Color (U) Yellow Normal Yellow [facility] Comment on above: Result Comment: Micr oscopic readings are only performed on those samples that meet specific criteria set forth by [facility]. Performed By: #### 4 [id number] #### [facility] [address] [place] [address] Order Comment: Farhan daly, screen shot this page and put a note on it to be credited.07/11/2024 18:05:55 EDT [id number] Performed By: #### 4 [id number] #### [facility] [address] [place] [address] Glucose Ql (U) 4+ mg/dL Abnormal Negative [facility] Comment on above: Performed By: #### 4 [id number] #### [facility] [address] [place] [address] Order Comment: Farhan daly, screen shot this page and put a note on it to be credited.07/11/2024 18:05:55 EDT [id number] Performed By: #### 4 [id number] #### [facility] [address] [place] [address] Hemoglobin Auto test strip (U) [Mass/Vol] Negative Normal Negative [facility] Comment on above: Performed By: #### 4 [id number] #### [facility] [address] [place] [address] Order Comment: Dupli shweta order, screen shot this page and put a note on it to be credited.07/11/2024 18:05:55 EDT [id number] Performed By: #### 4 [id number] #### [facility] [address] [place] [address] Ketones Auto test strip Ql (U) Negative Normal Negative [facility] Comment on above: Performed By: #### 4 [id number] #### [facility] [address] [place] [address] Order Comment: Dupli shweta order, screen shot this page and put a note on it to be credited.07/11/2024 18:05:55 EDT [id number] Performed By: #### 4 [id number] #### [facility] [address] [place] [address] Leukocyte esterase Auto test strip Ql (U) Negative Normal Negative [facility] Comment on above: Performed By: #### 4 [id number] #### [facility] [address] [place] [address] Order Comment: Dupli shweta order, screen shot this page and put a note on it to be credited.07/11/2024 18:05:55 EDT [id number] Performed By: #### 4 [id number] #### [facility] [address] [place] [address] Nitrite Auto test strip Ql (U) Negative Normal Negative [facility] Comment on above: Performed By: #### 4 [id number] #### [facility] [address] [place] [address] Order Comment: Dupli shweta order, screen shot this page and put a note on it to be credited.07/11/2024 18:05:55 EDT [id number] Performed By: #### 4 [id number] #### [facility] [address] [place] [address] pH (U) 5.5 [pH] Invalid Interpretation Code 5.0-9.0 [facility] Comment on above: Performed By: #### 4 [id number] #### [facility] [address] [place] [address] Order Comment: Farhan daly, screen shot this page and put a note on it to be credited.07/11/2024 18:05:55 EDT [id number] Performed By: #### 4 [id number] #### [facility] [address] [place] [address] Protein Ql (U) Negative Normal Negative [facility] Comment on above: Performed By: #### 4 [id number] #### [facility] [address] [place] [address] Order Comment: Farhan daly, screen shot this page and put a note on it to be credited.07/11/2024 18:05:55 EDT [id number] Performed By: #### 4 [id number] #### [facility] [address] [place] [address] Specific gravity (U) [Rel density] 1.023 Invalid Interpretation Code 1.005-1.030 [facility] Comment on above: Performed By: #### 4 [id number] #### [facility] [address] [place] [address] Order Comment: Farhan daly, screen shot this page and put a note on it to be credited.07/11/2024 18:05:55 EDT [id number] Performed By: #### 4 [id number] #### [facility] [address] [place] [address] Urobilinogen (U) [Mass/Vol] Negative Normal Negative [facility] Comment on above: Performed By: #### 4 [id number] #### [facility] [address] [place] [address] Order Comment: Farhan daly, screen shot this page and put a note on it to be credited.07/11/2024 18:05:55 EDT [id number] Performed By: #### 4 [id number] #### [facility] [address] [place] [address] Type of Urine collection method Clean Catch Normal [facility] Comment on above: Performed By: #### 4 [id number] #### [facility] [address] [place] [address] Order Comment: Farhan daly, screen shot this page and put a note on it to be credited.07/11/2024 18:05:55 EDT [id number] Performed By: #### 4 [id number] #### [facility] [address] [place], [place] [id number] URINALYSISOrdered By: SYSTEM SYSTEM on 07-11-2024 Color (U) Yellow 1 (07/11/24 1:55 PM) Normal Yellow [facility] UA Auto SS Comment on above: Interpretive Data: M icroscopic readings are only performed on those samples that meet specific criteria set forth by [facility]. Color (U) Yellow 2 (07/11/24 1:55 PM) Normal Yellow [facility] UA Auto SS Comment on above: Interpretive Data: M icroscopic readings are only performed on those samples that meet specific criteria set forth by [facility]. eGFRon 07-11-2024 eGFR 87 mL/min/1.73 m2 Normal >=59 [facility] Comment on above: Performed By: #### 1 [id number] #### [facility] [address] [place] [address] Aaron 04-11-2024 L - -------- Specimen: [id number] Received: 04/12/24 Status: SULY Mendez Num: [id number] Spec Type: Surgical Subm Dr: Sabino Mauricio DO Tissues: A Esophagus Biopsy (DISTAL ESOPHAGUS BX X2) B Colon Biopsy (RECTAL SIGMOID JUNCTION POLY) Procedures: HE/4, Gross/Micro L4/2 -------- Age/ Patient Sex Location Account Attending Physician -------- Kimmy Mcarthur 78/ LABEL [id number] Sabino Mauricio DO -------- SPEC NUM: [id number] RECD: 04/12/24 STATUS: SULY MENDEZ NUM: [id number] MALKA: 04/11/24-[address]: Sabino Mauricio DO ENTERED: 04/12/24 [facility] DR: Raza Ward SPEC TYPE: Surgical DEPT: BRAIN DICKERSON ENTERED BY: [id number] RECV BY: [id number] ORDERED: HE/4, Gross/Micro L4/2 ORDERED: HE/4, Gross/Micro [...] [id number] Received: 04/12/24 Status: SULY Mendez Num: [id number] Spec Type: Surgical Subm Dr: Sabino Mauricio DO Tissues: A Esophagus Biopsy (DISTAL ESOPHAGUS BX X2) B Colon Biopsy (RECTAL SIGMOID JUNCTION POLY) Procedures: HE/4, Gross/Micro L4/2 -------- Patient: Kimmy Mcarthur [id number] (Continued) -------- Specimen: [id number] Received: 04/12/24 (Continued) Signed (signature on file) Jasiel Sanon MD 04/13/24 1225 -------- Specimen: BS Received: 04/12/24 Status: SULY Mendez Num: [id number] Spec Type: Surgical Subm Dr: Sabino Mauricio DO Tissues: A Esophagus Biopsy (DISTAL ESOPHAGUS BX X2) B Colon Biopsy (RECTAL SIGMOID JUNCTION POLY) Procedures: HE/Polly, Gross/Micro L4/2 -------- Patient: LyubovKimmy A [id number] (Continued) -------- Specimen: BS Received: 04/12/24 (Continued) Microscopic Description A B:Microscopic examination is performed. CPT Codes 69411 x2 -------- -------- Specimen: [id number] Received: 04/12/246004 Status: SULY Mendez Num: [id number] Spec Type: Surgical Subm Dr: Sabino Mauricio DO Tissues: A Esophagus Biopsy (DISTAL ESOPHAGUS BX X2) B Colon Biopsy (RECTAL SIGMOID JUNCTION POLY) Procedures: BENIGNO/Polly Gross/Micro L4/2 -------- Patient: Kimmy Mcarthur [id number] (Continued) -------- Signed (signature on file) Jasiel Sanon MD 04/13/24 1225 Normal [facility] Office Visiton 03-14-2024 Follow-up visit [id number] Kimmy Mcarthur 1945 M Date Provider Department Center 03/14/2024 Kacie-NATASHA CAMPO EBONY Roland Family History Problem Relation Age of Onset Cancer Father Diabetes Father Family Status - Relation Status Age at Father Level of Service:61150 AR OFFICE/OUTPATIENT ESTABLISHED MOD MDM 30 MIN Normal [facility] MLR HEMOGLOBIN A1Con 024 Glucose [Mass/Vol] 180 mg/dL [facility] HbA1c (Bld) [Mass fraction] 7.9 % High 4.5 - 6.2 % [facility] Comment on above: ADA RECOMMENDED LIMI T 4.0 - 6.0 ADA THERAPEUTIC TARGET < 7.0 ACTION SUGGESTED > 7.0 Interpretation and review of laboratory results Abnormal [facility] 36on 02-13-2024 36 His LDL from 12/07/2023 is 46. Would you still like for me to try to get [employer] approved for him? Normal [facility] XR SPINE THORACIC 3 VWSon XR [...] Jami Ko MD on 01/11/2024 4:27 PM [facility] 36on 01-04-2024 36 PCP Marisol Boyce called [...] taking, can you please call Marisol at [phone] and let her know. THANKS!!! Normal [facility] 36on 12-16-2023 36 Regarding stress marysol [...] time. Thank you Patient's made aware. Normal [facility] LIVER PANELon 12-07-2023 Albumin [Mass/Vol] 4.0 g/dL Normal 3.2-5.[address] [facility] Comment on above: Performed By: #### M ALBU #### [facility] ([id number]) [address], [address] [place] [address] ALP [Catalytic activity/Vol] 63 U/L Normal 39-130 [facility] Comment on above: Performed By: #### M ALBU #### [facility] ([id number]) [address], [address] [place] [address] ALT [Catalytic activity/Vol] 39 U/L Normal 0-40 [facility] Comment on above: Performed By: #### M ALBU #### [facility] ([id number]) [address], [address] [place] [address] AST [Catalytic activity/Vol] 18 U/L Normal 0-41 [facility] Comment on above: Performed By: #### M ALBU #### [facility] ([id number]) [address], [address] [place] [address] Bilirubin [Mass/Vol] 1.1 mg/dL Normal 0.3-1.2 [facility] Comment on above: Performed By: #### M ALBU #### [facility] ([id number]) [address], [address] [place] [address] Bilirubin.direct [Mass/Vol] 0.2 mg/dL Normal 0.0-0.4 [facility] Comment on above: Performed By: ###Erik HENRIQUEZ #### [facility] ([id number]) [address], [address] [place] [address] Protein [Mass/Vol] 6.4 g/dL Normal 6.0-8.[address] [facility] Comment on above: Performed By: ###Erik HENRIQUEZ #### [facility] ([id number]) [address] [place] [address] Lipid 1996 panelon 4 Cholesterol [Mass/Vol] 108 mg/dL Low 150-200 [facility] Comment on above: Performed By: ###Erik HENRIQUEZ #### [facility] ([id number]) [address], [address] [place] [address] Cholesterol in HDL [Mass/Vol] 43 mg/dL Normal >39 [facility] Comment on above: Result Comment: HDL <40 mg/dL - High Risk HDL > or = 40mg/dL- Desirable HDL >60 mg/dL - Negative Risk Performed By: #### Brionna HENRIQUEZ #### [facility] ([id number]) [address], [address] [place] [address] Cholesterol in LDL [Mass/Vol] 46 mg/dL Normal <130 [facility] Comment on above: Result Comment: LDL <100 mg/dL - Desirable LDL >160 mg/dL - High Risk Performed By: #### Brionna HENRIQUEZ #### [facility] ([id number]) [address], [address] [place] [address] Cholesterol in VLDL [Mass/Vol] 19 mg/dL Normal 0-30 [facility] Comment on above: Performed By: #### M ALBU #### [facility] ([id number]) [address], [address] [place] [address] CHOLESTEROL:HDL 2.5 Normal 1.0-5.0 [facility] Comment on above: Performed By: #### M ALBU #### [facility] ([id number]) [address], [address] [place] [address] Triglyceride [Mass/Vol] 95 mg/dL Normal 27-150 [facility] Comment on above: Performed By: #### M ALBU #### [facility] ([id number]) [address], [address] [place] [address] BASIC METABOLIC PANLon 11-28 Anion gap [Moles/Vol] 8 mmol/L Normal 5-15 [facility] Comment on above: Performed By: #### M ALBU #### [facility] ([id number]) [address], [address] [place] [address] Calcium [Mass/Vol] 9.2 mg/dL Normal 8.5-10.[address] [facility] Comment on above: Performed By: #### M ALBU #### [facility] ([id number]) [address], [address] [place] [address] Chloride [Moles/Vol] 104 mmol/L Normal 98-109 [facility] Comment on above: Performed By: #### M ALBU #### [facility] ([id number]) [address], [address] [place] [address] CO2 [Moles/Vol] 27 mmol/L Normal 22-32 [facility] Comment on above: Performed By: #### M ALBU #### [facility] ([id number]) [address], [address] [place] [address] Creatinine [Mass/Vol] 1.01 mg/dL Normal 0.60-1.30 [facility] Comment on above: Result Comment: METH OD TRACEABLE TO IDMS STANDARD Performed By: #### M ALBU #### [facility] ([id number]) [address], [address] [place] [address] GFR/1.73 sq M.predicted among non-blacks MDRD (S/P/Bld) [Vol rate/Area] 77 mL/min/{1.73_m2} Normal >59 [facility] Comment on above: Result Comment: Reported eGFR is based on the CKD-EPI 2020 equation that does not use a race coefficient. Performed By: #### M ALBU #### [facility] ([id number]) [address], [address] [place] [address] Glucose [Mass/Vol] 187 mg/dL High 65-[address] [facility] Comment on above: Performed By: #### M ALBU #### [facility] ([id number]) [address], [address] [place] [address] Potassium [Moles/Vol] 4.2 mmol/L Normal 3.5-5.0 [facility] Comment on above: Performed By: #### M ALBU #### [facility] ([id number]) [address], [address] [place] [address] Sodium [Moles/Vol] 139 mmol/L Normal 134-[address] [facility] Comment on above: Performed By: #### M ALBU #### [facility] ([id number]) [address], [address] [place] [address] Urea nitrogen [Mass/Vol] 22 mg/dL Normal 5-27 [facility] Comment on above: Performed By: #### M ALBU #### [facility] ([id number]) [address], [address] [place] [address] Basic metabolic 1998 panelon 11-29-2023 Anion gap [Moles/Vol] 8 mmol/L 5 - 15 mmol/L [facility] Calcium [Mass/Vol] 9.2 mg/dL 8.5 - 10. 5 mg/dL [facility] Chloride [Moles/Vol] 104 mmol/L 98 - 10 9 mmol/L [facility] CO2 [Moles/Vol] 27 mmol/L 22 - 32 mmol/L [facility] Creatine [Mass/Vol] 1.01 mg/dL 0.60 - 1 .30 mg/dL [facility] Comment on above: METHOD TRACEABLE TO IDVT STANDARD GFR/1.73 sq M.predicted among non-blacks MDRD (S/P/Bld) [Vol rate/Area] 77 mL/min/{1.73_m2} - PINF [facility] Comment on above: Reported eGFR is based on the CKD-EPI 2020 equation that does not use a race coefficient. PERFORMED AT [facility] [address],[place] [address] Glucose [Mass/Vol] 187 mg/dL High 65 - 99 mg/dL [facility] Interpretation and review of laboratory results Abnormal [facility] Potassium [Moles/Vol] 4.2 mmol/L 3.5 - 5.0 mmol/L [facility] Sodium [Moles/Vol] 139 mmol/L 134 - 146 mmol/L [facility] Urea nitrogen [Mass/Vol] 22 mg/dL 5 - 27 mg/dL [facility] HGB A1C (GLYCO-HGB)on 2023 Glucose [Mass/Vol] 192 mg/dL Normal [facility] Comment on above: Performed By: #### M MARTINEZ #### [facility] ([id number]) [address], [address] [place] [address] HbA1c (Bld) [Mass fraction] 8.3 % High 4.4-5.6 [facility] Comment on above: Result Comment: NOTE ADA Guidelines Result HgbA1c Normal : less than 5.7 % Prediabetes : 5.7 % to 6.4 % Diabetes : > 6.4 % Use with caution in patients with abnormal hemoglobin variants as the half-life of red blood cells and in vivo glycation rates are affected. Performed By: #### M MARTINEZ #### [facility] ([id number]) [address] [place] [address] Office Visiton 11-29-2023 Follow-up visit [id number] Rush Mcarthurothy Laura 1945 Date Provider Department Center 11/29/[address] [facility]HA CAMPO CARD [facility] Family History Problem Relation Age of Onset Cancer Father Diabetes Father Family Status - Relation Status Age at Father Level of Service:43182 AR OFFICE/OUTPATIENT ESTABLISHED MOD MDM 30 MIN Normal [facility] Prostate specific Ag [Mass/V ol]on 11-29-2023 PROSTATIC SPEC ANT 3.12 ng/mL Normal 0.00-4.[address] [facility] Comment on above: Result Comment: The method used for this test is [employer] DXI chemiluminescent immunoassay. Values obtained by different assay methods cannot be used interchangeably. Performed By: #### M MARTINEZ #### [facility] ([id number]) [address] [place] [address], [address] [place] [address] XR CHEST 2 VWSon 10-11-2023 XR CHEST [...] Valentin MD on 10/11/2023 12:16 PM Normal [facility] FREE AND TOTAL PSAon 024 % FREE PSA 34.9 Normal [facility] Comment on above: Result Comment: Percent [...] BPH. Performed By: #### F TPSA #### [facility] ([id number]) [address] [place] [address] FREE PSA 1.13 ng/mL Normal [facility] Comment on above: Performed By: #### F TPSA #### [facility] ([id number]) [address] [place] [address] PROSTATIC SPEC ANT 3.24 ng/mL Normal 0.00-4.[address] [facility] Comment on above: Result Comment: The method used for this test is [employer] [place] DXI chemiluminescent immunoassay. Values obtained by different assay methods cannot be used interchangeably. Performed By: #### F TPSA #### [facility] ([id number]) [address] [place] [address] CBC AND AUTO DIFFon 05-04-19 24 ABSOLUTE BASOPHIL 0.0 X10E9/L Normal 0.0-0.[address] [facility] Comment on above: Performed By: #### C MP, 2498-4, 03548-2, 2276-4, CBCA #### [facility] ([id number]) [address] [place] [address] ABSOLUTE NEUTROPHIL 3.8 X10E9/L Normal 1.5-6.6 [facility] Comment on above: Performed By: #### C MP, 2498-4, 75876-8, 2276-4, CBCA #### [facility] ([id number]) [address], [facility] [address] [place] [address] Basophils/100 WBC (Bld) 0.7 % Normal [facility] Comment on above: Performed By: #### C MP, 2498-4, 09016-4, 2276-4, CBCA #### [facility] ([id number]) [address], [facility] [address] [place] [address] Eosinophils (Bld) [#/Vol] 0.3 10*3/uL Normal 0.0-0.4 [facility] Comment on above: Performed By: #### C ROHINI, 2498-4, 55589-0, 2276-4, CBCA #### [facility] ([id number]) [address], [facility] [address] [place] [address] Eosinophils/100 WBC (Bld) 4.1 % Normal [facility] Comment on above: Performed By: #### C ROHINI, 2498-4, 63832-0, 2275-, CBCA #### [facility] ([id number]) [address] [address] [place] [address] Erythrocyte distribution width (RBC) [Ratio] 13.4 % Normal 11.5-15.0 [facility] Comment on above: Performed By: #### C ROHINI, 2498-4, 13244-9, 6-4, CBCA #### [facility] ([id number]) [address] [address] [place] [address] Hematocrit (Bld) [Volume fraction] 39.3 % Normal 39-49 [facility] Comment on above: Performed By: #### C MP, 2498-4, 92778-1, 2276-4, CBCA #### [facility] ([id number]) [address], [facility] [address] [place] [address] Hemoglobin (Bld) [Mass/Vol] 13.5 g/dL Normal 13.0-17.0 [facility] Comment on above: Performed By: #### C ROHINI, 2498-4, 40312-6, 2276-4, CBCA #### [facility] ([id number]) [address], [facility] [address] [place] [address] Lymphocytes (Bld) [#/Vol] 2.4 10*3/uL Normal 1.0-3.5 [facility] Comment on above: Performed By: #### C ROHINI, 2498-4, 54303-7, 2276-4, CBCA #### [facility] ([id number]) [address], [facility] [address] [place] [address] Lymphocytes/100 WBC (Bld) 34.3 % Normal [facility] Comment on above: Performed By: #### C ROHINI, 2498-4, 62838-3, 2275-4, CBCA #### [facility] ([id number]) [address], [facility] [address] [place] [address] MCH (RBC) [Entitic mass] 30.6 pg Normal 27-34 [facility] Comment on above: Performed By: #### C ROHINI, 2498-4, 88593-5, 2275-4, CBCA #### [facility] ([id number]) [address], [facility] [address] [place] [address] MCHC (RBC) [Mass/Vol] 34.3 g/dL Normal 32-36 [facility] Comment on above: Performed By: #### C ROHINI, 2498-4, 95572-6, 2276-4, CBCA #### [facility] ([id number]) [address], [facility] [address] [place] [address] MCV (RBC) [Entitic vol] 89 fL Normal 80-100 [facility] Comment on above: Performed By: #### C MP, 2498-4, 19049-9, 2276-4, CBCA #### [facility] ([id number]) [address], [address] [place] [address] Monocytes (Bld) [#/Vol] 0.5 10*3/uL Normal 0-0.9 [facility] Comment on above: Performed By: #### C MP, 2498-4, 89270-8, 2276-4, CBCA #### [facility] ([id number]) [address], [address] [place] [address] Monocytes/100 WBC (Bld) 7.3 % Normal [facility] Comment on above: Performed By: #### C MP, 2498-4, 48236-8, 2276-4, CBCA #### [facility] ([id number]) [address], [facility] [address] [place] [address] Neutrophils/100 WBC (Bld) 53.6 % Normal [facility] Comment on above: Performed By: #### C MP, 2498-4, 07945-1, 2276-4, CBCA #### [facility] ([id number]) [address], [facility] [address] [place] [address] Platelet mean volume (Bld) [Entitic vol] 8.1 fL Normal 7-12 [facility] Comment on above: Performed By: #### C MP, 2498-4, 63863-8, 2276-4, CBCA #### [facility] ([id number]) [address], [address] [place] [address] Platelets (Bld) [#/Vol] 169 10*3/uL Normal 150-450 [facility] Comment on above: Performed By: #### C MP, 2498-4, 77442-7, 2276-4, CBCA #### [facility] ([id number]) [address], [address] [place] [address] RBC COUNT 4.41 X10E12/L Normal 4.10-5.70 [facility] Comment on above: Performed By: #### C ROHINI, 2498-4, 84373-1, 2276-4, CBCA #### [facility] ([id number]) [address], [address] [place] [address] WBC (Bld) [#/Vol] 7.0 10*3/uL Normal 4.0-11.[address] [facility] Comment on above: Performed By: #### C ROHINI, 2498-4, 75238-5, 2276-4, CBCA #### [facility] ([id number]) [address], [address] [place] [address] COMPREHENSIVE METABOLIC PANE Aaron 05-04-2023 Albumin [Mass/Vol] 4.0 g/dL Normal 3.2-5.[address] [facility] Comment on above: Performed By: #### C ROHINI, 2498-4, 78171-7, 2276-4, CBCA #### [facility] ([id number]) [address], [address] [place] [address] ALP [Catalytic activity/Vol] 89 U/L Normal 39-130 [facility] Comment on above: Performed By: #### C ROHINI, 2498-4, 80421-4, 2276-4, CBCA #### [facility] ([id number]) [address], [address] [place] [address] ALT [Catalytic activity/Vol] 15 U/L Normal 0-40 [facility] Comment on above: Performed By: #### C ROHINI, 2498-4, 23661-9, 2276-4, CBCA #### [facility] ([id number]) [address], [address] [place] [address] Anion gap [Moles/Vol] 9 mmol/L Normal 5-15 [facility] Comment on above: Performed By: #### C MP, 2498-4, 09014-0, 2276-4, CBCA #### [facility] ([id number]) [address], [address] [place] [address] AST [Catalytic activity/Vol] 13 U/L Normal 0-41 [facility] Comment on above: Performed By: #### C ROHINI, 2498-4, 93782-5, 2276-4, CBCA #### [facility] ([id number]) [address], [address] [place] [address] Bilirubin [Mass/Vol] 1.1 mg/dL Normal 0.3-1.2 [facility] Comment on above: Performed By: #### C ROHINI, 2498-4, 52380-8, 2276-4, CBCA #### [facility] ([id number]) [address], [address] [place] [address] Calcium [Mass/Vol] 8.9 mg/dL Normal 8.5-10.[address] [facility] Comment on above: Performed By: #### C ROHINI, 2498-4, 78916-0, 2276-4, CBCA #### [facility] ([id number]) [address], [address] [place] [address] Chloride [Moles/Vol] 104 mmol/L Normal 98-109 [facility] Comment on above: Performed By: #### C ROHINI, 2498-4, 06558-9, 2276-4, CBCA #### [facility] ([id number]) [address], [address] [place] [address] CO2 [Moles/Vol] 28 mmol/L Normal 22-32 [facility] Comment on above: Performed By: #### C ROHINI, 2498-4, 29053-7, 2276-4, CBCA #### [facility] ([id number]) [address], [address] [place] [address] Creatinine [Mass/Vol] 0.80 mg/dL Normal 0.60-1.30 [facility] Comment on above: Result Comment: METH OD TRACEABLE TO IDMS STANDARD Performed By: #### C ROHINI, 2498-4, 20977-4, 2276-4, CBCA #### [facility] ([id number]) [address], [address] [place] [address] eGFR (CKD-EPI) NON-RACE DEPENDENT >90 Normal >59 [facility] Comment on above: Result Comment: Reported eGFR is based on the CKD-EPI 2020 equation that does not use a race coefficient. Performed By: #### C ROHINI, 2498-4, 82339-7, 2275-4, CBCA #### [facility] ([id number]) [address], [address] [place] [address] Glucose [Mass/Vol] 90 mg/dL Normal 65-[address] [facility] Comment on above: Performed By: #### C ROHINI, 2498-4, 78247-7, 2275-4, CBCA #### [facility] ([id number]) [address], [address] [place] [address] Potassium [Moles/Vol] 3.2 mmol/L Low 3.5-5.0 [facility] Comment on above: Performed By: #### C ROHINI, 2498-4, 96187-8, 2275-4, CBCA #### [facility] ([id number]) [address], [address] [place] [address] Protein [Mass/Vol] 6.3 g/dL Normal 6.0-8.[address] [facility] Comment on above: Performed By: #### C ROHINI, 2498-4, 87210-5, 2276-4, CBCA #### [facility] ([id number]) [address], [address] [place] [address] Sodium [Moles/Vol] 141 mmol/L Normal 134-[address] [facility] Comment on above: Performed By: #### C MP, 2498-4, 66437-9, 2276-4, CBCA #### [facility] ([id number]) [address], [address] [place] [address] Urea nitrogen [Mass/Vol] 20 mg/dL Normal 5-27 [facility] Comment on above: Performed By: #### C MP, 2498-4, 13976-5, 2276-4, CBCA #### [facility] ([id number]) [address], [address] [place] [address] Comprehensive metabolic pane aaron 05-04-2023 Albumin [Mass/Vol] 4.0 g/dL 3.2 - 5.3 g/dL [facility] ALP [Catalytic activity/Vol] 89 U/L 39 - 130 U/L [facility] ALT No additional P-5'-P [Catalytic activity/Vol] 15 U/L 0 - 40 U/L [facility] Anion gap [Moles/Vol] 9 mmol/L 5 - 15 mmol/L [facility] AST [Catalytic activity/Vol] 13 U/L 0 - 41 U/L [facility] Bilirubin [Mass/Vol] 1.1 mg/dL 0.3 - 1 .2 mg/dL [facility] Calcium [Mass/Vol] 8.9 mg/dL 8.5 - 10. 5 mg/dL [facility] Chloride [Moles/Vol] 104 mmol/L 98 - 10 9 mmol/L [facility] CO2 [Moles/Vol] 28 mmol/L 22 - 32 mmol/L [facility] Creatine [Mass/Vol] 0.80 mg/dL 0.60 - 1 .30 mg/dL [facility] Comment on above: METHOD TRACEABLE TO IDMS STANDARD GFR/1.73 sq M.predicted among non-blacks MDRD (S/P/Bld) [Vol rate/Area] mL/min/{1.73_m2} - PINF [facility] Comment on above: Reported eGFR is based on the CKD-EPI 2020 equation that does not use a race coefficient. PERFORMED AT [facility] [address],[place] [address] Glucose [Mass/Vol] 90 mg/dL 65 - 99 mg/dL [facility] Potassium [Moles/Vol] 3.2 mmol/L Low 3.5 - 5.0 mmol/L [facility] Protein [Mass/Vol] 6.3 g/dL 6.0 - 8.0 g/dL [facility] Sodium [Moles/Vol] 141 mmol/L 134 - 146 mmol/L [facility] Urea nitrogen [Mass/Vol] 20 mg/dL 5 - 27 mg/dL [facility] FERRITINon 05-04-2023 Ferritin [Mass/Vol] 99 ng/mL Normal 24-336 [facility] Comment on above: Performed By: #### David NOVA, 2498-4, 91524-4, 2276-4, CBCA #### [facility] ([id number]) [address], [address] [place] [address] HGB A1C (GLYCO-HGB)on 2023 Glucose [Mass/Vol] 226 mg/dL Normal [facility] Comment on above: Performed By: #### David NOVA, 2498-4, 16937-9, 2276-4, CBCA #### [facility] ([id number]) [address], [address] [place] [address] HbA1c (Bld) [Mass fraction] 9.5 % High 4.4-5.6 [facility] Comment on above: Result Comment: NOTE ADA Guidelines Result HgbA1c Normal : less than 5.7 % Prediabetes : 5.7 % to 6.4 % Diabetes : > 6.4 % Use with caution in patients with abnormal hemoglobin variants as the half-life of red blood cells and in vivo glycation rates are affected. Performed By: #### David NOVA, 2498-4, 54192-3, 2276-4, CBCA #### [facility] ([id number]) [address], [address] [place] [address] IRONon 05-04-2023 Iron [Mass/Vol] 54 ug/dL Normal 50-212 [facility] Comment on above: Performed By: #### David NOVA, 2498-4, 25311-0, 227-4, CBCA #### [facility] ([id number]) [address], [address] [place] [address] Lipid 1996 panelon Cholesterol [Mass/Vol] 104 mg/dL Low 150-200 [facility] Comment on above: Performed By: #### David NOVA, 2498-4, 58712-0, 2275-4, CBCA #### [facility] ([id number]) [address], [address] [place] [address] Cholesterol in HDL [Mass/Vol] 42 mg/dL Normal >39 [facility] Comment on above: Result Comment: HDL <40 mg/dL - High Risk HDL > or = 40mg/dL- Desirable HDL >60 mg/dL - Negative Risk Performed By: #### David NOVA, 2498-4, 56736-1, 2275-4, CBCA #### [facility] ([id number]) [address], [address] [place] [address] Cholesterol in LDL [Mass/Vol] 37 mg/dL Normal <130 [facility] Comment on above: Result Comment: LDL <100 mg/dL - Desirable LDL >160 mg/dL - High Risk Performed By: #### David NOVA, 2498-4, 73880-9, 6-4, CBCA #### [facility] ([id number]) [address], [address] [place] [address] Cholesterol in VLDL [Mass/Vol] 25 mg/dL Normal 0-30 [facility] Comment on above: Performed By: #### C ROHINI, 2498-4, 99773-5, 2276-4, CBCA #### [facility] ([id number]) [address], [address] [place] [address] CHOLESTEROL:HDL 2.5 Normal 1.0-5.0 [facility] Comment on above: Performed By: #### C MP, 2498-4, 14762-9, 2276-4, CBCA #### [facility] ([id number]) [address] [facility] [address] Triglyceride [Mass/Vol] 127 mg/dL Normal 27-150 [facility] Comment on above: Performed By: #### C ROHINI, 2498-4, 32351-5, 2276-4, CBCA #### [facility] ([id number]) [address], [address] [place] [address] MICROALBUMIN - ALBUMIN:CREAT ININE URINE RATIOon 05-04-2023 ALB/CREAT RATIO NOT CALCULATED Normal 0.0-30.0 [facility] Comment on above: Result Comment: Result for Albumin/Creatinine Ratio cannot be reliably calculated because urine albumin and or urine creatinine is below the detection limit of the assay. Performed By: #### M ALBU #### [facility] ([id number]) [address], [address] [place] [address] Albumin DL <= 20 mg/L (U) [Mass/Vol] mg/dL Normal 0.0-1.9 [facility] Comment on above: Performed By: #### M ALBU #### [facility] ([id number]) [address] [facility] [place] [address] URINE CREAT 108.56 mg/dL Normal [facility] Comment on above: Performed By: #### M ALBU #### [facility] ([id number]) [address], [address] [place] [address] No Panel Informationon 05-04 Interpretation and review of laboratory results Abnormal [facility] URINALYSISon 05-04-2023 Bilirubin Ql (U) Negative Normal NEG [facility] Comment on above: Performed By: #### M ALBU #### [facility] ([id number]) [address], [address] [place] [address] BLOOD/HGB Negative Normal NEG [facility] Comment on above: Performed By: #### M ALBU #### [facility] ([id number]) [address] [facility] [place] [address] Color (U) YELLOW Normal YELLOW [facility] Comment on above: Performed By: #### M ALBU #### [facility] ([id number]) [address], [address] [place] [address] Glucose Ql (U) >1000 Abnormal NEG [facility] Comment on above: Performed By: #### M ALBU #### [facility] ([id number]) [address], [address] [place] [address] Hyaline casts LM Ql (Urine sed) 1 /lpf Normal 0-2 [facility] Comment on above: Performed By: #### M ALBU #### [facility] ([id number]) [address], [address] [place] [address] Ketones Ql (U) Negative Normal NEG [facility] Comment on above: Performed By: #### M ALBU #### [facility] ([id number]) [address] [address] [place] [address] Leukocyte esterase Test strip Ql (U) Negative Normal NEG [facility] Comment on above: Result Comment: HIGH CONCENTRATIONS OF GLUCOSE MAY DECREASE THE REACTIVITY OF THE DIPSTICK LEUKOCYTE TEST PAD. Performed By: #### M ALBU #### [facility] ([id number]) [address], [address] [place] [address] MUCOUS PRESENT Abnormal NONE [facility] Comment on above: Performed By: #### M ALBU #### [facility] ([id number]) [address], [address] [place] [address] Nitrite Ql (U) Negative Normal NEG [facility] Comment on above: Performed By: #### M ALBU #### [facility] ([id number]) [address], [address] [place] [address] pH (U) 5.5 [pH] Normal 5.0-8.5 [facility] Comment on above: Performed By: #### Brionna ALBU #### [facility] ([id number]) [address], [address] [place] [address] Protein Ql (U) Trace Abnormal NEG [facility] Comment on above: Performed By: #### Brionna ALBU #### [facility] ([id number]) [address], [address] [place] [address] R.B.CELLS 1 /hpf Normal 0-5 [facility] Comment on above: Performed By: #### Brionna ALBU #### [facility] ([id number]) [address], [address] [place] [address] Specific gravity (U) [Rel density] 1.023 Normal 1.003-1.035 [facility] Comment on above: Performed By: #### M ALBU #### [facility] ([id number]) [address], [address] [place] [address] SQUAMOUS EPITHELIUM <1 Normal 0-5 [facility] Comment on above: Performed By: #### Brionna ALBU #### [facility] ([id number]) [address], [address] [place] [address] TURBIDITY CLEAR Normal CLEAR [facility] Comment on above: Performed By: #### Brionna ALBU #### [facility] ([id number]) [address], [address] [place] [address] Urobilinogen (U) [Mass/Vol] mg/dL Normal <1.1 [facility] Comment on above: Performed By: #### M ALBU #### [facility] ([id number]) [address] [facility] [place] [address] W.B.CELLS 1 /hpf Normal 0-5 [facility] Comment on above: Performed By: #### M ALBU #### [facility] ([id number]) [address], [address] [place] [address] Urinalysis, manual onlyon Epithelial cells Auto (Urine sed) [#/Area] <1 [facility] Glucose (U) [Mass/Vol] mg/dL Abnormal Negat bossman mg/dL [facility] Hemoglobin Auto test strip Ql (U) Negative Negative [facility] [place] Hyaline casts (Urine sed) [#/Area] 1 /[LPF] [facility] [place] Ketones (U) [Mass/Vol] Negative Negat bossman mg/dL [facility] Leukocyte esterase Auto test strip Ql (U) Negative Negative [facility] Comment on above: HIGH CONCENTRATIONS OF GLUCOSE MAY DECREASE THE REACTIVITY OF THE DIPSTICK LEUKOCYTE TEST PAD. Mucus Ql (Urine sed) PRESENT Abnormal NONE [facility] [place] Nitrite Auto test strip Ql (U) Negative Negative [facility] Protein (U) [Mass/Vol] Trace Abnormal Negat bossman mg/dL [facility] RBC Auto (Urine sed) [#/Area] 1 [facility] Specific gravity Refractometry automated (U) [Rel density] 1.023 1.003 - 1.035 [facility] Turbidity Ql (U) CLEAR CLEAR [facility] [place] Urobilinogen Qn (U) <1.1 NINF [facility] WBC Auto (Urine sed) [#/Area] 1 [facility] CBC AUTO DIFFon 06-11-2022 BASO # 0.0 103/ul Normal 0.0-0.1 [facility] Comment on above: Performed By: #### C BC #### [facility] [address] [place] [address] Dr. Enoch Stein Basophils/100 WBC (Bld) 0.6 % Normal 0.2-2.0 [facility] Comment on above: Performed By: #### C BC #### [facility] [address] [place] [address] Dr. Enoch Stein EO # 0.2 103/ul Normal 0.0-0.7 [facility] Comment on above: Performed By: #### C BC #### [facility] [address] [place] [address] Dr. Enoch Stein Eosinophils/100 WBC (Bld) 2.9 % Normal 0.9-7.0 [facility] Comment on above: Performed By: #### C BC #### [facility] [address] [place] [address] Dr. Enoch Stein Erythrocyte distribution width (RBC) [Ratio] 13.7 % Normal 11.0-15.0 [facility] Comment on above: Performed By: #### C BC #### [facility] [address] [place] [address] Dr. Enoch Stein Hematocrit (Bld) [Volume fraction] 35.6 % Critically low 42.0-54.0 [facility] Comment on above: Performed By: #### C BC #### [facility] [address] [place] [address] Dr. Enoch Stein Hemoglobin (Bld) [Mass/Vol] 11.7 g/dL Critically low 14.0-18.0 [facility] Comment on above: Performed By: #### C BC #### [facility] [address] [place] [address] Dr. Encoh Stein IG # 0.03 10e3/ul Normal 0.00-0.03 [facility] Comment on above: Performed By: #### C BC #### [facility] [address] [place] [address] Dr. Enoch Stein IG % 0.5 % Normal 0.0-0.5 [facility] Comment on above: Performed By: #### C BC #### [facility] [address] [address] [address] Enoch Stein LYMPH # 2.2 103/ul Normal 1.2-3.8 [facility] Comment on above: Performed By: #### C BC #### [facility] [address] [place] [address] Dr. Enoch Stein Lymphocytes/100 WBC (Bld) 35.4 % Normal 20.5-60.0 [facility] Comment on above: Performed By: #### C BC #### [facility] [address] [place] [address] Dr. Enoch Stein MANUAL DIFF REQ NO Normal [facility] Comment on above: Performed By: #### C BC #### [facility] [address] [place] [address] Dr. Enoch Stein MCH (RBC) [Entitic mass] 30.5 pg Normal 25.9-34.0 [facility] Comment on above: Performed By: #### C BC #### [facility] [address] [place] [address] Dr. Enoch Stein MCHC (RBC) [Mass/Vol] 32.9 g/dL Normal 29.9-35.2 [facility] Comment on above: Performed By: #### C BC #### [facility] [address] [place] [address] Dr. Enoch Stein MCV (RBC) [Entitic vol] 92.7 fL Normal 80.0-94.0 [facility] Comment on above: Performed By: #### C BC #### [facility] [address] [place] [address] Dr. Enoch Stein MONO # 0.5 103/ul Normal 0.3-0.8 [facility] Comment on above: Performed By: #### C BC #### [facility] [address] [place] [address] Dr. Enoch Stein Monocytes/100 WBC (Bld) 7.6 % Normal 1.7-12.0 [facility] Comment on above: Performed By: #### C BC #### [facility] [address] [place], [place] [address] Dr. Enoch Stein NEUT # 3.3 103/ul Normal 1.4-6.5 [facility] Comment on above: Performed By: #### C BC #### [facility] [address] [address] [address] Enoch Stein Neutrophils/100 WBC (Bld) 53.0 % Normal 43.0-75.0 [facility] Comment on above: Performed By: #### C BC #### [facility] [address] [address] [address] Enoch Stein Platelet mean volume (Bld) [Entitic vol] 9.4 fL Critically low 9.5-13.5 [facility] Comment on above: Performed By: #### C BC #### [facility] [address] [place] [address] Dr. Enoch Stein PLT 225 103/ul Normal 150-450 [facility] Comment on above: Performed By: #### C BC #### [facility] [address] [address] [address] Enoch Stein RBC 3.84 106/ul Critically low 4.70-6.10 [facility] Comment on above: Performed By: #### C BC #### [facility] [address] [address] [address] Enoch Stein WBC 6.2 103/ul Normal 4.0-11.0 [facility] Comment on above: Performed By: #### C BC #### [facility] [address] [place] [address] Dr. Enoch Stein ECHOCARDIO M/2D COMPLETEon 0 06-11-2022 ECHOCARDIO M/2D COMPLETE Patient: KIMMY MCARTHUR Exam Date: 06/11/2022 : 1945 Gender:M Ordering : MARCO CONDON Admission #: [id number] Family : ELO MARISOL GUERATu POINT OF CARE SPECIALIST Order #: [id number] CLICK HERE TO VIEW EXAM ECHOCARDIOGRAM REPORT PROCEDURE: CARDIO PULMONARY ECHOCARDIO M/2D COMP INDICATIONS: Dyspnea on exertion, post-COVID chronic dyspnea, ND, PTCA, hypertension, diabetes COMPARISON: None. DESCRIPTION: COMPLETE [...] M.D. on 06/11/2022 at 14:32 Normal [facility] FERRITINon 06-11-2022 Ferritin [Mass/Vol] 52.0 ng/mL Normal 26.0-388.0 [facility] Comment on above: Performed By: #### F ERR, IRON, VITB12 #### [facility] [address] [place] [address] Dr. Enoch Stein GLYCOHEMOGLOBIN A1Con 2022 ADA RECOMMENDATION SEE BELOW Normal [facility] Comment on above: Result Comment: ADA RECOMMENDED LIMIT 4.0 - 6.0 ADA THERAPEUTIC TARGET < 7.0 ACTION SUGGESTED > 7.0 Performed By: #### F ERR, IRON, VITB12 #### [facility] [address] [address] [address] Enoch Stein Glucose [Mass/Vol] 180 mg/dL Normal [facility] Comment on above: Performed By: #### F ERR, IRON, VITB12 #### [facility] [address] [address] [address] Enoch Stein HbA1c (Bld) [Mass fraction] 7.9 % Critically high 4.5-6.2 [facility] Comment on above: Performed By: #### F ERR, IRON, VITB12 #### [facility] [address] [address] [address] Enoch Stein IRONon 06-11-2022 Iron [Mass/Vol] 86.0 ug/dL Normal 65.0-175.0 [facility] Comment on above: Performed By: #### F ERR, IRON, VITB12 #### [facility] [address] [address] [address] Enoch Stein LIPID PROFILEon 06-11-2022 CHOL-HDL RATIO NORM SEE BELOW Normal [facility] Comment on above: Result Comment: 3.3 - 4.4 LOW RISK 4.4 - 7.1 AVERAGE RISK 7.1 - 11.0 MODERATE RISK >11.0 HIGH RISK Performed By: #### F ERR, IRON, VITB12 #### [facility] [address] [address] [address] Enoch Stein Cholesterol [Mass/Vol] 113 mg/dL Normal <=200 [facility] Comment on above: Performed By: #### F ERR, IRON, VITB12 #### [facility] [address] [address] [address] Enoch Stein Cholesterol in HDL [Mass/Vol] 52 mg/dL Normal 40-60 [facility] Comment on above: Performed By: #### F ERR, IRON, VITB12 #### [facility] [address] [address] [address] Enoch Stein Cholesterol in LDL [Mass/Vol] 47.0 mg/dL Normal [facility] Comment on above: Performed By: #### F ERR, IRON, VITB12 #### [facility] [address] [address] [address] Enoch Stein Cholesterol.total/Chol esterol in HDL [Mass ratio] 2.2 {ratio} Normal [facility] Comment on above: Performed By: #### F ERR, IRON, VITB12 #### [facility] [address] [address] [address] Enoch Stein HDL NORMAL > or = 60 mg/dl - LO W CARDIOVASCULAR RISK <40 mg/dl - HIGH CARDIOVASCULAR RISK Normal [facility] Comment on above: Performed By: #### F ERR, IRON, VITB12 #### [facility] [address] [address] [address] Enoch Stein LDL CALC NORMAL SEE BELOW Normal [facility] Comment on above: Result Comment: <100 mg/dl OPTIMAL 100 - 129 mg/dl NEAR OR ABOVE OPTIMAL 130 - 159 mg/dl BORDERLINE HIGH 160 - 189 mg/dl HIGH >190 mg/dl VERY HIGH Performed By: #### F ERR, IRON, VITB12 #### [facility] [address] [address] [address] Enoch Stein Triglyceride [Mass/Vol] 70 mg/dL Normal <=150 [facility] Comment on above: Performed By: #### F ERR, IRON, VITB12 #### [facility] [address] [address] [address] Enoch Stein VLDL CALC 14.0 mg/dL Normal [facility] Comment on above: Performed By: #### F ERR, IRON, VITB12 #### [facility] [address] [place] [address] Dr. Enoch Stein MICROALBUMIN, RAND URon 03-1 mALB <1.3 Normal <=30.0 [facility] Comment on above: Performed By: #### M ALBR #### [facility] [address] [place] [address] Dr. Enoch Stein PROF 14(COMP METB)on 023 Albumin [Mass/Vol] 3.7 g/dL Normal 3.4-5.0 [facility] Comment on above: Performed By: #### F ERR, IRON, VITB12 #### [facility] [address] [place] [address] Dr. Enoch Stein Albumin/Globulin [Mass ratio] 1.2 {ratio} Normal [facility] Comment on above: Performed By: #### F ERR, IRON, VITB12 #### [facility] [address] [place] [address] Dr. Enoch Stein ALP [Catalytic activity/Vol] 90 U/L Normal 46-116 [facility] Comment on above: Performed By: #### F ERR, IRON, VITB12 #### [facility] [address] [place] [address] Dr. Enoch Stein ALT [Catalytic activity/Vol] 34 U/L Normal 16-63 [facility] Comment on above: Performed By: #### F ERR, IRON, VITB12 #### [facility] [address] [place] [address] Dr. Enoch Stein Anion gap [Moles/Vol] 14.8 mmol/L Normal [facility] Comment on above: Performed By: #### F ERR, IRON, VITB12 #### [facility] [address] [place] [address] Dr. Enoch Stein AST [Catalytic activity/Vol] 22 U/L Normal 15-37 [facility] Comment on above: Performed By: #### F ERR, IRON, VITB12 #### [facility] [address] [place] [address] Dr. Enoch Stein Bilirubin [Mass/Vol] 0.6 mg/dL Normal 0.2-1.0 [facility] Comment on above: Performed By: #### F ERR, IRON, VITB12 #### [facility] [address] [place] [address] Dr. Enoch Stein Calcium [Mass/Vol] 9.7 mg/dL Normal 8.5-10.1 [facility] Comment on above: Performed By: #### F ERR, IRON, VITB12 #### [facility] [address] [address] [address] Enoch Stein Chloride [Moles/Vol] 105 mmol/L Normal 98-107 [facility] Comment on above: Performed By: #### F ERR, IRON, VITB12 #### [facility] [address] [address] [address] Enoch Stein CO2 [Moles/Vol] 26.7 mmol/L Normal 21.0-32.0 [facility] Comment on above: Performed By: #### F ERR, IRON, VITB12 #### [facility] [address] [place] [address] Dr. Enoch Stein Creatinine [Mass/Vol] 0.78 mg/dL Normal 0.70-1.30 [facility] Comment on above: Performed By: #### F ERR, IRON, VITB12 #### [facility] [address] [place] [address] Dr. Enoch Stein EGFR-AF KITTITIAN >60 Normal >=60 [facility] Comment on above: Performed By: #### F ERR, IRON, VITB12 #### [facility] [address] [place] [address] Dr. Enoch Stein EGFR-NON AF KITTITIAN >60 Normal >=60 [facility] Comment on above: Performed By: #### F ERR, IRON, VITB12 #### [facility] [address] [place] [address] Dr. Enoch Stein Globulin (S) [Mass/Vol] 3.2 g/dL Normal [facility] Comment on above: Performed By: #### F ERR, IRON, VITB12 #### [facility] [address] [place] [address] Dr. Enoch Stein Glucose [Mass/Vol] 179 mg/dL Critically high 74-106 [facility] Comment on above: Performed By: #### F ERR, IRON, VITB12 #### [facility] [address] [place] [address] Dr. Enoch Stein Potassium [Moles/Vol] 4.5 mmol/L Normal 3.5-5.1 [facility] Comment on above: Performed By: #### F ERR, IRON, VITB12 #### [facility] [address] [place] [address] Dr. Enoch Stein Protein [Mass/Vol] 6.9 g/dL Normal 6.4-8.2 [facility] Comment on above: Performed By: #### F ERR, IRON, VITB12 #### [facility] [address] [place] [address] Dr. Enoch Stein Sodium [Moles/Vol] 142 mmol/L Normal 136-145 [facility] Comment on above: Performed By: #### F ERR, IRON, VITB12 #### [facility] [address] [place] [address] Dr. Enoch Stein Urea nitrogen [Mass/Vol] 19.0 mg/dL Critically high 7.0-18.0 [facility] Comment on above: Performed By: #### F ERR, IRON, VITB12 #### [facility] [address] [place] [address] Dr. Enoch Stein Urea nitrogen/Creatinine [Mass ratio] 24.4 mg/mg Normal [facility] Comment on above: Performed By: #### F ERR, IRON, VITB12 #### [facility] [address] [place] [address] Dr. Enoch Stein UA RANDOM W/MICROSCOPICon BACTERIA NONE SEEN Normal NONE SEEN [facility] Comment on above: Performed By: #### U AMIC #### [facility] [address] [place] [address] Dr. Enoch Stein Bilirubin Ql (U) Negative Normal NEGATIVE [facility] Comment on above: Performed By: #### U AMIC #### [facility] [address] [place] [address] Dr. Enoch Stein CAST NONE SEEN Normal NONE SEEN [facility] Comment on above: Performed By: #### U AMIC #### [facility] [address] [address] [address] Enoch Stein Clarity (U) CLEAR Normal CLEAR [facility] Comment on above: Performed By: #### U AMIC #### [facility] [address] [place] [address] Dr. Enoch Stein Color (U) LT. YELLOW Normal YELLOW [facility] Comment on above: Performed By: #### U AMIC #### [facility] [address] [address] [address] Enoch Stein Crystals LM Nom (Urine sed) NONE SEEN Normal NONE SEEN [facility] Comment on above: Performed By: #### U AMIC #### [facility] [address] [place] [address] Dr. Enoch Stein Epithelial cells LM Ql (Urine sed) NONE SEEN Normal NONE SEEN /RARE [facility] Comment on above: Performed By: #### U AMIC #### [facility] [address] [place] [address] Dr. Enoch Stein Glucose Ql (U) 250 mg/dl Abnormal NEGATIVE [facility] Comment on above: Performed By: #### U AMIC #### [facility] [address] [place] [address] Dr. Enoch Stein Hemoglobin Ql (U) Negative Normal NEGATIVE [facility] Comment on above: Performed By: #### U AMIC #### [facility] [address] [place] [address] Dr. Enoch Stein Ketones Ql (U) Negative Normal NEGATIVE [facility] Comment on above: Performed By: #### U AMIC #### [facility] [address] [place] [address] Dr. Enoch Stein LEUKOCYTES Negative Normal NEGATIVE [facility] Comment on above: Performed By: #### U AMIC #### [facility] [address] [place] [address] Dr. Enoch Stein MUCOUS TRACE Abnormal NONE SEEN [facility] Comment on above: Performed By: #### U AMIC #### [facility] [address] [place] [address] Dr. Enoch Stein Nitrite Ql (U) Negative Normal NEGATIVE [facility] Comment on above: Performed By: #### U AMIC #### [facility] [address] [address] [address] Enoch Stein pH (U) 5.5 [pH] Normal 5-9 [facility] Comment on above: Performed By: #### U AMIC #### [facility] [address] [address] [address] Enoch Stein RBC NONE SEEN Abnormal 0-2 [facility] Comment on above: Performed By: #### U AMIC #### [facility] [address] [address] [address] Enoch Stein SPEC GRAVITY 1.020 Normal 1.005-<=1.02 5 [facility] Comment on above: Performed By: #### U AMIC #### [facility] [address] [place] [address] Dr. Enoch Stein UA PROTEIN Negative Normal NEGATIVE/ TRACE [facility] Comment on above: Performed By: #### U AMIC #### [facility] [address] [place] [address] Dr. Enoch Stein Urobilinogen Qn (U) 0.2 {Reilly'U}/dL Normal 0.2 - 1. 0 [facility] Comment on above: Performed By: #### U AMIC #### [facility] [address] [place] [address] Dr. Enoch Stein WBC NONE SEEN Normal NONE SEEN [facility] Comment on above: Performed By: #### U AMIC #### [facility] [address] [place] [address] Dr. Enoch Stein VITAMIN B12on 06-11-2022 Cobalamin (Vitamin B12) [Mass/Vol] 413.0 pg/mL Normal 193.0-986.0 [facility] Comment on above: Performed By: #### F ERR, IRON, VITB12 #### [facility] [address] [place] [address] ABD/PELV W CONon [...] SANJAY REECE Date: 2022-01-06 16:24 Normal [facility] AMYLASEon 01-05-2022 Amylase [Catalytic activity/Vol] 55 U/L Normal 25-115 [facility] Comment on above: Performed By: #### F ERR, IRON, VITB12 #### [facility] [address] [address] [address] Enoch Stein CBC AUTO DIFFon 01-05-2022 BASO # 0.0 103/ul Normal 0.0-0.1 [facility] Comment on above: Performed By: #### F ERR, IRON, VITB12 #### [facility] [address] [address] [address] Enoch Stein Basophils/100 WBC (Bld) 0.5 % Normal 0.2-2.0 [facility] Comment on above: Performed By: #### F ERR, IRON, VITB12 #### [facility] [address] [place] [address] Dr. Enoch Stein EO # 0.3 103/ul Normal 0.0-0.7 [facility] Comment on above: Performed By: #### F ERR, IRON, VITB12 #### [facility] [address] [place] [address] Dr. Enoch Stein Eosinophils/100 WBC (Bld) 3.7 % Normal 0.9-7.0 [facility] Comment on above: Performed By: #### F ERR, IRON, VITB12 #### [facility] [address] [place] [address] Dr. Enoch Stein Erythrocyte distribution width (RBC) [Ratio] 13.2 % Normal 11.0-15.0 [facility] Comment on above: Performed By: #### F ERR, IRON, VITB12 #### [facility] [address] [place] [address] Dr. Enoch Stein Hematocrit (Bld) [Volume fraction] 39.3 % Critically low 42.0-54.0 [facility] Comment on above: Performed By: #### F ERR, IRON, VITB12 #### [facility] [address] [place] [address] Dr. Enoch Stein Hemoglobin (Bld) [Mass/Vol] 13.0 g/dL Critically low 14.0-18.0 [facility] Comment on above: Performed By: #### F ERR, IRON, VITB12 #### [facility] [address] [place] [address] Dr. Enoch Stein IG # 0.04 10e3/ul Critically high 0.00-0.03 [facility] Comment on above: Performed By: #### F ERR, IRON, VITB12 #### [facility] [address] [place] [address] Dr. Enoch Stein IG % 0.5 % Normal 0.0-0.5 [facility] Comment on above: Performed By: #### F ERR, IRON, VITB12 #### [facility] [address] [place] [address] Dr. Enoch Stein LYMPH # 1.6 103/ul Normal 1.2-3.8 [facility] Comment on above: Performed By: #### F ERR, IRON, VITB12 #### [facility] [address] [place] [address] Dr. Enoch Stein Lymphocytes/100 WBC (Bld) 20.4 % Critically low 20.5-60.0 [facility] Comment on above: Performed By: #### F ERR, IRON, VITB12 #### [facility] [address] [place] [address] Dr. Enoch Stein MANUAL DIFF REQ NO Normal [facility] Comment on above: Performed By: #### F ERR, IRON, VITB12 #### [facility] [address] [place] [address] Dr. Enoch Stein MCH (RBC) [Entitic mass] 30.5 pg Normal 25.9-34.0 [facility] Comment on above: Performed By: #### F ERR, IRON, VITB12 #### [facility] [address] [place] [address] Dr. Enoch Stein MCHC (RBC) [Mass/Vol] 33.1 g/dL Normal 29.9-35.2 [facility] Comment on above: Performed By: #### F ERR, IRON, VITB12 #### [facility] [address] [place] [address] Dr. Enoch Stein MCV (RBC) [Entitic vol] 92.3 fL Normal 80.0-94.0 [facility] Comment on above: Performed By: #### F ERR, IRON, VITB12 #### [facility] [address] [place] [address] Dr. Enoch Steni MONO # 0.4 103/ul Normal 0.3-0.8 [facility] Comment on above: Performed By: #### F ERR, IRON, VITB12 #### [facility] [address] [place] [address] Dr. Enoch Stein Monocytes/100 WBC (Bld) 4.7 % Normal 1.7-12.0 [facility] Comment on above: Performed By: #### F ERR, IRON, VITB12 #### [facility] [address] [place] [address] Dr. Enoch Stein NEUT # 5.6 103/ul Normal 1.4-6.5 [facility] Comment on above: Performed By: #### F ERR, IRON, VITB12 #### [facility] [address] [place] [address] Dr. Enoch Stein Neutrophils/100 WBC (Bld) 70.2 % Normal 43.0-75.0 [facility] Comment on above: Performed By: #### F ERR, IRON, VITB12 #### [facility] [address] [place] [address] Dr. Enoch Stein Platelet mean volume (Bld) [Entitic vol] 10.2 fL Normal 9.5-13.5 [facility] Comment on above: Performed By: #### F ERR, IRON, VITB12 #### [facility] [address] [place] [address] Dr. Enoch Stein PLT 192 103/ul Normal 150-450 [facility] Comment on above: Performed By: #### F ERR, IRON, VITB12 #### [facility] [address] [place] [address] Dr. Enoch Stein RBC 4.26 106/ul Critically low 4.70-6.10 [facility] Comment on above: Performed By: #### F ERR, IRON, VITB12 #### [facility] [address] [place] [address] Dr. Enoch Stein WBC 8.0 103/ul Normal 4.0-11.0 [facility] Comment on above: Performed By: #### F ERR, IRON, VITB12 #### [facility] [address] [place] [address] Dr. Enoch Stein CULTURE URINEon 01-05-2022 CULTURE URINE Culture Observations : NO GROWTH. Normal [facility] Comment on above: Performed By: #### F ERR, IRON, VITB12 #### [facility] [address] [place] [address] Dr. Enoch Stein GLYCOHEMOGLOBIN A1Con 2021 ADA RECOMMENDATION SEE BELOW Normal [facility] Comment on above: Result Comment: ADA RECOMMENDED LIMIT 4.0 - 6.0 ADA THERAPEUTIC TARGET < 7.0 ACTION SUGGESTED > 7.0 Performed By: #### A 1C #### [facility] [address] [place] [address] Dr. Enoch Stein Glucose [Mass/Vol] 166 mg/dL Normal [facility] Comment on above: Performed By: #### A 1C #### [facility] [address] [place] [address] Dr. Enoch Stein HbA1c (Bld) [Mass fraction] 7.4 % Critically high 4.5-6.2 [facility] Comment on above: Performed By: #### A 1C #### [facility] [address] [place] [address] Dr. Enoch Stein LIPASEon 01-05-2022 Lipase [Catalytic activity/Vol] 86.0 U/L Normal 73.0-393.0 [facility] Comment on above: Performed By: #### F ERR, IRON, VITB12 #### [facility] [address] [place] [address] Dr. Enoch Stein PROF 14(COMP METB)on 022 Albumin [Mass/Vol] 3.8 g/dL Normal 3.4-5.0 [facility] Comment on above: Performed By: #### F ERR, IRON, VITB12 #### [facility] [address] [place] [address] Dr. Enoch Stein Albumin/Globulin [Mass ratio] 1.1 {ratio} Normal [facility] Comment on above: Performed By: #### F ERR, IRON, VITB12 #### [facility] [address] [place] [address] Dr. Enoch Stein ALP [Catalytic activity/Vol] 101 U/L Normal 46-116 [facility] Comment on above: Performed By: #### F ERR, IRON, VITB12 #### [facility] [address] [place] [address] Dr. Enoch Stein ALT [Catalytic activity/Vol] 25 U/L Normal 16-63 [facility] Comment on above: Performed By: #### F ERR, IRON, VITB12 #### [facility] [address] [place] [address] Dr. Enoch Stein Anion gap [Moles/Vol] 15.2 mmol/L Normal [facility] Comment on above: Performed By: #### F ERR, IRON, VITB12 #### [facility] [address] [place] [address] Dr. Enoch Stein AST [Catalytic activity/Vol] 14 U/L Critically low 15-37 [facility] Comment on above: Performed By: #### F ERR, IRON, VITB12 #### [facility] [address] [place] [address] Dr. Enoch Stein Bilirubin [Mass/Vol] 1.0 mg/dL Normal 0.2-1.0 [facility] Comment on above: Performed By: #### F ERR, IRON, VITB12 #### [facility] [address] [place] [address] Dr. Enoch Stein Calcium [Mass/Vol] 9.4 mg/dL Normal 8.5-10.1 [facility] Comment on above: Performed By: #### F ERR, IRON, VITB12 #### [facility] [address] [place] [address] Dr. Enoch Stein Chloride [Moles/Vol] 104 mmol/L Normal 98-107 [facility] Comment on above: Performed By: #### F ERR, IRON, VITB12 #### [facility] [address] [place] [address] Dr. Enoch Stein CO2 [Moles/Vol] 27.1 mmol/L Normal 21.0-32.0 [facility] Comment on above: Performed By: #### F ERR, IRON, VITB12 #### [facility] [address] [place] [address] Dr. Enoch Stein Creatinine [Mass/Vol] 1.23 mg/dL Normal 0.70-1.30 [facility] Comment on above: Performed By: #### F ERR, IRON, VITB12 #### [facility] [address] [address] [address] Enoch Stein EGFR-AF KITTITIAN >60 Normal >=60 [facility] Comment on above: Performed By: #### F ERR, IRON, VITB12 #### [facility] [address] [address] [address] Enoch Stein EGFR-NON AF KITTITIAN 57 mL/min/1.73m2 Critically low >=60 [facility] Comment on above: Performed By: #### F ERR, IRON, VITB12 #### [facility] [address] [place] [address] Dr. Enoch Stein Globulin (S) [Mass/Vol] 3.4 g/dL Normal [facility] Comment on above: Performed By: #### F ERR, IRON, VITB12 #### [facility] [address] [place] [address] Dr. Enoch Stein Glucose [Mass/Vol] 165 mg/dL Critically high 74-106 [facility] Comment on above: Performed By: #### F ERR, IRON, VITB12 #### [facility] [address] [place] [address] Dr. Enoch Stein Potassium [Moles/Vol] 5.3 mmol/L Critically high 3.5-5.1 [facility] Comment on above: Performed By: #### F ERR, IRON, VITB12 #### [facility] [address] [place] [address] Dr. Enoch Stein Protein [Mass/Vol] 7.2 g/dL Normal 6.4-8.2 [facility] Comment on above: Performed By: #### F ERR, IRON, VITB12 #### [facility] [address] [place] [address] Dr. Enoch Stein Sodium [Moles/Vol] 141 mmol/L Normal 136-145 [facility] Comment on above: Performed By: #### F ERR, IRON, VITB12 #### [facility] [address] [place] [address] Dr. Enoch Stein Urea nitrogen [Mass/Vol] 26.0 mg/dL Critically high 7.0-18.0 [facility] Comment on above: Performed By: #### F ERR, IRON, VITB12 #### [facility] [address] [place] [address] Dr. Enoch Stein Urea nitrogen/Creatinine [Mass ratio] 21.1 mg/mg Normal [facility] Comment on above: Performed By: #### F ERR, IRON, VITB12 #### [facility] [address] [place] [address] Dr. Enoch Stein SED RATE [facility] 2021 SED RATE 4 mm/hr Normal <=20 [facility] Comment on above: Performed By: #### S EDR #### [facility] [address] [place] [address] Dr. Enoch Stein UA RANDOM W/MICROSCOPICon BACTERIA TRACE Abnormal NONE SEEN [facility] Comment on above: Performed By: #### U AMIC #### [facility] [address] [place] [address] Dr. Enoch Stein Bilirubin Ql (U) SMALL Abnormal NEGATIVE [facility] Comment on above: Performed By: #### U AMIC #### [facility] [address] [place] [address] Dr. Enoch Stein CA OX CRYSTALS FEW Normal [facility] Comment on above: Performed By: #### U AMIC #### [facility] [address] [place] [address] Dr. Enoch Stein CAST SEEN Abnormal NONE SEEN [facility] Comment on above: Performed By: #### U AMIC #### [facility] [address] [place] [address] Dr. Enoch Stein Clarity (U) CLEAR Normal CLEAR [facility] Comment on above: Performed By: #### U AMIC #### [facility] [address] [place] [address] Dr. Enoch Stein Color (U) DK. YELLOW Normal YELLOW [facility] Comment on above: Performed By: #### U AMIC #### [facility] [address] [address] [address] Enoch Stein Crystals LM Nom (Urine sed) SEEN Abnormal NONE SEEN [facility] Comment on above: Performed By: #### U AMIC #### [facility] [address] [address] [address] Enoch Stein Epithelial cells LM Ql (Urine sed) RARE Normal NONE SEEN /RARE [facility] Comment on above: Performed By: #### U AMIC #### [facility] [address] [address] [address] Enoch Stein Glucose Ql (U) Negative Normal NEGATIVE [facility] Comment on above: Performed By: #### U AMIC #### [facility] [address] [address] [address] Enoch Stein Hemoglobin Ql (U) Negative Normal NEGATIVE [facility] Comment on above: Performed By: #### U AMIC #### [facility] [address] [address] [address] Enoch Stein HYALINE CAST MODERATE Normal [facility] Comment on above: Performed By: #### U AMIC #### [facility] [address] [address] [address] Enoch Stein Ketones Ql (U) 15 mg/dl Abnormal NEGATIVE [facility] Comment on above: Performed By: #### U AMIC #### [facility] [address] [address] [address] Enoch Stein LEUKOCYTES Negative Normal NEGATIVE [facility] Comment on above: Performed By: #### U AMIC #### [facility] [address] [address] [address] Enoch Stein MUCOUS MODERATE Abnormal NONE SEEN [facility] Comment on above: Performed By: #### U AMIC #### [facility] [address] [address] [address] Enoch Stein Nitrite Ql (U) Negative Normal NEGATIVE [facility] Comment on above: Performed By: #### U AMIC #### [facility] [address] [address] [address] Enoch Stein pH (U) 6.0 [pH] Normal 5-9 [facility] Comment on above: Performed By: #### U AMIC #### [facility] [address] [address] [address] Enoch Stein RBC 0-2 Normal 0-2 [facility] Comment on above: Performed By: #### U AMIC #### [facility] [address] [address] [address] Enoch Stein SPEC GRAVITY >=1.030 Abnormal 1.005-<=1.02 5 [facility] Comment on above: Performed By: #### U AMIC #### [facility] [address] [place] [address] Dr. Enoch Stein UA PROTEIN 100 mg/dl Abnormal NEGATIVE/ TRACE [facility] Comment on above: Performed By: #### U AMIC #### [facility] [address] [address] [address] Enoch Stein Urobilinogen Qn (U) 1.0 {Reilly'U}/dL Normal 0.2 - 1. 0 [facility] Comment on above: Performed By: #### U AMIC #### [facility] [address] [place] [address] Dr. Enoch Stein WBC 0-2 Abnormal NONE SEEN [facility] Comment on above: Performed By: #### U AMIC #### [facility] [address] [place] [address] Dr. Enoch Stein ECHOCARDIO M/2D COMPLETEon 0 10-14-2021 ECHOCARDIO M/2D COMPLETE Patient: KIMMY MCARTHUR Exam Date: 10/14/2021 : 1945 Gender:M Ordering : [facility] Admission #: [id number] Family : ELO MARISOL BOYCE POINT OF CARE SPECIALIST Order #: [id number] CLICK HERE TO VIEW EXAM ECHOCARDIOGRAM REPORT [...] Campo M.D. on 10/14/2021 at 16:57 Normal [facility] CTA NECKon 03-04-2021 CTA NECK [facility] Department of Radiology [address] [place] [id number] Patient Name: KIMMY MCARTHUR : 1945 Sex: M Age: Race: White Pt. Location: [facility] Patient Status: D Ordered Date: 01/28/2021 4:35:00 PM Completed Date: 03/04/2021 10:46 AM Requesting Provider: ALEX REECE Attending Provider: ALEX REECE Report Copy To: PRABHJOT VILLATORO Signs & Symptoms: I65.29 Occlusion and stenosis of unspecified carotid artery I10 History: Keira patient will need labs Need Wed appt medicare no pc required [address] / i65.29 med nec passed *kw 02/04/21 [...] viewed on a separate workstation. The [place] Symptomatic Carotid Endarterectomy Trial (NASCET) method for [...] achievable Electronically signed: Troy Wadsworth. Transcribed by: [email or web address], User Resident: TROY WADSWORTH Electronically Signed by: TROY WADSWORTH @ 03/08/2021 08:19 AM I personally read this/these film(s) with this resident Normal [facility] Vital Signs Date Time Vital Sign Value Performing Clinician Facility 09-26-2024 08:53-0400 Body mass index (BMI) [Ratio] 22.76 kg/m2 Marisol Boyce NP Work Phone: [facility] 09-26-2024 08:53-0400 Body temperature 97.81 [degF] Marisol Boyce NP Work Phone: [facility] 09-26-2024 08:53-0400 Body weight 76.11 kg Marisol Aichholz SENSITOMETRIST Work Phone: [facility] 09-26-2024 08:53-0400 Diastolic blood pressure 60 mm[Hg] Marisol Aichholz SENSITOMETRIST Work Phone: [facility] 09-26-2024 08:53-0400 Heart rate 60 /min Marisol Aichholz [employer]ITOMETRIST Work Phone: [facility] 09-26-2024 08:53-0400 Respiratory rate 18 /min Marisol Aichholz SENSITOMETRIST Work Phone: [facility] 09-26-2024 08:53-0400 SaO2% (BldA) [Mass fraction] 98 % Marisol Aichholz S[employer]ITOMETRIST Work Phone: [facility] 09-26-2024 08:53-0400 Systolic blood pressure 128 mm[Hg] Marisol Aichholz SENSITOMETRIST Work Phone: [facility] 08-15-2024 10:37-0400 Body mass index (BMI) [Ratio] 22.43 kg/m2 Marisol Aichholz SENSITOMETRIST Work Phone: [facility] 08-15-2024 10:37-0400 Body temperature 98.49 [degF] Marisol Aichholz SENSITOMETRIST Work Phone: [facility] 08-15-2024 10:37-0400 Body weight 75.03 kg Marisol Aichholz SENSITOM[employer]RIST Work Phone: [facility] 08-15-2024 10:37-0400 Diastolic blood pressure 68 mm[Hg] Marisol Aichholz SENSITOMETRIST Work Phone: [facility] 08-15-2024 10:37-0400 Heart rate 51 /min Marisol Aichholz SENSITOMETRIST Work Phone: [facility] 08-15-2024 10:37-0400 Respiratory rate 18 /min Marisol Aichholz SENSITOM[employer]RIST Work Phone: [facility] 08-15-2024 10:37-0400 SaO2% (BldA) [Mass fraction] 96 % Marisol Chinoholz [employer]ITOMETRIST Work Phone: [facility] 08-15-2024 10:37-0400 Systolic blood pressure 108 mm[Hg] Marisol Medardohholz SENSITOMETRIST Work Phone: [facility] 05-15-2024 09:26-0500 Body height 182.9 cm Marisol Aichholz SENSITOMETRIST Work Phone: [facility] 05-15-2024 09:26-0500 Body mass index (BMI) [Ratio] 23.22 kg/m2 Marisol Aichholz S[employer]ITOMETRIST Work Phone: [facility] 05-15-2024 09:26-0500 Body temperature 98.1 [degF] Marisol Medardohholz SENSITOMETRIST Work Phone: [facility] 05-15-2024 09:26-0500 Body weight 77.66 kg Marisol Medardohholz SENSITOMETRIST Work Phone: [facility] 05-15-2024 09:26-0500 Diastolic blood pressure 62 mm[Hg] Marisol Medardohholz SENSITOMETRIST Work Phone: [facility] 05-15-2024 09:26-0500 Heart rate 57 /min Marisol Medardohholz SENSITOMETRIST Work Phone: [facility] 05-15-2024 09:26-0500 Respiratory rate 18 /min Marisol Chinoholz SENSITOMETRIST Work Phone: [facility] 05-15-2024 09:26-0500 SaO2% (BldA) [Mass fraction] 98 % Marisol Aichholz SENSITOMETRIST Work Phone: [facility] 05-15-2024 09:26-0500 Systolic blood pressure 140 mm[Hg] Marisol Aichholz SENSITOMETRIST Work Phone: [facility] 04-04-2024 11:42-0500 Body height 182.9 cm Marlin MATAMOROS Work Phone: [facility] 04-04-2024 11:42-0500 Body mass index (BMI) [Ratio] 23.79 kg/m2 Marlin Koch LOSS PREVENTION AND SAFETY MANAGER-POINT OF CARE SPECIALIST Work Phone: [facility] 04-04-2024 11:42-0500 Body weight 79.56 kg Marlin Koch LOSS PREVENTION AND SAFETY MANAGER-POINT OF CARE SPECIALIST Work Phone: [facility] 04-04-2024 11:42-0500 Diastolic blood pressure 46 mm[Hg] Marlin Koch LOSS PREVENTION AND SAFETY MANAGER-POINT OF CARE SPECIALIST Work Phone: [facility] 04-04-2024 11:42-0500 Heart rate 64 /min Marlin Koch LOSS PREVENTION AND SAFETY MANAGER-POINT OF CARE SPECIALIST Work Phone: [facility] 04-04-2024 11:42-0500 Systolic blood pressure 131 mm[Hg] Marlin Koch LOSS PREVENTION AND SAFETY MANAGER-POINT OF CARE SPECIALIST Work Phone: [facility] 03-05-2024 11:51-0500 Body height 182.9 cm Marlin Koch LOSS PREVENTION AND SAFETY MANAGER-POINT OF CARE SPECIALIST Work Phone: [facility] 03-05-2024 11:51-0500 Body mass index (BMI) [Ratio] 23.46 kg/m2 Marlin Koch LOSS PREVENTION AND SAFETY MANAGER-POINT OF CARE SPECIALIST Work Phone: [facility] 03-05-2024 11:51-0500 Body weight 78.47 kg Marlin Koch LOSS PREVENTION AND SAFETY MANAGER-POINT OF CARE SPECIALIST Work Phone: [facility] 03-05-2024 11:51-0500 Diastolic blood pressure 52 mm[Hg] Marlin Koch LOSS PREVENTION AND SAFETY MANAGER-POINT OF CARE SPECIALIST Work Phone: [facility] 03-05-2024 11:51-0500 Systolic blood pressure 135 mm[Hg] Marlin Koch LOSS PREVENTION AND SAFETY MANAGER-POINT OF CARE SPECIALIST Work Phone: [facility] 02-15-2024 13:15-0500 Body height 182.9 cm Marisol Boyce NP Work Phone: [facility] 02-15-2024 13:15-0500 Body mass index (BMI) [Ratio] 23.57 kg/m2 Marisollaura Maganaholz SENSITOMETRIST Work Phone: [facility] 02-15-2024 13:15-0500 Body temperature 98.49 [degF] Marisol Medardohholz SENSITOMETRIST Work Phone: [facility] 02-15-2024 13:15-0500 Body weight 78.83 kg Marisol Medardohholz SENSITOMETRIST Work Phone: [facility] 02-15-2024 13:15-0500 Diastolic blood pressure 64 mm[Hg] Marisol Aichholz SENSITOMETRIST Work Phone: [facility] 02-15-2024 13:15-0500 Heart rate 51 /min Marisol Medardohholz SENSITOMETRIST Work Phone: [facility] 02-15-2024 13:15-0500 Respiratory rate 19 /min Marisol Medardohholz SENSITOMETRIST Work Phone: [facility] 02-15-2024 13:15-0500 SaO2% (BldA) [Mass fraction] 100 % Marisol Medardohholz SENSITOMETRIST Work Phone: [facility] 02-15-2024 13:15-0500 Systolic blood pressure 112 mm[Hg] Marisol Medardohholz SENSITOMETRIST Work Phone: [facility] 01-04-2024 09:05-0400 Body mass index (BMI) [Ratio] 23.41 kg/m2 Marisol Aichholz SENSITOMETRIST Work Phone: [facility] 01-04-2024 09:05-0400 Body temperature 98.1 [degF] Marisol Aichholz SENSITOMETRIST Work Phone: [facility] 01-04-2024 09:05-0400 Body weight 78.29 kg Marisol Medardohholz SENSITOMETRIST Work Phone: [facility] 01-04-2024 09:05-0400 Diastolic blood pressure 78 mm[Hg] Marisol Medardohholz SENSITOMETRIST Work Phone: [facility] 01-04-2024 09:05-0400 Heart rate 79 /min Marisol Aichholz SENSITOMETRIST Work Phone: [facility] 01-04-2024 09:05-0400 Respiratory rate 19 /min Marisol Aichholz SENSITOMETRIST Work Phone: [facility] 01-04-2024 09:05-0400 SaO2% (BldA) [Mass fraction] 97 % Marisol Aichholz SENSITOMETRIST Work Phone: [facility] 01-04-2024 09:05-0400 Systolic blood pressure 124 mm[Hg] Marisol Aichholz SENSITOMETRIST Work Phone: [facility] 11-22-2023 11:27-0400 Body height 182.9 cm Marisol Aichholz SENSITOMETRIST Work Phone: [facility] 11-22-2023 11:27-0400 Body mass index (BMI) [Ratio] 23.16 kg/m2 Marisol Aichholz SENSITOMETRIST Work Phone: [facility] 11-22-2023 11:27-0400 Body temperature 97.81 [degF] Marisol Aichholz SENSITOMETRIST Work Phone: [facility] 11-22-2023 11:27-0400 Body weight 77.47 kg Marisol Aichholz SENSITOMETRIST Work Phone: [facility] 11-22-2023 11:27-0400 Diastolic blood pressure 64 mm[Hg] Marisol Aichholz SENSITOMETRIST Work Phone: [facility] 11-22-2023 11:27-0400 Heart rate 56 /min Marisol Aichholz SENSITOMETRIST Work Phone: [facility] 11-22-2023 11:27-0400 Respiratory rate 18 /min Marisol Aichholz SENSITOMETRIST Work Phone: [facility] 11-22-2023 11:27-0400 SaO2% (BldA) [Mass fraction] 96 % Marisol Carli SENSITOMETRIST Work Phone: [facility] 11-22-2023 11:27-0400 Systolic blood pressure 98 mm[Hg] Marisol Carli SENSITOMETRIST Work Phone: [facility] 07-11-2023 13:56-0400 Body temperature 98.06 [degF] YAMILEX EUGENIO [facility] 07-11-2023 13:56-0400 Diastolic blood pressure 71 mm[Hg] YAMILEX EUGENIO [facility] 07-11-2023 13:56-0400 Heart rate 67 /min YAMILEX EUGENIO [facility] 07-11-2023 13:56-0400 Respiratory rate 16 /min YAMILEX EUGENIO [facility] 07-11-2023 13:56-0400 Systolic blood pressure 135 mm[Hg] YAMILEX EUGENIO [facility] 06-18-2022 09:44-0400 Blood Pressure Location Deja Lue [facility] 06-18-2022 09:44-0400 Diastolic blood pressure 67 mm[Hg] Deja Lue [facility] 06-18-2022 09:44-0400 Heart rate 87 /min Deja Lue [facility] 06-18-2022 09:44-0400 Systolic blood pressure 137 mm[Hg] Deja Lue [facility] Encounters Encounter Date Encounter Type Care Provider Facility Start: 10-24-2024 End: 10-25-2024 Refill Marisol Aichholz SENSITOMETRIST Work Phone: [facility] Comment on above: Mixed hyperlipidemia (Primary Dx) Start: 10-09-2024 End: 10-09-2024 ambulatory EHAB [facility] Start: 10-03-2024 End: 10-03-2024 Refill Marisol Aichholz SENSITOMETRIST Work Phone: [facility] Comment on above: PAD (peripheral christianne ry disease) (Primary Dx); Paroxysmal atrial fibrillation (HCC) Start: 09-26-2024 End: 09-26-2024 Bamboo flowsheet Marisol Aichholz SENSITOMETRIST Work Phone: [facility] Start: 09-26-2024 End: 09-26-2024 Bamboo flowsheet Marisol Aichholz SENSITOMETRIST Work Phone: [facility] Start: 09-26-2024 End: 09-26-2024 Telephone encounter Marisol Aichholz SENSITOMETRIST Work Phone: [facility] Start: 09-26-2024 End: 09-26-2024 Office outpatient visit 25 minutes Marisol Aichholz SENSITOMETRIST Work Phone: [facility] Comment on above: Dizziness and giddin ess (Primary Dx); Pulmonary hypertension, unspecified (HCC); Primary hypertension ; Riley's esophagus with dysplasia; Type 2 diabetes mellitus without complication, with long-term current use of insulin (HCC) Start: 09-26-2024 End: 09-26-2024 ambulatory MARISOL AICHHOLZ Not Available Start: 08-15-2024 End: 08-15-2024 Bamboo flowsheet Marisol Aichholz SENSITOMETRIST Work Phone: [facility] Start: 08-15-2024 End: 08-15-2024 Bamboo flowsheet Marisol Aichholz SENSITOMETRIST Work Phone: [facility] Start: 08-15-2024 End: 08-15-2024 Patient encounter procedure Marisol Aichholz SENSITOMETRIST Work Phone: [facility] Comment on above: Encounter for subseq uent annual wellness visit (AWV) in Medicare patient (Primary Dx); Centrilobular emphysema ([facility]/HCC); Paroxysmal atrial fibrillation (CMS/HCC); Bilateral carotid artery disease, unspecified type ([facility]/HCC); Primary hypertension ([facility]); Type 2 diabetes mellitus without complication, with long-term current use of insulin; Type 2 diabetes mellitus with other specified complication, with long-term current use of insulin; Mixed hyperlipidemia ([facility]); Dizziness and giddiness Start: 08-15-2024 End: 08-15-2024 ambulatory MARISOL AICHHOLZ Not Available Start: 08-10-2024 End: 08-10-2024 Refill Marisol Aichholz SENSITOMETRIST Work Phone: [facility] Comment on above: Type 2 diabetes maddie itus without complication, with long-term current use of insulin Start: 07-18-2024 End: 07-18-2024 ambulatory Deja Perez Facility:[facility] Start: 07-11-2024 End: 07-11-2024 Clinisync Result Encounter Marisol Aichholz SENSITOMETRIST Work Phone: [facility] External Department Unsolicited Start: 07-11-2024 End: 07-11-2024 Clinisync Result Encounter Marisol Aichholz SENSITOMETRIST Work Phone: [facility] External Department Unsolicited Start: 07-11-2024 End: 07-11-2024 Lab Drop off YAMILEX ARMSTRONG [facility] Start: 07-11-2024 End: 07-11-2024 ambulatory Fiona Beaver Facility:[facility] Start: 07-05-2024 End: 07-05-2024 Refill Marisol Aichholz SENSITOMETRIST Work Phone: [facility] Comment on above: Benign prostatic hyp erplasia with lower urinary tract symptoms, symptom details unspecified (Primary Dx) Start: 06-20-2024 End: 06-20-2024 Refill Marisol Aichholz SENSITOMETRIST Work Phone: [facility] Comment on above: Riley's esophagus with dysplasia (Primary Dx) Start: 05-15-2024 End: 05-15-2024 Bamboo flowsheet Marisol Aichholz SENSITOMETRIST Work Phone: [facility] Start: 05-15-2024 End: 05-15-2024 Bamboo flowsheet Marisol Aichholz SENSITOMETRIST Work Phone: [facility] Start: 05-15-2024 End: 05-15-2024 Office outpatient visit 25 minutes Marisol Aichholz SENSITOMETRIST Work Phone: [facility] Comment on above: Type 2 diabetes maddie itus without complication, with long-term current use of insulin (CMS/HCC) (Primary Dx); Centrilobular emphysema (CMS/HCC); Type 2 diabetes mellitus with other specified complication (CMS/HCC); Erectile dysfunction due to diseases classified elsewhere; Type 2 diabetes mellitus 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 (CMS/HCC); Paroxysmal atrial fibrillation (CMS/HCC); 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 (CMS/HCC); Primary hypertension (CMS/HCC); PAD (peripheral artery disease) (CMS/HCC); Iron deficiency anemia, unspecified iron deficiency anemia type; Mixed hyperlipidemia (CMS/HCC); Primary insomnia Start: 05-15-2024 End: 05-15-2024 ambulatory MARISOL AICHHOLZ Not Available Start: 05-13-2024 End: 05-13-2024 Refill Marisol Aichholz SENSITOMETRIST Work Phone: [facility] Comment on above: Type 2 diabetes maddie itus without complication, with long-term current use of insulin (CMS/HCC) Start: 04-18-2024 End: 04-18-2024 Telephone encounter Fiona Miguel CMA [facility] Start: 04-16-2024 End: 04-16-2024 Orders Only [facility] Mauricio [facility] Start: 04-11-2024 End: 04-11-2024 ambulatory Sabino Mauricio [facility] Work Phone: Start: 04-11-2024 End: 04-11-2024 Departed Referred Sabino Mauricio DO Work Phone: [facility] Start: 04-04-2024 End: 04-04-2024 Office outpatient visit 15 minutes Marlin Koch LOSS PREVENTION AND SAFETY MANAGER-POINT OF CARE SPECIALIST Work Phone: [facility] Comment on above: Encounter for colono scopy due to history of colonic polyp (Primary Dx); 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 Start: 04-04-2024 End: 04-04-2024 Refill Marisol Boyce NP Work Phone: [facility] Comment on above: Type 2 diabetes maddie itus without complication, with long-term current use of insulin ([facility]) (Primary Dx) Start: 03-29-2024 End: 03-29-2024 Telephone encounter Marisol Boyce NP Work Phone: [facility] Start: 03-26-2024 End: 03-26-2024 ambulatory [facility] Start: 03-22-2024 End: 03-22-2024 Clinical Support Pm 30 Cardiac Rehab [facility] Comment on above: Arrived Start: 03-19-2024 End: 03-19-2024 Clinical Support Pmh 30 Cardiac Rehab [facility] Start: 03-15-2024 End: 03-15-2024 ambulatory [facility] Start: 03-14-2024 End: 03-14-2024 ambulatory EHAB [facility] Start: 03-13-2024 End: 03-13-2024 Clinisync Result Encounter Marisol Boyce NP Work Phone: [facility] External Department Unsolicited Start: 03-13-2024 End: 03-13-2024 Clinisync Result Encounter Marisol Boyce SENSITOMETRIST Work Phone: [facility] External Department Unsolicited Start: 03-12-2024 End: 03-12-2024 ambulatory [address] [facility] Start: 03-08-2024 End: 03-08-2024 ambulatory AB [facility] Start: 03-07-2024 End: 03-07-2024 ambulatory [address] [facility] Start: 03-05-2024 End: 03-05-2024 Office outpatient new 30 minutes Marlin JHAPOINT OF CARE SPECIALIST Work Phone: [facility] Comment on above: Encounter for colono scopy due to history of colonic polyp (Primary Dx); 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 Start: 03-05-2024 End: 03-05-2024 ambulatory [facility] Start: 02-22-2024 End: 02-22-2024 ambulatory AB [facility] Start: 02-20-2024 End: 02-20-2024 ambulatory AB [facility] Start: 02-16-2024 End: 02-16-2024 ambulatory AB [facility] Start: 02-15-2024 End: 02-15-2024 Bamboo flowsheet Marisol Boyce SENSITOMETRIST Work Phone: [facility] Start: 02-15-2024 End: 02-15-2024 Bamboo flowsheet Marisol Boyce SENSITOMETRIST Work Phone: [facility] Start: 02-15-2024 End: 02-15-2024 Office outpatient visit 25 minutes Marisol Boyce SENSITOMETRIST Work Phone: [facility] Comment on above: Type 2 diabetes maddie itus without complication, with long-term current use of insulin ([facility]/HCC) (Primary Dx); Primary hypertension (CMS/HCC); PAD (peripheral artery disease) (CMS/HCC); 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 (CMS/HCC); Riley's esophagus with dysplasia; Erectile dysfunction due to diseases classified elsewhere; Benign prostatic hyperplasia with lower urinary tract symptoms, symptom details unspecified; Colon cancer screening; Tubulovillous adenoma of colon; Lumbosacral spondylosis without myelopathy Start: 02-15-2024 End: 02-15-2024 ambulatory MARISOL BOYCE Not Available Start: 02-15-2024 End: 02-15-2024 ambulatory EHAB [facility] Start: 02-13-2024 End: 02-13-2024 ambulatory EHAB [facility] Start: 02-09-2024 End: 02-09-2024 ambulatory EHAB [facility] Start: 02-08-2024 End: 02-08-2024 ambulatory EHAB [facility] Start: 02-06-2024 End: 02-06-2024 ambulatory EHAB [facility] Start: 02-02-2024 End: 02-02-2024 Telephone encounter Marisol Boyce SENSITOMETRIST Work Phone: [facility] Start: 02-02-2024 End: 02-02-2024 ambulatory EHAB [facility] Start: 02-01-2024 End: 02-01-2024 ambulatory EHAB [facility] Start: 01-30-2024 End: 01-30-2024 ambulatory EHAB [facility] Start: 01-26-2024 End: 01-26-2024 ambulatory EHAB [facility] Start: 01-25-2024 End: 01-25-2024 ambulatory EHAB [facility] Start: 01-23-2024 End: 01-23-2024 ambulatory EHAB [facility] Start: 01-19-2024 End: 01-19-2024 ambulatory EHAB [facility] Start: 01-18-2024 End: 01-18-2024 ambulatory EHAB [facility] Start: 01-16-2024 End: 01-16-2024 ambulatory AB [facility] Start: 01-12-2024 End: 01-12-2024 ambulatory AB [facility] Comment on above: Arrived Start: 01-11-2024 End: 01-11-2024 [facility] Start: 01-11-2024 End: 01-11-2024 ambulatory AB [facility] Start: 01-09-2024 End: 01-09-2024 ambulatory [address] [facility] Start: 01-05-2024 End: 01-05-2024 ambulatory AB [facility] Start: 01-04-2024 End: 01-04-2024 Bamboo flowsheet Marisol Boyce SENSITOMETRIST Work Phone: [facility] Start: 01-04-2024 End: 01-04-2024 Bamboo flowsheet Marisol Boyce SENSITOMETRIST Work Phone: [facility] Start: 01-04-2024 End: 01-04-2024 ambulatory AB [facility] Start: 01-04-2024 End: 01-04-2024 Office outpatient visit 25 minutes Marisol Boyce SENSITOMETRIST Work Phone: [facility] Comment on above: Type 2 diabetes maddie itus without complication, with long-term current use of insulin (CMS/HCC) (Primary Dx); Chronic thoracic back pain, unspecified back pain laterality; Primary hypertension (CMS/HCC) Start: 01-04-2024 End: 01-04-2024 ambulatory MARISOL BOYCE Not Available Start: 01-02-2024 End: 01-02-2024 ambulatory EHAB [facility] Start: 12-29-2023 End: 12-29-2023 ambulatory [address] [facility] Start: 12-28-2023 End: 12-28-2023 ambulatory AB [facility] Start: 12-26-2023 End: 12-26-2023 ambulatory AB [facility] Start: 12-22-2023 End: 12-22-2023 ambulatory AB [facility] Start: 12-21-2023 End: 12-21-2023 Refill Marisol Boyce NP Work Phone: [facility] Comment on above: Benign prostatic hyp erplasia with lower urinary tract symptoms, symptom details unspecified (Primary Dx) Start: 12-21-2023 End: 12-21-2023 ambulatory [facility] Start: 12-19-2023 End: 12-19-2023 ambulatory AB [facility] Start: 12-16-2023 End: 12-16-2023 ambulatory [facility] Start: 12-07-2023 End: 12-07-2023 ambulatory [facility] Start: 11-29-2023 End: 11-29-2023 External Result Encounter Marisol Boyce NP Work Phone: [facility] External Department Unsolicited Start: 11-29-2023 End: 11-29-2023 External Result Encounter Marisol Boyce NP Work Phone: [facility] External Department Unsolicited Start: 11-29-2023 End: 11-29-2023 [facility] Start: 11-29-2023 End: 11-29-2023 ambulatory AB [facility] Start: 11-22-2023 End: 11-22-2023 Bamboo flowsheet Marisol Boyce NP Work Phone: [facility] Start: 11-22-2023 End: 11-22-2023 Bamboo flowsheet Marisol Boyce SENSITOMETRIST Work Phone: [facility] Start: 11-22-2023 End: 11-22-2023 Office outpatient visit 15 minutes Marisol Boyce SENSITOMETRIST Work Phone: [facility] Comment on above: Coronary artery dise ase involving snoqualmie coronary artery of snoqualmie heart without angina pectoris (CMS/HCC) (Primary Dx); Other thrombophilia (CMS/HCC); Paroxysmal atrial fibrillation (CMS/HCC); Nonrheumatic mitral valve regurgitation; Primary hypertension (CMS/HCC); 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) Start: 11-22-2023 End: 11-22-2023 ambulatory MARISOL BOYCE Not Available Start: 10-11-2023 End: 10-11-2023 ambulatory [facility] Start: 10-11-2023 End: 10-11-2023 ambulatory MARISOL CARLI Not Available Start: 07-11-2023 End: 07-11-2023 Patient encounter procedure YAMILEX ARMSTRONG [facility] Start: 07-06-2023 End: 07-06-2023 ambulatory [facility] Emmanuel [facility] Start: 06-07-2023 Patient encounter procedure Marisol Boyce SENSITOMETRIST Work Phone: [facility] Start: 05-05-2023 Refill Marisol Boyce SENSITOMETRIST Work Phone: [facility] Start: 05-04-2023 External Result Encounter Marisol Boyce SENSITOMETRIST Work Phone: [facility] External Department Unsolicited Start: 05-04-2023 External Result Encounter Marisol Boyce SENSITOMETRIST Work Phone: [facility] External Department Unsolicited Start: 05-04-2023 End: 05-04-2023 ambulatory [facility] Start: 06-18-2022 End: 06-18-2022 Patient encounter procedure Deja StatonJose Juan Jaegeremmanuel [facility] Start: 06-11-2022 End: 06-12-2022 ambulatory POINT OF CARE SPECIALIST MARISOL BOYCE Facility:[facility] Start: 01-06-2022 End: 01-07-2022 ambulatory POINT OF CARE SPECIALIST MARISOL CARLI Facility:[facility] Start: 01-05-2022 End: 01-06-2022 ambulatory POINT OF CARE SPECIALIST MARISOL BOYCE Facility:[facility] Start: 10-14-2021 End: 10-15-2021 ambulatory DWAIN RAY Facility:[facility] Start: 06-18-2021 End: 06-18-2021 Patient encounter procedure Carlitos MAYA [facility] Procedures Date Procedure Procedure Detail Performing Clinician Start: 07-11-2024 [facility] CBC W/ AUTO DIFF L abhinav Carli SENSITOMETRIST Work Phone: Start: 04-11-2024 Colonoscopy Sabino eller DO Work Phone: Start: 04-04-2024 Follow-up visit Follow-up MARLIN KOCH Start: 03-13-2024 MLR HEMOGLOBIN A1C Marisol Carli SENSITOMETRIST Work Phone: Start: 11-29-2023 Basic metabolic pane l calcium total Marisol Carli SENSITOMETRIST Work Phone: Start: 05-04-2023 Comprehensive metabo lic panel Marisol Carli SENSITOMETRIST Work Phone: Start: 05-04-2023 Urnls dip stick/tabl et rgnt non-auto w/o micrscp Marisol Carli SENSITOMETRIST Work Phone: Start: 02-26-2020 Iliofemoral vein anita nt (physical object) Carlitos MAYA Start: 08-03-2019 Injection of sacroil iac joint Carlitos MAYA Start: 10-26-2018 Colonoscopy Marisol mann SENSITOMETRIST Work Phone: Cataract (disorder) Carlitos HAMM Cholecystectomy Carlitos MAYA Placement of stent i n cardiac conduit Carlitos MAYA Prosthetic arthropla sty of shoulder Carlitos MAYA Plan of Treatment Date Care Activity Detail Author Start: 04-11-2029 Screening for malignant neoplasm of colon [facility] Start: 04-11-2027 Screening for malignant neoplasm of colon Colonoscopy [facility] Start: 09-26-2026 Glaucoma screening Diabetes: Retinopathy Screening [facility] Start: 08-21-2025 End: 08-21-2025 Patient encounter procedure 08/21/2025 10:00 AM EDT Office Visit [facility] [address] [place] [address] Marisol Boyce, CATALINA [address] [place] [address] [facility] Start: 08-15-2025 Medicare Annual Wellness (AWV) Medicare Annual Wellness (AWV) [facility] Start: 07-11-2025 Urine screening for protein Diabetes: Urine Protein Screening [facility] Start: 04-04-2025 Tobacco Screening Tobacco Screening [facility] Start: 03-05-2025 Tobacco Screening Tobacco Screening [facility] Start: 11-29-2024 End: 11-29-2024 Patient encounter procedure [facility] Start: 11-26-2024 Influenza vaccination Influenza Vaccine (#1) [facility] Start: 10-10-2024 Hemoglobin A1c measurement Diabetes: Hemoglobin A1C [facility] Start: 10-06-2024 Urine screening for protein Diabetes: Urine Protein Screening [facility] Start: 09-26-2024 End: 09-26-2024 Patient encounter procedure [facility] Comment on above: Dizziness and giddiness (Primary Dx); Pulmonary hypertension, unspecified (HCC); Primary hypertension Start: 08-15-2024 End: 08-15-2024 Patient encounter procedure [facility] Comment on above: Encounter for subsequent annual wellness visit (AWV) in Medicare patient (Primary Dx); CORNELIA (obstructive sleep apnea); Centrilobular emphysema (CMS/HCC); Paroxysmal atrial fibrillation (CMS/HCC); Bilateral carotid artery disease, unspecified type ([facility]/HCC); Primary hypertension ([facility]/HCC); Type 2 diabetes mellitus without complication, with long-term current use of insulin; Type 2 diabetes mellitus with other specified complication, with long-term current use of insulin; Mixed hyperlipidemia (CMS/HCC) Start: 06-12-2024 End: 05-15-2025 CBC W Auto Differential panel - Blood CBC and differential Lab Routine Paroxysmal atrial fibrillation (CMS/HCC) Iron deficiency anemia, unspecified iron deficiency anemia type Expected: 06/12/2024 (Approximate), Expires: 05/15/2025 [place] [facility] Work Phone: Comment on above: Expected: 06/12/2024 (Approximate), Expi res: 05/15/2025 Start: 06-12-2024 End: 05-15-2025 Comprehensive metabolic 2000 panel - Serum or Plasma Comprehensive metabolic panel Lab Routine Type 2 diabetes mellitus with other specified complication ([facility]/HCC) 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 ([facility]/HCC) Primary hypertension ([facility]/HCC) Mixed hyperlipidemia ([facility]/HCC) Expected: 06/12/2024 (Approximate), Expires: 05/15/2025 [facility] Comment on above: Expected: 06/12/2024 (Approximate), Expi res: 05/15/2025 Start: 06-12-2024 End: 05-15-2025 Hemoglobin A1c/Hemoglobin.total in Blood Hemoglobin A1c Lab Routine Type 2 diabetes mellitus without complication, with long-term current use of insulin ([facility]/HCC) Expected: 06/12/2024 (Approximate), Expires: 05/15/2025 [facility] Comment on above: Expected: 06/12/2024 (Approximate), Expi res: 05/15/2025 Start: 06-12-2024 End: 05-15-2025 Iron and Iron binding capacity panel - Serum or Plasma Iron level Lab Routine Iron deficiency anemia, unspecified iron deficiency anemia type Expected: 06/12/2024 (Approximate), Expires: 05/15/2025 [facility] Comment on above: Expected: 06/12/2024 (Approximate), Expi res: 05/15/2025 Start: 06-12-2024 End: 05-15-2025 Lipid 1996 panel - Serum or Plasma Lipid panel Lab Routine Mixed hyperlipidemia (CMS/HCC) Expected: 06/12/2024 (Approximate), Expires: 05/15/2025 [facility] Comment on above: Expected: 06/12/2024 (Approximate), Expi res: 05/15/2025 Start: 06-12-2024 End: 05-15-2025 Microalbumin/Creatinine panel in random Urine Microalbumin / creatinine, urine ratio Lab Routine Primary hypertension (CMS/HCC) Type 2 diabetes mellitus without complication, with long-term current use of insulin (CMS/HCC) Expected: 06/12/2024 (Approximate), Expires: 05/15/2025 [facility] Comment on above: Expected: 06/12/2024 (Approximate), Expi res: 05/15/2025 Start: 06-12-2024 End: 05-15-2025 Urinalysis complete panel - Urine Urinalysis with refl ex microscopic (clean catch) Lab Routine Primary hypertension (CMS/HCC) Type 2 diabetes mellitus without complication, with long-term current use of insulin (CMS/HCC) Expected: 06/12/2024 (Approximate), Expires: 05/15/2025 [facility] Comment on above: Expected: 06/12/2024 (Approximate), Expi res: 05/15/2025 Start: 06-11-2024 Hemoglobin A1c measurement Diabetes: Hemoglobin A1C [facility] Start: 06-06-2024 Medicare Annual Wellness (AWV) Medicare Annual Wellness (AWV) [facility] Start: 05-15-2024 End: 05-15-2024 Patient encounter procedure [facility] Comment on above: 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 (CMS/HCC) (Primary Dx); Centrilobular emphysema (CMS/HCC); Type 2 diabetes mellitus with other specified complication ([facility]/HCC); Erectile dysfunction due to diseases classified elsewhere; Type 2 diabetes mellitus 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 ([facility]/HCC); Paroxysmal atrial fibrillation ([facility]/HCC); Primary hypertension ([facility]/HCC); PAD (peripheral artery disease) ([facility]/HCC); Type 2 diabetes mellitus without complication, with long-term current use of insulin ([facility]/HCC); Iron deficiency anemia, unspecified iron deficiency anemia type; Mixed hyperlipidemia ([facility]/HCC) Start: 05-04-2024 Urine screening for protein Diabetes: Urine Protein Screening [facility] Start: 04-03-2024 End: 04-03-2024 Patient encounter procedure 04/03/2024 10:30 AM EST Office Visit [facility] General Surgery [address] [place] [address] Marlin Koch APRN-POINT OF CARE SPECIALIST [address] [place] [address] [facility] General Surgery Start: 03-26-2024 End: 03-26-2024 Clinical Support 03/26/2024 10:30 AM EST Clinical Support [facility] [address] [place] [address] [facility] Re[facility] Start: 03-22-2024 End: 03-22-2024 Clinical Support 03/22/2024 10:30 AM EST Clinical Support [facility] [address] [place] [address] [facility] Start: 03-12-2024 End: 03-12-2024 Clinical Support 03/12/2024 10:30 AM EST Clinical Support [facility] [address] [place] [address] [facility] Start: 03-08-2024 End: 03-08-2024 Clinical Support 03/08/2024 10:30 AM EST Clinical Support [facility] [address] [place] [address] [facility] Start: 03-07-2024 End: 03-07-2024 Clinical Support 03/07/2024 10:30 AM EST Clinical Support [facility] [address] [place] [address] [facility] Start: 03-05-2024 End: 03-05-2024 Patient encounter procedure 03/05/2024 11:45 AM EST Office Visit [facility] General Surgery [address] [place] [address] Marlin Koch, LOSS PREVENTION AND SAFETY MANAGER-POINT OF CARE SPECIALIST [address] [place] [address] [facility] General Surgery Start: 03-05-2024 End: 03-05-2024 Clinical Support 03/05/2024 10:30 AM EST Clinical Support [facility] [address] [place] [address] [facility] Start: 03-01-2024 End: 03-01-2024 Clinical Support 03/01/2024 10:30 AM EST Clinical Support [facility] [address] [place] [address] [facility] Start: 02-29-2024 End: 02-14-2025 Hemoglobin A1c/Hemoglobin.total in Blood Hemoglobin A1c Lab Routine Type 2 diabetes mellitus without complication, with long-term current use of insulin ([facility]) Expected: 02/29/2024 (Approximate), Expires: 02/14/2025 [facility] Work Phone: Comment on above: Expected: 02/29/2024 (Approximate), Expi res: 02/14/2025 Start: 02-29-2024 End: 02-29-2024 Clinical Support 02/29/2024 10:30 AM EST Clinical Support [facility] [address] [place] [address] [facility] Start: 02-28-2024 Hemoglobin A1c measurement Diabetes: Hemoglobin A1C [facility] Start: 02-27-2024 End: 02-27-2024 Clinical Support 02/27/2024 10:30 AM EST Clinical Support [facility] [address] [place] [address] [facility] Start: 02-22-2024 End: 02-22-2024 Clinical Support 02/22/2024 10:30 AM EST Clinical Support [facility] [address] [place] [address] [facility] Start: 02-20-2024 End: 02-20-2024 Clinical Support 02/20/2024 10:30 AM EST Clinical Support [facility] [address] [place] [address] [facility] Start: 02-16-2024 End: 02-16-2024 Clinical Support 02/16/2024 10:30 AM EST Clinical Support [facility] [address] [place] [address] [facility] Start: 02-15-2024 End: 02-15-2024 Patient encounter procedure [facility] Comment on above: Primary hypertension (CMS/HCC) (Primary Dx); PAD (peripheral artery disease) (CMS/HCC); 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 (CMS/HCC); Riley's esophagus with dysplasia; Erectile dysfunction due to diseases classified elsewhere; Benign prostatic hyperplasia with lower urinary tract symptoms, symptom details unspecified; Type 2 diabetes mellitus without complication, with long-term current use of insulin (CMS/HCC); Colon cancer screening Start: 02-15-2024 End: 02-15-2024 Clinical Support 02/15/2024 10:30 AM EST Clinical Support [facility] [address] [place] [address] [facility] Start: 02-13-2024 End: 02-13-2024 Clinical Support 02/13/2024 10:30 AM EST Clinical Support [facility] [address] [place] [address] [facility] Start: 02-09-2024 End: 02-09-2024 Clinical Support 02/09/2024 10:30 AM EST Clinical Support [facility] [address] [place] [address] [facility] Start: 02-08-2024 End: 02-08-2024 Clinical Support 02/08/2024 10:30 AM EST Clinical Support [facility] [address] [place] [address] [facility] Start: 02-06-2024 End: 02-06-2024 Clinical Support 02/06/2024 10:30 AM EST Clinical Support [facility] [address] [place] [address] [facility] Start: 02-02-2024 End: 02-02-2024 Clinical Support 02/02/2024 10:30 AM EST Clinical Support [facility] [address] [place] [address] [facility] Start: 02-01-2024 End: 02-01-2024 Clinical Support 02/01/2024 10:30 AM EST Clinical Support [facility] [address] [place] [address] [facility] Start: 01-30-2024 End: 01-30-2024 Clinical Support 01/30/2024 10:30 AM EST Clinical Support [facility] [address] [place] [address] [facility] Start: 01-26-2024 End: 01-26-2024 Clinical Support 01/26/2024 10:30 AM EDT Clinical Support [facility] [address] [place] [address] [facility] Start: 01-25-2024 End: 01-25-2024 Clinical Support 01/25/2024 10:30 AM EDT Clinical Support [facility] [address] [place] [address] [facility] Start: 01-23-2024 End: 01-23-2024 Clinical Support 01/23/2024 10:30 AM EDT Clinical Support [facility] [address] [place] [address] [facility] Start: 01-19-2024 End: 01-19-2024 Clinical Support 01/19/2024 10:30 AM EDT Clinical Support [facility] [address] [place] [address] [facility] Start: 01-18-2024 End: 01-18-2024 Clinical Support 01/18/2024 10:30 AM EDT Clinical Support [facility] [address] [facility] [address] [facility] Start: 01-16-2024 End: 01-16-2024 Clinical Support 01/16/2024 10:30 AM EDT Clinical Support [facility] [address] [place] [address] [facility] Start: 01-12-2024 End: 01-12-2024 Clinical Support 01/12/2024 10:30 AM EDT Clinical Support [facility] [address] [place] [address] [facility] Start: 01-11-2024 End: 01-11-2024 Clinical Support 01/11/2024 10:30 AM EDT Clinical Support [facility] [address] [place] [address] [facility] Start: 01-09-2024 End: 01-09-2024 Clinical Support 01/09/2024 10:30 AM EDT Clinical Support [facility] [address] [place] [address] [facility] Start: 01-05-2024 End: 01-05-2024 Clinical Support 01/05/2024 10:30 AM EDT Clinical Support [facility] [address] [place] [address] [facility] Start: 01-04-2024 End: 01-03-2025 XR Thoracic spine 3 Views XR thoracic spine 3 views Imaging Routine Chronic thoracic back pain, unspecified back pain laterality Expected: 01/04/2024, Expires: 01/03/2025 [facility] Work Phone: Comment on above: Expected: 01/04/2024, Expires: Start: 01-04-2024 End: 01-04-2024 Patient encounter procedure [facility] Comment on above: Arrived Start: 01-03-2024 Hemoglobin A1c measurement Diabetes: Hemoglobin A1C [facility] Start: 01-02-2024 End: 01-02-2024 Clinical Support 01/02/2024 10:30 AM EDT Clinical Support [facility] [address] [place] [address] [facility] Start: 12-29-2023 End: 12-29-2023 Clinical Support 12/29/2023 10:30 AM EDT Clinical Support [facility] [address] [place] [address] [facility] Start: 12-28-2023 End: 12-28-2023 Clinical Support 12/28/2023 10:30 AM EDT Clinical Support [facility] [address] [place] [address] [facility] Start: 12-26-2023 End: 12-26-2023 Clinical Support 12/26/2023 10:30 AM EDT Clinical Support [facility] [address] [place] [address] [facility] Start: 12-22-2023 End: 12-22-2023 Clinical Support 12/22/2023 10:30 AM EDT Clinical Support [facility] [address] [place] [address] [facility] Start: 12-21-2023 End: 12-21-2023 Clinical Support 12/21/2023 10:30 AM EDT Clinical Support [facility] [address] [place] [address] [facility] Start: 11-28-2023 Glaucoma screening Diabetes: Retinopathy Screening [facility] Comment on above: Postponed from 1956 (Other Patient Reasons) Start: 11-27-2023 COVID-19 Vaccine ( season) COVID-19 Vaccine () [facility] Start: 11-27-2023 COVID-19 Vaccine () COVID-19 Vaccine () [facility] Start: 11-27-2023 Influenza vaccination [facility] Start: 11-22-2023 End: 11-22-2023 Patient encounter procedure 11/22/2023 11:20 AM EDT Office Visit [facility] [address] [place] [address] Marisol Boyce, CATALINA [address] [place] [address] Other thrombophilia (CMS/HCC) [facility] Comment on above: Other thrombophilia (CMS/HCC) Start: 10-27-2023 Screening for malignant neoplasm of colon [facility] Start: 08-02-2023 Hemoglobin A1c measurement Diabetes: Hemoglobin A1C [facility] Start: 07-23-2023 Adult BMI Screening Adult BMI Screening [facility] Start: 07-23-2023 Tobacco Screening Tobacco Screening [facility] Start: 06-24-2023 Screening for malignant neoplasm of colon FOBT [facility] Start: 06-12-2023 Urine screening for protein Diabetes: Urine Protein Screening [facility] Start: 06-07-2023 End: 06-07-2023 Patient encounter procedure 06/07/2023 10:30 AM EDT Office Visit [facility] [address] [place] [address] Marisol Boyce, SENSITOMETRIST [address] [place] [place] [address] [facility] Start: 03-14-2023 Hemoglobin A1c measurement Diabetes: Hemoglobin A1C [facility] Start: 10-26-2021 Screening for malignant neoplasm of colon Colonoscopy [facility] Start: 05-07-2014 Administration of varicella zoster vaccine Zoster (Shingles) Vaccine (2 of 3) [facility] Start: 09-14-2011 Abdominal aortic aneurysm screening Abdominal Aortic Aneurysm (AAA) Screen [facility] Start: 09-14-2011 Fall Risk Screening Fall Risk Screening [facility] Start: 1965 DTaP,Tdap and Td Vaccines (1 - Tdap) DTaP,Tdap and Td Vaccines (1 - Tdap) [facility] Start: 1958 Depression Screening Depression Screening [facility] Start: 1956 Glaucoma screening Diabetes: Retinopathy Screening [facility] Start: 1946 Medicare Annual Wellness (AWV) Medicare Annual Wellness (AWV) [facility] Start: 1946 Medicare Annual Wellness Visit Medicare Annual Wellness Visit [facility] Start: 1946 Screening for malignant neoplasm of colon [facility] Start: 1946 Tobacco Counseling Tobacco Counseling [facility] Cardiopulmonary rehabilitation C ardi[facility]ulmonary rehabilitation Cardiac Services [...] dysplasia 1 Occurrences starting 03/05/2024 until 03/05/2025 [facility] Comment on above: 1 Occurrences starting 03/05/2024 until 03/05/2025 Immunizations Immunization Date Immunization Notes Care Provider Roma espinosa 02-09-2024 influenza, high dose seasonal, preservative-free Marisol Aichholz S[employer]ITOM[employer]RIST Work Phone: [facility] 02-09-2024 influenza virus vacc ine, unspecified formulation [facility] 02-15-2023 influenza virus vacc ine, unspecified formulation Marisol Aichholz S[employer]ITOMETRIST Work Phone: [facility] 02-15-2023 pneumococcal polysaccharide vaccine, 23 valent Marisol Aichholz S[employer]ITOMETRIST Work Phone: [facility] 01-31-2023 influenza virus vacc ine, unspecified formulation YAMILEX ARMSTRONG [facility] [place] 01-31-2023 Influenza, High-dose Seasonal, Quadrivalent, Preservative Free Marisol Aichholz SENSITOMETRIST Work Phone: [facility] 03-11-2022 SARS-CoV-2 (COVID-19 ) [id number] Deja Luemmanuel [facility] 02-12-2022 influenza virus vacc ine, unspecified formulation Deja Lue [facility] [place] 02-12-2022 Influenza, High-dose Seasonal, Quadrivalent, Preservative Free Marisol Aichholz [employer] Work Phone: [facility] 10-17-2021 influenza virus vacc ine, unspecified formulation Marisol Aichholz S[employer]ITOMETRIST Work Phone: [facility] 10-17-2021 pneumococcal polysaccharide vaccine, 23 valent Marisol Aichholz S[employer]ITOMETRIST Work Phone: [facility] 08-06-2021 SARS-CoV-2 mRNA (gpnznawoftb-rocz-vtaulo e) vaccine Deja Perez [facility] [place] 02-02-2021 influenza virus vacc ine, unspecified formulation Deja Perez [facility] [place] 02-02-2021 Influenza, High-dose Seasonal, Quadrivalent, Preservative Free Marisol Aichholz [employer]RIST Work Phone: [facility] 01-05-2021 SARS-CoV-2 (COVID-19 ) mRNA BNT-162b2 vax Deja Perez [facility] [place] 05-29-2020 SARS-CoV-2 (COVID-19 ) [id number] vaccine Carlitos RICE [facility] [place] 05-21-2020 SARS-CoV-2 (COVID-19 ) mRNA BNT-162b2 vax Deja Lue [facility] Comment on above: Result Comment: 2022: [id number] 05-08-2020 SARS-CoV-2 (COVID-19 ) mRNA-1273 vaccine Carlitos MAYA [facility] [place] 05-01-2020 SARS-CoV-2 (COVID-19 ) mRNA BNT-162b2 vax Deja Lue [facility] [place] Comment on above: Result Comment: 2022: [id number] 11-30-2019 influenza virus vacc ine, unspecified formulation Deja Lue [facility] [place] 11-30-2019 Influenza, High-dose Seasonal, Quadrivalent, Preservative Free Marisol Aichholz [employer] Work Phone: [facility] 11-30-2019 pneumococcal conjuga te vaccine, 13 valent Deja Lue [facility] [place] 11-27-2019 influenza virus vacc ine, unspecified formulation Carlitos ZULMA [facility] [place] 12-29-2018 influenza virus vacc ine, unspecified formulation Deja Lue [facility] [place] 12-29-2018 Seasonal trivalent influenza vaccine, adjuvanted, preservative free Marisol Aichholz [employer] Work Phone: [facility] 01-28-2018 influenza virus vacc ine, unspecified formulation Deja Lue [facility] 01-28-2018 influenza, high dose seasonal, preservative-free Marisol Aichholz S[employer] Work Phone: [facility] 02-11-2017 influenza virus vacc ine, unspecified formulation Deja Lue [facility] 02-11-2017 Seasonal trivalent influenza vaccine, adjuvanted, preservative free Marisol Aichholz [employer] Work Phone: [facility] 01-17-2015 influenza virus vacc ine, unspecified formulation Deja Lue [facility] [place] 01-17-2015 influenza, high dose seasonal, preservative-free Marisol Aichholz S[employer] Work Phone: [facility] 12-10-2014 pneumococcal polysaccharide vaccine, 23 valent Deja Lue [facility] [place] 03-12-2014 influenza virus vacc ine, unspecified formulation Deja Lue [facility] [place] 03-12-2014 influenza, seasonal, injectable Marisol Aichholz [employer] Work Phone: [facility] 03-12-2014 zoster vaccine, live Deja L ue [facility] [place] 03-12-2014 zoster vaccine, unspecified formulation [facility] 01-10-2013 influenza virus vacc ine, unspecified formulation Deja Lue [facility] 01-10-2013 influenza, seasonal, injectable Marisol Aichholz S[employer] Work Phone: [facility] Payers Date Payer Category Payer Self-pay 2021 Private Health Insurance [employer] [id number] 2018 [facility] Member Subscriber Plan / Payer (Effective 2018-Present) Name: Kimmy Mcarthur Relation to Subscriber: Self Name: Kimmy Mcarthur Payer ID: Not on file Type: Not on file Address: [place] [id number] 2018 Unknown [id number] 2012 Medicare [id number] 1959 Medicare [id number] 1959 Unknown [id number] 1946 Unknown [id number]. 593 1946 Unknown [id number]. 593 1946 Unknown [id number] [id number]. 59 1946 Unknown [id number] .[id number]. 593 1946 Unknown [id number] [id number]. 593 1946 Unknown [id number]. 1285 1946 Unknown [id number] 2.16.840.1.185425.3.579.2. 1285 1946 Unknown [id number] [id number]. 1285 1946 Unknown [id number] 2.16.840.1.566239.3.579.2. 1285 1946 Unknown [id number] 2.16.840.1.504535.3.579.2. 1285 1946 Unknown [id number] 2.840.1.352631.3.579.2. 1285 1945 Unknown [id number] 2.840.1.608965.3.579.2. 1285 1946 Unknown [id number] 2.16840.1.525463.3.579.2. 1285 1946 Unknown [id number] 2.840.1.369789.3.579.2. 1285 1946 Unknown [id number] 2.16.840.1.530351.3.579.2. 1285 1946 Unknown [id number] 2.16840.1.092076.3.579.2. 1285 1946 Unknown [id number] 2.16.840.1.386307.3.579.2. 1285 1946 Unknown [id number] 2.16840.1.589520.3.579.2. 1285 1946 Unknown [id number] 2.16.840.1.619716.3.579.2. 1285 1946 Unknown [id number] 2.16.840.1.832079.3.579.2. 1285 1946 Unknown [id number] 2.16.840.1.262112.3.579.2. 1285 1946 Unknown [id number] 2.16.840.1.018828.3.579.2. 1285 1946 Unknown [id number] 2.16.840.1.018532.3.579.2. 1285 1946 Unknown [id number] 2.16840.1.752559.3.579.2. 1285 1946 Unknown [id number] 2.16840.1.893286.3.579.2. 1285 1946 Unknown [id number] 2.840.1.517713.3.579.2. 1285 1946 Unknown [id number] 2.840.1.884111.3.579.2. 1285 1946 Unknown [id number] 2.840.1.628178.3.579.2. 1285 1946 Unknown [id number] 2.840.1.985165.3.579.2. 1285 1946 Unknown [id number] 2.840.1.779629.3.579.2. 1285 1946 Unknown [id number] 2.840.1.034864.3.579.2. 1285 1946 Unknown [id number] 2.840.1.297117.3.579.2. 1285 1946 Unknown [id number] 2.840.1.141010.3.579.2. 1285 1946 Unknown [id number] 2.16840.1.961787.3.579.2. 1285 1946 Unknown [id number] 2.16840.1.591566.3.579.2. 1285 1946 Unknown [id number] 2.16840.1.594132.3.579.2. 1285 1946 Unknown [id number] 2.16.840.1.350420.3.579.2. 1285 1946 Unknown [id number] 2.16.840.1.106414.3.579.2. 1285 1946 Unknown [id number] 2.16.840.1.729564.3.579.2. 1285 1946 Unknown [id number] 2.16.840.1.676340.3.579.2. 1285 1946 Unknown [id number] 2..840.1.013284.3.579.2. 1285 1946 Unknown [id number] 2.840.1.837177.3.579.2. 1285 1946 Unknown [id number] 2.840.1.453493.3.579.2. 1285 1946 Unknown [id number] 2.840.1.280050.3.579.2. 1285 1946 Unknown [id number] 2.840.1.933169.3.579.2. 1285 1946 Unknown [id number] 2.840.1.778038.3.579.2. 1285 1946 Unknown [id number] 2.840.1.716412.3.579.2. 1285 1946 Unknown [id number] 2.16.840.1.093907.3.579.2. 1285 1946 Unknown [id number] 2.16.840.1.934234.3.579.2. 1285 1946 Unknown [id number] 2.16.840.1.476418.3.579.2. 1285 1946 Unknown [id number] 2.16.840.1.451880.3.579.2. 727 1946 Unknown [id number] 2.16.840.1.530692.3.579.2. 727 1946 Unknown [id number] 2.16.840.1.871904.3.579.2. 727 1946 Unknown [id number] 2.16.840.1.287129.3.579.2. 727 1946 Unknown [id number] 2.16.840.1.932965.3.579.2. 1259 1946 Unknown [id number] 2.16.840.1.151806.3.579.2. 9 1946 Unknown [id number] 2.16.840.1.004479.3.579.2. 9 1946 Unknown [id number] 2.16.840.1.666740.3.579.2. 1259 1946 Unknown [id number] 2.16.840.1.833210.3.579.2. 1259 1946 Unknown [id number] 2.16.840.1.057937.3.579.2. 9 1946 Unknown [id number] 2.16.840.1.499443.3.579.2. 1259 Unknown [id number] 2.16.840.1.078284.3.579.2. 531 Social History Date Type Detail Facility Start: 06-18-2021 End: 04-11-2023 Tobacco smoking status Ex-smoker (finding) [facility] Start: 04-11-2023 End: 06-07-2023 Sex Assigned At Male [facility] Tobacco smoking status Never [facility] End: 03-28-2020 History of tobacco use Current smoker [facility] End: 03-28-2020 History of tobacco use Cigarette Smoker [facility] Start: 04-11-2023 End: 03-05-2024 Tobacco use and exposure Smokeless tobacco non-user [facility] Start: 04-11-2023 End: 09-26-2024 Alcohol intake Current drinker of alcohol (finding) [facility] Start: 04-11-2023 End: 06-07-2023 History of Social function [facility] Start: 04-10-2023 Alcohol Comment monthly or less [facility] Start: 1945 Sex Assigned At [...] [facility] Start: 01-04-2017 [facility] Comment [facility] Start: 03-05-2013 End: 10-31-2014 Sex Male (finding) [facility] Start: 04-04-2024 [facility] Start: 04-04-2024 Alcoholic beverage intake Ex-drinker (finding) [facility] Start: 04-04-2024 Tobacco Comment Pack every 3 w eeks as of 04/04/24 [facility] Tobacco [facility] Unknown if ever smoked [facility] Work Phone: Start: 1945 Sex Assigned At Male F [facility] Sexual Orientation [facility] Medical Equipment Procedure Code Equipment Code Equipment Origin al Text Equipment Identifier Dates Start: 04-14-2019 End: 03-05-2024 Functional Status Date Assessment Result Facility 08-15-2024 Patient Health Questionnaire 2 item (PHQ-2) [Reported] [facility] 08-15-2024 How difficult have t hese problems made it for you to do your work, take care of things at home, or get along with other people? Not difficult at all 08/15/2024 10:50 AM EDT AB GRIFFITH Not difficult at all [facility] 07-11-2023 Functional Status N/A [facility] 06-18-2022 Functional Status N/A [facility] Clinical Notes 06-18-2021 to 10-09-2024 Marisol Boyce NP - 09/26/2024 10:15 AM EDAB RAPP - 09/26/2024 9:00 AM Cristiano Boyce, CATALINA - 09/26/2024 9:00 AM Cristiano Boyce NP - 09/26/2024 6:02 AM EDTPatient Instructions Note Date & Type Note Facility 10-09-2024 Note [facility] Cardiology Clinic Note Chief Complaint: Patient [...] Final Discharge Diagnosis: 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 Troponin was elevated at 100. He was given Cardizem, which converted him to sinus, and he was transferred to [facility]. He was placed on ASA/Plavix [...] 10/13/2023 11:00 AM Natasha Campo MD CARD [facility] 11/07/2023 7:30 AM [facility] MR 2 [facility] ORTH MR MPORTHO 11/08/2023 2:00 PM Peter Christensen MD [facility] Your medication list START taking these medications [...] Your Medications These medications were sent to [facility] [address] [address] ??? amiodarone 200 mg tablet ??? carvedilol 3.125 mg tablet ??? lisinopril 20 mg tablet These medications were sent to [facility] (more content not included)... [facility] 09-26-2024 History of Present illness Narrative [...] spinal stenosis 06/07/2023 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 03/02/2023 COVID-19 virus detected Depression Erectile dysfunction 06/07/2023 Fatigue Granuloma annulare Hearing loss, bilateral Hyperlipidemia 06/07/2023 WESTLEY (iron deficiency anemia) 04/11/2023 Lumbar spondylosis Lumbosacral pain 04/11/2023 CORNELIA (obstructive sleep apnea) 06/07/2023 PAD (peripheral artery disease) 03/25/2023 Primary hypertension 04/11/2023 Tobacco user 06/07/2023 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 Type 2 diabetes mellitus without complication, with long-term current use of insulin ([facility]) 03/22/2023 Past Surgical History: Procedure Laterality Date [...] complication, with long-term current use of insulin ([facility]) Check blood sugars daily, notify if <70 [...] meds: lisinopril, carvedilol Clarification with Zenobia at [facility] , lisinopril dose is 20mg daily, should not be filling lisinopril 5mg dose Also contacted the [facility] pharmacy to have them deactivate the [...] meds: lisinopril, carvedilol Clarification with Zenobia at [facility] , lisinopril dose is 20mg daily, should not be filling lisinopril 5mg dose Also contacted the [facility] pharmacy to have them deactivate the lisinopril 5mg script spoke with Juliet at 10:18am Associated Problem(s): Dizziness and giddiness Last appt had some mild orthostatic changes in BP Cardiology had him stop amlodipine No orthostatics today ?side effect meds, vs cervical pathology, vascular? Send to see neuro documented in this encounter [facility] 09-26-2024 Telephone encounter Note Please contact company regarding his eliquis to see why he has not received it yet?? Also call pt let him know do NOT take the 5mg lisinopril, he should only be taking the 20mg lisinopril dose LA [facility] 09-26-2024 Miscellaneous Notes Please contact company regarding his eliquis to see why he has not received it yet?? Also call pt let him know do NOT take the 5mg lisinopril, he should only be taking the 20mg lisinopril dose LA documented in this encounter [facility] 09-26-2024 Instructions Marisol Boyce NP - 09/26/2024 9:00 AM EDT Neurology: will call you, Ed office We will clarify the lisinopril dose with heart doctor documented in this encounter [facility] 08-15-2024 History of Present illness Narrative Associated Problem(s): Dizziness and giddiness Only notes when getting up from sitting to standing Orthostatics in office: [id number] Sittin/56 Standin/54 I will reach out to [...] discs Pt states he was up in [place] for pain mgmt for injections that helped and he wouldn't mind getting a referral to do again Pt needs a refill on his metformin Pt states he has not heard from the [employer] Pt seen urologist Pt also had colonoscopy done Graphics Manager October 09 Images from the original note [...] discs Pt states he was up in [place] for pain mgmt for injections that helped and he wouldn't mind getting a referral to do again Pt needs a refill on his metformin Pt states he has not heard from the [employer] Pt seen urologist Pt also had colonoscopy done Graphics Manager October 09 CGM: 3 173 avg, 58% [...] 140-180 mg/dl. An COLLEEN inhibitor/angiotensin II receptor ecsilia is being taken. He does not see a sulfonation equipment operator.Eye exam is not current. Hypertension This is [...] no compliance problems. Hypertensive end-organ damage includes CAD/ND and PVD. There is no history of [...] 06/07/2023 Bilateral carotid artery disease, unspecified type ([facility]) 06/07/2023 BPH (benign prostatic hyperplasia) 06/07/2023 Cervical spinal stenosis 06/07/2023 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 ([facility]) 03/02/2023 COVID-19 virus detected Depression ([facility]) Erectile dysfunction 06/07/2023 Fatigue Granuloma annulare Hearing loss, bilateral Hyperlipidemia ([facility]) 06/07/2023 WESTLEY (iron deficiency anemia) 04/11/2023 Lumbar spondylosis Lumbosacral pain 04/11/2023 CORNELIA (obstructive sleep apnea) 06/07/2023 PAD (peripheral artery disease) ([facility]) 03/25/2023 Primary hypertension ([facility]) 04/11/2023 Tobacco user 06/07/2023 Tubulovillous adenoma of [...] insulin, metformin A1c: 6.3% 07/11/24 Primary hypertension ([facility]) Please check blood pressure daily and record [...] info on advanced directives as well Hyperlipidemia ([facility]) Continue statin Check labs yearly, and prn dose changes Bilateral carotid artery disease, unspecified type ([facility]) Cont asa, statin Periodic monitoring with US A-fib ([facility]) Is on amiodirone as well as anti coagulation NSR today Cont with cardiology Centrilobular emphysema ([facility]) Noted on imaging, does not take any medications on a regular basis Type 2 diabetes mellitus with other specified complication PAD, CAD, ED Dizziness and giddiness Only notes when getting up from sitting to standing Orthostatics in office: [id number] Sittin/56 Standin/54 I will reach out to [...] manages your CORNELIA: documented in this encounter [facility] 08-15-2024 Instructions Marisol Boyce NP - 08/15/2024 10:30 AM EDT Drink more fluids, will reach out to cardiology for advice on BP documented in this encounter [facility] 07-18-2024 Note Patient Education Urology Benign [...] Follow these instructions at home: ??? Take [id number]-[id number] and prescription medicines only as told by [...] do not get (more content not included)... [facility] 05-15-2024 History of Present illness Narrative Associated [...] being taken. He does not see a sulfonation equipment operator.Eye exam is not current. Hypertension This is [...] no compliance problems. Hypertensive end-organ damage includes CAD/ND, heart failure and PVD. There is no [...] 06/07/2023 Bilateral carotid artery disease, unspecified type ([facility]) 06/07/2023 BPH (benign prostatic hyperplasia) 06/07/2023 Cervical spinal stenosis 06/07/2023 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 ([facility]) 03/02/2023 COVID-19 virus detected Depression ([facility]) Erectile dysfunction 06/07/2023 Fatigue Granuloma annulare Hearing loss, bilateral Hyperlipidemia ([facility]) 06/07/2023 WESTLEY (iron deficiency anemia) 04/11/2023 Lumbar spondylosis Lumbosacral pain 04/11/2023 CORNELIA (obstructive sleep apnea) 06/07/2023 PAD (peripheral artery disease) ([facility]) 03/25/2023 Primary hypertension ([facility]) 04/11/2023 Tobacco user 06/07/2023 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 Type 2 diabetes mellitus without complication, with long-term current use of insulin ([facility]) 03/22/2023 Past Surgical History: Procedure Laterality Date [...] Addressed This Visit 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 (CMS/HCC) - Primary Follows with cardiology Current meds: asa, statin, b cesilia, Relevant Orders Comprehensive metabolic panel Type 2 diabetes mellitus without complication, with long-term current use of insulin ([facility]) Check blood sugars daily, notify if <70 [...] ratio Hemoglobin A1c PAD (peripheral artery disease) ([facility]) Continue asa and statin Primary hypertension ([facility]) Please check blood pressure daily and record [...] Orders CBC and differential Iron level Hyperlipidemia ([facility]) Continue statin Check labs yearly, and prn dose changes Relevant Orders Comprehensive metabolic panel Lipid panel Erectile dysfunction A-fib ([facility]) Is on amiodirone as well as anti coagulation NSR today Cont with cardiology Relevant Orders CBC and differential Centrilobular emphysema ([facility]) Noted on imaging, does not take any medications on a regular basis Type 2 diabetes mellitus with other specified complication ([facility]) PAD, CAD, ED Relevant Orders Comprehensive metabolic panel Type 2 diabetes mellitus 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 ([facility]) Primary insomnia Recommend no napping during the day, can try melatonin up to 10mg at bedtime If not helpful consider trazadone, will call if he needs it Associated Problem(s): Hyperlipidemia ([facility]/HCC) Continue statin Check labs yearly, and prn dose changes Associated Problem(s): WESTLEY (iron deficiency anemia) Check labs in 06/19 Associated Problem(s): Type 2 diabetes mellitus without complication, with long-term current use of insulin ([facility]) Check blood sugars daily, notify if <70 [...] 2 diabetes mellitus with other specified complication ([facility]/HCC) PAD, CAD, ED Associated Problem(s): Primary hypertension ([facility]/HCC) Please check blood pressure daily and record DASH diet Limit caffeine Take medication as directed Contact office if chest pain, pressure, dizziness, shortness of breath, swelling legs Recommend slow position changes Cont current meds: lisinopril, carvedilol Associated Problem(s): PAD (peripheral artery disease) ([facility]) Continue asa and statin Associated Problem(s): 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 ([facility]) Follows with cardiology Current meds: asa, statin, b cesilia, Associated Problem(s): A-fib ([facility]) Is on amiodirone as well as anti coagulation NSR today Cont with cardiology Associated Problem(s): Centrilobular emphysema ([facility]) Noted on imaging, does not take any medications on a regular basis documented in this encounter [facility] 05-15-2024 Instructions Marisol Boyce NP - [...] due AFTER 06/14/24 documented in this encounter [facility] 04-18-2024 Miscellaneous Notes ----- Message from [...] PCP. ThanksDr. Mcgarry documented in this encounter [facility] 04-18-2024 Telephone encounter Note ----- Message from [...] get it from his PCP. ThanksDr. Mcgarry [facility] 04-04-2024 History of Present illness Narrative Images [...] cancer. He was hospitalized in September at [facility] for NSTEMI and a-fib. He is on aspirin and Eliquis daily. He denies chest pain and shortness of breath. His master esthetician is Dr. Campo in [place]. Review of Systems Constitutional: Negative for fever [...] COVID-19 11/2021 Diabetes mellitus type 2, controlled ([facility]) Dizziness HL (hearing loss) hearing aid both ears Hyperlipidemia Hypertension Injury of back Low back pain Myocardial infarction ([facility]) 2004 Pancreatitis 2017 Peripheral arterial occlusive disease ([facility]) Visual impairment glasses Wears dentures Past Surgical History: Procedure Laterality Date ARTHROSCOPY SHOULDER WITH SUBACROMIAL DECOMPRESSION AND DEBRIDEMENT TYPE 1 SLAP LESION Left 01/11/2017 Performed by Jr Eliezer Gifford DO at [facility] CARDIAC CATHETERIZATION 5 stents, most recent placed 12/2004 CATARACT EXTRACTION CHOLECYSTECTOMY COLONOSCOPY N/A 10/26/2018 Performed by Sabino Mauricio DO at [facility] EGD N/A 05/03/2019 Performed by Sabino Mauricio DO at [facility] EGD, DILATATION N/A 05/03/2019 Performed by Sabino Mauricio DO at [facility] INJECTION BLOCK NERVE MEDIAL BRANCH: bilat T 10/02/9 Bilateral 03/05/2022 Performed by Gabriel Hanson MD at [facility] INJECTION BLOCK NERVE MEDIAL BRANCH: bilat T 7/8 8/9 Bilateral 01/29/2022 Performed by Gabriel Hanson MD at [facility] INJECTION BLOCK NERVE MEDIAL BRANCH: right L 3/4 4/5 Right 09/05/2020 Performed by Gabriel Hanson MD at [facility] INJECTION BLOCK NERVE MEDIAL BRANCH: right [id number] Right 10/10/2020 Performed by Gabriel Hanson MD at [facility]: left hip Left 04/13/2019 Performed by Gabriel Hanson MD at [facility] MEDIAL BRANCH NERVE BLOCK: left [id number] Left 10/26/2019 Performed by Gabriel Hanson MD at [facility] SI JOINT-Left Left 10/20/2018 Performed by Gabriel Hanson MD at [facility] INJECTION STEROID EPI 1 WITH SEDATION: left [id number] Left 08/03/2019 Performed by Gabriel Hanson MD at [facility] INJECTION STEROID EPI 1 WITH SEDATION: left [id number] Left 09/03/2019 Performed by Gabriel Hanson MD at [facility] ADELE PROCEDURE SHOULDER Left 01/11/2017 Performed by Jr Eliezer Gifford DO at [facility] RADIOFREQUENCY ABLATION SPINAL: Left T 7/8 8/9 Left 04/23/2022 Performed by Gabriel Hanson MD at [facility] RADIOFREQUENCY ABLATION SPINAL: Right T 7/8 8/9 Right 04/09/2022 Performed by Gabriel Hanson MD at [facility] No Known Allergies Current Outpatient [...] Strain: Low Risk (11/10/2023) Received from [facility] Overall Financial Resource Strain (CARDIA) Difficulty of Paying Living Expenses: Not hard at all Food Insecurity: No Food Insecurity (04/04/2024) Hunger Screening Food Insecurity - Worry: Never True Food Insecurity - Inability: Never True Transportation Needs: No Transportation Needs (11/10/2023) Received from [facility] Transportation In the past 12 months, has lack of transportation kept you from medical appointments or from getting medications?: No Lack of Transportation (Non-Medical): Not on file Physical Activity: Inactive (06/07/2023) Received from [facility] Exercise Vital Sign Days of Exercise per Week: 0 days Minutes of Exercise per Session: 0 min Stress: Stress Concern Present (06/07/2023) Received from [facility] of Occupational Health - Occupational Stress Questionnaire Feeling of Stress : To some extent Social Connections: Moderately Integrated (06/07/2023) Received from [facility] Social Connection and Isolation Panel [NHANES] Frequency of Communication with Friends and Family: More than three times a week Frequency of Social Gatherings with Friends and Family: Once a week Attends Sabianist Services: More than 4 times per year Active Member of Clubs or Organizations: No Attends Club or Organization Meetings: Never Marital Status: Interpersonal Safety: Not At Risk (11/10/2023) Received from [facility] Humiliation, Afraid, Rape, and Kick questionnaire Fear of Current or Ex-Partner: No Emotionally Abused: No Physically Abused: No Sexually Abused: No Housing Instability: Low Risk (11/10/2023) Received from [facility] Housing Stability Vital Sign Unable to Pay for Housing in the Last Year: Not on file Number of Places Lived in the Last Year: Not on file In the last 12 months, was there a time when you did not have a steady place to sleep or slept in a fci (including now)?: No Family History Problem Relation [...] patient/family/caregiver Referring and communicating with other health rn intensive care unit Encounter for colonoscopy due to history of colonic polyp [Z12.11, Z86.0100] SATURNINO BHANDARI [facility] [facility] General Surgery Thida/Omro This note was created with the assistance of a speech recognition program. While intending to generate a timely document that accurately reflects the content of the visit, no guarantee can be provided that every grammatical or spelling mistake has been or will be identified or corrected. Thank you for your understanding. 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 Troponin was elevated at 100. He was given Cardizem, which converted him to sinus, and he was transferred to [facility]. He was placed on ASA/Plavix [...] Center 10/13/2023 11:00 AM Natasha Campo MD [facility] 11/07/2023 7:30 AM [facility] MR 2 [facility] ORTH MR MPORTHO 11/08/2023 2:00 PM Peter Christensen MD [facility] Your medication list START taking these medications [...] Your Medications These medications were sent to [facility] [address] [address] Phone: [phone] (more content not included)... [facility] 03-05-2024 History of Present illness Narrative [...] cancer. He was hospitalized in September at [facility] for NSTEMI and a-fib. He is on aspirin and Eliquis daily. He denies chest pain and shortness of breath. His master esthetician is Dr. Campo in [place]. Review of Systems Constitutional: Negative for fever [...] COVID-19 11/2021 Diabetes mellitus type 2, controlled ([facility]) Dizziness HL (hearing loss) hearing aid left ear Hyperlipidemia Hypertension Injury of back Low back pain Myocardial infarction ([facility]) 2004 Pancreatitis 2017 Peripheral arterial occlusive disease ([facility]) Visual impairment glasses Wears dentures Past Surgical History: Procedure Laterality Date ARTHROSCOPY SHOULDER WITH SUBACROMIAL DECOMPRESSION AND DEBRIDEMENT TYPE 1 SLAP LESION Left 01/11/2017 Performed by Jr Eliezer Gifford DO at [facility] CARDIAC CATHETERIZATION 5 stents, most recent placed 12/2004 CATARACT EXTRACTION CHOLECYSTECTOMY COLONOSCOPY N/A 10/26/2018 Performed by Sabino Mauricio DO at [facility] EGD N/A 05/03/2019 Performed by Sabino Mauricio DO at [facility] EGD, DILATATION N/A 05/03/2019 Performed by Sabino Mauricio DO at [facility] INJECTION BLOCK NERVE MEDIAL BRANCH: bilat T 10/02 8/9 Bilateral 03/05/2022 Performed by Gabriel Hanson MD at [facility] INJECTION BLOCK NERVE MEDIAL BRANCH: bilat T 78 8/9 Bilateral 01/29/2022 Performed by Gabriel Hanson MD at [facility] INJE[facility] BLOCK NERVE MEDIAL BRANCH: right L 3/4 4/5 Right 09/05/2020 Performed by Gabriel Hanson MD at [facility] INJECTION BLOCK NERVE MEDIAL BRANCH: right [id number] Right 10/10/2020 Performed by Gabriel Hanson MD at [facility] INJECTION LARGE JOINT BURSA: left hip Left 04/13/2019 Performed by Gabriel Hanson MD at [facility] INJECTION MEDIAL BRANCH NERVE BLOCK: left [id number] Left 10/26/2019 Performed by Gabriel Hanson MD at [facility] INJECTION SI JOINT-Left Left 10/20/2018 Performed by Gabriel Hanson MD at [facility] INJECTION STEROID EPI 1 WITH SEDATION: left [id number] Left 08/03/2019 Performed by Gabriel Hanson MD at [facility] INJECTION STEROID EPI 1 WITH SEDATION: left [id number] Left 09/03/2019 Performed by Gabriel Hanson MD at [facility] ADELE PROCEDURE SHOULDER Left 01/11/2017 Performed by Jr Eliezer Gifford DO at [facility] RADIOFREQUENCY ABLATION SPINAL: Left T 7/8 8/9 Left 04/23/2022 Performed by Gabriel Hanson MD at [facility] RADIOFREQUENCY ABLATION SPINAL: Right T 7/8 8/9 Right 04/09/2022 Performed by Gabriel Hanson MD at [facility] No Known Allergies Current Outpatient [...] MOUTH DAILY, Disp: , Rfl: peg 3350-sod sulf,nava-bdp-saa 178.7-7.3-0.5 gram recon soln, Take 1 kit [...] Strain: Low Risk (11/10/2023) Received from [facility] Overall Financial Resource Strain (CARDIA) Difficulty of Paying Living Expenses: Not hard at all Food Insecurity: No Food Insecurity (11/10/2023) Received from [facility] Hunger Vital Sign Within the past 12 months, you worried that your food would run out before you got the money to buy more.: Never true Ran Out of Food in the Last Year: Not on file Transportation Needs: No Transportation Needs (11/10/2023) Received from [facility] Transportation In the past 12 months, has lack of transportation kept you from medical appointments or from getting medications?: No Lack of Transportation (Non-Medical): Not on file Physical Activity: Inactive (06/07/2023) Received from [facility] Exercise Vital Sign Days of Exercise per Week: 0 days Minutes of Exercise per Session: 0 min Stress: Stress Concern Present (06/07/2023) Received from [facility] [employer] [place] [employer] - Occupational Stress Questionnaire Feeling of Stress : To some extent Social Connections: Moderately Integrated (06/07/2023) Received from [facility] Social Connection and Isolation Panel [NHANES] Frequency of Communication with Friends and Family: More than three times a week Frequency of Social Gatherings with Friends and Family: Once a week Attends Sabianist Services: More than 4 times per year Active Member of Clubs or Organizations: No Attends Club or Organization Meetings: Never Marital Status: Interpersonal Safety: Not At Risk (11/10/2023) Received from [facility] Humiliation, Afraid, Rape, and Kick questionnaire Fear of Current or Ex-Partner: No Emotionally Abused: No Physically Abused: No Sexually Abused: No Housing Instability: Low Risk (11/10/2023) Received from [facility] Housing Stability Vital Sign Unable to Pay for Housing in the Last Year: Not on file Number of Places Lived in the Last Year: Not on file In the last 12 months, was there a time when you did not have a steady place to sleep or slept in a fci (including now)?: No Family History Problem Relation [...] patient/family/caregiver Referring and communicating with other health rn intensive care unit Encounter for colonoscopy due to history of colonic polyp [Z12.11, Z86.0100] SATURNINO BHANDARI [facility] General Surgery Thida/Omro This note was created with the assistance of a speech recognition program. While intending to generate a timely document that accurately reflects the content of the visit, no guarantee can be provided that every grammatical or spelling mistake has been or will be identified or corrected. Thank you for your understanding. SATURNINO Bhandari 03/05/24 1215 documented in this encounter [facility] 02-15-2024 History of Present illness Narrative Associated [...] no compliance problems. Hypertensive end-organ damage includes CAD/ND, heart failure and PVD. Diabetes He has [...] being taken. He does not see a sulfonation equipment operator.Eye exam is not current. SUBJECTIVE: MEDICATIONS: Current [...] 06/07/2023 Bilateral carotid artery disease, unspecified type ([facility]) 06/07/2023 BPH (benign prostatic hyperplasia) 06/07/2023 Cervical spinal stenosis 06/07/2023 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 ([facility]) 03/02/2023 COVID-19 virus detected Depression ([facility]) Erectile dysfunction 06/07/2023 Fatigue Granuloma annulare Hearing loss, bilateral Hyperlipidemia ([facility]) 06/07/2023 WESTLEY (iron deficiency anemia) 04/11/2023 Lumbar spondylosis Lumbosacral pain 04/11/2023 CORNELIA (obstructive sleep apnea) 06/07/2023 PAD (peripheral artery disease) ([facility]) 03/25/2023 Primary hypertension ([facility]) 04/11/2023 Tobacco user 06/07/2023 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 Type 2 diabetes mellitus without complication, with long-term current use of insulin ([facility]) 03/22/2023 Past Surgical History: Procedure Laterality Date [...] complication, with long-term current use of insulin ([facility]) - Primary Check blood sugars daily, notify [...] flomax Erectile dysfunction 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 (CMS/HCC) Cont [...] complication, with long-term current use of insulin ([facility]) Check blood sugars daily, notify if <70 [...] flomax Associated Problem(s): 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 ([facility]) Cont with asa, statin, b cesilia And cardiology Associated Problem(s): PAD (peripheral artery disease) ([facility]) Continue asa and statin Associated Problem(s): Primary hypertension ([facility]) Please check blood pressure daily and record DASH diet Limit caffeine Take medication as directed Contact office if chest pain, pressure, dizziness, shortness of breath, swelling legs Recommend slow position changes Cont current meds documented in this encounter [facility] 02-15-2024 Instructions Marisol Boyce NP - [...] diabetic eye exam documented in this encounter [facility] 02-02-2024 Telephone encounter Note Have we heard any reponse on a note I sent to you a few weeks ago about his metfromin?? [place] [facility] 02-02-2024 Miscellaneous Notes Have we heard any reponse on a note I sent to you a few weeks ago about his metfromin?? [place] documented in this encounter [facility] 01-04-2024 History of Present illness Narrative [...] his amlodipine, I did call Joan at [facility] cardiology and she will verify [...] no compliance problems. Hypertensive end-organ damage includes CAD/ND and PVD. SUBJECTIVE: MEDICATIONS: Current Outpatient Medications Medication Instructions amiodarone (PACERONE) 200 mg, Oral, Daily with breakfast amLODIPine (NORVASC) 5 mg, Oral, Daily RT apixaban (ELIQUIS) 5 mg, Oral, 2 times daily Aspirin Low Dose 81 mg, Oral, Daily atorvastatin (LIPITOR) 80 mg, Oral, Daily carvedilol (COREG) 3.125 mg, Oral, 2 times daily with meals Continuous Glucose Content Checker (Dexcom G7 Content Checker) device 1 each, Does not apply, Daily [...] spinal stenosis 06/07/2023 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 ([facility]) 03/02/2023 COVID-19 virus detected Depression ([facility]) Erectile dysfunction 06/07/2023 Fatigue Granuloma annulare Hearing loss, bilateral Hyperlipidemia ([facility]) 06/07/2023 WESTLEY (iron deficiency anemia) 04/11/2023 Lumbar spondylosis Lumbosacral pain 04/11/2023 CORNELIA (obstructive sleep apnea) 06/07/2023 PAD (peripheral artery disease) ([facility]) 03/25/2023 Primary hypertension ([facility]) 04/11/2023 Tobacco user 06/07/2023 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 Type 2 diabetes mellitus without complication, with long-term current use of insulin ([facility]) 03/22/2023 Past Surgical History: [...] complication, with long-term current use of insulin ([facility]) Consider GLP 1 possible hx of Pancreatitis [...] his amlodipine, I did call Joan at [facility] cardiology and she will verify Chronic thoracic back pain - Primary Relevant Orders XR thoracic spine 3 views documented in this encounter [facility] 11-29-2023 Note lis [facility] 11-29-2023 Note [facility] 11-29-2023 Note [facility] Cardiology Clinic Note Chief Complaint: Pt [...] Final Discharge Diagnosis: 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 Troponin was elevated at 100. He was given Cardizem, which converted him to sinus, and he was transferred to [facility]. He was placed on ASA/Plavix [...] Center 10/13/2023 11:00 AM Natasha Campo MD [facility] [place] [facility] 11/07/2023 7:30 AM [facility] MR 2 [facility] ORTH MR MPORTHO 11/08/2023 2:00 PM Peter Christensen MD [facility] Your medication list START taking these medications [...] Your Medications These medications were sent to [facility] [place] - [facility] [address] [facility] [address] ??? amiodarone 200 mg tablet ??? carvedilol 3.125 mg tablet ??? lisinopril 20 mg tablet These medications were sent to [facility] [place] [address] [address] [place] [address] [place] [address] [place] [id number] (more content not included)... [facility] 11-22-2023 History of Present illness Narrative [...] 2 times daily with meals Continuous Glucose Content Checker (Dexcom G7 Content Checker) device 1 each, Does not apply, Daily [...] 06/07/2023 Bilateral carotid artery disease, unspecified type ([facility]) 06/07/2023 BPH (benign prostatic hyperplasia) 06/07/2023 Cervical spinal stenosis 06/07/2023 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 ([facility]) 03/02/2023 COVID-19 virus detected Depression ([facility]) Erectile dysfunction 06/07/2023 Fatigue Granuloma annulare Hearing loss, bilateral Hyperlipidemia ([facility]) 06/07/2023 WESTLEY (iron deficiency anemia) 04/11/2023 Lumbar spondylosis Lumbosacral pain 04/11/2023 CORNELIA (obstructive sleep apnea) 06/07/2023 PAD (peripheral artery disease) ([facility]) 03/25/2023 Primary hypertension ([facility]) 04/11/2023 Tobacco user 06/07/2023 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 Type 2 diabetes mellitus without complication, with long-term current use of insulin ([facility]) 03/22/2023 Past Surgical History: Procedure Laterality Date [...] Addressed This Visit 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 ([facility]/HCC) - Primary Primary hypertension ([facility]) No med dose changes at this time Nonrheumatic mitral valve regurgitation Cont with cardiology for recommendations A-fib ([facility]) 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 Document Revised: 06/10/2021 Document Reviewed: 06/10/2021 [employer] Patient Education 2022 [employer]. Follow Up Care 06/18/2022 10:46:56 With:Chris QUINTANA, GEORGE Mitchell, URO Address: When:Within 1 Year(s) [facility] 06-16-2022 Hospital Discharge instructions Patient Education [...] urethra. Follow these instructions at home: Take cjmm-itp-kjohwbq and prescription medicines only as told by [...] 03/14/2006 Document Revised: 02/06/2019 Document Reviewed: 04/18/2017 [employer] Patient Education 2020 [employer] Follow Up Care 06/18/2021 11:18:31 With:Chris QUINTANA, GEORGE Mitchell, URO Address: When: Unknown [facility] 06-18-2021 Hospital Discharge instructions Patient Education [...] 03/14/2006 Document Revised: 12/01/2018 Document Reviewed: 02/11/2017 [employer] Patient Education 2020 [employer] 06/18/2021 11:19:47 Benign Prostatic Hyperplasia Benign Prostatic [...] urethra. Follow these instructions at home: Take jtwa-gzh-raxehtw and prescription medicines only as told by [...] 03/14/2006 Document Revised: 02/06/2019 Document Reviewed: 04/18/2017 [employer] Patient Education 2020 [employer] Follow Up Care 06/12/2020 11:26:53 With:ZULMA QUINTANA, Carlitos Villar, URL Address: [address] [place] [id number] [phone] When:Within 1 Year(s) Comments:sanford/GHAZALA [facility] Evaluation + Plan note Future Appointments Appointment Date:06/18/2022 10:00:00 AM Scheduled Provider:Deja Perez MD Location:Critical access hospital Appointment Type:URO Office Visit Diagnostic Tests PendingPSA Total 06/18/21 [facility] Evaluation + Plan note Future Appointments Appointment Date:06/23/2023 10:00:00 AM Scheduled Provider:Deja Perez MD Location:Critical access hospital Appointment Type:URO Office Visit Diagnostic Tests PendingPSA Free & Total 06/18/22 [facility] Evaluation + Plan note Future Appointments Appointment Date:07/04/2024 10:45:00 AM Scheduled Provider:Deja Perez MD Location:[facility] Appointment Type:URO Office Visit Diagnostic Tests PendingPSA Screen, Total 07/11/23 [facility] Evaluation + Plan note Future Appointments Appointment Date:07/18/2024 08:15:00 AM Scheduled Provider:Deja Perez MD Location:[facility] Appointment Type:URO Office Visit [facility] Evaluation note Diagnosis Type 2 diabetes mellitus without complication, with long-term current use of insulin ([facility])- Primary Chronic thoracic back pain, unspecified back pain laterality Primary hypertension ([facility]) Unspecified essential hypertension documented in this encounter [facility] Diagnosis Type 2 diabetes mellitus without complication, with long-term current use of insulin ([facility])- Primary Primary hypertension (CMS/HCC) Unspecified essential hypertension 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 (CMS/[facility]) PAD (peripheral artery disease) (CMS/[facility]) Unspecified peripheral vascular disease Iron deficiency anemia, unspecified iron deficiency anemia type Lumbosacral pain Encounter for subsequent annual wellness visit (AWV) in Medicare patient- 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 (Z79.4) Peripheral vascular disease, unspecified (I73.9) Peripheral vascular disease, unspecified Mixed hyperlipidemia (CMS/HCC) Mixed hyperlipidemia Iron deficiency anemia, unspecified iron deficiency anemia type Type 2 diabetes mellitus without complication, with long-term current use of insulin (CMS/HCC) COPD, moderate (CMS/HCC) Primary hypertension (CMS/HCC) Unspecified essential hypertension 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 (CMS/HCC) PAD (peripheral artery disease) (CMS/HCC) Unspecified peripheral vascular disease Nonrheumatic mitral valve regurgitation Riley's esophagus with dysplasia Benign prostatic hyperplasia with lower urinary tract symptoms, symptom details unspecified Primary hypertension (CMS/HCC)- Primary Unspecified essential hypertension Type 2 diabetes mellitus without complication, with long-term current use of insulin (CMS/HCC) 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 (CMS/HCC)- Primary Type 2 diabetes mellitus with other specified complication (CMS/HCC) Male erectile dysfunction, unspecified Type 2 diabetes mellitus 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 (CMS/HCC) Acute cough Primary hypertension (CMS/HCC) Unspecified essential hypertension Paroxysmal atrial fibrillation (CMS/HCC) Atrial fibrillation Type 2 diabetes mellitus without complication, with long-term current use of insulin (CMS/HCC) 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 (CMS/HCC)- Primary Other [...] peripheral vascular disease 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 (CMS/HCC) Riley's esophagus with dysplasia Erectile dysfunction due to diseases classified elsewhere Benign prostatic hyperplasia with lower urinary tract symptoms, symptom details unspecified Colon cancer screening Special screening for malignant neoplasms, colon Tubulovillous adenoma of colon Lumbosacral spondylosis without myelopathy documented in this encounter [facility] HealthcareEvaluation note* Diagnosis 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 (CMS/HCC)- Primary Other thrombophilia (CMS/HCC) Paroxysmal atrial fibrillation (CMS/HCC) Atrial fibrillation Nonrheumatic mitral valve regurgitation Primary hypertension (CMS/HCC) Unspecified essential hypertension 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) documented in this encounter [facility] [facility] Diagnosis Benign prostatic hyperplasia with lower urinary tract symptoms, symptom details unspecified- Primary documented in this encounter [facility] HealthcareEvaluation note* Diagnosis Type 2 diabetes mellitus without complication, with long-term current use of insulin (CMS/HCC)- Primary Primary hypertension (CMS/HCC) Unspecified essential hypertension 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 (CMS/HCC) PAD (peripheral artery disease) (CMS/HCC) Unspecified peripheral vascular disease Iron deficiency anemia, unspecified iron deficiency anemia type Lumbosacral pain Encounter for subsequent annual wellness visit (AWV) in Medicare patient- 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 (Z79.4) Peripheral vascular disease, unspecified (I73.9) Peripheral vascular disease, unspecified Mixed hyperlipidemia (CMS/HCC) Mixed hyperlipidemia Iron deficiency anemia, unspecified iron deficiency anemia type Type 2 diabetes mellitus without complication, with long-term current use of insulin (/HCC) COPD, moderate (CMS/HCC) Primary hypertension (CMS/HCC) Unspecified essential hypertension 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 (CMS/HCC) PAD (peripheral artery disease) (CMS/HCC) Unspecified peripheral vascular disease Nonrheumatic mitral valve regurgitation Riley's esophagus with dysplasia Benign prostatic hyperplasia with lower urinary tract symptoms, symptom details unspecified Primary hypertension (CMS/HCC)- Primary Unspecified essential hypertension Type 2 diabetes mellitus without complication, with long-term current use of insulin (CMS/HCC) 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 (CMS/HCC)- Primary Type 2 diabetes mellitus with other specified complication (CMS/HCC) Male erectile dysfunction, unspecified Type 2 diabetes mellitus 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 (CMS/HCC) Acute cough Primary hypertension (CMS/HCC) Unspecified essential hypertension Paroxysmal atrial fibrillation (CMS/HCC) Atrial fibrillation Type 2 diabetes mellitus without complication, with long-term current use of insulin (CMS/HCC) 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 (CMS/HCC)- Primary Other [...] peripheral vascular disease 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 (/) Riley's esophagus with dysplasia Erectile dysfunction due to diseases classified elsewhere Benign prostatic hyperplasia with lower urinary tract symptoms, symptom details unspecified Colon cancer screening Special screening for malignant neoplasms, colon Tubulovillous adenoma of colon Lumbosacral spondylosis without myelopathy Type 2 diabetes mellitus without complication, with long-term current use of insulin (/HCC)- Primary documented in this encounter [facility] HealthcareEvaluation note* Diagnosis Encounter for colonoscopy due to history of colonic polyp- Primary 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 documented in [facility] encounter [facility] System[facility]* Diagnosis Type 2 diabetes mellitus without complication, with long-term current use of insulin (/)- Primary Primary hypertension (/HCC) Unspecified essential hypertension 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 (CMS/HCC) PAD (peripheral artery disease) (/) Unspecified peripheral vascular disease Iron deficiency anemia, unspecified iron deficiency anemia type Lumbosacral pain Encounter for subsequent annual wellness visit (AWV) in Medicare patient- 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 (Z79.4) Peripheral vascular disease, unspecified (I73.9) Peripheral vascular disease, unspecified Mixed hyperlipidemia (/HCC) Mixed hyperlipidemia Iron deficiency anemia, unspecified iron deficiency anemia type Type 2 diabetes mellitus without complication, with long-term current use of insulin (/HCC) COPD, moderate (CMS/HCC) Primary hypertension (CMS/HCC) Unspecified essential hypertension 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 (CMS/HCC) PAD (peripheral artery disease) (CMS/HCC) Unspecified peripheral vascular disease Nonrheumatic mitral valve regurgitation Riley's esophagus with dysplasia Benign prostatic hyperplasia with lower urinary tract symptoms, symptom details unspecified Primary hypertension (CMS/HCC)- Primary Unspecified essential hypertension Type 2 diabetes mellitus without complication, with long-term current use of insulin (CMS/HCC) 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 (CMS/HCC)- Primary Type 2 diabetes mellitus with other specified complication (CMS/HCC) Male erectile dysfunction, unspecified Type 2 diabetes mellitus 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 (CMS/HCC) Acute cough Primary hypertension (CMS/HCC) Unspecified essential hypertension Paroxysmal atrial fibrillation (CMS/HCC) Atrial fibrillation Type 2 diabetes mellitus without complication, with long-term current use of insulin (CMS/HCC) 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 (CMS/HCC)- Primary Other [...] peripheral vascular disease 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 (CMS/HCC) Riley's esophagus with dysplasia Erectile dysfunction due to diseases classified elsewhere Benign prostatic hyperplasia with lower urinary tract symptoms, symptom details unspecified Colon cancer screening Special screening for malignant neoplasms, colon Tubulovillous adenoma of colon Lumbosacral spondylosis without myelopathy Type 2 diabetes mellitus without complication, with long-term current use of insulin (CMS/HCC)- Primary documented in this encounter [facility] HealthcareEvaluation noteNo assessment information availablePromedica F[facility] Work Phone: Evaluation note* Diagnosis Type 2 diabetes mellitus without complication, with long-term current use of insulin (CMS/HCC)- Primary Primary hypertension (CMS/HCC) Unspecified essential hypertension 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 (CMS/HCC) PAD (peripheral artery disease) (CMS/HCC) Unspecified peripheral vascular disease Iron deficiency anemia, unspecified iron deficiency anemia type Lumbosacral pain Encounter for subsequent annual wellness visit (AWV) in Medicare patient- 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 (Z79.4) Peripheral vascular disease, unspecified (I73.9) Peripheral vascular disease, unspecified Mixed hyperlipidemia (CMS/HCC) Mixed hyperlipidemia Iron deficiency anemia, unspecified iron deficiency anemia type Type 2 diabetes mellitus without complication, with long-term current use of insulin (CMS/HCC) COPD, moderate (CMS/HCC) Primary hypertension (CMS/HCC) Unspecified essential hypertension 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 (CMS/HCC) PAD (peripheral artery disease) (CMS/HCC) Unspecified peripheral vascular disease Nonrheumatic mitral valve regurgitation Riley's esophagus with dysplasia Benign prostatic hyperplasia with lower urinary tract symptoms, symptom details unspecified Primary hypertension (CMS/HCC)- Primary Unspecified essential hypertension Type 2 diabetes mellitus without complication, with long-term current use of insulin (CMS/HCC) 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 (CMS/HCC)- Primary Type 2 diabetes mellitus with other specified complication (CMS/HCC) Male erectile dysfunction, unspecified Type 2 diabetes mellitus 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 (CMS/HCC) Acute cough Primary hypertension (CMS/HCC) Unspecified essential hypertension Paroxysmal atrial fibrillation (CMS/HCC) Atrial fibrillation Type 2 diabetes mellitus without complication, with long-term current use of insulin (CMS/HCC) 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 (CMS/HCC)- Primary Other [...] peripheral vascular disease 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 (CMS/HCC) Riley's esophagus with dysplasia Erectile dysfunction due to diseases classified elsewhere Benign prostatic hyperplasia with lower urinary tract symptoms, symptom details unspecified Colon cancer screening Special screening for malignant neoplasms, colon Tubulovillous adenoma of colon Lumbosacral spondylosis without myelopathy Type 2 diabetes mellitus without complication, with long-term current use of insulin (CMS/HCC) documented in this encounter [facility] HealthcareEvaluation note* Diagnosis Encounter for colonoscopy due to history of colonic polyp- Primary 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 documented in this encounter [facility] SystemEvaluation [facility]* Diagnosis Type 2 diabetes mellitus without complication, with long-term current use of insulin (CMS/HCC)- Primary Primary hypertension (CMS/HCC) Unspecified essential hypertension 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 (CMS/HCC) PAD (peripheral artery disease) (CMS/HCC) Unspecified peripheral vascular disease Iron deficiency anemia, unspecified iron deficiency anemia type Lumbosacral pain Encounter for subsequent annual wellness visit (AWV) in Medicare patient- Primary assisted (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 of insulin (Z79.4) Peripheral vascular disease, unspecified (I73.9) Peripheral vascular disease, unspecified Mixed hyperlipidemia (CMS/HCC) Mixed hyperlipidemia Iron deficiency anemia, unspecified iron deficiency anemia type Type 2 diabetes mellitus without complication, with long-term current use of insulin (CMS/HCC) COPD, moderate (CMS/HCC) Primary hypertension (CMS/HCC) Unspecified essential hypertension 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 (CMS/HCC) PAD (peripheral artery disease) (CMS/HCC) Unspecified peripheral vascular disease Nonrheumatic mitral valve regurgitation Riley's esophagus with dysplasia Benign prostatic hyperplasia with lower urinary tract symptoms, symptom details unspecified Primary hypertension (CMS/HCC)- Primary Unspecified essential hypertension Type 2 diabetes mellitus without complication, with long-term current use of insulin (CMS/HCC) 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 (CMS/HCC)- Primary Type 2 diabetes mellitus with other specified complication (CMS/HCC) Male erectile dysfunction, unspecified Type 2 diabetes mellitus 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 (CMS/HCC) Acute cough Primary hypertension (CMS/HCC) Unspecified essential hypertension Paroxysmal atrial fibrillation (CMS/HCC) Atrial fibrillation Type 2 diabetes mellitus without complication, with long-term current use of insulin (CMS/HCC) 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 (CMS/HCC)- Primary Other [...] peripheral vascular disease 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 (CMS/HCC) Riley's [...] (CMS/HCC) Atrial fibrillation 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 (CMS/HCC) Primary hypertension (CMS/HCC) Unspecified essential hypertension PAD (peripheral artery disease) (CMS/HCC) Unspecified peripheral vascular disease Iron deficiency anemia, unspecified iron deficiency anemia type Mixed hyperlipidemia (CMS/HCC) Mixed hyperlipidemia Primary insomnia Persistent disorder of initiating or maintaining sleep documented in this encounter [facility] HealthcareEvaluation note* Diagnosis Type 2 diabetes mellitus without complication, with long-term current use of insulin (CMS/HCC)- Primary Primary hypertension (CMS/HCC) Unspecified essential hypertension 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 (CMS/HCC) PAD (peripheral artery disease) (CMS/HCC) Unspecified peripheral vascular disease Iron deficiency anemia, unspecified iron deficiency anemia type Lumbosacral pain Encounter for subsequent annual wellness visit (AWV) in Medicare patient- Primary assisted (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 of insulin (Z79.4) Peripheral vascular disease, unspecified (I73.9) Peripheral vascular disease, unspecified Mixed hyperlipidemia (CMS/HCC) Mixed hyperlipidemia Iron deficiency anemia, unspecified iron deficiency anemia type Type 2 diabetes mellitus without complication, with long-term current use of insulin (CMS/HCC) COPD, moderate (CMS/HCC) Primary hypertension (CMS/HCC) Unspecified essential hypertension 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 (CMS/HCC) PAD (peripheral artery disease) (CMS/HCC) Unspecified peripheral vascular disease Nonrheumatic mitral valve regurgitation Riley's esophagus with dysplasia Benign prostatic hyperplasia with lower urinary tract symptoms, symptom details unspecified Primary hypertension (CMS/HCC)- Primary Unspecified essential hypertension Type 2 diabetes mellitus without complication, with long-term current use of insulin (/HCC) 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 (CMS/HCC)- Primary Type 2 diabetes mellitus with other specified complication (CMS/HCC) Male erectile dysfunction, unspecified Type 2 diabetes mellitus 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 (CMS/HCC) Acute cough Primary hypertension (CMS/HCC) Unspecified essential hypertension Paroxysmal atrial fibrillation (CMS/HCC) Atrial fibrillation Type 2 diabetes mellitus without complication, with long-term current use of insulin (/HCC) 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 (CMS/HCC)- Primary Other [...] peripheral vascular disease 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 (CMS/HCC) Riley's [...] (CMS/HCC) Atrial fibrillation 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 (CMS/HCC) Primary hypertension (CMS/HCC) Unspecified essential hypertension PAD (peripheral artery disease) (CMS/HCC) Unspecified peripheral vascular disease Iron deficiency anemia, unspecified iron deficiency anemia type Mixed hyperlipidemia (CMS/HCC) Mixed hyperlipidemia Primary insomnia 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- Primary documented in this encounter [facility] HealthcareEvaluation note* Diagnosis Type 2 diabetes mellitus without complication, with long-term current use of insulin- Primary Primary hypertension (CMS/HCC) Unspecified essential hypertension 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 (CMS/HCC) PAD (peripheral artery disease) (CMS/HCC) Unspecified peripheral vascular disease Iron deficiency anemia, unspecified iron deficiency anemia type Lumbosacral pain Encounter for subsequent annual wellness visit (AWV) in Medicare patient- 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 (Z79.4) Peripheral vascular disease, unspecified (I73.9) Peripheral vascular disease, unspecified Mixed hyperlipidemia (CMS/HCC) Mixed hyperlipidemia Iron deficiency anemia, unspecified iron deficiency anemia type Type 2 diabetes mellitus without complication, with long-term current use of insulin COPD, moderate (CMS/HCC) Primary hypertension (CMS/HCC) Unspecified essential hypertension 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 (CMS/HCC) PAD (peripheral artery disease) (CMS/HCC) Unspecified peripheral vascular disease Nonrheumatic mitral valve regurgitation Riley's esophagus with dysplasia Benign prostatic hyperplasia with lower urinary tract symptoms, symptom details unspecified Primary hypertension (CMS/HCC)- Primary Unspecified essential hypertension Type 2 diabetes mellitus without complication, with long-term current use of insulin 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 (CMS/HCC)- Primary Type 2 diabetes mellitus with other specified complication Male erectile dysfunction, unspecified Type 2 diabetes mellitus 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 (CMS/HCC) Acute cough Primary hypertension (CMS/HCC) Unspecified essential hypertension Paroxysmal atrial fibrillation (CMS/HCC) Atrial fibrillation Type 2 diabetes mellitus without complication, with long-term current use of insulin 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 (CMS/HCC)- Primary Other [...] peripheral vascular disease 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 (CMS/HCC) Riley's [...] (CMS/HCC) Atrial fibrillation 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 (CMS/HCC) Primary hypertension [...] Unspecified essential hypertension 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 (CMS/HCC) PAD (peripheral artery disease) (CMS/HCC) Unspecified peripheral vascular disease Iron deficiency anemia, unspecified iron deficiency anemia type Lumbosacral pain Encounter for subsequent annual wellness visit (AWV) in Medicare patient- 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 (Z79.4) Peripheral vascular disease, unspecified (I73.9) Peripheral vascular disease, unspecified Mixed hyperlipidemia (CMS/HCC) Mixed hyperlipidemia Iron deficiency anemia, unspecified iron deficiency anemia type Type 2 diabetes mellitus without complication, with long-term current use of insulin COPD, moderate (CMS/HCC) Primary hypertension (CMS/HCC) Unspecified essential hypertension 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 (CMS/HCC) PAD (peripheral artery disease) (CMS/HCC) Unspecified peripheral vascular disease Nonrheumatic mitral valve regurgitation Riley's esophagus with dysplasia Benign prostatic hyperplasia with lower urinary tract symptoms, symptom details unspecified Primary hypertension (CMS/HCC)- Primary Unspecified essential hypertension Type 2 diabetes mellitus without complication, with long-term current use of insulin 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 (CMS/HCC)- Primary Type 2 diabetes mellitus with other specified complication Male erectile dysfunction, unspecified Type 2 diabetes mellitus 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 (CMS/HCC) Acute cough Primary hypertension (CMS/HCC) Unspecified essential hypertension Paroxysmal atrial fibrillation (CMS/HCC) Atrial fibrillation Type 2 diabetes mellitus without complication, with long-term current use of insulin 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 (CMS/HCC)- Primary Other [...] peripheral vascular disease 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 (CMS/HCC) Riley's [...] (CMS/HCC) Atrial fibrillation 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 (CMS/HCC) Primary hypertension (CMS/HCC) Unspecified essential hypertension PAD (peripheral artery disease) (CMS/HCC) Unspecified peripheral vascular disease Iron deficiency anemia, unspecified iron deficiency anemia type Mixed hyperlipidemia (CMS/HCC) Mixed hyperlipidemia Primary insomnia Persistent disorder of initiating or maintaining sleep Type 2 diabetes mellitus without complication, with long-term current use of insulin documented in this encounter [facility] HealthcareEvaluation note* Diagnosis Type 2 diabetes mellitus without complication, with long-term current use of insulin- Primary Primary hypertension (CMS/HCC) Unspecified essential hypertension 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 (CMS/HCC) PAD (peripheral artery disease) (CMS/HCC) Unspecified peripheral vascular disease Iron deficiency anemia, unspecified iron deficiency anemia type Lumbosacral pain Encounter for subsequent annual wellness visit (AWV) in Medicare patient- Primary assisted (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 of insulin (Z79.4) Peripheral vascular disease, unspecified (I73.9) Peripheral vascular disease, unspecified Mixed hyperlipidemia (CMS/HCC) Mixed hyperlipidemia Iron deficiency anemia, unspecified iron deficiency anemia type Type 2 diabetes mellitus without complication, with long-term current use of insulin COPD, moderate (CMS/HCC) Primary hypertension (CMS/HCC) Unspecified essential hypertension 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 (CMS/HCC) PAD (peripheral artery disease) (CMS/HCC) Unspecified peripheral vascular disease Nonrheumatic mitral valve regurgitation Riley's esophagus with dysplasia Benign prostatic hyperplasia with lower urinary tract symptoms, symptom details unspecified Primary hypertension (CMS/HCC)- Primary Unspecified essential hypertension Type 2 diabetes mellitus without complication, with long-term current use of insulin 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 (CMS/HCC)- Primary Type 2 diabetes mellitus with other specified complication Male erectile dysfunction, unspecified Type 2 diabetes mellitus 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 (CMS/HCC) Acute cough Primary hypertension (CMS/HCC) Unspecified essential hypertension Paroxysmal atrial fibrillation (CMS/HCC) Atrial fibrillation Type 2 diabetes mellitus without complication, with long-term current use of insulin 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 (CMS/HCC)- Primary Other [...] peripheral vascular disease 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 (CMS/HCC) Riley's [...] (CMS/HCC) Atrial fibrillation 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 (CMS/HCC) Primary hypertension ([facility]/HCC) Unspecified essential hypertension PAD (peripheral artery disease) ([facility]/HCC) Unspecified peripheral vascular disease Iron deficiency anemia, unspecified iron deficiency anemia type Mixed hyperlipidemia (CMS/HCC) Mixed hyperlipidemia Primary insomnia Persistent disorder of initiating or maintaining sleep Encounter for subsequent annual wellness visit (AWV) in Medicare patient- Primary Centrilobular emphysema (CMS/HCC) Paroxysmal atrial fibrillation ([facility]/HCC) Atrial fibrillation Bilateral carotid artery disease, unspecified type ([facility]) Primary hypertension ([facility]) Unspecified essential hypertension Type 2 diabetes mellitus without complication, with long-term current use of insulin Type 2 diabetes mellitus with other specified complication, with long-term current use of insulin Mixed hyperlipidemia ([facility]) Mixed hyperlipidemia Dizziness and giddiness documented in this encounter [facility] [facility] HealthcareEvaluation note* Diagnosis Type 2 diabetes mellitus without complication, with long-term current use of insulin (HCC)- Primary Primary hypertension Unspecified essential hypertension 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 PAD (peripheral artery disease) Unspecified peripheral vascular disease Iron deficiency anemia, unspecified iron deficiency anemia type Lumbosacral pain Encounter for subsequent annual wellness visit (AWV) in Medicare patient- Primary assisted (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 of insulin (Z79.4) Peripheral vascular disease, unspecified (I73.9) Peripheral vascular disease, unspecified Mixed hyperlipidemia Mixed hyperlipidemia Iron deficiency anemia, unspecified iron deficiency anemia type Type 2 diabetes mellitus without complication, with long-term current use of insulin (HCC) COPD, moderate (HCC) Primary hypertension Unspecified essential hypertension 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 PAD (peripheral artery disease) Unspecified peripheral vascular disease Nonrheumatic mitral valve regurgitation Riley's esophagus with dysplasia Benign prostatic hyperplasia with lower urinary tract symptoms, symptom details unspecified Primary hypertension- Primary Unspecified essential hypertension Type 2 diabetes mellitus without complication, with long-term current use of insulin (HCC) 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- Primary Type 2 diabetes mellitus with other specified complication (HCC) Male erectile dysfunction, unspecified Type 2 diabetes mellitus 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 (HCC) Acute cough Primary hypertension Unspecified essential hypertension Paroxysmal atrial fibrillation (HCC) Atrial fibrillation Type 2 diabetes mellitus without complication, with long-term current use of insulin (HCC) 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- Primary Other thrombophilia [...] peripheral vascular disease 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 Riley's esophagus [...] (HCC) Atrial fibrillation 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 Primary hypertension Unspecified [...] of insulin (HCC) documented in this encounter [facility] HealthcareEvaluation note* Diagnosis Type 2 diabetes mellitus without complication, with long-term current use of insulin (HCC)- Primary Primary hypertension Unspecified essential hypertension 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 PAD (peripheral artery disease) Unspecified peripheral vascular disease Iron deficiency anemia, unspecified iron deficiency anemia type Lumbosacral pain Encounter for subsequent annual wellness visit (AWV) in Medicare patient- Primary assisted (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 of insulin (Z79.4) Peripheral vascular disease, unspecified (I73.9) Peripheral vascular disease, unspecified Mixed hyperlipidemia Mixed hyperlipidemia Iron deficiency anemia, unspecified iron deficiency anemia type Type 2 diabetes mellitus without complication, with long-term current use of insulin (HCC) COPD, moderate (HCC) Primary hypertension Unspecified essential hypertension 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 PAD (peripheral artery disease) Unspecified peripheral vascular disease Nonrheumatic mitral valve regurgitation Riley's esophagus with dysplasia Benign prostatic hyperplasia with lower urinary tract symptoms, symptom details unspecified Primary hypertension- Primary Unspecified essential hypertension Type 2 diabetes mellitus without complication, with long-term current use of insulin (HCC) 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- Primary Type 2 diabetes mellitus with other specified complication (HCC) Male erectile dysfunction, unspecified Type 2 diabetes mellitus 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 (HCC) Acute cough Primary hypertension Unspecified essential hypertension Paroxysmal atrial fibrillation (HCC) Atrial fibrillation Type 2 diabetes mellitus without complication, with long-term current use of insulin (HCC) 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- Primary Other thrombophilia [...] peripheral vascular disease 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 Riley's esophagus [...] (HCC) Atrial fibrillation 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 Primary hypertension Unspecified [...] (HCC) Atrial fibrillation documented in this encounter [facility] HealthcareEvaluation note* Diagnosis Type 2 diabetes mellitus without complication, with long-term current use of insulin (HCC)- Primary Primary hypertension Unspecified essential hypertension 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 PAD (peripheral artery disease) Unspecified peripheral vascular disease Iron deficiency anemia, unspecified iron deficiency anemia type Lumbosacral pain Encounter for subsequent annual wellness visit (AWV) in Medicare patient- 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 (Z79.4) Peripheral vascular disease, unspecified (I73.9) Peripheral vascular disease, unspecified Mixed hyperlipidemia Mixed hyperlipidemia Iron deficiency anemia, unspecified iron deficiency anemia type Type 2 diabetes mellitus without complication, with long-term current use of insulin (HCC) COPD, moderate (HCC) Primary hypertension Unspecified essential hypertension 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 PAD (peripheral artery disease) Unspecified peripheral vascular disease Nonrheumatic mitral valve regurgitation Riley's esophagus with dysplasia Benign prostatic hyperplasia with lower urinary tract symptoms, symptom details unspecified Primary hypertension- Primary Unspecified essential hypertension Type 2 diabetes mellitus without complication, with long-term current use of insulin (HCC) 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- Primary Type 2 diabetes mellitus with other specified complication (HCC) Male erectile dysfunction, unspecified Type 2 diabetes mellitus 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 (HCC) Acute cough Primary hypertension Unspecified essential hypertension Paroxysmal atrial fibrillation (HCC) Atrial fibrillation Type 2 diabetes mellitus without complication, with long-term current use of insulin (HCC) 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- Primary Other thrombophilia [...] peripheral vascular disease 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 Riley's esophagus [...] (HCC) Atrial fibrillation 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 Primary hypertension Unspecified [...] available for this section [facility] Discharge instructions No data available for this section [facility] InstructionsNot on filedocumented in this encounter [facility]ructionsNot on filedocumented in this encounter [facility]ructionsNot on filedocumented in this encounter [facility]ructionsNot on filedocumented in this encounter [facility] SystemInstructionsNot on filedocumented in this encounter [facility] SystemProgress note No data available for this section [facility] Reason for visit Narrative* Consultation (Routine) - Pending Review Specialty Diagnoses / Procedures Referred By Kendra healy Referred To Contact Cardiac Rehabilitation Diagnoses Stented coronary artery Procedures Ambulatory referral to Cardiac Rehabilitation ([facility]) Natasha Campo MD [address] [facility] [address] [facility] [place] [address] Phone: tel: fax: [facility] [address] [place] [address] Phone: tel: fax:[phone] Referral ID Status Reason Start Date Expiration Date Visits Requested Visits Authorized [id number] Pending Review Specialty Services Required 12/06/2023 12/05/2024 36 36 [facility] Narrative* Consultation (Routine) - Closed Specialty Diagnoses / Procedures Referred By Contac t Referred To Contact Cardiac Rehabilitation Diagnoses Stented coronary artery Procedures Ambulatory referral to Cardiac Rehabilitation ([facility]) Natasha Campo MD [address] [facility] [address] [place] [address] Phone: tel: fax: [facility] [address] [place] [address] Phone: tel:[phone] fax:[phone] Referral ID Status Reason Start Date Expiration Date V isits Requested Visits Authorized [id number] Closed Specialty Services Required 12/06/2023 12/05/2024 36 36 [facility] for visit Narrative* Consultation (Routine) - Authorized Specialty Diagnoses / Procedures Referred By Contac t Referred To Contact Cardiac Rehabilitation Diagnoses Stented coronary artery Procedures Ambulatory referral to Cardiac Rehabilitation ([facility]) Natasha Campo MD [address] [facility] [address] [place] [address] [facility] Billing [address] [place] [address] Referral ID Status Reason Start Date Expiration Date Visits Requested Visits Authorized [id number] Authorized Specialty Services Required 12/06/2023 12/05/2024 36 36 [facility] for visit Narrative* Consultation (Routine) - Authorized Specialty Diagnoses / Procedures Referred By Contac t Referred To Contact Cardiac Rehabilitation Diagnoses Stented coronary artery Procedures Ambulatory referral to Cardiac Rehabilitation ([facility]) Natasha Campo MD [address] [facility] [address] [place] [address] Phone: tel: fax: [facility] [address] [place] [address] Phone: tel:[phone] fax:[phone] Referral ID Status Reason Start Date Expiration Date Visits Requested Visits Authorized [id number] Authorized Specialty Services Required 12/06/2023 12/05/2024 36 [...] and content) DATE CREATED AUTHOR 03/08/2021 [facility] DATE CREATED AUTHOR AUTHOR'S ORGANIZ ATION 06/20/2022 [facility] DATE CREATED AUTHOR AUTHOR'S ORGANIZ ATION 03/27/2024 [facility] DATE CREATED AUTHOR AUTHOR'S ORGANIZ ATION 04/10/2024 [facility] DATE CREATED AUTHOR AUTHOR'S ORGANIZ ATION 04/15/2024 [facility] DATE CREATED AUTHOR AUTHOR'S ORGANIZ ATION 07/14/2024 [facility] DATE CREATED AUTHOR AUTHOR'S ORGANIZ ATION 07/19/2024 [facility] [employer] [facility] DATE CREATED AUTHOR AUTHOR'S ORGANIZ ATION 07/22/2024 [facility] DATE CREATED AUTHOR AUTHOR'S ORGANIZ ATION 07/23/2024 [facility] [place] [facility] DATE CREATED AUTHOR AUTHOR'S ORGANIZ ATION 09/28/2024 [facility] DATE CREATED AUTHOR AUTHOR'S ORGANIZ ATION 11/26/2024 [facility] Patient Care team informatio n (unrecognized section and content) High Worker Relationship Specialty Start Date End Date Prabhjot Villatoro MD [address] [place] [address] PCP - General Family Medicine 04/06/23 Marisol Boyce NP [address] [place] [address] Nurse Practitioner Family Medicine 03/28/22 High Worker Relationship Specialty Start Date End Date Prabhjot Villatoro MD [address] [place] [phone] PCP - General Family Medicine 04/06/23 Marisol Boyce NP [address] [place] [address] Nurse Practitioner Family Medicine 03/28/22 High Worker Relationship Specialty Start Date End Date Prabhjot Villatoro MD [address] [place] [address] PCP - General Family Medicine 06/07/23 Marisol Boyce NP [address] [place] [address] Nurse Practitioner Family Medicine 03/28/22 Marisol Boyce NP [address] [place] [address] Nurse Practitioner Family Medicine 06/07/23 High Worker Relationship Specialty Start Date End Date Prabhjot Villatoro MD [address] [place] [address] PCP - General Family Medicine 06/07/23 Marisol Boyce NP [address] [place] [address] Nurse Practitioner Family Medicine 03/28/22 Marisol Boyce NP [address] [place] [address] Nurse Practitioner Family Medicine 06/07/23 High Worker Relationship Specialty Start Date End Date Prabhjot Villatoro MD [address] [place] [address] PCP - General Family Medicine 06/07/23 Marisol Boyce NP [address] [place] [address] Nurse Practitioner Family Medicine 03/28/22 Marisol Boyce NP [address] [place] [address] Nurse Practitioner Family Medicine 06/07/23 High Worker Relationship Specialty Start Date End Date Prabhjot Villatoro MD [address] [place] [address] PCP - General Family Medicine 06/07/23 Marisol Boyce NP [address] [place] [address] Nurse Practitioner Family Medicine 03/28/22 Marisol Boyce NP [address] [place] [address] Nurse Practitioner Family Medicine 06/07/23 High Worker Relationship Specialty Start Date End Date Prabhjot Villatoro MD [address] [place] [address] PCP - General Family Medicine 06/07/23 Marisol Boyce NP [address] [place] [address] Nurse Practitioner Family Medicine 03/28/22 Marisol Boyce NP [address] [place] [address] Nurse Practitioner Family Medicine 06/07/23 High Worker Relationship Specialty Start Date End Date Prabhjot Villatoro MD [address] [place] [address] PCP - General Family Medicine 06/07/23 Marisol Boyce NP [address] [place] [address] Nurse Practitioner Family Medicine 03/28/22 Marisol Boyce NP [address] [place] [address] Nurse Practitioner Family Medicine 06/07/23 High Worker Relationship Specialty Start Date End Date Prabhjot Villatoro MD [address] [place] [address] PCP - General Family Medicine 06/07/23 Marisol Boyce NP [address] [place] [address] Nurse Practitioner Family Medicine 03/28/22 Marisol Byoce NP [address] [place] [address] Nurse Practitioner Family Medicine 06/07/23 High Worker Relationship Specialty Start Date End Date Prabhjot Villatoro MD [address] [place] [address] PCP - General Family Medicine 06/07/23 Marisol Boyce NP [address] [place] [address] Nurse Practitioner Family Medicine 03/28/22 Marisol Boyce NP [address] [place] [address] Nurse Practitioner Family Medicine 06/07/23 High Worker Relationship Specialty Start Date End Date Prabhjot Villatoro MD [address] [place] [address] PCP - General Family Medicine 06/07/23 Marisol Boyce NP [address] [place] [address] Nurse Practitioner Family Medicine 03/28/22 Marisol Boyce NP [address] [place] [address] Nurse Practitioner Family Medicine 06/07/23 High Worker Relationship Specialty Start Date End Date Prabhjot Villatoro MD [address] [place] [address] PCP - General Family Medicine 06/07/23 Marisol Boyce NP [address] [place] [address] Nurse Practitioner Family Medicine 03/28/22 Marisol Boyce NP [address] [place] [address] Nurse Practitioner Family Medicine 06/07/23 High Worker Relationship Specialty Start Date End Date Marisol Boyce APRN-POINT OF CARE SPECIALIST PCP - General Nurse Practitioner 10/16/18 High Worker Relationship Specialty Start Date End Date Marisol Boyce, LOSS PREVENTION AND SAFETY MANAGER-POINT OF CARE SPECIALIST PCP - General Nurse Practitioner 10/16/18 High Worker Relationship Specialty Start Date End Date Prabhjot Villatoro MD [address] [place] [address] PCP - General Family Medicine 06/07/23 Marisol Boyce NP [address] [place] [address] Nurse Practitioner Family Medicine 03/28/22 Marisol Boyce NP [address] [place] [address] Nurse Practitioner Family Medicine 06/07/23 High Worker Relationship Specialty Start Date End Date Marisol Boyce APRN-POINT OF CARE SPECIALIST PCP - General Nurse Practitioner 10/16/18 High Worker Relationship Specialty Start Date End Date Prabhjot Villatoro MD [address] [place] [address] PCP - General Family Medicine 06/07/23 Marisol Boyce NP [address] [place] [address] Nurse Practitioner Family [facility] 03/28/22 Marisol Boyce NP [address] [place] [address] Nurse Practitioner Family Medicine 06/07/23 Team Status: Inactive Member Role Status Dawson Mauricio DO Attending Provider Active Start: April 11, 2024 End: April 11, 2024 High Worker Relationship Specialty Start Date End Date Marisol Boyce APRN-CNP PCP - General Nurse Practitioner 10/16/18 High Worker Relationship Specialty Start Date End Date Marisol Boyce APRN-POINT OF CARE SPECIALIST PCP - General Nurse Practitioner 10/16/18 High Worker Relationship Specialty Start Date End Date Marisol Boyce [facility] PCP - General Nurse Practitioner 10/16/18 High Worker Relationship Specialty Start Date End Date Marisol Boyce [facility] PCP - General Nurse Practitioner 10/16/18 High Worker Relationship Specialty Start Date End Date Marisol Boyce [facility] PCP - General Nurse Practitioner 10/16/18 High Worker Relationship Specialty Start Date End Date Marisol Boyce [facility] PCP - General Nurse Practitioner 10/16/18 High Worker Relationship Specialty Start Date End Date Marisol Boyce [facility] PCP - General Nurse Practitioner 10/16/18 High Worker Relationship Specialty Start Date End Date Marisol Boyce [facility] PCP - General Nurse Practitioner 10/16/18 High Worker Relationship Specialty Start Date End Date Marisol Boyce [facility] PCP - General Nurse Practitioner 10/16/18 High Worker Relationship Specialty Start Date End Date Marisol Boyce [facility] PCP - General Nurse Practitioner 10/16/18 High Worker Relationship Specialty Start Date End Date Prabhjot Villatoro MD [address] [place] [address] PCP - General Family Medicine 06/07/23 Marisol Boyce NP [address] [place] [address] PCP - ACO Reach 05/04/24 Marisol Boyce NP [address] [place] [address] Nurse Practitioner Family Medicine 03/28/22 Marisol Boyce NP [address] [place] [address] Nurse Practitioner Family Medicine 06/07/23 High Worker Relationship Specialty Start Date End Date Marisol Boyce APRN-POINT OF CARE SPECIALIST PCP - General Nurse Practitioner 10/16/18 High Worker Relationship Specialty Start Date End Date Marisol Boyce APRN-POINT OF CARE SPECIALIST PCP - General Nurse Practitioner 10/16/18 High Worker Relationship Specialty Start Date End Date Marisol Boyce LOSS PREVENTION AND SAFETY MANAGER-POINT OF CARE SPECIALIST PCP - General Nurse Practitioner 10/16/18 High Worker Relationship Specialty Start Date End Date Marisol Boyce APRN-POINT OF CARE SPECIALIST PCP - General Nurse Practitioner 10/16/18 High Worker Relationship Specialty Start Date End Date Marisol Boyce, LOSS PREVENTION AND SAFETY MANAGER-POINT OF CARE SPECIALIST PCP - General Nurse Practitioner 10/16/18 High Worker Relationship Specialty Start Date End Date Marisol Boyce LOSS PREVENTION AND SAFETY MANAGERBO[facility] PCP - General Nurse Practitioner 10/16/18 High Worker Relationship Specialty Start Date End Date Marisol Boyce, LOSS PREVENTION AND SAFETY MANAGERBOSTON [facility] FOR [facility]ABLES PCP - General Nurse Practitioner 10/16/18 High Worker Relationship Specialty Start Date End Date Marisol Boyce, LOSS PREVENTION AND SAFETY MANAGERBO[facility]ON [facility] FOR [facility]ABLES PCP - General Nurse Practitioner 10/16/18 High Worker Relationship Specialty Start Date End Date Prabhjot Villatoro MD [address] [place] [address] PCP - General Family Medicine 06/07/23 Marisol Boyce NP [address] [place] [address] PCP - ACO Reach 05/04/24 Marisol Boyce NP [address] [place] [address] Nurse Practitioner Family Medicine 03/28/22 Marisol Boyce NP [address] [place] [address] Nurse Practitioner Family Medicine 06/07/23 High Worker Relationship Specialty Start Date End Date Prabhjot Villatoro MD [address] [place] [address] PCP - General Family Medicine 06/07/23 Marisol Boyce NP [address] [place] [address] PCP - ACO Reach 05/04/24 Marisol Boyce NP [address] [place] [address] Nurse Practitioner Family Medicine 03/28/22 Marisol Boyce NP [address] [place] [address] Nurse Practitioner Family Medicine 06/07/23 High Worker Relationship Specialty Start Date End Date Prabhjot Villatoro MD [address] [place] [address] PCP - General Family Medicine 06/07/23 Marisol Boyce NP [address] [place] [address] PCP - ACO Reach 05/04/24 Marisol Boyce NP [address] [place] [address] Nurse Practitioner Family Medicine 03/28/22 Marisol Boyce NP [address] [place] [address] Nurse Practitioner Family Medicine 06/07/23 High Worker Relationship Specialty Start Date End Date Prabhjot Villatoro MD [address] [place] [address] PCP - General Family Medicine 06/07/23 Marisol Boyce NP [address] [place] [address] PCP - ACO Reach 05/04/24 Marisol Boyce NP [address] [place] [address] Nurse Practitioner Family Medicine 03/28/22 Marisol Boyce NP [address] [place] [address] Nurse Practitioner Family Medicine 06/07/23 High Worker Relationship Specialty Start Date End Date Prabhjot Villatoro MD [address] [place] [address] PCP - General Family Medicine 06/07/23 Marisol Boyce NP [address] [place] [address] PCP - ACO Reach 05/04/24 Marisol Boyce NP [address] [place] [address] Nurse Practitioner Family Medicine 03/28/22 Marisol Boyce NP [address] [place] [address] Nurse Practitioner Family Medicine 06/07/23 High Worker Relationship Specialty Start Date End Date Prabhjot Villatoro MD [address] [place] [address] PCP - General Family Medicine 06/07/23 Marisol Boyce NP [address] [place] [address] PCP - ACO Reach 05/04/24 Marisol Boyce NP [address] [place] [address] Nurse Practitioner Family Medicine 03/28/22 Marisol Boyce NP [address] [place] [address] Nurse Practitioner Family Medicine 06/07/23 High Worker Relationship Specialty Start Date End Date Prabhjot Villatoro MD [address] [place] [address] PCP - General Family Medicine 06/07/23 Marisol Boyce NP [address] [place] [address] PCP - ACO Reach 05/04/24 Marisol Boyce NP [address] [place] [address] Nurse Practitioner Family Medicine 03/28/22 Marisol Boyce NP [address] [place] [address] Nurse Practitioner Family Medicine 06/07/23 High Worker Relationship Specialty Start Date End Date Prabhjot Villatoro MD [address] [place] [address] PCP - General Family Medicine 06/07/23 Marisol Boyce NP [address] [place] [address] PCP - ACO Reach 05/04/24 Marisol Boyce NP [address] [place] [address] Nurse Practitioner Family Medicine 03/28/22 Marisol Boyce NP [address] [place] [address] Nurse Practitioner Family Medicine 06/07/23 High Worker Relationship Specialty Start Date End Date Prabhjot Villatoro MD [address] [place] [phone] PCP - General Family Medicine 06/07/23 Marisol Boyce NP [address] [place] [phone] PCP - ACO Reach 05/04/24 Marisol Boyce NP [address] [place] [phone] Nurse Practitioner Family Medicine 03/28/22 Marisol Boyce NP [address] [place] [phone] Nurse Practitioner Family Medicine 06/07/23 High Worker Relationship Specialty Start Date End Date Prabhjot Villatoro MD [address] [place] [phone] PCP - General Family Medicine 06/07/23 Marisol Boyce NP [address] [place] [phone] PCP - ACO Reach 05/04/24 Marisol Boyce NP [address] [place] [phone] Nurse Practitioner Family Medicine 03/28/22 Marisol Boyce NP [address] [place] [phone] Nurse Practitioner Family Medicine 06/07/23 High Worker Relationship Specialty Start Date End Date Prabhjot Villatoro MD [address] [place] [phone] PCP - General Family Medicine 06/07/23 Marisol Boyce NP [address] [place] [phone] PCP - ACO Reach 05/04/24 Marisol Boyce NP [address] [place] [address] Nurse Practitioner Family Medicine 03/28/22 Marisol Boyce NP [address] [place] [phone] Nurse Practitioner Family Medicine 06/07/23 High Worker Relationship Specialty Start Date End Date Prabhjot Villatoro MD [address] [place] [phone] PCP - General Family Medicine 06/07/23 Marisol Boyce NP [address] [place] [phone] PCP - ACO Reach 05/04/24 Marisol Boyce NP [address] [place] [phone] Nurse Practitioner Family Medicine 03/28/22 Marisol Boyce NP [address] [place] [phone] Nurse Practitioner Family Medicine 06/07/23 Reason for Visit (unrecogniz ed section and content) Reason Comments Med Refill Reason Comments Follow-up Update H&P, EGD/[place] n scheduled 04/11/24 at [facility] Reason Comments Colon Cancer Screening DUE FOR 5 YEAR RE CALL, LAST COLON 10-26-18 Specialty Diagnoses / Procedures Referred By Kendra healy Referred To Contact General Surgery Diagnoses Colon cancer screening Tubulovillous adenoma of colon Procedures AR OFFICE OUTPATIENT VISIT 60-74 MINS HIGH MDM [id number] (SNOMED CT) - AMB REFERRAL TO GENERAL SURGERY Marisol Boyce, LOSS PREVENTION AND SAFETY MANAGER-POINT OF CARE SPECIALIST [address] [place] [address] Phone: tel: fax: Sabino Mauricio DO [facility] [place] [address] Phone: tel: fax: Referral ID Status Reason Start Date Expiration Date Visits Re quested Visits Authorized [id number] Closed 02/15/2024 08/13/2024 1 1 Reason Comments [...] BE BASED ON THE PRIMARY CLINICAL RECORDS. [employer] provides no warranty or guarantee of the accuracy or completeness of information in this document.
[2024-11-28 08:08] LABS: Transferrin 279 mg/dL (177-329)
[2024-11-28] MEDS: AMIODARONE HCL 200 MG TABLET PO (08:31)
[2024-11-28] MEDS: ENSURE HP 237 ML LIQUID PO (08:31)
[2024-11-28] MEDS: CANAGLIFLOZIN 100 MG TABLET PO (08:32)
--- NOTE | 2024-11-28 09:05 | CM.NOTE ---
Rounds made with Dr. Carbajal, pt continues with dizziness upon standing. Pt will get another unit of PRBC's today and possible discharge this afternoon and f/u with PCP. Dr. Carbajal discussed with pt about oral iron at discharge. Pt verbalizes understanding.
--- NOTE | 2024-11-28 11:12 | SWNOTE1 ---
Important Message from Medicare reviewed and discussed with patient. Pt. verbalized understanding and signed the form. Original given to patient and copy placed in patient?s chart.
--- NOTE | 2024-11-28 11:12 | SWNOTE1 ---
SW met with pt to discuss needs. Pt lives at home with . He is independent and has no services coming in. Pt has no anticipated discharge needs at this time. SW to follow as needed.
--- NOTE | 2024-11-28 13:30 | CM.NOTE ---
Pt provided with outpatient lab slip for repeat H&H on Sunday 12/03. Faxed order to lab and copy placed in pt's chart.
--- NOTE | 2024-11-28 13:40 | PM.DS1 ---
DS: Providers Provider Date of admission: 11/27/24 13:50 Primary care physician: Marisol Boyce NP DS: Summary Hospital Course Hospital Course: Mr Hickman is a 79-year-old male who was admitted to hospital the afternoon of November 27 with a chief complaint of shortness of breath with exertion and feeling tired all the time. He on routine lab workup he was found to have an anemia with hemoglobin of 7.1. He was admitted for symptomatic anemia. There is absolutely no evidence of any GI blood loss, please see my H&P for full dictation on that. His home meds were continued including his Xarelto and aspirin. He did receive 2 units of PRBC. After the second unit his symptoms almost completely subsided, he did get chest slightly dizzy when he first stood up however resolved almost immediately. On lab workup his transaminases were slightly elevated on admission which did trend down to normal, his hepatitis panel was negative. Iron studies were sent and it showed iron deficiency anemia superimposed on top of anemia of chronic disease. Do recommend being discharged on oral iron and if he cannot tolerate this then iron infusions would be the next appropriate step however he has to prove that he cannot tolerate p.o. iron supplementation. His reticulocyte count was also checked and it was inappropriately normal. With the level of anemia he has I would have expected it to be much higher than that. Everything points towards unfortunately anemia, this was explained to the patient in detail on admission and again the day of discharge. He was discharged the afternoon of November 28 after he received his second unit of PRBC, no medication changes were made other than the addition of Senokot and oral iron supplementation. Time Spent with Patient Time attestation: Total time spent providing and/or coordinating discharge services: Exam Narrative Exam Narrative: General: Awake and alert, no acute distress HEENT: Normocephalic, atraumatic, no scleral icterus noted Lungs: Clear to auscultation bilaterally Cardiac: Regular rate and rhythm, no murmurs appreciated GI: Soft, nontender, regular bowel sounds. Extremities: Active and passive range of motion intact throughout, no edema Neuro: Cranial nerves II through XII intact, no focal deficits noted Skin: No rashes or lesions, no signs of jaundice Constitutional Vital Signs, click to edit/add: Last Vital Signs Temp 98.3 F 11/28/24 12:43 Pulse 64 11/28/24 12:43 Resp 16 11/28/24 12:43 BP 178/72 H 11/28/24 12:43 Pulse Ox 90 L 11/28/24 12:43 O2 Del Method Room Air 11/28/24 12:43 DS: Data Data Completed and Pending Labs on day of discharge: Labs from last 24 hours 11/28/24 11/27/24 11/27/24 05:09 20:00 15:00 WBC 6.2 RBC 3.09 L Hgb 8.0 L 8.2 L Hct 26.0 L 27.0 L MCV 84.1 MCH 25.9 MCHC 30.8 RDW 17.5 H Plt Count 168 MPV 10.6 Neut % (Auto) 64.5 Lymph % (Auto) 23.8 [place] % (Auto) 7.9 Eos % (Auto) 2.9 Baso % (Auto) 0.6 Neut # (Auto) 4.0 Lymph # (Auto) 1.5 [place] # (Auto) 0.5 Eos # (Auto) 0.2 Baso # (Auto) 0.0 Abs Immat Gran (auto) 0.02 Imm/Tot Granulo (auto) 0.3 Retic Count (auto) Sodium 141 Potassium 4.5 Chloride 108 H Carbon Dioxide 28.3 Anion Gap 9.2 BUN 29.0 H Creatinine 0.91 Est GFR ( Amer) >60 Est GFR (Non-Af Amer) >60 BUN/Creatinine Ratio 31.9 Glucose 175 H Calcium 8.6 Phosphorus 3.5 Magnesium 2.2 Iron TIBC % Saturation Transferrin Total Bilirubin 1.7 H AST 30 ALT 135 H Alkaline Phosphatase 105 Total Protein 6.2 L Albumin 3.1 L Globulin 3.1 Albumin/Globulin Ratio 1.0 Triglycerides 45 Cholesterol 78 LDL Cholesterol, Calc 25.0 VLDL Cholesterol 9.0 HDL Cholesterol 44 Cholesterol/HDL Ratio 1.8 Folate 23.80 Urine Color Lt. yellow Urine Clarity Clear Urine pH 6.0 Ur Specific [place] 1.010 Urine Protein Negative Urine Glucose (UA) >=1000 A Urine Ketones Negative Urine Occult Blood Negative Urine Nitrite Negative Urine Bilirubin Negative Urine Urobilinogen 0.2 Ur Leukocyte Esterase Negative Urine RBC 0-2 Urine WBC 0-2 A Ur Squamous Epith Cells Rare Urine Crystals None seen Urine Bacteria None seen Urine Casts None seen Urine Mucus None seen Ur Culture Indicated? No Hepatitis A IgM Ab Hep Bs Antigen Hep B Core IgM Ab Hepatitis C Antibody Hepatitis C Interp Blood Type Antibody Screen Crossmatch 11/27/24 11/27/24 13:24 11:27 WBC RBC Hgb Hct MCV MCH MCHC RDW Plt Count MPV Neut % (Auto) Lymph % (Auto) [place] % (Auto) Eos % (Auto) Baso % (Auto) Neut # (Auto) Lymph # (Auto) [place] # (Auto) Eos # (Auto) Baso # (Auto) Abs Immat Gran (auto) Imm/Tot Granulo (auto) Retic Count (auto) 2.53 Sodium Potassium Chloride Carbon Dioxide Anion Gap BUN Creatinine Est GFR ( Amer) Est GFR (Non-Af Amer) BUN/Creatinine Ratio Glucose Calcium Phosphorus 4.0 Magnesium Iron 14.0 L TIBC 339.0 % Saturation 4.1 Transferrin 279 Total Bilirubin AST ALT Alkaline Phosphatase Total Protein Albumin Globulin Albumin/Globulin Ratio Triglycerides Cholesterol LDL Cholesterol, Calc VLDL Cholesterol HDL Cholesterol Cholesterol/HDL Ratio Folate Urine Color Urine Clarity Urine pH Ur Specific [place] Urine Protein Urine Glucose (UA) Urine Ketones Urine Occult Blood Urine Nitrite Urine Bilirubin Urine Urobilinogen Ur Leukocyte Esterase Urine RBC Urine WBC Ur Squamous Epith Cells Urine Crystals Urine Bacteria Urine Casts Urine Mucus Ur Culture Indicated? Hepatitis A IgM Ab Negative Hep Bs Antigen Negative Hep B Core IgM Ab Negative Hepatitis C Antibody Non reactive Hepatitis C Interp Comment Blood Type B Positive Antibody Screen Negative Crossmatch See Detail Discharge Plan Discharge Disposition: Home, Self-Care Condition: Fair Discharge Medications: New ferrous sulfate [Iron (ferrous sulfate)] 325 mg (65 mg iron) tablet 325 mg PO DAILY Qty: 30 0RF sennosides-docusate sodium 8.6-50 mg tablet 1 tab-cap PO BID Qty: 60 0RF Continued (DME) OneTouch Verio test strips Strip MISCELLANEOUS tamsulosin 0.4 mg capsule 0.4 mg PO BEDTIME dapagliflozin propanediol [Farxiga] 10 mg tablet 10 mg PO DAILY aspirin 81 mg capsule 81 mg PO BEDTIME insulin glargine-yfgn [Semglee(insulin glarg-yfgn)Pen] 100 unit/mL (3 mL) insulin pen 30 unit SUBCUT BEDTIME omeprazole 40 mg capsule,delayed release(DR/EC) 40 mg PO DAILY rivaroxaban 20 mg tablet 20 mg PO QPM Rx Instructions: must administer with evening meal lisinopril 20 mg tablet 20 mg PO DAILY Rx Instructions: total of 25 mg per cardio amiodarone 200 mg tablet 200 mg PO DAILY atorvastatin 80 mg tablet 80 mg PO BEDTIME carvedilol 3.125 mg tablet 3.125 mg PO Q12H ezetimibe 10 mg tablet 10 mg PO BEDTIME metformin 500 mg tablet 500 mg PO BID Discontinued lisinopril 5 mg tablet 5 mg PO DAILY Patient Comments: total of 25 mg per cardio Print Language: Bangladeshi Patient Instructions: Iron Supplements (By mouth), Senna (By mouth), Anemia (DC) Forms: Portal Instructions Follow Up Appointments: 12/20 @ 10am with Marisol Boyce, RENTAL SALESPERSON [phone]
[2024-11-29 04:07] LABS: Vitamin B12 611 pg/mL (232-1245)
--- NOTE | 2024-11-30 10:40 | CM.DCFOLLOWU ---
1st attempt 11/30/24, no answer
--- NOTE | 2024-12-03 11:50 | CM.DCFOLLOWU ---
2nd attempt 12/03/24, no answer
--- NOTE | 2024-12-04 12:44 | CM.DCFOLLOWU ---
Person spoke with:patient How are you feeling?well How is your pain?none Did you understand your discharge instructions?yes Do you have any questions about your discharge instructions?no Were you given any prescriptions at discharge?yes Were you able to get your prescriptions filled?yes Do you understand how to take your medications as ordered?yes Do you have any questions about your follow up appointment and do you plan to keep your follow up appointment? no questions, they moved follow up with PCP to 12/12/24 Is there anything else that you would like to discuss?no Questions/Comments/Concerns/Other:none
--- OUTSIDE RECORDS SUMMARY | 2025-01-04 16:03 | XMS_ITS | CCD ---
Author Organization [facility] Care Team Providers Care Salesperson [employer] Name Role Phone MARISOL BOYCE Primary Care Physician Unavaila ble AICHHOLZ, TURKISH RUBBER MARISOL Admitting Unavailable AICHHOLZ, TURKISH RUBBER MARISOL Attending Unavailable AICHHOLZ, TURKISH RUBBER MARISOL Primary Care Unavailable AICHHOLZ, TURKISH RUBBER MARISOL Consulting Unavailable AICHHOLZ, TURKISH RUBBER MARISOL Admitting Unavailable AICHHOLZ, TURKISH RUBBER MARISOL Attending Unavailable AICHHOLZ, TURKISH RUBBER MARISOL Primary Care Unavailable AICHHOLZ, TURKISH RUBBER MARISOL Consulting Unavailable DR SANJAY REECE Consulting Unavailable ROSEANNA, MARCO Admitting Unavailable ROSEANNA, MARCO Attending Unavailable AICHHOLZ, TURKISH RUBBER MARISOL Primary Care Unavailable ROSEANNA, MARCO Consulting Unavailable AICHHOLZ, TURKISH RUBBER MARISOL Admitting Unavailable AICHHOLZ, TURKISH RUBBER MARISOL Attending Unavailable AICHHOLZ, TURKISH RUBBER MARISOL Primary Care Unavailable AICHHOLZ, TURKISH RUBBER MARISOL Consulting Unavailable FLOR, DWAIN Admitting Unavailable FLOR, DWAIN Attending Unavailable AICHHOLZ, TURKISH RUBBER MARISOL Primary Care Unavailable FLOR, DWAIN Consulting Unavailable Aichholz KILN BURNER HELPER, Marisol Unavailable Prabhjot Villatoro MD Primary Care Provider [phone] MARISOL BOYCE Primary Care Physician Aichholz KILN BURNER HELPER, Marisol Unavailable Prabhjot Villatoro MD Primary Care Provider Aichholz KILN BURNER HELPER, Marisol Unavailable Aichholz RAILROAD DISPATCHER-ELO Marisol J Primary Care Provider MARLIN KOCH Attending Unavailable CARLI MARISOL J Referring Unavailable MEDARDOHHOLZ, MARISOL J Primary Care Unavailable MARLIN KOCH Attending Unavailable MARISOL BOYCE Referring Unavailable MARISOL BOYCE Primary Care Unavailable Sabino Mauricio DO Attending Provider Sabino Mauricio Attending Unavailable Sabino Mauricio Admitting Unavailable Aichholz Marisol ARNOLD Unavailable Deja Perez Attending Unavailable MARISOL BOYCE Admitting Unavailable AICMARISOL CONWAY Attending Unavailable YAMILEX ARMSTRONG Admitting Unavailable EUGENIOYAMILEX HARRIS Attending Unavailable Fiona Beaver Attending Unavailable YAMILEX ARMSTRONG Attending Unavailable YAMILEX ARMSTRONG Admitting Unavailable AICHSINCERE, MARISOL Tolbert Attending Unavailable AICHMARISOL POST Admitting Unavailable AICHHOLZ, MARISOL Attending Unavailable AICHHOLZ, MARISOL Attending Unavailable AICHHOLZ, MARISOL Attending Unavailable AICHHOLZ, MARISOL Attending Unavailable AICHHOLZ, MARISOL Attending Unavailable AICHHOLZ, MARISOL Attending Unavailable AICHHOLZ, MARISOL Attending Unavailable ELTAHAWY, EHAB Attending Unavailable ELTAHAWY, EHAB Attending Unavailable Clem Daniels DO Attending Provider [phone] Lj Carbajal DO Attending Provider [phone] Marisol Boyce Primary Care Provider Marisol Boyce Attending Provider ELTAHAWY, EHAB A Referring Unavailable MARISOL BOYCE J Primary Care Unavailable ELTAHAWY, EHAB A Referring Unavailable AICHHOLTu, MARISOL J Primary Care Unavailable ELTAHAWY, EHAB A Referring Unavailable AICZORAIDA, MARISOL J Primary Care Unavailable ELTAHAWY, EHAB A Referring Unavailable AICHHOLTu, MARISOL J Primary Care Unavailable ELTAHAWY, EHAB A Referring Unavailable AICHHOLTu, MARISOL J Primary Care Unavailable ELTAHAWY, EHAB A Referring Unavailable CHINOHOLTu, MARISOL J Primary Care Unavailable ELTAHAWY, EHAB A Referring Unavailable MEDARDOHHOLTu, MARISOL J Primary Care Unavailable ELTAHAWY, EHAB A Referring Unavailable AICSanchezHOLTu, MARISOL J Primary Care Unavailable ELTAHAWY, EHAB [...] Care Unavailable ELTAHAWY, EHAB A Referring Unavailable MARISOL BOYCE J Primary Care Unavailable ELTAHAWY, EHAB A Referring Unavailable AICZORAIDA, MARISOL J Primary Care Unavailable ELTAHAWY, EHAB A Referring Unavailable AICHHOLTu, MARISOL J Primary Care Unavailable ELTAHAWY, EHAB A Referring Unavailable AICHHOLTu, MARISOL J Primary Care Unavailable ELTAHAWY, EHAB A Referring Unavailable AICHHOLTu, MARISOL J Primary Care Unavailable ELTAHAWY, EHAB A Referring Unavailable AICHHOLTu, MARISOL J Primary Care Unavailable AICZORAIDA, MARISOL J Referring Unavailable CARLI, MARISOL J Primary Care Unavailable MARISOL BOYCE Primary Care Unavailable ZOEY MARX Referring Unavailable MARISOL BOYCE Referring Unavailable MARISOL BOYCE Primary Care Unavailable ZOEY MARX Attending Unavailable Carli KILN BURNER HELPER-CMarisol Primary Care Provider Carli SALAZARCMarisol Attending Provider Zoey Marx PA-C Attending Provider Jackson Mcfarland DO Attending Provider [phone] Medications Current Medications Medication Drug Class(es) Dates Sig (Normalized) Sig (Original) [id number] 200 actuat albuterol 0.09 mg/actuat metered dose inhaler (20 sources) beta2-Adrenergic Agonist Start: 07-01-2022 take 2 puff(s) by mouth every six hours as needed for wheezing albuterol (PROVENTIL HFA;VENTOLIN HFA) 90 mcg/actuation inhaler Indications: COPD, moderate ([facility]) INHALE 2 PUFFS BY MOUTH EVERY 6 HOURS NEEDED FOR WHEEZING 54 g 1 07/01/2022 Active amiodarone hydrochloride 200 mg oral tablet (20 sources) Antiarrhythmic Start: 12-05-2024 take 1 tablet by mouth once daily Start: 10-07-2023 End: 01-12-2024 take 1 tablet [...] take 1 tablet by mouth twice daily Start: 10-07-2023 End: 01-13-2024 take 1 tablet by mouth in the morning apixaban (Eliquis) 5 MG tablet Take 5 mg by mouth in the morning and 5 mg in the evening. 10/07/2023 01/13/2024 Active aspirin 81 mg oral tablet (20 sources) Platelet Aggregation Inhibitor, Nonsteroidal Anti-inflammatory Drug Start: 12-05-2024 take 1 tablet by mouth once daily Start: 10-07-2023 Aspirin Low Do se 81 [...] take 1 tablet by mouth once daily take 1 tablet by mouth in the mo rning atorvastatin (Lipitor) 80 MG tablet Take 80 mg by mouth in the morning. Active carvedilol 3.125 mg oral tablet (20 sources) alpha-Adrenergic Cesilia, beta-Adrenergic Cesilia Start: 12-05-2024 take 1 tablet by mouth twice daily at mealtime Start: 10-07-2023 take 1 tablet by allyn [...] Status: Ordered Repeat number: 1 Continuous Glucose Corporate Communications Associate (Dexcom G7 Corporate Communications Associate) device (8 sources) Start: 10-20-2023 End: 01-28-2024 Continuous Glucose Corporate Communications Associate (Dexcom G7 Corporate Communications Associate) device Indications: Type 2 diabetes mellitus without complication, with long-term current use of insulin ([facility]) 1 each Daily 1 each 1 10/20/2023 01/28/2024 Active Continuous Glucose Sensor (Dexcom G7 Sensor) misc (8 sources) Start: 10-20-2023 End: 01-18-2024 Continuous Glucose Sensor (Dexcom G7 Sensor) misc Indications: Type 2 diabetes mellitus without complication, with long-term current use of insulin ([facility]) 1 each Daily 12 each 4 10/20/2023 01/18/2024 Active dapagliflozin 5 mg oral tablet (20 sources) Sodium-Glucose Cotransporter 2 Inhibitor Start: 12-05-2024 take 1 tablet by mouth once daily Start: 07-11-2023 take 1 tablet by allyn th once daily Farxiga 10 mg oral tablet 10 mg = 1 tab(s), Oral, Daily, Refills(s) 0 Start Date: 07/11/23 Status: Ordered Repeat number: 1 dapagliflozin (F arxiga) 5 MG Take by mouth Active docusate sodium 50 mg / sennosides, assisted 8.6 mg oral tablet (5 sources) Start: 12-05-2024 End: 12-05-2024 take 1 tablet by mouth once daily at bedtime ezetimibe 10 mg oral tablet (20 sources) Dietary Cholesterol Absorption Inhibitor Start: 02-13-2024 End: 02-12-2025 take 1 tablet by mouth once daily Start: 10-07-2023 End: 01-12-2024 take 1 tablet by mouth at bedtime ezetimibe (Zetia) 10 MG tablet Take 10 mg by mouth at bedtime 10/07/2023 01/12/2024 Active ferrous sulfate 325 mg oral tablet (20 sources) Start: 12-05-2024 End: 12-05-2024 take 1 tablet by mouth once daily Start: 10-19-2023 End: 01-17-2024 take 1 tablet [...] 0 Active 3 ml insulin glargine 100 un t/ml pen injector (20 sources) Insulin Analog Start: 12-05-2024 Start: 04-04-2024 End: 07-03-2024 inject 50 [IU] by subcutaneous injection once daily, then inject 50 [IU] by subcutaneous injection once daily insulin glargine (Lantus SoloStar) 100 UNIT/ML pen Indications: Type 2 diabetes mellitus without complication, with long-term current use of insulin ([facility]) Inject 50 Units under the skin Daily [...] complication, with long-term current use of insulin ([facility]) Up to 50 units daily 15 each 1 02/15/2024 04/04/2024 Discontinued (Cost of medication) insulin glargine-yfgn (Semglee-yfgn) 100 UNIT/ML pen (2 sources) Start: 03-29-2024 End: 04-04-2024 insulin glargine-yfgn (Semglee-yfgn) 100 UNIT/ML pen Indications: Type 2 diabetes mellitus without complication, with long-term current use of insulin ([facility]) Will use up to 50 units daily 45 mL 1 03/29/2024 04/04/2024 Discontinued (Cost of medication) Start: 03-29-2024 insulin glargi ne-yfgn (Semglee-yfgn) 100 UNIT/ML pen Indications: Type 2 diabetes mellitus without complication, with long-term current use of insulin ([facility]) Will use up to 50 units daily 45 mL 1 03/29/2024 Active lisinopril 20 mg oral tablet (20 sources) Angiotensin Converting Enzyme Inhibitor Start: 12-05-2024 take 1 tablet by mouth once daily Start: 04-10-2024 lisinopril 20 MG tablet 20 [...] Biguanide Start: 12-05-2024 take 1 tablet by allyn th twice daily Start: 02-15-2024 End: 11-08-2024 take 1 tablet [...] in the morning. 03/05/2024 Discontinued (Therapy completed) ONETOUCH VERIO FLEX misc (20 sources) Start: 04-20-2019 End: 03-05-2024 ONETOUCH VERIO FLEX misc USE TO TEST BLOOD SUGAR TID DIRECTED 04/20/2019 03/05/2024 Discontinued (Therapy completed) Start: 04-20-2019 ONETOUCH VERIO FLEX misc USE TO TEST BLOOD SUGAR TID DIRECTED 04/20/2019 Active peg 3350-sod sulf,gxkc-tdk-kqw 178.7-7.3-0.5 gram recon soln (1 source) Start: 03-05-2024 End: 03-06-2024 peg 3350-sod sulf,cjct-vej-fww 178.7-7.3-0.5 gram recon soln Indications: Encounter for [...] THE SKIN EVERY DAY 04/04/2024 Active sennosides, assisted 8.6 mg oral tablet (15 sources) Start: [...] Daily, # 90 cap(s), Refills(s) 3, Pharmacy: [facility] #[id number], 77.8, kg, 06/18/22 9:54:00 EDT, Weight Dosing Start Date: 06/18/22 Status: Ordered Quantity: 90.0 Unit: cap(s) Repeat number: 4 take 1 capsule by [facility] every twenty-four hours at bedtime tamsulosin [...] 1 puff in the morning. 60 each 07/01/2022 03/05/2024 Discontinued (Therapy completed) Completed/Discontinued Medications Medication Drug Class(es) Dates Sig (Normalized) Sig (Original) omeprazole 40 mg delayed release oral capsule (20 sources) Proton Pump Inhibitor Start: 04-16-2024 End: 12-25-2024 take 1 capsule by mouth once daily Omeprazole 40 mg capsule,delayed release(DR/EC) Discontinued 40 MG PO Daily December 05, 2024 12:00am December 18, 2024 8:20am Start: 01-05-2022 End: 03-05-2024 take 1 capsule by mouth in the morning omeprazole (PriLOSEC) 20 mg capsule Take 1 capsule (20 mg total) by mouth in the morning. 01/05/2022 03/05/2024 Discontinued (Therapy completed) tadalafil 10 mg oral tablet (3 sources) Phosphodiesterase 5 Inhibitor Start: 07-11-2023 Cialis 10 mg Tab See Instructions, PRN for erectile dysfunction, 1-2 tab(s) 30-60mins prior to sexual activity. do not exceed 20mg in 48 hrs., # 10 tab(s), Refills(s) 5, Pharmacy: [facility] #[id number], 182, cm, 07/11/23 14:01:00 EDT, Height/Length Dosing, 76, kg, 07/11/23 14:01:00 EDT, Weight Dosing Start Date: 07/11/23 Status: Ordered Quantity: 10.0 Unit: tab(s) Repeat number: 6 Problems Active Problems Problem Classification Problem Date Documented Da te Episodic/Chronic Abdominal hernia (20 sources) Hiatal hernia; Translations: [Diaphragmatic hernia without [...] Chronic Conditions associated with dizziness or vertigo (20 sources) Dizziness and giddiness; Translations: [Dizziness and giddiness] Onset: 08-15-2024 08-15-2024 Episodic Coronary atherosclerosis and other heart disease (20 sources) Coronary arteriosclerosis; Translations: [History of myocardial infarction] Onset: 04-30-2022 03-12-2020 Chronic Deficiency and other anemia (5 sources) Anemia 03-12-2020 Episodic Deficiency and other anemia (7 sources) Iron deficiency anemia, unspecified; Translations: [IRON [...] symptoms] Onset: 06-18-2021 Chronic Malaise and fatigue (10 sources) Fatigue; Translations: [Other fatigue] Onset: 12-05-2024 03-12-2020 Episodic Miscellaneous mental health disorders (17 sources) Primary insomnia; Translations: [Primary insomnia] Onset: 05-15-2024 05-15-2024 Chronic Mood disorders (5 sources) Depressive disorder 03-12-2020 Chronic Osteoarthritis (20 sources) Osteoarthritis of left hip joint; Translations: [Unilateral primary osteoarthritis, left hip] Onset: 04-05-2019 04-05-2019 Chronic Other aftercare (1 source) Long-term current use of drug therapy; 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/anti platelets] Onset: 06-18-2022 Episodic Other and ill-defined heart disease (20 sources) Left ventricular thrombus; Translations: [Intracardiac thrombosis, not elsewhere classified] Onset: 11-10-2023 11-22-2023 Chronic Other and ill-defined heart disease (20 sources) Left ventricular aneurysm; Translations: [Aneurysm of heart] Onset: 11-10-2023 11-22-2023 Chronic Other and unspecified benign neoplasm (3 sources) Benign neoplasm of colon, unspecified; Translations: [Tubulovillous [...] testicle 03-13-2020 Episodic Other nervous system disorders (2 sources) Other chronic pain; Translations: [Other chronic pain] [...] for malignant neoplasm done] Onset: 07-11-2023 Episodic Other skin disorders (5 sources) Night [...] prostate cancer 03-13-2020 Episodic Residual codes; unclassified (3 sources) Insomnia; Translations: [Insomnia, unspecified] 12-05-2024 Episodic Screening [...] (1 source) Colon Cancer Screening Onset: 03-05-2024 Unclassified (1 source) Chronic bilateral low back pain without sciatica; Translations: [Chronic bilateral low back pain without sciatica] Onset: 09-30-2025 Past or Other Problems Problem Classification Problem [...] LOSS] Onset: 01-09-2022 Episodic Residual codes; unclassified (20 sources) Tobacco user; Translations: [Tobacco use] Onset: 06-07-2023 Resolved: 06-07-2023 06-07-2023 Episodic Results Test Name Value Interpretation Reference Range Facility [facility] 12-26-2024 TERESITA Telephone (RoboEdJUANY) KIMMY MCARTHUR ([id number]) 1945 M Date Time Provider Department 12/26/24 CHARISSA JAUREGUI During your visit today, we recorded the following information about you: Charissa Jauregui RN 12/26/2024 8:41 AM Signed MRI completed at [facility], reviewed by MM. Notified of degenerative changes. No signs of cancer. Encouraged to call PCP for further management. Appt with PCP next week to discuss. Denies any questions, needs or concerns for our care team at this time. Charissa Jauregui RN Allergies As of Date: 12/26/2024 (No Known Allergies) Date Reviewed: 12/25/2024 Reviewed by: Vani Del Castillo MA - Fully Assessed Reason for Visit: Results - Mri [3561] Prescriptions as of 12/26/2024 - FEROSUL 325 mg (65 mg iron) tablet Take 1 tablet by mouth once daily. - rivaroxaban (XARELTO) 20 mg tablet Take 20 mg by mouth once daily. - STIMULANT LAXATIVE PLUS 8.6-50 mg per tablet Take 1 tablet by mouth every 12 hours. - aspirin, enteric coated (ASPIRIN, ENTERIC COATED) 81 mg EC tablet Take 81 mg by mouth once daily. - metFORMIN (GLUCOPHAGE) 500 mg tablet Take 500 mg by mouth. - atorvastatin (LIPITOR) 80 mg tablet Take 80 mg by mouth once daily. - amiodarone (PACERONE) 200 mg tablet Take 200 mg by mouth once daily. - carvedilol (COREG) 3.125 mg tablet Take 3.125 mg by mouth two times a day with meals. - ezetimibe (ZETIA) 10 mg tablet Take 10 mg by mouth once daily. - dapagliflozin propanediol (FARXIGA) 10 mg tablet Take 10 mg by mouth daily with breakfast. - omeprazole (PRILOSEC) 40 mg capsule Take 40 mg by mouth once daily. Problem List As Of Date 12/26/2024 Noted Resolved Iron deficiency anemia [D50.9] 12/25/2024 Encounter Status:Closed by CHARISSA JAUREGUI on 12/26/24 Normal [facility] Absolute reticulocyte countO rdered By: ZOEY MARX on 12-25-2024 Reticulocytes (Bld) [#/Vol] 0.0002 10*3/uL High 0.018-0.100 [facility] Albumin [Mass/volume] in Ser um or PlasmaOrdered By: ZOEY MARX on 12-25-2024 Albumin [Mass/Vol] 3.69 g/dL 3.43-5.41 [facility] Anisocytosis LM Ql (Bld)Orde red By: Marisol Boyce on 12-25-2024 Anisocytosis Ql (Bld) Present [facility] Basophils Auto (Bld) [#/Vol] Ordered By: Marisol Boyce on 12-25-2024 Basophils (Bld) [#/Vol] 0.04 10*3/uL <0.11 [facility] Basophils/100 WBC Auto (Bld) Ordered By: Marisol Boyce on 12-25-2024 Basophils/100 WBC (Bld) 0.8 % [facility] Blood manual differential co mment interpretation narrativeOrdered By: Marisol Boyce on 12-25-2024 Manual differential comment Hans (Bld) [Interp] Auto [facility] CBC W Auto Differential pane l (Bld)on 12-25-2024 Anisocytosis Ql (Bld) Present Normal [facility] Comment on above: Order Comment: Speci men Type: BLOOD SPECIMEN Ordering Facility: [facility] Address: [address] [place] [address] Performed By: #### 2 885-2, 2131-11, 2283-10 #### [facility] CLIA [id number] [address] [place], [place] [address] [address] [facility] Basophils (Bld) [#/Vol] 0.04 10*3/uL Normal <0.11 [facility] Comment on above: Order Comment: Speci men Type: BLOOD SPECIMEN Ordering Facility: [facility] Address: [address] [place] [address] Performed By: #### 2 885-2, 2131-11, 2283-10 #### [facility] CLIA [id number] [address] [place] [address] [place] Basophils/100 WBC (Bld) 0.8 % Normal [facility] Comment on above: Order Comment: Speci men Type: BLOOD SPECIMEN Ordering Facility: [facility] Address: [address] [place] [address] Performed By: #### 2 885-2, 2131-11, 2283-10 #### [facility] CLIA [id number] [address] [place] [address] [place] Differential cell count method Nom (Bld) Auto Normal [facility] Comment on above: Order Comment: Speci men Type: BLOOD SPECIMEN Ordering Facility: [facility] Address: [address] [place] [address] Performed By: #### 2 885-2, 2131-11, 2283-10 #### [facility] CLIA [id number] [address] [place] [address] [place] Eosinophils (Bld) [#/Vol] 0.15 10*3/uL Normal <0.46 [facility] Comment on above: Order Comment: Speci men Type: BLOOD SPECIMEN Ordering Facility: [facility] Address: [address] [place] [address] Performed By: #### 2 885-2, 2131-11, 2283-10 #### [facility] CLIA [id number] [address] [place] [address] [place] Eosinophils/100 WBC (Bld) 2.9 % Normal [facility] Comment on above: Order Comment: Speci men Type: BLOOD SPECIMEN Ordering Facility: [facility] Address: [address] [place] [address] Performed By: #### 2 885-2, 2131-11, 2283-10 #### [facility] CLIA [id number] [address] [place] [address] [place] Erythrocyte distribution width (RBC) [Ratio] 22.5 % High 11.5-15.0 [facility] Comment on above: Order Comment: Speci men Type: BLOOD SPECIMEN Ordering Facility: [facility] Address: [address] [place] [address] Performed By: #### 2 885-2, 2131-11, 2283-10 #### [facility] CLIA [id number] [address] [place] [address] [place] Hematocrit (Bld) [Volume fraction] 34.5 % Low 39.0-51.0 [facility] Comment on above: Order Comment: Speci men Type: BLOOD SPECIMEN Ordering Facility: [facility] Address: [address] [place] [address] Performed By: #### 2 885-2, 2131-11, 2283-10 #### [facility] CLIA [id number] [address] [place] [address] [place] Hemoglobin (Bld) [Mass/Vol] 10.3 g/dL Low 13.0-17.0 [facility] Comment on above: Order Comment: Speci men Type: BLOOD SPECIMEN Ordering Facility: [facility] Address: [address] [place] [address] Performed By: #### 2 885-2, 2131-11, 2283-10 #### [facility] CLIA [id number] [address] [place] [address] [place] Immature granulocytes (Bld) [#/Vol] 10*3/uL Normal <0.10 [facility] Comment on above: Order Comment: Speci men Type: BLOOD SPECIMEN Ordering Facility: [facility] Address: [address] [place] [address] Performed By: #### 2 885-2, 2131-11, 2283-10 #### [facility] CLIA [id number] [address] [place], [place] [id number] [place] Immature granulocytes/100 WBC (Bld) 0.4 % Normal [facility] Comment on above: Order Comment: Speci men Type: BLOOD SPECIMEN Ordering Facility: [facility] Address: [address] [place] [address] Performed By: #### 2 885-2, 2131-11, 2283-10 #### [facility] CLIA [id number] [address] [place] [address] [place] Lymphocytes (Bld) [#/Vol] 1.11 10*3/uL Normal 1.00-4.00 [facility] Comment on above: Order Comment: Speci men Type: BLOOD SPECIMEN Ordering Facility: [facility] Address: [address] [place] [address] Performed By: #### 2 885-2, 2131-11, 2283-10 #### [facility] CLIA [id number] [address] [place] [address] [place] Lymphocytes/100 WBC (Bld) 21.5 % Normal [facility] Comment on above: Order Comment: Speci men Type: BLOOD SPECIMEN Ordering Facility: [facility] Address: [address] [place] [address] Performed By: #### 2 885-2, 2131-11, 2283-10 #### [facility] CLIA [id number] [address] [place] [address] [place] MCH (RBC) [Entitic mass] 28.6 pg Normal 26.0-34.0 [facility] Comment on above: Order Comment: Speci men Type: BLOOD SPECIMEN Ordering Facility: [facility] Address: [address] [place] [address] Performed By: #### 2 885-2, 2131-11, 2283-10 #### [facility] CLIA [id number] [address] [place], [place] [id number] [place] MCHC (RBC) [Mass/Vol] 29.9 g/dL Low 30.5-36.0 [facility] Comment on above: Order Comment: Speci men Type: BLOOD SPECIMEN Ordering Facility: [facility] Address: [address] [place] [address] Performed By: #### 2 885-2, 2131-11, 2283-10 #### [facility] CLIA [id number] [address] [place], [place] [id number] [place] MCV (RBC) [Entitic vol] 95.8 fL Normal 80.0-100.0 [facility] Comment on above: Order Comment: Speci men Type: BLOOD SPECIMEN Ordering Facility: [facility] Address: [address] [place] [address] Performed By: #### 2 885-2, 2131-11, 2283-10 #### [facility] CLIA [id number] [address] [place] [address] [place] Monocytes (Bld) [#/Vol] 0.45 10*3/uL Normal <0.87 [facility] Comment on above: Order Comment: Speci men Type: BLOOD SPECIMEN Ordering Facility: [facility] Address: [address] [place] [address] Performed By: #### 2 885-2, 2131-11, 2283-10 #### [facility] CLIA [id number] [address] [place] [address] [place] Monocytes/100 WBC (Bld) 8.7 % Normal [facility] Comment on above: Order Comment: Speci men Type: BLOOD SPECIMEN Ordering Facility: [facility] Address: [address] [place] [address] Performed By: #### 2 885-2, 2131-11, 2283-10 #### [facility] CLIA [id number] [address] [place] [address] [place] Neutrophils (Bld) [#/Vol] 3.40 10*3/uL Normal 1.45-7.50 [facility] Comment on above: Order Comment: Speci men Type: BLOOD SPECIMEN Ordering Facility: [facility] Address: [address] [place] [address] Performed By: #### 2 885-2, 2131-11, 2283-10 #### [facility] CLIA [id number] [address] [place] [address] [place] Neutrophils/100 WBC (Bld) 65.7 % Normal [facility] Comment on above: Order Comment: Speci men Type: BLOOD SPECIMEN Ordering Facility: [facility] Address: [address] [place] [address] Performed By: #### 2 885-2, 2131-11, 2283-10 #### [facility] CLIA [id number] [address] [place] [address] [place] Nucleated RBC (Bld) [#/Vol] 10*3/uL Normal <0.01 [facility] Comment on above: Order Comment: Speci men Type: BLOOD SPECIMEN Ordering Facility: [facility] Address: [address] [place] [address] Performed By: #### 2 885-2, 2131-11, 2283-10 #### [facility] CLIA [id number] [address] [place] [address] [place] Nucleated RBC/100 WBC (Bld) [Ratio] 0.0 /100 WBC Normal [facility] Comment on above: Order Comment: Speci men Type: BLOOD SPECIMEN Ordering Facility: [facility] Address: [address] [place] [address] Performed By: #### 2 885-2, 2131-11, 2283-10 #### [facility] CLIA [id number] [address] [place] [address] [place] Ovalocytes LM Ql (Bld) Few Normal [facility] Comment on above: Order Comment: Speci men Type: BLOOD SPECIMEN Ordering Facility: [facility] Address: [address] [place] [address] Performed By: #### 2 885-2, 2131-11, 2283-10 #### [facility] CLIA [id number] [address] [place] [address] [place] Platelet mean volume (Bld) [Entitic vol] 10.1 fL Normal 9.0-12.7 [facility] Comment on above: Order Comment: Speci men Type: BLOOD SPECIMEN Ordering Facility: [facility] Address: [address] [place] [address] Performed By: #### 2 885-2, 2131-11, 2283-10 #### [facility] CLIA [id number] [address] [place] [address] [place] Platelets (Bld) [#/Vol] 149 10*3/uL Low 150-400 [facility] Comment on above: Order Comment: Speci men Type: BLOOD SPECIMEN Ordering Facility: [facility] Address: [address] [place] [address] Result Comment: No c lot detected.Results checked and verified. Performed By: #### 2 885-2, 2131-11, 2283-10 #### [facility] CLIA [id number] [address] [place] [address] [place] Platelets Estimate (Bld) [#/Vol] Decreased Normal [facility] Comment on above: Order Comment: Speci men Type: BLOOD SPECIMEN Ordering Facility: [facility] Address: [address] [place] [address] Performed By: #### 2 885-2, 2131-11, 2283-10 #### [facility] CLIA [id number] [address] [place], [place] [address] [place] Polychromasia LM Ql (Bld) Slight Normal [facility] Comment on above: Order Comment: Speci men Type: BLOOD SPECIMEN Ordering Facility: [facility] Address: [address] [place] [address] Performed By: #### 2 885-2, 2131-11, 2283-10 #### [facility] CLIA [id number] [address] [place] [address] [place] RBC (Bld) [#/Vol] 3.60 10*6/uL Low 4.20-6.00 [facility] Comment on above: Order Comment: Speci men Type: BLOOD SPECIMEN Ordering Facility: [facility] Address: [address] [place] [address] Performed By: #### 2 885-2, 2131-11, 2283-10 #### [facility] CLIA [id number] [address] [place] [address] [place] RBC FRAGMENTS Few Abnormal None Seen [facility] Comment on above: Order Comment: Speci men Type: BLOOD SPECIMEN Ordering Facility: [facility] Address: [address] [place] [address] Performed By: #### 2 885-2, 2131-11, 2283-10 #### [facility] CLIA [id number] [address] [place] [address] [place] RED CELL MORPH Reviewed: see result s of individual morphologies Normal [facility] Comment on above: Order Comment: Speci men Type: BLOOD SPECIMEN Ordering Facility: [facility] Address: [address] [place] [address] Performed By: #### 2 885-2, 2131-11, 2283-10 #### [facility] CLIA [id number] [address] [place] [address] [place] WBC (Bld) [#/Vol] 5.17 10*3/uL Normal 3.70-11.00 [facility] Comment on above: Order Comment: Speci men Type: BLOOD SPECIMEN Ordering Facility: [facility] Address: [address] [place] [address] Performed By: #### 2 885-2, 2131-11, 2283-10 #### [facility] CLIA [id number] [address] [place] [address] [place] S[place] CNOVSPon 12-25-2024 CNOVSP Visit (SP) Office ([facility]) KIMMY MCARTHUR ([id number]) 1945 M Date Time Provider Department 12/25/24 2:30 PM ZOEY MARX During your visit today, we recorded the following information about you: Temperature Pulse Respiration Blood pressure 97.6 degrees 53/minute 18/minute 134/64 Weight Height 77.6 kg 1.829 m Zoey Marx PA-C 12/26/2024 8:37 AM Signed [facility] ANEMIA CONSULTATION NOTE Hematologic Oncology and Blood Disorders PATIENT NAME: Kimmy Mcarthur DATE OF SERVICE: December 25, 2024 CHIEF COMPLAINT: Anemia HISTORY OF THE PRESENT ILLNESS: The patient is referred to Hematology today by Marisol Boyce for further evaluation of anemia, iron deficiency. The patient is a 79 year old male with a past medical history of a-fib, CAD s/p RCA stent in 2022, heart failure with preserved ejection fraction, MVR, HTN, PAD, IDDM2 and Riley's esophagus. He is on Xarelto and aspirin and amiodarone for his a-fib. He presented to [facility] on 11/27/24 with shortness of breath with exertion and feeling tired all of the time. Labs found he had a hemoglobin of 7.1. Iron studies showed a % saturation of 4.1, TIBC 39, Iron 14.0 and transferrin of 279. No ferritin was done in the ER. B12 normal at 611, folate 23.8. He had elevation of transaminases 173 (ALT) and 72 (AST)--this resolved with future labs. Retic count was 2.53% (lower than expected). Stool for occult blood was also negative. He required 2 units of PRBCs during his admission. He was sent home on oral iron, once a day. He saw his PCP who repeated labs on 12/05/24 which showed hgb 8.4, MCV 85, ferritin 14, iron 48, transferrin 275, normal liver panel. He received 2 iron infusions at [facility] on 12/10/24 and 12/17/24. He felt better initially after the iron infusions. He isn't getting dizzy as often, but he is still weak. Breathing is also improved. No black stools or melena. Darker stools since starting iron pills. He is having constipation issues as well. 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 He does have mild swelling to both ankles that started after receiving the iron infusions. Also has chronic back pain. He used to see pain management. The pain has recently worsened. He did have an MRI of the thoracic and lumbar spine done at [facility] last week (Results are not available to me at this time). Otherwise denies any pain elsewhere. Symptoms/History Related to Anemia: Fatigue: Yes Pica: No SOB: Yes, improving Chest Pain/Palpitations: No Lightheadedness: Yes Dizziness: Yes, improving Headache: No Brittle hair/nails: No Restless Legs: No Diet: No Bleeding: No Chills: No Difficulty concentrating/brain fog: No History of anemia: No Oral Iron History: Yes, maybe within the last few years History Blood Transfusions: Yes, just with recent hopsitalization History of Intravenous Iron infusions: Yes, November 2024 Family History of Anemia/Blood Disorders: No Alcohol/Drug Use: No History of Pregnancies: not applicable Prior Hematology Consult in Past or Bone Marrow Biopsy: No History of Blood Donation: Yes, years ago Absorption Concerns/Gastric Surgery/Celiac Disease: No PAST MEDICAL HISTORY: PAST MEDICAL HISTORY Diagnosis Date Anemia Bursitis COPD (chronic obstructive pulmonary disease) (HCC) Coronary artery disease Diabetes mellitus (HCC) Dizziness Essential hypertension HL (hearing loss) Localized osteoarthrosis of left hip Mixed hyperlipidemia Myocardial infarct (HCC) Pancreatitis (HCC) Peripheral arterial occlusive disease PAST SURGICAL HISTORY: PAST SURGICAL HISTORY Procedure Laterality Date CATARACT EXTRACTION HX EGD W/O BRSH SPEC VARICIES INJ INJECTION - NERVE BLOCK INJECTION JOINT Left LEFT HEART CATH,PERCUTANEOUS REMOVAL GALLBLADDER SHOULDER SURGERY HX Left CURRENT MEDICATIONS: FEROSUL 325 mg (65 mg iron) tablet Take 1 tablet by mouth once daily. rivaroxaban (XARELTO) 20 mg tablet Take 20 mg by mouth once daily. STIMULANT LAXATIVE PLUS 8.6-50 mg per tablet Take 1 tablet by mouth every 12 hours. aspirin, enteric coated (ASPIRIN, ENTERIC COATED) 81 mg EC tablet Take 81 mg by mouth once daily. metFORMIN (GLUCOPHAGE) 500 mg tablet Take 500 mg by mouth. atorvastatin (LIPITOR) 80 mg tablet Take 80 mg by mouth once daily. amiodarone (PACERONE) 200 mg tablet Take 200 mg by mouth once daily. carvedilol (COREG) 3.125 mg tablet Take 3.125 mg by mouth two times a day with m (more content not included)... Normal [facility] Comprehensive metabolic 2000 panelon 12-25-2024 Albumin [Mass/Vol] 4.1 g/dL Normal 3.9-4.9 [facility] Comment on above: Order Comment: Speci men Type: BLOOD SPECIMEN Ordering Facility: [facility] Address: [address] [place] [address] Performed By: #### 2 4323-8, 0 #### [facility] CLIA [id number] [address] [place] [address] ALP [Catalytic activity/Vol] 82 U/L Normal 38-113 [facility] Comment on above: Order Comment: Speci men Type: BLOOD SPECIMEN Ordering Facility: [facility] Address: [address] [place] [address] Performed By: #### 2 4323-8, 2531-0 #### [facility] CLIA [id number] [address] [place] [address] ALT [Catalytic activity/Vol] 24 U/L Normal 10-54 [facility] Comment on above: Order Comment: Speci men Type: BLOOD SPECIMEN Ordering Facility: [facility] Address: [address] [place] [address] Performed By: #### 2 432-8, 2531-0 #### [facility] CLIA [id number] [address] [place] [address] Anion gap [Moles/Vol] 9 mmol/L Normal 8-15 [facility] Comment on above: Order Comment: Speci men Type: BLOOD SPECIMEN Ordering Facility: [facility] Address: [address] [place] [address] Performed By: #### 2 4328, 2531-0 #### [facility] CLIA [id number] [address] [place] [address] AST [Catalytic activity/Vol] 16 U/L Normal 14-40 [facility] Comment on above: Order Comment: Speci men Type: BLOOD SPECIMEN Ordering Facility: [facility] Address: [address] [place] [address] Performed By: #### 2 4328, 2531-0 #### [facility] CLIA [id number] [address] [place] [address] Bilirubin [Mass/Vol] 0.9 mg/dL Normal 0.2-1.3 [facility] Comment on above: Order Comment: Speci men Type: BLOOD SPECIMEN Ordering Facility: [facility] Address: [address] [place] [address] Performed By: #### 2 432-8, 2531-0 #### [facility] CLIA [id number] [address] [place] [address] Calcium [Mass/Vol] 8.3 mg/dL Low 8.5-10.2 [facility] Comment on above: Order Comment: Speci men Type: BLOOD SPECIMEN Ordering Facility: [facility] Address: [address] [place] [address] Performed By: #### 2 432-8, 2531-0 #### [facility] CLIA [id number] [address] [place] [address] Chloride [Moles/Vol] 107 mmol/L Normal 98-107 [facility] Comment on above: Order Comment: Speci men Type: BLOOD SPECIMEN Ordering Facility: [facility] Address: [address] [place] [address] Performed By: #### 2 4323-8, 2532-0 #### [facility] CLIA [id number] [address] [place] [address] CO2 [Moles/Vol] 25 mmol/L Normal 22-30 [facility] Comment on above: Order Comment: Speci men Type: BLOOD SPECIMEN Ordering Facility: [facility] Address: [address] [place] [address] Performed By: #### 2 4323-8, 2532-0 #### [facility] CLIA [id number] [address] [place] [address] Creatinine [Mass/Vol] 0.86 mg/dL Normal 0.73-1.22 [facility] Comment on above: Order Comment: Speci men Type: BLOOD SPECIMEN Order[facility] Address: [address] [place] [address] Performed By: #### 2 4323-8, 2532-0 #### [facility] CLIA [id number] [address] [place] [address] eGFRcr SerPlBld CKD-EPI 2020 89 mL/min/1.73m??? Normal >=60 [facility] Comment on above: Order Comment: Speci men Type: BLOOD SPECIMEN Ordering Facility: [facility] Address: [address] [place], [place] [address] Result Comment: Yeny mated Glomerular Filtration Rate (eGFR) is calculated using the 2020 CKD-EPI creatinine equation. This equation utilizes serum creatinine, sex, and age as parameters. The creatinine assay has traceable calibration to isotope dilution-mass spectrometry. Refer to KDIGO guidelines for clinical interpretation. In patients with unstable renal function, e.g. those with acute kidney injury, the eGFR may not accurately reflect actual GFR. Performed By: #### 2 4323-8, 2531-0 #### [facility] [place] [facility] CLIA [id number] [address] [place] [address] Glucose [Mass/Vol] 92 mg/dL Normal 74-99 [facility] Comment on above: Order Comment: Speci men Type: BLOOD SPECIMEN Ordering Facility: [facility] Address: [address] [place] [address] Result Comment: The [place] Diabetes Association (ADA) provides guidance for cutoff values for fasting glucose and random glucose. The ADA defines fasting as no caloric intake for at least 8 hours. Fasting plasma glucose results between 100 to 125 mg/dL indicate increased risk for diabetes (prediabetes). Fasting plasma glucose results greater than or equal to 126 mg/dL meet the criteria for diagnosis of diabetes. In the absence of unequivocal hyperglycemia, results should be confirmed by repeat testing. In a patient with classic symptoms of hyperglycemia or hyperglycemic crisis, random plasma glucose results greater than or equal to 200 mg/dL meet the criteria for diagnosis of diabetes. Reference: Standards of Medical Care in Diabetes 2016, [place] Diabetes Association. Diabetes Care. 2016.39(Suppl 1). Performed By: #### 2 43238, 0 #### [facility] CLIA [id number] [address] [place] [address] Potassium [Moles/Vol] 4.5 mmol/L Normal 3.7-5.1 [facility] Comment on above: Order Comment: Speci men Type: BLOOD SPECIMEN Order[facility] Facility[facility] Address: [address] [place] [address] Performed By: #### 2 4328, 2531-0 #### [facility] CLIA [id number] [address] [place] [address] Protein [Mass/Vol] 6.2 g/dL Low 6.3-8.0 [facility] Comment on above: Order Comment: Aminatai men Type: BLOOD SPECIMEN Ordering Facility: [facility] Address: [address] [place] [address] Performed By: #### 2 43238, 2531-0 #### [facility] CLIA [id number] [address] [place] [address] Sodium [Moles/Vol] 141 mmol/L Normal 136-144 [facility] Comment on above: Order Comment: Speci men Type: BLOOD SPECIMEN Order[facility] Facility[facility] Address: [address] [place] [address] Performed By: #### 2 4323-8, 2532-0 #### [facility] CLIA [id number] [address] [place] [address] Urea nitrogen [Mass/Vol] 20 mg/dL Normal 9-24 [facility] Comment on above: Order Comment: Speci men Type: BLOOD SPECIMEN Order[facility] Address: [address] [place] [address] Performed By: #### 2 4323-8, 2532-0 #### [facility] CLIA [id number] [address] [place] [address] EPO SerPl-aCncon 12-25-2024 Erythropoietin (EPO) Qn 74.5 mIU/mL High 2.6-18.5 [facility] Comment on above: Order Comment: Speci men Type: BLOOD SPECIMEN Order[facility] Address: [address] [place] [address] Performed By: #### 2 885-2, 2132-9, 2284-8 #### [facility] CLIA [id number] [address] [place] [address] [place] Eosinophils/100 WBC Auto (Bl d)Ordered By: Marisol Boyce on 12-25-2024 Eosinophils/100 WBC (Bld) 2.9 % [facility] Erythrocyte distribution wid th Auto (RBC) [Ratio]Ordered By: Marisol Boyce on 12-25-2024 Erythrocyte distribution width (RBC) [Ratio] 22.5 % High 11.5-15.0 [facility] Ferritin SerPl-mCncon 2024 Ferritin [Mass/Vol] 420.0 ng/mL Normal 30.3-565.7 [facility] Comment on above: Order Comment: Aminatajessica cota Type: BLOOD SPECIMEN [facility] Address: [address] [place] [address] Performed By: #### 2 276-4, 3016-3, 4542-7, 87331-8 #### [facility] CLIA [id number] [address] [place] [address] [place] Folate SerPl-mCncon 12-26-19 25 Folate [Mass/Vol] ng/mL Normal >4.7 [facility] Comment on above: Order Comment: Kb cota Type: BLOOD SPECIMEN Order[facility] Address: [address] [place] [address] Result Comment: A re sult of > 20 ng/mL is not necessarily indicative of a pathologic or treatable condition: it reflects a limitation of the test methodology. Assay reference range: 4.8 to 24.2 ng/mL. Suitable for detection of folate deficiency. Reference: Folate III (Folate III) [package insert V 1.0 [place]ican]. [facility], [place], [place]: January 2015. Performed By: #### 2 885-2, 2132-9, 2284-8 #### [facility] CLIA [id number] [address] [place] [address] [place] Glomerular filtration rate [ Volume Rate/Area] in Serum, Plasma or Blood by CreatinineOrdered By: Marisol Boyce on 12-25-2024 Glomerular filtration rate [Volume Rate/Area] in Serum, Plasma or Blood by Creatinine 89 mL/min/1.73m??? >=60 [facility] Comment on above: Estimated Glomerular Filtration Rate (eGFR) is calculated using the 2020 CKD-EPI creatinine equation. This equation utilizes serum creatinine, sex, and age as parameters. The creatinine assay has traceable calibration to isotope dilution-mass spectrometry. Refer to KDIGO guidelines for clinical interpretation. In patients with unstable renal function, e.g. those with acute kidney injury, the eGFR may not accurately reflect actual GFR. Glucose [Mass/volume] in Ser um or PlasmaOrdered By: Marisol Boyce on 12-25-2024 Glucose [Mass/Vol] 92 mg/dL 74-99 [facility] Comment on above: The [place] Diabete s Association (ADA) provides guidance for cutoff values for fasting glucose and random glucose. The ADA defines fasting as no caloric intake for at least 8 hours. Fasting plasma glucose results between 100 to 125 mg/dL indicate increased risk for diabetes (prediabetes).Fasting plasma glucose results greater than or equal to 126 mg/dL meet the criteria for diagnosis of diabetes. In the absence of unequivocal hyperglycemia, results should be confirmed by repeat testing. In a patient with classic symptoms of hyperglycemia or hyperglycemic crisis, random plasma glucose results greater than or equal to 200 mg/dL meet the criteria for diagnosis of diabetes.Reference: Standards of Medical Care in Diabetes 2016, [place] Diabetes Association. Diabetes Care. 2016.39(Suppl 1). Haptoglob Phul-mCncon 12-25 Haptoglobin [Mass/Vol] 223 mg/dL Normal 31-238 [facility] Comment on above: Order Comment: Speci men Type: BLOOD SPECIMEN [facility] Address: [address] [place] [address] Performed By: #### 2 276-4, 3016-3, 4542-7, 61446-5 #### [facility] CLIA [id number] [address] [place] [address] [place] Haptoglobin [Mass/volume] in Serum or PlasmaOrdered By: ZOEY MARX on 12-25-2024 Haptoglobin [Mass/Vol] 223 mg/dL 31-238 [facility] Hematocrit Auto (Bld) [Volum e fraction]Ordered By: Marisol Boyce on 12-25-2024 Hematocrit (Bld) [Volume fraction] 34.5 % Low 39.0-51.0 [facility] Hemoglobin [Mass/volume] in BloodOrdered By: Marisol Boyce on 12-25-2024 Hemoglobin (Bld) [Mass/Vol] 10.3 g/dL Low 13.0-17.0 [facility] IMMUNOFIXATION SCREEN, SERUM on 12-25-2024 INTERPRETATION (MPA) Poorly definded reg ion of restricted mobility in IgG and lambda lanes. Pattern is less well defined or fainter than typically seen in monoclonal gammopathy. This could represent either an atypical presentation of polyclonal immunoglobulins or the presence of a low level IgG lambda monoclonal gammopathy. If clinically indicated, urine monoclonal protein analysis and serum free light chain measurements are recommended to evaluate further for monoclonal gammopathy. Clinical correlation is necessary. Normal [facility] Comment on above: Order Comment: Kb cota Type: BLOOD SPECIMEN [facility] Address: [address] [place] [address] Performed By: #### 2 885-2, 9, 2283-10 #### [facility] CLIA [id number] [address] [place] [address] [place] MPA RESULT A poorly defined region of restricted mobility is present that may represent an M protein. Abnormal No M protein is identified. [facility] Comment on above: Order Comment: Kb cota Type: BLOOD SPECIMEN [facility] Address: [address] [place] [address] Performed By: #### 2 885-2, 2131-11, 2283-10 #### [facility] CLIA [id number] [address] [place] [address] OF SUSY STAFF REVIEW (MPA) Reviewed by Miley Valadez MD Normal [facility] Comment on above: Order Comment: Kb cota Type: BLOOD SPECIMEN [facility] Address: [address] [place] [address] Performed By: #### 2 885-2, 2131-11, 2283-10 #### [facility] CLIA [id number] [address] [place] [address] [place] IMMUNOGLOBULINS,IGG,IGA,IGMo n 12-25-2024 IgA [Mass/Vol] 148 mg/dL Normal 70-400 [facility] Comment on above: Order Comment: Kb cota Type: BLOOD SPECIMEN Order[facility] Address: [address] [place] [address] Performed By: #### 2 885-2, 2131-11, 2283-10 #### [facility] CLIA [id number] [address] [place] [address] [place] IgG [Mass/Vol] 746 mg/dL Normal 700-1600 [facility] Comment on above: Order Comment: Speci men Type: BLOOD SPECIMEN Ordering Facility: [facility] Address: [address] [place] [address] Performed By: #### 2 885-2, 2131-11, 2283-10 #### [facility] CLIA [id number] [address] [place] [address] [place] IgM [Mass/Vol] 68 mg/dL Normal 40-230 [facility] Comment on above: Order Comment: Speci men Type: BLOOD SPECIMEN Ordering Facility: [facility] Address: [address] [place] [address] Performed By: #### 2 885-2, 2131-11, 2283-10 #### [facility] CLIA [id number] [address] [place] [address] [place] IgA [Mass/volume] in Serum o r PlasmaOrdered By: ZOEY MARX on 12-25-2024 IgA [Mass/Vol] 148 mg/dL 70-400 [facility] IgG [Mass/volume] in Serum o r PlasmaOrdered By: ZOEY MARX on 12-25-2024 IgG [Mass/Vol] 746 mg/dL 700-1600 [facility] IgM [Mass/volume] in Serum o r PlasmaOrdered By: ZOEY MARX on 12-25-2024 IgM [Mass/Vol] 68 mg/dL 40-230 [facility] Immunoglobulin light chains. kappa.free [Mass/volume] in SerumOrdered By: ZOEY MARX on 12-25-2024 Immunoglobulin light chains.kappa.free (S) [Mass/Vol] 23.3 mg/L High 3.3-19.4 [facility] Comment on above: Rarely, increased se rum free light chains levels may not be detected or accurately quantified due to prozone phenomenon or in high viscosity samples using this immunoturbidimetric assay. Correlation with other laboratory results and clinical findings is recommended. The [place] Free Light Chain was performed using the Binding Site Optilite immunoturbidimetric method. Result obtained with different assay methods or kits cannot be used interchangeably. Immunoglobulin light chains. kappa.free/Immunoglobulin light chains.lambda.free [MassOrdered By: ZOEY MARX on 12-25-2024 Immunoglobulin light chains.kappa.free/Immun oglobulin light chains.lambda.free (S) [Mass ratio] 1.06 0.26-1.65 [facility] Immunoglobulin light chains. lambda.free [Mass/volume] in Serum or PlasmaOrdered By: ZOEY MARX on 12-25-2024 Immunoglobulin light chains.lambda.free [Mass/Vol] 22.0 mg/L 5.7-26.3 [facility] Comment on above: Rarely, increased se rum free light chains levels may not be detected or accurately quantified due to prozone phenomenon or in high viscosity samples using this immunoturbidimetric assay. Correlation with other laboratory results and clinical findings is recommended. The [place] Free Light Chain was performed using the Binding Site Optilite immunoturbidimetric method. Result obtained with different assay methods or kits cannot be used interchangeably. Iron and Iron binding capaci ty panelon 12-25-2024 Iron [Mass/Vol] 61 ug/dL Normal 41-186 [facility] Comment on above: Order Comment: Speci men Type: BLOOD SPECIMEN [facility]ing Facility: [facility] Address: [address] [place] [address] Performed By: #### 2 276-4, 3016-3, 4542-7, 36337-0 #### [facility] CLIA [id number] [address] [place] [address] [place] Iron binding capacity [Mass/Vol] 282 ug/dL Normal 232-386 [facility] Comment on above: Order Comment: Speci men Type: BLOOD SPECIMEN Ordering Facility: [facility] Address: [address] [place] [address] Performed By: #### 2 276-4, 3016-3, 4542-7, 60368-4 #### [facility] CLIA [id number] [address] [place] [address] [place] Iron/TIBC [Molar ratio] 21.6 % Normal 15.0-57.0 [facility] Comment on above: Order Comment: Speci men Type: BLOOD SPECIMEN [facility]ing Facility: [facility] Address: [address] [place] [address] Performed By: #### 2 276-4, 3016-3, 4542-7, 22006-0 #### [facility] CLIA [id number] [address] [place] [address] [place] Iron binding capacity [Mass/ volume] in Serum or PlasmaOrdered By: ZOEY MARX on 12-25-2024 Iron binding capacity [Mass/Vol] 282 ug/dL 232-386 [facility] Iron saturation [Mass Fracti on] in Serum or PlasmaOrdered By: ZOEY MARX on 12-25-2024 Iron saturation [Mass fraction] 21.6 % 15.0-57.0 [facility] KAPPA/OLIVIER,FREE,SERon 2024 Immunoglobulin light chains.kappa.free (S) [Mass/Vol] 23.3 mg/L High 3.3-19.4 [facility] Comment on above: Order Comment: Speci men Type: BLOOD SPECIMEN Ordering Facility: [facility] Address: [address] [place] [address] Result Comment: Rare ly, increased serum free light chains levels may not be detected or accurately quantified due to prozone phenomenon or in high viscosity samples using this immunoturbidimetric assay. Correlation with other laboratory results and clinical findings is recommended. The [place] Free Light Chain was performed using the Binding Site Optilite immunoturbidimetric method. Result obtained with different assay methods or kits cannot be used interchangeably. Performed By: #### 2 885-2, 2132-9, 2284-8 #### [facility] CLIA [id number] [address] [place] [address] [place] Immunoglobulin light chains.kappa/Immunoglob ulin light chains.lambda (S) [Mass ratio] 1.06 Normal 0.26-1.65 [facility] Comment on above: Order Comment: Kb cota Type: BLOOD SPECIMEN Order[facility] Facility[facility] Address: [address] [place] [address] Performed By: #### 2 885-2, 2131-11, 2283-10 #### [facility] CLIA [id number] [address] [place] [address] [place] Immunoglobulin light chains.lambda.free [Mass/Vol] 22.0 mg/L Normal 5.7-26.3 [facility] Comment on above: Order Comment: Kb cota Type: BLOOD SPECIMEN Ordering Facility: [facility] Address: [address] [place] [address] Result Comment: Rare ly, increased serum free light chains levels may not be detected or accurately quantified due to prozone phenomenon or in high viscosity samples using this immunoturbidimetric assay. Correlation with other laboratory results and clinical findings is recommended. The [place] Free Light Chain was performed using the Binding Site Optilite immunoturbidimetric method. Result obtained with different assay methods or kits cannot be used interchangeably. Performed By: #### 2 885-2, 2131-11, 2283-10 #### [facility] CLIA [id number] [address] [place] [address] [place] LDH SerPl-cCncon 12-25-2024 LDH [Catalytic activity/Vol] 168 U/L Normal 135-225 [facility] Comment on above: Order Comment: Kb cota Type: BLOOD SPECIMEN Ordering Facility: [facility] Address: [address] [place] [address] Performed By: #### 2 4323-8, 2532-0 #### [facility] CLIA [id number] [address] [place] [address] Laboratory - Chemistry and C hemistry - challengeOrdered By: Marisol Boyce on 12-25-2024 Albumin [Mass/Vol] 4.1 g/dL 3.9-4.9 [facility] ALP [Catalytic activity/Vol] 82 U/L 38-113 [facility] ALT [Catalytic activity/Vol] 24 U/L 10-54 [facility] AST [Catalytic activity/Vol] 16 U/L 14-40 [facility] Bilirubin [Mass/Vol] 0.9 mg/dL 0.2-1.3 [facility] Calcium [Mass/Vol] 8.3 mg/dL Low 8.5-10.2 [facility] Chloride [Moles/Vol] 107 mmol/L 98-107 [facility] CO2 [Moles/Vol] 25 mmol/L 22-30 [facility] Creatinine [Mass/Vol] 0.86 mg/dL 0.73-1.22 [facility] Potassium [Moles/Vol] 4.5 mmol/L 3.7-5.1 [facility] Sodium [Moles/Vol] 141 mmol/L 136-144 [facility] Urea nitrogen [Mass/Vol] 20 mg/dL 9-24 [facility] Laboratory - Chemistry and C hemistry - challengeOrdered By: ZOEY MARX on 12-25-2024 Cobalamin (Vitamin B12) [Mass/Vol] 455 pg/mL 232-1245 [facility] Ferritin [Mass/Vol] 420.0 ng/mL 30.3-565.7 [facility] Iron [Mass/Vol] 61 ug/dL 41-186 [facility] LDH [Catalytic activity/Vol] 168 U/L 135-225 [facility] Protein [Mass/Vol] 0.00 g/dL <=0.00 [facility] TSH Qn 4.760 m[IU]/L High 0.270-4.200 [facility] Laboratory - Hematology and Cell countsOrdered By: Marisol Boyce on 12-25-2024 Eosinophils (Bld) [#/Vol] 0.15 10*3/uL <0.46 [facility] Immature granulocytes/100 WBC (Bld) 0.4 % [facility] Leukocytes [#/volume] correc jamal for nucleated erythrocytes in Blood by Automated counOrdered By: Marisol Boyce on 12-25-2024 WBC corrected for nucl RBC Auto (Bld) [#/Vol] 5.17 k/uL 3.70-11.00 [facility] Lymphocytes Auto (Bld) [#/Vo l]Ordered By: Marisol Boyce on 12-25-2024 Lymphocytes (Bld) [#/Vol] 1.11 10*3/uL 1.00-4.00 [facility] Lymphocytes/100 WBC Auto (Bl d)Ordered By: Marisol Boyce on 12-25-2024 Lymphocytes/100 WBC (Bld) 21.5 % [facility] MCH Auto (RBC) [Entitic mass ]Ordered By: Marisol Boyce on 12-25-2024 MCH (RBC) [Entitic mass] 28.6 pg 26.0-34.0 [facility] MCHC Auto (RBC) [Mass/Vol]Or dered By: Marisol Boyce on 12-25-2024 MCHC (RBC) [Mass/Vol] 29.9 g/dL Low 30.5-36.0 [facility] MCV Auto (RBC) [Entitic vol] Ordered By: Marisol Boyce on 12-25-2024 MCV (RBC) [Entitic vol] 95.8 fL 80.0-100.0 [facility] Methylmalonate SerPl-sCncon 12-25-2024 Methylmalonate [Moles/Vol] 0.10 umol/L Normal <=0.40 [facility] Comment on above: Order Comment: Speci men Type: BLOOD SPECIMEN Ordering Facility: [facility] Address: [address] [place] [address] Result Comment: This test was developed, and its performance characteristics determined by the [facility] Department of Pathology and Laboratory Medicine. It has not been cleared or approved by the FDA. The [facility] Department of Pathology and Laboratory Medicine is regulated under CLIA as qualified to perform high-complexity testing. This test is used for clinical purposes. It should not be regarded as investigational or for research. Performed By: #### 2 885-2, 2132-9, 2284-8 #### [facility] CLIA [id number] [address] [place] [address] [place] Monocytes Auto (Bld) [#/Vol] Ordered By: Marisol Boyce on 12-25-2024 Monocytes (Bld) [#/Vol] 0.45 10*3/uL <0.87 [facility] Monocytes/100 WBC Auto (Bld) Ordered By: Marisol Carli on 12-25-2024 Monocytes/100 WBC (Bld) 8.7 % [facility] Neutrophils Auto (Bld) [#/Vo l]Ordered By: Marisol Candelarioz on 12-25-2024 Neutrophils (Bld) [#/Vol] 3.40 10*3/uL 1.45-7.50 [facility] Neutrophils/100 WBC Auto (Bl d)Ordered By: Marisol Boyce on 12-25-2024 Neutrophils/100 WBC (Bld) 65.7 % [facility] No Panel InformationOrdered By: ZOEY MARX on 12-25-2024 Folate >20.0 ng/mL >4.7 [facility] Comment on above: A result of > 20 ng/ mL is not necessarily indicative of a pathologic or treatable condition: it reflects a limitation of the test methodology.Assay reference range: 4.8 to 24.2 ng/mL. Suitable for detection of folate deficiency.Reference:Folate III (Folate III) [package insert V 1.0 [place]ican]. [facility], [place], [place]: January 2015. Immunofixation Interpretation [facility] Leuk/Lymph Sign Pathologist (Misc) Reviewed by Miley Valadez MD [facility] Miscellaneous Test 6 See comment [facility] Comment on above: Not Applicable. Miscellaneous Test Comment Reviewed by Miley Valadez MD [facility] Protein Electrophoresis Interpret [facility] Protein Electrophoresis Note Abnormal No definitive M protein is identified on protein electrophore sis. [facility] Serum Immunofixation Abnormal No M pr otein is identified. [facility] No Panel InformationOrdered By: Marisol Boyce on 12-25-2024 Immature Granulocyte # (Auto) <0.03 k/uL <0.10 [facility] Normal RBC Morphology Reviewed: see resu lts of individual morphologies [facility] RBC Fragments Few Abnormal None Seen [facility] Nucleated RBC Auto (Bld) [#/ Vol]Ordered By: Marisol Carli on 12-25-2024 Nucleated RBC (Bld) [#/Vol] 10*3/uL <0.01 [facility] Nucleated erythrocytes [Pres ence] in Blood by Automated countOrdered By: Marisol Carli on 12-25-2024 Nucleated RBC Auto Ql (Bld) 0.0 /100{WBC} [facility] Ovalocyte detectionOrdered B y: Marisol Boyce on 12-25-2024 Ovalocytes LM Ql (Bld) [facility] PROTEIN ELECTROPHORESIS SERU M (P)on 12-25-2024 Albumin [Mass/Vol] 3.69 g/dL Normal 3.43-5.41 [facility] Comment on above: Order Comment: Speci men Type: BLOOD SPECIMEN Order[facility] Facility[facility] Address: [address] [place] [address] Performed By: #### L [id number] #### [facility] CLIA [id number] [address] [place] [address] [place] Alpha 1 globulin Elph [Mass/Vol] 0.33 g/dL Normal 0.18-0.43 [facility] Comment on above: Order Comment: Speci men Type: BLOOD SPECIMEN Ordering Facility[facility] Address: [address] [place] [address] Performed By: #### L [id number] #### [facility] CLIA [id number] [address] [place] [address] [place] Alpha 2 globulin Elph [Mass/Vol] 0.71 g/dL Normal 0.42-0.98 [facility] Comment on above: Order Comment: Speci men Type: BLOOD SPECIMEN Ordering Facility[facility] Address: [address] [place] [address] Performed By: #### L [id number] #### [facility] CLIA [id number] [address] [place] [address] [place] Beta globulin Elph [Mass/Vol] 0.64 g/dL Normal 0.61-1.17 [facility] Comment on above: Order Comment: Speci men Type: BLOOD SPECIMEN Ordering Facility[facility] Address: [address] [place] [address] Performed By: #### L [id number] #### [facility] CLIA [id number] [address] [place] [address] [place] Gamma globulin Elph [Mass/Vol] 0.63 g/dL Normal 0.53-1.51 [facility] Comment on above: Order Comment: Speci men Type: BLOOD SPECIMEN Order[facility] Facility[facility] Address: [address] [place] [address] Performed By: #### L [id number] #### [facility] CLIA [id number] [address] [place] [address] [place] INTERPRETATION COMMENT FOR PROTEIN ELECTROPHORESIS The atypical region is relatively poorly defined and may represent an unusual presentation of polyclonal immunoglobulins, but cannot rule out the presence of a low level M protein. If clinically indicated, monoclonal protein analysis and serum free light chain analysis are suggested to evaluate further for monoclonal gammopathy. Normal [facility] Comment on above: Order Comment: Aminatai cipriano Type: BLOOD SPECIMEN Order[facility] Facility[facility] Address: [address] [place] [address] Performed By: #### L [id number] #### [facility] CLIA [id number] [address] [place] [address] [place] M-PROTEIN LOCATION Normal [facility] Comment on above: Order Comment: Aminatai men Type: BLOOD SPECIMEN Order[facility] Address: [address] [place] [address] Result Comment: Not Applicable. Performed By: #### L [id number] #### [facility] CLIA [id number] [address] [place] [address] [place] Protein Fractions [Interp] An atypical region of restricted mobility is identified on protein electrophoresis. Abnormal No definitive M protein is identified on protein electrophore sis. [facility] Comment on above: Order Comment: Speci men Type: BLOOD SPECIMEN Order[facility] Address: [address] [place] [address] Performed By: #### L [id number] #### [facility] CLIA [id number] [address] [place] [address] [place] Protein.monoclonal Elph [Mass/Vol] 0.00 g/dL Normal <=0.00 [facility] Comment on above: Order Comment: Speci men Type: BLOOD SPECIMEN Order[facility] Address: [address] [place] [address] Performed By: #### L [id number] #### [facility] CLIA [id number] [address] [place] [address] [place] SPE STAFF REVIEW Reviewed by Miley Valadez MD [facility] Comment on above: Order Comment: Speci men Type: BLOOD SPECIMEN Order[facility] Address: [address] [place] [address] Performed By: #### L [id number] #### [facility] CLIA [id number] [address] [place] [address] [place] Platelet adequacy [Presence] in Blood by Light microscopyOrdered By: Marisol Boyce on 12-25-2024 Platelets LM Ql (Bld) Decreased [facility] Platelet mean volume Auto (B ld) [Entitic vol]Ordered By: Marisol Boyce on 12-25-2024 Platelet mean volume (Bld) [Entitic vol] 10.1 fL 9.0-12.7 [facility] Platelets Auto (Bld) [#/Vol] Ordered By: Marisol Boyce on 12-25-2024 Platelets (Bld) [#/Vol] 149 10*3/uL Low 150-400 [facility] Comment on above: No clot detected.Res ults checked and verified. Polychromasia [Presence] in Blood by Light microscopyOrdered By: Marisol Boyec on 12-25-2024 Polychromasia LM Ql (Bld) Slight [facility] Prot SerPl-mCncon 12-25-2024 Protein [Mass/Vol] 6.0 g/dL Low 6.3-8.0 [facility] Comment on above: Order Comment: Kb cota Type: BLOOD SPECIMEN [facility] Address: [address] [place] [address] Performed By: #### 2 885-2, 2131-11, 2283-10 #### [facility] CLIA [id number] [address] [place] [address] [place] Protein [Mass/volume] in Ser um or PlasmaOrdered By: ZOEY MARX on 12-25-2024 Protein [Mass/Vol] 6.0 g/dL Low 6.3-8.0 [facility] RBC Auto (Bld) [#/Vol]Ordere d By: Marisol Boyce on 12-25-2024 RBC (Bld) [#/Vol] 3.60 10*6/uL Low 4.20-6.00 [facility] #on 12-25-2024 Reticulocytes (Bld) [#/Vol] 0.0002 10*3/uL High 0.018-0.100 [facility] Comment on above: Order Comment: Kb cota Type: BLOOD SPECIMEN [facility] Address: [address] [place] [address] Performed By: #### 2 885-2, 2131-11, 2283-10 #### [facility] CLIA [id number] [address] [place] [address] [place] Reticulocytes (Bld) [#/Vol]o n 12-25-2024 Reticulocytes/100 RBC (Bld) 5.7 % High 0.4-2.0 [facility] Comment on above: Order Comment: Speci men Type: BLOOD SPECIMEN [facility] Address: [address] [place] [address] Performed By: #### 2 885-2, 2132-9, 2284-8 #### [facility] CLIA [id number] [address] [place] [address] [place] [address] [place] Reticulocytes/100 RBC Auto ( Bld)Ordered By: ZOEY MARX on 12-25-2024 Reticulocytes/100 RBC (Bld) 5.7 % High 0.4-2.0 [facility] Serum or plasma alpha 1 glob ulin measurement by electrophoresis (mass/volume)Ordered By: ZOEY MARX on 12-25-2024 Alpha 1 globulin Elph [Mass/Vol] 0.33 g/dL 0.18-0.43 [facility] Serum or plasma alpha 2 glob ulin measurement by electrophoresis (mass/volume)Ordered By: ZOEY MARX on 12-25-2024 Alpha 2 globulin Elph [Mass/Vol] 0.71 g/dL 0.42-0.98 [facility] Serum or plasma anion gap de terminationOrdered By: Marisol Boyce on 12-25-2024 Anion gap [Moles/Vol] 9 mmol/L 8-15 [facility] Serum or plasma beta globuli n measurement by electrophoresis (mass/volume)Ordered By: ZOEY MARX on 12-25-2024 Beta globulin Elph [Mass/Vol] 0.64 g/dL 0.61-1.17 [facility] Serum or plasma erythropoiet in (EPO) measurement (units/volume)Ordered By: ZOEY MARX on 12-25-2024 Erythropoietin (EPO) Qn 74.5 mIU/mL High 2.6-18.5 [facility] Serum or plasma gamma globul in measurement by electrophoresis (mass/volume)Ordered By: ZOEY MARX on 12-25-2024 Gamma globulin Elph [Mass/Vol] 0.63 g/dL 0.53-1.51 [facility] Serum or plasma methylmalona te measurement (moles/volume)Ordered By: ZOEY MARX on 12-25-2024 Methylmalonate [Moles/Vol] 0.10 umol/L <=0.40 [facility] Comment on above: This test was jono ped, and its performance characteristics determined by the [facility] Department of Pathology and Laboratory Medicine. It has not been cleared or approved by the FDA. The [facility] Department of Pathology and Laboratory Medicine is regulated under CLIA as qualified to perform high-complexity testing. This test is used for clinical purposes. It should not be regarded as investigational or for research. TSH SerPl-aCncon 12-25-2024 TSH Qn 4.760 m[IU]/L High 0.270-4.200 [facility] Comment on above: Order Comment: Speci cipriano Type: BLOOD SPECIMEN [facility] Address: [address] [place] [address] Performed By: #### 2 276-4, 3016-3, 4542-7, 19316-4 #### [facility] CLIA [id number] [address] [place] [address] [place] Vit B12 SerPl-mCncon 025 Cobalamin (Vitamin B12) [Mass/Vol] 455 pg/mL Normal 232-1245 [facility] Comment on above: Order Comment: Speci cipriano Type: BLOOD SPECIMEN [facility] Address: [address] [place] [address] Performed By: #### 2 885-2, 2132-9, 2284-8 #### [facility] CLIA [id number] [address] [place] [address] [place] C-REACTIVE PROTEINon 025 C REACTIVE PROTEIN 0.2 mg/dL Normal <=0.7 [facility] Comment on above: Performed By: #### C RP #### [facility] ([facility]) [address] [place] [address] VIR CBC WITH AUTO DIFFERENTIALon 12-05-2024 BASOPHILS ABSOLUTE COUNT (10*3/UL) BY AUTOMATED COUNT 0.1 10*3/uL Normal 0.0-0.2 [facility] Comment on above: Result Comment: This is an appended report. These results have been appended to a previously preliminary verified report. Performed By: #### C BCA #### [facility] ([facility]) [address] [place] [address] VIR BASOPHILS RELATIVE PERCENT BY AUTOMATED COUNT 1.3 % Normal [facility] Comment on above: Result Comment: This is an appended report. These results have been appended to a previously preliminary verified report. Performed By: #### C BCA #### [facility] ([facility]) [address] [place] [address] VIR CELLAVISION ANISOCYTOSIS IN BLOOD BY LIGHT MICROSCOPY 2+ Normal [facility] Comment on above: Result Comment: This is an appended report. These results have been appended to a previously preliminary verified report. Performed By: #### C BCA #### [facility] ([facility]) [address] [place] [address] VIR CELLAVISION MEET CELLS IN BLOOD BY LIGHT MICROSCOPY 1+ Normal [facility] Comment on above: Result Comment: This is an appended report. These results have been appended to a previously preliminary verified report. Performed By: #### C BCA #### [facility] ([facility]) [address] [place] [address] VIR CELLAVISION DIFFERENTIAL TYPE AUTOMATED DIFFERENTIAL Normal [facility] Comment on above: Result Comment: This is an appended report. These results have been appended to a previously preliminary verified report. Performed By: #### C BCA #### [facility] ([facility]) [address] [place] [address] VIR CELLAVISION ELLIPTOCYTES IN BLOOD BY LIGHT MICROSCOPY 1+ Normal [facility] Comment on above: Result Comment: This is an appended report. These results have been appended to a previously preliminary verified report. Performed By: #### C BCA #### [facility] ([facility]) [address] [place] [address] VIR CELLAVISION POLYCHROMASIA IN BLOOD BY LIGHT MICROSCOPY 1+ Normal [facility] Comment on above: Result Comment: This is an appended report. These results have been appended to a previously preliminary verified report. Performed By: #### C BCA #### [facility] ([facility]) [address] [place] [address] VIR CELLAVISION RBC FRAGMENTS 1+ Normal [facility] Comment on above: Result Comment: This is an appended report. These results have been appended to a previously preliminary verified report. Performed By: #### C BCA #### [facility] ([facility]) [address] [place] [address] VIR Eosinophils (Bld) [#/Vol] 0.2 10*3/uL Normal 0.0-0.4 [facility] Comment on above: Result Comment: This is an appended report. These results have been appended to a previously preliminary verified report. Performed By: #### C BCA #### [facility] ([facility]) [address] [place] [address] VIR EOSINOPHILS RELATIVE PERCENT BY AUTOMATED COUNT 3.4 % Normal [facility] Comment on above: Result Comment: This is an appended report. These results have been appended to a previously preliminary verified report. Performed By: #### C BCA #### [facility] ([facility]) [address] [place] [address] VIR Erythrocyte distribution width (RBC) [Ratio] 22.4 % High 11.5-15 [facility] Comment on above: Performed By: #### C BCA #### [facility] ([facility]) [address] [place] [address] VIR Hematocrit (Bld) [Volume fraction] 26.4 % Low 39-50 [facility] Comment on above: Performed By: #### C BCA #### [facility] ([facility]) [address] [place] [address] VIR Hemoglobin (Bld) [Mass/Vol] 8.4 g/dL Low 13-17 [facility] Comment on above: Performed By: #### C BCA #### [facility] ([facility]) [address] [place] [address] VIR LYMPHOCYTES ABSOLUTE COUNT (10*3/UL) BY AUTOMATED COUNT 1.3 10*3/uL Normal 1.0-3.5 [facility] Comment on above: Result Comment: This is an appended report. These results have been appended to a previously preliminary verified report. Performed By: #### C BCA #### [facility] ([facility]) [address] [place] [address] VIR LYMPHOCYTES RELATIVE PERCENT BY AUTOMATED COUNT 22.3 % Normal [facility] Comment on above: Result Comment: This is an appended report. These results have been appended to a previously preliminary verified report. Performed By: #### C BCA #### [facility] ([facility]) [address] [place] [address] VIR MCH (RBC) [Entitic mass] 26.9 pg Low 27-34 [facility] Comment on above: Performed By: #### C BCA #### [facility] ([facility]) [address] [place] [address] VIR MCHC (RBC) [Mass/Vol] 31.6 g/dL Low 32-36 [facility] Comment on above: Performed By: #### C BCA #### [facility] ([facility]) [address] [place] [address] VIR MCV (RBC) [Entitic vol] 85 fL Normal 80-100 [facility] Comment on above: Performed By: #### C BCA #### [facility] ([facility]) [address] [place] [address] VIR MONOCYTES ABSOLUTE COUNT (10*3/UL) BY AUTOMATED COUNT 0.4 10*3/uL Normal 0.0-0.9 [facility] Comment on above: Result Comment: This is an appended report. These results have been appended to a previously preliminary verified report. Performed By: #### C BCA #### [facility] ([facility]) [address] [place] [address] VIR MONOCYTES RELATIVE PERCENT BY AUTOMATED COUNT 7.3 % Normal [facility] Comment on above: Result Comment: This is an appended report. These results have been appended to a previously preliminary verified report. Performed By: #### C BCA #### [facility] ([facility]) [address] [place] [address] VIR NEUTROPHILS ABSOLUTE COUNT BY AUTOMATED COUNT 3.7 10*3/uL Normal 1.5-6.6 [facility] Comment on above: Result Comment: This is an appended report. These results have been appended to a previously preliminary verified report. Performed By: #### C BCA #### [facility] ([facility]) [address] [place] [address] VIR NEUTROPHILS RELATIVE PERCENT BY AUTOMATED COUNT 65.7 % Normal [facility] Comment on above: Result Comment: This is an appended report. These results have been appended to a previously preliminary verified report. Performed By: #### C BCA #### [facility] ([facility]) [address] [place] [address] VIR Platelet mean volume (Bld) [Entitic vol] 8.4 fL Normal 7-12 [facility] Comment on above: Performed By: #### C BCA #### [facility] ([facility]) [address] [place] [address] VIR Platelets (Bld) [#/Vol] 177 10*3/uL Normal 150-450 [facility] Comment on above: Performed By: #### C BCA #### [facility] ([facility]) [address] [place] [address] VIR RBC COUNT 3.11 X10E12/L Low 4.1-5.7 [facility] Comment on above: Performed By: #### C BCA #### [facility] ([facility]) [address] [place] [address] VIR WBC (Bld) [#/Vol] 5.7 10*3/uL Normal 4-11 [facility] Comment on above: Performed By: #### C BCA #### [facility] ([facility]) [address] [place] [address] VIR COMPREHENSIVE METABOLIC PANE Aaron 12-05-2024 Albumin [Mass/Vol] 3.5 g/dL Normal 3.2-5.3 [facility] Comment on above: Performed By: #### C MP #### [facility] ([facility]) [address] [place] [address] VIR ALP [Catalytic activity/Vol] 67 U/L Normal 39-130 [facility] Comment on above: Performed By: #### C MP #### [facility] ([facility]) [address] [place] [address] VIR ALT [Catalytic activity/Vol] 22 U/L Normal <=40 [facility] Comment on above: Performed By: #### C MP #### [facility] ([facility]) [address] [place] [address] VIR Anion gap [Moles/Vol] 12 mmol/L Normal 5-15 [facility] Comment on above: Performed By: #### C MP #### [facility] ([facility]) [address] [place] [address] VIR AST [Catalytic activity/Vol] 16 U/L Normal <=41 [facility] Comment on above: Performed By: #### C MP #### [facility] ([facility]) [address] [place] [address] VIR Bilirubin [Mass/Vol] 0.8 mg/dL Normal 0.3-1.2 [facility] Comment on above: Performed By: #### C MP #### [facility] ([facility]) [address] [place] [address] VIR Calcium [Mass/Vol] 8.2 mg/dL Low 8.5-10.5 [facility] Comment on above: Performed By: #### C MP #### [facility] ([facility]) [address] [place] [address] VIR Chloride [Moles/Vol] 104 mmol/L Normal 98-109 [facility] Comment on above: Performed By: #### C MP #### [facility] ([facility]) [address] [place] [address] VIR CO2 [Moles/Vol] 24 mmol/L Normal 22-32 [facility] Comment on above: Performed By: #### C MP #### [facility] ([facility]) [address] [place] [address] VIR Creatinine [Mass/Vol] 1.13 mg/dL Normal 0.60-1.30 [facility] Comment on above: Result Comment: METH OD TRACEABLE TO IDMS STANDARD Performed By: #### C MP #### [facility] ([facility]) [address] [place] [address] VIR GFR/1.73 sq M.predicted among non-blacks MDRD (S/P/Bld) [Vol rate/Area] 67 mL/min/{1.73_m2} Normal >=60 [facility] Comment on above: Result Comment: Repo rted eGFR is based on the CKD-EPI 2020 equation that does not use a race coefficient. Performed By: #### C MP #### [facility] ([facility]) [address] [place] [address] VIR Glucose [Mass/Vol] 208 mg/dL High 65-99 [facility] Comment on above: Performed By: #### C MP #### [facility] ([facility]) [address] [place] [address] VIR Potassium [Moles/Vol] 4.8 mmol/L Normal 3.5-5.0 [facility] Comment on above: Performed By: #### C MP #### [facility] ([facility]) [address] [place] [address] VIR Protein [Mass/Vol] 5.8 g/dL Low 6.0-8.0 [facility] Comment on above: Performed By: #### C MP #### [facility] ([facility]) [address] [place] [address] VIR Sodium [Moles/Vol] 140 mmol/L Normal 134-146 [facility] Comment on above: Performed By: #### C MP #### [facility] ([facility]) [address] [place] [address] VIR Urea nitrogen [Mass/Vol] 35 mg/dL High 5-27 [facility] Comment on above: Performed By: #### C MP #### [facility] ([facility]) [address] [place] [address] VIR ERYTHROCYTE SEDIMENTATION RA TE (ESR)on 12-05-2024 ESR, ERYTHROCYTE SEDIMENTATION RATE 2 mm/h Normal 0-20 [facility] Comment on above: Performed By: #### E SR #### [facility] ([facility]) [address] [place] [address] VIR FERRITINon 12-05-2024 Ferritin [Mass/Vol] 14 ng/mL Low 24-336 [facility] Comment on above: Performed By: #### F ERR #### [facility] ([facility]) [address] [place] [address] VIR IRONon 12-05-2024 Iron [Mass/Vol] 48 ug/dL Low 50-212 [facility] Comment on above: Performed By: #### F E #### [facility] ([facility]) [address] [place] [address] VIR TRANSFERRINon 12-05-2024 Transferrin [Mass/Vol] 275 mg/dL Normal 168-336 [facility] Comment on above: Performed By: #### T RF #### [facility] ([facility]) [address] [place] [address] VIR Basophils Auto (Bld) [#/Vol] Ordered By: Lj Carbajal on 11-28-2024 Basophils (Bld) [#/Vol] 0.0 10 3/uL 0.0-0.1 [facility] Basophils/100 WBC Auto (Bld) Ordered By: Lj Carbajal on 11-28-2024 Basophils/100 WBC (Bld) 0.6 % 0.2-2.0 [facility] Cholesterol in LDL Calc [Mas s/Vol]Ordered By: Lj Carbajal on 11-28-2024 Cholesterol in LDL [Mass/Vol] 25.0 mg/dL [facility] Comment on above: <100 mg/dl [id number] 0-129 mg/dl NEAR OR ABOVE [id number] mg/dl BORDERLINE JUDQ141-125 mg/dl HIGH>190 mg/dl VERY HIGH Cholesterol in VLDL Calc [Ma ss/Vol]Ordered By: Lj Carbajal on 11-28-2024 Cholesterol in VLDL [Mass/Vol] 9.0 mg/dL [facility] Eosinophils/100 WBC Auto (Bl d)Ordered By: Lj Carbajal on 11-28-2024 Eosinophils/100 WBC (Bld) 2.9 % 0.9-7.0 [facility] Erythrocyte distribution wid th Auto (RBC) [Ratio]Ordered By: Lj Carbajal on 11-28-2024 Erythrocyte distribution width (RBC) [Ratio] 17.5 % High 11.0-15.0 [facility] Globulin Calc (S) [Mass/Vol] Ordered By: Lj Carbajal on 11-28-2024 Globulin (S) [Mass/Vol] 3.1 g/dL [facility] Glomerular filtration rate ( GFR) estimation in non- AmericanOrdered By: Lj Carbajal on 11-28-2024 GFR/1.73 sq M.predicted among non-blacks MDRD (S/P/Bld) [Vol rate/Area] mL/min/{1.73_m2} >=60 mL/min/1.73m 2 [facility] Hematocrit Auto (Bld) [Volum e fraction]Ordered By: Lj Carbajal on 11-28-2024 Hematocrit (Bld) [Volume fraction] 26.0 % Low 42.0-54.0 [facility] Hemoglobin [Mass/volume] in BloodOrdered By: Lj Carbajal on 11-28-2024 Hemoglobin (Bld) [Mass/Vol] 8.0 g/dL Low 14.0-18.0 [facility] Laboratory - Chemistry and C hemistry - challengeOrdered By: Lj Carbajal on 11-28-2024 Albumin [Mass/Vol] 3.1 g/dL Low 3.4-5.0 [facility] ALP [Catalytic activity/Vol] 105 U/L 46-116 [facility] ALT [Catalytic activity/Vol] 135 U/L High 16-63 [facility] AST [Catalytic activity/Vol] 30 U/L 15-37 [facility] Bilirubin [Mass/Vol] 1.7 mg/dL High 0.2-1.0 [facility] Calcium [Mass/Vol] 8.6 mg/dL 8.5-10.1 [facility] Chloride [Moles/Vol] 108 mmol/L High 98-107 [facility] Cholesterol [Mass/Vol] 78 mg/dL <=200 [facility] Cholesterol in HDL [Mass/Vol] 44 mg/dL 40-60 [facility] Comment on above: > or =60 mg/dl - LOW CARDIOVASCULAR RISK<40 mg/dl - HIGH CARDIOVASCULAR RISK CO2 [Moles/Vol] 28.3 mmol/L 21.0-32.0 [facility] Cobalamin (Vitamin B12) [Mass/Vol] 611 pg/mL 232-1245 [facility] Comment on above: Performed at: [address] [id number] Director: Dar Young PhD, Phone: [phone] Creatinine [Mass/Vol] 0.91 mg/dL 0.70-1.30 [facility] GFR/1.73 sq M.predicted MDRD (S/P/Bld) [Vol rate/Area] mL/min/{1.73_m2} >=60 mL/min/1.73m 2 [facility] Glucose [Mass/Vol] 175 mg/dL High 74-106 [facility] Magnesium [Mass/Vol] 2.2 mg/dL 1.8-2.4 [facility] Potassium [Moles/Vol] 4.5 mmol/L 3.5-5.1 [facility] Protein [Mass/Vol] 6.2 g/dL Low 6.4-8.2 [facility] Sodium [Moles/Vol] 141 mmol/L 136-145 [facility] Triglyceride [Mass/Vol] 45 mg/dL <=150 [facility] Urea nitrogen [Mass/Vol] 29.0 mg/dL High 7.0-18.0 [facility] Urea nitrogen/Creatinine [Mass ratio] 31.9 mg/mg [facility] Laboratory - Hematology and Cell countsOrdered By: Lj Carbajal on 11-28-2024 Immature granulocytes/100 WBC (Bld) 0.3 % 0.0-0.5 [facility] Leukocytes [#/volume] correc jamal for nucleated erythrocytes in Blood by Automated counOrdered By: Lj Carbajal on 11-28-2024 WBC corrected for nucl RBC Auto (Bld) [#/Vol] 6.2 10 3/uL 4.0-11.0 [facility] Lymphocytes Auto (Bld) [#/Vo l]Ordered By: Lj Carbajal on 11-28-2024 Lymphocytes (Bld) [#/Vol] 1.5 10 3/uL 1.2-3.8 [facility] Lymphocytes/100 WBC Auto (Bl d)Ordered By: Lj Carbajal on 11-28-2024 Lymphocytes/100 WBC (Bld) 23.8 % 20.5-60.0 [facility] MCH Auto (RBC) [Entitic mass ]Ordered By: Lj Carbajal on 11-28-2024 MCH (RBC) [Entitic mass] 25.9 pg 25.9-34.0 [facility] MCHC Auto (RBC) [Mass/Vol]Or dered By: Lj Carbajal on 11-28-2024 MCHC (RBC) [Mass/Vol] 30.8 g/dL 29.9-35.2 [facility] MCV Auto (RBC) [Entitic vol] Ordered By: Lj Carbajal on 11-28-2024 MCV (RBC) [Entitic vol] 84.1 fL 80.0-94.0 [facility] Monocytes Auto (Bld) [#/Vol] Ordered By: Lj Carbajal on 11-28-2024 Monocytes (Bld) [#/Vol] 0.5 10 3/uL 0.3-0.8 [facility] Monocytes/100 WBC Auto (Bld) Ordered By: Lj Carbajal on 11-28-2024 Monocytes/100 WBC (Bld) 7.9 % 1.7-12.0 [facility] Neutrophils Auto (Bld) [#/Vo l]Ordered By: Lj Carbajal on 11-28-2024 Neutrophils (Bld) [#/Vol] 4.0 10 3/uL 1.4-6.5 [facility] Neutrophils/100 WBC Auto (Bl d)Ordered By: Lj Carbajal on 11-28-2024 Neutrophils/100 WBC (Bld) 64.5 % 43.0-75.0 [facility] No Panel InformationOrdered By: Lj Carbajal on 11-28-2024 Eosinophils # (Auto) 0.2 10 3/uL 0.0-0.7 [facility] Folate 23.80 ng/mL 8.60-58.90 [facility] Immature Granulocyte # (Auto) 0.02 10 3/uL 0.00-0.03 [facility] Phosphorus Level 3.5 mg/dL 2.6-4.7 [facility] Platelet mean volume Auto (B ld) [Entitic vol]Ordered By: Lj Carbajal on 11-28-2024 Platelet mean volume (Bld) [Entitic vol] 10.6 fL 9.5-13.5 [facility] Platelets Auto (Bld) [#/Vol] Ordered By: Lj Carbajal on 09-03-2025 Platelets (Bld) [#/Vol] 168 10 3/uL 150-450 [facility] RBC Auto (Bld) [#/Vol]Ordere d By: Lj Carbajal on 11-28-2024 RBC (Bld) [#/Vol] 3.09 10 6/uL Low 4.70-6.10 [facility] Serum or plasma albumin/glob ulin mass ratioOrdered By: Lj Carbajal on 11-28-2024 Albumin/Globulin [Mass ratio] 1.0 {ratio} [facility] Serum or plasma anion gap de terminationOrdered By: Lj Carbajal on 11-28-2024 Anion gap [Moles/Vol] 9.2 mmol/L [facility] Serum or plasma total choles terol/high density lipoprotein (HDL) cholesterol mass ratOrdered By: Lj Carbajal on 11-28-2024 Cholesterol.total/Monalisa sterol in HDL [Mass ratio] 1.8 {ratio} [facility] Comment on above: 3.3 - 4.4 LOW RISK4. 4 - 7.1 AVERAGE RISK7.1 - 11.0 MODERATE RISK>11.0 HIGH RISK 36on 11-27-2024 36 Patient's mcdonald maykel stating Rush is very lightheaded and tired. She said she's scared to leave him alone in fear she'll come home and find him . Says his BP is always very low, around 70's/40's. I told her he needs taken to the ED for evaluation. Dr. Campo is not in the [place] office for another 4 weeks, and Rush is already scheduled that day with him. Jessica thanked me for the advice and agreed to take him to the ED. I asked her to call me with updates and I would contact Dr. Campo if needed. She verbalized understanding. Normal [facility] Basophils Auto (Bld) [#/Vol] Ordered By: Clem Daniels on 11-27-2024 Basophils (Bld) [#/Vol] 0.1 10 3/uL 0.0-0.1 [facility] Basophils/100 WBC Auto (Bld) Ordered By: Clem Daniels on 11-27-2024 Basophils/100 WBC (Bld) 0.9 % 0.2-2.0 [facility] Diagnostic impression [Inter pretation] in Specimen NarrativeOrdered By: Lj Carbajal on 11-27-2024 Diagnostic impression Molgen Hans (Unsp spec) [Interp] Comment . [facility] Comment on above: Not infected with HC V unless early or acute infection issuspected (which may be delayed in an immunocompromisedindividual), or other evidence exists to indicate HCVinfection.Performed at: [facility] [id number] Director: Dar Young PhD, Phone: [phone] Eosinophils/100 WBC Auto (Bl d)Ordered By: Clem Daniels on 11-27-2024 Eosinophils/100 WBC (Bld) 3.0 % 0.9-7.0 [facility] Erythrocyte distribution wid th Auto (RBC) [Ratio]Ordered By: Clem Daniels on 11-27-2024 Erythrocyte distribution width (RBC) [Ratio] 17.8 % High 11.0-15.0 [facility] Globulin Calc (S) [Mass/Vol] Ordered By: Clem Daniels on 11-27-2024 Globulin (S) [Mass/Vol] 3.2 g/dL [facility] Glomerular filtration rate ( GFR) estimation in non- AmericanOrdered By: Clem Daniels on 11-27-2024 GFR/1.73 sq M.predicted among non-blacks MDRD (S/P/Bld) [Vol rate/Area] 60 mL/min/{1.73_m2} >=60 mL/min/1.73m 2 [facility] Hematocrit Auto (Bld) [Volum e fraction]Ordered By: Lj Carbajal on 11-27-2024 Hematocrit (Bld) [Volume fraction] 27.0 % Low 42.0-54.0 [facility] Hemoglobin [Mass/volume] in BloodOrdered By: Lj Carbajal on 11-27-2024 Hemoglobin (Bld) [Mass/Vol] 8.2 g/dL Low 14.0-18.0 [facility] Hemoglobin.gastrointestinal [Presence] in StoolOrdered By: Clem Daniels on 11-27-2024 Hemoglobin.gastrointest inal Ql (Stl) Negative [facility] Hepatitis B virus surface Ag [Presence] in Serum or Plasma by ImmunoassayOrdered By: Lj Carbajal on 11-27-2024 HBV surface Ag IA Ql Negative Negative [facility] Iron binding capacity [Mass/ volume] in Serum or PlasmaOrdered By: Lj Carbajal on 11-27-2024 Iron binding capacity [Mass/Vol] 339.0 ug/dL 250.0-450.0 [facility] Iron saturation [Mass Fracti on] in Serum or PlasmaOrdered By: Lj Carbajal on 11-27-2024 Iron saturation [Mass fraction] 4.1 % [facility] Laboratory - Chemistry and C hemistry - challengeOrdered By: Clem Daniels on 11-27-2024 Bilirubin Ql (U) Negative NEGATIVE [facility] Glucose (U) [Mass/Vol] mg/dL Abnormal NEGATIVE [facility] Ketones Ql (U) Negative NEGATIVE [facility] pH (U) 6.0 [pH] 5.0-9.0 [facility] Specific gravity (U) [Rel density] 1.010 1.005-1.025 [facility] Urobilinogen Qn (U) 0.2 {Reilly'U}/dL 0.2-1.0 [facility] Albumin [Mass/Vol] 3.0 g/dL Low 3.4-5.0 [facility] ALP [Catalytic activity/Vol] 108 U/L 46-116 [facility] ALT [Catalytic activity/Vol] 173 U/L High 16-63 [facility] AST [Catalytic activity/Vol] 72 U/L High 15-37 [facility] Bilirubin [Mass/Vol] 0.7 mg/dL 0.2-1.0 [facility] Calcium [Mass/Vol] 8.5 mg/dL 8.5-10.1 [facility] Chloride [Moles/Vol] 106 mmol/L 98-107 [facility] CO2 [Moles/Vol] 25.8 mmol/L 21.0-32.0 [facility] Creatinine [Mass/Vol] 1.18 mg/dL 0.70-1.30 [facility] GFR/1.73 sq M.predicted MDRD (S/P/Bld) [Vol rate/Area] mL/min/{1.73_m2} >=60 mL/min/1.73m 2 [facility] Glucose [Mass/Vol] 310 mg/dL High 74-106 [facility] Magnesium [Mass/Vol] 2.2 mg/dL 1.8-2.4 [facility] Natriuretic peptide B (Bld) [Mass/Vol] 823.0 pg/mL <=1800.0 [facility] Potassium [Moles/Vol] 4.2 mmol/L 3.5-5.1 [facility] Protein [Mass/Vol] 6.2 g/dL Low 6.4-8.2 [facility] Sodium [Moles/Vol] 142 mmol/L 136-145 [facility] Urea nitrogen [Mass/Vol] 30.0 mg/dL High 7.0-18.0 [facility] Urea nitrogen/Creatinine [Mass ratio] 25.4 mg/mg [facility] Laboratory - Chemistry and C hemistry - challengeOrdered By: Lj Carbajal on 11-27-2024 Iron [Mass/Vol] 14.0 ug/dL Low 65.0-175.0 [facility] Transferrin [Mass/Vol] 279 mg/dL 177-329 [facility] Comment on above: Performed at: [place] [id number] Director: Dar Young PhD, Phone: [phone] Laboratory - Hematology and Cell countsOrdered By: Clem Daniels on 11-27-2024 Immature granulocytes/100 WBC (Bld) 0.3 % 0.0-0.5 [facility] Laboratory - Specimen inform ationOrdered By: Clem Daniels on 11-27-2024 Appearance (U) CLEAR CLEAR [facility] Color (U) LT. YELLOW YELLOW [facility] Laboratory - UrinalysisOrder ed By: Clem Daniels on 11-27-2024 Leukocyte esterase Test strip Ql (U) Negative NEGATIVE [facility] Mucus Ql (Urine sed) NONE SEEN NONE SEEN [facility] Nitrite Ql (U) Negative NEGATIVE [facility] Protein Ql (U) Negative NEG/TRACE [facility] Leukocytes [#/volume] correc jamal for nucleated erythrocytes in Blood by Automated counOrdered By: Clem Daniels on 11-27-2024 WBC corrected for nucl RBC Auto (Bld) [#/Vol] 5.7 10 3/uL 4.0-11.0 [facility] Lymphocytes Auto (Bld) [#/Vo l]Ordered By: Clem Daniels on 11-27-2024 Lymphocytes (Bld) [#/Vol] 1.5 10 3/uL 1.2-3.8 [facility] Lymphocytes/100 WBC Auto (Bl d)Ordered By: Clem Daniels on 11-27-2024 Lymphocytes/100 WBC (Bld) 26.7 % 20.5-60.0 [facility] MCH Auto (RBC) [Entitic mass ]Ordered By: Clem Daniels on 11-27-2024 MCH (RBC) [Entitic mass] 25.1 pg Low 25.9-34.0 [facility] MCHC Auto (RBC) [Mass/Vol]Or dered By: Clem Daniels on 11-27-2024 MCHC (RBC) [Mass/Vol] 29.3 g/dL Low 29.9-35.2 [facility] MCV Auto (RBC) [Entitic vol] Ordered By: Clem Daniels on 11-27-2024 MCV (RBC) [Entitic vol] 85.5 fL 80.0-94.0 [facility] Monocytes Auto (Bld) [#/Vol] Ordered By: Clem Daniels on 11-27-2024 Monocytes (Bld) [#/Vol] 0.5 10 3/uL 0.3-0.8 [facility] Monocytes/100 WBC Auto (Bld) Ordered By: Clem Daniels on 11-27-2024 Monocytes/100 WBC (Bld) 7.8 % 1.7-12.0 [facility] Neutrophils Auto (Bld) [#/Vo l]Ordered By: Clem Daniels on 11-27-2024 Neutrophils (Bld) [#/Vol] 3.5 10 3/uL 1.4-6.5 [facility] Neutrophils/100 WBC Auto (Bl d)Ordered By: Clem Daniels on 11-27-2024 Neutrophils/100 WBC (Bld) 61.3 % 43.0-75.0 [facility] No Panel InformationOrdered By: Clem Daniels on 11-27-2024 Urine Bacteria NONE SEEN #/HPF NONE SEEN [facility] Urine Culture Reflexed NO [facility] Urine Occult Blood Negative NEGATIVE [facility] Urine Other Casts NONE SEEN #/LPF NONE SEEN [facility] Urine Other Crystals None Seen #/HPF None Seen [facility] Urine RBC 0-2 #/HPF 0-2 [facility] Urine Squamous Epithelial Cells RARE #/LPF NONE/RARE [facility] Urine WBC 0-2 #/HPF Abnormal NONE SEEN [facility] Eosinophils # (Auto) 0.2 10 3/uL 0.0-0.7 [facility] Immature Granulocyte # (Auto) 0.02 10 3/uL 0.00-0.03 [facility] Troponin I High Sensitivity 14.7 pg/mL 4.0-76.1 [facility] Comment on above: CUT-OFF POINTS HAVE BEEN [...] 11-27-2024 Hepatitis A IgM Antibody Negative Negative [facility] Comment on above: A negative anti-HAV IgM result suggests no recent orcurrent HAV infection. Hepatitis B Core IgM Antibody Negative Negative [facility] Phosphorus Level 4.0 mg/dL 2.6-4.7 [facility] Platelet mean volume Auto (B ld) [Entitic vol]Ordered By: Clem Daniels on 11-27-2024 Platelet mean volume (Bld) [Entitic vol] 10.9 fL 9.5-13.5 [facility] Platelets Auto (Bld) [#/Vol] Ordered By: Clem Daniels on 11-27-2024 Platelets (Bld) [#/Vol] 178 10 3/uL 150-450 [facility] RBC Auto (Bld) [#/Vol]Ordere d By: Clem Daniels on 11-27-2024 RBC (Bld) [#/Vol] 2.83 10 6/uL Low 4.70-6.10 [facility] Reticulocytes/100 RBC Auto ( Bld)Ordered By: Lj Carbajal on 11-27-2024 Reticulocytes/100 RBC (Bld) 2.53 % 0.60-3.10 [facility] Serum or plasma albumin/glob ulin mass ratioOrdered By: Clem Daniels on 11-27-2024 Albumin/Globulin [Mass ratio] 0.9 {ratio} [facility] Serum or plasma anion gap de terminationOrdered By: Clem Daniels on 11-27-2024 Anion gap [Moles/Vol] 14.4 mmol/L [facility] Serum or plasma hepatitis C virus antibody signal/cutoff ratio by immunoassay (relatiOrdered By: Lj Carbajal on 11-27-2024 HCV Ab Signal/Cutoff IA [Rel units/Vol] Non-Reactive Non Reactive [facility] Orders Onlyon 11-21-2024 Orders Only [id number] Kimmy Mcarthur 1945 [facility] Provider Department Center 11/21/2024 [id number], HISTORICAL CARD [facility] Family History Problem Relation Age of Onset Cancer Father Diabetes Father Family Status - Relation Status Age at Father Normal [facility] Office Visiton 10-09-2024 Follow-up visit [id number] Kimmy Mcarthur 1945 [facility] 10/09/2024 [id number], NATASHA CARD [facility] Family History Problem Relation Age of Onset Cancer Father Diabetes Father Family Status - Relation Status Age at Father Level of Service:07303 [place] OFFICE/OUTPATIENT ESTABLISHED MOD MDM 30 MIN Normal [facility] 36on 08-16-2024 37 Pt informed they smiley l call sleep study place as they never followed up w sleep study, they will stop amlodipine Normal [facility] Ambulatory Visit Summaryon 0 07-18-2024 Ambulatory [...] out (more content not included)... Normal [facility] Urology Office/Clinic Noteon 07-18-2024 Urology [...] 200 mg (more content not included)... Normal [facility] Comment on above: Result Comment: Elec tronically Signed By: Deja Perez MD\.br\Date and Time Signed: 07/18/24 09:19 EDT\.br\Electronically Co-Signed By: Amalia Herring.br\Date and Time Co-Signed: 07/18/24 09:13 EDT CBC w/ Auto Diffon 5 Basophils/100 WBC (Bld) 0.8 % Normal 0.0-2.0 [facility] Comment on above: Performed By: #### 2 [id number] #### [facility] [address] [place] [address] Erythrocyte distribution width (RBC) [Ratio] 15.6 % High 10.9-14.2 [facility] Comment on above: Performed By: #### 2 [id number] #### [facility] [address] [place] [address] Hematocrit (Bld) [Volume fraction] 32.5 % Low 37.7-49.0 [facility] Comment on above: Performed By: #### 2 [id number] #### [facility] [address] [place] [address] Lymphocytes/100 WBC (Bld) 22.2 % Normal 14.0-50.0 [facility] Comment on above: Performed By: #### 2 [id number] #### [facility] [address] [place] [address] Neutrophils/100 WBC (Bld) 65.2 % Normal 36.0-75.0 [facility] Comment on above: Performed By: #### 2 [id number] #### [facility] [address] [place] [address] Platelet mean volume (Bld) [Entitic vol] 8.3 fL Normal 6.4-10.8 [facility] Comment on above: Performed By: #### 2 [id number] #### [facility] [address] [place] [address] Basophils/Leukocytes Auto (Bld) [Pure # fraction] 0.0 E9/L Normal 0.0-0.2 [facility] Comment on above: Performed By: #### 2 [id number] #### [facility] [address] [place] [address] Eosinophils (Bld) [#/Vol] 0.2 E9/L Normal 0.0-0.5 [facility] Comment on above: Performed By: #### 2 [id number] #### [facility] [address] [place] [address] Eosinophils/100 WBC (Bld) 3.5 % Normal 0.0-8.0 [facility] Comment on above: Performed By: #### 2 [id number] #### [facility] [address] [place] [address] Hemoglobin (Bld) [Mass/Vol] 11.1 g/dL Low 13.5-17.5 [facility] Comment on above: Performed By: #### 2 [id number] #### [facility] [address] [place] [address] Lymphocytes (Bld) [#/Vol] 1.3 E9/L Normal 1.0-4.0 [facility] Comment on above: Performed By: #### 2 [id number] #### [facility] [address] [place] [address] MCH (RBC) [Entitic mass] 30.5 pg Normal 27.0-34.0 [facility] Comment on above: Performed By: #### 2 [id number] #### [facility] [address] [place] [address] MCHC (RBC) [Mass/Vol] 34.1 g/dL Normal 31.4-36.0 [facility] Comment on above: Performed By: #### 2 [id number] #### [facility] [address] [place] [address] MCV (RBC) [Entitic vol] 89.5 fL Normal 80.0-100.0 [facility] Comment on above: Performed By: #### 2 [id number] #### [facility] [address] [place] [address] Monocytes (Bld) [#/Vol] 0.5 E9/L Normal 0.2-1.0 [facility] Comment on above: Performed By: #### 2 [id number] #### [facility] [address] [place] [address] Neutrophils (Bld) [#/Vol] 3.8 E9/L Normal 2.0-7.5 [facility] Comment on above: Performed By: #### 2 [id number] #### [facility] [address] [place] [address] Platelet 203.0 E9/L Normal 150.0-500.0 [facility] Comment on above: Performed By: #### 2 [id number] #### [facility] [address] [place] [address] RBC (Bld) [#/Vol] 3.6 E12/L Low 4.3-5.9 [facility] Comment on above: Performed By: #### 2 [id number] #### [facility] [address] [place] [address] WBC corrected for nucl RBC Auto (Bld) [#/Vol] 5.8 E9/L Normal 4.0-11.0 [facility] Comment on above: Performed By: #### 2 [id number] #### [facility] [address] [place] [address] CHEMISTRYOrdered By: SYSTEM SYSTEM on 07-11-2024 Albumin [...] methods and specificity. Values obtained with different hot top liner's assays cannot be used interchangeably. The methodology used to obtain this result was chemiluminescence using [employer]'s Access Hybritech PSA reagent and Access Hybritech [...] for this result was chemiluminescence using [employer]'s Access Hybritech PSA reagent. CHEMISTRYOrdered By: Chrissy Holder on 07-11-2024 HbA1c (Bld) [Mass fraction] 6.3 % High <=5.9% [facility] ChemAutoSS CMPon 07-11-2024 Albumin [Mass/Vol] 4.1 g/dL Normal 3.3-5.0 [facility] Comment on above: Performed By: #### 2 [id number] #### [facility] [address] [place] [address] Albumin/Globulin (S) [Mass conc ratio] 1.8 Normal 1.1-2.2 [facility] Comment on above: Performed By: #### 2 [id number] #### [facility] [address] [place] [address] ALP [Catalytic activity/Vol] 73 Int._Unit/L Normal 21-98 [facility] Comment on above: Performed By: #### 2 [id number] #### [facility] [address] [place] [address] ALT No additional P-5'-P [Catalytic activity/Vol] 16 Int._Unit/L Normal 6-46 [facility] Comment on above: Performed By: #### 2 [id number] #### [facility] [address] [place] [address] Anion gap [Moles/Vol] 12 mmol/L Normal 6-16 [facility] Comment on above: Performed By: #### 2 [id number] #### [facility] [address] [place] [address] AST [Catalytic activity/Vol] 15 Int._Unit/L Normal 5-43 [facility] Comment on above: Performed By: #### 2 [id number] #### [facility] [address] [place] [address] Bilirubin [Mass/Vol] 0.9 mg/dL Normal 0.0-1.1 [facility] Comment on above: Performed By: #### 2 [id number] #### [facility] [address] [place] [address] Calcium [Mass/Vol] 9.2 mg/dL Normal 8.9-11.1 [facility] Comment on above: Performed By: #### 2 [id number] #### [facility] [address] [place] [address] Chloride [Moles/Vol] 106 mmol/L Normal 101-111 [facility] Comment on above: Performed By: #### 2 [id number] #### [facility] [address] [place] [address] CO2 [Moles/Vol] 24 mmol/L Normal 21-31 [facility] Comment on above: Performed By: #### 2 [id number] #### [facility] [address] [place] [address] Creatinine [Mass/Vol] 0.9 mg/dL Normal 0.5-1.3 [facility] Comment on above: Performed By: #### 2 [id number] #### [facility] [address] [place] [address] Globulin (S) [Mass/Vol] 2.3 g/dL Normal 1.4-4.0 [facility] Comment on above: Performed By: #### 2 [id number] #### [facility] [address] [place] [address] Glucose [Mass/Vol] 119 mg/dL Normal 55-199 [facility] Comment on above: Performed By: #### 2 [id number] #### [facility] [address] [place] [address] Potassium [Moles/Vol] 4.0 mmol/L Normal 3.5-5.3 [facility] Comment on above: Performed By: #### 2 [id number] #### [facility] [address] [place] [address] Protein [Mass/Vol] 6.4 g/dL Normal 6.0-7.8 [facility] Comment on above: Performed By: #### 2 [id number] #### [facility] [address] [place] [address] Sodium [Moles/Vol] 138 mmol/L Normal 135-145 [facility] Comment on above: Performed By: #### 2 [id number] #### [facility] [address] [place] [address] Urea nitrogen [Mass/Vol] 28 mg/dL High 5-21 [facility] Comment on above: Performed By: #### 2 710990 #### [facility] [address] [place] [address] Urea nitrogen/Creatinine [Mass ratio] 31 No Units High 10-20 [facility] Comment on above: Performed By: #### 2 [id number] #### [facility] [address] [place] [address] [facility] CBC W/ AUTO DIFFon 06-26 EOSINOPHILS/100 LEUKOCYTES:NFR:PT:BLD:Q N:AUTOMATED COUNT 3.5 % 0.0 - 8.0 % [facility] EOSINOPHILS:NCNC:PT:BLD :QN: 0.2 [facility] BASOPHILS/LEUKOCYTES:NF R.DF:PT:BLD:QN:AUTOMATE D COUNT 0 [facility] ERYTHROCYTE MEAN CORPUSCULAR HEMOGLOBIN CONCENTRATION:MCNC:PT:R BC:QN 34.1 [facility] ERYTHROCYTE MEAN CORPUSCULAR HEMOGLOBIN:ENTMASS:PT:R BC:QN 30.5 pg 27.0 - 34.0 pg [facility] ERYTHROCYTE MEAN CORPUSCULAR VOLUME:ENTVOL:PT:RBC:QN :AUTOMATED COUNT 89.5 fL 80.0 - 100.0 fL [facility] ERYTHROCYTES:NCNC:PT:BL D:QN:AUTOMATED COUNT 3.6 Low [facility] HEMOGLOBIN:MCNC:PT:BLD: QN: 11.1 Low [facility] LEUKOCYTES 5.8 [facility] MONOCYTES:NCNC:PT:BLD:Q N:AUTOMATED COUNT 0.5 [facility] NEUTROPHILS:NCNC:PT:BLD :QN:AUTOMATED COUNT 3.8 [facility] Interpretation and review of laboratory results Abnormal [facility] LYMPHOCYTES:NCNC:PT:BLD :QN: 1.3 [facility] Platelets (Bld) [#/Vol] 203 10*3/uL [facility] Original Ordering Provider: ELO BOYCE [facility] HEMATOLOGYOrdered By: SYSTEM SYSTEM on 07-11-2024 Basophils/100 [...] Normal 4.0 - 11.0 E9/L Remisol Heme [id number] 07-11-2024 HbA1c (Bld) [Mass fraction] 6.3 % High <=5.9 [facility] Comment on above: Performed By: #### 7 [id number] #### [facility] [address] [place] [address] Ironon 07-11-2024 Iron [Mass/Vol] 38 microgram/dL Normal 35-153 [facility] Comment on above: Performed By: #### 2 [id number] #### [facility] [address] [place] [address] Laboratory - Chemistry and C hemistry - challengeOrdered By: SYSTEM SYSTEM on 07-11-2024 Bilirubin Ql (U) Negative Normal Negativemg/ d L [facility] UA Auto SS Glucose Ql (U) 4+ mg/dL Invalid Interpretation Code Negativemg/d L [facility] UA Auto SS pH (U) 5.5 *NA* (07/11/24 1:55 PM) Invalid Interpretation Code 5.0 - 9.0 [facility] UA Auto SS Specific gravity (U) [Rel density] 1.023 *NA* (07/11/24 1:55 PM) Invalid Interpretation Code 1.005 - 1.030 [facility] UA Auto SS Urobilinogen (U) [Mass/Vol] Negative [...] strip Ql (U) Negative Normal NegativeLeu/ uL [facility] UA Auto SS Nitrite Auto test strip Ql (U) Negative Normal Negativemg/d L [facility] UA Auto SS Protein Ql (U) Negative Normal Negativemg/d L [facility] UA Auto SS Lipid Panelon 07-11-2024 Cholesterol [Mass/Vol] 96 mg/dL Low 120-200 [facility] Comment on above: Performed By: #### 2 [id number] #### [facility] [address] [place] [address] Cholesterol in HDL [Mass/Vol] 38 mg/dL Invalid Interpretation Code [facility] Comment on above: Result Comment: '>= 60 LOW RISK' '<= 40 HIGH RISK' Performed By: #### 2 [id number] #### [facility] [address] [place] [address] Cholesterol in LDL [Mass/Vol] 44 mg/dL Normal <=129 [facility] Comment on above: Performed By: #### 2 [id number] #### [facility] [address] [place] [address] Cholesterol in VLDL [Mass/Vol] 14 mg/dL Normal 7-40 [facility] Comment on above: Performed By: #### 2 [id number] #### [facility] [address] [place] [address] Triglyceride [Mass/Vol] 68 mg/dL Normal <=149 [facility] Comment on above: Performed By: #### 2 [id number] #### [facility] [address] [place] [address] No Panel InformationOrdered By: Talita Candelario on 07-11-2024 UA Spec Desc Clean Catch (07/11/24 1:55 PM) Normal [facility] UA Auto SS U Microalbon 07-11-2024 Albumin DL <= 20 mg/L (U) [Mass/Vol] 0.8 mg/dL Normal 0.0-1.9 [facility] Comment on above: Performed By: #### 1 [id number] #### [facility] [address] [place] [address] UA with Cult Rflxon 07-12-19 25 Bilirubin Ql (U) Negative Normal Negative [facility] Comment on above: Performed By: #### 4 [id number] #### [facility] [address] [place] [address] Order Comment: Farhan daly, screen shot this page and put a note on it to be credited.07/11/2024 18:05:55 EDT [id number] Performed By: #### 4 [id number] #### [facility] [address] [place] [address] Clarity (U) Clear Normal Clear [facility] Comment on above: Performed By: #### 4 [id number] #### [facility] [address] [place] [address] Order Comment: Farhan daly, screen shot this page and put a note on it to be credited.07/11/2024 18:05:55 EDT [id number] Performed By: #### 4 [id number] #### [facility] [address] [place] [address] Color (U) Yellow Normal Yellow [facility] Comment on above: Result Comment: Micr oscopic readings are only performed on those samples that meet specific criteria set forth by [facility]. Performed By: #### 4 [id number] #### [facility] [address] [place] [address] Order Comment: Farhan daly, screen shot this page and put a note on it to be credited.07/11/2024 18:05:55 EDT [id number] Performed By: #### 4 [id number] #### [facility] [address] [place] [id number] Glucose Ql (U) 4+ mg/dL Abnormal Negative [facility] Comment on above: Performed By: #### 4 [id number] #### [facility] [address] [place] [address] Order Comment: Farhan daly, screen shot this page and put a note on it to be credited.07/11/2024 18:05:55 EDT [id number] Performed By: #### 4 [id number] #### [facility] [address] [place] [address] Hemoglobin Auto test strip (U) [Mass/Vol] Negative Normal Negative [facility] Comment on above: Performed By: #### 4 [id number] #### [facility] [address] [place] [address] Order Comment: Dupli shweta order, screen shot this page and put a note on it to be credited.07/11/2024 18:05:55 EDT [id number] Performed By: #### 4 [id number] #### [facility] [address] [place] [address] Ketones Auto test strip Ql (U) Negative Normal Negative [facility] Comment on above: Performed By: #### 4 [id number] #### [facility] [address] [place] [address] Order Comment: Dupli shweta order, screen shot this page and put a note on it to be credited.07/11/2024 18:05:55 EDT [id number] Performed By: #### 4 [id number] #### [facility] [address] [place] [address] Leukocyte esterase Auto test strip Ql (U) Negative Normal Negative [facility] Comment on above: Performed By: #### 4 [id number] #### [facility] [address] [place] [address] Order Comment: Dupli shweta order, screen shot this page and put a note on it to be credited.07/11/2024 18:05:55 EDT [id number] Performed By: #### 4 [id number] #### [facility] [address] [place] [address] Nitrite Auto test strip Ql (U) Negative Normal Negative [facility] Comment on above: Performed By: #### 4 [id number] #### [facility] [address] [place] [address] Order Comment: Farhan rock order, screen shot this page and put a note on it to be credited.07/11/2024 18:05:55 EDT [id number] Performed By: #### 4 [id number] #### [facility] [address] [place] [address] pH (U) 5.5 [pH] Invalid Interpretation Code 5.0-9.0 [facility] Comment on above: Performed By: #### 4 [id number] #### [facility] [address] [place] [address] Order Comment: Farhan daly, screen shot this page and put a note on it to be credited.07/11/2024 18:05:55 EDT [id number] Performed By: #### 4 [id number] #### [facility] [address] [place] [address] [id number] Protein Ql (U) Negative Normal Negative [facility] Comment on above: Performed By: #### 4 [id number] #### [facility] [address] [place] [address] [id number] Order Comment: Farhan rock order, screen shot this page and put a note on it to be credited.07/11/2024 18:05:55 EDT [id number] Performed By: #### 4 [id number] #### [facility] [address] [place] [address] [id number] Specific gravity (U) [Rel density] 1.023 Invalid Interpretation Code 1.005-1.030 [facility] Comment on above: Performed By: #### 4 [id number] #### [facility] [address] [place] [address] [id number] Order Comment: Farhan rock order, screen shot this page and put a note on it to be credited.07/11/2024 18:05:55 EDT [id number] Performed By: #### 4 [id number] #### [facility] [address] [place] [address] [id number] Urobilinogen (U) [Mass/Vol] Negative Normal Negative [facility] Comment on above: Performed By: #### 4 [id number] #### [facility] [address] [place] [address] Order Comment: Farhan daly, screen shot this page and put a note on it to be credited.07/11/2024 18:05:55 EDT [id number] Performed By: #### 4 [id number] #### [facility] [address] [place] [address] Type of Urine collection method Clean Catch Normal [facility] Comment on above: Performed By: #### 4 [id number] #### [facility] [address] [place] [address] Order Comment: Farhan daly, screen shot this page and put a note on it to be credited.07/11/2024 18:05:55 EDT [id number] Performed By: #### 4 [id number] #### [facility] [address] [place] [address] URINALYSISOrdered By: SYSTEM SYSTEM on 07-11-2024 Color (U) Yellow 1 (07/11/24 1:55 PM) Normal Yellow [facility] Auto SS Comment on above: Interpretive Data: M icroscopic readings are only performed on those samples that meet specific criteria set forth by [facility]. Color (U) Yellow 2 (07/11/24 1:55 PM) Normal Yellow [facility] UA Auto SS Comment on above: Interpretive Data: M icroscopic readings are only performed on those samples that meet specific criteria set forth by [facility]. eGFRon 07-11-2024 eGFR 87 mL/min/1.73 m2 Normal >=59 [facility] Comment on above: Performed By: #### 1 [id number] #### [facility] [address] [place] [address] [id number] Aaron 04-11-2024 L -- ---- Specimen: [id number] Received: 04/12/24 Status: SULY Reynalenora Num: [id number] Spec Type: Surgical Subm Dr: Sabino Mauricio DO Tissues: A Esophagus Biopsy (DISTAL ESOPHAGUS BX X2) B Colon Biopsy (RECTAL SIGMOID JUNCTION POLY) Procedures: HE/Polly, Gross/Micro L4/2 ---- Age/ Patient Sex Location Account Attending Physician ---- Kimmy Mcarthur 78/M LABELL [id number] Sabino Mauricio DO ---- SPEC NUM: [id number] RECD: 04/12/24 STATUS: SULY ANDREA NUM: [id number] MALKA: 04/11/24-[address]: Sabino Mauricio DO ENTERED: 04/12/[address]: Ed,Raza SPEC TYPE: Surgical DEPT: [facility] ENTERED BY: [id number] RECV BY: [id number] ORDERED: HE/4, Gross/Micro L4/2 ORDERED: HE/4, Gross/Micro [...] submitted in a single cassette. (1, ns, 30 B) ---- Specimen: [id number] Received: 04/12/24 Status: SULY Seymour Num: [id number] Spec Type: Surgical Subm Dr: Sabino Mauricio, Tissues: A Esophagus Biopsy (DISTAL ESOPHAGUS BX X2) B Colon Biopsy (RECTAL SIGMOID JUNCTION POLY) Procedures: HE/4, Gross/Micro L4/2 ---- Patient: Kimmy Mcarthur [id number] (Continued) ---- Specimen: [id number] Received: 04/12/24 (Continued) Signed (signature on file) Jasiel Sanon MD 04/13/24 1225 ---- Specimen: [id number] Received: 04/12/24 Status: SULY Seymour Num: [id number] Spec Type: Surgical Subm Dr: Sabino Mauricio DO Tissues: A Esophagus Biopsy (DISTAL ESOPHAGUS BX X2) B Colon Biopsy (RECTAL SIGMOID JUNCTION POLY) Procedures: BENIGNO/Xi Matias/Kirsten L4/2 ---- Patient: Kimmy Mcarthur [id number] (Continued) ---- Specimen: [id number] Received: 04/12/24 (Continued) Microscopic Description A B:Microscopic examination is performed. CPT Codes 60268 x2 ---- ---- Specimen: [id number] Received: 04/12/24 Status: SULY Andrea Num: [id number] Spec Type: Surgical Subm Dr: Sabino Mauricio DO Tissues: A Esophagus Biopsy (DISTAL ESOPHAGUS BX X2) B Colon Biopsy (RECTAL SIGMOID JUNCTION POLY) Procedures: HE/4, Gross/Micro L4/2 ---- Patient: Kimmy Mcarthur [id number] (Continued) ---- Signed (signature on file) Jasiel Sanon MD 04/13/24 1225 Normal [facility] Office Visiton 03-14-2024 Follow-up visit [id number] Kimmy Mcarthur 1945 M Date Provider Department Center 03/14/2024 [address] [facility] Family History Problem Relation Age of Onset Cancer Father Diabetes Father Family Status - Relation Status Age at Father Level of Service:73168 [place] OFFICE/OUTPATIENT ESTABLISHED MOD MDM 30 MIN Normal [facility] MLR HEMOGLOBIN A1Con 024 Glucose [Mass/Vol] 180 mg/dL [facility] HbA1c (Bld) [Mass fraction] 7.9 % High 4.5 - 6.2 % [facility] Comment on above: ADA RECOMMENDED LIMI T 4.0 - 6.0 ADA THERAPEUTIC TARGET < 7.0 ACTION SUGGESTED > 7.0 Interpretation and review of laboratory results Abnormal [facility] 36on 02-13-2024 36 His LDL from 12/07/19 24 is 46. Would you still like for me to try to get Leqvio approved for him? Normal [facility] XR SPINE THORACIC 3 VWSon XR [...] Jami Ko MD on 01/11/2024 4:27 PM Normal [facility] 36on 01-04-2024 36 PCP Marisol [...] taking, can you please call Marisol at [phone] and let her know. THANKS!!! Normal [facility] 36on 12-16-2023 36 Regarding stress marysol [...] time. Thank you Patient's made aware. Normal [facility] Basic metabolic 1998 panelon 11-29-2023 Anion gap [Moles/Vol] 8 mmol/L 5 - 15 mmol/L [facility] Calcium [Mass/Vol] 9.2 mg/dL 8.5 - 10. 5 mg/dL [facility] Chloride [Moles/Vol] 104 mmol/L 98 - 10 9 mmol/L [facility] CO2 [Moles/Vol] 27 mmol/L 22 - 32 mmol/L [facility] Creatine [Mass/Vol] 1.01 mg/dL 0.60 - 1 .30 mg/dL [facility] Comment on above: METHOD TRACEABLE TO IDMS STANDARD GFR/1.73 sq M.predicted among non-blacks MDRD (S/P/Bld) [Vol rate/Area] 77 mL/min/{1.73_m2} - PINF [facility] Comment on above: Reported eGFR is based on the CKD-EPI 2020 equation that does not use a race coefficient. PERFORMED AT [facility] [address],[place] [address] Glucose [Mass/Vol] 187 mg/dL High 65 - 99 mg/dL [facility] Interpretation and review of laboratory results [facility]normal [facility] Potassium [Moles/Vol] 4.2 mmol/L 3.5 - 5.0 mmol/L [facility] Sodium [Moles/Vol] 139 mmol/L 134 - 146 mmol/L [facility] Urea nitrogen [Mass/Vol] 22 mg/dL 5 - 27 mg/dL [facility] Comprehensive metabolic pane aaron 05-04-2023 Albumin [Mass/Vol] 4.0 g/dL 3.2 - 5.3 g/dL [facility] ALP [Catalytic activity/Vol] 89 U/L 39 - 130 U/L [facility] ALT No additional P-5'-P [Catalytic activity/Vol] 15 U/L 0 - 40 U/L [facility] Anion gap [Moles/Vol] 9 mmol/L 5 - 15 mmol/L [facility] AST [Catalytic activity/Vol] 13 U/L 0 - 41 U/L [facility] Bilirubin [Mass/Vol] 1.1 mg/dL 0.3 - 1 .2 mg/dL [facility] Calcium [Mass/Vol] 8.9 mg/dL 8.5 - 10. 5 mg/dL [facility] Chloride [Moles/Vol] 104 mmol/L 98 - 10 9 mmol/L [facility] CO2 [Moles/Vol] 28 mmol/L 22 - 32 mmol/L [facility] Creatine [Mass/Vol] 0.80 mg/dL 0.60 - 1 .30 mg/dL [facility] Comment on above: METHOD TRACEABLE TO [facility] STANDARD GFR/1.73 sq M.predicted among non-blacks MDRD (S/P/Bld) [Vol rate/Area] mL/min/{1.73_m2} - [facility] Comment on above: Reported eGFR is based on the CKD-EPI 2020 equation that does not use a race coefficient. PERFORMED AT [facility] [address],[place] [address] Glucose [Mass/Vol] 90 mg/dL 65 - 99 mg/dL [facility] Potassium [Moles/Vol] 3.2 mmol/L Low 3.5 - 5.0 mmol/L [facility] Protein [Mass/Vol] 6.3 g/dL 6.0 - 8.0 g/dL [facility] Sodium [Moles/Vol] 141 mmol/L 134 - 146 mmol/L [facility] Urea nitrogen [Mass/Vol] 20 mg/dL 5 - 27 mg/dL [facility] No Panel Informationon 05-04 Interpretation and review of laboratory results Abnormal [facility] Urinalysis, manual onlyon Bilirubin Ql (U) Negative Negative [facility] Color (U) YELLOW YELLOW [facility] Epithelial cells Auto (Urine sed) [#/Area] <1 [facility] Glucose (U) [Mass/Vol] mg/dL Abnormal Negat bossman mg/dL [facility] Hemoglobin Auto test strip Ql (U) Negative Negative [facility] Hyaline casts (Urine sed) [#/Area] 1 /[LPF] [facility] Ketones (U) [Mass/Vol] Negative Negat bossman mg/dL [facility] Leukocyte esterase Auto test strip Ql (U) Negative Negative [facility] Comment on above: HIGH CONCENTRATIONS OF GLUCOSE MAY DECREASE THE REACTIVITY OF THE DIPSTICK LEUKOCYTE TEST PAD. Mucus Ql (Urine sed) PRESENT Abnormal NONE [facility] Nitrite Auto test strip Ql (U) Negative Negative [facility] pH (U) 5.5 [pH] 5.0 - 8.5 [facility] Protein (U) [Mass/Vol] Trace Abnormal Negat bossman mg/dL [facility] RBC Auto (Urine sed) [#/Area] 1 [facility] Specific gravity Refractometry automated (U) [Rel density] 1.023 1.003 - 1.035 [facility] Turbidity Ql (U) CLEAR CLEAR [facility] Urobilinogen Qn (U) <1.1 NINF [facility] WBC Auto (Urine sed) [#/Area] 1 [facility] CBC AUTO DIFFon 06-11-2022 BASO # 0.0 103/ul Normal 0.0-0.1 [facility] Comment on above: Performed By: #### C BC #### [facility] [address] [place] [address] Dr. Enoch Stein Basophils/100 WBC (Bld) 0.6 % Normal 0.2-2.0 [facility] Comment on above: Performed By: #### C BC #### [facility] [address] [place] [address] Dr. Enoch Stein EO # 0.2 103/ul Normal 0.0-0.7 [facility] Comment on above: Performed By: #### C BC #### [facility] [address] [place] [address] Dr. Enoch Stein Eosinophils/100 WBC (Bld) 2.9 % Normal 0.9-7.0 [facility] Comment on above: Performed By: #### C BC #### [facility] [address] [place] [address] Dr. Enoch Stein Erythrocyte distribution width (RBC) [Ratio] 13.7 % Normal 11.0-15.0 [facility] Comment on above: Performed By: #### C BC #### [facility] [address] [place] [address] Dr. Enoch Stein Hematocrit (Bld) [Volume fraction] 35.6 % Critically low 42.0-54.0 [facility] Comment on above: Performed By: #### C BC #### [facility] [address] [place] [address] Dr. Enoch Stein Hemoglobin (Bld) [Mass/Vol] 11.7 g/dL Critically low 14.0-18.0 [facility] Comment on above: Performed By: #### C BC #### [facility] [address] [place] [address] Dr. Enoch Stein IG # 0.03 10e3/ul Normal 0.00-0.03 [facility] Comment on above: Performed By: #### C BC #### [facility] [address] [place] [address] Dr. Enoch Stein IG % 0.5 % Normal 0.0-0.5 [facility] Comment on above: Performed By: #### C BC #### [facility] [address] [place] [address] Dr. Enoch Stein LYMPH # 2.2 103/ul Normal 1.2-3.8 [facility] Comment on above: Performed By: #### C BC #### [facility] [address] [place] [address] Dr. Enoch Stein Lymphocytes/100 WBC (Bld) 35.4 % Normal 20.5-60.0 [facility] Comment on above: Performed By: #### C BC #### [facility] [address] [place] [address] Dr. Enoch Stein MANUAL DIFF REQ NO Normal [facility] Comment on above: Performed By: #### C BC #### [facility] [address] [place] [address] Dr. Enoch Stein MCH (RBC) [Entitic mass] 30.5 pg Normal 25.9-34.0 [facility] Comment on above: Performed By: #### C BC #### [facility] [address] [place] [address] Dr. Enoch Stein MCHC (RBC) [Mass/Vol] 32.9 g/dL Normal 29.9-35.2 [facility] Comment on above: Performed By: #### C BC #### [facility] [address] [place] [address] Dr. Enoch Stein MCV (RBC) [Entitic vol] 92.7 fL Normal 80.0-94.0 [facility] Comment on above: Performed By: #### C BC #### [facility] [address] [place] [address] Dr. Enoch Stein MONO # 0.5 103/ul Normal 0.3-0.8 [facility] Comment on above: Performed By: #### C BC #### [facility] [address] [place] [address] Dr. Enoch Stein Monocytes/100 WBC (Bld) 7.6 % Normal 1.7-12.0 [facility] Comment on above: Performed By: #### C BC #### [facility] [address] [place] [address] Dr. Enoch Stein NEUT # 3.3 103/ul Normal 1.4-6.5 [facility] Comment on above: Performed By: #### C BC #### [facility] [address] [place] [address] Dr. Enoch Stein Neutrophils/100 WBC (Bld) 53.0 % Normal 43.0-75.0 [facility] Comment on above: Performed By: #### C BC #### [facility] [address] [place] [address] Dr. Enoch Stein Platelet mean volume (Bld) [Entitic vol] 9.4 fL Critically low 9.5-13.5 [facility] Comment on above: Performed By: #### C BC #### [facility] [address] [place], [place] [address] Dr. Enoch Stein PLT 225 103/ul Normal 150-450 [facility] Comment on above: Performed By: #### C BC #### [facility] [address] [place] [address] [address] Enoch Stein RBC 3.84 106/ul Critically low 4.70-6.10 [facility] Comment on above: Performed By: #### C BC #### [facility] [address] [id number] Enoch Stein WBC 6.2 103/ul Normal 4.0-11.0 [facility] Comment on above: Performed By: #### C BC #### [facility] [address] [place] [address] Dr. Enoch Stein ECHOCARDIO M/2D COMPLETEon 0 06-11-2022 ECHOCARDIO M/2D COMPLETE Patient: KIMMY MCARTHUR Exam Date: 06/11/2022 : 1945 Gender:M Ordering : MARCO CONDON Admission #: [id number] Family : ELO BOYCE [employer]BBER Order #: [id number] CLICK HERE TO VIEW EXAM ECHOCARDIOGRAM REPORT PROCEDURE: CARDIO PULMONARY ECHOCARDIO M/2D COMP INDICATIONS: Dyspnea on exertion, post-COVID chronic dyspnea, CA, PTCA, hypertension, diabetes COMPARISON: None. DESCRIPTION: COMPLETE [...] Campo M.D. on 06/11/2022 at 14:32 Normal [facility] FERRITINon 06-11-2022 Ferritin [Mass/Vol] 52.0 ng/mL Normal 26.0-388.0 [facility] Comment on above: Performed By: #### F ERR, IRON, VITB12 #### [facility] [address] [address] [address] Enoch Stein GLYCOHEMOGLOBIN A1Con 2022 ADA RECOMMENDATION SEE BELOW Normal [facility] Comment on above: Result Comment: ADA RECOMMENDED LIMIT 4.0 - 6.0 ADA THERAPEUTIC TARGET < 7.0 ACTION SUGGESTED > 7.0 Performed By: #### F ERR, IRON, VITB12 #### [facility] [address] [address] [address] Enoch Stein Glucose [Mass/Vol] 180 mg/dL Normal [facility] Comment on above: Performed By: #### F ERR, IRON, VITB12 #### [facility] [address] [address] [address] Enoch Stein HbA1c (Bld) [Mass fraction] 7.9 % Critically high 4.5-6.2 [facility] Comment on above: Performed By: #### F ERR, IRON, VITB12 #### [facility] [address] [address] [address] Enoch Stein IRONon 06-11-2022 Iron [Mass/Vol] 86.0 ug/dL Normal 65.0-175.0 [facility] Comment on above: Performed By: #### F ERR, IRON, VITB12 #### [facility] [address] [address] [address] Enoch Stein LIPID PROFILEon 06-11-2022 CHOL-HDL RATIO NORM SEE BELOW Normal [facility] Comment on above: Result Comment: 3.3 - 4.4 LOW RISK 4.4 - 7.1 AVERAGE RISK 7.1 - 11.0 MODERATE RISK >11.0 HIGH RISK Performed By: #### F ERR, IRON, VITB12 #### [facility] [address] [address] [address] Encoh Stein Cholesterol [Mass/Vol] 113 mg/dL Normal <=200 [facility] Comment on above: Performed By: #### F ERR, IRON, VITB12 #### [facility] [address] [address] [address] Enoch Stein Cholesterol in HDL [Mass/Vol] 52 mg/dL Normal 40-60 [facility] Comment on above: Performed By: #### F ERR, IRON, VITB12 #### [facility] [address] [address] [address] Enoch Stein Cholesterol in LDL [Mass/Vol] 47.0 mg/dL Normal [facility] Comment on above: Performed By: #### F ERR, IRON, VITB12 #### [facility] [address] [address] [address] Enoch Stein Cholesterol.total/Monalisa sterol in HDL [Mass ratio] 2.2 {ratio} Normal [facility] Comment on above: Performed By: #### F ERR, IRON, VITB12 #### [facility] [address] [address] [address] Enoch Stein HDL NORMAL > or = 60 mg/dl - LO W CARDIOVASCULAR RISK <40 mg/dl - HIGH CARDIOVASCULAR RISK Normal [facility] Comment on above: Performed By: #### F ERR, IRON, VITB12 #### [facility] [address] [address] [address] Enoch Stein LDL CALC NORMAL SEE BELOW Normal [facility] Comment on above: Result Comment: <100 mg/dl OPTIMAL 100 - 129 mg/dl NEAR OR ABOVE OPTIMAL 130 - 159 mg/dl BORDERLINE HIGH 160 - 189 mg/dl HIGH >190 mg/dl VERY HIGH Performed By: #### F ERR, IRON, VITB12 #### [facility] [address] [address] [address] Enoch Stein Triglyceride [Mass/Vol] 70 mg/dL Normal <=[address] [facility] Comment on above: Performed By: #### F ERR, IRON, VITB12 #### [facility] [address] [address] [address] Enoch Stein VLDL CALC 14.0 mg/dL Normal [facility] Comment on above: Performed By: #### F ERR, IRON, VITB12 #### [facility] [address] [address] [address] Enoch Stein MICROALBUMIN, RAND URon 05-26 mALB <1.3 Normal <=30.0 [facility] Comment on above: Performed By: #### M ALBR #### [facility] [address] [address] [address] Enoch Stein PROF 14(COMP METB)on 023 Albumin [Mass/Vol] 3.7 g/dL Normal 3.4-5.0 [facility] Comment on above: Performed By: #### F ERR, IRON, VITB12 #### [facility] [address] [place] [address] Dr. Enoch Stein Albumin/Globulin [Mass ratio] 1.2 {ratio} Normal [facility] Comment on above: Performed By: #### F ERR, IRON, VITB12 #### [facility] [address] [address] [address] Enoch Stein ALP [Catalytic activity/Vol] 90 U/L Normal 46-116 [facility] Comment on above: Performed By: #### F ERR, IRON, VITB12 #### [facility] [address] [place] [address] Dr. Enoch Stein ALT [Catalytic activity/Vol] 34 U/L Normal 16-63 [facility] Comment on above: Performed By: #### F ERR, IRON, VITB12 #### [facility] [address] [place] [address] Dr. Enoch Stein Anion gap [Moles/Vol] 14.8 mmol/L Normal [facility] Comment on above: Performed By: #### F ERR, IRON, VITB12 #### [facility] [address] [place] [address] Dr. Enoch Stein AST [Catalytic activity/Vol] 22 U/L Normal 15-37 [facility] Comment on above: Performed By: #### F ERR, IRON, VITB12 #### [facility] [address] [place] [address] Dr. Enoch Stein Bilirubin [Mass/Vol] 0.6 mg/dL Normal 0.2-1.0 [facility] Comment on above: Performed By: #### F ERR, IRON, VITB12 #### [facility] [address] [place] [address] Dr. Enoch Stein Calcium [Mass/Vol] 9.7 mg/dL Normal 8.5-10.1 [facility] Comment on above: Performed By: #### F ERR, IRON, VITB12 #### [facility] [address] [place] [address] Dr. Enoch Stein Chloride [Moles/Vol] 105 mmol/L Normal 98-107 [facility] Comment on above: Performed By: #### F ERR, IRON, VITB12 #### [facility] [address] [place] [address] Dr. Enoch Stein CO2 [Moles/Vol] 26.7 mmol/L Normal 21.0-32.0 [facility] Comment on above: Performed By: #### F ERR, IRON, VITB12 #### [facility] [address] [address] [address] Enoch Stein Creatinine [Mass/Vol] 0.78 mg/dL Normal 0.70-1.30 [facility] Comment on above: Performed By: #### F ERR, IRON, VITB12 #### [facility] [address] [address] [address] Enoch Stein EGFR-AF MALAWIAN >60 Normal >=60 [facility] Comment on above: Performed By: #### F ERR, IRON, VITB12 #### [facility] [address] [place] [address] Dr. Enoch Stein EGFR-NON AF MALAWIAN >60 Normal >=60 [facility] Comment on above: Performed By: #### F ERR, IRON, VITB12 #### [facility] [address] [address] [address] Enoch Stein Globulin (S) [Mass/Vol] 3.2 g/dL Normal [facility] Comment on above: Performed By: #### F ERR, IRON, VITB12 #### [facility] [address] [place] [address] Dr. Enoch Stein Glucose [Mass/Vol] 179 mg/dL Critically high 74-106 [facility] Comment on above: Performed By: #### F ERR, IRON, VITB12 #### [facility] [address] [address] [address] Enoch Stein Potassium [Moles/Vol] 4.5 mmol/L Normal 3.5-5.1 [facility] Comment on above: Performed By: #### F ERR, IRON, VITB12 #### [facility] [address] [address] [address] Enoch Stein Protein [Mass/Vol] 6.9 g/dL Normal 6.4-8.2 [facility] Comment on above: Performed By: #### F ERR, IRON, VITB12 #### [facility] [address] [place] [address] Dr. Enoch Stein Sodium [Moles/Vol] 142 mmol/L Normal 136-145 [facility] Comment on above: Performed By: #### F ERR, IRON, VITB12 #### [facility] [address] [place] [address] Dr. Enoch Stein Urea nitrogen [Mass/Vol] 19.0 mg/dL Critically high 7.0-18.0 [facility] Comment on above: Performed By: #### F ERR, IRON, VITB12 #### [facility] [address] [place] [address] Dr. Enoch Stein Urea nitrogen/Creatinine [Mass ratio] 24.4 mg/mg Normal [facility] Comment on above: Performed By: #### F ERR, IRON, VITB12 #### [facility] [address] [place] [address] Dr. Enoch Stein UA RANDOM W/MICROSCOPICon BACTERIA NONE SEEN Normal NONE SEEN [facility] Comment on above: Performed By: #### U AMIC #### [facility] [address] [place] [address] Dr. Enoch Stein Bilirubin Ql (U) Negative Normal NEGATIVE [facility] Comment on above: Performed By: #### U AMIC #### [facility] [address] [place] [address] Dr. Enoch Stein CAST NONE SEEN Normal NONE SEEN [facility] Comment on above: Performed By: #### U AMIC #### [facility] [address] [place] [address] Dr. Enoch Stein Clarity (U) CLEAR Normal CLEAR [facility] Comment on above: Performed By: #### U AMIC #### [facility] [address] [place] [address] Dr. Enoch Stein Color (U) LT. YELLOW Normal YELLOW [facility] Comment on above: Performed By: #### U AMIC #### [facility] [address] [place] [address] Dr. Enoch Stein Crystals LM Nom (Urine sed) NONE SEEN Normal NONE SEEN [facility] Comment on above: Performed By: #### U AMIC #### [facility] [address] [address] [address] Enoch Stein Epithelial cells LM Ql (Urine sed) NONE SEEN Normal NONE SEEN /RARE [facility] Comment on above: Performed By: #### U AMIC #### [facility] [address] [address] [address] Enoch Stein Glucose Ql (U) 250 mg/dl Abnormal NEGATIVE [facility] Comment on above: Performed By: #### U AMIC #### [facility] [address] [address] [address] Enoch Stein Hemoglobin Ql (U) Negative Normal NEGATIVE [facility] Comment on above: Performed By: #### U AMIC #### [facility] [address] [place] [address] Dr. Enoch Stein Ketones Ql (U) Negative Normal NEGATIVE [facility] Comment on above: Performed By: #### U AMIC #### [facility] [address] [address] [address] Enoch Stein LEUKOCYTES Negative Normal NEGATIVE [facility] Comment on above: Performed By: #### U AMIC #### [facility] [address] [address] [address] Enoch Stein MUCOUS TRACE Abnormal NONE SEEN [facility] Comment on above: Performed By: #### U AMIC #### [facility] [address] [address] [address] Enoch Stein Nitrite Ql (U) Negative Normal NEGATIVE [facility] Comment on above: Performed By: #### U AMIC #### [facility] [address] [address] [address] Enoch Stein pH (U) 5.5 [pH] Normal 5-9 [facility] Comment on above: Performed By: #### U AMIC #### [facility] [address] [address] [address] Enoch Stein RBC NONE SEEN Abnormal 0-2 [facility] Comment on above: Performed By: #### U AMIC #### [facility] [address] [place] [address] Dr. Enoch Stein SPEC GRAVITY 1.020 Normal 1.005-<=1.02 5 [facility] Comment on above: Performed By: #### U AMIC #### [facility] [address] [place] [address] Dr. Enoch Stein UA PROTEIN Negative Normal NEGATIVE/ TRACE [facility] Comment on above: Performed By: #### U AMIC #### [facility] [address] [place] [address] Dr. Enoch Stein Urobilinogen Qn (U) 0.2 {Reilly'U}/dL Normal 0.2 - 1. 0 [facility] Comment on above: Performed By: #### U AMIC #### [facility] [address] [place] [address] Dr. Enoch Stein WBC NONE SEEN Normal NONE SEEN [facility] Comment on above: Performed By: #### U AMIC #### [facility] [address] [place] [address] Dr. Enoch Stein VITAMIN B12on 06-11-2022 Cobalamin (Vitamin B12) [Mass/Vol] 413.0 pg/mL Normal 193.0-986.0 [facility] Comment on above: Performed By: #### F ERR, IRON, VITB12 #### [facility] [address] [place] [address] ABD/PELV W CONon [...] by: SANJAY REECE Date: 2022-01-06 16:24 Normal [facility] AMYLASEon 01-05-2022 Amylase [Catalytic activity/Vol] 55 U/L Normal 25-115 [facility] Comment on above: Performed By: #### F ERR, IRON, VITB12 #### [facility] [address] [place] [address] Dr. Enoch Stein CBC AUTO DIFFon 01-05-2022 BASO # 0.0 103/ul Normal 0.0-0.1 [facility] Comment on above: Performed By: #### F ERR, IRON, VITB12 #### [facility] [address] [address] [address] Enoch Stein Basophils/100 WBC (Bld) 0.5 % Normal 0.2-2.0 [facility] Comment on above: Performed By: #### F ERR, IRON, VITB12 #### [facility] [address] [address] [address] Enoch Stein EO # 0.3 103/ul Normal 0.0-0.7 [facility] Comment on above: Performed By: #### F ERR, IRON, VITB12 #### [facility] [address] [address] [address] Enoch Stein Eosinophils/100 WBC (Bld) 3.7 % Normal 0.9-7.0 [facility] Comment on above: Performed By: #### F ERR, IRON, VITB12 #### [facility] [address] [place] [address] Dr. Enoch Stein Erythrocyte distribution width (RBC) [Ratio] 13.2 % Normal 11.0-15.0 [facility] Comment on above: Performed By: #### F ERR, IRON, VITB12 #### [facility] [address] [place] [address] Dr. Enoch Stein Hematocrit (Bld) [Volume fraction] 39.3 % Critically low 42.0-54.0 [facility] Comment on above: Performed By: #### F ERR, IRON, VITB12 #### [facility] [address] [place] [address] Dr. Enoch Stein Hemoglobin (Bld) [Mass/Vol] 13.0 g/dL Critically low 14.0-18.0 [facility] Comment on above: Performed By: #### F ERR, IRON, VITB12 #### [facility] [address] [place] [address] Dr. Enoch Stein IG # 0.04 10e3/ul Critically high 0.00-0.03 [facility] Comment on above: Performed By: #### F ERR, IRON, VITB12 #### [facility] [address] [place] [address] Dr. Enoch Stein IG % 0.5 % Normal 0.0-0.5 [facility] Comment on above: Performed By: #### F ERR, IRON, VITB12 #### [facility] [address] [place] [address] Dr. Enoch Stein LYMPH # 1.6 103/ul Normal 1.2-3.8 [facility] Comment on above: Performed By: #### F ERR, IRON, VITB12 #### [facility] [address] [place] [address] Dr. Enoch Stein Lymphocytes/100 WBC (Bld) 20.4 % Critically low 20.5-60.0 [facility] Comment on above: Performed By: #### F ERR, IRON, VITB12 #### [facility] [address] [place] [address] Dr. Enoch Stein MANUAL DIFF REQ NO Normal [facility] Comment on above: Performed By: #### F ERR, IRON, VITB12 #### [facility] [address] [place] [address] Dr. Enoch Stein MCH (RBC) [Entitic mass] 30.5 pg Normal 25.9-34.0 [facility] Comment on above: Performed By: #### F ERR, IRON, VITB12 #### [facility] [address] [place] [address] Dr. Enoch Stein MCHC (RBC) [Mass/Vol] 33.1 g/dL Normal 29.9-35.2 [facility] Comment on above: Performed By: #### F ERR, IRON, VITB12 #### [facility] [address] [place] [address] Dr. Enoch Stein MCV (RBC) [Entitic vol] 92.3 fL Normal 80.0-94.0 [facility] Comment on above: Performed By: #### F ERR, IRON, VITB12 #### [facility] [address] [place] [address] Dr. Enoch Stein MONO # 0.4 103/ul Normal 0.3-0.8 [facility] Comment on above: Performed By: #### F ERR, IRON, VITB12 #### [facility] [address] [place] [address] Dr. Enoch Stein Monocytes/100 WBC (Bld) 4.7 % Normal 1.7-12.0 [facility] Comment on above: Performed By: #### F ERR, IRON, VITB12 #### [facility] [address] [place] [address] Dr. Enoch Stein NEUT # 5.6 103/ul Normal 1.4-6.5 [facility] Comment on above: Performed By: #### F ERR, IRON, VITB12 #### [facility] [address] [place], [place] [id number] Dr. Enoch Stein Neutrophils/100 WBC (Bld) 70.2 % Normal 43.0-75.0 [facility] Comment on above: Performed By: #### F ERR, IRON, VITB12 #### [facility] [address] [place] [address] Dr. Enoch Stein Platelet mean volume (Bld) [Entitic vol] 10.2 fL Normal 9.5-13.5 [facility] Comment on above: Performed By: #### F ERR, IRON, VITB12 #### [facility] [address] [place] [address] Dr. Enoch Stein PLT 192 103/ul Normal 150-450 [facility] Comment on above: Performed By: #### F ERR, IRON, VITB12 #### [facility] [address] [place] [address] Dr. Enoch Stein RBC 4.26 106/ul Critically low 4.70-6.10 [facility] Comment on above: Performed By: #### F ERR, IRON, VITB12 #### [facility] [address] [place] [address] Dr. Enoch Stein WBC 8.0 103/ul Normal 4.0-11.0 [facility] Comment on above: Performed By: #### F ERR, IRON, VITB12 #### [facility] [address] [place] [address] Dr. Enoch Stein CULTURE URINEon 01-05-2022 CULTURE URINE Culture Observations : NO GROWTH. Normal [facility] Comment on above: Performed By: #### F ERR, IRON, VITB12 #### [facility] [address] [place] [address] Dr. Enoch Stein GLYCOHEMOGLOBIN A1Con 2021 ADA RECOMMENDATION SEE BELOW Normal [facility] Comment on above: Result Comment: ADA RECOMMENDED LIMIT 4.0 - 6.0 ADA THERAPEUTIC TARGET < 7.0 ACTION SUGGESTED > 7.0 Performed By: #### A 1C #### [facility] [address] [place] [address] Dr. Enoch Stein Glucose [Mass/Vol] 166 mg/dL Normal [facility] Comment on above: Performed By: #### A 1C #### [facility] [address] [place] [address] Dr. Enoch Stein HbA1c (Bld) [Mass fraction] 7.4 % Critically high 4.5-6.2 [facility] Comment on above: Performed By: #### A 1C #### [facility] [address] [place] [address] Dr. Enoch Stein LIPASEon 01-05-2022 Lipase [Catalytic activity/Vol] 86.0 U/L Normal 73.0-393.0 [facility] Comment on above: Performed By: #### F ERR, IRON, VITB12 #### [facility] [address] [place] [address] Dr. Enoch Stein PROF 14(COMP METB)on Albumin [Mass/Vol] 3.8 g/dL Normal 3.4-5.0 [facility] Comment on above: Performed By: #### F ERR, IRON, VITB12 #### [facility] [address] [place] [address] Dr. Enoch Stein Albumin/Globulin [Mass ratio] 1.1 {ratio} Normal [facility] Comment on above: Performed By: #### F ERR, IRON, VITB12 #### [facility] [address] [place] [address] Dr. Enoch Stein ALP [Catalytic activity/Vol] 101 U/L Normal 46-116 [facility] Comment on above: Performed By: #### F ERR, IRON, VITB12 #### [facility] [address] [place] [address] Dr. Enoch Stein ALT [Catalytic activity/Vol] 25 U/L Normal 16-63 [facility] Comment on above: Performed By: #### F ERR, IRON, VITB12 #### [facility] [address] [place] [address] Dr. Enoch Stein Anion gap [Moles/Vol] 15.2 mmol/L Normal [facility] Comment on above: Performed By: #### F ERR, IRON, VITB12 #### [facility] [address] [place] [address] Dr. Enoch Stein AST [Catalytic activity/Vol] 14 U/L Critically low 15-37 [facility] Comment on above: Performed By: #### F ERR, IRON, VITB12 #### [facility] [address] [place] [address] Dr. Enoch Stein Bilirubin [Mass/Vol] 1.0 mg/dL Normal 0.2-1.0 [facility] Comment on above: Performed By: #### F ERR, IRON, VITB12 #### [facility] [address] [place] [address] Dr. Enoch Stein Calcium [Mass/Vol] 9.4 mg/dL Normal 8.5-10.1 [facility] Comment on above: Performed By: #### F ERR, IRON, VITB12 #### [facility] [address] [place] [address] Dr. Enoch Stein Chloride [Moles/Vol] 104 mmol/L Normal 98-107 [facility] Comment on above: Performed By: #### F ERR, IRON, VITB12 #### [facility] [address] [place] [address] Dr. Enoch Stein CO2 [Moles/Vol] 27.1 mmol/L Normal 21.0-32.0 [facility] Comment on above: Performed By: #### F ERR, IRON, VITB12 #### [facility] [address] [place] [address] Dr. Enoch Stein Creatinine [Mass/Vol] 1.23 mg/dL Normal 0.70-1.30 [facility] Comment on above: Performed By: #### F ERR, IRON, VITB12 #### [facility] [address] [place] [address] Dr. Enoch Stein EGFR-AF MALAWIAN >60 Normal >=60 [facility] Comment on above: Performed By: #### F ERR, IRON, VITB12 #### [facility] [address] [place] [address] Dr. Enoch Stein EGFR-NON AF MALAWIAN 57 mL/min/1.73m2 Critically low >=60 [facility] Comment on above: Performed By: #### F ERR, IRON, VITB12 #### [facility] [address] [address] [address] Enoch Stein Globulin (S) [Mass/Vol] 3.4 g/dL Normal [facility] Comment on above: Performed By: #### F ERR, IRON, VITB12 #### [facility] [address] [address] [address] Enoch Stein Glucose [Mass/Vol] 165 mg/dL Critically high 74-106 [facility] Comment on above: Performed By: #### F ERR, IRON, VITB12 #### [facility] [address] [place] [address] Dr. Enoch Stein Potassium [Moles/Vol] 5.3 mmol/L Critically high 3.5-5.1 [facility] Comment on above: Performed By: #### F ERR, IRON, VITB12 #### [facility] [address] [place] [address] Dr. Enoch Stein Protein [Mass/Vol] 7.2 g/dL Normal 6.4-8.2 [facility] Comment on above: Performed By: #### F ERR, IRON, VITB12 #### [facility] [address] [place] [address] Dr. Enoch Stein Sodium [Moles/Vol] 141 mmol/L Normal 136-145 [facility] Comment on above: Performed By: #### F ERR, IRON, VITB12 #### [facility] [address] [place] [address] Dr. Enoch Stien Urea nitrogen [Mass/Vol] 26.0 mg/dL Critically high 7.0-18.0 [facility] Comment on above: Performed By: #### F ERR, IRON, VITB12 #### [facility] [address] [place] [address] Dr. Enoch Stein Urea nitrogen/Creatinine [Mass ratio] 21.1 mg/mg Normal [facility] Comment on above: Performed By: #### F ERR, IRON, VITB12 #### [facility] [address] [address] [address] Enoch Stein [facility] SED RATE 4 mm/hr Normal <=20 [facility] Comment on above: Performed By: #### S EDR #### [facility] [address] [address] [address] Enoch Stein UA RANDOM W/MICROSCOPICon BACTERIA TRACE Abnormal NONE SEEN [facility] Comment on above: Performed By: #### U AMIC #### [facility] [address] [address] [address] Enoch Stein Bilirubin Ql (U) SMALL Abnormal NEGATIVE [facility] Comment on above: Performed By: #### U AMIC #### [facility] [address] [place] [address] Dr. Enoch Stein CA OX CRYSTALS FEW Normal [facility] Comment on above: Performed By: #### U AMIC #### [facility] [address] [address] [address] Enoch Stein CAST SEEN Abnormal NONE SEEN [facility] Comment on above: Performed By: #### U AMIC #### [facility] [address] [address] [address] Enoch Stein Clarity (U) CLEAR Normal CLEAR [facility] Comment on above: Performed By: #### U AMIC #### [facility] [address] [address] [address] Enoch Stein Color (U) DK. YELLOW Normal YELLOW [facility] Comment on above: Performed By: #### U AMIC #### [facility] [address] [address] [address] Enoch Stein Crystals LM Nom (Urine sed) SEEN Abnormal NONE SEEN [facility] Comment on above: Performed By: #### U AMIC #### [facility] [address] [place] [address] Dr. Enoch Stein Epithelial cells LM Ql (Urine sed) RARE Normal NONE SEEN /RARE [facility] Comment on above: Performed By: #### U AMIC #### [facility] [address] [address] [address] Enoch Stein Glucose Ql (U) Negative Normal NEGATIVE [facility] Comment on above: Performed By: #### U AMIC #### [facility] [address] [address] [address] Enoch Stein Hemoglobin Ql (U) Negative Normal NEGATIVE [facility] Comment on above: Performed By: #### U AMIC #### [facility] [address] [address] [address] Enoch Stein HYALINE CAST MODERATE Normal [facility] Comment on above: Performed By: #### U AMIC #### [facility] [address] [address] [address] Enoch Stein Ketones Ql (U) 15 mg/dl Abnormal NEGATIVE [facility] Comment on above: Performed By: #### U AMIC #### [facility] [address] [address] [address] Enoch Stein LEUKOCYTES Negative Normal NEGATIVE [facility] Comment on above: Performed By: #### U AMIC #### [facility] [address] [address] [address] Enoch Stein MUCOUS MODERATE Abnormal NONE SEEN [facility] Comment on above: Performed By: #### U AMIC #### [facility] [address] [address] [address] Enoch Stein Nitrite Ql (U) Negative Normal NEGATIVE [facility] Comment on above: Performed By: #### U AMIC #### [facility] [address] [address] [address] Enoch Stein pH (U) 6.0 [pH] Normal 5-9 [facility] Comment on above: Performed By: #### U AMIC #### [facility] [address] [address] [address] Enoch Stein RBC 0-2 Normal 0-2 [facility] Comment on above: Performed By: #### U AMIC #### [facility] [address] [address] [address] Enoch Stein SPEC GRAVITY >=1.030 Abnormal 1.005-<=1.02 5 [facility] Comment on above: Performed By: #### U AMIC #### [facility] [address] [address] [address] Enoch Stein UA PROTEIN 100 mg/dl Abnormal NEGATIVE/ TRACE [facility] Comment on above: Performed By: #### U AMIC #### [facility] [address] [address] [address] Enoch Stein Urobilinogen Qn (U) 1.0 {Reilly'U}/dL Normal 0.2 - 1. 0 [facility] Comment on above: Performed By: #### U AMIC #### [facility] [address] [place] [address] Dr. Enoch Stein WBC 0-2 Abnormal NONE SEEN [facility] Comment on above: Performed By: #### U AMIC #### [facility] [address] [place] [address] Dr. Enoch Stein ECHOCARDIO M/2D COMPLETEon 0 10-14-2021 ECHOCARDIO M/2D COMPLETE Patient: KIMMY MCARTHUR Exam Date: 10/14/2021 : 1945 Gender:M Ordering : DWAIN RAY [facility] Admission #: [id number] Family : ELO BOYCE [facility] Order #: [id number] CLICK HERE TO VIEW EXAM ECHOCARDIOGRAM REPORT [...] Campo M.D. on 10/14/2021 at 16:57 Normal [facility] 03-04-2021 [facility] Department of Radiology [address] [place] [id number] ======== Patient Name: KIMMY MCARTHUR : 1945 Sex: M Age: Race: White Pt. Location: [facility] Patient Status: D Ordered Date: 01/28/2021 4:35:00 PM Completed Date: 03/04/2021 10:46 AM Requesting Provider: ALEX REECE Attending Provider: ALEX REECE Report Copy To: PRABHJOT VILLATORO Signs & Symptoms: I65.29 Occlusion and stenosis of unspecified carotid artery I10 History: [facility] patient will need labs Need Wed appt medicare no pc required [address] / i65.29 med nec passed *kw 02/04/21 [...] viewed on a separate workstation. The [place] Symptomatic Carotid Endarterectomy Trial (NASCET) method for [...] achievable Electronically signed: Troy Wadsworth. Transcribed by: [email or web address], User Resident: TROY WADSWORTH Electronically Signed by: TROY WADSWORTH @ 03/08/2021 08:19 AM I personally read this/these film(s) with this resident Normal [facility] Vital Signs Date Time Vital Sign Value Performing Clinician Facility 01-03-2025 09:51-0400 Body temperature 98.1 [degF] Marisol Boyce [employer] Work Phone: [facility] 01-03-2025 09:51-0400 Body weight 76.88 kg Marisol Boyce [employer] Work Phone: [facility] 01-03-2025 09:51-0400 Diastolic blood pressure 62 mm[Hg] Marisol Boyce [employer] Work Phone: [facility] 01-03-2025 09:51-0400 Heart rate 54 /min Marisol Boyce [employer] Work Phone: [facility] 01-03-2025 09:51-0400 Respiratory rate 16 /min Marisol Boyce [employer] Work Phone: [facility] 01-03-2025 09:51-0400 SaO2% (BldA) [Mass fraction] 97 % Marisol Aichholz [employer] Work Phone: [facility] 01-03-2025 09:51-0400 Systolic blood pressure 118 mm[Hg] Marisol Aichholz [employer] Work Phone: [facility] 01-02-2025 11:07-0400 Body weight 77.16 kg Marisol Aichholz [employer] Work Phone: [facility] 01-02-2025 11:07-0400 Diastolic blood pressure 58 mm[Hg] Marisol Aichholz [employer] Work Phone: [facility] 01-02-2025 11:07-0400 Heart rate 56 /min Marisol Aichholz [employer] Work Phone: [facility] 01-02-2025 11:07-0400 SaO2% (BldA) [Mass fraction] 98 % Marisol Aichholz [employer] Work Phone: [facility] 01-02-2025 11:07-0400 Systolic blood pressure 122 mm[Hg] Marisol Aichholz [employer] Work Phone: [facility] 12-05-2024 11:09-0400 Body height 182.88 cm Marisol Aichholz Work Phone: [facility] 12-05-2024 11:09-0400 Body mass index (BMI) [Ratio] 22.9 kg/m2 Marisol Aichholz Work Phone: [facility] 12-05-2024 11:09-0400 Body temperature 97.8 [degF] Marisol Aichholz Work Phone: [facility] 12-05-2024 11:09-0400 Body weight 76.71 kg Marisol Aichholz Work Phone: [facility] 12-05-2024 11:09-0400 Diastolic blood pressure 46 mm[Hg] Marisol Aichholz Work Phone: [facility] 12-05-2024 11:09-0400 Heart rate 61 /min Marisol Aichholz Work Phone: [facility] 12-05-2024 11:09-0400 Respiratory rate 18 /min Marisol Aichholz Work Phone: [facility] 12-05-2024 11:09-0400 SaO2% (BldA) [Mass fraction] 97 % Marisol Aichholz Work Phone: [facility] 12-05-2024 11:09-0400 Systolic blood pressure 110 mm[Hg] Marisol Aichholz Work Phone: [facility] 09-26-2024 08:53-0400 Body mass index (BMI) [Ratio] 22.76 kg/m2 Marisol Aichholz [employer] Work Phone: [facility] 09-26-2024 08:53-0400 Body temperature 97.81 [degF] Marisol Aichholz [employer] Work Phone: [facility] 09-26-2024 08:53-0400 Body weight 76.11 kg Marisol Aichholz [employer] Work Phone: [facility] 09-26-2024 08:53-0400 Diastolic blood pressure 60 mm[Hg] Marisol Aichholz [employer] Work Phone: [facility] 09-26-2024 08:53-0400 Heart rate 60 /min Marisol Aichholz [employer] Work Phone: [facility] 09-26-2024 08:53-0400 Respiratory rate 18 /min Marisol Aichholz [employer] Work Phone: [facility] 09-26-2024 08:53-0400 SaO2% (BldA) [Mass fraction] 98 % Marisol Aichholz [employer] Work Phone: [facility] 09-26-2024 08:53-0400 Systolic blood pressure 128 mm[Hg] Marisol Maganaholz [employer] Work Phone: [facility] 08-15-2024 10:37-0400 Body mass index (BMI) [Ratio] 22.43 kg/m2 Marisolmarleen Maganaholz [employer] Work Phone: [facility] 08-15-2024 10:37-0400 Body temperature 98.49 [degF] Marisol Maganaholz [employer] Work Phone: [facility] 08-15-2024 10:37-0400 Body weight 75.03 kg Marisolmarleen Maganaholz [employer] Work Phone: [facility] 08-15-2024 10:37-0400 Diastolic blood pressure 68 mm[Hg] Marisol Chinoholz [employer] Work Phone: [facility] 08-15-2024 10:37-0400 Heart rate 51 /min Marisol Candelarioz [employer] Work Phone: [facility] 08-15-2024 10:37-0400 Respiratory rate 18 /min Marisol Chinoholz [employer] Work Phone: [facility] 08-15-2024 10:37-0400 SaO2% (BldA) [Mass fraction] 96 % Marisol Chinoholz [employer] Work Phone: [facility] 08-15-2024 10:37-0400 Systolic blood pressure 108 mm[Hg] Marisol Candelarioz [employer] Work Phone: [facility] 05-15-2024 09:26-0500 Body height 182.9 cm Marisol Chinoholz [employer] Work Phone: [facility] 05-15-2024 09:26-0500 Body mass index (BMI) [Ratio] 23.22 kg/m2 Marisol Medardohholz [employer] Work Phone: [facility] 05-15-2024 09:26-0500 Body temperature 98.1 [degF] Marisol Boyce [employer] Work Phone: [facility] 05-15-2024 09:26-0500 Body weight 77.66 kg Marisol Palominoz [employer] Work Phone: [facility] 05-15-2024 09:26-0500 Diastolic blood pressure 62 mm[Hg] Marisol Maganaholz [employer] Work Phone: [facility] 05-15-2024 09:26-0500 Heart rate 57 /min Marisol Maganaholz [employer] Work Phone: [facility] 05-15-2024 09:26-0500 Respiratory rate 18 /min Marisol Maganaholz [employer] Work Phone: [facility] 05-15-2024 09:26-0500 SaO2% (BldA) [Mass fraction] 98 % Marisol Palominoz [employer] Work Phone: [facility] 05-15-2024 09:26-0500 Systolic blood pressure 140 mm[Hg] Marisol Palominoz [employer] Work Phone: [facility] 04-04-2024 11:42-0500 Body height 182.9 cm Marlin August [employer] Work Phone: [facility] 04-04-2024 11:42-0500 Body mass index (BMI) [Ratio] 23.79 kg/m2 Marlin August [employer] Work Phone: [facility] 04-04-2024 11:42-0500 Body weight 79.56 kg Marlinjeffrey Koch [employer] Work Phone: [facility] 04-04-2024 11:42-0500 Diastolic blood pressure 46 mm[Hg] Marlin Koch [employer]RO[employer] Work Phone: [facility] 04-04-2024 11:42-0500 Heart rate 64 /min Mralin August [employer] Work Phone: [facility] 04-04-2024 11:42-0500 Systolic blood pressure 131 mm[Hg] Marlin Koch [employer]RO[employer]ER[employer] Work Phone: [facility] 03-05-2024 11:51-0500 Body height 182.9 cm Marlin Koch [employer]RO[employer] Work Phone: [facility] 03-05-2024 11:51-0500 Body mass index (BMI) [Ratio] 23.46 kg/m2 Marlin Koch [employer]RO[employer] Work Phone: [facility] 03-05-2024 11:51-0500 Body weight 78.47 kg Marlin Koch [employer]RO[employer]PATCHER[employer] Work Phone: [facility] 03-05-2024 11:51-0500 Diastolic blood pressure 52 mm[Hg] Marlin Koch [employer]RO[employer] DISPATCHER[employer] Work Phone: [facility] 03-05-2024 11:51-0500 Systolic blood pressure 135 mm[Hg] Marlin Koch [employer]RO[employer] DISPATCHER[employer] Work Phone: [facility] 02-15-2024 13:15-0500 Body height 182.9 cm Marisol Carli [employer] Work Phone: [facility] 02-15-2024 13:15-0500 Body mass index (BMI) [Ratio] 23.57 kg/m2 Marisol Carli [employer] Work Phone: [facility] 02-15-2024 13:15-0500 Body temperature 98.49 [degF] Marisol Candelarioz [employer] Work Phone: [facility] 02-15-2024 13:15-0500 Body weight 78.83 kg Marisol Candelarioz [employer] Work Phone: [facility] 02-15-2024 13:15-0500 Diastolic blood pressure 64 mm[Hg] Marisol Candelarioz [employer] Work Phone: [facility] 02-15-2024 13:15-0500 Heart rate 51 /min Marisol Aichholz [employer] Work Phone: [facility] 02-15-2024 13:15-0500 Respiratory rate 19 /min Marisol Aichholz [employer] Work Phone: [facility] 02-15-2024 13:15-0500 SaO2% (BldA) [Mass fraction] 100 % Marisol Aichholz [employer] Work Phone: [facility] 02-15-2024 13:15-0500 Systolic blood pressure 112 mm[Hg] Marisol Aichholz [employer] Work Phone: [facility] 01-04-2024 09:05-0400 Body mass index (BMI) [Ratio] 23.41 kg/m2 Marisol Aichholz [employer] Work Phone: [facility] 01-04-2024 09:05-0400 Body temperature 98.1 [degF] Marisol Aichholz [employer] Work Phone: [facility] 01-04-2024 09:05-0400 Body weight 78.29 kg Marisol Aichholz [employer] Work Phone: [facility] 01-04-2024 09:05-0400 Diastolic blood pressure 78 mm[Hg] Marisol Aichholz [employer] Work Phone: [facility] 01-04-2024 09:05-0400 Heart rate 79 /min Marisol Aichholz [employer] Work Phone: [facility] 01-04-2024 09:05-0400 Respiratory rate 19 /min Marisol Aichholz [employer] Work Phone: [facility] 01-04-2024 09:05-0400 SaO2% (BldA) [Mass fraction] 97 % Marisol Aichholz [employer] Work Phone: [facility] 01-04-2024 09:05-0400 Systolic blood pressure 124 mm[Hg] Marisol Aichholz [employer] Work Phone: [facility] 11-22-2023 11:27-0400 Body height 182.9 cm Marisol Aichholz [employer] Work Phone: [facility] 11-22-2023 11:27-0400 Body mass index (BMI) [Ratio] 23.16 kg/m2 Marisol Aichholz [employer] Work Phone: [facility] 11-22-2023 11:27-0400 Body temperature 97.81 [degF] Marisol Aichholz [employer] Work Phone: [facility] 11-22-2023 11:27-0400 Body weight 77.47 kg Marisol Aichholz [employer] Work Phone: [facility] 11-22-2023 11:27-0400 Diastolic blood pressure 64 mm[Hg] Marisol Aichholz [employer] Work Phone: [facility] 11-22-2023 11:27-0400 Heart rate 56 /min Marisol Aichholz [employer] Work Phone: [facility] 11-22-2023 11:27-0400 Respiratory rate 18 /min Marisol Aichholz [employer] Work Phone: [facility] 11-22-2023 11:27-0400 SaO2% (BldA) [Mass fraction] 96 % Marisol Aichholz [employer] Work Phone: [facility] 11-22-2023 11:27-0400 Systolic blood pressure 98 mm[Hg] Marisol Aichholz [employer] Work Phone: [facility] 07-11-2023 13:56-0400 Body temperature 98.06 [degF] YAMILEX EUGENIO [facility] 07-11-2023 13:56-0400 Diastolic blood pressure 71 mm[Hg] YAMILEX EUGENIO [facility] 07-11-2023 13:56-0400 Heart rate 67 /min YAMILEX EUGENOI [facility] 07-11-2023 13:56-0400 Respiratory rate 16 /min YAMILEX ARMSTRONG [facility] 07-11-2023 13:56-0400 Systolic blood pressure 135 mm[Hg] YAMILEX ARMSTRONG [facility] 06-18-2022 09:44-0400 Blood Pressure Location Deja Lue [facility] 06-18-2022 09:44-0400 Diastolic blood pressure 67 mm[Hg] Deja Lue [facility] 06-18-2022 09:44-0400 Heart rate 87 /min Deja Lue [facility] 06-18-2022 09:44-0400 Systolic blood pressure 137 mm[Hg] Deja Lue [facility] Encounters Encounter Date Encounter Type Care Provider Facility Start: 01-03-2025 End: 01-03-2025 ambulatory Marisol Boyce NP-C Work Phone: [facility] Work Phone: Start: 01-03-2025 End: 01-03-2025 Patient encounter procedure Marisol Boyce NP-C -[facility] Work Phone: Start: 01-02-2025 End: 01-02-2025 ambulatory Marisol Boyce NP-C Work Phone: [facility] Work Phone: Start: 01-02-2025 End: 01-02-2025 Patient encounter procedure Jackson Staton DO -[facility] Work Phone: Start: 12-25-2024 Non-patient / Non-visit ZOEY Staton PA-C -[facility] Work Phone: Start: 12-25-2024 End: 12-25-2024 ambulatory MARISOL BOYCE Facility:[facility] Start: 12-05-2024 ambulatory MARISOL BOYCE [facility] Start: 12-05-2024 End: 12-05-2024 ambulatory Marisol Boyce Work Phone: [facility] Work Phone: Start: 12-05-2024 End: 12-05-2024 Patient encounter procedure Marisol Boyce [employer] HEL[employer]-C -[facility] Work Phone: Start: 11-28-2024 Non-patient / Non-visit Lj johnson [facility] Work Phone: Start: 11-27-2024 Non-patient / [facility]-visit [facility] Work [facility]: Start: 10-24-2024 End: 10-25-2024 Refill Marisol Aichholz [employer] Work Phone: [facility] Comment on above: Mixed hyperlipidemia (Primary Dx) Start: 10-09-2024 End: 10-09-2024 ambulatory [facility] Start: 10-03-2024 End: 10-03-2024 Refill Marisol Aichholz [employer] Work Phone: [facility] Comment on above: PAD (peripheral christianne ry disease) (Primary Dx); Paroxysmal atrial fibrillation (HCC) Start: 09-26-2024 End: 09-26-2024 Bamboo flowsheet Marisol Medardohjessz [employer] Work Phone: [facility] Start: 09-26-2024 End: 07-02-2025 Bamboo flowsheet Marisol Aichholz [employer] Work Phone: [facility] Start: 09-26-2024 End: 09-26-2024 Telephone encounter Marisolmarleen Batreszoraida [employer] Work Phone: [facility] Start: 09-26-2024 End: 09-26-2024 Office outpatient visit 25 minutes Marisolmarleen Boyce [employer] Work Phone: [facility] Comment on above: Dizziness and giddin ess (Primary Dx); Pulmonary hypertension, unspecified (HCC); Primary hypertension ; Riley's esophagus with dysplasia; Type 2 diabetes mellitus without complication, with long-term current use of insulin (HCC) Start: 09-26-2024 End: 09-26-2024 ambulatory MARISOL AICHHOLZ Not Available Start: 08-15-2024 End: 08-15-2024 Bamboo flowsheet Amrisol Aichholtu [employer] HELPER Work Phone: [facility] Start: 08-15-2024 End: 08-15-2024 Bamboo flowsheet Marisol Aichholz [employer] Work Phone: [facility] Start: 08-15-2024 End: 08-15-2024 Patient encounter procedure Marisol Chinosincere [employer] HELPER Work Phone: [facility] Comment on above: Encounter for subseq uent [...] Start: 08-10-2024 End: 08-10-2024 Refill Marisol Aichholz [employer] Work Phone: [facility] Comment on above: Type 2 diabetes maddie itus without complication, with long-term current use of insulin Start: 07-18-2024 End: 07-18-2024 ambulatory Deja Perez Facility:[facility] Start: 07-11-2024 End: 07-11-2024 Clinisync Result Encounter Marisol Candelarioz [employer] Work Phone: [facility] Unsolicited Start: 07-11-2024 End: 07-11-2024 Clinisync Result Encounter Marisol Candelarioz [employer] Work Phone: [facility] Unsolicited Start: 07-11-2024 End: 07-11-2024 Lab Drop off YAMILEX ARMSTRONG [facility] Start: 07-11-2024 End: 07-11-2024 ambulatory Fiona Beaver Facility:[facility] Start: 07-05-2024 End: 07-05-2024 Refill Marisol Aichholz [employer] Work Phone: [facility] Comment on above: Benign prostatic hyp erplasia with lower urinary tract symptoms, symptom details unspecified (Primary Dx) Start: 06-20-2024 End: 06-20-2024 Refill Marisol Aichholz [employer] Work Phone: [facility] Comment on above: Riley's esophagus with dysplasia (Primary Dx) Start: 05-15-2024 End: 05-15-2024 Bamboo flowsheet Marisol Candelarioz [employer] HEL[employer] Work Phone: [facility] Start: 05-15-2024 End: 05-15-2024 Bamboo flowsheet Marisol Aichjessz [employer] HELPER Work Phone: [facility] Start: 05-15-2024 End: 05-15-2024 Office outpatient visit 25 minutes Marisol Carli [employer] HEL[employer] Work Phone: [facility] Comment on above: Type 2 diabetes maddie itus without complication, with long-term current use of insulin ([facility]) (Primary Dx); Centrilobular emphysema ([facility]); Type 2 diabetes mellitus with other specified complication ([facility]); Erectile dysfunction due to diseases classified elsewhere; Type 2 diabetes mellitus 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 ([facility]); Paroxysmal atrial fibrillation ([facility]); Coronary artery disease 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 artery of chick[place]om[place] indians-e[place] heart without angina pectoris ([facility]); Primary hypertension ([facility]); PAD (peripheral artery disease) ([facility]); Iron deficiency anemia, unspecified iron deficiency anemia type; Mixed hyperlipidemia ([facility]); Primary insomnia Start: 05-15-2024 End: 05-15-2024 ambulatory MARISOL AICHHOLZ Not Available Start: 05-13-2024 End: 05-13-2024 Refill Marisol Aichholz [employer] Work Phone: [facility] Comment on above: Type 2 diabetes maddie itus without complication, with long-term current use of insulin ([facility]) Start: 04-18-2024 End: 04-18-2024 Telephone encounter Fiona Miguel TERRAZZO ROLLER [facility] Start: 04-16-2024 End: 04-16-2024 Orders Only Sabino Mauricio DO [facility] Start: 04-11-2024 End: 04-11-2024 ambulatory Sabino Mauricio [facility] Work Phone: Start: 04-11-2024 End: 04-11-2024 Departed Referred Sabino Mauricio DO Work Phone: [facility] Start: 04-04-2024 End: 04-04-2024 Office outpatient visit 15 minutes Marlin Koch [employer]RO[employer]PATCHER[employer] Work Phone: [facility] Comment on above: Encounter for colono scopy due to history of colonic polyp (Primary Dx); 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 Start: 04-04-2024 End: 04-04-2024 Refill Marisol Aichholz [employer] Work Phone: [facility] Comment on above: Type 2 diabetes maddie itus without complication, with long-term current use of insulin ([facility]) (Primary Dx) Start: 03-29-2024 End: 03-29-2024 Telephone encounter Marisol Boyce NP Work Phone: [facility] Start: 03-26-2024 End: 03-26-2024 ambulatory [facility] Start: 03-22-2024 End: 03-22-2024 Clinical Support [facility] Comment on above: Arrived Start: 03-19-2024 End: 03-19-2024 Clinical Support [facility] Start: 03-15-2024 End: 03-15-2024 ambulatory [facility] Start: 03-14-2024 End: 03-14-2024 ambulatory AB [facility] Start: 03-13-2024 End: 03-13-2024 Clinisync Result Encounter Marisol Boyce [employer] Work Phone: [facility] Unsolicited Start: 03-13-2024 End: 03-13-2024 Clinisync Result Encounter Marisol Boyce [employer] Work Phone: [facility] Unsolicited Start: 03-12-2024 End: 03-12-2024 ambulatory [facility] Start: 03-08-2024 End: 03-08-2024 Clinical Support [facility] Start: 03-07-2024 End: 03-07-2024 ambulatory [facility] Start: 03-05-2024 End: 03-05-2024 Office outpatient new 30 minutes Marlin Koch [employer]RO[employer] DISPATCH[employer] Work Phone: [facility] Comment on above: Encounter for colono scopy due to history of colonic polyp (Primary Dx); 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 Start: 03-05-2024 End: 03-05-2024 ambulatory MARLIN KOCH [facility] Start: 02-22-2024 End: 02-22-2024 Clinical Support [facility] Start: 02-20-2024 End: 02-20-2024 Clinical Support [facility] Start: 02-16-2024 End: 02-16-2024 Clinical Support [facility] Start: 02-15-2024 End: 02-15-2024 Bamboo flowsheet Marisol Boyce [employer] Work Phone: [facility] Start: 02-15-2024 End: 02-15-2024 Bamboo flowsheet Marisol Boyce [employer] Work Phone: [facility] Start: 02-15-2024 End: 02-15-2024 Office outpatient visit 25 minutes Marisol Boyce [employer] HEL[employer] Work Phone: [facility] Comment on above: Type 2 diabetes maddie itus without complication, with long-term current use of insulin (CMS/HCC) (Primary Dx); Primary hypertension (CMS/HCC); PAD (peripheral artery disease) (CMS/HCC); 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 (CMS/HCC); Riley's esophagus with dysplasia; Erectile dysfunction due to diseases classified elsewhere; Benign prostatic hyperplasia with lower urinary tract symptoms, symptom details unspecified; Colon cancer screening; Tubulovillous adenoma of colon; Lumbosacral spondylosis without myelopathy Start: 02-15-2024 End: 02-15-2024 ambulatory MARISOL BOYCE Not Available Start: 02-15-2024 End: 02-15-2024 Clinical Support [facility] Start: 02-13-2024 End: 02-13-2024 Clinical Support [facility] Start: 02-09-2024 End: 02-09-2024 Clinical Support [facility] Start: 02-08-2024 End: 02-08-2024 Clinical Support [facility] Start: 02-06-2024 End: 02-06-2024 Clinical Support [facility] Start: 02-02-2024 End: 02-02-2024 Telephone encounter Marisol Boyce NP Work Phone: [facility] Start: 02-02-2024 End: 02-02-2024 ambulatory [facility] Start: 02-01-2024 End: 02-01-2024 Clinical Support [facility] Start: 01-30-2024 End: 01-30-2024 ambulatory [facility] Start: 01-26-2024 End: 01-26-2024 Clinical Support [facility] Start: 01-25-2024 End: 01-25-2024 Clinical Support [facility] Start: 01-23-2024 End: 01-23-2024 ambulatory [facility] Start: 01-19-2024 End: 01-19-2024 Clinical Support [facility] Start: 01-18-2024 End: 01-18-2024 Clinical Support [facility] Start: 01-16-2024 End: 01-16-2024 Clinical Support [facility] Start: 01-12-2024 End: 01-12-2024 Clinical Support [facility] Comment on above: Arrived Start: 01-11-2024 End: 01-11-2024 ambulatory MARISOL BOYCE [facility] Start: 01-11-2024 End: 01-11-2024 Clinical Support [facility] Start: 01-09-2024 End: 01-09-2024 ambulatory AB [facility] Start: 01-05-2024 End: 01-05-2024 Clinical Support [facility] Start: 01-04-2024 End: 01-04-2024 Bamboo flowsheet Marisol Boyce [employer] HEL[employer] Work Phone: [facility] Start: 01-04-2024 End: 01-04-2024 Bamboo flowsheet Marisol Boyce [employer] HEL[employer] Work Phone: [facility] Start: 01-04-2024 End: 01-04-2024 Clinical Support [facility] Start: 01-04-2024 End: 01-04-2024 Office outpatient visit 25 minutes Marisol Boyce [employer] Work Phone: [facility] Comment on above: Type 2 diabetes maddie itus without complication, with long-term current use of insulin (CMS/HCC) (Primary Dx); Chronic thoracic back pain, unspecified back pain laterality; Primary hypertension (CMS/HCC) Start: 01-04-2024 End: 01-04-2024 ambulatory MARISOL BOYCE Not Available Start: 01-02-2024 End: 01-02-2024 Clinical Support [facility] Start: 12-29-2023 End: 12-29-2023 ambulatory AB [facility] Start: 12-28-2023 End: 12-28-2023 Clinical Support [facility] Start: 12-26-2023 End: 12-26-2023 Clinical Support [facility] Start: 12-22-2023 End: 12-22-2023 Clinical Support [facility] Start: 12-21-2023 End: 12-21-2023 Refill Marisol Boyce NP Work Phone: [facility] Comment on above: Benign prostatic hyp erplasia with lower urinary tract symptoms, symptom details unspecified (Primary Dx) Start: 12-21-2023 End: 12-21-2023 Clinical Support [facility] Start: 12-19-2023 End: 12-19-2023 Clinical Support [facility] Re[facility] Start: 12-16-2023 End: 12-16-2023 ambulatory EHAB A [facility] Start: 11-29-2023 End: 11-29-2023 External Result Encounter Marisol Boyce NP Work Phone: [facility] Unsolicited Start: 11-29-2023 End: 11-29-2023 External Result Encounter Marisol Boyce NP Work Phone: [facility] Unsolicited Start: 11-22-2023 End: 11-22-2023 Bamboo flowsheet Marisol Boyce NP Work Phone: [facility] Start: 11-22-2023 End: 11-22-2023 Bamboo flowsheet Marisol Boyce NP Work Phone: [facility] Start: 11-22-2023 End: 11-22-2023 Office outpatient visit 15 minutes Marisol Boyce NP Work Phone: [facility] Comment on above: Coronary artery dise ase 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 artery of chickahominy indians-eastern division heart without angina pectoris (CMS/HCC) (Primary Dx); Other thrombophilia (CMS/HCC); Paroxysmal atrial fibrillation (CMS/HCC); Nonrheumatic mitral valve regurgitation; Primary hypertension (CMS/HCC); 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) Start: 11-22-2023 End: 11-22-2023 ambulatory MARISOL AICHHOLZ Not Available Start: 10-11-2023 End: 10-11-2023 ambulatory MARISOL AICHHOLZ Not Available Start: 07-11-2023 End: 07-11-2023 Patient encounter procedure YAMILEX ARMSTRONG [facility] Start: 06-07-2023 Patient encounter procedure Marisol Aicpilarz [employer] Work Phone: [facility] Start: 05-05-2023 Refill Marisol Aichholz [employer] Work Phone: [facility] Start: 05-04-2023 External Result Encounter Marisol Aichholz [employer] Work Phone: [facility] Department Unsolicited Start: 05-04-2023 External Result Encounter Marisol Aichholz [employer] Work Phone: [facility] Unsolicited Start: 06-18-2022 End: 06-18-2022 Patient encounter procedure Deja Perez [facility] Start: 06-11-2022 End: 06-12-2022 ambulatory [employer] MARISOL AICHHOLZ Facility:H1 Start: 01-06-2022 End: 01-07-2022 ambulatory [employer] MARISOL AICHHOLZ Facility:[facility]1 Start: 01-05-2022 End: 01-06-2022 ambulatory [employer] MARISOL AICHHOLZ Facility:[facility] Start: 10-14-2021 End: 10-15-2021 ambulatory DWAIN RAY Facility:[facility] Start: 06-18-2021 End: 06-18-2021 Patient encounter procedure Carlitos MAYA [facility] Procedures Date Procedure Procedure Detail Performing Clinician Start: 07-11-2024 [facility] CBC W/ AUTO DIFF L abhinav Boyce [employer] Work Phone: Start: 04-11-2024 Colonoscopy Sabino eller DO Work Phone: Start: 04-04-2024 Follow-up visit Follow-up MARLIN KOCH Start: 03-13-2024 MLR HEMOGLOBIN A1C Marisol Maganasincere [employer] Work Phone: Start: 11-29-2023 Basic metabolic pane l calcium total Marisol Maganasincere [employer] Work Phone: Start: 05-04-2023 Comprehensive metabo lic panel Marisol Maganasincere [employer] Work Phone: Start: 05-04-2023 Urnls dip stick/tabl et rgnt non-auto w/o micrscp Marisol Maganasincere [employer] Work Phone: Start: 02-26-2020 Iliofemoral vein christiano nt (physical object) Carlitos MAYA Start: 08-03-2019 Injection of sacroil iac joint Carlitos MAYA Start: 10-26-2018 Colonoscopy Marisol mann [employer] Work Phone: Cataract (disorder) Carlitos R HANSEL Cholecystectomy Carlitos MAYA Placement of stent i n cardiac conduit Carlitos MAYA Prosthetic arthropla sty of shoulder Carlitos MAYA Plan of Treatment Date Care Activity Detail Author Start: 04-11-2029 Screening for malignant neoplasm of colon [facility] Start: 04-11-2027 Screening for malignant neoplasm of colon Colonoscopy [facility] Start: 09-26-2026 Glaucoma screening Diabetes: Retinopathy Screening [facility] Start: 08-21-2025 End: 08-21-2025 Patient encounter procedure 08/21/2025 10:00 AM EDT Office Visit [facility] [address] [place] [address] Marisol Boyce, CATALINA [address] [place] [address] [facility] Start: 08-15-2025 Medicare Annual Wellness (AWV) Medicare Annual Wellness (AWV) [facility] Start: 07-11-2025 Urine screening for protein Diabetes: Urine Protein Screening [facility] Start: 04-04-2025 Tobacco Screening Tobacco Screening [facility] Start: 03-05-2025 Tobacco Screening Tobacco Screening [facility] Start: 11-29-2024 End: 11-29-2024 Patient encounter procedure [facility] Start: 11-26-2024 Influenza vaccination Influenza Vaccine (#1) [facility] Start: 10-10-2024 Hemoglobin A1c measurement Diabetes: Hemoglobin A1C [facility] Start: 10-06-2024 Urine screening for protein Diabetes: Urine Protein Screening [facility] Start: 09-26-2024 End: 09-26-2024 Patient encounter procedure [facility] Comment on above: Dizziness and giddiness (Primary Dx); Pulmonary hypertension, unspecified (HCC); Primary hypertension Start: 08-15-2024 End: 08-15-2024 Patient encounter procedure [facility] Comment on above: Encounter for subsequent annual [...] anemia type Expected: 06/12/2024 (Approximate), Expires: 05/15/2025 [facility] Work Phone: Comment on above: Expected: 06/12/2024 (Approximate), Expi res: 05/15/2025 Start: 06-12-2024 End: 05-15-2025 Comprehensive metabolic 2000 panel - Serum or Plasma Comprehensive metabolic panel Lab Routine Type 2 diabetes mellitus with other specified complication (CMS/HCC) Coronary artery disease 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 artery of chickahominy indians-eastern division heart without angina pectoris (CMS/HCC) Primary hypertension (CMS/HCC) Mixed hyperlipidemia (CMS/HCC) Expected: 06/12/2024 (Approximate), Expires: 05/15/2025 [facility] Comment on above: Expected: 06/12/2024 (Approximate), Expi res: 05/15/2025 Start: 06-12-2024 End: 05-15-2025 Hemoglobin A1c/Hemoglobin.total in Blood Hemoglobin A1c Lab Routine Type 2 diabetes mellitus without complication, with long-term current use of insulin (CMS/HCC) Expected: 06/12/2024 (Approximate), Expires: 05/15/2025 [facility] Comment on above: Expected: 06/12/2024 (Approximate), Expi res: 05/15/2025 Start: 06-12-2024 End: 05-15-2025 Iron and Iron binding capacity panel - Serum or Plasma Iron level Lab Routine Iron deficiency anemia, unspecified iron deficiency anemia type Expected: 06/12/2024 (Approximate), Expires: 05/15/2025 [facility] Comment on above: Expected: 06/12/2024 (Approximate), Expi res: 05/15/2025 Start: 06-12-2024 End: 05-15-2025 Lipid 1996 panel - Serum or Plasma Lipid panel Lab Routine Mixed hyperlipidemia (CMS/HCC) Expected: 06/12/2024 (Approximate), Expires: 05/15/2025 [facility] Comment on above: Expected: 06/12/2024 (Approximate), Expi res: 05/15/2025 Start: 06-12-2024 End: 05-15-2025 Microalbumin/Creatinine panel in random Urine Microalbumin / creatinine, urine ratio Lab Routine Primary hypertension (CMS/HCC) Type 2 diabetes mellitus without complication, with long-term current use of insulin (CMS/HCC) Expected: 06/12/2024 (Approximate), Expires: 05/15/2025 [facility] Comment on above: Expected: 06/12/2024 (Approximate), Expi res: 05/15/2025 Start: 06-12-2024 End: 05-15-2025 Urinalysis complete panel - Urine Urinalysis with refl ex microscopic (clean catch) Lab Routine Primary hypertension ([facility]/HCC) Type 2 diabetes mellitus without complication, with long-term current use of insulin ([facility]/HCC) Expected: 06/12/2024 (Approximate), Expires: 05/15/2025 [facility] Comment on above: Expected: 06/12/2024 (Approximate), Expi res: 05/15/2025 Start: 06-11-2024 Hemoglobin A1c measurement Diabetes: Hemoglobin A1C [facility] Start: 06-06-2024 Medicare Annual Wellness (AWV) Medicare Annual Wellness (AWV) [facility] Start: 05-15-2024 End: 05-15-2024 Patient encounter procedure [facility] Comment on above: Coronary artery disease 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 artery of chickahominy indians-eastern division heart without angina pectoris ([facility]/HCC) (Primary Dx); Centrilobular emphysema ([facility]); Type 2 diabetes mellitus with other specified complication ([facility]/HCC); Erectile dysfunction due to diseases classified elsewhere; Type 2 diabetes mellitus 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 ([facility]/HCC); Paroxysmal atrial fibrillation ([facility]/HCC); Primary hypertension ([facility]/HCC); PAD (peripheral artery disease) ([facility]/HCC); Type 2 diabetes mellitus without complication, with long-term current use of insulin ([facility]/HCC); Iron deficiency anemia, unspecified iron deficiency anemia type; Mixed hyperlipidemia ([facility]) Start: 05-04-2024 Urine screening for protein Diabetes: Urine Protein Screening [facility] Start: 04-03-2024 End: 04-03-2024 Patient encounter procedure 04/03/2024 10:30 AM EST [facility] [address] [place] [id number] Marlin Koch APRN-ELO [address] [place] [address] [facility] Start: 03-26-2024 End: 03-26-2024 Clinical Support 03/26/2024 10:30 AM EST Clinical Support [facility] [address] [place] [address] [facility] Start: 03-22-2024 End: 03-22-2024 Clinical Support 03/22/2024 10:30 AM EST Clinical Support [facility] [address] [place] [address] [facility] Start: 03-12-2024 End: 03-12-2024 Clinical Support 03/12/2024 10:30 AM EST Clinical Support [facility] [address] [place] [address] [facility] Start: 03-08-2024 End: 03-08-2024 Clinical Support 03/08/2024 10:30 AM EST Clinical Support [facility] [address] [place] [address] [facility] Start: 03-07-2024 End: 03-07-2024 Clinical Support 03/07/2024 10:30 AM EST Clinical Support [facility] [address] [place] [address] [facility] Start: 03-05-2024 End: 03-05-2024 Patient encounter procedure 03/05/2024 11:45 AM EST Office Visit [facility] [address] [place] [address] Marlin Koch APRN-TURKISH RUBBER [address] [place] [address] [facility] Start: 03-05-2024 End: 03-05-2024 Clinical Support 03/05/2024 10:30 AM EST Clinical Support [facility] [address] [place] [address] [facility] Start: 03-01-2024 End: 03-01-2024 Clinical Support 03/01/2024 10:30 AM EST Clinical Support [facility] [address] [place] [address] [facility] Start: 02-29-2024 End: 02-14-2025 Hemoglobin A1c/Hemoglobin.total in Blood Hemoglobin A1c Lab Routine Type 2 diabetes mellitus without complication, with long-term current use of insulin ([facility]) Expected: 02/29/2024 (Approximate), Expires: 02/14/2025 [facility] Work Phone: Comment on above: Expected: 02/29/2024 (Approximate), Expi res: 02/14/2025 Start: 02-29-2024 End: 02-29-2024 Clinical Support 02/29/2024 10:30 AM EST Clinical Support [facility] [address] [place] [address] [facility] Start: 02-28-2024 Hemoglobin A1c measurement Diabetes: Hemoglobin A1C [facility] [email or web address] Start: 02-27-2024 End: 02-27-2024 Clinical Support 02/27/2024 10:30 AM EST Clinical Support [facility] [address] [place] [address] [facility] Start: 02-22-2024 End: 02-22-2024 Clinical Support 02/22/2024 10:30 AM EST Clinical Support [facility] [address] [place] [address] [facility] Start: 02-20-2024 End: 02-20-2024 Clinical Support 02/20/2024 10:30 AM EST Clinical Support [facility] [address] [place] [address] [facility] Start: 02-16-2024 End: 02-16-2024 Clinical Support 02/16/2024 10:30 AM EST Clinical Support [facility] [address] [place] [address] [facility] Start: 02-15-2024 End: 02-15-2024 Patient encounter procedure [facility] Comment on above: Primary hypertension (CMS/HCC) (Primary Dx); PAD (peripheral artery disease) (CMS/HCC); 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 (CMS/HCC); Riley's esophagus with dysplasia; Erectile dysfunction due to diseases classified elsewhere; Benign prostatic hyperplasia with lower urinary tract symptoms, symptom details unspecified; Type 2 diabetes mellitus without complication, with long-term current use of insulin ([facility]/HCC); Colon cancer screening Start: 02-15-2024 End: 02-15-2024 Clinical Support 02/15/2024 10:30 AM EST Clinical Support [facility] [address] [place] [address] [facility] Start: 02-13-2024 End: 02-13-2024 Clinical Support 02/13/2024 10:30 AM EST Clinical Support [facility] [address] [place] [address] [facility] Start: 02-09-2024 End: 02-09-2024 Clinical Support 02/09/2024 10:30 AM EST Clinical Support [facility] [address] [place] [address] [facility] Start: 02-08-2024 End: 02-08-2024 Clinical Support 02/08/2024 10:30 AM EST Clinical Support [facility] [address] [place] [address] [facility] Start: 02-06-2024 End: 02-06-2024 Clinical Support 02/06/2024 10:30 AM EST Clinical Support [facility] [address] [place] [address] [facility] Start: 02-02-2024 End: 02-02-2024 Clinical Support 02/02/2024 10:30 AM EST Clinical Support [facility] [address] [place] [address] [facility] Start: 02-01-2024 End: 02-01-2024 Clinical Support 02/01/2024 10:30 AM EST Clinical Support [facility] [address] [place] [address] [facility] Start: 01-30-2024 End: 01-30-2024 Clinical Support 01/30/2024 10:30 AM EST Clinical Support [facility] [address] [place] [address] [facility] Start: 01-26-2024 End: 01-26-2024 Clinical Support 01/26/2024 10:30 AM EDT Clinical Support [facility] [address] [place] [address] [facility] Start: 01-25-2024 End: 01-25-2024 Clinical Support 01/25/2024 10:30 AM EDT Clinical Support [facility] [address] [place] [address] [facility] Start: 01-23-2024 End: 01-23-2024 Clinical Support 01/23/2024 10:30 AM EDT Clinical Support [facility] [address] [place] [address] [facility] Start: 01-19-2024 End: 01-19-2024 Clinical Support 01/19/2024 10:30 AM EDT Clinical Support [facility] [address] [place] [address] [facility] Start: 01-18-2024 End: 01-18-2024 Clinical Support 01/18/2024 10:30 AM EDT Clinical Support [facility] [address] [place] [address] [facility] Start: 01-16-2024 End: 01-16-2024 Clinical Support 01/16/2024 10:30 AM EDT Clinical Support [facility] [address] [place] [address] [facility] Start: 01-12-2024 End: 01-12-2024 Clinical Support 01/12/2024 10:30 AM EDT Clinical Support [facility] [address] [place] [address] [facility] Start: 01-11-2024 End: 01-11-2024 Clinical Support 01/11/2024 10:30 AM EDT Clinical Support [facility] [address] [place] [address] [facility] Start: 01-09-2024 End: 01-09-2024 Clinical Support 01/09/2024 10:30 AM EDT Clinical Support [facility] [address] [place] [address] [facility] Start: 01-05-2024 End: 01-05-2024 Clinical Support 01/05/2024 10:30 AM EDT Clinical Support [facility] [address] [place] [address] [facility] Start: 01-04-2024 End: 01-03-2025 XR Thoracic spine 3 Views XR thoracic spine 3 views Imaging Routine Chronic thoracic back pain, unspecified back pain laterality Expected: 01/04/2024, Expires: 01/03/2025 [facility] Work Phone: Comment on above: Expected: 01/04/2024, Expires: Start: 01-04-2024 End: 01-04-2024 Patient encounter procedure [facility] Comment on above: Arrived Start: 01-03-2024 Hemoglobin A1c measurement Diabetes: Hemoglobin A1C [facility] Start: 01-02-2024 End: 01-02-2024 Clinical Support 01/02/2024 10:30 AM EDT Clinical Support [facility] [address] [place] [address] [facility] Start: 12-29-2023 End: 12-29-2023 Clinical Support 12/29/2023 10:30 AM EDT Clinical Support [facility] [address] [place] [address] [facility] Start: 12-28-2023 End: 12-28-2023 Clinical Support 12/28/2023 10:30 AM EDT Clinical Support [facility] [address] [place] [address] [facility] Start: 12-26-2023 End: 12-26-2023 Clinical Support 12/26/2023 10:30 AM EDT Clinical Support [facility] [address] [place] [address] [facility] Start: 12-22-2023 End: 12-22-2023 Clinical Support 12/22/2023 10:30 AM EDT Clinical Support [facility] [address] [place] [address] [facility] Start: 12-21-2023 End: 12-21-2023 Clinical Support 12/21/2023 10:30 AM EDT Clinical Support [facility] [address] [place] [address] [facility] Start: 11-28-2023 Glaucoma screening Diabetes: Retinopathy Screening [facility] Comment on above: Postponed from 1956 (Other Patient Reasons) Start: 11-27-2023 COVID-19 Vaccine ( season) COVID-19 Vaccine ( season) [facility] Start: 11-27-2023 COVID-19 Vaccine ( season) COVID-19 Vaccine ( season) [facility] Start: 11-27-2023 Influenza vaccination [facility] Start: 11-22-2023 End: 11-22-2023 Patient encounter procedure 11/22/2023 11:20 AM EDT Office [facility] [address] [place] [address] Marisol Boyce, [employer] B[employer] HELPER [address] [place] [address] Other thrombophilia (CMS/HCC) [facility] Comment on above: Other thrombophilia (CMS/HCC) Start: 10-27-2023 Screening for malignant neoplasm of colon [facility] Start: 08-02-2023 Hemoglobin A1c measurement Diabetes: Hemoglobin A1C [facility] Start: 07-23-2023 Adult BMI Screening Adult BMI Screening [facility] Start: 07-23-2023 Tobacco Screening Tobacco Screening [facility] Start: 06-24-2023 Screening for malignant neoplasm of colon FOBT [facility] Start: 06-12-2023 Urine screening for protein Diabetes: Urine Protein Screening [facility] Start: 06-07-2023 End: 06-07-2023 Patient encounter procedure 06/07/2023 10:30 AM EDT Office Visit [facility] [address] [place] [address] Marisol Boyce, CATALINA [address] [place] [address] [facility] Start: 03-14-2023 Hemoglobin A1c measurement Diabetes: Hemoglobin A1C [facility] Start: 10-26-2021 Screening for malignant neoplasm of colon Colonoscopy [facility] Start: 05-07-2014 Administration of varicella zoster vaccine Zoster (Shingles) Vaccine (2 of 3) [facility] Start: 09-14-2011 Abdominal aortic aneurysm screening Abdominal Aortic Aneurysm (AAA) Screen [facility] Start: 09-14-2011 Fall Risk Screening Fall Risk Screening [facility] Start: 1965 DTaP,Tdap and Td Vaccines (1 - Tdap) DTaP,Tdap and Td Vaccines (1 - Tdap) [facility] Start: 1958 Depression Screening Depression Screening [facility] Start: 1956 Glaucoma screening Diabetes: Retinopathy Screening [facility] Start: 1946 Medicare Annual Wellness (AWV) Medicare Annual Wellness (AWV) [facility] Start: 1946 Medicare Annual Wellness Visit Medicare Annual Wellness Visit [facility] Start: 1946 Screening for malignant neoplasm of colon [facility] Start: 1946 Tobacco Counseling Tobacco Counseling [facility] Cardiopulmonary rehabilitation C ardiopulmonary rehabilitation Cardiac [...] polyp 1 Occurrences starting 03/05/2024 until 03/05/2025 [facility] Work Phone: Comment on above: 1 Occurrences starting 03/05/2024 until 03/05/2025 End: 03-05-2025 Esophagogastroduodenoscopy EGD GI Routine 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 1 Occurrences starting 03/05/2024 until 03/05/2025 [facility] Comment on above: 1 Occurrences starting 03/05/2024 until 03/05/2025 MR Lumbar spine WO contrast [facility] MR Thoracic spine [facility] Immunizations Immunization Date Immunization Notes Care Provider Roma hernandez 02-09-2024 influenza, high dose seasonal, preservative-free Marisol Aichholz [employer] Work Phone: [facility] 02-09-2024 influenza virus vacc ine, unspecified formulation [facility] 02-15-2023 influenza virus vacc ine, unspecified formulation Marisol Aichholz [employer] Work Phone: [facility] 02-15-2023 pneumococcal polysaccharide vaccine, 23 valent Marisol Aichholz [employer] Work Phone: [facility] 01-31-2023 influenza virus vacc ine, unspecified formulation YAMILEX ARMSTRONG [facility] 01-31-2023 Influenza, High-dose Seasonal, Quadrivalent, Preservative Free Marisol Aichholz [employer] Work Phone: [facility] 03-11-2022 SARS-CoV-2 (COVID-19 ) [id number] Deja Perez [facility] 02-12-2022 influenza virus vacc ine, unspecified formulation Deja Lue [facility] 02-12-2022 Influenza, High-dose Seasonal, Quadrivalent, Preservative Free Marisol Aichholz [employer] Work Phone: [facility] 10-17-2021 influenza virus vacc ine, unspecified formulation Marisol Aichholz [employer] Work Phone: [facility] 10-17-2021 pneumococcal polysaccharide vaccine, 23 valent Marisol Boyce [employer] Work Phone: [facility] 08-06-2021 SARS-CoV-2 mRNA (goghssataij-dich-rmgfpc e) vaccine Deja Lue [facility] 02-02-2021 influenza virus vacc ine, unspecified formulation Deja Lue [facility] 02-02-2021 Influenza, High-dose Seasonal, Quadrivalent, Preservative Free Marisol Boyce [employer] Work Phone: [facility] 01-05-2021 SARS-CoV-2 (COVID-19 ) mRNA BNT-162b2 vax Deja Lue [facility] 05-29-2020 SARS-CoV-2 (COVID-19 ) mRNA-1273 vaccine Carlitos RICE [facility] 05-21-2020 SARS-CoV-2 (COVID-19 ) mRNA BNT-162b2 vax Deja Lue [facility] Comment on above: Result Comment: 2022: [id number] 05-08-2020 SARS-CoV-2 (COVID-19 ) mRNA-1273 vaccine Carlitos RICE [facility] 05-01-2020 SARS-CoV-2 (COVID-19 ) mRNA BNT-162b2 vax Deja Lue [facility] Comment on above: Result Comment: 2022: [id number] 11-30-2019 influenza virus vacc ine, unspecified formulation Deja Lue [facility] 11-30-2019 Influenza, High-dose Seasonal, Quadrivalent, Preservative Free Marisol Aichholz [employer] Work Phone: [facility] 11-30-2019 pneumococcal conjuga te vaccine, 13 valent Deja Lue [facility] 11-27-2019 influenza virus vacc ine, unspecified formulation Carlitos RICE [facility] 12-29-2018 influenza virus vacc ine, unspecified formulation Deja Lue [facility] 12-29-2018 Seasonal trivalent influenza vaccine, adjuvanted, preservative free Marisol Aichholz [employer] Work Phone: [facility] 01-28-2018 influenza virus vacc ine, unspecified formulation Deja Lue [facility] 01-28-2018 influenza, high dose seasonal, preservative-free Marisol Aichholz [employer] Work Phone: [facility] 02-11-2017 influenza virus vacc ine, unspecified formulation Deja Lue [facility] 02-11-2017 Seasonal trivalent influenza vaccine, adjuvanted, preservative free Marisol Aichholz [employer] Work Phone: [facility] 01-17-2015 influenza virus vacc ine, unspecified formulation Deja Lue [facility] 01-17-2015 influenza, high dose seasonal, preservative-free Marisol Aichholz [employer] Work Phone: [facility] 12-10-2014 pneumococcal polysaccharide vaccine, 23 valent Deja Lue [facility] 03-12-2014 influenza virus vacc ine, unspecified formulation Deja Lue [facility] 03-12-2014 influenza, seasonal, injectable Marisol Aichholz [employer] Work Phone: [facility] 03-12-2014 zoster vaccine, live Deja L ue [facility] 03-12-2014 zoster vaccine, unspecified formulation [facility] 01-10-2013 influenza virus vacc ine, unspecified formulation Deja Lue [facility] 01-10-2013 influenza, seasonal, injectable Marisol Aichholz [employer] Work Phone: [facility] Payers Date Payer Category Payer Self-pay 2021 Private Health Insurance [employer] [id number] 2018 Commercial Indemnity [facility] [id number] 2018 Unknown [id number] [id number]. [id number] 2012 Medicare [id number]. 1.13.693.2. [id number] 1959 Medicare [id number] 1959 Unknown [id number] 1946 Unknown [id number] 2.16.840.1.071820.3.579.2. 593 1946 Unknown [id number] 2.16.840.1.324788.3.579.2. 593 1946 Unknown [id number] 2.16840.1.852096.3.579.2. 593 1946 Unknown [id number] 2.16.840.1.678270.3.579.2. 593 1946 Unknown [id number] 2.16.840.1.172094.3.579.2. 593 1946 Unknown [id number] 2.16.840.1.888464.3.579.2. 1286 1946 Unknown [id number] 2.16840.1.263790.3.579.2. 1286 1946 Unknown [id number] 2.16.840.1.098863.3.579.2. 727 1946 Unknown [id number] 2.16.840.1.849257.3.579.2. 727 1946 Unknown [id number] 2.16.840.1.860654.3.579.2. 727 1946 Unknown [id number] 2.16.840.1.827096.3.579.2. 727 1946 Unknown [id number] 2.16.840.1.261727.3.579.2. 1259 1946 Unknown [id number] 2.16.840.1.131791.3.579.2. 1258 1946 Unknown [id number] 2.16.840.1.835191.3.579.2. 1258 1946 Unknown [id number] 2.16.840.1.344051.3.579.2. 1258 1946 Unknown [id number] 2.16.840.1.212713.3.579.2. 1258 1946 Unknown [id number] 2.16.840.1.087358.3.579.2. 1258 1946 Unknown [id number] 2.840.1.224587.3.579.2. 1258 1946 Unknown [id number] 2.840.1.955149.3.579.2. 1285 1946 Unknown [id number] 2.840.1.049266.3.579.2. 1285 1946 Unknown [id number] 2.840.1.066666.3.579.2. 1285 1946 Unknown [id number] 2.840.1.256125.3.579.2. 1285 1946 Unknown [id number] 2.16840.1.814668.3.579.2. 1285 1946 Unknown [id number] 2.16840.1.743197.3.579.2. 1285 1946 Unknown [id number] 2.16840.1.929991.3.579.2. 1285 1946 Unknown [id number] 2.16840.1.733350.3.579.2. 1285 1946 Unknown [id number] 2.16.840.1.548791.3.579.2. 1285 1946 Unknown [id number] 2.16.840.1.605586.3.579.2. 1285 1946 Unknown [id number] 2.16.840.1.508840.3.579.2. 1285 1946 Unknown [id number] 2.16.840.1.968156.3.579.2. 1285 1946 Unknown [id number] 2.16.840.1.124252.3.579.2. 1285 1946 Unknown [id number] 2.840.1.805426.3.579.2. 1285 1946 Unknown [id number] 2.840.1.730683.3.579.2. 1285 1946 Unknown [id number] 2.840.1.630219.3.579.2. 1285 1946 Unknown [id number] 2.840.1.501510.3.579.2. 1285 1946 Unknown [id number] 2.840.1.291096.3.579.2. 1285 1946 Unknown [id number] 2.840.1.666502.3.579.2. 1285 1946 Unknown [id number] 2.840.1.439406.3.579.2. 1285 1946 Unknown [id number] 2.840.1.635500.3.579.2. 1285 1946 Unknown [id number] 2.16840.1.421169.3.579.2. 1285 1946 Unknown [id number] 2.16840.1.938631.3.579.2. 1285 1946 Unknown [id number] 2.16840.1.757733.3.579.2. 1285 1946 Unknown [id number] 2.16.840.1.810837.3.579.2. 1285 1946 Unknown [id number] 2.16.840.1.035919.3.579.2. 1285 1946 Unknown [id number] 2.16.840.1.393510.3.579.2. 1285 1946 Unknown [id number] 2.16.840.1.297215.3.579.2. 1285 1946 Unknown [id number] 2.840.1.001361.3.579.2. 1285 1946 Unknown [id number] 2.840.1.725728.3.579.2. 1285 1946 Unknown [id number] 2.840.1.879835.3.579.2. 1285 1946 Unknown [id number] 2.840.1.635284.3.579.2. 1285 1946 Unknown [id number] 2.840.1.872382.3.579.2. 1285 1946 Unknown [id number] 2.840.1.273151.3.579.2. 1285 1946 Unknown [id number] 2.840.1.716884.3.579.2. 1285 1946 Unknown [id number] 2.840.1.916895.3.579.2. 1285 1946 Unknown [id number] 2.16840.1.637224.3.579.2. 1285 1946 Unknown [id number] 2.16840.1.451289.3.579.2. 1285 1946 Unknown [id number] 2.16840.1.644748.3.579.2. [facility]6 Unknown [id number] 2.16.840.1.715255.3.579.2. 531 Social History Date Type Detail Facility Start: 06-18-2021 End: 04-11-2023 Tobacco smoking status Ex-smoker (finding) [facility] Start: 04-11-2023 End: 06-07-2023 Sex Assigned At Male [facility] Tobacco smoking status Never [facility] End: 03-28-2020 History of tobacco use Current [...] [facility] Start: 01-04-2017 [facility] Start: 03-05-2013 End: 10-31-2014 Sex Male (finding) [facility] Start: 04-04-2024 [facility] Start: 04-04-2024 Alcoholic beverage intake Ex-drinker (finding) [facility] Start: 04-04-2024 Tobacco Comment Pack every 3 w eeks as of 04/04/24 [facility] if ever smoked [facility] Work Phone: Start: 1945 Sex Assigned At Male [facility] Sexual Orientation [facility] Medical Equipment Procedure Code Equipment Code Equipment Origin al Text Equipment Identifier Dates Start: 04-14-2019 End: 03-05-2024 Functional Status Date Assessment Result Facility 08-15-2024 Patient Health Questionnaire 2 item (PHQ-2) [Reported] [facility] 08-15-2024 How difficult have t hese problems made it for you to do your work, take care of things at home, or get along with other people? Not difficult at all 08/15/2024 10:50 AM AB ALONZO Not difficult at all [facility] 07-11-2023 Functional Status N/A [facility] 06-18-2022 Functional Status N/A [facility] Clinical Notes 06-18-2021 to 12-25-2024 Note Date & Type Note Facility 12-25-2024 Note HNO ID: [id number] Author: ZOEY MARX PA-C Service: ? Author Type: Physician Cafeteria Or Lunchroom Checker Type: Progress Notes Filed: 12/26/2024 08:37 Note Text: [facility] ANEMIA CONSULTATION NOTE Hematologic Oncology and Blood Disorders PATIENT NAME: Kimmy Mcarthur DATE OF SERVICE: December 25, 2024 CHIEF COMPLAINT: Anemia HISTORY OF THE PRESENT ILLNESS: The patient is referred to Hematology today by Marisol Boyce for further evaluation of anemia, iron deficiency. The patient is a 79 year old male with a past medical history of a-fib, CAD s/p RCA stent in 2022, heart failure with preserved ejection fraction, MVR, HTN, PAD, IDDM2 and Riley's esophagus. He is on Xarelto and aspirin and amiodarone for his a-fib. He presented to [facility] on 11/27/24 with shortness of breath with exertion and feeling tired all of the time. Labs found he had a hemoglobin of 7.1. Iron studies showed a % saturation of 4.1, TIBC 39, Iron 14.0 and transferrin of 279. No ferritin was done in the ER. B12 normal at 611, folate 23.8. He had elevation of transaminases 173 (ALT) and 72 (AST)--this resolved with future labs. Retic count was 2.53% (lower than expected). Stool for occult blood was also negative. He required 2 units of PRBCs during his admission. He was sent home on oral iron, once a day. He saw his PCP who repeated labs on 12/05/24 which showed hgb 8.4, MCV 85, ferritin 14, iron 48, transferrin 275, normal liver panel. He received 2 iron infusions at [facility] on 12/10/24 and 12/17/24. He felt better initially after the iron infusions. He isn't getting dizzy as often, but he is still weak. Breathing is also improved. No black stools or melena. Darker stools since starting iron pills. He is having constipation issues as well. 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 He does have mild swelling to both ankles that started after receiving the iron infusions. Also has chronic back pain. He used to see pain management. The pain has recently worsened. He did have an MRI of the thoracic and lumbar spine done at [facility] last week (Results are not available to me at this time). Otherwise denies any pain elsewhere. Symptoms/History Related to Anemia: Fatigue: Yes Pica: No SOB: Yes, improving Chest Pain/Palpitations: No Lightheadedness: Yes Dizziness: Yes, improving Headache: No Brittle hair/nails: No Restless Legs: No Diet: No Bleeding: No Chills: No Difficulty concentrating/brain fog: No History of anemia: No Oral Iron History: Yes, maybe within the last few years History Blood Transfusions: Yes, just with recent hopsitalization History of Intravenous Iron infusions: Yes, November 2024 Family History of Anemia/Blood Disorders: No Alcohol/Drug Use: No History of Pregnancies: not applicable Prior Hematology Consult in Past or Bone Marrow Biopsy: No History of Blood Donation: Yes, years ago Absorption Concerns/Gastric Surgery/Celiac Disease: No PAST MEDICAL HISTORY: PAST MEDICAL HISTORY Diagnosis Date Anemia Bursitis COPD (chronic obstructive pulmonary disease) (HCC) Coronary artery disease Diabetes mellitus (HCC) Dizziness Essential hypertension HL (hearing loss) Localized osteoarthrosis of left hip Mixed hyperlipidemia Myocardial infarct (HCC) Pancreatitis (HCC) Peripheral arterial occlusive disease PAST SURGICAL HISTORY: PAST SURGICAL HISTORY Procedure Laterality Date CATARACT EXTRACTION HX EGD W/O BRSH SPEC VARICIES INJ INJECTION - NERVE BLOCK INJECTION JOINT Left LEFT HEART CATH,PERCUTANEOUS REMOVAL GALLBLADDER SHOULDER SURGERY HX Left CURRENT MEDICATIONS: FEROSUL 325 mg (65 mg iron) tablet Take 1 tablet by mouth once daily. rivaroxaban (XARELTO) 20 mg tablet Take 20 mg by mouth once daily. STIMULANT LAXATIVE PLUS 8.6-50 mg per tablet Take 1 tablet by mouth every 12 hours. aspirin, enteric coated (ASPIRIN, ENTERIC COATED) 81 mg EC tablet Take 81 mg by mouth once daily. metFORMIN (GLUCOPHAGE) 500 mg tablet Take 500 mg by mouth. atorvastatin (LIPITOR) 80 mg tablet Take 80 mg by mouth once daily. amiodarone (PACERONE) 200 mg tablet Take 200 mg by mouth once daily. carvedilol (COREG) 3.125 mg tablet Take 3.125 mg by mouth two times a day with meals. ezetimibe (ZETIA) 10 mg tablet Take 10 mg by mouth once daily. dapagliflozin propanediol (FARXIGA) 10 mg tablet Take 10 mg by mouth daily with breakfast. omeprazole (PRILOSEC) 40 mg capsule Take 40 mg by mouth once daily. ALLERGIES: ALLERGIES No Known Allergies FAMILY HISTORY: FAMILY HISTORY (more content not included)... [facility] 12-05-2024 Evaluation note Diagnosis Onset Date Resolution Atrial fibrillation acute Septe mber 2024 10:52am Essential hypertension acute Se ptember 2024 10:52am WESTLEY (iron deficiency anemia) acute December 05, 2024 10:52am Lumbar spondylosis acute Septem marjorie 2024 10:52am Dizziness and giddiness acute O ctober 2024 11:05am Multilevel degenerative disc disease acute January 02 11:05am [facility] Work Phone: [phone] 498-202409-10-2025 Evaluation note* Diagnosis Onset Date Resolution Status Admit Date Atrial fibrillation acute Septe mber 2024 10:52am Essential hypertension acute Se ptember 2024 10:52am WESTLEY (iron deficiency anemia) acute December 05, 2024 10:52am Lumbar spondylosis acute Septem marjorie 2024 10:52am Dizziness and giddiness acute O ctober 2024 11:05am Multilevel degenerative disc disease acute January 02 11:05am Atrial fibrillation acute Octob er 2024 9:28am Dizziness and giddiness acute O ctober 2024 9:28am Essential hypertension acute Oc tober 2024 9:28am WESTLEY (iron deficiency anemia) acute January 03, 2025 9:28am Lumbar spondylosis acute Octobe r 2024 9:28am [facility] Work Phone: 1(291) 447-470207-15-[facility] Chief Complaint: Patient here [...] Final Discharge Diagnosis: 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 ([facility]) Admission Diagnosis: A-fib ([facility]) [I48.91] Hospital course: 78 yo M with history of multivessel CAD s/p RCA stent 2022, HFpEF, MVR, HTN, PAD, IDDM2 who presented to outside ED with chest pressure and was found to be in Afib with RVR with rates up to 150s. Troponin was elevated at 100. He was given Cardizem, which converted him to sinus, and he was transferred to [facility]. He was placed on ASA/Plavix as [...] Center 10/13/2023 11:00 AM Natasha Campo MD [facility] 11/07/2023 7:30 AM [facility] MR 2 [facility] MR MPORTHO 11/08/2023 2:00 PM Peter Christensen MD [facility] Your medication list START taking [...] Your Medications These medications were sent to [facility] - [address] [address] ??? amiodarone 200 mg tablet ??? carvedilol 3.125 mg tablet ??? lisinopril 20 mg tablet These medications were sent to [facility] (more content not included)... [facility]07-02-2025 History of Present illness Narrative* Marisol Boyce NP - 09/26/2024 10:15 AM EDTAssociated Problem(s): Type 2 diabetes mellitus without complication, with long-term current use of insulin (HCC) Check blood sugars daily, notify if <70 or >200. Take medications (pills or insulin) as directed. Monitor for s/s of hypoglycemia (sweaty, dizziness, nausea, vomiting, or shakiness). Watch for increase in thirst, urination, or appetite. Inspect feet frequently monitoring for open wounds , andalso recommend yearly eye exam. Pt should attempt [...] colleen, farxiga, insulin, metformin A1c: 6.3% 07/11/24 * AB GRIFFITH - 09/26/2024 9:00 AM EDT Pt would like to discuss his dizziness he states it does not seem to be getting any better and he has not noticed any changes. Pt states he's unsure if it is vertigo or medication induced. He usuallyis fine when sitting its about every time he stands up. It use to go away after about 15-20 sec however he has noticed that it seems to be lasting longer maybe for a minute or so. * Marisol Boyce NP - 09/26/2024 9:00 AM EDT Images from the original note were not [...] walk, used to last a few seconds nowabout a minute No weakness, or stroke type [...] spinal stenosis 06/07/2023 Coronary artery disease 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 artery of [place] heart without angina pectoris 03/02/2023 COVID-19 virus [...] with long-term current use of insulin (HCC) 03/22/2023 Past Surgical History: Procedure Laterality Date [...] complication, with long-term current use of insulin ([facility]) Check blood sugars daily, notify if <70 or >200. Take medications (pills or insulin) as directed. Monitor for s/s of hypoglycemia (sweaty, dizziness, nausea, vomiting, or shakiness). Watch for increase in thirst, urination, or appetite. Inspect feet frequently monitoring for open wounds , andalso recommend yearly eye exam. Pt should attempt [...] meds: lisinopril, carvedilol Clarification with Zenobia at [facility] , lisinopril dose is 20mg daily, should not be filling lisinopril 5mg dose Also contacted the [facility] pharmacy to have them deactivate the lisinopril 5mg script spoke withJodi at 10:18am Riley esophagus Relevant Medications omeprazole (PriLOSEC) [address] capsule Dizziness and giddiness - Primary Last appt had some mild orthostatic changes in BP Cardiology had him stop amlodipine No orthostatics today ?side effect meds, vs cervical pathology, vascular? Send to see neuro Relevant Orders Ambulatory referral to Neurology Other Visit Diagnoses Pulmonary hypertension, unspecified (HCC) * Marisol Boyce NP - 09/26/2024 6:02 AM EDTAssociated Problem(s): Primary hypertension Please check blood pressure daily and record DASH diet Limit caffeine Take medication as directed Contact office if chest pain, pressure, dizziness, shortness of breath, swelling legs Recommend slow position changes Cont current meds: lisinopril, carvedilol Clarification with [facility]obia at [facility] , lisinopril dose is 20mg daily, should not be filling lisinopril 5mg dose Also contacted the [facility] pharmacy to have them deactivate the lisinopril 5mg script spoke withJodi at 10:18am * Marisol Boyce NP - 09/26/2024 6:02 AM EDTAssociated Problem(s): Dizziness and giddiness Last appt had some mild orthostatic changes in BP Cardiology had him stop amlodipine No orthostatics today ?side effect meds, vs cervical pathology, vascular? Send to see neuro documented in this [facility]07-02-2025 Telephone encounter Note* Telephone Encounter - Marisol Boyce NP - 09/26/2024 9:24 AM EDT Please contact company regarding his eliquis to see why he has not received it yet?? Also call pt let him know do NOT take the 5mg lisinopril, he should only be taking the 20mg lisinopril dose [place] [id number] Miscellaneous Notes* Telephone Encounter - Marisol Boyce NP - 09/26/2024 9:24 AM EDT Please contact company regarding his eliquis to see why he has not received it yet?? Also call pt let him know do NOT take the 5mg lisinopril, he should only be taking the 20mg lisinopril dose LA documented in this [facility]07-02-2025 Instructions* Patient Instructions* Marisol Boyce NP - 09/26/2024 9:00 AM EDT Neurology: will call you, Ed office We will clarify the lisinopril dose with heart doctor documented in this [id number] History of Present illness Narrative* Marisol Boyce NP - 08/15/2024 12:52 PM EDTAssociated Problem(s): Dizziness and giddiness Only notes when getting up from sitting to standing Orthostatics in office: [id number] Sittin/56 Standin/54 I will reach out to cardiology to see if they feel an adjustment is needed in his blood pressure meds: He is also encouraged to drink more water daily Drinks decaf coffee, as well as 2 diet cokes daily Does not like the taste of water * AB GRIFFITH - 08/15/2024 10:30 AM EDT Pt states that his dizziness has gotten worse. He does physical activities such as mowing and moving furniture around- causing more back pain he knows that he does have herniated discs Pt states [place] [facility] [place] that helped and he wouldn't mind getting a referral to do again Pt needs a refill on his metformin Pt states he has not heard from the [employer] Pt seen urologist Pt also had colonoscopy done [employer] October 09 * Marisol Boyce NP - 08/15/2024 10:30 AM EDT Images from the original note were not [...] discs Pt states he was [place] [facility] for injections that helped and he wouldn't mind getting a referral to do again Pt needs a refill on his metformin Pt states he has not heard from the [employer] Pt seen urologist Pt also had colonoscopy done [employer] October 09 CGM: 3 173 avg, 58% [...] and male sex. Current diabetic treatment includes i nsulin injections and oral agent (dual therapy). He is compliant with treatment all of the time. When asked about meal planning, he reported none. He rarely participates in exercise. His overall blood glucose range is 140-180 mg/dl. An COLLEEN inhibitor/angiotensin II receptor cesilia is being taken. He does not see a senior accounting specialist.Eye exam is not current. Hypertension This is [...] no compliance problems. Hypertensive end-organ damage includes CAD/CA and PVD. There is no history of [...] 06/07/2023 Bilateral carotid artery disease, unspecified type ([facility]) 06/07/2023 BPH (benign prostatic hyperplasia) 06/07/2023 Cervical spinal stenosis 06/07/2023 Coronary artery disease 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 artery of chickahominy indians-eastern division heart without angina pectoris ([facility]) 03/02/2023 COVID-19 virus detected Depression ([facility]) Erectile dysfunction 06/07/2023 Fatigue Granuloma annulare Hearing loss, bilateral Hyperlipidemia ([facility]) 06/07/2023 WESTLEY (iron deficiency anemia) 04/11/2023 Lumbar spondylosis Lumbosacral pain 04/11/2023 CORNELIA (obstructive sleep apnea) 06/07/2023 PAD (peripheral artery disease) ([facility]) 03/25/2023 Primary hypertension ([facility]) 04/11/2023 Tobacco user 06/07/2023 Tubulovillous adenoma of [...] feet frequently monitoring for open wounds , andalso recommend yearly eye exam. Pt should attempt [...] insulin, metformin A1c: 6.3% 07/11/24 Primary hypertension ([facility]) Please check blood pressure daily and record [...] info on advanced directives as well Hyperlipidemia (CMS/HCC) Continue statin Check labs yearly, and prn dose changes Bilateral carotid artery disease, unspecified type (CMS/HCC) Cont asa, statin Periodic monitoring with US A-fib (CMS/HCC) Is on amiodirone as well as anti coagulation NSR today Cont with cardiology Centrilobular emphysema (CMS/HCC) Noted on imaging, does not take any medications on a regular basis Type 2 diabetes mellitus with other specified complication PAD, CAD, ED Dizziness and giddiness Only notes when getting up from sitting to standing Orthostatics in office: Blvse180/60 Sittin/56 Standin/54 I will reach out to cardiology to see if they feel an adjustment is needed in his blood pressure meds: He is also encouraged to drink more water daily Drinks decaf coffee, as well as 2 diet cokes daily Does not like the taste of water * Marisol Boyce NP - 08/15/2024 6:45 AM EDTAssociated Problem(s): Encounter for subsequent annual wellness visit (AWV) in Medicare patient Reviewed Ht/Wt/BMI Recommend eye exam yearly Recommend dental exams twice a year Balance work/leisure activities Exercises is recommended most days of the week (appropriate as chronic conditions allow) Follow up yearly and prn Also gave info on advanced directives as well * Marisol Boyce NP - 08/15/2024 6:45 AM EDTAssociated Problem(s): Hyperlipidemia (CMS/HCC) Continue statin Check labs yearly, and prn dose changes * Marisol Boyce NP - 08/15/2024 6:45 AM EDTAssociated Problem(s): Type 2 diabetes mellitus without complication, with long-term current use ofinsulin Check blood sugars daily, notify if <70 or >200. Take medications (pills or insulin) as directed. Monitor for s/s of hypoglycemia (sweaty, dizziness, nausea, vomiting, or shakiness). Watch for increase in thirst, urination, or appetite. Inspect feet frequently monitoring for open wounds , andalso recommend yearly eye exam. Pt should attempt [...] colleen, farxiga, insulin, metformin A1c: 6.3% 07/11/24 * Marisol Boyce NP - 08/15/2024 6:44 AM EDTAssociated Problem(s): Type 2 diabetes mellitus with other specified complication PAD, CAD, ED * Marisol Boyce NP - 08/15/2024 6:44 AM EDTAssociated Problem(s): Primary hypertension (CMS/HCC) Please check blood pressure daily and record DASH diet Limit caffeine Take medication as directed Contact office if chest pain, pressure, dizziness, shortness of breath, swelling legs Recommend slow position changes Cont current meds: lisinopril, carvedilol * Marisol Boyce NP - 08/15/2024 6:44 AM EDTAssociated Problem(s): Bilateral carotid artery disease, unspecified type (CMS/HCC) Cont asa, statin Periodic monitoring with US * Marisol Boyce NP - 08/15/2024 6:43 AM EDTAssociated Problem(s): A-fib (CMS/HCC) Is on amiodirone as well as anti coagulation NSR today Cont with cardiology * Marisol Boyce NP - 08/15/2024 6:43 AM EDTAssociated Problem(s): Centrilobular emphysema ([facility]/HCC) Noted on imaging, does not take any medications on a regular basis * Marisol Boyce NP - 08/15/2024 6:43 AM EDTAssociated Problem(s): CORNELIA (obstructive sleep apnea) You have [...] that manages your CORNELIA: documented in this encounterResearch Belton [id number] Instructions* Patient Instructions* Marisol Boyce NP - 08/15/2024 10:30 AM EDT Drink more fluids, will reach out to cardiology for advice on BP documented in this encounterResearch Belton [id number] NotePatient Education Urology Benign Prostatic Hyperplasia Benign prostatic hyperplasia (BPH) is an enlarged prostate gland that is caused by the normal agingprocess. The prostate may get bigger as a man gets older. The condition is not caused by cancer. The prostate is a walnut-sized gland that is involved in the production of semen. It is located in front of the rectum and below the bladder. The bladder stores urine. The urethra carries stored urine ou t of the body. An enlarged prostate can press on the urethra. This can make it harder to pass urine. The buildup of urine in the bladder can cause infection. Back pressure and infection may progress to bladder damage and kidney (renal) failure. What are the causes? This condition is part of the normal aging process. However, not all men develop problems from thiscondition. If the prostate enlarges away from the [...] this procedure, a tool is inserted through theopening at the tip of the penis (urethra). [...] procedure uses radio frequencies to destroy and removea small amount of prostate tissue. ? Interstitial laser coagulation (ILC). This procedure uses a laser to destroy and remove a small amount of prostate tissue. ? Transurethral electrovaporization (TUVP). This procedure uses electrodes to destroy and remove a small amount of prostate tissue. ? Prostatic urethral lift. This procedure inserts an implant to push the lobes of the prostate awayfrom the urethra. Follow these instructions at home: ??? Take dmom-slp-gnuibgy and prescription medicines only as told by [...] symptoms do not get (more content not included)...[facility]02-18-[facility]25 History of Present illness Narrative* Marisol Boyce NP - 05/15/2024 10:27 AM ESTAssociated Problem(s): Primary insomnia Recommend no napping during the day, can try melatonin up to 10mg at bedtime If not helpful consider trazadone, will call if he needs it * AB GRIFFITH - 05/15/2024 9:20 AM EST 110-250 after he eats 80-100 for fasting sugar Pt has been taking the metformin 500mg 1x daily wants to know if he needs to take more; before he was taking 1000mg 2x daily Current 126 after eating 1 piece of toast. Pt would like to note that he is not active with it being cold. * Marisol Boyce NP - 05/15/2024 9:20 AM EST Images from the original note were not [...] helps recognize possible causes to elevated sugars: lackof exercise, when doing cardiac rehab numbers were [...] include no polyphagia. There are no hypoglycemic complications.Symptoms are stable. Diabetic complications include heart disease and PVD. Risk factors for coronary artery disease include diabetes mellitus, dyslipidemia, hypertension, male sex and sedentary lifestyle. Current diabetic treatment includes oral agent (dual therapy) and insulin injections. He is compliant with treatment all of the time. An COLLEEN inhibitor/angiotensin II receptor cesilia is being taken. He does not see a senior accounting specialist.Eye exam is not current. Hypertension This is a chronic problem. The current episode started more than 1 year ago. The problem is unchanged. The problem is controlled. Pertinent negatives include no orthopnea, peripheral edema or shortness of breath. (Dizziness at times, position changes) There are no associated agents to hypertension.Risk factors for coronary artery disease include diabetes mellitus, dyslipidemia, male gender and sedentary lifestyle. Past treatments include beta blockers and COLLEEN inhibitors. The current treatment provides significant improvement. There are no compliance problems. Hypertensive end-organ damage includes CAD/CA, heart failure and PVD. There is no [...] 06/07/2023 Bilateral carotid artery disease, unspecified type ([facility]) 06/07/2023 BPH (benign prostatic hyperplasia) 06/07/2023 Cervical spinal stenosis 06/07/2023 Coronary artery disease 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 artery of chickahominy indians-eastern division heart without angina pectoris ([facility]) 03/02/2023 COVID-19 virus detected Depression ([facility]) Erectile dysfunction 06/07/2023 Fatigue Granuloma annulare Hearing loss, bilateral Hyperlipidemia ([facility]) 06/07/2023 WESTLEY (iron deficiency anemia) 04/11/2023 Lumbar spondylosis Lumbosacral pain 04/11/2023 CORNELIA (obstructive sleep apnea) 06/07/2023 PAD (peripheral artery disease) ([facility]) 03/25/2023 Primary hypertension ([facility]) 04/11/2023 Tobacco user 06/07/2023 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 Type 2 diabetes mellitus without complication, with long-term current use of insulin ([facility]) 03/22/2023 Past Surgical History: Procedure Laterality Date [...] Addressed This Visit Coronary artery disease 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 artery of chickahominy indians-eastern division heart without angina pectoris ([facility]) - Primary Follows with cardiology Current meds: asa, statin, b cesilia, Relevant Orders Comprehensive metabolic panel Type 2 diabetes mellitus without complication, with long-term current use of insulin ([facility]) Check blood sugars daily, notify if <70 or >200. Take medications (pills or insulin) as directed. Monitor for s/s of hypoglycemia (sweaty, dizziness, nausea, vomiting, or shakiness). Watch for increase in thirst, urination, or appetite. Inspect feet frequently monitoring for open wounds , andalso recommend yearly eye exam. Pt should attempt [...] ratio Hemoglobin A1c PAD (peripheral artery disease) ([facility]) Continue asa and statin Primary hypertension ([facility]) Please check blood pressure daily and record [...] Orders CBC and differential Iron level Hyperlipidemia ([facility]) Continue statin Check labs yearly, and prn dose changes Relevant Orders Comprehensive metabolic panel Lipid panel Erectile dysfunction A-fib ([facility]/HCC) Is on amiodirone as well as anti coagulation NSR today Cont with cardiology Relevant Orders CBC and differential Centrilobular emphysema (CMS/HCC) Noted on imaging, does not take any medications on a regular basis Type 2 diabetes mellitus with other specified complication ([facility]/HCC) PAD, CAD, ED Relevant Orders Comprehensive metabolic panel Type 2 diabetes mellitus 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 ([facility]/HCC) Primary insomnia Recommend no napping during the day, can try melatonin up to 10mg at bedtime If not helpful consider trazadone, will call if he needs it * Marisol Boyce NP - 05/15/2024 6:38 AM ESTAssociated Problem(s): Hyperlipidemia ([facility]) Continue statin Check labs yearly, and prn dose changes * Marisol Boyce NP - 05/15/2024 6:37 AM ESTAssociated Problem(s): WESTLEY (iron deficiency anemia) Check labs in 06/19 * Marisol Boyce NP - 05/15/2024 6:37 AM ESTAssociated Problem(s): Type 2 diabetes mellitus without complication, with long-term current use ofinsulin ([facility]) Check blood sugars daily, notify if <70 or >200. Take medications (pills or insulin) as directed. Monitor for s/s of hypoglycemia (sweaty, dizziness, nausea, vomiting, or shakiness). Watch for increase in thirst, urination, or appetite. Inspect feet frequently monitoring for open wounds , andalso recommend yearly eye exam. Pt should attempt [...] up dose of metformin to 500mg BID * Marisol Boyce NP - 05/15/2024 6:36 AM ESTAssociated Problem(s): Type 2 diabetes mellitus with other specified complication ([facility]) PAD, CAD, ED * Marisol Boyce NP - 05/15/2024 6:35 AM ESTAssociated Problem(s): Primary hypertension ([facility]) Please check blood pressure daily and record DASH diet Limit caffeine Take medication as directed Contact office if chest pain, pressure, dizziness, shortness of breath, swelling legs Recommend slow position changes Cont current meds: lisinopril, carvedilol * Marisol Boyce NP - 05/15/2024 6:35 AM ESTAssociated Problem(s): PAD (peripheral artery disease) ([facility]) Continue asa and statin * Marisol Boyce NP - 05/15/2024 6:34 AM ESTAssociated Problem(s): Coronary artery disease 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 artery of chickahominy indians-eastern division heart without angina pectoris ([facility]) Follows with cardiology Current meds: asa, statin, b cesilia, * Marisol Boyce NP - 05/15/2024 6:27 AM ESTAssociated Problem(s): A-fib (CMS/HCC) Is on amiodirone as well as anti coagulation NSR today Cont with cardiology * Marisol Boyce NP - 05/15/2024 6:27 AM ESTAssociated Problem(s): Centrilobular emphysema (CMS/HCC) Noted on imaging, does not take any medications on a regular basis documented in this [facility]02-18-2025 Instructions* Patient Instructions* Marisol Boyce NP - 05/15/2024 9:20 AM [...] Labs due AFTER 06/14/24 documented in this [facility]01-22-2025 Miscellaneous Notes* Telephone Encounter - Fiona Miguel, TERRAZZO ROLLER - 04/18/2024 9:21 AM EST ----- Message from Dr. Sabino Mauricio DO sent at 04/16/2024 10:07 AM EST ----- Please let patient know that he has Barretts esophagus and I recommend handout on Barretts esophagus and let him know that this is increased risk of cancer 1- 2% and I recommend surveillance endoscopyin 5 years. He also had a tubular adenoma in the colon which is precancerous and I recommend colonoscopy in 5 years if he so wishes again. I am also going to send in a prescription for omeprazole 40 mg daily for 6-8 weeks. If he needs it after that he may get it from his PCP. ThanksDr. Mcgarry documented in this encounterUC [facility]01-[facility] Telephone encounter Note* Telephone Encounter - Fiona Miguel CMA - 04/18/2024 9:21 AM EST ----- Message from Dr. Sabino Mauricio DO sent at 04/16/2024 10:07 AM EST ----- Please let patient know that he has Barretts esophagus and I recommend handout on Barretts esophagus and let him know that this is increased risk of cancer 1- 2% and I recommend surveillance endoscopyin 5 years. He also had a tubular adenoma in the colon which is precancerous and I recommend colonoscopy in 5 years if he so wishes again. I am also going to send in a prescription for omeprazole 40 mg daily for 6-8 weeks. If he needs it after that he may get it from his PCP. Thanks, Dr. Mcgarry [facility]01-08-[facility] History of Present illness Narrative* Marlin Koch, RAILROAD DISPATCHER-TURKISH RUBBER - 04/04/2024 11:45 AM EST Images from the original note were not [...] cancer. He was hospitalized in September at [facility] for NSTEMI and a-fib. He is on aspirin and Eliquis daily. He denies chest pain and shortness of breath. His logistics planning engineer is Dr. Campo in [place]. Review of Systems Constitutional: Negative for fever [...] COVID-19 11/2021 Diabetes mellitus type 2, controlled ([facility] Dizziness HL (hearing loss) hearing aid both ears Hyperlipidemia Hypertension Injury of back Low back pain Myocardial infarction ([facility]) 2004 Pancreatitis 2017 Peripheral arterial occlusive disease ([facility] Visual impairment glasses Wears dentures Past Surgical History: Procedure Laterality Date ARTHROSCOPY SHOULDER WITH SUBACROMIAL DECOMPRESSION AND DEBRIDEMENT TYPE 1 SLAP LESION Left 01/11/2017 Performed by Jr Eliezer Gifford DO at [facility] CARDIAC CATHETERIZATION 5 stents, most recent placed 12/2004 CATARACT EXTRACTION CHOLECYSTECTOMY COLONOSCOPY N/A 10/26/2018 Performed by Sabino Mauricio DO at [facility] EGD N/A 05/03/2019 Performed by Sabino Mauricio DO at [facility] EGD, DILATATION N/A 05/03/2019 Performed by Sabino Mauricio DO at [facility] INJECTION BLOCK NERVE MEDIAL BRANCH: bilat T 10/02 11/03 Bilateral 03/05/2022 Performed by Gabriel Hanson MD at [facility] INJECTION BLOCK NERVE MEDIAL BRANCH: bilat T 10/02 8/ Bilateral 01/29/2022 Performed by Gabriel Hanson MD at [facility] INJECTION BLOCK NERVE MEDIAL BRANCH: right L 3/4 4/5 Right 09/05/2020 Performed by Gabriel Hanson MD at [facility] INJECTION BLOCK NERVE MEDIAL BRANCH: right [id number] Right 10/10/2020 Performed by Gabriel Hanson MD at [facility] INJECTION LARGE JOINT BURSA: left hip Left 04/13/2019 Performed by Gabriel Hanson MD at [facility] MEDIAL BRANCH NERVE BLOCK: left [id number] Left 10/26/2019 Performed by Gabriel Hanson MD at [facility] INJECTION SI JOINT-Left Left 10/20/2018 Performed by Gabriel Hanson MD at [facility] INJECTION STEROID EPI 1 WITH SEDATION: left [id number] Left 08/03/2019 Performed by Gabriel Hanson MD at [facility] INJECTION STEROID EPI 1 WITH SEDATION: left [id number] Left 09/03/2019 Performed by Gabriel Hanson MD at [facility] ADELE PROCEDURE SHOULDER Left 01/11/2017 Performed by Jr Eliezer Gifford DO at [facility] RADIOFREQUENCY ABLATION SPINAL: Left T 7/8 8/9 Left 04/23/2022 Performed by Gabriel Hanson MD at [facility] RADIOFREQUENCY ABLATION SPINAL: Right T 7/8 8/9 Right 04/09/2022 Performed by Gabriel Hanson MD at [facility] No Known Allergies Current Outpatient Medications: albuterol (PROVENTIL HFA;VENTOLIN HFA) 90 mcg/actuation inhaler, INHALE 2 PUFFS BY MOUTH EVERY 6 HOURS NEEDED FOR WHEEZING, Disp: 54 g, Rfl: 1 amiodarone (PACERONE) 200 mg tablet, Take 1 tablet (200 mg total) by mouth in the morning., Disp: ,Rfl: apixaban (ELIQUIS) 5 mg tablet, Take by [...] Strain: Low Risk (11/10/2023) Received from [facility] Overall Financial Resource Strain (CARDIA) Difficulty of Paying Living Expenses: Not hard at all Food Insecurity: No Food Insecurity (04/04/2024) Hunger Screening Food Insecurity - Worry: Never True Food Insecurity - Inability: Never True Transportation Needs: No Transportation Needs (11/10/2023) Received from [facility] Transportation In the past 12 months, has lack of transportation kept you from medical appointments or from getting medications?: No Lack of Transportation (Non-Medical): Not on file Physical Activity: Inactive (06/07/2023) [facility] Exercise Vital Sign Days of Exercise per Week: 0 days Minutes of Exercise per Session: 0 min Stress: Stress Concern Present (06/07/2023) [facility] [employer] [place] [employer] - Occupational Stress Questionnaire Feeling of Stress : To some extent Social Connections: Moderately Integrated (06/07/2023) [facility] Social Connection and Isolation Panel [NHANES] Frequency of Communication with Friends and Family: More than three times a week Frequency of Social Gatherings with Friends and Family: Once a week Attends Worship Services: More than 4 times per year Active Member of Clubs or Organizations: No Attends Club or Organization Meetings: Never Marital Status: Interpersonal Safety: Not At Risk (11/10/2023) Received from [facility] Humiliation, Afraid, Rape, and Kick questionnaire Fear of Current or Ex-Partner: No Emotionally Abused: No Physically Abused: No Sexually Abused: No Housing Instability: Low Risk (11/10/2023) Received from [facility] Housing Stability Vital Sign Unable to Pay for Housing in the Last Year: Not on file Number of Places Lived in the Last Year: Not on file In the last 12 months, was there a time when you did not have a steady place to sleep or slept in ashelter (including now)?: No Family History Problem Relation [...] 2 days prior, office will check with Cardiolo gy. Evaluation included: Preparing to see the patient (e.g., review of tests) Obtaining and/or reviewing separately obtained history Performing a medically appropriate examination and/or evaluation Counseling and educating the patient/family/caregiver Referring and communicating with other health healthcare market consultant Encounter for colonoscopy due to history of colonic polyp [Z12.11, Z86.0100] SATURNINO BHANDARI [facility] [place] This note was created with the assistance of a speech recognition program. While intending to generate a timely document that accurately reflects the content of the visit, no guarantee can be provided that every grammatical or spelling mistake has been or will be identified or corrected. Thank you for your understanding. SATURNINO Bhandari 04/04/24 1156 documented in this encounterUC [facility]12-[facility] Note Chief Complaint: Patient here [...] Final Discharge Diagnosis: 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 ([facility]) Admission Diagnosis: A-fib ([facility]) [I48.91] Hospital course: 78 yo M with history of multivessel CAD s/p RCA stent 2022, HFpEF, MVR, HTN, PAD, IDDM2 who presented to outside ED with chest pressure and was found to be in Afib with RVR with rates up to 150s. Troponin was elevated at 100. He was given Cardizem, which converted him to sinus, and he was transferred to [facility]. 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 He was hospitalized in September at [facility] for NSTEMI and a-fib. He is on aspirin and Eliquis daily. He denies chest pain and shortness of breath. His logistics planning engineer is Dr. Campo in [place]. Review of Systems Constitutional: Negative for fever [...] COVID-19 11/2021 Diabetes mellitus type 2, controlled ([facility] Dizziness HL (hearing loss) hearing aid left ear Hyperlipidemia Hypertension Injury of back Low back pain Myocardial infarction ([facility] 2004 Pancreatitis 2017 Peripheral arterial occlusive disease ([facility] Visual impairment glasses Wears dentures Past Surgical History: Procedure Laterality Date ARTHROSCOPY SHOULDER WITH SUBACROMIAL DECOMPRESSION AND DEBRIDEMENT TYPE 1 SLAP LESION Left 01/11/2017 Performed by Jr Eliezer Gifford DO at [facility] CARDIAC CATHETERIZATION 5 stents, most recent placed 12/2004 CATARACT EXTRACTION CHOLECYSTECTOMY COLONOSCOPY N/A 10/26/2018 Performed by Sabino Mauricio DO at [facility] EGD N/A 05/03/2019 Performed by Sabino Mauricio DO at [facility] EGD, DILATATION N/A 05/03/2019 Performed by Sabino aMuricio DO at [facility] INJECTION BLOCK NERVE MEDIAL BRANCH: bilat T 10/02 11/03 Bilateral 03/05/2022 Performed by Gabriel Hanson MD at [facility] INJECTION BLOCK NERVE MEDIAL BRANCH: bilat T 10/02 11/03 Bilateral 01/29/2022 Performed by Gabriel Hanson MD at [facility] INJECTION BLOCK NERVE MEDIAL BRANCH: right L 3/4 4/5 Right 09/05/2020 Performed by Gabriel Hanson MD at [facility] INJECTION BLOCK NERVE MEDIAL BRANCH: right [id number] Right 10/10/2020 Performed by Gabriel Hanson MD at [facility]: left hip Left 04/13/2019 Performed by Gabriel Hanson MD at [facility] INJECTION MEDIAL BRANCH NERVE BLOCK: left [id number] Left 10/26/2019 Performed by Gabriel Hanson MD at [facility] INJECTION SI JOINT-Left Left 10/20/2018 Performed by Gabriel Hanson MD at [facility] INJECTION STEROID EPI 1 WITH SEDATION: left [id number] Left 08/03/2019 Performed by Gabriel Hanson MD at [facility] INJECTION STEROID EPI 1 WITH SEDATION: left [id number] Left 09/03/2019 Performed by Gabriel Hanson MD at [facility] PROCEDURE SHOULDER Left 01/11/2017 Performed by Jr Eliezer Gifford DO at [facility] RADIOFREQUENCY ABLATION SPINAL: Left T 7/8 8/9 Left 04/23/2022 Performed by Gabriel Hanson MD at [facility] RADIOFREQUENCY ABLATION SPINAL: Right T 7/8 8/9 Right 04/09/2022 Performed by Gabriel Hanson MD at [facility] No Known Allergies Current Outpatient Medications: albuterol (PROVENTIL HFA;VENTOLIN HFA) 90 mcg/actuation inhaler, INHALE 2 PUFFS BY MOUTH EVERY 6 HOURS NEEDED FOR WHEEZING, Disp: 54 g, Rfl: 1 amiodarone (PACERONE) 200 mg tablet, Take 1 tablet (200 mg total) by mouth in the morning., Disp: ,Rfl: apixaban (ELIQUIS) 5 mg tablet, Take by [...] MOUTH DAILY, Disp: , Rfl: peg 3350-sod sulf,hvyi-rff-vew 178.7-7.3-0.5 gram recon soln, Take 1 kit [...] Strain: Low Risk (11/10/2023) Received from [facility] Overall Financial Resource Strain (CARDIA) Difficulty of Paying Living Expenses: Not hard at all Food Insecurity: No Food Insecurity (11/10/2023) Received from [facility] Hunger Vital Sign Within the past 12 months, you worried that your food would run out before you got the money to buymore.: Never true Ran Out of Food in the Last Year: Not on file Transportation Needs: No Transportation Needs (11/10/2023) Received from [facility] Transportation In the past 12 months, has lack of transportation kept you from medical appointments or from getting medications?: No Lack of Transportation (Non-Medical): Not on file Physical Activity: Inactive (06/07/2023) Received from [facility] Exercise Vital Sign Days of Exercise per Week: 0 days Minutes of Exercise per Session: 0 min Stress: Stress Concern Present (06/07/2023) Received from [facility] [employer] [place] [employer] - Occupational Stress Questionnaire Feeling of Stress : To some extent Social Connections: Moderately Integrated (06/07/2023) Received from [facility] Social Connection and Isolation Panel [NHANES] Frequency of Communication with Friends and Family: More than three times a week Frequency of Social Gatherings with Friends and Family: Once a week Attends Worship Services: More than 4 times per year Active Member of Clubs or Organizations: No Attends Club or Organization Meetings: Never Marital Status: Interpersonal Safety: Not At Risk (11/10/2023) Received from [facility] Humiliation, Afraid, Rape, and Kick questionnaire Fear of Current or Ex-Partner: No Emotionally Abused: No Physically Abused: No Sexually Abused: No Housing Instability: Low Risk (11/10/2023) Received from [facility] Housing Stability Vital Sign Unable to Pay for Housing in the Last Year: Not on file Number of Places Lived in the Last Year: Not on file In the last 12 months, was there a time when you did not have a steady place to sleep or slept in ashelter (including now)?: No Family History Problem Relation [...] 2 days prior, office will check with Cardiolo gy. Evaluation included: Preparing to see the patient (e.g., review of tests) Obtaining and/or reviewing separately obtained history Performing a medically appropriate examination and/or evaluation Counseling and educating the patient/family/caregiver Referring and communicating with other health healthcare market consultant Encounter for colonoscopy due to history of colonic polyp [Z12.11, Z86.0100] SATURNINO BHANDARI [facility] General Surgery [place] This note was created with the assistance of a speech recognition program. While intending to generate a timely document that accurately reflects the content of the visit, no guarantee can be provided that every grammatical or spelling mistake has been or will be identified or corrected. Thank you for your understanding. SATURNINO Bhandari 03/05/24 1215 documented [facility]UC [facility] History of Present illness Narrative* Marisol Boyce NP - 02/15/2024 1:59 PM ESTAssociated Problem(s): Lumbosacral spondylosis without myelopathy Will call his pain mgmt to schedule * Marisol Boyce NP - 02/15/2024 1:57 PM ESTAssociated Problem(s): Tubulovillous adenoma of colon Refer back to ольга * AB GRIFFITH - 02/15/2024 1:20 PM EST Pt is in cardiac therapy three times [...] meds would interact what he already takes * Marisol Boyce NP - 02/15/2024 1:20 PM EST Images from the original note were not [...] no compliance problems. Hypertensive end-organ damage includes CAD/CA, heart failure and PVD. Diabetes He has [...] being taken. He does not see a senior accounting specialist.Eye exam is not current. SUBJECTIVE: MEDICATIONS: Current [...] 06/07/2023 Bilateral carotid artery disease, unspecified type [facility]) 06/07/2023 BPH (benign prostatic hyperplasia) 06/07/2023 Cervical spinal stenosis 06/07/2023 Coronary artery disease 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 artery of chickahominy indians-eastern division heart without angina pectoris ([facility]) 03/02/2023 COVID-19 virus detected Depression ([facility]) Erectile dysfunction 06/07/2023 Fatigue Granuloma annulare Hearing loss, bilateral Hyperlipidemia ([facility]) 06/07/2023 WESTLEY (iron deficiency anemia) 04/11/2023 Lumbar spondylosis Lumbosacral pain 04/11/2023 CORNELIA (obstructive sleep apnea) 06/07/2023 PAD (peripheral artery disease) ([facility]) 03/25/2023 Primary hypertension ([facility]) 04/11/2023 Tobacco user 06/07/2023 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 Type 2 diabetes mellitus without complication, with long-term current use of insulin ([facility]) 03/22/2023 Past Surgical History: Procedure Laterality Date [...] complication, with long-term current use of insulin ([facility]) - Primary Check blood sugars daily, notify if <70 or >200. Take medications (pills or insulin) as directed. Monitor for s/s of hypoglycemia (sweaty, dizziness, nausea, vomiting, or shakiness). Watch for increase in thirst, urination, or appetite. Inspect feet frequently monitoring for open wounds , andalso recommend yearly eye exam. Pt should attempt [...] General Surgery Riley esophagus Needs repeat EGD [facility] BPH (benign prostatic hyperplasia) Continue with flomax Erectile dysfunction 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 (CMS/HCC) Cont [...] Relevant Orders Ambulatory referral to General Surgery * Marisol Boyce NP - 02/15/2024 7:38 AM ESTAssociated Problem(s): Colon cancer screening Colon cancer screening options were discussed with patient, as well as why colon cancer screening is indicated. Options are Colonoscopy: direct visualization, every 10 years (unless indicated more frequently), risks and benefits were discussed Cologuard: every 3 years, risks and benefits were discussed , contraindications were discussed (family hx of colon cancer, colon polyps) Patient has elected to: * Marisol Boyce NP - 02/15/2024 7:37 AM ESTAssociated Problem(s): Riley esophagus Needs repeat EGD Inocencioillis * Marisol Boyce NP - 02/15/2024 7:36 AM ESTAssociated Problem(s): Type 2 diabetes mellitus without complication, with long-term current use ofinsulin ([facility]) Check blood sugars daily, notify if <70 or >200. Take medications (pills or insulin) as directed. Monitor for s/s of hypoglycemia (sweaty, dizziness, nausea, vomiting, or shakiness). Watch for increase in thirst, urination, or appetite. Inspect feet frequently monitoring for open wounds , andalso recommend yearly eye exam. Pt should attempt [...] metfromin 500mg daily Fu in 3 months * Marisol Boyce NP - 02/15/2024 7:35 AM ESTAssociated Problem(s): BPH (benign prostatic hyperplasia) Continue with flomax * Marisol Boyce NP - 02/15/2024 7:35 AM ESTAssociated Problem(s): 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 ([facility]) Cont with asa, statin, b cesilia And cardiology * Marisol Boyce NP - 02/15/2024 7:34 AM ESTAssociated Problem(s): PAD (peripheral artery disease) ([facility]) Continue asa and statin * Marisol Boyce NP - 02/15/2024 7:34 AM ESTAssociated Problem(s): Primary hypertension (CMS/HCC) Please check blood pressure daily and record DASH diet Limit caffeine Take medication as directed Contact office if chest pain, pressure, dizziness, shortness of breath, swelling legs Recommend slow position changes Cont current meds documented in this [facility]11-20-2024 Instructions* Patient Instructions* Marisol Boyce NP - 02/15/2024 1:20 PM EST Restart metformin at 500mg once a day in morning, will call you in a month to see how sugars are doing: goal is at least 75-80% of time in range Refer to Dr Mauricio for EGD/Colonoscopy, NOT DURING [facility]!!! Keep up with cardiac rehab Schedule diabetic eye exam documented in this [facility]11-07-2024 Telephone encounter Note* Telephone Encounter - Marisol Boyce NP - 02/02/2024 3:44 PM EST Have we heard any reponse on a note I sent to you a few weeks ago about his metfromin?? [facility] [id number] Miscellaneous Notes* Telephone Encounter - Marisol Boyce NP - 02/02/2024 3:44 PM EST Have we heard any reponse on a note I sent to you a few weeks ago about his metfromin?? [place] documented in this encounterResearch Belton [id number] History of Present illness Narrative* Marisol Boyce NP - 01/04/2024 6:50 PM EDTAssociated Problem(s): Type 2 diabetes mellitus without complication, with long-term current use ofinsulin ([facility]) Consider GLP 1 possible hx of Pancreatitis but not totally sure, will look back in records If no GLP 1, consider bolus insulin with meals See list of blood sugar reads * Marisol Boyce NP - 01/04/2024 6:49 PM EDTAssociated Problem(s): Primary hypertension ([facility]) Stable today in office, suspicion the intermittent dizziness he gets with a position changes is more of an orthostatic change Slow position changes Reviewing his med list: out list says lisinopril 20mg and amolodipine 5mg, he thinks his lisinoprilis only 5 or 10mg and he does not think he is taking his amlodipine, I did call Joan at [facility] cardiology and she will verify * AB GRIFFITH - 01/04/2024 9:00 AM EDT Pt is concerned about his blood sugars- * Marisol Boyce NP - 01/04/2024 9:00 AM EDT Images from the original note were not [...] pain, no foot paresthesias, no polydipsia, no polyphagia,no polyuria, no visual change and no weakness. There are no hypoglycemic complications. Diabetic complications include heart disease and PVD. Pertinent negatives for diabetic complications include noperipheral neuropathy. Risk factors for coronary artery disease [...] Past treatments include COLLEEN inhibitors and beta blockers.The current treatment provides significant improvement. There are no compliance problems. Hypertensive end-organ damage includes CAD/CA and PVD. SUBJECTIVE: MEDICATIONS: Current Outpatient Medications Medication Instructions amiodarone (PACERONE) 200 mg, Oral, Daily with breakfast amLODIPine (NORVASC) 5 mg, Oral, Daily RT apixaban (ELIQUIS) 5 mg, Oral, 2 times daily Aspirin Low Dose 81 mg, Oral, Daily atorvastatin (LIPITOR) 80 mg, Oral, Daily carvedilol (COREG) 3.125 mg, Oral, 2 times daily with meals Continuous Glucose Corporate [employer] Associate ([employer] G7 Corporate Communications Associate) device 1 each, Does not apply, Daily [...] 06/07/2023 Bilateral carotid artery disease, unspecified type ([facility]) 06/07/2023 BPH (benign prostatic hyperplasia) 06/07/2023 Cervical spinal stenosis 06/07/2023 Coronary artery disease 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 artery of chickahominy indians-eastern division heart without angina pectoris ([facility]) 03/02/2023 COVID-19 virus detected Depression ([facility]) Erectile dysfunction 06/07/2023 Fatigue Granuloma annulare Hearing loss, bilateral Hyperlipidemia ([facility]) 06/07/2023 WESTLEY (iron deficiency anemia) 04/11/2023 Lumbar spondylosis Lumbosacral pain 04/11/2023 CORNELIA (obstructive sleep apnea) 06/07/2023 PAD (peripheral artery disease) ([facility]) 03/25/2023 Primary hypertension ([facility]) 04/11/2023 Tobacco user 06/07/2023 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 Type 2 diabetes mellitus without complication, with long-term current use of insulin ([facility]) 03/22/2023 Past Surgical History: Procedure Laterality Date [...] 20mg and amolodipine 5mg, he thinks his lisinoprilis only 5 or 10mg and he does not think he is taking his amlodipine, I did call Joan at [facility] cardiology and she will verify Chronic thoracic back pain - Primary Relevant Orders XR thoracic spine 3 views documented in this encounterResearch Belton [id number] History of Present illness Narrative* Marisol Boyce NP - 11/22/2023 1:00 PM EDTAssociated Problem(s): 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) Per cardiology * Marisol Boyce NP - 11/22/2023 1:00 PM EDTAssociated Problem(s): Primary hypertension (CMS/HCC) No med dose changes at this time * Marisol Boyce NP - 11/22/2023 1:00 PM EDTAssociated Problem(s): Nonrheumatic mitral valve regurgitation Cont with cardiology for recommendations * Marisol Boyce NP - 11/22/2023 11:20 AM EDT Images from the original note were not [...] had shank in size but was still present.Ultimately it was decided that after all of [...] 2 times daily with meals Continuous Glucose 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 [employer] 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 ([employer] G7 Corporate Communications Associate) device 1 each, Does not apply, Daily [...] 06/07/2023 Bilateral carotid artery disease, unspecified type ([facility]) 06/07/2023 BPH (benign prostatic hyperplasia) 06/07/2023 Cervical spinal stenosis 06/07/2023 Coronary artery disease 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 artery of chickahominy indians-eastern division heart without angina pectoris ([facility]) 03/02/2023 COVID-19 virus detected Depression ([facility]) Erectile dysfunction 06/07/2023 Fatigue Granuloma annulare Hearing loss, bilateral Hyperlipidemia ([facility]) 06/07/2023 WESTLEY (iron deficiency anemia) 04/11/2023 Lumbar spondylosis Lumbosacral pain 04/11/2023 CORNELIA (obstructive sleep apnea) 06/07/2023 PAD (peripheral artery disease) ([facility]) 03/25/2023 Primary hypertension ([facility]) 04/11/2023 Tobacco user 06/07/2023 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 Type 2 diabetes mellitus without complication, with long-term current use of insulin ([facility]) 03/22/2023 Past Surgical History: Procedure Laterality Date [...] Addressed This Visit Coronary artery disease 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 artery of chickahominy indians-eastern division heart without angina pectoris (CMS/HCC) - Primary Primary hypertension (CMS/HCC) No med dose changes at this time Nonrheumatic mitral valve regurgitation Cont with cardiology for recommendations A-fib (CMS/HCC) 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 ED is considered a symptom of an underlying disorder and is not considered a disease. ED mayinclude: Inability to get an erection. Lack of [...] back or pelvic injuries, multiple sclerosis, Parkinson's disease,spinal cord injury, and stroke. Certain medicines, such [...] or the penis may be too curved toallow for intercourse. Never having nighttime or morning [...] penis. During this procedure, a blood vessel froma different part of the body is placed into the penis to allow blood to flow around (bypass) damaged or blocked blood vessels. Lifestyle changes, such as exercising more, losing weight, and quitting smoking. Follow these instructions at home: Medicines Take bgkw-xrv-wzpehoq and prescription medicines only as told by your health care provider. Do not increase the dosage without first discussing it with your health care provider. If you are using self-injections, do injections as directed by your health care provider. Make sureyou avoid any veins that are on the surface of the penis. After giving an injection, apply pressureto the injection site for 5 minutes. Talk [...] you need help quitting, ask your health careprovider. Before using a vacuum pump, read the instructions that come with the pump and discuss any questionswith your health care provider. Keep all follow-up [...] provider. Document Revised: 06/10/2021 Document Reviewed: 06/10/2021 [employer] Patient Education 2022 [facility]. Follow Up Care 06/18/2022 10:46:56 With:Chris QUINTANA, GEORGE Mitchell, URO Address: When:Within 1 Year(s) [facility] 03-22-2023 Hospital Discharge instructions Patient Education 06/16/2022 14:10:08 Benign Prostatic Hyperplasia Benign Prostatic Hyperplasia Benign prostatic hyperplasia (BPH) is an enlarged prostate gland that is caused by the normal agingprocess and not by cancer. The prostate is [...] urethra. Follow these instructions at home: Take gxjo-xin-azuprcv and prescription medicines only as told by [...] 03/14/2006 Document Revised: 02/06/2019 Document Reviewed: 04/18/2017 [employer] Patient Education 2020 [facility]. Follow Up Care 06/18/2021 11:18:31 With:Chris QUINTANA, GEORGE Mitchell, URO Address: When: Unknown [facility] 03-24-2022 Hospital Discharge instructions Patient Education 06/18/2021 11:19:48 [...] sure to eat fewer calories than your bodyneeds, you should lose weight. Ask your health care provider what a healthy weight is for you. For calorie counting to work, you will need to eat the right number of calories in a day in order to lose a healthy amount of weight per week. A dietitian can help you determine how many calories youneed in a day and will give you suggestions on how to reach your calorie goal. A healthy amount of weight to lose per week is usually 1 2 lb (0.5 0.9 kg). This usually means thatyour daily calorie intake should be reduced by [...] label. If a food does not have aNutrition Facts label, try to look up the calories online or ask your dietitian for help. Remember that calories are listed per serving. If you choose to have more than one serving of a food, you will have to multiply the calories per serving by the amount of servings you plan to eat. Forexample, the label on a package of bread [...] you how many calories you have left forthe day to meet your goal. What are [...] fat free foods. These foods sometimes have thesame amount of calories or more calories than the full fat versions. They also often have added sugar, starch, or salt, to make up for flavor that was removed with the fat. Find a way of tracking calories that works for you. Get creative. Try different apps or programs ifwriting down calories does not work for you. What are some portion control tips? Know how many calories are in a serving. This will help you know how many servings of a certain food you can have. Use a measuring cup to measure serving sizes. You could also try weighing out portions on a kitchenscale. With time, you will be able to [...] serving size may be smaller than what youare used to eating. Check the source of the calories. Make sure the food you are eating is high in vitamins and proteinand low in saturated and trans fats. Shopping [...] steamed. Stay away from items that are buttered,battered, fried, or served with cream sauce. Items [...] a serving of cooked rice is cup orabout the size of half a baseball. Knowing serving sizes will help you be aware of how much food you are eating at restaurants. The list below tells you how big or small some common portion sizes arebased on everyday objects: ?1 oz 4 stacked [...] label. If a food does not have aNutrition Facts label, try to look up the [...] 03/14/2006 Document Revised: 12/01/2018 Document Reviewed: 02/11/2017 [employer] Patient Education 2020 [facility]. 06/18/2021 11:19:47 Benign Prostatic Hyperplasia Benign Prostatic Hyperplasia Benign prostatic hyperplasia (BPH) is an enlarged prostate gland that is caused by the normal agingprocess and not by cancer. The prostate is [...] urethra. Follow these instructions at home: Take [id number] and prescription medicines only as told by [...] 03/14/2006 Document Revised: 02/06/2019 Document Reviewed: 04/18/2017 [employer] Patient Education 2020 [facility]. Follow Up Care 06/12/2020 11:26:53 With:ZULMA QUINTANA, Carlitos Villar, URL Address: [address] [place] [phone] When:Within 1 Year(s) Comments:w/PSA [facility] evaluation + Plan note Future Appointments Appointment Date:06/18/2022 10:00:00 AM Scheduled Provider:Deja Perez MD Location:[facility] Appointment Type:URO Office Visit Diagnostic Tests Pending * PSA Total 06/18/21 [facility] [employer]ric[employer]aluation + Plan note Future Appointments Appointment Date:06/23/2023 10:00:00 AM Scheduled Provider:Deja Perez MD Location:[facility] Appointment Type:URO Office Visit Diagnostic Tests Pending * PSA Free & Total 06/18/22 [facility] [employer]uation + Plan note Future Appointments Appointment Date:07/04/2024 10:45:00 AM Scheduled Provider:Deja Perez MD Location:[facility] Appointment Type:URO Office Visit Diagnostic Tests Pending * PSA Screen, Total 07/11/23 [facility] [employer]aluation + Plan note Future Appointments Appointment Date:07/18/2024 08:15:00 AM Scheduled Provider:Deja Perez MD Location:[facility] Appointment Type:URO Office Visit [facility] Evaluation note* Diagnosis Type 2 diabetes mellitus without complication, with long-term current use of insulin (CMS/HCC)- Primary Chronic thoracic back pain, unspecified back pain laterality Primary hypertension (CMS/HCC) Unspecified essential hypertension documented in this encounter [facility] HealthcareEvaluation note* Diagnosis Type 2 diabetes mellitus without complication, with long-term current use of insulin (CMS/HCC)- Primary Primary hypertension (CMS/HCC) Unspecified essential hypertension Coronary artery disease 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 artery of [place] heart without angina pectoris (CMS/HCC) PAD (peripheral artery disease) (CMS/HCC) Unspecified peripheral vascular disease Iron deficiency anemia, unspecified iron deficiency anemia type Lumbosacral pain Encounter for subsequent annual wellness visit (AWV) 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) Peripheral vascular disease, unspecified (I73.9) Peripheral vascular disease, unspecified Mixed hyperlipidemia (CMS/HCC) Mixed hyperlipidemia Iron deficiency anemia, unspecified iron deficiency anemia type Type 2 diabetes mellitus without complication, with long-term current use of insulin (CMS/HCC) COPD, moderate (CMS/HCC) Primary hypertension (CMS/HCC) Unspecified essential hypertension Coronary artery disease 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 artery of [place] heart without angina pectoris (CMS/HCC) PAD (peripheral artery disease) (CMS/HCC) Unspecified peripheral vascular disease Nonrheumatic mitral valve regurgitation Riley's esophagus with dysplasia Benign prostatic hyperplasia with lower urinary tract symptoms, symptom details unspecified Primary hypertension (CMS/HCC)- Primary Unspecified essential hypertension Type 2 diabetes mellitus without complication, with long-term current use of insulin (CMS/HCC) 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 (CMS/HCC)- Primary Type 2 diabetes mellitus with other specified complication (CMS/HCC) Male erectile dysfunction, unspecified Type 2 diabetes mellitus 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 (CMS/HCC) Acute cough Primary hypertension (CMS/HCC) Unspecified essential hypertension Paroxysmal atrial fibrillation (CMS/HCC) Atrial fibrillation Type 2 diabetes mellitus without complication, with long-term current use of insulin (CMS/HCC) Coronary artery disease 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 artery of [place] heart without angina pectoris (CMS/HCC)- Primary Other [...] peripheral vascular disease 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 (CMS/HCC) Riley's esophagus with dysplasia Erectile dysfunction due to diseases classified elsewhere Benign prostatic hyperplasia with lower urinary tract symptoms, symptom details unspecified Colon cancer screening Special screening for malignant neoplasms, colon Tubulovillous adenoma of colon Lumbosacral spondylosis without myelopathy documented in this encounter [facility] HealthcareEvaluation note* Diagnosis Coronary artery disease 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 artery of [place] heart without angina pectoris (CMS/HCC)- Primary Other thrombophilia (CMS/HCC) Paroxysmal atrial fibrillation (CMS/HCC) Atrial fibrillation Nonrheumatic mitral valve regurgitation Primary hypertension (CMS/HCC) Unspecified essential hypertension 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) documented in this encounter [facility] HealthcareEvaluation note* Diagnosis Benign prostatic hyperplasia with lower urinary tract symptoms, symptom details unspecified- Primary documented in this encounter [facility] HealthcareEvaluation note* Diagnosis Type 2 diabetes mellitus without complication, with long-term current use of insulin (CMS/HCC)- Primary Primary hypertension (CMS/HCC) Unspecified essential hypertension Coronary artery disease 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 artery of [place] heart without angina pectoris (CMS/HCC) PAD (peripheral artery disease) (CMS/HCC) Unspecified peripheral vascular disease Iron deficiency anemia, unspecified iron deficiency anemia type Lumbosacral pain Encounter for subsequent annual wellness visit (AWV) in Medicare patient- Primary longterm (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 of insulin (Z79.4) Peripheral vascular disease, unspecified (I73.9) Peripheral vascular disease, unspecified Mixed hyperlipidemia (CMS/HCC) Mixed hyperlipidemia Iron deficiency anemia, unspecified iron deficiency anemia type Type 2 diabetes mellitus without complication, with long-term current use of insulin (CMS/HCC) COPD, moderate (CMS/HCC) Primary hypertension (CMS/HCC) Unspecified essential hypertension Coronary artery disease 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 artery of [place] heart without angina pectoris (CMS/HCC) PAD (peripheral artery disease) (CMS/HCC) Unspecified peripheral vascular disease Nonrheumatic mitral valve regurgitation Riley's esophagus with dysplasia Benign prostatic hyperplasia with lower urinary tract symptoms, symptom details unspecified Primary hypertension (CMS/HCC)- Primary Unspecified essential hypertension Type 2 diabetes mellitus without complication, with long-term current use of insulin (CMS/HCC) 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 (CMS/HCC)- Primary Type 2 diabetes mellitus with other specified complication (CMS/HCC) Male erectile dysfunction, unspecified Type 2 diabetes mellitus 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 (CMS/HCC) Acute cough Primary hypertension (CMS/HCC) Unspecified essential hypertension Paroxysmal atrial fibrillation (CMS/HCC) Atrial fibrillation Type 2 diabetes mellitus without complication, with long-term current use of insulin (CMS/HCC) Coronary artery disease 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 artery of [place] heart without angina pectoris (CMS/HCC)- Primary Other [...] peripheral vascular disease 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 (CMS/HCC) Riley's esophagus with dysplasia Erectile dysfunction due to diseases classified elsewhere Benign prostatic hyperplasia with lower urinary tract symptoms, symptom details unspecified Colon cancer screening Special screening for malignant neoplasms, colon Tubulovillous adenoma of colon Lumbosacral spondylosis without myelopathy Type 2 diabetes mellitus without complication, with long-term current use of insulin (CMS/HCC)- Primary documented in this encounter [facility] HealthcareEvaluation note* Diagnosis Encounter for colonoscopy due to history of colonic polyp- Primary 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 documented in this encounter [facility] SystemEvaluation note* Diagnosis Type 2 diabetes mellitus without complication, with long-term current use of insulin (CMS/HCC)- Primary Primary hypertension (CMS/HCC) Unspecified essential hypertension Coronary artery disease 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 artery of [place] heart without angina pectoris (CMS/HCC) PAD (peripheral artery disease) (CMS/HCC) Unspecified peripheral vascular disease Iron deficiency anemia, unspecified iron deficiency anemia type Lumbosacral pain Encounter for subsequent annual wellness visit (AWV) 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) Peripheral vascular disease, unspecified (I73.9) Peripheral vascular disease, unspecified Mixed hyperlipidemia (CMS/HCC) Mixed hyperlipidemia Iron deficiency anemia, unspecified iron deficiency anemia type Type 2 diabetes mellitus without complication, with long-term current use of insulin (CMS/HCC) COPD, moderate (CMS/HCC) Primary hypertension (CMS/HCC) Unspecified essential hypertension Coronary artery disease 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 artery of [place] heart without angina pectoris (CMS/HCC) PAD (peripheral artery disease) (CMS/HCC) Unspecified peripheral vascular disease Nonrheumatic mitral valve regurgitation Riley's esophagus with dysplasia Benign prostatic hyperplasia with lower urinary tract symptoms, symptom details unspecified Primary hypertension (CMS/HCC)- Primary Unspecified essential hypertension Type 2 diabetes mellitus without complication, with long-term current use of insulin (CMS/HCC) 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 (CMS/HCC)- Primary Type 2 diabetes mellitus with other specified complication (CMS/HCC) Male erectile dysfunction, unspecified Type 2 diabetes mellitus 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 (CMS/HCC) Acute cough Primary hypertension (CMS/HCC) Unspecified essential hypertension Paroxysmal atrial fibrillation (CMS/HCC) Atrial fibrillation Type 2 diabetes mellitus without complication, with long-term current use of insulin (CMS/HCC) Coronary artery disease 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 artery of [place] heart without angina pectoris (CMS/HCC)- Primary Other [...] peripheral vascular disease 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 (CMS/HCC) Riley's esophagus with dysplasia Erectile dysfunction due to diseases classified elsewhere Benign prostatic hyperplasia with lower urinary tract symptoms, symptom details unspecified Colon cancer screening Special screening for malignant neoplasms, colon Tubulovillous adenoma of colon Lumbosacral spondylosis without myelopathy Type 2 diabetes mellitus without complication, with long-term current use of insulin (CMS/HCC)- Primary documented in this encounter [facility] HealthcareEvaluation noteNo assessment information availableChildren[facility]: Evaluation note* Diagnosis Type 2 diabetes mellitus without complication, with long-term current use of insulin (CMS/HCC)- Primary Primary hypertension (CMS/HCC) Unspecified essential hypertension Coronary artery disease 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 artery of chick[place] heart without angina pectoris (CMS/HCC) PAD (peripheral artery disease) (CMS/HCC) Unspecified peripheral vascular disease Iron deficiency anemia, unspecified iron deficiency anemia type Lumbosacral pain Encounter for subsequent annual wellness visit (AWV) in Medicare patient- Primary longterm (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 of insulin (Z79.4) Peripheral vascular disease, unspecified (I73.9) Peripheral vascular disease, unspecified Mixed hyperlipidemia (CMS/HCC) Mixed hyperlipidemia Iron deficiency anemia, unspecified iron deficiency anemia type Type 2 diabetes mellitus without complication, with long-term current use of insulin (CMS/HCC) COPD, moderate (CMS/HCC) Primary hypertension (CMS/HCC) Unspecified essential hypertension Coronary artery disease 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 artery of chick[place] heart without angina pectoris (CMS/HCC) PAD (peripheral artery disease) (CMS/HCC) Unspecified peripheral vascular disease Nonrheumatic mitral valve regurgitation Riley's esophagus with dysplasia Benign prostatic hyperplasia with lower urinary tract symptoms, symptom details unspecified Primary hypertension (CMS/HCC)- Primary Unspecified essential hypertension Type 2 diabetes mellitus without complication, with long-term current use of insulin (CMS/HCC) 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 (CMS/HCC)- Primary Type 2 diabetes mellitus with other specified complication (CMS/HCC) Male erectile dysfunction, unspecified Type 2 diabetes mellitus 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 (CMS/HCC) Acute cough Primary hypertension (CMS/HCC) Unspecified essential hypertension Paroxysmal atrial fibrillation (CMS/HCC) Atrial fibrillation Type 2 diabetes mellitus without complication, with long-term current use of insulin (CMS/HCC) Coronary artery disease 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 artery of [place] heart without angina pectoris (CMS/HCC)- Primary Other [...] peripheral vascular disease 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 (CMS/HCC) Riley's esophagus with dysplasia Erectile dysfunction due to diseases classified elsewhere Benign prostatic hyperplasia with lower urinary tract symptoms, symptom details unspecified Colon cancer screening Special screening for malignant neoplasms, colon Tubulovillous adenoma of colon Lumbosacral spondylosis without myelopathy Type 2 diabetes mellitus without complication, with long-term current use of insulin (CMS/HCC) documented in this encounter [facility] HealthcareEvaluation note* Diagnosis Encounter for colonoscopy due to history of colonic polyp- Primary 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 documented in this encounter [facility] SystemEvaluation note* Diagnosis Type 2 diabetes mellitus without complication, with long-term current use of insulin (CMS/HCC)- Primary Primary hypertension (CMS/HCC) Unspecified essential hypertension Coronary artery disease 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 artery of [place] heart without angina pectoris (CMS/HCC) PAD (peripheral artery disease) (CMS/HCC) Unspecified peripheral vascular disease Iron deficiency anemia, unspecified iron deficiency anemia type Lumbosacral pain Encounter for subsequent annual wellness visit (AWV) in Medicare patient- Primary longterm (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 of insulin (Z79.4) Peripheral vascular disease, unspecified (I73.9) Peripheral vascular disease, unspecified Mixed hyperlipidemia (CMS/HCC) Mixed hyperlipidemia Iron deficiency anemia, unspecified iron deficiency anemia type Type 2 diabetes mellitus without complication, with long-term current use of insulin (CMS/HCC) COPD, moderate (CMS/HCC) Primary hypertension (CMS/HCC) Unspecified essential hypertension Coronary artery disease 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 artery of [place] heart without angina pectoris (CMS/HCC) PAD (peripheral artery disease) (CMS/HCC) Unspecified peripheral vascular disease Nonrheumatic mitral valve regurgitation Riley's esophagus with dysplasia Benign prostatic hyperplasia with lower urinary tract symptoms, symptom details unspecified Primary hypertension (CMS/HCC)- Primary Unspecified essential hypertension Type 2 diabetes mellitus without complication, with long-term current use of insulin (CMS/HCC) 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 (CMS/HCC)- Primary Type 2 diabetes mellitus with other specified complication (CMS/HCC) Male erectile dysfunction, unspecified Type 2 diabetes mellitus 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 (CMS/HCC) Acute cough Primary hypertension (CMS/HCC) Unspecified essential hypertension Paroxysmal atrial fibrillation (CMS/HCC) Atrial fibrillation Type 2 diabetes mellitus without complication, with long-term current use of insulin (CMS/HCC) Coronary artery disease 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 artery of [place] heart without angina pectoris (CMS/HCC)- Primary Other [...] peripheral vascular disease 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 (CMS/HCC) Riley's [...] (CMS/HCC) Atrial fibrillation Coronary artery disease 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 artery of [place] heart without angina pectoris (CMS/HCC) Primary hypertension (CMS/HCC) Unspecified essential hypertension PAD (peripheral artery disease) (CMS/HCC) Unspecified peripheral vascular disease Iron deficiency anemia, unspecified iron deficiency anemia type Mixed hyperlipidemia (CMS/HCC) Mixed hyperlipidemia Primary insomnia Persistent disorder of initiating or maintaining sleep documented in this encounter [facility] HealthcareEvaluation note* Diagnosis Type 2 diabetes mellitus without complication, with long-term current use of insulin (CMS/HCC)- Primary Primary hypertension (CMS/HCC) Unspecified essential hypertension Coronary artery disease 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 artery of chick[place] heart without angina pectoris (CMS/HCC) PAD (peripheral artery disease) (CMS/HCC) Unspecified peripheral vascular disease Iron deficiency anemia, unspecified iron deficiency anemia type Lumbosacral pain Encounter for subsequent annual wellness visit (AWV) in Medicare patient- Primary longterm (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 of insulin (Z79.4) Peripheral vascular disease, unspecified (I73.9) Peripheral vascular disease, unspecified Mixed hyperlipidemia (CMS/HCC) Mixed hyperlipidemia Iron deficiency anemia, unspecified iron deficiency anemia type Type 2 diabetes mellitus without complication, with long-term current use of insulin (CMS/HCC) COPD, moderate (CMS/HCC) Primary hypertension (CMS/HCC) Unspecified essential hypertension Coronary artery disease 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 artery of [place] heart without angina pectoris (CMS/HCC) PAD (peripheral artery disease) (CMS/HCC) Unspecified peripheral vascular disease Nonrheumatic mitral valve regurgitation Riley's esophagus with dysplasia Benign prostatic hyperplasia with lower urinary tract symptoms, symptom details unspecified Primary hypertension (CMS/HCC)- Primary Unspecified essential hypertension Type 2 diabetes mellitus without complication, with long-term current use of insulin (CMS/HCC) 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 (CMS/HCC)- Primary Type 2 diabetes mellitus with other specified complication (CMS/HCC) Male erectile dysfunction, unspecified Type 2 diabetes mellitus 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 (CMS/HCC) Acute cough Primary hypertension (CMS/HCC) Unspecified essential hypertension Paroxysmal atrial fibrillation (CMS/HCC) Atrial fibrillation Type 2 diabetes mellitus without complication, with long-term current use of insulin (CMS/) Coronary artery disease 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 artery of [place] heart without angina pectoris (CMS/HCC)- Primary Other thrombophilia (CMS/HCC) Paroxysmal atrial fibrillation (CMS/HCC) Atrial fibrillation Nonrheumatic mitral valve regurgitation Primary hypertension (CMS/HCC) Unspecified essential hypertension 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) Type 2 diabetes mellitus without complication, with long-term current use of insulin (CMS/)- Primary Chronic thoracic back pain, unspecified back pain laterality Primary hypertension (CMS/HCC) Unspecified essential hypertension Type 2 diabetes mellitus without complication, with long-term current use of insulin (CMS/HCC)- Primary Primary hypertension (CMS/HCC) Unspecified essential hypertension PAD (peripheral artery disease) (CMS/HCC) Unspecified peripheral vascular disease 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 (CMS/HCC) Riley's esophagus with dysplasia Erectile dysfunction due to diseases classified elsewhere Benign prostatic hyperplasia with lower urinary tract symptoms, symptom details unspecified Colon cancer screening Special screening for malignant neoplasms, colon Tubulovillous adenoma of colon Lumbosacral spondylosis without myelopathy Type 2 diabetes mellitus without complication, with long-term current use of insulin (/HCC)- Primary Centrilobular emphysema (CMS/HCC) Type 2 diabetes mellitus with other specified complication (CMS/HCC) Erectile dysfunction due to diseases classified elsewhere Type 2 diabetes mellitus 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 (CMS/HCC) Paroxysmal atrial fibrillation (CMS/HCC) Atrial fibrillation Coronary artery disease 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 artery of [place] heart without angina pectoris (CMS/HCC) Primary hypertension (CMS/HCC) Unspecified essential hypertension PAD (peripheral artery disease) (CMS/HCC) Unspecified peripheral vascular disease Iron deficiency anemia, unspecified iron deficiency anemia type Mixed hyperlipidemia (CMS/HCC) Mixed hyperlipidemia Primary insomnia 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- Primary documented in this encounter [facility] HealthcareEvaluation note* Diagnosis Type 2 diabetes mellitus without complication, with long-term current use of insulin- Primary Primary hypertension (CMS/HCC) Unspecified essential hypertension Coronary artery disease 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 artery of [place] heart without angina pectoris (CMS/HCC) PAD (peripheral artery disease) (CMS/HCC) Unspecified peripheral vascular disease Iron deficiency anemia, unspecified iron deficiency anemia type Lumbosacral pain Encounter for subsequent annual wellness visit (AWV) 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) Peripheral vascular disease, unspecified (I73.9) Peripheral vascular disease, unspecified Mixed hyperlipidemia (CMS/HCC) Mixed hyperlipidemia Iron deficiency anemia, unspecified iron deficiency anemia type Type 2 diabetes mellitus without complication, with long-term current use of insulin COPD, moderate (CMS/HCC) Primary hypertension (CMS/HCC) Unspecified essential hypertension Coronary artery disease 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 artery of chick[place] heart without angina pectoris (CMS/HCC) PAD (peripheral artery disease) (CMS/HCC) Unspecified peripheral vascular disease Nonrheumatic mitral valve regurgitation Riley's esophagus with dysplasia Benign prostatic hyperplasia with lower urinary tract symptoms, symptom details unspecified Primary hypertension (CMS/HCC)- Primary Unspecified essential hypertension Type 2 diabetes mellitus without complication, with long-term current use of insulin 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 (CMS/HCC)- Primary Type 2 diabetes mellitus with other specified complication Male erectile dysfunction, unspecified Type 2 diabetes mellitus 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 (CMS/HCC) Acute cough Primary hypertension (CMS/HCC) Unspecified essential hypertension Paroxysmal atrial fibrillation (CMS/HCC) Atrial fibrillation Type 2 diabetes mellitus without complication, with long-term current use of insulin Coronary artery disease 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 artery of chick[place] heart without angina pectoris (CMS/HCC)- Primary Other [...] peripheral vascular disease 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 (CMS/HCC) Riley's [...] (CMS/HCC) Atrial fibrillation Coronary artery disease 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 artery of chick[place] indians[place] division heart without angina pectoris (CMS/HCC) Primary hypertension (CMS/HCC) Unspecified essential hypertension PAD (peripheral artery disease) (CMS/HCC) Unspecified peripheral vascular disease Iron deficiency anemia, unspecified iron deficiency anemia type Mixed hyperlipidemia (CMS/HCC) Mixed hyperlipidemia Primary insomnia Persistent disorder of initiating or maintaining sleep Benign prostatic hyperplasia with lower urinary tract symptoms, symptom details unspecified- Primary documented in this encounter [facility] HealthcareEvaluation note* Diagnosis Type 2 diabetes mellitus without complication, with long-term current use of insulin- Primary Primary hypertension (CMS/HCC) Unspecified essential hypertension Coronary artery disease 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 artery of chick[place] heart without angina pectoris (CMS/HCC) PAD (peripheral artery disease) (CMS/HCC) Unspecified peripheral vascular disease Iron deficiency anemia, unspecified iron deficiency anemia type Lumbosacral pain Encounter for subsequent annual wellness visit (AWV) in Medicare patient- Primary longterm (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 of insulin (Z79.4) Peripheral vascular disease, unspecified (I73.9) Peripheral vascular disease, unspecified Mixed hyperlipidemia (CMS/HCC) Mixed hyperlipidemia Iron deficiency anemia, unspecified iron deficiency anemia type Type 2 diabetes mellitus without complication, with long-term current use of insulin COPD, moderate (CMS/HCC) Primary hypertension (CMS/HCC) Unspecified essential hypertension Coronary artery disease 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 artery of chick[place] indians[place] division heart without angina pectoris (CMS/HCC) PAD (peripheral artery disease) (CMS/HCC) Unspecified peripheral vascular disease Nonrheumatic mitral valve regurgitation Rilye's esophagus with dysplasia Benign prostatic hyperplasia with lower urinary tract symptoms, symptom details unspecified Primary hypertension (CMS/HCC)- Primary Unspecified essential hypertension Type 2 diabetes mellitus without complication, with long-term current use of insulin 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 (CMS/HCC)- Primary Type 2 diabetes mellitus with other specified complication Male erectile dysfunction, unspecified Type 2 diabetes mellitus 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 (CMS/HCC) Acute cough Primary hypertension (CMS/HCC) Unspecified essential hypertension Paroxysmal atrial fibrillation (CMS/HCC) Atrial fibrillation Type 2 diabetes mellitus without complication, with long-term current use of insulin Coronary artery disease 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 artery of chick[place] ind[place] division heart without angina pectoris (CMS/HCC)- Primary Other [...] peripheral vascular disease 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 (CMS/HCC) Riley's [...] (CMS/HCC) Atrial fibrillation Coronary artery disease 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 artery of chick[place] indians[place] division heart without angina pectoris (CMS/HCC) Primary hypertension (CMS/HCC) Unspecified essential hypertension PAD (peripheral artery disease) (CMS/HCC) Unspecified peripheral vascular disease Iron deficiency anemia, unspecified iron deficiency anemia type Mixed hyperlipidemia (CMS/HCC) Mixed hyperlipidemia Primary insomnia Persistent disorder of initiating or maintaining sleep Type 2 diabetes mellitus without complication, with long-term current use of insulin documented in this encounter [facility] HealthcareEvaluation note* Diagnosis Type 2 diabetes mellitus without complication, with long-term current use of insulin- Primary Primary hypertension (CMS/HCC) Unspecified essential hypertension Coronary artery disease 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 artery of chick[place] indians[place] division heart without angina pectoris (CMS/HCC) PAD (peripheral artery disease) (CMS/HCC) Unspecified peripheral vascular disease Iron deficiency anemia, unspecified iron deficiency anemia type Lumbosacral pain Encounter for subsequent annual wellness visit (AWV) in Medicare patient- Primary longterm (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 of insulin (Z79.4) Peripheral vascular disease, unspecified (I73.9) Peripheral vascular disease, unspecified Mixed hyperlipidemia (CMS/HCC) Mixed hyperlipidemia Iron deficiency anemia, unspecified iron deficiency anemia type Type 2 diabetes mellitus without complication, with long-term current use of insulin COPD, moderate (CMS/HCC) Primary hypertension (CMS/HCC) Unspecified essential hypertension Coronary artery disease 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 artery of chick[place] ind[place] division heart without angina pectoris (CMS/HCC) PAD (peripheral artery disease) (CMS/HCC) Unspecified peripheral vascular disease Nonrheumatic mitral valve regurgitation Riley's esophagus with dysplasia Benign prostatic hyperplasia with lower urinary tract symptoms, symptom details unspecified Primary hypertension (CMS/HCC)- Primary Unspecified essential hypertension Type 2 diabetes mellitus without complication, with long-term current use of insulin 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 (CMS/HCC)- Primary Type 2 diabetes mellitus with other specified complication Male erectile dysfunction, unspecified Type 2 diabetes mellitus 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 (CMS/HCC) Acute cough Primary hypertension (CMS/HCC) Unspecified essential hypertension Paroxysmal atrial fibrillation (CMS/HCC) Atrial fibrillation Type 2 diabetes mellitus without complication, with long-term current use of insulin Coronary artery disease 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 artery of chick[place] ind[place] division heart without angina pectoris (CMS/HCC)- Primary Other [...] current use of insulin- Primary Primary hypertension ([facility]/HCC) Unspecified essential hypertension PAD (peripheral artery disease) ([facility]) Unspecified peripheral vascular disease 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 ([facility]) Riley's esophagus with dysplasia Erectile dysfunction due to diseases classified elsewhere Benign prostatic hyperplasia with lower urinary tract symptoms, symptom details unspecified Colon cancer screening Special screening for malignant neoplasms, colon Tubulovillous adenoma of colon Lumbosacral spondylosis without myelopathy Type 2 diabetes mellitus without complication, with long-term current use of insulin- Primary Centrilobular emphysema ([facility]) Type 2 diabetes mellitus with other specified complication Erectile dysfunction due to diseases classified elsewhere Type 2 diabetes mellitus 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 ([facility]) Paroxysmal atrial fibrillation ([facility]) Atrial fibrillation Coronary artery disease 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 artery of chickahominy indians-eastern division heart without angina pectoris ([facility]) Primary hypertension ([facility]) Unspecified essential hypertension PAD (peripheral artery disease) ([facility]) Unspecified peripheral vascular disease Iron deficiency anemia, unspecified iron deficiency anemia type Mixed hyperlipidemia ([facility]) Mixed hyperlipidemia Primary insomnia Persistent disorder of initiating or maintaining sleep Encounter for subsequent annual wellness visit (AWV) in Medicare patient- Primary Centrilobular emphysema ([facility]) Paroxysmal atrial fibrillation ([facility]) Atrial fibrillation Bilateral carotid artery disease, unspecified type ([facility]) Primary hypertension ([facility]) Unspecified essential hypertension Type 2 diabetes mellitus without complication, with long-term current use of insulin Type 2 diabetes mellitus with other specified complication, with long-term current use of insulin Mixed hyperlipidemia ([facility]) Mixed hyperlipidemia Dizziness and giddiness documented in this encounter [facility] HealthcareEvaluation note* Diagnosis Type 2 diabetes mellitus without complication, with long-term current use of insulin (HCC)- Primary Primary hypertension Unspecified essential hypertension Coronary artery disease 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 artery of chick[place] indians[place] division heart without angina pectoris PAD (peripheral artery disease) Unspecified peripheral vascular disease Iron deficiency anemia, unspecified iron deficiency anemia type Lumbosacral pain Encounter for subsequent annual wellness visit (AWV) in Medicare patient- Primary longterm (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 of insulin (Z79.4) Peripheral vascular disease, unspecified (I73.9) Peripheral vascular disease, unspecified Mixed hyperlipidemia Mixed hyperlipidemia Iron deficiency anemia, unspecified iron deficiency anemia type Type 2 diabetes mellitus without complication, with long-term current use of insulin (HCC) COPD, moderate (HCC) Primary hypertension Unspecified essential hypertension Coronary artery disease 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 artery of chick[place] ind[place] division heart without angina pectoris PAD (peripheral artery disease) Unspecified peripheral vascular disease Nonrheumatic mitral valve regurgitation Riley's esophagus with dysplasia Benign prostatic hyperplasia with lower urinary tract symptoms, symptom details unspecified Primary hypertension- Primary Unspecified essential hypertension Type 2 diabetes mellitus without complication, with long-term current use of insulin (HCC) 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- Primary Type 2 diabetes mellitus with other specified complication (HCC) Male erectile dysfunction, unspecified Type 2 diabetes mellitus 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 (HCC) Acute cough Primary hypertension Unspecified essential hypertension Paroxysmal atrial fibrillation (HCC) Atrial fibrillation Type 2 diabetes mellitus without complication, with long-term current use of insulin (HCC) Coronary artery disease 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 artery of chick[place] ind[place] division heart without angina pectoris- Primary Other thrombophilia [...] peripheral vascular disease 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 Riley's esophagus [...] (HCC) Atrial fibrillation Coronary artery disease 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 artery of chick[place] indians-eastern division heart without angina pectoris Primary hypertension Unspecified [...] of insulin (HCC) documented in this encounter [facility] HealthcareEvaluation note* Diagnosis Type 2 diabetes mellitus without complication, with long-term current use of insulin (HCC)- Primary Primary hypertension Unspecified essential hypertension Coronary artery disease 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 artery of chickahom[place] indians-eastern division heart without angina pectoris PAD (peripheral artery disease) Unspecified peripheral vascular disease Iron deficiency anemia, unspecified iron deficiency anemia type Lumbosacral pain Encounter for subsequent annual wellness visit (AWV) 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) Peripheral vascular disease, unspecified (I73.9) Peripheral vascular disease, unspecified Mixed hyperlipidemia Mixed hyperlipidemia Iron deficiency anemia, unspecified iron deficiency anemia type Type 2 diabetes mellitus without complication, with long-term current use of insulin (HCC) COPD, moderate (HCC) Primary hypertension Unspecified essential hypertension Coronary artery disease 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 artery of chick[place] ind[place] division heart without angina pectoris PAD (peripheral artery disease) Unspecified peripheral vascular disease Nonrheumatic mitral valve regurgitation Riley's esophagus with dysplasia Benign prostatic hyperplasia with lower urinary tract symptoms, symptom details unspecified Primary hypertension- Primary Unspecified essential hypertension Type 2 diabetes mellitus without complication, with long-term current use of insulin (HCC) 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- Primary Type 2 diabetes mellitus with other specified complication (HCC) Male erectile dysfunction, unspecified Type 2 diabetes mellitus 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 (HCC) Acute cough Primary hypertension Unspecified essential hypertension Paroxysmal atrial fibrillation (HCC) Atrial fibrillation Type 2 diabetes mellitus without complication, with long-term current use of insulin (HCC) Coronary artery disease 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 artery of chick[place] ind[place] division heart without angina pectoris- Primary Other thrombophilia [...] peripheral vascular disease 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 Riley's esophagus [...] (HCC) Atrial fibrillation Coronary artery disease 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 artery of chick[place] indians-eastern division heart without angina pectoris Primary hypertension Unspecified [...] (HCC) Atrial fibrillation documented in this encounter [facility] HealthcareEvaluation note* Diagnosis Type 2 diabetes mellitus without complication, with long-term current use of insulin (HCC)- Primary Primary hypertension Unspecified essential hypertension Coronary artery disease 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 artery of chickahom[place] indians-eastern division heart without angina pectoris PAD (peripheral artery disease) Unspecified peripheral vascular disease Iron deficiency anemia, unspecified iron deficiency anemia type Lumbosacral pain Encounter for subsequent annual wellness visit (AWV) in Medicare patient- Primary longterm (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 of insulin (Z79.4) Peripheral vascular disease, unspecified (I73.9) Peripheral vascular disease, unspecified Mixed hyperlipidemia Mixed hyperlipidemia Iron deficiency anemia, unspecified iron deficiency anemia type Type 2 diabetes mellitus without complication, with long-term current use of insulin (HCC) COPD, moderate (HCC) Primary hypertension Unspecified essential hypertension Coronary artery disease 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 artery of chick[place] indians[place] division heart without angina pectoris PAD (peripheral artery disease) Unspecified peripheral vascular disease Nonrheumatic mitral valve regurgitation Riley's esophagus with dysplasia Benign prostatic hyperplasia with lower urinary tract symptoms, symptom details unspecified Primary hypertension- Primary Unspecified essential hypertension Type 2 diabetes mellitus without complication, with long-term current use of insulin (HCC) 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- Primary Type 2 diabetes mellitus with other specified complication (HCC) Male erectile dysfunction, unspecified Type 2 diabetes mellitus 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 (HCC) Acute cough Primary hypertension Unspecified essential hypertension Paroxysmal atrial fibrillation (HCC) Atrial fibrillation Type 2 diabetes mellitus without complication, with long-term current use of insulin (HCC) Coronary artery disease 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 artery of chick[place] ind[place] division heart without angina pectoris- Primary Other thrombophilia [...] peripheral vascular disease 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 Riley's esophagus [...] (HCC) Atrial fibrillation Coronary artery disease 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 artery of chickah[place] indians-eastern division heart without angina pectoris Primary hypertension Unspecified [...] available for this section [facility] Discharge instructions No data available for this section [facility] InstructionsNot on filedocumented in this encounter [facility] filed[facility]Not on filedocumented in this encounter [facility]ructionsNot on filedocumented in this encounter [facility]ructionsNot on filedocumented in this encounter [facility] SystemInstructionsNot on filedocumented in this encounter [facility] SystemProgress note No data available for this section [facility] Reason for referral (narrative)No reason for referral information available[facility] Phone: Reason for visit Narrative* Consultation (Routine) - Pending Review Specialty Diagnoses / Procedures Referred By Contac t Referred To Contact Cardiac Rehabilitation Diagnoses Stented coronary artery Procedures Ambulatory referral to Cardiac Rehabilitation (Non-[facility]) Natasha Campo MD [address] [place] [address] Phone: tel: fax: [facility] [address] [place] [address] Phone: tel:[phone] fax:[phone] Referral ID Status Reason Start Date Expiration Date Visits Requested Visits Authorized [id number] Pending Review Specialty Services Required 12/06/2023 12/05/2024 36 36 [facility] SystemReason for visit Narrative* Consultation (Routine) - Closed Specialty Diagnoses / Procedures Referred By Contac t Referred To Contact Cardiac Rehabilitation Diagnoses Stented coronary artery Procedures Ambulatory referral to Cardiac Rehabilitation ([facility]) Natasha Campo MD [address] [facility] [address] [place] [address] Phone: tel: fax: [facility] [address] [place] [address] Phone: tel:[phone] fax:[phone] Referral ID Status Reason Start Date Expiration Date V isits Requested Visits Authorized [id number] Closed Specialty Services Required 12/06/2023 12/05/2024 36 36 [facility] SystemReason for visit Narrative* Consultation (Routine) - Authorized Specialty Diagnoses / Procedures Referred By Contac t Referred To Contact Cardiac Rehabilitation Diagnoses Stented coronary artery Procedures Ambulatory referral to Cardiac Rehabilitation ([facility]) Natasha Campo MD [address] [facility] [address] [place] [address] [facility] [address] [place] [address] Referral ID Status Reason Start Date Expiration Date Visits Requested Visits Authorized [id number] Authorized Specialty Services Required 12/06/2023 12/05/2024 36 [facility] Consultation (Routine) - Authorized Specialty Diagnoses / Procedures Referred By Contac t Referred To Contact Cardiac Rehabilitation Diagnoses Stented coronary artery Procedures Ambulatory referral to Cardiac Rehabilitation ([facility]) Natasha Campo MD [address] [facility] [address] [place] [address] Phone: tel: fax: [facility] [address] [place] [address] Phone: tel:[phone] fax:[phone] Referral ID Status Reason Start Date Expiration Date Visits Requested Visits Authorized [id number] Authorized Specialty Services Required 12/06/2023 12/05/2024 36 36 [facility] Summary Purpose Family History No Family [...] FoundNo Family History Records Found Advance Directives Advance Directive Response Recorded Date/ Time Advance Directives No November 24, 2023 10:10am Advance Directive Response Recorded Date/ Time Advance Directives No November 24, 2023 11:10am Chief Complaint and Reason for Visit Chief Complaint Admit Date hospital follow up December 05, 2024 10:52am 1M January 03, 2025 9: 28am Reason for Visit Admit Date Atrial fibrillation December 05, 2024 10:52am Essential hypertension December 05 10:52am [facility] (iron deficiency anemia) November 262024 10:52am Lumbar spondylosis December 05, 2024 10:52am Dizziness and giddiness January 02 11:05am Multilevel degenerative disc disease Oct kathe 2024 11:05am Atrial fibrillation January 03, 2025 9: 28am Dizziness and giddiness January 03 9:28am Essential hypertension January 03, 2025 9:28am [place] (iron deficiency anemia) December 9:28am Lumbar spondylosis January 03, 2025 9: 28am Chief Complaint Admit Date hospital follow up December 05, 2024 10:52am Reason for Visit Admit Date Atrial fibrillation December 05, 2024 10:52am Essential hypertension December 05 10:52am [place] (iron deficiency anemia) November 262024 10:52am Lumbar spondylosis December 05, 2024 10:52am Dizziness and giddiness January 02 11:05am Multilevel degenerative disc disease Oct kathe 2024 11:05am Chief Complaint Admit Date hospital follow up [...] and content) DATE CREATED AUTHOR 03/08/2021 [facility] DATE CREATED AUTHOR AUTHOR'S ORGANIZ ATION 06/20/2022 [facility] DATE CREATED AUTHOR AUTHOR'S ORGANIZ ATION 04/10/2024 [facility] DATE CREATED AUTHOR AUTHOR'S ORGANIZ ATION 04/15/2024 [facility] DATE CREATED AUTHOR AUTHOR'S ORGANIZ ATION 07/14/2024 [facility] DATE CREATED AUTHOR AUTHOR'S ORGANIZ ATION 07/19/2024 [facility] DATE CREATED AUTHOR AUTHOR'S ORGANIZ ATION 07/22/2024 [facility] DATE CREATED AUTHOR AUTHOR'S ORGANIZ ATION 07/23/2024 [facility] DATE CREATED AUTHOR AUTHOR'S ORGANIZ ATION 09/28/2024 [facility] DATE CREATED AUTHOR AUTHOR'S ORGANIZ ATION 11/28/2024 [facility] DATE CREATED AUTHOR AUTHOR'S ORGANIZ ATION 12/07/2024 [facility] DATE CREATED AUTHOR AUTHOR'S ORGANIZ ATION 12/31/2024 [facility] Patient Care team informatio n (unrecognized section and content) Team Status: Active Member Role Status Dates SHANE Hernandez Primary Care Provider Active Team Status: Active Member Role Status Dates Clem Daniels DO Attending Provider Active Sta rt: November 27, 2024 Team Status: Active Member Role Status Dates Lj Carbajal DO Attending Provider Active St art: November 28, 2024 Team Status: Inactive Member Role Status Dates SHANE Hernandez Primary Care Provider Active Start: December 05, 2024 End: December 05, 2024 SHANE Hernandez Attending Provider Active Start: December 05, 2024 End: December 05, 2024 Team Status: Active Member Role Status Dates SHANE Hernandez Primary Care Provider Active Start: December 25, 2024 Zoey Marx PA-C Attending Provider Active Start: December 25, 2024 Team Status: Inactive Member Role Status Dates Jackson Mcfarland DO Attending Provider Active Start: January 02, 2025 End: January 02, 2025 SHANE Hernandez Primary Care Provider Active Start: January 02, 2025 End: January 02, 2025 [employer] Relationship Specialty Start Date End Date Prabhjot Villatoro MD [address] [place] [address] PCP - General Family Medicine 04/06/23 Marisol Boyce NP [address] [place] [address] Nurse Practitioner Family Medicine 03/28/22 [employer] Relationship Specialty Start Date End Date Prabhjot Villatoro MD [address] [place] [address] PCP - General Family Medicine 04/06/23 Marisol Boyce NP [address] [place] [address] Nurse Practitioner Family Medicine 03/28/22 [employer] Relationship Specialty Start Date End Date Prabhjot Villatoro MD [address] [place] [address] PCP - General Family Medicine 06/07/23 Marisol Boyce NP [address] [place] [address] Nurse Practitioner Family Medicine 03/28/22 Marsiol Boyce NP [address] [place] [address] Nurse Practitioner Family Medicine 06/07/23 [employer] Relationship Specialty Start Date End Date Prabhjot Villatoro MD [address] [place] [address] PCP - General Family Medicine 06/07/23 Marisol Boyce NP [address] [place] [address] Nurse Practitioner Family Medicine 03/28/22 Marisol Boyce NP [address] [place] [address] Nurse Practitioner Family Medicine 06/07/23 [employer] Relationship Specialty Start Date End Date Prabhjot Villatoro MD [address] [place] [address] PCP - General Family Medicine 06/07/23 Marisol Boyce NP [address] [place] [address] Nurse Practitioner Family Medicine 03/28/22 Marisol Boyce NP [address] [place] [address] Nurse Practitioner Family Medicine 06/07/23 [employer] Relationship Specialty Start Date End Date Prabhjot Villatoro MD [address] [place] [address] PCP - General Family Medicine 06/07/23 Marisol Boyce NP [address] [place] [address] Nurse Practitioner Family Medicine 03/28/22 Marisol Boyce NP [address] [place] [address] Nurse Practitioner Family Medicine 06/07/23 [employer] Relationship Specialty Start Date End Date Prabhjot Villatoro MD [address] [place] [address] PCP - General Family Medicine 06/07/23 Marisol Boyce NP [address] [place] [address] Nurse Practitioner Family Medicine 03/28/22 Marisol Boyce NP [address] [place] [address] Nurse Practitioner Family Medicine 06/07/23 [employer] Relationship Specialty Start Date End Date Prabhjot Villatoro MD [address] [place] [address] PCP - General Family Medicine 06/07/23 Marisol Boyce NP [address] [place] [address] Nurse Practitioner Family Medicine 03/28/22 Marisol Boyce NP [address] [place] [address] Nurse Practitioner Family Medicine 06/07/23 [employer] Relationship Specialty Start Date End Date Prabhjot Villatoro MD [address] [place] [address] PCP - General Family Medicine 06/07/23 Marisol Boyce NP [address] [place] [address] Nurse Practitioner Family Medicine 03/28/22 Marisol Boyce NP [address] [place] [address] Nurse Practitioner Family Medicine 06/07/23 [employer] Relationship Specialty Start Date End Date Prabhjot Villatoro MD [address] [place] [address] PCP - General Family Medicine 06/07/23 Marisol Boyce NP [address] [place] [address] Nurse Practitioner Family Medicine 03/28/22 Marisol Boyce NP [address] [place] [address] Nurse Practitioner Family Medicine 06/07/23 [employer] Relationship Specialty Start Date End Date Prabhjot Villatoro MD [address] [place] [address] PCP - General Family Medicine 06/07/23 Marisol Boyce NP [address] [place] [address] Nurse Practitioner Family Medicine 03/28/22 Marisol Boyce NP [address] [place] [address] Nurse Practitioner Family Medicine 06/07/23 [employer] Relationship Specialty Start Date End Date Prabhjot Villatoro MD [address] [place] [address] PCP - General Family Medicine 06/07/23 Marisol Boyce NP [address] [place] [address] Nurse Practitioner Family Medicine 03/28/22 Marisol Boyce NP [address] [place] [address] Nurse Practitioner Family Medicine 06/07/23 [employer] Relationship Specialty Start Date End Date Marisol Boyce APRN-[employer] PCP - General Nurse Practitioner 10/16/18 [employer] Relationship Specialty Start Date End Date Marisol Boyce APRN-[employer] PCP - General Nurse Practitioner 10/16/18 [employer] Relationship Specialty Start Date End Date Prabhjot Villatoro MD [address] [place] [address] PCP - General Family Medicine 06/07/23 Marisol Boyce NP [address] [place] [address] Nurse Practitioner Family Medicine 03/28/22 Marisol Boyce NP [address] [place] [address] Nurse Practitioner Family Medicine 06/07/23 [employer] Relationship Specialty Start Date End Date Marisol Boyce APRN-[employer] PCP - General Nurse Practitioner 10/16/18 [employer] Relationship Specialty Start Date End Date Prabhjot Villatoro MD [address] [place] [address] PCP - General Family Medicine 06/07/23 Marisol Boyce NP [address] [place] [address] Nurse Practitioner Family Medicine 03/28/22 Marisol Boyce NP [address] [place] [address] Nurse Practitioner Family Medicine 06/07/23 Team Status: Inactive Member Role Status Dates Sabino Mauricio DO Attending Provider Active Start: April 11, 2024 End: April 11, 2024 [employer] Relationship Specialty Start Date End Date Marisol Boyce, [employer] PCP - General Nurse Practitioner 10/16/18 [employer] Relationship Specialty Start Date End Date Marisol Boyce [employer] PCP - General Nurse Practitioner 10/16/18 [employer] Relationship Specialty Start Date End Date Marisol Boyce, [employer] PCP - General Nurse Practitioner 10/16/18 [employer] Relationship Specialty Start Date End Date Marisol Boyce [employer] PCP - General Nurse Practitioner 10/16/18 [employer] Relationship Specialty Start Date End Date Leah Boycea J, [facility] PCP - General Nurse Practitioner 10/16/18 [employer] Relationship Specialty Start Date End Date MedardosanchezMarisol post [facility] PCP - General Nurse Practitioner 10/16/18 [employer] Relationship Specialty Start Date End Date MedardosanchezMarisol post, [facility] PCP - General Nurse Practitioner 10/16/18 [employer] Relationship Specialty Start Date End Date MedardosanchezMarisol post [facility] PCP - General Nurse Practitioner 10/16/18 [employer] Relationship Specialty Start Date End Date MedardosanchezMarisol post, [facility] PCP - General Nurse Practitioner 10/16/18 [employer] Relationship Specialty Start Date End Date Marisol Boyce, [facility] PCP - General Nurse Practitioner 10/16/18 [employer] Relationship Specialty Start Date End Date Prabhjot Villatoro MD [address] [place] [address] PCP - General Family Medicine 06/07/23 Marisol Boyce NP [address] [place] [address] PCP - ACO Reach 05/04/24 Marisol Boyce NP [address] [place] [address] Nurse Practitioner Family Medicine 03/28/22 Marisol Boyce NP [address] [place] [address] Nurse Practitioner Family Medicine 06/07/23 [employer] Relationship Specialty Start Date End Date Marisol Boyce [facility] PCP - General Nurse Practitioner 10/16/18 [employer] Relationship Specialty Start Date End Date Marisol Boyce [facility] PCP - General Nurse Practitioner 10/16/18 [employer] Relationship Specialty Start Date End Date Marisol Boyce [facility] PCP - General Nurse Practitioner 10/16/18 [employer] Relationship Specialty Start Date End Date Marisol Boyce [facility] PCP - General Nurse Practitioner 10/16/18 [employer] Relationship Specialty Start Date End Date Marisol Boyce [facility] PCP - General Nurse Practitioner 10/16/18 [employer] Relationship Specialty Start Date End Date Marisol Boyce [facility] PCP - General Nurse Practitioner 10/16/18 [employer] Relationship Specialty Start Date End Date Marisol Boyce [facility] PCP - General Nurse Practitioner 10/16/18 [employer] Relationship Specialty Start Date End Date Marisol Boyce [employer]RO[employer]ER[employer] PCP - General Nurse Practitioner 10/16/18 [employer] Relationship Specialty Start Date End Date Prabhjot Villatoro MD [address] [place] [address] PCP - General Family Medicine 06/07/23 Marisol Boyce NP [address] [place] [address] PCP - ACO Reach 05/04/24 Marisol Boyce NP [address] [place] [address] Nurse Practitioner Family Medicine 03/28/22 Marisol Boyce NP [address] [place] [address] Nurse Practitioner Family Medicine 06/07/23 [employer] Relationship Specialty Start Date End Date Prabhjot Villatoro MD [address] [place] [address] PCP - General Family Medicine 06/07/23 Marisol Boyce NP [address] [place] [address] PCP - ACO Reach 05/04/24 Marisol Boyce NP [address] [place] [address] Nurse Practitioner Family Medicine 03/28/22 Marisol Boyce NP [address] [place] [address] Nurse Practitioner Family Medicine 06/07/23 [employer] Relationship Specialty Start Date End Date Prabhjot Villatoro MD [address] [place] [address] PCP - General Family Medicine 06/07/23 Marisol Boyce NP [address] [place] [address] PCP - ACO Reach 05/04/24 Marisol Boyce NP [address] [place] [address] Nurse Practitioner Family Medicine 03/28/22 Marisol Boyce NP [address] [place] [address] Nurse Practitioner Family Medicine 06/07/23 [employer] Relationship Specialty Start Date End Date Prabhjot Villatoro MD [address] [place] [address] PCP - General Family Medicine 06/07/23 Marisol Boyce NP [address] [place] [address] PCP - ACO Reach 05/04/24 Marisol Boyce NP [address] [place] [address] Nurse Practitioner Family Medicine 03/28/22 Marisol Boyce NP [address] [place] [address] Nurse Practitioner Family Medicine 06/07/23 [employer] Relationship Specialty Start Date End Date Prabhjot Villatoro MD [address] [place] [address] PCP - General Family Medicine 06/07/23 Marisol Boyce NP [address] [place] [address] PCP - ACO Reach 05/04/24 Marisol Boyce NP [address] [place] [address] Nurse Practitioner Family Medicine 03/28/22 Marisol Boyce NP [address] [place] [address] Nurse Practitioner Family Medicine 06/07/23 [employer] Relationship Specialty Start Date End Date Prabhjot Villatoro MD [address] [place] [address] PCP - General Family Medicine 06/07/23 Marisol Boyce NP [address] [place] [address] PCP - ACO Reach 05/04/24 Marisol Boyce NP [address] [place] [address] Nurse Practitioner Family Medicine 03/28/22 Marisol Boyce NP [address] [place] [address] Nurse Practitioner Family Medicine 06/07/23 [employer] Relationship Specialty Start Date End Date Prabhjot Villatoro MD [address] [place] [address] PCP - General Family Medicine 06/07/23 Marisol Boyce NP [address] [place] [address] PCP - ACO Reach 05/04/24 Marisol Boyce NP [address] [place] [address] Nurse Practitioner Family Medicine 03/28/22 Marisol Boyce NP [address] [place] [address] Nurse Practitioner Family Medicine 06/07/23 [employer] Relationship Specialty Start Date End Date Prabhjot Villatoro MD [address] [place] [address] PCP - General Family Medicine 06/07/23 Marisol Boyce NP [address] [place] [address] PCP - ACO Reach 05/04/24 Marisol Boyce NP [address] [place] [address] Nurse Practitioner Family Medicine 03/28/22 Marisol Boyce NP [address] [place] [address] Nurse Practitioner Family Medicine 06/07/23 [employer] Relationship Specialty Start Date End Date Prabhjot Villatoro MD [address] [place] [address] PCP - General Family Medicine 06/07/23 Marisol Boyce NP [address] [place] [address] PCP - ACO Reach 05/04/24 Marisol Boyce NP [address] [place] [address] Nurse Practitioner Family Medicine 03/28/22 Marisol Boyce NP [address] [place] [address] Nurse Practitioner Family Medicine 06/07/23 [employer] Relationship Specialty Start Date End Date Prabhjot Villatoro MD [address] [place] [address] PCP - General Family Medicine 06/07/23 Marisol Boyce NP [address] [place] [address] PCP - ACO Reach 05/04/24 Marisol Boyce NP [address] [place] [address] Nurse Practitioner Family Medicine 03/28/22 Marisol Boyce NP [address] [place] [address] Nurse Practitioner Family Medicine 06/07/23 [employer]person [employer] Relationship Specialty Start Date End Date Prabhjot Villatoro MD [address] [place] [address] PCP - General Family Medicine 06/07/23 Marisol Boyce NP [address] [place] [address] PCP - ACO Reach 05/04/24 Marisol Boyce NP [address] [place] [address] Nurse Practitioner Family Medicine 03/28/22 Marisol Boyce NP [address] [place] [address] Nurse Practitioner Family Medicine 06/07/23 [employer] Relationship Specialty Start Date End Date Prabhjot Villatoro MD [address] [place] [address] PCP - General Family Medicine 06/07/23 Marisol Boyce NP [address] [place] [address] PCP - ACO Reach 05/04/24 Marisol Boyce NP [address] [place] [address] Nurse Practitioner Family Medicine 03/28/22 Marisol Boyce NP [address] [place] [address] Nurse Practitioner Family Medicine 06/07/23 Team Status: Active Member Role Status Dates Marisol Boyce Family Provider Active Marisol Boyce Primary Care Provider Active Team Status: Inactive Member Role Status Dates Marisol Boyce Primary Care Provider Active Sta rt: December 05, 2024 End: December 05, 2024 Marisol Boyce Attending Provider Active Start: December 05, 2024 End: December 05, 2024 Team Status: Inactive Member Role Status Dates SHANE Hernandez Primary Care Provider Active Start: January 03, 2025 End: January 03, 2025 SHANE Hernandez Attending Provider Active Start: January 03, 2025 End: January 03, 2025 Reason for Visit (unrecogniz ed section and content) Reason Comments Med Refill Reason Comments Follow-up Update H&P, EGD/[place] [facility] scheduled 04/11/24 at [facility] Reason Comments Colon Cancer Screening DUE FOR 5 YEAR RE CALL, LAST COLON 10-26-18 Specialty Diagnoses / Procedures Referred By Kendra t Referred To Contact General Surgery Diagnoses Colon cancer screening Tubulovillous adenoma of colon Procedures [place] OFFICE OUTPATIENT VISIT 60-74 MINS HIGH MDM [id number] (SNOMED CT) - AMB REFERRAL TO GENERAL SURGERY Marisol Boyce, [employer]PATCHER-[employer] [address] [place] [address] Phone: tel: fax: Sabino Mauricio DO [address] [place] [address] Phone: tel: fax: Referral ID Status Reason Start Date Expiration Date Visits Re quested Visits Authorized [id number] Closed 02/15/2024 08/13/2024 1 1 Reason Comments [...] BE BASED ON THE PRIMARY CLINICAL RECORDS. [employer]. provides no warranty or guarantee of the accuracy or completeness of information in this document.
== END 2024-11-28 13:38 | disposition home or self-care (01) | DRG 812 ==
LOC: ER 13:09 → MS 11-28 10:04
PROVIDERS: Admitting Provider Internal Medicine; Emergency Provider Student in an Organized Health Care Education/Training Program; PCP Nurse Practitioner; Visit Provider Internal Medicine
DX: D64.9 Anemia, unspecified (principal); I48.20 Chronic atrial fibrillation, unspecified; E44.0 Moderate protein-calorie malnutrition; J44.9 Chronic obstructive pulmonary disease, unspecified; I11.0 Hypertensive heart disease with heart failure; I25.10 Atherosclerotic heart disease of native coronary artery without angina pectoris; I50.9 Heart failure, unspecified; Z79.01 Long term (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 of anticoagulants; R06.02 Shortness of breath; R07.89 Other chest pain; I05.9 Rheumatic mitral valve disease, unspecified; D50.9 Iron deficiency anemia, unspecified; D63.8 Anemia in other chronic diseases classified elsewhere; R74.01 Elevation of levels of liver transaminase levels; E11.65 Type 2 diabetes mellitus with hyperglycemia; F17.200 Nicotine dependence, unspecified, uncomplicated; Z79.4 Long term (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 of insulin; Z79.82 Long term (current) use of aspirin; Z68.23 Body mass index [BMI] 23.0-23.9, adult; E11.51 Type 2 diabetes mellitus 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; Z86.16 Personal history of COVID-19; E78.00 Pure hypercholesterolemia, unspecified; I25.2 Old myocardial infarction; Z86.0100 Personal history of colon polyps, unspecified; Z90.49 Acquired absence of other specified parts of digestive tract; Z95.9 Presence of cardiac and vascular implant and graft, unspecified; Z79.84 Long term (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 of oral hypoglycemic drugs
CPT/HCPCS: 36415; 36430; 71046; 80053; 80061; 80074; 81001; 82607; 82746; 83540; 83550; 83735; 83880; 84100; 84466; 84484; 85014; 85018; 85025; 85045; 86850; 86900; 86901; 86923; 93005; 99285; G0328; P9016

== ENCOUNTER 2024-12-17 10:53 | Outpatient (RCR) | payer MEDICARE, OTHER, SELFPAY ==
[2024-12-10 10:50] VITALS: BP 143/57; PULSE 64; TEMP 36.3; O2SAT 97
[2024-12-10] MEDS: FERRIC CARBOXYMALTOSE 750 MG in 0.9 % SODIUM CHLORIDE 250 ML 795 MG IV (11:06)
[2024-12-17 10:56] VITALS: BP 154/62; PULSE 60; TEMP 36.3; O2SAT 97
[2024-12-17] MEDS: FERRIC CARBOXYMALTOSE 750 MG in 0.9 % SODIUM CHLORIDE 250 ML 795 MG IV (11:05)
== END 2024-12-25 23:59 | disposition home or self-care (01) ==
LOC: INF 10:53
PROVIDERS: PCP Nurse Practitioner; Visit Provider Nurse Practitioner
DX: D50.9 Iron deficiency anemia, unspecified (principal)
CPT/HCPCS: 96365; J1439

== ENCOUNTER 2024-12-20 13:16 | Outpatient (OUT) | payer MEDICARE, OTHER, SELFPAY ==
--- OUTSIDE RECORDS SUMMARY | 2024-12-20 13:18 | XMS_ITS | Clinical Summary ---
Author Organization [facility] Address [address] [place] [address] Care Team Providers Care Hand Flatwork Finisher Name Role Phone Marisol Boyce PLANT TAXONOMY TEACHER Unavailable [phone] rPabhjot Roman MD Primary Care Provider [phone] Marisol Boyce PLANT TAXONOMY TEACHER Unavailable [phone] Marisol Boyce NP Unavailable [phone] Allergies No known active allergies Medications [...] from sitting to standing [employer]atics in office: Prast932/60 Sittin/56 Standin/54 I will reach out to [...] Chronic thoracic back pain 01/04/2024 Other thrombophilia ([facility]) 11/22/2023 Assessment & Plan (11/22/2023 [...] manages your CORNELIA: Encounter for subsequent [facility] wellness visit (AWV) in Medicare patient 06/07/2023 [...] meds: lisinopril, carvedilol Clarification with Erich at [facility] , lisinopril dose is 20mg daily, should not be filling lisinopril 5mg dose Also contacted the [facility]'s pharmacy to have them deactivate the [...] his amlodipine, I did call Joan at [facility] cardiology and she will verify Assessment & [...] Reviewed his A1c 8.5% Dexcom 7 sample environmental compliance manager and sensor given: Lot [id number] 10/25/22, sensors #2: [id number] exp 07/25/24 Currently taking 20 units of [...] simple sugars. Coronary artery disease invo lving [place] coronary artery of [place] heart without angina pectoris 03/02/2023 Overview (03/02/2023): [...] artery disease of n ative artery of [place] heart with stable angina pectoris 04/30/2022 Overview [...] (06/07/2023): Added automatically from request for surgery [id number] Added automatically from request for surgery [id number] Resolved Problems Problem Noted Date Diagnosed Date Resolved Date Cough 10/11/2023 10/11/2023 Overview (10/11/2023): Common respiratory bacterial/viral infection (HTRX) Specimen swab (nasal) [id number] Lot # [id number] EXP. 11/17/2023 Tobacco user 06/07/2023 06/07/2023 Encounters Date Type Department Care Team Description 10/24/2024 Refill [facility] [place] [facility] [address] [place] [address] Marisol Boyce NP Mixed hyperlipidemia (Primary Dx) 10/03/2024 Refill [facility] [place] [facility] [address] [place] [address] Marisol Boyce NP PAD (peripheral artery disease) (Primary Dx); Paroxysmal atrial fibrillation (HCC) 09/26/2024 9:00 AM EDT Office Visit [facility] [place] [facility] [address] [place] [address] Marisol Boyce NP Dizziness and giddiness (Primary Dx); Pulmonary hypertension, unspecified (HCC); Primary hypertension ; Palmer's esophagus with dysplasia; Type 2 diabetes mellitus without complication, with long-term current use of insulin (HCC) 09/26/2024 Telephone [facility] [address] [place] [phone] Marisol Boyce NP 09/26/2024 Bamboo flowsheet [facility] [address] [place] [address] Marisol Boyce NP from Last 3 Months [...] How often do you attend chur or gnosticist services? More than 4 times per year 06/07/2023 Do you belong to any clubs o r organizations such as uatsdin groups, unions, fraternal or athletic groups, or [...] Recorded Patient Health Questionnaire-2 Score 0 08/15/2024 [facility] of Occupat ional Health - Occupational Stress [...] place to sleep or slept in a senior living (including now)? No 06/07/2023 Sex and Gender [...] Weight 76.1 kg (167 lb 12.8 oz) 025 8:53 AM EDT Height 182.9 cm (6') [...] Procedure Name Priority Date/Time Associated Diagnosis Comments [facility] HGBA1C Routine 07/11/2024 1:55 PM EDT MICROALBUMIN / CREATININE URINE RATIO Routine 05/04/2023 8:58 AM EST from Last 3 Months or Most Recently Relevant to Health Maintenance Results * (ABNORMAL) [facility] HGBA1C (07/11/2024 1:55 PM EDT) [facility] HEMOGLOBIN A1C/HEMOGLOBIN. TOTAL:MFR:PT:BL D:QN: 6.3(H) <=5.9 % [facility] Blood 07/11/2024 1:55 PM EDT 07/11/2024 5:55 PM EDT Narrative [facility] - 07/11/2024 9:48 PM EDT Original Ordering Provider: ELO BYOCE Marisol Boyce PLANT TAXONOMY TEACHER [facility] Final Result [facility] * Microalbumin / creatinine urine ratio (05/04/2023 8:58 AM EST) MICROALBUMIN, URINE <0.7 0.0 - 1.9 mg/dL [facility] URINE CREAT 108.56 mg/dL [facility] ALB/CREAT RATIO NOT CALCULATED 0.0 - 30.0 mg/g creat [facility] Comment: Result for Albumin/Creatinine Ratio cannot be reliably calculated because urine albumin and or urine creatinine is below the detection limit of the assay. PERFORMED AT [facility] [address],[place] [address] 05/04/2023 8:58 AM EST 05/04/2023 9:00 AM EST us Marisol Boyce PLANT TAXONOMY TEACHER LAB URINE ORDERABLES Final Resu lt [facility] from Last 3 Months or Most Recently Relevant to Health Maintenance Insurance [employer] Care Teams Hand Flatwork Finisher Relationship Specialty Start Date End Date Prabhjot Roman MD PCP - General Family Medicine 06/07/23 Marisol Boyce NP [address] [place] [address] PCP - ACO Reach 05/04/24 Marisol Boyce NP Nurse Practitioner Family Medicine 03/28/22 Marisol Boyce NP Nurse Practitioner Family Medicine 06/07/23
--- OUTSIDE RECORDS SUMMARY | 2024-12-20 13:19 | XMS_ITS | Encounter Summary ---
Author Organization [facility] Address [id number] [address] [place] [address] Care Team Providers Care Erp Programmer Name Role Phone Marisol Boyce APRN-TACK CLEANER Primary Care Provider Reason for Visit * Reason Comments Med Refill Encounter Details Date Type Department Care Team (Late st Contact Info) Description 06/18/2024 Refill [facility] General Surgery [address] [place] [phone] Sabino Mauricio DO [address] [place] [address] Social History Tobacco Use Types Packs/Day Years [...] on filedocumented in this encounter Care Teams Erp Programmer Relationship Specialty Start Date End Date Marisol Boyce APRN-TACK CLEANER PCP - General Nurse Practitioner 10/16/18 documented as of this encounter
--- OUTSIDE RECORDS SUMMARY | 2024-12-20 13:19 | XMS_ITS | Clinical Summary ---
Author Organization [facility] tem Address [id number] [address] [place] [address] Care Team Providers Care Communicable Disease Specialist Name Role Phone Marisol Boyce APRN-GAS OR PETROLEUM OPERATOR Primary Care Provider Allergies No known active [...] (01/07/2022): Added automatically from request for surgery [id number] Lumbosacral spondylosis without myelopathy 09/19 Overview (09/20/2019): Added automatically from request for surgery [id number] Disc displacement, lumbar 06/07/2019 Overview (06/07/2019): Added automatically from request for surgery [id number] Osteoarthritis of left hip 04/05/2019 Overview (04/05/2019): Added automatically from request for surgery [id number] Iliac crest bone pain 01/10/2019 Lumbar neuritis 01/10/2019 Trochanteric bursitis of left hip 11/29/2018 Disorder of sacrum 10/16/2018 Overview (10/16/2018): Added automatically from request for surgery [id number] Encounters Date Type Department Care Team Description 12/05/2024 Travel from Last 3 Months Family History Medical History Relation Name Comments [...] history exists Influenza Vaccine 11/26/2024 02/09/2024, , 01/31/2023, Additional history exists Tobacco Screening 04/04/2025 04/04/2024 Colonoscopy 04/11/2029 04/11/2024, 0803/2018, 10/26/2018, Additional history exists Medical Devices Not on file Procedures Procedure Name Priority Date/Time Associated Diagnosis Comments TRANSFERRIN Routine 12/05/2024 1:09 PM EDT Back pain Fatigue [place]STLEY (iron deficiency anemia) IRON Routine 12/05/2024 1:09 PM EDT Back pain Fatigue [place]ST[place] (iron deficiency anemia) FERRITIN Routine 12/05/2024 1:09 PM EDT Back pain Fatigue [place]ST[place] (iron deficiency anemia) C-REACTIVE PROTEIN Routine 12/05/2024 1: 09 PM EDT Back pain Fatigue [place]STLEY (iron deficiency anemia) ERYTHROCYTE SEDIMENTATION RATE (ESR) Routine 12/05/2024 1:09 PM EDT Back pain Fatigue WESTLEY (iron deficiency anemia) CBC WITH AUTO DIFFERENTIAL Routine 12/05/2024 1:09 PM EDT Back pain Fatigue WESTLEY (iron deficiency anemia) COMPREHENSIVE METABOLIC PANEL Routine 12/05/2024 1:09 PM EDT Back pain Fatigue WESTLEY (iron deficiency anemia) COLONOSCOPY Routine 04/11/2024 Encounter for colonoscopy due to history of colonic polyp from Last 3 Months or Most Recently Relevant to Health Maintenance Results * Erythrocyte Sedimentation Rate (ESR) (12/05/2024 1:09 PM EDT) ESR, Erythrocyte Sedimentation Rate 2 0 - 20 mm/h 12/05/2024 6:12 PM EDT [facility] Blood Venous blood / Unknown Venipuncture / Unknown 12/05/2024 1:09 PM EDT 12/05/2024 1:10 PM EDT us Marisol Boyce TANK WELDER-GAS OR PETROLEUM OPERATOR LAB BLOOD ORDERABLES Fi nal Result [facility] [address] [place] [address], * (ABNORMAL) CBC auto differential (12/05/2024 1:09 PM EDT) WBC 5.7 4 - 11 x10E9/L 12/05/2024 7:24 PM EDT [facility] RBC Count 3.11(L) 4.1 - 5.7 X10E12/L 12/05/2024 7:24 PM EDT [facility] Hemoglobin 8.4(L) 13 - 17 g/dL 12/05/2024 7:24 PM EDT [facility] Hematocrit 26.4(L) 39 - 50 % 12/05/2024 7:24 PM EDT [facility] MCV 85 80 - 100 fL 12/05/2024 7:24 PM EDT [facility] MCH 26.9(L) 27 - 34 pg 12/05/2024 7:24 PM EDT [facility] MCHC 31.6(L) 32 - 36 g/dL 12/05/2024 7:24 PM EDT [facility] RDW 22.4(H) 11.5 - 15 % 12/05/2024 7:24 PM EDT [facility] Platelet Count 177 150 - 450 X10E9/L 12/05/2024 7:24 PM EDT [facility] MPV 8.4 7 - 12 fL 12/05/2024 7:24 PM EDT [facility] Neutrophils % 65.7 % 12/05/2024 7:24 PM EDT [facility] Comment:This is an appended report. These results have been appended to a previously preliminary verified report. Lymphocytes % 22.3 % 12/05/2024 7:24 PM EDT [facility] Comment:This is an appended report. These results have been appended to a previously preliminary verified report. Monocytes % 7.3 % 12/05/2024 7:24 PM EDT [facility] Comment:This is an appended report. These results have been appended to a previously preliminary verified report. Eosinophils % 3.4 % 12/05/2024 7:24 PM T [facility] Comment:This is an appended report. These results have been appended to a previously preliminary verified report. Basophils % 1.3 % 12/05/2024 7:24 PM T [facility] Comment:This is an appended report. These results have been appended to a previously preliminary verified report. Neutrophils Absolute (A) 3.7 1.5 - 6.6 10*3/uL 12/05/2024 7:24 PM [facility] Comment:This is an appended report. These results have been appended to a previously preliminary verified report. Lymphocytes Absolute 1.3 1.0 - 3.5 10*3/uL 12/05/2024 7:24 PM [facility] Comment:This is an appended report. These results have been appended to a previously preliminary verified report. Monocytes Absolute 0.4 0.0 - 0.9 10*3/uL 12/05/2024 7:24 PM [facility] Comment:This is an appended report. These results have been appended to a previously preliminary verified report. Eosinophils Absolute 0.2 0.0 - 0.4 10*3/uL 12/05/2024 7:24 PM [facility] Comment:This is an appended report. These results have been appended to a previously preliminary verified report. Basophils Absolute 0.1 0.0 - 0.2 10*3/uL 12/05/2024 7:24 PM T [facility] Comment:This is an appended report. These results have been appended to a previously preliminary verified report. Anisocytosis 2+ 12/05/2024 7:24 PM [facility] Comment:This is an appended report. These results have been appended to a previously preliminary verified report. Polychromasia 1+ 12/05/2024 7:24 PM T [facility] Comment:This is an appended report. These results have been appended to a previously preliminary verified report. Omid Cells 1+ 12/05/2024 7:24 PM EDT [facility] Comment:This is an appended report. These results have been appended to a previously preliminary verified report. RBC Fragments 1+ 12/05/2024 7:24 PM EDT [facility] Comment:This is an appended report. These results have been appended to a previously preliminary verified report. Elliptocytes 1+ 12/05/2024 7:24 PM EDT [facility] Comment:This is an appended report. These results have been appended to a previously preliminary verified report. Differential Type AUTOMATED DIFFERENTIAL 12/05/2024 7:24 PM EDT [facility] Comment:This is an appended report. These results have been appended to a previously preliminary verified report. Blood Venous blood / Unknown Venipuncture / Unknown 12/05/2024 1:09 PM EDT 12/05/2024 1:10 PM EDT Marisol Batresluisa TANK WELDER-GAS OR PETROLEUM OPERATOR LAB BLOOD ORDERABLES Fi nal Result [facility] [address] [place] [address], [place] [phone] * C-reactive protein (12/05/2024 1:09 PM EDT) C REACTIVE PROTEIN 0.2 <=0.7 mg/dL 12/05/2024 7:21 PM EDT [facility] Blood Venous blood / Unknown Venipuncture / Unknown 12/05/2024 1:09 PM EDT 12/05/2024 1:10 PM EDT Marisol Boyce TANK WELDER-[facility] LAB BLOOD ORDERABLES Fi nal Result [facility] [address] [place] [address], [place] [phone] * Transferrin (12/05/2024 1:09 PM EDT) TRANSFERRIN 275 168 - 336 mg/dL 12/05/2024 7:21 PM EDT [facility] Blood Venous blood / Unknown Venipuncture / Unknown 12/05/2024 1:09 PM EDT 12/05/2024 1:10 PM EDT Marisol Boyce [facility] LAB BLOOD ORDERABLES Fi nal Result [facility] [address] [place] [address], * (ABNORMAL) Iron (12/05/2024 1:09 PM EDT) IRON 48(L) 50 - 212 ug/dL 12/05/2024 7:21 PM EDT [facility] Blood Venous blood / Unknown Venipuncture / Unknown 12/05/2024 1:09 PM EDT 12/05/2024 1:10 PM EDT Marisol Boyce [facility] LAB BLOOD ORDERABLES Fi nal Result Performing Organization Address City/[facility]/ZIP Co de Phone Number [facility] [address] [place] [address], [place] [phone] * (ABNORMAL) Ferritin (12/05/2024 1:09 PM EDT) FERRITIN 14(L) 24 - 336 ng/mL 12/05/2024 7:31 PM EDT [facility] Blood Venous blood / Unknown Venipuncture / Unknown 12/05/2024 1:09 PM EDT 12/05/2024 1:10 PM EDT Marisol Boyce [facility] LAB BLOOD ORDERABLES Fi nal Result [facility] [address] [place] [address], * (ABNORMAL) Comprehensive metabolic panel (12/05/2024 1:09 PM EDT) SODIUM 140 134 - 146 mmol/L 12/05/2024 7:21 PM EDT [facility] POTASSIUM 4.8 3.5 - 5.0 mmol/L 12/05/2024 7:21 PM EDT [facility] CHLORIDE 104 98 - 109 mmol/L 12/05/2024 7:21 PM EDT [facility] CARBON DIOXIDE 24 22 - 32 mmol/L 12/05/2024 7:21 PM EDT [facility] ANION GAP 12 5 - 15 mmol/L 12/05/2024 7:21 PM EDT [facility] BLOOD UREA NITROGEN 35(H) 5 - 27 mg/dL 12/05/2024 7:21 PM EDT [facility] CREATININE 1.13 0.60 - 1.30 mg/dL 12/05/2024 7:21 PM EDT [facility] Comment:METHOD TRACEABLE TO IDMS STANDARD GLUCOSE 208(H) 65 - 99 mg/dL 12/05/2024 7:21 PM EDT [facility] CALCIUM 8.2(L) 8.5 - 10.5 mg/dL 12/05/2024 7:21 PM EDT [facility] TOTAL PROTEIN 5.8(L) 6.0 - 8.0 g/dL 12/05/2024 7:21 PM EDT [facility] ALBUMIN 3.5 3.2 - 5.3 g/dL 12/05/2024 7:21 PM EDT [facility] ALKALINE PHOSPHATASE 67 39 - 130 U/L 12/05/2024 7:21 PM EDT [facility] AST 16 <=41 U/L 12/05/2024 7:21 PM EDT [facility] ALT 22 <=40 U/L 12/05/2024 7:21 PM EDT [facility] BILIRUBIN,TOTAL 0.8 0.3 - 1.2 mg/dL 12/05/2024 7:21 PM EDT [facility] EGFR Non-Race Dependent 67 >=60 ml/min/1.7 3sq.m 12/05/2024 7:21 PM EDT [facility] Comment: Reported eGFR is based on the CKD-EPI 2020 equation that does not use a race coefficient. Blood Venous blood / Unknown Venipuncture / Unknown 12/05/2024 1:09 PM EDT 12/05/2024 1:10 PM EDT us Marisol Boyce TANK WELDER-GAS OR PETROLEUM OPERATOR LAB BLOOD ORDERABLES Fi nal Result [facility] [address] [place] [address], [place] [phone] * Colonoscopy (04/11/2024) us Marlin Koch TANK WELDER-GAS OR PETROLEUM OPERATOR GI PROCEDURE ORDERABL ES Final Result MANUALLY TRANSCRIBED RESULTS from Last 3 Months or Most Recently Relevant to Health Maintenance Insurance [employer] [place] Care Teams Communicable Disease Specialist Relationship Specialty Start Date End Date Marisol Boyce APRN-GAS OR PETROLEUM OPERATOR PCP - General Nurse Practitioner 10/16/18
--- OUTSIDE RECORDS SUMMARY | 2024-12-20 13:19 | XMS_ITS | Encounter Summary ---
Author Organization [facility] Address [address] [place] [address] Care Team Providers Care User Support Analyst Supervisor Name Role Phone Medardoshayeluisa Marisol Pressley CNP Primary Care Provider [phone] Source Comments In the event this information is protected by the Federal Confidentiality of Alcohol and Drug AbusePatient Records regulations: The Federal rules restrict any use of the information to criminally investigate or prosecute any alcohol or drug abuse patient.[facility] Encounter Details Date Type Department Care Team (Latest Contact Info) Description 12/20/2024 H&P External-NonCCF Provider, Sumanth, ARMAND Do not enter address information under generic External Provider. Social History Tobacco Use Types Packs/Day Years Used Date Smoking Tobacco: Never Assessed Sex and Gender Information Value Date Recorded Sex Assigned at Not on file Legal Sex Male 12:00 PM EST Gender Identity Not on file Sexual Orientation Not on file documented as of this encounter Plan of Treatment Upcoming Encounters Date Type Department Care Team (Late st Contact Info) Description 12/25/2024 2:30 PM EDT Visit (SP) Office Hematology/Oncology [facility] [place] [address] Zoey Casas PARishabhC [facility] [place] [address] DX Anemia documented as of this encounter Visit Diagnoses Not on filedocumented in this encounter Care Teams User Support Analyst Supervisor Relationship Specialty Start Date End Date Marisol Boyce, MEDICAL COORDINATOR PESTICIDE USE [address] [place] [address] PCP - General Family Medicine 12/19/24 documented as of this encounter
--- OUTSIDE RECORDS SUMMARY | 2024-12-20 13:19 | XMS_ITS | Encounter Summary ---
Author Organization [facility] Address [address] [place] [address] Care Team Providers Care Repair Department Manager Name Role Phone Marisol Boyce MD Primary Care Provider [phone] Reason for Visit * Reason Comments Med Refill Encounter Details Date Type Department Care Team (Late st Contact Info) Description 03/21/[address] [facility] Cardiology [address] [place] [address] Itzel Portillo, FURNACE CONVERTER [address] [place] [address] Coronary artery disease due to lipid rich [...] Description 12/24/2024 11:00 AM EDT Office Visit [facility] [address] [place] [address] Natasha Campo MD [address] [facility] [place] [address] documented as of this encounter Visit Diagnoses Diagnosis Coronary artery disease due to lipid rich plaque documented in this encounter Care Teams Repair Department Manager Relationship Specialty Start Date End Date Marisol Boyce MD [address] [place], [place] [id number] PCP - General 04/29/22 documented as of this encounter
--- OUTSIDE RECORDS SUMMARY | 2024-12-20 13:19 | XMS_ITS | Encounter Summary ---
Author Organization [facility] Address [address] [place] [address] Care Team Providers Care Laborer Cheesemaking Name Role Phone Medardoshayeluisa Marisol Pressley CNP Primary Care Provider [phone] Source Comments In the event this information is protected by the Federal Confidentiality of Alcohol and Drug AbusePatient Records regulations: The Federal rules restrict any use of the information to criminally investigate or prosecute any alcohol or drug abuse patient.[facility] Encounter Details Date Type Department Care Team [...] EDT Visit (SP) Office Hematology/Oncology [facility] [place] [address] Zoey Casas PARishabhC [facility] [place] [address] DX Anemia documented as of this encounter Visit Diagnoses Not on filedocumented in this encounter Care Teams Laborer Cheesemaking Relationship Specialty Start Date End Date Marisol Boyce, TRAIN ANNOUNCER [address] [place] [address] PCP - General Family Medicine 12/19/24 documented as of this encounter
--- OUTSIDE RECORDS SUMMARY | 2024-12-20 13:19 | XMS_ITS | Encounter Summary ---
Author Organization [facility] tem Address [id number] [address] [place] [address] Care Team Providers Care Dredge Pumper Name Role Phone Marisol Boyce APRN-NUT PROCESSING SUPERVISOR Primary Care Provider Encounter Details Date Type Department Care Team (Late st Contact Info) Description 08/28/2020 Orders Only [facility] [address] [place] [address] Ref Prov, [place] [address] Social History Tobacco Use Types Packs/Day Years [...] on filedocumented in this encounter Care Teams Dredge Pumper Relationship Specialty Start Date End Date Marisol Boyce, SOCIAL SCIENCES RESEARCH SCIENTIST-NUT PROCESSING SUPERVISOR PCP - General Nurse Practitioner 10/16/18 documented as of this encounter
--- OUTSIDE RECORDS SUMMARY | 2024-12-20 13:20 | XMS_ITS | Encounter Summary ---
Author Organization [facility] tem Address [id number] [address] [place] [address] Care Team Providers Care Etl Programmer Name Role Phone Marisol Boyce APRN-TIRE RECAPPER Primary Care Provider Reason for Visit * Reason Onset Date Comments Error 04/16/2024 Encounter Details Date Type Department Care Team (Late st Contact Info) Description 04/16/2024 Orders Only [facility] General Surgery [address] [place] [address] Madelin Rao RMA ERRONEOUS ENCOUNTER--DISREGARD (Primary Dx); [...] Results * Colonoscopy (04/11/2024) us Marlin Koch APRN-[facility] GI PROCEDURE ORDERABL ES Final Result Performing Organization Address [facility]/ZIP Co de Phone Number MANUALLY TRANSCRIBED RESULTS * EGD (04/11/2024) Marlin Koch APRN-TIRE RECAPPER GI PROCEDURE ORDERABL ES Final Result Performing Organization Address [facility] Co de Phone Number MANUALLY TRANSCRIBED RESULTS * Surgical Pathology (04/11/2024) us Not In System Ref Prov PATHOLOGY/CYTOLOGY ORDERA BLES Edited Result - Final MANUALLY TRANSCRIBED RESULTS documented in this encounter Visit Diagnoses Diagnosis ERRONEOUS ENCOUNTER--DISREGARD- Primary Palmer's esophagus without dysplasia Encounter for colonoscopy due to history of colonic polyp documented in this encounter Care Teams Etl Programmer Relationship Specialty Start Date End Date Marisol Boyce, NGUYEN-TIRE RECAPPER PCP - General Nurse Practitioner 10/16/18 documented as of this encounter
--- OUTSIDE RECORDS SUMMARY | 2024-12-20 13:20 | XMS_ITS | Encounter Summary ---
Author Organization [facility] Address [address] [place] [address] Care Team Providers Care Fur Puller Name Role Phone Marisol Boyce MD Primary Care Provider [phone] Reason for Visit * Reason Comments Med Refill Encounter Details Date Type Department Care Team (Late st Contact Info) Description 03/20/2022 Refill [facility] Cardiology [address] [place] [address] Itzel Portillo, SAXOPHONE PLAYER [address] [place] [address] Social History Tobacco Use Types Packs/Day Years [...] Description 12/24/2024 11:00 AM EDT Office Visit [facility] [address] [place] [address] Natasha Campo MD [address] [facility] [place] [address] documented as of this encounter Visit Diagnoses Not on filedocumented in this encounter Care Teams Fur Puller Relationship Specialty Start Date End Date Marisol Boyce MD [address] [place] [address] PCP - General 04/29/22 documented as of this encounter
--- NOTE | 2024-12-20 13:21 | MR_ITS ---
The [address] [address] Patient Name: KIMMY MCARTHUR MRN: [facility]:[id number] date: 1945 Sex: M Assigned Patient Location: MRI Current Patient Location: MRI Accession/Order Number: [id number] Exam Date: 12/20/2024 13:30 Report Date: 12/20/2024 18:39 At the request of: TIMOTEO AWAN NP Procedure: MR thoracic spine wo con MRI of the thoracic spine performed without contrast INDICATION: Spondylosis of lumbar spine thoracic pain with extremity weakness COMPARISON: None FINDINGS: The thoracic vertebral heights and alignment unremarkable. There are scattered thoracic hemangiomas T6, T7 and T10. Mild disc space disease T2-T3 identified with broad-based disc bulge. Remaining Otherwise remaining thoracic discs are preserved without effusion.. Evidence of syni-lm-vgihwslo multilevel facet arthropathy noted throughout the thoracic spine greatest upper thoracic levels. The posterior element hypertrophy changes cause mild canal narrowing T9-T12. The posterior elements degenerative changes greatest involving the hysj-sy-jpeckhzp foraminal narrowing notably at T2-T3. Mild foraminal narrowing elsewhere. The thoracic cord is normal in signal and contour. Paraspinal soft tissues are grossly unremarkable. MR/MR thoracic spine wo con IMPRESSION: Multilevel posterior element degenerative changes throughout the thoracic spine without high-grade canal or neural foraminal narrowing identified identified. Impression dictated by: Regis Celaya M.D. 12/20/2024 6:39 PM Dictation Location: [place] [address] Electronically authenticated by: [id number] Y Date: 12/20/2024 18:39
--- NOTE | 2024-12-20 13:21 | MR_ITS ---
The [address] [address] Patient Name: KIMMY MCARTHUR MRN: [facility]:[id number] date: 1945 Sex: M Assigned Patient Location: MRI Current Patient Location: MRI Accession/Order Number: [id number] Exam Date: 12/20/2024 13:30 Report Date: 12/20/2024 18:56 At the request of: TIMOTEO AWAN NP Procedure: MR lumbar spine wo con MRI OF THE LUMBAR SPINE INDICATION: Spondylosis of lumbar spine, back pain COMPARISON: None FINDINGS: Mild straightening of normal lumbar lordosis. There is mild intervertebral space narrowing L3-S1 and moderate anterior intervertebral space space narrowing L1-L2. Incidental hemangioma at L3. 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 No findings of acute compression fracture. The conus medullaris terminates at mid L2. Paraspinal soft tissues are unremarkable. T12-L1: Facet arthropathy. Otherwise no significant disease central canal or neural foramen identified. L1-L2: Broad-based disc bulge with facet arthropathy. Mild central canal and mild right and left neural foraminal narrowing. L2-3: Broad-based disc bulge with moderate right moderate left facet arthropathy. There is mild rights moderate left facet about. There is mild central canal stenosis. L3-4: Broad-based disc bulge with endplate osteophytosis and facet arthropathy. Mild/moderate right-sided moderate left-sided neural from narrowing. There is sydy-yg-fxsphyin central canal stenosis. L4-5: Circumferential disc bulge with moderate facet arthropathy. There is moderate bilateral neural foraminal narrowing. Mild central canal stenosis. L5-S1: Circumferential disc bulge with endplate osteophytosis and spurring and facet arthropathy. These findings result in moderate to severe right and mild/moderate left-sided neural foraminal narrowing. Canal is patent. MR/MR lumbar spine wo con IMPRESSION: Degenerative changes greatest in the right at L5-S1 with moderate severe right-sided foraminal narrowing. Otherwise [id number] degenerative changes throughout the remainder of the lumbar spine. Impression dictated by: Regis Celaya M.D. 12/20/2024 6:56 PM Dictation Location: [place] [address] Electronically authenticated by: [id number] Y Date: 12/20/2024 18:56
--- OUTSIDE RECORDS SUMMARY | 2024-12-20 13:21 | XMS_ITS | Encounter Summary ---
Author Organization [facility] Address [address] [facility] [place] [address] Care Team Providers Care Ed Transporter Name Role Phone Marisol Boyce CORE FINISHER Unavailable [phone] Prabhjot Roman MD Primary Care Provider [phone] Marisol Boyce CORE FINISHER Unavailable [phone] Marisol Boyce NP Unavailable [phone] Encounter Details Date Type Department Care Team (Late st Contact Info) Description 04/11/2024 Orders Only [facility] [address] [place] [address] Marisol Boyce NP [address] [place] [address] Social History Tobacco Use Types Packs/Day Years [...] week 06/07/2023 How often do you attend [facility] or worship services? More than 4 times per year 06/07/2023 Do you belong to any clubs o r organizations such as restorationism groups, unions, fraternal or athletic groups, or [...] Recorded Patient Health Questionnaire-2 Score 0 06/07/2023 [facility] - Occupational [...] place to sleep or slept in a retirement (including now)? No 06/07/2023 Sex and Gender [...] documented as of this encounter Care Teams Ed Transporter Relationship Specialty Start Date End Date Prabhjot Roman MD PCP - General Family Medicine 06/07/23 Marisol Boyce NP [address] [place] [address] PCP - ACO Reach 05/04/24 Marisol Boyce NP Nurse Practitioner Family Medicine 03/28/22 Marisol Boyce NP Nurse Practitioner Family Medicine 06/07/23 documented as of this encounter
--- OUTSIDE RECORDS SUMMARY | 2024-12-20 13:21 | XMS_ITS | Encounter Summary ---
Author Organization [facility] Address [address] [facility] [place] [address] Care Team Providers Care Graduate Assistant Name Role Phone Marisol Boyce APARTMENT HOUSE MANAGER Unavailable [phone] Prabhjot Roman MD Primary Care Provider [phone] Marisol Boyce APARTMENT HOUSE MANAGER Unavailable [phone] Marisol Boyce NP Unavailable [phone] Encounter Details Date Type Department Care Team (Late st Contact Info) Description 07/12/2024 Orders Only [facility] [address] [place] [address] Marisol Boyce NP [address] [place] [address] Social History Tobacco Use Types Packs/Day Years [...] 06/07/2023 How often do you attend [facility] or islam services? More than 4 times per year 06/07/2023 Do you belong to any clubs o r organizations such as advent groups, unions, fraternal or athletic groups, or [...] Recorded Patient Health Questionnaire-2 Score 0 06/07/2023 [facility] - Occupational Stress [...] place to sleep or slept in a care home (including now)? No 06/07/2023 Sex and [...] LABS (07/12/2024 10:28 AM EDT) Marisol Boyce APARTMENT HOUSE MANAGER LAB CHG PERFORMABLES Final Resu lt * SCANNED LABS (07/12/2024 10:18 AM EDT) Marisol Boyce APARTMENT HOUSE MANAGER LAB CHG PERFORMABLES Final Resu lt documented in this encounter Visit Diagnoses Not on filedocumented in this encounter Additional Health Concerns Assessment Noted Time PHQ-9 Depression Total Score: 1 06/07/19 24 10:36 AM EDT documented as of this encounter Care Teams Graduate Assistant Relationship Specialty Start Date End Date Naderer, Prabhjot, MD PCP - General Family Medicine 06/07/23 Marisol Boyce NP [address] [place] [address] PCP - ACO Reach 05/04/24 Marisol Boyce NP Nurse Practitioner Family Medicine 03/28/22 Marisol Boyce NP Nurse Practitioner Family Medicine 06/07/23 documented as of this encounter
--- OUTSIDE RECORDS SUMMARY | 2024-12-20 13:22 | XMS_ITS | CCD ---
Author Organization [facility] Care Team Providers Care Building Tech Name Role Phone MARISOL BOYCE Primary Care Physician Unavaila ble AICHHOLZ, FURNACE OPERATOR MARISOL Admitting Unavailable AICHHOLZ, FURNACE OPERATOR MARISOL Attending Unavailable AICHHOLZ, FURNACE OPERATOR MARISOL Primary Care Unavailable AICHHOLZ, FURNACE OPERATOR MARISOL Consulting Unavailable AICHHOLZ, FURNACE OPERATOR MARISOL Admitting Unavailable AICHHOLZ, FURNACE OPERATOR MARISOL Attending Unavailable AICHHOLZ, FURNACE OPERATOR MARISOL Primary Care Unavailable AICHHOLZ, FURNACE OPERATOR MARISOL Consulting Unavailable DR SANJAY REECE Consulting Unavailable ROSEANNA, MARCO Admitting Unavailable ROSEANNA, MARCO Attending Unavailable AICHHOLZ, FURNACE OPERATOR MARISOL Primary Care Unavailable ROSEANNA, MARCO Consulting Unavailable AICHHOLZ, FURNACE OPERATOR MARISOL Admitting Unavailable AICHHOLZ, FURNACE OPERATOR MARISOL Attending Unavailable AICHHOLZ, FURNACE OPERATOR MARISOL Primary Care Unavailable AICHHOLZ, FURNACE OPERATOR MARISOL Consulting Unavailable FLOR, DWAIN Admitting Unavailable FLOR, DWAIN Attending Unavailable AICHHOLZ, FURNACE OPERATOR MARISOL Primary Care Unavailable FLOR, WDAIN Consulting Unavailable Aichholz MINILAB OPERATOR, Marisol Unavailable Prabhjot Villatoro MD Primary Care Provider [phone] MARISOL BOYCE Primary Care Physician Aichluisa MINILAB OPERATOR, Marisol Unavailable Prabhjot Villatoro MD Primary Care Provider Aichholz MINILAB OPERATOR, Marisol Unavailable Marisol Boggs Primary Care Provider MARLIN KOCH Attending Unavailable AICHHOLMARISOL Mae J Referring Unavailable AICHHOLZ, MARISOL J Primary Care Unavailable MARLIN KOCH Attending Unavailable AICHHOLTu, MARISOL J Referring Unavailable AICHHOLZ, MARISOL J Primary Care Unavailable Sabino Mauricio DO Attending Provider [phone] Sabino Mauricio Attending Unavailable Sabino Mauricio Admitting Unavailable Aichholz Marisol ARNOLD Unavailable Deja Perez Attending Unavailable AICHHOLZ, MARISOL J Admitting Unavailable AICHHOLZ, MARISOL J Attending Unavailable YAMILEX ARMSTRONG Admitting Unavailable YAMILEX ARMSTRONG Attending Unavailable Fiona Beaver Attending Unavailable EUGENIO, YAMILEX E Attending Unavailable EUGENIO, YAMILEX E Admitting Unavailable AICHHOLZ, MARISOL J Attending Unavailable AICHHOLZ, MARISOL J Admitting Unavailable AICHHOLZ, MARISOL Attending Unavailable AICHHOLZ, MARISOL Attending Unavailable AICHHOLZ, MARISOL Attending Unavailable AICHHOLZ, MARISOL Attending Unavailable AICHHOLZ, MARISOL Attending Unavailable AICHHOLZ, MARISOL Attending Unavailable AICHHOLZ, MARISOL Attending Unavailable [facility] Attending Unavailable [facility] Attending Unavailable Clem Daniels DO Attending Provider Lj Carbajal DO Attending Provider [phone] Marisol Boyce Primary Care Provider Marisol Boyce Attending Provider [facility] A Referring Unavailable AICHHOLZ, MARISOL [...] Unavailable AICHHOLZ, MARISOL J Primary Care Unavailable [facility] Referring Unavailable MARISOL BOYCE Primary Care Unavailable [facility], AB A Referring Unavailable MARISOL BOYCE Primary Care Unavailable [facility] Referring Unavailable MARISOL BOYCE Primary Care Unavailable [facility] Referring Unavailable MARISOL BOYCE Primary Care Unavailable [facility] Referring Unavailable MARISOL BOYCE Primary Care Unavailable [facility] Referring Unavailable MARISOL BOYCE Primary Care Unavailable [facility] Referring Unavailable MARISOL BOYCE Primary Care Unavailable MARISOL BOYCE Referring Unavailable MARISOL BOYCE Primary Care Unavailable Medications Current Medications Medication Drug Class(es) Dates Sig (Normalized) Sig (Original) [id number] actuat albuterol 0.09 mg/actuat metered dose inhaler (20 sources) beta2-Adrenergic Agonist Start: 07-01-2022 take 2 puff(s) by mouth every six hours as needed for wheezing albuterol (PROVENTIL HFA;VENTOLIN HFA) 90 mcg/actuation inhaler Indications: COPD, moderate ([facility]) INHALE 2 PUFFS BY MOUTH EVERY 6 HOURS NEEDED FOR WHEEZING 54 g 1 07/01/2022 Active amiodarone hydrochloride 200 mg oral tablet (20 sources) Antiarrhythmic Start: 12-05-2024 take 1 tablet by mouth once daily Amiodarone 200 mg tablet Active 200 MG PO Daily December 05, 2024 12:00am Complies with drug therapy Start: 10-07-2023 End: 01-12-2024 take 1 tablet [...] End: 03-14-2025 take 1 tablet by mouth twice daily Apixaban (Eliquis) 5 mg tablet Active 5 MG PO Twice daily December 05, 2024 12:00am Complies with drug therapy Start: 10-07-2023 End: 01-13-2024 take 1 tablet by mouth in the morning apixaban (Eliquis) 5 MG tablet Take 5 mg by mouth in the morning and 5 mg in the evening. 10/07/2023 01/13/2024 Active aspirin 81 mg oral tablet (20 sources) Platelet Aggregation Inhibitor, Nonsteroidal Anti-inflammatory Drug Start: 12-05-2024 take 1 tablet by mouth once daily Aspirin 81 mg tablet Active 81 MG PO Daily December 05, 2024 12:00am Complies with drug therapy Start: 10-07-2023 Aspirin Low Do se 81 MG chewable tablet Chew 81 mg [...] tablet (20 sources) HMG-CoA Reductase Inhibitor Start: 12-05-2024 take 1 tablet by mouth once daily Atorvastatin 80 mg tablet Active 80 MG PO Daily December 05, 2024 12:00am Complies with drug therapy take 1 tablet by mouth in the mo rning atorvastatin (Lipitor) 80 MG tablet Take 80 mg by mouth in the morning. Active carvedilol 3.125 mg oral tablet (20 sources) alpha-Adrenergic Cesilia, beta-Adrenergic Cesilia Start: 12-05-2024 take 1 tablet by mouth twice daily at mealtime Carvedilol 3.125 mg tablet Active 3.125 MG PO Twice daily December 05, 2024 12:00am must administer with a meal/food Complies with drug therapy Start: 10-07-2023 take 1 tablet by allyn th in the morning carvedilol (Coreg) 3.125 MG [...] Status: Ordered Repeat number: 1 Continuous Glucose Quality Improvement Analyst (Dexcom G7 Quality Improvement Analyst) device (8 sources) Start: 10-20-2023 End: 01-28-2024 Continuous Glucose Quality Improvement Analyst (Dexcom G7 Quality Improvement Analyst) device Indications: Type 2 diabetes mellitus without complication, with long-term current use of insulin ([facility]) 1 each Daily 1 each 1 10/20/2023 01/28/2024 Active Continuous Glucose Sensor (Dexcom G7 Sensor) misc (8 sources) Start: 10-20-2023 End: 01-18-2024 Continuous Glucose Sensor (Dexcom G7 Sensor) misc Indications: Type 2 diabetes mellitus without complication, with long-term current use of insulin ([facility]) 1 each Daily 12 each 4 10/20/2023 01/18/2024 Active dapagliflozin 5 mg oral tablet (20 sources) Sodium-Glucose Cotransporter 2 Inhibitor Start: 12-05-2024 take 1 tablet by mouth once daily Dapagliflozin Propanediol (Farxiga) 5 mg tablet Active 5 MG PO Daily December 05, 2024 12:00am Complies with drug therapy Start: 07-11-2023 take 1 tablet by allyn once daily Farxiga 10 mg oral tablet 10 mg = 1 tab(s), Oral, Daily, Refills(s) 0 Start Date: 07/11/23 Status: Ordered Repeat number: 1 dapagliflozin (F arxiga) 5 MG Take by mouth Active docusate sodium 50 mg / sennosides, long-term 8.6 mg oral tablet (1 source) Start: 12-05-2024 take 1 tablet by mouth once daily at bedtime Sennosides-Docusate Sodium (Stimulant Laxative Plus) 8.6-50 mg tablet Active 1 TAB-CAP PO Daily at bedtime December 05, 2024 12:00am Complies with drug therapy ezetimibe 10 mg oral tablet (20 sources) Dietary Cholesterol Absorption Inhibitor Start: 02-13-2024 End: 02-12-2025 take 1 tablet by mouth once daily Ezetimibe (Zetia) 10 mg tablet Active 10 MG PO Daily December 05, 2024 12:00am Complies with drug therapy Start: 10-07-2023 End: 01-12-2024 take 1 tablet by mouth at bedtime ezetimibe (Zetia) 10 MG tablet Take 10 mg by mouth at bedtime 10/07/2023 01/12/2024 Active ferrous sulfate 325 mg oral tablet (20 sources) Start: 12-05-2024 take 1 tablet by mouth once daily Ferrous Sulfate 325 mg (65 mg iron) tablet Active 325 MG PO Daily December 05, 2024 12:00am Complies with drug therapy Start: 10-19-2023 End: 01-17-2024 take 1 tablet [...] pen injector (20 sources) Insulin Analog Start: 12-05-2024 Insulin Glargi ne (Lantus Solostar U-100 Insulin) 100 unit/mL (3 mL) insulin pen Active 50 UNIT SUBCUT Daily December 05, 2024 12:00am Complies with drug therapy Start: 04-04-2024 End: 07-03-2024 inject 50 [IU] [...] Start: 03-22-2023 End: 04-04-2024 insulin glargine (Basaglar KwikPen) 100 UNIT/ML pen Indications: Type 2 diabetes mellitus without complication, with long-term current use of insulin ([facility]) Up to 50 units daily 15 each [...] complication, with long-term current use of insulin ([facility]) Will use up to 50 units daily 45 mL 1 03/29/2024 Active lisinopril 20 mg oral tablet (20 sources) Angiotensin Converting Enzyme Inhibitor Start: 12-05-2024 take 1 tablet by mouth once daily Lisinopril 20 mg tablet Active 20 MG PO Daily December 05, 2024 12:00am Complies with drug therapy Start: 04-10-2024 lisinopril 20 MG tablet 20 mg Daily 04/10/2024 Active Start: 02-25-2024 End: 05-15-2024 lisinopril 5 MG tablet 02/2405/15/2024 Discontinued (Therapy completed) Start: 10-07-2023 End: 04-04-2024 take 1 tablet by mouth in the morning lisinopril 20 MG tablet Take 20 mg by mouth in the morning. 10/07/2023 04/04/2024 Active metFORMIN hydrochloride 500 mg oral tablet (20 sources) Biguanide Start: 12-05-2024 take 1 tablet by mouth twice daily Metformin 500 mg tablet Active 500 MG PO Twice daily December 05, 2024 12:00am Complies with drug therapy Start: 02-15-2024 End: 11-08-2024 take 1 tablet by mouth in the morning metFORMIN (Glucophage) 500 MG tablet Indications: Type 2 Diabetes Mellitus Take 1 tablet (500 mg) by mouth in the morning and 1 tablet (500 mg) in the evening. Take with meals. 180 tablet 08/10/2024 11/08/2024 Active Start: 03-12-2013 take 1000 mg by mout h twice daily metformin 1,000 mg, Oral, BID, Refills(s) 0, High blood sugar Start Date: 03/12/13 Status: Ordered take 1 tablet by allyn th once daily at breakfast metFORMIN (GLUCOPHAGE) 1000 mg tablet Take 1 tablet (1,000 mg total) by mouth daily with breakfast. Active Metoprolol (20 sources) beta-Adrenergic Cesliia Start: 03-12-2013 metopr olol Oral, Daily, Refills(s) [...] End: 12-25-2024 take 1 capsule by mouth once daily Omeprazole 40 mg capsule,delayed release(DR/EC) Active 40 MG PO Daily December 05, 2024 12:00am Complies with drug therapy Start: 01-05-2022 End: 03-05-2024 take 1 capsule [...] SUGAR TID DIRECTED 04/20/2019 Active peg 3350-sod sulf,ynko-kgy-tcf 178.7-7.3-0.5 gram recon soln (1 source) Start: 03-05-2024 End: 03-06-2024 peg 3350-sod sulf,ouaw-swd-ftz 178.7-7.3-0.5 gram recon soln Indications: Encounter for [...] THE SKIN EVERY DAY 04/04/2024 Active sennosides, long-term 8.6 mg oral tablet (15 sources) Start: [...] Daily, # 90 cap(s), Refills(s) 3, Pharmacy: [facility] #[id number], 77.8, kg, 06/18/22 9:54:00 EDT, Weight Dosing Start Date: 06/18/22 Status: Ordered Quantity: 90.0 Unit: cap(s) Repeat number: 4 take 1 capsule by [facility] every twenty-four hours at bedtime [...] hrs., # 10 tab(s), Refills(s) 5, Pharmacy: [facility] #[id number], 182, cm, 07/11/23 14:01:00 EDT, Height/Length Dosing, 76, kg, 07/11/23 14:01:00 EDT, Weight Dosing Start Date: 07/11/23 Status: Ordered Quantity: 10.0 Unit: tab(s) Repeat number: 6 Problems Active Problems Problem Classification Problem Date Documented Da te Episodic/Chronic Abdominal hernia (18 sources) Hiatal hernia; Translations: [Diaphragmatic hernia without obstruction or gangrene] Onset: 04-11-2024 04-11-2024 Episodic Acute myocardial infarction (20 sources) Myocardial infarction; [...] Chronic Conditions associated with dizziness or vertigo (17 sources) Dizziness and giddiness; Translations: [Dizziness and giddiness] Onset: 08-15-2024 08-15-2024 Episodic Coronary atherosclerosis and other heart disease (20 sources) Coronary arteriosclerosis; Translations: [History of myocardial infarction] Onset: 04-30-2022 03-12-2020 Chronic Deficiency and other anemia (5 sources) Anemia 03-12-2020 Episodic Deficiency and other anemia (6 sources) Iron deficiency anemia, unspecified; Translations: [IRON DEFICIENCY ANEMIA UNSPECIFIED] Onset: 06-11-2022 Episodic Deficiency and other anemia (20 sources) Iron deficiency anemia; Translations: [Iron deficiency anemia, unspecified] Onset: 04-11-2023 04-11-2023 Episodic Diabetes mellitus with complications (20 sources) [...] symptoms] Onset: 06-18-2021 Chronic Malaise and fatigue (6 sources) Fatigue; Translations: [Other fatigue] Onset: 12-05-2024 03-12-2020 Episodic Miscellaneous mental health disorders (17 sources) Primary insomnia; Translations: [Primary insomnia] Onset: 05-15-2024 05-15-2024 Chronic Mood disorders (5 sources) Depressive disorder 03-12-2020 Chronic Osteoarthritis (20 sources) Osteoarthritis of left hip joint; Translations: [Unilateral primary osteoarthritis, left hip] Onset: 04-05-2019 04-05-2019 Chronic Other aftercare (1 source) Long-term current use of drug therapy; Translations: [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/anti platelets] Onset: 06-18-2022 Episodic Other and ill-defined heart disease (20 sources) Left ventricular thrombus; Translations: [Intracardiac thrombosis, not elsewhere classified] Onset: 11-10-2023 11-22-2023 Chronic Other and ill-defined heart disease (20 sources) Left ventricular aneurysm; Translations: [Aneurysm of heart] Onset: 11-10-2023 11-22-2023 Chronic Other and unspecified benign neoplasm (1 source) Benign neoplasm of colon, unspecified; 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] 12-05-2024 Episodic Other circulatory disease (20 sources) Disorder of [...] 03-13-2020 Episodic Residual codes; unclassified (1 source) Insomnia; Translations: [Insomnia, unspecified] 12-05-2024 Episodic Screening and history of mental health and substance abuse codes (5 sources) Ex-smoker 03-13-2020 Episodic Spondylosis; intervertebral disc disorders; other back problems (20 sources) Lumbar spondylosis; Translations: [Herniation of nucleus pulposus of lumbar intervertebral disc] Onset: 06-07-2019 03-12-2020 Chronic Spondylosis; intervertebral disc disorders; other back problems (20 sources) Backache; Translations: [Lumbosacral pain] Onset: 10-16-2018 04-11-2023 Episodic Thyroid disorders (20 sources) Hypothyroidism; Translations: [Other specified hypothyroidism] Onset: 10-04-2023 10-11-2023 Chronic Unclassified (5 sources) Asymptomatic microscopic hematuria 03-13-2020 Unclassified (5 sources) Peripheral arterial disease 03-12-2020 Unclassified (6 sources) Patient encounter status 06-18-2022 Unclassified (1 source) POST COVID-19 CONDITION UNSPECIFIED; Translations: [POST COVID-19 CONDITION UNSPECIFIED] Onset: 06-19-2022 Unclassified (1 source) Personal history of colon [...] angioplasty implant and graft] Onset: 12-16-2023 Episodic Mood disorders (20 sources) Mood disorders Onset: 06-07-2023 Resolved: 08-15-2024 06-07-2023 Other and unspecified benign neoplasm (20 sources) [...] left hip] Onset: 11-29-2018 11-29-2018 Episodic Other gastrointestinal disorders (1 source) Diarrhea, [...] use] Onset: 06-07-2023 Resolved: 06-07-2023 06-07-2023 Episodic Results Test Name Value Interpretation Reference Range Facility C-REACTIVE PROTEINon 025 C REACTIVE PROTEIN 0.2 mg/dL Normal <=0.7 [facility] Comment on above: Performed By: #### C RP #### [facility] [address] [place] [address] VIR CBC WITH AUTO DIFFERENTIALon 12-05-2024 BASOPHILS ABSOLUTE COUNT (10*3/UL) BY AUTOMATED COUNT 0.1 10*3/uL Normal 0.0-0.2 [facility] Comment on above: Result Comment: This is an appended report. These results have been appended to a previously preliminary verified report. Performed By: #### C BCA #### [facility] [address] [place] [address] VIR BASOPHILS RELATIVE PERCENT BY AUTOMATED COUNT 1.3 % Normal [facility] Comment on above: Result Comment: This is an appended report. These results have been appended to a previously preliminary verified report. Performed By: #### C BCA #### [facility] [address] [place] [address] VIR CELLAVISION ANISOCYTOSIS IN BLOOD BY LIGHT MICROSCOPY 2+ Normal [facility] Comment on above: Result Comment: This is an appended report. These results have been appended to a previously preliminary verified report. Performed By: #### C BCA #### [facility] [address] [place] [address] VIR CELLAVISION MEET CELLS IN BLOOD BY LIGHT MICROSCOPY 1+ Normal [facility] Comment on above: Result Comment: This is an appended report. These results have been appended to a previously preliminary verified report. Performed By: #### C BCA #### [facility] [address] [place] [address] VIR CELLAVISION DIFFERENTIAL TYPE AUTOMATED DIFFERENTIAL Normal [facility] Comment on above: Result Comment: This is an appended report. These results have been appended to a previously preliminary verified report. Performed By: #### C BCA #### [facility] [address] [place] [address] VIR CELLAVISION ELLIPTOCYTES IN BLOOD BY LIGHT MICROSCOPY 1+ Normal [facility] Comment on above: Result Comment: This is an appended report. These results have been appended to a previously preliminary verified report. Performed By: #### C BCA #### [facility] [address] [place] [address] VIR CELLAVISION POLYCHROMASIA IN BLOOD BY LIGHT MICROSCOPY 1+ Normal [facility] Comment on above: Result Comment: This is an appended report. These results have been appended to a previously preliminary verified report. Performed By: #### C BCA #### [facility] [address] [place] [address] VIR CELLAVISION RBC FRAGMENTS 1+ Normal [facility] Comment on above: Result Comment: This is an appended report. These results have been appended to a previously preliminary verified report. Performed By: #### C BCA #### [facility] [address] [place] [address] VIR Eosinophils (Bld) [#/Vol] 0.2 10*3/uL Normal 0.0-0.4 [facility] Comment on above: Result Comment: This is an appended report. These results have been appended to a previously preliminary verified report. Performed By: #### C BCA #### [facility] [address] [place] [address] VIR EOSINOPHILS RELATIVE PERCENT BY AUTOMATED COUNT 3.4 % Normal [facility] Comment on above: Result Comment: This is an appended report. These results have been appended to a previously preliminary verified report. Performed By: #### C BCA #### [facility] [address] [place] [address] VIR Erythrocyte distribution width (RBC) [Ratio] 22.4 % High 11.5-15 [facility] Comment on above: Performed By: #### C BCA #### [facility] [address] [place] [address] VIR Hematocrit (Bld) [Volume fraction] 26.4 % Low 39-50 [facility] Comment on above: Performed By: #### C BCA #### [facility] [address] [place] [address] VIR Hemoglobin (Bld) [Mass/Vol] 8.4 g/dL Low 13-17 [facility] Comment on above: Performed By: #### C BCA #### [facility] [address] [place] [address] VIR LYMPHOCYTES ABSOLUTE COUNT (10*3/UL) BY AUTOMATED COUNT 1.3 10*3/uL Normal 1.0-3.5 [facility] Comment on above: Result Comment: This is an appended report. These results have been appended to a previously preliminary verified report. Performed By: #### C BCA #### [facility] [address] [place] [address] VIR LYMPHOCYTES RELATIVE PERCENT BY AUTOMATED COUNT 22.3 % Normal [facility] Comment on above: Result Comment: This is an appended report. These results have been appended to a previously preliminary verified report. Performed By: #### C BCA #### [facility] [address] [place] [address] VIR MCH (RBC) [Entitic mass] 26.9 pg Low 27-34 [facility] Comment on above: Performed By: #### C BCA #### [facility] [address] [place] [address] VIR MCHC (RBC) [Mass/Vol] 31.6 g/dL Low 32-36 [facility] Comment on above: Performed By: #### C BCA #### [facility] [address] [place] [address] VIR MCV (RBC) [Entitic vol] 85 fL Normal 80-100 [facility] Comment on above: Performed By: #### C BCA #### [facility] [address] [place] [address] VIR MONOCYTES ABSOLUTE COUNT (10*3/UL) BY AUTOMATED COUNT 0.4 10*3/uL Normal 0.0-0.9 [facility] Comment on above: Result Comment: This is an appended report. These results have been appended to a previously preliminary verified report. Performed By: #### C BCA #### [facility] [address] [place] [address] VIR MONOCYTES RELATIVE PERCENT BY AUTOMATED COUNT 7.3 % Normal [facility] Comment on above: Result Comment: This is an appended report. These results have been appended to a previously preliminary verified report. Performed By: #### C BCA #### [facility] [address] [place] [address] VIR NEUTROPHILS ABSOLUTE COUNT BY AUTOMATED COUNT 3.7 10*3/uL Normal 1.5-6.6 [facility] Comment on above: Result Comment: This is an appended report. These results have been appended to a previously preliminary verified report. Performed By: #### C BCA #### [facility] [address] [place] [address] VIR NEUTROPHILS RELATIVE PERCENT BY AUTOMATED COUNT 65.7 % Normal [facility] Comment on above: Result Comment: This is an appended report. These results have been appended to a previously preliminary verified report. Performed By: #### C BCA #### [facility] [address] [place] [address] VIR Platelet mean volume (Bld) [Entitic vol] 8.4 fL Normal 7-12 [facility] Comment on above: Performed By: #### C BCA #### [facility] [address] [place] [address] VIR Platelets (Bld) [#/Vol] 177 10*3/uL Normal 150-450 [facility] Comment on above: Performed By: #### C BCA #### [facility] [address] [place] [address] VIR RBC COUNT 3.11 X10E12/L Low 4.1-5.7 [facility] Comment on above: Performed By: #### C BCA #### [facility] [address] [place] [address] VIR WBC (Bld) [#/Vol] 5.7 10*3/uL Normal 4-11 [facility] Comment on above: Performed By: #### C BCA #### [facility] [address] [place] [address] VIR COMPREHENSIVE METABOLIC PANE Aaron 12-05-2024 Albumin [Mass/Vol] 3.5 g/dL Normal 3.2-5.3 [facility] Comment on above: Performed By: #### C MP #### [facility] [address] [place] [address] VIR ALP [Catalytic activity/Vol] 67 U/L Normal 39-130 [facility] Comment on above: Performed By: #### C MP #### [facility] [address] [place] [address] VIR ALT [Catalytic activity/Vol] 22 U/L Normal <=40 [facility] Comment on above: Performed By: #### C MP #### [facility] [address] [place] [address] VIR Anion gap [Moles/Vol] 12 mmol/L Normal 5-15 [facility] Comment on above: Performed By: #### C MP #### [facility] [address] [place] [address] VIR AST [Catalytic activity/Vol] 16 U/L Normal <=41 [facility] Comment on above: Performed By: #### C MP #### [facility] [address] [place] [address] VIR Bilirubin [Mass/Vol] 0.8 mg/dL Normal 0.3-1.2 [facility] Comment on above: Performed By: #### C MP #### [facility] [address] [place] [address] VIR Calcium [Mass/Vol] 8.2 mg/dL Low 8.5-10.5 [facility] Comment on above: Performed By: #### C MP #### [facility] [address] [place] [address] VIR Chloride [Moles/Vol] 104 mmol/L Normal 98-109 [facility] Comment on above: Performed By: #### C MP #### [facility] [address] [place] [address] VIR CO2 [Moles/Vol] 24 mmol/L Normal 22-32 [facility] Comment on above: Performed By: #### C MP #### [facility] [address] [place] [address] VIR Creatinine [Mass/Vol] 1.13 mg/dL Normal 0.60-1.30 [facility] Comment on above: Result Comment: METH OD TRACEABLE TO IDMS STANDARD Performed By: #### C MP #### [facility] [address] [place] [address] VIR GFR/1.73 sq M.predicted among non-blacks MDRD (S/P/Bld) [Vol rate/Area] 67 mL/min/{1.73_m2} Normal >=60 [facility] Comment on above: Result Comment: Repo rted eGFR is based on the CKD-EPI 2020 equation that does not use a race coefficient. Performed By: #### C MP #### [facility] [address] [place] [address] VIR Glucose [Mass/Vol] 208 mg/dL High 65-99 [facility] Comment on above: Performed By: #### C MP #### [facility] [address] [place] [address] VIR Potassium [Moles/Vol] 4.8 mmol/L Normal 3.5-5.0 [facility] Comment on above: Performed By: #### C MP #### [facility] [address] [place] [address] VIR Protein [Mass/Vol] 5.8 g/dL Low 6.0-8.0 [facility] Comment on above: Performed By: #### C MP #### [facility] [address] [place] [address] VIR Sodium [Moles/Vol] 140 mmol/L Normal 134-146 [facility] Comment on above: Performed By: #### C MP #### [facility] [address] [place] [address] VIR Urea nitrogen [Mass/Vol] 35 mg/dL High 5-27 [facility] Comment on above: Performed By: #### C MP #### [facility] [address] [place] [address] VIR ERYTHROCYTE SEDIMENTATION RA TE (ESR)on 12-05-2024 ESR, ERYTHROCYTE SEDIMENTATION RATE 2 mm/h Normal 0-20 [facility] Comment on above: Performed By: #### E SR #### [facility] [address] [place] [address] VIR FERRITINon 12-05-2024 Ferritin [Mass/Vol] 14 ng/mL Low 24-336 [facility] Comment on above: Performed By: #### F ERR #### [facility] [address] [place] [address] VIR IRONon 12-05-2024 Iron [Mass/Vol] 48 ug/dL Low 50-212 [facility] Comment on above: Performed By: #### F E #### [facility] [address] [place] [address] VIR TRANSFERRINon 12-05-2024 Transferrin [Mass/Vol] 275 mg/dL Normal 168-336 [facility] Comment on above: Performed By: #### T RF #### [facility] [address] [place] [address] VIR Basophils Auto (Bld) [#/Vol] Ordered By: Lj Carbajal on 11-28-2024 Basophils (Bld) [#/Vol] 0.0 10 3/uL 0.0-0.1 [facility] Basophils/100 WBC Auto (Bld) Ordered By: Lj Carbajal on 11-28-2024 Basophils/100 WBC (Bld) 0.6 % 0.2-2.0 [facility] Cholesterol in LDL Calc [Mas s/Vol]Ordered By: Lj Carbajal on 11-28-2024 Cholesterol in LDL [Mass/Vol] 25.0 mg/dL [facility] Comment on above: <100 mg/dl [id number] 0-129 mg/dl NEAR OR ABOVE [id number] mg/dl B[place] [id number] mg/dl HIGH>190 mg/dl VERY HIGH Cholesterol in VLDL Calc [Ma ss/Vol]Ordered By: Lj Carbajal on 11-28-2024 Cholesterol in VLDL [Mass/Vol] 9.0 mg/dL [facility] Eosinophils/100 WBC Auto (Bl d)Ordered By: Lj Carbajal on 11-28-2024 Eosinophils/100 WBC (Bld) 2.9 % 0.9-7.0 [facility] Erythrocyte distribution wid th Auto (RBC) [Ratio]Ordered By: Lj Carbajal on 11-28-2024 Erythrocyte distribution width (RBC) [Ratio] 17.5 % High 11.0-15.0 [facility] Globulin Calc (S) [Mass/Vol] Ordered By: Lj Carbajal on 11-28-2024 Globulin (S) [Mass/Vol] 3.1 g/dL [facility] [place] Glomerular filtration rate ( GFR) estimation in non- AmericanOrdered By: Lj Carbajal on 11-28-2024 GFR/1.73 sq M.predicted among non-blacks MDRD (S/P/Bld) [Vol rate/Area] mL/min/{1.73_m2} >=60 mL/min/1.73m 2 [facility] Hematocrit Auto (Bld) [Volum e fraction]Ordered By: Lj Carbajal on 11-28-2024 Hematocrit (Bld) [Volume fraction] 26.0 % Low 42.0-54.0 [facility] Hemoglobin [Mass/volume] in BloodOrdered By: Lj Carbajal on 11-28-2024 Hemoglobin (Bld) [Mass/Vol] 8.0 g/dL Low 14.0-18.0 [facility] Laboratory - Chemistry and C hemistry - challengeOrdered By: Lj Carbajal on 11-28-2024 Albumin [Mass/Vol] 3.1 g/dL Low 3.4-5.0 [facility] ALP [Catalytic activity/Vol] 105 U/L 46-116 [facility] ALT [Catalytic activity/Vol] 135 U/L High 16-63 [facility] AST [Catalytic activity/Vol] 30 U/L 15-37 [facility] Bilirubin [Mass/Vol] 1.7 mg/dL High 0.2-1.0 [facility] Calcium [Mass/Vol] 8.6 mg/dL 8.5-10.1 [facility] Chloride [Moles/Vol] 108 mmol/L High 98-107 [facility] Cholesterol [Mass/Vol] 78 mg/dL <=200 [facility] Cholesterol in HDL [Mass/Vol] 44 mg/dL 40-60 [facility] Comment on above: > or =60 mg/dl - LOW CARDIOVASCULAR RISK<40 mg/dl - HIGH CARDIOVASCULAR RISK CO2 [Moles/Vol] 28.3 mmol/L 21.0-32.0 [facility] Cobalamin (Vitamin B12) [Mass/Vol] 611 pg/mL 232-1245 [facility] Comment on above: Performed at: [place] [id number] Director: Dar Young PhD, Phone: [phone] Creatinine [Mass/Vol] 0.91 mg/dL 0.70-1.30 [facility] GFR/1.73 sq M.predicted MDRD (S/P/Bld) [Vol rate/Area] mL/min/{1.73_m2} >=60 mL/min/1.73m 2 [facility] Glucose [Mass/Vol] 175 mg/dL High 74-106 [facility] Magnesium [Mass/Vol] 2.2 mg/dL 1.8-2.4 [facility] Potassium [Moles/Vol] 4.5 mmol/L 3.5-5.1 [facility] Protein [Mass/Vol] 6.2 g/dL Low 6.4-8.2 [facility] Sodium [Moles/Vol] 141 mmol/L 136-145 [facility] Triglyceride [Mass/Vol] 45 mg/dL <=150 [facility] Urea nitrogen [Mass/Vol] 29.0 mg/dL High 7.0-18.0 [facility] Urea nitrogen/Creatinine [Mass ratio] 31.9 mg/mg [facility] Laboratory - Hematology and Cell countsOrdered By: Lj Carbajal on 11-28-2024 Immature granulocytes/100 WBC (Bld) 0.3 % 0.0-0.5 [facility] Leukocytes [#/volume] correc jamal for nucleated erythrocytes in Blood by Automated counOrdered By: Lj Carbajal on 11-28-2024 WBC corrected for nucl RBC Auto (Bld) [#/Vol] 6.2 10 3/uL 4.0-11.0 [facility] Lymphocytes Auto (Bld) [#/Vo l]Ordered By: Lj Carbajal on 11-28-2024 Lymphocytes (Bld) [#/Vol] 1.5 10 3/uL 1.2-3.8 [facility] Lymphocytes/100 WBC Auto (Bl d)Ordered By: Lj Carbajal on 11-28-2024 Lymphocytes/100 WBC (Bld) 23.8 % 20.5-60.0 [facility] MCH Auto (RBC) [Entitic mass ]Ordered By: Lj Carbajal on 11-28-2024 MCH (RBC) [Entitic mass] 25.9 pg 25.9-34.0 [facility] MCHC Auto (RBC) [Mass/Vol]Or dered By: Lj Carbajal on 11-28-2024 MCHC (RBC) [Mass/Vol] 30.8 g/dL 29.9-35.2 [facility] MCV Auto (RBC) [Entitic vol] Ordered By: Lj Carbajal on 11-28-2024 MCV (RBC) [Entitic vol] 84.1 fL 80.0-94.0 [facility] Monocytes Auto (Bld) [#/Vol] Ordered By: Lj Carbajal on 11-28-2024 Monocytes (Bld) [#/Vol] 0.5 10 3/uL 0.3-0.8 [facility] Monocytes/100 WBC Auto (Bld) Ordered By: Lj Carbajal on 11-28-2024 Monocytes/100 WBC (Bld) 7.9 % 1.7-12.0 [facility] Neutrophils Auto (Bld) [#/Vo l]Ordered By: Lj Carbajal on 11-28-2024 Neutrophils (Bld) [#/Vol] 4.0 10 3/uL 1.4-6.5 [facility] Neutrophils/100 WBC Auto (Bl d)Ordered By: Lj Carbajal on 11-28-2024 Neutrophils/100 WBC (Bld) 64.5 % 43.0-75.0 [facility] No Panel InformationOrdered By: Lj Carbajal on 11-28-2024 Eosinophils # (Auto) 0.2 10 3/uL 0.0-0.7 [facility] Folate 23.80 ng/mL 8.60-58.90 [facility] Immature Granulocyte # (Auto) 0.02 10 3/uL 0.00-0.03 [facility] Phosphorus Level 3.5 mg/dL 2.6-4.7 [facility] Platelet mean volume Auto (B ld) [Entitic vol]Ordered By: Lj Carbajal on 11-28-2024 Platelet mean volume (Bld) [Entitic vol] 10.6 fL 9.5-13.5 [facility] Platelets Auto (Bld) [#/Vol] Ordered By: Lj Carbajal on 11-28-2024 Platelets (Bld) [#/Vol] 168 10 3/uL 150-450 [facility] RBC Auto (Bld) [#/Vol]Ordere d By: Lj Carbajal on 11-28-2024 RBC (Bld) [#/Vol] 3.09 10 6/uL Low 4.70-6.10 [facility] Serum or plasma albumin/glob ulin mass ratioOrdered By: Lj Carbajal on 11-28-2024 Albumin/Globulin [Mass ratio] 1.0 {ratio} [facility] Serum or plasma anion gap de terminationOrdered By: Lj Carbajal on 11-28-2024 Anion gap [Moles/Vol] 9.2 mmol/L [facility] Serum or plasma total choles terol/high density lipoprotein (HDL) cholesterol mass ratOrdered By: Lj Carbajal on 11-28-2024 Cholesterol.total/Monalisa sterol in HDL [Mass ratio] 1.8 {ratio} [facility] Comment on above: 3.3 - 4.4 LOW RISK4. 4 - 7.1 AVERAGE RISK7.1 - 11.0 MODERATE RISK>11.0 HIGH RISK 36on 11-27-2024 36 Patient's called stating Rush is very lightheaded and tired. She said she's scared to leave him alone in fear she'll come home and find him . Says his BP is always very low, around 70's/40's. I told her he needs taken to the ED for evaluation. Dr. Campo is not in the [place] office for another 4 weeks, and Rush is already scheduled that day with him. Jessica thanked me for the advice and agreed to take him to the ED. I asked her to call me with updates and I would contact Dr. Campo if needed. She verbalized understanding. Normal [facility] Basophils Auto (Bld) [#/Vol] Ordered By: Clem Daniels on 11-27-2024 Basophils (Bld) [#/Vol] 0.1 10 3/uL 0.0-0.1 [facility] Basophils/100 WBC Auto (Bld) Ordered By: Clem Daniels on 11-27-2024 Basophils/100 WBC (Bld) 0.9 % 0.2-2.0 [facility] Diagnostic impression [Inter pretation] in Specimen NarrativeOrdered By: Lj Carbajal on 11-27-2024 Diagnostic impression Molgen Hans (Unsp spec) [Interp] Comment . [facility] Comment on above: Not infected with HC V unless early or acute infection issuspected (which may be delayed in an immunocompromisedindividual), or other evidence exists to indicate HCVinfection.Performed at: - [facility] [id number] Director: Dar Young PhD, Phone: [phone] Eosinophils/100 WBC Auto (Bl d)Ordered By: Clem Daniels on 11-27-2024 Eosinophils/100 WBC (Bld) 3.0 % 0.9-7.0 [facility] Erythrocyte distribution wid th Auto (RBC) [Ratio]Ordered By: Clem Daniels on 11-27-2024 Erythrocyte distribution width (RBC) [Ratio] 17.8 % High 11.0-15.0 [facility] Globulin Calc (S) [Mass/Vol] Ordered By: Clem Daniels on 11-27-2024 Globulin (S) [Mass/Vol] 3.2 g/dL [facility] [place] Glomerular filtration rate ( GFR) estimation in non- AmericanOrdered By: Clem Daniels on 11-27-2024 GFR/1.73 sq M.predicted among non-blacks MDRD (S/P/Bld) [Vol rate/Area] 60 mL/min/{1.73_m2} >=60 mL/min/1.73m 2 [facility] Hematocrit Auto (Bld) [Volum e fraction]Ordered By: Lj Carbajal on 11-27-2024 Hematocrit (Bld) [Volume fraction] 27.0 % Low 42.0-54.0 [facility] Hemoglobin [Mass/volume] in BloodOrdered By: Lj Carbajal on 11-27-2024 Hemoglobin (Bld) [Mass/Vol] 8.2 g/dL Low 14.0-18.0 [facility] Hemoglobin.gastrointestinal [Presence] in StoolOrdered By: Clem Daniels on 11-27-2024 Hemoglobin.gastrointest inal Ql (Stl) Negative [facility] Hepatitis B virus surface Ag [Presence] in Serum or Plasma by ImmunoassayOrdered By: Lj Carbajal on 11-27-2024 HBV surface Ag IA Ql Negative Negative [facility] Iron binding capacity [Mass/ volume] in Serum or PlasmaOrdered By: Lj Carbajal on 11-27-2024 Iron binding capacity [Mass/Vol] 339.0 ug/dL 250.0-450.0 [facility] Iron saturation [Mass Fracti on] in Serum or PlasmaOrdered By: Lj Carbajal on 11-27-2024 Iron saturation [Mass fraction] 4.1 % [facility] Laboratory - Chemistry and C hemistry - challengeOrdered By: Clem Daniels on 11-27-2024 Bilirubin Ql (U) Negative NEGATIVE [facility] Glucose (U) [Mass/Vol] mg/dL Abnormal NEGATIVE [facility] Ketones Ql (U) Negative NEGATIVE [facility] pH (U) 6.0 [pH] 5.0-9.0 [facility] Specific gravity (U) [Rel density] 1.010 1.005-1.025 [facility] Urobilinogen Qn (U) 0.2 {Reilly'U}/dL 0.2-1.0 [facility] Albumin [Mass/Vol] 3.0 g/dL Low 3.4-5.0 [facility] ALP [Catalytic activity/Vol] 108 U/L 46-116 [facility] ALT [Catalytic activity/Vol] 173 U/L High 16-63 [facility] AST [Catalytic activity/Vol] 72 U/L High 15-37 [facility] Bilirubin [Mass/Vol] 0.7 mg/dL 0.2-1.0 [facility] Calcium [Mass/Vol] 8.5 mg/dL 8.5-10.1 [facility] Chloride [Moles/Vol] 106 mmol/L 98-107 [facility] CO2 [Moles/Vol] 25.8 mmol/L 21.0-32.0 [facility] Creatinine [Mass/Vol] 1.18 mg/dL 0.70-1.30 [facility] GFR/1.73 sq M.predicted MDRD (S/P/Bld) [Vol rate/Area] mL/min/{1.73_m2} >=60 mL/min/1.73m 2 [facility] Glucose [Mass/Vol] 310 mg/dL High 74-106 [facility] Magnesium [Mass/Vol] 2.2 mg/dL 1.8-2.4 [facility] Natriuretic peptide B (Bld) [Mass/Vol] 823.0 pg/mL <=1800.0 [facility] Potassium [Moles/Vol] 4.2 mmol/L 3.5-5.1 [facility] Protein [Mass/Vol] 6.2 g/dL Low 6.4-8.2 [facility] Sodium [Moles/Vol] 142 mmol/L 136-145 [facility] Urea nitrogen [Mass/Vol] 30.0 mg/dL High 7.0-18.0 [facility] Urea nitrogen/Creatinine [Mass ratio] 25.4 mg/mg [facility] Laboratory - Chemistry and C hemistry - challengeOrdered By: Lj Carbajal on 11-27-2024 Iron [Mass/Vol] 14.0 ug/dL Low 65.0-175.0 [facility] Transferrin [Mass/Vol] 279 mg/dL 177-329 [facility] Comment on above: Performed at: - [address] [id number] Director: Dar Young PhD, Phone: [phone] Laboratory - Hematology and Cell countsOrdered By: Clem Daniels on 11-27-2024 Immature granulocytes/100 WBC (Bld) 0.3 % 0.0-0.5 [facility] Laboratory - Specimen inform ationOrdered By: Clem Daniels on 11-27-2024 Appearance (U) CLEAR CLEAR [facility] Color (U) LT. YELLOW YELLOW [facility] Laboratory - UrinalysisOrder ed By: Clem Daniels on 11-27-2024 Leukocyte esterase Test strip Ql (U) Negative NEGATIVE [facility] Mucus Ql (Urine sed) NONE SEEN NONE SEEN [facility] Nitrite Ql (U) Negative NEGATIVE [facility] Protein Ql (U) Negative NEG/TRACE [facility] Leukocytes [#/volume] correc jamal for nucleated erythrocytes in Blood by Automated counOrdered By: Clem Daniels on 11-27-2024 WBC corrected for nucl RBC Auto (Bld) [#/Vol] 5.7 10 3/uL 4.0-11.0 [facility] Lymphocytes Auto (Bld) [#/Vo l]Ordered By: Clem Daniels on 11-27-2024 Lymphocytes (Bld) [#/Vol] 1.5 10 3/uL 1.2-3.8 [facility] Lymphocytes/100 WBC Auto (Bl d)Ordered By: Clem Daniels on 11-27-2024 Lymphocytes/100 WBC (Bld) 26.7 % 20.5-60.0 [facility] MCH Auto (RBC) [Entitic mass ]Ordered By: Clem Daniels on 11-27-2024 MCH (RBC) [Entitic mass] 25.1 pg Low 25.9-34.0 [facility] MCHC Auto (RBC) [Mass/Vol]Or dered By: Clem Daniels on 11-27-2024 MCHC (RBC) [Mass/Vol] 29.3 g/dL Low 29.9-35.2 [facility] MCV Auto (RBC) [Entitic vol] Ordered By: Clem Daniels on 11-27-2024 MCV (RBC) [Entitic vol] 85.5 fL 80.0-94.0 [facility] Monocytes Auto (Bld) [#/Vol] Ordered By: Clem Daniels on 11-27-2024 Monocytes (Bld) [#/Vol] 0.5 10 3/uL 0.3-0.8 [facility] Monocytes/100 WBC Auto (Bld) Ordered By: Clem Daniels on 11-27-2024 Monocytes/100 WBC (Bld) 7.8 % 1.7-12.0 [facility] Neutrophils Auto (Bld) [#/Vo l]Ordered By: Clem Daniels on 11-27-2024 Neutrophils (Bld) [#/Vol] 3.5 10 3/uL 1.4-6.5 [facility] Neutrophils/100 WBC Auto (Bl d)Ordered By: Clem Daniels on 11-27-2024 Neutrophils/100 WBC (Bld) 61.3 % 43.0-75.0 [facility] No Panel InformationOrdered By: Clem Daniels on 11-27-2024 Urine Bacteria NONE SEEN #/HPF NONE SEEN [facility] Urine Culture Reflexed NO [facility] Urine Occult Blood Negative NEGATIVE [facility] Urine Other Casts NONE SEEN #/LPF NONE SEEN [facility] Urine Other Crystals None Seen #/HPF None Seen [facility] Urine RBC 0-2 #/HPF 0-2 [facility] Urine Squamous Epithelial Cells RARE #/LPF NONE/RARE [facility] Urine WBC 0-2 #/HPF Abnormal NONE SEEN [facility] Eosinophils # (Auto) 0.2 10 3/uL 0.0-0.7 [facility] Immature Granulocyte # (Auto) 0.02 10 3/uL 0.00-0.03 [facility] Troponin I High Sensitivity 14.7 pg/mL 4.0-76.1 [facility] Comment on above: CUT-OFF POINTS HAVE BEEN ESTABLISHED BASED ON THE FOURTHUNIVERSAL DEFINITION OF MYOCARDIAL INFARCTION. THE UPPERREFERENCE LIMIT (URL) OF TROPONIN, DEFINED THE 99THPERCENTILE OF cTnI DISTRIBUTION IN A REFERENCE POPULATION,HAS BEEN CONFIRMED THE DECISION THRESHOLD FOR MIDIAGNOSIS.99TH PERCENTILE = 76.2 PG/MLNOTE: HIGH-SENSITIVITY TROPONIN ASSAY IS NOT INTENDED TO BEUSED IN ISOLATION BUT SHOULD BE INTERPRETED IN CONJUNCTIONWITH OTHER DIAGNOSTIC AND CLINICAL INFORMATION. No Panel InformationOrdered By: Lj Carbajal on 11-27-2024 Hepatitis A IgM Antibody Negative Negative [facility] Comment on above: A negative anti-HAV IgM result suggests no recent orcurrent HAV infection. Hepatitis B Core IgM Antibody Negative Negative [facility] Phosphorus Level 4.0 mg/dL 2.6-4.7 [facility] Platelet mean volume Auto (B ld) [Entitic vol]Ordered By: Clem Daniels on 11-27-2024 Platelet mean volume (Bld) [Entitic vol] 10.9 fL 9.5-13.5 [facility] Platelets Auto (Bld) [#/Vol] Ordered By: Clem Daniels on 11-27-2024 Platelets (Bld) [#/Vol] 178 10 3/uL 150-450 [facility] RBC Auto (Bld) [#/Vol]Ordere d By: Clem Daniels on 11-27-2024 RBC (Bld) [#/Vol] 2.83 10 6/uL Low 4.70-6.10 [facility] Reticulocytes/100 RBC Auto ( Bld)Ordered By: Lj Carbajal on 11-27-2024 Reticulocytes/100 RBC (Bld) 2.53 % 0.60-3.10 [facility] Serum or plasma albumin/glob ulin mass ratioOrdered By: Clem Daniels on 11-27-2024 Albumin/Globulin [Mass ratio] 0.9 {ratio} [facility] Serum or plasma anion gap de terminationOrdered By: Clem Daniels on 11-27-2024 Anion gap [Moles/Vol] 14.4 mmol/L [facility] Serum or plasma hepatitis C virus antibody signal/cutoff ratio by immunoassay (relatiOrdered By: Lj Carbajal on 11-27-2024 HCV Ab Signal/Cutoff IA [Rel units/Vol] Non-Reactive Non Reactive [facility] Orders Onlyon 11-21-2024 Orders Only [id number] Kimmy Mcarthur 1945 M Date Provider Department Center 11/21/2024 [id number], HISTORICAL EBONY Roland Family History Problem Relation Age of Onset Cancer Father Diabetes Father Family Status - Relation Status Age at Father Normal [facility] Office Visiton 10-09-2024 Follow-up visit [id number] Kimmy Mcarthur 1945 M Date Provider Department Center 10/09/2024 271-NATASHA CAMPO EBONY Roland Family History Problem Relation Age of Onset Cancer Father Diabetes Father Family Status - Relation Status Age at Father Level of Service:33390 [place] OFFICE/OUTPATIENT ESTABLISHED MOD MDM 30 MIN [facility] 36on 08-16-2024 36 Pt informed they will call sleep study place as they never followed up w sleep study, they will stop amlodipine [facility] Ambulatory Visit Summaryon 0 07-18-2024 Ambulatory Visit Summary Ambulatory Visit Summary KIMMY MCARTHUR :1945 Visit Date:07/18/2024 Ambulatory Visit Instructions Your Diagnosis BPH with urinary obstruction Family history of prostate cancer ED (erectile dysfunction) Your Care Team Attending Physician - Deja Perez MD Primary Care Physician - MARISOL BOYCE CNP [...] Following Appointments Follow Up with Chris QUINTANA, GEORGE Mitchell, URO When: Where: Medications What How Much [...] urine out (more content not included)... Normal [facility] Urology Office/Clinic Noteon 07-18-2024 Urology Office/Clinic [...] is desired Follow-up With When Contact Information Deja Perez MD, URL, URO Additional Instructions: PRN Patient Education Benign Prostatic Hyperplasia I, Amalia Herring, personally scribed for Dr. Perez on 07/18/2024 09:13:10. . Documentation recorded by the scribe, Amalia Herring, accurately reflects the services(s) I performed and [...] 200 mg (more content not included)... Normal [facility] Comment on above: Result Comment: Elec tronically Signed By: Deja Perez MD\.br\Date and Time Signed: 07/18/24 09:19 EDT\.br\Electronically Co-Signed By: Amalia Herring.br\Date and Time Co-Signed: 07/18/24 09:13 EDT CBC w/ Auto Diffon 5 Basophils/100 WBC (Bld) 0.8 % Normal 0.0-2.0 [facility] Comment on above: Performed By: #### 2 [id number] #### [facility] [address] [place] [address] Erythrocyte distribution width (RBC) [Ratio] 15.6 % High 10.9-14.2 [facility] Comment on above: Performed By: #### 2 [id number] #### [facility] [address] [place] [address] Hematocrit (Bld) [Volume fraction] 32.5 % Low 37.7-49.0 [facility] Comment on above: Performed By: #### 2 [id number] #### [facility] [address] [place] [address] Lymphocytes/100 WBC (Bld) 22.2 % Normal 14.0-50.0 [facility] Comment on above: Performed By: #### 2 [id number] #### [facility] [address] [place] [address] Neutrophils/100 WBC (Bld) 65.2 % Normal 36.0-75.0 [facility] Comment on above: Performed By: #### 2 [id number] #### [facility] [address] [place] [address] Platelet mean volume (Bld) [Entitic vol] 8.3 fL Normal 6.4-10.8 [facility] Comment on above: Performed By: #### 2 [id number] #### [facility] [address] [place] [address] Basophils/Leukocytes Auto (Bld) [Pure # fraction] 0.0 E9/L Normal 0.0-0.2 [facility] Comment on above: Performed By: #### 2 [id number] #### [facility] [address] [place] [address] Eosinophils (Bld) [#/Vol] 0.2 E9/L Normal 0.0-0.5 [facility] Comment on above: Performed By: #### 2 [id number] #### [facility] [address] [place] [address] Eosinophils/100 WBC (Bld) 3.5 % Normal 0.0-8.0 [facility] Comment on above: Performed By: #### 2 [id number] #### [facility] [address] [place] [address] Hemoglobin (Bld) [Mass/Vol] 11.1 g/dL Low 13.5-17.5 [facility] Comment on above: Performed By: #### 2 [id number] #### [facility] [address] [place] [address] Lymphocytes (Bld) [#/Vol] 1.3 E9/L Normal 1.0-4.0 [facility] Comment on above: Performed By: #### 2 [id number] #### [facility] [address] [place] [address] MCH (RBC) [Entitic mass] 30.5 pg Normal 27.0-34.0 [facility] Comment on above: Performed By: #### 2 [id number] #### [facility] [address] [place] [address] MCHC (RBC) [Mass/Vol] 34.1 g/dL Normal 31.4-36.0 [facility] Comment on above: Performed By: #### 2 [id number] #### [facility] [address] [place] [address] MCV (RBC) [Entitic vol] 89.5 fL Normal 80.0-100.0 F [facility] Comment on above: Performed By: #### 2 [id number] #### [facility] [address] [place] [address] Monocytes (Bld) [#/Vol] 0.5 E9/L Normal 0.2-1.0 F [facility] Comment on above: Performed By: #### 2 [id number] #### [facility] [address] [place] [address] Neutrophils (Bld) [#/Vol] 3.8 E9/L Normal 2.0-7.5 [facility] Comment on above: Performed By: #### 2 [id number] #### [facility] [address] [place] [address] Platelet 203.0 E9/L Normal 150.0-500.0 [facility] Comment on above: Performed By: #### 2 [id number] #### [facility] [address] [place] [address] RBC (Bld) [#/Vol] 3.6 E12/L Low 4.3-5.9 [facility] Comment on above: Performed By: #### 2 [id number] #### [facility] [address] [place] [address] WBC corrected for nucl RBC Auto (Bld) [#/Vol] 5.8 E9/L Normal 4.0-11.0 [facility] Comment on above: Performed By: #### 2 [id number] #### [facility] [address] [place] [address] CHEMISTRYOrdered By: SYSTEM SYSTEM on 07-11-2024 Albumin [...] Chem Triglyceride [Mass/Vol] 68 mg/dL Normal <=149mg/dL R emisol Chem Urea nitrogen [Mass/Vol] 28 mg/dL High [...] methods and specificity. Values obtained with different warp coiler's assays cannot be used interchangeably. The methodology used to obtain this result was chemiluminescence using [employer]'s Access Hybritech PSA reagent and Access Hybritech [...] for this result was chemiluminescence using [employer]'s Access Hy[employer] PSA reagent. CHEMISTRYOrdered By: Chrissy Holder on 07-11-2024 HbA1c (Bld) [Mass fraction] 6.3 % High <=5.9% [facility] [place] ChemAutoSS CMPon 07-11-2024 Albumin [Mass/Vol] 4.1 g/dL Normal 3.3-5.0 [facility] Comment on above: Performed By: #### 2 [id number] #### [facility] [address] [place] [address] Albumin/Globulin (S) [Mass conc ratio] 1.8 Normal 1.1-2.2 [facility] Comment on above: Performed By: #### 2 [id number] #### [facility] [address] [place] [address] ALP [Catalytic activity/Vol] 73 Int._Unit/L Normal 21-98 [facility] Comment on above: Performed By: #### 2 [id number] #### [facility] [address] [place] [address] ALT No additional P-5'-P [Catalytic activity/Vol] 16 Int._Unit/L Normal 6-46 [facility] Comment on above: Performed By: #### 2 [id number] #### [facility] [address] [place] [address] Anion gap [Moles/Vol] 12 mmol/L Normal 6-16 [facility] Comment on above: Performed By: #### 2 [id number] #### [facility] [address] [place] [address] AST [Catalytic activity/Vol] 15 Int._Unit/L Normal 5-43 [facility] Comment on above: Performed By: #### 2 [id number] #### [facility] [address] [place] [address] Bilirubin [Mass/Vol] 0.9 mg/dL Normal 0.0-1.1 [facility] Comment on above: Performed By: #### 2 109136 #### [facility] [address] [place] [address] Calcium [Mass/Vol] 9.2 mg/dL Normal 8.9-11.1 [facility] Comment on above: Performed By: #### 2 [id number] #### [facility] [address] [place] [address] Chloride [Moles/Vol] 106 mmol/L Normal 101-111 [facility] Comment on above: Performed By: #### 2 [id number] #### [facility] [address] [place] [address] CO2 [Moles/Vol] 24 mmol/L Normal 21-31 [facility] Comment on above: Performed By: #### 2 [id number] #### [facility] [address] [place] [address] Creatinine [Mass/Vol] 0.9 mg/dL Normal 0.5-1.3 [facility] Comment on above: Performed By: #### 2 [id number] #### [facility] [address] [place] [address] Globulin (S) [Mass/Vol] 2.3 g/dL Normal 1.4-4.0 [facility] Comment on above: Performed By: #### 2 [id number] #### [facility] [address] [place] [address] Glucose [Mass/Vol] 119 mg/dL Normal 55-199 [facility] Comment on above: Performed By: #### 2 648782 #### [facility] [address] [place] [address] Potassium [Moles/Vol] 4.0 mmol/L Normal 3.5-5.3 [facility] Comment on above: Performed By: #### 2 958544 #### [facility] [address] [place] [address] Protein [Mass/Vol] 6.4 g/dL Normal 6.0-7.8 [facility] Comment on above: Performed By: #### 2 [id number] #### [facility] [address] [place] [address] Sodium [Moles/Vol] 138 mmol/L Normal 135-145 [facility] Comment on above: Performed By: #### 2 703111 #### [facility] [address] [place] [address] Urea nitrogen [Mass/Vol] 28 mg/dL High 5-21 [facility] Comment on above: Performed By: #### 2 [id number] #### [facility] [address] [place] [address] Urea nitrogen/Creatinine [Mass ratio] 31 No Units High 10-20 [facility] Comment on above: Performed By: #### 2 [id number] #### [facility] [address] [place] [address] [facility] [place] CBC W/ AUTO DIFFon - EOSINOPHILS/100 LEUKOCYTES:NFR:PT:BLD:Q N:AUTOMATED COUNT 3.5 % 0.0 - 8.0 % [facility] EOSINOPHILS:NCNC:PT:BLD :QN: 0.2 [facility] BASOPHILS/LEUKOCYTES:NF R.DF:PT:BLD:QN:AUTOMATE D COUNT 0 [facility] ERYTHROCYTE MEAN CORPUSCULAR HEMOGLOBIN CONCENTRATION:MCNC:PT:R BC:QN 34.1 [facility] ERYTHROCYTE MEAN CORPUSCULAR HEMOGLOBIN:ENTMASS:PT:R BC:QN 30.5 pg 27.0 - 34.0 pg [facility] ERYTHROCYTE MEAN CORPUSCULAR VOLUME:ENTVOL:PT:RBC:QN :AUTOMATED COUNT 89.5 fL 80.0 - 100.0 fL [facility] ERYTHROCYTES:NCNC:PT:BL D:QN:AUTOMATED COUNT 3.6 Low [facility] HEMOGLOBIN:MCNC:PT:BLD: QN: 11.1 Low [facility] LEUKOCYTES 5.8 [facility] MONOCYTES:NCNC:PT:BLD:Q N:AUTOMATED COUNT 0.5 [facility] NEUTROPHILS:NCNC:PT:BLD :QN:AUTOMATED COUNT 3.8 [facility] Interpretation and review of laboratory results Abnormal [facility] LYMPHOCYTES:NCNC:PT:BLD :QN: 1.3 [facility] Platelets (Bld) [#/Vol] 203 10*3/uL [facility] Original Ordering Provider: [facility]CE [facility] HEMATOLOGYOrdered By: SYSTEM SYSTEM on 07-11-2024 [...] Normal 4.0 - 11.0 E9/L Remisol Heme [id number] 07-11-2024 HbA1c (Bld) [Mass fraction] 6.3 % High <=5.9 [facility] Comment on above: Performed By: #### 7 [id number] #### [facility] [address] [place] [address] Ironon 07-11-2024 Iron [Mass/Vol] 38 microgram/dL Normal 35-153 [facility] Comment on above: Performed By: #### 2 [id number] #### [facility] [address] [place] [address] Laboratory - Chemistry and C hemistry - challengeOrdered By: SYSTEM SYSTEM on 07-11-2024 Bilirubin Ql (U) Negative Normal Negativemg/ d L [facility] UA Auto SS Glucose Ql (U) 4+ mg/dL Invalid Interpretation Code Negativemg/d L FT UA Auto SS pH (U) 5.5 *NA* [...] (U) Clear (07/11/24 1:55 PM) Normal Clear [facility] UA Auto SS Laboratory - UrinalysisOrder ed By: SYSTEM SYSTEM on 07-11-2024 Hemoglobin Auto test strip (U) [Mass/Vol] Negative Normal Negativemg/d L FT UA Auto SS Ketones Auto test strip [...] 07-11-2024 Cholesterol [Mass/Vol] 96 mg/dL Low 120-200 [facility] Comment on above: Performed By: #### 2 [id number] #### [facility] [address] [place] [address] Cholesterol in HDL [Mass/Vol] 38 mg/dL Invalid Interpretation Code [facility] Comment on above: Result Comment: '>= 60 LOW RISK' '<= 40 HIGH RISK' Performed By: #### 2 [id number] #### [facility] [address] [place] [address] Cholesterol in LDL [Mass/Vol] 44 mg/dL Normal <=129 [facility] Comment on above: Performed By: #### 2 [id number] #### [facility] [address] [place] [address] Cholesterol in VLDL [Mass/Vol] 14 mg/dL Normal 7-40 [facility] Comment on above: Performed By: #### 2 [id number] #### [facility] [address] [place] [address] Triglyceride [Mass/Vol] 68 mg/dL Normal <=149 F [facility] Comment on above: Performed By: #### 2 [id number] #### [facility] [address] [place] [id number] No Panel InformationOrdered By: Talita Candelario on 07-11-2024 UA Spec Desc Clean Catch (07/11/24 1:55 PM) Normal [facility] [place] UA Auto SS U Microalbon 07-11-2024 Albumin DL <= 20 mg/L (U) [Mass/Vol] 0.8 mg/dL Normal 0.0-1.9 [facility] Comment on above: Performed By: #### 1 [id number] #### [facility] [address] [place] [address] UA with Cult Rflxon 07-12-19 25 Bilirubin Ql (U) Negative Normal Negative [facility] Comment on above: Performed By: #### 4 [id number] #### [facility] [address] [place], [place] [id number] Order Comment: Farhan daly, screen shot this page and put a note on it to be credited.07/11/2024 18:05:55 EDT [id number] Performed By: #### 4 [id number] #### [facility] [address] [place] [address] Clarity (U) Clear Normal Clear [facility] Comment on above: Performed By: #### 4 [id number] #### [facility] [address] [place] [address] Order Comment: Farhan daly, screen shot this page and put a note on it to be credited.07/11/2024 18:05:55 EDT [id number] Performed By: #### 4 [id number] #### [facility] [address] [place] [address] Color (U) Yellow Normal Yellow [facility] Comment on above: Result Comment: Micr oscopic readings are only performed on those samples that meet specific criteria set forth by [facility]. Performed By: #### 4 [id number] #### [facility] [address] [place] [address] Order Comment: Farhan daly, screen shot this page and put a note on it to be credited.07/11/2024 18:05:55 EDT [id number] Performed By: #### 4 [id number] #### [facility] [address] [place] [address] Glucose Ql (U) 4+ mg/dL Abnormal Negative [facility] Comment on above: Performed By: #### 4 [id number] #### [facility] [address] [place] [address] Order Comment: Farhan daly, screen shot this page and put a note on it to be credited.07/11/2024 18:05:55 EDT [id number] Performed By: #### 4 [id number] #### [facility] [address] [place] [address] Hemoglobin Auto test strip (U) [Mass/Vol] Negative Normal Negative [facility] Comment on above: Performed By: #### 4 [id number] #### [facility] [address] [place] [address] Order Comment: Farhan daly, screen shot this page and put a note on it to be credited.07/11/2024 18:05:55 EDT [id number] Performed By: #### 4 [id number] #### [facility] [address] [place] [address] Ketones Auto test strip Ql (U) Negative Normal Negative [facility] Comment on above: Performed By: #### 4 [id number] #### [facility] [address] [place] [address] Order Comment: Farhan daly, screen shot this page and put a note on it to be credited.07/11/2024 18:05:55 EDT [id number] Performed By: #### 4 [id number] #### [facility] [address] [place] [address] Leukocyte esterase Auto test strip Ql (U) Negative Normal Negative [facility] Comment on above: Performed By: #### 4 [id number] #### [facility] [address] [place] [address] Order Comment: Dupli shweta order, screen shot this page and put a note on it to be credited.07/11/2024 18:05:55 EDT [id number] Performed By: #### 4 [id number] #### [facility] [address] [place] [address] Nitrite Auto test strip Ql (U) Negative Normal Negative [facility] Comment on above: Performed By: #### 4 [id number] #### [facility] [address] [place] [address] Order Comment: Dupli shweta order, screen shot this page and put a note on it to be credited.07/11/2024 18:05:55 EDT [id number] Performed By: #### 4 [id number] #### [facility] [address] [place] [address] pH (U) 5.5 [pH] Invalid Interpretation Code 5.0-9.0 [facility] Comment on above: Performed By: #### 4 [id number] #### [facility] [address] [place] [address] Order Comment: Dupli shweta order, screen shot this page and put a note on it to be credited.07/11/2024 18:05:55 EDT [id number] Performed By: #### 4 [id number] #### [facility] [address] [place] [address] Protein Ql (U) Negative Normal Negative [facility] Comment on above: Performed By: #### 4 [id number] #### [facility] [address] [place] [address] Order Comment: Dupli shweta order, screen shot this page and put a note on it to be credited.07/11/2024 18:05:55 EDT [id number] Performed By: #### 4 [id number] #### [facility] [address] [place], [place] [address] Specific gravity (U) [Rel density] 1.023 Invalid Interpretation Code 1.005-1.030 [facility] Comment on above: Performed By: #### 4 [id number] #### [facility] [address] [place] [address] Order Comment: Farhan daly, screen shot this page and put a note on it to be credited.07/11/2024 18:05:55 EDT [id number] Performed By: #### 4 [id number] #### [facility] [address] [place] [address] Urobilinogen (U) [Mass/Vol] Negative Normal Negative [facility] Comment on above: Performed By: #### 4 [id number] #### [facility] [address] [place] [address] Order Comment: Farhan daly, screen shot this page and put a note on it to be credited.07/11/2024 18:05:55 EDT [id number] Performed By: #### 4 [id number] #### [facility] [address] [place] [address] Type of Urine collection method Clean Catch Normal [facility] Comment on above: Performed By: #### 4 [id number] #### [facility] [address] [place] [address] Order Comment: Farhan daly, screen shot this page and put a note on it to be credited.07/11/2024 18:05:55 EDT [id number] Performed By: #### 4 [id number] #### [facility] [address] [place] [address] URINALYSISOrdered By: SYSTEM SYSTEM on 07-11-2024 Color (U) Yellow 1 (07/11/24 1:55 PM) Normal Yellow [facility] [place] UA Auto SS Comment on above: Interpretive Data: M icroscopic readings are only performed on those samples that meet specific criteria set forth by [facility]. Color (U) Yellow 2 (07/11/24 1:55 PM) Normal Yellow [facility] [place] UA Auto SS Comment on above: Interpretive Data: M icroscopic readings are only performed on those samples that meet specific criteria set forth by [facility]. eGFRon 07-11-2024 eGFR 87 mL/min/1.73 m2 Normal >=59 [facility] Comment on above: Performed By: #### 1 [id number] #### [facility] [address] [place] [address] Aaron 04-11-2024 L Specimen: [id number] Received: 04/12/24 Status: SULY Mendez Num: [id number] Spec Type: Surgical Subm Dr: Sabino Mauricio DO Tissues: A Esophagus Biopsy (DISTAL ESOPHAGUS BX X2) B Colon Biopsy (RECTAL SIGMOID JUNCTION POLY) Procedures: HE/Polly, Gross/Micro L4/2 Age/ Patient Sex Location Account Attending Physician Kimmy Mcarthur 78/M [place] [id number] Sabino Mauricio DO SPEC NUM: [id number] RECD: 04/12/24 STATUS: SULY MENDEZ NUM: [id number] MALKA: 04/11/[address] [facility] [address]: Sabino Mauricio DO ENTERED: 04/12/24-[address] [facility] [address]: Ed,Lab SPEC TYPE: Surgical DEPT: BRAIN DICKERSON ENTERED BY: [id number] RECV BY: [id number] ORDERED: HE/4, Gross/Micro L4/2 ORDERED: HE/4, Gross/Micro [...] submitted in a single cassette. (1, ns, BS47-30 A) Part B is received in formalin labeled with the patients name, date of , and rectal sigmoid junction polypectomy is a patel-ivan, focally erythematous, friable, 0.4 cm in greatest dimension polypoid fragment. The specimen is entirely submitted in a single cassette. (1, ns, BS2530 B) JG Specimen: [id number] Received: 04/12/24 Status: SULY Mendez Num: [id number] Spec Type: Surgical Subm Dr: Sabino Mauricio DO Tissues: A Esophagus Biopsy (DISTAL ESOPHAGUS BX X2) B Colon Biopsy (RECTAL SIGMOID JUNCTION POLY) Procedures: HE/4, Gross/Micro L4/2 Patient: AdamsKimmy prasad Laura [id number] (Continued) Specimen: [id number] Received: 04/12/24 (Continued) Signed (signature on file) Geetha Sanon MD 04/13/24 1225 Specimen: [id number] Received: 04/12/24 Status: SULY Mendez Num: [id number] Spec Type: Surgical Subm Dr: Sabino Mauricio DO Tissues: A Esophagus Biopsy (DISTAL ESOPHAGUS BX X2) B Colon Biopsy (RECTAL SIGMOID JUNCTION POLY) Procedures: HE/4, Gross/Micro L4/2 Patient: Kimmy Mcarthur [id number] (Continued) Specimen: [id number] Received: 04/12/24 (Continued) Microscopic Description A B:Microscopic examination is performed. CPT Codes 65345 x2 Specimen: [id number] Received: 04/12/24 Status: SULY Mendez Num: [id number] Spec Type: Surgical Subm Dr: Sabino Mauricio DO Tissues: A Esophagus Biopsy (DISTAL ESOPHAGUS BX X2) B Colon Biopsy (RECTAL SIGMOID JUNCTION POLY) Procedures: HE/4, Gross/Micro L4/2 Patient: Kimmy Mcarthur [id number] (Continued) Signed (signature on file) Jasiel Sanon MD 04/13/24 1225 Normal [facility] Office Visiton 03-14-2024 Follow-up visit [id number] Kimmy Mcarthur 1945 M Date Provider Department Center 03/14/2024 [address] [facility] Family History Problem Relation Age of Onset Cancer Father Diabetes Father Family Status - Relation Status Age at Father Level of Service:44986 [place] OFFICE/OUTPATIENT ESTABLISHED MOD MDM 30 MIN Normal [facility] MLR HEMOGLOBIN A1Con 024 Glucose [Mass/Vol] 180 mg/dL [facility] HbA1c (Bld) [Mass fraction] 7.9 % High 4.5 - 6.2 % [facility] Comment on above: ADA RECOMMENDED LIMI T 4.0 - 6.0 ADA THERAPEUTIC TARGET < 7.0 ACTION SUGGESTED > 7.0 Interpretation and review of laboratory results Abnormal [facility] 36on 02-13-2024 36 His LDL from 12/07/2023 is 46. Would you still like for me to try to get Leqvio approved for him? Normal [facility] XR SPINE THORACIC 3 VWSon XR SPINE THORACIC 3 VWS XR SPINE THORACI C 3 VWS XR SPINE THORACIC 3 VWS: [...] Jami Ko MD on 01/11/2024 4:27 PM [facility] 36on 01-04-2024 36 PCP Marisol [...] taking, can you please call Marisol at [phone] and let her know. THANKS!!! 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 There were no other areas of concern. I would recommend continued medical therapy with no interventions needed at this time. Thank you Patient's made aware. Normal [facility] Basic metabolic 1998 panelon 11-29-2023 Anion gap [Moles/Vol] 8 mmol/L 5 - 15 mmol/L [facility] Calcium [Mass/Vol] 9.2 mg/dL 8.5 - 10. 5 mg/dL [facility] Chloride [Moles/Vol] 104 mmol/L 98 - 10 9 mmol/L [facility] CO2 [Moles/Vol] 27 mmol/L 22 - 32 mmol/L [facility] Creatine [Mass/Vol] 1.01 mg/dL 0.60 - 1 .30 mg/dL [facility] Comment on above: METHOD TRACEABLE TO IDMI STANDARD GFR/1.73 sq M.predicted among non-blacks MDRD (S/P/Bld) [Vol rate/Area] 77 mL/min/{1.73_m2} - PINF [facility] Comment on above: Reported eGFR is based on the CKD-EPI 2020 equation that does not use a race coefficient. PERFORMED AT [facility] [address],[place] [address] Glucose [Mass/Vol] 187 mg/dL High 65 - 99 mg/dL [facility] Interpretation and review of laboratory results Abnormal [facility] Potassium [Moles/Vol] 4.2 mmol/L 3.5 - 5.0 mmol/L [facility] Sodium [Moles/Vol] 139 mmol/L 134 - 146 mmol/L [facility] Urea nitrogen [Mass/Vol] 22 mg/dL 5 - 27 mg/dL [facility] Comprehensive metabolic pane aaron 05-04-2023 Albumin [Mass/Vol] 4.0 g/dL 3.2 - 5.3 g/dL [facility] ALP [Catalytic activity/Vol] 89 U/L 39 - 130 U/L [facility] ALT No additional P-5'-P [Catalytic activity/Vol] 15 U/L 0 - 40 U/L [facility] Anion gap [Moles/Vol] 9 mmol/L 5 - 15 mmol/L [facility] AST [Catalytic activity/Vol] 13 U/L 0 - 41 U/L [facility] Bilirubin [Mass/Vol] 1.1 mg/dL 0.3 - 1 .2 mg/dL [facility] Calcium [Mass/Vol] 8.9 mg/dL 8.5 - 10. 5 mg/dL [facility] Chloride [Moles/Vol] 104 mmol/L 98 - 10 9 mmol/L [facility] CO2 [Moles/Vol] 28 mmol/L 22 - 32 mmol/L [facility] Creatine [Mass/Vol] 0.80 mg/dL 0.60 - 1 .30 mg/dL [facility] Comment on above: METHOD TRACEABLE TO [facility] STANDARD GFR/1.73 sq M.predicted among non-blacks MDRD (S/P/Bld) [Vol rate/Area] mL/min/{1.73_m2} - PINF [facility] Comment on above: Reported eGFR is based on the CKD-EPI 2020 equation that does not use a race coefficient. PERFORMED AT [facility] [address],[place] [address] Glucose [Mass/Vol] 90 mg/dL 65 - 99 mg/dL [facility] Potassium [Moles/Vol] 3.2 mmol/L Low 3.5 - 5.0 mmol/L [facility] Protein [Mass/Vol] 6.3 g/dL 6.0 - 8.0 g/dL [facility] Sodium [Moles/Vol] 141 mmol/L 134 - 146 mmol/L [facility] Urea nitrogen [Mass/Vol] 20 mg/dL 5 - 27 mg/dL [facility] No Panel Informationon 05-04 Interpretation and review of laboratory results Abnormal [facility] Urinalysis, manual onlyon Bilirubin Ql (U) Negative Negative [facility] Color (U) YELLOW YELLOW [facility] Epithelial cells Auto (Urine sed) [#/Area] <1 [facility] Glucose (U) [Mass/Vol] mg/dL Abnormal Negat bossman mg/dL [facility] Hemoglobin Auto test strip Ql (U) Negative Negative [facility] Hyaline casts (Urine sed) [#/Area] 1 /[LPF] [facility] Ketones (U) [Mass/Vol] Negative Negat bossman mg/dL [facility] Leukocyte esterase Auto test strip Ql (U) Negative Negative [facility] Comment on above: HIGH CONCENTRATIONS OF GLUCOSE MAY DECREASE THE REACTIVITY OF THE DIPSTICK LEUKOCYTE TEST PAD. Mucus Ql (Urine sed) PRESENT Abnormal NONE [facility] Nitrite Auto test strip Ql (U) Negative Negative [facility] pH (U) 5.5 [pH] 5.0 - 8.5 [facility] Protein (U) [Mass/Vol] Trace Abnormal Negat bossman mg/dL [facility] RBC Auto (Urine sed) [#/Area] 1 [facility] Specific gravity Refractometry automated (U) [Rel density] 1.023 1.003 - 1.035 [facility] Turbidity Ql (U) CLEAR CLEAR [facility] Urobilinogen Qn (U) <1.1 [facility] WBC Auto (Urine sed) [#/Area] 1 [facility] CBC AUTO DIFFon 06-11-2022 BASO # 0.0 103/ul Normal 0.0-0.1 [facility] Comment on above: Performed By: #### C BC #### [facility] [address] [address] [address] Enoch Setin Basophils/100 WBC (Bld) 0.6 % Normal 0.2-2.0 [facility] Comment on above: Performed By: #### C BC #### [facility] [address] [address] [address] Enoch Stein EO # 0.2 103/ul Normal 0.0-0.7 [facility] Comment on above: Performed By: #### C BC #### [facility] [address] [address] [address] Enoch Stein Eosinophils/100 WBC (Bld) 2.9 % Normal 0.9-7.0 [facility] Comment on above: Performed By: #### C BC #### [facility] [address] [address] [address] Enoch Stein Erythrocyte distribution width (RBC) [Ratio] 13.7 % Normal 11.0-15.0 [facility] Comment on above: Performed By: #### C BC #### [facility] [address] [place] [address] Dr. Enoch Stein Hematocrit (Bld) [Volume fraction] 35.6 % Critically low 42.0-54.0 [facility] Comment on above: Performed By: #### C BC #### [facility] [address] [address] [address] Enoch Stein Hemoglobin (Bld) [Mass/Vol] 11.7 g/dL Critically low 14.0-18.0 [facility] Comment on above: Performed By: #### C BC #### [facility] [address] [address] [address] Enoch Stein IG # 0.03 10e3/ul Normal 0.00-0.03 [facility] Comment on above: Performed By: #### C BC #### [facility] [address] [place] [address] Dr. Enoch Stein IG % 0.5 % Normal 0.0-0.5 [facility] Comment on above: Performed By: #### C BC #### [facility] [address] [place] [address] Dr. Enoch Stein LYMPH # 2.2 103/ul Normal 1.2-3.8 [facility] Comment on above: Performed By: #### C BC #### [facility] [address] [place] [address] Dr. Enoch Stein Lymphocytes/100 WBC (Bld) 35.4 % Normal 20.5-60.0 [facility] Comment on above: Performed By: #### C BC #### [facility] [address] [place] [address] Dr. Enoch Stein MANUAL DIFF REQ NO Normal [facility] Comment on above: Performed By: #### C BC #### [facility] [address] [place] [address] Dr. Enoch Stein MCH (RBC) [Entitic mass] 30.5 pg Normal 25.9-34.0 [facility] Comment on above: Performed By: #### C BC #### [facility] [address] [place] [address] Dr. Enoch Stein MCHC (RBC) [Mass/Vol] 32.9 g/dL Normal 29.9-35.2 [facility] Comment on above: Performed By: #### C BC #### [facility] [address] [place] [address] Dr. Enoch Stein MCV (RBC) [Entitic vol] 92.7 fL Normal 80.0-94.0 [facility] Comment on above: Performed By: #### C BC #### [facility] [address] [place] [address] Dr. Enoch Stein MONO # 0.5 103/ul Normal 0.3-0.8 [facility] Comment on above: Performed By: #### C BC #### [facility] [address] [address] [address] Enoch Stein Monocytes/100 WBC (Bld) 7.6 % Normal 1.7-12.0 [facility] Comment on above: Performed By: #### C BC #### [facility] [address] [address] [address] Enoch Stein NEUT # 3.3 103/ul Normal 1.4-6.5 [facility] Comment on above: Performed By: #### C BC #### [facility] [address] [address] [address] Enoch Stein Neutrophils/100 WBC (Bld) 53.0 % Normal 43.0-75.0 [facility] Comment on above: Performed By: #### C BC #### [facility] [address] [place] [address] Dr. Enoch Stein Platelet mean volume (Bld) [Entitic vol] 9.4 fL Critically low 9.5-13.5 [facility] Comment on above: Performed By: #### C BC #### [facility] [address] [address] [address] Enoch Stein PLT 225 103/ul Normal 150-450 [facility] Comment on above: Performed By: #### C BC #### [facility] [address] [place] [address] Dr. Enoch Stein RBC 3.84 106/ul Critically low 4.70-6.10 [facility] Comment on above: Performed By: #### C BC #### [facility] [address] [address] [address] Enoch Stein WBC 6.2 103/ul Normal 4.0-11.0 [facility] Comment on above: Performed By: #### C BC #### [facility] [address] [place] [address] Dr. Enoch Stein ECHOCARDIO M/2D COMPLETEon 0 06-11-2022 ECHOCARDIO M/2D COMPLETE Patient: KIMMY MCARTHUR Exam Date: 06/11/2022 : 1945 Gender:M Ordering : MARCO CONDON Admission #: [id number] Family : [facility] Order #: [id number] CLICK HERE TO VIEW EXAM ECHOCARDIOGRAM REPORT PROCEDURE: CARDIO PULMONARY ECHOCARDIO M/2D COMP INDICATIONS: Dyspnea on exertion, post-COVID chronic dyspnea, CT, PTCA, hypertension, diabetes COMPARISON: None. DESCRIPTION: COMPLETE [...] M.D. on 06/11/2022 at 14:32 Normal [facility] FERRITINon 06-11-2022 Ferritin [Mass/Vol] 52.0 ng/mL Normal 26.0-388.0 [facility] [place] Comment on above: Performed By: #### F ERR, IRON, VITB12 #### [facility] [address] [address] [address] Enoch Stein GLYCOHEMOGLOBIN A1Con 2022 ADA RECOMMENDATION SEE BELOW Normal [facility] Comment on above: Result Comment: ADA RECOMMENDED LIMIT 4.0 - 6.0 ADA THERAPEUTIC TARGET < 7.0 ACTION SUGGESTED > 7.0 Performed By: #### F ERR, IRON, VITB12 #### [facility] [address] [address] [address] Enoch Stein Glucose [Mass/Vol] 180 mg/dL Normal [facility] Comment on above: Performed By: #### F ERR, IRON, VITB12 #### [facility] [address] [address] [address] Enoch Stein HbA1c (Bld) [Mass fraction] 7.9 % Critically high 4.5-6.2 [facility] Comment on above: Performed By: #### F ERR, IRON, VITB12 #### [facility] [address] [address] [address] Enoch Stein IRONon 06-11-2022 Iron [Mass/Vol] 86.0 ug/dL Normal 65.0-175.0 [facility] Comment on above: Performed By: #### F ERR, IRON, VITB12 #### [facility] [address] [place] [address] Dr. Enoch Stein LIPID PROFILEon 06-11-2022 CHOL-HDL RATIO NORM SEE BELOW Normal [facility] [place] Comment on above: Result Comment: 3.3 - 4.4 LOW RISK 4.4 - 7.1 AVERAGE RISK 7.1 - 11.0 MODERATE RISK >11.0 HIGH RISK Performed By: #### F ERR, IRON, VITB12 #### [facility] [address] [address] [address] Enoch Stein Cholesterol [Mass/Vol] 113 mg/dL Normal <=[address] [facility] Comment on above: Performed By: #### F ERR, IRON, VITB12 #### [facility] [address] [address] [address] Enoch Stein Cholesterol in HDL [Mass/Vol] 52 mg/dL Normal 40-60 [facility] Comment on above: Performed By: #### F ERR, IRON, VITB12 #### [facility] [address] [address] [address] Enoch Stein Cholesterol in LDL [Mass/Vol] 47.0 mg/dL Normal [facility] Comment on above: Performed By: #### F ERR, IRON, VITB12 #### [facility] [address] [place] [address] Dr. Enoch Stein Cholesterol.total/Monalisa sterol in HDL [Mass ratio] 2.2 {ratio} Normal [facility] Comment on above: Performed By: #### F ERR, IRON, VITB12 #### [facility] [address] [address] [address] Enoch Stein HDL NORMAL > or = 60 mg/dl - LOW CARDIOVASCULAR RISK <40 mg/dl - HIGH CARDIOVASCULAR RISK Normal [facility] Comment on above: Performed By: #### F ERR, IRON, VITB12 #### [facility] [address] [address] [address] Enoch Stein LDL CALC NORMAL SEE BELOW Normal [facility] Comment on above: Result Comment: <100 mg/dl OPTIMAL 100 - 129 mg/dl NEAR OR ABOVE OPTIMAL 130 - 159 mg/dl BORDERLINE HIGH 160 - 189 mg/dl HIGH >190 mg/dl VERY HIGH Performed By: #### F ERR, IRON, VITB12 #### [facility] [address] [address] [address] Enoch Stein Triglyceride [Mass/Vol] 70 mg/dL Normal <=150 T [facility] [place] Comment on above: Performed By: #### F ERR, IRON, VITB12 #### [facility] [address] [address] [address] Enoch Stein VLDL CALC 14.0 mg/dL Normal [facility] Comment on above: Performed By: #### F ERR, IRON, VITB12 #### [facility] [address] [address] [address] Enohc Stein MICROALBUMIN, RAND URon 05-26 mALB <1.3 Normal <=30.0 [facility] Comment on above: Performed By: #### M ALBR #### [facility] [address] [place] [address] Dr. Enoch Stein PROF 14(COMP METB)on 023 Albumin [Mass/Vol] 3.7 g/dL Normal 3.4-5.0 [facility] Comment on above: Performed By: #### F ERR, IRON, VITB12 #### [facility] [address] [place] [address] Dr. Enoch Stein Albumin/Globulin [Mass ratio] 1.2 {ratio} Normal [facility] Comment on above: Performed By: #### F ERR, IRON, VITB12 #### [facility] [address] [place] [address] Dr. Enoch Stein ALP [Catalytic activity/Vol] 90 U/L Normal 46-116 [facility] Comment on above: Performed By: #### F ERR, IRON, VITB12 #### [facility] [address] [place] [address] Dr. Enohc Stein ALT [Catalytic activity/Vol] 34 U/L Normal 16-63 [facility] Comment on above: Performed By: #### F ERR, IRON, VITB12 #### [facility] [address] [place] [address] Dr. Enoch Stein Anion gap [Moles/Vol] 14.8 mmol/L Normal [facility] Comment on above: Performed By: #### F ERR, IRON, VITB12 #### [facility] [address] [place] [address] Dr. Enoch Stein AST [Catalytic activity/Vol] 22 U/L Normal 15-37 [facility] Comment on above: Performed By: #### F ERR, IRON, VITB12 #### [facility] [address] [address] [address] Enoch Stein Bilirubin [Mass/Vol] 0.6 mg/dL Normal 0.2-1.0 [facility] Comment on above: Performed By: #### F ERR, IRON, VITB12 #### [facility] [address] [address] [address] Enoch Stein Calcium [Mass/Vol] 9.7 mg/dL Normal 8.5-10.1 [facility] Comment on above: Performed By: #### F ERR, IRON, VITB12 #### [facility] [address] [address] [address] Enoch Stein Chloride [Moles/Vol] 105 mmol/L Normal 98-107 [facility] Comment on above: Performed By: #### F ERR, IRON, VITB12 #### [facility] [address] [place] [address] Dr. Enoch Stein CO2 [Moles/Vol] 26.7 mmol/L Normal 21.0-32.0 [facility] Comment on above: Performed By: #### F ERR, IRON, VITB12 #### [facility] [address] [address] [address] Enoch Stein Creatinine [Mass/Vol] 0.78 mg/dL Normal 0.70-1.30 [facility] Comment on above: Performed By: #### F ERR, IRON, VITB12 #### [facility] [address] [place] [address] Dr. Enoch Stein EGFR-AF GUYANESE >60 Normal >=60 [facility] Comment on above: Performed By: #### F ERR, IRON, VITB12 #### [facility] [address] [place] [address] Dr. Enoch Stein EGFR-NON AF GUYANESE >60 Normal >=60 [facility] Comment on above: Performed By: #### F ERR, IRON, VITB12 #### [facility] [address] [place] [address] Dr. Enoch Stein Globulin (S) [Mass/Vol] 3.2 g/dL Normal [facility] [place] Comment on above: Performed By: #### F ERR, IRON, VITB12 #### [facility] [address] [address] [address] Enoch Stein Glucose [Mass/Vol] 179 mg/dL Critically high 74-106 [facility] Comment on above: Performed By: #### F ERR, IRON, VITB12 #### [facility] [address] [address] [address] Enoch Stein Potassium [Moles/Vol] 4.5 mmol/L Normal 3.5-5.1 [facility] Comment on above: Performed By: #### F ERR, IRON, VITB12 #### [facility] [address] [place] [address] Dr. Enoch Stein Protein [Mass/Vol] 6.9 g/dL Normal 6.4-8.2 [facility] Comment on above: Performed By: #### F ERR, IRON, VITB12 #### [facility] [address] [address] [address] Enoch Stein Sodium [Moles/Vol] 142 mmol/L Normal 136-145 [facility] Comment on above: Performed By: #### F ERR, IRON, VITB12 #### [facility] [address] [place] [address] Dr. Enoch Stein Urea nitrogen [Mass/Vol] 19.0 mg/dL Critically high 7.0-18.0 [facility] Comment on above: Performed By: #### F ERR, IRON, VITB12 #### [facility] [address] [place] [address] Dr. Enoch Stein Urea nitrogen/Creatinine [Mass ratio] 24.4 mg/mg Normal [facility] Comment on above: Performed By: #### F ERR, IRON, VITB12 #### [facility] [address] [place] [address] Dr. Enoch Stein UA RANDOM W/MICROSCOPICon BACTERIA NONE SEEN Normal NONE SEEN [facility] Comment on above: Performed By: #### U AMIC #### [facility] [address] [address] [address] Enoch Stein Bilirubin Ql (U) Negative Normal NEGATIVE [facility] Comment on above: Performed By: #### U AMIC #### [facility] [address] [address] [address] Enoch Stein CAST NONE SEEN Normal NONE SEEN [facility] Comment on above: Performed By: #### U AMIC #### [facility] [address] [place] [address] Dr. Enoch Stein Clarity (U) CLEAR Normal CLEAR [facility] Comment on above: Performed By: #### U AMIC #### [facility] [address] [place] [address] Dr. Enoch Stein Color (U) LT. YELLOW Normal YELLOW [facility] Comment on above: Performed By: #### U AMIC #### [facility] [address] [place] [address] Dr. Enoch Stein Crystals LM Nom (Urine sed) NONE SEEN Normal NONE SEEN [facility] Comment on above: Performed By: #### U AMIC #### [facility] [address] [place] [address] Dr. Enoch Stein Epithelial cells LM Ql (Urine sed) NONE SEEN Normal NONE SEEN /RARE [facility] Comment on above: Performed By: #### U AMIC #### [facility] [address] [place] [address] Dr. Enoch Stein Glucose Ql (U) 250 mg/dl Abnormal NEGATIVE [facility] Comment on above: Performed By: #### U AMIC #### [facility] [address] [place] [address] Dr. Enoch Stein Hemoglobin Ql (U) Negative Normal NEGATIVE [facility] Comment on above: Performed By: #### U AMIC #### [facility] [address] [place] [address] Dr. Enoch Stein Ketones Ql (U) Negative Normal NEGATIVE [facility] Comment on above: Performed By: #### U AMIC #### [facility] [address] [place] [address] Dr. Enoch Stein LEUKOCYTES Negative Normal NEGATIVE [facility] Comment on above: Performed By: #### U AMIC #### [facility] [address] [address] [address] Enoch Stein MUCOUS TRACE Abnormal NONE SEEN [facility] Comment on above: Performed By: #### U AMIC #### [facility] [address] [place] [address] Dr. Enoch Stein Nitrite Ql (U) Negative Normal NEGATIVE [facility] Comment on above: Performed By: #### U AMIC #### [facility] [address] [place] [address] Dr. Enoch Stein pH (U) 5.5 [pH] Normal 5-9 [facility] Comment on above: Performed By: #### U AMIC #### [facility] [address] [place] [address] Dr. Enoch Stein RBC NONE SEEN Abnormal 0-2 [facility] Comment on above: Performed By: #### U AMIC #### [facility] [address] [place] [address] Dr. Enoch Stein SPEC GRAVITY 1.020 Normal 1.005-<=1.02 5 [facility] Comment on above: Performed By: #### U AMIC #### [facility] [address] [place] [address] Dr. Enoch Stein UA PROTEIN Negative Normal NEGATIVE/ TRACE [facility] Comment on above: Performed By: #### U AMIC #### [facility] [address] [place] [address] Dr. Enoch Stein Urobilinogen Qn (U) 0.2 {Reilly'U}/dL Normal 0.2 - 1. 0 [facility] Comment on above: Performed By: #### U AMIC #### [facility] [address] [place] [address] Dr. Enoch Stein WBC NONE SEEN Normal NONE SEEN [facility] Comment on above: Performed By: #### U AMIC #### [facility] [address] [place] [address] Dr. Enoch Stein VITAMIN B12on 06-11-2022 Cobalamin (Vitamin B12) [Mass/Vol] 413.0 pg/mL Normal 193.0-986.0 [facility] Comment on above: Performed By: #### F ERR, IRON, VITB12 #### [facility] [address] [address] [address] ABD/PELV W CONon [...] SANJAY REECE Date: 2022-01-06 16:24 Normal [facility] AMYLASEon 01-05-2022 Amylase [Catalytic activity/Vol] 55 U/L Normal 25-115 [facility] Comment on above: Performed By: #### F ERR, IRON, VITB12 #### [facility] [address] [address] [address] Enoch Stein CBC AUTO DIFFon 01-05-2022 BASO # 0.0 103/ul Normal 0.0-0.1 [facility] Comment on above: Performed By: #### F ERR, IRON, VITB12 #### [facility] [address] [place] [address] Dr. Enoch Stein Basophils/100 WBC (Bld) 0.5 % Normal 0.2-2.0 [facility] Comment on above: Performed By: #### F ERR, IRON, VITB12 #### [facility] [address] [place] [address] Dr. Enoch Stein EO # 0.3 103/ul Normal 0.0-0.7 [facility] Comment on above: Performed By: #### F ERR, IRON, VITB12 #### [facility] [address] [place] [address] Dr. Enoch Stein Eosinophils/100 WBC (Bld) 3.7 % Normal 0.9-7.0 [facility] Comment on above: Performed By: #### F ERR, IRON, VITB12 #### [facility] [address] [place] [address] Dr. Enoch Stein Erythrocyte distribution width (RBC) [Ratio] 13.2 % Normal 11.0-15.0 [facility] Comment on above: Performed By: #### F ERR, IRON, VITB12 #### [facility] [address] [place] [address] Dr. Enoch Stein Hematocrit (Bld) [Volume fraction] 39.3 % Critically low 42.0-54.0 [facility] Comment on above: Performed By: #### F ERR, IRON, VITB12 #### [facility] [address] [place] [address] Dr. Enoch Stein Hemoglobin (Bld) [Mass/Vol] 13.0 g/dL Critically low 14.0-18.0 [facility] Comment on above: Performed By: #### F ERR, IRON, VITB12 #### [facility] [address] [place] [address] Dr. Enoch Stein IG # 0.04 10e3/ul Critically high 0.00-0.03 [facility] Comment on above: Performed By: #### F ERR, IRON, VITB12 #### [facility] [address] [place] [address] Dr. Enoch Stein IG % 0.5 % Normal 0.0-0.5 [facility] Comment on above: Performed By: #### F ERR, IRON, VITB12 #### [facility] [address] [place] [address] Dr. Enoch Stein LYMPH # 1.6 103/ul Normal 1.2-3.8 [facility] Comment on above: Performed By: #### F ERR, IRON, VITB12 #### [facility] [address] [place] [address] Dr. Enoch Stein Lymphocytes/100 WBC (Bld) 20.4 % Critically low 20.5-60.0 [facility] Comment on above: Performed By: #### F ERR, IRON, VITB12 #### [facility] [address] [place] [address] Dr. Enoch Stein MANUAL DIFF REQ NO Normal [facility] Comment on above: Performed By: #### F ERR, IRON, VITB12 #### [facility] [address] [place] [address] Dr. Enoch Stein MCH (RBC) [Entitic mass] 30.5 pg Normal 25.9-34.0 [facility] Comment on above: Performed By: #### F ERR, IRON, VITB12 #### [facility] [address] [place] [address] Dr. Enoch Stein MCHC (RBC) [Mass/Vol] 33.1 g/dL Normal 29.9-35.2 [facility] Comment on above: Performed By: #### F ERR, IRON, VITB12 #### [facility] [address] [place] [address] Dr. Enoch Stein MCV (RBC) [Entitic vol] 92.3 fL Normal 80.0-94.0 [facility] Comment on above: Performed By: #### F ERR, IRON, VITB12 #### [facility] [address] [place] [address] Dr. Enoch Stein MONO # 0.4 103/ul Normal 0.3-0.8 [facility] Comment on above: Performed By: #### F ERR, IRON, VITB12 #### [facility] [address] [place] [address] Dr. Enoch Stein Monocytes/100 WBC (Bld) 4.7 % Normal 1.7-12.0 [facility] Comment on above: Performed By: #### F ERR, IRON, VITB12 #### [facility] [address] [place] [address] Dr. Enoch Stein NEUT # 5.6 103/ul Normal 1.4-6.5 [facility] Comment on above: Performed By: #### F ERR, IRON, VITB12 #### [facility] [address] [place] [address] Dr. Enoch Stein Neutrophils/100 WBC (Bld) 70.2 % Normal 43.0-75.0 [facility] Comment on above: Performed By: #### F ERR, IRON, VITB12 #### [facility] [address] [place] [address] Dr. Enoch Stein Platelet mean volume (Bld) [Entitic vol] 10.2 fL Normal 9.5-13.5 [facility] Comment on above: Performed By: #### F ERR, IRON, VITB12 #### [facility] [address] [place] [address] Dr. Enoch Stein PLT 192 103/ul Normal 150-450 [facility] Comment on above: Performed By: #### F ERR, IRON, VITB12 #### [facility] [address] [place] [address] Dr. Enoch Stein RBC 4.26 106/ul Critically low 4.70-6.10 [facility] Comment on above: Performed By: #### F ERR, IRON, VITB12 #### [facility] [address] [place] [address] Dr. Enoch Stein WBC 8.0 103/ul Normal 4.0-11.0 [facility] Comment on above: Performed By: #### F ERR, IRON, VITB12 #### [facility] [address] [place] [address] Dr. Enoch Stein CULTURE URINEon 01-05-2022 CULTURE URINE Culture Observations: NO GROWTH. Normal [facility] Comment on above: Performed By: #### F ERR, IRON, VITB12 #### [facility] [address] [place] [address] Dr. Enoch Stein GLYCOHEMOGLOBIN A1Con 2021 ADA RECOMMENDATION SEE BELOW Normal [facility] Comment on above: Result Comment: ADA RECOMMENDED LIMIT 4.0 - 6.0 ADA THERAPEUTIC TARGET < 7.0 ACTION SUGGESTED > 7.0 Performed By: #### A 1C #### [facility] [address] [place] [address] Dr. Enoch Stein Glucose [Mass/Vol] 166 mg/dL Normal [facility] Comment on above: Performed By: #### A 1C #### [facility] [address] [place] [address] Dr. Enoch Stein HbA1c (Bld) [Mass fraction] 7.4 % Critically high 4.5-6.2 [facility] Comment on above: Performed By: #### A 1C #### [facility] [address] [place] [address] Dr. Enoch Stein LIPASEon 01-05-2022 Lipase [Catalytic activity/Vol] 86.0 U/L Normal 73.0-393.0 [facility] Comment on above: Performed By: #### F ERR, IRON, VITB12 #### [facility] [address] [place] [address] Dr. Enoch Stein PROF 14(COMP METB)on 022 Albumin [Mass/Vol] 3.8 g/dL Normal 3.4-5.0 [facility] Comment on above: Performed By: #### F ERR, IRON, VITB12 #### [facility] [address] [place] [address] Dr. Enoch Stein Albumin/Globulin [Mass ratio] 1.1 {ratio} Normal [facility] Comment on above: Performed By: #### F ERR, IRON, VITB12 #### [facility] [address] [place] [address] Dr. Enoch Stein ALP [Catalytic activity/Vol] 101 U/L Normal 46-116 [facility] Comment on above: Performed By: #### F ERR, IRON, VITB12 #### [facility] [address] [place] [address] Dr. Enoch Stein ALT [Catalytic activity/Vol] 25 U/L Normal 16-63 [facility] Comment on above: Performed By: #### F ERR, IRON, VITB12 #### [facility] [address] [place] [address] Dr. Enoch Stein Anion gap [Moles/Vol] 15.2 mmol/L Normal [facility] Comment on above: Performed By: #### F ERR, IRON, VITB12 #### [facility] [address] [place] [address] Dr. Enoch Stein AST [Catalytic activity/Vol] 14 U/L Critically low 15-37 [facility] Comment on above: Performed By: #### F ERR, IRON, VITB12 #### [facility] [address] [place] [address] Dr. Enoch Stein Bilirubin [Mass/Vol] 1.0 mg/dL Normal 0.2-1.0 [facility] Comment on above: Performed By: #### F ERR, IRON, VITB12 #### [facility] [address] [place] [address] Dr. Enoch Stein Calcium [Mass/Vol] 9.4 mg/dL Normal 8.5-10.1 [facility] Comment on above: Performed By: #### F ERR, IRON, VITB12 #### [facility] [address] [place] [address] Dr. Enoch Stein Chloride [Moles/Vol] 104 mmol/L Normal 98-107 [facility] Comment on above: Performed By: #### F ERR, IRON, VITB12 #### [facility] [address] [address] [address] Enoch Stein CO2 [Moles/Vol] 27.1 mmol/L Normal 21.0-32.0 [facility] Comment on above: Performed By: #### F ERR, IRON, VITB12 #### [facility] [address] [address] [address] Enoch Stein Creatinine [Mass/Vol] 1.23 mg/dL Normal 0.70-1.30 [facility] Comment on above: Performed By: #### F ERR, IRON, VITB12 #### [facility] [address] [place] [address] Dr. Enoch Stein EGFR-AF GUYANESE >60 Normal >=60 [facility] Comment on above: Performed By: #### F ERR, IRON, VITB12 #### [facility] [address] [place] [address] Dr. Enoch Stein EGFR-NON AF GUYANESE 57 mL/min/1.73m2 Critically low >=60 [facility] Comment on above: Performed By: #### F ERR, IRON, VITB12 #### [facility] [address] [place] [address] Dr. Enoch Stein Globulin (S) [Mass/Vol] 3.4 g/dL Normal [facility] Comment on above: Performed By: #### F ERR, IRON, VITB12 #### [facility] [address] [address] [address] Enoch Stein Glucose [Mass/Vol] 165 mg/dL Critically high 74-106 [facility] Comment on above: Performed By: #### F ERR, IRON, VITB12 #### [facility] [address] [place] [address] Dr. Enoch Stein Potassium [Moles/Vol] 5.3 mmol/L Critically high 3.5-5.1 [facility] Comment on above: Performed By: #### F ERR, IRON, VITB12 #### [facility] [address] [place] [address] Dr. Enoch Stein Protein [Mass/Vol] 7.2 g/dL Normal 6.4-8.2 [facility] Comment on above: Performed By: #### F ERR, IRON, VITB12 #### [facility] [address] [place] [address] Dr. Enoch Stein Sodium [Moles/Vol] 141 mmol/L Normal 136-145 [facility] Comment on above: Performed By: #### F ERR, IRON, VITB12 #### [facility] [address] [place] [address] Dr. Enoch Stein Urea nitrogen [Mass/Vol] 26.0 mg/dL Critically high 7.0-18.0 [facility] Comment on above: Performed By: #### F ERR, IRON, VITB12 #### [facility] [address] [place] [address] Dr. Enoch Stein Urea nitrogen/Creatinine [Mass ratio] 21.1 mg/mg Normal [facility] Comment on above: Performed By: #### F ERR, IRON, VITB12 #### [facility] [address] [place] [address] Dr. Enoch Stein SED RATE [facility] 2021 SED RATE 4 mm/hr Normal <=20 [facility] Comment on above: Performed By: #### S EDR #### [facility] [address] [place] [address] Dr. Enoch Stein UA RANDOM W/MICROSCOPICon BACTERIA TRACE Abnormal NONE SEEN [facility] Comment on above: Performed By: #### U AMIC #### [facility] [address] [place] [address] Dr. Enoch Stein Bilirubin Ql (U) SMALL Abnormal NEGATIVE [facility] Comment on above: Performed By: #### U AMIC #### [facility] [address] [place] [address] Dr. Enoch Stein CA OX CRYSTALS FEW Normal [facility] Comment on above: Performed By: #### U AMIC #### [facility] [address] [place] [address] Dr. Enoch Stein CAST SEEN Abnormal NONE SEEN [facility] Comment on above: Performed By: #### U AMIC #### [facility] [address] [address] [address] Enoch Stein Clarity (U) CLEAR Normal CLEAR [facility] Comment on above: Performed By: #### U AMIC #### [facility] [address] [address] [address] Enoch Stein Color (U) DK. YELLOW Normal YELLOW [facility] Comment on above: Performed By: #### U AMIC #### [facility] [address] [address] [address] Enoch Stein Crystals LM Nom (Urine sed) SEEN Abnormal NONE SEEN [facility] Comment on above: Performed By: #### U AMIC #### [facility] [address] [place] [address] Dr. Enoch Stein Epithelial cells LM Ql (Urine sed) RARE Normal NONE SEEN /RARE [facility] Comment on above: Performed By: #### U AMIC #### [facility] [address] [address] [address] Enoch Stein Glucose Ql (U) Negative Normal NEGATIVE [facility] Comment on above: Performed By: #### U AMIC #### [facility] [address] [address] [address] Enoch Stein Hemoglobin Ql (U) Negative Normal NEGATIVE [facility] Comment on above: Performed By: #### U AMIC #### [facility] [address] [address] [address] Enoch Stein HYALINE CAST MODERATE Normal [facility] Comment on above: Performed By: #### U AMIC #### [facility] [address] [address] [address] Enoch Stein Ketones Ql (U) 15 mg/dl Abnormal NEGATIVE [facility] Comment on above: Performed By: #### U AMIC #### [facility] [address] [address] [address] Enoch Stein LEUKOCYTES Negative Normal NEGATIVE [facility] Comment on above: Performed By: #### U AMIC #### [facility] [address] [address] [address] Enoch Stein MUCOUS MODERATE Abnormal NONE SEEN [facility] Comment on above: Performed By: #### U AMIC #### [facility] [address] [address] [address] Enoch Stein Nitrite Ql (U) Negative Normal NEGATIVE [facility] Comment on above: Performed By: #### U AMIC #### [facility] [address] [address] [address] Enoch Stein pH (U) 6.0 [pH] Normal 5-9 [facility] Comment on above: Performed By: #### U AMIC #### [facility] [address] [address] [address] Enoch Stein RBC 0-2 Normal 0-2 [facility] Comment on above: Performed By: #### U AMIC #### [facility] [address] [place] [address] Dr. Enoch Stein SPEC GRAVITY >=1.030 Abnormal 1.005-<=1.02 5 [facility] Comment on above: Performed By: #### U AMIC #### [facility] [address] [address] [address] Enoch Stein UA PROTEIN 100 mg/dl Abnormal NEGATIVE/ TRACE [facility] Comment on above: Performed By: #### U AMIC #### [facility] [address] [place] [address] Dr. Enoch Stein Urobilinogen Qn (U) 1.0 {Reilly'U}/dL Normal 0.2 - 1. 0 [facility] Comment on above: Performed By: #### U AMIC #### [facility] [address] [place] [address] Dr. Enoch Stein WBC 0-2 Abnormal NONE SEEN [facility] Comment on above: Performed By: #### U AMIC #### [facility] [address] [place] [address] Dr. Enoch Stein ECHOCARDIO M/2D COMPLETEon 0 10-14-2021 ECHOCARDIO M/2D COMPLETE Patient: KIMMY MCARTHUR Exam Date: 10/14/2021 : 1945 Gender:M Ordering : [facility] Admission #: [id number] Family : ELO BOYCE [facility] Order #: [id number] CLICK HERE TO VIEW EXAM ECHOCARDIOGRAM REPORT [...] on 10/14/2021 at 16:54 Approved by: Natasha Cmapo M.D. on 10/14/2021 at 16:57 Normal [facility] CTA NECKon 03-04-2021 CTA NECK [facility] Department of Radiology [address] [place] [address] Patient Name: KIMMY MCARTHUR : 1945 Sex: M Age: Race: White Pt. Location: [facility] Patient Status: D Ordered Date: 01/28/2021 4:35:00 PM Completed Date: 03/04/2021 10:46 AM Requesting Provider: ALEX REECE Attending Provider: ALEX REECE Report Copy To: PRABHJOT VILLATORO Signs & Symptoms: I65.29 Occlusion and stenosis of unspecified carotid artery I10 History: Keira patient will need labs Need Wed appt medicare no pc required [address] / i65.29 med nec passed *kw 02/04/21 [...] viewed on a separate workstation. The [place] Symptomatic Carotid Endarterectomy Trial (NASCET) method for [...] achievable Electronically signed: Troy Wadsworth. Transcribed by: [email or web address], User Resident: TROY WADSWORTH Electronically Signed by: TROY WADSWORTH @ 03/08/2021 08:19 AM I personally read this/these film(s) with this resident Normal [facility] Vital Signs Date Time Vital Sign Value Performing Clinician Facility 12-05-2024 11:09040 Body height 182.88 cm Marisol Aichholz Work Phone: [facility] 12-05-2024 11:090400 Body mass index (BMI) [Ratio] 22.9 kg/m2 Marisol Aichholz Work Phone: [facility] 12-05-2024 11:09040 Body temperature 97.8 [degF] Marisol Aichholz Work Phone: [facility] 12-05-2024 11:09040 Body weight 76.71 kg Marisol Aichholz Work Phone: [facility] 12-05-2024 11:09-0400 Diastolic blood pressure 46 mm[Hg] Marisol Aichholz Work Phone: [facility] 12-05-2024 11:09-0400 Heart rate 61 /min Marisol Aichholz Work Phone: [facility] 12-05-2024 11:09-0400 Respiratory rate 18 /min Marisol Aichholz Work Phone: [facility] 12-05-2024 11:09-0400 SaO2% (BldA) [Mass fraction] 97 % Marisol Aichholz Work Phone: [facility] 12-05-2024 11:09-0400 Systolic blood pressure 110 mm[Hg] Marisol Aichholz Work Phone: [facility] 09-26-2024 08:53-0400 Body mass index (BMI) [Ratio] 22.76 kg/m2 Marisol Aichholz MINILAB OPERATOR Work Phone: [facility] 09-26-2024 08:53-0400 Body temperature 97.81 [degF] Marisol Aichholz MINILAB OPERATOR Work Phone: [facility] 09-26-2024 08:53-0400 Body weight 76.11 kg Marisol Aichholz MINILAB OPERATOR Work Phone: [facility] 09-26-2024 08:53-0400 Diastolic blood pressure 60 mm[Hg] Marisol Aichholz MINILAB OPERATOR Work Phone: [facility] 09-26-2024 08:53-0400 Heart rate 60 /min Marisol Aichholz MINILAB OPERATOR Work Phone: [facility] 09-26-2024 08:53-0400 Respiratory rate 18 /min Marisol Aichholz MINILAB OPERATOR Work Phone: [facility] 09-26-2024 08:53-0400 SaO2% (BldA) [Mass fraction] 98 % Marisol Aichholz MINILAB OPERATOR Work Phone: [facility] 09-26-2024 08:53-0400 Systolic blood pressure 128 mm[Hg] Marisol Aichholz MINILAB OPERATOR Work Phone: [facility] 08-15-2024 10:37-0400 Body mass index (BMI) [Ratio] 22.43 kg/m2 Marisol Aichholz MINILAB OPERATOR Work Phone: [facility] 08-15-2024 10:37-0400 Body temperature 98.49 [degF] Marisol Aichholz MINILAB OPERATOR Work Phone: [facility] 08-15-2024 10:37-0400 Body weight 75.03 kg Marisol Aichholz MINILAB OPERATOR Work Phone: [facility] 08-15-2024 10:37-0400 Diastolic blood pressure 68 mm[Hg] Marisol Aichholz MINILAB OPERATOR Work Phone: [facility] 08-15-2024 10:37-0400 Heart rate 51 /min Marisol Aichholz MINILAB OPERATOR Work Phone: [facility] 08-15-2024 10:37-0400 Respiratory rate 18 /min Marisol Aichholz MINILAB OPERATOR Work Phone: [facility] 08-15-2024 10:37-0400 SaO2% (BldA) [Mass fraction] 96 % Marisol Chinoholz MINILAB OPERATOR Work Phone: [facility] 08-15-2024 10:37-0400 Systolic blood pressure 108 mm[Hg] Marisol Medardohholz MINILAB OPERATOR Work Phone: [facility] 05-15-2024 09:26-0500 Body height 182.9 cm Marisol Medardohholz MINILAB OPERATOR Work Phone: [facility] 05-15-2024 09:26-0500 Body mass index (BMI) [Ratio] 23.22 kg/m2 Marisol Medardohholz MINILAB OPERATOR Work Phone: [facility] 05-15-2024 09:26-0500 Body temperature 98.1 [degF] Marisol Medardohholz MINILAB OPERATOR Work Phone: [facility] 05-15-2024 09:26-0500 Body weight 77.66 kg Marisol Medardohholz MINILAB OPERATOR Work Phone: [facility] 05-15-2024 09:26-0500 Diastolic blood pressure 62 mm[Hg] Marisol Aichholz MINILAB OPERATOR Work Phone: [facility] 05-15-2024 09:26-0500 Heart rate 57 /min Marisol Medardohholz MINILAB OPERATOR Work Phone: [facility] 05-15-2024 09:26-0500 Respiratory rate 18 /min Marisol Medardohholz MINILAB OPERATOR Work Phone: [facility] 05-15-2024 09:26-0500 SaO2% (BldA) [Mass fraction] 98 % Marisol Medardohholz MINILAB OPERATOR Work Phone: [facility] 05-15-2024 09:26-0500 Systolic blood pressure 140 mm[Hg] Marisol Aichholz MINILAB OPERATOR Work Phone: [facility] 04-04-2024 11:42-0500 Body height 182.9 cm Marlin MATAMOROS Work Phone: [facility] 04-04-2024 11:42-0500 Body mass index (BMI) [Ratio] 23.79 kg/m2 Marlin Koch WOOD REPATCHER-FURNACE OPERATOR Work Phone: [facility] 04-04-2024 11:42-0500 Body weight 79.56 kg Marlin Koch WOOD REPATCHER-FURNACE OPERATOR Work Phone: [facility] 04-04-2024 11:42-0500 Diastolic blood pressure 46 mm[Hg] Marlin Koch WOOD REPATCHER-FURNACE OPERATOR Work Phone: [facility] 04-04-2024 11:42-0500 Heart rate 64 /min Marlin Koch WOOD REPATCHER-FURNACE OPERATOR Work Phone: [facility] 04-04-2024 11:42-0500 Systolic blood pressure 131 mm[Hg] Marlin Koch WOOD REPATCHER-FURNACE OPERATOR Work Phone: [facility] 03-05-2024 11:51-0500 Body height 182.9 cm Marlin Koch WOOD REPATCHER-FURNACE OPERATOR Work Phone: [facility] 03-05-2024 11:51-0500 Body mass index (BMI) [Ratio] 23.46 kg/m2 Marlin Koch WOOD REPATCHER-FURNACE OPERATOR Work Phone: [facility] 03-05-2024 11:51-0500 Body weight 78.47 kg Marlin Koch WOOD REPATCHER-FURNACE OPERATOR Work Phone: [facility] 03-05-2024 11:51-0500 Diastolic blood pressure 52 mm[Hg] Marlin Koch WOOD REPATCHER-FURNACE OPERATOR Work Phone: [facility] 03-05-2024 11:51-0500 Systolic blood pressure 135 mm[Hg] Marlin Koch WOOD REPATCHER-FURNACE OPERATOR Work Phone: [facility] 02-15-2024 13:15-0500 Body height 182.9 cm Marisol Boyce NP Work Phone: [facility] 02-15-2024 13:15-0500 Body mass index (BMI) [Ratio] 23.57 kg/m2 Marisol Medardoshayeholz MINILAB OPERATOR Work Phone: [facility] 02-15-2024 13:15-0500 Body temperature 98.49 [degF] Marisol Aichholz MINILAB OPERATOR Work Phone: [facility] 02-15-2024 13:15-0500 Body weight 78.83 kg Marisol Aichholz MINILAB OPERATOR Work Phone: [facility] 02-15-2024 13:15-0500 Diastolic blood pressure 64 mm[Hg] Marisol Aichholz MINILAB OPERATOR Work Phone: [facility] 02-15-2024 13:15-0500 Heart rate 51 /min Marisol Aichholz MINILAB OPERATOR Work Phone: [facility] 02-15-2024 13:15-0500 Respiratory rate 19 /min Marisol Aichholz MINILAB OPERATOR Work Phone: [facility] 02-15-2024 13:15-0500 SaO2% (BldA) [Mass fraction] 100 % Marisol Aichholz MINILAB OPERATOR Work Phone: [facility] 02-15-2024 13:15-0500 Systolic blood pressure 112 mm[Hg] Marisol Medardohholz MINILAB OPERATOR Work Phone: [facility] 01-04-2024 09:05-0400 Body mass index (BMI) [Ratio] 23.41 kg/m2 Marisol Aichholz MINILAB OPERATOR Work Phone: [facility] 01-04-2024 09:05-0400 Body temperature 98.1 [degF] Marisol Aichholz MINILAB OPERATOR Work Phone: [facility] 01-04-2024 09:05-0400 Body weight 78.29 kg Marisol Aichholz MINILAB OPERATOR Work Phone: [facility] 01-04-2024 09:05-0400 Diastolic blood pressure 78 mm[Hg] Marisol Aichholz MINILAB OPERATOR Work Phone: [facility] 01-04-2024 09:05-0400 Heart rate 79 /min Marisol Aichholz MINILAB OPERATOR Work Phone: [facility] 01-04-2024 09:05-0400 Respiratory rate 19 /min Marisol Medardohholz MINILAB OPERATOR Work Phone: [facility] 01-04-2024 09:05-0400 SaO2% (BldA) [Mass fraction] 97 % Marisol Medardohholz MINILAB OPERATOR Work Phone: [facility] 01-04-2024 09:05-0400 Systolic blood pressure 124 mm[Hg] Marisol Aichholz MINILAB OPERATOR Work Phone: [facility] 11-22-2023 11:27-0400 Body height 182.9 cm Marisol Aichholz MINILAB OPERATOR Work Phone: [facility] 11-22-2023 11:27-0400 Body mass index (BMI) [Ratio] 23.16 kg/m2 Marisol Medardohholz MINILAB OPERATOR Work Phone: [facility] 11-22-2023 11:27-0400 Body temperature 97.81 [degF] Marisol Medardohholz MINILAB OPERATOR Work Phone: [facility] 11-22-2023 11:27-0400 Body weight 77.47 kg Marisol Medardohholz MINILAB OPERATOR Work Phone: [facility] 11-22-2023 11:27-0400 Diastolic blood pressure 64 mm[Hg] Marisol Aichholz MINILAB OPERATOR Work Phone: [facility] 11-22-2023 11:27-0400 Heart rate 56 /min Marisol Aichholz MINILAB OPERATOR Work Phone: [facility] 11-22-2023 11:27-0400 Respiratory rate 18 /min Marisol Aichholz MINILAB OPERATOR Work Phone: [facility] 11-22-2023 11:27-0400 SaO2% (BldA) [Mass fraction] 96 % Marisol Aichholz MINILAB OPERATOR Work Phone: [facility] 11-22-2023 11:27-0400 Systolic blood pressure 98 mm[Hg] Marisol Boyce MINILAB OPERATOR Work Phone: [facility] 07-11-2023 13:56-0400 Body temperature 98.06 [degF] YAMILEX EUGENIO [facility] 07-11-2023 13:56-0400 Diastolic blood pressure 71 mm[Hg] YAMILEX EUGENIO [facility] 07-11-2023 13:56-0400 Heart rate 67 /min YAMILEX EUGENIO [facility] 07-11-2023 13:56-0400 Respiratory rate 16 /min YAMILEX EUGENIO [facility] 07-11-2023 13:56-0400 Systolic blood pressure 135 mm[Hg] YAMILEX EUGENIO [facility] 06-18-2022 09:44-0400 Blood Pressure Location Deja Lue [facility] 06-18-2022 09:44-0400 Diastolic blood pressure 67 mm[Hg] Deja Lue [facility] 06-18-2022 09:44-0400 Heart rate 87 /min Deja Lue [facility] 06-18-2022 09:44-0400 Systolic blood pressure 137 mm[Hg] Deja Lue [facility] Encounters Encounter Date Encounter Type Care Provider Facility Start: 12-05-[address] [facility] Start: 12-05-2024 End: 12-05-2024 ambulatory Marisol Boyce Work Phone: [facility] Work Phone: Start: 12-05-2024 End: 12-05-2024 Patient encounter procedure Marisol Boyce MINILAB OPERATOR-C [facility] Work Phone: Start: 11-28-2024 Non-patient / Non-visit Lj johnson [facility] Work Phone: Start: 11-27-2024 Non-patient / Non-visit Clem Staton [facility] Work Phone: Start: 10-24-2024 End: 10-25-2024 Refill Marisol Boyce MINILAB OPERATOR Work Phone: [facility] Comment on above: Mixed hyperlipidemia (Primary Dx) Start: 10-09-2024 End: 10-09-2024 ambulatory AB [facility] Start: 10-03-2024 End: 10-03-2024 Refill Marisol Boyce MINILAB OPERATOR Work Phone: [facility] Comment on above: PAD (peripheral christianne ry disease) (Primary Dx); Paroxysmal atrial fibrillation (HCC) Start: 09-26-2024 End: 09-26-2024 Bamboo flowsheet Marisol Boyce MINILAB OPERATOR Work Phone: [facility] Start: 09-26-2024 End: 09-26-2024 Bamboo flowsheet Marisol Boyce MINILAB OPERATOR Work Phone: [facility] Start: 09-26-2024 End: 09-26-2024 Telephone encounter Marisol Boyce MINILAB OPERATOR Work Phone: [facility] Start: 09-26-2024 End: 09-26-2024 Office outpatient visit 25 minutes Marisol Boyce MINILAB OPERATOR Work Phone: [facility] Comment on above: Dizziness and giddin ess (Primary Dx); Pulmonary hypertension, unspecified (HCC); Primary hypertension ; Riley's esophagus with dysplasia; Type 2 diabetes mellitus without complication, with long-term current use of insulin (HCC) Start: 09-26-2024 End: 09-26-2024 ambulatory MARISOL AICHHOLZ Not Available Start: 08-15-2024 End: 08-15-2024 Bamboo flowsheet Marisol Aichholz MINILAB OPERATOR Work Phone: [facility] Start: 08-15-2024 End: 08-15-2024 Bamboo flowsheet Marisol Aichholz MINILAB OPERATOR Work Phone: [facility] Start: 08-15-2024 End: 08-15-2024 Patient encounter procedure Marisol Aichholz MINILAB OPERATOR Work Phone: [facility] Comment on above: Encounter for subseq uent annual wellness visit (AWV) in Medicare patient (Primary Dx); Centrilobular emphysema (CMS/HCC); Paroxysmal atrial fibrillation (CMS/HCC); Bilateral carotid artery disease, unspecified type (CMS/HCC); Primary hypertension (CMS/HCC); Type 2 diabetes mellitus without complication, with long-term current use of insulin; Type 2 diabetes mellitus with other specified complication, with long-term current use of insulin; Mixed hyperlipidemia (CMS/HCC); Dizziness and giddiness Start: 08-15-2024 End: 08-15-2024 ambulatory MARISOL AICHHOLZ Not Available Start: 08-10-2024 End: 08-10-2024 Refill Marisol Aichholz MINILAB OPERATOR Work Phone: [facility] Comment on above: Type 2 diabetes maddie itus without complication, with long-term current use of insulin Start: 07-18-2024 End: 07-18-2024 ambulatory Deja Perez Facility:[facility] Start: 07-11-2024 End: 07-11-2024 Clinisync Result Encounter Marisol Chinoholz MINILAB OPERATOR Work Phone: [facility] External Department Unsolicited Start: 07-11-2024 End: 07-11-2024 Clinisync Result Encounter Marisol Boyce MINILAB OPERATOR Work Phone: [facility] External Department Unsolicited Start: 07-11-2024 End: 07-11-2024 Lab Drop off YAMILEX ARMSTRONG [facility] Start: 07-11-2024 End: 07-11-2024 ambulatory Fiona Saranya Facility:[facility] Start: 07-05-2024 End: 07-05-2024 Refill Marisol Boyce MINILAB OPERATOR Work Phone: [facility] Comment on above: Benign prostatic hyp erplasia with lower urinary tract symptoms, symptom details unspecified (Primary Dx) Start: 06-20-2024 End: 06-20-2024 Refill Marisol Boyce MINILAB OPERATOR Work Phone: [facility] Comment on above: Riley's esophagus with dysplasia (Primary Dx) Start: 05-15-2024 End: 05-15-2024 Bamboo flowsheet Marisol Boyce MINILAB OPERATOR Work Phone: [facility] Start: 05-15-2024 End: 05-15-2024 Bamboo flowsheet Marisol Boyce MINILAB OPERATOR Work Phone: [facility] Start: 05-15-2024 End: 05-15-2024 Office outpatient visit 25 minutes Marisol Boyce MINILAB OPERATOR Work Phone: [facility] Comment on above: Type 2 diabetes maddie itus without complication, with long-term current use of insulin (CMS/HCC) (Primary Dx); Centrilobular emphysema (CMS/HCC); Type 2 diabetes mellitus with other specified complication (CMS/HCC); Erectile dysfunction due to diseases classified elsewhere; Type 2 diabetes mellitus 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 (CMS/HCC); Paroxysmal atrial fibrillation (CMS/HCC); 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 (CMS/HCC); Primary hypertension (CMS/HCC); PAD (peripheral artery disease) ([facility]); Iron deficiency anemia, unspecified iron deficiency anemia type; Mixed hyperlipidemia ([facility]); Primary insomnia Start: 05-15-2024 End: 05-15-2024 ambulatory MARISOL AICHHOLZ Not Available Start: 05-13-2024 End: 05-13-2024 Refill Marisol Aichholz MINILAB OPERATOR Work Phone: [facility] Comment on above: Type 2 diabetes maddie itus without complication, with long-term current use of insulin (CMS/HCC) Start: 04-18-2024 End: 04-18-2024 Telephone encounter Fiona Miguel CMA [facility] Start: 04-16-2024 End: 04-16-2024 Orders Only Sabino Mauricio DO [facility] Start: 04-11-2024 End: 04-11-2024 ambulatory Sabino Mauricio [facility] Work Phone: Start: 04-11-2024 End: 04-11-2024 Departed Referred Sabino Mauricio DO Work Phone: [facility] Start: 04-04-2024 End: 04-04-2024 Office outpatient visit 15 minutes Marlin Koch APRN-FURNACE OPERATOR Work Phone: [facility] Comment on above: Encounter for colono scopy due to history of colonic polyp (Primary Dx); 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 Start: 04-04-2024 End: 04-04-2024 Refill Marisol Aichholz MINILAB OPERATOR Work Phone: [facility] Comment on above: Type 2 diabetes maddie itus without complication, with long-term current use of insulin ([facility]) (Primary Dx) Start: 03-29-2024 End: 03-29-2024 Telephone encounter Marisol Aichholz MINILAB OPERATOR Work Phone: [facility] Start: 03-26-2024 End: 03-26-2024 ambulatory [facility] Start: 03-22-2024 End: 03-22-2024 Clinical Support [facility] [address] [facility] Comment on above: Arrived Start: 03-19-2024 End: 03-19-2024 Clinical Support [facility] [address] [facility] Start: 03-15-2024 End: 03-15-2024 ambulatory [facility] Start: 03-14-2024 End: 03-14-2024 ambulatory AB [facility] Start: 03-13-2024 End: 03-13-2024 Clinisync Result Encounter Marisol Boyce NP Work Phone: [facility] External Department Unsolicited Start: 03-13-2024 End: 03-13-2024 Clinisync Result Encounter Marisol Boyce NP Work Phone: [facility] External Department Unsolicited Start: 03-12-2024 End: 03-12-2024 ambulatory [facility] Start: 03-08-2024 End: 03-08-2024 Clinical Support [facility] [address] [facility] Start: 03-07-2024 End: 03-07-2024 ambulatory [facility] Start: 03-05-2024 End: 03-05-2024 Office outpatient new 30 minutes Marlin Koch WOOD REPATCHER-FURNACE OPERATOR Work Phone: [facility] Comment on above: Encounter for colono scopy due to history of colonic polyp (Primary Dx); 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 Start: 03-05-2024 End: 03-05-[address] [facility] Start: 02-22-2024 End: 02-22-2024 Clinical Support [facility] [address] [facility] Start: 02-20-2024 End: 02-20-2024 Clinical Support [facility] [address] [facility] Start: 02-16-2024 End: 02-16-2024 Clinical Support [facility] [address] 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 Start: 02-13-2024 End: 02-13-2024 Clinical Support [facility] [address] [facility] Start: 02-09-2024 End: 02-09-2024 Clinical Support [facility] [address] [facility] Start: 02-08-2024 End: 02-08-2024 Clinical Support [facility] [address] [facility] Start: 02-06-2024 End: 02-06-2024 Clinical Support [facility] [address] [facility] Start: 02-02-2024 End: 02-02-2024 Telephone encounter Marisol Boyce MINILAB OPERATOR Work Phone: [facility] Start: 02-02-2024 End: 02-02-2024 ambulatory [facility] Start: 02-01-2024 End: 02-01-2024 Clinical Support [facility] [address] [facility] Start: 01-30-2024 End: 01-30-2024 ambulatory [facility] Start: 01-26-2024 End: 01-26-2024 Clinical Support [facility] [address] [facility] Start: 01-25-2024 End: 01-25-2024 Clinical Support [facility] [address] [facility] Start: 01-23-2024 End: 01-23-2024 ambulatory [facility] Start: 01-19-2024 End: 01-19-2024 Clinical Support [facility] [address] [facility] Start: 01-18-2024 End: 01-18-2024 Clinical Support [facility] [address] [facility] Start: 01-16-2024 End: 01-16-2024 Clinical Support [facility] [address] [facility] Start: 01-12-2024 End: 01-12-2024 Clinical Support [facility] [address] [facility] Comment on above: Arrived Start: 01-11-2024 End: 01-11-2024 ambulatory MARISOL BOYCE [facility] Start: 01-11-2024 End: 01-11-2024 Clinical Support [facility] [address] [facility] Start: 01-09-2024 End: 01-09-2024 ambulatory [facility] Start: 01-05-2024 End: 01-05-2024 Clinical Support [facility] [address] [facility] Start: 01-04-2024 End: 01-04-2024 Bamboo flowsheet Marisol Boyce MINILAB OPERATOR Work Phone: [facility] Start: 01-04-2024 End: 01-04-2024 Bamboo flowsheet Marisollaura Boyce MINILAB OPERATOR Work Phone: [facility] Start: 01-04-2024 End: 01-04-2024 Clinical Support [facility] [address] [facility] Start: 01-04-2024 End: 01-04-2024 Office outpatient visit 25 minutes Marisol Boyce MINILAB OPERATOR Work Phone: [facility] Comment on above: Type 2 diabetes maddie itus without complication, with long-term current use of insulin ([facility]) (Primary Dx); Chronic thoracic back pain, unspecified back pain laterality; Primary hypertension ([facility]/HCC) Start: 01-04-2024 End: 01-04-2024 ambulatory MARISOL AICHHOLZ Not Available Start: 01-02-2024 End: 01-02-2024 Clinical Support [facility] [address] [facility] Start: 12-29-2023 End: 12-29-2023 [facility] Start: 12-28-2023 End: 12-28-2023 Clinical Support [facility] [address] [facility] Start: 12-26-2023 End: 12-26-2023 Clinical Support [facility] [address] [facility] Start: 12-22-2023 End: 12-22-2023 Clinical Support [facility] [address] [facility] Start: 12-21-2023 End: 12-21-2023 Refill Marisol Boyce MINILAB OPERATOR Work Phone: [facility] Comment on above: Benign prostatic hyp erplasia with lower urinary tract symptoms, symptom details unspecified (Primary Dx) Start: 12-21-2023 End: 12-21-2023 Clinical Support [facility] [address] [facility] Start: 12-19-2023 End: 12-19-2023 Clinical Support [facility] [address] [facility] Start: 12-16-2023 End: 12-16-2023 [facility] Start: 11-29-2023 End: 11-29-2023 External Result Encounter Marisol Boyce NP Work Phone: [facility] External Department Unsolicited Start: 11-29-2023 End: 11-29-2023 External Result Encounter Marisol Boyce NP Work Phone: [facility] External Department Unsolicited Start: 11-22-2023 End: 11-22-2023 Bamboo flowsheet Marisol Boyce MINILAB OPERATOR Work Phone: [facility] Start: 11-22-2023 End: 11-22-2023 Bamboo flowsheet Marisol Boyce MINILAB OPERATOR Work Phone: [facility] Start: 11-22-2023 End: 11-22-2023 Office outpatient visit 15 minutes Marisol Boyce NP Work Phone: [facility] Comment on above: Coronary artery dise ase 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 (CMS/HCC) (Primary Dx); Other thrombophilia (CMS/HCC); Paroxysmal atrial fibrillation (CMS/HCC); Nonrheumatic mitral valve regurgitation; Primary hypertension (CMS/HCC); 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) Start: 11-22-2023 End: 11-22-2023 ambulatory MARISOL AICHHOLZ Not Available Start: 10-11-2023 End: 10-11-2023 ambulatory MARISOL AICHHOLZ Not Available Start: 07-11-2023 End: 07-11-2023 Patient encounter procedure YAMILEX ARMSTRONG [facility] Start: 06-07-2023 Patient encounter procedure Marisol Carli MINILAB OPERATOR Work Phone: [facility] Start: 05-05-2023 Refill Marisol Carli MINILAB OPERATOR Work Phone: [facility] Start: 05-04-2023 External Result Encounter Marisol Carli MINILAB OPERATOR Work Phone: [facility] External Department Unsolicited Start: 05-04-2023 External Result Encounter Marisol Carli MINILAB OPERATOR Work Phone: [facility] External Department Unsolicited Start: 06-18-2022 End: 06-18-2022 Patient encounter procedure Deja Perez [facility] Start: 06-11-2022 End: 06-12-2022 ambulatory FURNACE OPERATOR MARISOL AICHHOLZ Facility:[facility] Start: 01-06-2022 End: 01-07-2022 ambulatory FURNACE OPERATOR MARISOL AICHHOLZ Facility:[facility] Start: 01-05-2022 End: 01-06-2022 ambulatory FURNACE OPERATOR MARISOL AICHHOLZ Facility:[facility] Start: 10-14-2021 End: 10-15-2021 ambulatory DWAIN FLOR Facility:[facility] Start: 06-18-2021 End: 06-18-2021 Patient encounter procedure Carlitos MAYA [facility] [place] Procedures Date Procedure Procedure Detail Performing Clinician Start: 07-11-2024 [facility] [place] [place] CBC W/ AUTO DIFF L abhinav Carli MINILAB OPERATOR Work Phone: Start: 04-11-2024 Colonoscopy Sabino eller DO Work Phone: Start: 04-04-2024 Follow-up visit Follow-up MARLIN KOCH Start: 03-13-2024 MLR HEMOGLOBIN A1C Marisol Carli MINILAB OPERATOR Work Phone: Start: 11-29-2023 Basic metabolic pane l calcium total Marisol Maganaluisa MINILAB OPERATOR Work Phone: Start: 05-04-2023 Comprehensive metabo lic panel Marisol Maganaluisa MINILAB OPERATOR Work Phone: Start: 05-04-2023 Urnls dip stick/tabl et rgnt non-auto w/o micrscp Marisol Medardoshayeluisa MINILAB OPERATOR Work Phone: Start: 02-26-2020 Iliofemoral vein christiano nt (physical object) Carlitos EARTHNET Start: 08-03-2019 Injection of sacroil iac joint Carlitos EARTHNET Start: 10-26-2018 Colonoscopy Marisol espinozatu MINILAB OPERATOR Work Phone: Cataract (disorder) Carlitos R ICE Cholecystectomy Carlitos EARTHNET Placement of stent i n cardiac conduit Carlitos EARTHNET Prosthetic arthropla sty of shoulder Carlitos EARTHNET Plan of Treatment Date Care Activity Detail Author Start: 04-11-2029 Screening for malignant neoplasm of colon [facility] Start: 04-11-2027 Screening for malignant neoplasm of colon Colonoscopy [facility] Start: 09-26-2026 Glaucoma screening Diabetes: Retinopathy Screening [facility] Start: 08-21-2025 End: 08-21-2025 Patient encounter procedure 08/21/2025 10:00 AM EDT Office Visit [facility] [address] [place] [id number] Marisol Boyce NP [address] [place] [id number] [facility] Start: 08-15-2025 Medicare Annual Wellness (AWV) Medicare Annual Wellness (AWV) [facility] Start: 07-11-2025 Urine screening for protein Diabetes: Urine Protein Screening [facility] Start: 04-04-2025 Tobacco Screening Tobacco Screening [facility] Start: 03-05-2025 Tobacco Screening Tobacco Screening [facility] Start: 11-29-2024 End: 11-29-2024 Patient encounter procedure [facility] Start: 11-26-2024 Influenza vaccination Influenza Vaccine (#1) [facility] Start: 10-10-2024 Hemoglobin A1c measurement Diabetes: Hemoglobin A1C [facility] Start: 10-06-2024 Urine screening for protein Diabetes: Urine Protein Screening [facility] Start: 09-26-2024 End: 09-26-2024 Patient encounter procedure [facility] Comment on above: Dizziness and giddiness (Primary Dx); Pulmonary hypertension, unspecified (HCC); Primary hypertension Start: 08-15-2024 End: 08-15-2024 Patient encounter procedure [facility] Comment on above: Encounter for subsequent annual wellness visit (AWV) in Medicare patient (Primary Dx); CORNELIA (obstructive sleep apnea); Centrilobular emphysema (CMS/HCC); Paroxysmal atrial fibrillation (CMS/HCC); Bilateral carotid artery disease, unspecified type (CMS/HCC); Primary hypertension (CMS/HCC); Type 2 diabetes mellitus without complication, with long-term current use of insulin; Type 2 diabetes mellitus with other specified complication, with long-term current use of insulin; Mixed hyperlipidemia (CMS/HCC) Start: 06-12-2024 End: 05-15-2025 CBC W Auto Differential panel - Blood CBC and differential Lab Routine Paroxysmal atrial fibrillation (CMS/HCC) Iron deficiency anemia, unspecified iron deficiency anemia type Expected: 06/12/2024 (Approximate), Expires: 05/15/2025 [facility] Work Phone: Comment on above: Expected: 06/12/2024 (Approximate), Expi res: 05/15/2025 Start: 06-12-2024 End: 05-15-2025 Comprehensive metabolic 2000 panel - Serum or Plasma Comprehensive metabolic panel Lab Routine Type 2 diabetes mellitus with other specified complication (CMS/HCC) 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 (CMS/HCC) Primary hypertension (CMS/HCC) Mixed hyperlipidemia (CMS/HCC) Expected: 06/12/2024 (Approximate), Expires: 05/15/2025 [facility] Comment on above: Expected: 06/12/2024 (Approximate), Expi res: 05/15/2025 Start: 06-12-2024 End: 05-15-2025 Hemoglobin A1c/Hemoglobin.total in Blood Hemoglobin A1c Lab Routine Type 2 diabetes mellitus without complication, with long-term current use of insulin ([facility]) Expected: 06/12/2024 (Approximate), Expires: 05/15/2025 [facility] Comment on above: Expected: 06/12/2024 (Approximate), Expi res: 05/15/2025 Start: 06-12-2024 End: 05-15-2025 Iron and Iron binding capacity panel - Serum or Plasma Iron level Lab Routine Iron deficiency anemia, unspecified iron deficiency anemia type Expected: 06/12/2024 (Approximate), Expires: 05/15/2025 [facility] Comment on above: Expected: 06/12/2024 (Approximate), Expi res: 05/15/2025 Start: 06-12-2024 End: 05-15-2025 Lipid 1996 panel - Serum or Plasma Lipid panel Lab Routine Mixed hyperlipidemia ([facility]) Expected: 06/12/2024 (Approximate), Expires: 05/15/2025 [facility] Comment on above: Expected: 06/12/2024 (Approximate), Expi res: 05/15/2025 Start: 06-12-2024 End: 05-15-2025 Microalbumin/Creatinine panel in random Urine Microalbumin / creatinine, urine ratio Lab Routine Primary hypertension ([facility]) Type 2 diabetes mellitus without complication, with long-term current use of insulin ([facility]) Expected: 06/12/2024 (Approximate), Expires: 05/15/2025 [facility] Comment on above: Expected: 06/12/2024 (Approximate), Expi res: 05/15/2025 Start: 06-12-2024 End: 05-15-2025 Urinalysis complete panel - Urine Urinalysis with refl ex microscopic (clean catch) Lab Routine Primary hypertension ([facility]) Type 2 diabetes mellitus without complication, with long-term current use of insulin ([facility]) Expected: 06/12/2024 (Approximate), Expires: 05/15/2025 [facility] Comment on above: Expected: 06/12/2024 (Approximate), Expi res: 05/15/2025 Start: 06-11-2024 Hemoglobin A1c measurement Diabetes: Hemoglobin A1C [facility] Start: 06-06-2024 Medicare Annual Wellness (AWV) Medicare Annual Wellness (AWV) [facility] Start: 05-15-2024 End: 05-15-2024 Patient encounter procedure [facility] Comment on above: 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 ([facility]/HCC) (Primary Dx); Centrilobular emphysema ([facility]/HCC); Type 2 diabetes mellitus with other specified complication ([facility]/HCC); Erectile dysfunction due to diseases classified elsewhere; Type 2 diabetes mellitus 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 ([facility]/HCC); Paroxysmal atrial fibrillation ([facility]/HCC); Primary hypertension ([facility]/HCC); PAD (peripheral artery disease) ([facility]/HCC); Type 2 diabetes mellitus without complication, with long-term current use of insulin ([facility]); Iron deficiency anemia, unspecified iron deficiency anemia type; Mixed hyperlipidemia ([facility]) Start: 05-04-2024 Urine screening for protein Diabetes: Urine Protein Screening [facility] Start: 04-03-2024 End: 04-03-2024 Patient encounter procedure 04/03/2024 10:30 AM EST Office Visit [facility] [address] [place] [address] Marlin Koch, WOOD REPATCHER-FURNACE OPERATOR [address] [place] [address] [facility] Start: 03-26-2024 End: 03-26-2024 Clinical Support 03/26/2024 10:30 AM EST Clinical Support [facility] [address] [place] [address] [facility] Start: 03-22-2024 End: 03-22-2024 Clinical Support 03/22/2024 10:30 AM EST Clinical Support [facility] [address] [place] [address] [facility] Start: 03-12-2024 End: 03-12-2024 Clinical Support 03/12/2024 10:30 AM EST Clinical Support [facility] [address] [place] [address] [facility] Start: 03-08-2024 End: 03-08-2024 Clinical Support 03/08/2024 10:30 AM EST Clinical [address] [facility] [address] [place] [address] [facility] Start: 03-07-2024 End: 03-07-2024 Clinical Support 03/07/2024 10:30 AM EST Clinical [address] [facility] [address] [place] [address] [facility] Start: 03-05-2024 End: 03-05-2024 Patient encounter procedure 03/05/2024 11:45 AM EST Office Visit [facility] [address] [place] [address] Marlin Koch, WOOD REPATCHER-FURNACE OPERATOR [address] [place] [address] [facility] Start: 03-05-2024 End: 03-05-2024 Clinical Support 03/05/2024 10:30 AM EST Clinical [address] [facility] [address] [place] [address] [facility] Start: 03-01-2024 End: 03-01-2024 Clinical Support 03/01/2024 10:30 AM EST Clinical Support [facility] [address] [place] [address] [facility] Start: 02-29-2024 End: 02-14-2025 Hemoglobin A1c/Hemoglobin.total in Blood Hemoglobin A1c Lab Routine Type 2 diabetes mellitus without complication, with long-term current use of insulin ([facility]) Expected: 02/29/2024 (Approximate), Expires: 02/14/2025 [facility] [employer] Work Phone: Comment on above: Expected: 02/29/2024 (Approximate), Expi res: 02/14/2025 Start: 02-29-2024 End: 02-29-2024 Clinical Support 02/29/2024 10:30 AM EST Clinical Support [facility] [address] [place] [address] [facility] Start: 02-28-2024 Hemoglobin A1c measurement Diabetes: Hemoglobin A1C [facility] [employer] Start: 02-27-2024 End: 02-27-2024 Clinical Support 02/27/2024 10:30 AM EST Clinical Support [facility] [address] [place] [address] [facility] Start: 02-22-2024 End: 02-22-2024 Clinical Support 02/22/2024 10:30 AM EST Clinical Support [facility] [address] [place] [address] [facility] Start: 02-20-2024 End: 02-20-2024 Clinical Support 02/20/2024 10:30 AM EST Clinical Support [facility] [address] [place] [address] [facility] Start: 02-16-2024 End: 02-16-2024 Clinical Support 02/16/2024 10:30 AM EST Clinical Support [facility] [address] [place] [address] 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 [address] [place] [address] [facility] Start: 02-13-2024 End: 02-13-2024 Clinical Support 02/13/2024 10:30 AM EST Clinical Support [facility] [address] [place] [address] [facility] Start: 02-09-2024 End: 02-09-2024 Clinical Support 02/09/2024 10:30 AM EST Clinical Support [facility] [address] [place] [address] [facility] Start: 02-08-2024 End: 02-08-2024 Clinical Support 02/08/2024 10:30 AM EST Clinical Support [facility] [address] [place] [address] [facility] Start: 02-06-2024 End: 02-06-2024 Clinical Support 02/06/2024 10:30 AM EST Clinical Support [facility] [address] [place] [address] [facility] Start: 02-02-2024 End: 02-02-2024 Clinical Support 02/02/2024 10:30 AM EST Clinical Support [facility] [address] [place] [address] [facility] Start: 02-01-2024 End: 02-01-2024 Clinical Support 02/01/2024 10:30 AM EST Clinical Support [facility] [address] [place] [address] [facility] Start: 01-30-2024 End: 01-30-2024 Clinical Support 01/30/2024 10:30 AM EST Clinical Support [facility] [address] [place] [address] [facility] Start: 01-26-2024 End: 01-26-2024 Clinical Support 01/26/2024 10:30 AM EDT Clinical [address] [facility] [address] [place] [address] [facility] Start: 01-25-2024 End: 01-25-2024 Clinical Support 01/25/2024 10:30 AM EDT Clinical Support [facility] [address] [place] [address] [facility] Start: 01-23-2024 End: 01-23-2024 Clinical Support 01/23/2024 10:30 AM EDT Clinical [address] [facility] [address] [place] [address] [facility] Start: 01-19-2024 End: 01-19-2024 Clinical Support 01/19/2024 10:30 AM EDT Clinical Support [facility] [address] [place] [address] [facility] Start: 01-18-2024 End: 01-18-2024 Clinical Support 01/18/2024 10:30 AM EDT Clinical Support [facility] [address] [place] [address] [facility] Start: 01-16-2024 End: 01-16-2024 Clinical Support 01/16/2024 10:30 AM EDT Clinical Support [facility] [address] [place] [address] [facility] Start: 01-12-2024 End: 01-12-2024 Clinical Support 01/12/2024 10:30 AM EDT Clinical Support [facility] [address] [place] [address] [facility] Start: 01-11-2024 End: 01-11-2024 Clinical Support 01/11/2024 10:30 AM EDT Clinical Support [facility] [address] [place] [address] [facility] Start: 01-09-2024 End: 01-09-2024 Clinical Support 01/09/2024 10:30 AM EDT Clinical Support [facility] [address] [place] [address] [facility] Start: 01-05-2024 End: 01-05-2024 Clinical Support 01/05/2024 10:30 AM EDT Clinical Support [facility] [address] [place] [address] [facility] Start: 01-04-2024 End: 01-03-2025 XR Thoracic spine 3 Views XR thoracic spine 3 views Imaging Routine Chronic thoracic back pain, unspecified back pain laterality Expected: 01/04/2024, Expires: 01/03/2025 [facility] Work Phone: Comment on above: Expected: 01/04/2024, Expires: Start: 01-04-2024 End: 01-04-2024 Patient encounter procedure [facility] Comment on above: Arrived Start: 01-03-2024 Hemoglobin A1c measurement Diabetes: Hemoglobin A1C [facility] Start: 01-02-2024 End: 01-02-2024 Clinical Support 01/02/2024 10:30 AM EDT Clinical Support [facility] [address] [place] [address] [facility] Start: 12-29-2023 End: 12-29-2023 Clinical Support 12/29/2023 10:30 AM EDT Clinical Support [facility] [address] [place] [address] [facility] Start: 12-28-2023 End: 12-28-2023 Clinical Support 12/28/2023 10:30 AM EDT Clinical Support [facility] [address] [place] [address] [facility] Start: 12-26-2023 End: 12-26-2023 Clinical Support 12/26/2023 10:30 AM EDT Clinical Support [facility] [address] [place] [address] [facility] Start: 12-22-2023 End: 12-22-2023 Clinical Support 12/22/2023 10:30 AM EDT Clinical Support [facility] [address] [place] [address] [facility] Start: 12-21-2023 End: 12-21-2023 Clinical Support 12/21/2023 10:30 AM EDT Clinical Support [facility] [address] [place] [address] [facility] Start: 11-28-2023 Glaucoma screening Diabetes: Retinopathy Screening [facility] Comment on above: Postponed from 1956 (Other Patient Reasons) Start: 11-27-2023 COVID-19 Vaccine ( season) COVID-19 Vaccine ( season) [facility] Start: 11-27-2023 COVID-19 Vaccine ( season) COVID-19 Vaccine ( season) [facility] Start: 11-27-2023 Influenza vaccination [facility] Start: 11-22-2023 End: 11-22-2023 Patient encounter procedure 11/22/2023 11:20 AM EDT Office Visit [facility] [address] [place] [address] Marisol Boyce NP [address] [place] [address] Other thrombophilia (CMS/HCC) [facility] Comment on above: Other thrombophilia (CMS/HCC) Start: 10-27-2023 Screening for malignant neoplasm of colon [facility] Start: 08-02-2023 Hemoglobin A1c measurement Diabetes: Hemoglobin A1C [facility] Start: 07-23-2023 Adult BMI Screening Adult BMI Screening [facility] Start: 07-23-2023 Tobacco Screening Tobacco Screening [facility] Start: 06-24-2023 Screening for malignant neoplasm of colon FOBT [facility] Start: 06-12-2023 Urine screening for protein Diabetes: Urine Protein Screening [facility] Start: 06-07-2023 End: 06-07-2023 Patient encounter procedure 06/07/2023 10:30 AM EDT Office Visit [facility] [address] [place] [address] Marisol Boyce, CATALINA [address] [place] [address] [facility] Start: 03-14-2023 Hemoglobin A1c measurement Diabetes: Hemoglobin A1C [facility] Start: 10-26-2021 Screening for malignant neoplasm of colon Colonoscopy [facility] Start: 05-07-2014 Administration of varicella zoster vaccine Zoster (Shingles) Vaccine (2 of 3) [facility] Start: 09-14-2011 Abdominal aortic aneurysm screening Abdominal Aortic Aneurysm (AAA) Screen [facility] Start: 09-14-2011 Fall Risk Screening Fall Risk Screening [facility] Start: 1965 DTaP,Tdap and Td Vaccines (1 - Tdap) DTaP,Tdap and Td Vaccines (1 - Tdap) [facility] Start: 1958 Depression Screening Depression Screening [facility] Start: 1956 Glaucoma screening Diabetes: Retinopathy Screening [facility] Start: 1946 Medicare Annual Wellness (AWV) Medicare Annual Wellness (AWV) [facility] Start: 1946 Medicare Annual Wellness Visit Medicare Annual Wellness Visit [facility] Start: 1946 Screening for malignant neoplasm of colon [facility] Start: 1946 Tobacco Counseling Tobacco Counseling [facility] Cardiopulmonary rehabilitation C ardiopulmonary rehabilitation Cardiac Services Ordered: 03/19/2024 [facility] Comment on above: Ordered: 03/19/2024 Cardiopulmonary rehabilitation [...] polyp 1 Occurrences starting 03/05/2024 until 03/05/2025 [employer] Work Phone: Comment on above: 1 Occurrences starting 03/05/2024 until 03/05/2025 End: 03-05-2025 Esophagogastroduodenoscopy EGD GI Routine 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 1 Occurrences starting 03/05/2024 until 03/05/2025 [employer] Comment on above: 1 Occurrences starting 03/05/2024 until 03/05/2025 Immunizations Immunization Date Immunization Notes Care Provider [facility] 02-09-2024 influenza, high dose seasonal, preservative-free Marisol Boyce MINILAB OPERATOR Work Phone: [facility] 02-09-2024 influenza virus vacc ine, unspecified formulation [facility] 02-15-2023 influenza virus vacc ine, unspecified formulation Marisol Aichholz MINILAB OPERATOR Work Phone: [facility] 02-15-2023 pneumococcal polysaccharide vaccine, 23 valent Marisol Aichholz MINILAB OPERATOR Work Phone: [facility] 01-31-2023 influenza virus vacc ine, unspecified formulation YAMILEX ARMSTRONG [facility] 01-31-2023 Influenza, High-dose Seasonal, Quadrivalent, Preservative Free Marisol Aichholz MINILAB OPERATOR Work Phone: [facility] 03-11-2022 SARS-CoV-2 (COVID-19 ) [id number] Deja Lue [facility] 02-12-2022 influenza virus vacc ine, unspecified formulation Deja Lue [facility] 02-12-2022 Influenza, High-dose Seasonal, Quadrivalent, Preservative Free Marisol Aichholz MINILAB OPERATOR Work Phone: [facility] 10-17-2021 influenza virus vacc ine, unspecified formulation Marisol Aichholz MINILAB OPERATOR Work Phone: [facility] 10-17-2021 pneumococcal polysaccharide vaccine, 23 valent Marisol Aichholz MINILAB OPERATOR Work Phone: [facility] 08-06-2021 SARS-CoV-2 mRNA (wiiqbdegvhz-luju-vjaniu e) vaccine Deja Lue [facility] 02-02-2021 influenza virus vacc ine, unspecified formulation Deja Lue [facility] 02-02-2021 Influenza, High-dose Seasonal, Quadrivalent, Preservative Free Marisol Aicpilarz MINILAB OPERATOR Work Phone: [facility] 01-05-2021 SARS-CoV-2 (COVID-19 ) mRNA BNT-162b2 vax Deja Lue [facility] 05-29-2020 SARS-CoV-2 (COVID-19 ) mRNA-1273 vaccine Carlitos RICE [facility] 05-21-2020 SARS-CoV-2 (COVID-19 ) mRNA BNT-162b2 vax Deja Lue [facility] Comment on above: Result Comment: 2022: [id number] 05-08-2020 SARS-CoV-2 (COVID-19 ) mRNA-1273 vaccine Carlitos RICE [facility] 05-01-2020 SARS-CoV-2 (COVID-19 ) mRNA BNT-162m5 vax Deja Lue [facility] Comment on above: Result Comment: 2022: [id number] 11-30-2019 influenza virus vacc ine, unspecified formulation Deja Lue [facility] 11-30-2019 Influenza, High-dose Seasonal, Quadrivalent, Preservative Free Marisol Aichholz MINILAB OPERATOR Work Phone: [facility] 11-30-2019 pneumococcal conjuga te vaccine, 13 valent Deja Lue [facility] 11-27-2019 influenza virus vacc ine, unspecified formulation Carlitos RICE [facility] 12-29-2018 influenza virus vacc ine, unspecified formulation Deja Lue [facility] 12-29-2018 Seasonal trivalent influenza vaccine, adjuvanted, preservative free Marisol Aichholz MINILAB OPERATOR Work Phone: [facility] 01-28-2018 influenza virus vacc ine, unspecified formulation Deja Lue [facility] 01-28-2018 influenza, high dose seasonal, preservative-free Marisol Aichholz MINILAB OPERATOR Work Phone: [facility] 02-11-2017 influenza virus vacc ine, unspecified formulation Deja Lue [facility] 02-11-2017 Seasonal trivalent influenza vaccine, adjuvanted, preservative free Marisol Aichholz MINILAB OPERATOR Work Phone: [facility] 01-17-2015 influenza virus vacc ine, unspecified formulation Deja Lue [facility] 01-17-2015 influenza, high dose seasonal, preservative-free Marisol Aichholz MINILAB OPERATOR Work Phone: [facility] 12-10-2014 pneumococcal polysaccharide vaccine, 23 valent Deja Lue [facility] 03-12-2014 influenza virus vacc ine, unspecified formulation Deja Lue [facility] 03-12-2014 influenza, seasonal, injectable Marisol Aichholz MINILAB OPERATOR Work Phone: [facility] 03-12-2014 zoster vaccine, live Deja L ue [facility] 03-12-2014 zoster vaccine, unspecified formulation [facility] 01-10-2013 influenza virus vacc ine, unspecified formulation Deja Perez [facility] 01-10-2013 influenza, seasonal, injectable Marisol Maganajesstu MINILAB OPERATOR Work Phone: [facility] Payers Date Payer Category Payer Self-pay 2021 Private Health Insurance [employer] [id number] 2018 Commercial Indemnity [facility] [id number] 2018 Unknown [id number] [id number]. [id number] 2012 Medicare [id number]. 1.13.693.2. [id number] 1959 Medicare [id number] 1959 Unknown [id number] 1946 Unknown [id number] 2.16.840.1.505646.3.579.2. 593 1946 Unknown [id number] 2.16.840.1.790456.3.579.2. 593 1946 Unknown [id number] 2.16.840.1.209417.3.579.2. 593 1946 Unknown [id number] 2.16.840.1.785507.3.579.2. 593 1946 Unknown [id number] 2.16.840.1.977187.3.579.2. 593 1946 Unknown [id number] 2.16.840.1.057723.3.579.2. 1286 1946 Unknown [id number] 2.840.1.876763.3.579.2. 1286 1946 Unknown [id number] 2.16840.1.258724.3.579.2. 727 1946 Unknown [id number] 2.16.840.1.680303.3.579.2. 727 1946 Unknown [id number] 2.840.1.035045.3.579.2. 727 1946 Unknown [id number] 2.840.1.064876.3.579.2. 727 1946 Unknown [id number] 2.16840.1.512417.3.579.2. 1259 1946 Unknown [id number] 2.16.840.1.134577.3.579.2. 1259 1946 Unknown [id number] 2.16.840.1.692959.3.579.2. 1259 1946 Unknown [id number] 2.16840.1.245346.3.579.2. 1259 1946 Unknown [id number] 2.16.840.1.883770.3.579.2. 1259 1946 Unknown [id number] 2.16.840.1.566683.3.579.2. 9 1946 Unknown [id number] 2.16.840.1.966162.3.579.2. 9 1946 Unknown [id number] 2.16.840.1.977744.3.579.2. 1285 1946 Unknown [id number] 2.16.840.1.224455.3.579.2. 1285 1946 Unknown [id number] 2.840.1.427603.3.579.2. 1285 1946 Unknown [id number] 2.840.1.295525.3.579.2. 1285 1946 Unknown [id number] 2.840.1.931042.3.579.2. 1285 1946 Unknown [id number] 2.840.1.133640.3.579.2. 1285 1946 Unknown [id number] 2.840.1.290166.3.579.2. 1285 1946 Unknown [id number] 2.840.1.255575.3.579.2. 1285 1946 Unknown [id number] 2.16840.1.213919.3.579.2. 1285 1946 Unknown [id number] 2.16840.1.999505.3.579.2. 1285 1946 Unknown [id number] 2.16840.1.343249.3.579.2. 1285 1946 Unknown [id number] 2.16840.1.989166.3.579.2. 1285 1946 Unknown [id number] 2.16.840.1.901469.3.579.2. 1285 1946 Unknown [id number] 2.16.840.1.510112.3.579.2. 1285 1946 Unknown [id number] 2.16.840.1.431654.3.579.2. 1285 1946 Unknown [id number] 2.16.840.1.484269.3.579.2. 1285 1946 Unknown [id number] 2.16.840.1.453493.3.579.2. 1285 1946 Unknown [id number] 2.840.1.420414.3.579.2. 1285 1946 Unknown [id number] 2.840.1.532210.3.579.2. 1285 1946 Unknown [id number] 2.840.1.533077.3.579.2. 1285 1946 Unknown [id number] 2.840.1.572394.3.579.2. 1285 1946 Unknown [id number] 2.840.1.934772.3.579.2. 1285 1946 Unknown [id number] 2.840.1.900829.3.579.2. 1285 1946 Unknown [id number] 2.840.1.633009.3.579.2. 1285 1946 Unknown [id number] 2.840.1.144940.3.579.2. 1285 1946 Unknown [id number] 2.16840.1.332361.3.579.2. 1285 1946 Unknown [id number] 2.16.840.1.082125.3.579.2. 1285 1946 Unknown [id number] 2.16840.1.669825.3.579.2. 1285 1946 Unknown [id number] 2.16.840.1.796753.3.579.2. 1285 1946 Unknown [id number] 2.16.840.1.845089.3.579.2. 1285 1946 Unknown [id number] 2.16.840.1.230886.3.579.2. 1285 1946 Unknown [id number] 2.16.840.1.036835.3.579.2. 1285 1946 Unknown [id number] 2.16.840.1.969354.3.579.2. 1285 1946 Unknown [id number] 2.16.840.1.684631.3.579.2. 1285 1946 Unknown [id number] 2.16.840.1.020655.3.579.2. 1285 1946 Unknown [id number] 2.16.840.1.788512.3.579.2. 1285 1946 Unknown [id number] 2.16.840.1.479458.3.579.2. 1285 1946 Unknown [id number] 2.16.840.1.444718.3.579.2. 1285 1946 Unknown [id number] 2.16840.1.454022.3.579.2. 1286 Unknown [id number] 2.16.840.1.736202.3.579.2. 531 Social History Date Type Detail Facility Start: 06-18-2021 End: 04-11-2023 Tobacco smoking status Ex-smoker (finding) [facility] [employer] Start: 04-11-2023 End: 06-07-2023 Sex Assigned At Male [facility] [place] [employer] Tobacco smoking status Never [facility] End: 03-28-2020 History of tobacco use Current smoker [facility] End: 03-28-2020 History of tobacco use Cigarette Smoker [facility] Start: 04-11-2023 End: 03-05-2024 Tobacco use and exposure Smokeless tobacco non-user [facility] Start: 04-11-2023 End: 09-26-2024 Alcohol intake Current drinker of alcohol (finding) [facility] Start: 04-11-2023 End: 06-07-2023 History of Social function [facility] Start: 04-10-2023 Alcohol Comment monthly or less [facility] Start: 1945 Sex Assigned At [...] [facility] Start: 01-04-2017 Alcohol [facility] Start: 03-05-2013 End: 10-31-2014 Sex Male (finding) [facility] Start: 04-04-2024 [facility] Start: 04-04-2024 Alcoholic beverage intake Ex-drinker (finding) [facility] Start: 04-04-2024 Tobacco Comment Pack every 3 w eeks as of 04/04/24 [facility] if ever smoked [facility] Work Phone: Start: 1945 Sex Assigned At Male F [facility] Sexual Orientation [facility] Medical Equipment Procedure Code Equipment Code Equipment Origin al Text Equipment Identifier Dates Start: 04-14-2019 End: 03-05-2024 Functional Status Date Assessment Result Facility 08-15-2024 Patient Health Questionnaire 2 item (PHQ-2) [Reported] [facility] 08-15-2024 How difficult have t hese problems made it for you to do your work, take care of things at home, or get along with other people? Not difficult at all 08/15/2024 10:50 AM EDT AB GRIFFITH Not difficult at all [facility] 07-11-2023 Functional Status N/A [facility] 06-18-2022 Functional Status N/A [facility] Clinical Notes 06-18-2021 to 10-09-2024 Marisol Boyce NP - 09/26/2024 10:15 AM AB YAN - 09/26/2024 9:00 AM Cristiano Boyce NP - 09/26/2024 9:00 AM Cristiano Boyce NP - 09/26/2024 6:02 AM EDTPatient Instructions Note Date & Type Note Facility 10-09-2024 Note [facility] Note Chief Complaint: [...] Final Discharge Diagnosis: 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 amiodarone 200 mg tablet ??? carvedilol 3.125 mg tablet ??? lisinopril 20 mg tablet These medications were sent to [facility] (more content not included)... [facility] 09-26-2024 History of Present illness Narrative [...] spinal stenosis 06/07/2023 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 03/02/2023 COVID-19 virus detected Depression Erectile dysfunction 06/07/2023 Fatigue Granuloma annulare Hearing loss, bilateral Hyperlipidemia 06/07/2023 WESTLEY (iron deficiency anemia) 04/11/2023 Lumbar spondylosis Lumbosacral pain 04/11/2023 CORNELIA (obstructive sleep apnea) 06/07/2023 PAD (peripheral artery disease) 03/25/2023 Primary hypertension 04/11/2023 Tobacco user 06/07/2023 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 Type 2 diabetes mellitus without complication, with long-term current use of insulin ([facility]) 03/22/2023 Past Surgical History: Procedure Laterality Date [...] complication, with long-term current use of insulin ([facility]) Check blood sugars daily, notify if <70 [...] filling lisinopril 5mg dose Also contacted the [facility] pharmacy to have them deactivate the [...] filling lisinopril 5mg dose Also contacted the [facility] pharmacy to have them deactivate the lisinopril 5mg script spoke with Juliet at 10:18am Associated Problem(s): Dizziness and giddiness Last appt had some mild orthostatic changes in BP Cardiology had him stop amlodipine No orthostatics today ?side effect meds, vs cervical pathology, vascular? Send to see neuro documented in this encounter [facility] 09-26-2024 Telephone encounter Note Please contact company regarding his eliquis to see why he has not received it yet?? Also call pt let him know do NOT take the 5mg lisinopril, he should only be taking the 20mg lisinopril dose LA [facility] 09-26-2024 Miscellaneous Notes Please contact company regarding his eliquis to see why he has not received it yet?? Also call pt let him know do NOT take the 5mg lisinopril, he should only be taking the 20mg lisinopril dose LA documented in this encounter [facility] 09-26-2024 Instructions Marisol Boyce NP - 09/26/2024 9:00 AM EDT Neurology: will call you, Ed office We will clarify the lisinopril dose with heart doctor documented in this encounter [facility] 08-15-2024 History of Present illness Narrative Associated Problem(s): Dizziness and giddiness Only notes when getting up from sitting to standing Orthostatics in office: [id number] Sittin/56 Standin/54 I will reach out to [...] discs Pt states he was up in [place] for pain mgmt for injections that helped and he wouldn't mind getting a referral to do again Pt needs a refill on his metformin Pt states he has not heard from the [employer] Pt seen urologist Pt also had colonoscopy done [employer] October 09 Images from the original note [...] discs Pt states he was up in [place] for pain mgmt for injections that helped and he wouldn't mind getting a referral to do again Pt needs a refill on his metformin Pt states he has not heard from the [employer] Pt seen urologist Pt also had colonoscopy done [employer] October 09 CGM: 3 173 avg, 58% [...] being taken. He does not see a aircraft sheet metal mechanic.Eye exam is not current. Hypertension This is [...] no compliance problems. Hypertensive end-organ damage includes CAD/CT and PVD. There is no history of [...] Verio test strip 1 each, Other, Daily Semglrosa isela, yfgn, 100 UNIT/ML pen INJECT UP TO [...] 06/07/2023 Bilateral carotid artery disease, unspecified type ([facility]) 06/07/2023 BPH (benign prostatic hyperplasia) 06/07/2023 Cervical spinal stenosis 06/07/2023 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 ([facility]) 03/02/2023 COVID-19 virus detected Depression ([facility]) Erectile dysfunction 06/07/2023 Fatigue Granuloma annulare Hearing loss, bilateral Hyperlipidemia ([facility]) 06/07/2023 WESTLEY (iron deficiency anemia) 04/11/2023 Lumbar spondylosis Lumbosacral pain 04/11/2023 CORNELIA (obstructive sleep apnea) 06/07/2023 PAD (peripheral artery disease) ([facility]) 03/25/2023 Primary hypertension ([facility]) 04/11/2023 Tobacco user 06/07/2023 Tubulovillous adenoma of [...] insulin, metformin A1c: 6.3% 07/11/24 Primary hypertension ([facility]) Please check blood pressure daily and record [...] info on advanced directives as well Hyperlipidemia ([facility]) Continue statin Check labs yearly, and prn dose changes Bilateral carotid artery disease, unspecified type ([facility]) Cont asa, statin Periodic monitoring with US A-fib ([facility]) Is on amiodirone as well as anti coagulation NSR today Cont with cardiology Centrilobular emphysema ([facility]) Noted on imaging, does not take any medications on a regular basis Type 2 diabetes mellitus with other specified complication PAD, CAD, ED Dizziness and giddiness Only notes when getting up from sitting to standing Orthostatics in office: [id number] Sittin/56 Standin/54 I will reach out to [...] manages your CORNELIA: documented in this encounter [facility] 08-15-2024 Instructions Marisol Boyce NP - 08/15/2024 10:30 AM EDT Drink more fluids, will reach out to cardiology for advice on BP documented in this encounter [facility] 07-18-2024 Note Patient Education Urology Benign [...] Follow these instructions at home: ??? Take clby-ppe-ddijfxe and prescription medicines only as told by [...] do not get (more content not included)... [facility] 05-15-2024 History of Present illness Narrative Associated [...] being taken. He does not see a aircraft sheet metal mechanic.Eye exam is not current. Hypertension This is [...] no compliance problems. Hypertensive end-organ damage includes CAD/CT, heart failure and PVD. There is no [...] 06/07/2023 Bilateral carotid artery disease, unspecified type ([facility]) 06/07/2023 BPH (benign prostatic hyperplasia) 06/07/2023 Cervical spinal stenosis 06/07/2023 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 ([facility]) 03/02/2023 COVID-19 virus detected Depression ([facility]) Erectile dysfunction 06/07/2023 Fatigue Granuloma annulare Hearing loss, bilateral Hyperlipidemia ([facility]) 06/07/2023 WESLTEY (iron deficiency anemia) 04/11/2023 Lumbar spondylosis Lumbosacral pain 04/11/2023 CORNELIA (obstructive sleep apnea) 06/07/2023 PAD (peripheral artery disease) ([facility]) 03/25/2023 Primary hypertension ([facility]) 04/11/2023 Tobacco user 06/07/2023 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 Type 2 diabetes mellitus without complication, with long-term current use of insulin ([facility]) 03/22/2023 Past Surgical History: Procedure Laterality Date [...] Addressed This Visit 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 ([facility]) - Primary Follows with cardiology Current meds: asa, statin, b cesilia, Relevant Orders Comprehensive metabolic panel Type 2 diabetes mellitus without complication, with long-term current use of insulin ([facility]) Check blood sugars daily, notify if <70 [...] ratio Hemoglobin A1c PAD (peripheral artery disease) ([facility]) Continue asa and statin Primary hypertension ([facility]) Please check blood pressure daily and record [...] Orders CBC and differential Iron level Hyperlipidemia ([facility]) Continue statin Check labs yearly, and prn dose changes Relevant Orders Comprehensive metabolic panel Lipid panel Erectile dysfunction A-fib ([facility]) Is on amiodirone as well as anti coagulation NSR today Cont with cardiology Relevant Orders CBC and differential Centrilobular emphysema (CMS/HCC) Noted on imaging, does not take any medications on a regular basis Type 2 diabetes mellitus with other specified complication (CMS/HCC) PAD, CAD, ED Relevant Orders Comprehensive metabolic panel Type 2 diabetes mellitus 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 (CMS/HCC) Primary insomnia Recommend no napping during the day, can try melatonin up to 10mg at bedtime If not helpful consider trazadone, will call if he needs it Associated Problem(s): Hyperlipidemia (CMS/HCC) Continue statin Check labs yearly, and prn dose changes Associated Problem(s): WESTLEY (iron deficiency anemia) Check labs in 06/19 Associated Problem(s): Type 2 diabetes mellitus without complication, with long-term current use of insulin (CMS/HCC) Check blood sugars daily, notify if <70 [...] diabetes mellitus with other specified complication (CMS/HCC) PAD, CAD, ED Associated Problem(s): Primary hypertension (CMS/HCC) Please check blood pressure daily and record DASH diet Limit caffeine Take medication as directed Contact office if chest pain, pressure, dizziness, shortness of breath, swelling legs Recommend slow position changes Cont current meds: lisinopril, carvedilol Associated Problem(s): PAD (peripheral artery disease) (CMS/HCC) Continue asa and statin Associated Problem(s): 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 (CMS/HCC) Follows with cardiology Current meds: asa, statin, b cesilia, Associated Problem(s): A-fib (CMS/HCC) Is on amiodirone as well as anti coagulation NSR today Cont with cardiology Associated Problem(s): Centrilobular emphysema (CMS/HCC) Noted on imaging, does not take any medications on a regular basis documented in this encounter [facility] 05-15-2024 Instructions Marisol Boyce NP - [...] due AFTER 06/14/24 documented in this encounter [facility] 04-18-2024 Miscellaneous Notes ----- Message from Dr. Sabino Mauricio DO [...] he may get it from his PCP. Thanks, Dr. Mcgarry documented in this encounter [facility] 04-18-2024 Telephone encounter Note ----- Message from [...] get it from his PCP. ThanksDr. Mcgarry [employer] 04-04-2024 History of Present illness Narrative Images [...] chest pain and shortness of breath. His paedodontist is Dr. Campo in [place]. Review of Systems Constitutional: Negative for fever [...] COVID-19 11/2021 Diabetes mellitus type 2, controlled ([facility]) Dizziness HL (hearing loss) hearing aid both ears Hyperlipidemia Hypertension Injury of back Low back pain Myocardial infarction ([facility]) 2005 Pancreatitis 2017 Peripheral arterial occlusive disease ([facility]) Visual impairment glasses Wears dentures Past Surgical History: Procedure Laterality Date ARTHROSCOPY SHOULDER WITH SUBACROMIAL DECOMPRESSION AND DEBRIDEMENT TYPE 1 SLAP LESION Left 01/11/2017 Performed by Jr Eliezer Gifford DO at [facility] CARDIAC CATHETERIZATION 5 stents, most recent placed 12/2004 CATARACT EXTRACTION CHOLECYSTECTOMY COLONOSCOPY N/A 10/26/2018 Performed by Sabino Mauricio DO at [facility] EGD N/A 05/03/2019 Performed by Sabino Mauricio DO at [facility] EGD, DILATATION N/A 05/03/2019 Performed by Sabino Mauricio DO at [facility] INJECTION BLOCK NERVE MEDIAL BRANCH: bilat T 7/8 8/9 Bilateral 03/05/2022 Performed by Gabriel Hanson MD at [facility] INJECTION BLOCK NERVE MEDIAL BRANCH: bilat T 7/8 8/9 Bilateral 01/29/2022 Performed by Gabriel Hanson MD at [facility] INJECTION BLOCK NERVE MEDIAL BRANCH: right L 3/4 4/5 Right 09/05/2020 Performed by Gabriel Hanson MD at [facility] INJECTION BLOCK NERVE MEDIAL BRANCH: right [id number] Right 10/10/2020 Performed by Gabriel Hanson MD at [facility] LARGE JOINT BURSA: left hip Left 04/13/2019 Performed by Gabriel Hanson MD at [facility] MEDIAL BRANCH NERVE BLOCK: left [id number] Left 10/26/2019 Performed by Gabriel Hanson MD at [facility] INJECTION SI JOINT-Left Left 10/20/2018 Performed by Gabriel Hanson MD at [facility] INJECTION STEROID EPI 1 WITH SEDATION: left [id number] Left 08/03/2019 Performed by Gabriel Hanson MD at [facility] INJECTION STEROID EPI 1 WITH SEDATION: left [id number] Left 09/03/2019 Performed by Gabriel Hanson MD at [facility] ADELE PROCEDURE SHOULDER Left 01/11/2017 Performed by Jr Eliezer Gifford DO at [facility] RADIOFREQUENCY ABLATION SPINAL: Left T 7/8 8/9 Left 04/23/2022 Performed by Gabriel Hanson MD at [facility] RADIOFREQUENCY ABLATION SPINAL: Right T 7/8 8/9 Right 04/09/2022 Performed by Gabriel Hanson MD at [facility] No Known Allergies Current Outpatient Medications: albuterol [...] Strain: Low Risk (11/10/2023) Received from [facility] Overall Financial Resource Strain (CARDIA) Difficulty of Paying Living Expenses: Not hard at all Food Insecurity: No Food Insecurity (04/04/2024) Hunger Screening Food Insecurity - Worry: Never True Food Insecurity - Inability: Never True Transportation Needs: No Transportation Needs (11/10/2023) Received from [facility] Transportation In the past 12 months, has lack of transportation kept you from medical appointments or from getting medications?: No Lack of Transportation (Non-Medical): Not on file Physical Activity: Inactive (06/07/2023) Received from [facility] Exercise Vital Sign Days of Exercise per Week: 0 days Minutes of Exercise per Session: 0 min Stress: Stress Concern Present (06/07/2023) Received from [facility] [place] [facility] [employer] [facility] - Occupational Stress Questionnaire Feeling of Stress : To some extent Social Connections: Moderately Integrated (06/07/2023) Received from [facility] Social Connection and Isolation Panel [NHANES] Frequency of Communication with Friends and Family: More than three times a week Frequency of Social Gatherings with Friends and Family: Once a week Attends Caodaism Services: More than 4 times per year Active Member of Clubs or Organizations: No Attends Club or Organization Meetings: Never Marital Status: Interpersonal Safety: Not At Risk (11/10/2023) Received from [facility] Humiliation, Afraid, Rape, and Kick questionnaire Fear of Current or Ex-Partner: No Emotionally Abused: No Physically Abused: No Sexually Abused: No Housing Instability: Low Risk (11/10/2023) Received from [facility] Housing Stability Vital Sign Unable to Pay for Housing in the Last Year: Not on file Number of Places Lived in the Last Year: Not on file In the last 12 months, was there a time when you did not have a steady place to sleep or slept in a retirement (including now)?: No Family History Problem Relation [...] patient/family/caregiver Referring and communicating with other health aged or disabled care worker Encounter for colonoscopy due to history of colonic polyp [Z12.11, Z86.0100] SATURNINO BHANDARI [facility] Physicians General Surgery Cos [employer]/Ben[employer] This note was created with the assistance of a speech recognition program. While intending to generate a timely document that accurately reflects the content of the visit, no guarantee can be provided that every grammatical or spelling mistake has been or will be identified or corrected. Thank you for your understanding. SATURNINO Bhandari 04/04/24 1156 documented in this encounter [facility] [employer] [facility] 03-14-2024 [facility] Chief Complaint: [...] Final Discharge Diagnosis: 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 ([facility]) Admission Diagnosis: A-fib ([facility]) [I48.91] Hospital course: 78 yo M with [...] MD CARD Ed Hos 11/07/2023 7:30 AM [facility] MR 2 [facility] ORTH MR MPORTHO 11/08/2023 2:00 PM Peter Christensen MD [facility] HeartVAS Your medication list START taking these [...] Your Medications These medications were sent to [facility] [address] [address] Phone: [phone] (more content not included)... [facility] 03-05-2024 History of Present illness Narrative [...] chest pain and shortness of breath. His paedodontist is Dr. Campo in [place]. Review of Systems Constitutional: Negative for fever [...] COVID-19 11/2021 Diabetes mellitus type 2, controlled ([facility]) Dizziness HL (hearing loss) hearing aid left ear Hyperlipidemia Hypertension Injury of back Low back pain Myocardial infarction ([facility]) 2004 Pancreatitis 2017 Peripheral arterial occlusive disease ([facility]) Visual impairment glasses Wears dentures Past Surgical History: Procedure Laterality Date ARTHROSCOPY SHOULDER WITH SUBACROMIAL DECOMPRESSION AND DEBRIDEMENT TYPE 1 SLAP LESION Left 01/11/2017 Performed by Jr Eliezer Gifford DO at [facility] CARDIAC CATHETERIZATION 5 stents, most recent placed 12/2004 CATARACT EXTRACTION CHOLECYSTECTOMY COLONOSCOPY N/A 10/26/2018 Performed by Sabino Mauricio DO at [facility] EGD N/A 05/03/2019 Performed by Sabino Mauricio DO at [facility] EGD, DILATATION N/A 05/03/2019 Performed by Sabino Mauricio DO at [facility] INJECTION BLOCK NERVE MEDIAL BRANCH: bilat T 10/02 11/03 Bilateral 03/05/2022 Performed by Gabriel Hanson MD at [facility] INJECTION BLOCK NERVE MEDIAL BRANCH: bilat T 10/02 11/03 Bilateral 01/29/2022 Performed by Gabriel Hanson MD at [facility] INJECTION BLOCK NERVE MEDIAL BRANCH: right L 3/4 4/5 Right 09/05/2020 Performed by Gabriel Hanson MD at [facility] INJECTION BLOCK NERVE MEDIAL BRANCH: right L34 45 Right 10/10/2020 Performed by Gabriel Hanson MD at [facility] INJECTION LARGE JOINT BURSA: left hip Left 04/13/2019 Performed by Gabriel Hanson MD at [facility] INJECTION MEDIAL BRANCH NERVE BLOCK: left [id number] Left 10/26/2019 Performed by Gabriel Hanson MD at [facility] INJECTION SI JOINT-Left Left 10/20/2018 Performed by Gabriel Hanson MD at [facility] INJECTION STEROID EPI 1 WITH SEDATION: left [id number] Left 08/03/2019 Performed by Gabriel Hanson MD at [facility] INJECTION STEROID EPI 1 WITH SEDATION: left [id number] Left 09/03/2019 Performed by Gabriel Hanson MD at [facility] ADELE PROCEDURE SHOULDER Left 01/11/2017 Performed by Jr Eliezer Gifford DO at [facility] RADIOFREQUENCY ABLATION SPINAL: Left T 7/8 8/9 Left 04/23/2022 Performed by Gabriel Hanson MD at [facility] RADIOFREQUENCY ABLATION SPINAL: Right T 7/8 8/9 Right 04/09/2022 Performed by Gabriel Hanson MD at [facility] No Known Allergies Current Outpatient Medications: albuterol [...] MOUTH DAILY, Disp: , Rfl: peg 3350-sod sulf,vrie-pvd-jzx 178.7-7.3-0.5 gram recon soln, Take 1 kit [...] Strain: Low Risk (11/10/2023) Received from [facility] Overall Financial Resource Strain (CARDIA) Difficulty of Paying Living Expenses: Not hard at all Food Insecurity: No Food Insecurity (11/10/2023) Received from [facility] Hunger Vital Sign Within the past 12 months, you worried that your food would run out before you got the money to buy more.: Never true Ran Out of Food in the Last Year: Not on file Transportation Needs: No Transportation Needs (11/10/2023) Received from [facility] Transportation In the past 12 months, has lack of transportation kept you from medical appointments or from getting medications?: No Lack of Transportation (Non-Medical): Not on file Physical Activity: Inactive (06/07/2023) Received from [facility] Exercise Vital Sign Days of Exercise per Week: 0 days Minutes of Exercise per Session: 0 min Stress: Stress Concern Present (06/07/2023) Received from [facility] [place] [facility] [employer] - Occupational Stress Questionnaire Feeling of Stress : To some extent Social Connections: Moderately Integrated (06/07/2023) Received from [facility] Social Connection and Isolation Panel [NHANES] Frequency of Communication with Friends and Family: More than three times a week Frequency of Social Gatherings with Friends and Family: Once a week Attends Caodaism Services: More than 4 times per year Active Member of Clubs or Organizations: No Attends Club or Organization Meetings: Never Marital Status: Interpersonal Safety: Not At Risk (11/10/2023) Received from [facility] Humiliation, Afraid, Rape, and Kick questionnaire Fear of Current or Ex-Partner: No Emotionally Abused: No Physically Abused: No Sexually Abused: No Housing Instability: Low Risk (11/10/2023) Received from [facility] Housing Stability Vital Sign Unable to Pay for Housing in the Last Year: Not on file Number of Places Lived in the Last Year: Not on file In the last 12 months, was there a time when you did not have a steady place to sleep or slept in a retirement (including now)?: No Family History Problem Relation [...] patient/family/caregiver Referring and communicating with other health aged or disabled care worker Encounter for colonoscopy due to history of colonic polyp [Z12.11, Z86.0100] [facility] [employer]/Ben[employer] This note was created with the assistance of a speech recognition program. While intending to generate a timely document that accurately reflects the content of the visit, no guarantee can be provided that every grammatical or spelling mistake has been or will be identified or corrected. Thank you for your understanding. SATURNINO Bhandari 03/05/24 1215 documented in this encounter [facility] 02-15-2024 History of Present illness Narrative Associated Problem(s): Lumbosacral spondylosis without myelopathy Will call his pain mgmt to schedule Associated Problem(s): Tubulovillous adenoma of colon Refer back to [facility] Pt is in cardiac therapy three times [...] no compliance problems. Hypertensive end-organ damage includes CAD/CT, heart failure and PVD. Diabetes He has [...] being taken. He does not see a aircraft sheet metal mechanic.Eye exam is not current. SUBJECTIVE: MEDICATIONS: Current [...] 06/07/2023 Bilateral carotid artery disease, unspecified type ([facility]) 06/07/2023 BPH (benign prostatic hyperplasia) 06/07/2023 Cervical spinal stenosis 06/07/2023 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 ([facility]) 03/02/2023 COVID-19 virus detected Depression ([facility]) Erectile dysfunction 06/07/2023 Fatigue Granuloma annulare Hearing loss, bilateral Hyperlipidemia ([facility]) 06/07/2023 WESTLEY (iron deficiency anemia) 04/11/2023 Lumbar spondylosis Lumbosacral pain 04/11/2023 CORNELIA (obstructive sleep apnea) 06/07/2023 PAD (peripheral artery disease) ([facility]) 03/25/2023 Primary hypertension ([facility]) 04/11/2023 Tobacco user 06/07/2023 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 Type 2 diabetes mellitus without complication, with long-term current use of insulin ([facility]) 03/22/2023 Past Surgical History: Procedure Laterality Date [...] complication, with long-term current use of insulin ([facility]) - Primary Check blood sugars daily, notify [...] flomax Erectile dysfunction 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 (CMS/HCC) Cont [...] Associated Problem(s): Riley esophagus Needs repeat EGD Grillis Associated Problem(s): Type 2 diabetes mellitus without complication, with long-term current use of insulin ([facility]) Check blood sugars daily, notify if <70 [...] flomax Associated Problem(s): 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 ([facility]) Cont with asa, statin, b cesilia And cardiology Associated Problem(s): PAD (peripheral artery disease) ([facility]) Continue asa and statin Associated Problem(s): Primary hypertension ([facility]) Please check blood pressure daily and record DASH diet Limit caffeine Take medication as directed Contact office if chest pain, pressure, dizziness, shortness of breath, swelling legs Recommend slow position changes Cont current meds documented in this encounter [facility] 02-15-2024 Instructions Marisol Boyce NP - [...] diabetic eye exam documented in this encounter [facility] 02-02-2024 Telephone encounter Note Have we heard any reponse on a note I sent to you a few weeks ago about his metfromin?? [place] [facility] 02-02-2024 Miscellaneous Notes Have we heard any reponse on a note I sent to you a few weeks ago about his metfromin?? [place] documented in this encounter [facility] 01-04-2024 History of Present illness Narrative Associated Problem(s): Type 2 diabetes mellitus without complication, with long-term current use of insulin ([facility]) Consider GLP 1 possible hx of Pancreatitis [...] no compliance problems. Hypertensive end-organ damage includes CAD/CT and PVD. SUBJECTIVE: MEDICATIONS: Current Outpatient Medications Medication Instructions amiodarone (PACERONE) 200 mg, Oral, Daily with breakfast amLODIPine (NORVASC) 5 mg, Oral, Daily RT apixaban (ELIQUIS) 5 mg, Oral, 2 times daily Aspirin Low Dose 81 mg, Oral, Daily atorvastatin (LIPITOR) 80 mg, Oral, Daily carvedilol (COREG) 3.125 mg, Oral, 2 times daily with meals Continuous Glucose Quality Improvement Analyst (Dexcom G7 Quality Improvement Analyst) device 1 each, Does not apply, Daily [...] 06/07/2023 Bilateral carotid artery disease, unspecified type ([facility]) 06/07/2023 BPH (benign prostatic hyperplasia) 06/07/2023 Cervical spinal stenosis 06/07/2023 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 ([facility]) 03/02/2023 COVID-19 virus detected Depression ([facility]) Erectile dysfunction 06/07/2023 Fatigue Granuloma annulare Hearing loss, bilateral Hyperlipidemia ([facility]) 06/07/2023 WESTLEY (iron deficiency anemia) 04/11/2023 Lumbar spondylosis Lumbosacral pain 04/11/2023 CORNELIA (obstructive sleep apnea) 06/07/2023 PAD (peripheral artery disease) ([facility]) 03/25/2023 Primary hypertension ([facility]) 04/11/2023 Tobacco user 06/07/2023 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 Type 2 diabetes mellitus without complication, with long-term current use of insulin ([facility]) 03/22/2023 Past Surgical History: Procedure Laterality Date [...] spine 3 views documented in this encounter [facility] 11-22-2023 History of Present illness Narrative [...] 2 times daily with meals Continuous Glucose Quality Improvement Analyst (Dexcom G7 Quality Improvement Analyst) device 1 each, Does not apply, Daily [...] 06/07/2023 Bilateral carotid artery disease, unspecified type ([facility]) 06/07/2023 BPH (benign prostatic hyperplasia) 06/07/2023 Cervical spinal stenosis 06/07/2023 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 ([facility]) 03/02/2023 COVID-19 virus detected Depression ([facility]) Erectile dysfunction 06/07/2023 Fatigue Granuloma annulare Hearing loss, bilateral Hyperlipidemia ([facility]) 06/07/2023 WESTLEY (iron deficiency anemia) 04/11/2023 Lumbar spondylosis Lumbosacral pain 04/11/2023 CORNELIA (obstructive sleep apnea) 06/07/2023 PAD (peripheral artery disease) ([facility]) 03/25/2023 Primary hypertension ([facility]) 04/11/2023 Tobacco user 06/07/2023 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 Type 2 diabetes mellitus without complication, with long-term current use of insulin ([facility]) 03/22/2023 Past Surgical History: Procedure Laterality Date [...] Addressed This Visit 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 (CMS/HCC) - Primary Primary hypertension (CMS/HCC) No med dose changes at this time Nonrheumatic mitral valve regurgitation Cont with cardiology for recommendations A-fib (CMS/HCC) 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 Document Revised: 06/10/2021 Document Reviewed: 06/10/2021 Elsevier Patient Education 2022 [employer]. Follow Up Care 06/18/2022 10:46:56 With:Chris QUINTANA, GEORGE Mitchell, URO Address: When:Within 1 Year(s) [facility] Eliel 06-16-2022 Hospital Discharge instructions Patient [...] urethra. Follow these instructions at home: Take dnxy-cml-uexzgku and prescription medicines only as told by [...] 03/14/2006 Document Revised: 02/06/2019 Document Reviewed: 04/18/2017 [employer] Patient Education 2020 [employer]. Follow Up Care 06/18/2021 11:18:31 With:Chris QUINTANA, GEORGE Mitchell, URO Address: When: Unknown [facility] 06-18-2021 Hospital Discharge instructions Patient Education [...] 03/14/2006 Document Revised: 12/01/2018 Document Reviewed: 02/11/2017 [employer] Patient Education 2020 [employer]. 06/18/2021 11:19:47 Benign Prostatic Hyperplasia Benign Prostatic [...] urethra. Follow these instructions at home: Take abuo-rxw-xzpjmqc and prescription medicines only as told by [...] 03/14/2006 Document Revised: 02/06/2019 Document Reviewed: 04/18/2017 [employer] Patient Education 2020 [employer]. Follow Up Care 06/12/2020 11:26:53 With:ZULMA QUINTANA, Carlitos Villar, URL Address: [address] [place] [phone] When:Within 1 Year(s) Comments:w/PSA [facility] Evaluation + Plan note Future Appointments Appointment Date:06/18/2022 10:00:00 AM Scheduled Provider:Deja Perez MD Location:[facility] Appointment Type:URO Office Visit Diagnostic Tests PendingPSA Total 06/18/21 [facility] Evaluation + Plan note Future Appointments Appointment Date:06/23/2023 10:00:00 AM Scheduled Provider:Deja Perez MD Location:[facility] Appointment Type:URO Office Visit Diagnostic Tests PendingPSA Free & Total 06/18/22 [facility] Evaluation + Plan note Future Appointments Appointment Date:07/04/2024 10:45:00 AM Scheduled Provider:Deja Perez MD Location:[facility] Appointment Type:URO Office Visit Diagnostic Tests PendingPSA Screen, Total 07/11/23 [facility] Evaluation + Plan note Future Appointments Appointment Date:07/18/2024 08:15:00 AM Scheduled Provider:Deja Perez MD Location:[facility] Appointment Type:URO Office Visit [facility] Evaluation note Diagnosis Type 2 diabetes mellitus without complication, with long-term current use of insulin (CMS/HCC)- Primary Chronic thoracic back pain, unspecified back pain laterality Primary hypertension (CMS/HCC) Unspecified essential hypertension [facility] Diagnosis Type 2 diabetes mellitus without complication, with long-term current use of insulin (CMS/HCC)- Primary Primary hypertension (CMS/HCC) Unspecified essential hypertension 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 (CMS/HCC) PAD (peripheral artery disease) (CMS/HCC) Unspecified peripheral vascular disease Iron deficiency anemia, unspecified iron deficiency anemia type Lumbosacral pain Encounter for subsequent annual wellness visit (AWV) in Medicare patient- 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 (Z79.4) Peripheral vascular disease, unspecified (I73.9) Peripheral vascular disease, unspecified Mixed hyperlipidemia (CMS/HCC) Mixed hyperlipidemia Iron deficiency anemia, unspecified iron deficiency anemia type Type 2 diabetes mellitus without complication, with long-term current use of insulin (CMS/HCC) COPD, moderate (CMS/HCC) Primary hypertension (CMS/HCC) Unspecified essential hypertension 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 (CMS/HCC) PAD (peripheral artery disease) (CMS/HCC) Unspecified peripheral vascular disease Nonrheumatic mitral valve regurgitation Riley's esophagus with dysplasia Benign prostatic hyperplasia with lower urinary tract symptoms, symptom details unspecified Primary hypertension (CMS/HCC)- Primary Unspecified essential hypertension Type 2 diabetes mellitus without complication, with long-term current use of insulin (CMS/HCC) 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 (CMS/HCC)- Primary Type 2 diabetes mellitus with other specified complication (CMS/HCC) Male erectile dysfunction, unspecified Type 2 diabetes mellitus 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 (CMS/HCC) Acute cough Primary hypertension (CMS/HCC) Unspecified essential hypertension Paroxysmal atrial fibrillation (CMS/HCC) Atrial fibrillation Type 2 diabetes mellitus without complication, with long-term current use of insulin (CMS/HCC) 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 (CMS/HCC)- Primary Other [...] peripheral vascular disease 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 (CMS/HCC) Riley's esophagus with dysplasia Erectile dysfunction due to diseases classified elsewhere Benign prostatic hyperplasia with lower urinary tract symptoms, symptom details unspecified Colon cancer screening Special screening for malignant neoplasms, colon Tubulovillous adenoma of colon Lumbosacral spondylosis without myelopathy documented in this encounter [facility]* Diagnosis 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 (CMS/HCC)- Primary Other thrombophilia (CMS/HCC) Paroxysmal atrial fibrillation (CMS/HCC) Atrial fibrillation Nonrheumatic mitral valve regurgitation Primary hypertension (CMS/HCC) Unspecified essential hypertension 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) [facility] Diagnosis Benign prostatic hyperplasia with lower urinary tract symptoms, symptom details unspecified- Primary documented in this encounter [facility]* Diagnosis Type 2 diabetes mellitus without complication, with long-term current use of insulin (CMS/HCC)- Primary Primary hypertension (CMS/HCC) Unspecified essential hypertension 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 (CMS/HCC) PAD (peripheral artery disease) (CMS/HCC) Unspecified peripheral vascular disease Iron deficiency anemia, unspecified iron deficiency anemia type Lumbosacral pain Encounter for subsequent annual wellness visit (AWV) in Medicare patient- 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 (Z79.4) Peripheral vascular disease, unspecified (I73.9) Peripheral vascular disease, unspecified Mixed hyperlipidemia (CMS/HCC) Mixed hyperlipidemia Iron deficiency anemia, unspecified iron deficiency anemia type Type 2 diabetes mellitus without complication, with long-term current use of insulin (CMS/HCC) COPD, moderate (CMS/HCC) Primary hypertension (CMS/HCC) Unspecified essential hypertension 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 (CMS/HCC) PAD (peripheral artery disease) (CMS/HCC) Unspecified peripheral vascular disease Nonrheumatic mitral valve regurgitation Riley's esophagus with dysplasia Benign prostatic hyperplasia with lower urinary tract symptoms, symptom details unspecified Primary hypertension (CMS/HCC)- Primary Unspecified essential hypertension Type 2 diabetes mellitus without complication, with long-term current use of insulin (CMS/HCC) 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 (CMS/HCC)- Primary Type 2 diabetes mellitus with other specified complication (CMS/HCC) Male erectile dysfunction, unspecified Type 2 diabetes mellitus 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 (CMS/HCC) Acute cough Primary hypertension (CMS/HCC) Unspecified essential hypertension Paroxysmal atrial fibrillation (CMS/HCC) Atrial fibrillation Type 2 diabetes mellitus without complication, with long-term current use of insulin (CMS/HCC) 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 (CMS/HCC)- Primary Other [...] peripheral vascular disease 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 (CMS/HCC) Riley's esophagus with dysplasia Erectile dysfunction due to diseases classified elsewhere Benign prostatic hyperplasia with lower urinary tract symptoms, symptom details unspecified Colon cancer screening Special screening for malignant neoplasms, colon Tubulovillous adenoma of colon Lumbosacral spondylosis without myelopathy Type 2 diabetes mellitus without complication, with long-term current use of insulin (CMS/HCC)- Primary documented in this encounter [facility]* Diagnosis Encounter for colonoscopy due to history of colonic polyp- Primary 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 [facility] Diagnosis Type 2 diabetes mellitus without complication, with long-term current use of insulin (CMS/HCC)- Primary Primary hypertension (CMS/HCC) Unspecified essential hypertension 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 (CMS/HCC) PAD (peripheral artery disease) (CMS/HCC) Unspecified peripheral vascular disease Iron deficiency anemia, unspecified iron deficiency anemia type Lumbosacral pain Encounter for subsequent annual wellness visit (AWV) in Medicare patient- Primary shelter (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 of insulin (Z79.4) Peripheral vascular disease, unspecified (I73.9) Peripheral vascular disease, unspecified Mixed hyperlipidemia (CMS/HCC) Mixed hyperlipidemia Iron deficiency anemia, unspecified iron deficiency anemia type Type 2 diabetes mellitus without complication, with long-term current use of insulin (CMS/HCC) COPD, moderate (CMS/HCC) Primary hypertension (CMS/HCC) Unspecified essential hypertension 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 (CMS/HCC) PAD (peripheral artery disease) (CMS/HCC) Unspecified peripheral vascular disease Nonrheumatic mitral valve regurgitation Riley's esophagus with dysplasia Benign prostatic hyperplasia with lower urinary tract symptoms, symptom details unspecified Primary hypertension (CMS/HCC)- Primary Unspecified essential hypertension Type 2 diabetes mellitus without complication, with long-term current use of insulin (CMS/HCC) 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 (CMS/HCC)- Primary Type 2 diabetes mellitus with other specified complication (CMS/HCC) Male erectile dysfunction, unspecified Type 2 diabetes mellitus 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 (CMS/HCC) Acute cough Primary hypertension (CMS/HCC) Unspecified essential hypertension Paroxysmal atrial fibrillation (CMS/HCC) Atrial fibrillation Type 2 diabetes mellitus without complication, with long-term current use of insulin (CMS/HCC) 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 (CMS/HCC)- Primary Other [...] peripheral vascular disease 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 (CMS/HCC) Riley's esophagus with dysplasia Erectile dysfunction due to diseases classified elsewhere Benign prostatic hyperplasia with lower urinary tract symptoms, symptom details unspecified Colon cancer screening Special screening for malignant neoplasms, colon Tubulovillous adenoma of colon Lumbosacral spondylosis without myelopathy Type 2 diabetes mellitus without complication, with long-term current use of insulin (CMS/HCC)- Primary documented in this encounter [facility] HealthcareEvaluation noteNo assessment information availableWilson Street Hospital Work Phone: Evaluation note* Diagnosis Type 2 diabetes mellitus without complication, with long-term current use of insulin (CMS/HCC)- Primary Primary hypertension (CMS/HCC) Unspecified essential hypertension 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 (CMS/HCC) PAD (peripheral artery disease) (CMS/HCC) Unspecified peripheral vascular disease Iron deficiency anemia, unspecified iron deficiency anemia type Lumbosacral pain Encounter for subsequent annual wellness visit (AWV) in Medicare patient- 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 (Z79.4) Peripheral vascular disease, unspecified (I73.9) Peripheral vascular disease, unspecified Mixed hyperlipidemia (CMS/HCC) Mixed hyperlipidemia Iron deficiency anemia, unspecified iron deficiency anemia type Type 2 diabetes mellitus without complication, with long-term current use of insulin (CMS/HCC) COPD, moderate (CMS/HCC) Primary hypertension (CMS/HCC) Unspecified essential hypertension 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 (CMS/HCC) PAD (peripheral artery disease) (CMS/HCC) Unspecified peripheral vascular disease Nonrheumatic mitral valve regurgitation Riley's esophagus with dysplasia Benign prostatic hyperplasia with lower urinary tract symptoms, symptom details unspecified Primary hypertension (CMS/HCC)- Primary Unspecified essential hypertension Type 2 diabetes mellitus without complication, with long-term current use of insulin (CMS/HCC) 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 (CMS/HCC)- Primary Type 2 diabetes mellitus with other specified complication (CMS/HCC) Male erectile dysfunction, unspecified Type 2 diabetes mellitus 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 (CMS/HCC) Acute cough Primary hypertension (CMS/HCC) Unspecified essential hypertension Paroxysmal atrial fibrillation (CMS/HCC) Atrial fibrillation Type 2 diabetes mellitus without complication, with long-term current use of insulin (CMS/HCC) 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 (CMS/HCC)- Primary Other [...] peripheral vascular disease 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 (CMS/HCC) Riley's esophagus with dysplasia Erectile dysfunction due to diseases classified elsewhere Benign prostatic hyperplasia with lower urinary tract symptoms, symptom details unspecified Colon cancer screening Special screening for malignant neoplasms, colon Tubulovillous adenoma of colon Lumbosacral spondylosis without myelopathy Type 2 diabetes mellitus without complication, with long-term current use of insulin (CMS/HCC) [facility] Diagnosis Encounter for colonoscopy due to history of colonic polyp- Primary 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 [facility] Diagnosis Type 2 diabetes mellitus without complication, with long-term current use of insulin (CMS/HCC)- Primary Primary hypertension (CMS/HCC) Unspecified essential hypertension 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 (CMS/HCC) PAD (peripheral artery disease) (CMS/HCC) Unspecified peripheral vascular disease Iron deficiency anemia, unspecified iron deficiency anemia type Lumbosacral pain Encounter for subsequent annual wellness visit (AWV) in Medicare patient- 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 (Z79.4) Peripheral vascular disease, unspecified (I73.9) Peripheral vascular disease, unspecified Mixed hyperlipidemia (CMS/HCC) Mixed hyperlipidemia Iron deficiency anemia, unspecified iron deficiency anemia type Type 2 diabetes mellitus without complication, with long-term current use of insulin (CMS/HCC) COPD, moderate (CMS/HCC) Primary hypertension (CMS/HCC) Unspecified essential hypertension 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 (CMS/HCC) PAD (peripheral artery disease) (CMS/HCC) Unspecified peripheral vascular disease Nonrheumatic mitral valve regurgitation Riley's esophagus with dysplasia Benign prostatic hyperplasia with lower urinary tract symptoms, symptom details unspecified Primary hypertension (CMS/HCC)- Primary Unspecified essential hypertension Type 2 diabetes mellitus without complication, with long-term current use of insulin (CMS/HCC) 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 (CMS/HCC)- Primary Type 2 diabetes mellitus with other specified complication (CMS/HCC) Male erectile dysfunction, unspecified Type 2 diabetes mellitus 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 (CMS/HCC) Acute cough Primary hypertension (CMS/HCC) Unspecified essential hypertension Paroxysmal atrial fibrillation (CMS/HCC) Atrial fibrillation Type 2 diabetes mellitus without complication, with long-term current use of insulin (CMS/HCC) 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 (CMS/HCC)- Primary Other [...] peripheral vascular disease 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 (CMS/HCC) Riley's [...] (CMS/HCC) Atrial fibrillation 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 (CMS/HCC) Primary hypertension (CMS/HCC) Unspecified essential hypertension PAD (peripheral artery disease) (CMS/HCC) Unspecified peripheral vascular disease Iron deficiency anemia, unspecified iron deficiency anemia type Mixed hyperlipidemia (CMS/HCC) Mixed hyperlipidemia Primary insomnia Persistent disorder of initiating or maintaining sleep documented in this encounter [facility] HealthcareEvaluation note* Diagnosis Type 2 diabetes mellitus without complication, with long-term current use of insulin (CMS/HCC)- Primary Primary hypertension (CMS/HCC) Unspecified essential hypertension 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 (CMS/HCC) PAD (peripheral artery disease) (CMS/HCC) Unspecified peripheral vascular disease Iron deficiency anemia, unspecified iron deficiency anemia type Lumbosacral pain Encounter for subsequent annual wellness visit (AWV) in Medicare patient- Primary shelter (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 of insulin (Z79.4) Peripheral vascular disease, unspecified (I73.9) Peripheral vascular disease, unspecified Mixed hyperlipidemia (CMS/HCC) Mixed hyperlipidemia Iron deficiency anemia, unspecified iron deficiency anemia type Type 2 diabetes mellitus without complication, with long-term current use of insulin (CMS/HCC) COPD, moderate (CMS/HCC) Primary hypertension (CMS/HCC) Unspecified essential hypertension 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 (CMS/HCC) PAD (peripheral artery disease) (CMS/HCC) Unspecified peripheral vascular disease Nonrheumatic mitral valve regurgitation Riley's esophagus with dysplasia Benign prostatic hyperplasia with lower urinary tract symptoms, symptom details unspecified Primary hypertension (CMS/HCC)- Primary Unspecified essential hypertension Type 2 diabetes mellitus without complication, with long-term current use of insulin (CMS/HCC) 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 (CMS/HCC)- Primary Type 2 diabetes mellitus with other specified complication (CMS/HCC) Male erectile dysfunction, unspecified Type 2 diabetes mellitus 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 (CMS/HCC) Acute cough Primary hypertension (CMS/HCC) Unspecified essential hypertension Paroxysmal atrial fibrillation (CMS/HCC) Atrial fibrillation Type 2 diabetes mellitus without complication, with long-term current use of insulin (CMS/HCC) 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 (CMS/HCC)- Primary Other [...] peripheral vascular disease 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 (CMS/HCC) Riley's [...] (CMS/HCC) Atrial fibrillation 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 (CMS/HCC) Primary hypertension (CMS/HCC) Unspecified essential hypertension PAD (peripheral artery disease) (CMS/HCC) Unspecified peripheral vascular disease Iron deficiency anemia, unspecified iron deficiency anemia type Mixed hyperlipidemia (CMS/HCC) Mixed hyperlipidemia Primary insomnia 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- Primary documented in this encounter [facility] HealthcareEvaluation note* Diagnosis Type 2 diabetes mellitus without complication, with long-term current use of insulin- Primary Primary hypertension (CMS/HCC) Unspecified essential hypertension 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 (CMS/HCC) PAD (peripheral artery disease) (CMS/HCC) Unspecified peripheral vascular disease Iron deficiency anemia, unspecified iron deficiency anemia type Lumbosacral pain Encounter for subsequent annual wellness visit (AWV) in Medicare patient- Primary shelter (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 of insulin (Z79.4) Peripheral vascular disease, unspecified (I73.9) Peripheral vascular disease, unspecified Mixed hyperlipidemia (CMS/HCC) Mixed hyperlipidemia Iron deficiency anemia, unspecified iron deficiency anemia type Type 2 diabetes mellitus without complication, with long-term current use of insulin COPD, moderate (CMS/HCC) Primary hypertension ([facility]/HCC) Unspecified essential hypertension 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 (CMS/HCC) PAD (peripheral artery disease) ([facility]) Unspecified peripheral vascular disease Nonrheumatic mitral valve regurgitation Riley's esophagus with dysplasia Benign prostatic hyperplasia with lower urinary tract symptoms, symptom details unspecified Primary hypertension ([facility]/HCC)- Primary Unspecified essential hypertension Type 2 diabetes mellitus without complication, with long-term current use of insulin 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 (CMS/HCC)- Primary Type 2 diabetes mellitus with other specified complication Male erectile dysfunction, unspecified Type 2 diabetes mellitus 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 (CMS/HCC) Acute cough Primary hypertension (CMS/HCC) Unspecified essential hypertension Paroxysmal atrial fibrillation (CMS/HCC) Atrial fibrillation Type 2 diabetes mellitus without complication, with long-term current use of insulin 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 (CMS/HCC)- Primary Other [...] peripheral vascular disease 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 (CMS/HCC) Riley's [...] (CMS/HCC) Atrial fibrillation 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 (CMS/HCC) Primary hypertension [...] Unspecified essential hypertension 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 (CMS/HCC) PAD (peripheral artery disease) (CMS/HCC) Unspecified peripheral vascular disease Iron deficiency anemia, unspecified iron deficiency anemia type Lumbosacral pain Encounter for subsequent annual wellness visit (AWV) in Medicare patient- Primary shelter (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 of insulin (Z79.4) Peripheral vascular disease, unspecified (I73.9) Peripheral vascular disease, unspecified Mixed hyperlipidemia (CMS/HCC) Mixed hyperlipidemia Iron deficiency anemia, unspecified iron deficiency anemia type Type 2 diabetes mellitus without complication, with long-term current use of insulin COPD, moderate (CMS/HCC) Primary hypertension (CMS/HCC) Unspecified essential hypertension 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 (CMS/HCC) PAD (peripheral artery disease) (CMS/HCC) Unspecified peripheral vascular disease Nonrheumatic mitral valve regurgitation Riley's esophagus with dysplasia Benign prostatic hyperplasia with lower urinary tract symptoms, symptom details unspecified Primary hypertension (CMS/HCC)- Primary Unspecified essential hypertension Type 2 diabetes mellitus without complication, with long-term current use of insulin 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 (CMS/HCC)- Primary Type 2 diabetes mellitus with other specified complication Male erectile dysfunction, unspecified Type 2 diabetes mellitus 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 (CMS/HCC) Acute cough Primary hypertension (CMS/HCC) Unspecified essential hypertension Paroxysmal atrial fibrillation (CMS/HCC) Atrial fibrillation Type 2 diabetes mellitus without complication, with long-term current use of insulin 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 (CMS/HCC)- Primary Other [...] peripheral vascular disease 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 (CMS/HCC) Riley's [...] (CMS/HCC) Atrial fibrillation 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 (CMS/HCC) Primary hypertension (CMS/HCC) Unspecified essential hypertension PAD (peripheral artery disease) (CMS/HCC) Unspecified peripheral vascular disease Iron deficiency anemia, unspecified iron deficiency anemia type Mixed hyperlipidemia (CMS/HCC) Mixed hyperlipidemia Primary insomnia Persistent disorder of initiating or maintaining sleep Type 2 diabetes mellitus without complication, with long-term current use of insulin documented in this encounter [facility] HealthcareEvaluation note* Diagnosis Type 2 diabetes mellitus without complication, with long-term current use of insulin- Primary Primary hypertension (CMS/HCC) Unspecified essential hypertension 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 (CMS/HCC) PAD (peripheral artery disease) (CMS/HCC) Unspecified peripheral vascular disease Iron deficiency anemia, unspecified iron deficiency anemia type Lumbosacral pain Encounter for subsequent annual wellness visit (AWV) in Medicare patient- Primary shelter (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 of insulin (Z79.4) Peripheral vascular disease, unspecified (I73.9) Peripheral vascular disease, unspecified Mixed hyperlipidemia (CMS/HCC) Mixed hyperlipidemia Iron deficiency anemia, unspecified iron deficiency anemia type Type 2 diabetes mellitus without complication, with long-term current use of insulin COPD, moderate (CMS/HCC) Primary hypertension (CMS/HCC) Unspecified essential hypertension 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 (CMS/HCC) PAD (peripheral artery disease) (CMS/HCC) Unspecified peripheral vascular disease Nonrheumatic mitral valve regurgitation Riley's esophagus with dysplasia Benign prostatic hyperplasia with lower urinary tract symptoms, symptom details unspecified Primary hypertension (CMS/HCC)- Primary Unspecified essential hypertension Type 2 diabetes mellitus without complication, with long-term current use of insulin 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 (CMS/HCC)- Primary Type 2 diabetes mellitus with other specified complication Male erectile dysfunction, unspecified Type 2 diabetes mellitus 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 (CMS/HCC) Acute cough Primary hypertension (CMS/HCC) Unspecified essential hypertension Paroxysmal atrial fibrillation (CMS/HCC) Atrial fibrillation Type 2 diabetes mellitus without complication, with long-term current use of insulin 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 (CMS/HCC)- Primary Other [...] peripheral vascular disease 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 (CMS/HCC) Riley's [...] (CMS/HCC) Atrial fibrillation 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 (CMS/HCC) Primary hypertension (CMS/HCC) Unspecified essential hypertension PAD (peripheral artery disease) (CMS/HCC) Unspecified peripheral vascular disease Iron deficiency anemia, unspecified iron deficiency anemia type Mixed hyperlipidemia (CMS/HCC) Mixed hyperlipidemia Primary insomnia Persistent disorder of initiating or maintaining sleep Encounter for subsequent annual wellness visit (AWV) in Medicare patient- Primary Centrilobular emphysema (CMS/HCC) Paroxysmal atrial fibrillation (CMS/HCC) Atrial fibrillation Bilateral carotid artery disease, unspecified type (CMS/HCC) Primary hypertension (CMS/HCC) Unspecified essential hypertension Type 2 diabetes mellitus without complication, with long-term current use of insulin Type 2 diabetes mellitus with other specified complication, with long-term current use of insulin Mixed hyperlipidemia (CMS/HCC) Mixed hyperlipidemia Dizziness and giddiness documented in this encounter [facility] HealthcareEvaluation note* Diagnosis Type 2 diabetes mellitus without complication, with long-term current use of insulin (HCC)- Primary Primary hypertension Unspecified essential hypertension 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 PAD (peripheral artery disease) Unspecified peripheral vascular disease Iron deficiency anemia, unspecified iron deficiency anemia type Lumbosacral pain Encounter for subsequent annual wellness visit (AWV) in Medicare patient- 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 (Z79.4) Peripheral vascular disease, unspecified (I73.9) Peripheral vascular disease, unspecified Mixed hyperlipidemia Mixed hyperlipidemia Iron deficiency anemia, unspecified iron deficiency anemia type Type 2 diabetes mellitus without complication, with long-term current use of insulin (HCC) COPD, moderate (HCC) Primary hypertension Unspecified essential hypertension 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 PAD (peripheral artery disease) Unspecified peripheral vascular disease Nonrheumatic mitral valve regurgitation Riley's esophagus with dysplasia Benign prostatic hyperplasia with lower urinary tract symptoms, symptom details unspecified Primary hypertension- Primary Unspecified essential hypertension Type 2 diabetes mellitus without complication, with long-term current use of insulin (HCC) 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- Primary Type 2 diabetes mellitus with other specified complication (HCC) Male erectile dysfunction, unspecified Type 2 diabetes mellitus 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 (HCC) Acute cough Primary hypertension Unspecified essential hypertension Paroxysmal atrial fibrillation (HCC) Atrial fibrillation Type 2 diabetes mellitus without complication, with long-term current use of insulin (HCC) 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- Primary 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) Paroxysmal atrial fibrillation (HCC) Atrial fibrillation Nonrheumatic [...] peripheral vascular disease 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 Riley's esophagus [...] (HCC) Atrial fibrillation 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 Primary hypertension Unspecified [...] of insulin (HCC) documented in this encounter [facility] HealthcareEvaluation note* Diagnosis Type 2 diabetes mellitus without complication, with long-term current use of insulin (HCC)- Primary Primary hypertension Unspecified essential hypertension 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 PAD (peripheral artery disease) Unspecified peripheral vascular disease Iron deficiency anemia, unspecified iron deficiency anemia type Lumbosacral pain Encounter for subsequent annual wellness visit (AWV) in Medicare patient- Primary shelter (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 of insulin (Z79.4) Peripheral vascular disease, unspecified (I73.9) Peripheral vascular disease, unspecified Mixed hyperlipidemia Mixed hyperlipidemia Iron deficiency anemia, unspecified iron deficiency anemia type Type 2 diabetes mellitus without complication, with long-term current use of insulin (HCC) COPD, moderate (HCC) Primary hypertension Unspecified essential hypertension 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 PAD (peripheral artery disease) Unspecified peripheral vascular disease Nonrheumatic mitral valve regurgitation Riley's esophagus with dysplasia Benign prostatic hyperplasia with lower urinary tract symptoms, symptom details unspecified Primary hypertension- Primary Unspecified essential hypertension Type 2 diabetes mellitus without complication, with long-term current use of insulin (HCC) 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- Primary Type 2 diabetes mellitus with other specified complication (HCC) Male erectile dysfunction, unspecified Type 2 diabetes mellitus 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 (HCC) Acute cough Primary hypertension Unspecified essential hypertension Paroxysmal atrial fibrillation (HCC) Atrial fibrillation Type 2 diabetes mellitus without complication, with long-term current use of insulin (HCC) 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- Primary Other thrombophilia [...] peripheral vascular disease 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 Riley's esophagus [...] (HCC) Atrial fibrillation 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 Primary hypertension Unspecified [...] (HCC) Atrial fibrillation documented in this encounter [facility] HealthcareEvaluation note* Diagnosis Type 2 diabetes mellitus without complication, with long-term current use of insulin (HCC)- Primary Primary hypertension Unspecified essential hypertension 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 PAD (peripheral artery disease) Unspecified peripheral vascular disease Iron deficiency anemia, unspecified iron deficiency anemia type Lumbosacral pain Encounter for subsequent annual wellness visit (AWV) in Medicare patient- 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 (Z79.4) Peripheral vascular disease, unspecified (I73.9) Peripheral vascular disease, unspecified Mixed hyperlipidemia Mixed hyperlipidemia Iron deficiency anemia, unspecified iron deficiency anemia type Type 2 diabetes mellitus without complication, with long-term current use of insulin (HCC) COPD, moderate (HCC) Primary hypertension Unspecified essential hypertension 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 PAD (peripheral artery disease) Unspecified peripheral vascular disease Nonrheumatic mitral valve regurgitation Riley's esophagus with dysplasia Benign prostatic hyperplasia with lower urinary tract symptoms, symptom details unspecified Primary hypertension- Primary Unspecified essential hypertension Type 2 diabetes mellitus without complication, with long-term current use of insulin (HCC) 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- Primary Type 2 diabetes mellitus with other specified complication (HCC) Male erectile dysfunction, unspecified Type 2 diabetes mellitus 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 (HCC) Acute cough Primary hypertension Unspecified essential hypertension Paroxysmal atrial fibrillation (HCC) Atrial fibrillation Type 2 diabetes mellitus without complication, with long-term current use of insulin (HCC) 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- Primary Other thrombophilia [...] peripheral vascular disease 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 Riley's esophagus [...] (HCC) Atrial fibrillation 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 Primary hypertension Unspecified [...] this section [facility] Discharge instructions No data available for this section [facility] InstructionsNot on filedocumented in this encounter [facility] filedocument[facility] in this [facility]ructionsNot on filedocumented in this encounter [facility]ructionsNot on filedocumented in this encounter [facility]InstructionsNot on filedocumented in this encounter [facility] SystemInstructionsNot on filedocumented in this encounter [facility] SystemProgress note No data available for this section [facility] Reason for referral (narrative)No reason for referral information availableSelect [facility] Work Phone: Reason for visit Narrative* Consultation (Routine) - Pending Review Specialty Diagnoses / Procedures Referred By Kendra healy Referred To Contact Cardiac Rehabilitation Diagnoses Stented coronary artery Procedures Ambulatory referral to Cardiac Rehabilitation (Non-[facility]) Natasha Campo MD [address] [facility] [address] [place] [address] Phone: tel: fax: [facility] [address] [place] [address] Phone: tel: fax:[phone] Referral ID Status Reason Start Date Expiration Date Visits Requested Visits Authorized [id number] Pending Review Specialty Services Required 12/06/2023 12/05/2024 36 36 [facility] N[facility]* Consultation (Routine) - Closed Specialty Diagnoses / Procedures Referred By Kendra healy Referred To Contact Cardiac Rehabilitation Diagnoses Stented coronary artery Procedures Ambulatory referral to Cardiac Rehabilitation (Non[facility]) [facility] Camp[facility] [address] [facility] [address] [place] [address] Phone: tel: fax: [facility] [address] [place] [address] Phone: tel:[phone] fax:[phone] Referral ID Status Reason Start Date Expiration Date V isits Requested Visits Authorized [id number] Closed Specialty Services Required 12/06/2023 12/05/2024 36 36 [facility] for visit Narrative* Consultation (Routine) - Authorized Specialty Diagnoses / Procedures Referred By Contac t Referred To Contact Cardiac Rehabilitation Diagnoses Stented coronary artery Procedures Ambulatory referral to Cardiac Rehabilitation (Non[facility]) Natasha Campo MD [address] [facility] [address] [place] [address] [facility] Billing [address] [place] [address] Referral ID Status Reason Start Date Expiration Date Visits Requested Visits Authorized [id number] Authorized Specialty Services Required 12/06/2023 12/05/2024 36 36 [facility] Consultation (Routine) - Authorized Specialty Diagnoses / Procedures Referred By Contac t Referred To Contact Cardiac Rehabilitation Diagnoses Stented coronary artery Procedures Ambulatory referral to Cardiac Rehabilitation (Non[facility]) Natasha Campo MD [address] [facility] [address] [place] [address] Phone: tel: fax: [facility] [address] [place] [address] Phone: tel:[phone] fax:[phone] Referral ID Status Reason Start Date Expiration Date Visits Requested Visits Authorized [id number] Authorized Specialty Services Required 12/06/2023 12/05/2024 36 36 [facility] Summary Purpose Family History No Family History [...] Advance Directives No November 24, 2023 10:10am Advance Directive Response Recorded Date/ Time Advance Directives No November 24, 2023 11:10am Chief Complaint and Reason for Visit Chief Complaint Admit Date hospital follow up December 05, 2024 10:52am Additional Source Comments (unrecognized sect ion and [...] section and content) DATE CREATED AUTHOR 03/08/2021 [facility] DATE CREATED AUTHOR AUTHOR'S ORGANIZ ATION 06/20/2022 [facility] DATE CREATED AUTHOR AUTHOR'S ORGANIZ ATION 04/10/2024 [facility] DATE CREATED AUTHOR AUTHOR'S ORGANIZ ATION 04/15/2024 [facility] DATE CREATED AUTHOR AUTHOR'S ORGANIZ ATION 07/14/2024 [facility] DATE CREATED AUTHOR AUTHOR'S ORGANIZ ATION 07/19/2024 [facility] DATE CREATED AUTHOR AUTHOR'S ORGANIZ ATION 07/22/2024 [facility] DATE CREATED AUTHOR AUTHOR'S ORGANIZ ATION 07/23/2024 [facility] DATE CREATED AUTHOR AUTHOR'S ORGANIZ ATION 09/28/2024 [facility] EPIC DATE CREATED AUTHOR AUTHOR'S ORGANIZ ATION 11/28/2024 [facility] DATE CREATED AUTHOR AUTHOR'S ORGANIZ ATION 12/07/2024 [facility] Patient Care team informatio n (unrecognized section and content) Building Tech Relationship Specialty Start Date End Date Prabhjot Villatoro MD [address] [place] [address] PCP - General Family Medicine 04/06/23 Marisol Boyce NP [address] [place] [address] Nurse Practitioner Family Medicine 03/28/22 Building Tech Relationship Specialty Start Date End Date Prabhjot Villatoro MD [address] [place] [address] PCP - General Family Medicine 04/06/23 Marisol Boyce NP [address] [place] [address] Nurse Practitioner Family Medicine 03/28/22 Building Tech Relationship Specialty Start Date End Date Prabhjot Villatoro MD [address] [place] [address] PCP - General Family Medicine 06/07/23 Marisol Boyce NP [address] [place] [address] Nurse Practitioner Family Medicine 03/28/22 Marisol Boyce NP [address] [place] [address] Nurse Practitioner Family Medicine 06/07/23 Building Tech Relationship Specialty Start Date End Date Prabhjot Villatoro MD [address] [place] [address] PCP - General Family Medicine 06/07/23 Marisol Boyce NP [address] [place] [address] Nurse Practitioner Family Medicine 03/28/22 Marisol Boyce NP [address] [place] [address] Nurse Practitioner Family Medicine 06/07/23 Building Tech Relationship Specialty Start Date End Date Prabhjot Villatoro MD [address] [place] [address] PCP - General Family Medicine 06/07/23 Marisol Boyce NP [address] [place] [address] Nurse Practitioner Family Medicine 03/28/22 Marisol Boyce NP [address] [place] [address] Nurse Practitioner Family Medicine 06/07/23 Building Tech Relationship Specialty Start Date End Date Prabhjot Villatoro MD [address] [place] [address] PCP - General Family Medicine 06/07/23 Marisol Boyce NP [address] [place] [address] Nurse Practitioner Family Medicine 03/28/22 Marisol Boyce NP [address] [place] [address] Nurse Practitioner Family Medicine 06/07/23 Building Tech Relationship Specialty Start Date End Date Prabhjot Villatoro MD [address] [place] [address] PCP - General Family Medicine 06/07/23 Marisol Boyce NP [address] [place] [address] Nurse Practitioner Family Medicine 03/28/22 Marisol Boyce NP [address] [place] [address] Nurse Practitioner Family Medicine 06/07/23 Building Tech Relationship Specialty Start Date End Date Prabhjot Villatoro MD [address] [place] [address] PCP - General Family Medicine 06/07/23 Marisol Boyce NP [address] [place] [address] Nurse Practitioner Family Medicine 03/28/22 Marisol Boyce NP [address] [place] [address] Nurse Practitioner Family Medicine 06/07/23 Building Tech Relationship Specialty Start Date End Date Prabhjot Villatoro MD [address] [place] [address] PCP - General Family Medicine 06/07/23 Marisol Boyce NP [address] [place] [address] Nurse Practitioner Family Medicine 03/28/22 Marisol Boyce NP [address] [place] [address] Nurse Practitioner Family Medicine 06/07/23 Building Tech Relationship Specialty Start Date End Date Prabhjot Villatoro MD [address] [place] [address] PCP - General Family Medicine 06/07/23 Marisol Boyce NP [address] [place] [address] Nurse Practitioner Family Medicine 03/28/22 Marisol Boyce NP [address] [place] [address] Nurse Practitioner Family Medicine 06/07/23 Building Tech Relationship Specialty Start Date End Date Prabhjot Villatoro MD [address] [place] [address] PCP - General Family Medicine 06/07/23 Marisol Boyce NP [address] [place] [address] Nurse Practitioner Family Medicine 03/28/22 Marisol Boyce NP [address] [place] [address] Nurse Practitioner Family Medicine 06/07/23 Building Tech Relationship Specialty Start Date End Date Prabhjot Villatoro MD [address] [place] [address] PCP - General Family Medicine 06/07/23 Marisol Boyce NP [address] [place] [address] Nurse Practitioner Family Medicine 03/28/22 Marisol Boyce NP [address] [place] [address] Nurse Practitioner Family Medicine 06/07/23 Building Tech Relationship Specialty Start Date End Date Marisol Boyce APRN-FURNACE OPERATOR PCP - General Nurse Practitioner 10/16/18 Building Tech Relationship Specialty Start Date End Date Marisol Boyce APRN-FURNACE OPERATOR PCP - General Nurse Practitioner 10/16/18 Building Tech Relationship Specialty Start Date End Date Prabhjot Villatoro MD [address] [place] [phone] PCP - General Family Medicine 06/07/23 Marisol Boyce NP [address] [place] [address] Nurse Practitioner Family Medicine 03/28/22 Marisol Boyce NP [address] [place] [address] Nurse Practitioner Family Medicine 06/07/23 Building Tech Relationship Specialty Start Date End Date Marisol Boyce APRN-FURNACE OPERATOR PCP - General Nurse Practitioner 10/16/18 Building Tech Relationship Specialty Start Date End Date Prabhjot Villatoro MD [address] [place] [phone] PCP - General Family Medicine 06/07/23 Marisol Boyce NP [address] [place] [address] Nurse Practitioner Family Medicine 03/28/22 Marisol Boyce NP [address] [place] [address] Nurse Practitioner Family Medicine 06/07/23 Team Status: Inactive Member Role Status Dates Sabino Mauricio DO Attending Provider Active Start: April 11, 2024 End: April 11, 2024 Building Tech Relationship Specialty Start Date End Date Marisol Boyce APRN-FURNACE OPERATOR PCP - General Nurse Practitioner 10/16/18 Building Tech Relationship Specialty Start Date End Date Marisol Boyce APRN-FURNACE OPERATOR PCP - General Nurse Practitioner 10/16/18 Building Tech Relationship Specialty Start Date End Date Marisol Boyce APRN-FURNACE OPERATOR PCP - General Nurse Practitioner 10/16/18 Building Tech Relationship Specialty Start Date End Date Marisol Boyce, [facility] PCP - General Nurse Practitioner 10/16/18 Building Tech Relationship Specialty Start Date End Date Marisol Boyce [facility] PCP - General Nurse Practitioner 10/16/18 Building Tech Relationship Specialty Start Date End Date Marisol Boyce [facility] PCP - General Nurse Practitioner 10/16/18 Building Tech Relationship Specialty Start Date End Date Marisol Boyce [facility] PCP - General Nurse Practitioner 10/16/18 Building Tech Relationship Specialty Start Date End Date Marisol Boyce [facility] PCP - General Nurse Practitioner 10/16/18 Building Tech Relationship Specialty Start Date End Date Marisol Boyce [facility] PCP - General Nurse Practitioner 10/16/18 Building Tech Relationship Specialty Start Date End Date Marisol Boyce [facility] PCP - General Nurse Practitioner 10/16/18 Building Tech Relationship Specialty Start Date End Date Prabhjot Villatoro MD [address] [place] [phone] PCP - General Family Medicine 06/07/23 Marisol Boyce NP [address] [place] [address] PCP - ACO Reach 05/04/24 Marisol Boyce NP [address] [place] [address] Nurse Practitioner Family Medicine 03/28/22 Marisol Boyce NP [address] [place] [address] Nurse Practitioner Family Medicine 06/07/23 Building Tech Relationship Specialty Start Date End Date Marisol Boyce APRN-FURNACE OPERATOR PCP - General Nurse Practitioner 10/16/18 Building Tech Relationship Specialty Start Date End Date Marisol Boyce APRN-CNP PCP - General Nurse Practitioner 10/16/18 Building Tech Relationship Specialty Start Date End Date Marisol Boyce APRN-CNP PCP - General Nurse Practitioner 10/16/18 Building Tech Relationship Specialty Start Date End Date Marisol Boyce APRN-CNP PCP - General Nurse Practitioner 10/16/18 Building Tech Relationship Specialty Start Date End Date Marisol Boyce APRN-CNP PCP - General Nurse Practitioner 10/16/18 Building Tech Relationship Specialty Start Date End Date Marisol Boyce APRN-CNP PCP - General Nurse Practitioner 10/16/18 Building Tech Relationship Specialty Start Date End Date Marisol Boyce APRN-FURNACE OPERATOR PCP - General Nurse Practitioner 10/16/18 Building Tech Relationship Specialty Start Date End Date Marisol Boyce APRN-FURNACE OPERATOR PCP - General Nurse Practitioner 10/16/18 Building Tech Relationship Specialty Start Date End Date Prabhjot Villatoro MD [address] [place] [phone] PCP - General Family Medicine 06/07/23 Marisol Boyce NP [address] [place] [phone] PCP - ACO Reach 05/04/24 Marisol Boyce NP [address] [place] [address] Nurse Practitioner Family Medicine 03/28/22 Marisol Boyce NP [address] [place] [address] Nurse Practitioner Family Medicine 06/07/23 Building Tech Relationship Specialty Start Date End Date Prabhjot Villatoro MD [address] [place] [phone] PCP - General Family Medicine 06/07/23 Marisol Boyce NP [address] [place] [address] PCP - ACO Reach 05/04/24 Marisol Boyce NP [address] [place] [address] Nurse Practitioner Family Medicine 03/28/22 Marisol Boyce NP [address] [place] [address] Nurse Practitioner Family Medicine 06/07/23 Building Tech Relationship Specialty Start Date End Date Prabhjot Villatoro MD [address] [place] [address] PCP - General Family Medicine 06/07/23 Marisol Boyce NP [address] [place] [address] PCP - ACO Reach 05/04/24 Marisol Boyce NP [address] [place] [address] Nurse Practitioner Family Medicine 03/28/22 Marisol Boyce NP [address] [place] [address] Nurse Practitioner Family Medicine 06/07/23 Building Tech Relationship Specialty Start Date End Date Prabhjot Villatoro MD [address] [place] [address] PCP - General Family Medicine 06/07/23 Marisol Boyce NP [address] [place] [address] PCP - ACO Reach 05/04/24 Marisol Boyce NP [address] [place] [address] Nurse Practitioner Family Medicine 03/28/22 Marisol Boyce NP [address] [place] [address] Nurse Practitioner Family Medicine 06/07/23 Building Tech Relationship Specialty Start Date End Date Prabhjot Villatoro MD [address] [place] [address] PCP - General Family Medicine 06/07/23 Marisol Boyce NP [address] [place] [address] PCP - ACO Reach 05/04/24 Marisol Boyce NP [address] [place] [address] Nurse Practitioner Family Medicine 03/28/22 Marisol Boyce NP [address] [place] [address] Nurse Practitioner Family Medicine 06/07/23 Building Tech Relationship Specialty Start Date End Date Prabhjot Villatoro MD [address] [place] [address] PCP - General Family Medicine 06/07/23 Marisol Boyce NP [address] [place] [phone] PCP - ACO Reach 05/04/24 Marisol Boyce NP [address] [place] [address] Nurse Practitioner Family Medicine 03/28/22 Marisol Boyce NP [address] [place] [address] Nurse Practitioner Family Medicine 06/07/23 Building Tech Relationship Specialty Start Date End Date Prabhjot Villatoro MD [address] [place] [phone] PCP - General Family Medicine 06/07/23 Marisol Boyce NP [address] [place] [phone] PCP - ACO Reach 05/04/24 Marisol Boyce NP [address] [place] [address] Nurse Practitioner Family Medicine 03/28/22 Marisol Boyce NP [address] [place] [address] Nurse Practitioner Family Medicine 06/07/23 Building Tech Relationship Specialty Start Date End Date Prabhjot Villatoro MD [address] [place] [phone] PCP - General Family Medicine 06/07/23 Marisol Boyce NP [address] [place] [address] PCP - ACO Reach 05/04/24 Marisol Boyce NP [address] [place] [address] Nurse Practitioner Family Medicine 03/28/22 Marisol Boyce NP [address] [place] [address] Nurse Practitioner Family Medicine 06/07/23 Building Tech Relationship Specialty Start Date End Date Prabhjot Villatoro MD [address] [place] [address] PCP - General Family Medicine 06/07/23 Marisol Boyce NP [address] [place] [address] PCP - ACO Reach 05/04/24 Marisol Boyce NP [address] [place] [address] Nurse Practitioner Family Medicine 03/28/22 Marisol Boyce NP [address] [place] [address] Nurse Practitioner Family Medicine 06/07/23 Building Tech Relationship Specialty Start Date End Date Prabhjot Villatoro MD [address] [place] [address] PCP - General Family Medicine 06/07/23 Marisol Boyce NP [address] [place] [address] PCP - ACO Reach 05/04/24 Marisol Boyce NP [address] [place] [address] Nurse Practitioner Family Medicine 03/28/22 Marisol Boyce NP [address] [place] [address] Nurse Practitioner Family Medicine 06/07/23 Building Tech Relationship Specialty Start Date End Date Prabhjot Villatoro MD [address] [place] [address] PCP - General Family Medicine 06/07/23 Marisol Boyce NP [address] [place] [address] PCP - ACO Reach 05/04/24 Marisol Boyce NP [address] [place] [address] Nurse Practitioner Family Medicine 03/28/22 Marisol Boyce NP [address] [place] [address] Nurse Practitioner Family Medicine 06/07/23 Building Tech Relationship Specialty Start Date End Date Prabhjot Villatoro MD [address] [place] [phone] PCP - General Family Medicine 06/07/23 Marisol Boyce NP [address] [place] [address] PCP - ACO Reach 05/04/24 Marisol Boyce NP [address] [place] [address] Nurse Practitioner Family Medicine 03/28/22 Marisol Boyce NP [address] [place] [address] Nurse Practitioner [facility] Medicine 06/07/23 Team Status: Active Member Role Status Dates Marisol Boyce Family Provider Active Marisol Boyce Primary Care Provider Active Team Status: Active Member Role Status Dates Clem Daniels DO Attending Provider Active Sta rt: November 27, 2024 Team Status: Active Member Role Status Dates Lj Carbajal DO Attending Provider Active St art: November 28, 2024 Team Status: Inactive Member Role Status Dates Marisol Boyce Primary Care Provider Active Sta rt: December 05, 2024 End: December 05, 2024 Marisol Boyce Attending Provider Active Start: December 05, 2024 End: December 05, 2024 Reason for Visit (unrecogniz ed section and content) Reason Comments Med Refill Reason Comments Follow-up Update H&P, EGD/Mentone n scheduled 04/11/24 at [facility] Reason Comments Colon Cancer Screening DUE FOR 5 YEAR RE CALL, LAST COLON 10-26-18 Specialty Diagnoses / Procedures Referred By Contac t Referred To Contact General Surgery Diagnoses Colon cancer screening Tubulovillous adenoma of colon Procedures [place] OFFICE OUTPATIENT VISIT 60-74 MINS HIGH MDM [id number] (SNOMED CT) - AMB REFERRAL TO GENERAL SURGERY Aichholz, Marisol J, WOOD REPATCHER-FURNACE OPERATOR [address] [place] [address] Phone: tel: fax: Sabino Mauricio, [address] [place] [address] Phone: tel: fax: Referral ID Status Reason Start Date Expiration Date Visits Re quested Visits Authorized [id number] Closed 02/15/2024 08/13/2024 1 1 Reason Comments [...] BE BASED ON THE PRIMARY CLINICAL RECORDS. [employer] provides no warranty or guarantee of the accuracy or completeness of information in this document.
--- OUTSIDE RECORDS SUMMARY | 2024-12-20 13:22 | XMS_ITS | Encounter Summary ---
Author Organization [facility] Address [address] [facility] [place] [address] Care Team Providers Care Director Wholesale Name Role Phone Marisol Boyce AUTOMATIC CLIPPER Unavailable [phone] Prabhjot Roman MD Primary Care Provider [phone] Marisol Boyce AUTOMATIC CLIPPER Unavailable [phone] Marisol Boyce NP Unavailable [phone] Encounter Details Date Type Department Care Team (Late st Contact Info) Description 10/03/2023 Orders Only [facility] [address] [place] [address] Marisol Boyce NP [address] [place] [address] Social History Tobacco Use Types Packs/Day Years [...] often do you attend [facility] or sikh services? More than 4 times per year 06/07/2023 Do you belong to any clubs o r organizations such as episcopalian groups, unions, fraternal or athletic groups, or [...] SCANNED LABS (10/03/2023 9:54 AM EDT) Marisol Bocye NP LAB CHG PERFORMABLES Final Resu lt documented in this encounter Visit Diagnoses Not on filedocumented in this encounter Additional Health Concerns Assessment Noted Time PHQ-9 Depression Total Score: 1 06/07/19 10:36 AM EDT documented as of this encounter Care Teams Director Wholesale Relationship Specialty Start Date End Date Prabhjot Roman MD PCP - General Family Medicine 06/07/23 Marisol Boyce NP [address] [place] [address] PCP - ACO Reach 05/04/24 Marisol Boyce NP Nurse Practitioner Family Medicine 03/28/22 Marisol Boyce NP Nurse Practitioner Family Medicine 06/07/23 documented as of this encounter
--- OUTSIDE RECORDS SUMMARY | 2024-12-20 13:22 | XMS_ITS | Encounter Summary ---
Author Organization [facility] Address [address] [facility] [place] [address] Care Team Providers Care Process Safety Engineering Technologist Name Role Phone Marisol Boyce MATHEMATICAL TECHNICIAN Unavailable [phone] Prabhjot Roman MD Primary Care Provider [phone] Marisol Boyce MATHEMATICAL TECHNICIAN Unavailable [phone] Marisol Boyce NP Unavailable [phone] Encounter Details Date Type Department Care Team (Late st Contact Info) Description 10/11/2023 External Result Encounter [facility] [address] [place] [address] Marisol Boyce NP [address] [place] [address] Social History Tobacco Use Types Packs/Day Years [...] How often do you attend chur or oriental orthodox services? More than 4 times per year 06/07/2023 Do you belong to any clubs o r organizations such as latter day groups, unions, fraternal or athletic groups, or [...] Recorded Patient Health Questionnaire-2 Score 0 06/07/2023 [facility] - [...] place to sleep or slept in a alf (including now)? No 06/07/2023 Sex and Gender [...] PM EDT THIS EXAM WAS PERFORMED AT [facility] XR CHEST 2 VWS INDICATION: Acute cough [...] - 10/11/2023 THIS EXAM WAS PERFORMED AT [facility] XR CHEST 2 VWS INDICATION: Acute cough [...] MD on 10/11/2023 12:16 PM Marisol Boyce NP IMG XR PROCEDURES Final Result documented in this encounter Visit Diagnoses Not on filedocumented in this encounter Additional Health Concerns Assessment Noted Time PHQ-9 Depression Total Score: 1 06/07/19 24 10:36 AM EDT documented as of this encounter Care Teams Process Safety Engineering Technologist Relationship Specialty Start Date End Date Prabhjot Roman MD PCP - General Family Medicine 06/07/23 Marisol Boyce NP [address] [place] [address] PCP - ACO Reach 05/04/24 Marisol Boyce NP Nurse Practitioner Family Medicine 03/28/22 Marisol Boyce NP Nurse Practitioner Family Medicine 06/07/23 documented as of this encounter
--- OUTSIDE RECORDS SUMMARY | 2024-12-20 13:22 | XMS_ITS | Encounter Summary ---
Author Organization [facility] Address [address] [facility] [place] [address] Care Team Providers Care Police Captain Name Role Phone Marisol Boyce FABRIC DESIGNER Unavailable [phone] Prabhjot Roman MD Primary Care Provider [phone] Marisol Boyce FABRIC DESIGNER Unavailable [phone] Marisol Boyce NP Unavailable [phone] Encounter Details Date Type Department Care Team (Late st Contact Info) Description 10/11/2023 Orders Only [facility] [address] [place] [address] Marisol Boyce NP [address] [place] [address] Social History Tobacco Use Types Packs/Day Years [...] week 06/07/2023 How often do you attend [facility] or synagogue services? More than 4 times per year 06/07/2023 Do you belong to any clubs o r organizations such as tenriism groups, unions, fraternal or athletic groups, or [...] Recorded Patient Health Questionnaire-2 Score 0 06/07/2023 [facility] - Occupational [...] place to sleep or slept in a nursing home (including now)? No 06/07/2023 Sex and [...] Modality Radiographic Carly ging us Marisol Boyce NP IMG XR PROCEDURES Final Result documented in this encounter Visit Diagnoses Not on filedocumented in this encounter Additional Health Concerns Assessment Noted Time PHQ-9 Depression Total Score: 1 06/07/19 10:36 AM EDT documented as of this encounter Care Teams Police Captain Relationship Specialty Start Date End Date Prabhjot Roman MD PCP - General Family Medicine 06/07/23 Marisol Boyce NP [address] [place] [address] PCP - ACO Reach 05/04/24 Marisol Boyce NP Nurse Practitioner Family Medicine 03/28/22 Marisol Boyce NP Nurse Practitioner Family Medicine 06/07/23 documented as of this encounter
--- OUTSIDE RECORDS SUMMARY | 2024-12-20 13:22 | XMS_ITS | Clinical Summary ---
Author Organization [facility] Address [address] [place] [address] Phone Care Team Providers Care Senior Medical Technologist Name Role Phone Unavailable Primary Care Provider [...]
--- OUTSIDE RECORDS SUMMARY | 2024-12-20 13:22 | XMS_ITS | Clinical Summary ---
Author Organization [facility] Address [address] [address] Care Team Providers Care Molding Line Assistant Name Role Phone Marisol Boyce MD Primary Care Provider [phone] Allergies No known active allergies Medications tamsulosin [...] complication, with long-term current use of insulin ([facility]) Inject 20 Units under the skin [...] breakfast for 180 doses. 90 tablet 2 025 Active rivaroxaban (Xarelto) 20 mg tabletIndications:Persi stent atrial fibrillation (CMS/HCC) Take 1 tablet (20 mg) by mouth daily with evening meal. Take with food. 90 tablet 3 025 Active ezetimibe (Zetia) 10 mg tabletIndications:Pure hypercholesterolemia Take 1 tablet (10 mg) by mouth at bedtime. 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 Ruiz Dizzy spells 04/30/2022 Primary hypertension 04/30/2022 Assessment & Plan [...] pulm function Thoracic spondylosis without myelopathy 01/08/20 22 Overview (04/30/2022): Added automatically from request for surgery [id number] Lumbosacral spondylosis without myelopathy 09/19 Overview (04/30/2022): Added automatically from request for surgery [id number] Disc displacement, lumbar 06/07/2019 Overview (04/30/2022): Added automatically from request for surgery [id number] Osteoarthritis of left hip 04/05/2019 Overview (04/30/2022): Added automatically from request for surgery [id number] Iliac crest bone pain 01/10/2019 Lumbar neuritis 01/10/2019 Trochanteric bursitis of left hip 11/29/2018 Disorder of sacrum 10/16/2018 Overview (04/30/2022): Added automatically from request for surgery [id number] Encounters Date Type Department Care Team Description 11/27/[address] [address] Joan Rooney MA 11/21/2024 Orders Only [address] [place] [address] Josephine Botello MD 11/02/[address] [place] [address] Erich Valenzuela MA Pure hypercholesterolemia 10/09/2024 10:45 AM EDT Office Visit [address] [place] [address] Natasha Campo MD Dizziness (Primary Dx); Palpitations; 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; PAD (peripheral artery disease); Primary hypertension; Paroxysmal atrial fibrillation (CMS/HCC); Essential hypertension 10/09/2024 Orders Only [address] [place] [address] Joan Rooney MA Persistent atrial fibrillation (CMS/HCC) (Primary Dx) from Last 3 Months Immunizations Immunization Administration Dates Next Due Covid (Flowonix) Bivalent Emil ter =>12 YRS 03/11/2022 Influenza, [...] Date Smoking Tobacco: Former Cigarettes Q uit: 2019 Passive Smoke Exposure: Past Smokeless Tobacco: Never Tobacco Cessation:Counseling Given: Not Answered Passive Exposure Comments:As a kid Alcohol Use Standard Drinks/Week Comments Yes 0 (1 standard drink = 0.6 oz pur e alcohol) occasional VoIP Supply Utilities Answer Date Recorded In the past 12 months has [employer], gas, oil, or water [employer] threatened to shut off services in your [...] place to sleep or slept in a jail (including now)? No 11/10/2023 Hunger Vital Sign [...] 12/24/2024 11:00 AM EDT Office Visit [facility] [address] [place] [address] Natasha Campo MD [address] [facility] [place] [address] Health Maintenance Due Date Last [...] this topic Medical Devices Implanted Type Area Forest Examiner Device Identifier Shelf Expiration Date Model / Serial / Lot Stent,Synergy Xd Mr [id number] - [id number] - [id number] Implanted:Qty: 1 on 02/28/2023 by Natasha Campo MD at [facility] Drug Eluting Stent Redeem [id number] 05/04/2024 [id number] / [id number] / [id number] Procedures Procedure Name Priority Date/Time Associated Diagnosis Comments CARDIAC EVENT MONITOR Routine 11/07/2024 9:48 AM EDT HEMOGLOBIN A1C Add-On 10/03/2023 6:22 AM EDT from Last 3 Months or Most Recently Relevant to Health Maintenance Results * Cardiac event monitor (11/07/2024 9:48 AM EDT) Anatomical Region Laterality Modality Other Historical Provider [facility] CARDIAC SERVICES MARLA RADER Final Result * (ABNORMAL) Hemoglobin A1c (10/03/2023 6:22 AM EDT) Hemoglobin A1C 8.5(H) 4.0 - 6.0 % 10/03/2023 12:43 PM EDT [facility] Estimated Average Glucose 197 mg/dL 10/03/2023 12:43 PM EDT [facility] Blood Venous blood specimen / Unknown Arterial Line / Unknown 10/03/2023 6:22 AM EDT 10/03/2023 6:32 AM EDT Josh Murphy [facility] BLOOD ORDERABLES Fi nal Result [facility] [address] [place], [place] [id number] from Last 3 Months or Most Recently Relevant to Health Maintenance Insurance MEDICARE [employer] Advance Directives * Full Code (Latest Code Status on File) Date Activated Date Inactivated Comments 09/30/2023 6:16 PM 10/07/2023 3:06 PM * Full Code Date Activated Date Inactivated Comments 02/28/2023 12:54 PM 02/28/2023 8:03 PM Care Teams Molding Line Assistant Relationship Specialty Start Date End Date Marisol Boyce MD [address] [place] [address] PCP - General 04/29/22
--- OUTSIDE RECORDS SUMMARY | 2024-12-20 13:23 | XMS_ITS | Encounter Summary ---
Author Organization [facility] Address [address] [place] [address] Care Team Providers Care Photographic Spotter Name Role Phone Marisol Boyce QUILL MACHINE TENDER Unavailable [phone] Prabhjot Roman MD Primary Care Provider [phone] Marisol Boyce QUILL MACHINE TENDER Unavailable [phone] Marisol Boyce NP Unavailable [phone] Encounter Details Date Type Department Care Team (Late st Contact Info) Description 01/11/2024 External Result Encounter [facility] [address] [place] [address] Marisol Boyce NP [address] [place] [address] Social History Tobacco Use Types Packs/Day Years [...] How often do you attend chur or church services? More than 4 times per year [...] Recorded Patient Health Questionnaire-2 Score 0 06/07/2023 [facility] - Occupational [...] sleep or slept in a fci (including now)? No 06/07/2023 Sex and Gender [...] PM EDT THIS EXAM WAS PERFORMED AT [facility] XR SPINE THORACIC 3 VWS: 01/11/2024 PROVIDED [...] - 01/11/2024 [facility] XR SPINE THORACIC 3 VWS: 01/11/2024 PROVIDED [...] MD on 01/11/2024 4:27 PM Marisol Boyce QUILL MACHINE TENDER IMG XR PROCEDURES Final Result documented in this encounter Visit Diagnoses Not on filedocumented in this encounter Additional Health Concerns Assessment Noted Time PHQ-9 Depression Total Score: 1 06/07/19 24 10:36 AM EDT documented as of this encounter Care Teams Photographic Spotter Relationship Specialty Start Date End Date Prabhjot Roman MD PCP - General Family Medicine 06/07/23 Marisol Boyce NP [address] [place] [address] PCP - ACO Reach 05/04/24 Marisol Boyce NP Nurse Practitioner Family Medicine 03/28/22 Marisol Boyce NP Nurse Practitioner Family Medicine 06/07/23 documented as of this encounter
--- OUTSIDE RECORDS SUMMARY | 2024-12-20 13:23 | XMS_ITS | Patient Health Record ---
Author Organization [facility] Address [address] [place] [address] Care Team Providers Care Services Rep Name Role Phone Prabhjot Roman Primary Care Provider Unavailabl e Reason For Referral No Information Immunizations Vaccine Route Administration Date Status Comme nts Flu Vaccine (Given in Past) Unspecified Unknown 10/17/2021 Administered Flu Vaccine (Given in Past) Unspecified Unknown 02/15/2023 Administered Pneumonia ( Given in the Pas t) Unspecified Unknown 10/17/2021 Administered Pneumonia ( Given in the Pas t) Unspecified Unknown 02/15/2023 Administered Problems Problem Type SNOMED Code ICD Code Onset Dates Problem Status W/U Status Risk Notes Diagnosis Impacted cerumen (81149399) Impacted cerumen, right ear (H61.21) Active confirmed Finding Impacted cerumen (20349908) Excessive cerumen in left ear canal (H61.22) Active confirmed Plan Of Treatment No Information Insurance Providers Payer Name Payer Address Payer Phone Subscriber Number Group Number Insured Name Patient Relationship to Insured Coverage Start Date Coverage End Date MED[place] [address] [address] [place] [address] [id number] Self - patient is the insured [facility] [address] [place] [address] [id number] Self - patient is the insured
--- OUTSIDE RECORDS SUMMARY | 2024-12-20 13:23 | XMS_ITS | Encounter Summary ---
Author Organization [facility] Address [address] [place] [address] Care Team Providers Care Helicopter Technician Name Role Phone Marisol Boyce HEAD OF ENGLISH Unavailable [phone] Prabhjot Roman MD Primary Care Provider [phone] Marisol Boyce NP Unavailable [phone] Marisol Boyce NP Unavailable [phone] Encounter Details Date Type Department Care [...] How often do you attend chur or zoroastrianism services? More than 4 times per year 06/07/2023 Do you belong to any clubs o r organizations such as buddhist groups, unions, fraternal or athletic groups, or [...] Recorded Patient Health Questionnaire-2 Score 0 06/07/2023 [facility] - Occupational [...] PM EST) Anatomical Region Laterality Modality Radiographic Caryl ging 03/29/2024 1:54 PM EST Narrative 03/29/2024 1:56 [place] [address] Vein Report Signed Patient: JARON MCARTHUR MR#: [id number] : 1945 Acct:[id number] Age/Sex: 78 / M ADM Date: 03/29/24 Loc: [facility] Attending Dr: Jing Carter M.D. Ordering Physician: Jing Carter M.D. Date of Service: 03/29/24 Procedure(s): VC SEGMENTAL PRESSURES Accession Number(s): [id number] cc: Marisol Boyce HEAD OF ENGLISH; Jing Carter M.D. The [address] [address] Patient Name: JARON MCARTHUR MRN: [id number] date: 1945 Sex: M Assigned Patient Location: Current Patient Location: VC Accession/Order Number: [id number] Exam Date: 03/29/2024 12:49 Report Date: 03/29/2024 13:54 At the request of: JING CARTER Procedure: VC SEGMENTAL PRESSURES EXAM: VC SEGMENTAL PRESSURES HISTORY: I73.9 COMPARISON: None. FINDINGS: Segmental pressures presented as follows (right, left) in mmHg. Brachial: 151, 152 Upper thigh: 176, 173 Lower thigh: 192, 171 Calf: 168, 199 DPA: 146, 160 STUMPER FELLER: 161, 157 1st Toe: 155, 127 FADY: [...] Signed By: 03/29/24 1356 DD/ 1354 TD/TT: Mail Distribution Scheme Examiner: Procedure Note Radiology, Radiologist, MD - 03/29/2024 [facility] [place] [id number] Vein Report Signed Patient: JARON MCARTHUR AMR#: [id number] : 1945cct:[id number] Age/Sex: 78 / MADM Date: 03/29/24 Loc: [facility] Attending Dr: Jing Carter M.D. Ordering Physician: Jing Carter M.D. Date of Service: 03/29/24 Procedure(s): VC SEGMENTAL PRESSURES Accession Number(s): [id number] cc: Marisol Boyce HEAD OF ENGLISH; Jing Carter M.D. [facility] [place] [id number] Patient Name: JARON MCARTHUR MRN: [id number] date: 1945 Sex: M Assigned Patient Location: VC Current Patient Location: Accession/Order Number: [id number] Exam Date: 03/29/2024 12:49 Report Date: 03/29/2024 13:54 At the request of: JING CARTER Procedure: VC SEGMENTAL PRESSURES EXAM: VC SEGMENTAL PRESSURES HISTORY: I73.9 COMPARISON: None. FINDINGS: Segmental pressures presented as follows (right, left) in mmHg. Brachial: 151, 152 Upper thigh: 176, 173 Lower thigh: 192, 171 Calf: 168, 199 DPA: 146, 160 STUMPER FELLER: 161, 157 1st Toe: 155, 127 FADY: [...] M.D. Signed By:03/29/24 1356 DD/ 1354 TD/TT: Mail Distribution Scheme Examiner: us Generic External Data Provider IMG XR PROCEDURES Final Result documented in this encounter Visit Diagnoses Not on filedocumented in this encounter Additional Health Concerns Assessment Noted Time PHQ-9 Depression Total Score: 1 06/07/19 24 10:36 AM EDT documented as of this encounter Care Teams Helicopter Technician Relationship Specialty Start Date End Date Prabhjot Roman MD PCP - General Family Medicine 06/07/23 Marisol Boyce NP [address] [place] [address] PCP - ACO Reach 05/04/24 Marisol Boyce NP Nurse Practitioner Family Medicine 03/28/22 Marisol Boyce NP Nurse Practitioner Family Medicine 06/07/23 documented as of this encounter
--- OUTSIDE RECORDS SUMMARY | 2024-12-20 13:23 | XMS_ITS | Encounter Summary ---
Author Organization [facility] Address [address] [facility] [place] [address] Care Team Providers Care Music Sound Light Technician Name Role Phone Marisol Boyce CARE CLINICIAN Unavailable [phone] Prabhjot Roman MD Primary Care Provider [phone] Prabhjot Roman MD Primary Care Provider [phone] Marisol Boyce CARE CLINICIAN Unavailable [phone] Marisol Boyce CARE CLINICIAN Unavailable [phone] Encounter Details Date Type Department Care Team (Late st Contact Info) Description 04/10/2023 Abstract [facility] [address] [place] [address] Marisol Byoce, CARE CLINICIAN [address] [place] [address] Social History Tobacco Use Types Packs/Day Years [...] on filedocumented in this encounter Care Teams Music Sound Light Technician Relationship Specialty Start Date End Date Prabhjot Roman MD PCP - General Family Medicine 04/06/23 06/06/23 Prabhjot Roman MD PCP - General Family Medicine 06/07/23 Marisol Boyce NP [address] [place] [address] PCP - ACO Reach 05/04/24 Marisol Boyce NP Nurse Practitioner Family Medicine 03/28/22 Marisol Boyce NP Nurse Practitioner Family Medicine 06/07/23 documented as of this encounter
--- OUTSIDE RECORDS SUMMARY | 2024-12-20 13:23 | XMS_ITS | Encounter Summary ---
Author Organization [facility] Address [address] [place] [address] Care Team Providers Care Collision Repair Technician Name Role Phone Marisol Boyce EXTENSION COURSE COUNSELOR Unavailable [phone] Prabhjot Roman MD Primary Care Provider [phone] Marisol Boyce NP Unavailable [phone] Marisol Boyce NP Unavailable [phone] Encounter Details Date Type Department Care [...] How often do you attend chur or latter day services? More than 4 times per year 06/07/2023 Do you belong to any clubs o r organizations such as faith groups, unions, fraternal or athletic groups, or [...] Recorded Patient Health Questionnaire-2 Score 0 06/07/2023 [facility] Occupat ional Health - Occupational Stress [...] place to sleep or slept in a m[facility] (including now)? No 06/07/2023 Sex and Gender [...] EST Narrative 03/19/2024 6:58 [place] [address] Cardiology Report Signed Patient: JARON MCARTHUR MR#: [id number] : 1945 Acct:[id number] Age/Sex: 78 / M ADM Date: 03/19/24 Loc: CARD Attending Dr: Jing Carter M.D. Ordering Physician: Jing Carter M.D. Date of Service: 03/19/24 Procedure(s): CA echo doppler complete Accession Number(s): [id number] cc: Marisol Boyce EXTENSION COURSE COUNSELOR; Jing Carter M.D. Patient Name: JARON MCARTHUR MR#: [id number] : 1945 Exam Date: 03/19/2024 Ordering Doctor: [...] SILVEIRA Signed By: 03/19/241857 DD/ 56 TD/TT: Hand Potter: Procedure Note Radiology, Radiologist, MD - 03/19/2024 [facility] [place] [id number] Cardiology Report Signed Patient: JARON MCARTHUR AMR#: [id number] : 1945cct:[id number] Age/Sex: 78 / MADM Date: 03/19/24 Loc: CARD Attending Dr: Jing Carter M.D. Ordering Physician: Jing Carter M.D. Date of Service: 03/19/24 Procedure(s): CA echo doppler complete Accession Number(s): [id number] cc: Marisol Boyec NP; Jing Carter M.D. Patient Name: JARON MCARTHUR MR#: [id number] : 1945 Exam Date: 03/19/2024 Ordering Doctor: [...] ELIEZER SILVEIRA Signed By:03/19/241857 DD/ 56 TD/TT: Hand Potter: us Generic External Data Provider [facility] Final Result documented in this encounter Visit Diagnoses Not on filedocumented in this encounter Additional Health Concerns Assessment Noted Time PHQ-9 Depression Total Score: 1 06/07/19 10:36 AM EDT documented as of this encounter Care Teams Collision Repair Technician Relationship Specialty Start Date End Date Prabhjot Roman MD PCP - General Family Medicine 06/07/23 Marisol Boyce NP [address] [place] [address] PCP - ACO Reach 05/04/24 Marisol Boyce NP Nurse Practitioner Family Medicine 03/28/22 Marisol Boyce NP Nurse Practitioner Family Medicine 06/07/23 documented as of this encounter
--- OUTSIDE RECORDS SUMMARY | 2024-12-20 13:24 | XMS_ITS | Encounter Summary ---
Author Organization [facility] Address [address] [place] [address] Care Team Providers Care Heel Reducer Name Role Phone Marisol Boyce DIRECTOR OF RETAIL ANALYTICS Unavailable [phone] Prabhjot Roman MD Primary Care Provider [phone] Marisol Boyce NP Unavailable [phone] Marisol Boyce NP Unavailable [phone] Encounter Details Date Type Department Care [...] How often do you attend chur or taoism services? More than 4 times per year [...] Recorded Patient Health Questionnaire-2 Score 0 06/07/2023 [facility] Occupat ional Health - Occupational [...] place to sleep or slept in a m[facility] (including now)? No 06/07/2023 Sex and Gender [...] EDT Narrative 12/09/2023 2:54 [place] [address] Nuclear Medicine Report Signed Patient: JARON MCARTHUR MR#: [id number] : 1945 Acct:[id number] Age/Sex: 78 / M ADM Date: 12/09/23 Loc: [place] Attending Dr: Natasha Campo M.D. Ordering Physician: Natasha Campo M.D. Date of Service: 12/09/23 Procedure(s): NM tone perf SPECT rest str Accession Number(s): [id number] cc: Marisol Boyce DIRECTOR OF RETAIL ANALYTICS; Natasha Campo M.D. Patient Name: JARON BREWER#: [id number] : 1945 Exam Date: 12/09/2023 Ordering Doctor: DR Natasha Campo M.D. RADIOLOGY REPORT PROCEDURE: NM TONE PERF SPECT REST STR COMPARISON: NM TONE PERF SPECT REST STR, 01/12/2023. 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 Mid-inferior. [place]. SIZE: Medium (3-4 segments). SEVERITY: Moderate. TYPE: [...] Signed By: 12/09/23 1454 DD/ 52 TD/TT: Forest Economics Professor: Procedure Note Radiology, Radiologist, - 12/09/2023 [place] [address] Nuclear Medicine Report Signed Patient: JARON MCARTHUR AMR#: [id number] : 1945cct:[id number] Age/Sex: 78 / MADM Date: 12/09/23 Loc: [place] Attending Dr: Natasha Campo M.D. Ordering Physician: Natasha Campo M.D. Date of Service: 12/09/23 Procedure(s): NM tone perf SPECT rest str Accession Number(s): [id number] cc: Marisol Boyce DIRECTOR OF RETAIL ANALYTICS; Natasha Campo M.D. Patient Name: JARON MCARTHUR MR#: [id number] : 1945 Exam Date: 12/09/2023 Ordering Doctor: DR Natasha Campo M.D. RADIOLOGY REPORT PROCEDURE: NM TONE PERF SPECT REST STR COMPARISON: [place] TONE PERF SPECT REST STR, 01/12/2023. 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 Mid-inferior. [place]. SIZE: Medium (3-4 segments). SEVERITY: Moderate. TYPE: [...] M.D. Signed By:12/09/23 1454 DD/ 1453 TD/TT: Forest Economics Professor: us Generic External Data Provider [facility] Final Result documented in this encounter Visit Diagnoses Not on filedocumented in this encounter Additional Health Concerns Assessment Noted Time PHQ-9 Depression Total Score: 1 06/07/19 24 10:36 AM EDT documented as of this encounter Care Teams Heel Reducer Relationship Specialty Start Date End Date Prabhjot Roman MD PCP - General Family Medicine 06/07/23 Marisol Boyce NP [address] [place] [address] PCP - ACO Reach 05/04/24 Marisol Boyce NP Nurse Practitioner Family Medicine 03/28/22 Marisol Boyce NP Nurse Practitioner Family Medicine 06/07/23 documented as of this encounter
== END 2024-12-20 13:17 | disposition home or self-care (01) ==
LOC: MRI 13:16
PROVIDERS: PCP Nurse Practitioner; Visit Provider Nurse Practitioner
DX: M47.816 Spondylosis without myelopathy or radiculopathy, lumbar region (principal); M51.369 Other intervertebral disc degeneration, lumbar region without mention of lumbar back pain or lower extremity pain
CPT/HCPCS: 72146; 72148

== ENCOUNTER 2025-03-04 12:47 | Outpatient (OUT) | payer MEDICARE, OTHER, SELFPAY ==
--- OUTSIDE RECORDS SUMMARY | 2025-03-04 12:56 | XMS_ITS | CCD ---
Author Organization [facility] Care Team Providers Care Beef Grinder Name Role Phone MARISOL BOYCE Primary Care Physician Unavaila ble AICHHOLZ, SECURITY FLEX UTILITY OFFICER MARISOL Admitting Unavailable AICHHOLZ, SECURITY FLEX UTILITY OFFICER MARISOL Attending Unavailable AICHHOLZ, SECURITY FLEX UTILITY OFFICER MARISOL Primary Care Unavailable AICHHOLZ, SECURITY FLEX UTILITY OFFICER MARISOL Consulting Unavailable AICHHOLZ, SECURITY FLEX UTILITY OFFICER MARISOL Admitting Unavailable AICHHOLZ, SECURITY FLEX UTILITY OFFICER MARISOL Attending Unavailable AICHHOLZ, SECURITY FLEX UTILITY OFFICER AMRISOL Primary Care Unavailable AICHHOLZ, SECURITY FLEX UTILITY OFFICER MARISOL Consulting Unavailable DR SANJAY REECE Consulting Unavailable ROSEANNA, MARCO Admitting Unavailable ROSEANNA, MARCO Attending Unavailable AICHHOLZ, SECURITY FLEX UTILITY OFFICER MARISOL Primary Care Unavailable ROSEANNA, MARCO Consulting Unavailable AICHHOLZ, SECURITY FLEX UTILITY OFFICER MARISOL Admitting Unavailable AICHHOLZ, SECURITY FLEX UTILITY OFFICER MARISOL Attending Unavailable AICHHOLZ, SECURITY FLEX UTILITY OFFICER MARISOL Primary Care Unavailable AICHHOLZ, SECURITY FLEX UTILITY OFFICER MARISOL Consulting Unavailable FLOR, DWAIN Admitting Unavailable FLOR, DWAIN Attending Unavailable AICHHOLZ, SECURITY FLEX UTILITY OFFICER MARISOL Primary Care Unavailable FLOR, DWAIN Consulting Unavailable Aichholz ACCOUNT MANAGEMENT SPECIALIST, Marisol Unavailable Prabhjot Villatoro MD Primary Care Provider MARISOL BYOCE Primary Care Physician Aichsincere ACCOUNT MANAGEMENT SPECIALIST, Marisol Unavailable Prabhjot Villatoro MD Primary Care Provider Aichholz ACCOUNT MANAGEMENT SPECIALIST, Marisol Unavailable Marisol Boggs Primary Care Provider MARLIN KOCH Attending Unavailable AICHHOLZ, MARISOL J Referring Unavailable AICHHOLZ, MARISOL J Primary Care Unavailable MARLIN KOCH Attending Unavailable AICHHOLZ, MARISOL J Referring Unavailable AICHHOLZ, MARISOL J Primary Care Unavailable Sabino Mauricio DO Attending Provider Sabino Mauricio Attending Unavailable Sabino Mauricio Admitting Unavailable Aichholz ACCOUNT MANAGEMENT SPECIALIST, Marisol Unavailable Deja Perez Attending Unavailable AICHHOLZ, MARISOL J Admitting Unavailable AICHHOLZ, MARISOL J Attending Unavailable EUGENIOYAMILEX HARRIS E Admitting Unavailable EUGENIO YAMILEX E Attending Unavailable Fiona Beaver Attending Unavailable EUGENIO, YAMILEX E Attending Unavailable EUGENIO, YAMILEX E Admitting Unavailable AICHHOLZ, MARISOL J Attending Unavailable AICHHOLZ, MARISOL J Admitting Unavailable AICHHOLZ, MARISOL Attending Unavailable AICHHOLZ, MARISOL Attending Unavailable AICHHOLZ, MARISOL Attending Unavailable AICHHOLZ, MARISOL Attending Unavailable AICHHOLZ, MARISOL Attending Unavailable AICHHOLZ, MARISOL Attending Unavailable AICHHOLZ, MARISOL Attending Unavailable Clem Daniels DO Attending Provider Lj Carbajal DO Attending Provider [phone] Mraisol Boyce Primary Care Provider Marisol Boyce Attending Provider [phone] Carli ACCOUNT MANAGEMENT SPECIALIST-CMarisol Primary Care Provider [phone] Carli ACCOUNT MANAGEMENT SPECIALIST-CMarisol Attending Provider [phone] Zoey Marx PA-C Attending Provider Jackson Mcfarland DO Attending Provider [phone] Carli EFFICIENCY ENGINEER-SECURITY FLEX UTILITY OFFICERMarisol Primary Care Provider DWAIN PORTILLO Attending Unavailable ELTAHAWKervin, EHAB Attending Unavailable RAUL, NOELLEAB Attending Unavailable Aichholtu ACCOUNT MANAGEMENT SPECIALIST, Marisol Unavailable Prabhjot Villatoro MD Primary Care Provider Carli ACCOUNT MANAGEMENT SPECIALIST, Marisol Unavailable Carli ACCOUNT MANAGEMENT SPECIALIST, Marisol Unavailable CARLI MARISOL J Primary Care Unavailable ELTAHAWY, EHAB [...] Unavailable CHINOHOLTu, MARISOL J Primary Care Unavailable AICMARISOL CONWAY J Referring Unavailable CHINOHOLTu, MARISOL J Primary Care Unavailable AICZORAIDA, MARISOL J Referring Unavailable ERIC PETERSON Attending Unavailable MARISOL BOYCE Primary Care Unavailable MARISOL BOYCE J Referring Unavailable GABRIEL HANSON Admitting Unavailable GABRIEL HANSON Attending Unavailable AICHHOLZ, MARISOL J Primary Care Unavailable GABRIEL HANSON Attending Unavailable GABRIEL HANSON Referring Unavailable MARISOL BOYCE Primary Care Unavailable ZOEY MARX Referring Unavailable ZOEY MARX Attending Unavailable ZOEY MARX Referring Unavailable MARISOL BOYCE Primary Care Unavailable ZOEY MARX Referring Unavailable MARISOL BOYCE Primary Care Unavailable ZOEY MARX Attending Unavailable MARISOL BOYCE Referring Unavailable AICMARISOL CONWAY Primary Care Unavailable ZOEY MARX Referring Unavailable AICMARISOL CONWAY Primary Care Unavailable Medications Current Medications MedicationDrug Class(es)DatesSig (Normalized)Sig (Original)[id number] 200 actuat albuterol 0.09 mg/actuat metered dose inhaler (20 sources)beta2-Adrenergic AgonistStart: 19-94-8430haik 2 puff(s) by mouth every six hours as needed for wheezingalbuterol (PROVENTIL HFA;VENTOLIN HFA) 90 mcg/actuation inhaler Indications: COPD, moderate ([facility]) INHALE 2 PUFFS BY MOUTH EVERY 6 HOURS NEEDED FOR WHEEZING 54 g 1 07/01/2022 Activeamiodarone hydrochloride 200 mg oral tablet (20 sources)AntiarrhythmicStart: 10-07-2023 End: 76-14-5032nimy 1 tablet by mouth once dailyamiodarone (Pacerone) 200 MG tablet Take 200 mg by mouth Daily 01/02/2024 ActiveamLODIPine 5 mg oral tablet (8 sources)Dihydropyridine Calcium Channel BlockerStart: 10-07-2023 End: 04-84-9895ghbo 1 tablet by mouth in the morningamLODIPine (Norvasc) 5 MG tablet Take 5 mg by mouth in the morning. 10/07/2023 01/14/2024 Activeapixaban 5 mg oral tablet (20 sources)Factor Xa InhibitorStart: 03-14-2024 End: 88-24-8297gqut 1 tablet by mouth twice dailyStart: 10-07-2023 End: 91-71-7412mmta 1 tablet by mouth in the morningapixaban (Eliquis) 5 MG tablet Take 5 mg by mouth in the morning and 5 mg in the evening. 10/07/2023 01/13/2024 Activeaspirin 81 mg oral tablet (20 sources)Platelet Aggregation Inhibitor, Nonsteroidal Anti-inflammatory Drug Start: 19-29-9160dxkb 1 tablet by mouth once dailyStart: 30-99-5569Biqaxen Low Dose 81 MG chewable tablet Chew 81 mg Daily 10/07/2023 ActiveStart: 03-12-2013 take 81 mg by mouth once dailyaspirin 81 mg, Oral, Daily, Refills(s) 0, Blood Thinner Start Date: 03/12/13 Status: Ordered Repeatnumber: 1take 1 tablet by mouth in the morningaspirin 81 mg Take 1 tablet (81 mg total) by mouth in the morning. Activeatorvastatin 80 mg oral tablet (20 sources)HMG-CoA Reductase InhibitorStart: 49-14-3913wqpa 1 tablet by mouth once dailycarvedilol 3.125 mg oral tablet (20 sources)alpha-Adrenergic Cesilia, beta-Adrenergic BlockerStart: 10-07-2023 take 1 tablet by mouth in the morningcarvedilol (Coreg) 3.125 MG tablet Take 3.125 mg by mouth in the morning and 3.125 mg in the evening. Take with meals. 10/07/2023 ActiveStart: 10-19-2021 End: 02-90-4834dsuc 1 tablet by mouth in the morning, then take 1 tablet by mouth at bedtimecarvediloL (COREG) 12.5 mg tablet Take 1 tablet (12.5 mg total) by mouth in the morning and 1 tablet (12.5 mg total) before bedtime. 10/19/2021 03/05/2024 Discontinued (Therapy completed)take 6.25 mg by mouth in the morning carvedilol (Coreg) 12.5 MG tablet Take 6.25 mg by mouth in the morning and 6.25 mg at noon. 0 Activeciprofloxacin 500 mg oral tablet (2 sources)Quinolone AntimicrobialStart: 92-41-9072gsqc 1 mg by mouth every twelve hoursCipro 500 mg Tab mg tab(s), Oral, q12hr, Refills(s) 0 Start Date: 03/13/20 Status: Orderedclopidogrel 75 mg oral tablet (20 sources)P2Y12 Platelet InhibitorStart: 03-12-2013 End: 62-48-4046wncg 75 mg by mouth once dailyclopidogrel 75 mg, Oral, Daily, Refills(s) 0, Blood Thinner Start Date: 03/12/13 Status: Ordered Repeat number: 1Continuous Glucose Medical Policy Specialist (Dexcom G7 Medical Policy Specialist) device (8 sources)Start: 10-20-2023 End: 43-34-9469Agclwrdscl Glucose Medical Policy Specialist (Dexcom G7 Medical Policy Specialist) device Indications: Type 2 diabetes mellitus without complication, with long-term current use of insulin ([facility]) 1 each Daily 1 each 1 10/20/2023 01/28/2024 ActiveContinuous Glucose Sensor (Dexcom G7 Sensor) misc (8 sources)Start: 10-20-2023 End: 20-34-7240Nqqvyrsgse Glucose Sensor (Dexcom G7 Sensor) misc Indications: Type 2 diabetes mellitus without complication, with long-term current use of insulin ([facility]) 1 each Daily 12 each 4 10/20/2023 01/18/2024 Active dapagliflozin 5 mg oral tablet (20 sources)Sodium-Glucose Cotransporter 2 InhibitorStart: 48-77-4488icca 1 tablet by mouth once dailyStart: 38-63-2529qgvw 1 tablet by mouth once daily Farxiga 10 mg oral tablet 10 mg = 1 tab(s), Oral, Daily, Refills(s) 0 Start Date: 07/11/23 Status: Ordered Repeat number: 1docusate sodium 50 mg / sennosides, half-way 8.6 mg oral tablet (5 sources)Start: 12-05-2024 End: 53-03-2659zaeg 1 tablet by mouth once daily at bedtimeezetimibe 10 mg oral tablet (20 sources)Dietary Cholesterol Absorption InhibitorStart: 02-13-2024 End: 38-84-8722ipcy 1 tablet by mouth once dailyStart: 10-07-2023 End: 40-83-5237fszm 1 tablet by mouth at bedtimeezetimibe (Zetia) 10 MG tablet Take 10 mg by mouth at bedtime 10/07/2023 01/12/2024 Activeferrous sulfate 325 mg oral tablet (20 sources)Start: 12-05-2024 End: 94-89-1377uaxl 1 tablet by mouth in the morningferrous sulfate 325 (65 FE) MG tablet Take 1 tablet (325 mg total) by mouth in the morning. 12/05/2024 ActiveStart: 10-19-2023 End: 86-39-9716bjgc 1 tablet by mouth in the morningferrous sulfate (FeroSul) 325 (65 Fe) MG tablet Indications: Iron deficiency anemia, unspecified iron deficiency anemia type Take 1 tablet (325 mg) by mouth in the morning and 1 tablet (325 mg) in the evening. Take with meals. 180 tablet 1 10/19/2023 01/17/2024 ActiveStart: 04-11-2023 End: 10-09-6666dgtf 1 tablet by mouth in the morningferrous sulfate 325 (65 Fe) MG tablet Indications: Iron deficiency anemia, unspecified iron deficiency anemia type Take 1 tablet (325 mg) by mouth in the morning and 1 tablet (325 mg) before bedtime.180 tablet 1 04/11/2023 07/10/2023 Active End: 02-23-5801pfkw 1 tablet by mouth twice dailyferrous sulfate 325 (65 FE) mg tablet ferrous sulfate 325 mg (65 mg iron) tablet TAKE 1 TABLET BY MOUTH TWICE DAILY. MAY CAUSE DISCOLORATION OF STOOL 03/05/2024 Discontinued (Therapy completed)3 ml insulin detemir 100 unt/ml pen injector (20 sources)Insulin AnalogStart: 00-41-7636Ftcpiju FlexTouch 100 units/mL subcutaneous solution Refills(s) 0 Start Date: 06/12/20 Status: Ordered Repeat number: 1Start: 68-82-3006Najbrqy FlexTouch 100 units/mL subcutaneous solution Refills(s) 0 Start Date: 06/12/20 Status: Orderedinsulin detemir (LEVEMIR) 100 unit/mL injection Inject under the skin nightly. Active End: 73-32-0974egeknsw detemir U-100 (LEVEMIR) 100 unit/mL (3 mL) insulin pen 03/05/2024 Discontinued (Therapy completed)inject 50 [IU] by subcutaneous injection at bedtimeinsulin detemir (Levemir) 100 UNIT/ML injection Inject 50 Units under the skin at bedtime 0 Active3 ml insulin glargine 100 unt/ml pen injector (20 sources)Insulin AnalogStart: 34-75-9500Dmzev: 04-04-2024 End: 22-33-6361szpdmt 50 [IU] by subcutaneous injection once daily, then inject 50 [IU] by subcutaneous injection once dailyinsulin glargine (Lantus SoloStar) 100 UNIT/ML pen Indications: Type 2 diabetes mellitus without complication, with long-term current use of insulin ([facility]) Inject 50 Units under the skin Daily Pt to take up to a total of 50 units daily 45 mL 3 04/04/2024 ActiveStart: 93-56-8255dowqoql glargine,hum.rec.anlog (BASAGLAR KWIKPEN U-100 INSULIN) 100 unit/mL (3 mL) insulin pen Inject 35 Units under the skin nightly. 02/15/2024 ActiveStart: 03-22-2023 End: 53-72-4930zwercrr glargine (Basaglar KwikPen) 100 UNIT/ML pen Indications: Type 2 diabetes mellitus without complication, with long-term current use of insulin ([facility]) Up to 50 units daily 15 each 1 02/15/2024 04/04/2024 Discontinued (Cost of medication)insulin glargine-yfgn (Semglee-yfgn) 100 UNIT/ML pen (2 sources)Start: 03-29-2024 End: 45-92-2660tebyron glargine-yfgn (Semglee-yfgn) 100 UNIT/ML pen Indications: Type 2 diabetes mellitus without complication, with long-term current use of insulin ([facility]) Will use up to 50 units daily 45 mL 1 03/29/2024 04/04/2024 Discontinued (Cost of medication)Start: 48-03-2646kfxzhin glargine-yfgn (Semglee-yfgn) 100 UNIT/ML pen Indications: Type 2 diabetes mellitus without c omplication, with long-term current use of insulin ([facility]) Will use up to 50 units daily 45 mL 1 03/29/2024 Activelisinopril 20 mg oral tablet (20 sources)Angiotensin Converting Enzyme InhibitorStart: 91-02-0752zskv 1 tablet by mouth once dailyStart: 15-87-7795miapzugjlc 20 MG tablet 20 mg Daily 04/10/2024 ActiveStart: 02-25-2024 End: 70-25-7367hidmokuukk 5 MG tablet 02/25/2024 05/15/2024 Discontinued (Therapy completed)Start: 10-07-2023 End: 68-91-3338shjm 1 tablet by mouth in the morninglisinopril 20 MG tablet Take 20 mg by mouth in the morning. 10/07/2023 04/04/2024 Activetake 1 tablet by mouth in the morninglisinopriL (PRINIVIL,ZESTRIL) 10 mg tablet Take 1 tablet (10 mg total) by mouth in the morning. ActivemetFORMIN hydrochloride 500 mg oral tablet (20 sources)BiguanideStart: 18-54-2835scax 1 tablet by mouth twice dailyStart: 02-15-2024 End: 52-20-7863hpoh 1 tablet by mouth in the morningmetFORMIN (Glucophage) 500 MG tablet Indications: Type 2 Diabetes Mellitus Take 1 tablet (500 mg) by mouth in the morning and 1 tablet (500 mg) in the evening. Take with meals. 180 tablet 08/10/2024 11/08/2024 ActiveStart: 65-25-3228fcro 1000 mg by mouth twice daily metformin 1,000 mg, Oral, BID, Refills(s) 0, High blood sugar Start Date: 03/12/13 Status: Orderedtake 1 tablet by mouth once daily at breakfastmetFORMIN (GLUCOPHAGE) 1000 mg tablet Take 1 tablet (1,000 mg total) by mouth daily with breakfast.ActiveMetoprolol (20 sources)beta-Adrenergic BlockerStart: 98-87-6122ihhqlacoab Oral, Daily, Refills(s) 0, High blood pressure Start Date: 03/12/13 Status: Ordered Repeat number: 1Start: 28-04-8024ixxlnsazsb Oral, Daily, Refills(s) 0, High blood pressure Start Date: 03/12/13 Status: Ordered End: 11-27-8928tygq 1 tablet by mouth every twenty-four hours in the morning metoprolol succinate XL (TOPROL-XL) 25 mg 24 hr tablet Take 1 tablet (25 mg total) by mouth in the morning. 03/05/2024 Discontinued (Therapy completed) omeprazole 40 mg delayed release oral capsule (20 sources)Proton Pump InhibitorStart: 04-16-2024 End: 56-19-9861ygfx 1 capsule by mouth in the morningomeprazole (PriLOSEC) 40 mg capsule Take 1 capsule (40 mg total) by mouth in the morning. 30 capsule 1 04/16/2024 ActiveStart: 01-05-2022 End: 98-38-3119syit 1 capsule by mouth in the morningomeprazole (PriLOSEC) 20 mg capsule Take 1 capsule (20 mg total) by mouth in the morning. 01/05/2022 03/05/2024 Discontinued (Therapy completed)ONETOUCH VERIO FLEX misc (20 sources)Start: 04-20-2019 End: 70-78-3922WMUUMIZD VERIO FLEX misc USE TO TEST BLOOD SUGAR TID DIRECTED 04/20/2019 03/05/2024 Discontinued(Therapy completed)Start: 53-81-8234GYBNUVJG VERIO FLEX misc USE TO TEST BLOOD SUGAR TID DIRECTED 04/20/2019 Activepeg 3350-sod sulf,ycih-xqp-zky 178.7-7.3-0.5 gram recon soln (1 source)Start: 03-05-2024 End: 99-78-1381fth 3350-sod sulf,mjwg-fac-pwf 178.7-7.3-0.5 gram recon soln Indications: Encounter for colonoscopydue to history of colonic polyp Take 1 kit by mouth once daily for 1 dose. Please see instructionalsheet given by physicians office. 1 each 03/05/2024 03/06/2024 Activeramipril 5 mg oral tablet (20 sources)Angiotensin Converting Enzyme InhibitorStart: 13-64-2593kvoz 5 mg by mouth once dailyramipril 5 mg, Oral, Daily, Refills(s) 0, High blood pressure Start Date: 03/12/13 Status: Ordered Repeat number: 1 End: 17-97-8614stop 1 capsule by mouth in the morningramipril (ALTACE) 5 mg capsule Take 1 capsule (5 mg total) by mouth in the morning. 03/05/2024 Disco ntinued (Therapy completed)rivaroxaban 20 mg oral tablet (2 sources)Factor Xa InhibitorStart: 33-58-6218krnp 1 tablet by mouth in the morningrivaroxaban (XARELTO) 20 mg tablet tablet Take 1 tablet (20 mg total) by mouth in the morning. 10/09/2024 ActiveSemglee, yfgn, 100 UNIT/ML pen (13 sources)Start: 04-04-2024 End: 98-60-0023rxcnrw 50 [IU] by subcutaneous injection once dailySemglee, yfgn, 100 UNIT/ML pen INJECT UP TO 50 UNITS UNDER THE SKIN EVERY DAY 04/04/2024 09/26/2024Discontinued (Therapy completed)Start: 28-28-5743leqmty 50 [IU] by subcutaneous injection once dailySemglee, yfgn, 100 UNIT/ML pen INJECT UP TO 50 UNITS UNDER THE SKIN EVERY DAY 04/04/2024 Activesennosides, half-way 8.6 mg oral tablet (17 sources)Start: 10-07-2023 End: 15-88-2000mhhc 1 tablet by mouth in the morningsennosides (Senokot) 8.6 MG tablet Take 8.6 mg by mouth in the morning and 8.6 mg in the evening. 10/07/2023 01/13/2024 Activesimvastatin 40 mg oral tablet (20 sources)HMG-CoA Reductase InhibitorStart: 03-12-2013 End: 38-41-0976shjr 40 mg by mouth once daily at bedtimesimvastatin 40 mg, Oral, Once a day (at bedtime), Refills(s) 0, High cholesterol Start Date: 03/12/13 Status: Ordered Repeat number: 1SITagliptin 100 mg oral tablet (1 source)Dipeptidyl Peptidase 4 InhibitorStart: 97-23-4860nogp 100 mg by mouth once dailyJanuvia 100 mg, Oral, Daily, Refill(s) 0, High blood sugar Start Date: 03/12/13 Status: Orderedtamsulosin hydrochloride 0.4 mg oral capsule (20 sources)alpha-Adrenergic BlockerStart: 07-05-2024 End: 07-13-0208dmyx 1 capsule by mouth every twenty-four hours at bedtime tamsulosin (Flomax) 0.4 MG 24 hr capsule Indications: Benign prostatic hyperplasia with lower urinary tract symptoms, symptom details unspecified Take 1 capsule (0.4 mg) by mouth at bedtime 90 capsule 3 07/05/2024 10/03/2024 Active Start: 06-18-2021 End: 30-52-7235zist 1 capsule by mouth once dailytamsulosin 0.4 mg Cap 0.4 mg = 1 cap(s), Oral, Daily, # 90 cap(s), Refills(s) 3, Pharmacy: [facility] #[id number], 77.8, kg, 06/18/22 9:54:00 EDT, Weight Dosing Start Date: 06/18/22 Status: Ordered Quantity: 90.0 Unit: cap(s) Repeat number: 430 actuat umeclidinium 0.0625 mg/actuat / vilanterol 0.025 mg/actuat dry powder inhaler (20 sources)Anticholinergic, beta2-Adrenergic AgonistStart: 07-01-2022 End: 61-96-5527nhdq 1 puff(s) by inhalation in the morningumeclidinium- vilanteroL (ANORO ELLIPTA) 62.5-25 mcg/actuation blister with device Inhale 1 puff in the morning. 60 each 10 07/01/2022 03/05/2024 Discontinued (Therapy completed) Completed/Discontinued Medications MedicationDrug Class(es)DatesSig (Normalized)Sig (Original)tadalafil 10 mg oral tablet (3 sources)Phosphodiesterase 5 InhibitorStart: 92-25-5382Cmhpyy 10 mg Tab See Instructions, PRN for erectile dysfunction, 1-2 tab(s) 30-60mins prior to sexual activity. do not exceed 20mg in 48 hrs., # 10 tab(s), Refills(s) 5, Pharmacy: [facility] #[id number], 182, cm, 07/11/23 14:01:00 EDT, Height/Length Dosing, 76, kg, 07/11/23 14:01:00 EDT, Weight Dosing Start Date: 07/11/23 Status: Ordered Quantity: 10.0 Unit: tab(s) Repeat number: 6 Problems Active Problems Problem ClassificationProblemDateDocumented DateEpisodic/ChronicAcute myocardial infarction (20 sources)Myocardial infarction; Translations: [Non-ST elevation (NSTEMI) myocardial infarction]Onset: 689974-45-2625TjmzaumDgurqqlc reactions (5 sources)Contact dermatitis due to -08-5112TvvrosepYigcslp dysrhythmias (20 sources)Atrial fibrillation; Translations: [Unspecified atrial fibrillation] Onset: 347385-95-1498PzoqkopOottarz obstructive pulmonary disease and bronchiectasis (20 sources)Moderate chronic obstructive pulmonary disease; Translations: [Chronic obstructive pulmonary disease, unspecified]Onset: ChronicCoagulation and hemorrhagic disorders (20 sources)Thrombophilia; Translations: [Other thrombophilia]Onset: 11-22-2023 96-51-4071LaxnjfiGubzdnsf atherosclerosis and other heart disease (20 sources)Coronary arteriosclerosis; Translations: [History of myocardial infarction]Onset: 655568-75-3965FbyylofLnohldvnoh and other anemia (5 sources)Wwygjo07-44-8914KodbooehZipxhikiqv and other anemia (7 sources)Iron deficiency anemia, unspecified; Translations: [IRON DEFICIENCY ANEMIA UNSPECIFIED]Onset: 98-63-0465OjffnzqfRddhlhfk mellitus with complications (20 sources)Type 2 diabetes mellitus; Translations: [Type 2 diabetes mellitus with other specified complication]Onset: 885060-38-0533UwfrthxIpvywkrc mellitus without complication (20 sources)Diabetes mellitus; Translations: [Type 2 diabetes mellitus without complications]Onset: 665253-14-8020JnihpokFfcdsamno of lipid metabolism (20 sources)Hyperlipidemia; Translations: [Hyperlipidemia, unspecified]Onset: 359974-09-6844HmceiphErcvfjvtix disorders (20 sources)Riley's esophagus; Translations: [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]Onset: 124253-24-0161TotthioMotzdqdyf hypertension (20 sources)Essential hypertension; Translations: [Essential (primary) hypertension]Onset: 662916-79-3819LfgmnurAratpwlkupung symptoms and ill- defined conditions (5 sources)Post-micturition dgjaxkmofgwg73-68-8053HsuzgnsOpystevnidhno symptoms and ill-defined conditions (19 sources)Incomplete emptying of bladder; Translations: [Nocturia]Onset: 959502-48-4353FgtqcznsFlnar valve disorders (20 sources)Mitral valve regurgitation; Translations: [Nonrheumatic mitral (valve) insufficiency]Onset: 025850-50-1493VqhrwshYziycoyekcd of prostate (20 sources)Benign prostatic hypertrophy with outflow obstruction; Translations: [Benign prostatic hyperplasia with lower urinary tract symptoms]Onset: 44-20-2752EmluxkgYlmbazs and fatigue (10 sources)Fatigue; Translations: [Other fatigue]Onset: EpisodicMiscellaneous mental health disorders (20 sources)Primary insomnia; Translations: [Primary insomnia]Onset: 05-15-2024 42-32-9031TtvmspkGmqi disorders (5 sources)Depressive gjhulqas27-59-6488KrnazjiIqshncumk or stenosis of precerebral arteries (2 sources)Occlusion and stenosis of bilateral carotid arteries; Translations: [Occlusion and stenosis of bilateral carotid arteries]Onset: 11-18-8829Sixyquw Osteoarthritis (20 sources)Osteoarthritis of left hip joint; Translations: [Unilateral primary osteoarthritis, left hip]Onset: 473384-16-3980AyovgijRxztg aftercare (1 source)Long-term current use of drug therapy; Translations: [director long term care (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 of antithrombotics/antiplatelets]Onset: 45-51-9065EavrdxvpGrrwz and ill-defined heart disease (20 sources)Left ventricular thrombus; Translations: [Intracardiac thrombosis, not elsewhere classified]Onset: 142313-67-6634JjibhbjCiayr and ill-defined heart disease (20 sources)Left ventricular aneurysm; Translations: [Aneurysm of heart]Onset: 622570-21-6813LvubockVpmqj circulatory disease (20 sources)Disorder of carotid artery; Translations: [Disorder of arteries and arterioles, unspecified]Onset: 895226-96-3121UkpiojkVykol connective tissue disease (5 sources)Bursitis of ewwri19-17-4832LbkintenFuxjb diseases of kidney and ureters (2 sources)Urinary tract obstruction; Translations: [Other obstructive and reflux uropathy]Onset: 62-96-2551JawotzkgKwnxh inflammatory condition of skin (5 sources)Granuloma hrokvfmc76-75-6148IpwmqmpfMgqhy injuries and conditions due to external causes (5 sources)At low risk for pfzb55-58-2786LowgkojmXlphm lower respiratory disease (5 sources)Hoyyhcf50-97-7408NxixcjqmSiqjm lower respiratory disease (1 source)Other forms of dyspnea; Translations: [OTHER FORMS OF DYSPNEA]Onset: 04-68-0676QjkxlvwoEuope male genital disorders (20 sources)Impotence; Translations: [Male erectile dysfunction, unspecified] Onset: 394136-21-2535XgwzrwxCwrjk male genital disorders (4 sources)Secondary erectile dysfunction; Translations: [Erectile dysfunction due to diseases classified elsewhere]23-17-9578XuhrulzXhgyj male genital disorders (5 sources)Pain in xcztfyqg94-80-2976SseytpghTdaby nervous system disorders (1 source)Other chronic pain; Translations: [Chronic bilateral low back pain without sciatica]Onset: 57-60-4623YcqxdeaQjhfv nutritional; endocrine; and metabolic disorders (1 source)Overweight in adulthood with body mass index of 25 or more but less than 30; Translations: [Body mass index (BMI) 25.0-25.9, adult]Onset: 06-18-2021 EpisodicOther nutritional; endocrine; and metabolic disorders (5 sources)Body mass index 25-29 - josxworjhf84-57-9891JmksnyhqDloxn skin disorders (5 sources)Night -32-6517BydvrreiVhzbn skin disorders (5 sources)Papule of ssdw27-55-8550PsyjpewrXbcgynhckm disorders (not diabetes) (5 sources)Pseudocyst of mtzciuyw29-09-5611PnklnwbkRnkowocjgr and visceral atherosclerosis (20 sources)Peripheral vascular disease, unspecified; Translations: [Peripheral vascular disease, unspecified]Onset: 800636-76-2422KtijwmkJaugoqbhf heart disease (2 sources)Pulmonary hypertension; Translations: [Pulmonary hypertension, unspecified]50-26-8455RvdxbajUcwxlomt codes; unclassified (20 sources)Obstructive sleep apnea syndrome; Translations: [Obstructive sleep apnea (adult) (pediatric)]Onset: 106851-09-6185VeqbtcpZrfaspxc codes; unclassified (2 sources)Obstructive sleep apnea (adult) (pediatric); Translations: [Obstructive sleep apnea (adult) (pediatric)]Onset: 37-85-3502JrcbslhGadezdam codes; unclassified (3 sources)Family history of cancer; Translations: [Family history of malignant neoplasm of prostate]Onset: 41-79-0726AqfvkywxOuqemycc codes; unclassified (5 sources)Family history of prostate ljumcc00-27-0699EjfodcyiUifzxczq codes; unclassified (3 sources)Insomnia; Translations: [Insomnia, unspecified]10-32-5806Vidhjbnf Screening and history of mental health and substance abuse codes (5 sources)Ax-oypmtg17-59ebbukm39-02-4130XvrvlnhdHgdhqrjgbql; intervertebral disc disorders; other back problems (20 sources)Lumbar spondylosis; Translations: [Herniation of nucleus pulposus of lumbar intervertebral disc]Onset: 183187-98-3313KbgpfdkGisadgfxsrj; intervertebral disc disorders; other back problems (20 sources)Backache; Translations: [Lumbosacral pain]Onset: 10-16-2018 30-49-6121CoibjoesMbzeuau disorders (20 sources)Hypothyroidism; Translations: [Other specified hypothyroidism]Onset: 623914-91-9634IhxkqaxMsqhdjlsrosl (5 sources)Asymptomatic microscopic -86-1996Pjbqpmmmoois (5 sources)Peripheral arterial kywtkuq75-91-8945Dgnqgqqzifhf (6 sources)Patient encounter wappei40-33-5341Jbduujkpefno (1 source)POST COVID-19 CONDITION UNSPECIFIED; Translations: [POST COVID-19 CONDITION UNSPECIFIED]Onset: 94-83-3494Ofasogmilfaq (1 source)Personal history of colon polyps, unspecified; Translations: [Personal history of colon polyps, unspecified]Onset: 33-20-3074Jdgqjyvvwjhr (1 source)Colon Cancer ScreeningOnset: 14-03-1749Yazhnpeukrpu (1 source)Chronic bilateral low back pain without sciatica; Translations: [Chronic bilateral low back pain without sciatica]Onset: 12-25-2024 Past or Other Problems Problem ClassificationProblemDateDocumented DateEpisodic/ChronicAbdominal hernia (20 sources)Hiatal hernia; Translations: [Diaphragmatic hernia without obstruction or gangrene]Onset: 409437-66-0927UuwsoxyqGjxvbwemq pain (1 source)Epigastric pain; Translations: [EPIGASTRIC PAIN]Onset: 01-09-2022 EpisodicCardiac dysrhythmias (2 sources)Palpitations; Translations: [Palpitations]Onset: 99-28-8794Ylimyqoe Conditions associated with dizziness or vertigo (20 sources)Dizziness and giddiness; Translations: [Dizziness and giddiness] Onset: 089218-42-7455FjkttzbdJfiiaivk atherosclerosis and other heart disease (1 source)Presence of coronary angioplasty implant and graft; Translations: [Presence of coronary angioplastyimplant and graft]Onset: 29-09-2861Sfvzolfo Deficiency and other anemia (20 sources)Iron deficiency anemia; Translations: [Iron deficiency anemia, unspecified]Onset: 980674-65-7004AzzwthvsIxro disorders (20 sources)Mood disordersOnset: 06-07-2023 Resolved: Other and unspecified benign neoplasm (20 sources)Adenomatous polyp of colon ; Translations: [Benign neoplasm of colon, unspecified]Onset: 228430-09-3422MhkqyabsIpmaz and unspecified benign neoplasm (6 sources)Benign neoplasm of colon, unspecified; 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]Onset: 323837-76-2029PtinebvaMzedf bone disease and musculoskeletal deformities (20 sources)Bone pain; Translations: [Other specified disorders of bone, other site]Onset: 825434-92-6118DhccnvbvJroai connective tissue disease (20 sources)Trochanteric bursitis of left hip; Translations: [Trochanteric bursitis, left hip]Onset: 240844-13-8425LmdgzgmqTprsy gastrointestinal disorders (1 source)Diarrhea, unspecified; Translations: [DIARRHEA UNSPECIFIED]Onset: 66-04-4652PffopdrgJsuba lower respiratory disease (20 sources)Cough; Translations: [Acute cough]Onset: EpisodicOther lower respiratory disease (20 sources)Cough; Translations: [Cough]Onset: 10-11-2023 Resolved: 664661-26-7899VdnerfikOvwby nutritional; endocrine; and metabolic disorders (1 source)Abnormal weight loss; Translations: [ABNORMAL WEIGHT LOSS]Onset: 61-98-8598DbhxbhepCdhbo screening for suspected conditions (not mental disorders or infectious disease) (20 sources)Encounter for screening for malignant neoplasm of prostate; Translations: [Screening for malignant neoplasm done]Onset: 74-21-9391Emampzvn Residual codes; unclassified (20 sources)Tobacco user; Translations: [Tobacco use]Onset: 06-07-2023 Resolved: 83-75-641609575915-11-7352Jxbtxmqm Results Test NameValueInterpretationReference RangeFacilityUS ABDOMEN LMTDon 01-28-2025 US ABDOMEN LMTDUS ABDOMEN LMTD US ABDOMEN LMTD HISTORY: Thrombocytopenia, iron deficiency anemia COMPARISON: None TECHNIQUE: Multiple real-time grayscale images were obtained in transverse and sagittal projections. Color Doppler was used. FINDINGS/IMPRESSION: Spleen appears unremarkable, measuring 12.1 x 8.4 x 4.6 cm. Approved by Enedina Bernard MD on 01/28/2025 10:52 AM I, Curt Rubio MD have personally reviewed the image(s) and agree with and/or edited the report Finalized by Curt Rubio MD on 01/28/2025 11:02 AMNormalProMedica Miller Children'S HospitalBEDSIDE GLUCOSEon 35-31-4513Oiwyzze [Mass/Vol]171 mg/cWKivs22-00 [facility] HospitalComment on above:Performed By: #### BEDG #### [facility] [address] [place] [address]. [place] [address] VIRCNPNon 32-04-5710TLXKLoayhiukz ([place]) KIMMY MCARTHUR ([id number]) 1945 M Date Time Provider Department 01/17/25 ZOEY MARX During your visit today, we recorded the following information about you: Zoey Marx PA-C 01/17/2025 12:31 PM Signed Call placed to patient's and explained that after talking to Dr. Padilla, the consensus was that a bone marrow biopsy is not necessary at this time. His lasbs show he is responding to iron and the epo level is high due to continued demand because still with mild anemia. Would recommend giving body 4 more weeks to utilize and store the iron he received 12/10 and 12/17/24. I will see him back at that time and repeat labs. As for the platelets, they are mildly low. Will check ultrasound of spleen to rule out splenomegaly. Monitor platelets and if continue to decline, we will reconsider BMBX. PSS: please call and schedule patient for RV and labs in 4 weeks with me, and US spleen at place of their chosing. ARMAND Putnam Ariana 01/17/2025 3:10 PM Signed Patient has been scheduled for labs and follow up with Zoey 02/14/25. Spoke with patient's who requested US be completed at [facility]. requesting [facility] to outreach to schedule so she can have her calendar readily available. Spoke with [facility] and faxed US order over. Per Poppy, patient will be outreached to schedule as soon as order is received. Will follow up to see when patient is scheduled. IGOR Marsh Ariana 01/18/2025 8:51 AM Signed Spoke to Stephanie in centralized scheduling with [facility]. Per Stephanie, patient is scheduled for US 01/28/25 at 11am. IGOR Marsh Natalie, RN 01/29/2025 9:56 AM Signed Pt , Jessica, informed of normal US, following review by MM. She denies any questions, needs or concerns at this time. Appointment verified. Charissa Jauregui RN Allergies As of Date: 01/17/2025 (No Known Allergies) Date Reviewed: 01/17/2025 Reviewed by: Zoey Marx PA-C - Fully Assessed Primary Visit Diagnosis:Thrombocytopenia [D69.6] Other Visit Diagnosis:Iron deficiency anemia, unspecified iron deficiency anemia type [D50.9] Order(s):COMPREHENSIVE METABOLIC PANEL [SQCMP] Order #: [id number] FUTURE IRON AND TIBC [SQIRON] Order #: [id number] FUTURE COMPLETE BLOOD COUNT AND DIFFERENTIAL [SQCBCDIF] Order #: [id number] FUTURE FERRITIN [SQFERR] Order #: [id number] FUTURE ERYTHROPOIETIN/EPO [SQEPO] Order #: [id number] FUTURE US ABD SPLEEN [4793175] Order #: [id number] FUTURE Prescriptions as of 01/29/2025 - insulin glargine,hum.rec.anlog (LANTUS U-100 INSULIN SQ) Inject subcutaneously. - lisinopril (ZESTRIL) 10 mg tablet Take 10 mg by mouth once daily. - tamsulosin (FLOMAX) 0.4 mg Take 0.4 mg by mouth once daily. - rivaroxaban (XARELTO) [...] once daily. Problem List As Of Date 01/17/2025 Noted Resolved Iron deficiency anemia [D50.9] 12/25/2024 Encounter Status:Closed by CHARISSA JAUREGUI on 01/29/25NormalCSt. Rita[facility] Hospital [facility] Auto Differential panel (Bld)on 65-94-1445Ejyzhfuwv (Bld) [#/Vol] 0.05 10*3/uLNormal<0.11CC[facility] on above:Order Comment: Specimen Type: BLOOD SPECIMEN Ordering Facility: [facility] Address: [address] [place], [place] [address]Performed By: #### 66748-4 #### [facility] CLIA [id number] [address] [place], [place] [address]Dfobrlwvl/100 WBC (Bld)0.8 %NormalKing'S Daughters Medical Center [place] Comment on above:Order Comment: Specimen Type: BLOOD SPECIMEN Ordering Facility: [facility] Address: [address] [place], [place] [address]Performed By: #### 82323-8 #### [facility] CLIA [id number] [address] [place] [address] 85720Znefaiqgumee cell count method Nom (Bld)AutoNormalCCleveland Clinic Lutheran Hospital on above:Order Comment: Specimen Type: BLOOD SPECIMEN Ordering Facility: [facility] Address: [address] [place], [place] [address]Performed By: #### 48931-7 #### [facility] CLIA [id number] [address] [place] [address] 24776Wnbgxlvzzvy (Bld) [#/Vol]0.28 10*3/uLNormal<0.46[facility] on above:Order Comment: Specimen Type: BLOOD SPECIMEN Ordering Facility: [facility] Address: [address] [place], [place] [address]Performed By: #### 43816-0 #### [facility] CLIA [id number] [address] [place] [address] 05374Hhqeknnuofi/100 WBC (Bld)4.7 %NormalKing'S Daughters Medical Center [place] Comment on above:Order Comment: Specimen Type: BLOOD SPECIMEN Ordering Facility: [facility] Address: [address] [place], [place] [address]Performed By: #### 33321-9 #### [facility] CLIA [id number] [address] [place] [address] 97899Zxpkbxkvrrz distribution width (RBC) [Ratio]17.4 %High 11.5-15.0[facility] on above:Order Comment: Specimen Type: BLOOD SPECIMEN Ordering Facility: [facility] Address: [address] [place], [place] [address]Performed By: #### 28345-8 #### [facility] CLIA [id number] [address] [place] [address] 90331Umsszaqzhv (Bld) [Volume fraction]38.5 %Low39.0-51.0[facility] on above:Order Comment: Specimen Type: BLOOD SPECIMEN Ordering Facility: [facility] Address: [address] [place], [place] [address]Performed By: #### 30906-4 #### [facility] CLIA [id number] [address] [place] [address] 73481Zrnqjadtny (Bld) [Mass/Vol]12.2 g/dLLow13.0-17.0[facility] on above:Order Comment: Specimen Type: BLOOD SPECIMEN Ordering Facility: [facility] Address: [address] [place], [place] [address]Performed By: #### 32712-7 #### [facility] CLIA [id number] [address] [place] [address] 37454Vnligttu granulocytes (Bld) [#/Vol]0.03 10*3/uLNormal<0.10 [facility] on above:Order Comment: Specimen Type: BLOOD SPECIMEN Ordering Facility: [facility] Address: [address] [place], [place] [address]Performed By: #### 53485-0 #### [facility] CLIA [id number] [address] [place] [address] 61133Korhwerc granulocytes/100 WBC (Bld)0.5 %NormalAdena Pike Medical Center on above:Order Comment: Specimen Type: BLOOD SPECIMEN Ordering Facility: [facility] Address: [address] [place], [place] [address]Performed By: #### 08825-1 #### [facility] CLIA [id number] [address] [place] [address] 41793Nbrlxjuxclh (Bld) [#/Vol]1.40 10*3/uLNormal1.00-4.00[facility] on above:Order Comment: Specimen Type: BLOOD SPECIMEN Ordering Facility: [facility] Address: [facility] [place], [place] [address]Performed By: #### 77124-5 #### [facility] CLIA [id number] [address] [place], [place] [address]Monqgiahkfa/100 WBC (Bld)23.5 %NormalAdena Pike Medical Center on above:Order Comment: Specimen Type: BLOOD SPECIMEN Ordering Facility: [facility] Address: [address] [place], [place] [address]Performed By: #### 31891-3 #### [facility] CLIA [id number] [address] [place] [address] 45309SJN (RBC) [Entitic mass]29.3 btIgrndk77.0-34.0[facility] on above:Order Comment: Specimen Type: BLOOD SPECIMEN Ordering Facility: [facility] Address: [address] [place], [place] [address]Performed By: #### 54802-9 #### [facility] CLIA [id number] [address] [place] [address] 80768LPQQ (RBC) [Mass/Vol]31.7 g/aCVuljax98.5-36.0[facility] on above:Order Comment: Specimen Type: BLOOD SPECIMEN Ordering Facility: [facility] Address: [address] [place], [place] [address]Performed By: #### 19003-4 #### [facility] CLIA [id number] [address] [place] [address] 66191CTA (RBC) [Entitic vol]92.3 dGPkybgc74.0-100.0[facility] on above:Order Comment: Specimen Type: BLOOD SPECIMEN Ordering Facility: [facility] Address: [address] [place], [place] [address]Performed By: #### 70912-5 #### [facility] CLIA [id number] [address] [place], [place] [address]Kxatusgdn (Bld) [#/Vol]0.50 10*3/uLNormal<0.87[facility] on above:Order Comment: Specimen Type: BLOOD SPECIMEN Ordering Facility: [facility] Address: [address] [place], [place] [address]Performed By: #### 50265-1 #### [facility] CLIA [id number] [address] [place], [place] [address]Icgymfklx/100 WBC (Bld)8.4 %NormalKing'S Daughters [facility] [place] Comment on above:Order Comment: Specimen Type: BLOOD SPECIMEN Ordering Facility: [facility] Address: [address] [place], [place] [address]Performed By: #### 63730-1 #### [facility] CLIA [id number] [address] [place] [address] 77434Oiczqecgkos (Bld) [#/Vol]3.69 10*3/uLNormal1.45-7.50[facility] on above:Order Comment: Specimen Type: BLOOD SPECIMEN Ordering Facility: [facility] Address: [address] [place], [place] [address]Performed By: #### 38620-9 #### [facility] CLIA [id number] [address] [place] [address] 16666Mlxtovzyfup/100 WBC (Bld)62.1 %NormalAdena Pike Medical Center on above:Order Comment: Specimen Type: BLOOD SPECIMEN Ordering Facility: [facility] Address: [address] [place], [place] [address]Performed By: #### 78937-3 #### [facility] CLIA [id number] [address] [place] [address] 09354Vsxqzllbj RBC (Bld) [#/Vol]10*3/uLNormal<0.01[facility] on above:Order Comment: Specimen Type: BLOOD SPECIMEN Ordering Facility: [facility] Address: [address] [place] [id number] By: #### 07547-6 #### [facility] CLIA [id number] [address] [place], [place] [address]Kmatuvybu RBC/100 WBC (Bld) [Ratio]0.0 /100 WBCNormalCCleveland Clinic Lutheran Hospital on above:Order Comment: Specimen Type: BLOOD SPECIMEN Ordering Facility: [facility] Address: [address] [place], [place] [address]Performed By: #### 22054-6 #### [facility] CLIA [id number] [address] [place], [place] [address]Rzionxqi mean volume (Bld) [Entitic vol]9.3 fLNormal9.0-12.7 [facility] on above:Order Comment: Specimen Type: BLOOD SPECIMEN Ordering Facility: [facility] Address: [address] [place], [place] [address]Performed By: #### 40924-0 #### [facility] CLIA [id number] [address] [place], [place] [address]Qrwqmwkno (Bld) [#/Vol]148 10*3/wPSih905-395CwgoijtqnAdena Pike Medical Center on above:Order Comment: Specimen Type: BLOOD SPECIMEN Ordering Facility: [facility] Address: [address] [place], [place] [address]Performed By: #### 14545-6 #### [facility] CLIA [id number] [address] [place], [place] [address]ESD (Bld) [#/Vol]4.17 10*6/uLLow4.20-6.00[facility] on above:Order Comment: Specimen Type: BLOOD SPECIMEN Ordering Facility: [facility] Address: [address] [place], [place] [address]Performed By: #### 86951-2 #### [facility] CLIA [id number] [address] [place] [address] 97[address]SHM (Bld) [#/Vol]5.95 10*3/uLNormal3.70-11.00[facility] on above:Order Comment: Specimen Type: BLOOD SPECIMEN Ordering Facility: [facility] Address: [address], [place] [address]Bwbevhxyl By: #### 86249-0 #### [facility] CLIA [id number] [address] [place], [place] [address]BMNGNPcw 45-99-4613PNKOBTYljfv (SP) Office (HEMAS[place]) KIMMY MCARTHUR ([id number]) 1945 M Date Time Provider Department 01/16/25 10:30 AM ZOEY MARX During your visit today, we recorded the following information about you: Temperature Pulse Respiration Blood pressure 97 degrees 65/minute 16/minute 142/64 Weight Height 77.4 kg 1.829 m Zoey Marx PA-C 01/16/2025 12:14 PM Signed [facility] ANEMIA CONSULTATION NOTE Hematologic Oncology and Blood Disorders PATIENT NAME: Kimmy Mcarthur DATE OF SERVICE: January 16, 2025 (Elements copied from my note dated 12/25/2024, have been reviewed and updated where appropriate, and all reflect current assessment and medical decision making during today's encounter, January 16, 2025) CHIEF COMPLAINT: Anemia HISTORY OF THE PRESENT ILLNESS: Initial visit: The patient is referred to Hematology today [...] amiodarone for his a-fib. He presented to [facility] on 11/27/24 with shortness of breath with exertion and feeling tired all of the time. Labs found he had a hemoglobin of 7.1. Iron studies showed a % saturation of 4.1, TIBC 339, Iron 14.0 and transferrin of 279. No [...] panel. He received 2 iron infusions at [facility] on 12/10/24 and 12/17/24. He felt better initially after the iron infusions. He isn't getting dizzy as often, but he is still weak. Breathing is also improved. No black stools or melena. Darker stools since starting iron pills. He is having constipation issues as well. 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 Otherwise denies any pain elsewhere. Interval History: 01/16/25: Rush returns for follow up. Overall feels well. Does have some fatigue, but nothing like before. He is scheduled at [facility] on 01/25 for injections in his back at pain clinic. Today we reviewed his labs: improving hemoglobin 12.2 but continued mildly low platelets 148K. Reviewed anemia work up findings, including elevated EPO level (74.5) with no known cause. He did stop taking his oral iron. He denies any new medications, h/o radiation, or chemical exposures in the past to explain his Symptoms/History Related to Anemia: Fatigue: Yes Pica: [...] Laterality Date CATARACT EXTRACTION HX EGD W/O BR (more content not included)...NormalKing'S Daughters [facility] [place] Ferritin SerPl-mCncon 12-06-0369Hccgacje [Mass/Vol]149.0 ng/uIEgatpx43.3-565.7 [facility] OhioComment on above:Order Comment: Specimen Type: BLOOD SPECIMEN Ordering Facility: [facility] Address: [address] [place], [place] [address]Performed By: #### 81764-7, 2276-4 #### [facility] CLIA [id number] [address] [place] [address] [place] AMER[place]ron and Iron binding capacity panel on 72-88-3808Wpwm [Mass/Vol]83 ug/aTJeiwoh94-515ZxgsmkvyaKing'S Daughters Medical Center [place] Comment on above:Order Comment: Specimen Type: BLOOD SPECIMEN Ordering Facility: [facility] Address: [address] [place], [place] [address]Performed By: #### 37617-8, 6-4 #### [facility] CLIA [id number] [address] [place] [address] [place] AMER[place]AIron binding capacity [Mass/Vol]240 ug/dGZmbidc892-501EknonhiweAdena Pike Medical Center on above:Order Comment: Specimen Type: BLOOD SPECIMEN Ordering Facility: [facility] Address: [address] [place], [place] [address]Performed By: #### 50619-5, 6-4 #### [facility] CLIA [id number] [address] [place] [address] [place] AMERICAIron/TIBC [Molar ratio]34.6 %Normal 15.0-57.0[facility] on above:Order Comment: Specimen Type: BLOOD SPECIMEN Ordering Facility: [facility] Address: [address] [place], [place] [address]Performed By: #### 62659-0, 6-4 #### [facility] CLIA [id number] [address] [place] [address] [place] AMERICAOffice Visiton [id number]-up [id number] Kimmy Mcarthur 1945 M Date Provider Department Center 01/03/2025 DWAIN DOMINGUEZ [facility] Family History Problem Relation Age of Onset Cancer Father Diabetes Father Family Status - Relation Status Age at Mother Father Level of Service:85622 [place] OFFICE/OUTPATIENT ESTABLISHED MOD MDM 30 MIN Reason for Visit and Comments: Follow-up [972720] - Patient is here today for a follow appointment. Patient recently wore a heart monitor and recent [facility] follow up. Patient was diagnosed while in the hospital with anemia. Patient had 2 units of blood and 2 iron infusions.Patient denies chest pain. Patient complains of SOB?BALBUENA, leg swelling. 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 Notified of degenerative [...] 12/25/2024 Encounter Status:Closed by CHARISSA JAUREGUI on 12/26/24[facility] TownshipAbsolute reticulocyte countOrdered By: ZOEY MARX on 12-25-2024 Reticulocytes (Bld) [#/Vol]0.0002 10*3/uLHigh0.018-0.100[facility] HospitalAlbumin [Mass/volume] in Serum or PlasmaOrdered By: ZOEY MARX on 82-92-5790Jaybsle [Mass/Vol]3.69 g/dL3.43-5.41[facility] HospitalAnisocytosis LM Ql (Bld)Ordered By: Marisol Boyce on 12-25-2024 Anisocytosis Ql (Bld)[facility] HospitalBasophils Auto (Bld) [#/Vol]Ordered By: Marisol Boyce on 31-67-0556Lnkusyyta (Bld) [#/Vol]0.04 10*3/uL<0.11[facility] HospitalBasophils/100 WBC Auto (Bld)Ordered By: Marisol Boyce on 68-73-3039Hfqhpofem/100 WBC (Bld)0.8 %[facility] HospitalBlood manual differential comment interpretation narrativeOrdered By: Marisol Boyce on 43-14-1049Ezdqxh differential comment Hans (Bld) [Interp] AutoMercy Health West HospitalCBC W Auto Differential panel (Bld)on 78-27-7202Heapytqqsgto Ql (Bld)[facility] HospitalComp[facility] on above:Order Comment: Specimen Type: BLOOD SPECIMEN Ordering Facility: [facility] Address: [address] [place], [place] [address]Performed By: #### SERIMM #### [facility] CLIA [id number] [address] [place] [address] [place] AMERICABasophils (Bld) [#/Vol]0.04 10*3/uLNormal<0.11CC[facility] on above:Order Comment: Specimen Type: BLOOD SPECIMEN Ordering Facility: [facility] Address: [address] [place], [place] [address]Performed By: #### SERIMM #### [facility] CLIA [id number] [address] [place], [place] [address] [place] AMERICABasophils/100 WBC (Bld)0.8 % NormalAdena [facility]ike [facility] Center on above:Order Comment: Specimen Type: BLOOD SPECIMEN Ordering Facility: [facility] Address: [address] [place], [place] [address]Performed By: #### SERIMM #### [facility] [place] [id number] [address] [place] [address] [place] AMERICADifferential cell count method Nom (Bld)AutoNormalCCleveland Clinic Lutheran Hospital on above:Order Comment: Specimen Type: BLOOD SPECIMEN Ordering Facility: [facility] Address: [address] [place], [place] [address]Performed By: #### SERIMM #### [facility] IA [id number] [address] [place], [place] [address] [place] AMERICAEosinophils (Bld) [#/Vol] 0.15 10*3/uLNormal<0.46[facility] on above:Order Comment: Specimen Type: BLOOD SPECIMEN Ordering Facility: [facility] Address: [address] [place], [place] [address]Performed By: #### SERIMM #### [facility] CLIA [id number] [address] [place], [place] [address] [place] AMERICAEosinophils/100 WBC (Bld)2.9 %NormalAdena Pike Medical Center on above:Order Comment: Specimen Type: BLOOD SPECIMEN Ordering Facility: [facility] Address: [address] [place], [place] [address]Performed By: #### SERIMM #### [facility] IA [id number] [address] [place] [address] [place] AMERICAErythrocyte distribution width (RBC) [Ratio]22.5 %High11.5-15.0[facility] on above:Order Comment: Specimen Type: BLOOD SPECIMEN Ordering Facility: [facility] Address: [address] [place], [place] [address]Performed By: #### SERIMM #### [facility] IA [id number] [address] [place] [address] [place] AMERICAHematocrit (Bld) [Volume fraction]34.5 %Low39.0-51.0[facility] on above:Order Comment: Specimen Type: BLOOD SPECIMEN Ordering Facility: [facility] Address: [address] [place], [place] [address]Performed By: #### SERIMM #### [facility] IA [id number] [address] [place] [address] [place] AMERICAHemoglobin (Bld) [Mass/Vol] 10.3 g/dLLow13.0-17.0[facility] on above:Order Comment: Specimen Type: BLOOD SPECIMEN Ordering Facility: [facility] Address: [address] [place], [place] [address]Performed By: #### SERIMM #### [facility] IA [id number] [address] [place] [address] [place] AMERICAImmature granulocytes (Bld) [#/Vol]10*3/uLNormal<0.10[facility] on above:Order Comment: Specimen Type: BLOOD SPECIMEN Ordering Facility: [facility] Address: [address] [place], [place] [address]Performed By: #### SERIMM #### [facility] CLIA [id number] [address] [place] [address] [place] AMERICAImmature granulocytes/100 WBC (Bld)0.4 %NormalAdena Pike Medical Center on above:Order Comment: Specimen Type: BLOOD SPECIMEN Ordering Facility: [facility] Address: [address] [place], [place] [address]Performed By: #### SERIMM #### [facility] CLIA [id number] [address] [place] [address] [place] AMERICALymphocytes (Bld) [#/Vol] 1.11 10*3/uLNormal1.00-4.00[facility] on above:Order Comment: Specimen Type: BLOOD SPECIMEN Ordering Facility: [facility] Address: [address] [place], [place] [address]Performed By: #### SERIMM #### [facility] CLIA [id number] [address] [place] [address] STATES AMERICALymphocytes/100 WBC (Bld) 21.5 %NormalAdena Pike Medical Center on above:Order Comment: Specimen Type: BLOOD SPECIMEN Ordering Facility: [facility] Address: [address] [place], [place] [address]Performed By: #### SERIMM #### [facility] CLIA [id number] [address] [place] [address] (RBC) [Entitic mass]28.6 znIzgvkv00.0-34.0[facility] on above:Order Comment: Specimen Type: BLOOD SPECIMEN Ordering Facility: [facility] Address: [address] [place], [place] [address]Performed By: #### SERIMM #### [facility] CLIA [id number] [address] [place], [place] [address] [facility] (RBC) [Mass/Vol]29.9 g/dLLow30.5-36.0[facility] on above:Order Comment: Specimen Type: BLOOD SPECIMEN Ordering Facility: [facility] Address: [address] [place], [place] [address]Performed By: #### SERIMM #### [facility] CLIA [id number] [address] [place] [address] [place] AMERICAMCV (RBC) [Entitic vol]95.8 pJJnufzh91.0-100.0[facility] on above:Order Comment: Specimen Type: BLOOD SPECIMEN Ordering Facility: [facility] Address: [address] [place], [place] [address]Performed By: #### SERIMM #### [facility] CLIA [id number] [address] [place] [address] [place] AMERICAMonocytes (Bld) [#/Vol]0.45 10*3/uLNormal<0.87[facility] on above:Order Comment: Specimen Type: BLOOD SPECIMEN Ordering Facility: [facility] Address: [address] [place], [place] [address]Performed By: #### SERIMM #### [facility] CLIA [id number] [address] [place] [address] [place] AMERICAMonocytes/100 WBC (Bld)8.7 % NormalAdena Pike Medical Center on above:Order Comment: Specimen Type: BLOOD SPECIMEN Ordering Facility: [facility] Address: [address] [place], [place] [address]Performed By: #### SERIMM #### [facility] CLIA [id number] [address] [place] [address] [place] AMERICANeutrophils (Bld) [#/Vol] 3.40 10*3/uLNormal1.45-7.50[facility] on above:Order Comment: Specimen Type: BLOOD SPECIMEN Ordering Facility: [facility] Address: [address] [place], [place] [address]Performed By: #### SERIMM #### [facility] CLIA [id number] [address] [place] [address] [place] AMERICANeutrophils/100 WBC (Bld) 65.7 %NormalAdena Pike Medical Center on above:Order Comment: Specimen Type: BLOOD SPECIMEN Ordering Facility: [facility] Address: [address] [place], [place] [address]Performed By: #### SERIMM #### [facility] CLIA [id number] [address] [place] [address] [place] AMERICANucleated RBC (Bld) [#/Vol] 10*3/uLNormal<0.01[facility] on above:Order Comment: Specimen Type: BLOOD SPECIMEN Ordering Facility: [facility] Address: [address] [place], [place] [address]Performed By: #### SERIMM #### [facility] CLIA [id number] [address] [place] [address] [place] AMERICANucleated RBC/100 WBC (Bld) [Ratio]0.0 /100 WBCNormalCCleveland Clinic Lutheran Hospital on above:Order Comment: Specimen Type: BLOOD SPECIMEN Ordering Facility: [facility] Address: [address] [place], [place] [address]Performed By: #### SERIMM #### [facility] CLIA [id number] [address] [place] [address] [place] AMERICAOvalocytes LM Ql (Bld)Few NormalAdena Pike Medical Center on above:Order Comment: Specimen Type: BLOOD SPECIMEN Ordering Facility: [facility] Address: [address] [place], [place] [address]Performed By: #### SERIMM #### [facility] CLIA [id number] [address] [place] [address] [place] AMERICAPlatelet mean volume (Bld) [Entitic vol]10.1 fLNormal9.0-12.7CC[facility] on above: Order Comment: Specimen Type: BLOOD SPECIMEN Ordering Facility: [facility] Address: [address] [place], [place] [address]Performed By: #### SERIMM #### [facility] CLIA [id number] [address] [place] [address] [place] AMERICAPlatelets (Bld) [#/Vol]149 10*3/kVSvw232-570WqgyepgbdAdena Pike Medical Center on above:Order Comment: Specimen Type: BLOOD SPECIMEN Ordering Facility: [facility] Address: [address] [place], [place] [address]Result Comment: No clot detected.Results checked and verified.Performed By: #### SERIMM #### [facility] CLIA [id number] [address] [place] [address] [place] AMERICAPlatelets Estimate (Bld) [#/Vol]DecreasedNormalCCleveland Clinic Lutheran Hospital on above:Order Comment: Specimen Type: BLOOD SPECIMEN Ordering Facility: [facility] Address: [address] [place], [place] [address]Performed By: #### SERIMM #### [facility] CLIA [id number] [address] [place] [address] [place] AMERICAPolychromasia LM Ql (Bld) SlightNormalCCleveland Clinic Lutheran Hospital on above:Order Comment: Specimen Type: BLOOD SPECIMEN Ordering Facility: [facility] Address: [address] [place], [place] [address]Performed By: #### SERIMM #### [facility] CLIA [id number] [address] [place] [address] [place] AMERICARBC (Bld) [#/Vol]3.60 10*6/uLLow4.20-6.00[facility] on above:Order Comment: Specimen Type: BLOOD SPECIMEN Ordering Facility: [facility] Address: [address] [place], [place] [address]Performed By: #### SERIMM #### [facility] CLIA [id number] [address] [place] [address] FRAGMENTSFewAbnormalAniyae SeenAdena Pike Medical Center on above:Order Comment: Specimen Type: BLOOD SPECIMEN Ordering Facility: [facility] Address: [address] [place], [place] [address]Performed By: #### SERIMM #### [facility] CLIA [id number] [address] [place], [place] [address]RED CELL MORPHReviewed: see results of individual [facility] on above:Order Comment: Specimen Type: BLOOD SPECIMEN Ordering Facility: [facility] Address: [address] [place], [place] [address]Performed By: #### SERIMM #### [facility] CLIA [id number] [address] [place], [place] [address]WBC (Bld) [#/Vol]5.17 10*3/uLNormal3.70-11.00[facility] on above:Order Comment: Specimen Type: BLOOD SPECIMEN Ordering Facility: [facility] Address: [address] [place], [place] [address]Performed By: #### SERIMM #### [facility] [place] [id number] [address] [place] [address] OF AMERICACNOVSPon 55-94-3761SAPESV Visit (SP) Office (HEMASA) KIMMY MCARTHUR ([id number]) 1945 M Date Time Provider Department 12/25/24 2:30 PM ZOEY MRAX During your visit today, we recorded the following information about you: Temperature Pulse Respiration Blood pressure 97.6 degrees 53/minute 18/minute 134/64 Weight Height 77.6 kg 1.829 m Zoey Marx PA-C 01/14/2025 3:22 PM Addendum [facility] ANEMIA CONSULTATION NOTE Hematologic Oncology and Blood [...] amiodarone for his a-fib. He presented to [facility] [place] [facility] on 11/27/24 with shortness of breath with exertion and feeling tired all of the time. Labs found he had a hemoglobin of 7.1. Iron studies showed a % saturation of 4.1, TIBC 339, Iron 14.0 and transferrin of 279. No [...] panel. He received 2 iron infusions at [facility] on 12/10/24 and 12/17/24. He felt better initially after the iron infusions. He isn't getting dizzy as often, but he is still weak. Breathing is also improved. No black stools or melena. Darker stools since starting iron pills. He is having constipation issues as well. 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 Colonoscopy 04/11/24 [facility] Rectosigmoid junction polypectomy: Tubular adenoma He denies [...] the thoracic and lumbar spine done at [facility] last week (Results are not available to [...] by mouth two times a day with (more content not included)...NormalRegency Hospital Cleveland Eastprehensive metabolic 2000 panelon 89-86-7666Hoqzhac [Mass/Vol]4.1 g/dLNormal3.9-4.9 [facility] on above:Order Comment: Specimen Type: BLOOD SPECIMEN Ordering Facility: [facility] Address: [address] [place], [place] [address]Performed By: #### KLFRS #### [facility] CLIA [id number] [address] [place] [address] [place] AMERICAALP [Catalytic activity/Vol] 82 U/YShxphp48-040ArfdosjqeAdena Pike Medical Center on above:Order Comment: Specimen Type: BLOOD SPECIMEN Ordering Facility: [facility] Address: [address] [place], [place] [address]Performed By: #### KLFRS #### [facility] CLIA [id number] [address] [place] [address] [place] AMERICAALT [Catalytic activity/Vol] 24 U/GOsnmbg80-08DegjgrnvrAdena Pike Medical Center on above:Order Comment: Specimen Type: BLOOD SPECIMEN Ordering Facility: [facility] Address: [address] [place], [place] [address]Performed By: #### KLFRS #### [facility] CLIA [id number] [address] [place], [place] [address] [place] AMERICAAnion gap [Moles/Vol]9 mmol/LNormal8-15[facility] on above:Order Comment: Specimen Type: BLOOD SPECIMEN Ordering Facility: [facility] Address: [address] [place], [place] [address]Performed By: #### KLFRS #### [facility] CLIA [id number] [address] [place], [place] [address] [place] AMERICAAST [Catalytic activity/Vol] 16 U/RHvsvjx64-15MncmwhfafAdena Pike Medical Center on above:Order Comment: Specimen Type: BLOOD SPECIMEN Ordering Facility: [facility] Address: [address] [place], [place] [address]Performed By: #### KLFRS #### [facility] CLIA [id number] [address] [place], [place] [address] [place] AMERICABilirubin [Mass/Vol]0.9 mg/dLNormal0.2-1.3CC[facility] on above:Order Comment: Specimen Type: BLOOD SPECIMEN Ordering Facility: [facility] Address: [address] [place], [place] [address]Performed By: #### KLFRS #### [facility] CLIA [id number] [address] [place] [address] [place] AMERICACalcium [Mass/Vol]8.3 mg/dL Low8.5-10.2CC[facility] on above:Order Comment: Specimen Type: BLOOD SPECIMEN Ordering Facility: [facility] Address: [address] [place], [place] [address]Performed By: #### KLFRS #### [facility] IA [id number] [address] [place], [place] [address] [place] AMERICAChloride [Moles/Vol]107 mmol/YFzouao33-370LcnnknrqaAdena Pike Medical Center on above:Order Comment: Specimen Type: BLOOD SPECIMEN Ordering Facility: [facility] Address: [address] [place], [place] [address]Performed By: #### KLFRS #### [facility] CLIA [id number] [address] [place], [place] [address] [place] AMERICACO2 [Moles/Vol]25 mmol/L Jtbuqq20-49BainmvxieAdena Pike Medical Center on above:Order Comment: Specimen Type: BLOOD SPECIMEN Ordering Facility: [facility] Address: [address] [place], [place] [address]Performed By: #### KLFRS #### [facility] CLIA [id number] [address] [place] [address] [place] [facility] HOSPITALCreatinine [Mass/Vol]0.86 mg/dLNormal0.73-1.22[facility] on above:Order Comment: Specimen Type: BLOOD SPECIMEN Ordering Facility: [facility] Address: [address] [place], [place] [address]Performed By: #### KLFRS #### [facility] CLIA [id number] [address] [place] [address] [place] AMERICAeGFRcr SerPlBld CKD-EPI 2020 89 mL/min/1.73m???Normal>=60[facility] on above:Order Comment: Specimen Type: BLOOD SPECIMEN Ordering Facility: [facility] Address: [address] [place], [place] [address]Result Comment: Estimated Glomerular Filtration Rate (eGFR) is calculated using the 2020 CKD-EPI cre atinine equation. This equation utilizes serum creatinine, sex, and age as parameters. The creatinine assay has traceable calibration to isotope dilution- mass spectrometry. Refer to KDIGO guidelines for clinical interpretation. In patients with unstable renal function, e.g. those with acute kidney injury, the eGFR may not accurately reflect actual GFR.Performed By: #### KLFRS #### [facility] CLIA [id number] [address] [place] [address] [place] AMERICAGlucose [Mass/Vol]92 mg/dL Nkvatn07-09NcpktvffqAdena Pike Medical Center on above:Order Comment: Specimen Type: BLOOD SPECIMEN Ordering Facility: [facility] Address: [address] [place], [place] [address]Result Comment: The [place] Diabetes Association (ADA) provides guidance for cutoff [...] Standards of Medical Care in Diabetes 2016, [employer] Diabetes Association. Diabetes Care. 2016.39(Suppl 1).Performed By: #### KLFRS #### [facility] CLIA [id number] [address] [place] [address] [place] AMERICAPotassium [Moles/Vol]4.5 mmol/LNormal3.7-5.1CC[facility] on above:Order Comment: Specimen Type: BLOOD SPECIMEN Ordering Facility: [facility] Address: [address] [place], [place] [address]Performed By: #### KLFRS #### [facility] IA [id number] [address] [place] [address] [place] AMERICAProtein [Mass/Vol]6.2 g/dL Low6.3-8.0[facility] on above:Order Comment: Specimen Type: BLOOD SPECIMEN Ordering Facility: [facility] Address: [address] [place], [place] [address]Performed By: #### KLFRS #### [facility] IA [id number] [address] [place] [address] [place] AMERICASodium [Moles/Vol]141 mmol/L Aoirll852-975MhcqwvdgsAdena Pike Medical Center on above:Order Comment: Specimen Type: BLOOD SPECIMEN Ordering Facility: [facility] Address: [address] [place], [place] [address]Performed By: #### KLFRS #### [facility] CLIA [id number] [address] [place] [address] [place] AMERICAUrea nitrogen [Mass/Vol]20 mg/dLNormal9-24[facility] on above:Order Comment: Specimen Type: BLOOD SPECIMEN Ordering Facility: [facility] Address: [address] [place], [place] [address]Performed By: #### KLFRS #### [facility] CLIA [id number] [address] [place] [address] [place] AMERICAEPO SerPl-aCncon 12-25-2024 Erythropoietin (EPO) Qn74.5 mIU/mLHigh2.6-18.5[facility] on above:Order Comment: Specimen Type: BLOOD SPECIMEN Ordering Facility: [facility] Address: [address] [place], [place] [address]Performed By: #### [id number] #### [facility] CLIA [id number] [address] [place] [address] [place] AMERICAEosinophils/100 WBC Auto (Bld)Ordered By: Marisol Boyce on 00-93-3135Uytjgiqughx/100 WBC (Bld)2.9 % [facility] HospitalErythrocyte distribution width Auto (RBC) [Ratio]Ordered By: Marisol Boyce on 05-29-8351Ecclfrszyif distribution width (RBC) [Ratio]22.5 %High11.5-15.0[facility] HospitalFerritin SerPl-mCncon 71-09-4017Knchzroo [Mass/Vol]420.0 ng/dRHyjint80.3-565.7[facility] on above:Order Comment: Specimen Type: BLOOD SPECIMEN Ordering Facility: [facility] Address: [address] [place], [place] [address]Performed By: #### KLFRS #### [facility] CLIA [id number] [address] [place] [address] [place] AMERICAFolate SerPl-mCncon 17-65-0364Fyvidn [Mass/Vol]ng/mLNormal>4.7[facility] on above:Order Comment: Specimen Type: BLOOD SPECIMEN Ordering Facility: [facility] Address: [address] [place], [place] [address]Result Comment: A result of > 20 ng/mL is not necessarily indicative of a pathologic or treatable condition: it reflects a limitation of the test methodology. Assay reference range: 4.8 to 24.2 ng/mL. Suitable for detection of folate deficiency. Reference: Folate III (Folate III) [package insert V 1.0 Egyptian]. [employer], [place], [place]: January 2015.Performed By: #### SERIMM #### [facility] CLIA [id number] [address] [place] [address] [place] AMERICAGlomerular filtration rate [Volume Rate/Area] in Serum, Plasma or Blood by CreatinineOrdered By: Marisol Boyce on 72-71-2879Ndwnroprxx filtration rate [Volume Rate/Area] in Serum, Plasma or Blood by Tdrwldbcrp04 mL/min/1.73m???>=60[facility] HospitalComment on above:Estimated Glomerular Filtration Rate (eGFR) is calculated using the 2020 CKD-EPI creatinine equation. This equation utilizes serum creatinine, sex, and age as parameters. The creatinine assay has traceable calibration to isotope dilution-mass spectrometry. Refer to KDIGO guidelines for clinical interpretation. In patients with unstable renal function, e.g. those with acute kidney injury, the eGFRmay not accurately reflect actual GFR.Glucose [Mass/volume] in Serum or PlasmaOrdered By: Marisol Boyce on 15-11-8476Ynuopyv [Mass/Vol]92 mg/oQ00-07CrrzfpaabMercy Health West HospitalComment on above:The [place] Diabetes Association (ADA) provides guidance for cutoff values for fasting glucose andrandom glucose. The ADA defines fasting as no [...] hyperglycemia or hyperglycemic crisis, random plasma glucose resultsgreater than or equal to 200 mg/dL meet the criteria for diagnosis of diabetes.Reference: Standardsof Medical Care in Diabetes 2016, [place] Diabetes Association. Diabetes Care. 2016.39(Suppl 1).Haptoglob SerPl-mCncon 16-10-6580Acjwxjnirda [Mass/Vol]223 mg/jTZwvzyd41-243HkkzehqdhAdena [facility] Center on above:Order Comment: Specimen Type: BLOOD SPECIMEN Ordering Facility: [facility] Address: [address] [place], [place] [address]Performed By: #### KLFRS #### [facility] CLIA [id number] [address] [place] [address] [place] OF AMERICAHaptoglobin [Mass/volume] in Serum or PlasmaOrdered By: ZOEY MARX on 80-23-6890Ilapooxomua [Mass/Vol]223 mg/yN94-443HqnpnmcygMercy Health West HospitalHematocrit Auto (Bld) [Volume fraction]Ordered By: Marisol Boyce on 23-15-2331Xoiokltsqf (Bld) [Volume fraction]34.5 %Low39.0-51.0Mer[facility] Health West HospitalHemoglobin [Mass/volume] in BloodOrdered By: Marisol Boyce on 87-99-2389Shuufjnpyv (Bld) [Mass/Vol]10.3 g/dLLow13.0-17.0Mer[facility] Health West HospitalIMMUNOFIXATION SCREEN, SERUMon 40-35-8627QWIERGMVYFTCTS (MPA)Poorly definded region of restricted mobility in IgG and lambda lanes. Pattern is less well definedor fainter than typically seen in monoclonal gammopathy. This could represent either an atypical presentation of polyclonal immunoglobulins or the presence of a low level IgG lambda monoclonal gammopathy. If clinically indicated, urine monoclonal protein analysis and serum free light chain measurements are recommended to evaluate further for monoclonal gammopathy. Clinical correlation is necessary.NormalAdena P[facility] Medical Center on above:Order Comment: Specimen Type: BLOOD SPECIMEN Ordering Facility: [facility] Address: [address] [place], [place] [address]Performed By: #### IFESC #### [facility] CLIA [id number] [address] [place] [address] [place] OF AMERICAMPA RESULTA poorly defined region of restricted mobility is present that may represent an M protein. AbnormalNo M protein is identified.[facility] on above: Order Comment: Specimen Type: BLOOD SPECIMEN Ordering Facility: [facility] Address: [address] [place], [place] [address]Performed By: #### IFESC #### [facility] CLIA [id number] [address] [place] [address] [place] OF AMERICASTAFF REVIEW ([facility])Reviewed by Shashank ReeseCleveland Clinic Lutheran Hospital on above:Order Comment: Specimen Type: BLOOD SPECIMEN Ordering Facility: [facility] Address: [address] [place], [place] [address]Performed By: #### IFESC #### [facility] CLIA [id number] [address] [place], [place] [id number] [place] OF AMERICAIMMUNOGLOBULINS,IGG,IGA,IGM on 86-26-2894GmV [Mass/Vol]148 mg/iNLxtkwo89-986ArwiwwbumKing'S Daughters Medical Center [place] Comment on above:Order Comment: Specimen Type: BLOOD SPECIMEN Ordering Facility: [facility] Address: [address] [place], [place] [address]Performed By: #### SERIMM #### [facility] CLIA [id number] [address] [place] [address] [place] OF AMERICAIgG [Mass/Vol]746 mg/dL Iuisle040-3123OabfwgbxlAdena Pike Medical Center on above:Order Comment: Specimen Type: BLOOD SPECIMEN Ordering Facility: [facility] Address: [address] [place], [place] [address]Performed By: #### SERIMM #### [facility] CLIA [id number] [address] [place] [address] [place] AMERICAIgM [Mass/Vol]68 mg/dLNormal 40-230[facility] on above:Order Comment: Specimen Type: BLOOD SPECIMEN Ordering Facility: [facility] Address: [address] [place], [place] [address]Performed By: #### SERIMM #### [facility] CLIA [id number] [address] [place] [id number] [place] OF AMERICAIgA [Mass/volume] in Serum or PlasmaOrdered By: ZOEY MARX on 50-35-2526ZmN [Mass/Vol]148 mg/vK86-030 [facility] West HospitalIgG [Mass/volume] in Serum or PlasmaOrdered By: ZOEY MARX on 07-41-4384VoG [Mass/Vol]746 mg/tY823-9733LvgvqgeonMercy Health West HospitalIgM [Mass/volume] in Serum or PlasmaOrdered By: ZOEY AMRX on 15-81-1188NcT [Mass/Vol]68 mg/yN40-596EecddwnukMercy Health West Hospital Immunoglobulin light chains.kappa.free [Mass/volume] in SerumOrdered By: ZOEY SCHWARTZER on 42-72-2651Wmcvifzvsezpnb light chains.kappa.free (S) [Mass/Vol]23.3 mg/LHigh3.3-19.4FTriHealth McCullough-Hyde Memorial HospitalComment on above:Rarely, increased serum free light chains levels may not be detected or accurately quantified due to prozone phenomenon or in high viscosity samples using this immunoturbidimetric assay. Correlation with other laboratory results and clinical findings is recommended. The [place] Free Light Chain was performed using the Binding Site Optilite immunoturbidimetric method. Result obtained with different assay methods or kits cannot be used interchangeably.Immunoglobulin light chains.kappa.free/Immunoglobulin light chains.lambda.free [MassOrdered By: ZOEY SCHWARTZER on 62-89-8373Swixniepjvepgx light chains.kappa.free/Immunoglobulin light chains.lambda.free (S) [Mass ratio]1.060.26-1.65Mercy Health West HospitalImmunoglobulin light chains.lambda.free [Mass/volume] in Serum or PlasmaOrdered By: ZOEY SCHWARTZER on 36-92-9869Ngqhjwjvpmbnik light chains.lambda.free [Mass/Vol]22.0 mg/L5.7-26.3FTriHealth McCullough-Hyde Memorial Hospital Comment on above:Rarely, increased serum free light chains levels may not be detected or accurately quantified due to prozone phenomenon or in high viscosity samples using this immunoturbidimetric assay. Correlation with other laboratory results and clinical findings is recommended. The Lambda Free Light Chain was p erformed using the Binding Site Optilite immunoturbidimetric method. Result obtained with differentassay methods or kits cannot be used interchangeably.Iron and Iron binding capacity panelon 74-17-9885Dklt [Mass/Vol]61 ug/wSIznzed33-653 [facility] on above:Order Comment: Specimen Type: BLOOD SPECIMEN Ordering Facility: [facility] Address: [address] [place], [place] [address]Performed By: #### SERIMM #### [facility] CLIA [id number] [address] [place] [address] [place] AMERICAIron binding capacity [Mass/Vol]282 ug/oGVjwmoy956-375NivwmwfmjAdena Pike Medical Center on above:Order Comment: Specimen Type: BLOOD SPECIMEN Ordering Facility: [facility] Address: [address] [place], [place] [address]Performed By: #### SERIMM #### [facility] [place] [id number] [address] [place] [address] [place] AMERICAIron/TIBC [Molar ratio]21.6 %Xzunwm93.0-57.0[facility] on above:Order Comment: Specimen Type: BLOOD SPECIMEN Ordering Facility: [facility] Address: [address] [place], [place] [address]Performed By: #### SERIMM #### [facility] CLIA [id number] [address] [place] [address] [place] AMERICAIron binding capacity [Mass/volume] in Serum or PlasmaOrdered By: ZOEY MARX on 68-87-2245Gqup binding capacity [Mass/Vol]282 ug/wR871-968WvzreveagMercy Health West HospitalIron saturation [Mass Fraction] in Serum or PlasmaOrdered By: ZOEY MARX on 09-85-7565Wmex saturation [Mass fraction]21.6 %15.0-57.0Mer[facility] Health West HospitalKAPPA/OILVIER,FREE,SERon 29-29-5690Efamphltjpztlm light chains.kappa.free (S) [Mass/Vol]23.3 mg/LHigh3.3-19.4CPike Community Hospital Comment on above:Order Comment: Specimen Type: BLOOD SPECIMEN Ordering Facility: [facility] Address: [address] [place], [place] [address]Result Comment: Rarely, increased serum free light chains levels may not be detected or accurately quantified due to prozone phenomenon or in high viscosity samples using this immunoturbidimetric assay. Correlation with other laboratory results and clinical findings is recommended. The [place] Free Light Chain was performed using the Binding Site Optilite immunoturbidimetric method. Result obtained with different assay methods or kits cannot be used interchangeably.Performed By: #### KLFRS #### [facility] CLIA [id number] [address] [place] [address] [place] AMERICAImmunoglobulin light chains.kappa/Immunoglobulin light chains.lambda (S) [Mass ratio]1.06Normal 0.26-1.65[facility] OhioComment on above:Order Comment: Specimen Type: BLOOD SPECIMEN Ordering Facility: [facility] Address: [address] [place], [place] [address]Performed By: #### KLFRS #### [facility] CLIA [id number] [address] [place] [address] [place] AMERICAImmunoglobulin light chains.lambda.free [Mass/Vol]22.0 mg/LNormal5.7-26.3CPike Community Hospital Comment on above:Order Comment: Specimen Type: BLOOD SPECIMEN Ordering Facility: [facility] Address: [address] [place], [place] [address]Result Comment: Rarely, increased serum free light chains levels may not be detected or accurately quantified due to prozone phenomenon or in high viscosity samples using this immunoturbidimetric assay. Correlation with other laboratory results and clinical findings is recommended. The Lambda Free Light Chain was performed using the Binding Site Optilite immunoturbidimetric method. Result obtained with different assay methods or kits cannot be used interchangeably.Performed By: #### KLFRS #### [facility] CLIA [id number] [address] [place] [address] [place] [facility] CENTERLD SerPl-cCncon 12-25-2024 LDH [Catalytic activity/Vol]168 U/MJhwdxy698-830ZgwlfmjdrKing'S Daughters Medical Center [place] Comment on above:Order Comment: Specimen Type: BLOOD SPECIMEN Ordering Facility: [facility] Address: [address] [place], [place] [address]Performed By: #### KLFRS #### [facility] CLIA [id number] [address] [place] [address] [place] AMERICALaboratory - Chemistry and Chemistry - challengeOrdered By: Marisol Boyce on 91-78-3308Upwgivr [Mass/Vol] 4.1 g/dL3.9-4.9Mer[facility] HospitalALP [Catalytic activity/Vol]82 U/R03-139IjkqkeioaMercy Health West HospitalALT [Catalytic activity/Vol]24 U/L 10-54Mer[facility] HospitalAST [Catalytic activity/Vol]16 U/L14-40 [facility] HospitalBilirubin [Mass/Vol]0.9 mg/dL0.2-1.3FTriHealth McCullough-Hyde Memorial HospitalCalcium [Mass/Vol]8.3 mg/dLLow8.5-10.2FTriHealth McCullough-Hyde Memorial HospitalChloride [Moles/Vol]107 mmol/M32-957LnibrzgemMercy Health West HospitalCO2 [Moles/Vol]25 mmol/X66-60LbzeflhhiMercy Health West HospitalCreatinine [Mass/Vol]0.86 mg/dL0.73-1.22[facility] HospitalPotassium [Moles/Vol]4.5 mmol/L3.7-5.1FThe Bellevue Hospitalodium [Moles/Vol] 141 mmol/E969-324AkuqnczqmMercy Health West HospitalUrea nitrogen [Mass/Vol]20 mg/dL9-24Mer[facility] HospitalLaboratory - Chemistry and Chemistry - challengeOrdered By: ZOEY MARX on 48-65-8656Ixeniuhim (Vitamin B12) [Mass/Vol]455 pg/hY176-0586TvxxvcuvxMercy Health West HospitalFerritin [Mass/Vol] 420.0 ng/mL30.3-565.7FTriHealth McCullough-Hyde Memorial HospitalIron [Mass/Vol]61 ug/dL 41-186Mer[facility] Health West HospitalLDH [Catalytic activity/Vol]168 U/L 135-225Mer[facility] West HospitalProtein [Mass/Vol]0.00 g/dL<=0.00 [facility] HospitalTSH Qn4.760 m[IU]/LHigh0.270-4.200Mer[facility] HospitalLaboratory - Hematology and Cell countsOrdered By: Marisol Boyce on 15-11-1049Yqmnxdpfzbh (Bld) [#/Vol]0.15 10*3/uL<0.46Mer[facility] West HospitalImmature granulocytes/100 WBC (Bld)0.4 %[facility] HospitalLeukocytes [#/volume] corrected for nucleated erythrocytes in Blood by Automated counOrdered By: Marisol Boyce on 12-25-2024 WBC corrected for nucl RBC Auto (Bld) [#/Vol]5.17 k/uL3.70-11.00Mer[facility] West HospitalLymphocytes Auto (Bld) [#/Vol]Ordered By: Marisol Boyce on 38-38-1240Xzvdvjgpcbj (Bld) [#/Vol]1.11 10*3/uL1.00-4.00Mer[facility] HospitalLymphocytes/100 WBC Auto (Bld)Ordered By: Marisol Boyce on 36-18-9730Zbxpwygfctk/100 WBC (Bld)21.5 %[facility] [place] Auto (RBC) [Entitic mass]Ordered By: Marisol Boyce on 01-91-3741MZJ (RBC) [Entitic mass]28.6 pg26.0-34.0Mer[facility] HospitalMCHC Auto (RBC) [Mass/Vol]Ordered By: Marisol Boyce on 61-90-8552WUYP (RBC) [Mass/Vol]29.9 g/dL Low30.5-36.0Mer[facility] HospitalMCV Auto (RBC) [Entitic vol]Ordered By: Marisol Boyce on 41-09-9384VCJ (RBC) [Entitic vol]95.8 fL80.0-100.0[facility] HospitalMethylmalonate SerPl-sCncon 17-35-0772Xnlvinqbwdscct [Moles/Vol]0.10 umol/LNormal<=0.40[facility] OhioComp[facility] on above: Order Comment: Specimen Type: BLOOD SPECIMEN [facility] Facility: [facility] Address: [address] [place], [place] [address]Result Comment: This test was developed, and its performance characteristics determined by the [facility] Department of Pathology and Laboratory Medicine. It has not been cleared or approved bythe FDA. The [facility] Department of Pathology and Laboratory Medicine is regulated under CLIA as qualified to perform high- complexity testing. This test is used for clinical purposes. It should not be regarded as investigational or for research.Performed By: #### SERIMM #### [facility] CLIA [id number] [address] [place] [address] [place] AMERICAMonocytes Auto (Bld) [#/Vol] Ordered By: Marisol Boyce on 91-93-7914Jwntwlclw (Bld) [#/Vol]0.45 10*3/uL<0.87 [facility] HospitalMonocytes/100 WBC Auto (Bld)Ordered By: Marisol Boyce on 58-55-7504Zqawbcnnc/100 WBC (Bld)8.7 %[facility] HospitalNeutrophils Auto (Bld) [#/Vol]Ordered By: Marisol Boyce on 12-25-2024 Neutrophils (Bld) [#/Vol]3.40 10*3/uL1.45-7.50[facility] Neutrophils/100 WBC Auto (Bld)Ordered By: Marisol Boyce on 12-25-2024 Neutrophils/100 WBC (Bld)65.7 %[facility] HospitalNo Panel InformationOrdered By: ZOEY MARX on 06-38-3587Ajlcwh>20.0 ng/mL>4.7FTriHealth McCullough-Hyde Memorial HospitalComment on above:A result of > 20 ng/mL is not necessarily indicative of a pathologic or treatable condition: it reflects a limitation of the test methodology.Assay reference range: 4.8 to 24.2 ng/mL. Suitable fordetection of folate deficiency.Reference:Folate III (Folate III) [package insert V 1.0 Egyptian]. [facility], [place], [place]: January 2015.Immunofixation InterpretationMercy Health West HospitalLeuk/Lymph Sign Pathologist (Misc)Reviewed by Miley Valadez MDMercy Health West HospitalMiscellaneous Test 6See commentMercy Health West HospitalComment on above:Not Applicable.Miscellaneous Test CommentReviewed by Miley Valadez MD [facility] HospitalProtein Electrophoresis InterpretMercy Health West HospitalProtein Electrophoresis NoteAbnormalNo definitive M protein is identified on protein electrophoresis.Martins Ferry Hospitalerum ImmunofixationAbnormalNo M protein is identified.[facility] HospitalNo Panel InformationOrdered By: Marisol Boyce on 12-25-2024 Immature Granulocyte # (Auto)<0.03 k/uL<0.10[facility] Normal RBC MorphologyReviewed: see results of individual morphologiesMercy Health West HospitalRBC FragmentsFewAbnormalNone SeenMercy Health West HospitalNucleated RBC Auto (Bld) [#/Vol]Ordered By: Marisol Boyce on 85-30-8701Omvioacjf RBC (Bld) [#/Vol]10*3/uL<0.01[facility] HospitalNucleated erythrocytes [Presence] in Blood by Automated countOrdered By: Marisol Boyce on 88-28-4093Sbowwkxxx RBC Auto Ql (Bld)0.0 /100{WBC}[facility] HospitalOvalocyte detectionOrdered By: Marisol Boyce on 97-59-7513Oxnxsijsfj LM Ql (Bld)FewMercy Health West HospitalPROTEIN ELECTROPHORESIS SERUM (P)on 72-70-6384Yejpjva [Mass/Vol]3.69 g/dLNormal3.43-5.41 [facility] OhioComp[facility] on above:Order Comment: Specimen Type: BLOOD SPECIMEN Ordering Facility: [facility] Address: [address] [place], [place] [address]Performed By: #### KLFRS #### [facility] CLIA [id number] [address] [place] [address] [place] AMERICAAlpha 1 globulin Elph [Mass/Vol]0.33 g/dLNormal0.18-0.43[facility] on above: Order Comment: Specimen Type: BLOOD SPECIMEN Ordering Facility: [facility] Address: [address] [place], [place] [address]Performed By: #### KLFRS #### [facility] IA [id number] [address] [place] [address] [place] AMERICAAlpha 2 globulin Elph [Mass/Vol]0.71 g/dLNormal0.42-0.98[facility] on above: Order Comment: Specimen Type: BLOOD SPECIMEN Ordering Facility: [facility] Address: [address] [place], [place] [address]Performed By: #### KLFRS #### [facility] IA [id number] [address] [place] [address] [place] AMERICABeta globulin Elph [Mass/Vol]0.64 g/dLNormal0.61-1.17[facility] on above: Order Comment: Specimen Type: BLOOD SPECIMEN Ordering Facility: [facility] Address: [address] [place], [place] [address]Performed By: #### KLFRS #### [facility] IA [id number] [address] [place] [address] [place] AMERICAGamma globulin Elph [Mass/Vol]0.63 g/dLNormal0.53-1.51[facility] on above: Order Comment: Specimen Type: BLOOD SPECIMEN Ordering Facility: [facility] Address: [address] [place], [place] [address]Performed By: #### KLFRS #### [facility] [place] [id number] [address] [place] [address] [place] AMERICAINTERPRETATION COMMENT FOR PROTEIN ELECTROPHORESISThe atypical region is relatively poorly defined and may represent an unusual presentation of polyclonal immunoglobulins, but cannot rule out the presence of a low level M protein. If clinically indicated, monoclonal protein analysis and serum free light chain analysis are suggested to evaluate further for monoclonal gammopathy.NormalAdena Pike Medical Center on above:Order Comment: Specimen Type: BLOOD SPECIMEN [facility]ing Facility: [facility] Address: [address] [place], [place] [address]Performed By: #### KLFRS #### [facility] CLIA [id number] [address] [place] [address] [place] OF AMERICAM-PROTEIN LOCATIONNormal [facility] on above:Order Comment: Specimen Type: BLOOD SPECIMEN [facility]ing Facility: [facility] Address: [address] [place], [place] [address]Result Comment: Not Applicable. Performed By: #### KLFRS #### [facility] CLIA [id number] [address] [place] [address] [place] AMERICAProtein Fractions [Interp]An atypical region of restricted mobility is identified on protein electrophoresis.AbnormalNo definitive M protein is identified on protein electrophoresis.[facility] on above:Order Comment: Specimen Type: BLOOD SPECIMEN Ordering Facility: [facility] Address: [address] [place], [place] [address]Performed By: #### KLFRS #### [facility] CLIA [id number] [address] [place] [address] [place] AMERICAProtein.monoclonal Elph [Mass/Vol]0.00 g/dLNormal<=0.00[facility] on above:Order Comment: Specimen Type: BLOOD SPECIMEN Ordering Facility: [facility] Address: [address] [place], [place] [address]Performed By: #### KLFRS #### [facility] CLIA [id number] [address] [place], [place] [address] STATES OF AMERICASPE STAFF REVIEWReviewed by Berto ReeseSuburban Community Hospital & [facility] on above:Order Comment: Specimen Type: BLOOD SPECIMEN Ordering Facility: [facility] Address: [address] [place], [place] [address]Performed By: #### KLFRS #### [facility] CLIA [id number] [address] [place] [address] [place] AMERICAPlatelet adequacy [Presence] in Blood by Light microscopyOrdered By: Marisol Boyce on 70-65-5099Gopxhemxs LM Ql (Bld)St. Rita's HospitalPlatelet mean volume Auto (Bld) [Entitic vol]Ordered By: Marisol Boyce on 33-68-2736Jkbwpqll mean volume (Bld) [Entitic vol]10.1 fL9.0-12.7FTriHealth McCullough-Hyde Memorial HospitalPlatelets Auto (Bld) [#/Vol]Ordered By: Marisol Boyce on 26-13-1244Abhwmvwfp (Bld) [#/Vol] 149 10*3/hIMxx422-175WkohttrcsMercy Health West HospitalCompine rest christ[facility] mental [facility] services on above:No clot detected.Results checked and verified.Polychromasia [Presence] in Blood by Light microscopyOrdered By: Marisol Boyce on 71-11-8372Msdxlefahmrbd LM Ql (Bld) [facility] HospitalProt SerPl-mCncon 53-55-3407Bmgmrbw [Mass/Vol]6.0 g/dLLow6.3-8.0[facility] on above:Order Comment: Specimen Type: BLOOD SPECIMEN Ordering Facility: [facility] Address: [address] [place], [place] [address]Performed By: #### SERIMM #### [facility] [place] [id number] [address] [place] [address] [place] AMERICAProtein [Mass/volume] in Serum or PlasmaOrdered By: ZOEY MARX on 91-40-8017Apzxtjv [Mass/Vol]6.0 g/dL Low6.3-8.0[facility] HospitalRBC Auto (Bld) [#/Vol]Ordered By: Marisol Boyce on 76-29-8814YNR (Bld) [#/Vol]3.60 10*6/uLLow4.20-6.00[facility] HospitalRetics #on 90-64-3730Hutxznowwbzdr (Bld) [#/Vol]0.0002 10*3/uLHigh0.018-0.100[facility] on above:Order Comment: Specimen Type: BLOOD SPECIMEN [facility]ing Facility: [facility] Address: [address] [place], [place] [address]Performed By: #### SERIMM #### [facility] CLIA [id number] [address] [place] [address] [place] AMERICAReticulocytes (Bld) [#/Vol] on 76-68-6009Rwhmcntyoysap/100 RBC (Bld)5.7 %High0.4-2.0[facility] on above:Order Comment: Specimen Type: BLOOD SPECIMEN [facility]ing Facility: [facility] Address: [address] [place], [place] [address]Performed By: #### SERIMM #### [facility] CLIA [id number] [address] [place] [address] [place] AMERICAReticulocytes/100 RBC Auto (Bld)Ordered By: ZOEY MARX on 81-55-7718Rccudarcckaki/100 RBC (Bld)5.7 %High 0.4-2.0Martins Ferry Hospitalerum or plasma alpha 1 globulin measurement by electrophoresis (mass/volume)Ordered By: ZOEY MARX on 92-41-0076Lzraa 1 globulin Elph [Mass/Vol]0.33 g/dL0.18-0.43Martins Ferry Hospitalerum or plasma alpha 2 globulin measurement by electrophoresis (mass/volume)Ordered By: ZOEY MARX on 71-41-6306Ocnre 2 globulin Elph [Mass/Vol]0.71 g/dL0.42-0.98[facility] Ferry Hospitalerum or plasma anion gap determinationOrdered By: Marisol Boyce on 74-09-3597Exwhq gap [Moles/Vol]9 mmol/L8-15[facility] Ferry Hospitalerum or plasma beta globulin measurement by electrophoresis (mass/volume)Ordered By: ZEOY MARX on 17-03-2038Nmrh globulin Elph [Mass/Vol]0.64 g/dL0.61-1.17[facility] Ferry Hospitalerum or plasma erythropoietin (EPO) measurement (units/volume) Ordered By: ZOEY MARX on 03-31-3151Mvtneedosatice (EPO) Qn74.5 mIU/mLHigh 2.6-18.5FThe Bellevue Hospitalerum or plasma gamma globulin measurement by electrophoresis (mass/volume)Ordered By: ZOEY MARX on 56-21-6283Ynqpc globulin Elph [Mass/Vol]0.63 g/dL0.53-1.51Mart[facility] Ferry Hospitalerum or plasma methylmalonate measurement (moles/volume)Ordered By: ZOEY MARX on 95-14-0926Fqpxdajjlegale [Moles/Vol]0.10 umol/L<=0.40 [facility] HospitalComment on above:This test was developed, and its performance characteristics determined by the [facility] Department of Pathology and Laboratory Medicine. It has not been cleared or approved by the FDA. The [facility] Department of Pathology and Laboratory Medicine is regulated under CLIA as qualified to perform high-complexity testing. This test is used for clinical purposes. It should not be regarded as investigational or for research.TSH SerPl-aCncon [id number] Qn4.760 m[IU]/LHigh0.270-4.200 [facility] on above:Order Comment: Specimen Type: BLOOD SPECIMEN Ordering Facility: [facility] Address: [address] [place], [place] [address]Performed By: #### KLFRS #### [facility] CLIA [id number] [address] [place] [address] [place] OF AMERICAVit B12 SerPl-mCncon 43-08-8976Ixocrojya (Vitamin B12) [Mass/Vol]455 pg/iNGyijeu386-7688AtzqvroezCleveland Clinic Luther[facility] Hospital on above:Order Comment: Specimen Type: BLOOD SPECIMEN Ordering Facility: [facility] Address: [address] [place], [place] [id number] By: #### SERIMM #### [facility] CLIA [id number] [address] [place] [address] [place] AMERICAC-REACTIVE PROTEINon 12-05-2024 REACTIVE PROTEIN0.2 mg/dLNormal<=0.7[facility] Comment on above:Performed By: #### CRP #### [facility] ([facility]) [address] [place] [address] VIRCBC WITH AUTO DIFFERENTIALon 83-43-3636XBGCLJXPM ABSOLUTE COUNT (10*3/UL) BY AUTOMATED COUNT0.1 10*3/uLNormal0.0-0.2POhioHealth O'Bleness HospitalComment on above:Result Comment: This is an appended report. These results have been appended to a previously preliminary verified report.Performed By: #### CBCA #### [facility] ([facility]) [address] [place] [address] VIRBASOPHILS RELATIVE PERCENT BY AUTOMATED COUNT1.3 %Normal [facility] HospitalComment on above:Result Comment: This is an appended report. These results have been appended to a previously preliminary verified report.Performed By: #### CBCA #### [facility] ([facility]) [address] [place] [address] VIRCELLAVISION ANISOCYTOSIS IN BLOOD BY LIGHT MICROSCOPY2+ NormalProRolling Plains Memorial HospitalComment on above:Result Comment: This is an appended report. These results have been appended to a previously preliminary verified report.Performed By: #### CBCA #### [facility] ([facility]) [address] [place] [address] VIRCELLAVISION MEET CELLS IN BLOOD BY LIGHT MICROSCOPY1+Normal [facility] HospitalCompine rest christ[facility] mental [facility] services on above:Result Comment: This is an appended report. These results have been appended to a previously preliminary verified report.Performed By: #### CBCA #### [facility] ([facility]) [address] [place] [address] VIRCELLAVISION DIFFERENTIAL TYPEAUTOMATED DIFFERENTIALNormal [facility] HospitalComment on above:Result Comment: This is an appended report. These results have been appended to a previously preliminary verified report.Performed By: #### CBCA #### [facility] ([facility]) [address] [place] [address] VIRCELLAVISION ELLIPTOCYTES IN BLOOD BY LIGHT MICROSCOPY1+ NormalOhioHealth Dublin Methodist HospitalComment on above:Result Comment: This is an appended report. These results have been appended to a previously preliminary verified report.Performed By: #### CBCA #### [facility] ([facility]) [address] [place] [address] VIRCELLAVISION POLYCHROMASIA IN BLOOD BY LIGHT MICROSCOPY1+ [facility] HospitalComp[facility] on above:Result Comment: This is an appended report. These results have been appended to a previously preliminary verified report.Performed By: #### CBCA #### [facility] ([facility]) [address] [place] [address] VIRCELLAVISION RBC FRAGMENTS1+[facility] Comment on above:Result Comment: This is an appended report. These results have been appended to a previously preliminary verified report.Performed By: #### CBCA #### [facility] ([facility]) [address] [place] [address] VIREosinophils (Bld) [#/Vol]0.2 10*3/uLNormal0.0-0.4[facility] HospitalCompine rest [facility] services on above:Result Comment: This is an appended report. These results have been appended to a previously preliminary verified report. Performed By: #### CBCA #### [facility] ([facility]) [address] [place] [address] VIREOSINOPHILS RELATIVE PERCENT BY AUTOMATED COUNT3.4 %Normal [facility] HospitalComment on above:Result Comment: This is an appended report. These results have been appended to a previously preliminary verified report.Performed By: #### CBCA #### [facility] ([facility]) [address] [place] [address] VIRErythrocyte distribution width (RBC) [Ratio]22.4 %High 11.5-15[facility] HospitalComment on above:Performed By: #### CBCA #### [facility] ([facility]) [address] [place] [address] VIRHematocrit (Bld) [Volume fraction]26.4 %Jmp84-96TerGjgeyjOhioHealth Dublin Methodist HospitalComment on above:Performed By: #### CBCA #### [facility] ([facility]) [address] [place] [address] VIRHemoglobin (Bld) [Mass/Vol]8.4 g/dRFtn32-24BghGiesojOhioHealth Dublin Methodist HospitalComment on above:Performed By: #### CBCA #### [facility] ([facility]) [address] [place] [address] VIRLYMPHOCYTES ABSOLUTE COUNT (10*3/UL) BY AUTOMATED COUNT1.3 10*3/uLNormal1.0-3.5POhioHealth O'Bleness HospitalComment on above:Result Comment: This is an appended report. These results have been appended to a previously preliminary verified report.Performed By: #### CBCA #### [facility] ([facility]) [address] [place] [address] VIRLYMPHOCYTES RELATIVE PERCENT BY AUTOMATED COUNT22.3 %Normal [facility] HospitalComment on above:Result Comment: This is an appended report. These results have been appended to a previously preliminary verified report.Performed By: #### CBCA #### [facility] ([facility]) [address] [place] [address] VIRMCH (RBC) [Entitic mass]26.9 dtBvx79-53DycUktsloRolling Plains Memorial HospitalComment on above:Performed By: #### CBCA #### [facility] ([facility]) [address] [place] [address] VIRMCHC (RBC) [Mass/Vol]31.6 g/bXXfe07-69XjfNtjadjRolling Plains Memorial HospitalComment on above:Performed By: #### CBCA #### [facility] ([facility]) [address] [place] [address] VIRMCV (RBC) [Entitic vol]85 eVLtyhri38-647EhlQlvwqh [facility]remont HospitalComment on above:Performed By: #### CBCA #### [facility] ([facility]) [address] [place] [address] VIRMONOCYTES ABSOLUTE COUNT (10*3/UL) BY AUTOMATED COUNT0.4 10*3/uLNormal0.0-0.9ProRolling Plains Memorial HospitalComment on above:Result Comment: This is an appended report. These results have been appended to a previously preliminary verified report.Performed By: #### CBCA #### [facility] ([facility]) [address] [place] [address] VIRMONOCYTES RELATIVE PERCENT BY AUTOMATED COUNT7.3 %Normal [facility] HospitalCompine rest [facility] mental [facility] services on above:Result Comment: This is an appended report. These results have been appended to a previously preliminary verified report.Performed By: #### CBCA #### [facility] ([facility]) [address] [place] [address] VIRNEUTROPHILS ABSOLUTE COUNT BY AUTOMATED COUNT3.7 10*3/uL Normal1.5-6.6[facility] HospitalCompine rest christ[facility] mental health services on above:Result Comment: This is an appended report. These results have been appended to a previously preliminary verified report.Performed By: #### CBCA #### [facility] ([facility]) [address] [place] [address] VIRNEUTROPHILS RELATIVE PERCENT BY AUTOMATED COUNT65.7 %Normal [facility] HospitalCompine rest christ[facility] mental health services on above:Result Comment: This is an appended report. These results have been appended to a previously preliminary verified report.Performed By: #### CBCA #### [facility] ([facility]) [address] [place] [address] VIRPlatelet mean volume (Bld) [Entitic vol]8.4 fLNormal7-12 [facility] HospitalComment on above:Performed By: #### CBCA #### [facility] ([facility]) [address] [place] [address] VIRPlatelets (Bld) [#/Vol]177 10*3/eXWwcbmg953-970DziTmpdqz [facility] HospitalComment on above:Performed By: #### CBCA #### [facility] ([facility]) [address] [place] [address] VIRRBC COUNT3.11 X10E12/LLow4.1-5.7[facility] Comment on above:Performed By: #### CBCA #### [facility] ([facility]) [address] [place] [address] VIRWBC (Bld) [#/Vol]5.7 10*3/uLNormal4-11[facility] HospitalComment on above:Performed By: #### CBCA #### [facility] ([facility]) [address] [place] [address] VIRCOMPREHENSIVE METABOLIC PANELon 08-86-9044Qcufqxu [Mass/Vol] 3.5 g/dLNormal3.2-5.3POhioHealth O'Bleness HospitalComment on above:Performed By: #### CMP #### [facility] ([facility]) [address] [place] [address] VIRALP [Catalytic activity/Vol]67 U/XVrmimi44-718YzmJkrrpnRolling Plains Memorial HospitalComment on above:Performed By: #### CMP #### [facility] ([facility]) [address] [place] [address] VIRALT [Catalytic activity/Vol]22 U/LNormal<=40ProRolling Plains Memorial HospitalComment on above:Performed By: #### CMP #### [facility] ([facility]) [address] [place] [address] VIRAnion gap [Moles/Vol]12 mmol/LNormal5-15ProRolling Plains Memorial HospitalComment on above:Performed By: #### CMP #### [facility] ([facility]) [address] [place] [address] VIRAST [Catalytic activity/Vol]16 U/LNormal<=41ProRolling Plains Memorial HospitalComment on above:Performed By: #### CMP #### [facility] ([facility]) [address] [place] [address] VIRBilirubin [Mass/Vol]0.8 mg/dLNormal0.3-1.2POhioHealth O'Bleness HospitalComment on above:Performed By: #### CMP #### [facility] ([facility]) [address] [place] [address] VIRCalcium [Mass/Vol]8.2 mg/dLLow8.5-10.5POhioHealth O'Bleness HospitalComment on above:Performed By: #### CMP #### [facility] ([facility]) [address] [place] [address] VIRChloride [Moles/Vol]104 mmol/APmqmjp26-465CodDreuhrRolling Plains Memorial HospitalComment on above:Performed By: #### CMP #### [facility] ([facility]) [address] [place] [address] VIRCO2 [Moles/Vol]24 mmol/PQxnoqr06-79KucSanobeOhioHealth O'Bleness HospitalComment on above:Performed By: #### CMP #### [facility] ([facility]) [address] [place] [address] VIRCreatinine [Mass/Vol]1.13 mg/dLNormal0.60-1.30ProRolling Plains Memorial HospitalComment on above:Result Comment: METHOD TRACEABLE TO IDMS STANDARDPerformed By: #### CMP #### [facility] ([facility]) [address] [place] [address] VIRGFR/1.73 sq M.predicted among non-blacks MDRD (S/P/Bld) [Vol rate/Area]67 mL/min/{1.73_m2}Normal>=60ProRolling Plains Memorial HospitalComment on above:Result Comment: Reported eGFR is based on the CKD-EPI 2020 equation that does not use a race coefficient.Performed By: #### CMP #### [facility] ([facility]) [address] [place] [address] VIRGlucose [Mass/Vol]208 mg/rAIgtq66-18YoaJcbctlRolling Plains Memorial HospitalComment on above:Performed By: #### CMP #### [facility] ([facility]) [address] [place] [address] VIRPotassium [Moles/Vol]4.8 mmol/LNormal3.5-5.0ProRolling Plains Memorial HospitalComment on above:Performed By: #### CMP #### [facility] ([facility]) [address] [place] [address] VIRProtein [Mass/Vol]5.8 g/dLLow6.0-8.0[facility] HospitalComment on above:Performed By: #### CMP #### [facility] ([facility]) [address] [place] [address] VIRSodium [Moles/Vol]140 mmol/ZVqmtgi773-102CvrDwdrbj [facility] HospitalComment on above:Performed By: #### CMP #### [facility] ([facility]) [address] [place] [address] VIRUrea nitrogen [Mass/Vol]35 mg/dLHigh5-27ProRolling Plains Memorial HospitalComment on above:Performed By: #### CMP #### [facility] ([facility]) [address] [place] [address] VIRERYTHROCYTE SEDIMENTATION RATE (ESR)on 93-65-9418CKD, ERYTHROCYTE SEDIMENTATION RATE2 mm/hNormal0-20[facility] HospitalComment on above:Performed By: #### ESR #### [facility] ([facility]) [address] [place] [address] VIRFERRITINon 56-14-9217Msvbndxh [Mass/Vol]14 ng/qPKik02-444 ProMKaiser Foundation HospitalComment on above:Performed By: #### FERR #### [facility] ([facility]) [address] [place] [address] VIRIRONon 50-07-2655Yyxa [Mass/Vol]48 ug/zNQgp38-591NdnCrhqoaOhioHealth Dublin Methodist HospitalComment on above:Performed By: #### FE #### [facility] ([facility]) [address] [place] [address] VIRTRANSFERRINon 79-01-7348Ydqynirnmbt [Mass/Vol]275 mg/dL Ikmoud195-063DfbThnskwOhioHealth Dublin Methodist HospitalComment on above:Performed By: #### TRF #### [facility] ([facility]) [address] [place] [address] VIRBasophils Auto (Bld) [#/Vol]Ordered By: Lj Carbajal on 19-95-5142Uqyqjjrsz (Bld) [#/Vol]0.0 10 3/uL0.0-0.1FTriHealth McCullough-Hyde Memorial HospitalBasophils/100 WBC Auto (Bld)Ordered By: Lj Carbajal on 11-28-2024 Basophils/100 WBC (Bld)0.6 %0.2-2.0[facility] HospitalCholesterol in LDL Calc [Mass/Vol]Ordered By: Lj Carbajal on 59-11-3389Agzetgicxqu in LDL [Mass/Vol]25.0 mg/dLMercy Health West HospitalComment on above:<100 mg/dl LUSSNAF547-326 mg/dl NEAR OR ABOVE YAWPZMR837-585 mg/dl BORDERLINE ALKF144-592 mg/dl HIGH>190 mg/dl VERY HIGHCholesterol in VLDL Calc [Mass/Vol]Ordered By: Lj Carbajal on 53-35-2387Wvhdsgfncbm in VLDL [Mass/Vol]9.0 mg/dLMercy Health West HospitalEosinophils/100 WBC Auto (Bld)Ordered By: Lj Carbajal on 45-17-3322Jdsaduhgsrx/100 WBC (Bld)2.9 %0.9-7.0[facility] HospitalErythrocyte distribution width Auto (RBC) [Ratio]Ordered By: Lj Carbajal on 11-61-4849Wsurovoqrtc distribution width (RBC) [Ratio]17.5 %High11.0-15.0 [facility] HospitalGlobulin Calc (S) [Mass/Vol]Ordered By: Lj Carbajal on 74-78-8673Insbngvm (S) [Mass/Vol]3.1 g/dLMercy Health West HospitalGlomerular filtration rate (GFR) estimation in non- AmericanOrdered By: Lj Carbajal on 62-93-3884FLV/1.73 sq M.predicted among non-blacks MDRD (S/P/Bld) [Vol rate/Area]mL/min/{1.73_m2}>=60 mL/min/1.73m 2FTriHealth McCullough-Hyde Memorial HospitalHematocrit Auto (Bld) [Volume fraction]Ordered By: Lj Carbajal on 87-13-1258Qkjqchtxnz (Bld) [Volume fraction]26.0 %Low42.0-54.0[facility] HospitalHemoglobin [Mass/volume] in BloodOrdered By: Lj Carbajal on 66-10-7353Zwioxzkylj (Bld) [Mass/Vol]8.0 g/dLLow14.0-18.0[facility] HospitalLaboratory - Chemistry and Chemistry - challengeOrdered By: Lj Carbajal on 02-06-3528Gvpmrzr [Mass/Vol]3.1 g/dLLow3.4-5.0[facility] HospitalALP [Catalytic activity/Vol]105 U/D50-998HhrulwxwqMercy Health West HospitalALT [Catalytic activity/Vol]135 U/ZSycr23-43XaulrphdvMercy Health West HospitalAST [Catalytic activity/Vol]30 U/B19-45JmasmiudcMercy Health West HospitalBilirubin [Mass/Vol]1.7 mg/dLHigh0.2-1.0[facility] Calcium [Mass/Vol]8.6 mg/dL8.5-10.1FTriHealth McCullough-Hyde Memorial HospitalChloride [Moles/Vol]108 mmol/GGikd95-199XohrchfmgMercy Health West HospitalCholesterol [Mass/Vol]78 mg/dL<=200[facility] HospitalCholesterol in HDL [Mass/Vol]44 mg/yV46-27GntvltfdsMercy Health West HospitalComment on above:> or =60 mg/dl - LOW CARDIOVASCULAR RISK<40 mg/dl - HIGH CARDIOVASCULAR RISKCO2 [Moles/Vol]28.3 mmol/L21.0-32.0[facility] HospitalCobalamin (Vitamin B12) [Mass/Vol]611 pg/zT727-3459FvvigknlwMercy Health West Hospital Comment on above:Performed at: [facility] [id number] Director: Dar Young PhD, Phone: [phone] [Mass/Vol]0.91 mg/dL0.70-1.30[facility] HospitalGFR/1.73 sq M.predicted MDRD (S/P/Bld) [Vol rate/Area]mL/min/{1.73_m2}>=60 mL/min/1.73m 2 [facility] HospitalGlucose [Mass/Vol]175 mg/rQZgrt82-824PjnfdhhxrMercy Health West HospitalMagnesium [Mass/Vol]2.2 mg/dL1.8-2.4FTriHealth McCullough-Hy[facility] Memorial HospitalPotassium [Moles/Vol]4.5 mmol/L3.5-5.1FTriHealth McCullough-[facility] Memorial HospitalProtein [Mass/Vol]6.2 g/dLLow6.4-8.2FTriHealth [facility] Sodium [Moles/Vol]141 mmol/G515-664XesceveegMercy Health West HospitalTriglyceride [Mass/Vol]45 mg/dL<=150Mer[facility] HospitalUrea nitrogen [Mass/Vol]29.0 mg/dLHigh7.0-18.0[facility] HospitalUrea nitrogen/Creatinine [Mass ratio]31.9 mg/mgMercy Health West Hospital Laboratory - Hematology and Cell countsOrdered By: Lj Carbajal on 11-28-2024 Immature granulocytes/100 WBC (Bld)0.3 %0.0-0.5FTriHealth McCullough-[facility] Memorial Hospital Leukocytes [#/volume] corrected for nucleated erythrocytes in Blood by Automated counOrdered By: Lj Carbajal on 02-26-7797JKB corrected for nucl RBC Auto (Bld) [#/Vol]6.2 10 3/uL4.0-11.0[facility] HospitalLymphocytes Auto (Bld) [#/Vol]Ordered By: Lj Carbajal on 16-63-5448Gxphevoxcqc (Bld) [#/Vol]1.5 10 3/uL1.2-3.8[facility] HospitalLymphocytes/100 WBC Auto (Bld) Ordered By: Lj Carbajal on 27-54-7837Ofxvpkqgciv/100 WBC (Bld)23.8 %20.5-60.0 [facility] Auto (RBC) [Entitic mass]Ordered By: Lj Carbajal on 19-51-5474TXF (RBC) [Entitic mass]25.9 pg25.9-34.0[facility] HospitalMCHC Auto (RBC) [Mass/Vol]Ordered By: Lj Carbajal on 11-28-2024 MCHC (RBC) [Mass/Vol]30.8 g/dL29.9-35.2FTriHealth McCullough-Hyde Memorial HospitalMCV Auto (RBC) [Entitic vol]Ordered By: Lj Carbajal on 12-98-3239PDT (RBC) [Entitic vol]84.1 fL80.0-94.0[facility] HospitalMonocytes Auto (Bld) [#/Vol]Ordered By: Lj Carbajal on 94-16-5350Bchxabpql (Bld) [#/Vol]0.5 10 3/uL 0.3-0.8[facility] HospitalMonocytes/100 WBC Auto (Bld)Ordered By: Lj Carbajal on 80-89-9500Bkstgjvms/100 WBC (Bld)7.9 %1.7-12.0[facility] HospitalNeutrophils Auto (Bld) [#/Vol]Ordered By: Lj Carbajal on 81-41-4965Puijvmibmxk (Bld) [#/Vol]4.0 10 3/uL1.4-6.5FTriHealth McCullough-Hyde Memorial HospitalNeutrophils/100 WBC Auto (Bld)Ordered By: Lj Carbajal on 11-28-2024 Neutrophils/100 WBC (Bld)64.5 %43.0-75.0[facility] HospitalNo Panel InformationOrdered By: Lj Carbajal on 10-42-4954Baatkwgxoaz # (Auto)0.2 10 3/uL0.0-0.7FTriHealth McCullough-Hyde Memorial HospitalFolate23.80 ng/mL8.60-58.90 [facility] HospitalImmature Granulocyte # (Auto)0.02 10 3/uL 0.00-0.03[facility] HospitalPhosphorus Level3.5 mg/dL2.6-4.7 [facility] HospitalPlatelet mean volume Auto (Bld) [Entitic vol] Ordered By: Lj Carbajal on 56-01-7783Cmruuyfg mean volume (Bld) [Entitic vol] 10.6 fL9.5-13.5FTriHealth McCullough-Hyde Memorial HospitalPlatelets Auto (Bld) [#/Vol] Ordered By: Lj Carbajal on 20-06-4226Xcluekvsw (Bld) [#/Vol]168 10 3/cS790-651 [facility] HospitalRBC Auto (Bld) [#/Vol]Ordered By: Lj Carbajal on 04-00-8911MAT (Bld) [#/Vol]3.09 10 6/uLLow4.70-6.10[facility]erry Hospitalerum or plasma albumin/globulin mass ratioOrdered By: Lj Carbajal on 07-81-7310Hhieczx/Globulin [Mass ratio]1.0 {ratio}[facility] Hospitalerum or plasma anion gap determinationOrdered By: Lj Carbajal on 98-38-8723Ihpkc gap [Moles/Vol]9.2 mmol/LFThe Bellevue Hospitalerum or plasma total cholesterol/high density lipoprotein (HDL) cholesterol mass rat Ordered By: Lj Carbajal on [id number].total/Cholesterol in HDL [Mass ratio]1.8 {ratio}[facility] HospitalComment on above:3.3 - 4.4 LOW RISK4.4 - 7.1 AVERAGE RISK7.1 - 11.0 MODERATE RISK>11.0 HIGH UQHP22st [id number]'s called stating Rush is very lightheaded and tired. She said she's scared to leave him alone in fear she'll come home and find him . Says his BP is always very low, around 70's/40's. I told her he needs taken to the ED for evaluation. Dr. Campo is not in the [place] office for another 4 weeks, and Rush is already scheduled that day with him. Jessica thanked me for the advice and agreed to take him to the ED. I asked her to call me with updates and I would contact Dr. Campo if needed. She verbalized understanding.Normal [facility] HospitalBasophils Auto (Bld) [#/Vol]Ordered By: Clem Daniels on 81-80-0600Wodztphop (Bld) [#/Vol]0.1 10 3/uL0.0-0.1FTriHealth McCullough-Hyde Memorial HospitalBasophils/100 WBC Auto (Bld)Ordered By: Clem Daniels on 11-27-2024 Basophils/100 WBC (Bld)0.9 %0.2-2.0[facility] HospitalDiagnostic impression [Interpretation] in Specimen NarrativeOrdered By: Lj Carbajal on 24-02-0611Kuxxzavcyo impression [employer] (Unsp spec) [Interp]Comment.[facility] HospitalComment on above:Not infected with HCV unless early or acute infection issuspected (which may be delayed in an immuno compromisedindividual), or other evidence exists to indicate HCVinfection.Performed at: - Lab[address] [id number] Director: Dar Young PhD, Phone: [phone]/100 WBC Auto (Bld)Ordered By: Clem Daniels on 51-97-8419Tkwxxljrxuu/100 WBC (Bld)3.0 %0.9-7.0[facility] HospitalErythrocyte distribution width Auto (RBC) [Ratio]Ordered By: Clem Daniels on 33-37-8009Frbpguhqnmo distribution width (RBC) [Ratio]17.8 %High11.0-15.0[facility] HospitalGlobulin Calc (S) [Mass/Vol]Ordered By: Clem Daniels on 52-91-5128Ksqjobqw (S) [Mass/Vol]3.2 g/dLMercy Health West HospitalGlomerular filtration rate (GFR) estimation in non- AmericanOrdered By: Clem Daniels on 94-38-1967YNY/1.73 sq M.predicted among non-blacks MDRD (S/P/Bld) [Vol rate/Area]60 mL/min/{1.73_m2} >=60 mL/min/1.73m 2FTriHealth McCullough-Hyde Memorial HospitalHematocrit Auto (Bld) [Volume fraction]Ordered By: Lj Carbajal on 99-19-4341Lkozbsxeyh (Bld) [Volume fraction]27.0 %Low42.0-54.0[facility] HospitalHemoglobin [Mass/volume] in BloodOrdered By: Lj Carbajal on 08-26-7543Zpgfbqhoiu (Bld) [Mass/Vol]8.2 g/dLLow14.0-18.0[facility] Hemoglobin.gastrointestinal [Presence] in StoolOrdered By: Clem Daniels on 16-63-2907Xjyadslkpu.gastrointestinal Ql (Stl)NegativeMercy Health West HospitalHepatitis B virus surface Ag [Presence] in Serum or Plasma by Immunoassay Ordered By: Lj Carbajal on 99-75-9528GGY surface Ag IA QlNegativeNegative [facility] HospitalIron binding capacity [Mass/volume] in Serum or PlasmaOrdered By: Lj Carbajal on 18-12-2399Uukb binding capacity [Mass/Vol] 339.0 ug/dL250.0-450.0[facility] HospitalIron saturation [Mass Fraction] in Serum or PlasmaOrdered By: Lj Carbajal on 12-59-3977Wedw saturation [Mass fraction]4.1 %[facility] HospitalLaboratory - Chemistry and Chemistry - challengeOrdered By: Clem Daniels on 11-27-2024 Bilirubin Ql (U)NegativeNEGATIVEMercy Health West HospitalGlucose (U) [Mass/Vol]mg/dLAbnormalNEGATIVEMercy Health West HospitalKetones Ql (U) NegativeNEGATIVEMercy Health West HospitalpH (U)6.0 [pH]5.0-9.0[facility] Hospitalpecific gravity (U) [Rel density]1.0101.005-1.025 [facility] HospitalUrobilinogen Qn (U)0.2 {Reilly'U}/dL0.2-1.0 [facility] HospitalAlbumin [Mass/Vol]3.0 g/dLLow3.4-5.0[facility] HospitalALP [Catalytic activity/Vol]108 U/Q49-043CvmzmwifgMercy Health West HospitalALT [Catalytic activity/Vol]173 U/DYpax53-19CgqrqqwbnMercy Health West HospitalAST [Catalytic activity/Vol]72 U/HLczp22-98BuwegfwbcMercy Health West HospitalBilirubin [Mass/Vol]0.7 mg/dL0.2-1.0[facility] HospitalCalcium [Mass/Vol]8.5 mg/dL8.5-10.1FTriHealth McCullough-Hyde Memorial HospitalChloride [Moles/Vol]106 mmol/A45-513QhgpspgowMercy Health West HospitalCO2 [Moles/Vol]25.8 mmol/L21.0-32.0[facility] HospitalCreatinine [Mass/Vol]1.18 mg/dL0.70-1.30[facility] HospitalGFR/1.73 sq M.predicted MDRD (S/P/Bld) [Vol rate/Area]mL/min/{1.73_m2}>=60 mL/min/1.73m 2 [facility] HospitalGlucose [Mass/Vol]310 mg/hOPnen32-817MiqnfuafoMercy Health West HospitalMagnesium [Mass/Vol]2.2 mg/dL1.8-2.4FTriHealth McCullough-Hyde Memorial HospitalNatriuretic peptide B (Bld) [Mass/Vol]823.0 pg/mL<=1800.0[facility] HospitalPotassium [Moles/Vol]4.2 mmol/L3.5-5.1FTriHealth McCullough-Hyde Memorial HospitalProtein [Mass/Vol]6.2 g/dLLow6.4-8.2FThe Bellevue Hospitalodium [Moles/Vol]142 mmol/V080-289XvqvhswhgMercy Health West HospitalUrea nitrogen [Mass/Vol]30.0 mg/dLHigh7.0-18.0[facility] HospitalUrea nitrogen/Creatinine [Mass ratio]25.4 mg/mgMercy Health West Hospital Laboratory - Chemistry and Chemistry - challengeOrdered By: Lj Carbajal on 55-29-3077Dats [Mass/Vol]14.0 ug/dLLow65.0-175.0[facility] HospitalTransferrin [Mass/Vol]279 mg/nS100-672VzxipsbeoMercy Health West Hospital Comment on above:Performed at: [employer] [facility] [place] [id number] Director: Dar Young PhD, Phone: [phone] - Hematology and Cell countsOrdered By: Clem Daniels on 54-02-1828Bmirmwyp granulocytes/100 WBC (Bld)0.3 %0.0-0.5FTriHealth McCullough-Hyde Memorial Hospital Laboratory - Specimen informationOrdered By: Clem Daniels on 17-49-0081Fntwafceeu (U)CLEARCLEARFTriHealth McCullough-Hyde Memorial HospitalColor (U)LT. [facility] CenterLaboratory - UrinalysisOrdered By: Clem Daniels on 21-31-6842Yaedojuhb esterase Test strip Ql (U)NegativeNEGSt. Vincent HospitalMucus Ql (Urine sed)NONE SEENNONE SEENMercy Health West HospitalNitrite Ql (U)NegativeNEGATIVEMercy Health West Hospital Protein Ql (U)NegativeNEG/TRACEMercy Health West HospitalLeukocytes [#/volume] corrected for nucleated erythrocytes in Blood by Automated coun Ordered By: Clem Daniels on 03-92-4148HAA corrected for nucl RBC Auto (Bld) [#/Vol]5.7 10 3/uL4.0-11.0[facility] HospitalLymphocytes Auto (Bld) [#/Vol]Ordered By: Clem Daniels on 01-93-4234Hdjylypsvih (Bld) [#/Vol]1.5 10 3/uL1.2-3.8[facility] HospitalLymphocytes/100 WBC Auto (Bld) Ordered By: Clem Daniels on 00-06-4901Hdfyupbefzr/100 WBC (Bld)26.7 %20.5-60.0 [facility] HospitalMCH Auto (RBC) [Entitic mass]Ordered By: Clem Daniels on 45-30-3554FVO (RBC) [Entitic mass]25.1 pgLow25.9-34.0[facility] HospitalMCHC Auto (RBC) [Mass/Vol]Ordered By: Clem Daniels on 15-46-9734XYEI (RBC) [Mass/Vol]29.3 g/dLLow29.9-35.2FTriHealth McCullough-Hyde Memorial HospitalMCV Auto (RBC) [Entitic vol]Ordered By: Clem Daniels on 40-07-8991ZVO (RBC) [Entitic vol]85.5 fL80.0-94.0[facility] HospitalMonocytes Auto (Bld) [#/Vol]Ordered By: Clem Daniels on 03-85-3885Wvgdyufnm (Bld) [#/Vol]0.5 10 3/uL0.3-0.8[facility] HospitalMonocytes/100 WBC Auto (Bld)Ordered By: Clem Daniels on 52-75-4746Ohmsjtjui/100 WBC (Bld)7.8 %1.7-12.0[facility] HospitalNeutrophils Auto (Bld) [#/Vol]Ordered By: Clem Daniels on 42-46-0923Ayvopiltuuu (Bld) [#/Vol]3.5 10 3/uL1.4-6.5FTriHealth McCullough-Hyde Memorial HospitalNeutrophils/100 WBC Auto (Bld)Ordered By: Clem Daniels on 11-27-2024 Neutrophils/100 WBC (Bld)61.3 %43.0-75.0[facility] HospitalNo Panel InformationOrdered By: Clem Daniels on 16-60-9176Swviy BacteriaNONE SEEN #/HPFNONE [facility] CenterUrine Culture ReflexedNOMercy Health West HospitalUrine Occult BloodNegativeNEGATIVEMercy Health West HospitalUrine Other CastsNONE SEEN #/LPFNONE [facility] CenterUrine Other CrystalsNone Seen #/HPFNone [facility] HospitalUrine RBC0-2 #/HPF0-2FTriHealth McCullough-Hyde Memorial HospitalUrine Squamous Epithelial CellsRARE #/LPFNONE/RAREMercy Health West Hospital Urine WBC0-2 #/HPFAbnormalNONE [facility] CenterEosinophils # (Auto)0.2 10 3/uL0.0-0.7FTriHealth McCullough-Hyde Memorial HospitalImmature Granulocyte # (Auto)0.02 10 3/uL0.00-0.03[facility] HospitalTroponin I High Gvavpqtcqwt82.7 pg/mL4.0-76.1FTriHealth McCullough-Hyde Memorial HospitalComment on above: CUT-OFF POINTS HAVE BEEN ESTABLISHED BASED ON THE FOURTHUNIVERSAL DEFINITION OF MYOCARDIAL INFARCTION. THE UPPERREFERENCE LIMIT (URL) OF TROPONIN, DEFINED THE 99THPERCENTILE OF cTnI DISTRIBUTION IN A REFERENCE POPULATION,HAS BEEN CONFIRMED THE DECISION THRESHOLD FOR MIDIAGNOSIS.99TH PERCENTILE = 76.2 PG/MLNOTE: HIGH-SENSITIVITY TROPONIN ASSAY IS NOT INTENDED TO BEUSED IN ISOLATION BUT SHOULD BE INTERPRETED IN CONJUNCTIONWITH OTHER DIAGNOSTIC AND CLINICAL INFORMATION.No Panel InformationOrdered By: Lj Carbajal on 11-27-2024 Hepatitis A IgM AntibodyNegativeNegOhioHealth Shelby HospitalComment on above:A negative anti-HAV IgM result suggests no recent orcurrent HAV infection.Hepatitis B Core IgM AntibodyNegativeNegOhioHealth Shelby HospitalPhosphorus Level4.0 mg/dL2.6-4.7FTriHealth McCullough-[facility] Hospital Platelet mean volume Auto (Bld) [Entitic vol]Ordered By: Clem Daniels on 00-45-3919Lgkegoih mean volume (Bld) [Entitic vol]10.9 fL9.5-13.5FTriHealth McCullough-Hyde Memorial HospitalPlatelets Auto (Bld) [#/Vol]Ordered By: Clem Daniels on 17-25-4811Qsonlslfh (Bld) [#/Vol]178 10 3/dT334-883GtjxyruwnMercy Health West HospitalRBC Auto (Bld) [#/Vol]Ordered By: Clem Daniels on 55-43-7884RFA (Bld) [#/Vol]2.83 10 6/uLLow4.70-6.10[facility] Reticulocytes/100 RBC Auto (Bld)Ordered By: Lj Carbajal on 11-27-2024 Reticulocytes/100 RBC (Bld)2.53 %0.60-3.10Martins Ferry Hospitalerum or plasma albumin/globulin mass ratioOrdered By: Clem Daniels on 11-27-2024 Albumin/Globulin [Mass ratio]0.9 {ratio}[facility] Ferry Hospitalerum or plasma anion gap determinationOrdered By: Clem Daniels on 09-77-3799Flwbq gap [Moles/Vol]14.4 mmol/LFThe Bellevue Hospitalerum or plasma hepatitis C virus antibody signal/cutoff ratio by immunoassay (relatiOrdered By: Lj Carbajal on 38-94-2201FDN Ab Signal/Cutoff IA [Rel units/Vol]Non-ReactiveNon ReactiveMercy Health West HospitalOrders Onlyon 27-45-5896Byurmp Only [id number] Kimmy Mcarthur Laura 1945 M Date Provider Department Center 11/21/2024 [id number], HISTORICAL EBONY Roland Family History Problem Relation Age of Onset Cancer Father Diabetes Father Family Status - Relation Status Age at FatherNormalUniversCincinnati Shriners HospitalOffice Visiton 65-27-4530Tbnrty- up [id number] Kimmy Mcarthur Laura 1945 M Date Provider Department Center 10/09/2024 271-NATASHA CAMPO EBONY Roland Family History Problem Relation Age of Onset Cancer Father Diabetes Father Family Status - Relation Status Age at Father Level of Service:24437 [place] OFFICE/OUTPATIENT ESTABLISHED MOD MDM 30 [facility]36on [id number] informed they will call sleep study place as they never followed up w sleep study, they will stop amlodipineNormalUniSouthwest General [facility] Center Ambulatory Visit Summaryon 91-19-7483Wbnnfyuvdp Visit SummaryAmbulatory Visit Summary KIMMY MCARTHUR :1945 Visit Date:07/18/2024 [...] Tab) 1 Tablets Contact prescribing physician if questionsor concerns Unchanged clopidogrel 75 Milligram By Mouth Every day Contact prescribing physician if questions orconcerns Unchanged dapagliflozin (Farxiga 10 mg oral tablet) 1 Tablets By Mouth Every day Contact prescribing physician if questions or concerns Unchanged insulin glargine (Basaglar KwikPen 100 units/ mL subcutaneous solution) Contact prescribing physician if questions or concerns Unchanged lisinopril (lisinopril 20 mg Tab) 1 Tablets Contact prescribing physician if questions orconcerns Unchanged metformin (metformin 500 mg Tab) 1 [...] The urethra carries stored urine ou t (more content not included)...ZakiyaMercy Health Lorain HospitalUrology Office/Clinic Noteon 73-65-1001Gasvtep Office/Clinic NoteUrology Office/Clinic Note Chief Complaint 1 year with [...] continue PSA checks annually and only act ifPSA should rise significantly. He still wishes to [...] he could increase to 20mg. Pt states hehas been 50 years and his is not [...] Medications amiodarone 200 mg (more content not included)...[facility] NorthComment on above:Result Comment: Electronically Signed By: Deja Perez MD\.br\Date and Time Signed: 07/18/24 09:19EDT\.br\Electronically Co-Signed By: Amalia Herring\.br\Date and Time Co-Signed: 07/18/24 09:13 EDTCBC w/ Auto Diffon 43-89-3466Xcmnacnmt/100 WBC (Bld)0.8 %Normal0.0-2.0NOMS HealthcareComment on above:Performed By: #### [id number] #### [facility] [address], [place] [address]Wanuhxqrdmi distribution width (RBC) [Ratio]15.6 %High10.9-14.2 NOMS HealthcareComment on above:Performed By: #### [id number] #### [facility] [address], [place] [address]Yfygysludg (Bld) [Volume fraction]32.5 %Low37.7-49.0NOMT HealthcareComment on above:Performed By: #### [id number] #### [facility] [address], [place] [address]Sulfdegdygo/100 WBC (Bld)22.2 %Eknngp65.0-50.0[facility] Comment on above:Performed By: #### [id number] #### [facility] [address], [place] [address]Qjroqlyhami/100 WBC (Bld)65.2 %Tgdtou88.0-75.0[facility] Comment on above:Performed By: #### [id number] #### [facility] [address], [place] [address]Wdxvvmzo mean volume (Bld) [Entitic vol]8.3 fLNormal6.4-10.8 [facility] HealthcareComment on above:Performed By: #### [id number] #### [facility] [address] [place] [address]Rxjjqusla/Leukocytes Auto (Bld) [Pure # fraction]0.0 E9/LNormal 0.0-0.2FUniversity Hospitals Cleveland Medical CenterComment on above:Performed By: #### [id number] #### [facility] [address] [place] [address]Zfvfcrzaksy (Bld) [#/Vol]0.2 E9/LNormal0.0-0.5FUniversity Hospitals Cleveland Medical CenterComment on above:Performed By: #### [id number] #### [facility] [address], [place] [address]Vevgzylzcoz/100 WBC (Bld)3.5 %Normal0.0-8.0[facility] HospitalComment on above:Performed By: #### [id number] #### [facility] [address] [place] [address]Gyapnkkwbw (Bld) [Mass/Vol]11.1 g/dLLow13.5-17.5FUniversity Hospitals Cleveland Medical CenterComment on above:Performed By: #### [id number] #### [facility] [address] [place] [address]Qbdwjpiqwrz (Bld) [#/Vol]1.3 E9/LNormal1.0-4.0[facility] HospitalComment on above:Performed By: #### [id number] #### [facility] [address] [place] [address]ZRW (RBC) [Entitic mass]30.5 ftNirled49.0-34.0[facility] HospitalComment on above:Performed By: #### [id number] #### [facility] [address] [place] [address]KGCF (RBC) [Mass/Vol]34.1 g/wWXenxpp55.4-36.0[facility] HospitalComment on above:Performed By: #### [id number] #### [facility] [address] [place] [address]TAT (RBC) [Entitic vol]89.5 aEFsbksq75.0-100.0[facility] HospitalComment on above:Performed By: #### [id number] #### [facility] [address] [place] [address]Bptxjoiye (Bld) [#/Vol]0.5 E9/LNormal0.2-1.0[facility] HospitalComment on above:Performed By: #### [id number] #### [facility] [address] [place] [address]Ukoagjjcsgk (Bld) [#/Vol]3.8 E9/LNormal2.0-7.5FUniversity Hospitals Cleveland Medical CenterComment on above:Performed By: #### [id number] #### [facility] [address] [place] [address]Ynqbpacg011.0 E9/ACtqsse353.0-500.0[facility] Comment on above:Performed By: #### [id number] #### [facility] [address] [place] [address]GUW (Bld) [#/Vol]3.6 E12/LLow4.3-5.9[facility] Comment on above:Performed By: #### [id number] #### Deandre [facility] [address], [place] [address]DFE corrected for nucl RBC Auto (Bld) [#/Vol]5.8 E9/LNormal 4.0-11.0[facility] HospitalComment on above:Performed By: #### [id number] #### [facility] [address], [place] [address]MHLNXWUISFokxkgt By: SYSTEM SYSTEM on 60-23-3508Ucuzaed [Mass/Vol]4.1 g/dLNormal3.3 - 5.0 gm/dLRemisol ChemAlbumin DL <= 20 mg/L (U) [Mass/Vol]0.8 mg/dLNormal0.0 - 1.9 mg/dLRemisol ChemAlbumin/Globulin [Mass ratio]1.8 {ratio}Normal1.1 - 2.2Remisol ChemALP [Catalytic activity/Vol]73 [iU]/lWwlwqj76 - 98 Int._Unit/LRemisol ChemALT No additional P-5'-P [Catalytic activity/Vol]16 [iU]/dNormal6 - 46 Int._Unit/LRemisol ChemAnion gap [Moles/Vol] 12 mmol/LNormal6 - 16 mEq/LRemisol ChemAST [Catalytic activity/Vol]15 [iU]/d Normal5 - 43 Int._Unit/LRemisol ChemBilirubin [Mass/Vol]0.9 mg/dLNormal0.0 - 1.1 mg/dLRemisol ChemCalcium [Mass/Vol]9.2 mg/dLNormal8.9 - 11.1 mg/dLRemisol Chem Chloride [Moles/Vol]106 mmol/KNrjmox325 - 111 mmol/LRemisol ChemCholesterol [Mass/Vol]96 mg/ePMjc965 - 200 mg/dLRemisol ChemCholesterol in HDL [Mass/Vol]38 mg/dLInvalid Interpretation CodeRemisol ChemComment on above:Result Comment: '>= 60 LOW RISK' '<= 40 HIGH RISK'Cholesterol in LDL [Mass/Vol]44 mg/dLNormal<=129mg/dLRemisol ChemCholesterol in VLDL [Mass/Vol]14 mg/dLNormal7 - 40 mg/dLRemisol ChemCO2 [Moles/Vol]24 mmol/UQrxtwv88 - 31 mmol/LRemisol ChemCreatinine [Mass/Vol]0.9 mg/dLNormal0.5 - 1.3 mg/dLRemisol OalmyXKI68 mL/min/1.73 r2Uwtbjt>=59mL/min/1.73 o3Udvvxht ChemGlobulin (S) [Mass/Vol]2.3 g/dLNormal1.4 - 4.0 gm/dLRemisol Chem Glucose [Mass/Vol]119 mg/sLVrkvyu40 - 199 mg/dLRemisol ChemIron [Mass/Vol]38 ug/qDZhttxf04 - 153 mcg/dLRemisol ChemPotassium [Moles/Vol]4.0 mmol/LNormal3.5 - 5.3 mmol/LRemisol ChemProtein [Mass/Vol]6.4 g/dLNormal6.0 - 7.8 gm/dLRemisol ChemSodium [Moles/Vol]138 mmol/PUctsyk839 - 145 mmol/LRemisol ChemTriglyceride [Mass/Vol]68 mg/dLNormal<=149mg/dLRemisol ChemUrea nitrogen [Mass/Vol]28 mg/dL High5 - 21 mg/dLRemisol ChemUrea nitrogen/Creatinine [Mass ratio]31 mg/upTizz25 - 20Remisol ChemFree PSA [Mass/Vol]0.9 ng/mLInvalid Interpretation CodeRemisol ChemComment on above:Interpretive Data: The concentration of free PSA and total PSA determined with assays from different manufacturers can vary due to differences in assay methods and specificity. Values obtained with different bridge operator's assays cannot be used interchangeably. The methodology used to obtain this result was chemiluminescence using [employer]'s Access Hybritech PSA reagent and Access Hybritech free PSA reagent.Free PSA/Total PSA [Mass fraction]33.3 %Normal>=25.0%Remisol ChemProstate specific Ag [Mass/Vol]2.7 ng/mLNormal0.1 - 3.5 ng/mLRemisol ChemComment on above:Interpretive Data: The concentration of PSA determined by different manufacturers can vary due to di fferences in assay methods and reagent specificity. Values obtained from different assay methods cannot be used interchangeably. The methodology used for this result was chemiluminescence using [employer]'s Access Hybritech PSA reagent.CHEMISTRYOrdered By: Chrissy Holder on 88-89-5867KpN4h (Bld) [Mass fraction]6.3 %High<=5.9%[facility] ChemAutoSSCMPon 95-84-7564Wdzsqed [Mass/Vol]4.1 g/dLNormal3.3-5.0[facility] HospitalComment on above:Performed By: #### [id number] #### [facility] [address], [place] [address]Yalluse/Globulin (S) [Mass conc ratio]1.0Hlndtn6.1-2.2FUniversity Hospitals Cleveland Medical CenterComment on above:Performed By: #### [id number] #### [facility] [address], [place] [address]SLS [Catalytic activity/Vol]73 Int._Unit/AZywzza18-03GxqgjcMercy Health Lorain HospitalComment on above:Performed By: #### [id number] #### [facility] [address] [place] [address]BXN No additional P-5'-P [Catalytic activity/Vol]16 Int._Unit/L Normal6-46Mer[facility] HospitalComment on above:Performed By: #### [id number] #### [facility] [address], [place] [address]Xpboy gap [Moles/Vol]12 mmol/LNormal6-16[facility] HospitalComment on above:Performed By: #### [id number] #### [facility] [address], [place] [address]OYH [Catalytic activity/Vol]15 Int._Unit/LNormal5-43[facility] HospitalComment on above:Performed By: #### [id number] #### [facility] [address], [place] [address]Macnqrqap [Mass/Vol]0.9 mg/dLNormal0.0-1.1FUniversity Hospitals Cleveland Medical CenterComment on above:Performed By: #### [id number] #### [facility] [address], [place] [address]Uaqqniv [Mass/Vol]9.2 mg/dLNormal8.9-11.1FUniversity Hospitals Cleveland Medical CenterComment on above:Performed By: #### [id number] #### [facility] [address], [place] [address]Pzkvgqul [Moles/Vol]106 mmol/LAtlsqf027-935KvssxbMercy Health Lorain HospitalComment on above:Performed By: #### [id number] #### [facility] [address], [place] [address]ZX4 [Moles/Vol]24 mmol/PUrvwhb30-23EpnruyMercy Health Lorain Hospital Comment on above:Performed By: #### [id number] #### [facility] [address], [place] [address]Uuxhzgbmdw [Mass/Vol]0.9 mg/dLNormal0.5-1.3FUniversity Hospitals Cleveland Medical CenterComment on above:Performed By: #### [id number] #### [facility] [address], [place] [address]Ajcwlxes (S) [Mass/Vol]2.3 g/dLNormal1.4-4.0[facility] HospitalComment on above:Performed By: #### [id number] #### [facility] [address], [place] [address]Ykxnecn [Mass/Vol]119 mg/gZEnidyn20-492DctcwzMercy Health Lorain HospitalComment on above:Performed By: #### [id number] #### [facility] [address], [place] [address]Fjfxwbzii [Moles/Vol]4.0 mmol/LNormal3.5-5.3FUniversity Hospitals Cleveland Medical CenterComment on above:Performed By: #### [id number] #### [facility] [address], [place] [address]Oigormk [Mass/Vol]6.4 g/dLNormal6.0-7.8[facility] HospitalComment on above:Performed By: #### [id number] #### [facility] [address], [place] [address]Fgremv [Moles/Vol]138 mmol/SVgngvw749-777XcrnoiMercy Health Lorain HospitalComment on above:Performed By: #### [id number] #### [facility] [address], [place] [address]Iwyl nitrogen [Mass/Vol]28 mg/dLHigh5-21[facility] HospitalComment on above:Performed By: #### [id number] #### [facility] [address], [place] [address]Wlkh nitrogen/Creatinine [Mass ratio]31 No TgcpqKzii58-01FbjrcqMercy Health Lorain HospitalComment on above:Performed By: #### [id number] #### [facility] [address], [place] [address]KCUU CBC W/ AUTO DIFFon 82-28-1612JRLAMPFXRIM/100 LEUKOCYTES:NFR:PT:BLD:QN:AUTOMATED COUNT3.5 %0.0 - 8.0 %[facility] EOSINOPHILS:NCNC:PT:BLD:QN:0.2[facility] BASOPHILS/LEUKOCYTES:NFR.DF:PT:BLD:QN:AUTOMATED GILEB5REGRSoutheast Missouri Community Treatment Center ERYTHROCYTE MEAN CORPUSCULAR HEMOGLOBIN CONCENTRATION:MCNC:PT:RBC:QN34.1[facility] ERYTHROCYTE MEAN CORPUSCULAR HEMOGLOBIN:ENTMASS:PT:RBC:QN30.5 pg 27.0 - 34.0 pgSoutheast Missouri Community Treatment Center ERYTHROCYTE MEAN CORPUSCULAR VOLUME:ENTVOL:PT:RBC:QN:AUTOMATED COUNT89.5 fL80.0 - 100.0 fLSoutheast Missouri Community Treatment Center ERYTHROCYTES:NCNC:PT:BLD:QN:AUTOMATED COUNT3.6LowSoutheast Missouri Community Treatment Center HEMOGLOBIN:MCNC:PT:BLD:QN:11.1LowNOzarks Community Hospital LEUKOCYTES5.8[facility] MONOCYTES:NCNC:PT:BLD:QN:AUTOMATED COUNT0.5[facility] NEUTROPHILS:NCNC:PT:BLD:QN:AUTOMATED COUNT3.8[facility] DivisionInterpretation and review of laboratory resultsAbnormalHCA Midwest DivisionLYMPHOCYTES:NCNC:PT:BLD:QN: 1.3NOMT HealthcarePlatelets (Bld) [#/Vol]203 10*3/uLHCA Midwest DivisionOriginal Ordering Provider: ELO ALLENPhelps HealthHEMATOLOGYOrdered By: SYSTEM SYSTEM on 41-67-7333Filvgnncd/100 WBC (Bld)0.8 %Normal0.0 - 2.0 % Remisol HemeBasophils/Leukocytes Auto (Bld) [Pure # fraction]0.0 E9/LNormal0.0 - 0.2 E9/LRemisol HemeEosinophils (Bld) [#/Vol]0.2 E9/LNormal0.0 - 0.5 E9/LRemisol HemeEosinophils/100 WBC (Bld)3.5 %Normal0.0 - 8.0 %Remisol HemeErythrocyte distribution width (RBC) [Ratio]15.6 %High10.9 - 14.2 %Remisol HemeHematocrit (Bld) [Volume fraction]32.5 %Low37.7 - 49.0 %Remisol HemeHemoglobin (Bld) [Mass/Vol]11.1 g/dLLow13.5 - 17.5 gm/dLRemisol HemeLymphocytes (Bld) [#/Vol]1.3 E9/LNormal1.0 - 4.0 E9/LRemisol HemeLymphocytes/100 WBC (Bld)22.2 %Idjzyn36.0 - 50.0 %Remisol HemeMCH (RBC) [Entitic mass]30.5 daHycgwj21.0 - 34.0 pgRemisol HemeMCHC (RBC) [Mass/Vol]34.1 g/rJHannyv97.4 - 36.0 gm/dLRemisol HemeMCV (RBC) [Entitic vol]89.5 eORwkhyb00.0 - 100.0 fLRemisol HemeMonocytes (Bld) [#/Vol]0.5 E9/LNormal0.2 - 1.0 E9/LRemisol HemeMonocytes/100 WBC (Bld)8.3 %Normal4.0 - 14.0 %Remisol HemeNeutrophils (Bld) [#/Vol]3.8 E9/LNormal2.0 - 7.5 E9/LRemisol Heme Neutrophils/100 WBC (Bld)65.2 %Oypxqt03.0 - 75.0 %Remisol SskkKriicvci206.0 E9/L Riusqz036.0 - 500.0 E9/LRemisol HemePlatelet mean volume (Bld) [Entitic vol]8.3 fLNormal6.4 - 10.8 fLRemisol HemeRBC (Bld) [#/Vol]3.6 E12/LLow4.3 - 5.9 E12/L Remisol HemeWBC corrected for nucl RBC Auto (Bld) [#/Vol]5.8 E9/LNormal4.0 - 11.0 E9/LRemisol JzxwMbjG1jgj 08-67-0584RcN9x (Bld) [Mass fraction]6.3 %High <=5.9[facility] HospitalComment on above:Performed By: #### [id number] #### [facility] [address], [place] [address]Vrhozl 22-97-9023Kiga [Mass/Vol]38 microgram/nLUebygt08-277 [facility] HospitalComment on above:Performed By: #### [id number] #### [facility] [address], [place] [address]Usqxpukosu - Chemistry and Chemistry - challengeOrdered By: SYSTEM SYSTEM on 91-57-6715Qlbjcxixn Ql (U)NegativeNormalNegativemg/dLFTMC UA Auto SSGlucose Ql (U)4+ mg/dLInvalid Interpretation CodeNegativemg/dLFTMC UA Auto SSpH (U)5.5 *NA* (07/11/24 1:55 PM)Invalid Interpretation Code5.0 - 9.0[facility] Auto SSSpecific gravity (U) [Rel density]1.023 *NA* (07/11/24 1:55 PM)Invalid Interpretation Code1.005 - 1.030[facility] Auto SS Urobilinogen (U) [Mass/Vol]NegativeNormalNegativemg/dLALL[facility]ANCEHE[facility] Auto SSLaboratory - Specimen informationOrdered By: SYSTEM SYSTEM on 26-84-2294Fhpdinz (U)Clear (07/11/24 1:55 PM)NormalClearFTM UA Auto SSLaboratory - UrinalysisOrdered By: SYSTEM SYSTEM on 30-80-9267Ehhqqgwnbk Auto test strip (U) [Mass/Vol]Negative NormalNegativemg/dLALL[facility] Auto SSKetones Auto test strip Ql (U)NegativeNormal Negativemg/dLALL[facility] Auto SSLeukocyte esterase Auto test strip Ql (U)Negative NormalNegativeLeu/uLALL[facility] Auto SSNitrite Auto test strip Ql (U)NegativeNormal Negativemg/dLALL[facility] Auto SSProtein Ql (U)NegativeNormalNegativemg/dLALL[facility]ANCEHE[facility]A Auto SSLipid Panelon 51-93-6639Owrbznivbce [Mass/Vol]96 mg/dNVzs397-275OqxdhdMercy Health Lorain HospitalComment on above:Performed By: #### [id number] #### [facility] [address], [place] [address]Uyusyqrpbip in HDL [Mass/Vol]38 mg/dLInvalid Interpretation CodeMercy Health Lorain HospitalComment on above:Result Comment: '>= 60 LOW RISK' '<= 40 HIGH RISK'Performed By: #### [id number] #### [facility] [address], [place] [address]Gslhhkgwvic in LDL [Mass/Vol]44 mg/dLNormal<=129[facility] HospitalComment on above:Performed By: #### [id number] #### [facility] [address], [place] [address]Zgmvnkkvvhx in VLDL [Mass/Vol]14 mg/dLNormal7-40[facility] HospitalComment on above:Performed By: #### [id number] #### [facility] [address] [place] [address] 26593Atixncxxtidt [Mass/Vol]68 mg/dLNormal<=149[facility] HospitalComment on above:Performed By: #### [id number] #### [facility] [address] [place] [address] 36257Vx Panel InformationOrdered By: Talita Candelario on 75-09-4358EL Spec DescClean Catch (07/11/24 1:55 PM)NormalALL[facility]HE[facility] Auto SSU Microalbon 65-86-2529Arxqcrm DL <= 20 mg/L (U) [Mass/Vol]0.8 mg/dLNormal0.0-1.9[facility] HospitalComment on above:Performed By: #### [id number] #### [facility] [address] [place] [address] 615[address]OX with Cult Rflxon 13-04-0961Tvnvobiqj Ql (U)NegativeNormal NegativeMercy Health Lorain HospitalComment on above:Performed By: #### [id number] #### [facility] [address] [place] [address] 48045Ydxdf Comment: Duplicate order, screen shot this page and put a note on it to be credited.:05:55 EDT grf982Zuohxsfft By: #### [id number] #### [facility] [address] [place] [address] 04279Rdknhmq (U)ClearNormalClearMercy Health Lorain HospitalComment on above:Performed By: #### [id number] #### [facility] [address] [place] [address] 14108Clrlb Comment: Duplicate order, screen shot this page and put a note on it to be credited.:05:55 EDT ekm183Ewtnkdgij By: #### [id number] #### [facility] [address] [place] [address] 52231Qnbka (U)YellowNormalYellowMercy Health Lorain HospitalComment on above:Result Comment: Microscopic readings are only performed on those samples that meet specific criteria set forth by [facility].Performed By: #### [id number] #### [facility] [address], [place] [address]Gtyej Comment: Duplicate order, screen shot this page and put a note on it to be credited.:05:55 EDT mzk987Qrlkdpitx By: #### [id number] #### [facility] [address] [place] [address] 18525Onvbtgj Ql (U)4+ mg/dLAbnormalNegToledo HospitalComment on above:Performed By: #### [id number] #### [facility] [address] [place] [address] 28858Qcddc Comment: Duplicate order, screen shot this page and put a note on it to be credited.:05:55 EDT yqw414Mftxfzjgu By: #### [id number] #### [facility] [address] [place] [address] 49412Hyeiwdngqc Auto test strip (U) [Mass/Vol]NegativeNormalNegative [facility] HospitalComment on above:Performed By: #### [id number] #### [facility] [address] [place] [address] 89399Wylcf Comment: Duplicate order, screen shot this page and put a note on it to be credited.:05:55 EDT wyn515Pbuasmomi By: #### [id number] #### [facility] [address] [place] [address]32[address]Uategiu Auto test strip Ql (U)NegativeNormalNegativeMercy Health Lorain HospitalComment on above:Performed By: #### [id number] #### [facility] [address] [place] [address] 047[address]Vgtal Comment: Duplicate order, screen shot this page and put a note on it to be credited.:05:55 EDT rhy163Hymghimun By: #### [id number] #### [facility] [address] [place] [address] 19299Akkmhcxtv esterase Auto test strip Ql (U)NegativeNormalNegative [facility] HospitalComment on above:Performed By: #### [id number] #### [facility] [address] [place] [address] 50258Nvgqv Comment: Duplicate order, screen shot this page and put a note on it to be credited.:05:55 EDT yfg877Ogflusdbb By: #### [id number] #### [facility] [address] [place] [address] 12606Ulayptk Auto test strip Ql (U)NegativeNormalNegativeMercy Health Lorain HospitalComment on above:Performed By: #### [id number] #### [facility] [address] [place] [address] 668[address]Kphjp Comment: Duplicate order, screen shot this page and put a note on it to be credited.:05:55 EDT bjx331Ekascrkje By: #### [id number] #### [facility] [address] [place] [address] 57433qW (U)5.5 [pH]Invalid Interpretation Code5.0-9.0[facility] HospitalComment on above:Performed By: #### [id number] #### [facility] [address] [place] [address] 23617Rygnl Comment: Duplicate order, screen shot this page and put a note on it to be credited.:05:55 EDT wxo829Zjhotqjar By: #### [id number] #### [facility] [address] [place] [address] 58301Ilqkqfw Ql (U)NegativeNormalNegToledo Hospital Comment on above:Performed By: #### [id number] #### [facility] [address] [place] [address] 79260Oltbi Comment: Duplicate order, screen shot this page and put a note on it to be credited.:05:55 EDT ttc587Vcufelxgf By: #### [id number] #### [facility] [address] [place] [address] 75[address]Ivghzjlu gravity (U) [Rel density]1.023Invalid Interpretation Code1.005-1.030[facility] HospitalComment on above:Performed By: #### [id number] #### [facility] [address] [place] [address] 57175Vtkbf Comment: Duplicate order, screen shot this page and put a note on it to be credited.:05:55 EDT hzr987Cyqnerhim By: #### [id number] #### [facility] [address] [place] [address] 45818Qhbbjibslodf (U) [Mass/Vol]NegativeNormalNegativeMercy Health Lorain HospitalComment on above:Performed By: #### [id number] #### [facility] [address] [place] [address] 050[address]Deuga Comment: Duplicate order, screen shot this page and put a note on it to be credited.:05:55 EDT bmz373Zuqkvbarp By: #### [id number] #### [facility] [address] [place] [address]Yrba of Urine collection methodClean CatchNormalMercy Health Lorain HospitalComment on above:Performed By: #### [id number] #### [facility] [address] [place] [address] 91977Jwmox Comment: Duplicate order, screen shot this page and put a note on it to be credited.:05:55 EDT cnt087Ikkudscrb By: #### [id number] #### [facility] [address] [place] [address] 35978FRBXIZLYXKPvrryki By: SYSTEM SYSTEM on 47-04-6696Njnbe (U) Yellow 1 (07/11/24 1:55 PM)[facility] UA Auto SSComment on above:Interpretive Data: Microscopic readings are only performed on those samples that meet specific criteria set forth by [facility].Color (U)Yellow 2 (07/11/24 1:55 PM)NormalWill[facility] UA Auto SSComment on above:Interpretive Data: Microscopic readings are only performed on those samples that meet specific criteria set forth by [facility].eGFRon 07-11-2024 eGFR87 mL/min/1.73 g7Iuvbhg>=59FishSaint Luke InstituteComment on above: Performed By: #### [id number] #### [facility] [address] [address]Vwb 04-11-2024L Specimen: [id number] Received: 04/12/24 Status: SULY Mendez Num: [id number] Spec Type: Surgical Subm Dr: Sabino Mauricio DO Tissues: A Esophagus Biopsy (DISTAL ESOPHAGUS BX X2) B Colon Biopsy (RECTAL SIGMOID JUNCTION POLY) Procedures: BENIGNO/Polly, Gross/Micro L4/2 Age/ Patient Sex Location Account Attending Physician Kimmy Mcarthur 78/M LABELL [id number] Sabino Mauricio,DO SPEC NUM: [id number] RECD: 04/12/24 STATUS: SULY MENDEZ NUM: [id number] MALKA: 04/11/24-[address] [facility] [address]: Sabino Mauricio DO ENTERED: 04/12/24 [facility] [address]: Raza Ward SPEC TYPE: Surgical DEPT: BRAIN DICKERSON ENTERED BY: [id number] RECV BY: [id number] ORDERED: HE/4, Gross/Micro L4/2 ORDERED: HE/4, Gross/Micro [...] submitted in a single cassette. (1, ns, BS A) Part B is received in formalin labeled with the patients name, date of , and rectal sigmoid junction polypectomy is a patel-ivan, focally erythematous, friable, 0.4 cm in greatest dimension polypoid fragment. The specimen is entirely submitted in a single cassette. (1, ns, BS B) JG Specimen: BS Received: 04/12/24 Status: SULY Mendez Num: [id number] Spec Type: Surgical Subm Dr: Sabino Mauricio DO Tissues: A Esophagus Biopsy (DISTAL ESOPHAGUS BX X2) B Colon Biopsy (RECTAL SIGMOID JUNCTION POLY) Procedures: BENIGNO/Polly, Xi/Kirsten L4/2 Patient: Kimmy Mcarthur [id number] (Continued) Specimen: BS Received: 04/12/24 (Continued) Signed (signature on file) Jasiel Sanon MD 04/13/24 4065 Specimen: [id number] Received: 04/12/24 Status: SULY Mendez Num: [id number] Spec Type: Surgical Subm Dr: Sabino Mauricio DO Tissues: A Esophagus Biopsy (DISTAL ESOPHAGUS BX X2) B Colon Biopsy (RECTAL SIGMOID JUNCTION POLY) Procedures: HE/4, Gross/Micro L4/2 Patient: Kimmy Mcarthur [id number] (Continued) Specimen: [id number] Received: 04/12/24 (Continued) Microscopic Description A B:Microscopic examination is performed. CPT Codes 05067 x2 Specimen: [id number] Received: 04/12/24 Status: SULY Mendez Num: [id number] Spec Type: Surgical Subm Dr: Sabino Mauricio DO Tissues: A Esophagus Biopsy (DISTAL ESOPHAGUS BX X2) B Colon Biopsy (RECTAL SIGMOID JUNCTION POLY) Procedures: HE/4, Gross/Micro L4/2 Patient: Kimmy Mcarthur [id number] (Continued) Signed (signature on file) Jasiel Sanon MD 04/13/24 1225NormSpalding Rehabilitation HospitalEGMENTAL BLOOD PRESSUREon 88-02-4424QkmOxford[place] [address] Vein Report Signed Patient: KIMMY MCARTHUR MR#: [id number] : 1945 Acct:[id number] Age/Sex: 78 / M ADM Date: 03/29/24 Loc: VC Attending Dr: Natasha Campo M.D. Ordering Physician: Natasha Campo M.D. Date of Service: 03/29/24 Procedure(s): VC SEGMENTAL PRESSURES Accession Number(s): [id number] cc: Marisol Boyce NP; Natasha Campo M.D. [place] [id number] Patient Name: KIMMY MCARTHUR MRN: [id number] date: 1945 Sex: M Assigned Patient Location: Current Patient Location: Accession/Order Number: [id number] Exam Date: 03/29/2024 12:49 Report Date: 03/29/2024 13:54 At the request of: NATASHA CAMPO Procedure: VC SEGMENTAL PRESSURES EXAM: VC SEGMENTAL PRESSURES HISTORY: I73.9 COMPARISON: None. FINDINGS: Segmental pressures presented as follows (right, left) in mmHg. Brachial: 151, 152 Upper thigh: 176, 173 Lower thigh: 192, 171 Calf: 168, 199 DPA: 146, 160 SALES AND MERCHANDISING ASSOCIATE: 161, 157 1st Toe: 155, 127 FADY: 1.06, 1.05 TBI: 1.02, 0.84 The ABIs are Normal The TBI's are Acceptable PVR waveforms: Right leg: Thigh: Normal Above knee: Normal Below knee: Normal Right ankle: Normal Left leg: Thigh: Normal Above knee: Normal Below knee: Normal Right ankle: Normal VEIN/VC SEGMENTAL PRESSURES IMPRESSION: Normal exam Electronically authenticated by: MIGUEL SORTO Date: 03/29/2024 13:54 Dictated By: Miguel Sorto M.D. Signed By: 03/29/24 1356 DD/ 1354 TD/TT: Clerical Proofreader:MATIASadiologkervin, Radiologist, - 03/29/2024 [place] [address] Vein Report Signed Patient: KIMMY MCARTHUR MR#: [id number] : 1945 Acct:[id number] Age/Sex: 78 / M ADM Date: 03/29/24 Loc: VC Attending Dr: Natasha Campo M.D. Ordering Physician: Natasha Campo M.D. Date of Service: 03/29/24 Procedure(s): VC SEGMENTAL PRESSURES Accession Number(s): [id number] cc: Marisol Boyce ACCOUNT MANAGEMENT SPECIALIST; Natasha Campo M.D. [address] [place] [id number] Patient Name: KIMMY MCARTHUR MRN: [id number] date: 1945 Sex: M Assigned Patient Location: Current Patient Location: Accession/Order Number: [id number] Exam Date: 03/29/2024 12:49 Report Date: 03/29/2024 13:54 At the request of: NATASHA CAMPO Procedure: VC SEGMENTAL PRESSURES EXAM: VC SEGMENTAL PRESSURES HISTORY: I73.9 COMPARISON: None. FINDINGS: Segmental pressures presented as follows (right, left) in mmHg. Brachial: 151, 152 Upper thigh: 176, 173 Lower thigh: 192, 171 Calf: 168, 199 DPA: 146, 160 SALES AND MERCHANDISING ASSOCIATE: 161, 157 1st Toe: 155, 127 FADY: 1.06, 1.05 TBI: 1.02, 0.84 The ABIs are Normal The TBI's are Acceptable PVR waveforms: Right leg: Thigh: Normal Above knee: Normal Below knee: Normal Right ankle: Normal Left leg: Thigh: Normal Above knee: Normal Below knee: Normal Right ankle: Normal VEIN/VC SEGMENTAL PRESSURES IMPRESSION: Normal exam Electronically authenticated by: MIGUEL SORTO Date: 03/29/2024 13:54 Dictated By: Miguel Sorto M.D. Signed By: 03/29/24 1356 DD/ 1354 TD/TT: Clerical Proofreader: JEFF HealthcareRadiology Study observation (narrative)NOMS HealthcareSEGMENTAL BLOOD PRESSUREOrdered By: Radiologist Radiology on 36-96-2234YARY Healthcare Work Phone: ca ECHO DOPPLER COMPLETEon 64-83-6102QdrOxford, [place] [address] Cardiology Report Signed Patient: KIMMY MCARTHUR MR#: [id number] : 1945 Acct:[id number] Age/Sex: 78 / M ADM Date: 03/19/24 Loc: CARD Attending Dr: Natasha Campo M.D. Ordering Physician: Natasha Campo M.D. Date of Service: 03/19/24 Procedure(s): CA echo doppler complete Accession Number(s): [id number] cc: Marisol Boyce ACCOUNT MANAGEMENT SPECIALIST; Natasha Campo M.D. Patient Name: KIMMY MCARTHUR MR#: [id number] : 1945 Exam Date: 03/19/2024 Ordering Doctor: DR NATASHA CAMPO M.D. ECHOCARDIOGRAM REPORT 8 PROCEDURE: CA ECHO [...] 1.58 mm[Hg], 1.34 mm[Hg] Mean Velocity: 0.59 (more content not included)...TBHRadiology, Radiologist, MD - 03/19/2024 [place] [address] Cardiology Report Signed Patient: KIMMY MCARTHUR MR#: [id number] : 1945 Acct:[id number] Age/Sex: 78 / M ADM Date: 03/19/24 Loc: CARD Attending Dr: Natasha Campo M.D. Ordering Physician: Natasha Campo M.D. Date of Service: 03/19/24 Procedure(s): CA echo doppler complete Accession Number(s): [id number] cc: Marisol Boyce NP; Natasha Campo M.D. Patient Name: KIMMY MCARTHUR MR#: [id number] : 1945 Exam Date: 03/19/2024 Ordering Doctor: DR NATASHA CAMPO M.D. ECHOCARDIOGRAM REPORT 8 PROCEDURE: CA ECHO [...] Pressure: 78.48 ml, 78.48 ml Dictated by: Mishel Silveira M.D. on 03/19/2024 at 18:45 Approved by: Mishel Silveira M.D. on 03/19/2024 at 18:57 Dictated By: MISHEL SILVEIRA Signed By: 03/19/241857 DD/ 56 TD/TT: Clerical Proofreader: NOMS HealthcareRadiology Study observation (narrative)[facility] ECHO DOPPLER COMPLETEOrdered By: Radiologist Radiology on 38-49-4257VCUY Healthcare Work Phone: Office Visiton [phone]-up [id number] Kimmy Mcarthur 1945 M Date Provider Department Center 03/14/2024 [facility] Family History Problem Relation Age of Onset Cancer Father Diabetes Father Family Status - Relation Status Age at Father Level of Service:[address] [place] OFFICE/OUTPATIENT ESTABLISHED MOD MDM 30 [facility] HospitalML[facility] HEMOGLOBIN A1Con 12-24-1618Qsffbmt [Mass/Vol]180 mg/dLHCA Midwest DivisionHbA1c (Bld) [Mass fraction]7.9 %High4.5 - 6.2 %[facility] HealthcareComment on above:ADA RECOMMENDED LIMIT 4.0 - 6.0 ADA THERAPEUTIC TARGET < 7.0 ACTION SUGGESTED > 7.0 Interpretation and review of laboratory resultsAbMiddlesex Hospital HealthcareCLINISYNC [facility] Morfoslcfy40qh 60-02-571462Ppw LDL from 12/07/2023 is 46. Would you still like for me to try to get Leqvio approved for him?[facility] SystemNM TONE PERF SPECT REST STRon 42-87-2929QwvOxford, [place] [address] Nuclear Medicine Report Signed Patient: KIMMY MCARTHUR MR#: [id number] : 1945 Acct:[id number] Age/Sex: 78 / M ADM Date: 12/09/23 Loc: NM Attending Dr: Natasha Campo M.D. Ordering Physician: Natasha Campo M.D. Date of Service: 12/09/23 Procedure(s): NM tone perf SPECT rest str Accession Number(s): [id number] cc: Marisol Boyce NP; Natasha Campo M.D. Patient Name: KIMMY MCARTHUR MR#: [id number] : 1945 Exam Date: 12/09/2023 Ordering Doctor: DR Natasha Campo M.D. RADIOLOGY REPORT PROCEDURE: NM TONE PERF SPECT REST STR COMPARISON: NM TONE PERF SPECT REST STR, 01/12/2023. 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 Mid-inferior. [place]. SIZE: Medium (3-4 segments). SEVERITY: Moderate. TYPE: [...] 4. Pending exercise test results Dictated by: Miguel Sorto MD on 12/09/2023 at 14:50 Approved by: Miguel Sorto MD on 12/09/2023 at 14:53 Dictated By: Miguel Sorto M.D. Signed By: 12/09/23 1454 DD/ 1453 TD/TT: Clerical Proofreader:EUGENIEHRadiology, Radiologist, - 12/09/2023 [address] [place] [id number] Nuclear Medicine Report Signed Patient: KIMMY MCARTHUR MR#: [id number] : 1945 Acct:[id number] Age/Sex: 78 / M ADM Date: 12/09/23 Loc: NM Attending Dr: Natasha Campo M.D. Ordering Physician: Natasha Campo M.D. Date of Service: 12/09/23 Procedure(s): NM tone perf SPECT rest str Accession Number(s): [id number] cc: Marisol Boyce NP; Natasha Campo M.D. Patient Name: KIMMY MCARTHUR MR#: [id number] : 1945 Exam Date: 12/09/2023 Ordering Doctor: DR Natasha Campo M.D. RADIOLOGY REPORT PROCEDURE: NM TONE PERF SPECT REST STR COMPARISON: NM TONE PERF SPECT REST STR, 01/12/2023. 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 Mid-inferior. [place]. SIZE: Medium (3-4 segments). SEVERITY: Moderate. TYPE: [...] 4. Pending exercise test results Dictated by: Miguel Sorto MD on 12/09/2023 at 14:50 Approved by: Miguel Sorto MD on 12/09/2023 at 14:53 Dictated By: Miguel Sorto M.D. Signed By: 12/09/23 1454 DD/ TD/TT: Clerical Proofreader: [facility] DivisionRadiology Study observation (narrative)[facility] TONE PERF SPECT REST STROrdered By: Radiologist Radiology on 82-43-0152CTRRHCA Midwest Division Work Phone: basic metabolic 1998 panelon 49-36-0712Fskbl gap [Moles/Vol]8 mmol/L5 - 15 mmol/LNOMS HealthcareCalcium [Mass/Vol]9.2 mg/dL8.5 - 10.5 mg/dLENCOMPASS HEALTH HealthcareChloride [Moles/Vol]104 mmol/L98 - 109 mmol/LNOMS HealthcareCO2 [Moles/Vol]27 mmol/L22 - 32 mmol/LNOMS HealthcareCreatine [Mass/Vol]1.01 mg/dL0.60 - 1.30 mg/dLHCA Midwest DivisionComment on above:METHOD TRACEABLE TO MTMS STANDARDGFR/1.73 sq M.predicted among non-blacks MDRD (S/P/Bld) [Vol rate/Area]77 mL/min/{1.73_m2}- Northeast Health SystemComment on above: Reported eGFR is based on the CKD-EPI 2020 equation that does not use a race coefficient. PERFORMED AT [facility] [address],[place] [address] Glucose [Mass/Vol]187 mg/iSAruz31 - 99 mg/dLHCA Midwest DivisionInterpretation and review of laboratory resultsAbnormalHCA Midwest DivisionPotassium [Moles/Vol]4.2 mmol/L3.5 - 5.0 mmol/LNOMS HealthcareSodium [Moles/Vol]139 mmol/L134 - 146 mmol/LNOMS HealthcareUrea nitrogen [Mass/Vol]22 mg/dL5 - 27 mg/dLMartin General HospitalComprehensive metabolic panelon 06-72-2839Vtstwnu [Mass/Vol]4.0 g/dL3.2 - 5.3 g/dLHCA Midwest DivisionALP [Catalytic activity/Vol]89 U/L39 - 130 U/L [facility] DivisionALT No additional P-5'-P [Catalytic activity/Vol]15 U/L0 - 40 U/L [facility] DivisionAnion gap [Moles/Vol]9 mmol/L5 - 15 mmol/LNOMS HealthcareAST [Catalytic activity/Vol]13 U/L0 - 41 U/LNOMS HealthcareBilirubin [Mass/Vol]1.1 mg/dL0.3 - 1.2 mg/dLNOMS HealthcareCalcium [Mass/Vol]8.9 mg/dL8.5 - 10.5 mg/dL NOMS HealthcareChloride [Moles/Vol]104 mmol/L98 - 109 mmol/LNOMS HealthcareCO2 [Moles/Vol]28 mmol/L22 - 32 mmol/LNOMS HealthcareCreatine [Mass/Vol]0.80 mg/dL 0.60 - 1.30 mg/dLNOMT HealthcareComment on above:METHOD TRACEABLE TO IDMS STANDARDGFR/1.73 sq M.predicted among non-blacks MDRD (S/P/Bld) [Vol rate/Area] mL/min/{1.73_m2}- PINFNOMT HealthcareComment on above: Reported eGFR is based on the CKD-EPI 2020 equation that does not use a race coefficient. PERFORMED AT [facility] [address],[place] [address] Glucose [Mass/Vol]90 mg/dL65 - 99 mg/dLNOMS HealthcarePotassium [Moles/Vol]3.2 mmol/LLow3.5 - 5.0 mmol/LNOMS HealthcareProtein [Mass/Vol]6.3 g/dL6.0 - 8.0 g/dL NOMS HealthcareSodium [Moles/Vol]141 mmol/L134 - 146 mmol/LNOMS HealthcareUrea nitrogen [Mass/Vol]20 mg/dL5 - 27 mg/dLNOMT HealthcareNo Panel Informationon 13-72-3219Yalenkjzclxkun and review of laboratory resultsAbnormalNOMS Healthcare NOMS HealthcareUrinalysis, manual onlyon 96-45-5382Kkpjowgiv Ql (U)Negative NegativeNOMS HealthcareColor (U)YELLOWYELLOWNOMS HealthcareEpithelial cells Auto (Urine sed) [#/Area]<1NOMS HealthcareGlucose (U) [Mass/Vol]mg/dLAbnormal Negative mg/dLNOMS HealthcareHemoglobin Auto test strip Ql (U)NegativeNegative NOMS HealthcareHyaline casts (Urine sed) [#/Area]1 /[LPF]NOMS HealthcareKetones (U) [Mass/Vol]NegativeNegative mg/dLNOMS HealthcareLeukocyte esterase Auto test strip Ql (U)NegativeNegativeNOMS HealthcareComment on above:HIGH CONCENTRATIONS OF GLUCOSE MAY DECREASE THE REACTIVITY OF THE DIPSTICK LEUKOCYTE TEST PAD.Mucus Ql (Urine sed)PRESENTAbnormalNONENOMS HealthcareNitrite Auto test strip Ql (U) NegativeNegativeNOMS HealthcarepH (U)5.5 [pH]5.0 - 8.5NOMS HealthcareProtein (U) [Mass/Vol]TraceAbnormalNegative mg/dLNOMS HealthcareRBC Auto (Urine sed) [#/Area]1[facility] [facility] [place] HealthcareSpecific gravity Refractometry automated (U) [Rel density]1.0231.003 - 1.035NOMS HealthcareTurbidity Ql (U)CLEARCLEARNOMS HealthcareUrobilinogen Qn (U)<1.1NINFNOMS HealthcareWBC Auto (Urine sed) [#/Area]1NCenterPointe HospitalCBC AUTO DIFFon [id number] #0.0 103/ulNormal0.0-0.1 [facility] HospitalComment on above:Performed By: #### CBC #### [facility] [address] [address] [address] Enoch SteinBasophils/100 WBC (Bld)0.6 %Normal0.2-2.0[facility] Comment on above:Performed By: #### CBC #### [facility] [address] [address] [address] Enoch Kowalski #0.2 103/ulNormal0.0-0.7The [facility] CenterComment on above: Performed By: #### CBC #### [facility] [address] [address] [address] Enoch Sosaosinophils/100 WBC (Bld)2.9 %Normal0.9-7.0[facility] Comment on above:Performed By: #### CBC #### [facility] [address] [place] [address] Dr. Enoch Sosarythrocyte distribution width (RBC) [Ratio]13.7 %Hndflz27.0-15.0 [facility] HospitalComment on above:Performed By: #### CBC #### [facility] [address] [place] [address] Dr. Enoch SteinHematocrit (Bld) [Volume fraction]35.6 %Critically low42.0-54.0 The [facility] CenterComment on above:Performed By: #### CBC #### [facility] [address] [place] [address] Dr. Enoch SteinHemoglobin (Bld) [Mass/Vol]11.7 g/dLCritically low14.0-18.0The [facility] CenterComment on above:Performed By: #### CBC #### [facility] [address] [place] [address] Dr. Enoch Jordan #0.03 10e3/ulNormal0.00-0.03The [facility] CenterComment on above:Performed By: #### CBC #### [facility] [address] [place] [address] Dr. Enoch Jordan %0.5 %Normal0.0-0.5The [facility] CenterComment on above: Performed By: #### CBC #### [facility] [address] [place] [address] Dr. Enoch Tyler #2.2 103/ulNormal1.2-3.8The [facility] CenterCompine rest christian mental health services on above:Performed By: #### CBC #### [facility] [address] [place] [address] Dr. Enoch Lopezmphocytes/100 WBC (Bld)35.4 %Cxbwqr97.5-60.0The [facility] CenterComment on above:Performed By: #### CBC #### [facility] [address] [place] [address] Dr. Enoch HerzogUAL DIFF REQNONormalThe [facility] CenterComment on above: Performed By: #### CBC #### [facility] [address] [place] [address] Dr. Enoch Quinn (RBC) [Entitic mass]30.5 xjTtanrn60.9-34.0The [facility] CenterComment on above:Performed By: #### CBC #### [facility] [address] [address] [address] Enoch BenderHC (RBC) [Mass/Vol]32.9 g/lCSbuhjx21.9-35.2The [facility] CenterComment on above:Performed By: #### CBC #### [facility] [address] [address] [address] Enoch BenderV (RBC) [Entitic vol]92.7 hUXgtflu26.0-94.0The [facility] CenterComment on above:Performed By: #### CBC #### [facility] [address] [place] [address] Dr. Enoch Craft #0.5 103/ulNormal0.3-0.8The [facility] CenterComment on above:Performed By: #### CBC #### [facility] [address] [place] [address] Dr. Enoch Pringleocytes/100 WBC (Bld)7.6 %Normal1.7-12.0[facility] Comment on above:Performed By: #### CBC #### [facility] [address] [place] [address] Dr. Enoch Levi #3.3 103/ulNormal1.4-6.5The [facility] CenterComment on above:Performed By: #### CBC #### [facility] [address] [address] [address] Enoch Gaoutrophils/100 WBC (Bld)53.0 %Eevlzo55.0-75.0The [facility] CenterComment on above:Performed By: #### CBC #### [facility] [address] [place] [address] Dr. Enoch Garcialet mean volume (Bld) [Entitic vol]9.4 fLCritically low 9.5-13.5The [facility] CenterComment on above:Performed By: #### CBC #### [facility] [address] [place] [address] Dr. Enoch SteinPLT225 103/hdDlqjrn215-128Wrg [facility] CenterComment on above: Performed By: #### CBC #### [facility] [address] [address] [address] Enoch SteinRBC3.84 106/ulCritically low4.70-6.10The [facility] CenterComment on above:Performed By: #### CBC #### [facility] [address] [address] [address] Enoch SteinWBC6.2 103/ulNormal4.0-11.0The [facility] CenterComment on above: Performed By: #### CBC #### [facility] [address] [address] [address] Enoch SosaCHOCARDIOrquidea M/2D COMPLETEon [id number] M/2D COMPLETE Patient: KIMMY MCARTHUR Exam Date: 06/11/2022 : 1945 Gender:M Ordering : MARCO CONDON Admission #: [id number] Family : [facility] Order #: [id number] CLICK HERE TO VIEW EXAM ECHOCARDIOGRAM REPORT PROCEDURE: CARDIO PULMONARY ECHOCARDIO M/2D COMP INDICATIONS: Dyspnea on exertion, post-COVID chronic dyspnea, [place], PTCA, hypertension, diabetes COMPARISON: None. DESCRIPTION: COMPLETE [...] by: Natasha Campo M.D. on 06/11/2022 at 14:32NoAdena Pike Medical CenterFERRITINon 80-77-7078Yghduezk [Mass/Vol]52.0 ng/hMRvpkdw88.0-388.0The [facility] CenterComment on above:Performed By: #### FERR, IRON, VITB12 #### [facility] [address] [place] [address] Dr. Enoch SteinGLYCOHEMOGLOBIN A1Con [id number] RECOMMENDATIONSEE BELOWNormal The [facility] CenterComment on above:Result Comment: ADA RECOMMENDED LIMIT 4.0 - 6.0 ADA THERAPEUTIC TARGET < 7.0 ACTION SUGGESTED > 7.0Performed By: #### FERR, IRON, VITB12 #### [facility] [address] [address] [address] Enoch SteinGlucose [Mass/Vol]180 mg/dLNoAdena Pike Medical CenterComment on above:Performed By: #### FERR, IRON, VITB12 #### [facility] [address] [place] [address] Dr. Enoch SteinHbA1c (Bld) [Mass fraction]7.9 %Critically high4.5-6.2The [facility] CenterComment on above:Performed By: #### FERR, IRON, VITB12 #### [facility] [address] [address] [address] Enoch Jacobs [id number] [Mass/Vol]86.0 ug/ySLwsuql45.0-175.0[facility] HospitalComment on above:Performed By: #### FERR, IRON, VITB12 #### [facility] [address] [place] [address] Dr. Enoch Madden PROFILEon [id number]-HDL RATIO NORMSEE Madison HealthComment on above:Result Comment: 3.3 - 4.4 LOW RISK 4.4 - 7.1 AVERAGE RISK 7.1 - 11.0 MODERATE RISK >11.0 HIGH RISKPerformed By: #### FERR, IRON, VITB12 #### [facility] [address] [place] [address] Dr. Enoch Rajputesterol [Mass/Vol]113 mg/dLNormal<=200The [facility] Comment on above:Performed By: #### FERR, IRON, VITB12 #### [facility] [address] [place] [address] Dr. Enoch Rajputesterol in HDL [Mass/Vol]52 mg/iFTrwjsw95-81IkwMemorial Health System Selby General HospitalCompine rest christian mental health services on above:Performed By: #### FERR, IRON, VITB12 #### [facility] [address] [place] [address] Dr. Enoch SteinCholesterol in LDL [Mass/Vol]47.0 mg/dLShelby Memorial HospitalComment on above:Performed By: #### FERR, IRON, VITB12 #### [facility] [address] [place] [address] Dr. Enoch Roman.total/Cholesterol in HDL [Mass ratio]2.2 {ratio} NormalMemorial Health System Selby General HospitalComment on above:Performed By: #### FERR, IRON, VITB12 #### [facility] [address] [place] [address] Dr. Enoch Alvares NORMAL> or = 60 mg/dl - LOW CARDIOVASCULAR RISK <40 mg/dl - HIGH CARDIOVASCULAR RISKShelby Memorial HospitalComment on above:Performed By: #### FERR, IRON, VITB12 #### [facility] [address] [place] [address] Dr. Enoch Parra CALC NORMALSEE BELOWNoAdena Pike Medical CenterComment on above:Result Comment: <100 mg/dl OPTIMAL 100 - 129 mg/dl NEAR OR ABOVE OPTIMAL 130 - 159 mg/dl BORDERLINE HIGH 160 - 189 mg/dl HIGH >190 mg/dl VERY HIGH Performed By: #### FERR, IRON, VITB12 #### [facility] [address] [place] [address] Dr. Enoch SteinTriglyceride [Mass/Vol]70 mg/dLNormal<=150The [facility] Comment on above:Performed By: #### FERR, IRON, VITB12 #### [facility] [address] [place] [address] Dr. Enoch SteinVLDL CALC14.0 mg/dLNoAdena Pike Medical CenterComment on above: Performed By: #### FERR, IRON, VITB12 #### [facility] [address] [place] [address] Dr. Enoch Miller, RAND URon 48-90-8629dDCR<1.3Normal<=30.0The [facility] CenterComment on above:Performed By: #### MALBR #### [facility] [address] [place] [address] Dr. Enoch SteinPROF 14(COMP METB)on 85-37-7584Sroabjo [Mass/Vol]3.7 g/dLNormal 3.4-5.0The [facility] CenterComment on above:Performed By: #### FERR, IRON, VITB12 #### [facility] [address] [place] [address] Dr. Enoch SteinAlbumin/Globulin [Mass ratio]1.2 {ratio}NormalThe [facility] CenterComment on above:Performed By: #### FERR, IRON, VITB12 #### [facility] [address] [address] [address] Enoch Singh [Catalytic activity/Vol]90 U/RIvcvji92-018Fab [facility] CenterComment on above:Performed By: #### FERR, IRON, VITB12 #### [facility] [address] [place] [address] Dr. Enoch Forrester [Catalytic activity/Vol]34 U/PNfcgrl01-26Vmg [facility] CenterComment on above:Performed By: #### FERR, IRON, VITB12 #### [facility] [address] [place] [address] Dr. Enoch Rosado gap [Moles/Vol]14.8 mmol/LNormalThe [facility] Comment on above:Performed By: #### FERR, IRON, VITB12 #### [facility] [address] [place] [address] Dr. Enoch SteinAST [Catalytic activity/Vol]22 U/NXxgbqy00-49Qow [facility] CenterComment on above:Performed By: #### FERR, IRON, VITB12 #### [facility] [address] [place] [address] Dr. Enoch SteinBilirubin [Mass/Vol]0.6 mg/dLNormal0.2-1.0The [facility] Comment on above:Performed By: #### FERR, IRON, VITB12 #### [facility] [address] [place] [address] Dr. Enoch SteinCalcium [Mass/Vol]9.7 mg/dLNormal8.5-10.1[facility] Comment on above:Performed By: #### FERR, IRON, VITB12 #### [facility] [address] [place] [address] Dr. Enoch SteinChloride [Moles/Vol]105 mmol/RBxrvoq71-987Wbl [facility] Comment on above:Performed By: #### FERR, IRON, VITB12 #### [facility] [address] [place] [address] Dr. Enoch SteinCO2 [Moles/Vol]26.7 mmol/XSeeuvh42.0-32.0The [facility] Comment on above:Performed By: #### FERR, IRON, VITB12 #### [facility] [address] [address] [address] Enoch SteinCreatinine [Mass/Vol]0.78 mg/dLNormal0.70-1.30The [facility] CenterComment on above:Performed By: #### FERR, IRON, VITB12 #### [facility] [address] [place] [address] Dr. Enoch SosaGFR-AF COMORAN>60Normal>=60The [facility] CenterComment on above:Performed By: #### FERR, IRON, VITB12 #### [facility] [address] [place] [address] Dr. Enoch Lao-NON AF COMORAN>60Normal>=60The [facility] CenterComment on above:Performed By: #### FERR, IRON, VITB12 #### [facility] [address] [place] [address] Dr. Enoch SteinGlobulin (S) [Mass/Vol]3.2 g/dLNormalThe [facility] CenterComment on above:Performed By: #### FERR, IRON, VITB12 #### [facility] [address] [place] [address] Dr. Enoch StienGlucose [Mass/Vol]179 mg/dLCritically exqc59-609WdsMemorial Health System Selby General HospitalComment on above:Performed By: #### FERR, IRON, VITB12 #### [facility] [address] [place] [address] Dr. Enoch SteinPotassium [Moles/Vol]4.5 mmol/LNormal3.5-5.1[facility] Comment on above:Performed By: #### FERR, IRON, VITB12 #### [facility] [address] [place] [address] Dr. Enoch SteinProtein [Mass/Vol]6.9 g/dLNormal6.4-8.2[facility] Comment on above:Performed By: #### FERR, IRON, VITB12 #### [facility] [address] [address] [address] Enoch Sealsum [Moles/Vol]142 mmol/XSgoxlo923-949JwpMemorial Health System [facility] Hospital Comment on above:Performed By: #### FERR, IRON, VITB12 #### [facility] [address] [address] [address] Enoch Wallace nitrogen [Mass/Vol]19.0 mg/dLCritically high7.0-18.0[facility] HospitalComment on above:Performed By: #### FERR, IRON, VITB12 #### [facility] [address] [address] [address] Enoch Wallace nitrogen/Creatinine [Mass ratio]24.4 mg/mgNoalThCleveland Clinic Medina HospitalComment on above:Performed By: #### FERR, IRON, VITB12 #### [facility] [address] [place] [address] Dr. Enoch Bassett RANDOM W/MICROSCOPICon 71-96-6643QTAJUNUDEAMF SEENNormalNONE SEENMemorial Health System Selby General HospitalCompine rest [facility] mental [facility] services on above:Performed By: #### UAMIC #### [facility] [address] [address] [address] Enoch Suarez Ql (U)NegativeNormalNEGATIVEMemorial Health System [facility] Comment on above:Performed By: #### UAMIC #### [facility] [address] [place] [address] Dr. Enoch Garcia SEENNormalNONE SEENMemorial Health System Selby General HospitalComment on above:Performed By: #### UAMIC #### [facility] [address] [place] [address] Dr. Enoch Zurita (U)CLEARNormalCLEARMemorial Health System Selby General HospitalComment on above: Performed By: #### UAMIC #### [facility] [address] [address] [address] Enoch Atkins (U)LT. YELLOWNormalYELLOWMemorial Health System Selby General HospitalComment on above:Performed By: #### UAMIC #### [facility] [address] [place] [address] Dr. Enoch SteinCrystals LM Nom (Urine sed)NONE SEENNormalNONE SEENMemorial Health System Selby General HospitalComment on above:Performed By: #### UAMIC #### [facility] [address] [place] [address] Dr. Kendall ChangEpithelial cells LM Ql (Urine sed)NONE SEENNormalNONE SEEN /RARE The [facility] CenterComment on above:Performed By: #### UAMIC #### [facility] [address] [address] [address] Enoch SteinGlucose Ql (U)250 mg/dlAbnormalNEGLima City Hospital Comment on above:Performed By: #### UAMIC #### [facility] [address] [place] [address] Dr. Enoch SteinHemoglobin Ql (U)NegativeNormalNEGLima City Hospital Comment on above:Performed By: #### UAMIC #### [facility] [address] [place] [address] Dr. Enoch SteinKetones Ql (U)NegativeNormalNEGATIVEMemorial Health System Selby [facility] HospitalCompine rest [facility] services on above:Performed By: #### UAMIC #### [facility] [address] [place] [address] Dr. Enoch SteinLEUKOCYTESNegativeNormalNEGLima City HospitalCompine rest [facility] mental health services on above:Performed By: #### UAMIC #### [facility] [address] [place] [address] Dr. Enoch SteinMUCOUSTRACEAbnormalNONE SEENMemorial Health System Selby General HospitalComment on above:Performed By: #### UAMIC #### [facility] [address] [place] [address] Dr. Enoch SteinNitrite Ql (U)NegativeNormalNEGATIVEMemorial Health System Selby General HospitalCompine rest [facility] mental [facility] services on above:Performed By: #### UAMIC #### [facility] [address] [place] [address] Dr. Enoch SteinpH (U)5.5 [pH]Normal5-9[facility] HospitalComment on above: Performed By: #### UAMIC #### [facility] [address] [place] [address] Dr. Enoch SteinRBCNONE SEENAbnormal0-2The [facility] CenterComment on above: Performed By: #### UAMIC #### [facility] [address] [place] [address] Dr. Enoch SteinSPEC GRAVITY1.907Azeisz2.005-<=1.025The [facility] CenterComment on above:Performed By: #### UAMIC #### [facility] [address] [place] [address] Dr. Enoch SteinUA PROTEINNegativeNormalNEGATIVE/ TRACEThe [facility] Comment on above:Performed By: #### UAMIC #### [facility] [address] [place] [address] Dr. Enoch SteinUrobilinogen Qn (U)0.2 {Reilly'U}/dLNormal0.2 - 1.0The [facility] CenterComment on above:Performed By: #### UAMIC #### [facility] [address] [place] [address] Dr. Enoch SteinWBCNONE SEENNormalNONE SEENThe [facility] CenterComment on above: Performed By: #### UAMIC #### [facility] [address] [place] [address] Dr. Enoch SteinVITAMIN B12on 81-75-1407Fqikdfqoy (Vitamin B12) [Mass/Vol]413.0 pg/eZByctql273.0-986.0The [facility] CenterComment on above:Performed By: #### FERR, IRON, VITB12 #### [facility] [address] [place] [address] Dr. Enoch SteinCT ABD/PELV W CONon 73-77-9243RD ABD/PELV W CONEXAMINATION: CT ABD/PELV W CON HISTORY: Epigastric pain [...] Electronically authenticated by: SANJAY REECE Date: 2022-01-06 16:24Shelby Memorial HospitalAMYLASEon [id number] [Catalytic activity/Vol]55 U/L Rifnsw84-099Laj [facility] CenterComment on above:Performed By: #### FERR, IRON, VITB12 #### [facility] [address] [address] [address] Enoch Paul AUTO DIFFon [id number] #0.0 103/ulNormal0.0-0.1The [facility] CenterComment on above:Performed By: #### FERR, IRON, VITB12 #### [facility] [address] [address] [address] Enoch Davilasophils/100 WBC (Bld)0.5 %Normal0.2-2.0The [facility] Comment on above:Performed By: #### FERR, IRON, VITB12 #### [facility] [address] [address] [address] Enoch Kowalski #0.3 103/ulNormal0.0-0.7The [facility] Hospital of Columbusment on above: Performed By: #### FERR, IRON, VITB12 #### [facility] [address] [place] [address] Dr. Enoch Sosaosinophils/100 WBC (Bld)3.7 %Normal0.9-7.0[facility] Comment on above:Performed By: #### FERR, IRON, VITB12 #### [facility] [address] [place] [address] Dr. Enoch Sosarythrocyte distribution width (RBC) [Ratio]13.2 %Zgtjug38.0-15.0 The [facility] CenterComment on above:Performed By: #### FERR, IRON, VITB12 #### [facility] [address] [place] [address] Dr. Enoch SteinHematocrit (Bld) [Volume fraction]39.3 %Critically low42.0-54.0 The [facility] CenterComment on above:Performed By: #### FERR, IRON, VITB12 #### [facility] [address] [place] [address] Dr. Enoch SteinHemoglobin (Bld) [Mass/Vol]13.0 g/dLCritically low14.0-18.0The [facility] Hospital of Columbusment on above:Performed By: #### FERR, IRON, VITB12 #### [facility] [address] [place] [address] Dr. Enoch Jordan #0.04 10e3/ulCritically high0.00-0.03The [facility] Comment on above:Performed By: #### FERR, IRON, VITB12 #### [facility] [address] [place] [address] Dr. Enoch Jordan %0.5 %Normal0.0-0.5The [facility] Hospital of Columbusment on above: Performed By: #### FERR, IRON, VITB12 #### [facility] [address] [place] [address] Dr. Enoch Tyler #1.6 103/ulNormal1.2-3.8The Ed HospitalComment on above:Performed By: #### FERR, IRON, VITB12 #### [facility] [address] [place] [address] Dr. Enoch Lopezmphocytes/100 WBC (Bld)20.4 %Critically low20.5-60.0The [facility] CenterComment on above:Performed By: #### FERR, IRON, VITB12 #### [facility] [address] [place] [address] Dr. Enoch HerzogUAL DIFF REQNONormalThe [facility] CenterComment on above: Performed By: #### FERR, IRON, VITB12 #### [facility] [address] [place] [address] Dr. Enoch Bender (RBC) [Entitic mass]30.5 ghJyetbp83.9-34.0The [facility] CenterComment on above:Performed By: #### FERR, IRON, VITB12 #### [facility] [address] [place] [address] Dr. Enoch Bender (RBC) [Mass/Vol]33.1 g/xEHdqbjx39.9-35.2The [facility] CenterComment on above:Performed By: #### FERR, IRON, VITB12 #### [facility] [address] [place] [address] Dr. Enoch Bender (RBC) [Entitic vol]92.3 tEIywqdf90.0-94.0The [facility] Hospital [facility] Columbusment on above:Performed By: #### FERR, IRON, VITB12 #### [facility] [address] [place] [address] Dr. Enoch Craft #0.4 103/ulNormal0.3-0.8The [facility] Hospital of Columbusment on above:Performed By: #### FERR, IRON, VITB12 #### [facility] [address] [place] [address] Dr. Enoch Pringleocytes/100 WBC (Bld)4.7 %Normal1.7-12.0The [facility] Comment on above:Performed By: #### FERR, IRON, VITB12 #### [facility] [address] [place] [address] Dr. Enoch Levi #5.6 103/ulNormal1.4-6.5The [facility] CenterComment on above:Performed By: #### FERR, IRON, VITB12 #### [facility] [address] [place] [address] Dr. Enoch Gaoutrophils/100 WBC (Bld)70.2 %Eorlyb52.0-75.0The [facility] CenterComment on above:Performed By: #### FERR, IRON, VITB12 #### [facility] [address] [place] [address] Dr. Enoch Soto mean volume (Bld) [Entitic vol]10.2 fLNormal9.5-13.5The [facility] CenterComment on above:Performed By: #### FERR, IRON, VITB12 #### [facility] [address] [place] [address] Dr. Enoch SteinPLT192 103/ywPbixoy104-492Etx [facility] Columbusment on above: Performed By: #### FERR, IRON, VITB12 #### [facility] [address] [place] [address] Dr. Enoch SteinRBC4.26 106/ulCritically low4.70-6.10The [facility] Hospital of Columbusment on above:Performed By: #### FERR, IRON, VITB12 #### [facility] [address] [place] [address] Dr. Enoch SteinWBC8.0 103/ulNormal4.0-11.0The [facility] Hospital of Columbusment on above: Performed By: #### FERR, IRON, VITB12 #### [facility] [address] [place] [address] Dr. Enoch SteinCUALBERT URINEon [id number] URINECulture Observations: NO GROWTH.NormalThe [facility] CenterComment on above:Performed By: #### FERR, IRON, VITB12 #### [facility] [address] [place] [address] Dr. Enoch SteinGLYCOHEMOGLOBIN A1Con 31-00-1272ELY RECOMMENDATIONSEE BELOWNormal The [facility] CenterComment on above:Result Comment: ADA RECOMMENDED LIMIT 4.0 - 6.0 ADA THERAPEUTIC TARGET < 7.0 ACTION SUGGESTED > 7.0Performed By: #### A1C #### [facility] [address] [place] [address] Dr. Enoch SteinGlucose [Mass/Vol]166 mg/dLNormalThe [facility] CenterComment on above:Performed By: #### A1C #### [facility] [address] [place] [address] Dr. Enoch SteinHbA1c (Bld) [Mass fraction]7.4 %Critically high4.5-6.2The [facility] CenterComment on above:Performed By: #### A1C #### [facility] [address] [place] [address] Dr. Enoch SteinLIPASEon 93-95-0180Gmqkfq [Catalytic activity/Vol]86.0 U/LNormal 73.0-393.0The [facility] CenterComment on above:Performed By: #### FERR, IRON, VITB12 #### [facility] [address] [place] [address] Dr. Enoch SteinPROValery 14(COMP METB)on 73-97-8400Heoovgt [Mass/Vol]3.8 g/dLNormal 3.4-5.0The [facility] CenterComment on above:Performed By: #### FERR, IRON, VITB12 #### [facility] [address] [place] [address] Dr. Enoch SteinAlbumin/Globulin [Mass ratio]1.1 {ratio}NormalThe [facility] on above:Performed By: #### FERR, IRON, VITB12 #### [facility] [address] [place] [address] Dr. Enoch SteinALP [Catalytic activity/Vol]101 U/EXwcmha60-030Rgv [facility] Columbusment on above:Performed By: #### FERR, IRON, VITB12 #### [facility] [address] [address] [address] Enoch Forrester [Catalytic activity/Vol]25 U/AParnkd64-08Avr [facility] CenterComment on above:Performed By: #### FERR, IRON, VITB12 #### [facility] [address] [address] [address] Enoch Joelon gap [Moles/Vol]15.2 mmol/LNormalThe [facility] Comment on above:Performed By: #### FERR, IRON, VITB12 #### [facility] [address] [place] [address] Dr. Enoch SteinAST [Catalytic activity/Vol]14 U/LCritically ney13-23Twi [facility] CenterComment on above:Performed By: #### FERR, IRON, VITB12 #### [facility] [address] [place] [address] Dr. Enoch SteinBilirubin [Mass/Vol]1.0 mg/dLNormal0.2-1.0The [facility] Comment on above:Performed By: #### FERR, IRON, VITB12 #### [facility] [address] [place] [address] Dr. Enoch SteinCalcium [Mass/Vol]9.4 mg/dLNormal8.5-10.1[facility] Comment on above:Performed By: #### FERR, IRON, VITB12 #### [facility] [address] [place] [address] Dr. Enoch SteinChloride [Moles/Vol]104 mmol/DDnyefz89-938Fny [facility] Comment on above:Performed By: #### FERR, IRON, VITB12 #### [facility] [address] [place] [address] Dr. Enoch SteinCO2 [Moles/Vol]27.1 mmol/FBagkqo43.0-32.0The [facility] Comment on above:Performed By: #### FERR, IRON, VITB12 #### [facility] [address] [place] [address] Dr. Enoch SteinCreatinine [Mass/Vol]1.23 mg/dLNormal0.70-1.30The [facility] CenterComment on above:Performed By: #### FERR, IRON, VITB12 #### [facility] [address] [place] [address] Dr. Enoch SosaGFR-AF COMORAN>60Normal>=60The [facility] CenterComment on above:Performed By: #### FERR, IRON, VITB12 #### [facility] [address] [address] [address] Enoch SosaGFR-NON AF OCIHZLSV96 mL/min/1.66x4Qlimirxwvi low>=60The [facility] CenterComment on above:Performed By: #### FERR, IRON, VITB12 #### [facility] [address] [place] [address] Dr. Enoch SteinGlobulin (S) [Mass/Vol]3.4 g/dLNormalThe [facility] CenterComment on above:Performed By: #### FERR, IRON, VITB12 #### [facility] [address] [place] [address] Dr. Enoch SteinGlucose [Mass/Vol]165 mg/dLCritically ipzk69-578Ssn [facility] CenterComment on above:Performed By: #### FERR, IRON, VITB12 #### [facility] [address] [place] [address] Dr. Enoch SteinPotassium [Moles/Vol]5.3 mmol/LCritically high3.5-5.1The [facility] Columbusment on above:Performed By: #### FERR, IRON, VITB12 #### [facility] [address] [place] [address] Dr. Enoch SteinProtein [Mass/Vol]7.2 g/dLNormal6.4-8.2The [facility] Comment on above:Performed By: #### FERR, IRON, VITB12 #### [facility] [address] [place] [address] Dr. Enoch SteinSodium [Moles/Vol]141 mmol/PIunoid960-105Wzu [facility] Comment on above:Performed By: #### FERR, IRON, VITB12 #### [facility] [address] [address] [address] Enoch Wallace nitrogen [Mass/Vol]26.0 mg/dLCritically high7.0-18.0[facility] on above:Performed By: #### FERR, IRON, VITB12 #### [facility] [address] [place] [address] Dr. Enoch Wallace nitrogen/Creatinine [Mass ratio]21.1 mg/mgNormalThe [facility] CenterComment on above:Performed By: #### FERR, IRON, VITB12 #### [facility] [address] [place] [address] Dr. Enoch Herring RATE [place]EN 95-87-6286TKB RATE4 mm/hrNormal<=20The [facility] CenterComment on above:Performed By: #### SEDR #### [facility] [address] [place] [address] Dr. Enoch Bassett RANDOM W/MICROSCOPICon 23-41-2093TAUZFRVWFUWOSYcdhfitdBLBK SEENMemorial Health System Sel[facility] HospitalCompine rest [facility] on above:Performed By: #### UAMIC #### [facility] [address] [place] [address] Dr. Enoch Truongirubin Ql (U)SMALLAbnormalNEGATIVEMemorial Health System Selby General HospitalCompine rest [facility] on above:Performed By: #### UAMIC #### [facility] [address] [place] [address] Dr. Enoch Herrera OX CRYSTALSFEWShelby Memorial HospitalCompine rest [facility] on above: Performed By: #### UAMIC #### [facility] [address] [place] [address] Dr. Enoch SteinCASTSEENAbnormalNONE [facility] on above: Performed By: #### UAMIC #### [facility] [address] [place] [address] Dr. Enoch Ríosarity (U)CLEARNormalCLEARMemorial Health System Selby General HospitalCompine rest [facility] on above: Performed By: #### UAMIC #### [facility] [address] [address] [address] Enoch Rdzlor (U)DK. YELLOWNormalYELLOWMemorial Health System Selby General HospitalComment on above:Performed By: #### UAMIC #### [facility] [address] [address] [address] Enoch SteinCrystals LM Nom (Urine sed)SEENAbnormalNONE SEENMemorial Health System Selby General HospitalComment on above:Performed By: #### UAMIC #### [facility] [address] [address] [address] Kendall ChangEpithelial cells LM Ql (Urine sed)RARENormalNONE SEEN /RAREThe [facility] CenterComment on above:Performed By: #### UAMIC #### [facility] [address] [place] [address] Dr. Enoch SteinGlucose Ql (U)NegativeNormalNEGATIVEMemorial Health System Selby General HospitalComment on above:Performed By: #### UAMIC #### [facility] [address] [address] [address] Enoch SteinHemoglobin Ql (U)NegativeNormalNEGLima City Hospital Comment on above:Performed By: #### UAMIC #### [facility] [address] [address] [address] Enoch SteinHYALINE CASTMODERATENoAdena Pike Medical CenterComment on above: Performed By: #### UAMIC #### [facility] [address] [address] [address] Enoch SetinKetones Ql (U)15 mg/dlAbnormalNEGLima City Hospital Comment on above:Performed By: #### UAMIC #### [facility] [address] [address] [address] Enoch SteinLEUKOCYTESNegativeNormalNEGATIVEMemorial Health System Selby General HospitalComment on above:Performed By: #### UAMIC #### [facility] [address] [place] [address] Dr. Enoch SteinMUCOUSMODERATEAbnormalNONE SEENThe Ed HospitalComment on above:Performed By: #### UAMIC #### [facility] [address] [address] [address] Enoch Hallman Ql (U)NegativeNormalNEGATIVEThe [facility] CenterComment on above:Performed By: #### UAMIC #### [facility] [address] [address] [address] Enoch SteinpH (U)6.0 [pH]Normal5-9The [facility] CenterComment on above: Performed By: #### UAMIC #### [facility] [address] [place] [address] Dr. Enoch SteinXqspdUEX0-8Mixont1-6Enl [facility] CenterComment on above:Performed By: #### UAMIC #### [facility] [address] [place] [address] Dr. Enoch Howard GRAVITY>=1.936Eaxmpenc3.005-<=1.025The [facility] Comment on above:Performed By: #### UAMIC #### [facility] [address] [place] [address] Dr. Enoch Bassett ASCTOGO188 mg/dlAbnormalNEGATIVE/ TRACEThe [facility] Comment on above:Performed By: #### UAMIC #### [facility] [address] [place] [address] Dr. Enoch Hansenbilinogen Qn (U)1.0 {Reilly'U}/dLNormal0.2 - 1.0The [facility] CenterComment on above:Performed By: #### UAMIC #### [facility] [address] [place] [address] Dr. Enoch SteinWBC0-2AbnormalNONE SEENThe [facility] CenterComment on above: Performed By: #### UAMIC #### [facility] [address] [place] [address] Dr. Enoch McgrathDIOrquidea M/2D COMPLETEon 32-97-6359ZBZIKFBPQX M/2D COMPLETE Patient: KIMMY MCARTHUR Exam Date: 10/14/2021 : 1945 Gender:M Ordering : DWAIN PORTILLO [facility] Admission #: [id number] Family : ELO BOYCE [facility] Order #: [id number] CLICK HERE TO VIEW EXAM ECHOCARDIOGRAM REPORT [...] by: Natasha Campo M.D. on 10/14/2021 at 16:57[facility] NECKon [id number] [facility] Department of Radiology [address] [place] [address] Patient Name: KIMMY MCARTHUR : 1945 Sex: M Age: Race: White Pt. Location: 392 Patient Status: D Ordered Date: 01/28/2021 4:35:00 PM Completed Date: 03/04/2021 10:46 AM Requesting Provider: ALEX REECE Attending Provider: ALEX REECE Report Copy To: PRABHJOT VILLATORO Signs & Symptoms: I65.29 Occlusion and stenosis of unspecified carotid artery I10 History: [place] patient will need labs Need Wed appt medicare [place] required [address] /i65.29 med nec passed *kw 02/04/21 Comments: Exam: [...] viewed on a separate workstation. The [place] Symptomatic Carotid Endarterectomy Trial (NASCET) method for [...] achievable Electronically signed: Troy Wadsworth. Transcribed by: [email or web address], User Resident: TROY WADSWORTH Electronically Signed by: TROY WADSWORTH @ 03/08/2021 08:19 AM I personally read this/these film(s) with this [facility] Vital Signs Date TimeVital SignValuePerforming EagvcruwyFfqivcil60-88-3890 11:07-0400Body abljkr477.9 cmMatthew Nienberg PA Work Phone: [facility] [employer] Sesyux32-05-6849 11:07-0400Body mass index (BMI) [Ratio]22.92 kg/y8Dpoejxj Nienberg PA Work Phone: [facility] [employer] Axjhbj41-25-1052 11:07-0400Body rfvcga61.66 kgMatthew Nienberg PA Work Phone: [facility] [employer] Dytbll01-97-6175 11:07-0400Diastolic blood xqitdink66 mm[Hg]Eric Barkleyenberg PA Work Phone: [facility]10-14-2025 11:07-0400Heart rate 54 /minMatthew Nienberg PA Work Phone: [facility]10-14-2025 11:07-0400 Respiratory rate20 /minMatthew Nienberg PA Work Phone: [facility]10-14-2025 11:07-2576ScC8% (BldA) [Mass fraction]97 %Eric Nienberg PA Work Phone: [facility]10-14-2025 11:07-0400Systolic blood mm[Hg]Eric Barkleyenberg PA Work Phone: [facility]10-09-2025 09:51-0400Body eeobbtncpgg65.1 [degF]Marisol Boyce ACCOUNT MANAGEMENT SPECIALIST-C Work Phone: [facility]10-09-2025 09:51-0400 Body mgoplo09.88 kgLisa Candelarioz ACCOUNT MANAGEMENT SPECIALIST-C Work Phone: [facility]10-09-2025 09:51-0400 Diastolic blood fhysvdjs05 mm[Hg]Marisol Candelarioz ACCOUNT MANAGEMENT SPECIALIST-C Work Phone: [facility]10-09-2025 09:51-0400 Heart rate54 /minLisa Aichholz ACCOUNT MANAGEMENT SPECIALIST-C Work Phone: [phone]10-09-2025 09:51-0400 Respiratory rate16 /minLisa Aichholz ACCOUNT MANAGEMENT SPECIALIST-C Work Phone: [phone]10-09-2025 09:51-0400 SaO2% (BldA) [Mass fraction]97 %Marisol Aichholz ACCOUNT MANAGEMENT SPECIALIST-C Work Phone: [phone]10-09-2025 09:51-0400 Systolic blood ewwywkaq730 mm[Hg]Marisol Aichholz ACCOUNT MANAGEMENT SPECIALIST-C Work Phone: [phone] [place], [place] [address]10-08-2025 11:07-0400 Body .16 kgLisa Aichholz ACCOUNT MANAGEMENT SPECIALIST-C Work Phone: [phone] [place], [place] [address]10-08-2025 11:07-0400 Diastolic blood mm[Hg]Marisol Aichholz ACCOUNT MANAGEMENT SPECIALIST-C Work Phone: [phone]10-08-2025 11:07-0400 Heart rate56 /minLisa Aichholz ACCOUNT MANAGEMENT SPECIALIST-C Work Phone: [phone]10-08-2025 11:07-0400 SaO2% (BldA) [Mass fraction]98 %Marisol Aichholz ACCOUNT MANAGEMENT SPECIALIST-C Work Phone: [phone]10-08-2025 11:07-0400 Systolic blood bnjpxucz883 mm[Hg]Marisol Aichholz ACCOUNT MANAGEMENT SPECIALIST-C Work Phone: [phone]09-10-2025 11:09-0400 Body .88 cmLisa Aichholz Work Phone: [phone]09-10-2025 11:09-0400 Body mass index (BMI) [Ratio]22.9 kg/m2Lisa Aichholz Work Phone: [phone]09-10-2025 11:09-0400 Body nltduhowgip81.8 [degF]Marisol Aichholz Work Phone: [phone]09-10-2025 11:09-0400 Body cklhol88.71 kgLisa Aichholz Work Phone: [phone]09-10-2025 11:09-0400 Diastolic blood rwtbdzuv64 mm[Hg]Marisol Aichholz Work Phone: [phone]09-10-2025 11:09-0400 Heart rate61 /minLisa Aichholz Work Phone: [phone]09-10-2025 11:09-0400 Respiratory rate18 /minLisa Aichholz Work Phone: [phone]09-10-2025 11:09-0400 SaO2% (BldA) [Mass fraction]97 %Marisol Aichholz Work Phone: [phone]09-10-2025 11:09-0400 Systolic blood qkoretge513 mm[Hg]Marisol Aichholz Work Phone: [phone]07-02-2025 08:53-0400 Body mass index (BMI) [Ratio]22.76 kg/m2Lisa Aichholz ACCOUNT MANAGEMENT SPECIALIST Work Phone: [facility] DivisionIhelirbmms39-12-5895 08:53-0400Body temperature 97.81 [degF]Marisol Aichholz ACCOUNT MANAGEMENT SPECIALIST Work Phone: [facility] DivisionEslatirwnc34-23-2506 08:53-0400Body rpnhco51.11 kgLisa Aichholz ACCOUNT MANAGEMENT SPECIALIST Work Phone: [facility] DivisionLtrcayafmv99-01-3791 08:53-0400Diastolic blood mm[Hg]Marisol Aichholz ACCOUNT MANAGEMENT SPECIALIST Work Phone: [facility] DivisionIlkvvncirs16-80-4536 08:53-0400Heart rate60 /min Marisol Aichholz ACCOUNT MANAGEMENT SPECIALIST Work Phone: [facility] DivisionSlmswkpilm36-01-4148 08:53-0400Respiratory rate18 /minLisa Chinoholz ACCOUNT MANAGEMENT SPECIALIST Work Phone: [facility] DivisionJjqkqvxdpy92-92-6433 08:53-4851JeR9% (BldA) [Mass fraction]98 %Marisollaura Palominoz ACCOUNT MANAGEMENT SPECIALIST Work Phone: [facility] DivisionOeegwwmwvj30-33-7058 08:53-0400Systolic blood vjojstyo022 mm[Hg]Marisol Candelarioz ACCOUNT MANAGEMENT SPECIALIST Work Phone: [facility] DivisionItbytcvvrm03-09-8773 10:37-0400Body mass index (BMI) [Ratio]22.43 kg/m2Jerisa Chinoholz ACCOUNT MANAGEMENT SPECIALIST Work Phone: [facility] DivisionCgolcacvxv47-41-8720 10:37-0400Body temperature 98.49 [degF]Marisol Palominoz ACCOUNT MANAGEMENT SPECIALIST Work Phone: [facility] DivisionVosrntxybi16-33-5587 10:37-0400Body uvjvqo53.03 kgJerisa Chinoholz ACCOUNT MANAGEMENT SPECIALIST Work Phone: [facility] DivisionLcjtwktalo94-46-4086 10:37-0400Diastolic blood iqsvsawh40 mm[Hg]Marisol Palominoz ACCOUNT MANAGEMENT SPECIALIST Work Phone: [facility] DivisionChtjlbwwpy55-18-3832 10:37-0400Heart rate51 /min Marisol Candelarioz ACCOUNT MANAGEMENT SPECIALIST Work Phone: [facility] DivisionAvplibhtum91-78-8086 10:37-0400Respiratory rate18 /minLisa Chinoholz ACCOUNT MANAGEMENT SPECIALIST Work Phone: [facility] DivisionWrsytowkiv22-13-5626 10:37-1800EmI9% (BldA) [Mass fraction]96 %Marisol Candelarioz ACCOUNT MANAGEMENT SPECIALIST Work Phone: [facility] DivisionEanaiirqeq05-75-4167 10:37-0400Systolic blood wioyueuf536 mm[Hg]Marisol Chinoholz ACCOUNT MANAGEMENT SPECIALIST Work Phone: [phone] [place], [place] [address]Krlbaikpky44-71-9361 09:26-0500Body bnypjb500.9 Shama Boyce ACCOUNT MANAGEMENT SPECIALIST Work Phone: [facility] DivisionQxetulcqgo50-46-3150 09:26-0500Body mass index (BMI) [Ratio]23.22 kg/m2Marisol Boyce ACCOUNT MANAGEMENT SPECIALIST Work Phone: [facility] DivisionUkgqdsifor99-72-6225 09:26-0500Body temperature 98.1 [degF]Marisol Boyce ACCOUNT MANAGEMENT SPECIALIST Work Phone: [facility] DivisionHjaaymqzve25-29-3037 09:26-0500Body .66 kgMarisol Boyce ACCOUNT MANAGEMENT SPECIALIST Work Phone: [facility] DivisionJfdquyxiep95-99-6671 09:26-0500Diastolic blood ciwjciku62 mm[Hg]Marisol Boyce ACCOUNT MANAGEMENT SPECIALIST Work Phone: [facility] DivisionZbsqdizcik96-45-1488 09:26-0500Heart rate57 /min Marisollaura Boyce ACCOUNT MANAGEMENT SPECIALIST Work Phone: [facility] DivisionUoawffibio69-57-7739 09:26-0500Respiratory rate18 /minLisa Boyce ACCOUNT MANAGEMENT SPECIALIST Work Phone: [facility] DivisionEztavcadnq70-73-2352 09:26-1060OgP5% (BldA) [Mass fraction]98 %Marisol Boyce ACCOUNT MANAGEMENT SPECIALIST Work Phone: [facility] DivisionAawwccjtuv10-84-2146 09:26-0500Systolic blood ixquewyz075 mm[Hg]Marisol Boyce ACCOUNT MANAGEMENT SPECIALIST Work Phone: [facility] DivisionUirszqdbkb02-21-9420 11:42-0500Body .9 cmGenejairojeffrey Koch APRN-SECURITY FLEX UTILITY OFFICER Work Phone: [facility]01-08-2025 11:42-0500Body mass index (BMI) [Ratio]23.79 kg/w8Hnmlwbdjeffrey Koch APRN-SECURITY FLEX UTILITY OFFICER Work Phone: [facility]01-08-2025 11:42-0500Body nvtxex56.56 kgMarlin Koch EFFICIENCY ENGINEER-SECURITY FLEX UTILITY OFFICER Work Phone: [facility]01-08-2025 11:42-0500Diastolic blood ighbrjmu59 mm[Hg]Marlin Koch EFFICIENCY ENGINEER-SECURITY FLEX UTILITY OFFICER Work Phone: [facility]01-08-2025 11:42-0500Heart rate 64 /minMarlin Koch EFFICIENCY ENGINEER-SECURITY FLEX UTILITY OFFICER Work Phone: [phone]01-08-2025 11:42-0500Systolic blood sfxrdebc876 mm[Hg]Marlin Koch EFFICIENCY ENGINEER-SECURITY FLEX UTILITY OFFICER Work Phone: [phone]12-09-2024 11:51-0500Body kjlhwe256.9 cmMarlin Koch EFFICIENCY ENGINEER-SECURITY FLEX UTILITY OFFICER Work Phone: [facility]12-09-2024 11:51-0500Body mass index (BMI) [Ratio]23.46 kg/k0SfswptxMarlin Koch EFFICIENCY ENGINEER-SECURITY FLEX UTILITY OFFICER Work Phone: [phone]12-09-2024 11:51-0500Body .47 kgMarlin Koch EFFICIENCY ENGINEER-SECURITY FLEX UTILITY OFFICER Work Phone: [phone]12-09-2024 11:51-0500Diastolic blood nkeejjpe73 mm[Hg]Marlin Koch EFFICIENCY ENGINEER-SECURITY FLEX UTILITY OFFICER Work Phone: [facility]12-09-2024 11:51-0500Systolic blood fpxmidwe958 mm[Hg]aMrlin Koch EFFICIENCY ENGINEER-SECURITY FLEX UTILITY OFFICER Work Phone: [facility]11-20-2024 13:15-0500Body .9 Shama Boyce ACCOUNT MANAGEMENT SPECIALIST Work Phone: [facility] DivisionDywgahardb34-14-7453 13:15-0500Body mass index (BMI) [Ratio]23.57 kg/m2Marisol Boyce ACCOUNT MANAGEMENT SPECIALIST Work Phone: [facility] DivisionXncpfuaokf47-35-6101 13:15-0500Body temperature 98.49 [degF]Marisol Aichholz ACCOUNT MANAGEMENT SPECIALIST Work Phone: [facility] DivisionApldfchyfr87-91-6648 13:15-0500Body .83 kgLisa Chinoholz ACCOUNT MANAGEMENT SPECIALIST Work Phone: [facility] DivisionBkngkqvvbz12-31-2086 13:15-0500Diastolic blood sekcdxbk75 mm[Hg]Marisol Chinoholz ACCOUNT MANAGEMENT SPECIALIST Work Phone: [facility] DivisionFospddhqlt68-50-0833 13:15-0500Heart rate51 /min Marisol Chinoholz ACCOUNT MANAGEMENT SPECIALIST Work Phone: [facility] DivisionHzmykbnock23-31-6954 13:15-0500Respiratory rate19 /minLisa Chinoholz ACCOUNT MANAGEMENT SPECIALIST Work Phone: [facility] DivisionPpuqwmsrwj15-91-9596 13:15-8946MyW7% (BldA) [Mass fraction]100 %Marisol Chinoholz ACCOUNT MANAGEMENT SPECIALIST Work Phone: [facility] DivisionZgexrrpzma25-32-9736 13:15-0500Systolic blood pkizhewh505 mm[Hg]Marisol Chinoholz ACCOUNT MANAGEMENT SPECIALIST Work Phone: [facility] DivisionFudzdsnntc29-42-6811 09:05-0400Body mass index (BMI) [Ratio]23.41 kg/m2Marisol Maganaholz ACCOUNT MANAGEMENT SPECIALIST Work Phone: [facility] DivisionJujfuxfftd23-02-1620 09:05-0400Body temperature 98.1 [degF]Marisol Chinoholz ACCOUNT MANAGEMENT SPECIALIST Work Phone: [facility] DivisionHoxeifvjvg76-47-0024 09:05-0400Body cbouwu86.29 kgLisa Maganaholz ACCOUNT MANAGEMENT SPECIALIST Work Phone: [facility] DivisionBkepadayxo30-72-9001 09:05-0400Diastolic blood tolmnuwz46 mm[Hg]Marisol Chinoholz ACCOUNT MANAGEMENT SPECIALIST Work Phone: [facility] DivisionEcykdwajey29-51-0013 09:05-0400Heart rate79 /min Amrisol Medardoshayeholz ACCOUNT MANAGEMENT SPECIALIST Work Phone: [facility] DivisionQduobkheot06-74-6301 09:05-0400Respiratory rate19 /minLisa Candelarioz ACCOUNT MANAGEMENT SPECIALIST Work Phone: [facility] DivisionBdfsnmlfln48-06-7745 09:05-5567DyF5% (BldA) [Mass fraction]97 %Marisol Palominoz ACCOUNT MANAGEMENT SPECIALIST Work Phone: noPers[facility] HospitalQjhdsfbzjj65-02-3703 09:05-0400Systolic blood mm[Hg]Marisol Palominoz ACCOUNT MANAGEMENT SPECIALIST Work Phone: [facility] DivisionMbewbxijcx90-76-5819 11:27-0400Body dmmkac159.9 Dorisisa Candelarioz ACCOUNT MANAGEMENT SPECIALIST Work Phone: [facility] DivisionDxteiceknm99-20-2744 11:27-0400Body mass index (BMI) [Ratio]23.16 kg/m2Jerisa Chinoholz ACCOUNT MANAGEMENT SPECIALIST Work Phone: [facility] DivisionGhoywanwnt08-83-8573 11:27-0400Body temperature 97.81 [degF]Marisol Palominoz ACCOUNT MANAGEMENT SPECIALIST Work Phone: [facility] DivisionEelckgwzar00-41-5073 11:27-0400Body nujecy79.47 kgLisa Chinoholz ACCOUNT MANAGEMENT SPECIALIST Work Phone: [place] [address]Jqfjgisahg38-32-4178 11:27-0400Diastolic blood ournlcow48 mm[Hg]Marisol Palominoz ACCOUNT MANAGEMENT SPECIALIST Work Phone: [facility] DivisionPcvpsbzknh83-76-2624 11:27-0400Heart rate56 /min Marisol Candelarioz ACCOUNT MANAGEMENT SPECIALIST Work Phone: [place] [address]Oebkwghtok51-16-1424 11:27-0400Respiratory rate18 /minLisa Chinoholz ACCOUNT MANAGEMENT SPECIALIST Work Phone: [place] [address]Eqkrtfmnxi13-33-0856 11:27-5417YmA4% (BldA) [Mass fraction]96 %Marisol Maganaholz ACCOUNT MANAGEMENT SPECIALIST Work Phone: [place] [address]Kxauopbftq20-40-0359 11:27-0400Systolic blood uqkzdzdx03 mm[Hg]Marisol Chinoholz ACCOUNT MANAGEMENT SPECIALIST Work Phone: [facility] [id number] 13:56-0400Body temperature 98.06 [degF]YAMILEX ARMSTRONG [facility]04-15-2024 13:56-0400Diastolic blood eouvdwdx45 mm[Hg]YAMILEX GARZARY [facility]04-15-2024 13:56-0400Heart rate67 /minJENNIFER EUGENIO [facility]04-15-2024 13:56-0400Respiratory rate16 /minJENNIFER EUGENIO [facility]04-15-2024 13:56-0400Systolic blood jjwqivmt681 mm[Hg]YAMILEX ARMSTRONG [facility]03-24-2023 09:44-0400Blood Pressure LocationKathy Lue [facility]03-24-2023 09:44-0400Diastolic blood fdoipsfl69 mm[Hg]Deja Lue [facility]03-24-2023 09:44-0400Heart rate87 /minKathy Lue [facility] [place] [address]-24-2023 09:44-0400Systolic blood yptdkvxw189 mm[Hg]Deja Lue [facility] Encounters Encounter DateEncounter TypeCare ProviderFacilityStart: 01-28-2025 End: 12-96-9068rvlqajtozoHMORAmsterdam Memorial Hospitaltart: 01-25-2025 End: 77-46-6209ljqbgixfrhEMIS J AICHHOLZThe MetroHealth Systemtart: 01-16-2025 End: 95-40-4704cqszmqeioeVPWNC M MUSSERcility:[facility]ertart: 01-08-2025 End: 84-57-0153Fojbejzxv encounterAnnaLima Memorial Hospital - Pain Management ClinicStart: 01-08-2025 End: 17-28-4877Habwkm outpatient visit 25 minutesEric BOURGEOIS Work Phone: [facility] - Pain Management ClinicComment on above:Thoracic spondylosis without myelopathy (Primary Dx) Start: 01-08-2025 End: 31-45-6787sewrbbpixlQMHD J AICHHOLZThe MetroHealth Systemtart: 01-03-2025 End: 90-65-4141fhabjwyjsjDWBTDHV [facility] Hospitaltart: 01-03-2025 End: 67-36-8393mnukqwhnpbEjuf J Aichholz ACCOUNT MANAGEMENT SPECIALIST-C Work Phone: [facility] Work Phone: Start: 01-03-2025 End: 32-84-2835Nymghgp encounter procedureMarisol Boyce ACCOUNT MANAGEMENT SPECIALIST-C-[facility] Work Phone: Start: 01-02-2025 End: 20-41-9727wilcfvbzvjEozy J Aichholz ACCOUNT MANAGEMENT SPECIALIST-C Work Phone: [facility] Work Phone: Start: 01-02-2025 End: 49-84-6060Uuvyzbq encounter procedureChristopher Bruna Staton DO-[facility] Work Phone: Start: 30-00-2695Use-patient / Non-visitZOEY BOURGEOIS-C-[facility] Work Phone: Start: 12-25-2024 End: 60-04-2361bgddevtyeaCCYBB M MUSSERFacility:[facility] Centertart: 04-65-8665ghsljviyczVGNT J AICHHOLZProMedica Kern Valleytart: 12-05-2024 End: 23-46-8438pgfjhgvyrqUtty J Aichholz Work Phone: [facility] Work Phone: Start: 12-05-2024 End: 94-92-4783Wyifylt encounter procedureMarisol Boyce ACCOUNT MANAGEMENT SPECIALIST-C-[facility] Work Phone: Start: 32-75-6854Wyy-patient / Non-visitSnathaniel Carbajal DO-[facility] Work Phone: Start: 21-94-9011Not-patient / Non-visitClem Staton DO-[facility] Work Phone: Start: 10-24-2024 End: 46-60-1650XexkwhUmfu Aichholz ACCOUNT MANAGEMENT SPECIALIST Work Phone: noms CWM FMComment on above:Mixed hyperlipidemia (Primary Dx)Start: 10-09-2024 End: 64-70-8722qgguuiqoerRPVR [facility] Columbustart: 10-03-2024 End: 12-08-1454VyajkhOaxu Aichholz ACCOUNT MANAGEMENT SPECIALIST Work Phone: NOMG CWM FMComment on above:PAD (peripheral artery disease) (Primary Dx); Paroxysmal atrial fibrillation (HCC)Start: 09-26-2024 End: 58-70-0679Udspbz flowsheetLisa Boyce ACCOUNT MANAGEMENT SPECIALIST Work Phone: N[facility]S CWM FMStart: 09-26-2024 End: 48-45-9133Btpwmx flowsheetLisa Batreshholz ACCOUNT MANAGEMENT SPECIALIST Work Phone: [facility] CWM FMStart: 09-26-2024 End: 41-47-3797Yqjjwfukm encounterLisa Boyce ACCOUNT MANAGEMENT SPECIALIST Work Phone: noms CWM FMStart: 09-26-2024 End: 34-80-3115Astxeu outpatient visit 25 minutesMarisol Boyce ACCOUNT MANAGEMENT SPECIALIST Work Phone: noms CWM FMComment on above:Dizziness and giddiness (Primary Dx); Pulmonary hypertension, unspecified (HCC); Primary hypertension ; Riley's esophagus with dysplasia; Type 2 diabetes mellitus without complication, with long-term current use of insulin (HCC)Start: 09-26-2024 End: 61-29-9806ssytsiycdlAGAJ MEDARDOHHOLZNot AvailableStart: 08-15-2024 End: 31-78-0757Aeklln flowsheetMarisol Maganasincere ACCOUNT MANAGEMENT SPECIALIST Work Phone: NOWE CWM FMStart: 08-15-2024 End: 07-05-8754Pkqjvu flowsSrinivas Palominotu ACCOUNT MANAGEMENT SPECIALIST Work Phone: noms CWM FMStart: 08-15-2024 End: 71-93-3331Bxevazy encounter procedureMarisol Boyce ACCOUNT MANAGEMENT SPECIALIST Work Phone: noms CWM FMComment on above:Encounter for subsequent annual wellness visit (AWV) in Medicare patient (Primary Dx); Centrilobular emphysema (CMS/HCC); Paroxysmal atrial fibrillation (CMS/HCC); Bilateral carotid artery disease, unspecified type (CMS/HCC); Primary hypertension (CMS/HCC); Type 2 diabetes mellitus without complication, with long-term current use of insulin; Type 2 diabetes mellitus with other specified complication, with long-term current use of insulin; Mixed hyperlipidemia (CMS/HCC); Dizziness and giddinessStart: 08-15-2024 End: 03-01-8833vpddhtgnonQPVF AICHHOLZNot AvailableStart: 08-10-2024 End: 58-54-4027DpgoysIogh Aichsincere ACCOUNT MANAGEMENT SPECIALIST Work Phone: noms CWM FMComment on above:Type 2 diabetes mellitus without complication, with long-term current use of insulinStart: 07-18-2024 End: 38-73-6131xqcftlmbduAcszr M. LueFacility:EU BellevueStart: 07-11-2024 End: 06-25-4547Srtbybwjl Result EncounterLisa Medardoshayeholz ACCOUNT MANAGEMENT SPECIALIST Work Phone: noms External Department UnsolicitedStart: 07-11-2024 End: 28-49-0137Vgxymhsku Result EncounterLisa Medardohholz ACCOUNT MANAGEMENT SPECIALIST Work Phone: noms External Department UnsolicitedStart: 07-11-2024 End: 27-80-1008Lkh Drop offJENNIFER E EUGENIO [facility] Start: 07-11-2024 End: 84-45-5844hcdmupklbrWtxlpl TannaFacility:EU BellevueStart: 07-05-2024 End: 04-52-7861FhqhwvHpcl Medardohholz ACCOUNT MANAGEMENT SPECIALIST Work Phone: noms CWM FMComment on above:Benign prostatic hyperplasia with lower urinary tract symptoms, symptom details unspecified (Primary Dx)Start: 06-20-2024 End: 31-21-1678OyjkykFazc Medardohholz ACCOUNT MANAGEMENT SPECIALIST Work Phone: noms CWM FMComment on above:Riley's esophagus with dysplasia (Primary Dx)Start: 05-15-2024 End: 96-76-2614Smjvhm flowsheetLisa Medardohholz ACCOUNT MANAGEMENT SPECIALIST Work Phone: noms CWM FMStart: 05-15-2024 End: 33-64-1273Fyotqd flowsheetLisa Aichholz ACCOUNT MANAGEMENT SPECIALIST Work Phone: noms CWM FMStart: 05-15-2024 End: 00-65-9187Dseknh outpatient visit 25 minutesLisa Chinoholz ACCOUNT MANAGEMENT SPECIALIST Work Phone: noms CWM FMComment on above:Type 2 diabetes mellitus without complication, with long-term current use of insulin (CMS/HCC) (Primary Dx); Centrilobular emphysema (CMS/HCC); Type 2 diabetes mellitus with other specified complication (CMS/HCC); Erectile dysfunction due to diseases classified elsewhere; Type 2 diabetes mellitus 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 ([facility]/HCC); Paroxysmal atrial fibrillation ([facility]/HCC); Coronary artery disease involving habematolel coronary artery of habematolel heart without angina pectoris ([facility]/HCC); Primary hypertension ([facility]/HCC); PAD (peripheral artery disease) ([facility]); Iron deficiency anemia, unspecified iron deficiency anemia type; Mixed hyperlipidemia ([facility]); Primary insomniaStart: 05-15-2024 End: 14-31-1093wagozmlmevRKGO FREDOot AvailableStart: 05-13-2024 End: 72-39-9360LtivaeMthm Aichholz ACCOUNT MANAGEMENT SPECIALIST Work Phone: noms CWM FMComment on above:Type 2 diabetes mellitus without complication, with long-term current use of insulin ([facility])Start: 04-18-2024 End: 96-34-2941Buaaocrvc encounterLauren Myriam [facility]ENTERProCross[facility] Physicians General SurgeryStart: 04-16-2024 End: 02-84-6876Tkpmva OnlyMichael E Grillis DO Work Phone: ProCross[facility] Surgeons Sign InStart: 04-11-2024 End: 68-35-9947ncbfsvsorqWsziump E rashiCleveland Clinic [facility] Work Phone: Start: 04-11-2024 End: 69-97-2867Survwkya ReferredMichael Grillis DO Work Phone: [facility]-LAB Path Spec Ed HospStart: 04-04-2024 End: 02-96-5689Jeuyup outpatient visit 15 minutesMarlin Koch EFFICIENCY ENGINEER-SECURITY FLEX UTILITY OFFICER Work Phone: [facility] General SurgeryComment on above: Encounter for colonoscopy due to history of colonic polyp (Primary Dx); 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Start: 04-04-2024 End: 80-37-2571RmvgluJzks Aichholz ACCOUNT MANAGEMENT SPECIALIST Work Phone: noms CWM FMComment on above:Type 2 diabetes mellitus without complication, with long-term current use of insulin (CMS/HCC) (Primary Dx)Start: 03-29-2024 End: 12-91-4931Fqdlsmamc Result EncounterGeneric External Data ProviderNOMS External Department UnsolicitedStart: 03-29-2024 End: 26-68-7165Lebluwppz Result EncounterGeneric External Data ProviderNOMS External Department UnsolicitedStart: 03-29-2024 End: 87-91-6778Fgvzylmai encounterLisa Carli ACCOUNT MANAGEMENT SPECIALIST Work Phone: noms [facility] FMStart: 03-26-2024 End: 36-75-9519qlajxtcwimACNCSelect Medical Specialty Hospital - Akrontart: 03-22-2024 End: 80-26-1065Lbfkjawx SupportAvita Health System [facility] 30 Cardiac RehAccess [facility] - Cardiac RehabComment on above:ArrivedStart: 03-19-2024 End: 13-78-2920Ntanksuff Result EncounterGeneric External Data ProviderNOMS External Department UnsolicitedStart: 03-19-2024 End: 05-29-4400Njqgruqjh Result EncounterGeneric External Data ProviderNOMS External Department UnsolicitedStart: 03-19-2024 End: 27-76-6003Fndxmbvv SupportAvita Health System [facility] 30 Cardiac RehAccess [facility] - Cardiac RehabStart: 03-15-2024 End: 49-88-4492fedptaqefsJVLQSelect Medical Specialty Hospital - Akrontart: 03-14-2024 End: 57-23-4755cecmvqlysmJGVX [facility] Columbustart: 03-13-2024 End: 90-43-7923Beyofusoz Result EncounterLisa Carli ACCOUNT MANAGEMENT SPECIALIST Work Phone: noms External Department UnsolicitedStart: 03-13-2024 End: 83-32-2554Cpcoachma Result EncounterLisa Carli ACCOUNT MANAGEMENT SPECIALIST Work Phone: noms External Department UnsolicitedStart: 03-12-2024 End: 69-42-1149frgaggtppyUOLI [facility]ertart: 03-08-2024 End: 33-65-5738Jqzfqras SupportPm 30 Cardiac [facility] - Cardiac RehabStart: 03-07-2024 End: 06-79-3931gwydlyuawbCJOE [facility] Centertart: 03-05-2024 End: 15-19-8076Mhkjpv outpatient new 30 [facility]El[facility] EFFICIENCY ENGINEER-SECURITY FLEX UTILITY OFFICER Work Phone: [facility] General SurgeryComment on above: Encounter for colonoscopy due to history of colonic polyp (Primary Dx); 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Start: 03-05-2024 End: 05-63-1617umpfvzjxroUVZKJNDOthello Community Hospital [facility] Start: 02-22-2024 End: 27-48-4297Locgfsdk SupportPm 30 Cardiac [facility] - Cardiac RehabStart: 02-20-2024 End: 72-96-3628Lylpmwxv SupportPm 30 Cardiac [facility] - Cardiac RehabStart: 02-16-2024 End: 10-97-9892Ydkhljjn SupportPm 30 [facility] - Cardiac RehabStart: 02-15-2024 End: 94-62-0494Nblgic Michele Boyce ACCOUNT MANAGEMENT SPECIALIST Work Phone: noms CWM FMStart: 02-15-2024 End: 19-17-4310Hzqthm flowsSrinivas Boyce ACCOUNT MANAGEMENT SPECIALIST Work Phone: N[facility] CWM FMStart: 02-15-2024 End: 02-68-6172Voenpx outpatient visit 25 minutesLisa Boyce ACCOUNT MANAGEMENT SPECIALIST Work Phone: noms CWM FMComment on above:Type 2 diabetes mellitus without complication, with long-term current use of insulin (CMS/HCC) (Primary Dx); Primary hypertension (CMS/HCC); PAD (peripheral artery disease) (CMS/HCC); 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 (CMS/HCC); Riley's esophagus with dysplasia; Erectile dysfunction due to diseases classified elsewhere; Benign prostatic hyperplasia with lower urinary tract symptoms, symptom details unspecified; Colon cancer screening; Tubulovillous adenoma of colon; Lumbosacral spondylosis without myelopathyStart: 02-15-2024 End: 17-64-1829iqsqgegwjcNEDBCharlie Gallegos AvailableStart: 02-15-2024 End: 11-86-2782Kbmvjrjd SupportPm 30 Cardiac [facility] - Cardiac RehabStart: 02-13-2024 End: 69-23-8093Ckbgzwax SupportPm 30 Cardiac [facility] - Cardiac RehabStart: 02-09-2024 End: 59-46-6424Ngprkngw SupportPm 30 [facility] - Cardiac RehabStart: 02-08-2024 End: 91-98-0716Wxiuhxiz SupportPm 30 Cardiac [facility] - Cardiac RehabStart: 02-06-2024 End: 22-98-5994Oibmxynn SupportPm 30 Cardiac [facility] - Cardiac RehabStart: 02-02-2024 End: 48-59-9477Rdgskamzc Zack Boyce NP Work Phone: noms [facility] FMStart: 02-02-2024 End: 84-37-4979krahwwheisRMMH J AICHHOLZVan Wert County Hospital HospitalStart: 02-01-2024 End: 59-30-1328Vbpcrlbl SupportPm 30 Cardiac [facility] - Cardiac RehabStart: 01-26-2024 End: 34-72-8625Tzxkyntg SupportPm 30 Cardiac [facility] - Cardiac RehabStart: 01-25-2024 End: 50-09-4460Xakkwxsk SupportPm 30 Cardiac [facility] - Cardiac RehabStart: 01-19-2024 End: 31-66-3763Etirzozz SupportPm 30 Cardiac [facility] - Cardiac RehabStart: 01-18-2024 End: 67-61-6144Tbssizuy SupportAvita Health System [facility] 30 Cardiac [facility] - Cardiac RehabStart: 01-16-2024 End: 77-78-1420Tlduxudf SupportAvita Health System [facility] 30 Cardiac [facility] - Cardiac RehabStart: 01-12-2024 End: 97-31-6005Cmfkpvmj SupportAvita Health System [facility] 30 Cardiac [facility] - Cardiac RehabComment on above:ArrivedStart: 01-11-2024 End: 75-16-5753Xjmaguiv SupportAvita Health System [facility] 30 Cardiac [facility] - Cardiac RehabStart: 01-05-2024 End: 60-18-2134Iljwnung SupportAvita Health System [facility] 30 Cardiac [facility] - Cardiac RehabStart: 01-04-2024 End: 46-77-4864Rnmnyomarianne Boyce ACCOUNT MANAGEMENT SPECIALIST Work Phone: noms CWM FMStart: 01-04-2024 End: 93-32-8004Lhfpxjnayla Boyce ACCOUNT MANAGEMENT SPECIALIST Work Phone: noms CWM FMStart: 01-04-2024 End: 41-68-8402Tsccgxrn SupportAvita Health System [facility] 30 Cardiac [facility] - Cardiac RehabStart: 01-04-2024 End: 58-04-7691Ksvcpa outpatient visit 25 Zay Boyce ACCOUNT MANAGEMENT SPECIALIST Work Phone: noMS CWM FMComment on above:Type 2 diabetes mellitus without complication, with long-term current use of insulin (CMS/HCC) (Primary Dx); Chronic thoracic back pain, unspecified back pain laterality; Primary hypertension (CMS/HCC)Start: 01-04-2024 End: 51-54-2348yzufnltdonCGFN AICHHOLZNot AvailableStart: 01-02-2024 End: 96-64-5556Kqpuplje SupportAvita Health [facility] 30 Cardiac [facility] - Cardiac RehabStart: 12-28-2023 End: 72-80-4431Nelhqsoe SupportAvita Health System [facility] 30 Cardiac [facility] - Cardiac RehabStart: 12-26-2023 End: 80-99-1322Pgffyfaz SupportAvita Health System [facility] Cardiac [facility] - Cardiac RehabStart: 12-22-2023 End: 92-47-2774Dnfonqig SupportAvita Health System [facility] Cardiac [facility] - Cardiac RehabStart: 12-21-2023 End: 38-95-8606CkotoyCkdo Aichholz ACCOUNT MANAGEMENT SPECIALIST Work Phone: noms CWM FMComment on above:Benign prostatic hyperplasia with lower urinary tract symptoms, symptom details unspecified (Primary Dx)Start: 12-21-2023 End: 30-01-6963Miqugnda SupportAvita Health System [facility] - Cardiac RehabStart: 12-19-2023 End: 85-59-2389Mjtbujkt Support[address] - Cardiac RehabStart: 12-09-2023 End: 88-04-4793Gkxcfxpxh Result EncounterGeneric External Data ProviderNOMS External Department UnsolicitedStart: 12-09-2023 End: 71-11-3047Qjziypmzj Result EncounterGeneric External Data ProviderNOMS External Department UnsolicitedStart: 11-29-2023 End: 32-92-6888Pbmcymyd Result EncounterLisa Carli ACCOUNT MANAGEMENT SPECIALIST Work Phone: noms External Department UnsolicitedStart: 11-29-2023 End: 90-57-4772Zkpvzwku Result EncounterLisa Carli ACCOUNT MANAGEMENT SPECIALIST Work Phone: noms External Department UnsolicitedStart: 11-22-2023 End: 42-63-5303Bvgjxy flowsheetMarisol Boyce ACCOUNT MANAGEMENT SPECIALIST Work Phone: noms CWM FMStart: 11-22-2023 End: 05-79-4330Xtgvok flowsheetMarisol Batreshsincere ACCOUNT MANAGEMENT SPECIALIST Work Phone: noms CWM FMStart: 11-22-2023 End: 21-69-9566Mqdudv outpatient visit 15 minutesLisa Medardohholz ACCOUNT MANAGEMENT SPECIALIST Work Phone: noms CWM FMComment on above:Coronary artery disease involving habematolel coronary artery of habematolel heart without angina pectoris (CM S/HCC) (Primary Dx); Other thrombophilia (CMS/HCC); Paroxysmal atrial fibrillation (CMS/HCC); Nonrheumatic mitral valve regurgitation; Primary hypertension (CMS/HCC); 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)Start: 11-22-2023 End: 85-93-3065zayxxzldrvACVQ AICHHOLZNot AvailableStart: 10-11-2023 End: 14-21-3393bpkzfcupgdCONO AICHHOLZNot AvailableStart: 07-11-2023 End: 90-12-9798Nwugrcr encounter procedureYAMILEX GARZARY [facility] Start: 10-45-1294Kadrceo encounter procedureLisa Medardohholz ACCOUNT MANAGEMENT SPECIALIST Work Phone: noms HealthcareStart: 88-14-4725XrbkmmJcxm Medardohholz ACCOUNT MANAGEMENT SPECIALIST Work Phone: noms CWM FMStart: 72-29-0324Yemqmmzq Result Encounter Marisol Carli ACCOUNT MANAGEMENT SPECIALIST Work Phone: noms External Department UnsolicitedStart: 05-04-2023 External Result EncounterLisa Medardohholz ACCOUNT MANAGEMENT SPECIALIST Work Phone: noms External Department UnsolicitedStart: 06-18-2022 End: 89-19-4185Lgmkrdi encounter procedureDeja Perez [facility] Start: 06-11-2022 End: 79-15-5320zaglpzntcfZZJ MARISOL AICHHOLZFacility:J4Fhlev: 01-06-2022 End: 41-33-3858wqjbiotqtjYZL MARISOL AICHHOLZFacility:B0Droam: 01-05-2022 End: 01-82-9622aohfyvankmCTY MARISOL AICZORAIDAFacility:O2Jjshb: 10-14-2021 End: 66-49-3458sdryvwqjjkEMDKMDE TULEONAERFacility:D5Zfnob: 06-18-2021 End: 71-50-8593Rfcaqdx encounter procedureRobert W RICE [facility] Procedures DateProcedureProcedure DetailPerforming ClinicianStart: 29-53-4672FVOT CBC W/ AUTO DIFFLisa Carli ACCOUNT MANAGEMENT SPECIALIST Work Phone: Start: 34-90-4516KbgoomngrfqQqlzefl Grillis DO Work Phone: Start: 86-82-7486Kooaia-up visitFollow-upJESSICA A CARROLLStart: 49-32-4435WDSXZCLLD BLOOD PRESSUREGeneric External Data Provider Start: 71-20-8717VL ECHO DOPPLER COMPLETEGeneric External Data ProviderStart: 55-90-2949RHF HEMOGLOBIN D5LBorx Carli ACCOUNT MANAGEMENT SPECIALIST Work Phone: Start: 22-60-7222UT TONE PERF SPECT REST STRGeneric External Data ProviderStart: 39-79-3875Akpih metabolic panel calcium totalLisa Medardohholz ACCOUNT MANAGEMENT SPECIALIST Work Phone: Start: 46-56-0855Vewoosigwqchh metabolic panelLisa Aichholz ACCOUNT MANAGEMENT SPECIALIST Work Phone: Start: 69-83-3222Wjbqf dip stick/tablet rgnt non-auto w/o micrscpLisa Chinoholz ACCOUNT MANAGEMENT SPECIALIST Work Phone: Start: 99-69-6918Gxlgddjvcmg vein stent (physical object)Carlitos MAYA Start: 26-19-4189Wlmilunta of sacroiliac jointRobert RICE Start: 67-78-4792HbckxyzaucyDhpz Carli ARNOLD Work Phone: Cataract (disorder)Carlitos RICE CholecystectomyRobert RICE Placement of stent in cardiac conduitRobert RICE Prosthetic arthroplasty of shoulderRobert RICE Plan of Treatment DateCare ActivityDetailAuthorStart: 81-27-9066Fslevghgg for malignant neoplasm of colonNOMS HealthcareStart: 62-42-5974Zauskhdvd for malignant neoplasm of colonColonoscopyProCleveland Clinic Foundation SystemStart: 13-21-8430Xntbmtmw screening Diabetes: Retinopathy ScreeningNOMS HealthcareStart: 69-90-4782Ufshthr Screening Tobacco ScreeningDunlap Memorial Hospital SystemStart: 08-21-2025 End: 85-02-4638Rwswzij encounter mspbkkqeo84/27/2026 10:00 AM EDT Office Visit [facility] [address] [place] [address] Marisol Boyce NP [address] [place] [address] [facility] FMStart: 05-21-2026Medicare Annual Wellness (AWV) Medicare Annual Wellness (AWV)NOMS HealthcareStart: 76-43-8880Gnnwb screening for proteinDiabetes: Urine Protein ScreeningNOMS HealthcareStart: 04-04-2025 Tobacco ScreeningTobacco ScreeningDunlap Memorial Hospital SystemStart: 03-05-2025 End: 00-83-1986Rbawvqm encounter ugegjqstc55/09/2025 2:15 PM EST Office Visit [facility] [address] [place] [id number] Eric Peterson PA [address] [place] [address] [facility] - Pain Management ClinicStart: 21-33-4317Hmcqogq Screening Tobacco ScreeningDunlap Memorial Hospital SystemStart: 01-25-2025 End: 32-68-7598Azskdolaj to same day surgery kxhnca9101/25/2025 2:32 PM EDT - 01/25/2025 2:42 PM EDT Surgery [facility] - Pain P rocedures [address] [place] [phone] Gabriel Hanson MD [address] [place] [address] INJECTION BLOCK NERVE MEDIAL BRANCH Bilat T 7/8, 8/9 [05381 (CPT )][facility] - [facility] ProceduresComment on above:INJECTION BLOCK NERVE MEDIAL BRANCH Bilat T 7/8, 8/9 [81603 (CPT )]Start: 01-25-2025 End: 77-72-9512Nrg dx/ther agt pvrt facet jt crv/thrc 1 levelINJECTION BLOCK NERVE MEDIAL BRANCH Thoracic spondylosis without myelopathy 01/25/2025 2:32 PM EDTFREMONT PAINStart: 40-03-0436Kxtvvqfukq hospital visit by physicianMem[facility] ProceduresStart: 11-29-2024 End: 70-80-4026Ycoyykc encounter procedureNOMS CWM FMStart: 85-55-2218QHWDE-19 Vaccine ( season)COVID-19 Vaccine ( season)[facility] SystemStart: 96-13-3774Wmzylhyqt vaccinationNOMS HealthcareStart: 65-98-5053Ijkrjwqmum A1c measurementDiabetes: Hemoglobin Y4MJORL Healthcare Start: 30-51-3101Lbzfm screening for proteinDiabetes: Urine Protein Screening N[facility] HealthcareStart: 09-26-2024 End: 58-60-7804Zggzjpn encounter procedureNOMS CWM FMComment on above:Dizziness and giddiness (Primary Dx); Pulmonary hypertension, unspecified (HCC); Primary hypertensionStart: 08-15-2024 End: 83-25-6632Mtsvyqg encounter procedureNOATOKA COUNTY MEDICAL [facility] – [place]OK[facility] FMComment on above:Encounter for subsequent annual wellness visit (AWV) in Medicare patient (Primary Dx); CORNELIA (obstructive sleep apnea); Centrilobular emphysema (CMS/HCC); Paroxysmal atrial fibrillation (CMS/HCC); Bilateral carotid artery disease, unspecified type (CMS/HCC); Primary hypertension (CMS/HCC); Type 2 diabetes mellitus without complication, with long-term current use of insulin; Type 2 diabetes mellitus with other specified complication, with long-term current use of insulin; Mixed hyperlipidemia (CMS/HCC)Start: 06-12-2024 End: 44-63-9234YVX W Auto Differential panel - BloodCBC and differential Lab Routine Paroxysmal atrial fibrillation (CMS/HCC) Iron deficiency anemia, un specified iron deficiency anemia type Expected: 06/12/2024 (Approximate), Expires: 05/15/2025NOMT Healthcare Work Phone: Comment on above:Expected: 06/12/2024 (Approximate), Expires: 05/15/2025Start: 06-12-2024 End: 29-64-0235Sjfnaykoiyfno metabolic 2000 panel - Serum or PlasmaComprehensive metabolic panel Lab Routine Type 2 diabetes mellitus with other specified complication (CMS/HCC) Coronary artery disease involving habematolel coronary artery of habematolel heart without angina pectoris (CMS/HCC) Primary hypertension (CMS/HCC) Mixed hyperlipidemia (CMS/HCC) Expected: 06/12/2024 (Approximate), Expires: 05/15/2025[facility] HealthcareComment on above:Expected: 06/12/2024 (Approximate), Expires: 05/15/2025Start: 06-12-2024 End: 95-44-8181Rwwkcperzn A1c/Hemoglobin.total in BloodHemoglobin A1c Lab Routine Type 2 diabetes mellitus without complication, with long-term current use of insulin (CMS/HCC) Expected: 06/12/2024 (Approximate), Expires: 05/15/2025 [facility] HealthcareComment on above:Expected: 06/12/2024 (Approximate), Expires: 05/15/2025Start: 06-12-2024 End: 57-31-4519Tfqa and Iron binding capacity panel - Serum or PlasmaIron level Lab Routine Iron deficiency anemia, unspecified iron deficiency anemia type Expected: 06/12/2024 (Approximate), Expires: 05/15/2025[facility] HealthcareComment on above:Expected: 06/12/2024 (Approximate), Expires: 05/15/2025Start: 06-12-2024 End: 74-42-4357Qwkwc 1996 panel - Serum or PlasmaLipid panel Lab Routine Mixed hyperlipidemia (CMS/HCC) Expected: 06/12/2024 (Approximate), Expires:05/15/2025 [facility] HealthcareComment on above:Expected: 06/12/2024 (Approximate), Expires: 05/15/2025Start: 06-12-2024 End: 47-62-8833Gupgfwsbwlxd/Creatinine panel in random UrineMicroalbumin / creatinine, urine ratio Lab Routine Primary hypertension (CMS/HCC) Type 2 diabetes mellitus without complication, with long-term current use of insulin (CMS/HCC) Expected: 06/12/2024 (Approximate), Expires: 05/15/2025[facility] Healthcare Comment on above:Expected: 06/12/2024 (Approximate), Expires: 05/15/2025Start: 06-12-2024 End: 32-10-6371Ypqileuevu complete panel - UrineUrinalysis with reflex microscopic (clean catch) Lab Routine Primary hypertension (CMS/HCC) Type 2 d iabetes mellitus without complication, with long-term current use of insulin ([facility]/HCC) Expected: 06/12/2024 (Approximate), Expires: 05/15/2025[facility] Comment on above:Expected: 06/12/2024 (Approximate), Expires: 05/15/2025Start: 57-09-4736Xafgricyoj A1c measurementDiabetes: Hemoglobin V4AKAWBHCA [facility] Division Start: 03-12-2025Medicare Annual Wellness (AWV)Medicare Annual Wellness (AWV) [facility] HealthcareStart: 05-15-2024 End: 22-35-3474Aswlsgz encounter procedureNOMS CWM FMComment on above:Coronary artery disease involving habematolel coronary artery of habematolel heart without angina pectoris (CMS/HCC) (Primary Dx); Centrilobular emphysema (CMS/[facility]); Type 2 diabetes mellitus with other specified complication (CMS/HCC); Erectile dysfunction due to diseases classified elsewhere; Type 2 diabetes mellitus 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 ([facility]/HCC); Paroxysmal atrial fibrillation ([facility]/HCC); Primary hypertension ([facility]/HCC); PAD (peripheral artery disease) ([facility]); Type 2 diabetes mellitus without complication, with long-term current use of insulin ([facility]/HCC); Iron deficiency anemia, unspecified iron deficiency anemia type; Mixed hyperlipidemia ([facility])Start: 50-63-2255Jepwl screening for protein Diabetes: Urine Protein ScreeningHCA Midwest DivisionStart: 04-03-2024 End: 68-13-1307Odcupbl encounter xdzoesedt78/07/2025 10:30 AM EST Office Visit [facility] General Surgery [address] [place] [address] Marlin Koch, EFFICIENCY ENGINEERPRATT CLINIC / [facility] [address] [place] [address] [facility] HospitaledicM[facility] General SurgeryStart: 03-26-2024 End: 96-54-9876Oiylgjjb Tqxzymd6203/26/2024 10:30 AM EST Clinical Support [facility] Card[facility] [address] [place] [address] IduZuohmtMemorial Health System [facility] - Card[facility] RehabStart: 03-22-2024 End: 06-99-9186Nfsimsyp Cfcnssy2003/22/2024 10:30 AM EST Clinical Support [facility] [address] [place] [address] VbkZcoqrvMemorial Health System [facility] - Card[facility] RehabStart: 03-12-2024 End: 44-45-1480Caldjpgd Cwxxtgh7303/12/2024 10:30 AM EST Clinical Support [facility] [address] [place] [address] ZlqOcfejyMemorial Health System [facility] - Card[facility] RehabStart: 03-08-2024 End: 13-69-1938Yfakbwbe Ggotwzo4503/08/2024 10:30 AM EST Clinical Support [facility] [address] [place] [address] BjjXhoqapMemorial Health System [facility] - Cardiac RehabStart: 03-07-2024 End: 27-84-1753Ltqjolko Rmoziyv9903/07/2024 10:30 AM EST Clinical Support [facility] [address] [place] [address] OufFuirllMemorial Health System [facility] - Card[facility] RehabStart: 03-05-2024 End: 59-65-3078Lxyffkj encounter acnoxufih80/09/2024 11:45 AM EST Office Visit [facility] General Surgery [address] [place] [address] Marlin Koch, EFFICIENCY ENGINEER-SECURITY FLEX UTILITY OFFICER [address] [place] [address] [facility]MC[facility] General SurgeryStart: 03-05-2024 End: 47-32-4865Fszfnaah Ljmcuvc4503/05/2024 10:30 AM EST Clinical Support [facility] [address] [place] [address] RaqSoiindMemorial Health System [facility] - Cardiac RehabStart: 03-01-2024 End: 34-37-8794Fqnfsjvp Ijrdqgv9903/01/2024 10:30 AM EST Clinical Support [facility] [address] [place] [address] ObuUkratsMemorial Health System [facility] - Cardiac RehabStart: 02-29-2024 End: 22-62-3051Miijshvcqq A1c/Hemoglobin.total in BloodHemoglobin A1c Lab Routine Type 2 diabetes mellitus without complication, with long-term current use of insulin ([facility]) Expected: 02/29/2024 (Approximate), Expires: 02/14/2025 [facility] Work Phone: Comment on above:Expected: 02/29/2024 (Approximate), Expires: 02/14/2025Start: 02-29-2024 End: 44-16-9574Hepetbyg Qhdrvyg1202/29/2024 10:30 AM EST Clinical Support [facility] [address] [place] [address] EelCanbolMemorial Health System [facility] - Cardiac RehabStart: 90-13-8601Foyytmxqlr A1c measurementDiabetes: Hemoglobin J3NFFKIHCA [facility] Start: 02-27-2024 End: 13-34-3639Dgrajqhy Twstvun5902/27/2024 10:30 AM EST Clinical Support [facility] [address] [place] [address] TeoHqaugeMemorial Health System [facility] - Cardiac RehabStart: 02-22-2024 End: 07-22-4213Cqqcmpde Bxpupqn8502/22/2024 10:30 AM EST Clinical Support [facility] [address] [place] [address] QqpZubqscMemorial Health System [facility] - Card[facility] RehabStart: 02-20-2024 End: 61-26-0993Yqaoqfvp Juikkko0402/20/2024 10:30 AM EST Clinical Support [facility] Card[facility] [address] [place] [address] YnySmncqmMemorial Health System [facility] - Card[facility] RehabStart: 02-16-2024 End: 43-19-2528Ozudsfda Twfuoyu6502/16/2024 10:30 AM EST Clinical Support [facility] [address] [place] [address] TveKvaavxMemorial Health System [facility] - Card[facility] RehabStart: 02-15-2024 End: 97-95-1051Gouhile encounter procedureNOMS CWM FMComment on above:Primary hypertension (CMS/HCC) (Primary Dx); PAD (peripheral artery disease) (CMS/HCC); 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 (CMS/HCC); Riley's esophagus with dysplasia; Erectile dysfunction due to diseases classified elsewhere; Benign prostatic hyperplasia with lower urinary tract symptoms, symptom details unspecified; Type 2 diabetes mellitus without complication, with long-term current use of insulin ([facility]/HCC); Colon cancer screeningStart: 02-15-2024 End: 29-02-8392Gkiujzhn Ibcdfdu9802/15/2024 10:30 AM EST Clinical Support [facility] [address] [place] [address] BqbCoyarvMemorial Health System [facility] - Card[facility] RehabStart: 02-13-2024 End: 72-88-2983Scstfqjb Bcjkvla4902/13/2024 10:30 AM EST Clinical Support [facility] [address] [place] [address] ZamKiwojoMemorial Health System [facility] - Card[facility] RehabStart: 02-09-2024 End: 23-13-1284Rnqtkqet Pzolxfj5502/09/2024 10:30 AM EST Clinical Support [facility] [address] [place] [address] YxpYnbkejMemorial Health System [facility] - Card[facility] RehabStart: 02-08-2024 End: 39-40-8226Iusbmxcu Afvafqb1802/08/2024 10:30 AM EST Clinical Support [facility] [address] [place] [address] WqeTsrjnrMemorial Health System [facility] - Card[facility] RehabStart: 02-06-2024 End: 57-46-0557Wbxuwpgv Obekjnu8502/06/2024 10:30 AM EST Clinical Support [facility] [address] [place] [address] CosUntvnbMemorial Health System [facility] - Card[facility] RehabStart: 02-02-2024 End: 03-12-0281Lrdrwipe Wjkzljz3002/02/2024 10:30 AM EST Clinical Support [facility] [address] [place] [address] BpeBsekesMemorial Health System [facility] - Card[facility] RehabStart: 02-01-2024 End: 49-05-8961Razcxmfl Idixhpl2702/01/2024 10:30 AM EST Clinical Support [facility] [address] [place] [address] UykWfqglzMemorial Health System [facility] - Card[facility] RehabStart: 01-30-2024 End: 66-21-0993Bwtmvrsn Eerexnd0301/30/2024 10:30 AM EST Clinical Support [facility] [address] [place] [address] ExjHlthzpMemorial Health System [facility] - Card[facility] RehabStart: 01-26-2024 End: 03-80-9515Yumkuxss Ddqrggb3501/26/2024 10:30 AM EDT Clinical Support [facility] [address] [place] [address] WfqVawzagMemorial Health System [facility] - Card[facility] RehabStart: 01-25-2024 End: 95-31-0140Gyhxwhuh Rzxpxrg1001/25/2024 10:30 AM EDT Clinical Support [facility] [address] [place] [address] SibUsdzauMemorial Health System [facility] - Card[facility] RehabStart: 01-23-2024 End: 99-43-0199Mfsiguhb Vhalorm5801/23/2024 10:30 AM EDT Clinical Support [facility] [address] [place] [address] UznRxbwymMemorial Health System [facility] RehabStart: 01-19-2024 End: 37-42-6523Lrlmhirw Pmeedpr4501/19/2024 10:30 AM EDT Clinical Support [facility] [address] [place] [address] OokOivwjcMemorial Health System [facility] Card[facility] RehabStart: 01-18-2024 End: 71-74-9839Kcbpffxn Ruhjrae4801/18/2024 10:30 AM EDT Clinical Support [facility] [address] [place] [address] VbcSkfsyaMemorial Health System [facility] - [facility] RehabStart: 01-16-2024 End: 14-52-1020Pabnsori Ooduyjj3101/16/2024 10:30 AM EDT Clinical Support [facility] [address] [place] [address] RdiQarklwMemorial Health System [facility] - Card[facility] RehabStart: 01-12-2024 End: 63-77-6013Woagqrnc Fzoefdu0701/12/2024 10:30 AM EDT Clinical Support [facility] [address] [place] [address] SlwNtjihuMemorial Health System [facility] - Card[facility] RehabStart: 01-11-2024 End: 66-44-0459Kmveuear Mkenklf2401/11/2024 10:30 AM EDT Clinical Support [facility] [address] [place] [address] ExsXujcstMemorial Health System [facility] - Card[facility] RehabStart: 01-09-2024 End: 10-15-4234Bqhkrxva Wkhfxxx9301/09/2024 10:30 AM EDT Clinical Support [facility] [address] [place] [address] VomPydoxfMemorial Health System [facility] - Card[facility] RehabStart: 01-05-2024 End: 44-66-7660Fzgpvvvd Nnpmgbu1701/05/2024 10:30 AM EDT Clinical Support [facility] [address] [place] [address] OzkXzetguMemorial Health System [facility] - Card[facility] RehabStart: 01-04-2024 End: 11-47-0568JK Thoracic spine 3 ViewsXR thoracic spine 3 views Imaging Routine Chronic thoracic back pain, unspecified back pain laterality Expected: 01/04/2024, Expires: 01/03/2025[facility] Work Phone: Comment on above:Expected: 01/04/2024, Expires: 01/03/2025Start: 01-04-2024 End: 07-41-4465Akxyaac encounter procedureNOMT CWM FMComment on above:Arrived Start: 48-56-0010Nwowyfkypa A1c measurementDiabetes: Hemoglobin C7THHOWHCA [facility] DivisionStart: 01-02-2024 End: 92-84-0385Qgbxxkmn Uxlfqlv1601/02/2024 10:30 AM EDT Clinical Support [facility] [address] [place] [address] DlrGjbmehMemorial Health System [facility] - Card[facility] RehabStart: 12-29-2023 End: 28-95-0036Sobvpfig Gtyzbnc5112/29/2023 10:30 AM EDT Clinical Support [facility] [address] [place] [address] RpkNtwgknMemorial Health System [facility] - Card[facility] RehabStart: 12-28-2023 End: 97-82-4789Uwidpnmv Ucsdhxa4312/28/2023 10:30 AM EDT Clinical Support [facility] [address] [place] [address] CntCopyksMemorial Health System [facility] - Card[facility] RehabStart: 12-26-2023 End: 55-23-6826Nlqzvxve Zylhofl8012/26/2023 10:30 AM EDT Clinical Support [facility] [address] [place] [address] OjbOvwkwdMemorial Health System [facility] - Card[facility] RehabStart: 12-22-2023 End: 56-34-5877Boymnpvo Hmhwcso9112/22/2023 10:30 AM EDT Clinical Support [facility] [address] [place] [address] [phone] Community [facility] & [facility] Card[facility] RehabStart: 12-21-2023 End: 81-01-8292Jhmdfjww Rhldyjf0312/21/2023 10:30 AM EDT Clinical Support [facility] [address] [place] [address] OauFhlozcSuburban Community Hospital & [facility] Cardiac RehabStart: 50-27-7214Xuagccsr screeningDiabetes: Retinopathy ScreeningEN[facility] Healthcare Comment on above:Postponed from 1956 (Other Patient Reasons)Start: 28-19-2639HIFVB-19 Vaccine ()COVID-19 Vaccine ()[facility] SystemStart: 04-40-4439KEAOU-19 Vaccine ()COVID-19 Vaccine ()[facility] Hospitaltart: 26-15-2553Pecnfxybb vaccinationENCOMPASS HEALTH HealthcareStart: 11-22-2023 End: 10-95-1536Pgiwaoi encounter yajygifex06/27/2024 11:20 AM EDT Office Visit [facility] [address] [place] [address] Marisol Boyce NP [address] [place] [address] Other thrombophilia (CMS/HCC)[facility] FMComment on above: Other thrombophilia (CMS/HCC)Start: 03-44-8473Lemjpdbqg for malignant neoplasm of colonNOMT HealthcareStart: 38-21-3893Ufnogujrqe A1c measurementDiabetes: Hemoglobin J1SMSNT HealthcareStart: 49-98-6954Qfyxc BMI ScreeningAdult BMI ScreeningDunlap Memorial Hospital SystemStart: 17-43-5188Gdbmilx ScreeningTobacco ScreeningDunlap Memorial Hospital SystemStart: 54-47-2271Qmpperohp for malignant neoplasm of colonFOBTNOMS HealthcareStart: 06-81-5762Ydlrd screening for protein Diabetes: Urine Protein ScreeningENCOMPASS HEALTH HealthcareStart: 06-07-2023 End: 50-27-3798Slszqty encounter fttvuefui02/12/2024 10:30 AM EDT Office Visit [facility] [address] [place] [address] Marisol Boyce, CATALINA [address] [place] [address] JEFF HENDERSON FMStart: 65-23-7246Fwrcmpdrll A1c measurement Diabetes: Hemoglobin P4LOMLK HealthcareStart: 46-06-1182Vgqgiqpop for malignant neoplasm of colonColonoscopyDunlap Memorial Hospital SystemStart: 05-07-2014 Administration of varicella zoster vaccineZoster (Shingles) Vaccine (2 of 3) [facility] SystemStart: 13-71-7150Cuvqvdpbr aortic aneurysm screening Abdominal Aortic Aneurysm (AAA) ScreenDunlap Memorial Hospital SystemStart: 09-14-2011 Fall Risk ScreeningFall Risk ScreeningDunlap Memorial Hospital SystemStart: 1965 DTaP,Tdap and Td Vaccines (1 - Tdap)DTaP,Tdap and Td Vaccines (1 - Tdap) [facility] SystemStart: 02-69-3882Aigaamlceb ScreeningDepression Screening [facility] SystemStart: 29-09-0874Dhavkikz screeningDiabetes: Retinopathy ScreeningNOMT HealthcareStart: 06-19-1947Medicare Annual Wellness (AWV)Medicare Annual Wellness (AWV)[facility] HealthcareStart: 06-19-1947Medicare Annual Wellness VisitMedicare Annual Wellness VisitDunlap Memorial Hospital SystemStart: 1946 Screening for malignant neoplasm of colonNOMS HealthcareStart: 36-53-9725Doljkvr CounselingTobacco CounselingMercy Health Clermont HospitalCardiopulmonary rehabilitationCardiopulmonary rehabilitation Cardiac Services Ordered: 03/19/2024roMedicaComment on above:Ordered: 12/23/2024Cardiopulmonary rehabilitationCardiopulmonary rehabilitation Cardiac Services Ordered: 03/22/2024roMedicaComment on above:Ordered: 03/22/2024ardiopulmonary rehabilitationCardiopulmonary rehabilitation Cardiac Services Ordered: 12/26/2023roMedicaComment on above:Ordered: 12/26/2023ardiopulmonary rehabilitationCardiopulmonary rehabilitation Cardiac Services Ordered: 12/28/2023roMedicaComment on above:Ordered: 12/28/2023ardiopulmonary rehabilitationCardiopulmonary rehabilitation Cardiac Services Ordered: 01/02/2024roMedicaComment on above:Ordered: 01/02/2024ardiopulmonary rehabilitationCardiopulmonary rehabilitation Cardiac Services Ordered: 01/04/2024roMedicaComment on above:Ordered: 01/04/2024ardiopulmonary rehabilitationCardiopulmonary rehabilitation Cardiac Services Ordered: 01/05/2024roMedicaComment on above:Ordered: 01/05/2024ardiopulmonary rehabilitationCardiopulmonary rehabilitation Cardiac Services Ordered: 01/11/2024roMedicaComment on above:Ordered: 01/11/2024ardiopulmonary rehabilitationCardiopulmonary rehabilitation Cardiac Services Ordered: 01/12/2024roMedicaComment on above:Ordered: 01/12/2024ardiopulmonary rehabilitationCardiopulmonary rehabilitation Cardiac Services Ordered: 12/19/2023roMedicaComment on above:Ordered: 12/19/2023ardiopulmonary rehabilitationCardiopulmonary rehabilitation Cardiac Services Ordered: 01/16/2024roMedicaComment on above:Ordered: 01/16/2024ardiopulmonary rehabilitationCardiopulmonary rehabilitation Cardiac Services Ordered: 12/21/2023roMedicaComment on above:Ordered: 12/21/2023ardiopulmonary rehabilitationCardiopulmonary rehabilitation Cardiac Services Ordered: 01/19/2024roMedicaComment on above:Ordered: 01/19/2024ardiopulmonary rehabilitationCardiopulmonary rehabilitation Cardiac Services Ordered: 12/22/2023roMedicaComment on above:Ordered: 12/22/2023ardiopulmonary rehabilitationCardiopulmonary rehabilitation Cardiac Services Ordered: 01/18/2024roMedicaComment on above:Ordered: 01/18/2024ardiopulmonary rehabilitationCardiopulmonary rehabilitation Cardiac Services Ordered: 01/25/2024roMedicaComment on above:Ordered: 01/25/2024ardiopulmonary rehabilitationCardiopulmonary rehabilitation Cardiac Services Ordered: 01/26/2024roMedicaComment on above:Ordered: 01/26/2024ardiopulmonary rehabilitationCardiopulmonary rehabilitation Cardiac Services Ordered: 02/02/2024roMedicaComment on above:Ordered: 02/02/2024ardiopulmonary rehabilitationCardiopulmonary rehabilitation Cardiac Services Ordered: 02/08/2024roMedicaComment on above:Ordered: 02/08/2024ardiopulmonary rehabilitationCardiopulmonary rehabilitation Cardiac Services Ordered: 02/06/2024roMedicaComment on above:Ordered: 02/06/2024ardiopulmonary rehabilitationCardiopulmonary rehabilitation Cardiac Services Ordered: 02/09/2024roMedicaComment on above:Ordered: 02/09/2024ardiopulmonary rehabilitationCardiopulmonary rehabilitation Cardiac Services Ordered: 02/13/2024roMedicaComment on above:Ordered: 02/13/2024ardiopulmonary rehabilitationCardiopulmonary rehabilitation Cardiac Services Ordered: 02/15/2024roMedicaComment on above:Ordered: 02/15/2024ardiopulmonary rehabilitationCardiopulmonary rehabilitation Cardiac Services Ordered: 02/16/2024roMedicaComment on above:Ordered: 02/16/2024ardiopulmonary rehabilitationCardiopulmonary rehabilitation Cardiac Services Ordered: 02/20/2024roMedicaComment on above:Ordered: 02/20/2024ardiopulmonary rehabilitationCardiopulmonary rehabilitation Cardiac Services Ordered: 02/22/2024roMedicaComment on above:Ordered: 02/22/2024ardiopulmonary rehabilitationCardiopulmonary rehabilitation Cardiac Services Ordered: 03/08/2024roMedicaComment on above:Ordered: 03/08/2024 End: 18-68-4497NjysejamjufNdxalylabls GI Routine Encounter for colonoscopy due to history of colonic polyp 1 Occurrences starting 03/05/2024 until 03/05/2025 [facility] Work Phone: Comment on above:1 Occurrences starting 03/05/2024 until 03/05/2025 End: 18-94-9202VzymwjwwxelmknaxuvesyzjjmpUWS GI Routine 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 1 Occurrences starting 03/05/2024 until 03/05/2025ProSal[facility] Hospitalca Health SystemComment on above:1 Occurrences starting 03/05/2024 until 03/05/2025 MR [facility] HospitalNjx dx/ther agt pvrt facet jt crv/thrc 1 level INJECTION BLOCK NERVE Thoracic spondylosis without myelopathyFREMHCA Florida [facility] Hospital Immunizations Immunization DateImmunizationNotesCare OfteudgnFnetodyu80-38-7684spdlialvt, high dose seasonal, preservative-freeLisa Aichholz ACCOUNT MANAGEMENT SPECIALIST Work Phone: [facility] DivisionWnmnqhxeae85-19-6646nktonimad virus vaccine, unspecified formulationOhio State University [facility] Mhqmvw89-59-1673tnwaxoelv virus vaccine, unspecified formulationLisa Aichholz ACCOUNT MANAGEMENT SPECIALIST Work Phone: [facility] DivisionUmdhiqtduc49-33-4829untfajrtcogw polysaccharide vaccine, 23 valentLisa Aichholz ACCOUNT MANAGEMENT SPECIALIST Work Phone: [facility] DivisionGcunenuewo34-16-3194fuccevruv virus vaccine, unspecified formulationJENNIFER EUGENIO [facility] [place] 211171-06-2023Influenza, High-dose Seasonal, Quadrivalent, Preservative Free Marisol Aichholz ACCOUNT MANAGEMENT SPECIALIST Work Phone: [facility] DivisionUipdonccxl63-05-8556GNVP-VpR-6 (COVID-19) mRNAMUL.ORD![id number] Lue [facility] [place] 211171-18-2022influenza virus vaccine, unspecified formulationKathy Lue [facility] [place] 211171-18-2022Influenza, High-dose Seasonal, Quadrivalent, Preservative Free Marisol Aichholz ACCOUNT MANAGEMENT SPECIALIST Work Phone: [facility] DivisionAicxikpciq52-36-1802cmelajeju virus vaccine, unspecified formulationLisa Aichholz ACCOUNT MANAGEMENT SPECIALIST Work Phone: noPershing Memorial HospitalVwtwmsetxm37-76-0146fwylkhcctkcq polysaccharide vaccine, 23 valentLisa Aichholz ACCOUNT MANAGEMENT SPECIALIST Work Phone: [facility] DivisionCasycdvuup54-87-8835RLXQ-UsB-5 mRNA (xvwviveyvoi-tnfp-uygztgi) vaccineKathy Lue [facility] 211171-08-2021influenza virus vaccine, unspecified formulationKathy Lue [facility] 211171-08-2021Influenza, High-dose Seasonal, Quadrivalent, Preservative Free Marisol Boyce ACCOUNT MANAGEMENT SPECIALIST Work Phone: [facility] DivisionHgnnrdlvlx45-75-5385CMNE-WfZ-1 (COVID-19) mRNA BNT-162b2 vaxKathy Lue [facility]03-04-2021SARS-CoV-2 (COVID-19) mRNA-1273 vaccineRobert RICE [facility] [id number]-CmC-8 (COVID-19) mRNA BNT-162b2 vaxKathy Lue [facility] on above:Result Comment: 2022-06-18: [id number]-NqY-4 (COVID-19) mRNA-1273 vaccineRobert [employer] [facility] [id number]-BzL-4 (COVID-19) mRNA BNT-162b2 vaxKathy Lue [facility] on above:Result Comment: 2022-06-18: [id number] virus vaccine, unspecified formulationKathy Lue [facility]09-04-2020Influenza, High-dose Seasonal, Quadrivalent, Preservative Free Marisol Aichholz ACCOUNT MANAGEMENT SPECIALIST Work Phone: [facility] DivisionOlloxxzacs51-54-9703vfzhdmzhlswi conjugate vaccine, 13 valentKathy Lue [facility]09-01-2020influenza virus vaccine, unspecified formulationRobert RICE [facility] [id number] virus vaccine, unspecified formulationKathy Lue [facility] 211170-04-2019Seasonal trivalent influenza vaccine, adjuvanted, preservative freeLisa Aichholz ACCOUNT MANAGEMENT SPECIALIST Work Phone: [facility] DivisionOgrggevwud39-82-1401qhbwpmagm virus vaccine, unspecified formulationKathy Lue [facility] 211171-03-2018influenza, high dose seasonal, preservative-freeLisa Aichholz ACCOUNT MANAGEMENT SPECIALIST Work Phone: [facility] DivisionQvmpgxrsdf46-19-8846ackascucs virus vaccine, unspecified formulationKathy Lue [facility] 211171-17-2017Seasonal trivalent influenza vaccine, adjuvanted, preservative freeLisa Aichholz ACCOUNT MANAGEMENT SPECIALIST Work Phone: [facility] DivisionGzyplfpgoy64-45-9384paczyxgzn virus vaccine, unspecified formulationKathy Lue [facility] 211170-23-2015influenza, high dose seasonal, preservative-freeLisa Aichholz ACCOUNT MANAGEMENT SPECIALIST Work Phone: [phone] [place], [place] [address]Hxsemfpysi21-30-1389rsqeqxqrtoyr polysaccharide vaccine, 23 valentKathy Lue [facility] 211172-16-2014influenza virus vaccine, unspecified formulationKathy Lue [facility] [place] 211172-16-2014influenza, seasonal, injectableLisa Aichholz ACCOUNT MANAGEMENT SPECIALIST Work Phone: [facility] DivisionSfhnwjfjrn34-08-7412rjibmc vaccine, liveKathy Lue [facility] 211172-16-2014zoster vaccine, unspecified formulationMer[facility]10-16-2013influenza virus vaccine, unspecified formulationKathy Lue [facility] [place] 211170-16-2013influenza, seasonal, injectableLisa Aichholz ACCOUNT MANAGEMENT SPECIALIST Work Phone: [facility] Payers DatePayer CategoryPayerPolicy [id number] Health InsuranceMEDICAL MUTUAL Member Subscriber Plan / Payer (Effective 2021- Present) Name: Kimmy Mcarthur Relation to Subscriber: Self Name: Kimmy Mcarthur Payer ID: Not on file Type: Not on file Address: [address] [id number] Commercial IndemnityMEDICAL MUTUAL [id number] 1.2.840.036559.1.13.693.2.7.3.924085.315 2012Medicare 1.2.840.542406.1.13.693.2.7.3.724072.315 [id number] 1960 [id number] 2.840.1.741307.3.579.2.593 [id number] 2.840.1.570117.3.579.2.87904-93-3976Dgxdsyo8207500 2.840.1.154130.3.579.2.66890-02-6406Cegxoru3481734 2.16840.1.538332.3.579.2.27888-04-0201Lcyffak2187383 2.16840.1.649364.3.579.2.63160-55-2506Tvuyzqb865537076 2.16.840.1.970457.3.579.2.559339-05-4609Pxnqlrb91313948 2.16.840.1.203446.3.579.2.370242-02-3847Sqwiedk61499957 2.16840.1.679510.3.579.2.35991-92-9741Rxeulmv02278940 2.16840.1.303910.3.579.2.09198-67-5694Alxqndn77147881 2.16.840.1.250974.3.579.2.31538-92-5394Iqokhfb72589738 2.16.840.1.847880.3.579.[id number] 2.16.840.1.673085.3.579.[id number] 2.16.840.1.004407.3.579.2.[id number] 2.16840.1.327756.3.579.2.915632-88-9183Ahesbnz9101284 2.16840.1.575683.3.579.2.052390-85-1723Ywbhngl9098223 2.840.1.606715.3.579.2.925038-24-3667Flyblje3278352 2.16840.1.564757.3.579.2.390785-55-7158Zfykhad2188422 2.16840.1.911424.3.579.2.364174-10-1643Pbufffb294468619 2.16840.1.025505.3.579.2.386045-69-9639Dtnzxlk772537538 2.16840.1.198965.3.579.2.992145-29-2055Jbvghrz733117556 2.16840.1.515298.3.579.2.154745-16-6068Qwpcrzo066720321 2.16.840.1.414606.3.579.2.176154-81-9282Eukocbj355214531 2.16840.1.927369.3.579.2.447335-01-9872Ejgpxkx949726696 2.16.840.1.594327.3.579.2.887678-88-7357Epylqsg79107143 2.16.840.1.469489.3.579.2.501529-13-2739Gbhzkba07723725 2.16.840.1.707472.3.579.2.756302-18-8834Guhfuro18451578 2.16.840.1.869922.3.579.2.8[id number] 2.16.840.1.962102.3.579.2.993073-54-3915Tlkeibm16538771 2.16.840.1.367177.3.579.2.109438-31-1365Hnzkwej68965548 2.16840.1.691062.3.579.2.687792-67-7935Mlunabn49896164 2.16.840.1.816800.3.579.2.558209-56-5147Sddtdhf48192536 2.16.840.1.033456.3.579.2.923722-16-8002Vhxywkg90836306 2.16.840.1.633580.3.579.2.150150-44-8869Qqyprho59838129 2.16.840.1.424508.3.579.2.755500-09-3241Cxoucpe14860653 2.16.840.1.439463.3.579.2.773714-52-8745Pdulugd72060180 2.16.840.1.825309.3.579.2.192677-97-2604Mdtknto35968135 2.16.840.1.577009.3.579.2.879974-93-0791Ecjczrw26257220 2..840.1.459226.3.579.2.499933-50-7217Aderfcf90740027 2..840.1.116494.3.579.2.758869-64-2902Wjbezfj80448641 2.16.840.1.599633.3.579.2.6959Hcwdntn26901538 2..840.1.469432.3.579.2.531 Social History DateTypeDetailFacilityStart: 06-18-2021 End: 37-14-0974Vdcusfc smoking statusEx-smoker (finding)[facility] Start: 04-11-2023 End: 51-04-3952Gkl Assigned At BirthMaleExec[facility] Start: 64-31-3295Kuebxjh smoking statusNeverExec[facility] End: 02-68-4430Dlfrzpx of tobacco useCurrent smokerNOMS Healthcare End: 07-49-5378Lwphkpc of tobacco useCigarette SmokerNOMS HealthcareStart: 04-11-2023 End: 78-38-3554Uiabpcu use and exposureSmokeless tobacco non-userNOMS Healthcare Start: 04-11-2023 End: 73-41-4207Rlyczay intakeCurrent drinker of alcohol (finding)[facility] Start: 04-11-2023 End: 26-24-4792Xdtqmnh of Social functionNOMS HealthcareStart: 93-35-6834Mgwgcme Commentmonthly or lessNOMS HealthcareStart: 99-28-0641Pzx Assigned At BirthNot on fileNOMS HealthcareWithin the last year, have you been afraid of your partner or ex-partner?NoNOMS HealthcareAre you now , , , , never or living with a partner?MarriedNOMS HealthcareHow often to you have a drink containing alcohol?Monthly or lessNOMS HealthcareHow often do you have 6 or more drinks on 1 occasion?NeverNOMS HealthcareDo you feel stress - tense, restless, nervous, or anxious, or unable to sleep at night because yourmind is troubled all the time - these days [OSQ]To some extentNOMT Healthcare(I/We) worried whether (my/our) food would run out before (I/we) got money to buy more.Never trueNOMT HealthcareStart: 81-90-8336Ctqsfna Commentrare [facility] SystemStart: 03-05-2013 End: 09-85-6519WaoGkfy (finding)[facility] Hospitaltart: 02-58-9879Txkqmnj smoking status NHISSmokes tobacco dailyYadkin Valley Community Hospitaltart: 04-04-2024 End: 60-06-1527Csqlezjre beverage intakeEx-drinker (finding)[facility] Hospitaltart: 44-55-7657Krdbdgg CommentPack every 3 weeks as of 04/04/24[facility]ont HospitalTobacco smoking status NHISUnknown if ever smokedKettering Health Washington Township Work Phone: Start: 70-35-5999Uri Assigned At [facility] Start: 29-13-4580Uxluhrl CommentrarelCleveland Clinic [facility] Procedure CodeEquipment CodeEquipment Original TextEquipment IdentifierDates Start: 04-14-2019 End: 03-05-2024 Functional Status TrhzCpzjgclihdZxihpmKzjpanxh02-26-3805Mmkszqc Health Questionnaire 2 item (PHQ- 2) [Reported][facility] DivisionLrfpaaxfae19-74-1957Fjd difficult have these problems made it for you to do your work, take care of things at home, or get along with other people?Not difficult at allHCA Midwest DivisionOynxlaandh46-86-6394Wtukfebhhs StatusN/A [facility]03-24-2023Functional StatusN/AExec[facility] Clinical Notes 06-18-2021 to 01-16-2025 Note Date & YpdlMafkTwzoferv49-31-4950 NoteHNO ID: [id number] Author: ZOEY MARX PA-C Service: ? Author Type: Physician Pneudraulic Systems Mechanic Type: Progress Notes Filed: 01/16/2025 12:14 Note Text: [facility] ANEMIA CONSULTATION NOTE Hematologic Oncology and Blood Disorders PATIENT NAME: Kimmy Mcarthur DATE OF SERVICE: January 16, 2025 (Elements copied from my note dated 12/25/2024, have been reviewed and updated where appropriate, and all reflect current assessment and medical decision making during today's encounter, January 16, 2025) CHIEF COMPLAINT: Anemia HISTORY OF THE PRESENT ILLNESS: Initial visit: The patient is referred to Hematology today [...] amiodarone for his a-fib. He presented to [place] [facility] on 11/27/24 with shortness of breath with exertion and feeling tired all of the time. Labs found he had a hemoglobin of 7.1. Iron studies showed a % saturation of 4.1, TIBC 339, Iron 14.0 and transferrin of 279. No [...] panel. He received 2 iron infusions at [place] on 12/10/24 and 12/17/24. He felt better initially after the iron infusions. He isn't getting dizzy as often, but he is still weak. Breathing is also improved. No black stools or melena. Darker stools since starting iron pills. He is having constipation issues as well. Last GI evaluation : EGD 04/11/24 [place] ([place]) Squamocolumnar junctional mucosa with reflux esophagitis and intestinal metaplasia c/w Riley's esophagus Colonoscopy 04/11/24 [place] ([place]) Rectosigmoid junction polypectomy: Tubular adenoma He denies [...] the thoracic and lumbar spine done at [place] last week (Results are not available to me at this time). Otherwise denies any pain elsewhere. Interval History: 01/16/25: Rush returns for follow up. Overall feels well. Does have some fatigue, but nothing like before. He is scheduled at [facility] on 01/25 for injections in his back at pain clinic. Today we reviewed his labs: improving hemoglobin 12.2 but continued mildly low platelets 148K. Reviewed anemia work up findings, including elevated EPO level (74.5) with no known cause. He did stop taking his oral iron. He denies any new medications, h/o radiation, or chemical exposures in the past to explain his Symptoms/History Related to Anemia: Fatigue: Yes Pica: [...] GALLBLADDER SHOULDER SURGERY HX Left CURRENT MEDICATIONS: insulin glargine,hum.rec.anlog (LANTUS U-100 INSULIN SQ) Inject subcutaneously. lisinopril (ZESTRIL) 10 mg tablet Take 10 mg by mouth once da (more content not included)...[facility]10-14-2025 Miscellaneous Notes* Telephone Encounter - Swati Cooney RN - 01/08/2025 3:36 PM EDT Approval received for patient to hold Farxiga x 3 days prior to procedure with MAC sedation. Chart to [facility] for scheduling. Will need to go to for authorization. * Telephone Encounter - Bruna Camacho CNA - 01/08/2025 3:36 PM EDT Kimmy is scheduled 01/25. His last dose of Farxiga will be 01/21 documented in this encounterMer[facility]10-14-2025 Telephone encounter Note* Telephone Encounter - Swati Coonye RN - 01/08/2025 3:36 PM EDT Approval received for patient to hold Farxiga x 3 days prior to procedure with MAC sedation. Chart to [facility] for scheduling. Will need to go to for authorization. [facility]10-14-2025 Telephone encounter Note* Telephone Encounter - Bruna Camacho CNA - 01/08/2025 3:36 PM EDT Kimmy is scheduled 01/25. His last dose of Farxiga will be 01/21 [facility]10-14-2025 History of Present illness Narrative* BK Alonso - 01/08/2025 10:45 AM EDT [facility] [address] [place] [address] Patient: Kimmy Mcarthur Sex: male : 1945 Age: 79 y.o. PCP: MARISOL BOYCE, NGUYEN-SECURITY FLEX UTILITY OFFICER 01/08/2025 Kimmy Mcarthur is here for a(n) follow up. Patient was last seen on June of 2022. Patient reports having mid back and lower back pain that worsens with prolonged standing or ambulation. Currently rates pain a 4/10 and can get up to 10/10. Patient states he only gets relief when he lies flat on the floor. Chief Complaint Patient presents with Back Pain HPI: Left Sacroiliac Joint Injection on 10-20-18. Left L 4.5 NRI on 09/03/2019 with no relief. Left L3/4 5/1 MBB 09/28/2019 with no relief. Lt hip inj w/ no relief, NRI w/ relief. Right L 3/4, 4/5 medial branch block on 10/10/20 w/ 100% relief. 01/29/22 Mickey T 7/8 8/9 MBB w/80-90% relief for 2 hours 03/05/22 Mickey T 7/8, 8/9 MBB with 80-90% relief for about 2-4 hours then return to baseline by evening. . 04/09/2022 Right T 7/8, 8/9 and 04/23/2022 LeftT 7/8, 8/9 RFAs with 60% relief until November 2024 Back Pain This is a chronic problem. The current episode started more than 1 year ago. The problem occurs daily. The problem has been gradually worsening since onset. The pain is present in the lumbar spine (midback and lower). The quality of the pain is described as aching. The pain does not radiate. The pain is at a severity of 4/10 (can get up to 10/10). The pain is moderate (to severe). The pain is Worse during the day. The symptoms are aggravated by standing (ambulation). Stiffness is present: NA. Associated symptoms include weakness (generalized). Pertinent negatives include no abdominal pain, bladder incontinence, bowel incontinence, chest pain, fever, leg pain, numbness or tingling. (Pain to mid thoracic region. No radiation. Patient states pain goes to 6/10 with activity and subsides with rest.) Risk factors include poor posture and lack of exercise. Treatments tried: tylenol with no relief. The treatment provided mild relief. The effect of pain on patient's ADLS: Moderate Impairment. Past Medical History: Diagnosis Date Anemia Bursitis 2019 right elbow Coronary artery disease COVID-19 11/2021 [place] 2[place] [place] Dizziness HL (hearing loss) hearing aid both ears Hyperlipidemia Hypertension Injury of back Low back pain [place] [place] 2004 Pancreatitis 2017 Peripheral arterial occlusive disease Visual impairment glasses Wears dentures Past Surgical History: Procedure Laterality Date ARTHROSCOPY SHOULDER WITH SUBACROMIAL DECOMPRESSION AND DEBRIDEMENT TYPE 1 SLAP LESION Left 01/11/2017 Performed by Jr Mishel Gifford DO at [facility] CARDIAC CATHETERIZATION 5 stents, most recent placed 12/2004 CATARACT EXTRACTION CHOLECYSTECTOMY COLONOSCOPY N/A 10/26/2018 Performed by Sabino Mauricio DO at [facility] EGD N/A 05/03/2019 Performed by Sabino Mauricio DO at [facility] EGD, DILATATION N/A 05/03/2019 Performed by Sabino Mauricio DO at [facility] INJECTION BLOCK NERVE MEDIAL BRANCH: bilat T 10/02 11/03 Bilateral 03/05/2022 Performed by Gabriel Hanson MD at [facility] INJECTION BLOCK NERVE MEDIAL BRANCH: bilat T 10/02 11/03 Bilateral 01/29/2022 Performed by Gabriel Hanson MD at [facility] INJECTION BLOCK NERVE MEDIAL BRANCH: right L 3/4 4/5 Right 09/05/2020 Performed by Gabriel Hanson MD at [facility] INJECTION BLOCK NERVE MEDIAL BRANCH: right L34 45 Right 10/10/2020 Performed by Gabriel Hanson MD at [facility] LARGE JOINT BURSA: left hip Left 04/13/2019 Performed by Gabriel Hanson MD at [facility] INJECTION MEDIAL BRANCH NERVE BLOCK: left L34 4551 Left 10/26/2019 Performed by Gabriel Hanson MD at [facility] INJECTION SI JOINT-Left Left 10/20/2018 Performed by Gabriel Hanson MD at [facility] INJECTION STEROID EPI 1 WITH SEDATION: left T19bgpse Left 08/03/2019 Performed by Gabriel Hanson MD at [facility] INJECTION STEROID EPI 1 WITH SEDATION: left K86fntra Left 09/03/2019 Performed by Gabriel Hanson MD at [facility] ADELE PROCEDURE SHOULDER Left 01/11/2017 Performed by Jr Mishel Gifford DO at [facility] RADIOFREQUENCY ABLATION SPINAL: Left T 7/8 8/9 Left 04/23/2022 Performed by Gabriel Hanson MD at [facility] RADIOFREQUENCY ABLATION SPINAL: Right T 7/8 8/9 Right 04/09/2022 Performed by Gabriel Hanson MD at [facility] No Known Allergies Family History Problem Relation Age of Onset No Known Problems Mother Diabetes Father Arthritis Father Lung cancer Father Diabetes Maternal Grandfather Social History Socioeconomic History Marital status: Spouse name: Not on file Number of children: Not on file Years of education: Not on file Highest education level: Not on file Occupational History Not on file Tobacco Use Smoking status: Former Current packs/day: 0.00 Types: Cigarettes Quit date: 2020 Years since quittin.7 Smokeless tobacco: Never Tobacco comments: Pack every 3 weeks as of 04/04/24 Vaping Use Vaping status: Never Used Substance and Sexual Activity Alcohol use: Not Currently Comment: rarely Drug use: No Sexual activity: Defer Other Topics Concern Not on file Social History Narrative Not on file Social Drivers of Health Financial Resource Strain: Low Risk (11/10/2023) Received from [facility] Overall Financial Resource Strain (CARDIA) Difficulty of Paying Living Expenses: Not hard at all Food Insecurity: No Food Insecurity (01/08/2025) Hunger Screening Food Insecurity - Worry: Never True Food Insecurity - Inability: Never True Transportation Needs: No Transportation Needs (11/10/2023) Received from [facility] Transportation In the past 12 months, has lack of transportation kept you from medical appointments or from getting medications?: No Lack of Transportation (Non-Medical): Not on file Physical Activity: Inactive (06/07/2023) [facility] Exercise Vital Sign Days of Exercise per Week: 0 days Minutes of Exercise per Session: 0 min Stress: Stress Concern Present (06/07/2023) Received from [facility] [place] [employer] - Occupational Stress Questionnaire Feeling of Stress : To some extent Social Connections: Moderately Integrated (06/07/2023) Received from [facility] Social Connection and Isolation Panel [NHANES] Frequency of Communication with Friends and Family: More than three times a week Frequency of Social Gatherings with Friends and Family: Once a week Attends Evangelical Services: More than 4 times per year Active Member of Clubs or Organizations: No Attends Club or Organization Meetings: Never Marital Status: Interpersonal Safety: Not At Risk (11/10/2023) Received from [facility] Humiliation, Afraid, Rape, and Kick questionnaire Fear of Current or Ex-Partner: No Emotionally Abused: No Physically Abused: No Sexually Abused: No Housing Instability: Low Risk (11/10/2023) Received from [facility] Housing Stability Vital Sign Unable to Pay for Housing in the Last Year: Not on file Number of Places Lived in the Last Year: Not on file In the last 12 months, was there a time when you did not have a steady place to sleep or slept in ashelter (including now)?: No Review of Systems Constitutional: Negative. Negative for chills and fever. HENT: Negative. Negative for congestion and sore throat. Eyes: Negative. Respiratory: Negative. Cardiovascular: Negative. Negative for chest pain. Gastrointestinal: Negative. Negative for abdominal pain and bowel incontinence. Endocrine: Negative. Genitourinary: Negative. Negative for bladder incontinence. Musculoskeletal: Positive for back pain. Skin: Negative. Allergic/Immunologic: Negative. Neurological: Positive for weakness (generalized). Negative for tingling and numbness. Hematological: Negative. Psychiatric/Behavioral: Negative. Vital Signs: BP 113/49 (BP Site: Left Arm, BP Postition: Sitting) Pulse 54 Resp 20 Ht 182.9 cm (6') Wt 76.7 kg (169 lb) SpO2 97% BMI 22.92 kg/m Physical Exam: GENERAL - Healthy patient that appears stated age. HEENT - Normocephalic / Atraumatic, Extraoccular movements intact, trachea midline, thyroid within normal limits. CV - pulse regular, Warm extremities with appropriate color of nailbeds. RESP - No obvious wheezing, No Shortness of Breath, No overexertion response to exam maneuvers. COORDINATION - remains intact. PSYCH - Alert and Oriented x4, Attentive and appropriate, constitutionally normal, displays normal mood and affect per situation, answered questions appropriately during examination, demonstrated appropriate attention during discussion, demonstrated appropriate cognitive reasoning and understandingof the medical condition by asking appropriate questions regarding the diagnosis and risks/benefits/alternatives of treatment modalities. No obvious deficits in memory, reasoning, or intellect. Thoracic: SKIN - No rashes or bruising in the area of the patient s pain. LYMPH NODES - demonstrate no obvious enlargement. COORDINATION remains intact. EXTREMITIES - Extremities are warm, with minimal edema and palpable pulses. Tenderness to palpation noted in the thoracic spine and paraspinal musculature. Pain is elicited with flexion, extension, and lateral rotation of the thoracic spine. Range of motion is diminished with these motions due to pain. Facet palpation is noted to be painful and facet loading maneuvers elicit pain that is concordant with the patient s normal pain complaints. Some muscle spasm is noted in the overlying musculature. STRENGTH - noted to be 5 out of 5 all muscle groups bilateral upper and lower extremities. No notable atrophy, fasciculations or spasm. SENSORY - No notable sensory deficits in the thoracic dermatomal distributions to touch or pinprick. Assessment/Treatment Plan: Rush was seen today for back pain. Diagnoses and all orders for this visit: Thoracic spondylosis without myelopathy - Case request operating room: INJECTION BLOCK NERVE: bilat T78 89 Bilateral T7/8, 8/9 Facet Injection/Medial Branch Block - under fluoroscopy It is hopeful that the described procedure will provide symptomatic pain relief. It is felt to be medically necessary noting that the patient has tried and failed more conservative modalities of therapy and this is the next most appropriate step. The procedure was described in detail to the patientas well as the potential benefits of pain reduction alongside risks of the procedure and alternatives. Risks were described as including, but not limited to bleeding, infection, nerve damage, spinal cord injury, paralysis, stroke, dural puncture headache, and medication reaction. The patient expressed understanding regarding the risks and benefits and wishes to proceed. Diagnostic facet injections and medial branch blocks should provide information to confirm that thenoted facet arthropathy is the patient s most significant pain generator. If this provides significant but only temporary pain relief, the patient may in the future be a candidate for radiofrequency denervation of the facet joints to provide pain relief for approximately 1 year. Follow up 2 weeks after procedure The medications prescribed have been reviewed for medication interactions/contraindications and/or for upcoming procedures: continue current medication regimen without any changes. DISCUSSION: Treatment options discussed with patient and all questions answered to patient's satisfaction. Discussed the rules and regulations surrounding prescription of opioids and compliance at length. Failure to follow the rules and regulation will result in tapering and discontinuation of medications if applicable. Prescribed medication that requires intensive monitoring for toxicity We do not currently prescribeany controlled substance from this practice. Treatment plans discussed but not opted for at this time: Thoracic RFA. Patient would like to proceed with the current outlined treatment plan before moving forward with any other options. The spine model was demonstrated and MRI was reviewed and used to explain the condition. Chronic conditions not treated during this visit that affected my overall medical decision making: Comorbidity- Diabetes The patient has a history of diabetes mellitus currently managed with medications. This will need to be considered prior to any procedure that would require the injection of steroid in that the patient may experience a transient increase in glucose as a result. Additional consideration will need minnie given to timing the procedure early in the morning in that the patient will need to be fasting prior to the administration of anesthesia. Every effort will be made to perform the procedure as a 1st case due to this condition. And the patient will be instructed to hold their diabetic medications on that morning. If necessary, a blood glucose test can also be performed that morning. The risks/ benefits/ and alternatives will be weighed and explained to the patient prior to any procedure. Comorbidity- Anticoagulation therapy The patient is currently being treated with an anticoagulant. For this reason, we will need to confer with the patients other physicians to determine if it is safe to discontinue this therapy for anyplanned procedure. If it is determined that discontinuation would be a significant risk, we will have to weigh the potential benefits to the procedure. It may be necessary to delay or defer the procedure altogether. However, if the patient feels the potential benefit outweighs the risk and is willing to assume the responsibility, we may elect to proceed while anticoagulated despite the increased risks of bleeding, hematoma formation, and possible paralysis. OARRS: Reviewed. Scribe Statement: Marisol Overton CNA, scribed for and in the presence of BK ALONSO who performed the above service. Marisol Rock CNA 01/08/25 1133 Marisol Rock CNA 01/09/25 0837 BK Alonso 01/10/25 1208 documented in this encounterOhioHealth Arthur G.H. Bing, MD, Cancer CenterBrickfish Three Rivers Health [id number] Instructions* Patient Instructions* Marisol Rock CNA - 01/08/2025 10:45 AM EDT Facet Injection / Medial Branch Block (MBB) / Sacroiliac (SI) Joint Injection / Cluneal NB A facet injection, sacroiliac joint injection, and cluneal nerve block (NB) are injections of localanesthetic and steroid into a joint in the spine. A medial branch block is similar, but the medication is placed outside the joint space near the nerve that supplies the joint called the medial branch (steroid may or may not be used). You may require multiple injections depending upon how many joints are involved. How Long Will This Procedure Last? The extent and duration of pain relief may depend on the amount of inflammation and how many areas are involved. Other coexisting factors may be responsible for your pain. If your pain goes away for a short time, but then returns, you may be a candidate for radiofrequency ablation (RFA). Activity Be active. Attempt activities and movements that typically cause pain to see if it feels better while doing them. We will give you a pain diary. Please fill this out as directed by your nurse in pre-op. This will help your doctor determine the effectiveness of the injection, and how to proceed. Bring the pain diary with you to your follow-up appointment. Medications You should not take your pain medications for 4-6 hours before or after the injection in order to properly diagnose if the injection provides adequate relief. Resume your routine medications after your procedure. You may resume blood thinners per your regular schedule after the procedure. If you received sedation: If you received sedation for your procedure, you may feel sleepy or not yourself for several hours today. For the next 24 hours avoid activities that requires alertness or coordination. This includes: Driving or operating heavy machinery Using power tools Consuming alcohol Do not make important or complex decisions or sign legal documents in the next 24 hours. Other Instructions: If you feel severe pain at the injection site with swelling and redness, increased leg weakness, a fever of 101 or higher, headache (or worsening headache), changes in vision or urinary retention: Please call the office at , or have someone take you to the nearest emergency room. Tellthe emergency room staff that you recently had a spine injection. A doctor must evaluate you for bleeding and injection complications. If you lose control over bowel, bladder, or legs: Go to the nearest emergency room. documented in this encounterMer[facility]10-[facility]-2025 NoteCardiovascular Medicine [facility] SUBJECTIVE Chief Complaint Patient presents with Follow-up Patient is here today for a follow appointment. Patient recently wore a heart monitor and recent [facility] follow up. Patient was diagnosed while in the hospital with anemia. Patient had 2 units of blood and 2 iron infusions.Patient denies chest pain. Patient complains of SOB?BALBUENA, leg swelling. Coronary Artery Disease Hypertension Valve Disorder Non rheumatic mitral valve regurgitation Atrial Fibrillation Hyperlipidemia NSTEMI Shortness of Breath BALBUENA Fatigue Sleeps a lot per Kimmy Mcarthur is a 79 y.o. male here for follow-up. HPI PMHx: CAD s/p RCA stent 2022, PAF, HFpEF, PAD, valve disorder, IDDM 01/03/2025 Since last seen he was at [facility] for c/o SOB, fatigue, low BP. He was found to be anemic with hgb of 7.1. No evidence of GI blood loss. He received 2 units of PRBCs. Iron studies showed iron deficiency anemia superimposed on top of anemia of chronic disease. He will be following with hematology to further investigate for causes of anemia. He has been feeling better since the blood/iron transfusions. Denies c/o CP, dyspnea, palpitations, orthopnea, PND. Problem List[1] Medical History[2] Family History[3] Social History[4] Allergies[5] OBJECTIVE Visit Vitals BP 108/62 (BP Location: Left arm, Patient Position: Sitting) Pulse 52 Ht 1.829 m (6') Wt 77.1 kg (170 lb) SpO2 98% BMI 23.06 kg/m??? Smoking Status Former BSA 1.98 m??? Medications: Current Medications[6] Physical Exam Constitutional: Appearance: Normal appearance. He is normal weight. HENT: Head: Normocephalic and atraumatic. Right Ear: External ear normal. Left Ear: External ear normal. Eyes: Extraocular Movements: Extraocular movements intact. Pupils: Pupils are equal, round, and reactive to light. Neck: Vascular: Carotid bruit present. Cardiovascular: Rate and Rhythm: Normal rate and regular rhythm. Pulses: Normal pulses. Heart sounds: Normal heart sounds. Pulmonary: Effort: Pulmonary effort is normal. Breath sounds: Normal breath sounds. Abdominal: General: Bowel sounds are normal. Palpations: Abdomen is soft. Musculoskeletal: General: Normal range of motion. Cervical back: Neck supple. Right lower leg: No edema. Left lower leg: No edema. Skin: General: Skin is warm and dry. Neurological: General: No focal deficit present. Mental Status: He is alert and oriented to person, place, and time. Psychiatric: Mood and Affect: Mood normal. Behavior: Behavior normal. Thought Content: Thought content normal. Judgment: Judgment normal. Labs: No results found for: EXTCMP , BMPR1A , CBCDIF , BNP , LASAP , RED No visits with results within 6 Month(s) from this visit. Latest known visit with results is: No results displayed because visit has over 200 results. Testing/Procedures: Event monitor 11/21/2024 SR Symptoms correlated with sinus rhythm Infrequent ectopy Carotid US 10/03/2023 Conclusions: Antegrade flow of bilateral vertebral arteries. 50-69% stenosis in right internal carotid artery, closer to the higher end of the range, correlatee with with other imaging if clinically needed as calcified plaques interfering with imaging. 50-69% stenosis in left internal carotid artery, lower endo of the range. More than 50% stenosis in the right external iliac artery. 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 Javed Peripheral artery disease: Carotid artery stenosis, bilaterally 50-69% Tobacco dependence syndrome PLAN: -Reviewed his most recent event monitor results with him. No significant arrhythmias found. -He recently was found to have significant anemia requiring blood and iron transfusions. He will be seeing hematology for further investigations into causes of anemia. -Follow-up carotid US ordered -Follow-up ECHO ordered -Given pt's acute anemia require blood transfusion, discussed considering pt for an LAAO once he has seen hematology and causes of blood loss have been investigated. He expressed interest. Information provided. Pt will plan to discuss with his primary infrastructure consultant. Follow up in about 3 months (around 04/05/2025). Dwain Portillo, SECURITY FLEX UTILITY OFFICER [employer] (more content not included)...[facility] 12-25-2024 NoteHNO ID: [id number] Author: ZOEY MARX PA-C Service: ? Author Type: Physician Pneudraulic Systems Mechanic Type: Progress Notes Filed: 01/14/2025 15:22 Note Text: [facility] ANEMIA CONSULTATION NOTE Hematologic Oncology and Blood [...] amiodarone for his a-fib. He presented to [place] [facility] on 11/27/24 with shortness of breath with exertion and feeling tired all of the time. Labs found he had a hemoglobin of 7.1. Iron studies showed a % saturation of 4.1, TIBC 339, Iron 14.0 and transferrin of 279. No [...] panel. He received 2 iron infusions at [place] on 12/10/24 and 12/17/24. He felt better initially after the iron infusions. He isn't getting dizzy as often, but he is still weak. Breathing is also improved. No black stools or melena. Darker stools since starting iron pills. He is having constipation issues as well. 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 Colonoscopy 04/11/24 [place] Rectosigmoid junction polypectomy: Tubular adenoma He denies [...] the thoracic and lumbar spine done at [place] last week (Results are not available to [...] ALLERGIES No Known Allergies FAMILY HISTORY: FAMILY HISTOR (more content not included)...[facility]09-10-2025 Evaluation note* Diagnosis Onset Date Resolution Status Admit Date Atrial fibrillation acuteSeptember 2024 10:52amEssential hypertensionacuteSeptember 2024 10:52amIDA (iron deficiency anemia)acuteSeptember 2024 10:52amLumbar spondylosisacuteSeptember 2024 10:52amDizziness and giddinessacuteOctober 2024 11:05amMultilevel degenerative disc diseaseacuteOctober 2024 11:05am [facility] Work Phone: 1(721) 248-916109-10-2025 Evaluation note* Diagnosis Onset Date Resolution Status Admit Date Atrial fibrillation acuteSeptember 2024 10:52amEssential hypertensionacuteSeptember 2024 10:52amIDA (iron deficiency anemia)acuteSept2024 10:52amLumbar spondylosisacuteSeptember 2024 10:52amDizziness and giddinessacuteOctober 2024 11:05amMultilevel degenerative disc diseaseacuteOctober 2024 11:05amAtrial fibrillationacuteOctober 2024 9:28amDizziness and giddiness acuteOctober 2024 9:28amEssential hypertensionacuteOctober 2024 9:28am WESTLEY (iron deficiency anemia)acuteOctober 2024 9:28amLumbar spondylosisacute October 2024 9:28am [facility] Work Phone: 1(478) 591-922607-15-20[facility] Chief Complaint: [...] Final Discharge Diagnosis: 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 Dear Dr. Carli MD, [facility] is advised to follow up with you within 1-2 weeks. Follow-up with: Cardiology, CHF clinic, and CT Surgery Scheduled appointments: Future Appointments Date Time Provider Department Center 10/13/2023 11:00 AM Natasha Campo MD [facility] 11/07/2023 7:30 AM [facility] MR 2 [facility] ORTH MR MPORTHO 11/08/2023 2:00 PM [facility] Your medication list START taking [...] Your Medications These medications were sent to [facility] [address] [address] ??? amiodarone 200 mg tablet ??? carvedilol 3.125 mg tablet ??? lisinopril 20 mg tablet These medications were sent to [facility] (more content not included)... [facility]07-02-2025 History of Present illness Narrative* Marisol Boyce, [place] - 09/26/2024 10:15 AM EDTAssociated Problem(s): Type [...] spinal stenosis 06/07/2023 Coronary artery disease involving habematolel coronary artery of habematolel heart without angina pectoris 03/02/2023 COVID-19 virus [...] filling lisinopril 5mg dose Also contacted the [facility] pharmacy to have them deactivate the lisinopril 5mg script spoke withJuliet at 10:18am Riley esophagus Relevant Medications omeprazole [...] filling lisinopril 5mg dose Also contacted the [facility] pharmacy to have them deactivate the lisinopril 5mg script spoke withJuliet at 10:18am * Marisol Boyce NP - 09/26/2024 6:02 AM EDTAssociated Problem(s): Dizziness and giddiness Last appt had some mild orthostatic changes in BP Cardiology had him stop amlodipine No orthostatics today ?side effect meds, vs cervical pathology, vascular? Send to see neuro documented in this encounterHCA Midwest [id number] Telephone encounter Note* Telephone Encounter - Marisol Boyce NP - 09/26/2024 9:24 AM EDT Please contact company regarding his eliquis to see why he has not received it yet?? Also call pt let him know do NOT take the 5mg lisinopril, he should only be taking the 20mg lisinopril dose LA [facility] [id number] Miscellaneous Notes* Telephone Encounter - Marisol Boyce NP - 09/26/2024 9:24 AM EDT Please contact company regarding his eliquis to see why he has not received it yet?? Also call pt let him know do NOT take the 5mg lisinopril, he should only be taking the 20mg lisinopril dose LA documented in this encounterHCA Midwest [id number] Instructions* Patient Instructions* Marisol Boyce NP - 09/26/2024 9:00 AM EDT Neurology: will call you, Ed office We will clarify the lisinopril dose with heart doctor documented in this encounterHCA Midwest [id number] History of Present illness Narrative* Marisol Boyce NP - 08/15/2024 12:52 PM EDTAssociated Problem(s): Dizziness and giddiness Only notes when getting up from sitting to standing Orthostatics in office: [id number] Sittin/56 Standin/54 I will reach out to [...] discs Pt states he was up in [place] for pain mgmt for injections that helped and he wouldn't mind getting a referral to do again Pt needs a refill on his metformin Pt states he has not heard from the [employer] Pt seen urologist Pt also had colonoscopy done [employer] October 09 * Marisol Boyce NP - [...] discs Pt states he was up in [place] for pain mgmt for injections that helped and he wouldn't mind getting a referral to do again Pt needs a refill on his metformin Pt states he has not heard from the [employer] Pt seen urologist Pt also had colonoscopy done [employer] October 09 CGM: 3 173 avg, 58% [...] being taken. 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 Hypertension This [...] no compliance problems. Hypertensive end-organ damage includes CAD/TN and PVD. There is no history of [...] 06/07/2023 Bilateral carotid artery disease, unspecified type ([facility]) 06/07/2023 BPH (benign prostatic hyperplasia) 06/07/2023 Cervical spinal stenosis 06/07/2023 Coronary artery disease involving habematolel coronary artery of habematolel heart without angina pectoris ([facility]) 03/02/2023 COVID-19 virus detected Depression ([facility]) Erectile dysfunction 06/07/2023 Fatigue Granuloma annulare Hearing loss, bilateral Hyperlipidemia ([facility]) 06/07/2023 WESTLEY (iron deficiency anemia) 04/11/2023 Lumbar spondylosis Lumbosacral pain 04/11/2023 CORNELIA (obstructive sleep apnea) 06/07/2023 PAD (peripheral artery disease) ([facility]) 03/25/2023 Primary hypertension ([facility]) 04/11/2023 Tobacco user 06/07/2023 Tubulovillous adenoma of [...] insulin, metformin A1c: 6.3% 07/11/24 Primary hypertension ([facility]) Please check blood pressure daily [...] changes Bilateral carotid artery disease, unspecified type ([facility]) Cont asa, statin Periodic monitoring with US A-fib ([facility]) Is on amiodirone as well as anti coagulation NSR today Cont with cardiology Centrilobular emphysema ([facility]) Noted on imaging, does not take any medications on a regular basis Type 2 diabetes mellitus with other specified complication PAD, CAD, ED Dizziness and giddiness Only notes when getting up from sitting to standing Orthostatics in office: [id number] Sittin/56 Standin/54 I will reach out to [...] - 08/15/2024 6:45 AM EDTAssociated Problem(s): Hyperlipidemia ([facility]) Continue statin Check labs yearly, and prn [...] 08/15/2024 6:44 AM EDTAssociated Problem(s): Primary hypertension ([facility]) Please check blood pressure daily [...] 08/15/2024 6:43 AM EDTAssociated Problem(s): Centrilobular emphysema ([facility]) Noted on imaging, does not take any [...] that manages your CORNELIA: documented in this [facility]05-21-2025 Instructions* Patient Instructions* Marisol Boyce NP - 08/15/2024 10:30 AM EDT Drink more fluids, will reach out to cardiology for advice on BP documented in this [facility]04-23-2025 NotePatient Education Urology Benign Prostatic Hyperplasia Benign [...] Follow these instructions at home: ??? Take [id number]-[id number] and prescription medicines only as told by [...] symptoms do not get (more content not included)...[facility]02-18-2025 History of Present illness Narrative* Marisol [...] being taken. 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 Hypertension This [...] no compliance problems. Hypertensive end-organ damage includes CAD/TN, heart failure and PVD. There is no [...] 06/07/2023 Bilateral carotid artery disease, unspecified type ([facility]) 06/07/2023 BPH (benign prostatic hyperplasia) 06/07/2023 Cervical spinal stenosis 06/07/2023 Coronary artery disease involving habematolel coronary artery of habematolel heart without angina pectoris ([facility]) 03/02/2023 COVID-19 virus detected Depression ([facility]) Erectile dysfunction 06/07/2023 Fatigue Granuloma annulare Hearing loss, bilateral Hyperlipidemia ([facility]) 06/07/2023 WESTLEY (iron deficiency anemia) 04/11/2023 Lumbar spondylosis Lumbosacral pain 04/11/2023 CORNELIA (obstructive sleep apnea) 06/07/2023 PAD (peripheral artery disease) ([facility]) 03/25/2023 Primary hypertension ([facility]) 04/11/2023 Tobacco user 06/07/2023 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 Type 2 diabetes mellitus without complication, with long-term current use of insulin ([facility]) 03/22/2023 Past Surgical History: Procedure [...] Addressed This Visit Coronary artery disease involving habematolel coronary artery of habematolel heart without angina pectoris ([facility]) - Primary Follows with cardiology Current meds: asa, statin, b cesilia, Relevant Orders Comprehensive metabolic panel Type 2 diabetes mellitus without complication, with long-term current use of insulin ([facility]) Check blood sugars daily, notify [...] ratio Hemoglobin A1c PAD (peripheral artery disease) ([facility]) Continue asa and statin Primary hypertension ([facility]) Please check blood pressure daily [...] Orders CBC and differential Iron level Hyperlipidemia ([facility]) Continue statin Check labs yearly, and prn dose changes Relevant Orders Comprehensive metabolic panel Lipid panel Erectile dysfunction A-fib ([facility]) Is on amiodirone as well as anti coagulation NSR today Cont with cardiology Relevant Orders CBC and differential Centrilobular emphysema ([facility]) Noted on imaging, does not take any medications on a regular basis Type 2 diabetes mellitus with other specified complication ([facility]) PAD, CAD, ED Relevant Orders Comprehensive metabolic panel Type 2 diabetes mellitus 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 ([facility]) Primary insomnia Recommend no napping during the day, can try melatonin up to 10mg at bedtime If not helpful consider trazadone, will call if he needs it * Marisol Boyce NP - 05/15/2024 6:38 AM ESTAssociated Problem(s): Hyperlipidemia ([facility]) Continue statin Check labs yearly, and prn dose changes * Marisol Boyce NP - 05/15/2024 6:37 AM ESTAssociated Problem(s): WESTLEY (iron deficiency anemia) Check labs in 06/19 * Marisol Boyce NP - 05/15/2024 6:37 AM ESTAssociated Problem(s): Type 2 diabetes mellitus without complication, with long-term current use ofinsulin ([facility]) Check blood sugars daily, notify [...] 2 diabetes mellitus with other specified complication ([facility]) PAD, CAD, ED * Marisol Boyce NP - 05/15/2024 6:35 AM ESTAssociated Problem(s): Primary hypertension ([facility]) Please check blood pressure daily and record DASH diet Limit caffeine Take medication as directed Contact office if chest pain, pressure, dizziness, shortness of breath, swelling legs Recommend slow position changes Cont current meds: lisinopril, carvedilol * Marisol Boyce NP - 05/15/2024 6:35 AM ESTAssociated Problem(s): PAD (peripheral artery disease) ([facility]) Continue asa and statin * Marisol Boyce NP - 05/15/2024 6:34 AM ESTAssociated Problem(s): Coronary artery disease involving habematolel coronary artery of habematolel heart without angina pectoris ([facility]) Follows with cardiology Current meds: asa, statin, b cesilia, * Marisol Byoce NP - 05/15/2024 6:27 AM ESTAssociated Problem(s): A-fib (CMS/HCC) Is on amiodirone as well as anti coagulation NSR today Cont with cardiology * Marisol Boyce NP - 05/15/2024 6:27 AM ESTAssociated Problem(s): Centrilobular emphysema (CMS/HCC) Noted on imaging, does not take any medications on a regular basis documented in this [facility]02-18-2025 Instructions* Patient Instructions* aMrisol Boyce NP - 05/15/2024 9:20 AM EST [...] Labs due AFTER 06/14/24 documented in this [facility]01-22-2025 Miscellaneous Notes* Telephone Encounter - Fiona Miguel CMA - 04/18/2024 9:21 AM EST ----- Message from Dr. Sabino Mauricio, DO sent at 04/16/2024 10:07 AM EST [...] PCP. Thanks, Dr. Mcgarry [facility] Telephone encounter Note* Telephone Encounter - [...] it from his PCP. Thanks, Dr. Mcgarry [facility]01[facility]08[facility] History of Present illness Narrative* Marlin Koch APRN-SECURITY FLEX UTILITY OFFICER - 04/04/2024 11:45 AM EST Images from [...] chest pain and shortness of breath. His infrastructure consultant is Dr. Campo in [place]. Review of Systems Constitutional: Negative for fever [...] COVID-19 11/2021 Diabetes mellitus type 2, controlled [place] Dizziness HL (hearing loss) hearing aid both ears Hyperlipidemia Hypertension Injury of back Low back pain Myocardial infarction [place] 2004 Pancreatitis 2017 Peripheral arterial occlusive disease [place] [place] Visual impairment glasses Wears dentures Past Surgical History: Procedure Laterality Date ARTHROSCOPY SHOULDER WITH SUBACROMIAL DECOMPRESSION AND DEBRIDEMENT TYPE 1 SLAP LESION Left 01/11/2017 Performed by Jr Mishel Gifford DO at [facility] CARDIAC CATHETERIZATION 5 stents, most recent placed 12/2004 CATARACT EXTRACTION CHOLECYSTECTOMY COLONOSCOPY N/A 10/26/2018 Performed by Sabino Mauricio DO at [facility] EGD N/A 05/03/2019 Performed by Sabino Mauricio DO at [facility] EGD, DILATATION N/A 05/03/2019 Performed by Sabino Mauricio DO at [facility] INJECTION BLOCK NERVE MEDIAL BRANCH: bilat T 10/02 8 Bilateral 03/05/2022 Performed by Gabriel Hanson MD at [facility] INJECTION BLOCK NERVE MEDIAL BRANCH: bilat T 10/02 8 Bilateral 01/29/2022 Performed by Gabriel Hanson MD at [facility] INJECTION BLOCK NERVE MEDIAL BRANCH: right L 3/4 4/5 Right 09/05/2020 Performed by Gabriel Hanson MD at [facility] INJECTION BLOCK NERVE MEDIAL BRANCH: right [id number] Right 10/10/2020 Performed by Gabriel Hanson MD at [facility] INJECTION LARGE JOINT BURSA: left hip Left 04/13/2019 Performed by Gabriel Hanson MD at [facility] INJECTION MEDIAL BRANCH NERVE BLOCK: left [id number] Left 10/26/2019 Performed by Gabriel Hanson MD at [facility] INJECTION SI JOINT-Left Left 10/20/2018 Performed by Gabriel Hanson MD at [facility] INJECTION STEROID EPI 1 WITH SEDATION: left [id number] Left 08/03/2019 Performed by Gabriel Hanson MD at [facility] INJECTION STEROID EPI 1 WITH SEDATION: left [id number] Left 09/03/2019 Performed by Gabriel Hanson MD at [facility] ADELE PROCEDURE SHOULDER Left 01/11/2017 Performed by Jr Mishel Gifford DO at [facility] RADIOFREQUENCY ABLATION SPINAL: Left T 7/8 8/9 Left 04/23/2022 Performed by Gabriel Hanson MD at [facility] RADIOFREQUENCY ABLATION SPINAL: Right T 7/8 8/9 Right 04/09/2022 Performed by Gabriel Hanson MD at [facility] No Known Allergies Current Outpatient Medications: [...] Strain: Low Risk (11/10/2023) Received from [facility] Overall Financial Resource Strain (CARDIA) Difficulty of Paying Living Expenses: Not hard at all Food Insecurity: No Food Insecurity (04/04/2024) Hunger Screening Food Insecurity - Worry: Never True Food Insecurity - Inability: Never True Transportation Needs: No Transportation Needs (11/10/2023) Received from [facility] Transportation In the past 12 months, has lack of transportation kept you from medical appointments or from getting medications?: No Lack of Transportation (Non-Medical): Not on file Physical Activity: Inactive (06/07/2023) Received from [facility] Exercise Vital Sign Days of Exercise per Week: 0 days Minutes of Exercise per Session: 0 min Stress: Stress Concern Present (06/07/2023) Received from [facility] of Occupational Health - Occupational Stress Questionnaire Feeling of Stress : To some extent Social Connections: Moderately Integrated (06/07/2023) Received from [facility] Social Connection and Isolation Panel [NHANES] Frequency of Communication with Friends and Family: More than three times a week Frequency of Social Gatherings with Friends and Family: Once a week Attends Evangelical Services: More than 4 times per year Active Member of Clubs or Organizations: No Attends Club or Organization Meetings: Never Marital Status: Interpersonal Safety: Not At Risk (11/10/2023) Received from [facility] Humiliation, Afraid, Rape, and Kick questionnaire Fear of Current or Ex-Partner: No Emotionally Abused: No Physically Abused: No Sexually Abused: No Housing Instability: Low Risk (11/10/2023) Received from [facility] Housing Stability Vital Sign Unable to [...] patient/family/caregiver Referring and communicating with other health director of critical care Encounter for colonoscopy due to history of colonic polyp [Z12.11, Z86.0100] SATURNINO BHANDARI [facility] [place] This note was created with the assistance of a speech recognition program. While intending to generate a timely document that accurately reflects the content of the visit, no guarantee can be provided that every grammatical or spelling mistake has been or will be identified or corrected. Thank you for your understanding. SATURNINO Bhandari 04/04/24 1156 documented in this encounterOhioHealth Arthur G.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 ([facility]) Admission Diagnosis: A-fib ([facility]) [I48.91] [...] MD CARD [facility] 11/07/2023 7:30 AM [facility] MR 2 [facility] ORTH MR CHAZRTHO 11/08/2023 2:00 PM Peter Christensen MD [facility] Your medication list START taking these [...] sent to [facility] [address] [place] [address] [id number] [facility] [address] Phone: [phone] (more content not included)...[facility] 03-05-2024 History of Present illness Narrative* Marlin Laura Koch, EFFICIENCY ENGINEER-SECURITY FLEX UTILITY OFFICER - 03/05/2024 11:45 AM EST Images from [...] chest pain and shortness of breath. His infrastructure consultant is Dr. Campo in [place]. Review of Systems Constitutional: Negative for fever [...] COVID-19 11/2021 Diabetes mellitus type 2, controlled ([facility]) Dizziness HL (hearing loss) hearing aid left ear Hyperlipidemia Hypertension Injury of back Low back pain Myocardial infarction ([facility] 2004 Pancreatitis 2017 Peripheral arterial occlusive disease ([facility]) Visual impairment glasses Wears dentures Past Surgical History: Procedure Laterality Date ARTHROSCOPY SHOULDER WITH SUBACROMIAL DECOMPRESSION AND DEBRIDEMENT TYPE 1 SLAP LESION Left 01/11/2017 Performed by Jr Mishel Gifford DO at [facility] CARDIAC CATHETERIZATION 5 stents, most recent placed 12/2004 CATARACT EXTRACTION CHOLECYSTECTOMY COLONOSCOPY N/A 10/26/2018 Performed by Sabino Mauricio DO at [facility] EGD N/A 05/03/2019 Performed by Sabino Mauricio DO at [facility] EGD, DILATATION N/A 05/03/2019 Performed by Sabino Mauricio DO at [facility] INJECTION BLOCK NERVE MEDIAL BRANCH: bilat T 10/02 11/03 Bilateral 03/05/2022 Performed by Gabriel Hanson MD at [facility] INJECTION BLOCK NERVE MEDIAL BRANCH: bilat T 10/02 11/03 Bilateral 01/29/2022 Performed by Gabriel Hanson MD at [facility] INJECTION BLOCK NERVE MEDIAL BRANCH: right L 3/4 4/5 Right 09/05/2020 Performed by Gabriel Hanson MD at [facility] INJECTION BLOCK NERVE MEDIAL BRANCH: right L34 45 Right 10/10/2020 Performed by Gabriel Hanson MD at [facility] LARGE JOINT BURSA: left hip Left 04/13/2019 Performed by Gabriel Hanson MD at [facility] INJECTION MEDIAL BRANCH NERVE BLOCK: left [id number] Left 10/26/2019 Performed by Gabriel Hanson MD at [facility] INJECTION SI JOINT-Left Left 10/20/2018 Performed by Gabriel Hanson MD at [facility] INJECTION STEROID EPI 1 WITH SEDATION: left [id number] Left 08/03/2019 Performed by Gabriel Hanson MD at [facility] INJECTION STEROID EPI 1 WITH SEDATION: left [id number] Left 09/03/2019 [facility] 01/11/2017 Performed by Jr Mishel Gifford DO at [facility] RADIOFREQUENCY ABLATION SPINAL: Left T 78 8/9 Left 04/23/2022 Performed by Gabriel Hanson MD at [facility] RADIOFREQUENCY ABLATION SPINAL: Right T 7/8 8/9 Right 04/09/2022 Performed by Gabriel Hanson MD at [facility] No Known Allergies Current Outpatient Medications: [...] MOUTH DAILY, Disp: , Rfl: peg 3350-sod sulf,mdwr-sgi-stp 178.7-7.3-0.5 gram recon soln, Take 1 kit [...] Strain: Low Risk (11/10/2023) Received from [facility] Overall Financial Resource Strain (CARDIA) Difficulty of Paying Living Expenses: Not hard at all Food Insecurity: No Food Insecurity (11/10/2023) Received from [facility] Hunger Vital Sign Within the past 12 months, you worried that your food would run out before you got the money to buymore.: Never true Ran Out of Food in the Last Year: Not on file Transportation Needs: No Transportation Needs (11/10/2023) Received from [facility] Transportation In the past 12 months, has lack of transportation kept you from medical appointments or from getting medications?: No Lack of Transportation (Non-Medical): Not on file Physical Activity: Inactive (06/07/2023) Received from [facility] Exercise Vital Sign Days of Exercise per Week: 0 days Minutes of Exercise per Session: 0 min Stress: Stress Concern Present (06/07/2023) Received from [facility] [place] [facility] of Occupational Health - Occupational Stress Questionnaire Feeling of Stress : To some extent Social Connections: Moderately Integrated (06/07/2023) Received from [facility] Social Connection and Isolation Panel [NHANES] Frequency of Communication with Friends and Family: More than three times a week Frequency of Social Gatherings with Friends and Family: Once a week Attends Evangelical Services: More than 4 times per year Active Member of Clubs or Organizations: No Attends Club or Organization Meetings: Never Marital Status: Interpersonal Safety: Not At Risk (11/10/2023) Received from [facility] Humiliation, Afraid, Rape, and Kick questionnaire Fear of Current or Ex-Partner: No Emotionally Abused: No Physically Abused: No Sexually Abused: No Housing Instability: Low Risk (11/10/2023) Received from [facility] Housing Stability Vital Sign Unable to [...] patient/family/caregiver Referring and communicating with other health director of critical care Encounter for colonoscopy due to history of colonic polyp [Z12.11, Z86.0100] SATURNINO BHANDARI [facility] [place] This note was created with the assistance of a speech recognition program. While intending to generate a timely document that accurately reflects the content of the visit, no guarantee can be provided that every grammatical or spelling mistake has been or will be identified or corrected. Thank you for your understanding. SATURNINO Bhandari 03/05/24 1215 documented in this encounterMer[facility] History of Present illness Narrative* Marisol [...] no compliance problems. Hypertensive end-organ damage includes CAD/TN, heart failure and PVD. Diabetes He has [...] being taken. 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 SUBJECTIVE: MEDICATIONS: [...] 06/07/2023 Bilateral carotid artery disease, unspecified type ([facility]) 06/07/2023 BPH (benign prostatic hyperplasia) 06/07/2023 Cervical spinal stenosis 06/07/2023 Coronary artery disease involving habematolel coronary artery of habematolel heart without angina pectoris [place] 03/02/2023 COVID-19 virus detected Depression ([facility]) Erectile dysfunction 06/07/2023 Fatigue Granuloma annulare Hearing loss, bilateral Hyperlipidemia ([facility]) 06/07/2023 WESTLEY (iron deficiency anemia) 04/11/2023 Lumbar spondylosis Lumbosacral pain 04/11/2023 CORNELIA (obstructive sleep apnea) 06/07/2023 PAD (peripheral artery disease) ([facility]) 03/25/2023 Primary hypertension ([facility]) 04/11/2023 Tobacco user 06/07/2023 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 Type 2 diabetes mellitus without complication, with long-term current use of insulin ([facility]) 03/22/2023 Past Surgical History: Procedure [...] complication, with long-term current use of insulin ([facility]) - Primary Check blood sugars [...] flomax Erectile dysfunction 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 (CMS/HCC) Cont [...] without complication, with long-term current use ofinsulin ([facility]) Check blood sugars daily, notify [...] AM ESTAssociated Problem(s): 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 ([facility]) Cont with asa, statin, b cesilia And cardiology * Marisol Boyce NP - 02/15/2024 7:34 AM ESTAssociated Problem(s): PAD (peripheral artery disease) ([facility]) Continue asa and statin * Marisol Boyce NP - 02/15/2024 7:34 AM ESTAssociated Problem(s): Primary hypertension (CMS/HCC) Please check blood pressure daily and record DASH diet Limit caffeine Take medication as directed Contact office if chest pain, pressure, dizziness, shortness of breath, swelling legs Recommend slow position changes Cont current meds documented in this [facility]11-20-2024 Instructions* Patient Instructions* Marisol Boyce [...] Schedule diabetic eye exam documented in this [facility]11-07-2024 Telephone encounter Note* Telephone Encounter - Marisol Boyce NP - 02/02/2024 3:44 PM EST Have we heard any reponse on a note I sent to you a few weeks ago about his metfromin?? [place] NOMS [id number] Miscellaneous Notes* Telephone Encounter - Marisol Boyce NP - 02/02/2024 3:44 PM EST Have we heard any reponse on a note I sent to you a few weeks ago about his metfromin?? [place] documented in this [facility]10-09-2024 History of Present illness Narrative* Marisol Boyce NP - 01/04/2024 6:50 PM EDTAssociated Problem(s): Type 2 diabetes mellitus without complication, with long-term current use ofinsulin ([facility]) Consider GLP 1 possible hx of Pancreatitis but not totally sure, will look back in records If no GLP 1, consider bolus insulin with meals See list of blood sugar reads * Marisol Boyce NP - 01/04/2024 6:49 PM EDTAssociated Problem(s): Primary hypertension ([facility]) Stable today in office, suspicion [...] [facility] cardiology and she will verify * AB [...] no compliance problems. Hypertensive end-organ damage includes CAD/TN and PVD. SUBJECTIVE: MEDICATIONS: Current Outpatient Medications Medication Instructions amiodarone (PACERONE) 200 mg, Oral, Daily with breakfast amLODIPine (NORVASC) 5 mg, Oral, Daily RT apixaban (ELIQUIS) 5 mg, Oral, 2 times daily Aspirin Low Dose 81 mg, Oral, Daily atorvastatin (LIPITOR) 80 mg, Oral, Daily carvedilol (COREG) 3.125 mg, Oral, 2 times daily with meals Continuous Glucose Medical Policy Specialist (Dexcom G7 Medical Policy Specialist) device 1 each, Does not apply, Daily [...] 06/07/2023 Bilateral carotid artery disease, unspecified type ([facility]) 06/07/2023 BPH (benign prostatic hyperplasia) 06/07/2023 Cervical spinal stenosis 06/07/2023 Coronary artery disease involving habematolel coronary artery of habematolel heart without angina pectoris ([facility]) 03/02/2023 COVID-19 virus detected Depression ([facility]) Erectile dysfunction 06/07/2023 Fatigue Granuloma annulare Hearing loss, bilateral Hyperlipidemia ([facility]) 06/07/2023 WESTLEY (iron deficiency anemia) 04/11/2023 Lumbar spondylosis Lumbosacral pain 04/11/2023 CORNELIA (obstructive sleep apnea) 06/07/2023 PAD (peripheral artery disease) ([facility]) 03/25/2023 Primary hypertension ([facility]) 04/11/2023 Tobacco user 06/07/2023 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 Type 2 diabetes mellitus without complication, with long-term current use of insulin ([facility]) 03/22/2023 Past Surgical History: Procedure [...] thoracic spine 3 views documented in this encounterHCA [facility] [id number] History of Present illness Narrative* Marisol Boyce [...] 2 times daily with meals Continuous Glucose Medical Policy Specialist (Dexcom G7 Medical Policy Specialist) device 1 each, Does not apply, Daily [...] spinal stenosis 06/07/2023 Coronary artery disease involving habematolel coronary artery of habematolel heart without angina pectoris ([facility]) 03/02/2023 COVID-19 virus detected Depression [place] Erectile dysfunction 06/07/2023 Fatigue Granuloma annulare Hearing loss, bilateral Hyperlipidemia ([facility]) 06/07/2023 WESTLEY (iron deficiency anemia) 04/11/2023 Lumbar spondylosis Lumbosacral pain 04/11/2023 CORNELIA (obstructive sleep apnea) 06/07/2023 PAD (peripheral artery disease) ([facility]) 03/25/2023 Primary hypertension ([facility]) 04/11/2023 Tobacco user 06/07/2023 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 Type 2 diabetes mellitus without complication, with long-term current use of insulin ([facility]) 03/22/2023 Past Surgical History: Procedure Laterality Date [...] Addressed This Visit Coronary artery disease involving habematolel coronary artery of habematolel heart without angina pectoris ([facility]/HCC) - Primary Primary hypertension (CMS/HCC) No med dose changes at this time Nonrheumatic mitral valve regurgitation Cont with cardiology for recommendations A-fib (CMS/HCC) Other thrombophilia (CMS/HCC) D/t 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 Document Revised: 06/10/2021 Document Reviewed: 06/10/2021 [employer] Patient Education 2022 [employer]. Follow Up Care 06/18/2022 10:46:56 With:Chris QUINTANA, GEORGE Mitchell, URO Address: When:Within 1 Year(s) [facility] 03-22-2023 Hospital Discharge instructions Patient Education 06/16/2022 [...] urethra. Follow these instructions at home: Take lmwd-gqh-toazyxr and prescription medicines only as told by [...] 03/14/2006 Document Revised: 02/06/2019 Document Reviewed: 04/18/2017 [employer] Patient Education 2020 [employer]. Follow Up Care 06/18/2021 11:18:31 With:Chris QUINTANA, GEROGE Mitchell, URO Address: When: Unknown [facility] 03-24-2022 Hospital Discharge instructions Patient Education 06/18/2021 [...] 03/14/2006 Document Revised: 12/01/2018 Document Reviewed: 02/11/2017 [employer] Patient Education 2020 [employer]. 06/18/2021 11:19:47 Benign Prostatic Hyperplasia Benign Prostatic [...] urethra. Follow these instructions at home: Take nepw-nsc-famwphl and prescription medicines only as told by [...] 03/14/2006 Document Revised: 02/06/2019 Document Reviewed: 04/18/2017 [employer] Patient Education 2020 [employer]. Follow Up Care 06/12/2020 11:26:53 With:ZULMA QUINTANA, Carlitos Villar, URL Address: [address] [place] [phone] When:Within 1 Year(s) Comments:w/PSA [facility] evaluation + Plan note Future Appointments Appointment Date:06/18/2022 10:00:00 AM Scheduled Provider:Deja Perez MD Location:[facility] Appointment Type:URO Office Visit Diagnostic Tests Pending * PSA Total 06/18/21 [facility] evaluation + Plan note Future Appointments Appointment Date:06/23/2023 10:00:00 AM Scheduled Provider:Deja Perez MD Location:[facility] Appointment Type:URO Office Visit Diagnostic Tests Pending * PSA Free & Total 06/18/22 [facility] evaluation + Plan note Future Appointments Appointment Date:07/04/2024 10:45:00 AM Scheduled Provider:Deja Perez MD Location:[facility] Appointment Type:URO Office Visit Diagnostic Tests Pending * PSA Screen, Total 07/11/23 [facility] evaluation + Plan note Future Appointments Appointment Date:07/18/2024 08:15:00 AM Scheduled Provider:Deja Perez MD Location:[facility] Appointment Type:URO Office Visit [facility] evaluation note* Diagnosis Type 2 diabetes mellitus without complication, with long-term current use of insulin (CMS/HCC)- Primary Chronic thoracic back pain, unspecified back pain laterality Primary hypertension (CMS/HCC) Unspecified essential hypertension [facility] Diagnosis Type 2 diabetes mellitus without complication, with long-term current use of insulin (CMS/HCC)- Primary Primary hypertension (CMS/HCC) Unspecified essential hypertension Coronary artery disease involving habematolel coronary artery of habematolel heart without angina pectoris (CMS/HCC) PAD (peripheral artery disease) (CMS/HCC) Unspecified peripheral vascular disease Iron deficiency anemia, unspecified iron deficiency anemia type Lumbosacral pain Encounter for subsequent annual wellness visit (AWV) in Medicare patient- Primary correction (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 of insulin (Z79.4) Peripheral vascular disease, unspecified (I73.9) Peripheral vascular disease, unspecified Mixed hyperlipidemia (CMS/HCC) Mixed hyperlipidemia Iron deficiency anemia, unspecified iron deficiency anemia type Type 2 diabetes mellitus without complication, with long-term current use of insulin (CMS/HCC) COPD, moderate (CMS/HCC) Primary hypertension (CMS/HCC) Unspecified essential hypertension Coronary artery disease involving habematolel coronary artery of habematolel heart without angina pectoris (CMS/HCC) PAD (peripheral artery disease) (CMS/HCC) Unspecified peripheral vascular disease Nonrheumatic mitral valve regurgitation Riley's esophagus with dysplasia Benign prostatic hyperplasia with lower urinary tract symptoms, symptom details unspecified Primary hypertension (CMS/HCC)- Primary Unspecified essential hypertension Type 2 diabetes mellitus without complication, with long-term current use of insulin (CMS/HCC) 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 (CMS/HCC)- Primary Type 2 diabetes mellitus with other specified complication (CMS/HCC) Male erectile dysfunction, unspecified Type 2 diabetes mellitus 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 (CMS/HCC) Acute cough Primary hypertension (CMS/HCC) Unspecified essential hypertension Paroxysmal atrial fibrillation (CMS/HCC) Atrial fibrillation Type 2 diabetes mellitus without complication, with long-term current use of insulin (CMS/HCC) Coronary artery disease involving habematolel coronary artery of habematolel heart without angina pectoris (CMS/HCC)- Primary Other [...] peripheral vascular disease 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 (CMS/HCC) Riley's esophagus with dysplasia Erectile dysfunction due to diseases classified elsewhere Benign prostatic hyperplasia with lower urinary tract symptoms, symptom details unspecified Colon cancer screening Special screening for malignant neoplasms, colon Tubulovillous adenoma of colon Lumbosacral spondylosis without myelopathy documented in this encounter [facility]* Diagnosis Coronary artery disease involving habematolel coronary artery of habematolel heart without angina pectoris (CMS/HCC)- Primary Other thrombophilia (CMS/HCC) Paroxysmal atrial fibrillation (CMS/HCC) Atrial fibrillation Nonrheumatic mitral valve regurgitation Primary hypertension (CMS/HCC) Unspecified essential hypertension 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) [facility] Diagnosis Benign prostatic hyperplasia with lower urinary tract symptoms, symptom details unspecified- Primary documented in this encounter [facility] HealthcareEvaluation note* Diagnosis Type 2 diabetes mellitus without complication, with long-term current use of insulin (CMS/HCC)- Primary Primary hypertension (CMS/HCC) Unspecified essential hypertension Coronary artery disease involving habematolel coronary artery of habematolel heart without angina pectoris (CMS/HCC) PAD (peripheral artery disease) (CMS/HCC) Unspecified peripheral vascular disease Iron deficiency anemia, unspecified iron deficiency anemia type Lumbosacral pain Encounter for subsequent annual wellness visit (AWV) in Medicare patient- Primary director long term care (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 of insulin (Z79.4) Peripheral vascular disease, unspecified (I73.9) Peripheral vascular disease, unspecified Mixed hyperlipidemia (CMS/HCC) Mixed hyperlipidemia Iron deficiency anemia, unspecified iron deficiency anemia type Type 2 diabetes mellitus without complication, with long-term current use of insulin (CMS/HCC) COPD, moderate (CMS/HCC) Primary hypertension (CMS/HCC) Unspecified essential hypertension Coronary artery disease involving habematolel coronary artery of habematolel heart without angina pectoris (CMS/HCC) PAD (peripheral artery disease) (CMS/HCC) Unspecified peripheral vascular disease Nonrheumatic mitral valve regurgitation Riley's esophagus with dysplasia Benign prostatic hyperplasia with lower urinary tract symptoms, symptom details unspecified Primary hypertension (CMS/HCC)- Primary Unspecified essential hypertension Type 2 diabetes mellitus without complication, with long-term current use of insulin (CMS/HCC) 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 (CMS/HCC)- Primary Type 2 diabetes mellitus with other specified complication (CMS/HCC) Male erectile dysfunction, unspecified Type 2 diabetes mellitus 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 (CMS/HCC) Acute cough Primary hypertension (CMS/HCC) Unspecified essential hypertension Paroxysmal atrial fibrillation (CMS/HCC) Atrial fibrillation Type 2 diabetes mellitus without complication, with long-term current use of insulin (CMS/HCC) Coronary artery disease involving habematolel coronary artery of habematolel heart without angina pectoris (CMS/HCC)- Primary Other [...] peripheral vascular disease 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 (CMS/HCC) Riley's esophagus with dysplasia Erectile dysfunction due to diseases classified elsewhere Benign prostatic hyperplasia with lower urinary tract symptoms, symptom details unspecified Colon cancer screening Special screening for malignant neoplasms, colon Tubulovillous adenoma of colon Lumbosacral spondylosis without myelopathy Type 2 diabetes mellitus without complication, with long-term current use of insulin (CMS/HCC)- Primary documented [facility]* Diagnosis Encounter for colonoscopy due to history of colonic polyp- Primary 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 [facility] Diagnosis Type 2 diabetes mellitus without complication, with long-term current use of insulin (CMS/HCC)- Primary Primary hypertension (CMS/HCC) Unspecified essential hypertension Coronary artery disease involving habematolel coronary artery of habematolel heart without angina pectoris (CMS/HCC) PAD (peripheral artery disease) (CMS/HCC) Unspecified peripheral vascular disease Iron deficiency anemia, unspecified iron deficiency anemia type Lumbosacral pain Encounter for subsequent annual wellness visit (AWV) in Medicare patient- Primary correction (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 of insulin (Z79.4) Peripheral vascular disease, unspecified (I73.9) Peripheral vascular disease, unspecified Mixed hyperlipidemia (CMS/HCC) Mixed hyperlipidemia Iron deficiency anemia, unspecified iron deficiency anemia type Type 2 diabetes mellitus without complication, with long-term current use of insulin (CMS/HCC) COPD, moderate (CMS/HCC) Primary hypertension (CMS/HCC) Unspecified essential hypertension Coronary artery disease involving habematolel coronary artery of habematolel heart without angina pectoris (CMS/HCC) PAD (peripheral artery disease) (CMS/HCC) Unspecified peripheral vascular disease Nonrheumatic mitral valve regurgitation Riley's esophagus with dysplasia Benign prostatic hyperplasia with lower urinary tract symptoms, symptom details unspecified Primary hypertension (CMS/HCC)- Primary Unspecified essential hypertension Type 2 diabetes mellitus without complication, with long-term current use of insulin (CMS/HCC) 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 (CMS/HCC)- Primary Type 2 diabetes mellitus with other specified complication (CMS/HCC) Male erectile dysfunction, unspecified Type 2 diabetes mellitus 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 (CMS/HCC) Acute cough Primary hypertension (CMS/HCC) Unspecified essential hypertension Paroxysmal atrial fibrillation (CMS/HCC) Atrial fibrillation Type 2 diabetes mellitus without complication, with long-term current use of insulin (CMS/HCC) Coronary artery disease involving habematolel coronary artery of habematolel heart without angina pectoris (CMS/HCC)- Primary Other [...] peripheral vascular disease 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 (CMS/HCC) Riley's esophagus with dysplasia Erectile dysfunction due to diseases classified elsewhere Benign prostatic hyperplasia with lower urinary tract symptoms, symptom details unspecified Colon cancer screening Special screening for malignant neoplasms, colon Tubulovillous adenoma of colon Lumbosacral spondylosis without myelopathy Type 2 diabetes mellitus without complication, with long-term current use of insulin (CMS/HCC)- Primary documented in this encounter [facility] HealthcareEvaluation noteNo assessment information availableAultman [facility]tr Work Phone: Evaluation note* Diagnosis Type 2 diabetes mellitus without complication, with long-term current use of insulin (CMS/HCC)- Primary Primary hypertension (CMS/HCC) Unspecified essential hypertension Coronary artery disease involving habematolel coronary artery of habematolel heart without angina pectoris (CMS/HCC) PAD (peripheral artery disease) (CMS/HCC) Unspecified peripheral vascular disease Iron deficiency anemia, unspecified iron deficiency anemia type Lumbosacral pain Encounter for subsequent annual wellness visit (AWV) in Medicare patient- Primary correction (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 of insulin (Z79.4) Peripheral vascular disease, unspecified (I73.9) Peripheral vascular disease, unspecified Mixed hyperlipidemia (CMS/HCC) Mixed hyperlipidemia Iron deficiency anemia, unspecified iron deficiency anemia type Type 2 diabetes mellitus without complication, with long-term current use of insulin (CMS/HCC) COPD, moderate (CMS/HCC) Primary hypertension (CMS/HCC) Unspecified essential hypertension Coronary artery disease involving habematolel coronary artery of habematolel heart without angina pectoris (CMS/HCC) PAD (peripheral artery disease) (CMS/HCC) Unspecified peripheral vascular disease Nonrheumatic mitral valve regurgitation Riley's esophagus with dysplasia Benign prostatic hyperplasia with lower urinary tract symptoms, symptom details unspecified Primary hypertension (CMS/HCC)- Primary Unspecified essential hypertension Type 2 diabetes mellitus without complication, with long-term current use of insulin (CMS/HCC) 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 (CMS/HCC)- Primary Type 2 diabetes mellitus with other specified complication (CMS/HCC) Male erectile dysfunction, unspecified Type 2 diabetes mellitus 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 (CMS/HCC) Acute cough Primary hypertension (CMS/HCC) Unspecified essential hypertension Paroxysmal atrial fibrillation (CMS/HCC) Atrial fibrillation Type 2 diabetes mellitus without complication, with long-term current use of insulin (CMS/HCC) Coronary artery disease involving habematolel coronary artery of habematolel heart without angina pectoris (CMS/HCC)- Primary Other [...] use of insulin (/)- Primary Primary hypertension (CMS/HCC) Unspecified essential hypertension PAD (peripheral artery disease) (CMS/HCC) Unspecified peripheral vascular disease 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 (CMS/) Riley's esophagus with dysplasia Erectile dysfunction due to diseases classified elsewhere Benign prostatic hyperplasia with lower urinary tract symptoms, symptom details unspecified Colon cancer screening Special screening for malignant neoplasms, colon Tubulovillous adenoma of colon Lumbosacral spondylosis without myelopathy Type 2 diabetes mellitus without complication, with long-term current use of insulin (/) documented in this encounter [facility]* Diagnosis Encounter for colonoscopy due to history of colonic polyp- Primary 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 [facility] Diagnosis Type 2 diabetes mellitus without complication, with long-term current use of insulin (/HCC)- Primary Primary hypertension (CMS/HCC) Unspecified essential hypertension Coronary artery disease involving habematolel coronary artery of habematolel heart without angina pectoris (CMS/HCC) PAD (peripheral artery disease) (CMS/HCC) Unspecified peripheral vascular disease Iron deficiency anemia, unspecified iron deficiency anemia type Lumbosacral pain Encounter for subsequent annual wellness visit (AWV) in Medicare patient- Primary correction (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 of insulin (Z79.4) Peripheral vascular disease, unspecified (I73.9) Peripheral vascular disease, unspecified Mixed hyperlipidemia (CMS/HCC) Mixed hyperlipidemia Iron deficiency anemia, unspecified iron deficiency anemia type Type 2 diabetes mellitus without complication, with long-term current use of insulin (CMS/HCC) COPD, moderate (CMS/HCC) Primary hypertension (CMS/HCC) Unspecified essential hypertension Coronary artery disease involving habematolel coronary artery of habematolel heart without angina pectoris (CMS/HCC) PAD (peripheral artery disease) (CMS/HCC) Unspecified peripheral vascular disease Nonrheumatic mitral valve regurgitation Riley's esophagus with dysplasia Benign prostatic hyperplasia with lower urinary tract symptoms, symptom details unspecified Primary hypertension (CMS/HCC)- Primary Unspecified essential hypertension Type 2 diabetes mellitus without complication, with long-term current use of insulin (CMS/HCC) 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 (CMS/HCC)- Primary Type 2 diabetes mellitus with other specified complication (CMS/HCC) Male erectile dysfunction, unspecified Type 2 diabetes mellitus 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 (CMS/[facility]) Acute cough Primary hypertension (CMS/HCC) Unspecified essential hypertension Paroxysmal atrial fibrillation (CMS/HCC) Atrial fibrillation Type 2 diabetes mellitus without complication, with long-term current use of insulin (CMS/HCC) Coronary artery disease involving habematolel coronary artery of habematolel heart without angina pectoris (CMS/HCC)- Primary Other [...] peripheral vascular disease 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 (CMS/HCC) Riley's [...] (CMS/HCC) Atrial fibrillation Coronary artery disease involving habematolel coronary artery of habematolel heart without angina pectoris (CMS/HCC) Primary hypertension (CMS/HCC) Unspecified essential hypertension PAD (peripheral artery disease) (CMS/HCC) Unspecified peripheral vascular disease Iron deficiency anemia, unspecified iron deficiency anemia type Mixed hyperlipidemia (CMS/HCC) Mixed hyperlipidemia Primary insomnia Persistent disorder of initiating or maintaining sleep documented in this encounter [facility] HealthcareEvaluation note* Diagnosis Type 2 diabetes mellitus without complication, with long-term current use of insulin (CMS/HCC)- Primary Primary hypertension (CMS/HCC) Unspecified essential hypertension Coronary artery disease involving habematolel coronary artery of habematolel heart without angina pectoris (CMS/) PAD (peripheral artery disease) (CMS/HCC) Unspecified peripheral vascular disease Iron deficiency anemia, unspecified iron deficiency anemia type Lumbosacral pain Encounter for subsequent annual wellness visit (AWV) in Medicare patient- Primary correction (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 of insulin (Z79.4) Peripheral vascular disease, unspecified (I73.9) Peripheral vascular disease, unspecified Mixed hyperlipidemia (CMS/HCC) Mixed hyperlipidemia Iron deficiency anemia, unspecified iron deficiency anemia type Type 2 diabetes mellitus without complication, with long-term current use of insulin (/) COPD, moderate (CMS/HCC) Primary hypertension (CMS/HCC) Unspecified essential hypertension Coronary artery disease involving habematolel coronary artery of habematolel heart without angina pectoris (CMS/HCC) PAD (peripheral artery disease) (CMS/HCC) Unspecified peripheral vascular disease Nonrheumatic mitral valve regurgitation Riley's esophagus with dysplasia Benign prostatic hyperplasia with lower urinary tract symptoms, symptom details unspecified Primary hypertension (CMS/HCC)- Primary Unspecified essential hypertension Type 2 diabetes mellitus without complication, with long-term current use of insulin (/HCC) 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 (CMS/HCC)- Primary Type 2 diabetes mellitus with other specified complication (CMS/HCC) Male erectile dysfunction, unspecified Type 2 diabetes mellitus 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 (CMS/HCC) Acute cough Primary hypertension (CMS/HCC) Unspecified essential hypertension Paroxysmal atrial fibrillation (CMS/HCC) Atrial fibrillation Type 2 diabetes mellitus without complication, with long-term current use of insulin (CMS/HCC) Coronary artery disease involving habematolel coronary artery of habematolel heart without angina pectoris (CMS/HCC)- Primary Other [...] peripheral vascular disease 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 (CMS/HCC) Riley's [...] (CMS/HCC) Atrial fibrillation Coronary artery disease involving habematolel coronary artery of habematolel heart without angina pectoris (CMS/HCC) Primary hypertension (CMS/HCC) Unspecified essential hypertension PAD (peripheral artery disease) (CMS/HCC) Unspecified peripheral vascular disease Iron deficiency anemia, unspecified iron deficiency anemia type Mixed hyperlipidemia (CMS/HCC) Mixed hyperlipidemia Primary insomnia 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- Primary documented in this encounter [facility]* Diagnosis Type 2 diabetes mellitus without complication, with long-term current use of insulin- Primary Primary hypertension (CMS/HCC) Unspecified essential hypertension Coronary artery disease involving habematolel coronary artery of habematolel heart without angina pectoris (CMS/HCC) PAD (peripheral artery disease) (CMS/HCC) Unspecified peripheral vascular disease Iron deficiency anemia, unspecified iron deficiency anemia type Lumbosacral pain Encounter for subsequent annual wellness visit (AWV) in Medicare patient- Primary correction (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 of insulin (Z79.4) Peripheral vascular disease, unspecified (I73.9) Peripheral vascular disease, unspecified Mixed hyperlipidemia (CMS/HCC) Mixed hyperlipidemia Iron deficiency anemia, unspecified iron deficiency anemia type Type 2 diabetes mellitus without complication, with long-term current use of insulin COPD, moderate (CMS/HCC) Primary hypertension (CMS/HCC) Unspecified essential hypertension Coronary artery disease involving habematolel coronary artery of habematolel heart without angina pectoris (CMS/HCC) PAD (peripheral artery disease) (CMS/[facility]) Unspecified peripheral vascular disease Nonrheumatic mitral valve regurgitation Riley's esophagus with dysplasia Benign prostatic hyperplasia with lower urinary tract symptoms, symptom details unspecified Primary hypertension ([facility])- Primary Unspecified essential hypertension Type 2 diabetes mellitus without complication, with long-term current use of insulin 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 (CMS/HCC)- Primary Type 2 diabetes mellitus with other specified complication Male erectile dysfunction, unspecified Type 2 diabetes mellitus 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 (CMS/[facility]) Acute cough Primary hypertension (CMS/HCC) Unspecified essential hypertension Paroxysmal atrial fibrillation (CMS/HCC) Atrial fibrillation Type 2 diabetes mellitus without complication, with long-term current use of insulin Coronary artery disease involving habematolel coronary artery of habematolel heart without angina pectoris (CMS/HCC)- Primary Other [...] peripheral vascular disease 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 (CMS/HCC) Riley's [...] (CMS/HCC) Atrial fibrillation Coronary artery disease involving habematolel coronary artery of habematolel heart without angina pectoris (CMS/HCC) Primary hypertension (CMS/HCC) Unspecified essential hypertension PAD (peripheral artery disease) (CMS/HCC) Unspecified peripheral vascular disease Iron deficiency anemia, unspecified iron deficiency anemia type Mixed hyperlipidemia (CMS/HCC) Mixed hyperlipidemia Primary insomnia Persistent disorder of initiating or maintaining sleep Benign prostatic hyperplasia with lower urinary tract symptoms, symptom details unspecified- Primary documented in this encounter [facility] HealthcareEvaluation note* Diagnosis Type 2 diabetes mellitus without complication, with long-term current use of insulin- Primary Primary hypertension (CMS/HCC) Unspecified essential hypertension Coronary artery disease involving habematolel coronary artery of habematolel heart without angina pectoris (CMS/HCC) PAD (peripheral artery disease) (CMS/HCC) Unspecified peripheral vascular disease Iron deficiency anemia, unspecified iron deficiency anemia type Lumbosacral pain Encounter for subsequent annual wellness visit (AWV) in Medicare patient- Primary director long term care (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 of insulin (Z79.4) Peripheral vascular disease, unspecified (I73.9) Peripheral vascular disease, unspecified Mixed hyperlipidemia (CMS/HCC) Mixed hyperlipidemia Iron deficiency anemia, unspecified iron deficiency anemia type Type 2 diabetes mellitus without complication, with long-term current use of insulin COPD, moderate (CMS/HCC) Primary hypertension (CMS/HCC) Unspecified essential hypertension Coronary artery disease involving habematolel coronary artery of habematolel heart without angina pectoris (CMS/HCC) PAD (peripheral artery disease) (CMS/HCC) Unspecified peripheral vascular disease Nonrheumatic mitral valve regurgitation Riley's esophagus with dysplasia Benign prostatic hyperplasia with lower urinary tract symptoms, symptom details unspecified Primary hypertension (CMS/HCC)- Primary Unspecified essential hypertension Type 2 diabetes mellitus without complication, with long-term current use of insulin 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 (CMS/HCC)- Primary Type 2 diabetes mellitus with other specified complication Male erectile dysfunction, unspecified Type 2 diabetes mellitus 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 (CMS/HCC) Acute cough Primary hypertension (CMS/HCC) Unspecified essential hypertension Paroxysmal atrial fibrillation (CMS/HCC) Atrial fibrillation Type 2 diabetes mellitus without complication, with long-term current use of insulin Coronary artery disease involving habematolel coronary artery of habematolel heart without angina pectoris (CMS/HCC)- Primary Other [...] peripheral vascular disease 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 (CMS/HCC) Riley's [...] (CMS/HCC) Atrial fibrillation Coronary artery disease involving habematolel coronary artery of habematolel heart without angina pectoris (CMS/HCC) Primary hypertension (CMS/HCC) Unspecified essential hypertension PAD (peripheral artery disease) (CMS/HCC) Unspecified peripheral vascular disease Iron deficiency anemia, unspecified iron deficiency anemia type Mixed hyperlipidemia (CMS/HCC) Mixed hyperlipidemia Primary insomnia Persistent disorder of initiating or maintaining sleep Type 2 diabetes mellitus without complication, with long-term current use of insulin documented in this encounter [facility] HealthcareEvaluation note* Diagnosis Type 2 diabetes mellitus without complication, with long-term current use of insulin- Primary Primary hypertension (CMS/HCC) Unspecified essential hypertension Coronary artery disease involving habematolel coronary artery of habematolel heart without angina pectoris (CMS/HCC) PAD (peripheral artery disease) (CMS/HCC) Unspecified peripheral vascular disease Iron deficiency anemia, unspecified iron deficiency anemia type Lumbosacral pain Encounter for subsequent annual wellness visit (AWV) in Medicare patient- Primary correction (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 of insulin (Z79.4) Peripheral vascular disease, unspecified (I73.9) Peripheral vascular disease, unspecified Mixed hyperlipidemia (CMS/HCC) Mixed hyperlipidemia Iron deficiency anemia, unspecified iron deficiency anemia type Type 2 diabetes mellitus without complication, with long-term current use of insulin COPD, moderate (CMS/HCC) Primary hypertension (CMS/HCC) Unspecified essential hypertension Coronary artery disease involving habematolel coronary artery of habematolel heart without angina pectoris (CMS/HCC) PAD (peripheral artery disease) (CMS/HCC) Unspecified peripheral vascular disease Nonrheumatic mitral valve regurgitation Riley's esophagus with dysplasia Benign prostatic hyperplasia with lower urinary tract symptoms, symptom details unspecified Primary hypertension (CMS/HCC)- Primary Unspecified essential hypertension Type 2 diabetes mellitus without complication, with long-term current use of insulin 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 (CMS/HCC)- Primary Type 2 diabetes mellitus with other specified complication Male erectile dysfunction, unspecified Type 2 diabetes mellitus 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 (CMS/HCC) Acute cough Primary hypertension (CMS/HCC) Unspecified essential hypertension Paroxysmal atrial fibrillation (CMS/HCC) Atrial fibrillation Type 2 diabetes mellitus without complication, with long-term current use of insulin Coronary artery disease involving habematolel coronary artery of habematolel heart without angina pectoris (CMS/HCC)- Primary Other [...] peripheral vascular disease 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 (CMS/HCC) Riley's [...] (CMS/HCC) Atrial fibrillation Coronary artery disease involving habematolel coronary artery of habematolel heart without angina pectoris (CMS/HCC) Primary hypertension [...] Dizziness and giddiness documented in this encounter [facility] HealthcareEvaluation note* Diagnosis Type 2 diabetes mellitus without complication, with long-term current use of insulin (HCC)- Primary Primary hypertension Unspecified essential hypertension Coronary artery disease involving habematolel coronary artery of habematolel heart without angina pectoris PAD (peripheral artery disease) Unspecified peripheral vascular disease Iron deficiency anemia, unspecified iron deficiency anemia type Lumbosacral pain Encounter for subsequent annual wellness visit (AWV) in Medicare patient- Primary correction (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 of insulin (Z79.4) Peripheral vascular disease, unspecified (I73.9) Peripheral vascular disease, unspecified Mixed hyperlipidemia Mixed hyperlipidemia Iron deficiency anemia, unspecified iron deficiency anemia type Type 2 diabetes mellitus without complication, with long-term current use of insulin (HCC) COPD, moderate (HCC) Primary hypertension Unspecified essential hypertension Coronary artery disease involving habematolel coronary artery of habematolel heart without angina pectoris PAD (peripheral artery disease) Unspecified peripheral vascular disease Nonrheumatic mitral valve regurgitation Riley's esophagus with dysplasia Benign prostatic hyperplasia with lower urinary tract symptoms, symptom details unspecified Primary hypertension- Primary Unspecified essential hypertension Type 2 diabetes mellitus without complication, with long-term current use of insulin (HCC) 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- Primary Type 2 diabetes mellitus with other specified complication (HCC) Male erectile dysfunction, unspecified Type 2 diabetes mellitus 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 (HCC) Acute cough Primary hypertension Unspecified essential hypertension Paroxysmal atrial fibrillation (HCC) Atrial fibrillation Type 2 diabetes mellitus without complication, with long-term current use of insulin (HCC) Coronary artery disease involving habematolel coronary artery of habematolel heart without angina pectoris- Primary Other thrombophilia [...] peripheral vascular disease 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 Riley's esophagus [...] (HCC) Atrial fibrillation Coronary artery disease involving habematolel coronary artery of habematolel heart without angina pectoris Primary hypertension Unspecified [...] of insulin (HCC) documented in this encounter [facility] HealthcareEvaluation note* Diagnosis Type 2 diabetes mellitus without complication, with long-term current use of insulin (HCC)- Primary Primary hypertension Unspecified essential hypertension Coronary artery disease involving habematolel coronary artery of habematolel heart without angina pectoris PAD (peripheral artery disease) Unspecified peripheral vascular disease Iron deficiency anemia, unspecified iron deficiency anemia type Lumbosacral pain Encounter for subsequent annual wellness visit (AWV) in Medicare patient- Primary director long term care (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 of insulin (Z79.4) Peripheral vascular disease, unspecified (I73.9) Peripheral vascular disease, unspecified Mixed hyperlipidemia Mixed hyperlipidemia Iron deficiency anemia, unspecified iron deficiency anemia type Type 2 diabetes mellitus without complication, with long-term current use of insulin (HCC) COPD, moderate (HCC) Primary hypertension Unspecified essential hypertension Coronary artery disease involving habematolel coronary artery of habematolel heart without angina pectoris PAD (peripheral artery disease) Unspecified peripheral vascular disease Nonrheumatic mitral valve regurgitation Riley's esophagus with dysplasia Benign prostatic hyperplasia with lower urinary tract symptoms, symptom details unspecified Primary hypertension- Primary Unspecified essential hypertension Type 2 diabetes mellitus without complication, with long-term current use of insulin (HCC) 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- Primary Type 2 diabetes mellitus with other specified complication (HCC) Male erectile dysfunction, unspecified Type 2 diabetes mellitus 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 (HCC) Acute cough Primary hypertension Unspecified essential hypertension Paroxysmal atrial fibrillation (HCC) Atrial fibrillation Type 2 diabetes mellitus without complication, with long-term current use of insulin (HCC) Coronary artery disease involving habematolel coronary artery of habematolel heart without angina pectoris- Primary Other thrombophilia [...] peripheral vascular disease 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 Riley's esophagus [...] (HCC) Atrial fibrillation Coronary artery disease involving habematolel coronary artery of habematolel heart without angina pectoris Primary hypertension Unspecified [...] (HCC) Atrial fibrillation documented in this encounter [facility] HealthcareEvaluation note* Diagnosis Type 2 diabetes mellitus without complication, with long-term current use of insulin (HCC)- Primary Primary hypertension Unspecified essential hypertension Coronary artery disease involving habematolel coronary artery of habematolel heart without angina pectoris PAD (peripheral artery disease) Unspecified peripheral vascular disease Iron deficiency anemia, unspecified iron deficiency anemia type Lumbosacral pain Encounter for subsequent annual wellness visit (AWV) in Medicare patient- Primary correction (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 of insulin (Z79.4) Peripheral vascular disease, unspecified (I73.9) Peripheral vascular disease, unspecified Mixed hyperlipidemia Mixed hyperlipidemia Iron deficiency anemia, unspecified iron deficiency anemia type Type 2 diabetes mellitus without complication, with long-term current use of insulin (HCC) COPD, moderate (HCC) Primary hypertension Unspecified essential hypertension Coronary artery disease involving habematolel coronary artery of habematolel heart without angina pectoris PAD (peripheral artery disease) Unspecified peripheral vascular disease Nonrheumatic mitral valve regurgitation Riley's esophagus with dysplasia Benign prostatic hyperplasia with lower urinary tract symptoms, symptom details unspecified Primary hypertension- Primary Unspecified essential hypertension Type 2 diabetes mellitus without complication, with long-term current use of insulin (HCC) 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- Primary Type 2 diabetes mellitus with other specified complication (HCC) Male erectile dysfunction, unspecified Type 2 diabetes mellitus 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 (HCC) Acute cough Primary hypertension Unspecified essential hypertension Paroxysmal atrial fibrillation (HCC) Atrial fibrillation Type 2 diabetes mellitus without complication, with long-term current use of insulin (HCC) Coronary artery disease involving habematolel coronary artery of habematolel heart without angina pectoris- Primary Other thrombophilia [...] peripheral vascular disease 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 Riley's esophagus [...] (HCC) Atrial fibrillation Coronary artery disease involving habematolel coronary artery of habematolel heart without angina pectoris Primary hypertension Unspecified [...] Primary Mixed hyperlipidemia documented in this encounter [facility] HealthcareEvaluation note* Diagnosis Thoracic spondylosis without myelopathy- Primary Thoracic spondylosis without myelopathy- [facility] No data available for this section [facility] Hospital Discharge instructions No data available for this section [facility] InstructionsNot on filedocumented in this encounter [...] available for this section [facility] Reason for referral (narrative)No reason for referral information availableAdams County Hospital Work Phone: Reason for visit Narrative* Consultation (Routine) - Pending ReviewSpecialtyDiagnoses / ProceduresReferred By ContactReferred To ContactCardiac Rehabilitation Diagnoses Stented coronary artery Procedures Ambulatory referral to [facility]iac [facility] ([facility]) Natasha Campo MD [address] [facility] [address] [place] [address] Phone: tel: fax: [facility] [address] [place] [address] Phone: tel: fax: Referral IDStatusReasonStart DateExpiration DateVisits RequestedVisits [id number] Specialty [facility] Narrative* Consultation (Routine) - ClosedSpecialtyDiagnoses / ProceduresReferred By ContactReferred To Contact Cardiac Rehabilitation Diagnoses Stented coronary artery Procedures Ambulatory referral to [facility]iac [facility] ([facility]) Natasha Campo MD [address] [facility] [address] [place] [address] Phone: tel: fax: [facility] [address] [place] [address] Phone: tel: fax: Referral IDStatusReasonStart DateExpiration DateVisits RequestedVisits [id number] Specialty Services [facility] HospitalReason for visit Narrative* Consultation (Routine) - AuthorizedSpecialtyDiagnoses / ProceduresReferred By ContactReferred To ContactCardiac Rehabilitation Diagnoses Stented coronary artery Procedures Ambulatory referral to [facility] ([facility]) [facility] Camp[facility] [address] [facility] [address] [place] [address] [facility] Card[facility] Re[facility] Billing [address] [place] [address] Referral IDStatusReasonStlake ozark DateExpiration DateVisits RequestedVisits [id number] Specialty Services [facility] HospitalReason for visit Narrative* Consultation (Routine) - AuthorizedSpecialtyDiagnoses / ProceduresReferred By ContactReferred To ContactCardiac Rehabilitation Diagnoses Stented coronary artery Procedures Ambulatory referral to Cardiac Rehabilitation ([facility]) Natasha Campo MD [address] [facility] [address] [place] [address] Phone: tel: fax: [facility] - Cardiac Rehab [address] [place] [address] Phone: tel: fax: Referral IDStatusReasonStlake ozark DateExpiration DateVisits RequestedVisits [id number] Specialty Services Required [facility] Summary Purpose Family History No Family [...] Response Recorded Date/ Time Advance Directives No Pierson 29th, 2024 10:10am Advance Directive Response Recorded Date/ Time Advance Directives No November 24, 2023 11:10am Chief Complaint and Reason for Visit Chief Complaint Admit Date hospital follow up December 05, 2024 10:52am 1M January 03, 2025 9: 28am Reason for Visit Admit Date Atrial fibrillation December 05, 2024 10:52am Essential hypertension December 05 025 10:52am WESTLEY (iron deficiency anemia) November 262024 10:52am Lumbar spondylosis December 05, 2024 10:52am Dizziness and giddiness January 02 11:05am Multilevel degenerative disc disease Oct kathe2024 11:05am Atrial fibrillation January 03, 2025 9: 28am Dizziness and giddiness January 03 9:28am Essential hypertension January 03, 2025 9:28am WESTLEY (iron deficiency anemia) December 9:28am Lumbar spondylosis January 03, 2025 9: 28am Chief Complaint Admit Date hospital follow up December 05, 2024 10:52am Reason for Visit Admit Date Atrial fibrillation December 05, 2024 10:52am Essential hypertension December 05 025 10:52am WESTLEY (iron deficiency anemia) November 262024 10:52am Lumbar spondylosis December 05, 2024 10:52am Dizziness and giddiness January 02 11:05am Multilevel degenerative disc disease Dec kathe2024 11:05am Chief Complaint Admit Date hospital follow [...] section and content) DATE CREATED AUTHOR 03/08/2021 [facility] DATE CREATED AUTHOR AUTHOR'S ORGANIZ ATION 06/20/2022 [facility] DATE CREATED AUTHOR AUTHOR'S ORGANIZ ATION 04/10/2024 [facility] DATE CREATED AUTHOR AUTHOR'S ORGANIZ ATION 04/15/2024 [facility] DATE CREATED AUTHOR AUTHOR'S ORGANIZ ATION 07/14/2024 [facility] DATE CREATED AUTHOR AUTHOR'S ORGANIZ ATION 07/19/2024 [facility] DATE CREATED AUTHOR AUTHOR'S ORGANIZ ATION 07/22/2024 [facility] DATE CREATED AUTHOR AUTHOR'S ORGANIZ ATION 07/23/2024 [facility] DATE CREATED AUTHOR AUTHOR'S ORGANIZ ATION 09/28/2024 [facility] DATE CREATED AUTHOR AUTHOR'S ORGANIZ ATION 01/10/2025 [facility] DATE CREATED AUTHOR AUTHOR'S ORGANIZ ATION 01/30/2025 [facility] DATE CREATED AUTHOR AUTHOR'S ORGANIZ ATION 01/30/2025 [facility] Patient Care team informatio n (unrecognized section and content) Team Status: Active Member Role Status Dates Marisol Boyce NP-C Primary Care Provider Active Team Status: Active Member Role Status Dates Clem Daniels DO Attending Provider Active Sta rt: November 27, 2024 Team Status: Active Member Role Status Dates Lj Carbajal DO Attending Provider Active St art: November 28, 2024 Team Status: Inactive Member Role Status Dates Marisol Boyce NP-C Primary Care Provider Active Start: December 05, 2024 End: December 05, 2024Marisol Boyce NP-CAttending ProviderActiveStart: December 05, 2024 End: December 05, 2024 Team Status: Active Member Role Status Dates Marisol Boyce NP-C Primary Care Provider Active Start: December 25, 2024 BK Sandoval-CAttending ProviderActiveStart: December 25, 2024 Team Status: Inactive Member Role Status Dates Jackson Mcfarland DO Attending Provider Active Start: January 02, 2025 End: January 02, 2025Marisol Boyce NP-CPrimary Care ProviderActiveStart: January 02, 2025 End: January 02, 2025Team MemberRelationshipSpecialtyStart DateEnd Date Prabhjot Villatoro MD [address] [place] [address] PCP - GeneralFamily Medicine04/06/23 Marisol Boyce NP [address] [place] [address] [facility]03/28/22Team MemberRelationshipSpecialtyStart DateEnd Date Prabhjot Villatoro MD [address] [place] [phone] [facility]/06/23 Marisol Boyce NP [address] [place] [address] [facility] Medicine03/28/22Team MemberRelationshipSpecialtyStart DateEnd Date Prabhjot Villatoro MD [address] [place] [phone] PCP - Generalmi Medicine06/07/23 Marisol Boyce NP [address] [place] [address] [facility]03/28/22 Marisol Boyce NP [address] [place] [address] [facility] Medicine06/07/23Team MemberRelationshipSpecialtyStart DateEnd Date Prabhjot Villatoro MD [address] [place] [address] PCP - GeneralFamily Medicine06/07/23 Marisol Boyce NP [address] [place] [address] [facility]03/28/22 Marisol Boyce NP [address] [place] [address] [facility] Medicine06/07/23Team MemberRelationshipSpecialtyStart DateEnd Date Prabhjot Villatoro MD [address] [place] [phone] [facility] - [facility] Medicine06/07/23 Marisol Boyce NP [address] [place] [address] [facility] Medicine03/28/22 Marisol Boyce NP [address] [place] [address] [facility] Medicine06/07/23Team MemberRelationshipSpecialtyStart DateEnd Date Prabhjot Villatoro MD [address] [place] [address] [facility] - [facility] Medicine06/07/23 Marisol Boyce NP [address] [place] [address] Nurse PractitionerFamily Medicine03/28/22 Marisol Boyce NP [address] [place] [address] [facility]06/07/23Team MemberRelationshipSpecialtyStart DateEnd Date Prabhjot Villatoro MD [address] [place] [address] PCP - GeneralFamily Medicine06/07/23 Marisol Boyce NP [address] [place] [address] [facility] Medicine03/28/22 Marisol Boyce NP [address] [place] [address] [facility] Medicine06/07/23Team MemberRelationshipSpecialtyStart DateEnd Date Prabhjot Villatoro MD [address] [place] [address] PCP - Generalmily Medicine06/07/23 Marisol Boyce NP [address] [place] [address] [facility]03/28/22 Marisol Boyce NP [address] [place] [address] [facility] Medicine06/07/23Team MemberRelationshipSpecialtyStart DateEnd Date Prabhjot Villatoro MD [address] [place] [address] PCP - [facility] Medicine06/07/23 Marisol Boyce NP [address] [place] [address] [facility]03/28/22 Marisol Boyce NP [address] [place] [address] [facility]06/07/23Team MemberRelationshipSpecialtyStart DateEnd Date Prabhjot Villatoro MD [address] [place] [address] PCP - [facility]06/07/23 Marisol Boyce NP [address] [place] [address] [facility]03/28/22 Marisol Boyce NP [address] [place] [address] [facility]06/07/23Team MemberRelationshipSpecialtyStart DateEnd Date Prabhjot Villatoro MD [address] [place] [address] P[facility] - [facility] Medicine06/07/23 Marisol Boyce NP [address] [place] [address] [facility]03/28/22 Marisol Boyce NP [address] [place] [address] [facility] Medicine06/07/23Team MemberRelationshipSpecialtyStart DateEnd Date Prabhjot Villatoro MD [address] [place] [address] PCP - [facility] Medicine06/07/23 Marisol Boyce NP [address] [place] [address] [facility]03/28/22 Marisol Boyce NP [address] [place] [address] [facility]06/07/23Team MemberRelationshipSpecialtyStart DateEnd Date Marisol Boyce APRN-SECURITY FLEX UTILITY OFFICER PCP - GeneralNurse Practitioner10/16/18Team MemberRelationshipSpecialtyStart Date End Date Marisol Boyce EFFICIENCY ENGINEER-SECURITY FLEX UTILITY OFFICER PCP - GeneralNurse Practitioner10/16/18Team MemberRelationshipSpecialtyStart Date End Date Prabhjot Villatoro MD [address] [place] [address] PCP - Generalm[facility] Medicine06/07/23 Marisol Boyce NP [address] [place] [address] [facility]03/28/22 Marisol Boyce NP [address] [place] [address] [facility]06/07/23Team MemberRelationshipSpecialtyStart DateEnd Date Marisol Boyce APRN-SECURITY FLEX UTILITY OFFICER [facility] - [facility]/16/18Team MemberRelationshipSpecialtyStart Date End Date Prabhjot Villatoro MD [address] [place] [address] P[facility] - [facility]06/07/23 Marisol Boyce NP [address] [place] [address] [facility] Medicine03/28/22 Marisol Boyce NP [address] [place] [address] [facility]06/07/23 Team Status: Inactive Member Role Status Dates Sabino Mauricio DO Attending Provider Active Start: April 11, 2024 End: April 11, 2024Team MemberRelationshipSpecialtyStart DateEnd Date Marisol Boyce APRN-SECURITY FLEX UTILITY OFFICER PCP - GeneralNurse Practitioner10/16/18Team MemberRelationshipSpecialtyStart Date End Date Marisol Boyce [facility] PCP - GeneralNurse Practitioner10/16/18am MemberRelationshipSpecialtyStart Date End Date Marisol Boyce [facility] PCP - GeneralNurse Practitioner10/16/18am MemberRelationshipSpecialtyStart Date End Date Marisol Boyce [facility] PCP - GeneralNurse Practitioner10/16/18Team MemberRelationshipSpecialtyStart Date End Date Marisol Boyce [facility] PCP - GeneralNurse Practitioner10/16/18am MemberRelationshipSpecialtyStart Date End Date Marisol Boyce [facility] PCP - GeneralNurse Practitioner10/16/18am MemberRelationshipSpecialtyStart Date End Date Marisol Boyce [facility] PCP - GeneralNurse Practitioner10/16/18Team MemberRelationshipSpecialtyStart Date End Date Marisol Boyce [facility] PCP - GeneralNurse Practitioner7Team MemberRelationshipSpecialtyStart Date End Date Marisol Boyce EFFICIENCY ENGINEERPR[facility] PCP - GeneralNurse Practitioner10/16/18Team MemberRelationshipSpecialtyStart Date End Date Marisol Boyce [facility] PCP - GeneralNurse Practitioner10/16/18Team MemberRelationshipSpecialtyStart Date End Date Prabhjot Villatoro MD [address] [place] [address] PCP - [facility] Medicine06/07/23 Marisol Boyce NP [address] [place] [address] PCP - [facility]05/04/24 Marisol Boyce NP [address] [place] [address] [facility]03/28/22 Marisol Boyce NP [address] [place] [address] [facility] Medicine06/07/23Team MemberRelationshipSpecialtyStart DateEnd Date Marisol Boyce, EFFICIENCY ENGINEER-[facility] PCP - GeneralNurse Practitioner10/16/18Team MemberRelationshipSpecialtyStart Date End Date Marisol Boyce, EFFICIENCY ENGINEER-[facility] PCP - GeneralNurse Practitioner10/16/18Team MemberRelationshipSpecialtyStart Date End Date [facility]NPR[facility] PCP - GeneralNurse Practitioner10/16/18am MemberRelationshipSpecialtyStart Date End Date Marisol Boyce [facility] PCP - GeneralNurse Practitioner10/16/18am MemberRelationshipSpecialtyStart Date End Date Marisol Boyce [facility] PCP - GeneralNurse Practitioner10/16/18Team MemberRelationshipSpecialtyStart Date End Date Marisol Boyce [facility]NPR[facility] PCP - GeneralNurse Practitioner10/16/18Team MemberRelationshipSpecialtyStart Date End Date Marisol Boyce [facility] PCP - GeneralNurse Practitioner10/16/18Team MemberRelationshipSpecialtyStart Date End Date Marisol Boyce [facility] PCP - GeneralNurse Practitioner10/16/18Team MemberRelationshipSpecialtyStart Date End Date Prabhjot Villatoro MD [address] [place] [address] PCP - Generalmily [facility]06/07/23 Marisol Boyce NP [address] [place] [address] PCP - [facility]05/04/24 Marisol Boyce NP [address] [place] [address] [facility]03/28/22 Marisol Boyce NP [address] [place] [address] [facility]06/07/23Team MemberRelationshipSpecialtyStart DateEnd Date Prabhjot Villatoro MD [address] [place] [address] PCP - [facility] Medicine06/07/23 Marisol Boyce NP [address] [place] [address] PCP - [facility]05/04/24 Marisol Boyce NP [address] [place] [address] [facility]03/28/22 Marisol Boyce NP [address] [place] [address] [facility]06/07/23Team MemberRelationshipSpecialtyStart DateEnd Date Prabhjot Villatoro MD [address] [place] [address] PCP - GeneralFamily Medicine06/07/23 Marisol Boyce NP [address] [place] [address] PCP - [facility]05/04/24 Marisol Boyce NP [address] [place] [address] Nurse PractitionerFamily Medicine03/28/22 Marisol Boyce NP [address] [place] [address] Nurse Practitionermily Medicine06/07/23Team MemberRelationshipSpecialtyStart DateEnd Date Prabhjot Villatoro MD [address] [place] [address] PCP - GeneralFamily Medicine06/07/23 Marisol Boyce NP [address] [place] [address] PCP - [facility]05/04/24 Marisol Boyce NP [address] [place] [address] Nurse Practitionermily Medicine03/28/22 Marisol Boyce NP [address] [place] [address] Nurse Practitionermily Medicine06/07/23Team MemberRelationshipSpecialtyStart DateEnd Date Prabhjot Villatoro MD [address] [place] [address] PCP - [facility]06/07/23 Marisol Boyce NP [address] [place] [address] PCP - [facility]05/04/24 Marisol Boyce NP [address] [place] [address] [facility]03/28/22 Marisol Boyce NP [address] [place] [address] [facility]06/07/23Team MemberRelationshipSpecialtyStart DateEnd Date Prabhjot Villatoro MD [address] [place] [address] PCP - [facility] Medicine06/07/23 Marisol Boyce NP [address] [place] [address] PCP - [facility]05/04/24 Marisol Boyce NP [address] [place] [address] [facility]03/28/22 Marisol Boyce NP [address] [place] [address] [facility]06/07/23Team MemberRelationshipSpecialtyStart DateEnd Date Prabhjot Villatoro MD [address] [place] [address] PCP - [facility]06/07/23 Marisol Boyce NP [address] [place] [address] PCP - [facility]05/04/24 Marisol Boyce NP [address] [place] [address] [facility]03/28/22 Marisol Boyce NP [address] [place] [address] [facility]06/07/23Team MemberRelationshipSpecialtyStart DateEnd Date Prabhjot Villatoro MD [address] [place] [address] PCP - [facility]06/07/23 Marisol Boyce NP [address] [place] [address] PCP - [facility]05/04/24 Marisol Boyce NP [address] [place] [address] Nurse PractitionerFamily Medicine03/28/22 Marisol Boyce NP [address] [place] [address] [facility]06/07/23Team MemberRelationshipSpecialtyStart DateEnd Date Prabhjot Villatoro MD [address] [place] [address] [facility]06/07/23 Marisol Boyce NP [address] [place] [address] PCP - [facility]05/04/24 Marisol Boyce NP [address] [place] [address] [facility]03/28/22 Marisol Boyce NP [address] [place] [address] [facility]06/07/23Team MemberRelationshipSpecialtyStart DateEnd Date Prabhjot Villatoro MD [address] [place] [address] [facility]06/07/23 Marisol Boyce NP [address] [place] [address] PCP - [facility]05/04/24 Marisol Boyce NP [address] [place] [address] [facility]03/28/22 Marisol Boyce NP [address] [place] [address] [facility]06/07/23Team MemberRelationshipSpecialtyStart DateEnd Date Prabhjot Villatoro MD [address] [place] [address] PCP - [facility]06/07/23 Marisol Boyce NP [address] [place] [address] PCP - [facility]05/04/24 Marisol Boyce NP [address] [place] [address] [facility]03/28/22 Marisol Boyce NP [address] [place] [address] [facility]06/07/23Team MemberRelationshipSpecialtyStart DateEnd Date Prabhjot Villatoro MD [address] [place] [address] [facility] - [facility]06/07/23 Marisol Boyce NP [address] [place] [address] PCP - [facility]05/04/24 Marisol Boyce NP [address] [place] [address] [facility]03/28/22 Marisol Boyce NP [address] [place] [address] [facility]06/07/23 Team Status: Active Member Role Status Dates Marisol Boyce Family Provider Active Marisol BoyceTnimary Care ProviderActive Team Status: Inactive Member Role Status Dates Marisol Boyce Primary Care Provider Active Sta rt: December 05, 2024 End: December 05, 2024Marisol Abdittending ProviderActiveStart: December 05, 2024 End: December 05, 2024 Team Status: Inactive Member Role Status Dates Marisol Boyce NP-C Primary Care Provider Active Start: January 03, 2025 End: January 03, 2025Marisol Boyce NP-CAttending ProviderActiveStart: January 03, 2025 End: January 03, 2025Team MemberRelationshipSpecialtyStart DateEnd Date Marisol Boyce APRN-ELO PCP - GeneralNurse Practitioner10/16/18Team MemberRelationshipSpecialtyStart Date End Date Marisol Boyce APRN-ELO PCP - GeneralNurse Practitioner10/16/18Team MemberRelationshipSpecialtyStart Date End Date Prabhjot Villatoro MD PCP - [facility]06/07/23 Marisol Boyce NP [address] [place] [address] PCP - [facility]05/04/24 Marisol Boyce NP [facility]03/28/22 Marisol Boyce NP [facility]06/07/23Team MemberRelationshipSpecialtyStart DateEnd Date Prabhjot Villatoro MD PCP - [facility]06/07/23 Marisol Boyce NP [address] [place] [address] PCP - [facility]05/04/24 Marisol Boyce NP [facility]03/28/22 Marisol Boyce NP [facility]06/07/23 Reason for Visit (unrecogniz ed section and content) ReasonCommentsMed RefillReasonCommentsFollow-upUpdate H&P, EGD/Colon scheduled 04/11/24 at [facility]ReasonCommentsColon Cancer ScreeningDUE FOR 5 YEAR RECALL, LAST COLON 6-1-45PbtofyvuvTqhzzanni / ProceduresReferred By ContactReferred To ContactGeneral Surgery Diagnoses Colon cancer screening Tubulovillous adenoma of colon Procedures [place] OFFICE OUTPATIENT VISIT 60-74 MINS HIGH MDM [id number] (SNOMED CT) - AMB REFERRAL TO GENERAL SURGERY Marisol Boyce, EFFICIENCY ENGINEER-SECURITY FLEX UTILITY OFFICER [address] [place] [address] Phone: tel: fax: Sabino Mauricio, DO [address] [place] [address] Phone: tel: fax: Referral IDStatusReasonStart DateExpiration DateVisits RequestedVisits [id number] Annual Wellness Visit InitialReasonCommentsDiabetesReasonOnset DateCommentsMed Refill 10/24/2024ReasonCommentsBack Pain Goals (unrecognized section and content) Goals may [...] BE BASED ON THE PRIMARY CLINICAL RECORDS. [facility]. provides no warranty or guarantee of the accuracy or completeness of information in this document.
--- NOTE | 2025-03-04 12:58 | CA_ITS ---
Patient Name: KIMMY MCARTHUR MR#: [id number] : 1945 Exam Date: 03/04/2025 Ordering Doctor: DWAIN RAY DENTAL SCHEDULER ECHOCARDIOGRAM REPORT PROCEDURE: CA ECHO DOPPLER COMPLETE INDICATIONS: Nonrheumatic mitral valve regurgitation COMPARISON: None. DESCRIPTION: COMPLETE ECHOCARDIOGRAM Real-time transthoracic echocardiography with 2D, M-mode, spectral and color flow Doppler performed. QUALITY: Technical quality was good. LEFT VENTRICLE: Moderate dilatation. Proximal septal hypertrophy (sigmoid septum). Global left ventricular systolic function is normal. No wall motion abnormalities. Visual estimation of left ventricular ejection fraction is 60-65%. LV EF: Normal left ventricular ejection fraction, (>55%). DIASTOLIC: Grade II diastolic dysfunction. ATRIAL SEPTUM: Visually appears intact LEFT ATRIUM: Moderate dilatation. RIGHT ATRIUM: Mild dilatation. RIGHT VENTRICLE: Right ventricle size at upper limit of normal. Normal right ventricle systolic function TRICUSPID VALVE: Normal mobility and thickness. No stenosis with mild to moderate regurgitation. Mild pulmonary hypertension.The RVSP measures 41mmHg. MITRAL VALVE: Mildly thickened with normal mobility. No evidence of mitral valve stenosis. Mild mitral annular calcification. At least moderate eccentric mitral regurgitation directed posteriorly. AORTIC VALVE: Normal trileaflet appearance. Thickened aortic valve. Normal leaflet mobility. No evidence of aortic valve stenosis. No aortic regurgitation. AORTIC ROOT: Normal diameter and appearance. The aortic root measures 3.4cm. PULMONIC VALVE: Normal thickness and mobility. No stenosis. Trivial regurgitation. PERICARDIUM: No evidence of pericardial effusion. IVC: Collapes with inspirations. The IVC is normal in size measuring 1.9cm. PLEURA: CONCLUSION: Sigmoidal septum Moderately dilated left ventricle Normal left ventricular static function without wall motion abnormalities EF 60 to 65% Grade 2 left ventricular diastolic dysfunction Right ventricle size at upper limit of normal with normal systolic function Mild pulmonary hypertension, RVSP 41 mmHg Moderately dilated left atrium Mildly dilated right atrium At least moderate eccentric mitral regurgitation directed posteriorly Mild to moderate tricuspid regurgitation Adult Echocardiography Procedure Report Left Ventricle LVEDD (3.7 - 5.6 cm): 6.36 cm LVESD (2.2 - 4.0 cm): 4.65 cm LVIVS thickness (0.6 - 1.2 cm): 1.51 cm LVPW thickness (0.5 - 1.0 cm): 1.03 cm e': 0.06 m/s E - e': 17.20 LVOT Max Gradient: 2.86 mm[Hg] LVOT Area (cm2): 0.85 m/s Peak Velocity (LVOT): 0.85 m/s Mean Velocity (LVOT): 0.53 m/s LVOT Diameter 2.07 cm Left Ventricular Ejection Fraction: 65.93 % Left Atrium LA Volume Index (2D A2C): 48.89 ml/m2 Left Atrium Systolic Dimension: 4.94 cm Mitral Valve MV E to A Ratio: 1.39 MV Max Gradient: MV Mean Gradient: Mitral Valve A-Wave Peak Velocity: 0.76 m/s Mitral Valve E-Wave Peak Velocity: 1.06 m/s Cardiovascular Orifice Area: Right Ventricle RV Internal Diastolic Dimension: 4.10 cm Aorta AO Root Diam: 3.40 cm Ascending Ao Diam: 3.15 cm Aortic Valve AoV Area (Peak Jeramy): 2.62 cm2, 2.62 cm2 AoV Area (VTI): 2.44 cm2, 2.44 cm2 Deceleration Gage: Pressure Half-Time: Peak Velocity(Antegrade Flow): 1.09 m/s Peak Gradient(Antegrade Flow): 4.71 mm[Hg] Mean Velocity(Antegrade Flow): 0.72 m/s Mean Gradient(Antegrade Flow): 2.38 mm[Hg] Velocity Time Integral: 29.07 cm Tricuspid Valve Peak Velocity (Regurgitant Flow): 2.92 m/s, 3.08 m/s, 2.91 m/s Peak Velocity: Pulmonic Valve Mean Gradient: 1.51 mm[Hg] Mean Velocity: 0.57 m/s Peak Velocity: 0.84 m/s, 0.73 m/s Peak Gradient: 2.15 mm[Hg], 2.81 mm[Hg] Right Atrium Right Atrium Systolic Pressure: 78.78 ml, 78.78 ml Dictated by: Paulie Rodríguez MD on 03/04/2025 at 17:27 Approved by: Paulie Rodríguez MD on 03/04/2025 at 17:36
== END 2025-03-04 12:48 | disposition home or self-care (01) ==
LOC: CARD 12:47
PROVIDERS: PCP Nurse Practitioner; Visit Provider Nurse Practitioner Family
DX: I65.23 Occlusion and stenosis of bilateral carotid arteries (principal); I34.0 Nonrheumatic mitral (valve) insufficiency
CPT/HCPCS: 93306; 93356; 93880

== ENCOUNTER 2025-03-18 13:29 | Outpatient (OUT) | payer MEDICARE, OTHER, SELFPAY ==
--- OUTSIDE RECORDS SUMMARY | 2025-03-05 06:40 | XMS_ITS | Continuity of Care Document ---
Author Organization [facility] Address [address] [place] [id number] Phone Care Team Providers Care Doctor Naturopathic Name Role Phone Marisol Boyce PLEATER-C Primary Care Provider [phone] Marisol Boyce NP-C Attending Provider Zoey Casas PA-C Attending Provider [phone] Jackson Mcfarland DO Attending Provider Care Teams Patient Care Team Team Status: Active Member Role/Relationship Status Dates Marisol Boyce PLEATER-C Primary Care Provider Active Visit Care Team Team Status: Inactive Member Role/Relationship Status Dates Marisol Boyce PLEATER-C Primary Care Provider Active Start: December 05, 2024 End: December 05, 2024Marisol Boyce NP-CAttending ProviderActiveStart: December 05, 2024 End: December 05, 2024 Visit Care Team Team Status: Active Member Role/Relationship Status Dates Marisol Boyce PLEATER-C Primary Care Provider Active Start: December 25, 2024 ARA SandovalCAttenafia ProviderActiveStart: December 25, 2024 Visit Care Team Team Status: Inactive Member Role/Relationship Status Dates Jackson Mcfarland DO Attending Provider Active Start: January 02, 2025 End: January 02, 2025Marisol Boyce NP-CPrimary Care ProviderActiveStart: January 02, 2025 End: January 02, 2025 Visit Care Team Team Status: Inactive Member Role/Relationship Status Dates Marisol Boyce NP-C Primary Care Provider Active Start: January 03, 2025 End: January 03, 2025Ashkan Hernandez ProviderActiveStart: January 03, 2025 End: January 03, 2025 Visit Care Team Team Status: Active Member Role/Relationship Status Dates Marisol Boyce NP-C Primary Care Provider Active Start: January 16, 2025 Argelia Sandoval ProviderActiveStart: January 16, 2025 Visit Care Team Team Status: Active Member Role/Relationship Status Dates Marisol Boyce NP-C Primary Care Provider Active Start: February 14, 2025 Argelia Sandoval ProviderActiveStart: February 14, 2025 Patient Care Team Team Status: Inactive Member Role/Relationship Status Dates Marisol Boyce NP-C Primary Care Provider Active Start: March 05, 2025 End: March 05, 2025Ashkan Hernandez ProviderActiveStart: March 05, 2025 End: March 05, 2025 Chief Complaint and Reason for Visit Chief Complaint Admit Date hospital follow up December 05, 2024 10:52am 1M January 03, 2025 9: 28am 2M March 05, 2025 1 0:19am Reason for Visit Admit Date Atrial fibrillation December 05, 2024 10:52am Essential hypertension December 05 025 10:52am WESTLEY (iron deficiency anemia) November 262024 10:52am Lumbar spondylosis December 05, 2024 10:52am Dizziness and giddiness January 02 11:05am Multilevel degenerative disc disease [facility] 2024 11:05am Atrial fibrillation January 03, 2025 9: 28am Dizziness and giddiness January 03 9:28am Essential hypertension January 03, 2025 9:28am WESTLEY (iron deficiency anemia) December 9:28am Lumbar spondylosis January 03, 2025 9: 28am Spinal stenosis, lumbar January 03 9:28am Atrial fibrillation March 05, 2025 1 0:19am Diastolic heart failure March 05 10:19am Dizziness and giddiness March 05 10:19am Elevated PSA March 05, 2025 1 0:19am Essential hypertension March 05 10:19am Former smoker March 05, 2025 1 0:19am HLD (hyperlipidemia) March 05, 2025 10:19am Hypothyroidism March 05, 2025 1 0:19am WESTLEY (iron deficiency anemia) February 10:19am Type 2 diabetes mellitus with insulin th erapy March 05, 2025 10:19am Allergies, Adverse Reactions, Alerts Allergen Type Severity Reaction Last Updated Verified Status No Known Allergies Allergy Unknown January 02, 2025 10:11amYesActive Social History Smoking Status Unknown if ever smoked Observation Status Observation Response Date of Response Legal Sex Male (finding) Sex Assigned At [facility] 1945 Problems Active Problems Problem Diagnosis/Recorded Date Onset Date Status C omments Tubulovillous adenoma of colon December 05, 2024 10:04am Unknown Active BPH (benign prostatic hyperplasia)December 05, 2024 10:05amUnknownActive Elevated PSANovember 2024 8:10amUnknownActiveThoracic spondylosisOctober 2024 10:27amUnknownActiveInsomniaSeptember 2024 10:07amUnknownActive CORNELIA (obstructive sleep apnea)December 05, 2024 10:03amUnknownActiveMultilevel degenerative disc diseaseOctober 2024 10:15amUnknownActiveProstate cancer screeningOctober 2024 5:12amUnknownActiveSpinal stenosis, lumbarOctober 2024 10:25amUnknownActiveType 2 diabetes mellitus with insulin therapy December 05, 2024 10:02amUnknownActiveCOPD, moderateSeptember 2024 10:03amUnknownActiveFatigueSeptember 2024 11:43amUnknownActiveCervical spinal stenosisSeptember 2024 10:05amUnknownActiveErectile dysfunction December 05, 2024 10:05amUnknownActiveAtrial fibrillationSeptember 2024 10:05amUnknownActiveDizziness and giddinessSeptember 2024 10:07amUnknown ActiveHLD (hyperlipidemia)December 05, 2024 10:05amUnknownActive HypothyroidismSeptember 2024 10:06amUnknownActiveMitral valve regurgitationSeptember 2024 10:04amUnknownActiveDiastolic heart failure March 04, 2025 7:13pmUnknownActiveECHO 03/21: EF 55%, grade 2 diastolic dysfunction, LA/RA mild dilatation, TV mild-mod regurgNSTEMI (non-ST elevated myocardial infarction)December 05, 2024 10:06amUnknownActiveEssential hypertensionSeptember 2024 10:03amUnknownActiveAtherosclerosis of [place] coronary artery of [place] heartSept2024 10:02amUnknownActiveFormer smokerDecember 2024 6:42amUnknownActiveIDA (iron deficiency anemia) December 05, 2024 10:03amUnknownActivePAD (peripheral artery disease) December 05, 2024 10:03amUnknownActiveBarretts esophagusSeptember 2024 10:05amUnknownActiveLeft ventricular thrombosisSeptember 2024 10:06am UnknownActiveLumbar spondylosisSept2024 10:04amUnknownActiveHiatal herniaSeptember 2024 10:06amUnknownActive Medications Medication Status Dose Units Route Directions Qty Days Refills S tart Date Stop Date End Date Reason(s) Instructions Adherence Omeprazole 40 mg capsule,delayed release(DR/EC) Active 40 MG PO Daily 1Sept2024 7:20amHiatal hernia Iron deficiency anemia Diaphragmatic hernia without obstruction or gangrene Iron deficiency anemia, unspecifiedComplies with drug therapyMetformin 500 mg knixxzNllahp822EIFMBbxoq zcgae6238Kwmypczl2024 6:56pmType 2 diabetes mellitus with insulin therapy Type 2 diabetes mellitus without complications 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 operations manager (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 of insulinComplies with drug therapyMetformin 500 mg qvtgzxXrkrjmbkjpaw337WSGLPwcbn dailySeptember 2024 11:00pmNov2024 6:57pmAtorvastatin 80 mg hmoispDqvunc20KDJBZdbucBswczptfg 9th, 2025 11:00pm Complies with drug therapyAmiodarone 200 mg myboxpQciwsl683LWPFOvkxvFisfryltx 9th, 2025 11:00pmComplies with drug therapyLisinopril 20 mg nnvuywZzbqpw59ROXZ DailySept2024 11:00pmComplies with drug therapyOmeprazole 40 mg capsule,delayed release(DR/EC)Vlhaentllgwg74HAOKTcqfuTwazususw 9th, 2025 11:00pm December 18, 2024 7:20amCarvedilol 3.125 mg tabletActive3.125MGPOTwice daily December 04, 2024 11:00pmmust administer with a meal/foodComplies with drug therapyAspirin 81 mg sfgubyNpupxi77TLFLJyauuPssnflauy 9th, 2025 11:00pmComplies with drug therapyEzetimibe (Zetia) 10 mg wcvvqzPvmiqt39PRKRCoihpYvwcvgqqd 9th, 2025 11:00pmComplies with drug therapyInsulin Glargine (Lantus Solostar U-100 Insulin) 100 unit/mL (3 mL) insulin yxnBwkeyr75BZEWYLRHHNObautOettjcprg 9th, 2025 11:00pmComplies with drug therapyApixaban (Eliquis) 5 mg wjwciySwikds2MNXS Twice dailyDecember 04, 2024 11:00pmComplies with drug therapyDapagliflozin Propanediol (Farxiga) 5 mg urwoduHjrkcx7EICNDipfgAefprepno 9th, 2025 11:00pm Complies with drug therapySennosides-Docusate Sodium (Stimulant Laxative Plus) 8.6-50 mg llkdqoTbrffqfcrrcr3IWU-ZPRQQQpdyq at bedtimeSept2024 11:00pmSept2024 11:49amFerrous Sulfate 325 mg (65 mg iron) tablet Byhxbedntbrl785SEIFDhchjCwcnfyjus 9th, 2025 11:00pmpt2024 11:49am Sennosides-Docusate Sodium (Stimulant Laxative Plus) 8.6-50 mg tabletActive1 TAB-CAPPODaily at bozpybt908Emtjqrivn 10th, 2025 11:48amIron deficiency anemia Iron deficiency anemia, unspecifiedComplies with drug therapyFerrous Sulfate 325 mg (65 mg iron) oxrtuwFogkaf706ASIZGnjqn092Jepggfkiy 10th, 2025 11:49amIron deficiency anemia Iron deficiency anemia, unspecifiedComplies with drug therapy Relevant Diagnostic Tests and/or Laboratory Data Laboratory Results Test Collection Date/Time Result Date/Time Result Interpretation Reference Range Result Comment Performing Site Methylmalonic Acid December 25, 2024 1:10pm December 25, 2024 1:10pm 0.10 umol/L <=0.40This test was developed, and its performance characteristics determined by the [facility] Department of Pathology and Laboratory Medicine. It has not been cleared or approved by the FDA. The [facility] Department of Pathology and Laboratory Medicine is regulated under CLIA as qualified to perform high-complexity testing. This test is used for clinical purposes. It should not be regarded as investigational or for research.Albumin (Send Out) December 25, 2024 1:10pmSept2024 1:10pm3.69 g/dL3.43-5.41 Immunofixation InterpretationSept2024 1:10pmSept2024 1:10pmFree [place]/Lambda Light Chain RatioSept2024 1:10pmSept2024 1:10pm1.060.26-1.65Iron LevelSept2024 1:10pmOctober 2024 12:55pm61 ug/pR50-830YxvbcsvpboeRgrqvguta 30th, 2025 1:10pmSept2024 1:56fn120 mg/xP93-548Xjvcvok Stimulating Hormone 3rd GenSept2024 1:10pmOctober 2024 12:55pm4.760 mIU/LAbove high normal0.270-4.200 FerritinSept2024 1:10pmOctober 2024 12:45hd651.0 ng/mL 30.3-565.7ErythropoietinSept2024 1:10pmSept2024 1:10pm 74.5 mIU/mLAbove high normal2.6-18.5Immunoglobulin ASept2024 1:10pm December 25, 2024 1:00km559 mg/bE06-621Zmmqyfujs # (Auto)December 25, 2024 1:10pmSept2024 1:10pm0.04 k/uL<0.11Serum Total ProteinSept2024 1:10pmOctober 2024 2:00am6.0 g/dLBelow low normal6.3-8.0Folate December 25, 2024 1:10pmSept2024 1:10pm>20.0 ng/mL>4.7A result of > 20 ng/mL is not necessarily indicative of a pathologic or treatable condition: it reflects a limitation of the test methodology.Assay reference range: 4.8 to 24.2 ng/mL. Suitable fordetection of folate deficiency.Reference:Folate III (Folate III) [package insert V 1.0 Telugu]. [facility], [place], [place]: January 2015.Vitamin B12 LevelSept2024 1:10pmOctober 2024 2:78bn483 pg/kJ107-4307Hfdhptr Aminotransferase (ALT/SGPT)December 25, 2024 1:10pmSept2024 1:10pm24 U/Z73-83Uxtmljd DehydrogenaseSept2024 1:10pmSept2024 1:92ai022 U/S330-123Fcbdlrb Reticulocyte Count December 25, 2024 1:10pmSept2024 1:10pm5.7 %Above high normal 0.4-2.0Iron LevelOct2024 9:08amOctober 2024 6:47pm83 ug/dL 41-186FerritinOct2024 9:08amOctober 2024 9:00hd483.0 ng/mL 30.3-565.7Basophils # (Auto)January 16, 2025 9:08amOctober 2024 9:08am 0.05 k/uL<0.11ErythropoietinNov2024 9:29amNovember 2024 9:29am 14.5 mIU/mL2.6-18.5Prostate Specific AntigenFebruary 14, 2025 9:29amNove2024 9:29am3.36 ng/mLAbove high normal<2.60Total PSA test methodology used is the Electrochemiluminescence Immunoassay by [facility]. Total PSA values by differing methodologies cannot be interchanged.For an individual patient, the significance of a PSA level should be interpreted in a broad clinical context, including age, race, family history, digital rectal exam, prostate size, results of prior testing (prostate biopsy, free PSA, PCA3), and use of 5-alpha reductase inhibitors. Considering the high incidence of asymptomatic cancer in the general population that may not pose an ultimate risk to a patient, the decision to recommend urological evaluation or prostate biopsy should be individualized after consideration of all these factors.REFERENCE:Roselyn Beck M.D., M.P.H., Sudhakar Gongora M.D., Ph.D., Gabriel Delacruz M.D., Stephanie Mortensen, M.P.H., Lizz Polanco Sc.D. Effect of Verification Bias on Screening for Prostate Cancer by Measurement of Prostatic Specific Antigen. N Engl J Med 2003,349:335-42.Iron LevelFebruary 14, 2025 9:29amNove2024 7:32pm62 ug/sK54-659Issahqwb February 14, 2025 9:29amNove2024 9:71am926.0 ng/mL30.3-565.7Alanine Aminotransferase (ALT/SGPT)February 14, 2025 9:29amNove2024 9:29am 31 U/T41-96Ehqvolbut # (Auto)February 14, 2025 9:29amNove2024 9:29am0.04 k/uL<0.11Bedside Hemoglobin V8oNevadeii2024 11:23amDece2024 11:27am9.6 %Ertul-1-KrofkabwvNbwljpxhp 30th, 2025 1:10pmSept2024 1:10pm0.33 g/dL0.18-0.43Serum ImmunofixationSeptember 2024 1:10pmSept2024 1:10pmAbnormal (applies to non-numeric results)No M protein is identified.Free Lambda Light Chains, QuantSeptember 2024 1:10pm December 25, 2024 1:10pm22.0 mg/L5.7-26.3Rarely, increased serum free light chains levels may not be detected or accurately quantified due to prozone phenomenon or in high viscosity samples using this immunoturbidimetric assay. Correlation with other laboratory results and clinical findings is recommended. The Lambda Free Light Chain was performed using the Binding Site Optilite immunoturbidimetric method. Result obtained with differentassay methods or kits cannot be used interchangeably.Total Iron Binding CapacitySeptember 2024 1:10pmOctober 2024 12:49po229 ug/hD567-765Mxbdkhjhzefmec GSept2024 1:10pmSept2024 1:22mc975 mg/dU633-0492Tvjizonor (%) (Auto) December 25, 2024 1:10pmSept2024 1:10pm0.8 %AlbuminSept2024 1:10pmSept2024 1:10pm4.1 g/dL3.9-4.9Absolute Reticulocyte CountSept2024 1:10pmSept2024 1:10pm0.205 M/uLAbove high normal0.018-0.100Total Iron Binding CapacityOctober 2024 9:08amOctober 2024 6:61bl010 ug/lI532-931Nsurnfmgs (%) (Auto)January 16, 2025 9:08am January 16, 2025 9:08am0.8 %Total Iron Binding CapacityNov2024 9:29amNovember 2024 7:49vz417 ug/zQ058-207LwlkdazHyrxrvyu 20th, 2025 9:29amNovember 2024 9:29am3.8 g/dLBelow low normal3.9-4.9Basophils (%) (Auto)February 14, 2025 9:29amNovemb2024 9:29am0.7 %Gkrvq-8-Iwtoqqtyj December 25, 2024 1:10pmSept2024 1:10pm0.71 g/dL0.42-0.98 Leuk/Lymph Sign Pathologist (Misc)December 25, 2024 1:10pmSept2024 1:10pmReviewed by Miley Valadez MDFrrosa isela [place] Light Chains, Quant December 25, 2024 1:10pmSept2024 1:10pm23.3 mg/LAbove high normal 3.3-19.4Rarely, increased serum free light chains levels may not be detected or accurately quantified due to prozone phenomenon or in high viscosity samples using this immunoturbidimetric assay. Correlation with other laboratory results and clinical findings is recommended. The [place] Free Light Chain was performed using the Binding Site Optilite immunoturbidimetric method. Result obtained with different assay methods or kits cannot be used interchangeably.Iron Saturation December 25, 2024 1:10pmOctober 2024 12:55pm21.6 %15.0-57.0 Immunoglobulin MSept2024 1:10pmSept2024 1:10pm68 mg/dL 40-230Eosinophils # (Auto)December 25, 2024 1:10pmSept2024 1:10pm 0.15 k/uL<0.46Aspartate Amino Transf (AST/SGOT)December 25, 2024 1:10pm December 25, 2024 1:10pm16 U/L65-28Wozf SaturationOctober 2024 9:08am January 16, 2025 6:47pm34.6 %15.0-57.0Eosinophils # (Auto)January 16, 2025 9:08amOctober 2024 9:08am0.28 k/uL<0.46Iron SaturationNov2024 9:29amNovember 2024 7:32pm21.5 %15.0-57.0Aspartate Amino Transf (AST/SGOT) February 14, 2025 9:29amNovemb2024 9:29am15 U/X76-45Zsytkoaffqe # (Auto)February 14, 2025 9:29amNovemb2024 9:29am0.15 k/uL<0.46Beta GlobulinsSeptember 2024 1:10pmSeptember 2024 1:10pm0.64 g/dL 0.61-1.17Eosinophils (%) (Auto)December 25, 2024 1:10pmSeptember 2024 1:10pm2.9 %Total BilirubinSeptember 2024 1:10pmSeptember 2024 1:10pm 0.9 mg/dL0.2-1.3Eosinophils (%) (Auto)January 16, 2025 9:08amOctober 2024 9:08am4.7 %Total BilirubinNov2024 9:29amNove2024 9:29am0.5 mg/dL0.2-1.3Eosinophils (%) (Auto)February 14, 2025 9:29amNove2024 9:29am2.5 %Gamma GlobulinsSeptember 2024 1:10pmSeptember 2024 1:10pm0.63 g/dL0.53-1.51HemoglobinSeptember 2024 1:10pmSeptember 2024 1:10pm10.3 g/dLBelow low uborlr16.0-17.0Carbon Dioxide LevelSeptember 2024 1:10pmSeptember 2024 1:10pm25 mmol/L73-62NwkzqoasjmChbnsrq 2024 9:08amOctober 2024 9:08am12.2 g/dLBelow low daifln30.0-17.0 Carbon Dioxide LevelNovember 2024 9:29amNovember 2024 9:29am29 mmol/P31-09GuyzhnkawwWtfrzwry 2024 9:29amNove2024 9:29am13.3 g/dL13.0-17.0Protein Electrophoresis NoteSeptember 2024 1:10pmSeptember 2024 1:10pmAbnormal (applies to non-numeric results)No definitive M protein is identified on protein electrophoresis.Lymphocytes # (Auto)December 25, 2024 1:10pmSeptember 2024 1:10pm1.11 k/uL1.00-4.00Chloride Level December 25, 2024 1:10pmSeptember 2024 1:68rw451 mmol/L98-107 Lymphocytes # (Auto)January 16, 2025 9:08amOctober 2024 9:08am1.40 k/uL 1.00-4.00Chloride LevelNov2024 9:29amNovemb2024 9:68ih535 mmol/U18-776Nqzuuxsxmtp # (Auto)February 14, 2025 9:29amNovember 2024 9:29am1.52 k/uL1.00-4.00Protein Electrophoresis M-SpikeSept2024 1:10pmSeptember 2024 1:10pm0.00 g/dL<=0.00Lymphocytes (%) (Auto)December 25, 2024 1:10pmSeptember 2024 1:10pm21.5 %CreatinineSeptember 2024 1:10pmSeptember 2024 1:10pm0.86 mg/dL0.73-1.22Lymphocytes (%) (Auto) January 16, 2025 9:08amOctober 2024 9:08am23.5 %CreatinineNov2024 9:29amNovember 2024 9:29am0.94 mg/dL0.73-1.22Lymphocytes (%) (Auto) February 14, 2025 9:29amNovember 2024 9:29am25.2 %Miscellaneous Test 6 December 25, 2024 1:10pmSeptember 2024 1:10pmSee commentNot Applicable. Monocytes # (Auto)December 25, 2024 1:10pmSept2024 1:10pm0.45 k/uL<0.87Random GlucoseSept2024 1:10pmSept2024 1:10pm92 mg/oA40-14Svh [place] [employer] (ADA) provides guidance for cutoff [...] diabetes.Reference: [employer] in Diabetes 2016, [place] [employer]. Diabetes Care. 2016.39(Suppl 1).Monocytes # (Auto)January 16, 2025 9:08am January 16, 2025 9:08am0.50 k/uL<0.87Random GlucoseFebruary 14, 2025 9:29am February 14, 2025 9:07df298 mg/dLAbove high efbehh42-48Nst [place] [employer] (ADA) provides guidance for cutoff [...] diabetes.Reference: [employer] in Diabetes 2016, [place] [employer]. Diabetes Care. 2016.39(Suppl 1). Monocytes # (Auto)February 14, 2025 9:29amNovember 2024 9:29am0.42 k/uL <0.87Protein Electrophoresis InterpretSe2024 1:10pmSept2024 1:10pmNeutrophils # (Auto)December 25, 2024 1:10pmSeptember 2024 1:10pm3.40 k/uL1.45-7.50Potassium LevelSeptember 2024 1:10pmSeptember 2024 1:10pm4.5 mmol/L3.7-5.1Neutrophils # (Auto)January 16, 2025 9:08am January 16, 2025 9:08am3.69 k/uL1.45-7.50Potassium LevelNov2024 9:29amNovember 2024 9:29am4.4 mmol/L3.7-5.1Neutrophils # (Auto)February 14, 2025 9:29amNovember 2024 9:29am3.85 k/uL1.45-7.50Miscellaneous Test CommentSept2024 1:10pmSeptember 2024 1:10pmReviewed by Miley Valadez MDNeutrophils (%) (Auto)December 25, 2024 1:10pmSeptember 2024 1:10pm65.7 %Neutrophils (%) (Auto)January 16, 2025 9:08amOctober 2024 9:08am62.1 %Serum Total ProteinFebruary 14, 2025 9:29amNovember 2024 9:29am6.1 g/dLBelow low normal6.3-8.0Neutrophils (%) (Auto)February 14, 2025 9:29amNovemb2024 9:29am63.6 %Nucleated Red Blood Cells #December 25, 2024 1:10pmSeptember 2024 1:10pm<0.01 k/uL<0.01Sodium LevelSeptember 2024 1:10pmSeptember 2024 1:37an559 mmol/Q099-094Rcsdowhkr Red Blood Cells #January 16, 2025 9:08amOctober 2024 9:08am<0.01 k/uL<0.01Sodium LevelNovember 2024 9:29amNovember 2024 9:57cc269 mmol/P126-047 Nucleated Red Blood Cells #February 14, 2025 9:amNove2024 9:29am <0.01 k/uL<0.01OvalocytesSeptember 2024 1:10pmSeptember 2024 1:10pm FewBlood Urea NitrogenSeptember 2024 1:10pmSeptember 2024 1:10pm20 mg/dL9-24Platelet CountOctober 2024 9:08amOctober 2024 9:57xu801 k/uLBelow low hxgalw997-239Muabk Urea NitrogenNov2024 9:29amNove2024 9:29am19 mg/dL9-24Platelet CountNovember 2024 9:amNove2024 9:85vz342 k/eJ446-506Glccwbyi CountSeptember 2024 1:10pm December 25, 2024 1:62om646 k/uLBelow low oqyrvs090-575Jt clot detected.Results checked and verified.Alkaline PhosphataseSeptember 2024 1:10pmSeptember 2024 1:10pm82 U/X71-816Gwqm Corpuscular HemoglobinOctober 2024 9:08amOctober 2024 9:08am29.3 pg26.0-34.0Alkaline Phosphatase February 14, 2025 9:29amNovemb2024 9:13hb023 U/R77-991Psys Corpuscular HemoglobinNov2024 9:29amNovemb2024 9:29am28.9 pg26.0-34.0Mean Corpuscular HemoglobinSeptember 2024 1:10pmSeptember 2024 1:10pm28.6 pg26.0-34.0Calcium LevelSeptember 2024 1:10pmSeptember 2024 1:10pm8.3 mg/dLBelow low normal8.5-10.2Mean Corpuscular Hemoglobin ConcentOctober 2024 9:08amOctober 2024 9:08am31.7 g/dL30.5-36.0 Calcium LevelNov2024 9:29amNovember 2024 9:29am8.8 mg/dL 8.5-10.2Mean Corpuscular Hemoglobin ConcentNov2024 9:29amNovember 2024 9:29am32.4 g/dL30.5-36.0Mean Corpuscular Hemoglobin ConcentSeptember 2024 1:10pmSeptember 2024 1:10pm29.9 g/dLBelow low ytxqyk48.5-36.0 Anion GapSept2024 1:10pmSeptember 2024 1:10pm9 mmol/L8-15Mean Corpuscular VolumeOct2024 9:08amOctober 2024 9:08am92.3 fL 80.0-100.0Anion GapNov2024 9:29amNovember 2024 9:29am6 mmol/L Below low normal8-15Mean Corpuscular VolumeNov2024 9:29amNovemb2024 9:29am88.9 fL80.0-100.0Mean Corpuscular VolumeSept2024 1:10pmSept2024 1:10pm95.8 fL80.0-100.0Estimated GFR (CKD-EPI) December 25, 2024 1:10pmSeptember 2024 1:10pm89 mL/min/1.73m???>=60 Estimated Glomerular Filtration Rate (eGFR) is calculated using the 2020 CKD-EPI creatinine equation. This equation utilizes serum creatinine, sex, and age as parameters. The creatinine assay has traceable calibration to isotope dilution- mass spectrometry. Refer to KDIGO guidelines for clinical interpretation. In patients with unstable renal function, e.g. those with acute kidney injury, the eGFRmay not accurately reflect actual GFR.Red Blood CountOct2024 9:08amOctober 2024 9:08am4.17 m/uLBelow low normal4.20-6.00Estimated GFR (CKD-EPI)February 14, 2025 9:29amNove2024 9:29am83 mL/min/1.73m??? >=60Estimated Glomerular Filtration Rate (eGFR) is calculated using the 2020 CKD-EPI creatinine equation. This equation utilizes serum creatinine, sex, and age as parameters. The creatinine assay has traceable calibration to isotope dilution-mass spectrometry. Refer to KDIGO guidelines for clinical inte rpretation. In patients with unstable renal function, e.g. those with acute kidney injury, the eGFRmay not accurately reflect actual GFR.Red Blood Count February 14, 2025 9:29amNove2024 9:29am4.61 m/uL4.20-6.00Red Blood CountSept2024 1:10pmSeptember 2024 1:10pm3.60 m/uLBelow low normal4.20-6.00HematocritOctober 2024 9:08amOctober 2024 9:08am38.5 %Below low uvojyy23.0-51.0HematocritNov2024 9:29amNove2024 9:29am41.0 %39.0-51.0HematocritSeptember 2024 1:10pmSeptember 2024 1:10pm34.5 %Below low kopiay25.0-51.0Monocytes (%) (Auto)January 16, 2025 9:08amOctober 2024 9:08am8.4 %Monocytes (%) (Auto)February 14, 2025 9:29amNovember 2024 9:29am7.0 %Monocytes (%) (Auto)December 25, 2024 1:10pmSeptember 2024 1:10pm8.7 %Corrected White Blood CountOctober 2024 9:08amOctober 2024 9:08am5.95 k/uL3.70-11.00Corrected White Blood CountNov2024 9:29amNove2024 9:29am6.04 k/uL3.70-11.00 Corrected White Blood CountSept2024 1:10pmSept2024 1:10pm5.17 k/uL3.70-11.00Nucleated RBC Relative Count (auto)January 16, 2025 9:08amOct2024 9:08am0.0 /100{WBC}Nucleated RBC Relative Count (auto) February 14, 2025 9:29amNove2024 9:29am0.0 /100{WBC}Polychromasia December 25, 2024 1:10pmSept2024 1:10pmSlightRed Cell Distribution WidthOctober 2024 9:08amOct2024 9:08am17.4 %Above high ysbies02.5-15.0Red Cell Distribution WidthNov2024 9:29am February 14, 2025 9:29am15.2 %Above high zrfmix81.5-15.0Nucleated RBC Relative Count (auto)December 25, 2024 1:10pmSept2024 1:10pm0.0 /100{WBC} Mean Platelet VolumeOctober 2024 9:08amOctober 2024 9:08am9.3 fL 9.0-12.7Mean Platelet VolumeNov2024 9:amNove2024 9:29am 9.4 fL9.0-12.7Red Cell Distribution WidthSept2024 1:10pmSept2024 1:10pm22.5 %Above high .5-15.0Differential CommentOctober 2024 9:08amOctober 2024 9:08amAutoDifferential CommentFebruary 14, 2025 9:29amNove2024 9:29amAutoMean Platelet VolumeSeptember 2024 1:10pmSept2024 1:10pm10.1 fL9.0-12.7Immature Granulocyte # (Auto)January 16, 2025 9:08amOctober 2024 9:08am0.03 k/uL<0.10Immature Granulocyte # (Auto)February 14, 2025 9:29amNovember 2024 9:29am0.06 k/uL<0.10Differential CommentSeptember 2024 1:10pmSeptember 2024 1:10pmAutoImmature Granulocyte % (Auto)January 16, 2025 9:08amOctober 2024 9:08am0.5 %Immature Granulocyte % (Auto)February 14, 2025 9:29amNovember 2024 9:29am1.0 %Platelet EstimateSeptember 2024 1:10pmSeptember 2024 1:10pmDecreasedImmature Granulocyte # (Auto)December 25, 2024 1:10pmSeptember 2024 1:10pm<0.03 k/uL<0.10Immature Granulocyte % (Auto) December 25, 2024 1:10pmSeptember 2024 1:10pm0.4 %AnisocytosisSeptember 2024 1:10pmSeptember 2024 1:10pmPresentRBC FragmentsSept2024 1:10pmSeptember 2024 1:10pmFewAbnormal (applies to non-numeric results)None SeenNormal RBC MorphologySept2024 1:10pmSeptember 2024 1:10pmReviewed: see results of individual morphologies Vital Signs Vital Reading Result Reference Range Collection Date/Time Height 72 [in_i] December 05, 2024 10:44arDmjzpw63.71 kgSept2024 10:09amBody Zrvurgvnwpp86.8 [degF]97.6-99.0Sept2024 10:09amHeart Rate61 /min 60-100Sept2024 10:09amRespiratory rate18 /wta14-14Lbdjkiljo 10th, 2025 10:09amOxygen saturation by Pulse %95-100December 05, 2024 10:09amBP Xftbqgwh598 mm[Hg]100-140September 2024 10:09amBP Rczxsuild55 mm[Hg]60-100September 2024 10:09amBMI (Body Mass Index)22.9 kg/e4Pvdbkyiji 2024 10:52dkCnvbnl79.16 kgOctober 2024 10:07amHeart Rate56 /min 60-100October 2024 10:07amOxygen saturation by Pulse lxojrhfy61 %95-100 January 02, 2025 10:07amBP Ygvvfrxy600 mm[Hg]100-140October 2024 10:07amBP Hyxftxwqn20 mm[Hg]60-100October 2024 10:02awFweeak66.88 kgOctober 2024 8:51amBody Lnxwhdzvtyb24.1 [degF]97.6-99.0Octc[facility] 2024 8:51amHeart Rate54 /qbs56-464Lashpft 2024 8:51amRespiratory rate16 /kbt60-28Gcsfsdc 2024 8:51amOxygen saturation by Pulse talyneeb66 %95-100Octcumberland hall hospital 2024 8:51amBP Niupwaor451 mm[Hg]100-140Octcumberland hall hospital 2024 8:51amBP Zlbqfnvcv29 mm[Hg] 60-100October 2024 8:99ccZvqcer32 [in_i]March 05, 2025 10:35amWeight 78.58 kgDemun[facility] hospital[facility] 2024 10:35amBody Swhlbsnimfy15.5 [degF]97.6-99.0Demunson healthcare [facility] hospitaler 2024 10:35amHeart Rate57 /blm89-712Cndpjqnw 2024 10:35amRespiratory rate18 /wha85-68Yjofrdyw 2024 10:35amOxygen saturation by Pulse %95-100Deceer 2024 10:35amBP Ypyxgcsa936 mm[Hg]100-140Deceer 2024 10:35amBP Vormrvdfw00 mm[Hg]60-100Deceer 2024 10:35amBMI (Body Mass Index)23.5 kg/a8Lryzfomq 2024 10:35am Advance Directives Advance Directive Response Recorded Date/ Time Advance Directives No January 03, 2025 9:27am Insurance Providers Guarantor Jaron Hickman Address [address] [id number] Info.Home Phone: Payer Group Member ID Coverage Type Subscriber Relationship to Subscriber Effective Date Expiration Date MMO [id number] A [place] Id: [id number] [address] [address] Home Phone: SelfMedicare [id number] A [place] Id: [id number] [address] [address] Home Phone: Self Encounters Encounter Location(s) Arrival/Admit Date Discharge/Departure Date Discharge/Departure Disposition Provider(s) Departed Physician/ Provider Office Visit -[facility] Family [facility] [place] December 05, 2024 10:52am December 05, 2024 11:46am Discharged to home care or self care (routine discharge) SHANE Hernandez Non-patient / Non-visit -[facility] December 25, 2024 2:10pm Brionna SUMNEReparted Physician/Provider Office Visit-[facility] 2024 11:05amOctober 2024 11:37amDischarged to home care or self care (routine discharge)Brionna Hatfieldeparted Physician/Provider Office Visit-[facility] 2024 9:28amOctober 2024 10:26amDischarged to home care or self care (routine discharge)JIMMIE Hernandezon-patient / Nbm-gpeaf-[employer]lqnu [employer]October 2024 10:08Brionna Rodriguez-patient / Lqs-qmfol-Iouhf [facility] 2024 9:29Brionna Rodriguezeparted Physician/Provider Office Visit-[facility] Family Medicine [facility] 2024 10:19amDeceer 2024 11:38amDischarged to home care or self care (routine discharge)MARIE HernandezC Recent Diagnosis Onset Date Admit Date Atrial fibrillation Unknown December 052024 10:52am Essential hypertension Unknown December 05, 2024 10:52am WESTLEY (iron deficiency anemia) Unknown Nov 10:52am Lumbar spondylosis Unknown November 10:52am Dizziness and giddiness Unknown January 02, 2025 11:05am Multilevel degenerative disc disease Unknown January 02, 2025 11:05am Atrial fibrillation Unknown January 03, 2025 9:28am Dizziness and giddiness Unknown January 03, 2025 9:28am Essential hypertension Unknown January 032024 9:28am WESTLEY (iron deficiency anemia) Unknown Dec 9:28am Lumbar spondylosis Unknown January 03, 2025 9:28am Spinal stenosis, lumbar Unknown January 03, 2025 9:28am Atrial fibrillation Unknown February 10:19am Diastolic heart failure Unknown March 05, 2025 10:19am Dizziness and giddiness Unknown March 05, 2025 10:19am Elevated PSA Unknown March 05 10:19am Essential hypertension Unknown March 05, 2025 10:19am Former smoker Unknown March 05 10:19am HLD (hyperlipidemia) Unknown February 10:19am Hypothyroidism Unknown March 05 10:19am WESTLEY (iron deficiency anemia) Unknown Feb 10:19am Type 2 diabetes mellitus with insulin therapy Un known March 05, 2025 10:19am Assessments Diagnosis Onset Date Resolution Status Admit Date Atrial fibrillation acuteSeptember 2024 10:52amEssential hypertensionacuteSeptember 2024 10:52amIDA (iron deficiency anemia)acuteSeptember 2024 10:52amLumbar spondylosisacuteSeptember 2024 10:52amDizziness and giddinessacuteOctober 2024 11:05amMultilevel degenerative disc diseaseacuteOctober 2024 11:05amAtrial fibrillationacuteOctober 2024 9:28amDizziness and giddiness acuteOctober 2024 9:28amEssential hypertensionacuteOctober 2024 9:28am WESTLEY (iron deficiency anemia)acuteOctober 2024 9:28amLumbar spondylosisacute January 03, 2025 9:28amSpinal stenosis, lumbaracuteOctober 2024 9:28am Atrial fibrillationacuteDeceer 2024 10:19amDiastolic heart failureacute March 05, 2025 10:19amDizziness and giddinessacuteDecemayo [facility] [place] 20[place] 10:19am Elevated PSAacuteDeceer 2024 10:19amEssential hypertensionacuteDeb[facility] 2024 10:19amFormer smokeracuteDecemayo clinic [place] 2024 10:19amHLD (hyperlipidemia)acuteDecemayo clinic [place] 2024 10:19amHypothyroidismacuteDeb[facility] 2024 10:19amIDA (iron deficiency anemia)acuteDebanner [facility] 2024 10:19amType 2 diabetes mellitus with insulin therapyacuteDecemayo clinic [place] 2024 10:19am Plan of Treatment Author Marisol [facility] HospitalAutHenry [facility] Hospitalptw[facility] 2024 11:42amPlease check blood pressure daily and record DASH diet Limit caffeine Take medication as directed Contact office if chest pain, pressures, dizziness, shortness of breath, swelling in the legs Recommend slow position changes if you develop dizziness with position changes current meds: lisinopril, b cesilia, does question at home reads with DBP 40's, I have advised he speak with cardiology about this with his heart failure may not be alot to do with this check labs again likely to need IV iron infusion will order this will check MRI t and l spine is on anti coagulation, asa, amiodirone Author Marisol [facility] 2024 11:01amsince last visit he has had 2 IV iron infusions, and has also been evaluated by [facility] in [place] 02/14/25 Hgb 13.3 to see them in 3 months Please check blood pressure daily and record DASH diet Limit caffeine Take medication as directed Contact office if chest pain, pressures, dizziness, shortness of breath, swelling in the legs Recommend slow position changes if you develop dizziness with position changes current med: carvediolol, lisinopril is on anti coagulation, asa, amiodirone was also evaluated by Neurology Dr Lucas, I have reviewed his note as well does feel better with iron infusions will continue to follow no current meds for this, however he is on amiodirone therapy check labs yearly and prn sxs changing on statin therapy check labs yearly and prn dose changes recommend diet low in fat and processed foods Check blood sugars daily, notify the office if <70 or > 200. Take medications (pills or insulin) as directed. Monitor for s/s of low blood sugar (sweaty, dizziness, nausea, vomiting, or shakiness). Watch for increase thirst, urination, and appetite as these can be signs of high blood sugar. Inspect your feet frequently monitor for open wounds, wear proper fitting shoes as well. Pt should attempt to remain as physical active as chronic conditions allow, as well as trying to follow a diet lower in carbohydrates, and simple sugars. current meds: asa, statin, farxiga, zetia, insulin, lisinopril, metfromin a1c: 9.6% 03/05/12, 6.3% 07/11/24 PSA: 3.83 (3.24 2023) Free PSA: 0.99 (1.13 2023) % 25.8, (34.9% 2023) continue with cardiology meds: farxiga, lisinopril, carvedilol ECHO 03/21: EF 55%, grade 2 diastolic dysfunction, LA/RA mild dilatation, TV mild-mod regurg Author Jackson Mcfarland [facility] HospitalAuthoredOctober 2024 10:39amThe does have multilevel degenerative disc disease and this seems to be the worst in the lumbosacral spine on the right with foraminal narrowing noted there up on MRI. Lesser degrees are noted in the lumbar and thoracic spine that were imaged in November 2024. The patient had previously seen the pain management team in [place] and really did not have success with injections there. Plan: Close follow-up with primary care. I did offer physical therapy and the patient has declined for today. He will follow his imaging with primary care to develop a further treatment plan. It is my impression that the patient was suffering from dizziness and substantial fatigue. He was ultimately found to have a substantial anemia with a hemoglobin of 7. He underwent transfusions and had an increase in his hemoglobin up to 10. This did improve his symptoms substantially. The source of his anemia is not clearly yet identified. Plan: Follow-up closely with [facility] hematology Eliel for further evaluation and treatment Should the patient get a sudden onset of vertiginous or dizziness or imbalance, I would recommend he proceed to the emergency department right away to rule out life-threatening conditions such as stroke or bleeding in the brain Author Marisol Boyce [facility] HospitalAuthoredOctober 2024 10:26amsince last visit he has had 2 IV iron infusions, and has also been evaluated by [facility] in [place] his most recent H/H: 12/25/24 RBC 3.60, Hgb 10.3 and HCT 34.5 (11/27/24 2.83, 7.1, and 24.2) continue w follow up with them had MRI T and L spine reviewed those, w is on anti coagulation, asa, amiodirone was also evaluated by Neurology Dr Lucas, I have reviewed his note as well does feel better with iron infusions will continue to follow Please check blood pressure daily and record DASH diet Limit caffeine Take medication as directed Contact office if chest pain, pressures, dizziness, shortness of breath, swelling in the legs Recommend slow position changes if you develop dizziness with position changes current med: carvediolol reviewed MRI will refer to Pain mgmt [facility] Future Tests Future scheduled test information is unavailable Pending Tests Test Name Ordered Date Scheduled Date MR lumbar spine wo con December 05, 2024 11:4 4am MR thoracic spine wo conSept2024 11:44am Future Visits Future appointment information is unavailable Future Procedures Procedure Name Ordered Date Scheduled Date C-Reactive Protein December 05, 2024 11:42am Erythrocyte Sedimentation RateSept2024 11:42amIronSeptember 2024 11:42amFerritinSept2024 11:43amTransferrinSept2024 11:43amPSA Screen (Yearly Only)January 03, 2025 5:11am Future Medications Future medication information is unavailable Patient Instructions Patient instructions are unavailable
--- OUTSIDE RECORDS SUMMARY | 2025-03-14 23:59 | XMS_ITS | Continuity of Care Document ---
Author Organization [facility] Address [address] 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 [address]- [place] Encounter Diagnosis BPH with urinary obstruction(Discharge Diagnosis) - 03/14/25 Lower urinary tract symptoms (LUTS)(Discharge Diagnosis) - 03/14/25 Family history of prostate cancer(Discharge Diagnosis) - 03/14/25 History of kidney stones(Discharge Diagnosis) - 03/14/25 Back pain(Discharge Diagnosis) - 03/14/25 Discharge Disposition: Home (Routine DC) Attending Physician: Chris QUINTANA, Deja Henry Encounter Type: Clinic Allergies, Adverse Reactions, Alerts No Known Allergies Treatment Plan Future Appointments Appointment Date:03/20/2025 09:30:00 AM Scheduled Provider: Location:[facility] Appointment Type:Urology CALL PAT FT Appointment Date:03/25/2025 09:30:00 AM Scheduled Provider: Location:[facility] Appointment Type:Urology FT Functional Status 03/14/25 Symptomatic After Exposure to ContagionNoSymptomatic After Travel High-Risk Area NoDroplet, Contact Isolation VerificationN/AAirborne,Contact Isolation VerificationN/A Functional Status Assessment AssessmentAssessment ComponentResultEffective DateFall risk total [Acevedo Fall Scale]Ambulatory aid [Acevedo Fall Scale]None, bedrest, wheelchair, nurse 03/14/25Intravenous apparatus [Acevedo Fall Scale]No03/14/25Gait [Acevedo Fall Scale]Normal, bedrest, axheduws45/18/25History of falling; immediate or within 3 months [Acevedo Fall Scale]No03/14/25Mental status [Acevedo Fall Scale]Oriented to own zqpqurw99/18/25Secondary diagnosis is rzhpzblGw16/18/25 Functional Status Assessment AssessmentAssessment ComponentResultEffective DateUnspecifed Functional Status AssessmentHistory of falling; immediate or within 3 months [Acevedo Fall Scale]No 03/11/25 Immunizations Given and Recorded VaccineDateStatusRefusal Reasoninfluenza virus vaccine, sfdeoyzdkeu08/14/24 Recordedinfluenza virus vaccine, vnktzwgkouv07/6/23Recordedinfluenza virus vaccine, zvnqejnxcar39/18/22Recordedinfluenza virus vaccine, fcqycjkvoeb91/8/21 Recordedinfluenza virus vaccine, inactivated11/30/19Recordedinfluenza virus vaccine, yxwpqdnheqf89/2020Recordedinfluenza virus vaccine, jnbzojjgnma25/4/19 Recordedinfluenza virus vaccine, mydsmvqofdb10/3/18Recordedinfluenza virus vaccine, wsysimajbnj06/17/17Recordedinfluenza virus vaccine, epjjoxnsfvc23/23/15 Recordedinfluenza virus vaccine, sdzyismgibl73/16/14Recordedinfluenza virus vaccine, umgolilvtqr24/16/89YtjbsnwaGHZB-FpT-1 (COVID-19) mRNAMUL.ORD![id number] 03/11/2218ZktsiskwTDMMMmW1 mRNA(rkafsgqhx-unuf-azppje) vac08/06/21Recorded SARS-CoV-2 (COVID-19) mRNA BNT-162b2 vax1/02/1598KkjtgjlmCIKY-KmA-5 (COVID-19) mRNA BNT-162b2 vax1//49IlmapaoiXWHZ-VnO-2 (COVID-19) mRNA BNT-162b2 vax2 05/01/2073LixiftuqDCQG-AxZ-4 (COVID-19) mRNA-1273 vaccine319AttnkugrIIEQ-TdL-0 (COVID-19) mRNA-1273 vaccine05/08/20Recordedpneumococcal 13-valent vaccine11/30/19 Recordedpneumococcal 23-valent vaccine12/10/14Recordedzoster vaccine live03/12/14 Recorded 1Result Comment: 2022-06-18: TPV70 2Result Comment: 2022-06-18: TPV70 Medications amiodarone 200 mg Tab 200 mg = 1 tab(s) Start Date: 07/18/24 Status: Ordered Medication Dispense Status: Completed Total Allowed Fills: 1 Fills Dispensed: 0 aspirin 81 mg, Oral, Daily, Refills(s) 0, Blood Thinner Start Date: 03/12/13 Status: Ordered Medication Dispense Status: Completed Total Allowed Fills: 1 Fills Dispensed: 0 atorvastatin 80 mg Tab 80 mg = 1 tab(s) Start Date: 07/18/24 Status: Ordered Medication Dispense Status: Completed Total Allowed Fills: 1 Fills Dispensed: 0 Basaglar KwikPen 100 units/mL subcutaneous solution Refills(s) 0 Start Date: 07/18/24 Status: Ordered Medication Dispense Status: Completed Total Allowed Fills: 1 Fills Dispensed: 0 carvedilol 3.125 mg Tab 3.125 mg = 1 tab(s) Start Date: 07/18/24 Status: Ordered Medication Dispense Status: Completed Total Allowed Fills: 1 Fills Dispensed: 0 Cialis 5 mg oral tablet 5 mg = 1 tab(s), Oral, Daily, Take for urination., X 30 day(s), # 30 tab(s), Refills(s) 11, Pharmacy: [id number], 184, cm, 03/14/25 9:31:00 EST, Height/Length Dosing, 79, kg, 03/14/25 9:31:00 EST, Weight Dosing Start Date: 03/14/25 Stop Date: 03/09/26 Status: Ordered Medication Dispense Status: Completed Quantity: 30.0 Unit: tab(s) Total Allowed Fills: 12 Fills Dispensed: 0 ezetimibe 10 mg Tab 10 mg = 1 tab(s), Oral, Daily Start Date: 03/14/25 Status: Ordered Medication Dispense Status: Completed Total Allowed Fills: 1 Fills Dispensed: 0 Farxiga 10 mg oral tablet mg tab(s), Oral, Daily, Refills(s) 0 Start Date: 03/14/25 Status: Ordered Medication Dispense Status: Completed Total Allowed Fills: 1 Fills Dispensed: 0 Farxiga 10 mg oral tablet 10 mg = 1 tab(s), Oral, Daily, Refills(s) 0 Start Date: 07/11/23 Status: Ordered Medication Dispense Status: Completed Total Allowed Fills: 1 Fills Dispensed: 0 lisinopril 20 mg Tab 20 mg = 1 tab(s), Oral, Daily Start Date: 03/14/25 Status: Ordered Medication Dispense Status: Completed Total Allowed Fills: 1 Fills Dispensed: 0 metformin 500 mg Tab 500 mg = 1 tab(s), Oral, BID Start Date: 03/14/25 Status: Ordered Medication Dispense Status: Completed Total Allowed Fills: 1 Fills Dispensed: 0 omeprazole 40 mg Cap-DR 40 mg = 1 cap(s) Start Date: 07/18/24 Status: Ordered Medication Dispense Status: Completed Total Allowed Fills: 1 Fills Dispensed: 0 rivaroxaban 20 mg oral tablet 20 mg, Oral, Daily, AFIB and CrCl over 50 mL/minute, X 30 day(s), # 30 tab(s), Refills(s) 0 Start Date: 03/14/25 Stop Date: 04/13/25 Status: Ordered Medication Dispense Status: Completed Quantity: 30.0 Unit: tab(s) Total Allowed Fills: 1 Fills Dispensed: 0 Semglee SubCutaneous, Daily, Refills(s) 0 Start Date: 03/14/25 Status: Ordered Medication Dispense Status: Completed Total Allowed Fills: 1 Fills Dispensed: 0 tamsulosin 0.4 mg Cap 0.4 mg = 1 cap(s), Oral, Daily, # 90 cap(s), Refills(s) 3, [id number], 77.8, kg, 06/18/22 9:54:00 EDT, Weight Dosing Start Date: 06/18/22 Status: Ordered Medication Dispense Status: Completed Quantity: 90.0 Unit: cap(s) Total Allowed Fills: 4 Fills Dispensed: 0 Problem List ConditionConfirmationCourseEffective DatesStatusHealth StatusInformant Tubulovillous adenoma of colonConfirmedActiveAnemiaConfirmedActiveAsymptomatic microscopic hematuriaConfirmedActiveAt low risk for fallConfirmedActiveBack pain ConfirmedActiveBPH with urinary obstructionConfirmedActiveBMI 25.0-25.9,adult ConfirmedActiveBursitis of elbowConfirmedActiveDermatitis due to plants, including poison elif, sumac, and oakConfirmedActiveCAD (coronary artery disease) ConfirmedActiveDepressionConfirmedActiveControlled diabetes mellitus without complication, with long-term current use of insulinConfirmedActiveED (erectile dysfunction)ConfirmedActiveErectile dysfunctionConfirmedResolvedFormer smoker ConfirmedActiveFamily history of prostate cancerConfirmedActiveFatigueConfirmed ActiveGranuloma annulareConfirmedActiveHistory of kidney stonesConfirmedActive Acute myocardial infarct greater than 3 months agoConfirmedActiveHyperlipidemia ConfirmedActiveIncomplete bladder emptyingConfirmedActiveLower urinary tract symptoms (LUTS)ConfirmedActiveLumbar spondylosisConfirmedActiveMitral valve regurgitationConfirmedActiveNight sweatConfirmedActiveNocturiaConfirmedResolved CORNELIA (obstructive sleep apnea)ConfirmedActiveTesticle painConfirmedActivePapule of skinConfirmedActiveAntiplatelet or antithrombotic long-term useConfirmed ActivePAD (peripheral artery disease)ConfirmedActivePost-void dribblingConfirmed ResolvedPseudocyst of icqmfkqmRreptcapmMdkvoywyFmzetu1XykccsfbcZhnivfYsvk snoringConfirmedActiveTobacco useConfirmedActivepatientUrinary urgencyConfirmed Resolved 1Added secondary to documentation in Social History. Procedures ProcedureDateRelated DiagnosisBody SiteStatusIliofemoral vein stent02/26/20 CompletedInjection of sacroiliac joint08/03/19CompletedColonoscopy (procedure) 10/26/18CompletedCataract/bilateralCompletedCholecystectomyCompletedHistory of carotid endarterectomy (situation)CompletedPlacement of stent in cardiac conduit CompletedShoulder replacementCompleted Vital Signs Most recent to oldest [Reference Range]:1Temperature Temporal Artery [36.3-37.8 DegC]36.2 DegC *LOW* (03/14/25 9:28 AM)Peripheral Pulse Rate [60-100 bpm]64 bpm (03/14/25 9:28 AM)Respiratory Rate [14-20 br/min]18 br/min (03/14/25 9:28 AM)Blood Pressure [89-139/59-89 mmHg]132/60mmHg (03/14/25 9:28 AM)Blood Pressure LocationRight arm (03/14/25 9:28 AM) Social History Social History TypeResponseSmoking Status4 or less cigarettes(less than 1/4 pack)/day in last 30 days;Smoker, current status unknown;Never; Type: Cigarettes; Smoking Cessation Yes entered on: 03/14/25Birth SexMaleSex RepresentationMale (finding) Hospital Discharge Instructions Patient Education 03/14/2025 10:38:13 Cystoscopy Cystoscopy Cystoscopy is a procedure that is used to help diagnose and sometimes treat conditions that affect the lower urinary tract. The lower urinary tract includes the bladder and the urethra. The urethra is the tube that drains urine from the bladder. Cystoscopy is done using a thin, tube-shaped instrument with a light and camera at the end (cystoscope). The cystoscope may be hard or flexible, depending on the goal of the procedure. The cystoscope is inserted through the urethra, into the bladder. Cystoscopy may be recommended if you have: ??? Urinary tract infections that keep coming back. ??? Blood in the urine (hematuria). ??? An inability to control when you urinate (urinary incontinence) or an overactive bladder. ??? Unusual cells found in a urine sample. ??? A blockage in the urethra, such as a urinary stone. ??? Painful urination. ??? An abnormality in the bladder found during an intravenous pyelogram (IVP) or CT scan. Cystoscopy may also be done to remove a sample of tissue to be examined under a microscope (biopsy). Tell a health care provider about: ??? Any allergies you have. ??? All medicines you are taking, including vitamins, herbs, eye drops, creams, and bvvp-ohc-jmhdfxw medicines. ??? Any problems you or family members have had with anesthetic medicines. ??? Any blood disorders you have. ??? Any surgeries you have had. ??? Any medical conditions you have. ??? Whether you are or may be . What are the risks? Generally, this is a safe procedure. However, problems may occur, including: ??? Infection. ??? Bleeding. ??? Allergic reactions to medicines. ??? Damage to other structures or organs. What happens before the procedure? Medicines Ask your health care provider about: ??? Changing or stopping your regular medicines. This is especially important if you are taking diabetes medicines or blood thinners. ??? Taking medicines such as aspirin and ibuprofen. These medicines can thin your blood. Do not take these medicines unless your health care provider tells you to take them. ??? Taking whav-dkz-skekemw medicines, vitamins, herbs, and supplements. Tests You may have an exam or testing, such as: ??? X-rays of the bladder, urethra, or kidneys. ??? CT scan of the abdomen or pelvis. ??? Urine tests to check for signs of infection. General instructions ??? Follow instructions from your health care provider about eating or drinking restrictions. ??? Ask your health care provider what steps will be taken to help prevent infection. These steps may include: ??? Washing skin with a germ-killing soap. ??? Taking antibiotic medicine. ??? Plan to have a responsible adult take you home from the hospital or clinic. What happens during the procedure? You will be given one or more of the following: ??? A medicine to help you relax (sedative). ??? A medicine to numb the area (local anesthetic). ??? The area around the opening of your urethra will be cleaned. ??? The cystoscope will be passed through your urethra into your bladder. ??? Germ-free (sterile) fluid will flow through the cystoscope to fill your bladder. The fluid willstretch your bladder so that your health care provider can clearly examine your bladder vasquez. ??? Your doctor will look at the urethra and bladder. Your doctor may take a biopsy or remove stones. ??? The cystoscope will be removed, and your bladder will be emptied. The procedure may vary among health care providers and hospitals. What can I expect after the procedure? After the procedure, it is common to have: ??? Some soreness or pain in your abdomen and urethra. ??? Urinary symptoms. These include: ??? Mild pain or burning when you urinate. Pain should stop within a few minutes after you urinate.This may last for up to 1 week. ??? A small amount of blood in your urine for several days. ??? Feeling like you need to urinate but producing only a small amount of urine. Follow these instructions at home: Medicines ??? Take cbgw-dpu-aciwpgz and prescription medicines only as told by your health care provider. ??? If you were prescribed an antibiotic medicine, take it as told by your health care provider. Donot stop taking the antibiotic even if you start to feel better. General instructions ??? Return to your normal activities as told by your health care provider. Ask your health care provider what activities are safe for you. ??? If you were given a sedative during the procedure, it can affect you for several hours. Do not drive or operate machinery until your health care provider says that it is safe. ??? Watch for any blood in your urine. If the amount of blood in your urine increases, call your health care provider. ??? Follow instructions from your health care provider about eating or drinking restrictions. ??? If a tissue sample was removed for testing (biopsy) during your procedure, it is up to you to get your test results. Ask your health care provider, or the department that is doing the test, when your results will be ready. ??? Drink enough fluid to keep your urine pale yellow. ??? Keep all follow-up visits. This is important. Contact a health care provider if: ??? You have pain that gets worse or does not get better with medicine, especially pain when you urinate. ??? You have trouble urinating. ??? You have more blood in your urine. Get help right away if: ??? You have blood clots in your urine. ??? You have abdominal pain. ??? You have a fever or chills. ??? You are unable to urinate. Summary ??? Cystoscopy is a procedure that is used to help diagnose and sometimes treat conditions that affect the lower urinary tract. ??? Cystoscopy is done using a thin, tube-shaped instrument with a light and camera at the end. ??? After the procedure, it is common to have some soreness or pain in your abdomen and urethra. ??? Watch for any blood in your urine. If the amount of blood in your urine increases, call your health care provider. ??? If you were prescribed an antibiotic medicine, take it as told by your health care provider. Donot stop taking the antibiotic even if you start to feel better. This information is not intended to replace advice given to you by your health care provider. Make sure you discuss any questions you have with your health care provider. Document Revised: 11/25/2021 Document Reviewed: 10/24/2020 [employer] Patient Education ?? 2023 [employer]. 03/14/2025 10:38:10 Benign Prostatic Hyperplasia Benign Prostatic Hyperplasia Benign [...] ??? Medicines to relieve your symptoms, including: ??? Medicines to shrink the prostate. ??? Medicines to relax the muscle of the prostate. ??? Surgery in severe cases. Surgery may include: ??? Prostatectomy. In this procedure, the prostate tissue is removed completely through an open incision or with a laparoscope or robotics. ??? Transurethral resection of the prostate (TURP). In this procedure, a tool is inserted through the opening at the tip of the penis (urethra). It is used to cut away tissue of the inner core of theprostate. The pieces are removed through the same opening of the penis. This removes the blockage. ??? Transurethral incision (TUIP). In this procedure, small cuts are made in the prostate. This lessens the prostate's pressure on the urethra. ??? Transurethral microwave thermotherapy (TUMT). This procedure uses microwaves to create heat. The heat destroys and removes a small amount of prostate tissue. ??? Transurethral needle ablation (TUNA). This procedure uses radio frequencies to destroy and remove a small amount of prostate tissue. ??? Interstitial laser coagulation (ILC). This procedure uses a laser to destroy and remove a smallamount of prostate tissue. ??? Transurethral electrovaporization (TUVP). This procedure uses electrodes to destroy and remove a small amount of prostate tissue. ??? Prostatic urethral lift. This procedure inserts an implant to push the lobes of the prostate away from the urethra. Follow these instructions at home: ??? Take dhjq-mvg-nwvaewg and prescription medicines only as told by [...] pain. ??? Your symptoms do not get better with treatment. ??? You develop side effects from the medicine you are taking. ??? Your urine becomes very dark or has a bad smell. ??? Your lower abdomen becomes distended and you have trouble passing urine. Get help right away if: ??? You have a fever or chills. ??? You suddenly cannot urinate. ??? You feel light-headed or very dizzy, or you faint. ??? There are large amounts of blood or clots in your urine. ??? Your urinary problems become hard to manage. ??? You develop moderate to severe low back or flank pain. The flank is the side of your body between the ribs and the hip. These symptoms may be an emergency. Get help right away. Call 911. ??? Do not wait to see if the symptoms will go away. ??? Do not drive yourself to the hospital. Summary ??? Benign prostatic hyperplasia (BPH) is an enlarged prostate that is caused by the normal aging process. It is not caused by cancer. ??? An enlarged prostate can press on the urethra. This can make it hard to pass urine. ??? This condition is more likely to develop in men older than 50 years. ??? Get help right away if you suddenly cannot urinate. This information is not intended to replace advice given to you by your health care provider. Make sure you discuss any questions you have with your health care provider. Document Revised: 09/30/2021 Document Reviewed: 09/30/2021 [employer] Patient Education ?? 2023 [employer] Follow Up Care 03/07/2025 11:37:56 With:Chris QUINTANA, GEORGE Mitchell, [facility] Address: When: Unknown Patient Care team information Care Team Personnel Name: JACKLYNSINCERE GASCA TIMOTEO Didi Position: FT Physician Member Role: Primary Care Physician Address: [address] [place] [address] Telecom: Care Team Related Persons Name: NISHANT MCARTHUR Name: LYUBOV NISHANT Name: NISHANT MCARTHUR Insurance Providers Guarantor name: KIMMY Sanchez LYUBOV Health Plan Information #: 1 Payer: MEDICARE Payer Identifier: [id number] Member Number: [id number] Group Number: [id number] Subscriber Identifier: [id number] Relationship to Subscriber: self Coverage Type: MEDICARE Coverage Verification Date: 25 Telecom: [phone] Address: [facility] [address] [place] [address] Health Plan Information #: 2 Payer: [employer] Payer Identifier: [id number] Member Number: [id number] Group Number: [id number] Subscriber Identifier: [id number] Relationship to Subscriber: self Coverage Type: PRIVATE HEALTH INSURANCE Coverage Verification Date: 25 Telecom: NA Address: [address] [place] [address]
--- NOTE | 2025-03-18 13:31 | CT_ITS ---
The [address] [address] Patient Name: KIMMY MCARTHUR MRN: [id number] date: 1945 Sex: M Assigned Patient Location: CT Current Patient Location: Accession/Order Number: [id number] Exam Date: 03/18/2025 13:38 Report Date: 03/19/2025 09:41 At the request of: BONY CROUCH MD Procedure: CT abdomen pelvis wo con CT ABDOMEN AND PELVIS WITHOUT CONTRAST CLINICAL DATA: Back pain. History of kidney stones. COMPARISON: 01/06/2022 Spiral images were obtained through the abdomen and pelvis without contrast. This CT exam was performed using one or more following dose reduction techniques: Automated exposure control, adjustment of the mA and/or kV according to patient size, or use of iterative reconstruction technique. Limited cuts through the lung bases show minimal atelectasis or scarring. There is a tiny hiatal hernia. Chronic calcification is seen along the left heart border. Assessment of the intra-abdominal organs is slightly limited by the absence of contrast. Hepatic hypodensities are again seen which may be cysts. The gallbladder is surgically absent. No common duct stones are noted. The spleen, pancreas and adrenal glands show no acute findings. The renal nephrograms are symmetric. No hydronephrosis is seen. There is an exophytic hyperdense nodule at the superior pole of the left kidney, also present on the prior and possibly a hemorrhagic cyst. No ureteral dilatation or stones are visualized. There is prominent atherosclerotic disease at the aorta, iliac and some of the visceral arteries. Iliac stents are present. The mesenteric lymph nodes are slightly more prominent than there is minor hazy density within the mesentery.. No ascites is seen. There are a couple mildly distended small bowel loops the left upper quadrant. The remaining small bowel is normal caliber. There is moderate stool along the colon. The stomach is decompressed. Subtle dextroscoliotic curvature and degenerative changes are seen at the spine. Images through the pelvis show nondistended small bowel. No appendiceal inflammation is seen. There is stool at the distal colon. There are sigmoid diverticula, without associated active inflammation. The prostate is slightly prominent with minor mass effect at the bladder trigone. The prostate also contains calcification. The urinary bladder wall is top normal in thickness for the degree of distention. No intraluminal abnormalities are seen. There is no ascites. CT/CT abdomen pelvis wo con IMPRESSION: NONSPECIFIC, NONOBSTRUCTIVE BOWEL GAS PATTERN. SIMILAR SUSPECTED HEMORRHAGIC LEFT RENAL CYST. NO OBSTRUCTIVE UROPATHY OR STONE DISEASE. PROMINENT ATHEROSCLEROTIC DISEASE. POSSIBLE MESENTERIC ADENITIS. SIGMOID DIVERTICULOSIS. MILD PROSTATE HYPERTROPHY. Impression dictated by: Lizz Queen M.D. 03/19/2025 9:41 AM Dictation Location: [place] [address] Electronically authenticated by: [id number] Y Date: 03/19/2025 09:41
--- OUTSIDE RECORDS SUMMARY | 2025-03-18 13:31 | XMS_ITS | Clinical Summary ---
Author Organization [facility] Address [address] [place] [address] Care Team Providers Care Crane Ladle Person Name Role Phone Marisol Boyce CNP Primary Care Provider [phone] Allergies No known active allergies Medications MedicationSigDispense QuantityRefillsLast FilledStart DateEnd DateStatus aspirin, enteric coated (ASPIRIN, ENTERIC COATED) 81 mg EC tablet Take 81 mg by mouth once daily.Active metFORMIN (GLUCOPHAGE) 500 mg tablet Take 500 mg by mouth.07/18/2024tive atorvastatin (LIPITOR) 80 mg tablet Take 80 mg by mouth once daily.12/30/2023ctive amiodarone (PACERONE) 200 mg tablet Take 200 mg by mouth once daily.01/02/2024ctive carvedilol (COREG) 3.125 mg tablet Take 3.125 mg by mouth two times a day with meals.401/6Active ezetimibe (ZETIA) 10 mg tablet Take 10 mg by mouth once daily./ctive dapagliflozin propanediol (FARXIGA) 10 mg tablet Take 10 mg by mouth daily with breakfast.07/11/2023ctive omeprazole (PRILOSEC) 40 mg capsule Take 40 mg by mouth once daily.04/16/2024tive rivaroxaban (XARELTO) 20 mg tablet Take 20 mg by mouth once daily.10/09/2024tive STIMULANT LAXATIVE PLUS 8.6-50 mg per tablet Take 1 tablet by mouth every 12 hours.11/28/2024tive insulin glargine,hum.rec.anlog (LANTUS U-100 INSULIN SQ) Inject subcutaneously.Active lisinopril (ZESTRIL) 10 mg tablet Take 10 mg by mouth once daily.Active tamsulosin (FLOMAX) 0.4 mg Take 0.4 mg by mouth once daily.Active Active Problems ProblemNoted DateDiagnosed DateIron deficiency azbnfe5012/25/2024 Encounters DateTypeDepartmentCare YwdnBlhbjzbqqfy34/20/2025 9:30 AM ESTVisit (SP) Office Hematology/Oncology [address] [place] [address] [place] [address] Zoey Casas PA-C Thrombocytopenia (Primary Dx); Iron deficiency anemia, unspecified iron deficiency anemia type; Malaise and zulgbcy7302/14/2025 9:[address] [facility] [address] [place] [address] [place] [address] Special screening for malignant neoplasm of prostate (Primary Dx); Iron deficiency anemia, unspecified iron deficiency anemia type; Malaise and fatigue; Eohvtboihjnatjrd44/20/1371Pquadp03/23/2025 Patient Msg Hematology/Oncology [address] [address] Zoey Casas PA-C Appointment Zqvxffd4901/17/2025Telephone Hematology/Oncology [address] [place] [address] [place] [address] Zoey Casas PA-C 01/16/2025 10:30 AM EDTVisit (SP) Office Hematology/Oncology [address] [place] [address] [place] [address] Zoey Casas PA-C Iron deficiency anemia, unspecified iron deficiency anemia type (Primary Dx); Malaise and qbzhpvm8701/16/20254608Dylger70/03/2025Results Follow-Up Hematology/Oncology [address] [place] [address] [place] [address] Zoey Casas PA-C Khmugys3312/26/2024Telephone Hematology/Oncology [address] [place] [address] [place] [address] Sruthi Jauregui RN Results - Mri12/25/2024 2:30 PM EDTVisit (SP) Office Hematology/Oncology [address] [place] [address] [place] [address] Zoey Casas PA-C Iron deficiency anemia, unspecified iron deficiency anemia type (Primary Dx); Malaise and fatigue; Chronic bilateral low back pain without lbzbadfa89/30/6152Yozdtt12/26/2025 Abstract Hematology/Oncology [address] [place] [address] Zoey Casas PA-C 12/20/2024H&P External-NonCCF Provider, ARMAND Julio 12/20/2024H&P External-NonCCF Provider, ARMAND Julio from Last 3 Months Immunizations ImmunizationAdministration DatesNext DueCOVID-19 original vaccine, age 12+ yr, monovalent (PFIZER-BIONTECH - HOUGH TOP)2COVID original vaccine, age 12+ yr, monovalent (PFIZER-BIONTECH - PURPLE TOP)05/21/2020,05/01/2020OVID- original vaccine, full dose, monovalent (MODERNA)05/29/2020,05/08/2020OVID vaccine, age 12+ yr (MODERNA SPIKEVAX)02/09/2024OVID vaccine, unspecified formulation ([place] ONLY)08/06/2021influenza (HD-IIV3) vaccine, age 65+ yr, high dose, trivalent, PF (FLUZONE HIGH-DOSE)02/09/2024,01/28/2018,01/17/2015influenza (HD-IIV4) vaccine, age 65+ yr, high dose, quadrivalent, PF (FLUZONE HIGH-DOSE) 01/31/2023,02/12/2022,02/02/2021,11/30/2019influenza (IIV3) vaccine, trivalent (AFLURIA, FLULAVAL, FLUVIRIN, FLUZONE)03/12/2014,01/10/2013influenza (aIIV3) vaccine, age 65+ yr, trivalent, PF (FLUAD)12/29/2018,02/11/2017influenza vaccine, unspecified geyleegxxde51/21/2023,2pneumococcal conjugate (PCV13) vaccine, 13 valent (PREVNAR 13)11/30/2019pneumococcal polysaccharide (PPV23) vaccine, 23 valent (PNEUMOVAX 23)02/15/2023,10/17/2021,12/10/2014zoster (ZVL) vaccine, live (ZOSTAVAX)03/12/2014 Family History Medical HistoryRelationCommentsArthritisFatherDiabetesFatherLung CancerFather DiabetesMaternal GrandfatherRelationStatusCommentsFatherDeceasedMaternal GrandfatherMotherDeceased Social History Tobacco UseTypesPacks/DayYears UsedDateSmoking Tobacco: Every DayCigarettes Smokeless Tobacco: Never Tobacco Cessation:Ready to Q uit: Not Asked; Counseling Given: Not Answered Comments:1 pack every 3 weeks Alcohol UseStandard Drinks/WeekCommentsNot Currently0 (1 standard drink = 0.6 oz pure alcohol)PHQ-2AnswerDate RecordedPHQ-2 kemvo562rea Deprivation IndexAnswerDate RecordedNational Score (1-100), lower number is lower risk68 12/25/2024State Score (1-10), lower number is lower xcdk95712/25/2024Data from: https://www.neighborhoodatlas.[facility].edu/. Last address used for ol[address]/25/2024Sex and Gender InformationValueDate Recorded Sex Assigned at BirthNot on fileLegal MxuMpdg49/12/2019 12:00 PM ESTGender IdentityNot on fileSexual OrientationNot on file Last Filed Vital Signs Vital SignReadingTime TakenCommentsBlood Iujsyatg07/4602/14/2025 9:35 AM EST Uzrrm999502/14/2025 9:35 AM IKXMyzqjdfuiul88.4 ??C (97.5 ??F)02/14/2025 9:35 AM ESTRespiratory Zmwk439304/16/2024 9:35 AM ESTOxygen Rfwqawatll60%02/14/2025 9:35 AM ESTInhaled Oxygen Concentration--Fcavmp60 kg (167 lb 8.8 oz)02/14/2025 9:35 AM AAAAklyll726.9 cm (6' 0.01 )02/14/2025 9:35 AM ESTBody Mass Index22.72 02/14/2025 9:35 AM EST Plan of Treatment DateTypeDepartmentCare Team (Latest Contact Info)Vgzaaigasem98/19/2026 [address] [facility] [address] [place] [address] [place] [address] 3 month follow up with lab05/16/2025 10:00 AM ESTVisit (SP) Office Hematology/Oncology [address] [place] [address] Zoey Casas, PA-C [address] [place] [address] 3 month follow up with [facility] MaintenanceDue DateLast DoneCommentsAnxiety Dmlutlssb95/19/1965Depression Wjprzshen24/19/1965Hepatitis C Wivpflpaz89/19/1965 DTaP,Tdap,Td Vaccine (1 - Tdap)1965Medicare Annual Wellness Visit 08/26/2012Shingrix Vaccine (2 of 3)05/07/201412RSV Vaccine (1 - 1-dose 75+ series)2021dvance Directive Tkoylusmgk09/01/2025Covid-19 Vaccine (2024- season), 04/19/2023, 03/11/2022, Additional history existsInfluenza Vaccine (#1), 02/15/2023, 01/31/2023, Additional history existsDiabetes Rjmgaqamx08/20/80461904/16/2024, 12/25/2024, 12/05/2024, Additional history existsColorectal Cancer Screening DiscontinuedFecal Occult NrvfzFoeqvndolwrz38/29/2023Pneumococcal Vaccine: 50+ Vdehvhsfl17/21/2023, 10/17/2021, 11/30/2019, Additional history existsCT ColonographyDiscontinuedCologuard (FIT-DNA)DiscontinuedColonoscopyDiscontinued SigmoidoscopyDiscontinued Procedures Procedure NamePriorityDate/TimeAssociated DiagnosisCommentsPSA/PROSTSPECAG SCRN Apfangw3102/14/2025 9:29 AM EST Special screening for malignant neoplasm of prostate ERYTHROPOIETIN/TCVJnwvhiv81/20/2025 9:29 AM EST Iron deficiency anemia, unspecified iron deficiency anemia type Malaise and fatigue FERRITIN JWLSqaixol44/20/2025 9:29 AM EST Iron deficiency anemia, unspecified iron deficiency anemia type Malaise and fatigue CBC + IZSVUksifop51/20/2025 9:29 AM EST Iron deficiency anemia, unspecified iron deficiency anemia type Malaise and fatigue IRON + JAWWDcdhpza07/20/2025 9:29 AM EST Iron deficiency anemia, unspecified iron deficiency anemia type Malaise and fatigue COMPREHENSIVE METABOLIC TCDQNWlgxonp67/20/2025 9:29 AM EST Iron deficiency anemia, unspecified iron deficiency anemia type Malaise and fatigue EXTERNAL JLNUYGI0401/29/2025 4:12 PM EST IRON + NNQGGieekmu00/22/2025 10:08 AM EDT Iron deficiency anemia, unspecified iron deficiency anemia type Malaise and fatigue FERRITIN AUIVwwkpfh04/22/2025 10:08 AM EDT Iron deficiency anemia, unspecified iron deficiency anemia type Malaise and fatigue CBC + BEHGFivhvjf06/22/2025 10:08 AM EDT Iron deficiency anemia, unspecified iron deficiency anemia type EXTERNAL LAB12/26/2024 3:49 PM EDT EXTERNAL JIGQAANFY06/01/2025 3:49 PM EDT EXTERNAL YLWIVRW4112/26/2024 1:54 PM EDT PROTEIN ELECTROPHORESIS SERUM (P)Uukooyw19/ 2:10 PM EDT Iron deficiency anemia, unspecified iron deficiency anemia type PROTEIN, TOTAL (FOR SEPG)Lvepdyo8212/25/2024 2:10 PM EDT Iron deficiency anemia, unspecified iron deficiency anemia type KAPPA/OLIVIER,FREE,JBBMlydkvg61/30/2025 2:10 PM EDT Iron deficiency anemia, unspecified iron deficiency anemia type IMMUNOFIXATION SCREEN, IEQJUZbvmlim77/30/2025 2:10 PM EDT Iron deficiency anemia, unspecified iron deficiency anemia type IMMUNOGLOBULINS OOFYisthwn96/30/2025 2:10 PM EDT Iron deficiency anemia, unspecified iron deficiency anemia type VITAMIN B12 DQXDGYpsysef99/30/2025 2:10 PM EDT Iron deficiency anemia, unspecified iron deficiency anemia type TSH AMFBynizlr93/30/2025 2:10 PM EDT Iron deficiency anemia, unspecified iron deficiency anemia type Malaise and fatigue PROTEIN ELECTROPHORESIS SERUM W/DFXGGOYkqkbic26/30/2025 2:10 PM EDT Iron deficiency anemia, unspecified iron deficiency anemia type MONOCLONAL PROTEIN, SERUM (BLOOD)Gxopddc6112/25/2024 2:10 PM EDT Iron deficiency anemia, unspecified iron deficiency anemia type METHYLMALONIC KKRBUiyrqmy65/30/2025 2:10 PM EDT Iron deficiency anemia, unspecified iron deficiency anemia type HAPTOGLOBIN CSVReeurze24/30/2025 2:10 PM EDT Iron deficiency anemia, unspecified iron deficiency anemia type FOLATE JFRILGeqtxfk53/30/2025 2:10 PM EDT Iron deficiency anemia, unspecified iron deficiency anemia type FERRITIN RHSMdducke49/30/2025 2:10 PM EDT Iron deficiency anemia, unspecified iron deficiency anemia type ERYTHROPOIETIN/LJIXrkrtpm49/30/2025 2:10 PM EDT Iron deficiency anemia, unspecified iron deficiency anemia type CBC + DKGBAllfnww73/30/2025 2:10 PM EDT Iron deficiency anemia, unspecified iron deficiency anemia type RETIC YXLFFHlkwbka11/30/2025 2:10 PM EDT Iron deficiency anemia, unspecified iron deficiency anemia type LD LACTATE ZONZYGUGmqcbok50/30/2025 2:10 PM EDT Iron deficiency anemia, unspecified iron deficiency anemia type IRON + CUXGAtsqyhl57/30/2025 2:10 PM EDT Iron deficiency anemia, unspecified iron deficiency anemia type COMPREHENSIVE METABOLIC JIFYEReeurio42/30/2025 2:10 PM EDT Iron deficiency anemia, unspecified iron deficiency anemia type EXTERNAL LAB12/20/2024 11:03 AM EDT EXTERNAL LAB12/20/2024 11:03 AM EDT EXTERNAL JLWSLKE7512/20/2024 11:03 AM EDT EXTERNAL LAB12/20/2024 11:03 AM EDT EXTERNAL UYPOOAVMSO88/25/2025 11:03 AM EDT from Last 3 Months Results * (ABNORMAL) PSA/PROSTATE SPECIFIC ANTIGEN SCREENING (02/14/2025 9:29 AM EST) ComponentValueRef RangeTest MethodAnalysis TimePerformed AtPathologist SignaturePSA Screening3.36(H)<2.60 ng/mL02/14/2025 8:43 PM ESTJOINT TOWNSHIP [facility] MAIN LABComment: Total PSA test methodology used is the Electrochemiluminescence Immunoassay by [employer]. Total PSA values by differing methodologies cannot be interchanged. For an individual patient, the significance of a PSA level should be interpreted in a broad clinical context, including age, race, family history, digital rectal exam, prostate size, results of priortesting (prostate biopsy, free PSA, PCA3), and use of 5-alpha reductase inhibitors. Considering thehigh incidence of asymptomatic cancer in the general population that may not pose an ultimate risk to a patient, the decision to recommend urological evaluation or prostate biopsy should be individualized after consideration of all these factors. REFERENCE: Roselyn Beck M.D., M.P.H., Sudhakar Gongora M.D., Ph.D., Gabriel Delacruz M.D., Stephanie Mortensen, M.P.H., Lizz Polanco Sc.D. ??Effect of Verification Bias on Screening for Prostate Cancer by Measurement of Prostatic Specific Antigen. N Engl J Med 2003,349:335-42. Specimen (Source)Anatomical Location / LateralityCollection Method / Volume Collection TimeReceived TimeBloodBLOOD SPECIMEN / UnknownVenipuncture / Unknown 02/14/2025 9:29 AM EST02/14/2025 9:29 AM EST Narrative Authorizing ProviderResult TypeResult StatusLisa Wendie Boyce CNPLABORATORYFinal ResultPerforming OrganizationAddressCity/State/ZIP CodePhone Number [facility] [place] [address], * IRON AND TIBC (02/14/2025 9:29 AM EST) Only the most recent of3 resultswithin the time period is included. ComponentValueRef RangeTest MethodAnalysis TimePerformed AtPathologist Signature Uafc9812 - 186 ug/dL02/14/2025 7:32 PM [facility] BAJZORI283941 - 386 ug/dL02/14/2025 7:32 PM [facility] LABTransferrin Saturation 21.515.0 - 57.0 %02/14/2025 7:32 PM [facility] LABSpecimen (Source)Anatomical Location / LateralityCollection Method / VolumeCollection TimeReceived TimeBloodBLOOD SPECIMEN / UnknownVenipuncture / Cqilwyt7102/14/2025 9:29 AM EST02/14/2025 9:29 AM EST Narrative Authorizing ProviderResult TypeResult StatusMindy Brionna Casas PA-CLABORATORYFinal ResultPerforming OrganizationAddressCity/State/ZIP CodePhone Number [facility] [address] [place] [address], * FERRITIN (02/14/2025 9:29 AM EST) Only the most recent of3 resultswithin the time period is included. ComponentValueRef RangeTest MethodAnalysis TimePerformed AtPathologist Signature Wewuavem616.030.3 - 565.7 ng/mL02/14/2025 7:43 PM [facility] Specimen (Source)Anatomical Location / LateralityCollection Method / Volume Collection TimeReceived TimeBloodBLOOD SPECIMEN / UnknownVenipuncture / Unknown 02/14/2025 9:29 AM EST02/14/2025 9:29 AM EST Narrative Authorizing ProviderResult TypeResult StatusZoey Casas PA-CLABORATORYFinal ResultPerforming OrganizationAddressCity/State/ZIP CodePhone Number [facility] [address] [place] [address], * ERYTHROPOIETIN/EPO (02/14/2025 9:29 AM EST) Only the most recent of2 resultswithin the time period is included. ComponentValueRef RangeTest MethodAnalysis TimePerformed AtPathologist Signature Oealnqigkdmmky86.52.6 - 18.5 mIU/mL02/15/2025 11:17 AM [facility] LABSpecimen (Source)Anatomical Location / LateralityCollection Method / Volume Collection TimeReceived TimeBloodBLOOD SPECIMEN / UnknownVenipuncture / Unknown 02/14/2025 9:29 AM EST02/14/2025 9:29 AM EST Narrative [facility] - 02/15/2025 11:17 AM EST Test analyzed by the Magali DxI method. Authorizing ProviderResult TypeResult StatusZoey Casas PA-CLABORATORYFinal ResultPerforming OrganizationAddressCity/State/ZIP CodePhone Number [facility] [address] [place] [address], * (ABNORMAL) COMPREHENSIVE METABOLIC PANEL (02/14/2025 9:29 AM EST) Only the most recent of2 resultswithin the time period is included. ComponentValueRef RangeTest MethodAnalysis TimePerformed AtPathologist Signature Protein, Total6.1(L)6.3 - 8.0 g/dL02/14/2025 10:12 AM [facility] LABAlbumin3.8(L)3.9 - 4.9 g/dL02/14/2025 10:12 AM [facility] LABCalcium, Total8.88.5 - 10.2 mg/dL02/14/2025 10:12 AM [facility] LABBilirubin, Total0.50.2 - 1.3 mg/dL 02/14/2025 10:12 AM [facility] LABAlkaline Phosphatase 35420 - 113 U/L104/16/2024 10:12 AM [facility] DHQXKS69 14 - 40 U/L104/16/2024 10:12 AM [facility] MAIAJO5769 - 54 U/L104/16/2024 10:12 AM [facility] JHTZwwrrhl271(H) 74 - 99 mg/dL02/14/2025 10:12 AM [facility] Comment: The [place] Diabetes Association (ADA) provides guidance for cutoff [...] Standards of Medical Care in Diabetes 2016, [place] [employer]. Diabetes Care. 2016.39(Suppl 1). HBZ859 - 24 mg/dL02/14/2025 10:12 AM [facility] Creatinine0.940.73 - 1.22 mg/dL02/14/2025 10:12 AM [facility] VKNHqazox550989 - 144 mmol/L104/16/2024 10:12 AM [facility] LABPotassium4.43.7 - 5.1 mmol/L104/16/2024 10:12 AM [facility] DNIPukvwztz02245 - 107 mmol/L104/16/2024 10:12 AM EST [facility] XQXDG87214 - 30 mmol/L104/16/2024 10:12 AM EST [facility] LABAnion Gap6(L)8 - 15 mmol/L104/16/2024 10:12 AM [facility] LABEstimated Glomerular Filtration Rate 83>=60 mL/min/1.73m 02/14/2025 10:12 AM [facility] LABComment:Estimated Glomerular Filtration Rate (eGFR) is calculated using the 2020 CKD-EPI creatinine equation. This equation utilizes serum creatinine, sex, and age as parameters. The creatinine assay has traceable calibration to isotope dilution- mass spectrometry. Refer to KDIGO guidelines for clinical interpretation. In patients with unstable renal function, e.g. those with acute kidney injury, the eGFRmay not accurately reflect actual GFR.Specimen (Source)Anatomical Location / LateralityCollection Method / VolumeCollection TimeReceived TimeBloodBLOOD SPECIMEN / UnknownVenipuncture / Rplpvkj9002/14/2025 9:29 AM EST02/14/2025 9:29 AM EST Narrative Authorizing ProviderResult TypeResult StatusMinsalvador Casas PA-CLABORATORYFinal ResultPerforming OrganizationAddressCity/State/ZIP CodePhone Number [facility] [address] [place] [address] * (ABNORMAL) COMPLETE BLOOD COUNT AND DIFFERENTIAL (02/14/2025 9:29 AM EST) Only the most recent of3 resultswithin the time period is included. ComponentValueRef RangeTest MethodAnalysis TimePerformed AtPathologist Signature WBC6.043.70 - 11.00 k/uL02/14/2025 9:32 AM [facility] LABRBC4.614.20 - 6.00 m/uL02/14/2025 9:32 AM ESTNORTBEAUMONT [facility] BQODrnxvokhkc11.313.0 - 17.0 g/dL02/14/2025 9:32 AM [facility] PVKKqjsfywvjg52.039.0 - 51.0 %02/14/2025 9:32 AM EST [facility] UPFNSD69.980.0 - 100.0 fL02/14/2025 9:32 AM ESTNORTBEAUMONT [facility] QYXWQE90.926.0 - 34.0 pg02/14/2025 9:32 AM [facility] WSDGUIA53.430.5 - 36.0 g/dL02/14/2025 9:32 AM [facility] LABRDW-CV15.2(H)11.5 - 15.0 %02/14/2025 9:32 AM [facility] LABPlatelet Molmm093778 - 400 k/uL 02/14/2025 9:32 AM [facility] LABMPV9.49.0 - 12.7 fL 02/14/2025 9:32 AM [facility] LABNeutrophils %63.6% 02/14/2025 9:32 AM [facility] LABAbs Neut3.851.45 - 7.50 k/uL02/14/2025 9:32 AM [facility] LABLymphocytes %25.2%02/14/2025 9:32 AM [facility] LABAbs Lymph1.52 1.00 - 4.00 k/uL02/14/2025 9:32 AM [facility] Monocytes %7.0%02/14/2025 9:32 AM [facility] LABAbs Mono0.42<0.87 k/uL02/14/2025 9:32 AM [facility] Eosinophils %2.5%02/14/2025 9:32 AM [facility] LABAbs Eosin0.15<0.46 k/uL02/14/2025 9:32 AM [facility] Basophils %0.7%02/14/2025 9:32 AM [facility] LABAbs Baso0.04<0.11 k/uL02/14/2025 9:32 AM [facility] Immature Granulocytes %1.0%02/14/2025 9:32 AM [facility] LABAbs Immature Gran0.06<0.10 k/uL02/14/2025 9:32 AM [facility] LABNRBC0.0/100 WBC02/14/2025 9:32 AM [facility] LABAbsolute nRBC<0.01<0.01 k/uL02/14/2025 9:32 AM EST [facility] LABDiff KdanKenh33/20/2025 9:32 AM [facility] LABSpecimen (Source)Anatomical Location / LateralityCollection Method / VolumeCollection TimeReceived TimeBloodBLOOD SPECIMEN / UnknownVenipuncture / Iceugwv0802/14/2025 9:29 AM EST02/14/2025 9:29 AM EST Narrative Authorizing ProviderResult TypeResult StatusMindy Brionna Casas PA-CLABORATORYFinal ResultPerforming OrganizationAddressCity/State/ZIP CodePhone Number [facility] [address] [place] [address] * EXTERNAL IMAGING (01/29/2025 4:12 PM EST)Anatomical RegionLateralityModality Other Narrative Authorizing ProviderResult TypeResult StatusExternal Provider PA-CRADIOLOGYFinal Result * EXTERNAL LAB (12/26/2024 3:49 PM EDT) Only the most recent of4 resultswithin the time period is included. Narrative Authorizing ProviderResult TypeResult StatusExternal Provider PA-CLABORATORY Final Result * EXTERNAL PROCEDURE (12/26/2024 3:49 PM EDT) Narrative Authorizing ProviderResult TypeResult StatusExternal Provider PA-CPROCEDUREFinal Result * EXTERNAL IMAGING (12/26/2024 1:54 PM EDT)Anatomical RegionLateralityModality Other Narrative Authorizing ProviderResult TypeResult StatusExternal Provider PA-CRADIOLOGYFinal Result * (ABNORMAL) IMMUNOFIXATION SCREEN, SERUM (12/25/2024 2:10 PM EDT)Component ValueRef RangeTest MethodAnalysis TimePerformed AtPathologist SignatureMPA ResultA poorly defined region of restricted mobility is present that may represent an M protein.(A)No M protein is identified.12/27/2024 7:53 AM EDT [facility] LABInterpretation (MPA)Poorly definded region of restricted mobility in [...] further for monoclonal gammopathy. Clinical correlation is necessary.12/27/2024 7:53 AM [facility]TCST. [facility] LABStaff Review (MPA)Reviewed by Miley Valadez MD12/27/2024 7:53 AM EDT [facility] LABSpecimen (Source)Anatomical Location / LateralityCollection Method / VolumeCollection TimeReceived TimeBloodBLOOD SPECIMEN / UnknownVenipuncture / Ifeiaih6612/25/2024 2:10 PM EDT12/25/2024 2:10 PM EDT Narrative Authorizing ProviderResult TypeResult StatusMindy Brionna Casas PA-CLABORATORYFinal ResultPerforming OrganizationAddressCity/State/ZIP CodePhone Number [facility] [address] [facility] [place] [address], * (ABNORMAL) PROTEIN, TOTAL (FOR SEPG) (12/25/2024 2:10 PM EDT)ComponentValueRef RangeTest MethodAnalysis TimePerformed AtPathologist SignatureProtein, Total 6.0(L)6.3 - 8.0 g/dL12/26/2024 3:00 AM [facility] Specimen (Source)Anatomical Location / LateralityCollection Method / Volume Collection TimeReceived TimeBloodBLOOD SPECIMEN / UnknownVenipuncture / Vtylfzg0412/25/2024 2:10 PM EDT12/25/2024 2:10 PM EDT Narrative Authorizing ProviderResult TypeResult StatusMinsalvador BOURGEOIS-CLABORATORYFinal ResultPerforming OrganizationAddressCity/State/ZIP CodePhone Number [facility] [address] [facility] [place] [address], * (ABNORMAL) PROTEIN ELECTROPHORESIS SERUM (P) (12/25/2024 2:10 PM EDT)Component ValueRef RangeTest MethodAnalysis TimePerformed AtPathologist SignatureAlbumin for SPE3.693.43 - 5.41 g/dL12/27/2024 8:18 AM [facility] LABAlpha 1 Globulin0.330.18 - 0.43 g/dL12/27/2024 8:18 AM [facility] LABAlpha 2 Globulin0.710.42 - 0.98 g/dL12/27/2024 8:18 AM EDT [facility] LABBeta Globulin0.640.61 - 1.17 g/dL12/27/2024 8:18 AM [facility] LABGamma Globulin0.630.53 - 1.51 g/dL 12/27/2024 8:18 AM [facility] LABInterpretation (Prot Electro)An atypical region of restricted mobility is identified on protein electrophoresis.(A)No definitive M protein is identified on protein electrophoresis.12/27/2024 8:18 AM [facility] Interpretation Comment for Protein ElectrophoresisThe atypical region is relatively poorly defined and may represent an unusual presentation of polycl onal immunoglobulins, but cannot rule out the presence of a low level M protein. If clinically indicated, monoclonal protein analysis and serum free light chain analysis are suggested to evaluate further for monoclonal gammopathy.12/27/2024 8:18 AM [facility] LABM-Protein Qikxpszk30/02/2025 8:18 AM [facility] LABComment:Not Applicable.M-Protein Concentration0.00<=0.00 g/dL12/27/2024 8:18 AM EDT [facility] LABSPE Staff ReviewReviewed by Miley Valadez MD12/27/2024 8:18 AM [facility] LABSpecimen (Source) Anatomical Location / LateralityCollection Method / VolumeCollection Time Received TimeBloodBLOOD SPECIMEN / UnknownVenipuncture / Wweixdb8612/25/2024 2:10 PM EDT12/25/2024 2:10 PM EDT Narrative [facility] - 12/27/2024 8:18 AM EDT Serum electrophoresis test was performed using the [employer] V8 NEXUS capillary electrophoresis method. Results obtained with different assay methods or kits cannot be used interchangeably. Authorizing ProviderResult TypeResult StatusMinsalvador BOURGEOIS-CLABORATORYFinal ResultPerforming OrganizationAddressCity/State/ZIP CodePhone Number [facility] [address] [facility] [address] * (ABNORMAL) KAPPA/OLIVIER,FREE,SER (12/25/2024 2:10 PM EDT)ComponentValueRef Range Test MethodAnalysis TimePerformed AtPathologist SignatureKappa Free, Serum23.3 (H)3.3 - 19.4 mg/L1 3:09 PM [facility] Comment: Rarely, increased serum free light chains levels may not be detected or accurately quantified due to prozone phenomenon or in high viscosity samples using this immunoturbidimetric assay. Correlation with other laboratory results and clinical findings is recommended. The Nucla Free Light Chain was performed using the Binding Site Optilite immunoturbidimetric method. Result obtained with different assay methods or kits cannot be used interchangeably. Lambda Free, Serum22.05.7 - 26.3 mg/L1 3:09 PM [facility] LABComment: Rarely, increased serum free light chains levels may not be detected or accurately quantified due to prozone phenomenon or in high viscosity samples using this immunoturbidimetric assay. Correlation with other laboratory results and clinical findings is recommended. The Lambda Free Light Chain was performed using the Binding Site Optilite immunoturbidimetric method. Result obtained with different assay methods or kits cannot be used interchangeably. ?? K/L Ratio, Serum1.060.26 - 1.6512/26/2024 3:09 PM [facility] LABSpecimen (Source)Anatomical Location / LateralityCollection Method / VolumeCollection TimeReceived TimeBloodBLOOD SPECIMEN / UnknownVenipuncture / Iwzyawx5712/25/2024 2:10 PM EDT12/25/2024 2:10 PM EDT Narrative Authorizing ProviderResult TypeResult StatusZoey Staton Augusto TIMP[facility] REG[facility]AL HOSPITALCLABORATORYFinal ResultPerforming OrganizationAddressCity/State/ZIP CodePhone Number [facility] [address] [place] [address], * LACTATE DEHYDROGENASE (12/25/2024 2:10 PM EDT)ComponentValueRef RangeTest MethodAnalysis TimePerformed AtPathologist [id number] - 225 U/L 12/25/2024 2:38 PM EDTNORTBEAUMONT [facility] LABSpecimen (Source) Anatomical Location / LateralityCollection Method / VolumeCollection Time Received TimeBloodBLOOD SPECIMEN / UnknownVenipuncture / Krisnzi9112/25/2024 2:10 PM EDT12/25/2024 2:10 PM EDT Narrative Authorizing ProviderResult TypeResult StatusZoey [place] Augusto PA-CLABORATORYFinal ResultPerforming OrganizationAddressCity/State/ZIP CodePhone Number [facility] [address] [place] [address] * VITAMIN B12 (12/25/2024 2:10 PM EDT)ComponentValueRef RangeTest MethodAnalysis TimePerformed AtPathologist SignatureVitamin [id number] - 1,245 pg/mL12/26/2024 3:12 AM EDUN[facility] LABSpecimen (Source)Anatomical Location / LateralityCollection Method / VolumeCollection TimeReceived Time BloodBLOOD SPECIMEN / UnknownVenipuncture / Vgmrhvw14/ 2:10 PM EDT 12/25/2024 2:10 PM EDT Narrative Authorizing ProviderResult TypeResult StatusZoey Casas PA-CLABORATORYFinal ResultPerforming OrganizationAddressCity/State/ZIP CodePhone Number [facility] [address] [place] [phone], * (ABNORMAL) THYROID STIMULATING HORMONE (12/25/2024 2:10 PM EDT)ComponentValue Ref RangeTest MethodAnalysis TimePerformed AtPathologist SignatureTSH4.760(H) 0.270 - 4.200 mIU/L1 2:06 PM EDTCST. RITA'[facility] LAB Specimen (Source)Anatomical Location / LateralityCollection Method / Volume Collection TimeReceived TimeBloodBLOOD SPECIMEN / UnknownVenipuncture / Beqxhpl0912/25/2024 2:10 PM EDT12/25/2024 2:10 PM EDT Narrative Authorizing ProviderResult TypeResult StatusZoey Casas PA-CLABORATORYFinal ResultPerforming OrganizationAddressCity/State/ZIP CodePhone Number [facility] [address] [address], [place] * (ABNORMAL) RETICULOCYTE COUNT (12/25/2024 2:10 PM EDT)ComponentValueRef Range Test MethodAnalysis TimePerformed AtPathologist SignatureRetic %5.7(H)0.4 - 2.0 %12/25/2024 2:30 PM EDTNOHEALTHSOU[facility] LABAbs Retic0.205 (H)0.018 - 0.100 M/uL12/25/2024 2:30 PM EDTNORTBEAUMONT [facility] LABSpecimen (Source)Anatomical Location / LateralityCollection Method / Volume Collection TimeReceived TimeBloodBLOOD SPECIMEN / UnknownVenipuncture / Fvrkhkq1712/25/2024 2:10 PM EDT12/25/2024 2:10 PM EDT Narrative Authorizing ProviderResult TypeResult StatusZoey Casas PA-CLABORATORYFinal ResultPerforming OrganizationAddressCity/State/ZIP CodePhone Number [facility] [address] [place] [address] * METHYLMALONIC ACID (12/25/2024 2:10 PM EDT)ComponentValueRef RangeTest Method Analysis TimePerformed AtPathologist SignatureMethylmalonic Acid0.10<=0.40 umol/L1 4:59 PM EDTCST. RITA'S HOSPITAL LABComment:This test was developed, and its performance characteristics determined by the [facility] Department of Pathology and Laboratory Medicine. It has not been cleared or approved by the FDA. The [facility] Department of Pathology and Laboratory Medicine is regulated under CLIA as qualified to perform high- complexity testing. This test is used for clinical purposes. It should not be regarded as investigational or for research.Specimen (Source)Anatomical Location / LateralityCollection Method / VolumeCollection TimeReceived Time BloodBLOOD SPECIMEN / UnknownVenipuncture / Xzgqrgo3312/25/2024 2:10 PM EDT 12/25/2024 2:10 PM EDT Narrative Authorizing ProviderResult TypeResult StatusMinsalvador Casas [place]-CLABORATORYFinal ResultPerforming OrganizationAddressCity/State/ZIP CodePhone Number [facility] [address] [address], * IMMUNOGLOBULINS,IGG,IGA,IGM (12/25/2024 2:10 PM EDT)ComponentValueRef Range Test MethodAnalysis TimePerformed AtPathologist [id number] - 1,600 mg/dL12/26/2024 12:51 PM EDTCST. [facility] XLCLsJ78068 - 400 mg/dL12/26/2024 12:51 PM EDTCST[facility] SYXUnF6043 - 230 mg/dL12/26/2024 12:51 PM EDTCST. [facility]ITA'[facility] LABSpecimen (Source) Anatomical Location / LateralityCollection Method / VolumeCollection Time Received TimeBloodBLOOD SPECIMEN / UnknownVenipuncture / Qzofbyk7612/25/2024 2:10 PM EDT12/25/2024 2:10 PM EDT Narrative Authorizing ProviderResult TypeResult StatusMinsalvador Brionna Augusto PA-CLABORATORYFinal ResultPerforming OrganizationAddressCity/State/ZIP CodePhone Number [facility] [address] [facility] [place] [address], * HAPTOGLOBIN (12/25/2024 2:10 PM EDT)ComponentValueRef RangeTest MethodAnalysis TimePerformed AtPathologist GolkasakeAklslouoial78310 - 238 mg/dL12/26/2024 2:59 PM EDUNIV[facility] LABSpecimen (Source)Anatomical Location / LateralityCollection Method / VolumeCollection TimeReceived Time BloodBLOOD SPECIMEN / UnknownVenipuncture / Asoqhgm7512/25/2024 2:10 PM EDT 12/25/2024 2:10 PM EDT Narrative Authorizing ProviderResult TypeResult StatusMinsalvador Casas PA-CLABORATORYFinal ResultPerforming OrganizationAddressCity/State/ZIP CodePhone Number [facility] [address] [place] [address], * FOLATE, SERUM (12/25/2024 2:10 PM EDT)ComponentValueRef RangeTest Method Analysis TimePerformed AtPathologist SignatureFolate>20.0>4.7 ng/mL12/26/2024 3:12 AM [facility] LABComment: A result of > 20 ng/mL is not necessarily indicative of a pathologic or treatable condition: it reflects a limitation of the test methodology. Assay reference range: 4.8 to 24.2 ng/mL. Suitable for detection of folate deficiency. Reference: Folate III (Folate III) [package insert V 1.0 Portuguese]. [employer] [facility], [place], [place]: January 2015. Specimen (Source)Anatomical Location / LateralityCollection Method / Volume Collection TimeReceived TimeBloodBLOOD SPECIMEN / UnknownVenipuncture / Unknown 12/25/2024 2:10 PM EDT12/25/2024 2:10 PM EDT Narrative Authorizing ProviderResult TypeResult StatusMinsalvador Casas PA-CLABORATORYFinal ResultPerforming OrganizationAddressCity/State/ZIP CodePhone Number [facility] [address] [place] [address], [place] * EXTERNAL IMAGING (12/20/2024 11:03 AM EDT)Anatomical RegionLateralityModality Other Narrative Authorizing ProviderResult TypeResult StatusExternal Provider PA-CRADIOLOGYFinal Result * EXTERNAL CARDIOLOGY (12/20/2024 11:03 AM EDT) Narrative Authorizing ProviderResult TypeResult StatusExternal Provider ARACCARDIOLOGY Final Result from Last 3 Months Insurance Care Teams Team MemberRelationshipSpecialtyStart DateEnd Date Marisol Boyce, GRINDER SET UP OPERATOR [address] [address] [place] [address] PCP - GeneralFamily Medicine12/19/24
--- OUTSIDE RECORDS SUMMARY | 2025-03-18 13:31 | XMS_ITS | Encounter Summary ---
Author Organization [facility] Address [address] [place] [address] Care Team Providers Care Precinct Police Captain Name Role Phone Marisol Boyce MD Primary Care Provider [phone] Reason for Visit * ReasonOnset DateCommentsMed Kjcpkh2903/05/2025 Encounter Details DateTypeDepartmentCare Team (Latest Contact Info)Enlfzaabbyh93/09/2025Refill [facility] at [facility] [address] [place] [phone] Zenobia Valenzuela MA Social History Tobacco UseTypesPacks/DayYears UsedDateSmoking Tobacco: FormerCigarettesQuit: 2020Passive Smoke Exposure: PastSmokeless Tobacco: Never Passive Exposure Comments:As a kid Alcohol UseStandard Drinks/WeekCommentsYes0 (1 standard drink = 0.6 oz pure alcohol)occasionalAHC UtilitiesAnswerDate RecordedIn the past 12 months has the [employer], gas, oil, or water [employer] threatened to shut off services in your home?No11/10/2023Humiliation, Afraid, Rape, and Kick questionnaireAnswerDate RecordedWithin the last year, have you been afraid of your partner or ex-partner?No11/10/2023Within the last year, have you been humiliated or emotionally abused in other ways by your partner or ex-partner?No11/10/2023 Within the last year, have you been kicked, hit, slapped, or otherwise physically hurt by your partner or ex-partner?No11/10/2023Within the last year, have you been raped or forced to have any kind of sexual activity by your part ner or ex-partner?No11/10/2023Overall Financial Resource Strain (CARDIA)Answer Date RecordedHow hard is it for you to pay for the very basics like food, housing, medical care, and heating?Not hard at all11/10/2023HQ-2AnswerDate RecordedPatient Health Questionnaire-2 [id number] Safety & Environment AnswerDate RecordedFear of Current or Ex-PartnerNot on file05/19/2023Emotionally AbusedNot on file05/19/2023hysically AbusedNot on file05/19/2023Sexually Abused Not on 05/19/2023hysically or Sexually AbusedNot on file05/19/2023 TransportationAnswerDate RecordedIn the past 12 months, has lack of transportation kept you from medical appointments or from getting medications?No 11/10/2023Lack of Transportation (Non-Medical)Not on file11/10/2023Housing Stability Vital SignAnswerDate RecordedUnable to Pay for Housing in the Last YearNot on file11/10/2023Number of Places Lived in the Last YearNot on file 11/10/2023In the last 12 months, was there a time when you did not have a steady place to sleep or slept in ashelter (including now)?No11/10/2023Hunger Vital SignAnswerDate RecordedWithin the past 12 months, you worried that your food would run out before you got the money to buymore.Never true11/10/2023an Out of Food in the Last YearNot on file11/10/2023Sex and Gender InformationValueDate RecordedSex Assigned at BajxfBwxb74/09/2025 10:56 AM EDTLegal XtwIjlb3709/23/2021 10:16 PM EDTGender GtwnrmgiGpei41/09/2025 10:56 AM EDTSexual Orientation Heterosexual or Dmuplzto83/09/2025 10:56 AM EDTdocumented as of this encounter Plan of Treatment DateTypeDepartmentCare Team (Latest Contact Info)Hzjgrlevmvv96/11/2026 11:30 AM ESTOffice Visit [facility] [address] [place] [phone] Natasha Campo MD [address] [facility] [address] [facility] [place] [address] documented as of this encounter Visit Diagnoses Not on filedocumented in this encounter Care Teams Team MemberRelationshipSpecialtyStart DateEnd Date Marisol Boyce MD [address] [place] [address] PCP - General04/29/22documented as of this encounter
--- OUTSIDE RECORDS SUMMARY | 2025-03-18 13:31 | XMS_ITS | Encounter Summary ---
Author Organization [facility] Address [address] [place] [address] Care Team Providers Care Bumper Operator Name Role Phone Marisol Boyce MD Primary Care Provider [phone] Encounter Details DateTypeDepartmentCare Team (Latest Contact Info)Sfhntrgggls56/12/2025Telephone [facility] [address] [place] [address] Laura Clark MA Social History Tobacco UseTypesPacks/DayYears UsedDateSmoking Tobacco: FormerCigarettesQuit: 2020Passive Smoke Exposure: PastSmokeless Tobacco: Never Passive Exposure Comments:As a kid Alcohol UseStandard Drinks/WeekCommentsYes0 (1 standard drink = 0.6 oz pure alcohol)occasionalAHC UtilitiesAnswerDate RecordedIn the past 12 months has the [employer], gas, oil, or water [employer] threatened to shut off services in your [...] heating?Not hard at all11/10/2023HQ-2AnswerDate RecordedPatient Health Questionnaire-2 [id number] Safety & Environment AnswerDate RecordedFear of Current or Ex-PartnerNot on file05/19/2023Emotionally AbusedNot on file05/19/2023hysically AbusedNot on file05/19/2023Sexually Abused Not on file05/19/2023hysically or Sexually AbusedNot on file05/19/2023 TransportationAnswerDate RecordedIn [...] file11/10/2023Sex and Gender InformationValueDate RecordedSex Assigned at PdzzwOblg84/09/2025 10:56 AM EDTLegal HapNesz5909/23/2021 10:16 PM EDTGender LewtjbfaDemi39/09/2025 10:56 AM EDTSexual Orientation Heterosexual or Egsoxzoj07/09/2025 10:56 AM EDTdocumented as of this encounter Miscellaneous Notes * Telephone Encounter - Laura Clark MA - 03/08/2025 4:52 PM EST Itzel BandarELO johnson MA Please let him know there were no significant changes on his ECHO. F/U with Dr. Campo as planned. Thank you Spoke to , advised of Echo results per Zoey Portillo CNP's request. verbalized understanding. documented in this encounter Plan of Treatment DateTypeDepartmentCare Team (Latest Contact Info)Bjpyqzlocnv48/11/2026 11:30 AM ESTOffice Visit [facility] at [facility] [address] [place] [address] Natasha Campo MD [address] [facility] [address] [facility] [place] [phone] documented as of this encounter Visit Diagnoses Not on filedocumented in this encounter Care Teams Team MemberRelationshipSpecialtyStart DateEnd Date Marisol Boyce MD [address] [place] [address] PCP - General04/29/22documented as of this encounter
--- OUTSIDE RECORDS SUMMARY | 2025-03-18 13:31 | XMS_ITS | Encounter Summary ---
Author Organization [facility] Address [address] [place] [address] Care Team Providers Care Lna Name Role Phone Marisol Boyce MD Primary Care Provider [phone] Reason for Visit * ReasonOnset DateCommentsMed Msqpma9303/05/2025 Encounter Details DateTypeDepartmentCare Team (Latest Contact Info)Izonatiuhxh94/09/2025Refill [facility] Heart at [facility] [address] [place] [phone] Zenobia Valenzuela MA Social History Tobacco UseTypesPacks/DayYears UsedDateSmoking Tobacco: FormerCigarettesQuit: 2020Passive Smoke Exposure: PastSmokeless Tobacco: Never Passive Exposure Comments:As a kid Alcohol UseStandard Drinks/WeekCommentsYes0 (1 standard drink = 0.6 oz pure alcohol)occasionalAHC UtilitiesAnswerDate RecordedIn the past 12 months has the [employer], gas, oil, or water [employer] threatened to shut off services in your [...] heating?Not hard at all11/10/2023HQ-2AnswerDate RecordedPatient Health Questionnaire-2 [id number] Safety & Environment AnswerDate RecordedFear of Current [...] file11/10/2023Sex and Gender InformationValueDate RecordedSex Assigned at XnnajLipw30/09/2025 10:56 AM EDTLegal BrqGxcm2409/23/2021 10:16 PM EDTGender RletqqraThee73/09/2025 10:56 AM EDTSexual Orientation Heterosexual or Pnwyrgww05/09/2025 10:56 AM EDTdocumented as of this encounter Plan of Treatment DateTypeDepartmentCare Team (Latest Contact Info)Lllnypntfdz75/11/2026 11:30 AM ESTOffice Visit [facility] [address] [place] [address] Natasha Campo MD [address] [facility] [address] [facility] [place] [address] documented as of this encounter Visit Diagnoses Not on filedocumented in this encounter Care Teams Team MemberRelationshipSpecialtyStart DateEnd Date Marisol Boyce MD [address] [place] [address] PCP - General04/29/22documented as of this encounter
--- OUTSIDE RECORDS SUMMARY | 2025-03-18 13:31 | XMS_ITS | Clinical Summary ---
Author Organization [facility] Address [address] [place] [address] Care Team Providers Care Hvac Services Professional Name Role Phone Marisol Boyce MD Primary Care Provider [phone] Allergies No known active allergies Medications MedicationSigDispense QuantityRefillsLast FilledStart DateEnd DateStatus tamsulosin (Flomax) 0.4 mg 24 hr capsule Take 0.4 mg by mouth in the morning.03/15/2022ctive lisinopril 5 mg tablet Indications:Essential hypertensionTake 1 tablet (5 mg) by mouth in the morning. 90 tablet 4Active Additional Information Patient not taking.Reported on 01/03/2025 aspirin 81 mg EC tablet Take 81 mg by mouth in the morning.Active lisinopril 20 mg tablet Indications:Primary hypertensionTake 1 tablet (20 mg) by mouth in the morning. 90 tablet /6Active carvedilol (Coreg) 3.125 mg tablet Indications:Primary hypertensionTake 1 tablet (3.125 mg) by mouth with breakfast and with evening meal. 180 tablet /6Active rivaroxaban (Xarelto) 20 mg tablet Indications:Persistent atrial fibrillation (CMS/HCC)Take 1 tablet (20 mg) by mouth daily with evening meal. Take with food. 90 tablet 5Active ezetimibe (Zetia) 10 mg tablet Indications:Pure hypercholesterolemiaTake 1 tablet (10 mg) by mouth at bedtime. 90 tablet 308//6Active atorvastatin (Lipitor) 80 mg tablet Indications:Coronary artery disease due to lipid rich plaqueTake 1 tablet (80 mg) by mouth at bedtime. 90 tablet [id number] ferrous sulfate 325 (65 Fe) MG tablet Take 1 tablet by mouth in the morning.5Active omeprazole (PriLOSEC) [address] capsule Take 40 mg by mouth in the morning.5Active amiodarone (Pacerone) 200 mg tablet Indications:A-fib (CMS/HCC)Take 1 tablet (200 mg) by mouth once daily as directed. 90 tablet 5Active dapagliflozin propanediol (Farxiga) 10 mg Indications:Acute combined systolic and diastolic heart failure (CMS/HCC)Take 1 tablet (10 mg) by mouth once daily as directed. 90 tablet 5Active Active Problems ProblemNoted DateDiagnosed DateCentrilobular hsregxyga55/18/2025Primary insomnia 05/15/2024Type 2 diabetes mellitus with diabetic peripheral angiopathy without mojgxtuc07/18/2025Hiatal zcvfij6104/11/2024 Overview (10/09/2024): Noted on EGD 04/11/24 Chronic thoracic back pain01/04/2024Other omvauurwxixsj76/27/2024Left ventricular jylzqpyt94/15/2024seudoaneurysm of left ventricle of heart 11/10/2023cute cough10/11/2023 Overview (11/22/2023): Last Assessment & Plan: Will check xray, no s/s heart failure Will order health trax testing, but suspect more related to colleen inhibitor change from ramipril to lisinopril If worsening contact office Other specified qfgsnykewjynpb80/09/2024-fib09/30/2023NSTEMI (non-ST elevated myocardial infarction)09/30/2023arrett oiuhyjczm14/12/2024 Overview (11/22/2023): Last Assessment & Plan: Will need to have repeat EGD, discussed that today, will wait and revisit in August appt d/t 's medical issues going on BPH (benign prostatic hyperplasia)06/07/2023 Overview (11/22/2023): Last Assessment & Plan: Has upcoming appt with urology Cervical spinal nercqraz41/12/2024Encounter for subsequent annual wellness visit (AWV) in Medicare bjhkdwx8506/07/2023 Overview (11/22/2023): Last Assessment & Plan: Reviewed Ht/Wt/BMI Recommend eye exam yearly Recommend dental exams twice a year Balance work/leisure activities Exercises is recommended most days of the week (appropriate as chronic conditions allow) Follow up yearly and prn Also gave info on advanced directives as well Erectile rtauemssyuk29/12/2097Prhpuzgyuxyspo81/12/2024 Overview (11/22/2023): Last Assessment & Plan: Continue statin CORNELIA (obstructive sleep apnea)06/07/2023Tubulovillous adenoma of colon06/07/2023 WESTLEY (iron deficiency anemia) Overview (04/18/2023): Last Assessment & Plan: Check labs Lumbosacral pain Overview (04/18/2023): Last Assessment & Plan: Follow with pain mgmt in the past, not currently If he decides we can try PT he will let me know Type 2 diabetes mellitus without complication, with long-term current use of lzdhmfo70 Overview (04/18/2023): Last Assessment & Plan: No changes in dose of insulin or meds Check labs Check blood sugars daily, notify if <70 or >200. Take medications (pills or insulin) as directed. Monitor for s/s of hypoglycemia (sweaty, dizziness, nausea, vomiting, or shakiness). Watch forincrease in thirst, urination, or appetite. Inspect feet frequently monitoring for open wounds , and also recommend yearly eye exam. Pt should attempt to remain as physically active as chronic conditions allow, as well as trying to follow a diet low in carbohydrates, and simple sugars. 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 Diabetes /03/2023isorder of carotid nxsvhe1904/30/2022 Overview (06/25/2022): Images from the original note were not included. 04/22/2006 Assessment & Plan (06/25/2022 2:42 PM EDT): Monitored per vascular surgery Dr. Ruiz Dizzy afcrqh223Primary /03/2023 Assessment & Plan (06/25/2022 2:44 PM EDT): Hypertension is Typically well controlled at home per patient Continue carvedilol, ramipril Assessment & Plan (04/30/2022 10:31 AM EST): Hypertension is 162/74 supine and decreased by 30 points standing to 132/67 Continue all current medications, start to record b/p at home and RTC in 1 month for review. Peripheral arterial occlusive cttgyds8304/30/2022 Assessment & Plan (06/25/2022 2:48 PM EDT): Remained stable continue aspirin, Plavix, Lipitor Tobacco dependence /03/2023Orthostatic jeaolwoffkp70/03/2023 Assessment & Plan (06/25/2022 2:48 PM EDT): No concerns or symptoms since last visit Assessment & Plan (04/30/2022 10:28 AM EST): incresase hydration- typically only drinks coffee and coke Change positions well BALBUENA (dyspnea on exertion)04/30/2022 Assessment & Plan (06/25/2022 2:48 PM EDT): Remained stable since patient denies of any worsening symptoms we will continue to monitor Assessment & Plan (04/30/2022 12:58 PM EST): Will order echocardiogram to assess cardiac function and Rt sided pressures Post-COVID chronic wiefbud5904/30/2022 Assessment & Plan (06/25/2022 2:49 PM EDT): Currently patient feels well states the symptoms have improved Assessment & Plan (04/30/2022 12:59 PM EST): Referral to pulmonary Ordered PFT to assess pulm function Thoracic spondylosis without guhcbkxvpj33/13/2022 Overview (04/30/2022): Added automatically from request for surgery [id number] Lumbosacral spondylosis without cmefhuzoph47/25/2020 Overview (04/30/2022): Added automatically from request for surgery [id number] Disc displacement, hdqigj6906/07/2019 Overview (04/30/2022): Added automatically from request for surgery [id number] Osteoarthritis of left hip04/05/2019 Overview (04/30/2022): Added automatically from request for surgery [id number] Iliac crest bone pain01/10/2019Lumbar wajmyhox32/16/2019Trochanteric bursitis of left hip11/29/2018Disorder of yaptvw3810/16/2018 Overview (04/30/2022): Added automatically from request for surgery [id number] Encounters DateTypeDepartmentCare OkjjKolmahowtqo39/16/2025Results Follow-Up [facility] Heart Station [address] [place] [address] Itzel Portillo CNP Vascular US carotid artery duplex ziguahcwb92/12/2025Telephone [facility] [address] [place] [facility] [address] Laura Clark MA 03/05/2025[facility] [address] [place] [address] [place] [address] Zenobia Valenzuela MA 03/05/2025[facility] [address] [place] [address] [place] [address] Zenobia Valenzuela MA 02/06/2025Orders [facility] [address] [place] [address] [place] [address] Joan Rooney MA Acute combined systolic and diastolic heart failure (CMS/HCC) (Primary Dx); A-fib (CMS/HCC)01/11/2025[facility] [address] [place] [address] [place] [address] Natasha Campo MD A-fib (CMS/HCC)01/03/2025 2:00 PM NAOMITOmargaret [facility] [address] [place] [address] [place] [address] Itzel Portillo CNP Nonrheumatic mitral valve regurgitation (Primary Dx); Carotid stenosis, bilateral; Paroxysmal atrial fibrillation (CMS/HCC); 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; PAD (peripheral artery disease); Essential hypertension; LV (left ventricular) mural krwkobxo22/09/2025[facility] [address] [place] [address] Laura Clark MA Coronary artery disease due to lipid rich plaquefrom Last 3 Months Immunizations ImmunizationAdministration DatesNext DueCovid (Pfizer) Bivalent Booster =>12 YRS 03/11/2022Influenza, High Dose Seasonal, Preservative Free01/28/2018,01/17/2015 Influenza, High-dose Seasonal, Quadrivalent, Preservative Free02/12/2022, 02/02/2021,11/30/2019Influenza, seasonal, yakvsmcsyp21/16/2014,01/10/2013 Influenza, trivalent, rnuhhelsjp46/04/2019,02/11/2017Pfizer SARS-CoV-2 Ifpzhihptvs72/12/2022,01/05/2021,05/21/2020,1Pneumococcal Conjugate PCV 13011/30/2019Pneumococcal Polysaccharide REX310012/10/2014Zoster, live03/12/2014 Family History Medical HistoryRelationNameCommentsCancerFatherDiabetesFatherRelationNameStatus CommentsFatherDeceasedMotherDeceased Social History Tobacco UseTypesPacks/DayYears UsedDateSmoking Tobacco: FormerCigarettesQuit: 2020Passive Smoke Exposure: PastSmokeless Tobacco: Never Tobacco Cessation:Counseling Given: Not Answered Passive Exposure Comments:As a kidAlcohol UseStandard Drinks/WeekCommentsYes0 (1 standard drink = 0.6 oz pure alcohol)occasionalAHVeronica UtilitiesAnswerDate Recorded In the past 12 months has the [employer], oil, or water [employer] threatened to shut off services in your home?No11/10/2023Humiliation, Afraid, Rape, and Kick questionnaireAnswerDate RecordedWithin the last year, have you been afraid of your partner or ex-partner?No11/10/2023Within the last year, have you been humiliated or emotionally abused in other ways by your partner or ex-partner?No 11/10/2023Within the last year, have you been kicked, [...] heating?Not hard at all11/10/2023HQ-2AnswerDate RecordedPatient Health Questionnaire-2 Plpcs455UT Safety & Environment AnswerDate RecordedFear of Current [...] steady place to sleep or slept in flushingelter (including now)?No11/10/2023Hunger Vital SignAnswerDate RecordedWithin the past 12 months, you worried that your food would run out before you got the money to buymore.Never true11/10/2023an Out of Food in the Last YearNot on file11/10/2023Sex and Gender InformationValueDate RecordedSex Assigned at DrhioAzlo26/09/2025 10:56 AM EDTLegal GzrXxvd7409/23/2021 10:16 PM EDTGender CcvtxuhvWvtr47/09/2025 10:56 AM EDTSexual Orientation Heterosexual or Mxcordpr87/09/2025 10:56 AM EDT Last Filed Vital Signs Vital SignReadingTime TakenCommentsBlood Tfzetuer630/6210 2:07 PM EDT Fqnms819201/03/2025 2:07 PM UIMEajmpoxlynq15.6 ??C (97.9 ??F)10/07/2023 11:10 AM EDTRespiratory Ytgg085410/13/2023 10:57 AM EDTOxygen Wxqmojzjiw24%01/03/2025 2:07 PM EDTInhaled Oxygen Concentration--Jygumj12.1 kg (170 lb)01/03/2025 2:07 PM EDT Nwjjxe148.9 cm (6')01/03/2025 2:07 PM EDTBody Mass Index23.0601/03/2025 2:07 PM EDT Plan of Treatment DateTypeDepartmentCare Team (Latest Contact Info)Qbhdtmrfycr68/11/2026 11:30 AM ESTOffice Visit [facility] [place] [address] [place] [address] Natasha Campo MD [address] [facility] [place] [address] Health MaintenanceDue DateLast DoneCommentsMedicare Annual Wellness (AWV) 1945Diabetes: Retinopathy Pcqibnaxw22/19/1957Depression Screening 1958dult Ivyogeb8109/13/1968Zoster Vaccines (1 of 2) Fall Risk Jurccesce34/19/2012Diabetes: Hemoglobin A1C409/05/2023, 10/03/2023, 05/04/2023, Additional history existsDiabetes: Urine Protein Agrtigyvt21/07/534383/OVID-19 Vaccine (2024- season)2025 03/04/2025, 02/09/2024, 04/19/2023, Additional history existsPneumococcal Vaccine: 50+ KdfgySwmcuqusz45/21/2023, 10/17/2021, 11/30/2019, Additional history existsInfluenza GjxasznYviqycbis22/08/2025, 02/09/2024, 02/15/2023, Additional history existsHIB VaccinesAged OutNo longer eligible based on patient's age to complete this topicHPV VaccinesAged OutNo longer eligible based on patient's age to complete this topicIPV VaccinesAged OutNo longer eligible based on patient's age to complete this topicMeningococcal B VaccineAged OutNo longer eligible based on patient's age to complete this topicMeningococcal VaccineAged OutNo longer eligible based on patient's age to complete this topic Rotavirus VaccinesAged OutNo longer eligible based on patient's age to complete this topic Medical Devices ImplantedTypeAreaManufacturerDevice IdentifierShelf Expiration DateModel / Serial / LotStent,Mayo Xd Mr [id number] - [id number] - [id number] Implanted:Qty: 1 on 02/28/2023 by Natasha Campo [facility] Eluting StentBoston [id number]/09/2024 [id number] / [id number] / [id number] Procedures Procedure NamePriorityDate/TimeAssociated DiagnosisCommentsECG 12 LEAD UNIT YCMSQEAWNYhimjca05/10/2025 11:54 AM EDT Paroxysmal atrial fibrillation (CMS/HCC) HEMOGLOBIN U0YMre-Qp67/08/2024 6:22 AM EDT from Last 3 Months or Most Recently Relevant to Health Maintenance Results * ECG 12 lead unit performed (01/04/2025 11:54 AM EDT)Specimen (Source) Anatomical Location / LateralityCollection Method / VolumeCollection Time Received Time Narrative Authorizing ProviderResult TypeResult StatusMellinda Portillo [facility] ORDERABLES Final Result * (ABNORMAL) Hemoglobin A1c (10/03/2023 6:22 AM EDT)ComponentValueRef RangeTest MethodAnalysis TimePerformed AtPathologist SignatureHemoglobin A1C8.5(H)4.0 - 6.0 %10/03/2023 12:43 PM [facility]Estimated Average Zbjlqcw483uq/dL10/03/2023 12:43 PM [facility]Specimen (Source)Anatomical Location / LateralityCollection Method / VolumeCollection TimeReceived TimeBloodVenous blood specimen / UnknownArterial Line / Unknown 10/03/2023 6:22 AM EDT10/03/2023 6:32 AM EDT Narrative Authorizing ProviderResult TypeResult StatusJosh Murphy CNPLAB BLOOD ORDERABLESFinal ResultPerforming OrganizationAddressCity/State/ZIP CodePhone Number [facility] [address] [place] [address] from Last 3 Months or Most Recently Relevant to Health Maintenance Insurance Advance Directives * Full Code (Latest Code Status on File) Date ActivatedDate InactivatedComments09/30/2023 6:16 PM10/07/2023 3:06 PM * Full Code Date ActivatedDate VoheceqronfGhmdeyym73/4/2023 12:54 PM02/28/2023 8:03 PM Care Teams Team MemberRelationshipSpecialtyStart DateEnd Date Marisol Boyce MD [address] [place] [address] [facility] - General04/29/22
--- OUTSIDE RECORDS SUMMARY | 2025-03-18 13:31 | XMS_ITS | Encounter Summary ---
Author Organization [facility] Address [address] [place] [address] Care Team Providers Care Car Restorer Name Role Phone Marisol Boyce MD Primary Care Provider [phone] Encounter Details DateTypeDepartmentCare Team (Latest Contact Info)Unxzdvdhzce01/16/2025Results Follow-Up [facility] Vascular Center Heart Station [address] [place] [address] Itzel Portillo CNP [address] [place] [address] Vascular US carotid artery duplex bilateral Social History Tobacco UseTypesPacks/DayYears UsedDateSmoking Tobacco: FormerCigarettesQuit: 2020Passive Smoke Exposure: PastSmokeless Tobacco: Never Passive Exposure Comments:As a kid Alcohol UseStandard Drinks/WeekCommentsYes0 (1 standard drink = 0.6 oz pure alcohol)occasionalAHC UtilitiesAnswerDate RecordedIn the past 12 months has the [employer], gas, oil, or water [employer] threatened to shut off services in your [...] heating?Not hard at all11/10/2023HQ-2AnswerDate RecordedPatient Health Questionnaire-2 Qocno138UT Safety & Environment AnswerDate RecordedFear of Current [...] steady place to sleep or slept in chesape[place]elter (including now)?No11/10/2023Hunger Vital SignAnswerDate RecordedWithin the past 12 months, you worried that your food would run out before you got the money to buymore.Never true11/10/2023an Out of Food in the Last YearNot on file11/10/2023Sex and Gender InformationValueDate RecordedSex Assigned at FkbdeLtjx81/09/2025 10:56 AM EDTLegal EvtBavf4309/23/2021 10:16 PM EDTGender JecmforrLgpl99/09/2025 10:56 AM EDTSexual Orientation Heterosexual or Ylblfxum71/09/2025 10:56 AM EDTdocumented as of this encounter Miscellaneous Notes * Result Encounter Note - Itzel Portillo CNP - 03/12/2025 9:37 AM EST Please let him know his carotid US showed stable carotid stenosis. Continue medical management. Thank you documented in this encounter Plan of Treatment DateTypeDepartmentCare Team (Latest Contact Info)Fdbwenfnxlv85/11/2026 11:30 AM ESTOffice Visit [facility] [address] [place] [address] Natasha Campo MD [address] [facility] [address] [facility] [place] [address] documented as of this encounter Visit Diagnoses Not on filedocumented in this encounter Care Teams Team MemberRelationshipSpecialtyStart DateEnd Date Marisol Boyce MD [address] [place] [address] PCP - General04/29/22documented as of this encounter
--- OUTSIDE RECORDS SUMMARY | 2025-03-18 13:31 | XMS_ITS | Clinical Summary ---
Author Organization [facility] Address [address] [place] [address] Phone Care Team Providers Care Foot Setter Name Role Phone Unavailable Primary Care Provider Unavailabl e Social History Tobacco UseTypesPacks/DayYears UsedDateSmoking Tobacco: Never AssessedSex and Gender InformationValueDate RecordedSex Assigned at BirthNot on fileLegal Sex Male02/20/2022 11:59 AM ESTGender IdentityNot on fileSexual OrientationNot on file Plan of Treatment Not on file
--- OUTSIDE RECORDS SUMMARY | 2025-03-18 13:31 | XMS_ITS | Clinical Summary ---
Author Organization [facility] Address [address] [place] [address] Care Team Providers Care Cordage Sales Representative Name Role Phone Marisol Boyce HOG SLAUGHTERER Unavailable [phone] Prabhjot Roman MD Primary Care Provider [phone] Marisol Boyce HOG SLAUGHTERER Unavailable [phone] Marisol Boyce NP Unavailable [phone] Allergies No known active allergies Medications MedicationSigDispense QuantityRefillsLast FilledStart DateEnd DateStatus atorvastatin (Lipitor) 80 MG tablet Take 80 mg by mouth in the morning.Active dapagliflozin (Farxiga) 5 MG Take by mouthActive Aspirin Low Dose 81 MG chewable tablet Chew 81 mg Daily10/07/2023ctive carvedilol (Coreg) 3.125 MG tablet Take 3.125 mg by mouth in the morning and 3.125 mg in the evening. Take with meals.10/07/2023ctive OneTouch Verio test strip 1 each by Other route Daily10/10/2023ctive amiodarone (Pacerone) 200 MG tablet Take 200 mg by mouth Daily01/02/2024ctive insulin glargine (Lantus SoloStar) 100 UNIT/ML pen Indications:Type 2 diabetes mellitus without complication, with long-term current use of insulin (HCC)Inject 50 Units under the skin Daily Pt to take up to a total of 50 units daily 45 mL 5Active lisinopril 20 MG tablet 20 mg Daily5Active metFORMIN (Glucophage) 500 MG tablet Indications:Type 2 Diabetes MellitusTake 1 tablet (500 mg) by mouth in the morning and 1 tablet (500 mg) in the evening. Take with meals. 180 tablet 5Active omeprazole (PriLOSEC) [address] capsule Indications:Palmer's esophagus with dysplasiaTake 1 capsule (40 mg) by mouth in the morning. Take before meals. 90 capsule 5Active apixaban (Eliquis) 5 MG tablet Indications:PAD (peripheral artery disease),Paroxysmal atrial fibrillation (HCC) Take 1 tablet (5 mg) by mouth in the morning and 1 tablet (5 mg) before bedtime. 180 tablet 5Active ezetimibe (Zetia) 10 MG tablet Indications:Mixed hyperlipidemiaTake 1 tablet (10 mg) by mouth at bedtime 90 tablet 5Active Active Problems ProblemNoted DateDiagnosed DateDizziness and kutckedzu94/21/2025 Assessment & Plan (09/26/2024 10:14 AM EDT): Last appt had some mild orthostatic changes in BP Cardiology had him stop amlodipine No orthostatics today ?side effect meds, vs cervical pathology, vascular? Send to see neuro Assessment & Plan (08/15/2024 12:52 PM EDT): Only notes when getting up from sitting to standing Orthostatics in office: Bxziv879/60 Sittin/56 Standin/54 I will reach out to cardiology to see if they feel an adjustment is needed in his blood pressure meds: He is also encouraged to drink more water daily Drinks decaf coffee, as well as 2 diet cokes daily Does not like the taste of water Centrilobular fzvijdrxb96/18/2025 Assessment & Plan (08/15/2024 6:43 AM EDT): Noted on imaging, does not take any medications on a regular basis Assessment & Plan (05/15/2024 6:27 AM EST): Noted on imaging, does not take any medications on a regular basis Type 2 diabetes mellitus with other specified jsmywyyunvgh59/18/2025 Assessment & Plan (08/15/2024 6:44 AM EDT): PAD, CAD, ED Assessment & Plan (05/15/2024 6:36 AM EST): PAD, CAD, ED Type 2 diabetes mellitus 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 05/15/2024Primary yhapcrjq73/18/2025 Assessment & Plan (05/15/2024 10:27 AM EST): Recommend no napping during the day, can try melatonin up to 10mg at bedtime If not helpful consider trazadone, will call if he needs it Hiatal ypfrpd6804/11/2024 Overview (04/11/2024): Noted on EGD 04/11/24 Colon cancer nakjtrgdi87/20/2024 Assessment & Plan (02/15/2024 7:38 AM EST): [...] Patient has elected to: Chronic thoracic back pain01/04/2024Other thrombophilia ([facility])11/22/2023 Assessment & Plan (11/22/2023 7:27 AM EDT): D/t blood thinners Left ventricular fpbrguer19/15/2024seudoaneurysm of left ventricle of heart 11/10/2023 Assessment & Plan (11/22/2023 1:00 PM EDT): Per cardiology Acute cough10/11/2023 Assessment & Plan (10/11/2023 12:48 PM EDT): Will check xray, no s/s heart failure Will order health trax testing, but suspect more related to colleen inhibitor change from ramipril to lisinopril If worsening contact office Other specified eehjyqxpydarid93/09/2024-fib09/30/2023 Assessment & Plan (08/15/2024 6:43 AM EDT): [...] Cont with cardiology NSTEMI (non-ST elevated myocardial infarction)09/30/2023OSA (obstructive sleep apnea)06/07/2023 Assessment & Plan (08/15/2024 6:43 AM EDT): [...] that manages your CORNELIA: Encounter for subsequent annual wellness visit (AWV) in Medicare patient 06/07/2023 [...] gave info on advanced directives as well Devqgxzlecnbdo10/12/2024 Assessment & Plan (08/15/2024 6:45 AM EDT): Continue statin Check labs yearly, and prn dose changes Assessment & Plan (05/15/2024 6:38 AM EST): Continue statin Check labs yearly, and prn dose changes Assessment & Plan (06/07/2023 11:38 AM EDT): Continue statin Cervical spinal inapxdhw93/12/2024ilateral carotid artery disease, unspecified type06/07/2023 Assessment & Plan (08/15/2024 6:44 AM EDT): Cont asa, statin Periodic monitoring with US Tubulovillous adenoma of colon06/07/2023 Assessment & Plan (02/15/2024 1:57 PM EST): Refer back to ольга Palmer dwyqphjtm56/12/2024 Overview (04/11/2024): EGD 04/11/24: barretts Assessment & Plan (02/15/2024 7:37 AM EST): Needs repeat EGD Ольга Assessment & Plan (06/07/2023 11:43 AM EDT): Will need to have repeat EGD, discussed that today, will wait and revisit in August appt d/t 's medical issues going on BPH (benign prostatic hyperplasia)06/07/2023 Overview (11/29/2023): 2022: 3.12 11/29/23: 3.19 Assessment & Plan (02/15/2024 7:35 AM EST): Continue with flomax Assessment & Plan (06/07/2023 11:43 AM EDT): Has upcoming appt with urology Erectile vzfmmnnpovq01/12/2024rimary yrtplaqblzjq71/15/2024 Assessment & Plan (09/26/2024 10:19 AM EDT): Please check blood pressure daily and record DASH diet Limit caffeine Take medication as directed Contact office if chest pain, pressure, dizziness, shortness of breath, swelling legs Recommend slow position changes Cont current meds: lisinopril, carvedilol Clarification with Zenobia at [facility] , lisinopril dose is 20mg daily, should not be filling lisinopril 5mg dose Also contacted the [facility] pharmacy to have them deactivate the lisinopril 5mg script spoke Hayden at 10:18am Assessment & Plan (08/15/2024 6:44 [...] his amlodipine, I did call Joan at [facility] cardiology and [...] EST): Stable, check labs WESTLEY (iron deficiency anemia)04/11/2023 Assessment & Plan (05/15/2024 6:37 AM EST): Check labs in 06/19 Assessment & Plan (06/07/2023 11:39 AM EDT): Continue current meds Assessment & Plan (04/11/2023 8:52 AM EST): Check labs Lumbosacral pain04/11/2023 Assessment & Plan (04/11/2023 8:53 AM EST): Follow with pain mgmt in the past, not currently If he decides we can try PT he will let me know PAD (peripheral artery disease)03/25/2023 Assessment & Plan (05/15/2024 6:35 AM EST): Continue asa and statin Assessment & Plan (02/15/2024 7:34 AM EST): Continue asa and statin Assessment & Plan (06/07/2023 11:41 AM EDT): Continue statin and plavix, tight sugar and blood pressure control Assessment & Plan (04/11/2023 8:51 AM EST): Continue with cardiology and current meds Type 2 diabetes mellitus without complication, with long-term current use of jmaqkjt8503/22/2023 Overview (02/22/2024): Per insurance approved insulin after 03/28/24: insulin glargine -yfgn (semglee) but order the insulinglargine Assessment & Plan (09/26/2024 10:15 AM EDT): [...] Reviewed his A1c 8.5% Dexcom 7 sample certification engineer and sensor given: Lot [id number] 10/25/22, sensors #2: [id number] exp 07/25/24 Currently taking 20 units of [...] carbohydrates, and simple sugars. Coronary artery disease involving [place] coronary artery of [place] heart without angina irdaieyu57/06/2023 Overview (03/02/2023): Had heart cath on 02/28/23: [...] No acute symptoms at this time COPD, /06/2023 Assessment & Plan (06/07/2023 11:40 AM EDT): Stable, Nonrheumatic mitral valve kzibagxataryc34/31/2023 Overview (06/07/2023): Last Assessment & Plan: Normal [...] Cont with cardiology Coronary artery disease of [place] artery of [place] heart with stable angina bnjyijvp38/03/2023 Overview (10/11/2023): CAD (mod 2V dz per [...] labs, and med changes Lumbosacral spondylosis without kdoxaqacxi09/25/2020 Overview (06/07/2023): Added automatically from request for surgery Added automatically from request for surgery Assessment & Plan (02/15/2024 1:59 PM EST): Will call his pain mgmt to schedule Disc displacement, jtwoie1106/07/2019 Overview (06/07/2023): Added automatically from request for surgery [id number] Added automatically from request for surgery [id number] Resolved Problems ProblemNoted DateDiagnosed DateResolved YhbkHnwfb77 Overview (10/11/2023): Common respiratory bacterial/viral infection (HTRX) Specimen swab (nasal) [id number] Lot # [id number] EXP. 11/17/2023 Tobacco user Immunizations ImmunizationAdministration DatesNext DueInfluenza, High Dose Seasonal, Preservative Free02/09/2024,01/28/2018,01/17/2015Influenza, High-dose Seasonal, Quadrivalent, Preservative Free01/31/2023,02/12/2022,02/02/2021,11/30/2019 Influenza, Ydhcqlichsm17/21/2023,10/17/2021Influenza, seasonal, injectable 03/12/2014,01/10/2013Influenza, trivalent, nomvlfwjdq29/04/2019,02/11/2017 Pneumococcal Conjugate PCV 13011/30/2019Pneumococcal Polysaccharide PPSV23 02/15/2023,10/17/2021,12/10/2014Zoster, live03/12/2014 Family History Medical HistoryRelationNameCommentsCancerFatherDiabetesFatherHeart diseaseFather RelationNameStatusCommentsFatherDeceasedMotherAlive Social History Tobacco UseTypesPacks/DayYears UsedDateSmoking Tobacco: FormerCigarettes Smokeless Tobacco: Never Tobacco Cessation:Counseling Given: Not Answered Alcohol UseStandard Drinks/WeekCommentsYes0 (1 standard drink = 0.6 oz pure alcohol)monthly or lessHumiliation, Afraid, Rape, and Kick questionnaireAnswer Date RecordedWithin the last year, have you been afraid of your partner or ex-partner?No06/07/2023Within the last year, have you been humiliated or emotionally abused in other ways by your partner or ex-partner?No06/07/2023 Within the last year, have you been kicked, hit, slapped, or otherwise physically hurt by your partner or ex-partner?No06/07/2023Within the last year, have you been raped or forced to have any kind of sexual activity by your part ner or ex-partner?No06/07/2023Social Connection and Isolation PanelAnswerDate RecordedIn a typical week, how many times do you talk on the phone with family, friends, or neighbors?More than three times a week06/07/2023How often do you get together with friends or relatives?Once a week06/07/2023How often do you attend cheondoism or yarsanism services?More than 4 times per year06/07/2023o you belong to any clubs or organizations such as cheondoism groups, unions, fraternal or athletic groups, or school groups?No06/07/2023How often do you attend meetings of the clubs or organizations you belong to?Never06/07/2023re you , , , , never , or living with a partner? 06/07/2023UDIT-CAnswerDate RecordedQ1: How often do you have a drink containing alcohol?Monthly or less06/07/2023Q2: How many drinks containing alcohol do you have on a typical day when you are drinking?Patient does not drink06/07/2023Q3: How often do you have six or more drinks on one occasion?Never06/07/2023Overall Financial Resource Strain (CARDIA)AnswerDate RecordedHow hard is it for you to pay for the very basics like food, housing, medical care, and heating?Not hard at all06/07/2023HQ-2AnswerDate RecordedPatient Health Questionnaire-2 Score0 08/15/2024[facility] Occup[facility] - Occupational Stress QuestionnaireAnswerDate RecordedDo you feel stress - tense, restless, nervous, or anxious, or unable to sleep at night because yourmind is troubled all the time - these days?To some yopwuk6106/07/2023Exercise Vital SignAnswerDate Recorded On average, how many days per week do you engage in moderate to strenuous exercise (like a brisk walk)?0 days06/07/2023On average, how many minutes do you engage in exercise at this level?0 min06/07/2023Hunger Vital SignAnswerDate RecordedWithin the past 12 months, you worried that your food would run out before you got the money to buymore.Never true06/07/2023Within the past 12 months, the food you bought just didn't last and you didn't have money to get more.Never true06/07/2023RAPARE - TransportationAnswerDate RecordedIn the past 12 months, has lack of transportation kept you from medical appointments or from getting medications?No06/07/2023In the past 12 months, has lack of transportation kept you from meetings, work, or from getting things needed for daily living?No06/07/2023Housing Stability Vital SignAnswerDate RecordedIn the last 12 months, was there a time when you were not able to pay the mortgage or rent on time?No06/07/2023In the last 12 months, how many places have you lived?1 06/07/2023In the last 12 months, was there a time when you did not have a steady place to sleep or slept in ashelter (including now)?No06/07/2023Sex and Gender InformationValueDate RecordedSex Assigned at BirthNot on fileLegal SexMale 06/09/2022 6:36 PM EDTGender IdentityNot on fileSexual OrientationNot on file Last Filed Vital Signs Vital SignReadingTime TakenCommentsBlood Pgartmts893/6007 8:53 AM EDT Fprjk6024/02/2025 8:53 AM NULHztkczdfwvb87.6 ??C (97.8 ??F)09/26/2024 8:53 AM EDTRespiratory Uzka825109/26/2024 8:53 AM EDTOxygen Aimizdtxcg88%09/26/2024 8:53 AM EDTInhaled Oxygen Concentration--Jehmcz28.1 kg (167 lb 12.8 oz)09/26/2024 8:53 AM DNHZzerpw785.9 cm (6')05/15/2024 9:26 AM ESTBody Mass Index22.76 05/15/2024 9:26 AM EST Plan of Treatment Health MaintenanceDue DateLast DoneCommentsCT Lgrgnqxvxkis88/19/1947FIT-DNA 1946FIT1946 1448Cjnngifarivxw48/19/2719BSQW12/iabetes: Hemoglobin A1C/, 03/13/2024, 11/29/2023, Additional history existsCOVID-19 Vaccine ( season)/, 04/19/2023, 03/11/2022, Additional history existsInfluenza Vaccine (#1)/, 02/15/2023, 01/31/2023, Additional history existsDiabetes: Urine Protein Rtzclwbcn74/, 05/04/2023, 05/04/2023, Additional history exists Medicare Annual Wellness (AWV)/, 08/15/2024, 06/07/2023, Additional history existsDiabetes: Retinopathy Peqklgkhk95/04/2024 Pugqokqrheu14, 10/26/2018Colorectal Cancer Nmtlwvuwd01/15/2030 Pneumococcal Vaccine: 65+ QnzqaWdcixlkdp99/21/2023, 10/17/2021, 11/30/2019, Additional history exists Procedures Procedure NamePriorityDate/TimeAssociated DiagnosisComments[facility] [place] SYXD3WZjxlesy 07/11/2024 1:55 PM EDT MICROALBUMIN / CREATININE URINE YNYVRAmsuufm83/07/2024 8:58 AM EST from Last 3 Months or Most Recently Relevant to Health Maintenance Results * (ABNORMAL) [facility] [place] HGBA1C (07/11/2024 1:55 PM EDT)ComponentValueRef RangeTest MethodAnalysis TimePerformed AtPathologist SignatureMCALESTER REGIONAL [facility]ALTH [facility] [place] HEMOGLOBIN A1C/HEMOGLOBIN.TOTAL:MFR:PT:BLD:QN:6.3(H)<=5.9 %[facility] CENTERpecimen (Source) Anatomical Location / LateralityCollection Method / VolumeCollection Time Received XoybXdcmd05/16/2025 1:55 PM EDT07/11/2024 5:55 PM EDT Narrative [facility] - 07/11/2024 9:48 PM EDT Original Ordering Provider: ELO BOYCE Authorizing ProviderResult TypeResult Ben Boyce NPCLINISYNCFinal ResultPerforming OrganizationAddressCity/State/ZIP CodePhone Number [facility] [place] * Microalbumin / creatinine urine ratio (05/04/2023 8:58 AM EST)ComponentValue Ref RangeTest MethodAnalysis TimePerformed AtPathologist Signature MICROALBUMIN, URINE<0.70.0 - 1.9 mg/dLPROMEDICAURINE GWEXN738.56mg/dLPROMEDICA ALB/CREAT RATIONOT CALCULATED0.0 - 30.0 mg/g creatPROMEDICAComment: Result for Albumin/Creatinine Ratio cannot be reliably calculated because urine albumin and or urine creatinine is below the detection limit of the assay. ?? PERFORMED AT [facility] [address],[place] [address] Specimen (Source)Anatomical Location / LateralityCollection Method / Volume Collection TimeReceived Time05/04/2023 8:58 AM EST05/04/2023 9:00 AM EST Narrative Authorizing ProviderResult TypeResult Ben Boyce NPLAB URINE ORDERABLES Final ResultPerforming OrganizationAddressCity/State/ZIP CodePhone Number [place] from Last 3 Months or Most Recently Relevant to Health Maintenance Insurance Care Teams Team MemberRelationshipSpecialtyStart DateEnd Date Prabhojt Roman MD PCP - GeneralFamily Medicine06/07/23 Marisol oByce NP [address] [place] [address] PCP - ACO Reach05/04/24 Marisol Boyce NP Nurse PractitionerFanyly Medicine03/28/22 Marisol Boyce NP Nurse Practitionermily Medicine06/07/23
== END 2025-03-18 13:30 | disposition home or self-care (01) ==
LOC: CT 13:29
PROVIDERS: PCP Nurse Practitioner; Visit Provider Urology
DX: M54.9 Dorsalgia, unspecified (principal); Z87.442 Personal history of urinary calculi; N28.1 Cyst of kidney, acquired; K57.90 Diverticulosis of intestine, part unspecified, without perforation or abscess without bleeding
CPT/HCPCS: 74176